=== PATIENT | female | born 1940 | race Caucasian/White ===

== ENCOUNTER 2022-12-08 09:46 | Outpatient (OUT) | payer MEDICARE, SELFPAY ==
--- NOTE | 2022-12-08 10:21 | US_ITS ---
[address] [address] Patient Name: ELGIN NORWOOD MRN: [id number] date: 1940 Sex: F Assigned Patient Location: US Current Patient Location: US Accession/Order Number: [id number] Exam Date: 12/08/2022 10:22 Report Date: 12/09/2022 06:56 At the request of: BEL OJEDA Procedure: US thyroid EXAMINATION: US thyroid HISTORY: Multinodular goiter E04.2 COMPARISON: No relevant comparison available. FINDINGS: RIGHT LOBE: Prior thyroidectomy. Stable 4 x 4 x 3 mm hyperechoic nodule within fossa. Lobe size: LEFT LOBE: Heterogeneous echotexture with slight increase in size of a 16 x 11 x 9 mm TR 4 nodule within mid body. Stable 3 x 2 x 2 mm TR 4 nodule within superior pole and stable 8 x 6 x 6 mm TR 3 nodule within inferior pole. Lobe size: 3.6 x 1.2 x 1.5 cm ISTHMUS: Heterogeneous echotexture with minimal thickening. Thickness: 4 mm IMPRESSION: 1. Right thyroidectomy and stable 4 mm nonspecific hyperechoic nodule or residual tissue within fossa. 2. Slight interval increase in size of a 16 mm TR 4 nodule within left lobe. Consider tissue sampling. Alternatively follow-up imaging in one year should be performed TR4 (moderately suspicious): If > 1.0 cm Follow-up ultrasound in 1, 2, 3, and 5 years. If > 1.5 cm fine needle aspiration (FNA). Electronically authenticated by: AMAYA GRAMAJO Date: 12/09/2022 06:56
== END 2022-12-08 09:47 ==
LOC: US 09:50
PROVIDERS: PCP Internal Medicine; Visit Provider Otolaryngology
DX: E04.2 Nontoxic multinodular goiter (principal)
CPT/HCPCS: 76536

== ENCOUNTER 2023-06-01 09:41 | Outpatient (OUT) | payer MEDICARE, SELFPAY ==
--- NOTE | 2023-06-01 09:51 | US_ITS ---
[address] [address] Patient Name: ELGIN NORWOOD MRN: [id number] date: 1940 Sex: F Assigned Patient Location: US Current Patient Location: US Accession/Order Number: [id number] Exam Date: 06/01/2023 09:55 Report Date: 06/01/2023 10:38 At the request of: BEL OJEDA Procedure: US thyroid EXAMINATION: US thyroid HISTORY: Multinodular Goiter E04.2 COMPARISON: 12/08/2022 on 05/29/2022 TECHNIQUE: Sonographic images of the thyroid gland were obtained. FINDINGS: The right thyroid lobe is surgically absent. Again demonstrated is a small area of hyperechogenicity in the right thyroid fossa measuring 4.7 x 3.3 x 2.2 mm, stable. The thyroid isthmus measures 3.5 mm, heterogeneous. No focal nodule. The left thyroid lobe measures 3.3 x 1.2 x 1.7 cm. Heterogeneous echotexture. 3 focal nodules one measuring over 1 cm 1.4 x 1.1 x 0.9 cm. Mixed solid and cystic, hypoechoic, wide, smooth margins, punctate calcifications. TR 4 US/US thyroid IMPRESSION: 1.4 cm left thyroid TR 4 nodule, stable from the prior exam, minimally enlarged from the May 2022 exam TI-RADS: The [employer] TI-RADS committee's white paper recommendations for thyroid lesions classified as TR4 (moderately suspicious) are listed below: > 1.0 cm. Follow-up ultrasound in 1, 2, 3, and 5 years. > 1.5 cm. FNA. J. Am Nikunj Radiol 2017;14:587-595. Electronically authenticated by: CARLOS SOOD Date: 06/01/2023 10:38
== END 2023-06-01 09:42 | disposition home or self-care (01) ==
LOC: US 09:41
PROVIDERS: PCP Internal Medicine; Visit Provider Otolaryngology
DX: E04.2 Nontoxic multinodular goiter (principal)
CPT/HCPCS: 76536

== ENCOUNTER 2023-08-02 11:21 | Observation (INO) | payer MEDICARE, SELFPAY ==
[2023-08-02] VITALS (9 sets, daily range): BP systolic 96–136; BP diastolic 54–75; PULSE 70–98; RESP 12–20; TEMP 36.1–37; O2SAT 95–98; BMI 34.1; BMI 30.4
--- NOTE | 2023-08-02 11:49 | CT_ITS ---
The [address] [address] Patient Name: ELGIN NORWOOD MRN: [id number] date: 1940 Sex: F Assigned Patient Location: ER Current Patient Location: ER Accession/Order Number: [id number] Exam Date: 08/02/2023 12:15 Report Date: 08/02/2023 13:35 At the request of: JORGE JEFFRIES Procedure: CT abdomen pelvis wo con CT ABDOMEN AND PELVIS WITHOUT CONTRAST: 08/02/2023 12:15 PM EST Clinical Data: constipation and urine retension Comparison: 02/29/2020 Unenhanced helically acquired data per protocol. The lack of IV contrast material hampers evaluation of the viscera, for adenopathy, and of the vasculature. The lack of oral contrast medium to some extent hampers evaluation of the bowel. All CT scans at this facility use dose modulation, iterative reconstruction, and/or weight based dosing when appropriate to reduce radiation dose to as low as reasonably achievable. FINDINGS: LOWER THORAX: There is atelectasis or scarring bilaterally. Mild amount of pericardial fluid anteriorly is again demonstrated. LIVER: No acute findings. SPLEEN: No acute findings. GB/BILIARY: Again, layering sludge or calculi. Gallbladder is not thickened. Biliary tree is not dilated. PANCREAS: No acute findings. ADRENALS: No acute findings. KIDNEYS/URETERS: Again, tiny right renal calculus. No hydronephrosis or hydroureter. VESSELS: No AAA. Again, significant amount of calcific plaque distal aorta extending into the common iliacs. Stent in the distal left common iliac is again present. ABDOMINAL NODES: No obvious adenopathy. PELVIC NODES: No obvious adenopathy. BLADDER: Contains a catheter. Small amount of fluid and air in the bladder. REPRODUCTIVE: Uterus is absent. Neither ovary is clearly discerned as a distinct structure. PERITONEUM: No free air. No free fluid. EXTRAPERITONEUM: Nonspecific modest stranding posterior to the supralevator rectum was not evident on the prior exam. The posterior margins of the supralevator rectum are not thickened. BOWEL: Nonspecific bowel gas pattern. No obvious obstruction. Fair amount of stool in in the supralevator rectum. Moderate amount of air and stool throughout much of the transverse colon. Small bowel is not distended. It does contain several air-fluid levels. Previous gastric surgery again demonstrated. The stomach contains a modest amount of air and fluid. Potential concentric thickening of the infra levator rectum.. Alternatively this is under distention . BODY WALL: Mesh work anteriorly in the midline and to the right of midline. The intra-abdominal wall is thin and lax. No ruiz hernia is apparent. BONES: No acute findings. OTHER: No acute findings. CT/CT abdomen pelvis wo con IMPRESSION: 1. Nonspecific bowel gas pattern without obvious obstruction. Serial imaging if indicated. 2. Potential circumferential thickening of the infra levator rectum. 3. There is modest nonspecific stranding posterior to the supralevator rectum. Supralevator rectum is not thickened. It does contain a moderate amount stool.. 4. Again, cholelithiasis or dense sludge in the gallbladder. No evidence of cholecystitis at CT. Electronically authenticated by: KENNETH HEBERT Date: 08/02/2023 13:35
--- NOTE | 2023-08-02 11:50 | ED.ABDPAIN1 ---
HPI - Abdominal Pain General Chief Complaint: Abdominal Pain Stated Complaint: CONSTIPATION Time Seen by Provider: 08/02/23 11:35 Source: patient and family Mode of arrival: Wheelchair Limitations: no limitations History of Present Illness HPI narrative: The patient is a poor historian and she is coming from home brought to us by her son who lives with her. The main complaint that she came with was the fact that she has not been able to urinate for the last few hours in addition to not having bowel movement for a while. The patient did not specify how long she has been constipated she was denying any nausea or vomiting or any abdominal pain. Her last meal was this morning with no difficulty swallowing and no nausea or vomiting. The patient upon presentation had distended bladder and she had a Menjivar catheter placed after 600 cc of urine detected on the scan No fever or chills the patient have a history of COPD and she mentioned that she have her baseline cough with noted to breathing and no sputum production. Related Data Home Medications Medication Instructions Recorded Confirmed alprazolam 0.25 mg tablet 0.25 mg PO .2 times per day PRN 08/02/23 08/02/23 anxiety aspirin 81 mg chewable tablet 81 mg PO DAILY 08/02/23 08/02/23 (Dalton Chewable Low Dose Aspirin) atorvastatin 40 mg tablet 40 mg PO DAILY 08/02/23 08/02/23 brexpiprazole 2 mg tablet (Rexulti) 2 mg PO DAILY 08/02/23 08/02/23 bupropion HCl (smoking deter) 150 150 mg PO .Q12hr 08/02/23 08/02/23 mg tablet,12 hr sustained-release(smoking deterrent) carvedilol 12.5 mg tablet 12.5 mg PO Q12H 08/02/23 08/02/23 duloxetine 60 mg capsule,delayed 60 mg PO DAILY 08/02/23 08/02/23 release furosemide 40 mg tablet 40 mg PO DAILY 08/02/23 08/02/23 gabapentin 100 mg capsule 200 mg PO Q12H 08/02/23 08/02/23 lisinopril 5 mg tablet 5 mg PO .Q24HR 08/02/23 08/02/23 loratadine 10 mg tablet 10 mg PO Q24H 08/02/23 08/02/23 Allergies Allergy/AdvReac Type Severity Reaction Status Date / Time No Known Drug Allergies Allergy Verified 08/02/23 11:28 Review of Systems ROS Status of ROS 10 or more systems reviewed and unremarkable except as noted in history and below PFSH [facility] Social History Smoking status: Former smoker Exam Narrative Exam Narrative: Nurses notes and vital signs reviewed and patient is not hypoxic. General: Well-appearing and in no apparent distress. Skin: Warm, dry, no pallor noted. No rash. Head: Normocephalic, atraumatic. Neck: Supple, non-tender. Eye: Pupils are equal, round and EOMI. No scleral icterus. Ears, Nose, Mouth, and Throat: TM are clear, no nasal mucosal hypertrophy. Oral mucosa is moist, no posterior oropharynx erythema, uvula is mid-line Cardiovascular: Regular Rate and Rhythm without murmur, gallop or rub. Respiratory: No accessory muscle use or respiratory distress. Lungs there is distant breathing sounds and the normal airway in the upper lung diehl Chest Wall: no tenderness Back: No midline thoracic or lumbar vertebral tenderness. No CVA tenderness Musculoskeletal: Chronic edema noted in both legs no redness no hotness no signs of infection or wounds. The patient have a bruise in the right aspect as well as the distal aspect of her thigh GI: Abdomen is soft, non-distended. Normal bowel sounds. No masses appreciated. No tenderness to palpation. No rebound, guarding, or rigidity noted. Neurological: A&O x4. No cranial nerve dysfunction observed. The patient have bilateral leg weakness It also noted that the patient rectal examination shows no fecal impaction Constitutional Vital Signs, click to edit/add: Last Vital Signs Temp 97.0 F L 08/02/23 11:29 Pulse 77 08/02/23 14:03 Resp 16 08/02/23 14:03 BP 117/64 08/02/23 14:03 Pulse Ox 97 08/02/23 14:03 O2 Del Method Room Air 08/02/23 12:29 Course Vital Signs Vital signs: Vital Signs Temperature 97.0 F L 08/02/23 11:29 Pulse Rate 98 H 08/02/23 11:29 Respiratory Rate 18 08/02/23 11:29 Blood Pressure 120/69 08/02/23 11:29 Pulse Oximetry 98 08/02/23 11:29 Oxygen Delivery Method Room Air 08/02/23 11:29 Temperature 97.0 F L 08/02/23 11:29 Pulse Rate 77 08/02/23 14:03 Respiratory Rate 16 08/02/23 14:03 Blood Pressure 117/64 08/02/23 14:03 Pulse Oximetry 97 08/02/23 14:03 Oxygen Delivery Method Room Air 08/02/23 12:29 MDM - Abdominal Pain MDM Narrative Medical decision making narrative: Upon arrival the patient had a Menjivar catheter placed because that she had 600+ of cc of urine in her bladder and the catheter ended up with 900 cc of urine The CBC and chemistry showed no acute significant pathology and the patient urinalysis shows no UTI CAT scan of the abdomen showed that the patient have constipation It was noted that the patient is very frail and have muscular deconditioning she need more than 1 person help to get to the bathroom as well as she needed that to get out of the car. According to the son she used to have home health care and that was very helpful right now she does not. She did had a fall not long time ago when she had a bruise to her right side but it was noted on examination that she have bruising to both sides which could be a sign of multiple falls or maybe 1 fall. Right now the patient does have constipation in addition to urinary retention but with the fact that she have muscular deconditioning and there is no safe discharge for this patient as she is not having enough home health care the patient will be admitted for further evaluation for home physical therapy and rehab Patient case discussed with and he agreed with above-mentioned plan Lab Data Labs: Lab Results 08/02/23 08/02/23 Range/Units 11:44 12:05 WBC 10.0 (4.0-11.0) 10^3/uL RBC 3.81 L (4.20-5.40) 10^6/uL Hgb 11.3 L (12.0-16.0) g/dL Hct 36.9 (36.0-48.0) % MCV 96.9 (81.0-99.0) fL MCH 29.7 (26.7-34.0) pg MCHC 30.6 (29.9-35.2) g/dL RDW 13.9 (11.0-15.0) % Plt Count 139 L (150-450) 10^3/uL MPV 10.6 (9.5-13.5) fL Neut % (Auto) 77.6 H (43.0-75.0) % Lymph % (Auto) 15.1 L (20.5-60.0) % [place] % (Auto) 4.8 (1.7-12.0) % Eos % (Auto) 1.6 (0.9-7.0) % Baso % (Auto) 0.6 (0.2-2.0) % Neut # (Auto) 7.7 H (1.4-6.5) 10^3/uL Lymph # (Auto) 1.5 (1.2-3.8) 10^3/uL [place] # (Auto) 0.5 (0.3-0.8) 10^3/uL Eos # (Auto) 0.2 (0.0-0.7) 10^3/uL Baso # (Auto) 0.1 (0.0-0.1) 10^3/uL Abs Immat Gran (auto) 0.03 (0.00-0.03) 10^3/uL Imm/Tot Granulo (auto) 0.3 (0.0-0.5) % Sodium 141 (136-145) mmol/L Potassium 4.1 (3.5-5.1) mmol/L Chloride 105 (98-107) mmol/L Carbon Dioxide 28.7 (21.0-32.0) mmol/L Anion Gap 11.4 BUN 12.0 (7.0-18.0) mg/dL Creatinine 1.08 H (0.55-1.02) mg/dL Est GFR ( Amer) 59 L (>=60) Est GFR (Non-Af Amer) 49 L (>=60) BUN/Creatinine Ratio 11.1 Glucose 110 H (74-106) mg/dL Calcium 8.9 (8.5-10.1) mg/dL Total Bilirubin 0.5 (0.2-1.0) mg/dL AST 15 (15-37) U/L ALT 14 (14-59) U/L Alkaline Phosphatase 92 (46-116) U/L Total Protein 6.4 (6.4-8.2) g/dL Albumin 2.9 L (3.4-5.0) g/dL Globulin 3.5 g/dL Albumin/Globulin Ratio 0.8 Urine Color Lt. yellow (YELLOW) Urine Clarity Clear (CLEAR) Urine pH 5.5 (5.0-9.0) Ur Specific [place] 1.010 (1.005-1.025) Urine Protein Negative (NEG/TRACE) mg/dL Urine Glucose (UA) Negative (NEGATIVE) mg/dL Urine Ketones Negative (NEGATIVE) mg/dL Urine Occult Blood Negative (NEGATIVE) Urine Nitrite Negative (NEGATIVE) Urine Bilirubin Negative (NEGATIVE) Urine Urobilinogen 0.2 (0.2-1.0) EU/dL Ur Leukocyte Esterase Negative (NEGATIVE) Discharge Plan Discharge Chief Complaint: Abdominal Pain Clinical Impression: Muscular deconditioning, Insufficient home care support, Acute retention of urine Constipation Qualifiers: Constipation type: unspecified constipation type Qualified Code(s): K59.00 - Constipation, unspecified Patient Disposition: Admitted as Observation Time of Disposition Decision: 14:14 Condition: Good
--- OUTSIDE RECORDS SUMMARY | 2023-08-02 11:54 | XMS_ITS | CCD ---
Author Name Unknown Address [id number] [place] [address] Organization [facility] Care Team Providers Care Swage Toolsetter Name Role Phone Unavailable Unavailable Libra, Dr. Durbin Attending Unavaila tere Landers II, Ysosi Meyer [facility] Care Unavail able Libra, Dr. Durbin Referring Unavaila tere Smyth, Dr. Durbin Attending Unavaila tere Landers II, Yossi Meyer Primary Care Unavail able CARMEN ., TANYA Attending Unavailable CARMEN ., TANYA Admitting Unavailable GRECHNY ., PHILIP HERNANDEZ Consulting Unavailabl e JORDAN, DR TERRAZAS Primary Care Unavailable AHOTKAELA Consulting Unavailable JUAN M ., STELLA Consulting Unavailable SISTER, SYLVESTER Consulting Unavailable CARMEN ., TANYA Consulting Unavailable PAVEL SANCHEZ Consulting Unavailable ALLISON MCCALL Consulting Unavailable JORDAN, DR TERRAZAS Consulting Unavailable JORDAN, DR TERRAZAS Primary Care Unavailable JORDAN, DR TERRAZAS Attending Unavailable JORDAN, DR TERRAZAS Admitting Unavailable AVILA, DR AMAYA [place] Consulting Unavailable JORDAN, DR TERRAZAS Consulting Unavailable JORDAN, DR TERRAZAS Primary Care Unavailable JORDAN, DR TERRAZAS Attending Unavailable JORDAN, DR TERRAZAS Admitting Unavailable BARRIE, DR CARLOS Mcghee Consulting Unavailable TIMMIS, ARACELI Consulting Unavailable JORDAN, DR TERRAZAS Primary Care Unavailable TIMMISARACELI Attending Unavailable TIMMIS, ARACELI Admitting Unavailable ZIEBER, DR AMAYA [place] Consulting Unavailable TIMMIS, ARACELI Consulting Unavailable JORDAN, DR TERRAZAS Primary Care Unavailable TIMMIS, ARACELI Attending Unavailable TIMMIS, ARACELI Admitting Unavailable BARRIE, DR CARLOS Mcghee Consulting Unavailable KARYN WASHINGTON Consulting Unavailable JORDAN, DR TERRAZAS Primary Care Unavailable HEMYING, DR JOSE EDUARDO Bryant Attending Unavailable HEMMER, DR JOSE EDUARDO Bryant Admitting Unavailable DR JOSE EDUARDO MASON Consulting Unavailable LAYNE TERRAZAS Consulting Unavailable LAYNE TERRAZAS Attending Unavailable LAYNE TERRAZAS Admitting Unavailable DR YOSSI LANDERS Primary Care Unavailable DUANE BILLINGSLEY Consulting Unavailable AMAYA FRENCH Consulting Unavailable VIKY WILLIAMSON Consulting Unavailable REED LYNNE Consulting Unavailable ARACELI OJEDA Attending Unavailable YOSSI LANDERS Attending Unavailable Yossi Landers MD Primary Care Provider Yossi Landers MD Unavailable Allergies Allergy Classification Reported Allergen(s) Allergy Type Date of Onset Reaction(s) Facility (6 sources) Naproxen; 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: [Aleve TABS] Drug Allergy 12-13-2020 Hives [facility] [employer] DO Work Phone: (5 sources) rofecoxib; 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: [Vioxx] Drug Allergy Anaphylaxis [place] [id number] DO Work Phone: (1 source) Benztropine Drug Allergy 06-14-2021 [facility] (1 source) Naproxen Drug Allergy 03-25-2013 [facility] (1 source) Naproxen Drug Allergy 06-14-2021 [facility] (1 source) rofecoxib Drug Allergy 03-25-2013 [facility] (1 source) Benztropine Drug Allergy 11-30-2019 Other [facility] (1 source) Benztropine Drug Allergy 11-30-2019 [facility] Work Phone: Medications Current Medications Medication Drug Class(es) Dates Sig (Normalized) Sig (Original) acetaminophen 325 mg / HYDROcodone bitartrate 7.5 mg oral tablet (6 sources) Opioid Agonist Start: 07-01-2023 take 1 tablet by mouth every six hours for pain HYDROcodone-acetami nophen ([place]) 7.5-325 MG tablet Indications: Degenerative lumbar spinal stenosis Take 1 tablet by mouth every 6 (six) hours if needed for severe pain 120 tablet 0 07/01/2023 Active Start: 10-14-2021 take 1 tablet by sky three times daily as needed for pain HYDROcodone-Acetaminophen 7.5-325 MG Ora l Tablet TAKE 1 TABLET 3 TIMES DAILY NEEDED FOR PAIN. Quantity: 0 Refills: 0 Ordered: 14-Oct-2021 DO Start : 14-Oct-2021 Active [id number] 200 actuat albuterol 0.09 mg/actuat metered dose inhaler (2 sources) beta2-Adrenergic Agonist albuter ol (2.5 MG/3ML) 0.083% nebulizer solution Take 2.5 mg by nebulization every 8 (eight) hours if needed. 0 Active take 2 puff(s) by in halation every four hours albuterol HFA (ProAir HFA) 90 mcg/act inhaler Inhale 2 puffs every 4 (four) hours if needed. 0 Active ALPRAZolam 0.25 mg oral tablet (6 sources) Benzodiazepine Start: 07-01-2023 take 1 tablet by mouth twice daily as needed for anxiety ALPRAZolam (Xanax) 0.25 MG tablet Indications: Depression with anxiety Take 1 tablet (0.25 mg) by mouth 2 (two) times a day as needed for anxiety 60 tablet 3 07/01/2023 Active Start: 10-07-2021 take 1 tablet by ksy th twice daily as needed for anxiety ALPRAZolam 0.25 MG Oral Tablet TAKE 1 TABLET BY MOUTH TWICE DAILY NEEDED FOR ANXIETY Quantity: 60 Refills: 0 Ordered: 11-Oct-2021 DO Start : 07-Oct-2021 Active aspirin 81 mg delayed release oral tablet (6 sources) Platelet Aggregation Inhibitor, Nonsteroidal Anti-inflammatory Drug take 1 tablet by mouth once daily aspirin 81 MG EC tablet Take 81 mg by mouth 1 (one) time each day at the same time. 0 Active atorvastatin 40 mg oral tablet (6 sources) HMG-CoA Reductase Inhibitor Start: 023 End: 024 take 1 tablet by mouth in the morning atorvastatin (Lipitor) 40 MG tablet Indications: Mixed hyperlipidemia (CMS/HCC) Take 1 tablet (40 mg) by mouth in the morning. 90 tablet 3 11/24/2022 11/24/2023 Active Start: 08-21-2021 take 1 tablet by sky th once daily Atorvastatin Calcium 40 MG Oral Tablet TAKE 1 TABLET BY MOUTH EVERY DAY Quantity: 90 Refills: 3 Ordered: 15-Oct-2021 Xochitl Smyth MD Start : 21-Aug-2021 Active Blood Glucose Monitoring Suppl (ONE TOUCH ULTRA 2) w/Device kit (1 source) Start: 11-05-2022 Blood Glucose Monitoring Suppl (ONE TOUCH ULTRA 2) w/Device kit Inject under the skin 1 (one) time each day. 0 11/05/2022 Active brexpiprazole 2 mg oral tablet (6 sources) Atypical Antipsychotic Start: 11-24-2022 End: 11-24-2023 take 1 tablet by mouth in the morning Brexpiprazole (Rexulti) 2 MG tablet Indications: Depression with anxiety Take 2 mg by mouth in the morning. 90 tablet 3 11/24/2022 11/24/2023 Active Start: 08-17-2021 take 1 tablet by sky th once daily Rexulti 2 MG Oral Tablet TAKE 1 TABLET BY MOUTH EVERY DAY FOR 90 DAYS Quantity: 90 Refills: 0 Ordered: 19-Aug-2021 DO Start : 17-Aug-2021 Active smoking cessation 12 hr buPROPion hydrochloride 150 mg extended release oral tablet (6 sources) Aminoketone Start: 11-24-2022 End: 11-24-2023 take 1 tablet by mouth every twelve hours in the morning buPROPion (Zyban) 150 MG 12 hr tablet Indications: Depression with anxiety Take 1 tablet (150 mg) by mouth in the morning and 1 tablet (150 mg) before bedtime. 180 tablet 3 11/24/2022 11/24/2023 Active Start: 05-01-2021 take 1 tablet by sky th twice daily buPROPion HCl ER (Smoking Det) 150 MG Oral Tablet Extended Release 12 Hour TAKE 1 TABLET BY MOUTH TWICE A DAY Quantity: 180 Refills: 0 Ordered: 01-Aug-2021 DO Start : 01-May-2021 Active carvedilol 12.5 mg oral tablet (6 sources) alpha-Adrenergic Mayco, beta-Adrenergic Mayco Start: 01-08-2023 take 1 tablet by mouth twice daily at mealtime carvedilol (Coreg) 12.5 MG tablet Indications: 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) TAKE 1 TABLET BY MOUTH TWICE A DAY WITH FOOD 180 tablet 3 01/08/2023 Active Start: 01-14-2021 take 1 tablet by sky th twice daily at mealtime Carvedilol 12.5 MG Oral Tablet take 1 tablet by mouth twice a day with food Quantity: 180 Refills: 3 Ordered: 15-Oct-2021 Xochitl Smyth MD Start : 14-Jan-2021 Active DULoxetine 60 mg delayed release oral capsule (6 sources) Serotonin and Norepinephrine Reuptake Inhibitor Start: 11-24-2022 End: 11-24-2023 take 1 capsule by mouth in the morning DULoxetine (Cymbalta) [address] capsule Indications: Depression with anxiety Take 1 capsule (60 mg) by mouth in the morning. 90 capsule 3 11/24/2022 11/24/2023 Active Start: 07-30-2021 take 1 capsule by [facility] once daily DULoxetine HCl - 60 MG Oral Capsule Delayed Release Particles TAKE 1 CAPSULE BY MOUTH EVERY DAY Quantity: 90 Refills: 0 Ordered: 30-Jul-2021 DO Start : 30-Jul-2021 Active eye vitamin supplement (Ocuvite Eye Health Formula) capsule (1 source) take 1 capsule by mouth in the morning eye vitamin supplement (Ocuvite Eye Health Formula) capsule Take 1 capsule by mouth in the morning. 0 Active fluticasone propionate 0.05 mg/actuat metered dose nasal spray (1 source) Corticosteroid Start: 3 End: 4 take 1 spray(s) nasal route in the morning fluticasone (Flonase Allergy Relief) 50 MCG/ACT nasal spray Indications: Chronic allergic rhinitis Administer 1 spray into each nostril in the morning. 16 g 11 11/24/2022 11/24/2023 Active gabapentin 100 mg oral capsule (6 sources) Anti-epileptic Agent Start: 4 End: 5 take 2 capsules by mouth in the morning gabapentin (Neurontin) 100 MG capsule Indications: Type 2 diabetes mellitus with diabetic neuropathy, without long-term current use of insulin (CMS/HCC) Take 2 capsules (200 mg) by mouth in the morning and 2 capsules (200 mg) before bedtime. 360 capsule 3 07/24/2023 07/23/2024 Active Start: 10-18-2020 take 2 capsules by out twice daily Gabapentin 100 MG Oral Capsule TAKE 2 CAPSULES TWICE A DAY Quantity: 360 Refills: 0 Ordered: 24-Richi-2022 DO Start : 18-Oct-2020 Active ipratropium bromide 0.042 mg/actuat metered dose nasal spray (1 source) Anticholinergic take 2 spray(s) nasal route in the morning, then take 2 spray(s) nasal route in the evening, then take 2 spray(s) nasal route at bedtime ipratropium (Atrovent) 0.06 % nasal spray Administer 2 sprays into each nostril in the morning and 2 sprays in the evening and 2 sprays before bedtime. 0 Active levothyroxine sodium 0.1 mg oral tablet (6 sources) l-Thyroxine Start: End: take 1 tablet by mouth before mealtime levothyroxine (Synthroid, Levoxyl) 100 MCG tablet Indications: Acquired hypothyroidism (CMS/HCC) Take 1 tablet (100 mcg) by mouth in the morning. Take before meals. 90 tablet 3 11/24/2022 11/24/2023 Active Start: 08-12-2021 take 1 tablet by sky th once daily Levothyroxine Sodium 100 MCG Oral Tablet TAKE 1 TABLET BY MOUTH EVERY DAY Quantity: 90 Refills: 0 Ordered: 12-Aug-2021 DO Start : 12-Aug-2021 Active lisinopril 5 mg oral tablet (7 sources) Angiotensin Converting Enzyme Inhibitor Start: 07-27-2023 take 1 tablet by mouth in the morning lisinopril 5 MG tablet Indications: Essential hypertension (CMS/HCC) Take 1 tablet (5 mg) by mouth in the morning. 100 tablet 3 07/27/2023 Active Start: 11-24-2022 End: 07-27-2023 take 1 tablet by mouth in the morning lisinopril 5 MG tablet Indications: Essential hypertension (CMS/HCC) Take 1 tablet (5 mg) by mouth in the morning. 90 tablet 3 11/24/2022 07/27/2023 Discontinued Start: 05-12-2021 take 1 tablet by sky th once daily Lisinopril 5 MG Oral Tablet TAKE 1 TABLET BY MOUTH EVERY DAY Quantity: 90 Refills: 3 Ordered: 15-Oct-2021 Xochitl Smyth MD Start : 12-May-2021 Active loratadine 10 mg oral tablet (6 sources) Start: 04-09-2023 take 1 tablet by mouth once daily loratadine (Claritin) 10 MG tablet Indications: Allergic rhinitis, unspecified TAKE 1 TABLET BY MOUTH EVERY DAY 90 tablet 3 04/09/2023 Active Start: 04-15-2021 take 1 tablet by sky th once daily Loratadine 10 MG Oral Tablet TAKE 1 TABLET BY MOUTH EVERY DAY Quantity: 90 Refills: 0 Ordered: 11-Oct-2021 DO Start : 15-Apr-2021 Active loratadine (Claritin) 5 mg split tablet (1 source) Start: 07-05-2022 take 2 tablets by mouth in the morning loratadine (Claritin) 5 mg split tablet Take 10 mg by mouth in the morning. 0 07/05/2022 Active meclizine hydrochloride 12.5 mg oral tablet (1 source) Antiemetic Start: 09-10-2017 take 1 tablet by mouth three times daily as needed for dizziness meclizine (Antivert) 12.5 MG tablet Take 12.5 mg by mouth 3 (three) times a day as needed for dizziness. 0 09/10/2017 Active Multiple Vitamins-Minerals (OCUVITE ADULT 50+ PO) (1 source) Multiple Vitamins-Minerals (OCUVITE ADULT 50+ PO) Take by mouth 1 (one) time each day. 0 Active nitroglycerin 0.4 mg sublingual tablet (1 source) Nitrate Vasodilator nitroglycerin (Nitrostat) 0.[address] 0.4 mg under the tongue every 5 (five) minutes if needed. 0 Active nystatin 100 unt/mg topical ointment (1 source) Polyene Antifungal nystatin (Mycostatin) ointment every 12 (twelve) hours. 0 Active omeprazole 40 mg delayed release oral capsule (1 source) Proton Pump Inhibitor Start: 12-10-2022 omeprazole (PriLOSEC) [address] capsule Indications: Gastroesophageal reflux disease without esophagitis TAKE 1 CAPSULE BY MOUTH EVERY DAY 30 MINUTES BEFORE MORNING MEAL FOR 30 DAYS 90 capsule 3 12/10/2022 Active polyethylene glycol 3350 11213 mg powder for oral solution (1 source) Osmotic Laxative Start: 11-24-2022 End: 11-24-2023 polyethylene glycol, PEG, 3350 (MiraLax) 17 GM/SCOOP powder Indications: Chronic constipation Take 17 g by mouth in the morning. 1530 g 3 11/24/2022 11/24/2023 Active microencapsulated potassium chloride 20 meq extended release oral tablet (6 sources) Start: 11-24-2022 End: 11-24-2023 take 1 tablet by mouth in the morning, then take 1 tablet by mouth in the evening, then take 1 tablet by mouth at bedtime potassium chloride CR (KLOR-CON) 20 MEQ ER tablet Indications: 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) Take 1 tablet (20 mEq) by mouth in the morning and 1 tablet (20 mEq) in the evening and 1 tablet (20 mEq) before bedtime. 270 tablet 3 11/24/2022 11/24/2023 Active Start: 09-13-2021 take 1 tablet by sky th once daily Klor-Con M20 20 MEQ Oral Tablet Extended Release TAKE 1 TABLET DAILY. Quantity: 0 Refills: 0 Ordered: 13-Sep-2021 DO Start : 13-Sep-2021 Active Start: 09-13-2021 take 1 tablet by sky th once daily Klor-Con M20 20 MEQ Oral Tablet Extended Release TAKE 1 TABLET DAILY. Quantity: 0 Refills: 0 Ordered: 13-Sep-2021 DO Start : 13-Sep-2021 Active Completed/Discontinued Medications Medication Drug Class(es) Dates Sig (Normalized) Sig (Original) ascorbic acid 113 mg / beta carotene 7160 mg / cuprous oxide 0.4 mg / dl-alpha tocopheryl acetate 100 unt / zinc oxide 17.4 mg oral tablet (5 sources) Vitamin C Ocuvite PreserVision TABS TAKE 1 TABLET DAILY. Quantity: 0 Refills: 0 Ordered: 15-Oct-2021 DO Active Black Cohosh Extract (5 sources) Black Cohosh CAP S TAKE DIRECTED. Quantity: 0 Refills: 0 Ordered: 15-Oct-2021 DO Active 60 actuat fluticasone propionate 0.25 mg/actuat / salmeterol 0.05 mg/actuat dry powder inhaler (6 sources) Corticosteroid, beta2-Adrenergic Agonist Start: 10-18-2020 take 1 puff(s) by mouth twice daily Advair Diskus 250-50 MCG/ACT Inhalation Aerosol Powder Breath Activated TAKE 1 PUFF BY MOUTH TWICE A DAY Quantity: 180 Refills: 0 Ordered: 29-Jul-2021 DO Start : 18-Oct-2020 Active take 1 puff(s) by in halation in the morning fluticasone-salmeterol (Advair Diskus) 2 50-50 MCG/DOSE diskus inhaler Inhale 1 puff in the morning and 1 puff before bedtime. 0 Active furosemide 40 mg oral tablet (6 sources) Loop Diuretic Start: 03-04-2021 take 1 tablet by mouth once daily Furosemide 40 MG Oral Tablet TAKE 1 TABLET BY MOUTH EVERY DAY Quantity: 90 Refills: 0 Ordered: 13-Aug-2021 DO Start : 04-Mar-2021 Active linaclotide 0.29 mg oral capsule (4 sources) Guanylate Cyclase-C Agonist Start: 01-02-2022 take 1 capsule by mouth once daily Linzess 290 MCG Oral Capsule TAKE 1 CAPSULE BY MOUTH EVERY DAY FOR 90 DAYS Quantity: 90 Refills: 0 Ordered: 02-Jan-2022 DO Start : 02-Jan-2022 Active Problems Active Problems Problem Classification Problem Date Documented Date Episodic/Chronic Allergic reactions (1 source) Allergy status to other drugs, medicaments and biological substances status; 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: [ALLERGY STATUS OTH RX MED AND BIO SUBST] Onset: 10-23-2022 Episodic Anxiety disorders (2 sources) Anxiety disorder, unspecified; 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: [Mixed anxiety and depressive disorder] Onset: 10-23-2022 11-04-2022 Chronic Chronic kidney disease (1 source) Chronic kidney disease, unspecified; 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: [CHRONIC KIDNEY DISEASE UNSPECIFIED] Onset: 08-25-2022 Chronic Chronic obstructive pulmonary disease and bronchiectasis (8 sources) Chronic obstructive lung disease; 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: [Chronic airway obstruction, not elsewhere classified] Onset: 07-16-2016 Resolved: 12-14-2022 11-04-2022 Chronic Complications of surgical procedures or medical care (1 source) Postprocedural hypothyroidism; 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: [POSTPROCEDURAL HYPOTHYROIDISM] Onset: 08-25-2022 Chronic Congestive heart failure; nonhypertensive (4 sources) Heart failure, unspecified; 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: [Chronic combined systolic and diastolic heart failure] Onset: 04-30-2015 Resolved: 12-14-2022 11-04-2022 Chronic Coronary atherosclerosis and other heart disease (8 sources) Disorder of coronary artery; 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: [Coronary atherosclerosis of unspecified type of vessel, yurok or graft] Onset: 04-14-2022 11-04-2022 Chronic Diabetes mellitus with complications (5 sources) Type 2 diabetes mellitus with diabetic chronic kidney disease; 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: [Type 2 diabetes mellitus with diabetic peripheral angiopathy without gangrene] Onset: 02-23-2019 11-04-2022 Chronic Diabetes mellitus without complication (5 sources) Diabetes mellitus; 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: [Diabetes mellitus without mention of complication, type II or unspecified type, not stated as uncontrolled] Chronic Disorders of lipid metabolism (7 sources) Hyperlipidemia; 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: [Other and unspecified hyperlipidemia] Onset: 10-23-2022 11-04-2022 Chronic E Codes: Fall (2 sources) Unspecified fall, initial encounter; 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: [Fall on same level from slipping, tripping and stumbling with subsequent striking against unspecified object, initial encounter] Onset: 08-25-2022 Episodic Esophageal disorders (6 sources) Gastro-esophageal reflux disease without esophagitis; 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: [Gastroesophageal reflux disease] Onset: 12-05-2021 Chronic Essential hypertension (7 sources) Hypertensive disorder; 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: [Unspecified essential hypertension] Onset: 11-04-2022 07-27-2023 Chronic Hypertension with complications and secondary hypertension (3 sources) 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 4 chronic kidney disease, or unspecified chronic kidney disease; 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: [Hypertensive chronic kidney disease with stage 1 through stage 4 chronic kidney disease, or unspecified chronic kidney disease] Onset: 08-25-2022 11-04-2022 Chronic Menopausal disorders (1 source) Hormone replacement therapy; 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: [HORMONE REPLACEMENT THERAPY] Onset: 10-23-2022 Episodic Mood disorders (1 source) Recurrent major depressive episodes, moderate ; 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: [Major depressive disorder, recurrent, moderate] Onset: 11-04-2022 11-04-2022 Chronic Mood disorders (1 source) Mood disorders; 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: [DEPRESSION UNSPECIFIED] Onset: 10-23-2022 Occlusion or stenosis of precerebral arteries (7 sources) Bilateral stenosis of carotid arteries; 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: [Occlusion and stenosis of carotid artery without mention of cerebral infarction] Onset: 04-14-2022 11-04-2022 Chronic Open wounds of head; neck; and trunk (5 sources) Laceration without foreign body of other part of head, initial encounter; 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: [LAC W/O FB OTH PART HEAD INIT ENC] Onset: 08-24-2022 Episodic Osteoarthritis (4 sources) Unspecified osteoarthritis, unspecified site; 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: [Osteoarthritis of multiple joints ] Onset: 08-25-2022 11-04-2022 Chronic Other aftercare (1 source) 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; 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: [GARDENING INSTRUCTOR CURRENT USE OF ASPIRIN] Onset: 10-23-2022 Episodic Other aftercare (1 source) Other long lines operator (current) drug therapy; 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: [OTH JAIL CURRENT DRUG THERAPY] Onset: 10-23-2022 Episodic Other aftercare (1 source) 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) use of inhaled steroids; 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: [JAIL USE OF INHALED STEROIDS] Onset: 10-23-2022 Episodic Other and ill-defined heart disease (1 source) Left ventricular hypertrophy; 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: [Cardiomegaly] Onset: 11-04-2022 11-04-2022 Chronic Other and ill-defined heart disease (1 source) Cardiomegaly; 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: [Cardiomegaly] Onset: 04-30-2015 12-14-2022 Chronic Other circulatory disease (1 source) Peripheral vascular angioplasty status with implants and grafts; 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: [PERIPH VASC ANGPLSTY STAT IMPL AND GFT] Onset: 10-23-2022 Chronic Other circulatory disease (4 sources) Other specified symptoms and signs involving the circulatory and respiratory systems; 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: [OTH SPEC SX SIGNS INVLV CIRC RS] Onset: 10-15-2022 Episodic Other circulatory disease (1 source) Hypotension, unspecified; 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: [HYPOTENSION UNSPECIFIED] Onset: 10-23-2022 Episodic Other diseases of bladder and urethra (1 source) Overactive bladder; 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: [Overactive bladder] Onset: 11-04-2022 11-04-2022 Chronic Other diseases of veins and lymphatics (1 source) Lymphedema, not elsewhere classified; 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: [LYMPHEDEMA NOT ELSEWHERE CLASSIFIED] Onset: 10-23-2022 Chronic Other hereditary and degenerative nervous system conditions (1 source) Impaired cognition; 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: [Mild cognitive impairment, so stated] Onset: 11-04-2022 11-04-2022 Chronic Other lower respiratory disease (5 sources) Dyspnea; 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: [Other respiratory abnormalities] Episodic Other lower respiratory disease (1 source) Personal history of pneumonia (recurrent); 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: [PERSONAL HX OF PNEUMONIA RECURRENT] Onset: 10-23-2022 Episodic Other nervous system disorders (1 source) Encephalopathy, unspecified; 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: [ENCEPHALOPATHY UNSPECIFIED] Onset: 10-23-2022 Chronic Other nervous system disorders (1 source) Neuropathy; 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: [Polyneuropathy, unspecified] Onset: 11-04-2022 11-04-2022 Chronic Other nutritional; endocrine; and metabolic disorders (5 sources) Severe obesity; 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: [Morbid obesity] Chronic Other nutritional; endocrine; and metabolic disorders (1 source) Body mass index 30+ - obesity; 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: [Obesity, unspecified] Onset: 11-04-2022 11-04-2022 Chronic Other upper respiratory disease (1 source) Allergic rhinitis; 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: [Allergic rhinitis, unspecified] Onset: 11-04-2022 11-04-2022 Chronic Gogo-; endo-; and myocarditis; cardiomyopathy (except that caused by tuberculosis or sexually transmitted disease) (7 sources) Cardiomyopathy; 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: [Other primary cardiomyopathies] Onset: 11-11-2021 11-04-2022 Chronic Peripheral and visceral atherosclerosis (2 sources) Peripheral vascular disease, unspecified; 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: [Peripheral vascular disease] Onset: 08-25-2022 11-04-2022 Chronic Pneumonia (except that caused by tuberculosis or sexually transmitted disease) (1 source) Pneumonia, unspecified organism; 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: [PNEUMONIA UNSPECIFIED ORGANISM] Onset: 10-23-2022 Episodic Residual codes; unclassified (2 sources) Swelling - edema - symptom; 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: [Edema] Episodic Residual codes; unclassified (3 sources) Edema; 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: [Edema] Episodic Residual codes; unclassified (1 source) Acquired absence of both cervix and uterus; 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: [ACQUIRED ABSENCE BOTH CERVIX AND UTERUS] Onset: 10-23-2022 Episodic Residual codes; unclassified (1 source) Other specified postprocedural states; 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: [OTH SPECIFIED POSTPROCEDURAL STATES] Onset: 10-23-2022 Episodic Residual codes; unclassified (1 source) Family history of diabetes mellitus; 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: [FAMILY HISTORY OF DIABETES MELLITUS] Onset: 10-23-2022 Episodic Residual codes; unclassified (1 source) Family history of ischemic heart disease and other diseases of the circulatory system; 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: [FAM HX ISCHEMIC HRT DZ OTH DZ CIRC] Onset: 10-23-2022 Episodic Residual codes; unclassified (1 source) Family history of malignant neoplasm of ovary; 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: [FAM HX MALIGNANT NEOPLASM OVARY] Onset: 10-23-2022 Episodic Retinal detachments; defects; vascular occlusion; and retinopathy (1 source) Exudative age-related macular degeneration; 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: [Exudative age-related macular degeneration, unspecified eye, stage unspecified] Onset: 11-04-2022 11-04-2022 Chronic Thyroid disorders (12 sources) Hypothyroidism, unspecified; 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: [Nontoxic multinodular goiter] Onset: 01-07-2022 Chronic Unclassified (1 source) CHRN KIDNEY DISEASE STG 3 UNSP; 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: [CHRN KIDNEY DISEASE STG 3 UNSP] Onset: 10-23-2022 Unclassified (1 source) CONTACT W/AND (SUSP) EXPOS COVID-19; 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: [CONTACT W/AND (SUSP) EXPOS COVID-19] Onset: 10-23-2022 Past or Other Problems Problem Classification Problem Date Documented Da te Episodic/Chronic Other connective tissue disease (1 source) Extrapyramidal sign; 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: [Other symptoms and signs involving the nervous system] Onset: 11-04-2022 11-04-2022 Episodic Other gastrointestinal disorders (1 source) Chronic constipation; 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: [Other constipation] Onset: 11-04-2022 11-04-2022 Episodic Other lower respiratory disease (1 source) Dyspnea, unspecified; 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: [Dyspnea, unspecified] Onset: 11-11-2021 Episodic Other nervous system disorders (1 source) Ataxic gait; 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] Onset: 11-04-2022 11-04-2022 Episodic Other nervous system disorders (1 source) Ataxia; 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: [Ataxia, unspecified] Onset: 10-23-2017 12-14-2022 Episodic Other nutritional; endocrine; and metabolic disorders (1 source) Morbid obesity; 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: [Morbid (severe) obesity due to excess calories] Onset: 07-04-2019 Resolved: 12-14-2022 12-14-2022 Chronic Other skin disorders (4 sources) Localized swelling, mass and lump, neck; 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: [LOCALIZED SWELLING MASS AND LUMP NECK] Onset: 12-30-2021 Episodic Screening and history of mental health and substance abuse codes (7 sources) Ex-smoker; 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: [Personal history of tobacco use] Onset: 08-15-2017 Resolved: 12-14-2022 12-14-2022 Episodic Comment on above: quit 1996, 2ppd; Spondylosis; intervertebral disc disorders; other back problems (1 source) Degenerative lumbar spinal stenosis; 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: [Spinal stenosis, lumbar region without neurogenic claudication] Onset: 11-04-2022 11-04-2022 Episodic Results Test Name Value Interpretation Reference Range Facility CORTISOL FREE, SERUMon 10-24 Cortisol, Free Dialysis, LCMS 0.462 ug/dL Normal [facility] Comment on above: Result Comment: Thes e tests were developed and their performance characteristics determined by [employer]. They have not been cleared or approved by the Food and Drug Administration. Reference Range: 8 AM 0.10 - 1.20 4 PM 0.042 - 0.872 Performed By: #### E RUR #### [facility] [address] [place] [address] Dr. Soila Pastor CBC AUTO DIFFon 10-16-2022 BASO # 0.0 103/ul Normal 0.0-0.1 [facility] Comment on above: Performed By: #### C BC #### [facility] [address] [place] [address] Dr. Soila Pastor Basophils/100 WBC (Bld) 0.4 % Normal 0.2-2.0 [facility] Comment on above: Performed By: #### C BC #### [facility] [address] [place] [address] Dr. Soila Pastor EO # 0.1 103/ul Normal 0.0-0.7 [facility] Comment on above: Performed By: #### C BC #### [facility] [address] [place] [address] Dr. Soila Pastor Eosinophils/100 WBC (Bld) 1.0 % Normal 0.9-7.0 [facility] Comment on above: Performed By: #### C BC #### [facility] [address] [place] [address] Dr. Soila Pastor Erythrocyte distribution width (RBC) [Ratio] 13.4 % Normal 11.0-15.0 [facility] Comment on above: Performed By: #### C BC #### [facility] [address] [place] [address] Dr. Soila Pastor Hematocrit (Bld) [Volume fraction] 34.7 % Critically low 36.0-48.0 [facility] Comment on above: Performed By: #### C BC #### [facility] [address] [place] [address] Dr. Soila Pastor Hemoglobin (Bld) [Mass/Vol] 10.8 g/dL Critically low 12.0-16.0 [facility] Comment on above: Performed By: #### C BC #### [facility] [address] [place] [address] Dr. Soila Pastor IG # 0.03 10e3/ul Normal 0.00-0.03 [facility] Comment on above: Performed By: #### C BC #### [facility] [address] [place] [address] Dr. Soila Pastor IG % 0.4 % Normal 0.0-0.5 [facility] Comment on above: Performed By: #### C BC #### [facility] [address] [place] [address] Dr. Soila Pastor LYMPH # 1.7 103/ul Normal 1.2-3.8 [facility] Comment on above: Performed By: #### C BC #### [facility] [address] [place] [address] Dr. Soila Pastor Lymphocytes/100 WBC (Bld) 22.1 % Normal 20.5-60.0 [facility] Comment on above: Performed By: #### C BC #### [facility] [address] [place] [address] Dr. Soila Pastor MANUAL DIFF REQ NO Normal [facility] Comment on above: Performed By: #### C BC #### [facility] [address] [place] [address] Dr. Soila Pastor MCH (RBC) [Entitic mass] 30.0 pg Normal 26.7-34.0 [facility] Comment on above: Performed By: #### C BC #### [facility] [address] [address] [address] Soila Pastor MCHC (RBC) [Mass/Vol] 31.1 g/dL Normal 29.9-35.2 [facility] Comment on above: Performed By: #### C BC #### [facility] [address] [address] [address] Soila Pastor MCV (RBC) [Entitic vol] 96.4 fL Normal 81.0-99.0 [facility] Comment on above: Performed By: #### C BC #### [facility] [address] [address] [address] Soila Pastor MONO # 0.5 103/ul Normal 0.3-0.8 [facility] Comment on above: Performed By: #### C BC #### [facility] [address] [address] [address] Soila Pastor Monocytes/100 WBC (Bld) 6.9 % Normal 1.7-12.0 [facility] Comment on above: Performed By: #### C BC #### [facility] [address] [address] [address] Soila Pastor NEUT # 5.4 103/ul Normal 1.4-6.5 [facility] Comment on above: Performed By: #### C BC #### [facility] [address] [address] [address] Soila Pastor Neutrophils/100 WBC (Bld) 69.2 % Normal 43.0-75.0 [facility] Comment on above: Performed By: #### C BC #### [facility] [address] [address] [address] Soila Pastor Platelet mean volume (Bld) [Entitic vol] 11.8 fL Normal 9.5-13.5 [facility] Comment on above: Performed By: #### C BC #### [facility] [address] [address] [address] Soila Pastor PLT 128 103/ul Critically low 150-450 [facility] Comment on above: Performed By: #### C BC #### [facility] [address] [address] [address] Soila Pastor RBC 3.60 106/ul Critically low 4.20-5.40 [facility] Comment on above: Performed By: #### C BC #### [facility] [address] [address] [address] Soila Pastor WBC 7.9 103/ul Normal 4.0-11.0 [facility] Comment on above: Performed By: #### C BC #### [facility] [address] [address] [address] oSila Pastor PROF 14(COMP METB)on 023 Albumin [Mass/Vol] 2.4 g/dL Critically low 3.4-5.0 [facility] Comment on above: Performed By: #### C MP #### [facility] [address] [place] [address] Dr. Soila Pastor Albumin/Globulin [Mass ratio] 0.7 {ratio} Normal [facility] Comment on above: Performed By: #### C MP #### [facility] [address] [place] [address] Dr. Soila Pastor ALP [Catalytic activity/Vol] 66 U/L Normal 46-116 [facility] Comment on above: Performed By: #### C MP #### [facility] [address] [place] [address] Dr. Soila Pastor ALT [Catalytic activity/Vol] 15 U/L Normal 14-59 [facility] Comment on above: Performed By: #### C MP #### [facility] [address] [place] [address] Dr. Soila Pastor Anion gap [Moles/Vol] 12.1 mmol/L Normal [facility] Comment on above: Performed By: #### C MP #### [facility] [address] [place] [address] Dr. Soila Pastor AST [Catalytic activity/Vol] 18 U/L Normal 15-37 [facility] Comment on above: Performed By: #### C MP #### [facility] [address] [address] [address] Soila Pastor Bilirubin [Mass/Vol] 0.3 mg/dL Normal 0.2-1.0 [facility] Comment on above: Performed By: #### C MP #### [facility] [address] [address] [address] Soila Pastor Calcium [Mass/Vol] 8.6 mg/dL Normal 8.5-10.1 [facility] Comment on above: Performed By: #### C MP #### [facility] [address] [address] [address] Soila Pastor Chloride [Moles/Vol] 110 mmol/L Critically high 98-107 [facility] Comment on above: Performed By: #### C MP #### [facility] [address] [place] [address] Dr. Soila Pastor CO2 [Moles/Vol] 26.2 mmol/L Normal 21.0-32.0 [facility] Comment on above: Performed By: #### C MP #### [facility] [address] [address] [address] Soila Pastor Creatinine [Mass/Vol] 0.74 mg/dL Normal 0.55-1.02 [facility] Comment on above: Performed By: #### C MP #### [facility] [address] [place] [address] Dr. Soila Pastor EGFR-AF KUWAITI >60 Normal >=60 [facility] Comment on above: Performed By: #### C MP #### [facility] [address] [place] [address] Dr. Soila Pastor EGFR-NON AF [place]I >60 Normal >=60 [facility] Comment on above: Performed By: #### C MP #### [facility] [address] [address] [address] Soila Pastor Globulin (S) [Mass/Vol] 3.6 g/dL Normal [facility] Comment on above: Performed By: #### C MP #### [facility] [address] [address] [address] Soila Pastor Glucose [Mass/Vol] 119 mg/dL Critically high 74-106 T [facility] Comment on above: Performed By: #### C MP #### [facility] [address] [address] [address] Soila Pastor Potassium [Moles/Vol] 3.3 mmol/L Critically low 3.5-5.1 [facility] Comment on above: Performed By: #### C MP #### [facility] [address] [address] [address] Soila Pastor Protein [Mass/Vol] 6.0 g/dL Critically low 6.4-8.2 [facility] Comment on above: Performed By: #### C MP #### [facility] [address] [place] [address] Dr. Soila Pastor Sodium [Moles/Vol] 145 mmol/L Normal 136-145 [facility] Comment on above: Performed By: #### C MP #### [facility] [address] [address] [address] Soila Pastor Urea nitrogen [Mass/Vol] 11.0 mg/dL Normal 7.0-18.0 [facility] Comment on above: Performed By: #### C MP #### [facility] [address] [place] [address] Dr. Soila Pastor Urea nitrogen/Creatinine [Mass ratio] 14.9 mg/mg Normal [facility] Comment on above: Performed By: #### C MP #### [facility] [address] [address] [address] Soila Pastor CARDIAC KARYN 3-6on 3 CK [Catalytic activity/Vol] 251 U/L Critically high 26-192 [facility] Comment on above: Performed By: #### E RUR #### [facility] [address] [place] [address] Dr. Soila Pastor CK.MB [Mass/Vol] 4.50 ng/mL Critically high <=3.60 [facility] Comment on above: Performed By: #### E RUR #### [facility] [address] [place] [address] Dr. Soila Pastor HSTROP 6.9 pg/mL Normal 4.0-51.3 [facility] Comment on above: Result Comment: CUT- OFF POINTS HAVE BEEN ESTABLISHED BASED ON THE FOURTH UNIVERSAL DEFINITIONS OF MYOCARDIAL INFARCTION. THE UPPER REFERENCE LIMIT (URL) OF TROPONIN, DEFINED THE 99TH PERCENTILE OF cTnI DISTRIBUTION IN A REFERENCE POPULATION, HAS BEEN CONFIRMED THE DECISION THRESHOLD FOR RI DIAGNOSIS. Performed By: #### E RUR #### [facility] [address] [place] [address] Dr. Soila Pastor CK [Catalytic activity/Vol] 143 U/L Normal 26-192 [facility] Comment on above: Performed By: #### E RUR #### [facility] [address] [place] [address] Dr. Soila Pastor CK.MB [Mass/Vol] 4.50 ng/mL Critically high <=3.60 [facility] Comment on above: Performed By: #### E RUR #### [facility] [address] [place] [address] Dr. Soila Pastor HSTROP 8.9 pg/mL Normal 4.0-51.3 [facility] Comment on above: Result Comment: CUT- OFF POINTS HAVE BEEN ESTABLISHED BASED ON THE FOURTH UNIVERSAL DEFINITIONS OF MYOCARDIAL INFARCTION. THE UPPER REFERENCE LIMIT (URL) OF TROPONIN, DEFINED THE 99TH PERCENTILE OF cTnI DISTRIBUTION IN A REFERENCE POPULATION, HAS BEEN CONFIRMED THE DECISION THRESHOLD FOR RI DIAGNOSIS. Performed By: #### E RUR #### [facility] [address] [place] [address] Dr. Soila Pastor CBC AUTO DIFFon 10-15-2022 BASO # 0.0 103/ul Normal 0.0-0.1 [facility] Comment on above: Performed By: #### C BC #### [facility] [address] [place] [address] Dr. Soila Pastor Basophils/100 WBC (Bld) 0.2 % Normal 0.2-2.0 [facility] Comment on above: Performed By: #### C BC #### [facility] [address] [place] [address] Dr. Soila Pastor EO # 0.0 103/ul Normal 0.0-0.7 [facility] Comment on above: Performed By: #### C BC #### [facility] [address] [place] [address] Dr. Soila Pastor Eosinophils/100 WBC (Bld) 0.4 % Critically low 0.9-7.0 [facility] Comment on above: Performed By: #### C BC #### [facility] [address] [place] [address] Dr. Soila Pastor Erythrocyte distribution width (RBC) [Ratio] 13.7 % Normal 11.0-15.0 [facility] Comment on above: Performed By: #### C BC #### [facility] [address] [place] [address] Dr. Soila Pastor Hematocrit (Bld) [Volume fraction] 34.4 % Critically low 36.0-48.0 [facility] Comment on above: Performed By: #### C BC #### [facility] [address] [place] [address] Dr. Soila Pastor Hemoglobin (Bld) [Mass/Vol] 10.7 g/dL Critically low 12.0-16.0 [facility] Comment on above: Performed By: #### C BC #### [facility] [address] [place] [address] Dr. Soila Pastor IG # 0.21 10e3/ul Critically high 0.00-0.03 [facility] Comment on above: Performed By: #### C BC #### [facility] [address] [place] [address] Dr. Soila Pastor IG % 2.1 % Critically high 0.0-0.5 [facility] Comment on above: Performed By: #### C BC #### [facility] [address] [place] [address] Dr. Soila Pastor LYMPH # 0.9 103/ul Critically low 1.2-3.8 [facility] Comment on above: Performed By: #### C BC #### [facility] [address] [place] [address] Dr. Soila Pastor Lymphocytes/100 WBC (Bld) 8.9 % Critically low 20.5-60.0 [facility] Comment on above: Performed By: #### C BC #### [facility] [address] [place] [address] Dr. Soila Pastor MANUAL DIFF REQ NO Normal [facility] Comment on above: Performed By: #### C BC #### [facility] [address] [place] [address] Dr. Soila Pastor MCH (RBC) [Entitic mass] 30.7 pg Normal 26.7-34.0 [facility] Comment on above: Performed By: #### C BC #### [facility] [address] [place] [address] Dr. Soial Pastor MCHC (RBC) [Mass/Vol] 31.1 g/dL Normal 29.9-35.2 [facility] Comment on above: Performed By: #### C BC #### [facility] [address] [place] [address] Dr. Soila Pastor MCV (RBC) [Entitic vol] 98.9 fL Normal 81.0-99.0 [facility] Comment on above: Performed By: #### C BC #### [facility] [address] [place] [address] Dr. Soila Pastor MONO # 0.4 103/ul Normal 0.3-0.8 [facility] Comment on above: Performed By: #### C BC #### [facility] [address] [place] [address] Dr. Soila Pastor Monocytes/100 WBC (Bld) 4.3 % Normal 1.7-12.0 [facility] Comment on above: Performed By: #### C BC #### [facility] [address] [place] [address] Dr. Soila Pastor NEUT # 8.4 103/ul Critically high 1.4-6.5 [facility] Comment on above: Performed By: #### C BC #### [facility] [address] [place] [address] Dr. Soila Pastor Neutrophils/100 WBC (Bld) 84.1 % Critically high 43.0-75.0 [facility] Comment on above: Performed By: #### C BC #### [facility] [address] [place] [address] Dr. Soila Pastor Platelet mean volume (Bld) [Entitic vol] 12.2 fL Normal 9.5-13.5 [facility] Comment on above: Performed By: #### C BC #### [facility] [address] [place] [address] Dr. Soila Pastor PLT 160 103/ul Normal 150-450 [facility] Comment on above: Performed By: #### C BC #### [facility] [address] [place] [address] Dr. Soila Pastor RBC 3.48 106/ul Critically low 4.20-5.40 [facility] Comment on above: Performed By: #### C BC #### [facility] [address] [place] [address] Dr. Soila Pastor WBC 9.9 103/ul Normal 4.0-11.0 [facility] Comment on above: Performed By: #### C BC #### [facility] [address] [place] [address] Dr. Soila Pastor CULTURE URINEon 10-15-2022 CULTURE URINE Culture Observations : NO GROWTH. Normal [facility] Comment on above: Performed By: #### P OCGLUC #### [facility] [address] [place] [address] Dr. Soila Pastor MAGNESIUMon 10-15-2022 Magnesium [Mass/Vol] 1.8 mg/dL Normal 1.8-2.4 [facility] Comment on above: Performed By: #### T 4, MG #### [facility] [address] [place] [address] Dr. Soila Pastor POINT OF CARE GLUCOSEon 09-21 Glucose [Mass/Vol] 123 mg/dL Critically high 74-106 [facility] Comment on above: Performed By: #### P OCGLUC #### [facility] [address] [place] [address] Dr. Soila Pastor Glucose [Mass/Vol] 128 mg/dL Critically high 74-106 [facility] Comment on above: Performed By: #### E RUR #### [facility] [address] [place] [address] Dr. Soila Pastor Glucose [Mass/Vol] 111 mg/dL Critically high 74-106 [facility] Comment on above: Performed By: #### P OCGLUC #### [facility] [address] [place] [address] Dr. Soila Pastor PROF 14(COMP METB)on 023 Albumin [Mass/Vol] 2.3 g/dL Critically low 3.4-5.0 [facility] Comment on above: Performed By: #### C MP #### [facility] [address] [place] [address] Dr. Soila Pastor Albumin/Globulin [Mass ratio] 0.7 {ratio} Normal [facility] Comment on above: Performed By: #### C MP #### [facility] [address] [place] [address] Dr. Soila Pastor ALP [Catalytic activity/Vol] 70 U/L Normal 46-116 [facility] Comment on above: Performed By: #### C MP #### [facility] [address] [place] [address] Dr. Soila Pastor ALT [Catalytic activity/Vol] 11 U/L Critically low 14-59 [facility] Comment on above: Performed By: #### C MP #### [facility] [address] [place] [address] Dr. Soila Pastor Anion gap [Moles/Vol] 11.2 mmol/L Normal [facility] Comment on above: Performed By: #### C MP #### [facility] [address] [place] [address] Dr. Soila Pastor AST [Catalytic activity/Vol] 32 U/L Normal 15-37 [facility] Comment on above: Performed By: #### C MP #### [facility] [address] [place] [address] Dr. Soila Pastor Bilirubin [Mass/Vol] 0.5 mg/dL Normal 0.2-1.0 [facility] Comment on above: Performed By: #### C MP #### [facility] [address] [place] [address] Dr. Soila Pastor Calcium [Mass/Vol] 7.8 mg/dL Critically low 8.5-10.1 [facility] Comment on above: Performed By: #### C MP #### [facility] [address] [place] [address] Dr. Soila Pastor Chloride [Moles/Vol] 104 mmol/L Normal 98-107 [facility] Comment on above: Performed By: #### C MP #### [facility] [address] [place] [address] Dr. Soila Pastor CO2 [Moles/Vol] 26.4 mmol/L Normal 21.0-32.0 [facility] Comment on above: Performed By: #### C MP #### [facility] [address] [place] [address] Dr. Soila Pastor Creatinine [Mass/Vol] 1.05 mg/dL Critically high 0.55-1.02 [facility] Comment on above: Performed By: #### C MP #### [facility] [address] [place] [address] Dr. Soila Pastor EGFR-AF KUWAITI >60 Normal >=60 [facility] Comment on above: Performed By: #### C MP #### [facility] [address] [place] [address] Dr. Soila Pastor EGFR-NON AF KU[place]I 50 mL/min/1.73m2 Critically low >=60 [facility] Comment on above: Performed By: #### C MP #### [facility] [address] [place] [address] Dr. Soila Pastor Globulin (S) [Mass/Vol] 3.5 g/dL Normal [facility] Comment on above: Performed By: #### C MP #### [facility] [address] [place] [address] Dr. Soila Pastor Glucose [Mass/Vol] 153 mg/dL Critically high 74-106 T [facility] Comment on above: Performed By: #### C MP #### [facility] [address] [address] [address] Soila Pastor Potassium [Moles/Vol] 4.6 mmol/L Normal 3.5-5.1 [facility] Comment on above: Performed By: #### C MP #### [facility] [address] [address] [address] Soila Pastor Protein [Mass/Vol] 5.8 g/dL Critically low 6.4-8.2 [facility] Comment on above: Performed By: #### C MP #### [facility] [address] [address] [address] Soila Pastor Sodium [Moles/Vol] 137 mmol/L Normal 136-145 [facility] Comment on above: Performed By: #### C MP #### [facility] [address] [address] [address] Soila Pastor Urea nitrogen [Mass/Vol] 19.0 mg/dL Critically high 7.0-18.0 [facility] Comment on above: Performed By: #### C MP #### [facility] [address] [address] [address] Soila Pastor Urea nitrogen/Creatinine [Mass ratio] 18.1 mg/mg Normal [facility] Comment on above: Performed By: #### C MP #### [facility] [address] [address] [address] Soila Pastor T4on 10-15-2022 T4 [Mass/Vol] 7.30 ug/dL Normal 4.80-13.90 [facility] Comment on above: Performed By: #### T 4, MG #### [facility] [address] [address] [address] Soila Pastor ACETONE SERUMon 10-14-2022 ACETONE Negative Normal NEGATIVE [facility] Comment on above: Performed By: #### E RUR #### [facility] [address] [address] [address] Soila Pastor AMMONIAon 10-14-2022 Ammonia (P) [Moles/Vol] 24 umol/L Normal 11-32 [facility] Comment on above: Performed By: #### E RUR #### [facility] [address] [place] [address] Dr. Soila Pastor BLOOD GASES BTYon 10-14-2022 02 MODE ROOM AIR [place] [facility] Comment on above: Performed By: #### E RUR #### [facility] [address] [place] [address] Dr. Soila Pastor ALLENS TEST Positive [facility] Comment on above: Performed By: #### E RUR #### [facility] [address] [place] [address] Dr. Soila Pastor Base excess Calc (Bld) [Moles/Vol] 1.0 mmol/L Normal -2.0-2.0 [facility] Comment on above: Performed By: #### E RUR #### [facility] [address] [place] [address] Dr. Soila Pastor BIPAP PRESSURE [facility] Comment on above: Performed By: #### E RUR #### [facility] [address] [place] [address] Dr. Soila Pastor CPAP [facility] Comment on above: Performed By: #### E RUR #### [facility] [address] [place] [address] Dr. Soila Pastor FIO2 [facility] Comment on above: Performed By: #### E RUR #### [facility] [address] [place] [address] Dr. Soila Pastor HCO3 (Bld) [Moles/Vol] 26.0 mmol/L Normal 22.0-26.0 [facility] Comment on above: Performed By: #### E RUR #### [facility] [address] [place] [address] Dr. Soila Pastor LPM [facility] Comment on above: Performed By: #### E RUR #### [facility] [address] [place] [address] Dr. Soila Pastor MINUTE VOLUME Normal [facility] Comment on above: Performed By: #### E RUR #### [facility] [address] [address] [address] Soila Pastor Oxygen (Bld) [Partial pressure] 92.6 mm[Hg] Normal 80.0-100.0 [facility] Comment on above: Performed By: #### E RUR #### [facility] [address] [place] [address] Dr. Soila Pastor Oxygen saturation in Blood 97.0 % Normal 95.0-100.0 [facility] Comment on above: Performed By: #### E RUR #### [facility] [address] [place] [address] Dr. Soila Pastor PCO2 43.2 mmHg Normal 35.0-45.0 [facility] Comment on above: Performed By: #### E RUR #### [facility] [address] [place] [address] Dr. Soila Pastor PEEP [facility] Comment on above: Performed By: #### E RUR #### [facility] [address] [place] [address] Dr. Soila Pastor pH (Bld) 7.389 [pH] Normal 7.350-7.450 [facility] Comment on above: Performed By: #### E RUR #### [facility] [address] [place] [address] Dr. Soila Pastor PIP [facility] Comment on above: Performed By: #### E RUR #### [facility] [address] [place] [address] Dr. Soila Pastor PS [facility] Comment on above: Performed By: #### E RUR #### [facility] [address] [place] [address] Dr. Soila Pastor PUNCTURE SITE LR [facility] Comment on above: Performed By: #### E RUR #### [facility] [address] [place] [address] Dr. Soila Pastor RATE [facility] Comment on above: Performed By: #### E RUR #### [facility] [address] [place] [address] Dr. Soila Pastor VENT MODE Normal [facility] Comment on above: Performed By: #### E RUR #### [facility] [address] [place] [address] Dr. Soila Pastor [place] Normal [facility] Comment on above: Performed By: #### E RUR #### [facility] [address] [place] [address] Dr. Soila Pastor BNPon 10-14-2022 Natriuretic peptide B (Bld) [Mass/Vol] 432.0 pg/mL Normal <=1,800.0 [facility] Comment on above: Performed By: #### P OCGLUC #### [facility] [address] [place] [address] Dr. Soila Pastor CBC AUTO DIFFon 10-14-2022 BASO # 0.1 103/ul Normal 0.0-0.1 [facility] Comment on above: Performed By: #### P OCGLUC #### [facility] [address] [place] [address] Dr. Soila Pastor Basophils/100 WBC (Bld) 0.3 % Normal 0.2-2.0 [facility] Comment on above: Performed By: #### P OCGLUC #### [facility] [address] [place] [address] Dr. Soila Pastor EO # 0.3 103/ul Normal 0.0-0.7 [facility] Comment on above: Performed By: #### P OCGLUC #### [facility] [address] [place] [address] Dr. Soila Pastor Eosinophils/100 WBC (Bld) 1.7 % Normal 0.9-7.0 [facility] Comment on above: Performed By: #### P OCGLUC #### [facility] [address] [place] [address] Dr. Soila Pastor Erythrocyte distribution width (RBC) [Ratio] 13.5 % Normal 11.0-15.0 [facility] Comment on above: Performed By: #### P OCGLUC #### [facility] [address] [address] [address] Soila Pastor Hematocrit (Bld) [Volume fraction] 38.5 % Normal 36.0-48.0 [facility] Comment on above: Performed By: #### P OCGLUC #### [facility] [address] [place] [address] Dr. Soila Pastor Hemoglobin (Bld) [Mass/Vol] 12.2 g/dL Normal 12.0-16.0 [facility] Comment on above: Performed By: #### P OCGLUC #### [facility] [address] [address] [address] Soila Pastor IG # 0.06 10e3/ul Critically high 0.00-0.03 [facility] Comment on above: Performed By: #### P OCGLUC #### [facility] [address] [place] [address] Dr. Soila Pastor IG % 0.4 % Normal 0.0-0.5 [facility] Comment on above: Performed By: #### P OCGLUC #### [facility] [address] [place] [address] Dr. Soila Pastor LYMPH # 2.5 103/ul Normal 1.2-3.8 [facility] Comment on above: Performed By: #### P OCGLUC #### [facility] [address] [place] [address] Dr. Soila Pastor Lymphocytes/100 WBC (Bld) 17.2 % Critically low 20.5-60.0 [facility] Comment on above: Performed By: #### P OCGLUC #### [facility] [address] [place] [address] Dr. Soila Pastor MANUAL DIFF REQ NO Normal [facility] Comment on above: Performed By: #### P OCGLUC #### [facility] [address] [place] [address] Dr. Soila Pastor MCH (RBC) [Entitic mass] 30.0 pg Normal 26.7-34.0 [facility] Comment on above: Performed By: #### P OCGLUC #### [facility] [address] [place] [address] Dr. Soila Pastor MCHC (RBC) [Mass/Vol] 31.7 g/dL Normal 29.9-35.2 [facility] Comment on above: Performed By: #### P OCGLUC #### [facility] [address] [address] [address] Soila Pastor MCV (RBC) [Entitic vol] 94.8 fL Normal 81.0-99.0 [facility] Comment on above: Performed By: #### P OCGLUC #### [facility] [address] [address] [address] Soila Pastor MONO # 1.5 103/ul Critically high 0.3-0.8 [facility] Comment on above: Performed By: #### P OCGLUC #### [facility] [address] [address] [address] Soila Pastor Monocytes/100 WBC (Bld) 9.9 % Normal 1.7-12.0 [facility] Comment on above: Performed By: #### P OCGLUC #### [facility] [address] [address] [address] Soila Pastor NEUT # 10.3 103/ul Critically high 1.4-6.5 [facility] Comment on above: Performed By: #### P OCGLUC #### [facility] [address] [place] [address] Dr. Soila Pastor Neutrophils/100 WBC (Bld) 70.5 % Normal 43.0-75.0 [facility] Comment on above: Performed By: #### P OCGLUC #### [facility] [address] [address] [address] Soila Pastor Platelet mean volume (Bld) [Entitic vol] 11.3 fL Normal 9.5-13.5 [facility] Comment on above: Performed By: #### P OCGLUC #### [facility] [address] [address] [address] Soila Pastor PLT 151 103/ul Normal 150-450 [facility] Comment on above: Performed By: #### P OCGLUC #### [facility] [address] [address] [address] Soila Pastor RBC 4.06 106/ul Critically low 4.20-5.40 [facility] Comment on above: Performed By: #### P OCGLUC #### [facility] [address] [address] [address] Soila Pastor WBC 14.7 103/ul Critically high 4.0-11.0 [facility] Comment on above: Performed By: #### P OCGLUC #### [facility] [address] HEAD WO CONon 10-14-2022 CT HEAD WO CON EXAMINATION: CT HEAD WO CON HISTORY: DISORIENTATION, UNSPECIFIED - TECHNIQUE: CT head without contrast. All CT scans at this facility use dose modulation, iterative reconstruction, and/or weight based dosing when appropriate to reduce radiation dose to as low as reasonably achievable. COMPARISON: CT brain 08/24/2022 RESULT: Post-operative change: None. Acute change: No evidence of an acute intracranial process. Hemorrhage: No evidence of acute intracranial hemorrhage. Mass Lesion / Mass Effect: No evidence of an intracranial mass or extraaxial fluid collection. No significant mass effect. Chronic change: Patchy foci of low attenuation coefficient are present within the supratentorial white matter which is a nonspecific finding but likely represents moderate microvascular ischemia. Atherosclerotic calcification of the carotid siphons and vertebrobasilar arteries. Parenchyma: Moderate generalized volume loss. Ventricles: Ventricular enlargement concordant with the degree of parenchymal volume loss. Other: The calvarium, skull base, imaged paranasal sinuses, mastoids, and extracranial soft tissues are unremarkable. Bilateral lens replacements. IMPRESSION: No acute intracranial abnormality; no acute infarct, intracranial hemorrhage or extra-axial collection. Chronic microvascular ischemia and involutional changes. Electronically authenticated by: PAVEL SANCHEZ Date: 2022-10-14 20:13 Normal [facility] CULTURE BLOODon 10-14-2022 Microscopic examination of blood, culture Culture Observations: NO GROWTH AT 5 DAYS. Normal [facility] Comment on above: Performed By: #### P OCGLUC #### [facility] [address] [address] [address] Soila Pastor Microscopic examination of blood, culture Culture Observations: NO GROWTH AT 5 DAYS. Normal [facility] Comment on above: Performed By: #### P OCGLUC #### [facility] [address] [place] [address] Dr. Soila Pastor Covid-19 PCR ([facility])on 09-21 SARS-CoV-2 (COVID-19) RNA JERALD+probe Ql (Unsp spec) Not detected Normal NOT DETECTED [facility] Comment on above: Result Comment: When diagnostic testing is negative, the possibility of a false negative should be considered in the context of a patient's recent exposures and the presence of clinical signs and symptoms consistent with SARS-CoV-2. This test is not yet approved or cleared by the [place] FDA. When there are no FDA-approved or cleared tests available, and other criteria are met, FDA can make tests available under an emergency access mechanism called an Emergency Use Authorization (EUA). The EUA for this test is supported by the [employer] of Health and Human Service's declaration that circumstances exist to justify the emergency use of in vitro diagnostics for the detection and/or diagnosis of the virus that causes COVID-19. This EUA will remain in effect for the duration of the COVID-19 declaration justifying emergency of IVDs, unless it is terminated or revoked by the FDA (after which the test may no longer be used). Performed By: #### C VDTBH #### [facility] [address] [place] [address] Dr. Soila Pastor ER URINE PROFILEon 3 Bilirubin Ql (U) Negative Normal NEGATIVE [facility] Comment on above: Performed By: #### E RUR #### [facility] [address] [place] [address] Dr. Soila Pastor Clarity (U) CLEAR Normal CLEAR [facility] Comment on above: Performed By: #### E RUR #### [facility] [address] [place] [address] Dr. Soila Pastor Color (U) YELLOW Normal YELLOW [facility] Comment on above: Performed By: #### E RUR #### [facility] [address] [place] [address] Dr. Soila Pastor ERUAHD A micrscopic examination will be performed if indicated. Normal [facility] Comment on above: Performed By: #### E RUR #### [facility] [address] [place] [address] Dr. Soila Pastor Glucose Ql (U) Negative Normal NEGATIVE [facility] Comment on above: Performed By: #### E RUR #### [facility] [address] [place] [address] Dr. Soila Pastor Hemoglobin Ql (U) Negative Normal NEGATIVE [facility] Comment on above: Performed By: #### E RUR #### [facility] [address] [place] [address] Dr. Soila Pastor Ketones Ql (U) TRACE Abnormal NEGATIVE [facility] Comment on above: Performed By: #### E RUR #### [facility] [address] [place] [address] Dr. Soila Pastor LEUKOCYTES Negative Normal NEGATIVE [facility] Comment on above: Performed By: #### E RUR #### [facility] [address] [place] [address] Dr. Soila Pastor Nitrite Ql (U) Negative Normal NEGATIVE [facility] Comment on above: Performed By: #### E RUR #### [facility] [address] [place] [address] Dr. Soila Pastor pH (U) 5.0 [pH] Normal 5-9 [facility] Comment on above: Performed By: #### E RUR #### [facility] [address] [place] [address] Dr. Soila Pastor SPEC GRAVITY 1.020 Normal 1.005-<=1.025 [facility] Comment on above: Performed By: #### E RUR #### [facility] [address] [place] [address] Dr. Soila Pastor UA PROTEIN Negative Normal NEGATIVE/ TRACE [facility] Comment on above: Performed By: #### E RUR #### [facility] [address] [place] [address] Dr. Soila Pastor UR MICRO IND NOT INDICATED Normal [facility] Comment on above: Performed By: #### E RUR #### [facility] [address] [place] [address] Dr. Soila Pastor Urobilinogen Qn (U) 1.0 {Betsy'U}/dL Normal 0.2 - 1. 0 [facility] Comment on above: Performed By: #### E RUR #### [facility] [address] [place] [address] Dr. Soila Pastor LACTATE/LACTIC ACIDon 2022 Lactate [Moles/Vol] 1.4 mmol/L Normal 0.4-2.0 [facility] Comment on above: Performed By: #### E RUR #### [facility] [address] [place] [address] Dr. Soila Pastor PH VENOUS BLOODon 10-14-2022 PCO2 VENOUS 47.6 mmHg Normal 40.0-52.0 [facility] Comment on above: Performed By: #### E RUR #### [facility] [address] [place] [address] Dr. Soila Pastor pH VENOUS 7.401 Normal 7.330-7.430 [facility] Comment on above: Performed By: #### E RUR #### [facility] [address] [place] [address] Dr. Soila Pastor PROF 14(COMP METB)on 023 Albumin [Mass/Vol] 3.2 g/dL Critically low 3.4-5.0 [facility] Comment on above: Performed By: #### P OCGLUC #### [facility] [address] [place] [address] Dr. Soila Pastor Albumin/Globulin [Mass ratio] 0.8 {ratio} Normal [facility] Comment on above: Performed By: #### P OCGLUC #### [facility] [address] [place] [address] Dr. Soila Pastor ALP [Catalytic activity/Vol] 85 U/L Normal 46-116 [facility] Comment on above: Performed By: #### P OCGLUC #### [facility] [address] [place] [address] Dr. Soila Pastor ALT [Catalytic activity/Vol] 13 U/L Critically low 14-59 [facility] Comment on above: Performed By: #### P OCGLUC #### [facility] [address] [address] [address] Soila Pastor Anion gap [Moles/Vol] 9.5 mmol/L Normal [facility] Comment on above: Performed By: #### P OCGLUC #### [facility] [address] [address] [address] Soila Pastor AST [Catalytic activity/Vol] 12 U/L Critically low 15-37 [facility] Comment on above: Performed By: #### P OCGLUC #### [facility] [address] [address] [address] Soila Pastor Bilirubin [Mass/Vol] 0.5 mg/dL Normal 0.2-1.0 [facility] Comment on above: Performed By: #### P OCGLUC #### [facility] [address] [address] [address] Soila Pastor Calcium [Mass/Vol] 9.0 mg/dL Normal 8.5-10.1 [facility] Comment on above: Performed By: #### P OCGLUC #### [facility] [address] [place] [address] Dr. Soila Pastor Chloride [Moles/Vol] 99 mmol/L Normal 98-107 [facility] Comment on above: Performed By: #### P OCGLUC #### [facility] [address] [address] [address] Soila Pastor CO2 [Moles/Vol] 32.0 mmol/L Normal 21.0-32.0 [facility] Comment on above: Performed By: #### P OCGLUC #### [facility] [address] [address] [address] Soila Pastor Creatinine [Mass/Vol] 1.55 mg/dL Critically high 0.55-1.02 [facility] Comment on above: Performed By: #### P OCGLUC #### [facility] [address] [address] [address] Soila Pastor EGFR-AF KU[place]I 39 mL/min/1.73m2 Critically low >=60 [facility] Comment on above: Performed By: #### P OCGLUC #### [facility] [address] [address] [address] Soila Pastor EGFR-NON AF [place] 32 mL/min/1.73m2 Critically low >=60 [facility] Comment on above: Performed By: #### P OCGLUC #### [facility] [address] [address] [address] Soila Pastor Globulin (S) [Mass/Vol] 3.8 g/dL Normal [facility] Comment on above: Performed By: #### P OCGLUC #### [facility] [address] [address] [address] Soila Pastor Glucose [Mass/Vol] 125 mg/dL Critically high 74-106 T [facility] Comment on above: Performed By: #### P OCGLUC #### [facility] [address] [address] [address] Soila Pastor Potassium [Moles/Vol] 3.5 mmol/L Normal 3.5-5.1 [facility] Comment on above: Performed By: #### P OCGLUC #### [facility] [address] [address] [address] Soila Pastor Protein [Mass/Vol] 7.0 g/dL Normal 6.4-8.2 [facility] Comment on above: Performed By: #### P OCGLUC #### [facility] [address] [address] [address] Soila Pastor Sodium [Moles/Vol] 137 mmol/L Normal 136-145 [facility] Comment on above: Performed By: #### P OCGLUC #### [facility] [address] [address] [address] Soila Pastor Urea nitrogen [Mass/Vol] 21.0 mg/dL Critically high 7.0-18.0 [facility] Comment on above: Performed By: #### P OCGLUC #### [facility] [address] [address] [address] Soila Pastor Urea nitrogen/Creatinine [Mass ratio] 13.5 mg/mg Normal [facility] Comment on above: Performed By: #### P OCGLUC #### [facility] [address] [place] [address] Dr. Soila Pastor PROTIMEon 10-14-2022 INR Coag (PPP) [Relative time] 1.01 {INR} Normal [facility] Comment on above: Performed By: #### C VDTBH #### [facility] [address] [place] [address] Dr. Soila Pastor INR GUIDELINES SEE BELOW Normal [facility] Comment on above: Result Comment: [place] RED INR: 2.0 - 3.0 CONDITIONS NOT LISTED BELOW 2.5 - 3.5 FOR PROSTHETIC HEART VALVE REPLACEMENT 2.5 - 3.5 RECURRENT THROMBOSIS Performed By: #### C VDTBH #### [facility] [address] [place] [address] Dr. Soila Pastor PT Coag (PPP) [Time] 10.7 s Normal 9.0-11.6 [facility] Comment on above: Performed By: #### C VDTBH #### [facility] [address] [place] [address] Dr. Soila Pastor PTTon 10-14-2022 aPTT Coag (Bld) [Time] 31.5 s Normal 22.3-36.2 [facility] Comment on above: Performed By: #### E RUR #### [facility] [address] [place] [address] Dr. Soila Pastor TROPONIN, HIGH SENSITIVITYon 10-14-2022 HSTROP 8.8 pg/mL Normal 4.0-51.3 [facility] Comment on above: Result Comment: CUT- OFF POINTS HAVE BEEN ESTABLISHED BASED ON THE FOURTH UNIVERSAL DEFINITIONS OF MYOCARDIAL INFARCTION. THE UPPER REFERENCE LIMIT (URL) OF TROPONIN, DEFINED THE 99TH PERCENTILE OF cTnI DISTRIBUTION IN A REFERENCE POPULATION, HAS BEEN CONFIRMED THE DECISION THRESHOLD FOR RI DIAGNOSIS. Performed By: #### P OCGLUC #### [facility] [address] [place] [address] Dr. Soila Pastor TSHon 10-14-2022 TSH 1.240 uIU/mL Normal 0.358-3.740 [facility] Comment on above: Performed By: #### P OCGLUC #### [facility] [address] [address] [address] Soila Pastor XR ANKLE LT MIN 3 Von 2022 XR ANKLE LT MIN 3 V EXAM: XR ANKLE LT RI N 3 V HISTORY: Unspecified fall COMPARISON: None. TECHNIQUE: 3 view study FINDINGS: Overall bony architecture is normal. Ankle mortise relationships are intact. A plantar calcaneal enthesophyte is noted. Soft tissue swelling about the ankle is noted. IMPRESSION: No acute bone or joint abnormality at the ankle. Electronically authenticated by: Selin MCCALL Date: 2022-10-14 20:16 Normal [facility] XR CHEST 1 Von 10-14-2022 XR CHEST 1 V EXAMINATION: XR CHES T 1 V, , 10/14/2022 6:28 PM EDT INDICATION: SHORTNESS OF BREATH HISTORY: Ordering Provider Reason for Exam: Technologist Note: Additional: COMPARISON: None. TECHNIQUE: Chest x-ray: One view. FINDINGS: Mild increased markings are seen in the left lung base, which represent atelectasis versus less likely small infiltrate. Mild right lung base atelectasis is also seen. No significant pleural effusion or obvious pneumothorax is seen. Heart is normal in size. Bony thorax is unremarkable. IMPRESSION: Mild increased markings are seen in the left lung base, which represent atelectasis versus less likely small infiltrate. Mild right lung base atelectasis is also seen. Electronically authenticated by: KAELA HOOKER Date: 2022-10-14 20:15 Normal [facility] XR CHEST 2 Von 10-14-2022 XR CHEST 2 V EXAM: XR CHEST 2 V HISTORY: Cardiovascular symptoms COMPARISON: None. TECHNIQUE: PA and lateral views of the chest. FINDINGS: The cardiomediastinal silhouette is normal. No focal consolidation is identified. There is no pneumothorax. No pleural effusion is noted. The osseous structures are intact. IMPRESSION: No acute cardiopulmonary process. Suggestion of COPD. Electronically authenticated by: KARYN WASHINGTON Date: 2022-10-14 11:33 Normal [facility] CT CSPINE WO CONon CT CSPINE WO CON EXAMINATION: CT CSPINE WO CON HISTORY: The patient is an 82-year-old female. Unspecified fall COMPARISON: None. TECHNIQUE: CT Cervical spine without IV contrast. Coronal and sagittal reformations were performed. Dose reduction techniques were achieved by using automated exposure control and/or adjustment of mA and/or kV according to patient size and/or use of iterative reconstruction technique. FINDINGS: The axial images demonstrate no fractures or cortical discontinuities throughout the cervical spine. The coronal and sagittal reformatted images demonstrate no fractures or loss of vertebral body height throughout the cervical spine. The temporomandibular joints are maintained. There is moderate to severe disc space narrowing throughout the cervical spine. There is also degenerative facet disease throughout the cervical spine, and there is solid bony fusion across the left C4-C5 facet. There is slight reversal the normal cervical lordosis centered at C4. There is slight anterolisthesis of C3 on C4 and of C4 on C5. The soft tissue images demonstrate no evidence of sizable disc herniations or central canal stenosis throughout the cervical spine. IMPRESSION: 1. No fractures or loss of vertebral body height throughout the cervical spine. 2. Degenerative disc disease throughout the cervical spine. Electronically authenticated by: REED LYNNE Date: 2022-08-24 18:47 Normal [facility] CT HEAD WO CONon 08-24-2022 CT HEAD WO CON EXAMINATION: CT HEAD WO CON, 08/24/2022 5:27 PM EST HISTORY: Unspecified fall COMPARISON: CT head 02/20/2020. TECHNIQUE: CT scan of the head was performed without IV contrast. CT dose reduction technique was used, including Automated Exposure Control. FINDINGS: BRAIN PARENCHYMA/CSF SPACES: Moderately enlarged ventricles and sulci consistent with atrophy. There is no hemorrhage, mass effect or midline shift. Severe atherosclerotic carotid artery calcification. Mild low-attenuation in the white matter consistent with chronic microvascular ischemia. There is a probable tiny chronic lacunar infarct in the right caudate nucleus which is stable. PARANASAL SINUSES: Clear. SKULL BASE AND CALVARIUM: Normal. EXTRACRANIAL SOFT TISSUES: Mild right frontal scalp laceration with associated subcutaneous air. IMPRESSION: 1. No acute intracranial abnormality. 2. 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 3. Right frontal scalp laceration. Electronically authenticated by: AMAYA FRENCH Date: 2022-08-24 18:57 Normal [facility] XR KNEE RT 4V or >on 023 XR KNEE RT 4V or > EXAM: XR KNEE RT 4V or > REASON FOR EXAM: Female, 82 years, Unspecified fall. TECHNIQUE: 4 views of the knee are performed. COMPARISON: None. FINDINGS: Normal visualized distal femur. Normal visualized proximal tibia and fibula. Normal proximal tibiofibular articulation. There is no demonstrated fracture. Bones are demineralized. There are moderate degenerative changes of the lateral femorotibial compartment. There is severe joint space narrowing of the medial femorotibial compartment. There is moderate joint space narrowing at the patellofemoral joint. There is a small suprapatellar effusion. There is soft tissue swelling along the anterior lateral aspect of the knee. IMPRESSION: Degenerative changes. No acute fracture is seen. Small suprapatellar effusion. Electronically authenticated by: VIKY WILLIAMSON Date: 2022-08-24 18:59 Normal [facility] US THYROIDon 05-29-2022 US THYROID EXAMINATION: US THYROID HISTORY: Non-toxic multinodular goiter COMPARISON: 01/07/2022 TECHNIQUE: Sonographic images of the thyroid gland were obtained. FINDINGS: The right lobe is surgically absent. 5 mm area of soft tissue echogenicity likely postsurgical changes The thyroid isthmus measures 3.8 mm, heterogeneous. The left thyroid lobe measures 4.0 x 1.3 x 1.4 cm. Heterogeneous echotexture. 2 focal nodules over 5 mm Nodule 1:1.1 x 1.1 x 0.8 cm. Mixed solid and cystic, hypoechoic, wide, ill-defined margins, peripheral calcifications. TR 4 Nodule 2:0.8 x 0.7 x 0.6 cm. Solid, hyperechoic, wide, smooth margins, no calcifications. TR 3 IMPRESSION: 2 focal left thyroid nodules, grossly stable TI-RADS: The [employer] TI-RADS committee's white paper recommendations for thyroid lesions classified as TR4 (moderately suspicious) are listed below: > 1.0 cm. Follow-up ultrasound in 1, 2, 3, and 5 years. > 1.5 cm. FNA. J. Am Nikunj Radiol 2017;14:587-595. Electronically authenticated by: CARLOS SOOD Date: 2022-05-29 11:51 Normal [facility] VASC LAB Carotid Artery Dupl ex Ultrasounon 04-14-2022 [facility] [place] [facility] Carotid Artery Duplex Ultrasoun [address], [address], [place] [address] Vascular Lab Report Carotid Artery Duplex Ultrasound Patient Name: ELGIN GARZA Reading Physician: [id number] Martha Navas MD, [facility] Study Date: 04/14/2022 Referring XOCHITL SMYTH Physician: MRN/PID: [id number] PCP: Yossi Landers Accession/Order#: [id number] CC Report to: Date of : 1940 Technologist: Eleanor Marcus RDCS, T Gender: F Technologist 2: Admission Status: Outpatient Location Performed: [facility] Diagnosis/ICD: 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 Indication: CAD, Cardiomyopathy, Dyspnea, Obesity, COPD, Diabetes, HTN, Hyperlipidemia, Former Smoker Procedure/CPT: 69795 Cerebrovascular Carotid Duplex scan complete-[id number] CONCLUSIONS: Right Carotid: Findings are consistent with 50 to 69% stenosis of the right proximal ICA. Laminar flow seen by color Doppler. There are elevated velocities in the right ECA that are suggestive of disease. No evidence of hemodynamically significant stenosis of the right common carotid artery. The right vertebral artery is patent with antegrade flow. No significant changes since 2018. Left Carotid: Findings are consistent with 50 to 69% stenosis of the left proximal ICA. Laminar flow seen by color Doppler. There are elevated velocities in the left ECA that are suggestive of disease. No evidence of hemodynamically significant stenosis of the left common carotid artery. The left vertebral artery is patent with antegrade flow. No significant changes since 2018. Imaging AND Doppler Findings: Right Plaque Morph: The proximal right internal carotid artery demonstrates irregular and heterogenous plaque. The distal right common carotid artery demonstrates heterogenous and irregular plaque. Right Left PSV EDV PSV EDV 80 cm/s 10 cm/s CCA P 94 cm/s 11 cm/s 76 cm/s 13 cm/s CCA M 120 cm/s 18 cm/s 81 cm/s 11 cm/s CCA D 77 cm/s 16 cm/s 118 cm/s 19 cm/s ICA P 143 cm/s 30 cm/s 169 cm/s 39 cm/s ICA M 144 cm/s 26 cm/s 145 cm/s 33 cm/s ICA D 140 cm/s 24 cm/s 127 cm/s ECA 127 cm/s 90 cm/s Vertebral 86 cm/s Right Left ICA/CCA Ratio 1.5 1.9 [id number] Martha Navas MD, FACC Final Normal [facility] VASC LAB Carotid Artery Dupl ex Ultrasoundon 04-14-[address] [facility] [employer] [address] [place] Work Phone: Height or Weight NOT Doneon 02-26-2022 Fall risk assessment a) No falls within the last year [facility] [employer] [address] [place] Work Phone: Tobacco use status [facility] b) No -[facility] [employer] [address] DO Work Phone: Office Visit (Cardiology)on 02-26-2022 Follow-up visit Diagnoses/Problems Assessed Coronary artery disease without angina pectoris (414.00) (I25.10) Bilateral carotid artery stenosis (433.10,433.30) (I65.23) Cardiomyopathy (425.4) (I42.9) Hypertension (401.9) (I10) Hyperlipidemia (272.4) (E78.5) Diabetes mellitus (250.00) (E11.9) Former smoker (V15.82) (Z87.891) quit 1995, 2ppd Dyspnea (786.09) (R06.00) Class 2 severe obesity with serious comorbidity and body mass index (BMI) of 35.0 to 35.9 in adult (278.01,V85.35) (E66.01,Z68.35) Orders Bilateral carotid artery stenosis, Coronary artery disease without angina pectoris VASC LAB Carotid Artery Duplex Ultrasound; Status:Hold For - Scheduling,Retrospect julian Authorization; Requested for:26Feb2022; Laterality : Bilateral SocHx: Former smoker Tobacco Use Screening; Status:Complete; Done: 26Feb2022 Patient Instructions Please bring all medicines, vitamins, and herbal supplements with you when you come to the office. Prescriptions will not be filled unless you are compliant with your follow up appointments or have a follow up appointment scheduled as per instruction of your physician. Refills should be requested at the time of your visit. Carotid Duplex. Retrieve lab from pcp Follow up in 6-7 months Chief Complaint ELGIN NORWOOD is being seen for a 4 month follow-up of. History of Present Illness Patient is here for follow-up continue management for history of nonischemic cardiomyopathy improved medical therapy, carotid disease, shortness of breath, hypertension and obesity. Since last time I saw her however she admits to limited exercise tolerance due to her obesity and COPD. She denies any complaint of chest pain, palpitation, lightheadedness, dizziness or syncope. Her recent echocardiogram showed normal LV systolic function. Remote heart cath showed moderate one-vessel disease affecting the proximal circumflex. No chest pain was reported ASSESSMENT: 1. History of nonischemic cardiomyopathy and heart failure remotely improved. Continues to complain of mild shortness of breath this appears to be due to COPD. Her recent echo showed normal LV systolic function 2. History of bilateral carotid disease underwent carotid angiogram did not require intervention 3. Mild shortness of breath due to obesity and deconditioning. 4. Previous report of edema has resolved. 5. Hypertension, controlled. 6. Obesity 1 7. Hyperlipidemia, on treatment. 8. Patient reports possible cardiopulmonary resuscitation while in the hospital for pneumonia last year the record which was scratchy but no clear mention of cardiopulmonary resuscitation was noted 9. COPD RECOMMENDATION: 1. The patient was advised to remain on current therapy. 2. The patient counseled regarding losing weight, exercise, and riskfactor adjustment. 3. I reviewed her recent echocardiogram and hospital record 4. I encouraged her to lose weight and exercise 5. We will see her back in 9 months and follow-up in 6. We will repeat her carotid Doppler 1 1 Amended By: Xochitl Smyth; Feb 26 2022 4:00 PM ESTSurgical History Problems History of Back surgery History of Colonoscopy History of Hernia repair History of Hysterectomy History of Throat surgery Current Meds Medication NameInstruction Advair Diskus 250-50 MCG/ACT Inhalation Aerosol Powder Breath ActivatedTAKE 1 PUFF BY MOUTH TWICE A DAY ALPRAZolam 0.25 MG Oral TabletTAKE 1 TABLET BY MOUTH TWICE DAILY NEEDED FOR ANXIETY Aspirin EC 81 MG Oral Tablet Delayed ReleaseTAKE 1 TABLET DAILY DIRECTED. Atorvastatin Calcium 40 MG Oral TabletTAKE 1 TABLET BY MOUTH EVERY DAY Black Cohosh CAPSTAKE DIRECTED. buPROPion HCl ER (Smoking Det) 150 MG Oral Tablet Extended Release 12 HourTAKE 1 TABLET BY MOUTH TWICE A DAY Carvedilol 12.5 MG Oral Tablettake 1 tablet by mouth twice a day with food DULoxetine HCl - 60 MG Oral Capsule Delayed Release ParticlesTAKE 1 CAPSULE BY MOUTH EVERY DAY Furosemide 40 MG Oral TabletTAKE 1 TABLET BY MOUTH EVERY DAY Gabapentin 100 MG Oral CapsuleTAKE 2 CAPSULES TWICE A DAY HYDROcodone-Acetamino phen 7.5-325 MG Oral TabletTAKE 1 TABLET 3 TIMES DAILY NEEDED FOR PAIN. Klor-Con M20 20 MEQ Oral Tablet Extended ReleaseTAKE 1 TABLET DAILY. Levothyroxine Sodium 100 MCG Oral TabletTAKE 1 TABLET BY MOUTH EVERY DAY Linzess 290 MCG Oral CapsuleTAKE 1 CAPSULE BY MOUTH EVERY DAY FOR 90 DAYS Lisinopril 5 MG Oral TabletTAKE 1 TABLET BY MOUTH EVERY DAY Loratadine 10 MG Oral TabletTAKE 1 TABLET BY MOUTH EVERY DAY Ocuvite PreserVision TABSTAKE 1 TABLET DAILY. Rexulti 2 MG Oral TabletTAKE 1 TABLET BY MOUTH EVERY DAY FOR 90 DAYS Patient did not bring medication list or bottles. Updated verbally with patient Allergies Medication Aleve TABS Allergy; Hives;; Updated By: Jane Solano; 10/15/2021 12:53:11 PM Vioxx Allergy; Anaphylaxis;; Updated By: Jane Solano; 10/15/2021 12:53:11 PM Social History Problems Caffeine use (V49.89) (Z78.9) 4-5 servings (more content not included)... Normal [employer] US THYROIDon 01-08-2022 US THYROID EXAMINATION: US THYROID HISTORY: Non-toxic uninodular goiter COMPARISON: Ultrasound thyroid biopsy 07/08/2021, ultrasound thyroid 05/13/2021 FINDINGS: RIGHT LOBE: Prior right lobectomy. Stable 5 x 4 x 3 mm hyperechoic area/nodule within right lobe fossa; nonspecific. Lobe size: Not applicable LEFT LOBE: 18 x 14 x 13 mm TR 3 nodule within mid body. Incidental 3 mm calcification within superior pole. 7 x 6 x 5 mm TR 4 nodule versus artifact within posterior superior pole. Nonspecific isoechoic 6 x 6 x 4 mm soft tissue structure anterior and slightly superior to the left lobe; nonspecific. Lobe size: 3.4 x 1.2 x 1.7 cm ISTHMUS: Normal size and echotexture. Thickness: 4 mm IMPRESSION: 1. Prior right lobectomy with stable 5 mm nodule versus residual tissue. 2. Grossly stable findings within left lobe except for possible new 7 mm TR 4 nodule versus artifact. Today's examination is slightly limited. Follow-up imaging in one year is recommended. TR 4: The [employer] TI-RADS committee's white paper recommendations for thyroid lesions classified as TR4 (moderately suspicious) are listed below: > 1.0 cm. Follow-up ultrasound in 1, 2, 3, and 5 years. > 1.5 cm. FNA. J. Am Nikunj Radiol 2017;14:587-595. Electronically authenticated by: AMAYA GRAMAJO Date: 2022-01-08 08:44 Normal [facility] CREATININEon 12-30-2021 Creatinine [Mass/Vol] 1.03 mg/dL Critically high 0.55-1.02 [facility] Comment on above: Performed By: #### P OCGLUC #### [facility] [address] [place] [address] [address] Soila Pastor EGFR-AF KUWAITI >60 Normal >=60 [facility] Comment on above: Performed By: #### P OCGLUC #### [facility] [address] [place] [address] [address] Soila Pastor EGFR-NON AF KUWAITI 52 mL/min/1.73m2 Critically low >=60 [facility] Comment on above: Performed By: #### P OCGLUC #### [facility] [address] [place] [address] NECK ST W CONon [address] W CON EXAMINATION: CT NECK ST W CON HISTORY: Mass of neck COMPARISON: 12/05/2021 TECHNIQUE: Axial, Coronal, and Sagittal CT images created with IV contrast. Dose reduction techniques were achieved by using automated exposure control and/or adjustment of mA and/or kV according to patient size and/or use of iterative reconstruction technique. FINDINGS: NASOPHARYNX: No asymmetry of the fossae of Rosenmuller and torus tubarius. ORAL CAVITY: No visible mass. OROPHARYNX: No asymmetry of the facial and lingual tonsils. HYPOPHARYNX: No mass or other visible lesion. LARYNX: No mass or asymmetry of the vocal cords. SINUSES: No significant fluid or mucosal thickening. NECK GLANDS: Symmetric prominent and submandibular glands. Asymmetry of the thyroid gland with enlarged heterogeneous left lobe and absent right lobe LYMPH NODES: No pathological-appearin g or enlarged lymph nodes. VASCULATURE: Moderate atherosclerosis of the visualized aorta. Moderate atherosclerosis) cephalic artery, right subclavian artery, right carotid bulb, left carotid bulb BONES: No significant osseous lesions. OTHER: Mild centrilobular emphysema. Prominent left jugular vein extending along the posterior trachea/prevertebral space IMPRESSION: Abnormality on barium swallow likely represents a prominent posterior location of the left jugular vein Electronically authenticated by: CARLOS SOOD Date: 2021-12-30 21:32 Normal [facility] XR MODIFIED BARIUM SWALLOWon 12-05-2021 XR MODIFIED BARIUM SWALLOW EXAMINATION: XR MODIFIED BARIUM SWALLOW HISTORY: Gastroesophageal reflux disease without esophagitis COMPARISON: No relevant comparison available. TECHNIQUE: A swallowing evaluation was performed with fluoroscopy in the usual manner. Standard level fluoroscopic mode of operation utilized. 2.8 minutes; 7 images. FINDINGS: ORAL PHASE: Slightly delayed movements with chewing and movement to pharynx. PHARYNGEAL PHASE: Normal swallowing. ASPIRATION: None. STRUCTURE: Mass effect anterior to the lower cervical spine deviating the proximal esophagus anteriorly approximately 2.5 cm. OTHER: Decreased esophageal peristalsis allowing swallowed contents to accumulate within the esophagus. IMPRESSION: 1. No aspiration. 2. Mass effect anterior to the lower cervical spine of uncertain etiology displacing the proximal esophagus anteriorly. Consider CT imaging of the neck soft tissues with IV contrast for further evaluation. 3. Markedly decreased esophageal peristalsis with tertiary waves resulting in delayed emptying and inability of contents within esophagus. This may contribute to reflux and patient's coughing. Please see speech pathologist's report for further discussion and recommendations. Electronically authenticated by: AMAYA GRAMAJO Date: 2021-12-05 17:48 Normal [facility] Echocardiogramon 11-11-[address], [address], [place] [address] TRANSTHORACIC ECHOCARDIOGRAM REPORT Patient Name: ELGIN GARZA Odalis Physician: [id number] Xochitl NORWOOD MD Study Date: 11/11/2021 Referring Physician: [id number] XOCHITL SMYTH MRN/PID: [id number] PCP: Yossi Landers Accession/Order#: [id number] Department Location: [facility] Sean Date of : 1940 Fellow: Gender: F Nurse: Admit Date: Manager Support: Eleanor Marcus RDCS, RVT Height: 162.56 cm CC Report to: Weight: 94.80 kg Study Type: Echocardiogram BSA: 1.99 m2 Blood Pressure: 124 /62 mmHg Diagnosis/ICD: I42.9-Cardiomyopathy, unspecified; R06.00-Dyspnea, unspecified Indication: CAD, HTN, Hyperlipidemia, Former Smoker, Bilateral Carotid Stenosis, Obesity Procedure/CPT: Echo Complete w Full Doppler-[id number] Study Detail: The following Echo studies were performed: 2D, M-Mode, Doppler and color flow. PHYSICIAN INTERPRETATION: Left Ventricle: The left ventricular systolic function is normal, with an estimated ejection fraction of 60%. The left ventricular cavity size is normal. Spectral Doppler shows an impaired relaxation pattern of left ventricular diastolic filling. Left Atrium: The left atrium is normal in size. Right Ventricle: The right ventricle is normal in size. There is normal right ventricular global systolic function. Right Atrium: The right atrium is normal in size. Aortic Valve: The aortic valve appears structurally normal. There is no evidence of aortic valve regurgitation. The peak instantaneous gradient of the aortic valve is 8.5 mmHg. The mean gradient of the aortic valve is 5.0 mmHg. Mitral Valve: The mitral valve is normal in structure. There is no evidence of mitral valve regurgitation. Tricuspid Valve: The tricuspid valve is structurally normal. No evidence of tricuspid regurgitation. Pulmonic Valve: The pulmonic valve is structurally normal. There is no indication of pulmonic valve regurgitation. Pericardium: There is no pericardial effusion noted. Aorta: The aortic root is normal. CONCLUSIONS: 1. The left ventricular systolic function is normal with a 60% estimated ejection fraction. 2. Spectral Doppler shows an impaired relaxation pattern of left ventricular diastolic filling. 3. No change when compared to prior study. QUANTITATIVE DATA SUMMARY: 2D MEASUREMENTS: Normal Ranges: Ao Root d: 2.90 cm (2.0-3.7cm) LAs: 3.30 cm (2.7-4.0cm) RVIDd: 3.20 cm (0.9-3.6cm) IVSd: 0.90 cm (0.6-1.1cm) LVPWd: 1.00 cm (0.6-1.1cm) LVIDd: 3.80 cm (3.9-5.9cm) LVIDs: 3.10 cm LV Mass Index: 54.7 g/m2 LV % FS 18.4 % LV SYSTOLIC FUNCTION BY 2D PLANIMETRY (MOD): Normal Ranges: EF-A4C View: 49.0 % (>55%) LV DIASTOLIC FUNCTION: Normal Ranges: MV Peak E: 0.78 m/s (0.7-1.2 m/s) MV Peak A: 1.00 m/s (0.42-0.7 m/s) E/A Ratio: 0.78 (1.0-2.2) MV lateral e' 0.08 m/s MV medial e' 0.07 m/s E/e' Ratio: 9.30 (<8.0) MITRAL VALVE: Normal Ranges: MV Vmax: 1.23 m/s (<1.3m/s) MV peak P.1 mmHg (<5mmHg) MV mean P.0 mmHg (<48mmHg) AORTIC VALVE: Normal Ranges: AoV Vmax: 1.46 m/s (<1.7m/s) AoV Peak P.5 mmHg (<20mmHg) AoV Mean P.0 mmHg (1.7-11.5mmHg) LVOT Max Piotr: 0.72 m/s (<1.1m/s) AoV VTI: 36.20 cm (18-25cm) LVOT VTI: 18.40 cm LVOT Diameter: 2.30 cm (1.8-2.4cm) AoV Area, VTI: 2.11 cm2 (2.5-5.5cm2) AoV Area,Vmax: 2.05 cm2 (2.5-4.5cm2) AoV Dimensionless Index: 0.51 PULMONIC VALVE: Normal Ranges: PV Max Piotr: 0.9 m/s (0.6-0.9m/s) PV Max P.3 mmHg [id number] Xochitl Smyth MD Electronically signed on 11/13/2021 at 4:32:53 PM Final Normal [facility] Office Visit (Cardiology)on 10-15-2021 Follow-up visit Diagnoses/Problems Assessed Coronary artery disease without angina pectoris (414.00) (I25.10) Bilateral carotid artery stenosis (433.10,433.30) (I65.23) Cardiomyopathy (425.4) (I42.9) Hyperlipidemia (272.4) (E78.5) Hypertension (401.9) (I10) Class 2 severe obesity with serious comorbidity and body mass index (BMI) of 35.0 to 35.9 in adult (278.01,V85.35) (E66.01,Z68.35) Diabetes mellitus (250.00) (E11.9) Former smoker (V15.82) (Z87.891) quit 1995, 2ppd Dyspnea (786.09) (R06.00) Orders Bilateral carotid artery stenosis, Coronary artery disease without angina pectoris, Hyperlipidemia Renew: Atorvastatin Calcium 40 MG Oral Tablet; TAKE 1 TABLET BY MOUTH EVERY DAY Cardiomyopathy, Coronary artery disease without angina pectoris Renew: Lisinopril 5 MG Oral Tablet; TAKE 1 TABLET BY MOUTH EVERY DAY Cardiomyopathy, Coronary artery disease without angina pectoris, Hypertension Changed: From Carvedilol 12.5 MG Oral Tablet TAKE 1 TABLET BY MOUTH TWICE A DAY WITH FOOD To Carvedilol 12.5 MG Oral Tablet take 1 tablet by mouth twice a day with food Cardiomyopathy, Dyspnea Echocardiogram; Status:Hold For - Scheduling,Retrospect julian Authorization; Requested for:15Oct2021; Class 2 severe obesity with serious comorbidity and body mass index (BMI) of 35.0 to 35.9 in adult Healthy Weight Tips; Status:Complete - Retrospective Authorization; Done: 15Oct2021 Coronary artery disease without angina pectoris Renew: Aspirin EC 81 MG Oral Tablet Delayed Release; TAKE 1 TABLET DAILY DIRECTED Continue with our present treatment plan.; Status:Complete - Retrospective Authorization; Done: 15Oct2021 SocHx: Former smoker Tobacco Use Screening; Status:Complete; Done: 15Oct2021 Patient Instructions By signing my name below, Alla Irvin Lpn,Scribe, attest that this documentation has been prepared under the direction and in the presence of Dr. Xochitl Smyth MD. All medical record entries made by the Scribe were at my direction and personally dictated by me. I have reviewed the chart and agree that the record accurately reflects my personal performance of the history, physical exam, discussion and plan. Please bring all medicines, vitamins, and herbal supplements with you when you come to the office. Prescriptions will not be filled unless you are compliant with your follow up appointments or have a follow up appointment scheduled as per instruction of your physician. Refills should be requested at the time of your visit. Follow up in 4-5 months Retrieve records from [facility] Chief Complaint overdue. ELGIN NORWOOD is being seen for an annual follow-up of. History of Present Illness Patient is here for follow-up continue management for history of nonischemic cardiomyopathy mild coronary artery disease. I have not seen her in almost 3 years. She was asked by her family physician to see me. She reports limited exercise tolerance and mild shortness of breath. She denies chest pain, lightheadedness, dizziness or syncope. She describes a vague episode last year with while in the hospital with pneumonia that she will had to be revived detail is lacking. She does not recall if any cardiac work-up was done. ASSESSMENT: 1. History of nonischemic cardiomyopathy and heart failure remotely improved. Continues to complain of mild shortness of breath 2. History of bilateral carotid disease underwent carotid angiogram did not require intervention 3. Mild shortness of breath due to obesity and deconditioning. 4. Previous report of edema has resolved. 5. Hypertension, controlled. 6. Obesity with about 10 pound weight loss. 7. Hyperlipidemia, on treatment. An 8. Patient reports possible cardiopulmonary resuscitation while in the hospital for pneumonia last year detail is lacking RECOMMENDATION: 1. The patient was advised to remain on current therapy. 2. The patient counseled regarding losing weight, exercise, and riskfactor adjustment. 3. 1 try to retrieve the result of her hospital record 4. we will repeat her echocardiogram and see her back in 3 to 4 months Surgical History Problems History of Back surgery History of Colonoscopy History of Hernia repair History of Hysterectomy History of Throat surgery Current Meds Medication NameInstruction Advair Diskus 250-50 MCG/ACT Inhalation Aerosol Powder Breath ActivatedTAKE 1 PUFF BY MOUTH TWICE A DAY ALPRAZolam 0.25 MG Oral TabletTAKE 1 TABLET BY MOUTH TWICE DAILY NEEDED FOR ANXIETY Aspirin EC 81 MG Oral Tablet Delayed ReleaseTAKE 1 TABLET DAILY DIRECTED. Atorvastatin Calcium 40 MG Oral TabletTAKE 1 TABLET BY MOUTH EVERY DAY Black Cohosh CAPSTAKE DIRECTED. buPROPion HCl ER (Smoking Det) 150 MG Oral Tablet Extended Release 12 HourTAKE 1 TABLET BY MOUTH TWICE A DAY Carvedilol 12.5 MG Oral TabletTAKE 1 TABLET BY MOUTH TWICE A DAY WITH FOOD DULoxetine HCl - 60 MG Oral Capsule Delayed Release ParticlesTAKE 1 CAPSULE BY MOUTH EVERY DAY (more content not included)... Normal [employer] Tobacco Screening.on 022 Adult depression screening assessment No [facility] 250 DO Work Phone: Fall risk assessment a) No falls within the last year [facility] 250 DO Work Phone: Tobacco use status [facility] b) No [facility] 250 DO Work Phone: US thyroidon 02-15-2019 [facility] Main [employer] [address] [place] [address] Ultrasound Report Signed Patient: Elgin Norwood MR#: [id number] : 1940 Acct:[id number] Age/Sex: 78 / F ADM Date: 02/15/19 Loc: Room: Type: [facility] Attending Dr: Araceli Ojeda Jr, MD Ordering Provider: Araceli Ojeda Jr, MD Date of Service: 02/15/19 US/US thyroid: LEFT THYROID NODULE Copies to: Araceli Ojeda Jr, MD Thyroid ultrasound 02/15/2019. CLINICAL DATA: Follow-up left thyroid lobe nodule. History of right thyroid lobectomy. FINDINGS: Sonographic evaluation of the thyroid was performed. The right lobe of the thyroid is surgically absent. No residual thyroid tissue is noted on the right. There are two small hyperechoic structures measuring 5 x 4 x 4 mm and 6 x 3 x 5 mm in the thyroidectomy bed. These findings have not significant changed when compared with a prior study performed 05/12/2018. The left lobe of the thyroid measures 3.5 x 1.3 x 1.1 cm in longitudinal, AP, and transverse dimensions. The left thyroid lobe demonstrates generalized heterogeneous echogenicity. There are multiple nodules measuring less than 1 cm in the left lobe of the thyroid. The thyroid isthmus measures 0.8 cm in thickness. There is a 2.0 x 0.9 x 1.7 cm nodule demonstrating heterogeneous echogenicity arising from the isthmus on the left. This finding appears to have slightly increased in size since a prior study performed 08/31/2018. US/US thyroid IMPRESSION: 1. Status post right thyroid lobectomy. 2. Two small hyperechoic structures in the thyroidectomy bed, not significantly changed. 3. Heterogeneous left thyroid lobe demonstrating multiple subcentimeter nodules. 4. Dominant nodule demonstrating heterogeneous echogenicity arising from the thyroid isthmus on the left, slightly increased in size. Impression dictated by: Nabeel Gupta Jr., M.D.02/15/2019 4:06 PM Dictation Location: [place] [address] Tech: Lyudmila Mendez Transcribed By: SHANTELLE 02/15/19 1606 Dictated By: Nabeel Gupta Jr, MD 02/15/19 1554 Signed By: 02/15/19 1606 [facility] US thyroidon 08-31-2018 thyroid [place] [address] Ultrasound Report Signed Patient: Elgin Norwood MR#: [id number] : 1940 Acct:[id number] Age/Sex: 78 / F ADM Date: 08/31/18 Loc: Room: Type: [facility] Attending Dr: Araceli Ojeda Jr, MD Ordering Provider: Araceli Ojeda Jr, MD Date of Service: 08/31/18 US/US thyroid: E04.1 Copies to: Araceli Ojeda Jr, MD US thyroid 08/31/2018 10:53 AM SIGNS AND SYMPTOMS: Follow-up left thyroid nodule, history of right thyroidectomy COMPARISON: 05/12/2018 FINDINGS: There is evidence of prior right-sided thyroidectomy. No residual thyroid tissue is noted in the thyroid bed. There is a similar echogenic focus measuring 0.7 x 0.6 x 0.3 cm. The left thyroid lobe measures 3.3 x 1.1 x 1.6 cm in dimension. The isthmus measures 0.4 cm in dimension. At the junction of the isthmus and left thyroid lobe there is a 1.7 x 1.1 x 1.6 cm heterogeneous cystic and solid complex nodule with features similar to that seen on the prior study. This has relatively well-defined borders, and lacks calcification, has ill-defined borders, and has hypoechoic components. This is unchanged in size. Multiple smaller anechoic cystic structures are noted. No cervical lymphadenopathy is noted. US/US thyroid IMPRESSION: TIRADS: 3 (mildly suspicious) Unchanged dominant nodule in the left thyroid lobe. This has features mildly suspicious for malignancy. Further evaluation at years 2, 3, and 5 are recommended according to the [employer] thyroid imaging and reporting data system. Impression dictated by: Karyn Nogueira M.D.08/31/2018 1:49 PM Dictation Location: [place] [address] Tech: Leigh Syed Transcribed By: SHANTELLE 08/31/18 1349 Dictated By: Karyn Nogueira II, MD 08/31/18 1342 Signed By: 08/31/18 1349 [facility] Vital Signs Date Time Vital Sign Value Performing Clinician Facility 02-26-2022 15:04-0400 Body height 162.56 cm Xochitl Smyth MD Work Phone: [facility] [employer] 250 DO Work Phone: 02-26-2022 15:04-0400 Body mass index (BMI) [Ratio] Medical Reason Not Done Xochitl Smyth MD Work Phone: [facility] [employer] 250 DO Work Phone: 02-26-2022 15:04-0400 Diastolic blood pressure 64 mm[Hg] Xochitl Smyth MD Work Phone: [facility] [employer] 250 DO Work Phone: 02-26-2022 15:04-0400 Heart rate 72 /min Xochitl Smyth MD Work Phone: [facility] 250 DO Work Phone: 02-26-2022 15:04-0400 Systolic blood pressure 120 mm[Hg] Xochitl Smyth MD Work Phone: [facility] 250 DO Work Phone: 10-15-2021 12:59-0400 Body height 162.56 cm Xochitl Smyth MD Work Phone: [facility] 250 DO Work Phone: 10-15-2021 12:59-0400 Body mass index (BMI) [Ratio] 35.87 kg/m2 Xochitl Smyth MD Work Phone: [facility] 250 DO Work Phone: 10-15-2021 12:59-0400 Body surface area Derived from formula 1.99 m2 Xochitl Smyth MD Work Phone: [facility] 250 DO Work Phone: 10-15-2021 12:59-0400 Body weight 94.8 kg Xochitl Smyth MD Work Phone: [facility] 250 DO Work Phone: 10-15-2021 12:59-0400 Diastolic blood pressure 68 mm[Hg] Xochitl Smyth MD Work Phone: [facility] 250 DO Work Phone: 10-15-2021 12:59-0400 Heart rate 66 /min Xochitl Smyth MD Work Phone: [facility] 250 DO Work Phone: 10-15-2021 12:59-0400 Systolic blood pressure 124 mm[Hg] Xochitl Smyth MD Work Phone: [facility] 250 DO Work Phone: Encounters Encounter Date Encounter Type Care Provider Facility Start: 07-27-2023 Refill Yossi Landers MD Work Phone: [facility] Comment on above: Essential hypertensi on ([facility]) Start: 07-20-2023 End: 07-20-2023 ambulatory ARACELI H SANJEEVROLAND Not Available Start: 05-11-2023 End: 05-11-2023 ambulatory YOSSI LANDERS Not Available Start: 10-15-2022 End: 10-16-2022 Evaluation and management of inpatient TANYA CARMEN . Facility:H1 Start: 10-14-2022 End: 10-15-2022 ambulatory KARYN WASHINGTON Facility:H1 Start: 08-24-2022 End: 08-24-2022 ambulatory LAYNE TERRAZAS Facility:H1 Start: 05-29-2022 End: 05-30-2022 ambulatory ARACEILDIPAK OJEDA Facility:[facility]1 Start: 04-14-2022 Patient encounter procedure [id number] SEAN HHVI ULTRASOUND 01 Work Phone: [facility] [place] Work Phone: Start: 04-14-[address] Xochitl Smyth Facility:[id number] Start: 02-26-2022 Office outpatient vi sit 25 minutes Xochitl Smyth MD Work Phone: [facility] 250 DO Work Phone: Start: 01-07-2022 End: 01-08-2022 ambulatory ARACELI JOYCESupriya Facility:H1 Start: 12-30-2021 End: 12-31-[address] YOSSI LANDERS Facility:H1 Start: 12-05-2021 End: 12-06-[address] YOSSI LANDERS Facility:H1 Start: 11-11-[address] Xochitl Smyth Facility:[id number] Start: 10-15-2021 Office outpatient vi sit 25 minutes Xochitl Smyth MD Work Phone: [facility] 250 DO Work Phone: Procedures Date Procedure Procedure Detail Performing Clinician Colonoscopy Xochitl banerjee MD Work Phone: Hernia repair Xochitl patel MD Work Phone: Hysterectomy Xochitl banerjee MD Work Phone: Procedure on back Xochitl rodriguez MD Work Phone: Surgical procedure Xochitl amador MD Work Phone: Plan of Treatment Date Care Activity Detail Author Start: 02-10-2024 Medicare Annual Wellness (AWV) Medicare Annual Wellness (AWV) [facility] Start: 08-10-2023 End: 08-10-2023 Patient encounter procedure 08/10/2023 9:15 AM EST Office Visit [facility] [address] [facility] [address] [place] [id number] Yossi Landers MD [address] [facility] [address] [place] [address] [facility] Start: 05-12-2023 Hemoglobin A1c measurement Diabetes: Hemoglobin A1C [facility] Start: 02-20-2023 Influenza vaccination Influenza Vaccine (#1) [facility] Start: 08-12-2022 FUV, Provider: Xochitl Smyth, Status: Pen, Time: 2:20 PM FUV, Provider: Xochitl Smyth, Status: Pen, Time: 2:20 PM [facility] 250 DO Work Phone: Start: 04-14-2022 CAROTID, Provider: SEAN STALLWORTHI ULTRASOUND ,[id number], Status: Pen, Time: 10:45 AM CAROTID, Provider: SEAN STALLWORTHI ULTRASOUND ,[id number], Status: Pen, Time: 10:[address] [facility] DO Work Phone: Start: 02-26-2022 FUV, Provider: Xochitl Smyth, Status: Pen, Time: 2:40 PM FUV, Provider: Xochitl Smyth, Status: Pen, Time: 2:40 PM [place] [address] DO Work Phone: Start: 11-11-2021 ECHO, Provider: SEAN ARTIS ULTRASOUND ,[id number], Status: Pen, Time: 10:45 AM ECHO, Provider: SEAN ARTIS ULTRASOUND ,[id number], Status: Pen, Time: 10:45 AM [place] [address] DO Work Phone: Start: 07-30-2020 Glaucoma screening Diabetes: Retinopathy Screening [facility] Start: 06-17-2018 Pneumococcal Vaccine: 65+ Years (2 - PPSV23 or PCV20) Pneumococcal Vaccine: 65+ Years (2 - PPSV23 or PCV20) [facility] Immunizations Immunization Date Immunization Notes Care Provider Sarah cruz 09-16-2020 Pfizer-BioNTech COVID-19 Vacc 30 MCG/0.3ML Intramuscular Suspension Xochitl Smyth MD Work Phone: [place] [address] DO Work Phone: 08-25-2020 Pfizer-BioNTech COVID-19 Vacc 30 MCG/0.3ML Intramuscular Suspension Xochitl Smyth MD Work Phone: [place] [address] DO Work Phone: 05-07-2018 pneumococcal conjuga te vaccine, 13 valent Xochitl Smyth MD Work Phone: [place] [address] DO Work Phone: 04-22-2018 pneumococcal conjuga te vaccine, 13 valent Xochitl Smyth MD Work Phone: [facility] 11-28-2015 zoster vaccine, live Xochitl Smyth MD Work Phone: [facility] 01-10-2015 zoster vaccine, live Xochitl Smyth MD Work Phone: [facility] Healthcare Payers Date Payer Category Payer Medicare [id number] 2022 Medicare [employer] MEDICARE ADVANTAGE HU[employer] MEDICARE [id number] 2022-Present [address] [address] [place] [address] [id number] 1959 Medicaid [id number] 1957 Medicare [id number] 1940 Unknown [id number] 1940 Unknown [id number] 1940 Unknown [id number] 1940 Unknown [id number] 1942 Unknown [id number] 1942 Unknown [id number] [id number] 1942 Unknown [id number] [id number] 1942 Unknown [id number] [id number] 1942 Unknown [id number] [id number] 1942 Unknown [id number] 1940 Unknown [id number] Unknown Social History Date Type Detail Facility Start: 11-12-2022 End: 02-09-2023 No alcohol use No alcohol use [facility] Comment on above: 4-5 servings daily; quit 1995, 2ppd; Start: 11-20-2022 Tobacco smoking stat us [facility] Ex-smoker [facility] Work Phone: End: 10-27-2012 History of tobacco use Current smoker [facility] End: 10-27-2012 History of tobacco use Cigarette Smoker [facility] Start: 11-20-2022 Tobacco use and exposure Smoke less tobacco non-user [facility] Start: 07-20-2023 Alcohol intake Ex-drinker (finding) [facility] Start: 11-12-2022 End: 02-09-2023 Humiliation, Afraid, Rape, and Kick questionnaire [HARK] [facility] Within the last year , have you been afraid of your partner or ex-partner? No [facility] Are you now , , , , never or living with a partner? [facility] How hard is it for y ou to pay for the very basics like food, housing, medical care, and heating Not very hard [facility] Do you feel stress - tense, restless, nervous, or anxious, or unable to sleep at night because your mind is troubled all the time - these days [OSQ] Not at all [facility] (I/We) worried wheth er (my/our) food would run out before (I/we) got money to buy more. Never true [facility] In the past 12 month s, has lack of transportation kept you from medical appointments or from getting medications? No [facility] Start: 06-07-2023 Alcohol Comment caffeine intak e: 2-3 cups per day of coffee [facility] Start: 1940 Sex Assigned At Not on file [facility] Medical Equipment Procedure Code Equipment Code Equipment Origin al Text Equipment Identifier Dates 1 each by Other route 1 (one) time each day at the same time. [id number] USE 1 LANCET TO TEST BLOOD SUGAR ONCE DAILY [id number] Start: 11-05-2022 Telephone encounter Note 07-27-2023 Telephone Encounter - PHILIP Magallanes - 07/27/2023 8:00 AM EST Note Date & Type Note Facility 07-27-2023 Telephone encount er Note sent [facility] Note 07-27-2023 Telephone Encounter - PHILIP Magallanes - 07/27/2023 8:00 AM EST Note Date & Type Note Facility 07-27-2023 Miscellaneous Notes Formattin g of this note might be different from the original. sent documented in this encounter [facility] History of Present illness Narrative 11-02-2020 Note Date & Type Note Facility 11-02-2020 History of Present illness Narrative Patient is here for follow-up continue management for history of nonischemic cardiomyopathy mild coronary artery disease. I have not seen her in almost 3 years. She was asked by her family physician to see me. She reports limited exercise tolerance and mild shortness of breath. She denies chest pain, lightheadedness, dizziness or syncope. She describes a vague episode last year with while in the hospital with pneumonia that she will had to be revived detail is lacking. She does not recall if any cardiac work-up was done.ASSESSMENT:1. History of nonischemic cardiomyopathy and heart failure remotely improved. Continues to complain of mild shortness of breath2. History of bilateral carotid disease underwent carotid angiogram did not require intervention3. Mild shortness of breath due to obesity and deconditioning.4. Previous report of edema has resolved.5. Hypertension, controlled.6. Obesity with about 10 pound weight loss.7. Hyperlipidemia, on treatment. An8. Patient reports possible cardiopulmonary resuscitation while in the hospital for pneumonia last year detail is lackingRECOMMENDATION:1. The patient was advised to remain on current therapy.2. The patient counseled regarding losing weight, exercise, and riskfactor adjustment.3. 1 try to retrieve the result of her hospital record4. we will repeat her echocardiogram and see her back in 3 to 4 months [facility] Work Phone: History of Present illness Narrative 10-15-2020 Note Date & Type Note Facility 10-15-2020 History of Present illness Narrative Patient is here for follow-up continue management for history of nonischemic cardiomyopathy mild coronary artery disease. I have not seen her in almost 3 years. She was asked by her family physician to see me. She reports limited exercise tolerance and mild shortness of breath. She denies chest pain, lightheadedness, dizziness or syncope. She describes a vague episode last year with while in the hospital with pneumonia that she will had to be revived detail is lacking. She does not recall if any cardiac work-up was done.ASSESSMENT:1. History of nonischemic cardiomyopathy and heart failure remotely improved. Continues to complain of mild shortness of breath2. History of bilateral carotid disease underwent carotid angiogram did not require intervention3. Mild shortness of breath due to obesity and deconditioning.4. Previous report of edema has resolved.5. Hypertension, controlled.6. Obesity with about 10 pound weight loss.7. Hyperlipidemia, on treatment. An8. Patient reports possible cardiopulmonary resuscitation while in the hospital for pneumonia last year detail is lackingRECOMMENDATION:1. The patient was advised to remain on current therapy.2. The patient counseled regarding losing weight, exercise, and riskfactor adjustment.3. 1 try to retrieve the result of her hospital record4. we will repeat her echocardiogram and see her back in 3 to 4 months [facility] [employer] DO Work Phone: Evaluation note Note Date & Type Note Facility Evaluation note Diagnosis Essential hypertension (CMS/[facility]) Unspecified essential hypertension documented in this encounter [facility] History of Present illness Narrative Note Date & Type Note Facility History of Present illness Narrative Patient is here for follow-up continue management for history of nonischemic cardiomyopathy improved medical therapy, carotid disease, shortness of breath, hypertension and obesity. Since last time I saw her however she admits to limited exercise tolerance due to her obesity and COPD. She denies any complaint of chest pain, palpitation, lightheadedness, dizziness or syncope. Her recent echocardiogram showed normal LV systolic function. Remote heart cath showed moderate one-vessel disease affecting the proximal circumflex. No chest pain was reportedASSESSMENT:1. History of nonischemic cardiomyopathy and heart failure remotely improved. Continues to complain of mild shortness of breath this appears to be due to COPD. Her recent echo showed normal LV systolic function2. History of bilateral carotid disease underwent carotid angiogram did not require intervention3. Mild shortness of breath due to obesity and deconditioning.4. Previous report of edema has resolved.5. Hypertension, controlled.6. Obesity7. Hyperlipidemia, on treatment.8. Patient reports possible cardiopulmonary resuscitation while in the hospital for pneumonia last year the record which was scratchy but no clear mention of cardiopulmonary resuscitation was noted9. COPDRECOMMENDATION:1. The patient was advised to remain on current therapy.2. The patient counseled regarding losing weight, exercise, and riskfactor adjustment.3. I reviewed her recent echocardiogram and hospital record4. I encouraged her to lose weight and exercise5. We will see her back in 9 months and follow-up in6. We will repeat her carotid Doppler -[facility] Work Phone: History of Present illness Narrative Note Date & Type Note Facility History of Present illness Narrative Patient is here for follow-up continue management for history of nonischemic cardiomyopathy improved medical therapy, carotid disease, shortness of breath, hypertension and obesity. Since last time I saw her however she admits to limited exercise tolerance due to her obesity and COPD. She denies any complaint of chest pain, palpitation, lightheadedness, dizziness or syncope. Her recent echocardiogram showed normal LV systolic function. Remote heart cath showed moderate one-vessel disease affecting the proximal circumflex. No chest pain was reportedASSESSMENT:1. History of nonischemic cardiomyopathy and heart failure remotely improved. Continues to complain of mild shortness of breath this appears to be due to COPD. Her recent echo showed normal LV systolic function2. History of bilateral carotid disease underwent carotid angiogram did not require intervention3. Mild shortness of breath due to obesity and deconditioning.4. Previous report of edema has resolved.5. Hypertension, controlled.6. Obesity7. Hyperlipidemia, on treatment.8. Patient reports possible cardiopulmonary resuscitation while in the hospital for pneumonia last year the record which was scratchy but no clear mention of cardiopulmonary resuscitation was noted9. COPDRECOMMENDATION:1. The patient was advised to remain on current therapy.2. The patient counseled regarding losing weight, exercise, and riskfactor adjustment.3. I reviewed her recent echocardiogram and hospital record4. I encouraged her to lose weight and exercise5. We will see her back in 9 months and follow-up in6. We will repeat her carotid Doppler [facility] Work Phone: Summary Purpose Family History Unknown Family Member Name Dates Details Family history of acute myoc ardial infarction: Brother(V17.3, Z82.49) Status:Active Family history of congestive heart failure: Mother(V17.49, Z82.49) Status:Active Family history of diabetes m ellitus: Sister(V18.0, Z83.3) Status:Active Family history of malignant neoplasm: Father(V16.9, Z80.9) Status:Active Unknown Family Member Name Dates Details Family history of diabetes m ellitus: Sister(V18.0, Z83.3) Status:Active Family history of malignant neoplasm: Father(V16.9, Z80.9) Status:Active Family history of congestive heart failure: Mother(V17.49, Z82.49) Status:Active Family history of acute myoc ardial infarction: Brother(V17.3, Z82.49) Status:Active Unknown Family Member Name Dates Details Family history of diabetes m ellitus: Sister(V18.0, Z83.3) Status:Active Family history of malignant neoplasm: Father(V16.9, Z80.9) Status:Active Family history of congestive heart failure: Mother(V17.49, Z82.49) Status:Active Family history of acute myoc ardial infarction: Brother(V17.3, Z82.49) Status:Active Unknown Family Member Name Dates Details Family history of acute myoc ardial infarction: Brother(V17.3, Z82.49) Status:Active Family history of congestive heart failure: Mother(V17.49, Z82.49) Status:Active Family history of diabetes m ellitus: Sister(V18.0, Z83.3) Status:Active Family history of malignant neoplasm: Father(V16.9, Z80.9) Status:Active Unknown Family Member Name Dates Details Family history of acute myoc ardial infarction: Brother(V17.3, Z82.49) Status:Active Family history of congestive heart failure: Mother(V17.49, Z82.49) Status:Active Family history of diabetes m ellitus: Sister(V18.0, Z83.3) Status:Active Family history of malignant neoplasm: Father(V16.9, Z80.9) Status:Active Advance Directives No Advanced Directives Records FoundNo Advanced Directives Records FoundNo Advanced Directives Records FoundNo Advanced Directives Records FoundNo Advanced Directives Records Found Chief Complaint * overdue. * ELGIN NORWOOD is being seen for an annual follow-up of. * overdue. * ELGIN NORWOOD is being seen for an annual follow-up of. ELGIN NORWOOD is being seen for a 4 month follow-up of.ELGIN NORWOOD is being seen for a 4 month follow-up of. Additional Source Comments INFORMATION SOURCE (unrecogn ized section and content) DATE CREATED AUTHOR 02/16/2019 [facility] DATE CREATED AUTHOR AUTHOR'S ORGANIZ ATION 02/27/2022 [employer] DATE CREATED AUTHOR AUTHOR'S ORGANIZ ATION 04/15/2022 [facility] DATE CREATED AUTHOR AUTHOR'S ORGANIZ ATION 10/25/2022 [facility] DATE CREATED AUTHOR AUTHOR'S ORGANIZ ATION 07/20/2023 [facility] EPIC Reason for Visit (unrecogniz ed section and content) Reason Comments Med Refill Care Teams (unrecognized sec tion and content) [employer] Relationship Specialty Start Date End Date Yossi Landers MD [address] [facility] [address] [place] [address] PCP - General Internal Medicine 11/03/22 Yossi Landers MD [address] [place] [address] PCP - [employer] 11/20/22 FOR RECORDS PERTAINING TO PATIENTS WHO ARE OR HAVE BEEN ENROLLED IN A CHEMICAL DEPENDENCY/SUBSTANCEABUSE PROGRAM, SOME INFORMATION MAY BE OMITTED. This clinical summary was aggregated from multiple sources. Caution should be exercised in using it in the provision of clinical care. This summary normalizes information from multiple sources, and as a consequence, information in this document may materially change the coding, format and clinical context of patient data. In addition, data may be omitted in some cases. CLINICAL DECISIONS SHOULD BE BASED ON THE PRIMARY CLINICAL RECORDS. [facility]. provides no warranty or guarantee of the accuracy or completeness of information in this document.
[2023-08-02 12:15] LABS: Basophils Absolute Auto 0.1 10^3/uL (0.0-0.1); Basophils Percent Auto 0.6 % (0.2-2.0); Eosinophils Absolute Auto 0.2 10^3/uL (0.0-0.7); Eosinophils Percent Auto 1.6 % (0.9-7.0); Hematocrit 36.9 % (36.0-48.0); Hemoglobin 11.3 g/dL (12.0-16.0); Immature Granulocytes Abs Auto 0.03 10^3/uL (0.00-0.03); Immature Granulocytes Pct Auto 0.3 % (0.0-0.5); Lymphocytes Absolute Auto 1.5 10^3/uL (1.2-3.8); Lymphocytes Percent Auto 15.1 % (20.5-60.0); Mean Corpuscular HGB Conc 30.6 g/dL (29.9-35.2); Mean Corpuscular Hemoglobin 29.7 pg (26.7-34.0); Mean Corpuscular Volume 96.9 fL (81.0-99.0); Mean Platelet Volume 10.6 fL (9.5-13.5); Monocytes Absolute Auto 0.5 10^3/uL (0.3-0.8); Monocytes Percent Auto 4.8 % (1.7-12.0); Neutrophils Absolute Auto 7.7 10^3/uL (1.4-6.5); Neutrophils Percent Auto 77.6 % (43.0-75.0); Platelet Count 139 10^3/uL (150-450); Red Blood Count 3.81 10^6/uL (4.20-5.40); Red Cell Distribution Width 13.9 % (11.0-15.0)
[2023-08-02 12:15] LABS: Bilirubin Urine NEGATIVE (NEGATIVE); Blood Urine NEGATIVE (NEGATIVE); Clarity Urine CLEAR (CLEAR); Color Urine LT. YELLOW (YELLOW); Glucose Urine UA NEGATIVE (NEGATIVE); Ketones Urine NEGATIVE (NEGATIVE); Leukocyte Esterase Urine NEGATIVE (NEGATIVE); Nitrite Urine NEGATIVE (NEGATIVE); Protein Urine NEGATIVE (NEG/TRACE); Urobilinogen Urine 0.2 EU/dL (0.2-1.0); pH Urine 5.5 (5.0-9.0)
[2023-08-02 12:16] LABS: Urine Microscopic Indicated NO
[2023-08-02 12:29] LABS: Alanine Aminotransferase 14 U/L (14-59); Albumin Globulin Ratio 0.8; Albumin Level 2.9 g/dL (3.4-5.0); Alkaline Phosphatase 92 U/L (46-116); Anion Gap 11.4; Aspartate Amino Transferase 15 U/L (15-37); BUN Creatinine Ratio 11.1; Bilirubin Total 0.5 mg/dL (0.2-1.0); Calcium 8.9 mg/dL (8.5-10.1); Carbon Dioxide 28.7 mmol/L (21.0-32.0); Chloride 105 mmol/L (98-107); Estimated GFR (African America 59 (>=60); Estimated GFR (Non-African Ame 49 (>=60); Globulin 3.5 g/dL; Glucose 110 mg/dL (74-106); Potassium 4.1 mmol/L (3.5-5.1); Sodium 141 mmol/L (136-145); Total Protein 6.4 g/dL (6.4-8.2)
--- OUTSIDE RECORDS SUMMARY | 2023-08-02 14:48 | XMS_ITS | CCD ---
Author Name Unknown Address [address] [place] [address] Organization [facility] Care Team Providers Care Senior Solutions Engineer Name Role Phone Unavailable Unavailable Libra, Dr. Durbin Attending Unavaila tere Landers II, Yossi Meyer [facility] Care Unavail able Libra, Dr. Durbin Referring [...] JORDAN, DR TERRAZAS Attending Unavailable JORDAN, DR TERRZAAS Admitting Unavailable BARRIE, DR CARLOS Mcghee Consulting [...] Primary Care Provider Yossi Landers MD Unavailable [phone] Allergies Allergy Classification Reported Allergen(s) Allergy Type Date of Onset Reaction(s) Facility (6 sources) Naproxen; 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: [Aleve TABS] Drug Allergy 12-13-2020 Hives [facility] [employer] DO Work Phone: (5 sources) rofecoxib; 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: [Vioxx] Drug Allergy Anaphylaxis [place] [address] DO Work Phone: (1 source) Benztropine Drug Allergy 06-14-2021 [facility] (1 source) Naproxen Drug Allergy 03-25-2013 [facility] (1 source) Naproxen Drug Allergy 06-14-2021 [facility] (1 source) rofecoxib Drug Allergy 03-25-2013 [facility] (1 source) Benztropine Drug Allergy 11-30-2019 Other [facility] (1 source) Benztropine Drug Allergy 11-30-2019 [facility] Work Phone: Medications Current Medications Medication Drug Class(es) Dates Sig (Normalized) Sig (Original) acetaminophen 325 mg / HYDROcodone bitartrate 7.5 mg oral tablet (6 sources) Opioid Agonist Start: 07-01-2023 take 1 tablet by mouth every six hours for pain HYDROcodone-acetami nophen (Pony) 7.5-325 MG tablet Indications: Degenerative lumbar spinal [...] Ordered: 14-Oct-2021 DO Start : 14-Oct-2021 Active [id number] 200 actuat albuterol 0.09 mg/actuat metered dose [...] Active Start: 10-07-2021 take 1 tablet by [facility] twice daily as needed for anxiety [...] Active Start: 07-30-2021 take 1 capsule by [facility] once daily DULoxetine HCl - 60 MG [...] capsule 3 12/10/2022 Active polyethylene glycol 3350 89529 mg powder for oral solution (1 source) [...] [Coronary atherosclerosis of unspecified type of vessel, red lake or graft] Onset: 04-14-2022 11-04-2022 Chronic Diabetes [...] 08-25-2022 11-04-2022 Chronic Other aftercare (1 source) 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; 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: [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 They have not been cleared or approved by the Food and Drug Administration. Reference Range: 8 AM 0.10 - 1.20 4 PM 0.042 - 0.872 Performed By: #### E RUR #### [facility] [address] [place] [address] Dr. Soila Pastor CBC AUTO DIFFon 10-16-2022 BASO # 0.0 103/ul Normal 0.0-0.1 [facility] Comment on above: Performed By: #### C BC #### [facility] [address] [place] [address] Dr. Soila Pastor Basophils/100 WBC (Bld) 0.4 % Normal 0.2-2.0 [facility] Comment on above: Performed By: #### C BC #### [facility] [address] [place] [address] Dr. Soila Pastor EO # 0.1 103/ul Normal 0.0-0.7 [facility] Comment on above: Performed By: #### C BC #### [facility] [address] [place] [address] Dr. Soila Pastor Eosinophils/100 WBC (Bld) 1.0 % Normal 0.9-7.0 [facility] Comment on above: Performed By: #### C BC #### [facility] [address] [place] [address] Dr. Soila Pastor Erythrocyte distribution width (RBC) [Ratio] 13.4 % Normal 11.0-15.0 [facility] Comment on above: Performed By: #### C BC #### [facility] [address] [place] [address] Dr. Soila Pastor Hematocrit (Bld) [Volume fraction] 34.7 % Critically low 36.0-48.0 [facility] Comment on above: Performed By: #### C BC #### [facility] [address] [place] [address] Dr. Soila Pastor Hemoglobin (Bld) [Mass/Vol] 10.8 g/dL Critically low 12.0-16.0 [facility] Comment on above: Performed By: #### C BC #### [facility] [address] [place] [address] Dr. Soila Pastor IG # 0.03 10e3/ul Normal 0.00-0.03 [facility] Comment on above: Performed By: #### C BC #### [facility] [address] [place] [address] Dr. Soila Pastor IG % 0.4 % Normal 0.0-0.5 [facility] Comment on above: Performed By: #### C BC #### [facility] [address] [place] [address] Dr. Soila Pastor LYMPH # 1.7 103/ul Normal 1.2-3.8 [facility] Comment on above: Performed By: #### C BC #### [facility] [address] [place] [address] Dr. Soila Pastor Lymphocytes/100 WBC (Bld) 22.1 % Normal 20.5-60.0 [facility] Comment on above: Performed By: #### C BC #### [facility] [address] [place] [address] Dr. Soila Pastor MANUAL DIFF REQ NO Normal [facility] Comment on above: Performed By: #### C BC #### [facility] [address] [place] [address] Dr. Soila Pastor MCH (RBC) [Entitic mass] 30.0 pg Normal 26.7-34.0 [facility] Comment on above: Performed By: #### C BC #### [facility] [address] [address] [address] Soila Pastor MCHC (RBC) [Mass/Vol] 31.1 g/dL Normal 29.9-35.2 [facility] Comment on above: Performed By: #### C BC #### [facility] [address] [address] [address] Soila Pastor MCV (RBC) [Entitic vol] 96.4 fL Normal 81.0-99.0 [facility] Comment on above: Performed By: #### C BC #### [facility] [address] [address] [address] Soila Pastor MONO # 0.5 103/ul Normal 0.3-0.8 [facility] Comment on above: Performed By: #### C BC #### [facility] [address] [address] [address] Soila Pastor Monocytes/100 WBC (Bld) 6.9 % Normal 1.7-12.0 [facility] Comment on above: Performed By: #### C BC #### [facility] [address] [address] [address] Soila Pastor NEUT # 5.4 103/ul Normal 1.4-6.5 [facility] Comment on above: Performed By: #### C BC #### [facility] [address] [address] [address] Soila Pastor Neutrophils/100 WBC (Bld) 69.2 % Normal 43.0-75.0 [facility] Comment on above: Performed By: #### C BC #### [facility] [address] [address] [address] Soila Pastor Platelet mean volume (Bld) [Entitic vol] 11.8 fL Normal 9.5-13.5 [facility] Comment on above: Performed By: #### C BC #### [facility] [address] [address] [address] Soila Pastor PLT 128 103/ul Critically low 150-450 [facility] Comment on above: Performed By: #### C BC #### [facility] [address] [address] [address] Soila Pastor RBC 3.60 106/ul Critically low 4.20-5.40 [facility] Comment on above: Performed By: #### C BC #### [facility] [address] [address] [address] Soila Pastor WBC 7.9 103/ul Normal 4.0-11.0 [facility] Comment on above: Performed By: #### C BC #### [facility] [address] [address] [address] Soila Pastor PROF 14(COMP METB)on 023 Albumin [Mass/Vol] 2.4 g/dL Critically low 3.4-5.0 [facility] Comment on above: Performed By: #### C MP #### [facility] [address] [place] [address] Dr. Soila Pastor Albumin/Globulin [Mass ratio] 0.7 {ratio} Normal [facility] Comment on above: Performed By: #### C MP #### [facility] [address] [place] [address] Dr. Soila Pastor ALP [Catalytic activity/Vol] 66 U/L Normal 46-116 [facility] Comment on above: Performed By: #### C MP #### [facility] [address] [place] [address] Dr. Soila Pastor ALT [Catalytic activity/Vol] 15 U/L Normal 14-59 [facility] Comment on above: Performed By: #### C MP #### [facility] [address] [place] [address] Dr. Soila Pastor Anion gap [Moles/Vol] 12.1 mmol/L Normal [facility] Comment on above: Performed By: #### C MP #### [facility] [address] [place] [address] Dr. Soila Pastor AST [Catalytic activity/Vol] 18 U/L Normal 15-37 [facility] Comment on above: Performed By: #### C MP #### [facility] [address] [address] [address] Soila Pastor Bilirubin [Mass/Vol] 0.3 mg/dL Normal 0.2-1.0 [facility] Comment on above: Performed By: #### C MP #### [facility] [address] [address] [address] Soila Pastor Calcium [Mass/Vol] 8.6 mg/dL Normal 8.5-10.[address] [facility] Comment on above: Performed By: #### C MP #### [facility] [address] [address] [address] Soila Pastor Chloride [Moles/Vol] 110 mmol/L Critically high 98-107 [facility] Comment on above: Performed By: #### C MP #### [facility] [address] [place] [address] Dr. Soila Pastor CO2 [Moles/Vol] 26.2 mmol/L Normal 21.0-32.0 [facility] Comment on above: Performed By: #### C MP #### [facility] [address] [address] [address] Soila Pastor Creatinine [Mass/Vol] 0.74 mg/dL Normal 0.55-1.02 [facility] Comment on above: Performed By: #### C MP #### [facility] [address] [place] [address] Dr. Soila Pastor EGFR-AF MACANESE >60 Normal >=60 [facility] Comment on above: Performed By: #### C MP #### [facility] [address] [place] [address] Dr. Soila Pastor EGFR-NON AF MACANESE >60 Normal >=60 [facility] Comment on above: Performed By: #### C MP #### [facility] [address] [address] [address] Soila Pastor Globulin (S) [Mass/Vol] 3.6 g/dL Normal [facility] Comment on above: Performed By: #### C MP #### [facility] [address] [address] [address] Soila Pastor Glucose [Mass/Vol] 119 mg/dL Critically high 74-106 [facility] Comment on above: Performed By: #### C MP #### [facility] [address] [address] [address] Soila Pastor Potassium [Moles/Vol] 3.3 mmol/L Critically low 3.5-5.1 [facility] Comment on above: Performed By: #### C MP #### [facility] [address] [address] [address] Soila Pastor Protein [Mass/Vol] 6.0 g/dL Critically low 6.4-8.2 [facility] Comment on above: Performed By: #### C MP #### [facility] [address] [place] [address] Dr. Soila Pastor Sodium [Moles/Vol] 145 mmol/L Normal 136-[address] [facility] Comment on above: Performed By: #### C MP #### [facility] [address] [address] [address] Soila Pastor Urea nitrogen [Mass/Vol] 11.0 mg/dL Normal 7.0-18.0 [facility] Comment on above: Performed By: #### C MP #### [facility] [address] [place] [address] Dr. Soila Pastor Urea nitrogen/Creatinine [Mass ratio] 14.9 mg/mg Normal [facility] Comment on above: Performed By: #### C MP #### [facility] [address] [address] [address] Soila Pastor CARDIAC KARYN 3-6on 3 CK [Catalytic activity/Vol] 251 U/L Critically high 26-192 [facility] Comment on above: Performed By: #### E RUR #### [facility] [address] [place] [address] Dr. Soila Pastor CK.MB [Mass/Vol] 4.50 ng/mL Critically high <=3.60 [facility] Comment on above: Performed By: #### E RUR #### [facility] [address] [place] [address] Dr. Soila Pastor HSTROP 6.9 pg/mL Normal 4.0-51.3 [facility] Comment on above: Result Comment: CUT- OFF POINTS HAVE BEEN ESTABLISHED BASED ON THE FOURTH UNIVERSAL DEFINITIONS OF MYOCARDIAL INFARCTION. THE UPPER REFERENCE LIMIT (URL) OF TROPONIN, DEFINED THE 99TH PERCENTILE OF cTnI DISTRIBUTION IN A REFERENCE POPULATION, HAS BEEN CONFIRMED THE DECISION THRESHOLD FOR FL DIAGNOSIS. Performed By: #### E RUR #### [facility] [address] [place] [address] Dr. Soila Pastor CK [Catalytic activity/Vol] 143 U/L Normal 26-192 [facility] Comment on above: Performed By: #### E RUR #### [facility] [address] [place] [address] Dr. Soila Pastor CK.MB [Mass/Vol] 4.50 ng/mL Critically high <=3.60 [facility] Comment on above: Performed By: #### E RUR #### [facility] [address] [place] [address] Dr. Soila Pastor HSTROP 8.9 pg/mL Normal 4.0-51.3 [facility] Comment on above: Result Comment: CUT- OFF POINTS HAVE BEEN ESTABLISHED BASED ON THE FOURTH UNIVERSAL DEFINITIONS OF MYOCARDIAL INFARCTION. THE UPPER REFERENCE LIMIT (URL) OF TROPONIN, DEFINED THE 99TH PERCENTILE OF cTnI DISTRIBUTION IN A REFERENCE POPULATION, HAS BEEN CONFIRMED THE DECISION THRESHOLD FOR FL DIAGNOSIS. Performed By: #### E RUR #### [facility] [address] [place] [address] Dr. Soila Pastor CBC AUTO DIFFon 10-15-2022 BASO # 0.0 103/ul Normal 0.0-0.1 [facility] Comment on above: Performed By: #### C BC #### [facility] [address] [place] [address] Dr. Soila Pastor Basophils/100 WBC (Bld) 0.2 % Normal 0.2-2.0 [facility] Comment on above: Performed By: #### C BC #### [facility] [address] [place] [address] Dr. Soila Pastor EO # 0.0 103/ul Normal 0.0-0.7 [facility] Comment on above: Performed By: #### C BC #### [facility] [address] [place] [address] Dr. Soila Pastor Eosinophils/100 WBC (Bld) 0.4 % Critically low 0.9-7.0 [facility] Comment on above: Performed By: #### C BC #### [facility] [address] [place] [address] Dr. Soila Pastor Erythrocyte distribution width (RBC) [Ratio] 13.7 % Normal 11.0-15.0 [facility] Comment on above: Performed By: #### C BC #### [facility] [address] [place] [address] Dr. Soila Pastor Hematocrit (Bld) [Volume fraction] 34.4 % Critically low 36.0-48.0 [facility] Comment on above: Performed By: #### C BC #### [facility] [address] [place] [address] Dr. Soila Pastor Hemoglobin (Bld) [Mass/Vol] 10.7 g/dL Critically low 12.0-16.0 [facility] Comment on above: Performed By: #### C BC #### [facility] [address] [place] [address] Dr. Soila Pastor IG # 0.21 10e3/ul Critically high 0.00-0.03 [facility] Comment on above: Performed By: #### C BC #### [facility] [address] [place] [address] Dr. Soila Pasotr IG % 2.1 % Critically high 0.0-0.5 [facility] Comment on above: Performed By: #### C BC #### [facility] [address] [place] [address] Dr. Soila Pastor LYMPH # 0.9 103/ul Critically low 1.2-3.8 [facility] Comment on above: Performed By: #### C BC #### [facility] [address] [place] [address] Dr. Soila Pastor Lymphocytes/100 WBC (Bld) 8.9 % Critically low 20.5-60.0 [facility] Comment on above: Performed By: #### C BC #### [facility] [address] [place] [address] Dr. Soila Pastor MANUAL DIFF REQ NO Normal [facility] Comment on above: Performed By: #### C BC #### [facility] [address] [place] [address] Dr. Soila Pastor MCH (RBC) [Entitic mass] 30.7 pg Normal 26.7-34.0 [facility] Comment on above: Performed By: #### C BC #### [facility] [address] [place] [address] Dr. Soila Pastor MCHC (RBC) [Mass/Vol] 31.1 g/dL Normal 29.9-35.2 [facility] Comment on above: Performed By: #### C BC #### [facility] [address] [place] [address] Dr. Soila Pastor MCV (RBC) [Entitic vol] 98.9 fL Normal 81.0-99.0 [facility] Comment on above: Performed By: #### C BC #### [facility] [address] [place] [address] Dr. Soila Pastor MONO # 0.4 103/ul Normal 0.3-0.8 [facility] Comment on above: Performed By: #### C BC #### [facility] [address] [place] [address] Dr. Soila Pastor Monocytes/100 WBC (Bld) 4.3 % Normal 1.7-12.0 [facility] Comment on above: Performed By: #### C BC #### [facility] [address] [place] [address] Dr. Soila Pastor NEUT # 8.4 103/ul Critically high 1.4-6.5 [facility] Comment on above: Performed By: #### C BC #### [facility] [address] [place] [address] Dr. Soila Pastor Neutrophils/100 WBC (Bld) 84.1 % Critically high 43.0-75.0 [facility] Comment on above: Performed By: #### C BC #### [facility] [address] [place] [address] Dr. Soila Pastor Platelet mean volume (Bld) [Entitic vol] 12.2 fL Normal 9.5-13.5 [facility] Comment on above: Performed By: #### C BC #### [facility] [address] [place] [address] Dr. Soila Pastor PLT 160 103/ul Normal 150-450 [facility] Comment on above: Performed By: #### C BC #### [facility] [address] [place] [address] Dr. Soila Pastor RBC 3.48 106/ul Critically low 4.20-5.40 [facility] Comment on above: Performed By: #### C BC #### [facility] [address] [place] [address] Dr. Soila Pastor WBC 9.9 103/ul Normal 4.0-11.0 [facility] Comment on above: Performed By: #### C BC #### [facility] [address] [place] [address] Dr. Soila Pastor CULTURE URINEon 10-15-2022 CULTURE URINE Culture Observations : NO GROWTH. Normal [facility] Comment on above: Performed By: #### P OCGLUC #### [facility] [address] [place] [address] Dr. Soila Pastor MAGNESIUMon 10-15-2022 Magnesium [Mass/Vol] 1.8 mg/dL Normal 1.8-2.4 [facility] Comment on above: Performed By: #### T 4, MG #### [facility] [address] [place] [address] Dr. Soila Pastor POINT OF CARE GLUCOSEon 09-21 Glucose [Mass/Vol] 123 mg/dL Critically high 74-106 [facility] Comment on above: Performed By: #### P OCGLUC #### [facility] [address] [place] [address] Dr. Soila Pastor Glucose [Mass/Vol] 128 mg/dL Critically high 74-106 [facility] Comment on above: Performed By: #### E RUR #### [facility] [address] [place] [address] Dr. Soila Pastor Glucose [Mass/Vol] 111 mg/dL Critically high 74-106 [facility] Comment on above: Performed By: #### P OCGLUC #### [facility] [address] [place] [address] Dr. Soila Pastor PROF 14(COMP METB)on 023 Albumin [Mass/Vol] 2.3 g/dL Critically low 3.4-5.0 [facility] Comment on above: Performed By: #### C MP #### [facility] [address] [place] [address] Dr. Soila Pastor Albumin/Globulin [Mass ratio] 0.7 {ratio} Normal [facility] Comment on above: Performed By: #### C MP #### [facility] [address] [place] [address] Dr. Soila Pastor ALP [Catalytic activity/Vol] 70 U/L Normal 46-116 [facility] Comment on above: Performed By: #### C MP #### [facility] [address] [place] [address] Dr. Soila Patsor ALT [Catalytic activity/Vol] 11 U/L Critically low 14-59 [facility] Comment on above: Performed By: #### C MP #### [facility] [address] [place] [address] Dr. Soila Pastor Anion gap [Moles/Vol] 11.2 mmol/L Normal Th [facility] Comment on above: Performed By: #### C MP #### [facility] [address] [place] [address] Dr. Soila Pastor AST [Catalytic activity/Vol] 32 U/L Normal 15-37 [facility] Comment on above: Performed By: #### C MP #### [facility] [address] [place] [address] Dr. Soila Pastor Bilirubin [Mass/Vol] 0.5 mg/dL Normal 0.2-1.0 [facility] Comment on above: Performed By: #### C MP #### [facility] [address] [place] [address] Dr. Soila Pastor Calcium [Mass/Vol] 7.8 mg/dL Critically low 8.5-10.1 [facility] Comment on above: Performed By: #### C MP #### [facility] [address] [place] [address] Dr. Soila Pastor Chloride [Moles/Vol] 104 mmol/L Normal 98-107 [facility] Comment on above: Performed By: #### C MP #### [facility] [address] [place] [address] Dr. Soila Pastor CO2 [Moles/Vol] 26.4 mmol/L Normal 21.0-32.0 [facility] Comment on above: Performed By: #### C MP #### [facility] [address] [place] [address] Dr. Soila Pastor Creatinine [Mass/Vol] 1.05 mg/dL Critically high 0.55-1.02 [facility] Comment on above: Performed By: #### C MP #### [facility] [address] [place] [address] Dr. Soila Pastor EGFR-AF MACANESE >60 Normal >=60 [facility] Comment on above: Performed By: #### C MP #### [facility] [address] [place] [address] Dr. Soila Pastor EGFR-NON AF MACANESE 50 mL/min/1.73m2 Critically low >=60 [facility] Comment on above: Performed By: #### C MP #### [facility] [address] [place] [address] Dr. Soila Pastor Globulin (S) [Mass/Vol] 3.5 g/dL Normal [facility] Comment on above: Performed By: #### C MP #### [facility] [address] [place] [address] Dr. Soila Pastor Glucose [Mass/Vol] 153 mg/dL Critically high 74-106 T [facility] Comment on above: Performed By: #### C MP #### [facility] [address] [address] [address] Soila Pastor Potassium [Moles/Vol] 4.6 mmol/L Normal 3.5-5.1 [facility] Comment on above: Performed By: #### C MP #### [facility] [address] [address] [address] Soila Pastor Protein [Mass/Vol] 5.8 g/dL Critically low 6.4-8.2 Th [facility] Comment on above: Performed By: #### C MP #### [facility] [address] [address] [address] Soila Pastor Sodium [Moles/Vol] 137 mmol/L Normal 136-[address] [facility] Comment on above: Performed By: #### C MP #### [facility] [address] [address] [address] Soila Pastor Urea nitrogen [Mass/Vol] 19.0 mg/dL Critically high 7.0-18.0 [facility] Comment on above: Performed By: #### C MP #### [facility] [address] [address] [address] Soila Pastor Urea nitrogen/Creatinine [Mass ratio] 18.1 mg/mg Normal [facility] Comment on above: Performed By: #### C MP #### [facility] [address] [address] [address] Soila Pastor T4on 10-15-2022 T4 [Mass/Vol] 7.30 ug/dL Normal 4.80-13.90 [facility] Comment on above: Performed By: #### T 4, MG #### [facility] [address] [address] [address] Soila Pastor ACETONE SERUMon 10-14-2022 ACETONE Negative Normal NEGATIVE [facility] Comment on above: Performed By: #### E RUR #### [facility] [address] [address] [address] Soila Pastor AMMONIAon 10-14-2022 Ammonia (P) [Moles/Vol] 24 umol/L Normal 11-32 [facility] Comment on above: Performed By: #### E RUR #### [facility] [address] [place] [address] Dr. Soila Pastor BLOOD GASES BTYon 10-14-2022 02 MODE ROOM AIR [facility] Comment on above: Performed By: #### E RUR #### [facility] Laboratory [address] [place] [address] Dr. Soila Pastor ALLENS TEST Positive [facility] Comment on above: Performed By: #### E RUR #### [facility] [address] [place] [address] Dr. Soila Pastor Base excess Calc (Bld) [Moles/Vol] 1.0 mmol/L Normal -2.0-2.0 [facility] Comment on above: Performed By: #### E RUR #### [facility] [address] [place] [address] Dr. Soila Pastor BIPAP PRESSURE [facility] Comment on above: Performed By: #### E RUR #### [facility] [address] [place] [address] Dr. Soila Pastor CPAP [facility] Comment on above: Performed By: #### E RUR #### [facility] [address] [place] [address] Dr. Soila Pastor FIO2 [facility] Comment on above: Performed By: #### E RUR #### [facility] [address] [place] [address] Dr. Soila Pastor HCO3 (Bld) [Moles/Vol] 26.0 mmol/L Normal 22.0-26.0 [facility] Comment on above: Performed By: #### E RUR #### [facility] [address] [place] [address] Dr. Soila Pastor LPM [facility] Comment on above: Performed By: #### E RUR #### [facility] [address] [place] [address] Dr. Soila Pastor MINUTE VOLUME Normal [facility] Comment on above: Performed By: #### E RUR #### [facility] [address] [address] [address] Soila Pastor Oxygen (Bld) [Partial pressure] 92.6 mm[Hg] Normal 80.0-100.0 [facility] Comment on above: Performed By: #### E RUR #### [facility] [address] [place] [address] Dr. Soila Pastor Oxygen saturation in Blood 97.0 % Normal 95.0-100.0 [facility] Comment on above: Performed By: #### E RUR #### [facility] [address] [place] [address] Dr. Soila Pastor PCO2 43.2 mmHg Normal 35.0-45.0 [facility] Comment on above: Performed By: #### E RUR #### [facility] [address] [place] [address] Dr. Soila Pastor PEEP [facility] Comment on above: Performed By: #### E RUR #### [facility] [address] [place] [address] Dr. Soila Pastor pH (Bld) 7.389 [pH] Normal 7.350-7.450 [facility] Comment on above: Performed By: #### E RUR #### [facility] [address] [place] [address] Dr. Soila Pastor PIP [facility] Comment on above: Performed By: #### E RUR #### [facility] [address] [place] [address] Dr. Soila Pastor PS [facility] Comment on above: Performed By: #### E RUR #### [facility] [address] [place] [address] Dr. Soila Pastor PUNCTURE SITE LR [facility] Comment on above: Performed By: #### E RUR #### [facility] [address] [place] [address] Dr. Soila Pastor RATE [facility] Comment on above: Performed By: #### E RUR #### [facility] [address] [place] [address] Dr. Soila Pastor VENT MODE Normal [facility] Comment on above: Performed By: #### E RUR #### [facility] [address] [place] [address] Dr. Soila Pastor [place] Normal [facility] Comment on above: Performed By: #### E RUR #### [facility] [address] [place] [address] Dr. Soila Pastor BNPon 10-14-2022 Natriuretic peptide B (Bld) [Mass/Vol] 432.0 pg/mL Normal <=1,800.0 [facility] Comment on above: Performed By: #### P OCGLUC #### [facility] [address] [place] [address] Dr. Soila Pastor CBC AUTO DIFFon 10-14-2022 BASO # 0.1 103/ul Normal 0.0-0.1 [facility] Comment on above: Performed By: #### P OCGLUC #### [facility] [address] [place] [address] Dr. Soila Pastor Basophils/100 WBC (Bld) 0.3 % Normal 0.2-2.0 [facility] Comment on above: Performed By: #### P OCGLUC #### [facility] [address] [place] [address] Dr. Soila Pastor EO # 0.3 103/ul Normal 0.0-0.7 [facility] Comment on above: Performed By: #### P OCGLUC #### [facility] [address] [place] [address] Dr. Soila Pastor Eosinophils/100 WBC (Bld) 1.7 % Normal 0.9-7.0 [facility] Comment on above: Performed By: #### P OCGLUC #### [facility] [address] [place] [address] Dr. Soila Pastor Erythrocyte distribution width (RBC) [Ratio] 13.5 % Normal 11.0-15.0 [facility] Comment on above: Performed By: #### P OCGLUC #### [facility] [address] [address] [address] Soila Pastor Hematocrit (Bld) [Volume fraction] 38.5 % Normal 36.0-48.0 [facility] Comment on above: Performed By: #### P OCGLUC #### [facility] [address] [place] [address] Dr. Soila Pastor Hemoglobin (Bld) [Mass/Vol] 12.2 g/dL Normal 12.0-16.0 [facility] Comment on above: Performed By: #### P OCGLUC #### [facility] [address] [address] [address] Soila Pastor IG # 0.06 10e3/ul Critically high 0.00-0.03 [facility] Comment on above: Performed By: #### P OCGLUC #### [facility] [address] [place] [address] Dr. Soila Pastor IG % 0.4 % Normal 0.0-0.5 [facility] Comment on above: Performed By: #### P OCGLUC #### [facility] [address] [place] [address] Dr. Soila Pastor LYMPH # 2.5 103/ul Normal 1.2-3.8 [facility] Comment on above: Performed By: #### P OCGLUC #### [facility] [address] [place] [address] Dr. Soila Pastor Lymphocytes/100 WBC (Bld) 17.2 % Critically low 20.5-60.0 [facility] Comment on above: Performed By: #### P OCGLUC #### [facility] [address] [place] [address] Dr. Soila Pastor MANUAL DIFF REQ NO Normal [facility] Comment on above: Performed By: #### P OCGLUC #### [facility] [address] [place] [address] Dr. Soila Pastor MCH (RBC) [Entitic mass] 30.0 pg Normal 26.7-34.0 [facility] Comment on above: Performed By: #### P OCGLUC #### [facility] [address] [place] [address] Dr. Soila Pastor MCHC (RBC) [Mass/Vol] 31.7 g/dL Normal 29.9-35.2 [facility] Comment on above: Performed By: #### P OCGLUC #### [facility] [address] [address] [address] Soila Pastor MCV (RBC) [Entitic vol] 94.8 fL Normal 81.0-99.0 [facility] Comment on above: Performed By: #### P OCGLUC #### [facility] [address] [address] [address] Soila Pastor MONO # 1.5 103/ul Critically high 0.3-0.8 [facility] Comment on above: Performed By: #### P OCGLUC #### [facility] [address] [address] [address] Soila Pastor Monocytes/100 WBC (Bld) 9.9 % Normal 1.7-12.0 [facility] Comment on above: Performed By: #### P OCGLUC #### [facility] [address] [address] [address] Soila Pastor NEUT # 10.3 103/ul Critically high 1.4-6.5 [facility] Comment on above: Performed By: #### P OCGLUC #### [facility] [address] [place] [address] Dr. Soila Pastor Neutrophils/100 WBC (Bld) 70.5 % Normal 43.0-75.0 [facility] Comment on above: Performed By: #### P OCGLUC #### [facility] [address] [address] [address] Soila Pastor Platelet mean volume (Bld) [Entitic vol] 11.3 fL Normal 9.5-13.5 [facility] Comment on above: Performed By: #### P OCGLUC #### [facility] [address] [address] [address] Soila Pastor PLT 151 103/ul Normal 150-450 [facility] Comment on above: Performed By: #### P OCGLUC #### [facility] [address] [address] [address] Soila Pastor RBC 4.06 106/ul Critically low 4.20-5.40 [facility] Comment on above: Performed By: #### P OCGLUC #### [facility] [address] [address] [address] Soila Pastor WBC 14.7 103/ul Critically high 4.0-11.0 [facility] Comment on above: Performed By: #### P OCGLUC #### [facility] [address] HEAD WO CONon [...] PAVEL SANCHEZ Date: 2022-10-14 20:13 Normal [facility] CULTURE BLOODon 10-14-2022 Microscopic examination of blood, culture Culture Observations: NO GROWTH AT 5 DAYS. Normal [facility] Comment on above: Performed By: #### P OCGLUC #### [facility] [address] [address] [address] Soila Pastor Microscopic examination of blood, culture Culture Observations: NO GROWTH AT 5 DAYS. Normal [facility] Comment on above: Performed By: #### P OCGLUC #### [facility] [address] [place] [address] Dr. Soila Pastor Covid-19 PCR ([facility])on 09-21 SARS-CoV-2 (COVID-19) RNA JERALD+probe Ql (Unsp spec) Not detected Normal NOT DETECTED [facility] Comment on above: Result Comment: When diagnostic [...] for this test is supported by the [employer] of Health and Human Service's declaration that [...] used). Performed By: #### C VDTBH #### [facility] [address] [place] [address] Dr. Soila Pastor ER URINE PROFILEon 3 Bilirubin Ql (U) Negative Normal NEGATIVE [facility] Comment on above: Performed By: #### E RUR #### [facility] [address] [place] [address] Dr. Soila Pastor Clarity (U) CLEAR Normal CLEAR [facility] Comment on above: Performed By: #### E RUR #### [facility] [address] [place] [address] Dr. Soila Pastor Color (U) YELLOW Normal YELLOW [facility] Comment on above: Performed By: #### E RUR #### [facility] [address] [place] [address] Dr. Soila Pastor ERUAHD A micrscopic examination will be performed if indicated. Normal [facility] Comment on above: Performed By: #### E RUR #### [facility] [address] [place] [address] Dr. Soila Pastor Glucose Ql (U) Negative Normal NEGATIVE [facility] Comment on above: Performed By: #### E RUR #### [facility] [address] [place] [address] Dr. Soila Pastor Hemoglobin Ql (U) Negative Normal NEGATIVE [facility] Comment on above: Performed By: #### E RUR #### [facility] [address] [place] [address] Dr. Soila Pastor Ketones Ql (U) TRACE Abnormal NEGATIVE [facility] Comment on above: Performed By: #### E RUR #### [facility] [address] [place] [address] Dr. Soila Pastor LEUKOCYTES Negative Normal NEGATIVE [facility] Comment on above: Performed By: #### E RUR #### [facility] [address] [place] [address] Dr. Soila Pastor Nitrite Ql (U) Negative Normal NEGATIVE [facility] Comment on above: Performed By: #### E RUR #### [facility] [address] [place] [address] Dr. Soila Pastor pH (U) 5.0 [pH] Normal 5-9 [facility] Comment on above: Performed By: #### E RUR #### [facility] [address] [place] [address] Dr. Soila Pastor SPEC GRAVITY 1.020 Normal 1.005-<=1.025 [facility] Comment on above: Performed By: #### E RUR #### [facility] [address] [place] [address] Dr. Soila Pastor UA PROTEIN Negative Normal NEGATIVE/ TRACE [facility] Comment on above: Performed By: #### E RUR #### [facility] [address] [place] [address] Dr. Soila Pastor UR MICRO IND NOT INDICATED Normal [facility] Comment on above: Performed By: #### E RUR #### [facility] [address] [place] [address] Dr. Soila Pastor Urobilinogen Qn (U) 1.0 {Betsy'U}/dL Normal 0.2 - 1. 0 [facility] Comment on above: Performed By: #### E RUR #### [facility] [address] [place] [address] Dr. Soila Pastor LACTATE/LACTIC ACIDon 2022 Lactate [Moles/Vol] 1.4 mmol/L Normal 0.4-2.0 [facility] Comment on above: Performed By: #### E RUR #### [facility] [address] [place] [address] Dr. Soila Pastor PH VENOUS BLOODon 10-14-2022 PCO2 VENOUS 47.6 mmHg Normal 40.0-52.0 [facility] Comment on above: Performed By: #### E RUR #### [facility] [address] [place] [address] Dr. Soila Pastor pH VENOUS 7.401 Normal 7.330-7.430 [facility] Comment on above: Performed By: #### E RUR #### [facility] [address] [place] [address] Dr. Soila Pastor PROF 14(COMP METB)on 023 Albumin [Mass/Vol] 3.2 g/dL Critically low 3.4-5.0 [facility] Comment on above: Performed By: #### P OCGLUC #### [facility] [address] [place] [address] Dr. Soila Pastor Albumin/Globulin [Mass ratio] 0.8 {ratio} Normal [facility] Comment on above: Performed By: #### P OCGLUC #### [facility] [address] [place] [address] Dr. Soila Pastor ALP [Catalytic activity/Vol] 85 U/L Normal 46-116 [facility] Comment on above: Performed By: #### P OCGLUC #### [facility] [address] [place] [address] Dr. Soila Pastor ALT [Catalytic activity/Vol] 13 U/L Critically low 14-59 [facility] Comment on above: Performed By: #### P OCGLUC #### [facility] [address] [address] [address] Soila Pastor Anion gap [Moles/Vol] 9.5 mmol/L Normal [facility] Comment on above: Performed By: #### P OCGLUC #### [facility] [address] [address] [address] Soila Pastor AST [Catalytic activity/Vol] 12 U/L Critically low 15-37 [facility] Comment on above: Performed By: #### P OCGLUC #### [facility] [address] [address] [address] Soila Pastor Bilirubin [Mass/Vol] 0.5 mg/dL Normal 0.2-1.0 [facility] Comment on above: Performed By: #### P OCGLUC #### [facility] [address] [address] [address] Soila Pastor Calcium [Mass/Vol] 9.0 mg/dL Normal 8.5-10.[address] [facility] Comment on above: Performed By: #### P OCGLUC #### [facility] [address] [place] [address] Dr. Soila Pastor Chloride [Moles/Vol] 99 mmol/L Normal 98-107 [facility] Comment on above: Performed By: #### P OCGLUC #### [facility] [address] [address] [address] Soila Pastor CO2 [Moles/Vol] 32.0 mmol/L Normal 21.0-32.0 [facility] Comment on above: Performed By: #### P OCGLUC #### [facility] [address] [address] [address] Soila Pastor Creatinine [Mass/Vol] 1.55 mg/dL Critically high 0.55-1.02 [facility] Comment on above: Performed By: #### P OCGLUC #### [facility] [address] [address] [address] Soila Pastor EGFR-AF MACANESE 39 mL/min/1.73m2 Critically low >=60 [facility] Comment on above: Performed By: #### P OCGLUC #### [facility] [address] [address] [address] Soila Pastor EGFR-NON AF MACANESE 32 mL/min/1.73m2 Critically low >=60 [facility] Comment on above: Performed By: #### P OCGLUC #### [facility] [address] [address] [address] Soila Pastor Globulin (S) [Mass/Vol] 3.8 g/dL Normal [facility] Comment on above: Performed By: #### P OCGLUC #### [facility] [address] [address] [address] Soila Pastor Glucose [Mass/Vol] 125 mg/dL Critically high 74-106 [facility] Comment on above: Performed By: #### P OCGLUC #### [facility] [address] [address] [address] Soila Pastor Potassium [Moles/Vol] 3.5 mmol/L Normal 3.5-5.1 [facility] Comment on above: Performed By: #### P OCGLUC #### [facility] [address] [address] [address] Soila Pastor Protein [Mass/Vol] 7.0 g/dL Normal 6.4-8.2 [facility] Comment on above: Performed By: #### P OCGLUC #### [facility] [address] [address] [address] Soila Pastor Sodium [Moles/Vol] 137 mmol/L Normal 136-[address] [facility] Comment on above: Performed By: #### P OCGLUC #### [facility] [address] [address] [address] Soila Pastor Urea nitrogen [Mass/Vol] 21.0 mg/dL Critically high 7.0-18.0 [facility] Comment on above: Performed By: #### P OCGLUC #### [facility] [address] [address] [address] Soila Pastor Urea nitrogen/Creatinine [Mass ratio] 13.5 mg/mg Normal [facility] Comment on above: Performed By: #### P OCGLUC #### [facility] [address] [place] [address] Dr. Soila Pastor PROTIMEon 10-14-2022 INR Coag (PPP) [Relative time] 1.01 {INR} Normal [facility] Comment on above: Performed By: #### C VDTBH #### [facility] [address] [place] [address] Dr. Soila Pastor INR GUIDELINES SEE BELOW Normal [facility] Comment on above: Result Comment: K[place] RED INR: 2.0 - 3.0 CONDITIONS NOT LISTED BELOW 2.5 - 3.5 FOR PROSTHETIC HEART VALVE REPLACEMENT 2.5 - 3.5 RECURRENT THROMBOSIS Performed By: #### C VDTBH #### [facility] [address] [place] [address] Dr. Soila Pastor PT Coag (PPP) [Time] 10.7 s Normal 9.0-11.6 [facility] Comment on above: Performed By: #### C VDTBH #### [facility] [address] [place] [address] Dr. Soila Pastor PTTon 10-14-2022 aPTT Coag (Bld) [Time] 31.5 s Normal 22.3-36.2 [facility] Comment on above: Performed By: #### E RUR #### [facility] [address] [place] [address] Dr. Soila Pastor TROPONIN, HIGH SENSITIVITYon 10-14-2022 HSTROP 8.8 pg/mL Normal 4.0-51.3 [facility] Comment on above: Result Comment: CUT- OFF POINTS HAVE BEEN ESTABLISHED BASED ON THE FOURTH UNIVERSAL DEFINITIONS OF MYOCARDIAL INFARCTION. THE UPPER REFERENCE LIMIT (URL) OF TROPONIN, DEFINED THE 99TH PERCENTILE OF cTnI DISTRIBUTION IN A REFERENCE POPULATION, HAS BEEN CONFIRMED THE DECISION THRESHOLD FOR FL DIAGNOSIS. Performed By: #### P OCGLUC #### [facility] [address] [place] [address] Dr. Soila Pastor TSHon 10-14-2022 TSH 1.240 uIU/mL Normal 0.358-3.740 [facility] Comment on above: Performed By: #### P OCGLUC #### [facility] [address] [address] [address] Soila Pastor XR ANKLE LT MIN 3 Von 2022 XR ANKLE LT MIN 3 V EXAM: XR ANKLE LT FL N 3 V HISTORY: Unspecified fall COMPARISON: None. TECHNIQUE: 3 view study FINDINGS: Overall bony architecture is normal. Ankle mortise relationships are intact. A plantar calcaneal enthesophyte is noted. Soft tissue swelling about the ankle is noted. IMPRESSION: No acute bone or joint abnormality at the ankle. Electronically authenticated by: Selin MCCALL Date: 2022-10-14 20:16 Normal [facility] XR CHEST 1 Von 10-14-2022 XR CHEST [...] KAELA HOOKER Date: 2022-10-14 20:15 Normal [facility] XR CHEST 2 Von 10-14-2022 XR CHEST [...] by: KARYN WASHINGTON Date: 2022-10-14 11:33 Normal [facility] CT CSPINE WO CONon CT CSPINE WO [...] REED LYNNE Date: 2022-08-24 18:47 [address] [facility] [address] HEAD WO CONon 08-24-2022 CT HEAD [...] AMAYA FRENCH Date: 2022-08-24 18:57 Normal [facility] XR KNEE RT 4V or >on 023 [...] VIKY WILLIAMSON Date: 2022-08-24 18:59 Normal [facility] US THYROIDon 05-29-2022 US THYROID EXAMINATION: US [...] left thyroid nodules, grossly stable TI-RADS: The [employer] TI-RADS committee's white paper recommendations for thyroid lesions classified as TR4 (moderately suspicious) are listed below: > 1.0 cm. Follow-up ultrasound in 1, 2, 3, and 5 years. > 1.5 cm. FNA. J. Am Nikunj Radiol 2017;14:587-595. Electronically authenticated by: CARLOS SOOD Date: 2022-05-29 11:51 Normal [facility] VASC LAB Carotid Artery Dupl ex Ultrasounon 04-14-2022 [facility] Carotid Artery Duplex Ultrasoun [address], [address], [place] [address] Vascular Lab Report Carotid Artery Duplex Ultrasound Patient Name: ELGIN GARZA Reading Physician: [id number] Martha Navas MD, [facility] Study Date: 04/14/2022 Referring XOCHITL SMYTH Physician: MRN/PID: [id number] PCP: Yossi Landers Accession/Order#: [id number] CC Report to: Date of : 1940 Technologist: Eleanor Marcus RDCS, T Gender: F Technologist 2: Admission Status: Outpatient Location Performed: [facility] Diagnosis/ICD: 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ASC LAB Carotid Artery Dupl ex Ultrasoundon 04-14-2022 US.doppler Carotid arteries [facility] [employer] [address] [place] Work Phone: Height or Weight NOT Doneon 02-26-2022 Fall risk assessment a) No falls within the last year [facility] [employer] [address] [place] Work Phone: Tobacco use status [facility]PH[facility] b) No -[facility] [employer] [address] [place] Work Phone: Office Visit (Cardiology)on [...] 4-5 servings (more content not included)... Normal [facility] US THYROIDon 01-08-2022 US THYROID EXAMINATION: US [...] one year is recommended. TR 4: The [employer] TI-RADS committee's white paper recommendations for thyroid lesions classified as TR4 (moderately suspicious) are listed below: > 1.0 cm. Follow-up ultrasound in 1, 2, 3, and 5 years. > 1.5 cm. FNA. J. Am Nikunj Radiol 2017;14:587-595. Electronically authenticated by: AMAYA GRAMAJO Date: 2022-01-08 08:44 Normal [facility] CREATININEon 12-30-2021 Creatinine [Mass/Vol] 1.03 mg/dL Critically high 0.55-1.02 [facility] Comment on above: Performed By: #### P OCGLUC #### [facility] [address] [address] [address] Soila Pastor EGFR-AF MACANESE >60 Normal >=60 [facility] Comment on above: Performed By: #### P OCGLUC #### [facility] [address] [address] [address] Soila Pastor EGFR-NON AF MACANESE 52 mL/min/1.73m2 Critically low >=60 [facility] Comment on above: Performed By: #### P OCGLUC #### [facility] [address] [address] NECK ST W [...] by: CARLOS SOOD Date: 2021-12-30 21:32 Normal [facility] XR MODIFIED BARIUM SWALLOWon 12-05-2021 XR MODIFIED [...] by: AMAYA GRAMAJO Date: 2021-12-05 17:48 Normal [facility] Echocardiogramon 11-11-[address], [address], [place] [address] TRANSTHORACIC ECHOCARDIOGRAM REPORT Patient Name: ELGIN GARZA Odalis Physician: [id number] Xochitl NORWOOD MD Study Date: 11/11/2021 Referring Physician: [id number] XOCHITL SMYTH MRN/PID: [id number] PCP: Yossi Landers Accession/Order#: [id number] Department Location: [facility] Date of : 1940 Fellow: Gender: F 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 Office Visit (Cardiology)on 10-15-2021 Follow-up visit Diagnoses/Problems [...] up in 4-5 months Retrieve records from [facility] Chief Complaint overdue. ELGIN NORWOOD is being [...] EVERY DAY (more content not included)... Normal [facility] Tobacco Screening.on 022 Adult depression screening assessment No [facility] [address] [place] Work Phone: Fall risk assessment a) No falls within the last year [facility] [facility] [address] [place] Work Phone: Tobacco use status [facility] b) No [facility] [employer] 250 DO Work Phone: US thyroidon 02-15-[address] [facility] Main [place] [address] [place] [address] Ultrasound Report Signed Patient: Elgin Norwood MR#: [id number] : 1940 Acct:[id number] Age/Sex: 78 / F ADM Date: 02/15/19 Loc: Room: Type: [facility] Attending Dr: Araceli Ojeda Jr, MD Ordering [...] Gupta Jr., M.D.02/15/2019 4:06 PM Dictation Location: [place] [address] Tech: Lyudmila Mendez Transcribed By: SHANTELLE 02/15/19 1606 Dictated By: Nabeel Gupta Jr, MD 02/15/19 1554 Signed By: 02/15/19 1606 [facility] US thyroidon 08-31-2018 thyroid [facility] [place] [address] Ultrasound Report Signed Patient: Elgin Norwood MR#: [id number] : 1940 Acct:[id number] Age/Sex: 78 / F ADM Date: 08/31/18 Loc: Room: Type: [facility] Attending Dr: Araceli Ojeda Jr, MD Ordering [...] and 5 are recommended according to the [employer] thyroid imaging and reporting data system. Impression dictated by: Karyn Nogueira M.D.08/31/2018 1:49 PM Dictation Location: [place] [address] Tech: Leigh Syed Transcribed By: SHANTELLE 08/31/18 1349 Dictated By: Karyn Nogueira II, MD 08/31/18 1342 Signed By: 08/31/18 1349 [facility] Vital Signs Date Time Vital Sign Value Performing Clinician Facility 02-26-2022 15:04-0400 Body height 162.56 cm Xochitl Smyth MD Work Phone: [facility] [employer] 250 DO Work Phone: 02-26-2022 15:04-0400 Body mass index (BMI) [Ratio] Medical Reason Not Done Xochitl Smyth MD Work Phone: [facility] [employer] 250 DO Work Phone: 02-26-2022 15:04-0400 Diastolic blood pressure 64 mm[Hg] Xochitl Smyth MD Work Phone: [facility] [employer] 250 DO Work Phone: 02-26-2022 15:04-0400 Heart rate 72 /min Xochitl Smyth MD Work Phone: [facility] 250 DO Work Phone: 02-26-2022 15:04-0400 Systolic blood pressure 120 mm[Hg] Xochitl Smyth MD Work Phone: [facility] 250 DO Work Phone: 10-15-2021 12:59-0400 Body height 162.56 cm Xochitl Smyth MD Work Phone: [facility] 250 DO Work Phone: 10-15-2021 12:59-0400 Body mass index (BMI) [Ratio] 35.87 kg/m2 Xochitl Smyth MD Work Phone: [facility] 250 DO Work Phone: 10-15-2021 12:59-0400 Body surface area Derived from formula 1.99 m2 Xochitl Smyth MD Work Phone: [facility] 250 DO Work Phone: 10-15-2021 12:59-0400 Body weight 94.8 kg Xochitl Smyth MD Work Phone: [facility] 250 DO Work Phone: 10-15-2021 12:59-0400 Diastolic blood pressure 68 mm[Hg] Xochitl Smyth MD Work Phone: [facility] 250 DO Work Phone: 10-15-2021 12:59-0400 Heart rate 66 /min Xochitl Smyth MD Work Phone: [facility] 250 DO Work Phone: 10-15-2021 12:59-0400 Systolic blood pressure 124 mm[Hg] Xochitl Smyth MD Work Phone: [facility] 250 DO Work Phone: Encounters Encounter Date Encounter Type Care Provider Facility Start: 07-27-2023 Refill Yossi Landers MD Work Phone: [facility] Comment on above: Essential hypertensi on ([facility]) Start: 07-20-2023 End: 07-20-2023 ambulatory ARACELI H SANJEEVROLAND Not Available Start: 05-11-2023 End: 05-11-2023 ambulatory YOSSI LANDERS Not Available Start: 10-15-2022 End: 10-16-2022 Evaluation and management of inpatient TANYA CARMEN . Facility:H1 Start: 10-14-2022 End: 10-15-2022 ambulatory KARYN WASHINGTON Facility:H1 Start: 08-24-2022 End: 08-24-2022 ambulatory LAYNE TERRAZAS Facility:H1 Start: 05-29-2022 End: 05-30-2022 ambulatory ARACELIDIPAK OJEDA Facility:[facility]1 Start: 04-14-2022 Patient encounter procedure [id number] SE[facility] ULTRASOUND 01 Work Phone: [facility] Work Phone: Start: 04-14-[address] Xochitl Smyth Facility:[id number] Start: 02-26-2022 Office outpatient vi sit 25 minutes Xochitl Smyth MD Work Phone: [facility] 250 DO Work Phone: Start: 01-07-2022 End: 01-08-2022 ambulatory ARACELI JOYCESupriya Facility:H1 Start: 12-30-2021 End: 12-31-[address] YOSSI LANDERS Facility:H1 Start: 12-05-2021 End: 12-06-[address] YOSSI LANDERS Facility:H1 Start: 11-11-[address] Xochitl Smyth Facility:[id number] Start: 10-15-2021 Office outpatient vi sit 25 minutes Xochitl Smyth MD Work Phone: [facility] 250 DO Work Phone: Procedures Date Procedure [...] Visit [facility] [address] [facility] [address] [place] [id number] Yossi Landers MD [address] [facility] [address] [place] [address] [facility] Start: 05-12-2023 Hemoglobin A1c measurement Diabetes: Hemoglobin A1C [facility] Start: 02-20-2023 Influenza vaccination Influenza Vaccine (#1) [facility] Start: 08-12-2022 FUV, Provider: Xochitl Smyth, Status: Pen, Time: 2:20 PM FUV, Provider: Xochitl Smyth, Status: Pen, Time: 2:20 PM [facility] 250 DO Work Phone: Start: 04-14-2022 CAROTID, Provider: SEAN STALLWORTHI ULTRASOUND ,[id number], Status: Pen, Time: 10:45 AM CAROTID, Provider: SEAN STALLWORTHI ULTRASOUND ,[id number], Status: Pen, Time: 10:45 AM [facility] 250 DO Work Phone: Start: 02-26-2022 FUV, Provider: Xochitl Smyth, Status: Pen, Time: 2:40 PM FUV, Provider: Xochitl Smyth, Status: Pen, Time: 2:40 PM [place] [address] DO Work Phone: Start: 11-11-2021 ECHO, Provider: SEAN ARTIS ULTRASOUND ,[id number], Status: Pen, Time: 10:45 AM ECHO, Provider: SEAN [facility] ULTRASOUND ,[id number], Status: Pen, Time: 10:45 AM [place] [address] DO Work Phone: Start: 07-30-2020 Glaucoma screening [...] Intramuscular Suspension Xochitl Smyth MD Work Phone: [place] [address] DO Work Phone: 08-25-2020 Pfizer-BioNTech COVID-19 Vacc 30 MCG/0.3ML Intramuscular Suspension Xochitl Smyth MD Work Phone: [place] [address] DO Work Phone: 05-07-2018 pneumococcal conjuga te vaccine, 13 valent Xochitl Smyth MD Work Phone: [place] [address] DO Work Phone: 04-22-2018 pneumococcal conjuga te vaccine, 13 valent Xochitl Smyth MD Work Phone: [facility] 11-28-2015 zoster vaccine, live Xochitl Smyth MD Work Phone: [facility] 01-10-2015 zoster vaccine, live Xochitl Smyth MD Work Phone: [facility] Healthcare Payers Date Payer Category Payer Medicare [id number] 2022 Medicare [employer] MEDICARE ADVANTAGE [employer] MEDICARE [id number] 2022-Present [address] [address] [place] [address] [id number] 1959 Medicaid [id number] 1959 Medicare [id number] 1940 Unknown [id number] 1942 Unknown [id number] 1942 Unknown [id number] 1942 Unknown [id number] 1942 Unknown [id number] [id number] 1942 Unknown [id number] [id number] 1942 Unknown [id number] [id number] 1942 Unknown [id number] [id number] 1942 Unknown [id number] [id number] 1942 Unknown [id number] 1940 Unknown [id number] Unknown Social History Date Type Detail Facility Start: 11-12-2022 End: 02-09-2023 No alcohol use No alcohol use [facility] Comment on above: 4-5 servings daily; quit 1995, 2ppd; Start: 11-20-2022 Tobacco smoking stat us [facility] Ex-smoker [facility] Work Phone: [...] e: 2-3 cups per day of coffee [facility] Start: 1940 Sex Assigned At Not on file [facility] Medical Equipment Procedure Code Equipment Code Equipment Origin al Text Equipment Identifier Dates 1 each by Other route 1 (one) time each day at the same time. [id number] USE 1 LANCET TO TEST BLOOD SUGAR ONCE DAILY [id number] Start: 11-05-2022 Telephone encounter Note 07-27-2023 Telephone Encounter - PHILIP Magallanes - 07/27/2023 8:00 AM EST Note Date & Type Note Facility 07-27-2023 Telephone encount er Note sent [facility] Healthcare Note 07-27-2023 Telephone Encounter - PHILIP [...] her back in 3 to 4 months [facility] Work Phone: History of Present illness Narrative [...] her back in 3 to 4 months [facility] [employer] DO Work Phone: Evaluation note Note Date & Type Note Facility Evaluation note Diagnosis Essential hypertension ([facility]) Unspecified essential hypertension documented in this encounter [...] in6. We will repeat her carotid Doppler -[facility] Work Phone: History of Present illness [...] in6. We will repeat her carotid Doppler [facility] Work Phone: Summary Purpose Family History Unknown [...] section and content) DATE CREATED AUTHOR 02/16/2019 [facility] DATE CREATED AUTHOR AUTHOR'S ORGANIZ ATION 02/27/2022 [employer] DATE CREATED AUTHOR AUTHOR'S ORGANIZ ATION 04/15/2022 [facility] DATE CREATED AUTHOR AUTHOR'S ORGANIZ ATION 10/25/2022 [facility] DATE CREATED AUTHOR AUTHOR'S ORGANIZ ATION 07/20/2023 [facility] EPIC Reason for Visit (unrecogniz ed section and content) Reason Comments Med Refill Care Teams (unrecognized sec tion and content) Senior Solutions Engineer Relationship Specialty Start Date End Date Yossi Landers MD [address] [facility] [address] [place] [address] PCP - General Internal Medicine 11/03/22 Yossi Landers MD [address] [facility] [address] [place] [address] PCP - [employer] 11/20/22 FOR RECORDS PERTAINING [...] BE BASED ON THE PRIMARY CLINICAL RECORDS. [facility]. provides no warranty or guarantee of the accuracy or completeness of information in this document.
[2023-08-02] MEDS: LACTATED RINGER'S SOLUTION 1,000 ML 100 ML IV (15:11)
[2023-08-02] MEDS: ENOXAPARIN SODIUM 30 MG/0.3 ML SYRINGE SUBQ (17:09)
[2023-08-02] MEDS: DOCUSATE SODIUM 100 MG CAPSULE PO (21:43)
[2023-08-02] MEDS: CARVEDILOL 12.5 MG TABLET PO (21:43)
[2023-08-02] MEDS: GABAPENTIN 100 MG CAPSULE 200 MG PO (21:44)
[2023-08-02] MEDS: ATORVASTATIN CALCIUM 40 MG TABLET PO (21:44)
[2023-08-02] MEDS: ALPRAZOLAM 0.25 MG TABLET PO (22:52)
[2023-08-03] MEDS: LACTATED RINGER'S SOLUTION 1,000 ML 100 ML IV (00:56)
[2023-08-03] MEDS: OXYCODONE HCL 5 MG TABLET PO (04:23)
[2023-08-03 04:29] LABS: Basophils Percent Auto 0.6 % (0.2-2.0); Eosinophils Absolute Auto 0.1 10^3/uL (0.0-0.7); Eosinophils Percent Auto 1.6 % (0.9-7.0); Hemoglobin 10.5 g/dL (12.0-16.0); Immature Granulocytes Abs Auto 0.02 10^3/uL (0.00-0.03); Immature Granulocytes Pct Auto 0.3 % (0.0-0.5); Lymphocytes Absolute Auto 1.9 10^3/uL (1.2-3.8); Mean Corpuscular HGB Conc 30.9 g/dL (29.9-35.2); Mean Corpuscular Hemoglobin 29.7 pg (26.7-34.0); Mean Platelet Volume 10.9 fL (9.5-13.5); Monocytes Absolute Auto 0.5 10^3/uL (0.3-0.8); Monocytes Percent Auto 7.5 % (1.7-12.0); Neutrophils Absolute Auto 4.2 10^3/uL (1.4-6.5); Platelet Count 128 10^3/uL (150-450); Red Blood Count 3.54 10^6/uL (4.20-5.40); White Blood Count 6.8 10^3/uL (4.0-11.0)
[2023-08-03 04:50] LABS: Alanine Aminotransferase 9 U/L (14-59); Albumin Globulin Ratio 0.8; Albumin Level 2.6 g/dL (3.4-5.0); Alkaline Phosphatase 78 U/L (46-116); Anion Gap 11.5; Aspartate Amino Transferase 15 U/L (15-37); BUN Creatinine Ratio 12.5; Bilirubin Total 0.5 mg/dL (0.2-1.0); Calcium 8.9 mg/dL (8.5-10.1); Carbon Dioxide 28.5 mmol/L (21.0-32.0); Chloride 106 mmol/L (98-107); Estimated GFR (African America >60 (>=60); Estimated GFR (Non-African Ame >60 (>=60); Globulin 3.2 g/dL; Glucose 103 mg/dL (74-106); Sodium 142 mmol/L (136-145); Total Protein 5.8 g/dL (6.4-8.2)
[2023-08-03 04:58] VITALS: O2SAT 93
[2023-08-03 07:49] VITALS: PULSE 72
[2023-08-03 07:51] VITALS: O2SAT 97
[2023-08-03 07:53] VITALS: BP 129/65; PULSE 72; RESP 16; TEMP 36.7; O2SAT 97
[2023-08-03] MEDS: CETIRIZINE HCL 10 MG TABLET PO (08:06)
[2023-08-03] MEDS: GABAPENTIN 100 MG CAPSULE 200 MG PO (08:06)
[2023-08-03] MEDS: ASPIRIN 81 MG TAB.CHEW PO (08:06)
[2023-08-03] MEDS: POLYETHYLENE GLYCOL 3350 17 GM POWDER PACKET PO (08:06)
[2023-08-03] MEDS: CARVEDILOL 12.5 MG TABLET PO (08:06)
[2023-08-03] MEDS: LISINOPRIL 5 MG TABLET PO (08:06)
[2023-08-03] MEDS: DULOXETINE HCL 60 MG CAPSULE.DR PO (08:06)
[2023-08-03] MEDS: DOCUSATE SODIUM 100 MG CAPSULE PO (08:07)
--- NOTE | 2023-08-03 08:18 | CM.NOTE ---
Medicare Outpatient Observation Notice discussed with pt, pt verbalizes understanding and signs paper. Original given to pt and copy placed in pt's chart.
--- NOTE | 2023-08-03 10:35 | CM.NOTE ---
Rounds made with Dr. Urias, possible discharge to home today. PT and OT will evaluate pt.
[2023-08-03] MEDS: BUPROPION HCL 150 MG SR TABLET 12H PO (11:36)
--- NOTE | 2023-08-03 11:37 | P.HP_ITS ---
H&P: HPI History of Present Illness Chief complaint: CONSTIPATION/MUSCULAR DECONDITIONING Narrative: HPI and Hospital Course: 83 y o female who lives with her son, uses walker to ambulate for brought into ED yesterday for inability to pass stool or urine. She was noted to have urinary retention and had urinary catheter placed with about 600 cc of urine that came out after placing urinary catheter. Patient's work otherwise was unremarkable with no sig abnormality noted on CBC, CMP, UA. Patient was found to be very weak and required help getting up and could barely stand on her feet and was admitted for observation, PT/OT eval. She had a large bowel movement overnight and later today, her catheter was removed and she was able to urinate w/o difficulty. Patient had PT/OT eval and did well with walker. Stable for discharge, with home health. She will benefit from outpatient colonoscopy. Patient was also noted to have masked facies and resting tremor with no prior/formal diagnosis of parkinson. Discussed with son and patient to consider a neurology evaluation for possible undiagnosed parkinson Review of Systems ROS Status of ROS 10 or more systems reviewed and unremark able except as noted in history and below [facility] Medical History (Updated 08/03/23 @ 11:46 by Shaikh Adonay MD) Hypothyroidism ?E03.9 - Hypothyroidism, unspecified (ICD-10) HLD (hyperlipidemia) ?E78.5 - Hyperlipidemia, unspecified (ICD-10) HTN (hypertension) ?I10 - Essential (primary) hypertension (ICD-10) CHF (congestive heart failure) ?I50.9 - Heart failure, unspecified (ICD-10) COPD (chronic obstructive pulmonary disease) ?J44.9 - Chronic obstructive pulmonary disease, unspecified (ICD-10) Surgical History (Updated 08/02/23 @ 15:00 by Fatou Moralez) H/O hysterectomy for benign disease ?Z90.710 - Acquired absence of both cervix and uterus (ICD-10) Previous back surgery ?Z98.890 - Other specified postprocedural states (ICD-10) H/O hernia repair ?Z98.890 - Other specified postprocedural states (ICD-10) ?Z87.19 - Personal history of other diseases of the digestive system (ICD-10) Social History (Updated 08/03/23 @ 11:44 by Shaikh Adonay MD) Within the past year, how often did you have a drink containing alcohol: never Score interpretation: A score less than 3 is consistent with normal alcohol consumption. 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 Known occupational exposures/hazards: No Highest level of school completed/degree received: 7th grade Meds Home Medications and Allergies Home Medications Medication Instructions Recorded Confirmed Type alprazolam 0.25 mg tablet 0.25 mg PO BID PRN anxiety 08/02/23 08/03/23 History aspirin 81 mg chewable tablet 81 mg PO DAILY 08/02/23 08/02/23 History ([place] Chewable Low Dose Aspirin) atorvastatin 40 mg tablet 40 mg PO DAILY 08/02/23 08/02/23 History brexpiprazole 2 mg tablet (Rexulti) 2 mg PO DAILY 08/02/23 08/02/23 History bupropion HCl (smoking deter) 150 150 mg PO BID 08/02/23 08/03/23 History mg tablet,12 hr sustained-release(smoking deterrent) carvedilol 12.5 mg tablet 12.5 mg PO Q12H 08/02/23 08/02/23 History duloxetine 60 mg capsule,delayed 60 mg PO DAILY 08/02/23 08/02/23 History release furosemide 40 mg tablet 40 mg PO DAILY 08/02/23 08/02/23 History gabapentin 100 mg capsule 200 mg PO Q12H 08/02/23 08/02/23 History lisinopril 5 mg tablet 5 mg PO DAILY 08/02/23 08/03/23 History loratadine 10 mg tablet 10 mg PO Q24H 08/02/23 08/02/23 History docusate sodium 100 mg capsule 100 mg PO BID #60 caps 08/03/23 Rx (Colace) fluticasone 250 mcg-salmeterol 50 1 inh inhalation Q12H PRN 08/03/23 08/03/23 History mcg/dose blistr powdr for shortness of breath or wheezing inhalation hydrocodone 7.5 mg-acetaminophen 1 tab PO Q6H PRN severe pain 08/03/23 08/03/23 History 325 mg tablet (scale score 7-10) levothyroxine 100 mcg tablet 100 mcg PO .ACB 08/03/23 08/03/23 History omeprazole 40 mg capsule,delayed 40 mg PO .ACB 08/03/23 08/03/23 History release Allergies Allergy/AdvReac Type Severity Reaction Status Date / Time No Known Drug Allergies Allergy Verified 08/02/23 11:28 Exam Constitutional Vital Signs, click to edit/add: Last Vital Signs Temp 98.0 F 08/03/23 07:53 Pulse 72 08/03/23 07:53 Resp 16 08/03/23 07:53 BP 129/65 08/03/23 07:53 Pulse Ox 97 08/03/23 07:53 O2 Del Method Room Air 08/03/23 07:53 Documenting provider has reviewed patient's vital signs: yes Common normals: no apparent distress and oriented x3 General appearance: cooperative Nutritional appearance: obese HENMT Common normals: normocephalic and head/scalp atraumatic Head and scalp: normocephalic and atraumatic Eye Common normals: conjunctivae normal and no scleral icterus Conjunctiva: conjunctiva(e) normal Respiratory Common normals: normal respiratory effort and clear to auscultation bilaterally Effort & inspection: able to speak in complete sentences Auscultation: clear to auscultation bilaterally Cardio Common normals: regular rate, S1 normal heart sound and S2 normal heart sound Rate: regular rate Heart sounds: S1 normal and S2 normal GI Common normals: Normal to inspection, nondistended, normoactive bowel sounds present, soft to palpation, non-tender and no hepatosplenomegaly Palpation: soft and no hepatosplenomegaly Extremity Common normals: normal to inspection and full ROM General: other findings (non pitting LE edema) Neuro Common normals: oriented x3, moves all extremities and no focal motor deficits Psych Common normals: mental status grossly normal, denies hallucinations, denies homicidal ideation and denies suicidal ideation Results Labs Labs: Short CBC 08/02/23 08/03/23 Range/Units 12:05 04:07 WBC 10.0 6.8 (4.0-11.0) 10^3/uL Hgb 11.3 L 10.5 L (12.0-16.0) g/dL Hct 36.9 34.0 L (36.0-48.0) % Plt Count 139 L 128 L (150-450) 10^3/uL BMP 08/02/23 08/03/23 12:05 04:07 Sodium 141 142 Potassium 4.1 4.0 Chloride 105 106 Carbon Dioxide 28.7 28.5 BUN 12.0 11.0 Creatinine 1.08 H 0.88 Glucose 110 H 103 Calcium 8.9 8.9 Liver Function 08/02/23 08/03/23 Range/Units 12:05 04:07 Total Bilirubin 0.5 0.5 (0.2-1.0) mg/dL AST 15 15 (15-37) U/L ALT 14 9 L (14-59) U/L Alkaline Phosphatase 92 78 (46-116) U/L Albumin 2.9 L 2.6 L (3.4-5.0) g/dL Urine 08/02/23 Range/Units 11:44 Urine Color Lt. yellow (YELLOW) Urine Clarity Clear (CLEAR) Urine pH 5.5 (5.0-9.0) Ur Specific [place] 1.010 (1.005-1.025) Urine Protein Negative (NEG/TRACE) mg/dL Urine Glucose (UA) Negative (NEGATIVE) mg/dL Assessment and Plan Assessment and Plan (1) Constipation: Assessment and Plan: Resolved, large bowel movement overnight. Recommend outpatient colonoscopy. Increase fibre, fluid intake. Added daily colace. Can adjust regimen as outpatient/defer to PCP Qualifiers: Constipation type: unspecified constipation type Qualified Code(s): K59.00 - Constipation, unspecified (2) Acute retention of urine: Assessment and Plan: Likely due to constipation. Resolved. If recurrent, will recommend urology mirza. (3) Generalized weakness: Assessment and Plan: due to dehydration. Improved. PT/OT eval. Back to baseline. (4) CHF (congestive heart failure): Assessment and Plan: Resume home medications Qualifiers: Heart failure chronicity: chronic Heart failure type: diastolic Qualified Code(s): I50.32 - Chronic diastolic (congestive) heart failure (5) COPD (chronic obstructive pulmonary disease): Assessment and Plan: Stable, no active bronchospasm. Cw home meds. Qualifiers: COPD type: unspecified COPD Qualified Code(s): J44.9 - Chronic obstructive pulmonary disease, unspecified (6) HTN (hypertension): Assessment and Plan: C/w home meds. stable. Qualifiers: Hypertension type: primary hypertension Qualified Code(s): I10 - Essential (primary) hypertension (7) HLD (hyperlipidemia): Assessment and Plan: C/w statin Qualifiers: Hyperlipidemia type: unspecified Qualified Code(s): E78.5 - Hyperlipidemia, unspecified (8) Hypothyroidism: Assessment and Plan: C/w levothyroxine Qualifiers: Hypothyroidism type: unspecified Qualified Code(s): E03.9 - Hypothyroidism, unspecified Urinary Catheter Management Urinary Catheter Management Urethral: Cath placed during this visit: no
--- NOTE | 2023-08-03 11:55 | SWNOTE1 ---
DEVEN met with pt and son in room. Pt's son lives at home with her. Son is getting/building ramp for home. Pt has a lift chair, wheelchair, and commode at home. Pt has had HH in past, unsure of which home health company. It is recommended she has home health at discharge. Pt and son agreeable. They do not have preference on company, SW offered list from medicare.gov, but they do not have preference. DEVEN let pt and son know it may depend on her insurance as she has medicare adv plan. DEVEN to call various HH companies. [facility]EN called [facility] and they take it but will need to review. DEVEN sent face sheet, ER note, and PT/OT notes to [facility].
--- NOTE | 2023-08-03 12:13 | CM.NOTE ---
[facility] called and are unable to accept pt for HH services.
--- NOTE | 2023-08-03 12:17 | SWNOTE1 ---
[facility] is not able to accept. DEVEN called [facility] and they take insurance. DEVEN sent face sheet, ER note, and therapy notes to [facility].
--- NOTE | 2023-08-03 13:34 | SWNOTE1 ---
SW called [facility] and they are able to accept. SW let pt know.
--- NOTE | 2023-08-03 13:42 | SWNOTE1 ---
SW [facility] nursing [facility]
== END 2023-08-03 14:08 | disposition home health service (06) ==
LOC: ER 14:14 → ICU 14:45
PROVIDERS: Admitting Provider Internal Medicine; Emergency Provider Emergency Medicine; PCP Internal Medicine; Visit Provider Internal Medicine
DX: K59.00 Constipation, unspecified (principal); R33.9 Retention of urine, unspecified; R53.1 Weakness; E86.0 Dehydration; I11.0 Hypertensive heart disease with heart failure; I50.32 Chronic diastolic (congestive) heart failure; J44.9 Chronic obstructive pulmonary disease, unspecified; E78.5 Hyperlipidemia, unspecified; E03.9 Hypothyroidism, unspecified; E66.9 Obesity, unspecified; Z68.30 Body mass index [BMI] 30.0-30.9, adult; Z79.890 Hormone replacement therapy; Z79.899 Other long term (current) drug therapy; Z90.710 Acquired absence of both cervix and uterus; Z98.890 Other specified postprocedural states; Z79.82 Long term (current) use of aspirin
CPT/HCPCS: 36415; 51798; 74176; 80053; 81003; 85025; 94761; 96372; 97161; 97165; 99285; G0378; J1650

== ENCOUNTER 2023-10-29 12:00 | Emergency (ER) | payer MEDICARE, SELFPAY ==
[2023-10-29 12:05] VITALS: BP 120/63; PULSE 74; TEMP 37; O2SAT 97; BMI 32.0
--- NOTE | 2023-10-29 12:11 | XR_ITS ---
[address] [address] Patient Name: ELGIN NORWOOD MRN: [id number] date: 1940 Sex: F Assigned Patient Location: ER Current Patient Location: ED.MAIN Accession/Order Number: [id number] Exam Date: 10/29/2023 12:28 Report Date: 10/29/2023 13:25 At the request of: LAYNE TERRAZAS Procedure: XR abdomen 1V EXAM: XR abdomen 1V HISTORY: Possible constipation COMPARISON: None. FINDINGS/IMPRESSION: 1. Average stool burden of the colon. There is gas visualized within the colonic loops. 2. Mild degeneration of the bilateral hip joints. 3. Phleboliths of the pelvis. 4. No acute osseous abnormality. 5. Moderate degeneration of the lower lumbar spine. 6. No evidence for pneumoperitoneum. No portal venous gas. No evidence for pneumatosis. Electronically authenticated by: BRYAN ELLIS Date: 10/29/2023 13:25
--- NOTE | 2023-10-29 12:17 | ED_ITS ---
HPI HPI - General Adult General Stated complaint: CONSTIPATION Time Seen by Provider: 10/29/23 12:03 Source: patient Mode of arrival: ambulance Limitations: no limitations History of Present Illness HPI narrative: 83-year-old female presents for constipation. She has not had a good bowel movement for 3 days. She has been taking a stool softener and apparently took MiraLAX as well. She reportedly had a small formed bowel movement today. No fever or vomiting and she is not complaining of abdominal pain to me. Related Data Home Medications ?Medication ?Instructions ?Recorded ?Confirmed alprazolam 0.25 mg tablet 0.25 mg PO BID PRN anxiety 08/02/23 08/03/23 aspirin 81 mg chewable tablet 81 mg PO DAILY 08/02/23 08/02/23 (Dalton Chewable Low Dose Aspirin) atorvastatin 40 mg tablet 40 mg PO DAILY 08/02/23 08/02/23 brexpiprazole 2 mg tablet (Rexulti) 2 mg PO DAILY 08/02/23 08/02/23 bupropion HCl (smoking deter) 150 150 mg PO BID 08/02/23 08/03/23 mg tablet,12 hr sustained-release(smoking deterrent) carvedilol 12.5 mg tablet 12.5 mg PO Q12H 08/02/23 08/02/23 duloxetine 60 mg capsule,delayed 60 mg PO DAILY 08/02/23 08/02/23 release furosemide 40 mg tablet 40 mg PO DAILY 08/02/23 08/02/23 gabapentin 100 mg capsule 200 mg PO Q12H 08/02/23 08/02/23 lisinopril 5 mg tablet 5 mg PO DAILY 08/02/23 08/03/23 loratadine 10 mg tablet 10 mg PO Q24H 08/02/23 08/02/23 fluticasone 250 mcg-salmeterol 50 1 inh inhalation Q12H PRN 08/03/23 08/03/23 mcg/dose blistr powdr for shortness of breath or wheezing inhalation hydrocodone 7.5 mg-acetaminophen 1 tab PO Q6H PRN severe pain 08/03/23 08/03/23 325 mg tablet (scale score 7-10) levothyroxine 100 mcg tablet 100 mcg PO .ACB 08/03/23 08/03/23 omeprazole 40 mg capsule,delayed 40 mg PO .ACB 08/03/23 08/03/23 release Previous Rx's ?Medication ?Instructions ?Recorded docusate sodium 100 mg capsule 100 mg PO BID #60 caps 08/03/23 (Colace) Allergies Allergy/AdvReac Type Severity Reaction Status Date / Time naproxen [From Aleve] Allergy Intermediate Verified 10/29/23 12:05 Opioid HPI Opioid Management Most Recent Opioid Data: Last Pain Scale 0 08/03/23 11:20 Last Pain Intensity 0 08/03/23 11:20 Review of Systems ROS Narrative A ten point review of systems is negative except as noted above. [facility] Medical History (Updated 10/29/23 @ 13:33 by Tommie Block MD) Hypothyroidism ?E03.9 - Hypothyroidism, unspecified (ICD-10) HLD (hyperlipidemia) ?E78.5 - Hyperlipidemia, unspecified (ICD-10) HTN (hypertension) ?I10 - Essential (primary) hypertension (ICD-10) Insufficient home care support ?Z74.2 - Need for assistance at home and no other household member able to render care (ICD-10) Muscular deconditioning ?R29.898 - Other symptoms and signs involving the musculoskeletal system (ICD-10) CHF (congestive heart failure) ?I50.9 - Heart failure, unspecified (ICD-10) COPD (chronic obstructive pulmonary disease) ?J44.9 - Chronic obstructive pulmonary disease, unspecified (ICD-10) Surgical History (Updated 08/02/23 @ 15:00 by Fatou Moralez) H/O hysterectomy for benign disease ?Z90.710 - Acquired absence of both cervix and uterus (ICD-10) Previous back surgery ?Z98.890 - Other specified postprocedural states (ICD-10) H/O hernia repair ?Z98.890 - Other specified postprocedural states (ICD-10) ?Z87.19 - Personal history of other diseases of the digestive system (ICD-10) Social History (Updated 08/03/23 @ 11:44 by Shaikh Adonay MD) Within the past year, how often did you have a drink containing alcohol: never Score interpretation: A score less than 3 is consistent with normal alcohol consumption. 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 General: The patient appears well and in no apparent distress. Patient is resting comfortably on cart. Skin: Warm, dry, no pallor noted. There is no rash noted. Head: Normocephalic, atraumatic Eye: Normal conjunctiva, no drainage Ears, Nose, Mouth, and Throat: oral mucosa is moist. Nares patent. Cardiovascular: Regular Rate and Rhythm Respiratory: Patient is in no distress, no accessory muscle use, lungs are clear to auscultation, no wheezing, rales or rhonchi Back: non-tender GI: Soft, nontender, nondistended, no mass Musculoskeletal: The patient has no evidence of calf tenderness, no pitting edema, symmetrical pulses noted bilaterally Neurological: A&O, normal speech Psychiatric: Cooperative Constitutional Vital Signs, click to edit/add: Last Vital Signs Temp 98.6 F 10/29/23 12:05 Pulse 74 10/29/23 12:05 Resp 15 10/29/23 12:05 BP 120/63 10/29/23 12:05 Pulse Ox 97 10/29/23 12:05 O2 Del Method Room Air 10/29/23 12:05 Course Vital Signs Vital signs: Vital Signs Temperature 98.6 F 10/29/23 12:05 Pulse Rate 74 10/29/23 12:05 Respiratory Rate 15 10/29/23 12:05 Blood Pressure 120/63 10/29/23 12:05 Pulse Oximetry 97 10/29/23 12:05 Oxygen Delivery Method Room Air 10/29/23 12:05 Temperature 98.6 F 10/29/23 12:05 Pulse Rate 74 10/29/23 12:05 Respiratory Rate 15 10/29/23 12:05 Blood Pressure 120/63 10/29/23 12:05 Pulse Oximetry 97 10/29/23 12:05 Oxygen Delivery Method Room Air 10/29/23 12:05 Medical Decision Making [facility] Narrative Medical decision making narrative: X-ray shows average stool burden. She was reassured and discharged home. Treatment diagnosis and follow-up were discussed with the patient Differential Diagnosis Differential Diagnosis: Constipation Discharge Plan Discharge Stand Alone Forms: Portal Instructions Clinical Impression: No problem, feared complaint unfounded Patient Disposition: Home, Self-Care Time of Disposition Decision: 13:32 Condition: Good Mode of Transportation: Private Vehicle Prescriptions / Home Meds: No Action alprazolam 0.25 mg tablet 0.25 mg PO BID PRN (Reason: anxiety) duloxetine 60 mg capsule,delayed release(DR/EC) 60 mg PO DAILY loratadine 10 mg tablet 10 mg PO Q24H lisinopril 5 mg tablet 5 mg PO DAILY aspirin [Dalton Chewable Aspirin] 81 mg tablet,chewable 81 mg PO DAILY Rexulti 2 mg tablet 2 mg PO DAILY Rx Instructions: administer on days 5 through 7 for starting therapy carvedilol 12.5 mg tablet 12.5 mg PO Q12H bupropion HCl (smoking deter) 150 mg tablet extended release 12 hr 150 mg PO BID gabapentin 100 mg capsule 200 mg PO Q12H atorvastatin 40 mg tablet 40 mg PO DAILY furosemide 40 mg tablet 40 mg PO DAILY fluticasone propion-salmeterol 250-50 mcg/dose blister with device 1 inh INHALATION Q12H PRN (Reason: shortness of breath or wheezing) hydrocodone-acetaminophen 7.5-325 mg tablet 1 tab PO Q6H PRN (Reason: severe pain (scale score 7-10)) levothyroxine 100 mcg tablet 100 mcg PO .ACB omeprazole 40 mg capsule,delayed release(DR/EC) 40 mg PO .ACB docusate sodium [Colace] 100 mg capsule 100 mg PO BID Qty: 60 0RF Print Language: Armenian Instructions: Constipation (ED) Referrals: MK ORTEGA [Primary Care Provider] - 1 week
[2023-10-29 13:45] VITALS: BP 144/74; PULSE 74; O2SAT 99
== END 2023-10-29 13:46 | disposition home or self-care (01) ==
PROVIDERS: Emergency Provider Emergency Medicine; PCP Internal Medicine
DX: Z71.1 Person with feared health complaint in whom no diagnosis is made (principal); Z79.899 Other long term (current) drug therapy; E03.9 Hypothyroidism, unspecified; E78.5 Hyperlipidemia, unspecified; I11.0 Hypertensive heart disease with heart failure; I50.9 Heart failure, unspecified; J44.9 Chronic obstructive pulmonary disease, unspecified; Z79.82 Long term (current) use of aspirin; Z79.890 Hormone replacement therapy
CPT/HCPCS: 74018; 99283

== ENCOUNTER 2023-11-19 13:11 | Outpatient (OUT) | payer MEDICARE, SELFPAY ==
--- NOTE | 2023-11-19 13:35 | XR_ITS ---
The [address] [address] Patient Name: ELGIN NORWOOD MRN: [id number] date: 1940 Sex: F Assigned Patient Location: [facility] Current Patient Location: Accession/Order Number: [id number] Exam Date: 11/19/2023 13:28 Report Date: 11/20/2023 06:43 At the request of: MK ORTEGA Procedure: XR ribs LT min 3V w CXR1V EXAMINATION: XR ribs LT min 3V w CXR1V HISTORY: Rib Pain Left Side R07.8 ; left lateral rib pain; no known injury COMPARISON: No relevant comparison available. FINDINGS: LUNGS: No significant pulmonary parenchymal abnormalities. PLEURA: No pneumothorax, effusion, or pleural thickening. MEDIASTINUM: No visible mass or adenopathy. CARDIAC: No cardiomegaly or cardiac silhouette abnormality. RIBS: Normal. No significant arthropathy or acute abnormality. OTHER: Negative. XR/XR ribs LT min 3V w CXR1V IMPRESSION: 1. No suspicious cardiopulmonary process. 2. No appreciable rib abnormality. Electronically authenticated by: AMAYA GRAMAJO Date: 11/20/2023 06:43
== END 2023-11-19 13:12 | disposition home or self-care (01) ==
LOC: RAD 13:12
PROVIDERS: PCP Internal Medicine; Visit Provider Internal Medicine
DX: R07.81 Pleurodynia (principal)
CPT/HCPCS: 71101

== ENCOUNTER 2023-11-27 10:23 | Emergency (ER) | payer MEDICARE, SELFPAY ==
[2023-11-27 10:27] VITALS: BP 110/65; PULSE 77; TEMP 36.4; O2SAT 98
[2023-11-27] MEDS: 0.9 % SODIUM CHLORIDE 1,000 ML 999 ML IV (10:51)
--- OUTSIDE RECORDS SUMMARY | 2023-11-27 10:54 | XMS_ITS | CCD ---
Author Organization [facility] Care Team Providers Care Senior Network Security Engineer Name Role Phone Unavailable Unavailable Libra, Dr. Durbin Attending Unavaila tere Landers II, Yossi Meyer Primary Care Unavail able Libra, Dr. Durbin Referring Unavaila tere Smyth, Dr. Durbin Attending Unavaila tere Landers II, Yossi Meyer Primary Care Unavail able CARMEN ., TANYA Attending Unavailable CARMEN ., TANYA Admitting Unavailable GRECHNY ., PHILIP HERNANDEZ Consulting Unavailabl e JORDAN, DR TERRAZAS Primary Care Unavailable AHDOOTGRZEGORZEH Consulting Unavailable JUAN M ., STELLA Consulting Unavailable SISTER, SYLVESTER Consulting Unavailable CARMEN ., TANYA Consulting Unavailable PAVEL SANCHEZ Consulting Unavailable ALLISON MCCALL Consulting Unavailable JORDAN, DR TERRAZAS Consulting Unavailable JORDAN, DR TERRAZAS Primary Care Unavailable JORDAN, DR TERRAZAS Attending Unavailable JORDAN, DR TERRAZAS Admitting Unavailable ZIMARY, DR AMAYA [place] Consulting Unavailable JORDAN, DR TERRAZAS Consulting Unavailable JORDAN, DR TERRAZAS Primary Care Unavailable JORDAN, DR TERRAZAS Attending Unavailable JORDAN, DR TERRAZAS Admitting Unavailable BARRIE, DR CARLOS cMghee Consulting Unavailable SANJEEVMIS, ARACELI Consulting Unavailable JORDAN, DR TERRAZAS Primary Care Unavailable TIMMISMARIELYARACELI Attending Unavailable TIMMIS, ARACELI Admitting Unavailable ZIEBER, DR AMAYA Cleveland Consulting Unavailable TIMMIS, ARACELI Consulting Unavailable JORDAN, DR TERRAZAS Primary Care Unavailable TIMMIS, ARACELI Attending Unavailable TIMMIS, ARACELI Admitting Unavailable BARRIE, DR CARLOS Mcghee Consulting Unavailable KARYN WASHINGTON Consulting Unavailable JORDAN, DR TERRAZAS Primary Care Unavailable HEMMER, DR JOSE EDUARDO Bryant Attending Unavailable HEMMER, DR JOSE EDUARDO Bryant Admitting Unavailable HEMMER, DR JOSE EDUARDO Bryant Consulting Unavailable KATKO, LAYNE D Consulting Unavailable LAYNE TERRAZAS Attending Unavailable LAYNE TERRAZAS Admitting Unavailable DR YOSSI LANDERS Primary Care Unavailable DUANE BILLINGSLEY Consulting Unavailable AMAYA FRENCH Consulting Unavailable VIKY WILLIAMSON Consulting Unavailable REED LYNNE Consulting Unavailable Yossi Landers MD Primary Care Provider Yossi Landers MD Unavailable [phone] ARACELI OJEDA Attending Unavailable YOSSI LANDERS Attending Unavailable YOSSI LANDERS Attending Unavailable YOSSI LANDERS Attending Unavailable ARACELI OJEDA Attending Unavailable YOSSI LANDERS Attending Unavailable JOSE EDUARDO MASON Attending Unavailable Allergies Allergy Classification Reported Allergen(s) Allergy Type Date of Onset Reaction(s) Facility (7 sources) Naproxen; 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: [Aleve TABS] Drug Allergy 12-13-2020 Hives [facility] [employer] DO Work Phone: (5 sources) rofecoxib; 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: [Vioxx] Drug Allergy Anaphylaxis [place] [id number] DO Work Phone: (1 source) Benztropine Drug Allergy 06-14-2021 [facility] (1 source) Naproxen Drug Allergy 03-25-2013 [facility] (1 source) Naproxen Drug Allergy 06-14-2021 [facility] (1 source) rofecoxib Drug Allergy 03-25-2013 [facility] (2 sources) Benztropine Drug Allergy 11-30-2019 Other [facility] (2 sources) Benztropine Drug Allergy 11-30-2019 [facility] Work Phone: Medications Current Medications Medication Drug Class(es) Dates Sig (Normalized) Sig (Original) acetaminophen 325 mg / HYDROcodone bitartrate 7.5 mg oral tablet (8 sources) Opioid Agonist Start: 07-01-2023 End: 08-03-2023 take 1 tablet by mouth every six hours for pain HYDROcodone-acetami nophen ([place]imes) 7.5-325 MG tablet Indications: Degenerative lumbar spinal stenosis Take 1 tablet by mouth every 6 (six) hours if needed for severe pain 120 tablet 0 08/03/2023 Active Start: 10-14-2021 take 1 tablet by sky th three times daily as needed for pain HYDROcodone-Acetaminophen 7.5-325 MG Ora l Tablet TAKE 1 TABLET 3 TIMES DAILY NEEDED FOR PAIN. Quantity: 0 Refills: 0 Ordered: 14-Oct-2021 DO Start : 14-Oct-2021 Active [id number] 200 actuat albuterol 0.09 mg/actuat metered dose inhaler (4 sources) beta2-Adrenergic Agonist albuter ol (2.5 MG/3ML) 0.083% nebulizer solution Take 2.5 mg by nebulization every 8 (eight) hours if needed. 0 Active take 2 puff(s) by in halation every four hours albuterol HFA (ProAir HFA) 90 mcg/act inhaler Inhale 2 puffs every 4 (four) hours if needed. 0 Active ALPRAZolam 0.25 mg oral tablet (8 sources) Benzodiazepine Start: 07-01-2023 End: 08-03-2023 take 1 tablet by mouth twice daily as needed for anxiety ALPRAZolam (Xanax) 0.25 MG tablet Indications: Depression with anxiety Take 1 tablet (0.25 mg) by mouth 2 (two) times a day as needed for anxiety 60 tablet 3 08/03/2023 Active Start: 10-07-2021 take 1 tablet by sky th twice daily as needed for anxiety ALPRAZolam 0.25 MG Oral Tablet TAKE 1 TABLET BY MOUTH TWICE DAILY NEEDED FOR ANXIETY Quantity: 60 Refills: 0 Ordered: 11-Oct-2021 DO Start : 07-Oct-2021 Active aspirin 81 mg delayed release oral tablet (7 sources) Platelet Aggregation Inhibitor, Nonsteroidal Anti-inflammatory Drug take 1 tablet by mouth once daily aspirin 81 MG EC tablet Take 81 mg by mouth 1 (one) time each day at the same time. 0 Active atorvastatin 40 mg oral tablet (7 sources) HMG-CoA Reductase Inhibitor Start: 023 End: [...] Suppl (ONE TOUCH ULTRA 2) w/Device kit (2 sources) Start: 11-05-2022 Blood Glucose Monitoring Suppl (ONE TOUCH ULTRA 2) w/Device kit Inject under the skin 1 (one) time each day. 0 11/05/2022 Active brexpiprazole 2 mg oral tablet (7 sources) Atypical Antipsychotic Start: 11-24-2022 End: 11-24-2023 [...] hydrochloride 150 mg extended release oral tablet (7 sources) Aminoketone Start: 11-24-2022 End: 11-24-2023 take [...] 01-May-2021 Active carvedilol 12.5 mg oral tablet (7 sources) alpha-Adrenergic Mayco, beta-Adrenergic Mayco Start: 01-08-2023 take 1 tablet by mouth twice daily at mealtime carvedilol (Coreg) 12.5 MG tablet Indications: 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) TAKE 1 TABLET BY MOUTH TWICE A DAY WITH FOOD 180 tablet 3 01/08/2023 Active Start: 01-14-2021 take 1 tablet by sky twice daily at mealtime Carvedilol 12.5 MG Oral Tablet take 1 tablet by mouth twice a day with food Quantity: 180 Refills: 3 Ordered: 15-Oct-2021 Xochitl Smyth MD Start : 14-Jan-2021 Active DULoxetine 60 mg delayed release oral capsule (7 sources) Serotonin and Norepinephrine Reuptake Inhibitor Start: 11-24-2022 End: 11-24-2023 take 1 capsule by mouth in the morning DULoxetine (Cymbalta) [address] capsule Indications: Depression with anxiety Take 1 capsule (60 mg) by mouth in the morning. 90 capsule 3 11/24/2022 11/24/2023 Active Start: 07-30-2021 take 1 capsule by mo [facility] once daily DULoxetine HCl - 60 MG Oral Capsule Delayed Release Particles TAKE 1 CAPSULE BY MOUTH EVERY DAY Quantity: 90 Refills: 0 Ordered: 30-Jul-2021 DO Start : 30-Jul-2021 Active eye vitamin supplement (Ocuvite Eye Health Formula) capsule (2 sources) take 1 capsule by mouth in the morning eye vitamin supplement (Ocuvite Eye Health Formula) capsule Take 1 capsule by mouth in the morning. 0 Active fluticasone propionate 0.05 mg/actuat metered dose nasal spray (2 sources) Corticosteroid Start: 3 End: 4 take 1 spray(s) nasal route in the morning fluticasone (Flonase Allergy Relief) 50 MCG/ACT nasal spray Indications: Chronic allergic rhinitis Administer 1 spray into each nostril in the morning. 16 g 11 11/24/2022 11/24/2023 Active gabapentin 100 mg oral capsule (7 sources) Anti-epileptic Agent Start: 4 End: 5 take 2 capsules by mouth in the morning gabapentin (Neurontin) 100 MG capsule Indications: Type 2 diabetes mellitus with diabetic neuropathy, without long-term current use of insulin ([facility]) Take 2 capsules (200 mg) by mouth in the morning and 2 capsules (200 mg) before bedtime. 360 capsule 3 07/24/2023 07/23/2024 Active Start: 10-18-2020 take 2 capsules by m outh twice daily Gabapentin 100 MG Oral Capsule TAKE 2 CAPSULES TWICE A DAY Quantity: 360 Refills: 0 Ordered: 15-Jul-2021 DO Start : 18-Oct-2020 Active ipratropium bromide 0.042 mg/actuat metered dose nasal spray (2 sources) Anticholinergic take 2 spray(s) nasal route in the morning, then take 2 spray(s) nasal route in the evening, then take 2 spray(s) nasal route at bedtime ipratropium (Atrovent) 0.06 % nasal spray Administer 2 sprays into each nostril in the morning and 2 sprays in the evening and 2 sprays before bedtime. 0 Active levothyroxine sodium 0.1 mg oral tablet (7 sources) l-Thyroxine Start: 3 End: 4 take 1 tablet by mouth before mealtime [...] 12-Aug-2021 Active lisinopril 5 mg oral tablet (8 sources) Angiotensin Converting Enzyme Inhibitor Start: 07-27-2023 [...] DAY Quantity: 90 Refills: 3 Ordered: 15-Oct-2021 Libra VALDEZ, Mourhaf Start : 12-May-2021 Active loratadine 10 mg oral tablet (7 sources) Start: 04-09-2023 take 1 tablet by [...] Active loratadine (Claritin) 5 mg split tablet (2 sources) Start: 07-05-2022 take 2 tablets by mouth in the morning loratadine (Claritin) 5 mg split tablet Take 10 mg by mouth in the morning. 0 07/05/2022 Active meclizine hydrochloride 12.5 mg oral tablet (2 sources) Antiemetic Start: 09-10-2017 take 1 tablet by mouth three times daily as needed for dizziness meclizine (Antivert) 12.5 MG tablet Take 12.5 mg by mouth 3 (three) times a day as needed for dizziness. 0 09/10/2017 Active Multiple Vitamins-Minerals (OCUVITE ADULT 50+ PO) (2 sources) Multiple Vitamins-Minerals (OCUVITE ADULT 50+ PO) Take by mouth 1 (one) time each day. 0 Active nitroglycerin 0.4 mg sublingual tablet (2 sources) Nitrate Vasodilator nitroglycerin (Nitrostat) 0.[address] 0.4 mg under the tongue every 5 (five) minutes if needed. 0 Active nystatin 100 unt/mg topical ointment (2 sources) Polyene Antifungal nystatin (Mycostatin) ointment every 12 (twelve) hours. 0 Active omeprazole 40 mg delayed release oral capsule (2 sources) Proton Pump Inhibitor Start: 12-10-2022 omeprazole (PriLOSEC) [address] capsule Indications: Gastroesophageal reflux disease without esophagitis TAKE 1 CAPSULE BY MOUTH EVERY DAY 30 MINUTES BEFORE MORNING MEAL FOR 30 DAYS 90 capsule 3 12/10/2022 Active polyethylene glycol 3350 86001 mg powder for oral solution (2 sources) Osmotic Laxative Start: 11-24-2022 End: 11-24-2023 polyethylene glycol, PEG, 3350 (MiraLax) 17 GM/SCOOP powder Indications: Chronic constipation Take 17 g by mouth in the morning. 1530 g 3 11/24/2022 11/24/2023 Active microencapsulated potassium chloride 20 meq extended release oral tablet (7 sources) Start: 11-24-2022 End: 11-24-2023 take 1 [...] / salmeterol 0.05 mg/actuat dry powder inhaler (7 sources) Corticosteroid, beta2-Adrenergic Agonist Start: 10-18-2020 take [...] 0 Active furosemide 40 mg oral tablet (7 sources) Loop Diuretic Start: 03-04-2021 take 1 tablet by mouth once daily Furosemide 40 MG Oral Tablet TAKE 1 TABLET BY MOUTH EVERY DAY Quantity: 90 Refills: 0 Ordered: 13-Aug-2021 DO Start : 04-Mar-2021 Active linaclotide 0.29 mg oral capsule (5 sources) Guanylate Cyclase-C Agonist Start: 01-02-2022 take [...] BIO SUBST] Onset: 10-23-2022 Episodic Anxiety disorders (4 sources) Anxiety disorder, unspecified; 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: [Mixed anxiety and depressive disorder] Onset: 10-23-2022 11-04-2022 Chronic Chronic kidney disease (1 source) Chronic kidney disease, unspecified; 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: [CHRONIC KIDNEY DISEASE UNSPECIFIED] Onset: 08-25-2022 Chronic Chronic obstructive pulmonary disease and bronchiectasis (11 sources) Chronic obstructive lung disease; 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: [Chronic airway obstruction, not elsewhere classified] Onset: 07-16-2016 Resolved: 12-14-2022 11-04-2022 Chronic Complications of surgical procedures or medical care (1 source) Postprocedural hypothyroidism; 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: [POSTPROCEDURAL HYPOTHYROIDISM] Onset: 08-25-2022 Chronic Congestive heart failure; nonhypertensive (7 sources) Heart failure, unspecified; 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: [Chronic combined systolic and diastolic heart failure] Onset: 04-30-2015 Resolved: 12-14-2022 11-04-2022 Chronic Coronary atherosclerosis and other heart disease (9 sources) Disorder of coronary artery; 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: [Coronary atherosclerosis of unspecified type of vessel, [place] or graft] Onset: 04-14-2022 11-04-2022 Chronic Diabetes mellitus with complications (8 sources) Type 2 diabetes mellitus with diabetic chronic kidney disease; 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: [Type 2 diabetes mellitus with diabetic peripheral angiopathy without gangrene] Onset: 02-23-2019 11-04-2022 Chronic Diabetes mellitus without complication (5 sources) Diabetes mellitus; 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: [Diabetes mellitus without mention of complication, type II or unspecified type, not stated as uncontrolled] Chronic Disorders of lipid metabolism (8 sources) Hyperlipidemia; 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: [Other and unspecified hyperlipidemia] Onset: 10-23-2022 11-04-2022 Chronic E Codes: Fall (2 sources) Unspecified fall, initial encounter; 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: [Fall on same level from slipping, tripping and stumbling with subsequent striking against unspecified object, initial encounter] Onset: 08-25-2022 Episodic Esophageal disorders (7 sources) Gastro-esophageal reflux disease without esophagitis; 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: [Gastroesophageal reflux disease] Onset: 12-05-2021 Chronic Essential hypertension (8 sources) Hypertensive disorder; 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: [Unspecified essential hypertension] Onset: 11-04-2022 07-27-2023 Chronic Hypertension with complications and secondary hypertension (4 sources) 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 4 chronic kidney disease, or unspecified chronic kidney disease; 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: [Hypertensive chronic kidney disease with stage 1 through stage 4 chronic kidney disease, or unspecified chronic kidney disease] Onset: 08-25-2022 11-04-2022 Chronic Menopausal disorders (1 source) Hormone replacement therapy; 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: [HORMONE REPLACEMENT THERAPY] Onset: 10-23-2022 Episodic Mood disorders (2 sources) Recurrent major depressive episodes, moderate ; 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: [Major depressive disorder, recurrent, moderate] Onset: 11-04-2022 11-04-2022 Chronic Mood disorders (1 source) Mood disorders; 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: [DEPRESSION UNSPECIFIED] Onset: 10-23-2022 Occlusion or stenosis of precerebral arteries (8 sources) Bilateral stenosis of carotid arteries; 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: [Occlusion and stenosis of carotid artery without mention of cerebral infarction] Onset: 04-14-2022 11-04-2022 Chronic Open wounds of head; neck; and trunk (5 sources) Laceration without foreign body of other part of head, initial encounter; 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: [LAC W/O FB OTH PART HEAD INIT ENC] Onset: 08-24-2022 Episodic Osteoarthritis (7 sources) Unspecified osteoarthritis, unspecified site; 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: [Osteoarthritis of multiple joints ] Onset: 08-25-2022 11-04-2022 Chronic Other aftercare (1 source) ocean transportation intermediary (current) use of aspirin; 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: [CHECKING CLERK CURRENT USE OF ASPIRIN] Onset: 10-23-2022 Episodic Other aftercare (1 source) Other superintendent marine oil terminal (current) drug therapy; 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: [OTH INTERMEDIATE CURRENT DRUG THERAPY] Onset: 10-23-2022 Episodic Other aftercare (1 source) [employer] (current) use of inhaled steroids; 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: [CHECKING CLERK USE OF INHALED STEROIDS] Onset: 10-23-2022 Episodic Other and ill-defined heart disease (2 sources) Left ventricular hypertrophy; 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: [Cardiomegaly] Onset: 11-04-2022 11-04-2022 Chronic Other and ill-defined heart disease (2 sources) Cardiomegaly; 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: [Cardiomegaly] Onset: 04-30-2015 12-14-2022 Chronic [...] Episodic Other diseases of bladder and urethra (2 sources) Overactive bladder; 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: [Overactive bladder] Onset: 11-04-2022 11-04-2022 Chronic Other diseases of veins and lymphatics (1 source) Lymphedema, not elsewhere classified; 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: [LYMPHEDEMA NOT ELSEWHERE CLASSIFIED] Onset: 10-23-2022 Chronic Other hereditary and degenerative nervous system conditions (2 sources) Impaired cognition; 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: [Mild cognitive impairment, so stated] Onset: 11-04-2022 11-04-2022 Chronic Other lower respiratory disease (5 sources) Dyspnea; 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: [Other respiratory abnormalities] Episodic Other lower respiratory disease (1 source) Personal history of pneumonia (recurrent); 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: [PERSONAL HX OF PNEUMONIA RECURRENT] Onset: 10-23-2022 Episodic Other nervous system disorders (1 source) Encephalopathy, unspecified; 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: [ENCEPHALOPATHY UNSPECIFIED] Onset: 10-23-2022 Chronic Other nervous system disorders (2 sources) Neuropathy; 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: [Polyneuropathy, unspecified] Onset: 11-04-2022 11-04-2022 Chronic Other nutritional; endocrine; and metabolic disorders (5 sources) Severe obesity; 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: [Morbid obesity] Chronic Other nutritional; endocrine; and metabolic disorders (2 sources) Body mass index 30+ - obesity; 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: [Obesity, unspecified] Onset: 11-04-2022 11-04-2022 Chronic Other upper respiratory disease (2 sources) Allergic rhinitis; 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: [Allergic rhinitis, unspecified] Onset: 11-04-2022 11-04-2022 Chronic Gogo-; endo-; and myocarditis; cardiomyopathy (except that caused by tuberculosis or sexually transmitted disease) (8 sources) Cardiomyopathy; 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: [Other primary cardiomyopathies] Onset: 11-11-2021 11-04-2022 Chronic Peripheral and visceral atherosclerosis (3 sources) Peripheral vascular disease, unspecified; 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: [Peripheral [...] Retinal detachments; defects; vascular occlusion; and retinopathy (2 sources) Exudative age-related macular degeneration; 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: [Exudative age-related macular degeneration, unspecified eye, stage unspecified] Onset: 11-04-2022 11-04-2022 Chronic Spondylosis; intervertebral disc disorders; other back problems (3 sources) Degenerative lumbar spinal stenosis; 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: [Spinal stenosis, lumbar region without neurogenic claudication] Onset: 11-04-2022 11-04-2022 Episodic Thyroid disorders (15 sources) Hypothyroidism, unspecified; 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: [Nontoxic multinodular goiter] Onset: 01-07-2022 Chronic Unclassified (1 source) CHRN KIDNEY DISEASE STG 3 UNSP; 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: [CHRN KIDNEY DISEASE STG 3 UNSP] Onset: 10-23-2022 Unclassified (1 source) CONTACT W/AND (SUSP) EXPOS COVID-19; 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: [CONTACT W/AND (SUSP) EXPOS COVID-19] Onset: 10-23-2022 Past or Other Problems Problem Classification Problem Date Documented Da te Episodic/Chronic Other connective tissue disease (2 sources) Extrapyramidal sign; 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: [Other symptoms and signs involving the nervous system] Onset: 11-04-2022 11-04-2022 Episodic Other gastrointestinal disorders (2 sources) Chronic constipation; 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: [Other constipation] Onset: 11-04-2022 11-04-2022 Episodic Other lower respiratory disease (1 source) Dyspnea, unspecified; 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: [Dyspnea, unspecified] Onset: 11-11-2021 Episodic Other nervous system disorders (2 sources) Ataxic gait; 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] Onset: 11-04-2022 11-04-2022 Episodic Other nervous system disorders (2 sources) Ataxia; 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: [Ataxia, unspecified] Onset: 10-23-2017 12-14-2022 Episodic Other nutritional; endocrine; and metabolic disorders (2 sources) Morbid obesity; 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: [Morbid (severe) obesity due to excess calories] Onset: 07-04-2019 Resolved: 12-14-2022 12-14-2022 Chronic Other skin disorders (4 sources) Localized swelling, mass and lump, neck; 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: [LOCALIZED SWELLING MASS AND LUMP NECK] Onset: 12-30-2021 Episodic Screening and history of mental health and substance abuse codes (8 sources) Ex-smoker; 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: [Personal history of tobacco use] Onset: 08-15-2017 Resolved: 12-14-2022 12-14-2022 Episodic Comment on above: quit 1996, 2ppd; Results Test Name Value Interpretation Reference Range Facility CORTISOL FREE, SERUMon 10-24 Cortisol, Free Dialysis, LCMS 0.462 ug/dL Normal [facility] Comment on above: Result Comment: Thes e tests were developed and their performance characteristics determined by [employer]. They have not been cleared or approved by the Food and Drug Administration. Reference Range: 8 AM 0.10 - 1.20 4 PM 0.042 - 0.872 Performed By: #### E RUR #### [facility] [address] [place] [address] Dr. Soila Pastor CBC AUTO DIFFon 10-16-2022 BASO # 0.0 103/ul Normal 0.0-0.1 [facility] Comment on above: Performed By: #### C BC #### [facility] [address] [place] [address] Dr. Soila Pastor Basophils/100 WBC (Bld) 0.4 % Normal 0.2-2.0 [facility] Comment on above: Performed By: #### C BC #### [facility] [address] [place] [address] Dr. Soila Pastor EO # 0.1 103/ul Normal 0.0-0.7 [facility] Comment on above: Performed By: #### C BC #### [facility] [address] [place] [address] Dr. Soila Pastor Eosinophils/100 WBC (Bld) 1.0 % Normal 0.9-7.0 [facility] Comment on above: Performed By: #### C BC #### [facility] [address] [place] [address] Dr. Soila Pastor Erythrocyte distribution width (RBC) [Ratio] 13.4 % Normal 11.0-15.0 [facility] Comment on above: Performed By: #### C BC #### [facility] [address] [place] [address] Dr. Soila Pastor Hematocrit (Bld) [Volume fraction] 34.7 % Critically low 36.0-48.0 [facility] Comment on above: Performed By: #### C BC #### [facility] [address] [place] [address] Dr. Soila Pastor Hemoglobin (Bld) [Mass/Vol] 10.8 g/dL Critically low 12.0-16.0 [facility] Comment on above: Performed By: #### C BC #### [facility] [address] [place] [address] Dr. Soila Pastor IG # 0.03 10e3/ul Normal 0.00-0.03 [facility] Comment on above: Performed By: #### C BC #### [facility] [address] [place] [address] Dr. Soila Pastor IG % 0.4 % Normal 0.0-0.5 [facility] Comment on above: Performed By: #### C BC #### [facility] [address] [place] [address] Dr. Soila Pastor LYMPH # 1.7 103/ul Normal 1.2-3.8 [facility] Comment on above: Performed By: #### C BC #### [facility] [address] [place] [address] Dr. Soila Pastor Lymphocytes/100 WBC (Bld) 22.1 % Normal 20.5-60.0 [facility] Comment on above: Performed By: #### C BC #### [facility] [address] [place] [address] Dr. Soila Pastor MANUAL DIFF REQ NO Normal [facility] Comment on above: Performed By: #### C BC #### [facility] [address] [place] [address] Dr. Soila Pastor MCH (RBC) [Entitic mass] 30.0 pg Normal 26.7-34.0 [facility] Comment on above: Performed By: #### C BC #### [facility] [address] [place] [address] Dr. Soila Pastor MCHC (RBC) [Mass/Vol] 31.1 g/dL Normal 29.9-35.2 [facility] Comment on above: Performed By: #### C BC #### [facility] [address] [place] [address] Dr. Soila Pastor MCV (RBC) [Entitic vol] 96.4 fL Normal 81.0-99.0 [facility] Comment on above: Performed By: #### C BC #### [facility] [address] [place] [address] Dr. Soila Pastor MONO # 0.5 103/ul Normal 0.3-0.8 [facility] Comment on above: Performed By: #### C BC #### [facility] [address] [place] [address] Dr. Soila Pastor Monocytes/100 WBC (Bld) 6.9 % Normal 1.7-12.0 [facility] Comment on above: Performed By: #### C BC #### [facility] [address] [place] [address] Dr. Soila Pastor NEUT # 5.4 103/ul Normal 1.4-6.5 [facility] Comment on above: Performed By: #### C BC #### [facility] [address] [place] [address] Dr. Soila Pastor Neutrophils/100 WBC (Bld) 69.2 % Normal 43.0-75.0 [facility] Comment on above: Performed By: #### C BC #### [facility] [address] [place] [address] Dr. Soila Pastor Platelet mean volume (Bld) [Entitic vol] 11.8 fL Normal 9.5-13.5 [facility] Comment on above: Performed By: #### C BC #### [facility] [address] [address] [address] Soila Pastor PLT 128 103/ul Critically low 150-450 [facility] Comment on above: Performed By: #### C BC #### [facility] [address] [address] [address] Soila Pastor RBC 3.60 106/ul Critically low 4.20-5.40 [facility] Comment on above: Performed By: #### C BC #### [facility] [address] [place] [address] Dr. Soila Pastor WBC 7.9 103/ul Normal 4.0-11.0 [facility] Comment on above: Performed By: #### C BC #### [facility] [address] [place] [address] Dr. Soila Pastor PROF 14(COMP METB)on 023 Albumin [Mass/Vol] 2.4 g/dL Critically low 3.4-5.0 [facility] Comment on above: Performed By: #### C MP #### [facility] [address] [place] [address] Dr. Soila Pastor Albumin/Globulin [Mass ratio] 0.7 {ratio} Normal [facility] Comment on above: Performed By: #### C MP #### [facility] [address] [place] [address] Dr. Soila Pastor ALP [Catalytic activity/Vol] 66 U/L Normal 46-116 [facility] Comment on above: Performed By: #### C MP #### [facility] [address] [place] [address] Dr. Soila Pastor ALT [Catalytic activity/Vol] 15 U/L Normal 14-59 [facility] Comment on above: Performed By: #### C MP #### [facility] [address] [place] [address] Dr. Soila Pastor Anion gap [Moles/Vol] 12.1 mmol/L Normal [facility] Comment on above: Performed By: #### C MP #### [facility] [address] [place] [address] Dr. Soila Pastor AST [Catalytic activity/Vol] 18 U/L Normal 15-37 [facility] Comment on above: Performed By: #### C MP #### [facility] [address] [address] [address] Soila Pastor Bilirubin [Mass/Vol] 0.3 mg/dL Normal 0.2-1.0 [facility] Comment on above: Performed By: #### C MP #### [facility] [address] [address] [address] Soila Pastor Calcium [Mass/Vol] 8.6 mg/dL Normal 8.5-10.1 [facility] Comment on above: Performed By: #### C MP #### [facility] [address] [address] [address] Soila Pastor Chloride [Moles/Vol] 110 mmol/L Critically high 98-107 [facility] Comment on above: Performed By: #### C MP #### [facility] [address] [address] [address] Soila Pastor CO2 [Moles/Vol] 26.2 mmol/L Normal 21.0-32.0 [facility] Comment on above: Performed By: #### C MP #### [facility] [address] [address] [address] Soila Pastor Creatinine [Mass/Vol] 0.74 mg/dL Normal 0.55-1.02 [facility] Comment on above: Performed By: #### C MP #### [facility] [address] [address] [address] Soila Pastor EGFR-AF COLOMBIAN >60 Normal >=60 [facility] Comment on above: Performed By: #### C MP #### [facility] [address] [address] [address] Soila Pastor EGFR-NON AF COLOMBIAN >60 Normal >=60 [facility] Comment on above: Performed By: #### C MP #### [facility] [address] [address] [address] Soila Pastor Globulin (S) [Mass/Vol] 3.6 g/dL Normal [facility] Comment on above: Performed By: #### C MP #### [facility] [address] [address] [address] Soila Pastor Glucose [Mass/Vol] 119 mg/dL Critically high 74-106 T [facility] Comment on above: Performed By: #### C MP #### [facility] [address] [address] [address] Soila Pastor Potassium [Moles/Vol] 3.3 mmol/L Critically low 3.5-5.1 [facility] Comment on above: Performed By: #### C MP #### [facility] [address] [address] [address] Soila Pastor Protein [Mass/Vol] 6.0 g/dL Critically low 6.4-8.2 [facility] Comment on above: Performed By: #### C MP #### [facility] [address] [address] [address] Soila Pastor Sodium [Moles/Vol] 145 mmol/L Normal 136-145 [facility] Comment on above: Performed By: #### C MP #### [facility] [address] [address] [address] Soila Pastor Urea nitrogen [Mass/Vol] 11.0 mg/dL Normal 7.0-18.0 [facility] Comment on above: Performed By: #### C MP #### [facility] [address] [address] [address] Soila Pastor Urea nitrogen/Creatinine [Mass ratio] 14.9 mg/mg Normal [facility] Comment on above: Performed By: #### C MP #### [facility] [address] [address] [address] Soila Pastor CARDIAC KARYN 3-6on 3 CK [Catalytic activity/Vol] 251 U/L Critically high -192 [facility] Comment on above: Performed By: #### E RUR #### [facility] [address] [address] [address] Soila Pastor CK.MB [Mass/Vol] 4.50 ng/mL Critically high <=3.60 [facility] Comment on above: Performed By: #### E RUR #### [facility] [address] [place] [address] Dr. Soila Pastor HSTROP 6.9 pg/mL Normal 4.0-51.3 [facility] Comment on above: Result Comment: CUT- OFF POINTS HAVE BEEN ESTABLISHED BASED ON THE FOURTH UNIVERSAL DEFINITIONS OF MYOCARDIAL INFARCTION. THE UPPER REFERENCE LIMIT (URL) OF TROPONIN, DEFINED THE 99TH PERCENTILE OF cTnI DISTRIBUTION IN A REFERENCE POPULATION, HAS BEEN CONFIRMED THE DECISION THRESHOLD FOR ME DIAGNOSIS. Performed By: #### E RUR #### [facility] [address] [place] [address] Dr. Soila Pastor CK [Catalytic activity/Vol] 143 U/L Normal 26-192 [facility] Comment on above: Performed By: #### E RUR #### [facility] [address] [place] [address] Dr. Soila Pastor CK.MB [Mass/Vol] 4.50 ng/mL Critically high <=3.60 [facility] Comment on above: Performed By: #### E RUR #### [facility] [address] [place] [address] Dr. Soila Pastor HSTROP 8.9 pg/mL Normal 4.0-51.3 [facility] Comment on above: Result Comment: CUT- OFF POINTS HAVE BEEN ESTABLISHED BASED ON THE FOURTH UNIVERSAL DEFINITIONS OF MYOCARDIAL INFARCTION. THE UPPER REFERENCE LIMIT (URL) OF TROPONIN, DEFINED THE 99TH PERCENTILE OF cTnI DISTRIBUTION IN A REFERENCE POPULATION, HAS BEEN CONFIRMED THE DECISION THRESHOLD FOR ME DIAGNOSIS. Performed By: #### E RUR #### [facility] [address] [place] [address] Dr. Soila Pastor CBC AUTO DIFFon 10-15-2022 BASO # 0.0 103/ul Normal 0.0-0.1 [facility] Comment on above: Performed By: #### C BC #### [facility] [address] [place] [address] Dr. Soila Pastor Basophils/100 WBC (Bld) 0.2 % Normal 0.2-2.0 [facility] Comment on above: Performed By: #### C BC #### [facility] [address] [address] [address] Soila Pastor EO # 0.0 103/ul Normal 0.0-0.7 [facility] Comment on above: Performed By: #### C BC #### [facility] [address] [place] [address] Dr. Soila Pastor Eosinophils/100 WBC (Bld) 0.4 % Critically low 0.9-7.0 [facility] Comment on above: Performed By: #### C BC #### [facility] [address] [place] [address] Dr. Soila Pastor Erythrocyte distribution width (RBC) [Ratio] 13.7 % Normal 11.0-15.0 [facility] Comment on above: Performed By: #### C BC #### [facility] [address] [place] [address] Dr. Soila Pastor Hematocrit (Bld) [Volume fraction] 34.4 % Critically low 36.0-48.0 [facility] Comment on above: Performed By: #### C BC #### [facility] [address] [place] [address] Dr. Soila Pastor Hemoglobin (Bld) [Mass/Vol] 10.7 g/dL Critically low 12.0-16.0 [facility] Comment on above: Performed By: #### C BC #### [facility] [address] [place] [address] Dr. Soila Pastor IG # 0.21 10e3/ul Critically high 0.00-0.03 [facility] Comment on above: Performed By: #### C BC #### [facility] [address] [place] [address] Dr. Soila Pastor IG % 2.1 % Critically high 0.0-0.5 [facility] Comment on above: Performed By: #### C BC #### [facility] [address] [place] [address] Dr. Soila Pastor LYMPH # 0.9 103/ul Critically low 1.2-3.8 [facility] Comment on above: Performed By: #### C BC #### [facility] [address] [place] [address] Dr. Soila Pastor Lymphocytes/100 WBC (Bld) 8.9 % Critically low 20.5-60.0 [facility] Comment on above: Performed By: #### C BC #### [facility] [address] [place] [address] Dr. Soila Pastor MANUAL DIFF REQ NO Normal [facility] Comment on above: Performed By: #### C BC #### [facility] [address] [place] [address] Dr. Soila Pastor MCH (RBC) [Entitic mass] 30.7 pg Normal 26.7-34.0 [facility] Comment on above: Performed By: #### C BC #### [facility] [address] [place] [address] Dr. Soila Pastor MCHC (RBC) [Mass/Vol] 31.1 g/dL Normal 29.9-35.2 [facility] Comment on above: Performed By: #### C BC #### [facility] [address] [place] [address] Dr. Soila Pastor MCV (RBC) [Entitic vol] 98.9 fL Normal 81.0-99.0 [facility] Comment on above: Performed By: #### C BC #### [facility] [address] [place] [address] Dr. Soila Pastor MONO # 0.4 103/ul Normal 0.3-0.8 [facility] Comment on above: Performed By: #### C BC #### [facility] [address] [place] [address] Dr. Soila Pastor Monocytes/100 WBC (Bld) 4.3 % Normal 1.7-12.0 [facility] Comment on above: Performed By: #### C BC #### [facility] [address] [place] [address] Dr. Soila Pastor NEUT # 8.4 103/ul Critically high 1.4-6.5 [facility] Comment on above: Performed By: #### C BC #### [facility] [address] [address] [address] Soila Pastor Neutrophils/100 WBC (Bld) 84.1 % Critically high 43.0-75.0 [facility] Comment on above: Performed By: #### C BC #### [facility] [address] [address] [address] Soila Pastor Platelet mean volume (Bld) [Entitic vol] 12.2 fL Normal 9.5-13.5 [facility] Comment on above: Performed By: #### C BC #### [facility] [address] [address] [address] Soila Pastor PLT 160 103/ul Normal 150-450 [facility] Comment on above: Performed By: #### C BC #### [facility] [address] [place] [address] Dr. Soila Pastor RBC 3.48 106/ul Critically low 4.20-5.40 [facility] Comment on above: Performed By: #### C BC #### [facility] [address] [place] [address] Dr. Soila Pastor WBC 9.9 103/ul Normal 4.0-11.0 [facility] Comment on above: Performed By: #### C BC #### [facility] [address] [place] [address] Dr. Soila Pastor CULTURE URINEon 10-15-2022 CULTURE URINE Culture Observations : NO GROWTH. Normal [facility] Comment on above: Performed By: #### P OCGLUC #### [facility] [address] [place] [address] Dr. Soila Pastor MAGNESIUMon 10-15-2022 Magnesium [Mass/Vol] 1.8 mg/dL Normal 1.8-2.4 [facility] Comment on above: Performed By: #### T 4, MG #### [facility] [address] [place] [address] Dr. Soila Pastor POINT OF CARE GLUCOSEon 09-21 Glucose [Mass/Vol] 123 mg/dL Critically high 74-106 [facility] Comment on above: Performed By: #### P OCGLUC #### [facility] [address] [address] [address] Soila Pastor Glucose [Mass/Vol] 128 mg/dL Critically high -106 [facility] Comment on above: Performed By: #### E RUR #### [facility] [address] [address] [address] Soila Pastor Glucose [Mass/Vol] 111 mg/dL Critically high -106 [facility] Comment on above: Performed By: #### P OCGLUC #### [facility] [address] [address] [address] Soila Pastor PROF 14(COMP METB)on 023 Albumin [Mass/Vol] 2.3 g/dL Critically low 3.4-5.0 [facility] Comment on above: Performed By: #### C MP #### [facility] [address] [place] [address] Dr. Soila Pastor Albumin/Globulin [Mass ratio] 0.7 {ratio} Normal [facility] Comment on above: Performed By: #### C MP #### [facility] [address] [place] [address] Dr. Soila Pastor ALP [Catalytic activity/Vol] 70 U/L Normal 46-116 [facility] Comment on above: Performed By: #### C MP #### [facility] [address] [address] [address] Soila Pastor ALT [Catalytic activity/Vol] 11 U/L Critically low 14-59 [facility] Comment on above: Performed By: #### C MP #### [facility] [address] [address] [address] Soila Pastor Anion gap [Moles/Vol] 11.2 mmol/L Normal [facility] Comment on above: Performed By: #### C MP #### [facility] [address] [place] [address] Dr. Soila Pastor AST [Catalytic activity/Vol] 32 U/L Normal 15-37 [facility] Comment on above: Performed By: #### C MP #### [facility] [address] [address] [address] Soila Pastor Bilirubin [Mass/Vol] 0.5 mg/dL Normal 0.2-1.0 [facility] Comment on above: Performed By: #### C MP #### [facility] [address] [address] [address] Soila Pastor Calcium [Mass/Vol] 7.8 mg/dL Critically low 8.5-10.1 [facility] Comment on above: Performed By: #### C MP #### [facility] [address] [address] [address] Soila Pastor Chloride [Moles/Vol] 104 mmol/L Normal 98-107 [facility] Comment on above: Performed By: #### C MP #### [facility] [address] [address] [address] Soila Pastor CO2 [Moles/Vol] 26.4 mmol/L Normal 21.0-32.0 [facility] Comment on above: Performed By: #### C MP #### [facility] [address] [address] [address] Soila Pastor Creatinine [Mass/Vol] 1.05 mg/dL Critically high 0.55-1.02 [facility] Comment on above: Performed By: #### C MP #### [facility] [address] [address] [address] Soila Pastor EGFR-AF COLOMBIAN >60 Normal >=60 [facility] Comment on above: Performed By: #### C MP #### [facility] [address] [address] [address] Soila Pastor EGFR-NON AF COLOMBIAN 50 mL/min/1.73m2 Critically low >=60 [facility] Comment on above: Performed By: #### C MP #### [facility] [address] [address] [address] Soila Pastor Globulin (S) [Mass/Vol] 3.5 g/dL Normal [facility] Comment on above: Performed By: #### C MP #### [facility] [address] [address] [address] Soila Pastor Glucose [Mass/Vol] 153 mg/dL Critically high 74-106 [facility] Comment on above: Performed By: #### C MP #### [facility] [address] [address] [address] Soila Pastor Potassium [Moles/Vol] 4.6 mmol/L Normal 3.5-5.1 [facility] Comment on above: Performed By: #### C MP #### [facility] [address] [address] [address] Soila Pastor Protein [Mass/Vol] 5.8 g/dL Critically low 6.4-8.2 [facility] Comment on above: Performed By: #### C MP #### [facility] [address] [address] [address] Soila Pastor Sodium [Moles/Vol] 137 mmol/L Normal 136-145 [facility] Comment on above: Performed By: #### C MP #### [facility] [address] [address] [address] Soila Pastor Urea nitrogen [Mass/Vol] 19.0 mg/dL Critically high 7.0-18.0 [facility] Comment on above: Performed By: #### C MP #### [facility] [address] [address] [address] Soila Pastor Urea nitrogen/Creatinine [Mass ratio] 18.1 mg/mg Normal [facility] Comment on above: Performed By: #### C MP #### [facility] [address] [address] [address] Soila Pastor T4on 10-15-2022 T4 [Mass/Vol] 7.30 ug/dL Normal 4.80-13.90 [facility] Comment on above: Performed By: #### T 4, MG #### [facility] [address] [place] [address] Dr. Soila Pastor ACETONE SERUMon 10-14-2022 ACETONE Negative Normal NEGATIVE [facility] Comment on above: Performed By: #### E RUR #### [facility] [address] [place] [address] Dr. Soila Pastor AMMONIAon 10-14-2022 Ammonia (P) [Moles/Vol] 24 umol/L Normal 11-32 [facility] Comment on above: Performed By: #### E RUR #### [facility] [address] [place] [address] Dr. Soila Pastor BLOOD GASES BTYon 10-14-2022 02 MODE ROOM AIR Normal [facility] Comment on above: Performed By: #### E RUR #### [facility] [address] [place] [address] Dr. Soila Pastor ALLENS TEST Positive [facility] Comment on above: Performed By: #### E RUR #### [facility] [address] [place] [address] Dr. Soila Pastor Base excess Calc (Bld) [Moles/Vol] 1.0 mmol/L Normal -2.0-2.0 [facility] Comment on above: Performed By: #### E RUR #### [facility] [address] [place] [address] Dr. Soila Pastor BIPAP PRESSURE [facility] Comment on above: Performed By: #### E RUR #### [facility] [address] [place] [address] Dr. Soila Pastor CPAP [facility] Comment on above: Performed By: #### E RUR #### [facility] [address] [place] [address] Dr. Soila Pastor FIO2 [facility] Comment on above: Performed By: #### E RUR #### [facility] [address] [place] [address] Dr. Soila Pastor HCO3 (Bld) [Moles/Vol] 26.0 mmol/L Normal 22.0-26.0 [facility] Comment on above: Performed By: #### E RUR #### [facility] [address] [place] [address] Dr. Soila aPstor LPM [facility] Comment on above: Performed By: #### E RUR #### [facility] [address] [place] [address] Dr. Soila Pastor MINUTE VOLUME [facility] Comment on above: Performed By: #### E RUR #### [facility] [address] [place] [address] Dr. Soila Pastor Oxygen (Bld) [Partial pressure] 92.6 mm[Hg] Normal 80.0-100.0 [facility] Comment on above: Performed By: #### E RUR #### [facility] [address] [place] [address] Dr. Soila Pastor Oxygen saturation in Blood 97.0 % Normal 95.0-100.0 [facility] Comment on above: Performed By: #### E RUR #### [facility] [address] [place] [address] Dr. Soila Pastor PCO2 43.2 mmHg Normal 35.0-45.0 [facility] Comment on above: Performed By: #### E RUR #### [facility] [address] [place] [address] Dr. Soila Pastor PEEP [facility] Comment on above: Performed By: #### E RUR #### [facility] [address] [place] [address] Dr. Soila Pastor pH (Bld) 7.389 [pH] Normal 7.350-7.450 [facility] Comment on above: Performed By: #### E RUR #### [facility] [address] [place] [address] Dr. Soila Pastor PIP [facility] Comment on above: Performed By: #### E RUR #### [facility] [address] [place] [address] Dr. Soila Pastor PS [facility] Comment on above: Performed By: #### E RUR #### [facility] [address] [place] [address] Dr. Soila Pastor PUNCTURE SITE LR [facility] Comment on above: Performed By: #### E RUR #### [facility] [address] [place] [address] Dr. Soila Pastor [facility] Comment on above: Performed By: #### E RUR #### [facility] [address] [place] [address] Dr. Soila Pastor [facility] Comment on above: Performed By: #### E RUR #### [facility] [address] [place] [address] Dr. Soila Pastor [facility] Comment on above: Performed By: #### E RUR #### [facility] [address] [place] [address] Dr. Soila Pastor BNPon 10-14-2022 Natriuretic peptide B (Bld) [Mass/Vol] 432.0 pg/mL Normal <=1,800.0 [facility] Comment on above: Performed By: #### P OCGLUC #### [facility] [address] [place] [address] Dr. Soila Pastor CBC AUTO DIFFon 10-14-2022 BASO # 0.1 103/ul Normal 0.0-0.1 [facility] Comment on above: Performed By: #### P OCGLUC #### [facility] [address] [place] [address] Dr. Soila Pastor Basophils/100 WBC (Bld) 0.3 % Normal 0.2-2.0 [facility] Comment on above: Performed By: #### P OCGLUC #### [facility] [address] [place] [address] Dr. Soila Pastor EO # 0.3 103/ul Normal 0.0-0.7 [facility] Comment on above: Performed By: #### P OCGLUC #### [facility] [address] [place] [address] Dr. Soila Pastor Eosinophils/100 WBC (Bld) 1.7 % Normal 0.9-7.0 [facility] Comment on above: Performed By: #### P OCGLUC #### [facility] [address] [place] [address] Dr. Soila Pastor Erythrocyte distribution width (RBC) [Ratio] 13.5 % Normal 11.0-15.0 [facility] Comment on above: Performed By: #### P OCGLUC #### [facility] [address] [place] [address] Dr. Soila Pastor Hematocrit (Bld) [Volume fraction] 38.5 % Normal 36.0-48.0 [facility] Comment on above: Performed By: #### P OCGLUC #### [facility] [address] [place] [address] Dr. Soila Pastor Hemoglobin (Bld) [Mass/Vol] 12.2 g/dL Normal 12.0-16.0 [facility] Comment on above: Performed By: #### P OCGLUC #### [facility] [address] [place] [address] Dr. Soila Pastor IG # 0.06 10e3/ul Critically high 0.00-0.03 [facility] Comment on above: Performed By: #### P OCGLUC #### [facility] [address] [place] [address] Dr. Soila Pastor IG % 0.4 % Normal 0.0-0.5 [facility] Comment on above: Performed By: #### P OCGLUC #### [facility] [address] [place] [address] Dr. Soila Pastor LYMPH # 2.5 103/ul Normal 1.2-3.8 [facility] Comment on above: Performed By: #### P OCGLUC #### [facility] [address] [place] [address] Dr. Soila Pastor Lymphocytes/100 WBC (Bld) 17.2 % Critically low 20.5-60.0 [facility] Comment on above: Performed By: #### P OCGLUC #### [facility] [address] [place] [address] Dr. Soila Pastor MANUAL DIFF REQ NO Normal [facility] Comment on above: Performed By: #### P OCGLUC #### [facility] [address] [place] [address] Dr. Soila Pastor MCH (RBC) [Entitic mass] 30.0 pg Normal 26.7-34.0 [facility] Comment on above: Performed By: #### P OCGLUC #### [facility] [address] [place] [address] Dr. Soila Pastor MCHC (RBC) [Mass/Vol] 31.7 g/dL Normal 29.9-35.2 [facility] Comment on above: Performed By: #### P OCGLUC #### [facility] [address] [place] [address] Dr. Soila Pastor MCV (RBC) [Entitic vol] 94.8 fL Normal 81.0-99.0 [facility] Comment on above: Performed By: #### P OCGLUC #### [facility] [address] [place] [address] Dr. Soila Pastor MONO # 1.5 103/ul Critically high 0.3-0.8 [facility] Comment on above: Performed By: #### P OCGLUC #### [facility] [address] [place] [address] Dr. Soila Pastor Monocytes/100 WBC (Bld) 9.9 % Normal 1.7-12.0 [facility] Comment on above: Performed By: #### P OCGLUC #### [facility] [address] [place] [address] Dr. Soila Pastor NEUT # 10.3 103/ul Critically high 1.4-6.5 [facility] Comment on above: Performed By: #### P OCGLUC #### [facility] [address] [place] [address] Dr. Soila Pastor Neutrophils/100 WBC (Bld) 70.5 % Normal 43.0-75.0 [facility] Comment on above: Performed By: #### P OCGLUC #### [facility] [address] [place] [address] Dr. Soila Pastor Platelet mean volume (Bld) [Entitic vol] 11.3 fL Normal 9.5-13.5 [facility] Comment on above: Performed By: #### P OCGLUC #### [facility] [address] [place] [address] Dr. Soila Pastor PLT 151 103/ul Normal 150-450 [facility] Comment on above: Performed By: #### P OCGLUC #### [facility] [address] [address] [address] Soila Pastor RBC 4.06 106/ul Critically low 4.20-5.40 [facility] Comment on above: Performed By: #### P OCGLUC #### [facility] [address] [address] [address] Soila Pastor WBC 14.7 103/ul Critically high 4.0-11.0 [facility] Comment on above: Performed By: #### P OCGLUC #### [facility] [address] HEAD WO CONon [...] PAVEL SANCHEZ Date: 2022-10-14 20:13 Normal [facility] CULTURE BLOODon 10-14-2022 Microscopic examination of blood, culture Culture Observations: NO GROWTH AT 5 DAYS. Normal [facility] Comment on above: Performed By: #### P OCGLUC #### [facility] [address] [place] [address] Dr. Soila Pastor Microscopic examination of blood, culture Culture Observations: NO GROWTH AT 5 DAYS. Normal [facility] Comment on above: Performed By: #### P OCGLUC #### [facility] [address] [place] [address] Dr. Soila Pastor Covid-19 PCR (CVDTBH)on 09-21 SARS-CoV-2 (COVID-19) RNA JERALD+probe Ql (Unsp spec) Not detected Normal NOT DETECTED [facility] Comment on above: Result Comment: When [...] for this test is supported by the [place] of Health and Human Service's declaration that [...] used). Performed By: #### C VDTBH #### [facility] [address] [place] [address] Dr. Soila Pastor ER URINE PROFILEon 3 Bilirubin Ql (U) Negative Normal NEGATIVE [facility] Comment on above: Performed By: #### E RUR #### [facility] [address] [place] [address] Dr. Soila Pastor Clarity (U) CLEAR Normal CLEAR [facility] Comment on above: Performed By: #### E RUR #### [facility] [address] [place] [address] Dr. Soila Pastor Color (U) YELLOW Normal YELLOW [facility] Comment on above: Performed By: #### E RUR #### [facility] [address] [place] [address] Dr. Soila KIM A micrscopic examination will be performed if indicated. Normal [facility] Comment on above: Performed By: #### E RUR #### [facility] [address] [place] [address] Dr. Soila Pastor Glucose Ql (U) Negative Normal NEGATIVE [facility] Comment on above: Performed By: #### E RUR #### [facility] [address] [place] [address] Dr. Soila Pastor Hemoglobin Ql (U) Negative Normal NEGATIVE [facility] Comment on above: Performed By: #### E RUR #### [facility] [address] [place] [address] Dr. Soila Pastor Ketones Ql (U) TRACE Abnormal NEGATIVE [facility] Comment on above: Performed By: #### E RUR #### [facility] [address] [place] [address] Dr. Soila Pastor LEUKOCYTES Negative Normal NEGATIVE [facility] Comment on above: Performed By: #### E RUR #### [facility] [address] [place] [address] Dr. Soila Pastor Nitrite Ql (U) Negative Normal NEGATIVE [facility] Comment on above: Performed By: #### E RUR #### [facility] [address] [place] [address] Dr. Soila Pastor pH (U) 5.0 [pH] Normal 5-9 [facility] Comment on above: Performed By: #### E RUR #### [facility] [address] [place] [address] Dr. Soila Pastor SPEC GRAVITY 1.020 Normal 1.005-<=1.025 [facility] Comment on above: Performed By: #### E RUR #### [facility] [address] [place] [address] Dr. Soila Pastor UA PROTEIN Negative Normal NEGATIVE/ TRACE [facility] Comment on above: Performed By: #### E RUR #### [facility] [address] [place] [address] Dr. Soila Pastor UR MICRO IND NOT INDICATED Normal [facility] Comment on above: Performed By: #### E RUR #### [facility] [address] [place] [address] Dr. Soila Pastor Urobilinogen Qn (U) 1.0 {Betsy'U}/dL Normal 0.2 - 1. 0 [facility] Comment on above: Performed By: #### E RUR #### [facility] [address] [place] [address] Dr. Soila Pastor LACTATE/LACTIC ACIDon 2022 Lactate [Moles/Vol] 1.4 mmol/L Normal 0.4-2.0 [facility] Comment on above: Performed By: #### E RUR #### [facility] [address] [place] [address] Dr. Soila Pastor PH VENOUS BLOODon 10-14-2022 PCO2 VENOUS 47.6 mmHg Normal 40.0-52.0 [facility] Comment on above: Performed By: #### E RUR #### [facility] [address] [place] [address] Dr. Soila Pastor pH VENOUS 7.401 Normal 7.330-7.430 [facility] Comment on above: Performed By: #### E RUR #### [facility] [address] [place] [address] Dr. Soila Pastor PROF 14(COMP METB)on 023 Albumin [Mass/Vol] 3.2 g/dL Critically low 3.4-5.0 [facility] Comment on above: Performed By: #### P OCGLUC #### [facility] [address] [place] [address] Dr. Soila Pastor Albumin/Globulin [Mass ratio] 0.8 {ratio} Normal [facility] Comment on above: Performed By: #### P OCGLUC #### [facility] [address] [place] [address] Dr. Soila Pastor ALP [Catalytic activity/Vol] 85 U/L Normal 46-116 [facility] Comment on above: Performed By: #### P OCGLUC #### [facility] [address] [address] [address] Soila Pastor ALT [Catalytic activity/Vol] 13 U/L Critically low 14-59 [facility] Comment on above: Performed By: #### P OCGLUC #### [facility] [address] [address] [address] Soila Pastor Anion gap [Moles/Vol] 9.5 mmol/L Normal [facility] Comment on above: Performed By: #### P OCGLUC #### [facility] [address] [address] [address] Soila Pastor AST [Catalytic activity/Vol] 12 U/L Critically low 15-37 [facility] Comment on above: Performed By: #### P OCGLUC #### [facility] [address] [address] [address] Soila Pastor Bilirubin [Mass/Vol] 0.5 mg/dL Normal 0.2-1.0 [facility] Comment on above: Performed By: #### P OCGLUC #### [facility] [address] [address] [address] Soila Pastor Calcium [Mass/Vol] 9.0 mg/dL Normal 8.5-10.1 [facility] Comment on above: Performed By: #### P OCGLUC #### [facility] [address] [address] [address] Soila Pastor Chloride [Moles/Vol] 99 mmol/L Normal 98-107 [facility] Comment on above: Performed By: #### P OCGLUC #### [facility] [address] [address] [address] Soila Pastor CO2 [Moles/Vol] 32.0 mmol/L Normal 21.0-32.0 [facility] Comment on above: Performed By: #### P OCGLUC #### [facility] [address] [address] [address] Soila Pastor Creatinine [Mass/Vol] 1.55 mg/dL Critically high 0.55-1.02 [facility] Comment on above: Performed By: #### P OCGLUC #### [facility] [address] [address] [address] Soila Pastor EGFR-AF COLOMBIAN 39 mL/min/1.73m2 Critically low >=60 [facility] Comment on above: Performed By: #### P OCGLUC #### [facility] [address] [address] [address] Soila Pastor EGFR-NON AF COLOMBIAN 32 mL/min/1.73m2 Critically low >=60 [facility] Comment on above: Performed By: #### P OCGLUC #### [facility] [address] [address] [address] Soila Pastor Globulin (S) [Mass/Vol] 3.8 g/dL Normal [facility] Comment on above: Performed By: #### P OCGLUC #### [facility] [address] [address] [address] Soila Pastor Glucose [Mass/Vol] 125 mg/dL Critically high 74-106 [facility] Comment on above: Performed By: #### P OCGLUC #### [facility] [address] [address] [address] Soila Pastor Potassium [Moles/Vol] 3.5 mmol/L Normal 3.5-5.1 [facility] Comment on above: Performed By: #### P OCGLUC #### [facility] [address] [address] [address] Soila Pastor Protein [Mass/Vol] 7.0 g/dL Normal 6.4-8.2 [facility] Comment on above: Performed By: #### P OCGLUC #### [facility] [address] [address] [address] Soila Pastor Sodium [Moles/Vol] 137 mmol/L Normal 136-145 [facility] Comment on above: Performed By: #### P OCGLUC #### [facility] [address] [address] [address] Soila Pastor Urea nitrogen [Mass/Vol] 21.0 mg/dL Critically high 7.0-18.0 [facility] Comment on above: Performed By: #### P OCGLUC #### [facility] [address] [place] [address] Dr. Soila Pastor Urea nitrogen/Creatinine [Mass ratio] 13.5 mg/mg Normal [facility] Comment on above: Performed By: #### P OCGLUC #### [facility] [address] [place] [address] Dr. Soila Pastor PROTIMEon 10-14-2022 INR Coag (PPP) [Relative time] 1.01 {INR} Normal [facility] Comment on above: Performed By: #### C VDTBH #### [facility] [address] [place] [address] Dr. Soila Pastor INR GUIDELINES SEE BELOW Normal [facility] Comment on above: Result Comment: [place] RED INR: 2.0 - 3.0 CONDITIONS NOT LISTED BELOW 2.5 - 3.5 FOR PROSTHETIC HEART VALVE REPLACEMENT 2.5 - 3.5 RECURRENT THROMBOSIS Performed By: #### C VDTBH #### [facility] [address] [place] [address] Dr. Soila Pastor PT Coag (PPP) [Time] 10.7 s Normal 9.0-11.6 [facility] Comment on above: Performed By: #### C VDTBH #### [facility] [address] [place] [address] Dr. Soila Pastor PTTon 10-14-2022 aPTT Coag (Bld) [Time] 31.5 s Normal 22.3-36.2 [facility] Comment on above: Performed By: #### E RUR #### [facility] [address] [place] [address] Dr. Soila Pastor TROPONIN, HIGH SENSITIVITYon 10-14-2022 HSTROP 8.8 pg/mL Normal 4.0-51.3 [facility] Comment on above: Result Comment: CUT- OFF POINTS HAVE BEEN ESTABLISHED BASED ON THE FOURTH UNIVERSAL DEFINITIONS OF MYOCARDIAL INFARCTION. THE UPPER REFERENCE LIMIT (URL) OF TROPONIN, DEFINED THE 99TH PERCENTILE OF cTnI DISTRIBUTION IN A REFERENCE POPULATION, HAS BEEN CONFIRMED THE DECISION THRESHOLD FOR ME DIAGNOSIS. Performed By: #### P OCGLUC #### [facility] [address] [place], [place] [address] Dr. Soila Pastor TSHon 10-14-2022 TSH 1.240 uIU/mL Normal 0.358-3.740 [facility] Comment on above: Performed By: #### P OCGLUC #### [facility] [address] [place], [place] [address] Dr. Soila Pastor XR ANKLE LT MIN 3 Von 2022 XR ANKLE LT MIN 3 V EXAM: XR ANKLE LT ME N 3 V HISTORY: Unspecified fall COMPARISON: None. TECHNIQUE: 3 view study FINDINGS: Overall bony architecture is normal. Ankle mortise relationships are intact. A plantar calcaneal enthesophyte is noted. Soft tissue swelling about the ankle is noted. IMPRESSION: No acute bone or joint abnormality at the ankle. Electronically authenticated by: Selin MCCALL Date: 2022-10-14 20:16 Normal [facility] XR CHEST 1 Von 10-14-2022 XR [...] KAELA HOOKER Date: 2022-10-14 20:15 Normal [facility] XR CHEST 2 Von 10-14-2022 XR [...] Suggestion of COPD. Electronically authenticated by: KARYN Lombardi: 2022-10-14 11:33 Normal [facility] CT CSPINE WO CONon CT CSPINE WO [...] REED LYNNE Date: 2022-08-24 18:47 Normal [facility] CT HEAD WO CONon 08-24-2022 CT [...] by: AMAYA FRENCH Date: 2022-08-24 18:57 Normal [facility] XR KNEE RT 4V or >on 023 [...] VIKY WILLIAMSON Date: 2022-08-24 18:59 Normal [facility] US THYROIDon 05-29-2022 US THYROID EXAMINATION: [...] left thyroid nodules, grossly stable TI-RADS: The [employer] TI-RADS committee's white paper recommendations for thyroid lesions classified as TR4 (moderately suspicious) are listed below: > 1.0 cm. Follow-up ultrasound in 1, 2, 3, and 5 years. > 1.5 cm. FNA. J. Am Nikunj Radiol 2017;14:587-595. Electronically authenticated by: CARLOS SOOD Date: 2022-05-29 11:51 Normal [facility] Carotid Artery Dupl ex Ultrasounon 04-14-2022 [facility] Carotid Artery Duplex Ultrasoun [address], [address], [place] [address] Vascular Lab Report Carotid Artery Duplex Ultrasound Patient Name: ELGIN GARZA Reading Physician: [id number] Martha Navas MD, [facility] Study Date: 04/14/2022 Referring XOCHITL SMYTH Physician: MRN/PID: [id number] PCP: Yossi Landers Accession/Order#: [id number] CC Report to: Date of : 1940 Technologist: Eleanor Marcus RDCS, T Gender: F Technologist 2: Admission Status: Outpatient Location Performed: [facility] Diagnosis/ICD: 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 Indication: CAD, Cardiomyopathy, Dyspnea, Obesity, COPD, Diabetes, HTN, Hyperlipidemia, Former Smoker Procedure/CPT: 10758 Cerebrovascular Carotid Duplex scan complete-56492 CONCLUSIONS: Right Carotid: Findings are consistent with [...] cm/s Right Left ICA/CCA Ratio 1.5 1.9 15180 Martha Navas MD, FACC Final Normal [facility] LAB Carotid Artery Dupl ex Ultrasoundon 04-14-2022 US.doppler Carotid arteries [facility] [address] [place] Work Phone: Height or Weight NOT Doneon 02-26-2022 Fall risk assessment a) No falls within the last year [facility] [employer] [address] [place] Work Phone: Tobacco use status CPHS b) No [facility] [place] Work Phone: Office Visit (Cardiology)on [...] Status:Hold For - Scheduling,Retrospect julian Authorization; Requested for:[id number]; Laterality : Bilateral SocHx: Former smoker Tobacco Use Screening; Status:Complete; Done: [id number] Patient Instructions Please bring all medicines, vitamins, [...] 4-5 servings (more content not included)... Normal [facility] US THYROIDon 01-08-2022 US THYROID EXAMINATION: US [...] one year is recommended. TR 4: The [employer] TI-RADS committee's white paper recommendations for thyroid lesions classified as TR4 (moderately suspicious) are listed below: > 1.0 cm. Follow-up ultrasound in 1, 2, 3, and 5 years. > 1.5 cm. FNA. J. Am Nikunj Radiol 2017;14:587-595. Electronically authenticated by: AMAYA GRAMAJO Date: 2022-01-08 08:44 Normal [facility] CREATININEon 12-30-2021 Creatinine [Mass/Vol] 1.03 mg/dL Critically high 0.55-1.02 [facility] Comment on above: Performed By: #### P OCGLUC #### [facility] [address] [address] [address] Soila Pastor EGFR-AF COLOMBIAN >60 Normal >=60 [facility] Comment on above: Performed By: #### P OCGLUC #### [facility] [address] [address] [address] Soila Pastor EGFR-NON AF COLOMBIAN 52 mL/min/1.73m2 Critically low >=60 [facility] Comment on above: Performed By: #### P OCGLUC #### [facility] [address] NECK ST W [...] by: CARLOS SOOD Date: 2021-12-30 21:32 Normal [facility] XR MODIFIED BARIUM SWALLOWon 12-05-2021 XR [...] by: AMAYA GRAMAJO Date: 2021-12-05 17:48 Normal [facility] Echocardiogramon 11-11-[address] [address] TRANSTHORACIC ECHOCARDIOGRAM REPORT Patient Name: ELGIN GARZA Reading Physician: [id number] Xochitl NORWOOD MD Study Date: 11/11/2021 Referring Physician: Blanca SMYTH MRN/PID: [id number] PCP: Yossi Landers Accession/Order#: [id number] Department Location: [facility] Date of : 1940 Fellow: Gender: F Nurse: Admit Date: Oil Exploration Engineer: Eleanor Marcus RDCS, RVT Height: 162.56 cm CC Report to: Weight: 94.80 kg Study Type: Echocardiogram BSA: 1.99 m2 Blood Pressure: 124 /62 mmHg Diagnosis/ICD: I42.9-Cardiomyopathy, unspecified; R06.00-Dyspnea, unspecified Indication: CAD, HTN, Hyperlipidemia, Former Smoker, Bilateral Carotid Stenosis, Obesity Procedure/CPT: Echo Complete w Full Doppler-74493 Study Detail: The following Echo studies were [...] 0.9 m/s (0.6-0.9m/s) PV Max P.3 mmHg 43802 Xochitl Smyth MD Electronically signed on 11/13/2021 at 4:32:53 PM Final Normal [facility] Office Visit (Cardiology)on 10-15-2021 Follow-up visit Diagnoses/Problems [...] Patient Instructions By signing my name below, IAlla Mary Beth Glass,Miko, attest that this documentation has been prepared [...] up in 4-5 months Retrieve records from [facility] Chief Complaint overdue. ELGIN NORWOOD is [...] EVERY DAY (more content not included)... Normal [facility] Tobacco Screening.on 022 Adult depression screening assessment No [facility] [address] [place] Work Phone: Fall risk assessment a) No falls within the last year [facility] [employer] [address] [place] Work Phone: Tobacco use status CPHS b) No [facility] [address] DO Work Phone: US thyroidon 02-15-2019 thyroid [facility] Main [place] [address] [place] [address] Ultrasound Report Signed Patient: Elgin Norwood MR#: [id number] : 1940 Acct:[id number] Age/Sex: 78 / F ADM Date: 02/15/19 Loc: Room: Type: [facility] Attending Dr: Araceli Ojeda Jr, MD [...] Gupta Jr., M.D.02/15/2019 4:06 PM Dictation Location: [id number] Tech: Lyudmila Vanessa Transcribed By: SHANTELLE 02/15/19 1606 Dictated By: Nabeel Gupta Jr, MD 02/15/19 1554 Signed By: 02/15/19 1606 [facility] thyroidon 08-31-2018 thyroid [facility] [place] [address] Ultrasound Report Signed Patient: Elgin Norwood MR#: [id number] : 1940 Acct:[id number] Age/Sex: 78 / F ADM Date: 08/31/18 Loc: Room: Type: [facility] Attending Dr: Araceli Ojeda Jr, MD [...] and 5 are recommended according to the [employer] College of radiology thyroid imaging and reporting data system. Impression dictated by: Karyn Nogueira M.D.08/31/2018 1:49 PM Dictation Location: [facility] Tech: Leigh Syed Transcribed By: SHANTELLE 08/31/18 1349 Dictated By: Karyn Nogueira II, MD 08/31/18 1342 Signed By: 08/31/18 1349 [facility] Vital Signs Date Time Vital Sign Value Performing Clinician Facility 02-26-2022 15:04-0400 Body height 162.56 cm Xochitl Smyth MD Work Phone: [facility] 250 DO Work Phone: 02-26-2022 15:04-0400 Body mass index (BMI) [Ratio] Medical Reason Not Done Xochitl Smyth MD Work Phone: [facility] 250 DO Work Phone: 02-26-2022 15:04-0400 Diastolic blood pressure 64 mm[Hg] Xochitl Smyth MD Work Phone: [facility] 250 DO Work Phone: 02-26-2022 15:04-0400 Heart rate 72 /min Xochitl Smyth MD Work Phone: [facility] [address] DO Work Phone: 02-26-2022 15:04-0400 Systolic blood pressure 120 mm[Hg] Xochitl Smyth MD Work Phone: [facility] [address] DO Work Phone: 10-15-2021 12:59-0400 Body height 162.56 cm Xochitl Smyth MD Work Phone: [facility] [address] DO Work Phone: 10-15-2021 12:59-0400 Body mass index (BMI) [Ratio] 35.87 kg/m2 Xochitl Smyth MD Work Phone: [facility] [address] DO Work Phone: 10-15-2021 12:59-0400 Body surface area Derived from formula 1.99 m2 Xochitl Smyth MD Work Phone: [facility] [place] [address] DO Work Phone: 10-15-2021 12:59-0400 Body weight 94.8 kg Xochitl Smyth MD Work Phone: [facility] [facility] [address] DO Work Phone: 10-15-2021 12:59-0400 Diastolic blood pressure 68 mm[Hg] Xochitl Smyth MD Work Phone: [facility] [address] DO Work Phone: 10-15-2021 12:59-0400 Heart rate 66 /min Xochitl Smyth MD Work Phone: [facility] [facility] [address] DO Work Phone: 10-15-2021 12:59-0400 Systolic blood pressure 124 mm[Hg] Xochitl Smyth MD Work Phone: [facility] DO Work Phone: Encounters Encounter Date Encounter Type Care Provider Facility Start: 11-23-2023 End: 11-23-2023 ambulatory JOSE EDUARDO MASON Not Available Start: 11-02-2023 End: 11-02-2023 ambulatory YOSSI LANDERS Not Available Start: 10-26-2023 End: 10-26-2023 ambulatory ARACELI PACEMIS Not Available Start: 10-12-2023 End: 10-12-2023 ambulatory YOSSI LANDERS Not Available Start: 08-10-2023 End: 08-10-2023 ambulatory YOSSI LANDERS Not Available Start: 08-03-2023 Refill Lara Thursday L PN Work Phone: [facility] Comment on above: Degenerative lumbar spinal stenosis; Depression with anxiety Start: 07-27-2023 Refill Yossi Landers MD Work Phone: [facility] Comment on above: Essential hypertensi on (CMS/HCC) Start: 07-20-2023 End: 07-20-2023 ambulatory ARACELI Arzola TIMMIS Not Available Start: 05-11-2023 End: 05-11-2023 ambulatory YOSSI Dori JORDAN Not Available Start: 10-15-2022 End: 10-16-2022 Evaluation and management of inpatient TANYA CARMEN . Facility:[facility] Start: 10-14-2022 End: 10-15-2022 ambulatory KARYN WASHINGTON Facility:[facility] Start: 08-24-2022 End: 08-24-2022 ambulatory LAYNE Amadeo ALLISONJEAN Facility:[facility] Start: 05-29-2022 End: 05-30-2022 ambulatory ARACELI JOYCES Facility:[facility] Start: 04-14-2022 Patient encounter procedure [id number] [facility] ULTRASOUND 01 Work Phone: [facility] [address] [place] Work Phone: Start: 04-14-[address] Xochitl Smyth Facility:[id number] Start: 02-26-2022 Office outpatient vi sit 25 minutes Xochitl Smyth MD Work Phone: [facility] 250 DO Work Phone: Start: 01-07-2022 End: 01-08-2022 ambulatory ARACELI OJEDA Facility:[facility] Start: 12-30-2021 End: 12-31-[address] YOSSI LANDERS Facility:[facility] Start: 12-05-2021 End: 12-06-[address] YOSSI LANDERS Facility:[facility] Start: 11-11-[address] Xochitl Smyth Facility:9844 Start: 10-15-2021 Office outpatient vi sit 25 minutes Xochitl Smyth MD Work Phone: [facility] 250 DO Work Phone: Procedures Date Procedure Procedure Detail Performing Clinician Colonoscopy Xochitl banerjee MD Work Phone: Hernia repair Xochitl patel MD Work Phone: Hysterectomy Xochitl banerjee MD Work Phone: Procedure on back Xochitl rodriguez MD Work Phone: Surgical procedure Xochitl amador MD Work Phone: Plan of Treatment Date Care Activity Detail Author Start: 02-10-2024 Medicare Annual Wellness (AWV) Medicare Annual Wellness (AWV) [place] [facility] Start: 08-10-2023 End: 08-10-2023 Patient encounter procedure [facility] Start: 05-12-2023 Hemoglobin A1c measurement Diabetes: Hemoglobin A1C [facility] Start: 02-20-2023 Influenza vaccination Influenza Vaccine (#1) [facility] Start: 08-12-2022 FUV, Provider: Xochitl Smyth, Status: Pen, Time: 2:20 PM FUV, Provider: Xochitl Smyth, Status: Pen, Time: 2:20 PM [facility] 250 DO Work Phone: Start: 04-14-2022 CAROTID, Provider: SEAN STALLWORTHI ULTRASOUND 01,[id number], Status: Pen, Time: 10:45 AM CAROTID, Provider: SEAN STALLWORTHI ULTRASOUND 01,[id number], Status: Pen, Time: 10:45 AM [facility] 250 DO Work Phone: Start: 02-26-2022 FUV, Provider: Xochitl Smyth, Status: Pen, Time: 2:40 PM FUV, Provider: Xochitl Smyth, Status: Pen, Time: 2:40 PM [facility] 250 DO Work Phone: Start: 11-11-2021 ECHO, Provider: SEAN ARTIS ULTRASOUND 01,[id number], Status: Pen, Time: 10:45 AM ECHO, Provider: SEAN ARTIS ULTRASOUND 01,[id number], Status: Pen, Time: 10:45 AM [facility] 250 DO Work Phone: Start: 07-30-2020 Glaucoma screening Diabetes: Retinopathy Screening [facility] Start: 06-17-2018 Pneumococcal Vaccine: 65+ Years (2 - PPSV23 or PCV20) Pneumococcal Vaccine: 65+ Years (2 - PPSV23 or PCV20) [facility] Immunizations Immunization Date Immunization Notes Care Provider Sarah cruz 09-16-2020 Pfizer-BioNTech COVID-19 Vacc 30 MCG/0.3ML Intramuscular Suspension Xochitl Smyth MD Work Phone: [facility] 250 DO Work Phone: 08-25-2020 Pfizer-BioNTech COVID-19 Vacc 30 MCG/0.3ML Intramuscular Suspension Xochitl Smyth MD Work Phone: [place] [address] DO Work Phone: 05-07-2018 pneumococcal conjuga te vaccine, 13 valent Xochitl Smyth MD Work Phone: [place] [address] DO Work Phone: 04-22-2018 pneumococcal conjuga te vaccine, 13 valent Xochitl Smyth MD Work Phone: [facility] 11-28-2015 zoster vaccine, darren Smyth MD Work Phone: [facility] 01-10-2015 zoster vaccinedarren MD Work Phone: [facility] Payers Date Payer Category Payer Medicare [employer] MEDICARE ADVANTAGE [employer] MEDICARE [id number] 2022-Present [address] [address] [place] [address] [id number] 2022 Medicare [id number] 1959 Medicaid [id number] 1959 Medicare [id number] 1940 Unknown [id number] 1942 Unknown [id number] [id number] 1942 Unknown [id number] 2.16.840.1.288316.3.579.2.593 1942 Unknown [id number] 2.16.840.1.057317.3.579.2.593 1942 Unknown [id number] 2.16.840.1.789883.3.579.2.593 1942 Unknown [id number] 2.16.840.1.022072.3.579.2.593 1942 Unknown [id number] 2.16.840.1.945743.3.579.2.593 1942 Unknown [id number] 2.16.840.1.914573.3.579.2.593 1942 Unknown [id number] 2.16.840.1.059161.3.579.2.593 1942 Unknown [id number] 2.16.840.1.242104.3.579.2.1259 1942 Unknown [id number] 2.16.840.1.808878.3.579.2.1259 1942 Unknown [id number] 2.16.840.1.609757.3.579.2.1259 1942 Unknown [id number] 2.16.840.1.094388.3.579.2.1259 1942 Unknown [id number] 2.16.840.1.689462.3.579.2.1259 1942 Unknown [id number] 2.16.840.1.711926.3.579.2.1259 1942 Unknown [id number] 2.16.840.1.036242.3.579.2.1259 Unknown Social History Date Type Detail Facility Start: 11-12-2022 End: 02-09-2023 No alcohol use No alcohol use [facility] Comment on above: 4-5 servings daily; quit 1995, 2ppd; Start: 11-20-2022 Tobacco smoking stat [facility] Ex-smoker [facility] Work Phone: End: 10-27-2012 [...] Not at all [facility] (I/We) worried whe er (my/our) food would run out before (I/we) got money to buy more. Never true [facility] In the past 12 month s, has lack of transportation kept you from medical appointments or from getting medications? No [facility] Start: 06-07-2023 Alcohol Comment caffeine intak e: 2-3 cups per day of coffee [facility] Start: 1940 Sex Assigned At Not on file [facility] Medical Equipment Procedure Code Equipment Code Equipment Origin al Text Equipment Identifier Dates 1 each by Other route 1 (one) time each day at the same time. [id number] USE 1 LANCET TO TEST BLOOD SUGAR ONCE DAILY [id number] Start: 11-05-2022 Telephone encounter Note 07-27-2023 Telephone Encounter - PHILIP Magallanes - 07/27/2023 8:00 AM EST Note Date & Type Note Facility 07-27-2023 Telephone encount er Note sent [facility] Note 07-27-2023 Telephone Encounter - PHILIP Magallanes - 07/27/2023 8:00 AM EST Note Date & Type Note Facility 07-27-2023 Miscellaneous Notes Formattin g of this note might be different from the original. sent documented in this encounter [facility] History of Present illness Narrative 11-02-2020 Note [...] her back in 3 to 4 months [facility] Work Phone: History of Present illness [...] her back in 3 to 4 months [facility] 250 DO Work Phone: Evaluation note Note Date & Type Note Facility Evaluation note Diagnosis Essential hypertension (CMS/HCC) Unspecified essential hypertension documented in this encounter [facility] Evaluation note Note Date & Type Note Facility Evaluation note Diagnosis Degenerative lumbar spinal stenosis Spinal stenosis of lumbar region Depression with anxiety Dysthymic disorder documented in this encounter [facility] History of Present illness Narrative Note Date [...] in6. We will repeat her carotid Doppler [facility] 250 DO Work Phone: History of Present illness Narrative [...] in6. We will repeat her carotid Doppler [facility] Work Phone: Summary Purpose Family History No Family History Records FoundUnknown Family Member Name Dates Details Family history [...] section and content) DATE CREATED AUTHOR 02/16/2019 [facility] DATE CREATED AUTHOR AUTHOR'S ORGANIZ ATION 02/27/2022 [facility] DATE CREATED AUTHOR AUTHOR'S ORGANIZ ATION 04/15/2022 [facility] DATE CREATED AUTHOR AUTHOR'S ORGANIZ ATION 10/25/2022 [facility] DATE CREATED AUTHOR AUTHOR'S ORGANIZ ATION 11/24/2023 [facility] EPIC Reason for Visit (unrecogniz ed section and content) Reason Comments Med Refill Reason Onset Date Comments Med Refill 08/03/2023 Care Teams (unrecognized sec tion and content) Senior Network Security Engineer Relationship Specialty Start Date End Date Yossi Landers MD [address] [facility] [address] [place] [address] PCP - General Internal Medicine 11/03/22 Yossi Landers MD [address] [facility] [address] [place] [address] PCP - Human 11/20/22 Senior Network Security Engineer Relationship Specialty Start Date End Date Yossi Landers MD [address] [facility] [address] [place] [address] PCP - General Internal Medicine 11/03/22 Yossi Landers MD [address] [facility] [address] [place] [address] PCP - [employer] 11/20/22 FOR RECORDS PERTAINING [...] BE BASED ON THE PRIMARY CLINICAL RECORDS. [employer] provides no warranty or guarantee of the accuracy or completeness of information in this document.
[2023-11-27 11:02] LABS: Basophils Percent Auto 0.4 % (0.2-2.0); Eosinophils Absolute Auto 0.2 10^3/uL (0.0-0.7); Eosinophils Percent Auto 1.9 % (0.9-7.0); Hemoglobin 11.9 g/dL (12.0-16.0); Immature Granulocytes Abs Auto 0.02 10^3/uL (0.00-0.03); Immature Granulocytes Pct Auto 0.2 % (0.0-0.5); Lymphocytes Percent Auto 20.9 % (20.5-60.0); Mean Corpuscular HGB Conc 32.2 g/dL (29.9-35.2); Mean Corpuscular Volume 93.2 fL (81.0-99.0); Mean Platelet Volume 11.3 fL (9.5-13.5); Monocytes Absolute Auto 0.7 10^3/uL (0.3-0.8); Monocytes Percent Auto 7.6 % (1.7-12.0); Neutrophils Absolute Auto 6.5 10^3/uL (1.4-6.5); Platelet Count 173 10^3/uL (150-450); Red Blood Count 3.97 10^6/uL (4.20-5.40); Red Cell Distribution Width 14.6 % (11.0-15.0); White Blood Count 9.4 10^3/uL (4.0-11.0)
[2023-11-27 11:08] LABS: Bilirubin Urine NEGATIVE (NEGATIVE); Blood Urine NEGATIVE (NEGATIVE); Clarity Urine CLEAR (CLEAR); Color Urine YELLOW (YELLOW); Glucose Urine UA NEGATIVE (NEGATIVE); Ketones Urine NEGATIVE (NEGATIVE); Leukocyte Esterase Urine NEGATIVE (NEGATIVE); Nitrite Urine NEGATIVE (NEGATIVE); Protein Urine NEGATIVE (NEG/TRACE)
--- NOTE | 2023-11-27 11:09 | CT_ITS ---
[address] [address] Patient Name: ELGIN NORWOOD MRN: [id number] date: 1940 Sex: F Assigned Patient Location: ER Current Patient Location: ER Accession/Order Number: [id number] Exam Date: 11/27/2023 12:30 Report Date: 11/27/2023 14:18 At the request of: STARR MORLEY Procedure: CT abdomen pelvis w con EXAMINATION: CT abdomen pelvis w con HISTORY: Diffuse abdominal pain, hx o benign mass removed, COMPARISON: CT abdomen pelvis 08/02/2023 TECHNIQUE: Axial, Coronal, and Sagittal images were obtained without and/or with IV contrast as indicated by examination type. Dose reduction techniques were achieved by using automated exposure control and/or adjustment of mA and/or kV according to patient size and/or use of iterative reconstruction technique. FINDINGS: LUNG BASES: No visible pulmonary or pleural disease. LIVER: No enlargement, atrophy, suspicious density, or significant focal lesion. BILIARY: Numerous tiny granular size stones within noninflamed gallbladder. PANCREAS: No lesion, fluid collection, or abnormal duct dilatation. SPLEEN: No enlargement or focal lesion. ADRENALS: No mass or enlargement. KIDNEYS: No mass, obstruction, or calcification. BOWEL/MESENTERY: Prior gastric surgery. Nondistended fluid-filled loops of small bowel. Fluid-filled cecum or proximal ascending colon. Normal stool within distal colon. Within mid-distal sigmoid colon is a 3.1 cm long segment of circumferential wall thickening. No abnormal dilation of bowel proximal to this segment. AORTA/VASCULAR: Marked atherosclerotic disease. Patent endovascular stent within left common iliac artery. RETROPERITONEUM: No mass or adenopathy. LYMPH NODES: No adenopathy. URINARY BLADDER: No visible focal wall thickening, lesion, or calculus. PELVIC ORGANS: Hysterectomy. ABDOMINAL WALL: Eventration of anterior abdominal wall at site of prior surgery or prior hernia repair. No hernia sac. BONES: No bony lesion or fracture. L5-S1 marked degenerative disc disease. OTHER: Negative. CT/CT abdomen pelvis w con IMPRESSION: 1. Cholelithiasis. 2. Prior gastric surgery without evidence of bowel obstruction. 3. Fluid-filled loops of small bowel and cecum without abnormal dilation or appreciable inflammatory changes. 4. Circumferential wall thickening of a 3.1; segment of distal sigmoid colon; mass versus peristalsis. Follow-up recommended. Electronically authenticated by: AMAYA GRAMAJO Date: 11/27/2023 14:18
--- NOTE | 2023-11-27 11:09 | XR_ITS ---
The [address] [address] Patient Name: ELGIN NORWOOD MRN: [id number] date: 1940 Sex: F Assigned Patient Location: ER Current Patient Location: ER Accession/Order Number: [id number] Exam Date: 11/27/2023 12:30 Report Date: 11/27/2023 13:11 At the request of: STARR MORLEY Procedure: XR chest 1V EXAMINATION: XR chest 1V HISTORY: Shortness of breath COMPARISON: Left ribs with chest x-ray 11/19/2023, 10/14/2022 FINDINGS: LUNGS: Chronic elevation left hemidiaphragm. Lungs are otherwise well-expanded and clear. VASCULATURE: No increased pulmonary vasculature. PLEURA: No pneumothorax, effusion, or pleural thickening. CARDIAC: No cardiomegaly or cardiac silhouette abnormality. MEDIASTINUM: No visible mass or adenopathy. BONES: No fracture or visible bone lesion. OTHER: Negative. XR/XR chest 1V IMPRESSION: 1. No acute cardiopulmonary process. 2. Stable, chronic mild elevation of the left hemidiaphragm. Electronically authenticated by: AMAYA GRAMAJO Date: 11/27/2023 13:11
--- NOTE | 2023-11-27 11:13 | ED_ITS ---
HPI HPI - General Adult General Chief complaint: Abdominal Pain Stated complaint: UPPER ABDOMINAL PAIN Time Seen by Provider: 11/27/23 10:39 Source: patient Mode of arrival: ambulance Limitations: no limitations History of Present Illness HPI narrative: Patient is a 83-year-old female who is presenting to the ER today with chief complaint shortness of breath and patient has a history of CHF. Patient's anthropology department chair is Dr. Smyth. She has not seen her anthropology department chair in a long time. Patient's PCP is Dr. Pyle. Patient states she is been having some abdominal discomfort for the past few days. Patient states she has not urinated in approximate 24 hours. Patient also has not been drinking enough fluids as well. Patient has no fever or chills. No headache. No neck pain. Patient has no chest pain, tightness or heaviness. Patient lives at home by herself. Patient uses a cane and a walker. 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 Patient does not have any new significant swelling to her lower extremities today compared to normal. No other acute complaints. Patient came in by EMS. Patient does have increased respiratory rate. She is not hypoxic. Not febrile. All systems are negative except as noted/marked. All systems reviewed and otherwise negative. Nurses note and vital signs reviewed and patient is not hypoxic. General: The patient appears minimal distress, increased respiratory rate, patient looks dry and uncomfortable. Patient is resting uncomfortably on cart. Patient is not toxic, lethargic, or listless Skin: Warm, dry, no pallor noted. There is no rash noted. No petechiae, purpura. Head: Normocephalic, atraumatic. Eye: Normal conjunctiva, no drainage, EOMI. PERRL Ears, Nose, Mouth, and Throat: oral mucosa is very dry. Ice chips were given. Nares patent. Mouth without vesicles. Cardiovascular: Regular Rate and Rhythm, no murmur, gallop, rub Respiratory: Patient is in minimal distress with increased respiratory rate, patient does feel short of breath by admission,, no accessory muscle use, lungs are clear to middle and upper lobes ; auscultation, no wheezing, no rhonchi, mild crackles bases. Increased respiratory rate Back: non-tender, no CVA tenderness bilaterally to percussion. No CT LS midline pain GI: Obese, bowel sounds x 4, no flank pain bilateral, mild suprapubic tenderness to palpation; mild diffuse tenderness to palpation, no masses appreciated. No rebound, guarding, or rigidity noted. No distention Musculoskeletal: Patient has full range of motion of all of the extremities, no motor, sensory, or focal neurological deficits Neurological: A&O x4, normal speech Psychiatric: Cooperative Related Data Home Medications ?Medication ?Instructions ?Recorded ?Confirmed alprazolam 0.25 mg tablet 0.25 mg PO BID PRN anxiety 08/02/23 08/03/23 aspirin 81 mg chewable tablet 81 mg PO DAILY 08/02/23 08/02/23 (Dalton Chewable Low Dose Aspirin) atorvastatin 40 mg tablet 40 mg PO DAILY 08/02/23 08/02/23 brexpiprazole 2 mg tablet (Rexulti) 2 mg PO DAILY 08/02/23 08/02/23 bupropion HCl (smoking deter) 150 150 mg PO BID 08/02/23 08/03/23 mg tablet,12 hr sustained-release(smoking deterrent) carvedilol 12.5 mg tablet 12.5 mg PO Q12H 08/02/23 08/02/23 duloxetine 60 mg capsule,delayed 60 mg PO DAILY 08/02/23 08/02/23 release furosemide 40 mg tablet 40 mg PO DAILY 08/02/23 08/02/23 gabapentin 100 mg capsule 200 mg PO Q12H 08/02/23 08/02/23 lisinopril 5 mg tablet 5 mg PO DAILY 08/02/23 08/03/23 loratadine 10 mg tablet 10 mg PO Q24H 08/02/23 08/02/23 fluticasone 250 mcg-salmeterol 50 1 inh inhalation Q12H PRN 08/03/23 08/03/23 mcg/dose blistr powdr for shortness of breath or wheezing inhalation hydrocodone 7.5 mg-acetaminophen 1 tab PO Q6H PRN severe pain 08/03/23 08/03/23 325 mg tablet (scale score 7-10) levothyroxine 100 mcg tablet 100 mcg PO .ACB 08/03/23 08/03/23 omeprazole 40 mg capsule,delayed 40 mg PO .ACB 08/03/23 08/03/23 release Previous Rx's ?Medication ?Instructions ?Recorded docusate sodium 100 mg capsule 100 mg PO BID #60 caps 08/03/23 (Colace) Allergies Allergy/AdvReac Type Severity Reaction Status Date / Time naproxen [From Aleve] Allergy Intermediate Verified 10/29/23 12:05 Opioid HPI Opioid Management Most Recent Opioid Data: Last Pain Scale 0 08/03/23 11:20 Last Pain Intensity 0 08/03/23 11:20 PFSH PFSH Medical History (Updated 11/27/23 @ 14:36 by Josh Payne MD) Hypothyroidism ?E03.9 - Hypothyroidism, unspecified (ICD-10) HLD (hyperlipidemia) ?E78.5 - Hyperlipidemia, unspecified (ICD-10) HTN (hypertension) ?I10 - Essential (primary) hypertension (ICD-10) Insufficient home care support ?Z74.2 - Need for assistance at home and no other household member able to render care (ICD-10) Muscular deconditioning ?R29.898 - Other symptoms and signs involving the musculoskeletal system (ICD-10) CHF (congestive heart failure) ?I50.9 - Heart failure, unspecified (ICD-10) COPD (chronic obstructive pulmonary disease) ?J44.9 - Chronic obstructive pulmonary disease, unspecified (ICD-10) Surgical History (Updated 08/02/23 @ 15:00 by Fatou Moralez) H/O hysterectomy for benign disease ?Z90.710 - Acquired absence of both cervix and uterus (ICD-10) Previous back surgery ?Z98.890 - Other specified postprocedural states (ICD-10) H/O hernia repair ?Z98.890 - Other specified postprocedural states (ICD-10) ?Z87.19 - Personal history of other diseases of the digestive system (ICD-10) Social History (Updated 08/03/23 @ 11:44 by Shaikh Adonay MD) Within the past year, how often did you have a drink containing alcohol: never Score interpretation: A score less than 3 is consistent with normal alcohol consumption. 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 Known occupational exposures/hazards: No Highest level of school completed/degree received: 7th grade Exam Constitutional Vital Signs, click to edit/add: Last Vital Signs Temp 97.5 F L 11/27/23 10:27 Pulse 77 11/27/23 10:27 Resp 24 H 11/27/23 10:27 BP 110/65 11/27/23 10:27 Pulse Ox 98 11/27/23 10:27 O2 Del Method Room Air 11/27/23 10:27 Course Vital Signs Vital signs: Vital Signs Temperature 97.5 F L 11/27/23 10:27 Pulse Rate 77 11/27/23 10:27 Respiratory Rate 24 H 11/27/23 10:27 Blood Pressure 110/65 11/27/23 10:27 Pulse Oximetry 98 11/27/23 10:27 Oxygen Delivery Method Room Air 11/27/23 10:27 Temperature 97.5 F L 11/27/23 10:27 Pulse Rate 77 11/27/23 10:27 Respiratory Rate 24 H 11/27/23 10:27 Blood Pressure 110/65 11/27/23 10:27 Pulse Oximetry 98 11/27/23 10:27 Oxygen Delivery Method Room Air 11/27/23 10:27 Medical Decision Making MDM Narrative Medical decision making narrative: Patient was straight cath by nursing staff, only approximately 5 mL was received. Bladder scan was done, approximately 350 cc, 3 times was done a bladder scan. Patient mucous membranes are dry. Patient does have mild crackles at the bases, patient was placed on 2 L of oxygen for comfort. She is 98% on room air. She did have increased respiratory rate. Patient had chest x-ray, patient did have a benign mass it was found that was removed from her left lower quadrant a long time ago, patient was told that she has scar tissue as well but no bowel obstruction previously. Secondary to this history, CT of the abdomen pelvis will be ordered as well. Patient will initially be given 500 cc of IV fluid. 1. Cholelithiasis. 2. Prior gastric surgery without evidence of bowel obstruction. 3. Fluid-filled loops of small bowel and cecum without abnormal dilation or appreciable inflammatory changes. 4. Circumferential wall thickening of a 3.1; segment of distal sigmoid colon; mass versus peristalsis. Follow-up recommended. There is a lengthy return of patient's CT report, which is read at 1421. Patient was given a copy of her CT report. Patient has no obstruction, no significant findings otherwise. Lab work shows no significant findings. Chest x-ray shows no fluid, effusion, or any signs of CHF. Labs shows no other significant findings. Patient will be sent home with [facility] and [facility] to use as needed. Patient will follow-up with PCP. No questions at discharge. Lab Data Labs: Lab Results 11/27/23 11/27/23 11/27/23 Range/Units 10:36 10:38 12:40 WBC 9.4 (4.0-11.0) 10^3/uL RBC 3.97 L (4.20-5.40) 10^6/uL Hgb 11.9 L (12.0-16.0) g/dL Hct 37.0 (36.0-48.0) % MCV 93.2 (81.0-99.0) fL MCH 30.0 (26.7-34.0) pg MCHC 32.2 (29.9-35.2) g/dL RDW 14.6 (11.0-15.0) % Plt Count 173 (150-450) 10^3/uL MPV 11.3 (9.5-13.5) fL Neut % (Auto) 69.0 (43.0-75.0) % Lymph % (Auto) 20.9 (20.5-60.0) % [place] % (Auto) 7.6 (1.7-12.0) % Eos % (Auto) 1.9 (0.9-7.0) % Baso % (Auto) 0.4 (0.2-2.0) % Neut # (Auto) 6.5 (1.4-6.5) 10^3/uL Lymph # (Auto) 2.0 (1.2-3.8) 10^3/uL [place] # (Auto) 0.7 (0.3-0.8) 10^3/uL Eos # (Auto) 0.2 (0.0-0.7) 10^3/uL Baso # (Auto) 0.0 (0.0-0.1) 10^3/uL Abs Immat Gran (auto) 0.02 (0.00-0.03) 10^3/uL Imm/Tot Granulo (auto) 0.2 (0.0-0.5) % Sodium 140 (136-145) mmol/L Potassium 3.8 (3.5-5.1) mmol/L Chloride 102 (98-107) mmol/L Carbon Dioxide 26.9 (21.0-32.0) mmol/L Anion Gap 14.9 BUN 14.0 (7.0-18.0) mg/dL Creatinine 1.02 (0.55-1.02) mg/dL Est GFR ( Amer) >60 (>=60) Est GFR (Non-Af Amer) 52 L (>=60) BUN/Creatinine Ratio 13.7 Glucose 162 H (74-106) mg/dL Lactate 3.0 H* 1.8 (0.4-2.0) mmol/L Calcium 8.5 (8.5-10.1) mg/dL Total Bilirubin 0.5 (0.2-1.0) mg/dL AST 12 L (15-37) U/L ALT 15 (14-59) U/L Alkaline Phosphatase 104 (46-116) U/L Troponin I High Sens 5.8 (4.0-51.3) pg/mL Total Protein 6.5 (6.4-8.2) g/dL Albumin 2.9 L (3.4-5.0) g/dL Globulin 3.6 g/dL Albumin/Globulin Ratio 0.8 Lipase 20.0 (16.0-77.0) U/L Urine Color Yellow (YELLOW) Urine Clarity Clear (CLEAR) Urine pH 6.0 (5.0-9.0) Ur Specific [place] 1.010 (1.005-1.025) Urine Protein Negative (NEG/TRACE) mg/dL Urine Glucose (UA) Negative (NEGATIVE) mg/dL Urine Ketones Negative (NEGATIVE) mg/dL Urine Occult Blood Negative (NEGATIVE) Urine Nitrite Negative (NEGATIVE) Urine Bilirubin Negative (NEGATIVE) Urine Urobilinogen 1.0 (0.2-1.0) EU/dL Ur Leukocyte Esterase Negative (NEGATIVE) Urine RBC 0-2 (0-2) #/HPF Urine WBC 0-2 A (NONE SEEN) #/HPF Ur Squamous Epith Cells Rare (NONE/RARE) #/LPF Urine Crystals None seen (None Seen) #/HPF Urine Bacteria Trace A (NONE SEEN) #/HPF Urine Casts None seen (NONE SEEN) #/LPF Urine Mucus None seen (NONE SEEN) Ur Culture Indicated? Already ordered Discharge Plan Discharge Stand Alone Forms: Portal Instructions Chief Complaint: Abdominal Pain Clinical Impression: Abdominal pain, Dehydration, Abdominal bloating Patient Disposition: Home, Self-Care Time of Disposition Decision: 14:35 Condition: Fair Prescriptions / Home Meds: No Action alprazolam 0.25 mg tablet 0.25 mg PO BID PRN (Reason: anxiety) duloxetine 60 mg capsule,delayed release(DR/EC) 60 mg PO DAILY loratadine 10 mg tablet 10 mg PO Q24H lisinopril 5 mg tablet 5 mg PO DAILY aspirin [Dalton Chewable Aspirin] 81 mg tablet,chewable 81 mg PO DAILY Rexulti 2 mg tablet 2 mg PO DAILY Rx Instructions: administer on days 5 through 7 for starting therapy carvedilol 12.5 mg tablet 12.5 mg PO Q12H bupropion HCl (smoking deter) 150 mg tablet extended release 12 hr 150 mg PO BID gabapentin 100 mg capsule 200 mg PO Q12H atorvastatin 40 mg tablet 40 mg PO DAILY furosemide 40 mg tablet 40 mg PO DAILY fluticasone propion-salmeterol 250-50 mcg/dose blister with device 1 inh INHALATION Q12H PRN (Reason: shortness of breath or wheezing) hydrocodone-acetaminophen 7.5-325 mg tablet 1 tab PO Q6H PRN (Reason: severe pain (scale score 7-10)) levothyroxine 100 mcg tablet 100 mcg PO .ACB omeprazole 40 mg capsule,delayed release(DR/EC) 40 mg PO .ACB docusate sodium [Colace] 100 mg capsule 100 mg PO BID Qty: 60 0RF Print Language: Armenian Instructions: Dehydration (ED), Acute Nausea and Vomiting (ED), Abdominal Pain (ED) Additional Instructions: Continue increase fluids at home. Use Zofran as as needed for nausea or vomiting. Use Bentyl as needed for abdominal cramping Follow-up with PCP. A copy of your CT report has been given to you. Follow-up with PCP if any other additional tests are indicated, including possible colonoscopy. Referrals: MK ORTEGA [Primary Care Provider] - 1 week
[2023-11-27 11:18] LABS: WBC Urine 0-2 #/HPF (NONE SEEN)
[2023-11-27 11:19] LABS: Bacteria Urine TRACE #/HPF (NONE SEEN); Cast Seen? NONE SEEN #/LPF (NONE SEEN); Crystals Seen? None Seen #/HPF (None Seen); Mucus Urine NONE SEEN (NONE SEEN); RBC Urine 0-2 #/HPF (0-2); Squamous Epithelial Cell Urine RARE #/LPF (NONE/RARE); Urine Culture Indicated ALREADY ORDERED
[2023-11-27 11:38] LABS: Alanine Aminotransferase 15 U/L (14-59); Albumin Globulin Ratio 0.8; Albumin Level 2.9 g/dL (3.4-5.0); Alkaline Phosphatase 104 U/L (46-116); Anion Gap 14.9; Aspartate Amino Transferase 12 U/L (15-37); BUN Creatinine Ratio 13.7; Bilirubin Total 0.5 mg/dL (0.2-1.0); Calcium 8.5 mg/dL (8.5-10.1); Carbon Dioxide 26.9 mmol/L (21.0-32.0); Chloride 102 mmol/L (98-107); Estimated GFR (African America >60 (>=60); Estimated GFR (Non-African Ame 52 (>=60); Globulin 3.6 g/dL; Glucose 162 mg/dL (74-106); Potassium 3.8 mmol/L (3.5-5.1); Sodium 140 mmol/L (136-145); Total Protein 6.5 g/dL (6.4-8.2); Troponin I High Sensitivity 5.8 pg/mL (4.0-51.3)
[2023-11-27] MEDS: ALPRAZOLAM 0.5 MG TABLET 0.25 MG PO (13:44)
[2023-11-27 14:02] LABS: Lactate/Lactic Acid 1.8 mmol/L (0.4-2.0)
[2023-11-27 14:41] VITALS: BP 120/56; PULSE 71; O2SAT 99
--- NOTE | 2023-11-27 15:10 | ECG_ITS ---
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
== END 2023-11-27 15:02 | disposition home or self-care (01) ==
PROVIDERS: Emergency Provider Emergency Medicine; PCP Internal Medicine
DX: R10.9 Unspecified abdominal pain (principal); R14.0 Abdominal distension (gaseous); E86.0 Dehydration; I50.9 Heart failure, unspecified; I89.0 Lymphedema, not elsewhere classified
CPT/HCPCS: 36415; 71045; 74177; 80053; 81001; 83605; 83690; 84484; 85025; 87086; 93005; 96360; 96361; 99285; Q9967

== ENCOUNTER 2023-12-28 15:42 | Emergency (ER) | payer MEDICARE, SELFPAY ==
[2023-12-28] VITALS (16 sets, daily range): BP systolic 110–112; BP diastolic 72–84; PULSE 68–152; TEMP 36.4; O2SAT 96–100
--- NOTE | 2023-12-28 16:00 | ECG_ITS ---
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
--- NOTE | 2023-12-28 16:00 | XR_ITS ---
The [address] [address] Patient Name: ELGIN NORWOOD MRN: [id number] date: 1940 Sex: F Assigned Patient Location: ER Current Patient Location: ER Accession/Order Number: [id number] Exam Date: 12/28/2023 16:20 Report Date: 12/28/2023 16:44 At the request of: JOSELUIS KUMAR Procedure: XR chest 2V EXAM: XR chest 2V HISTORY: shortness of breath COMPARISON: 11/27/2023 TECHNIQUE: Upright PA and lateral chest x-ray FINDINGS: The heart is not enlarged and the vasculature is not distended. No acute infiltrate, effusion or pneumothorax is identified. There is slight elevation of the left hemidiaphragm. Diffuse osteopenia is noted in the osseous structures are grossly intact. XR/XR chest 2V IMPRESSION: No acute infiltrate or evidence of cardiac decompensation. The overall appearance of the chest is essentially unchanged. Electronically authenticated by: MUNIRA KIDD Date: 12/28/2023 16:44
[2023-12-28 17:03] LABS: Basophils Percent Auto 0.3 % (0.2-2.0); Eosinophils Absolute Auto 0.2 10^3/uL (0.0-0.7); Eosinophils Percent Auto 1.7 % (0.9-7.0); Hematocrit 36.4 % (36.0-48.0); Hemoglobin 11.7 g/dL (12.0-16.0); Immature Granulocytes Abs Auto 0.03 10^3/uL (0.00-0.03); Immature Granulocytes Pct Auto 0.3 % (0.0-0.5); Lymphocytes Absolute Auto 2.9 10^3/uL (1.2-3.8); Lymphocytes Percent Auto 27.8 % (20.5-60.0); Mean Corpuscular HGB Conc 32.1 g/dL (29.9-35.2); Mean Corpuscular Hemoglobin 30.1 pg (26.7-34.0); Mean Corpuscular Volume 93.6 fL (81.0-99.0); Mean Platelet Volume 11.6 fL (9.5-13.5); Monocytes Absolute Auto 0.9 10^3/uL (0.3-0.8); Monocytes Percent Auto 8.3 % (1.7-12.0); Neutrophils Absolute Auto 6.4 10^3/uL (1.4-6.5); Neutrophils Percent Auto 61.6 % (43.0-75.0); Platelet Count 148 10^3/uL (150-450); Red Blood Count 3.89 10^6/uL (4.20-5.40); Red Cell Distribution Width 15.2 % (11.0-15.0); White Blood Count 10.3 10^3/uL (4.0-11.0)
[2023-12-28] MEDS: IPRATROPIUM/ALBUTEROL SULFATE 3 ML AMPUL.NEB 6 ML IH (17:11)
[2023-12-28 17:27] LABS: Anion Gap 13.7; BUN Creatinine Ratio 17.9; Chloride 104 mmol/L (98-107); Estimated GFR (African America 54 (>=60); Estimated GFR (Non-African Ame 44 (>=60); Glucose 87 mg/dL (74-106); Potassium 3.7 mmol/L (3.5-5.1); Sodium 140 mmol/L (136-145); Troponin I High Sensitivity 7.3 pg/mL (4.0-51.3)
[2023-12-28 17:29] LABS: INR 1.02; Partial Thromboplastin Time 21.8 sec (22.3-36.2); Prothrombin Time 10.8 sec (9.0-11.6)
--- NOTE | 2023-12-28 17:32 | ED.SOB1 ---
HPI - SOB/Dyspnea General Chief Complaint: Shortness of Breath/Dyspnea Stated Complaint: Physician Referral, Shortness of Breath Time Seen by Provider: 12/28/23 15:53 Source: patient Mode of arrival: Wheelchair History of Present Illness HPI Narrative: 83-year-old female to the emergency department chief complaint shortness of breath. Her on Thursday. Her [id number] reports that she is breathing heavily since then. She does have a history of COPD. She went to see her primary care doctor today referred her to the emergency department for further workup. Patient does have a history of COPD and CHF. Patient reports symptoms began immediately after her on Thursday. She denies any cough, fever, sweats, chills. She denies any increase swelling. Related Data Home Medications ?Medication ?Instructions ?Recorded ?Confirmed alprazolam 0.25 mg tablet 0.25 mg PO BID PRN anxiety 08/02/23 12/28/23 aspirin 81 mg chewable tablet 81 mg PO DAILY 08/02/23 12/28/23 (Dalton Chewable Low Dose Aspirin) atorvastatin 40 mg tablet 40 mg PO DAILY 08/02/23 12/28/23 carvedilol 12.5 mg tablet 12.5 mg PO Q12H 08/02/23 12/28/23 duloxetine 60 mg capsule,delayed 60 mg PO DAILY 08/02/23 12/28/23 release furosemide 40 mg tablet 40 mg PO DAILY 08/02/23 12/28/23 gabapentin 100 mg capsule 200 mg PO Q12H 08/02/23 12/28/23 loratadine 10 mg tablet 10 mg PO Q24H 08/02/23 12/28/23 hydrocodone 7.5 mg-acetaminophen 1 tab PO Q6H PRN severe pain 08/03/23 12/28/23 325 mg tablet (scale score 7-10) levothyroxine 100 mcg tablet 100 mcg PO .ACB 08/03/23 12/28/23 omeprazole 40 mg capsule,delayed 40 mg PO .ACB 08/03/23 12/28/23 release famotidine 20 mg tablet 20 mg PO DAILY 12/28/23 12/28/23 Previous Rx's ?Medication ?Instructions ?Recorded prednisone 20 mg tablet 40 mg (2 x 20 mg) PO DAILY 5 days 12/28/23 #10 tabs Allergies Allergy/AdvReac Type Severity Reaction Status Date / Time rofecoxib [From Vioxx] Allergy Severe Unknown Verified 12/28/23 15:58 naproxen [From Aleve] Allergy Intermediate Unknown Verified 12/28/23 15:58 Review of Systems ROS Status of ROS 10 or more systems reviewed and unremarkable except as noted in history and below [facility] Medical History (Updated 12/28/23 @ 18:02 by Daron Goodman MD) Hypothyroidism ?E03.9 - Hypothyroidism, unspecified (ICD-10) HLD (hyperlipidemia) ?E78.5 - Hyperlipidemia, unspecified (ICD-10) HTN (hypertension) ?I10 - Essential (primary) hypertension (ICD-10) Insufficient home care support ?Z74.2 - Need for assistance at home and no other household member able to render care (ICD-10) Muscular deconditioning ?R29.898 - Other symptoms and signs involving the musculoskeletal system (ICD-10) CHF (congestive heart failure) ?I50.9 - Heart failure, unspecified (ICD-10) COPD (chronic obstructive pulmonary disease) ?J44.9 - Chronic obstructive pulmonary disease, unspecified (ICD-10) Surgical History (Updated 08/02/23 @ 15:00 by Fatou Moralez) H/O hysterectomy for benign disease ?Z90.710 - Acquired absence of both cervix and uterus (ICD-10) Previous back surgery ?Z98.890 - Other specified postprocedural states (ICD-10) H/O hernia repair ?Z98.890 - Other specified postprocedural states (ICD-10) ?Z87.19 - Personal history of other diseases of the digestive system (ICD-10) Social History (Updated 08/03/23 @ 11:44 by Shaikh Adonay MD) Within the past year, how often did you have a drink containing alcohol: never Score interpretation: A score less than 3 is consistent with normal alcohol consumption. 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 GENERAL: Well developed, well appearing adult in no acute distress. NEURO: Alert and oriented. Moves all extremities. Face is symmetric and expressive. EYES: PERRL. No scleral icterus or conjunctival injection. No discharge. HENT: Normocephalic, atraumatic. Hearing is grossly intact. Nares grossly patent and without discharge. Mucous membranes moist. NECK: No JVD. Patient moves neck without restriction. CARDIO: Rhythm regular. Normal rate. No murmur, rub, or gallop. Pulses equal bilaterally in the upper and lower extremity. No lower extremity edema. PULM: Tachypnea. Clear lungs. No conversational dyspnea. No splinting, stridor. GI/: Abdomen is soft and non-tender. Normoactive bowel sounds. EXTREMITIES: Symmetric muscle bulk. No joint swelling. No clubbing, cyanosis, or deformity. SKIN: Warm and dry. Normal turgor. No rash or lesions appreciated. PSYCH: Anxious Constitutional Vital Signs, click to edit/add: Last Vital Signs Temp 97.5 F L 12/28/23 15:51 Pulse 120 H 12/28/23 18:00 Resp 23 H 12/28/23 18:00 BP 110/84 12/28/23 18:16 Pulse Ox 98 12/28/23 18:00 O2 Del Method Room Air 12/28/23 17:14 Course Vital Signs Vital signs: Vital Signs Temperature 97.5 F L 12/28/23 15:51 Pulse Rate 73 12/28/23 15:51 Respiratory Rate 28 H 12/28/23 15:51 Blood Pressure 112/72 12/28/23 15:51 Pulse Oximetry 96 12/28/23 15:51 Oxygen Delivery Method Room Air 12/28/23 15:51 Temperature 97.5 F L 12/28/23 15:51 Pulse Rate 120 H 12/28/23 18:00 Respiratory Rate 23 H 12/28/23 18:00 Blood Pressure 110/84 12/28/23 18:16 Pulse Oximetry 98 12/28/23 18:00 Oxygen Delivery Method Room Air 12/28/23 17:14 MDM - SOB/Dyspnea MDM Narrative Medical decision making narrative: 83-year-old female to the emergency department chief complaint of tachypnea. Vital stable, the patient is afebrile. She is oxygenating well. She appears anxious. Cardiac workup is initiated. Will obtain chest x-ray. Trial of DuoNeb treatment. Patient and her [id number] agree with this plan. Does not appear to be in CHF exacerbation. Will attempt DuoNeb treatment and see how she does. This appears to be more of grief reaction/anxiety. EKG without evidence of ischemia. Chest x-ray is without acute finding. Her troponin and pro-BNP are both within normal limits. DuoNeb treatment was given. DuoNeb treatment had no effect. Patient reports she now feels more anxious. She would like discharge home at this time. She remains tachypneic. I did offer her stay in admission and she declined. She does not want to miss her 's . Will give prednisone, treat as COPD exacerbation at this time. She will use breathing treatments at home. Return precautions were discussed. All questions were answered. The patient was discharged home at her request. Medical Records Attestation: I reviewed the patient's medical records. Lab Data Attestation: I reviewed the patient's lab results. Labs: Lab Results 12/28/23 Range/Units 16:53 WBC 10.3 (4.0-11.0) 10^3/uL RBC 3.89 L (4.20-5.40) 10^6/uL Hgb 11.7 L (12.0-16.0) g/dL Hct 36.4 (36.0-48.0) % MCV 93.6 (81.0-99.0) fL MCH 30.1 (26.7-34.0) pg MCHC 32.1 (29.9-35.2) g/dL RDW 15.2 H (11.0-15.0) % Plt Count 148 L (150-450) 10^3/uL MPV 11.6 (9.5-13.5) fL Neut % (Auto) 61.6 (43.0-75.0) % Lymph % (Auto) 27.8 (20.5-60.0) % [place] % (Auto) 8.3 (1.7-12.0) % Eos % (Auto) 1.7 (0.9-7.0) % Baso % (Auto) 0.3 (0.2-2.0) % Neut # (Auto) 6.4 (1.4-6.5) 10^3/uL Lymph # (Auto) 2.9 (1.2-3.8) 10^3/uL [place] # (Auto) 0.9 H (0.3-0.8) 10^3/uL Eos # (Auto) 0.2 (0.0-0.7) 10^3/uL Baso # (Auto) 0.0 (0.0-0.1) 10^3/uL Abs Immat Gran (auto) 0.03 (0.00-0.03) 10^3/uL Imm/Tot Granulo (auto) 0.3 (0.0-0.5) % PT 10.8 (9.0-11.6) sec INR 1.02 APTT 21.8 L (22.3-36.2) sec Sodium 140 (136-145) mmol/L Potassium 3.7 (3.5-5.1) mmol/L Chloride 104 (98-107) mmol/L Carbon Dioxide 26.0 (21.0-32.0) mmol/L Anion Gap 13.7 BUN 21.0 H (7.0-18.0) mg/dL Creatinine 1.17 H (0.55-1.02) mg/dL Est GFR ( Amer) 54 L (>=60) Est GFR (Non-Af Amer) 44 L (>=60) BUN/Creatinine Ratio 17.9 Glucose 87 (74-106) mg/dL Calcium 9.0 (8.5-10.1) mg/dL Troponin I High Sens 7.3 (4.0-51.3) pg/mL NT-Pro-B Natriuret Pep 699.0 (<=1800.0) pg/mL Imaging Data Chest x-ray: Attestation: I have reviewed the pertinent imaging results. Radiologist's impression: ITS Impressions Chest X-Ray 12/28/23 16:00 IMPRESSION: No acute infiltrate or evidence of cardiac decompensation. The overall appearance of the chest is essentially unchanged. Electronically authenticated by: MUNIRA KIDD Date: 12/28/2023 16:44 ECG Data Attestation: I personally reviewed and interpreted this ECG as follows: (NSR 69. No STEMI. Normal QTC. ) Discharge Plan Discharge Stand Alone Forms: Portal Instructions Chief Complaint: Shortness of Breath/Dyspnea Clinical Impression: Anxiety, Grief reaction, COPD exacerbation Patient Disposition: Home, Self-Care Time of Disposition Decision: 17:59 Condition: Good Mode of Transportation: Private Vehicle Prescriptions / Home Meds: New prednisone 20 mg tablet 40 mg PO DAILY 5 Days Qty: 10 0RF No Action alprazolam 0.25 mg tablet 0.25 mg PO BID PRN (Reason: anxiety) duloxetine 60 mg capsule,delayed release(DR/EC) 60 mg PO DAILY loratadine 10 mg tablet 10 mg PO Q24H aspirin [Dalton Chewable Aspirin] 81 mg tablet,chewable 81 mg PO DAILY carvedilol 12.5 mg tablet 12.5 mg PO Q12H gabapentin 100 mg capsule 200 mg PO Q12H atorvastatin 40 mg tablet 40 mg PO DAILY furosemide 40 mg tablet 40 mg PO DAILY hydrocodone-acetaminophen 7.5-325 mg tablet 1 tab PO Q6H PRN (Reason: severe pain (scale score 7-10)) levothyroxine 100 mcg tablet 100 mcg PO .ACB omeprazole 40 mg capsule,delayed release(DR/EC) 40 mg PO .ACB famotidine 20 mg tablet 20 mg PO DAILY Print Language: Macedonian Instructions: Grief and Loss (ED), COPD (Chronic Obstructive Pulmonary Disease) (ED) Additional Instructions: Call the office of your primary care doctor to arrange for follow-up within the above-stated timeframe. Your ED visit was focused on your acute issue and does not replace primary care. You should review your labs, imaging, and diagnoses from this ED visit with your primary care physician. There may be non-emergent/ incidental findings that need further evaluation. You should review your vital signs including blood pressure with your PCP. If you were prescribed medications you should discuss possible side-effects and drug interactions with your pharmacist. Call 911 or go to the nearest Emergency Department if you develop any new or worsening symptoms. Seek immediate medical attention if you develop: worsening shortness of breath, difficulty breathing, chest pain, nausea, vomiting, weakness, numbness, tingling, excessive sweating, loss of motion in your arms or legs, or any new or worsening symptoms. Breathing treatments every 4 hours. Take steroids as prescribed. Referrals: MK ORTEGA [Primary Care Provider] - 1 week
[2023-12-28] MEDS: PREDNISONE 20 MG TABLET 40 MG PO (18:09)
== END 2023-12-28 18:17 | disposition home or self-care (01) ==
PROVIDERS: Emergency Provider Student in an Organized Health Care Education/Training Program; PCP Internal Medicine
DX: J44.1 Chronic obstructive pulmonary disease with (acute) exacerbation (principal); F43.22 Adjustment disorder with anxiety; R06.02 Shortness of breath; Z63.4 Disappearance and death of family member; I50.9 Heart failure, unspecified
CPT/HCPCS: 36415; 71046; 80048; 83880; 84484; 85025; 85610; 85730; 93005; 94640; 99285; J7512

== ENCOUNTER 2024-01-04 06:08 | Outpatient (OUT) | payer MEDICARE, SELFPAY ==
--- NOTE | 2024-01-04 06:05 | NM_ITS ---
The [address] [address] Patient Name: ELGIN NORWOOD MRN: [id number] date: 1940 Sex: F Assigned Patient Location: [place] Current Patient Location: [place] Accession/Order Number: [id number] Exam Date: 01/04/2024 06:05 Report Date: 01/04/2024 10:48 At the request of: MK ORTEGA Procedure: [place] hepatobiliary w pharm EXAMINATION: [place] hepatobiliary w pharm HISTORY: RIGHT UPPER QUADRANT PAIN, NAUSEA COMPARISON: No relevant comparison available. TECHNIQUE: Radionuclide hepatobiliary imaging was performed after intravenous injection of 4.9 Tc-99m nephrolith in with sequential acquisitions every 1 minute for one hour. Hepatobiliary imaging with gallbladder ejection fraction analysis was then performed with sequential imaging every 1 minute for 60 minutes after the patient drank 8 ounces of ensure plus. FINDINGS: LIVER: Normal, prompt and uniform radiotracer uptake and clearing. BILIARY DUCTS: Normal radioisotopic biliary excretion. GALLBLADDER: Delayed visualization at 45 minutes INTESTINE: Normal with no evidence of common biliary ductal obstruction. EJECTION FRACTION: 0 % within 60 minutes. (Normal EF > 38%). OTHER: Negative. [place] hepatobiliary w pharm IMPRESSION: Delayed visualization of the gallbladder seen at 45 minutes Patent biliary tree Biliary dyskinesia with no emptying at 60 minutes Electronically authenticated by: CARLOS SOOD Date: 01/04/2024 10:48
== END 2024-01-04 06:09 | disposition home or self-care (01) ==
LOC: NM 06:08
PROVIDERS: PCP Internal Medicine; Visit Provider Internal Medicine
DX: R11.0 Nausea (principal); K82.8 Other specified diseases of gallbladder
CPT/HCPCS: 78227; A9537

== ENCOUNTER 2024-01-11 10:13 | Emergency (ER) | payer MEDICARE, SELFPAY ==
[2024-01-11 10:24] VITALS: BP 126/66; PULSE 74; TEMP 36.6; O2SAT 98; BMI 32.0
[2024-01-11 10:31] VITALS: PULSE 77
--- NOTE | 2024-01-11 10:56 | XR_ITS ---
The [address] [address] Patient Name: ELGIN NORWOOD MRN: [id number] date: 1940 Sex: F Assigned Patient Location: ER Current Patient Location: ER Accession/Order Number: [id number] Exam Date: 01/11/2024 11:00 Report Date: 01/11/2024 11:31 At the request of: STARR MORLEY Procedure: XR abdomen min 2V EXAMINATION: XR abdomen min 2V HISTORY: flat erect COMPARISON: No relevant comparison available. FINDINGS: LUNGS: No infiltrate, pneumothorax, or pleural effusion. MEDIASTINUM: No abnormal widening. BOWEL GAS PATTERN: Non-obstructed. Left upper quadrant suture line FREE AIR: None. CALCIFICATIONS: None significant. BONES: Rotatory levocurvature thoracolumbar spine centered at L1. Moderate degenerative changes OTHER: Vascular calcifications XR/XR abdomen min 2V IMPRESSION: Nonobstructive bowel gas pattern Electronically authenticated by: CARLOS SOOD Date: 01/11/2024 11:31
--- NOTE | 2024-01-11 10:56 | XR_ITS ---
The [address] [address] Patient Name: ELGIN NORWOOD MRN: [id number] date: 1940 Sex: F Assigned Patient Location: ER Current Patient Location: ER Accession/Order Number: [id number] Exam Date: 01/11/2024 11:00 Report Date: 01/11/2024 11:37 At the request of: STARR MORLEY Procedure: XR ribs RT min 3V w CXR1V EXAMINATION: XR ribs RT min 3V w CXR1V HISTORY: pain COMPARISON: 12/28/2023 FINDINGS: LUNGS: No significant pulmonary parenchymal abnormalities. PLEURA: No pneumothorax, effusion, or pleural thickening. Stable elevation of the left hemidiaphragm MEDIASTINUM: No visible mass or adenopathy. CARDIAC: No cardiomegaly or cardiac silhouette abnormality. RIBS: No acute rib fracture OTHER: Degenerative spondylosis of the spine XR/XR ribs RT min 3V w CXR1V IMPRESSION: Clear lungs No acute rib fracture Electronically authenticated by: CARLOS SOOD Date: 01/11/2024 11:37
--- NOTE | 2024-01-11 11:10 | ED_ITS ---
HPI HPI - General Adult General Chief complaint: Extremity Injury, Lower Stated complaint: ABDOMINAL PAIN, LOWER LEFT EXTREMITY PAIN, FALL Time Seen by Provider: 01/11/24 10:55 Source: family Mode of arrival: Wheelchair History of Present Illness HPI narrative: Patient is a very pleasant 83-year-old female who is presenting to the ER today with chief complaint of right-sided rib pain. Patient fell on Thursday or Thursday, patient was at home with her son. Son is at bedside as well. Patient has minimal bruising to the right upper frontal aspect of her forehead, also bruising to left knee. Patient is having moderate to severe amount of pain to the right lower anterior and lateral chest wall on the right, no pain to the left. Patient have pain with deep inspiration. Patient also says that she has not had a bowel movement in the last several weeks since her and and protections were 2 to 3 weeks ago. Patient also has not been eating much in last 2 weeks. Patient was due to have scopes done this morning by GI process, but came to the ER instead secondary rib pain. Patient has no urinary symptoms. Patient also has significant amount of bruising to left knee but no pain. Patient has full range of motion of both her knees, hips and lower extremities with no difficulty. Patient is most concerned about her ribs, son also had mentioned that she is not having bowel movements in the past several weeks. All systems are negative except as noted/marked. All systems reviewed and otherwise negative. Nurses note and vital signs reviewed and patient is not hypoxic. Elisa COTA was at bedside during the entire exam and HPI. General: The patient appears well and in no apparent distress. Patient is resting comfortably on cart. Patient is not toxic, lethargic, or listless Skin: Warm, dry, no pallor noted. There is no rash noted. No petechiae, purpura. Head: Normocephalic, atraumatic Eye: Normal conjunctiva, no drainage, EOMI. PERRL Ears, Nose, Mouth, and Throat: oral mucosa is moist. Nares patent. Mouth without vesicles. Cardiovascular: Regular Rate and Rhythm, no murmur, gallop, rub, mild splinting noted. Slight decreased breath sounds bilateral secondary to right lower anterior lateral pain. No bruising to chest wall. Patient has moderate tenderness to palpation to the right lower anterior and lateral chest wall, no crepitus, no signs of flail chest, no bruising, no crepitus. Decreased breath sounds bilateral but equal. Respiratory: Patient is in no distress, no accessory muscle use, lungs are clear to auscultation, no wheezing, rales or rhonchi Back: non-tender, no CVA tenderness bilaterally to percussion. No CT LS midline pain GI: Soft, no peritoneal signs, no flank pain bilateral, no rigidity, no tympany. Otherwise no tenderness to palpation, no masses appreciated. No rebound, guarding, or rigidity noted. No distention Musculoskeletal: Patient has full range of motion of all of the extremities, no motor, sensory, or focal neurological deficits. Significant amount of ecchymosis noted to the anterior aspect of the left knee, however full range of motion of knee with no pain. No pain with varus or valgus stress of left knee. Full range of motion of right knee, and lower extremities no difficulty or pain Neurological: A&O x4, normal speech Psychiatric: Cooperative Related Data Home Medications ?Medication ?Instructions ?Recorded ?Confirmed alprazolam 0.25 mg tablet 0.25 mg PO BID PRN anxiety 08/02/23 12/28/23 aspirin 81 mg chewable tablet 81 mg PO DAILY 08/02/23 12/28/23 (Dalton Chewable Low Dose Aspirin) atorvastatin 40 mg tablet 40 mg PO DAILY 08/02/23 12/28/23 carvedilol 12.5 mg tablet 12.5 mg PO Q12H 08/02/23 12/28/23 duloxetine 60 mg capsule,delayed 60 mg PO DAILY 08/02/23 12/28/23 release furosemide 40 mg tablet 40 mg PO DAILY 08/02/23 12/28/23 gabapentin 100 mg capsule 200 mg PO Q12H 08/02/23 12/28/23 loratadine 10 mg tablet 10 mg PO Q24H 08/02/23 12/28/23 hydrocodone 7.5 mg-acetaminophen 1 tab PO Q6H PRN severe pain 08/03/23 12/28/23 325 mg tablet (scale score 7-10) levothyroxine 100 mcg tablet 100 mcg PO .ACB 08/03/23 12/28/23 omeprazole 40 mg capsule,delayed 40 mg PO .ACB 08/03/23 12/28/23 release famotidine 20 mg tablet 20 mg PO DAILY 12/28/23 12/28/23 Previous Rx's ?Medication ?Instructions ?Recorded prednisone 20 mg tablet 40 mg (2 x 20 mg) PO DAILY 5 days 12/28/23 #10 tabs tramadol 50 mg tablet 50 mg PO Q8H PRN pain #14 tabs 01/11/24 Allergies Allergy/AdvReac Type Severity Reaction Status Date / Time rofecoxib [From Vioxx] Allergy Severe Unknown Verified 01/11/24 10:27 naproxen [From Aleve] Allergy Intermediate Unknown Verified 01/11/24 10:27 Opioid HPI Opioid Management Most Recent Opioid Data: Last Pain Scale 0 08/03/23 11:20 Last Pain Intensity 0 08/03/23 11:20 [facility] History (Updated 01/11/24 @ 13:23 by Josh Payne MD) Hypothyroidism ?E03.9 - Hypothyroidism, unspecified (ICD-10) HLD (hyperlipidemia) ?E78.5 - Hyperlipidemia, unspecified (ICD-10) HTN (hypertension) ?I10 - Essential (primary) hypertension (ICD-10) Insufficient home care support ?Z74.2 - Need for assistance at home and no other household member able to render care (ICD-10) Muscular deconditioning ?R29.898 - Other symptoms and signs involving the musculoskeletal system (ICD-10) CHF (congestive heart failure) ?I50.9 - Heart failure, unspecified (ICD-10) COPD (chronic obstructive pulmonary disease) ?J44.9 - Chronic obstructive pulmonary disease, unspecified (ICD-10) Surgical History (Updated 08/02/23 @ 15:00 by Fatou Moralez) H/O hysterectomy for benign disease ?Z90.710 - Acquired absence of both cervix and uterus (ICD-10) Previous back surgery ?Z98.890 - Other specified postprocedural states (ICD-10) H/O hernia repair ?Z98.890 - Other specified postprocedural states (ICD-10) ?Z87.19 - Personal history of other diseases of the digestive system (ICD-10) Social History (Updated 08/03/23 @ 11:44 by Shaikh Adonay MD) Within the past year, how often did you have a drink containing alcohol: never Score interpretation: A score less than 3 is consistent with normal alcohol consumption. 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 Known occupational exposures/hazards: No Highest level of school completed/degree received: 7th grade Exam Constitutional Vital Signs, click to edit/add: Last Vital Signs Temp 97.9 F 01/11/24 10:24 Pulse 77 01/11/24 10:31 Resp 22 H 01/11/24 10:24 BP 126/66 01/11/24 10:24 Pulse Ox 98 01/11/24 10:24 O2 Del Method Room Air 01/11/24 10:24 Course Vital Signs Vital signs: Vital Signs Temperature 97.9 F 01/11/24 10:24 Pulse Rate 74 01/11/24 10:24 Respiratory Rate 22 H 01/11/24 10:24 Blood Pressure 126/66 01/11/24 10:24 Pulse Oximetry 98 01/11/24 10:24 Oxygen Delivery Method Room Air 01/11/24 10:24 Temperature 97.9 F 01/11/24 10:24 Pulse Rate 77 01/11/24 10:31 Respiratory Rate 22 H 01/11/24 10:24 Blood Pressure 126/66 01/11/24 10:24 Pulse Oximetry 98 01/11/24 10:24 Oxygen Delivery Method Room Air 01/11/24 10:24 Medical Decision Making MDM Narrative Medical decision making narrative: Patient was given a incentive spirometer/ PEP therapy. X-ray of ribs, chest wall and lung showed no acute findings, no rib fracture. Patient's abdominal x-ray shows no significant signs of bowel obstruction, constipation, or other acute abnormality. Continue increase fluids at home, use MiraLAX if needed at home, you do not have a significant amount of stool in her abdomen. Patient was educated on not using heat anymore which she has been doing the last 2 days. Patient will use Tylenol, Motrin and Ultram. Education the patient is somewhat on using ice was discussed as well. Patient will follow-up with PCP, no questions at discharge. Discharge Plan Discharge Stand Alone Forms: Portal Instructions Chief Complaint: Extremity Injury, Lower Clinical Impression: Fall, Contusion of rib on right side, Chest wall pain, Acute costochondritis, Contusion of knee, left, Head injury Patient Disposition: Home, Self-Care Time of Disposition Decision: 13:19 Condition: Fair Prescriptions / Home Meds: New tramadol 50 mg tablet 50 mg PO Q8H PRN (Reason: pain) Qty: 14 0RF No Action alprazolam 0.25 mg tablet 0.25 mg PO BID PRN (Reason: anxiety) duloxetine 60 mg capsule,delayed release(DR/EC) 60 mg PO DAILY loratadine 10 mg tablet 10 mg PO Q24H aspirin [Dalton Chewable Aspirin] 81 mg tablet,chewable 81 mg PO DAILY carvedilol 12.5 mg tablet 12.5 mg PO Q12H gabapentin 100 mg capsule 200 mg PO Q12H atorvastatin 40 mg tablet 40 mg PO DAILY furosemide 40 mg tablet 40 mg PO DAILY hydrocodone-acetaminophen 7.5-325 mg tablet 1 tab PO Q6H PRN (Reason: severe pain (scale score 7-10)) levothyroxine 100 mcg tablet 100 mcg PO .ACB omeprazole 40 mg capsule,delayed release(DR/EC) 40 mg PO .ACB famotidine 20 mg tablet 20 mg PO DAILY prednisone 20 mg tablet 40 mg PO DAILY 5 Days Qty: 10 0RF Print Language: Swedish Instructions: Costochondritis (ED), Head Injury (ED), Contusion in Adults (ED), Fall Prevention (ED), Chest Wall Pain (ED), Rib Contusion (ED) Additional Instructions: Do not use heat any longer, use ice 20 minutes on, 20 minutes off. Use incentive spirometer 7-10 times every hour for the next 2 weeks to help with breathing Increase fluids at home You did not have a significant amount of stool in your abdomen, increase food/protein and/or electrolyte/protein drinks at home. If you are having significant difficulty grieving over your , please follow-up with PCP for therapy, counseling, or any other additional medication as needed. You may use Tylenol, and anti-inflammatories, and the Ultram prescription, and ice all to help with your pain, especially to right-sided rib pain Referrals: MK ORTEGA [Primary Care Provider] - 1 week
[2024-01-11] MEDS: HYDROCODONE/ACET 5-325 MG TABLET 1 TAB PO (11:26)
== END 2024-01-11 13:40 | disposition home or self-care (01) ==
PROVIDERS: Emergency Provider Emergency Medicine; PCP Internal Medicine
DX: S20.211A Contusion of right front wall of thorax, initial encounter (principal); R07.89 Other chest pain; M94.0 Chondrocostal junction syndrome [Tietze]; S80.02XA Contusion of left knee, initial encounter; S09.90XA Unspecified injury of head, initial encounter; L03.032 Cellulitis of left toe; W19.XXXA Unspecified fall, initial encounter
CPT/HCPCS: 71101; 74019; 99284

== ENCOUNTER 2024-05-27 12:32 | Outpatient (OUT) | payer MEDICARE, SELFPAY ==
--- NOTE | 2024-05-27 13:00 | CA_ITS ---
Patient Name: ELGIN NORWOOD MR#: [id number] : 1940 Exam Date: 05/27/2024 Ordering Doctor: DR MK ORTEGA M.D. ECHOCARDIOGRAM REPORT PROCEDURE: CA ECHO DOPPLER COMPLETE INDICATIONS: Chronic combined systolic and diastolic heart failure, hypertension, diabetes COMPARISON: None. DESCRIPTION: COMPLETE ECHOCARDIOGRAM Real-time transthoracic echocardiography with 2D, M-mode, spectral and color flow Doppler performed. QUALITY: Technical quality was good. LEFT VENTRICLE: Normal chamber size. Borderline left ventricular hypertrophy. LV EF: Normal left ventricular ejection fraction, 60%. No regional wall motion abnormalities. DIASTOLIC: Diastolic function is indeterminate ATRIAL SEPTUM: Visually appears intact. LEFT ATRIUM: Mild dilatation. RIGHT ATRIUM: Normal chamber size. RIGHT VENTRICLE: Normal chamber size. Decreased right ventricular systolic function. Could not evaluate Pulmonary atrial pressure due to lack of TR TRICUSPID VALVE: Normal mobility and thickness. No stenosis with no regurgitation. MITRAL VALVE: Normal mobility and thickness. No evidence of mitral valve stenosis. Mild mitral annular calcification. Trivial mitral regurgitation. AORTIC VALVE: Normal trileaflet appearance. Mildly calcified aortic valve. Normal leaflet mobility. No evidence of aortic valve stenosis. No aortic regurgitation. AORTIC ROOT: Normal diameter and appearance. PULMONIC VALVE: Normal thickness and mobility. No stenosis. PERICARDIUM: Small pericardial effusion with fibrinous appearance . No evidence of tamponade. IVC: IVC is dilated (2.6 cm), does not fully collapse, consistent with elevated central venous pressure, RAP 15 mmHg PLEURA: CONCLUSION: Normal left ventricle chamber size. Borderline left ventricular hypertrophy. Normal left ventricular ejection fraction, 60%. No regional wall motion abnormalities. Normal right ventricle chamber size. Decreased right ventricular systolic function Small pericardial effusion with fibrinous appearance . No evidence of tamponade. IVC is dilated (2.6 cm), does not fully collapse, consistent with elevated central venous pressure, RAP 15 mmHg No significant valvular abnormalities Adult Echocardiography Procedure Report Left Ventricle LVEDD (3.7 - 5.6 cm): 4.41 cm LVESD (2.2 - 4.0 cm): 3.15 cm LVIVS thickness (0.6 - 1.2 cm): 0.75 cm LVPW thickness (0.5 - 1.0 cm): 1.01 cm e': 0.06 m/s E - e': 13.60 LVOT Max Gradient: 1.74 mm[Hg] LVOT Area (cm2): 0.66 m/s Peak Velocity (LVOT): 0.66 m/s Mean Velocity (LVOT): 0.44 m/s LVOT Diameter 2.08 cm Left Atrium LA Volume Index (2D A2C): 39.49 ml/m2 Left Atrium Systolic Dimension: 3.41 cm Mitral Valve MV E to A Ratio: 0.87 Mitral Valve A-Wave Peak Velocity: 1.02 m/s Mitral Valve E-Wave Peak Velocity: 0.88 m/s Right Ventricle Aorta AO Root Diam: 3.05 cm Aortic Valve AoV Area (Peak Piotr): 1.35 cm2, 1.35 cm2 AoV Area (VTI): 1.51 cm2, 1.51 cm2 Peak Velocity(Antegrade Flow): 1.65 m/s Peak Gradient(Antegrade Flow): 10.87 mm[Hg] Mean Velocity(Antegrade Flow): 1.14 m/s Mean Gradient(Antegrade Flow): 5.95 mm[Hg] Velocity Time Integral: 42.78 cm Tricuspid Valve Pulmonic Valve Mean Gradient: 2.27 mm[Hg] Mean Velocity: 0.70 m/s Peak Velocity: 1.08 m/s, 1.04 m/s Peak Gradient: 4.33 mm[Hg], 4.69 mm[Hg] Right Atrium Right Atrium Systolic Pressure: 20.97 ml, 20.97 ml Dictated by: Nataliya Olivares MD on 05/27/2024 at 17:40 Approved by: Nataliya Olivares MD on 05/27/2024 at 18:01
== END 2024-05-27 12:33 | disposition home or self-care (01) ==
LOC: CARD 12:33
PROVIDERS: PCP Internal Medicine; Visit Provider Internal Medicine
DX: E04.2 Nontoxic multinodular goiter (principal); I50.42 Chronic combined systolic (congestive) and diastolic (congestive) heart failure
CPT/HCPCS: 76536; 93306

== ENCOUNTER 2024-05-27 13:31 | Outpatient (OUT) | payer MEDICARE, SELFPAY ==
--- NOTE | 2024-05-27 13:35 | US_ITS ---
[address] [address] Patient Name: ELGIN NORWOOD MRN: [id number] date: 1940 Sex: F Assigned Patient Location: US Current Patient Location: Accession/Order Number: [id number] Exam Date: 05/27/2024 13:36 Report Date: 05/28/2024 06:22 At the request of: BEL OJEDA Procedure: US thyroid EXAMINATION: US thyroid HISTORY: Multinodular Goiter COMPARISON: Ultrasound thyroid 06/01/2023 FINDINGS: RIGHT LOBE: Lobectomy. No appreciable residual tissue. LEFT LOBE: Slightly heterogeneous echotexture and contains a left lobe/isthmus stable 14 x 7 x 9 mm TR 4 nodule. Lobe size: 3.2 x 1.2 x 1.1 cm ISTHMUS: Abnormally thickened and slightly heterogeneous. Thickness: 12 mm US/US thyroid IMPRESSION: 1. Right lobectomy. No appreciable residual tissue. 2. Stable 14 mm TR 4 nodule within medial left lobe/left lateral isthmus. Consider follow-up ultrasound evaluation in one year to document stability. TR4 (moderately suspicious): If > 1.0 cm, follow-up ultrasound in 1, 2, 3, and 5 years. If > 1.5 cm, fine needle aspiration (FNA). Electronically authenticated by: AMAYA GRAMAJO Date: 05/28/2024 06:22
== END 2024-05-27 13:32 | disposition home or self-care (01) ==
LOC: US 13:31
PROVIDERS: PCP Internal Medicine; Visit Provider Otolaryngology
DX: E04.2 Nontoxic multinodular goiter (principal); Z98.890 Other specified postprocedural states
CPT/HCPCS: 76536

== ENCOUNTER 2024-08-13 14:15 | Emergency (ER) | payer MEDICARE, SELFPAY ==
[2024-08-13] VITALS (11 sets, daily range): BP systolic 121–155; BP diastolic 50–68; PULSE 63–93; TEMP 37.1; O2SAT 94–100; BMI 27.5
--- OUTSIDE RECORDS SUMMARY | 2024-08-13 14:23 | XMS_ITS | CCD ---
Author Organization [facility]ini[facility] Care Team Providers [employer] Name Role Phone Unavailable Unavailable Libra, Dr. Durbin Attending Unavaila tere Landers II, Yossi Meyer Primary Care Unavail able Libra, Dr. Durbin Referring Unavaila tere Hernandez, Dr. Durbin Attending Unavaila tere Landers II, Yossi Meyer Primary Care Unavail able CARMEN ., TANYA Attending Unavailable CARMEN ., TANYA Admitting Unavailable GRECHNY ., PHILIP HERNANDEZ Consulting Unavailabl e CAILIN, DR TERRAZAS Primary Care Unavailable KAELA HOOKER Consulting Unavailable JUAN M ., STELLA Consulting Unavailable SISTER, SYLVESTER Consulting Unavailable CARMEN ., TANYA Consulting Unavailable LAURA PAVEL Consulting Unavailable ALLISON MCCALL Consulting Unavailable CAILIN, DR TERRAZAS Consulting Unavailable CAILIN, DR TERRAZAS Primary Care Unavailable CAILIN, DR TERRAZAS Attending Unavailable CAILIN, DR TERRAZAS Admitting Unavailable ZIEBER, DR AMAYA Cleveland Consulting Unavailable CAILIN, DR TERRAZAS Consulting Unavailable CAILIN, DR TERRAZAS Primary Care Unavailable CAILIN, DR TERRAZAS Attending Unavailable CAILIN, DR TERRAZAS Admitting Unavailable BARRIE, DR CARLOS Mcghee Consulting Unavailable TIMMIS, BEL Consulting Unavailable CAILIN, DR TERRAZAS Primary Care Unavailable TIMMISMARIELYBEL Attending Unavailable TIMMIS, BEL Admitting Unavailable ZIEBER, DR AMAYA Cleveland Consulting Unavailable TIMMIS, BEL Consulting Unavailable CAILIN, DR TERRAZAS Primary Care Unavailable TIMMIS, BEL Attending Unavailable TIMMIS, BEL Admitting Unavailable WEST, DR CARLOS Mcghee Consulting Unavailable KARYN WASHINGTON Consulting Unavailable CAILIN, DR TERRAZAS Primary Care Unavailable HEMMER, DR SALUD Bryant Attending Unavailable HEMMER, DR SALUD Bryatn Admitting Unavailable HEMMER, DR SALUD Braynt Consulting Unavailable LAYNE TERRAZAS Consulting Unavailable LAYNE TERRAZAS Attending Unavailable LAYNE TERRAZAS Admitting Unavailable DR YOSSI LANDERS Primary Care Unavailable DUANE BILLINGSLEY Consulting Unavailable AMAYA FRENCH Consulting Unavailable VIKY WILLIAMSON Consulting Unavailable REED LYNNE Consulting Unavailable Yossi Landers MD Primary Care Provider Yossi Landers MD Unavailable [phone] YOSSI LANDERS Primary Care Physician MoEllen downingamad A. Attending Unavailable Mouchli Mohamad A. Referring Unavailable Mouchli, Mohamad A. Admitting Unavailable Mouchli, Mohamad A. Attending Unavailable Mouchli Mohamad A. Admitting Unavailable Mouchli, Mohamad A. Attending Unavailable Ellen Glezamad A. Referring Unavailable BEL OJEDA Attending Unavailable ALESSANDRO LEVI Attending Unavailable YOSSI LANDERS Attending Unavailable KRISTEN WILLIAM Attending Unavailable YOSSI LANDERS Referring Unavailable YOSSI LANDERS Attending Unavailable YOSSI LANDERS Attending Unavailable BEL OJEDA Attending Unavailable YOSSI LANDERS Attending Unavailable HEMSALUD HE Attending Unavailable YOSSI LANDERS Attending Unavailable YOSSI LANDERS Attending Unavailable YOSSI LANDERS Attending Unavailable HEMMERSALUD Attending Unavailable ALESSANDRO LEVI Attending Unavailable SALUD MASON Referring Unavailable ALESSANDRO LEVI Attending Unavailable YOSSI LANDERS Attending Unavailable YOSSI LANDERS Referring Unavailable YOSSI LANDERS Attending Unavailable YOSSI LANDERS Attending Unavailable Seble Mejia RN Unavailable Allergies Allergy Classification Reported Allergen(s) Allergy Type Date of Onset Reaction(s) Facility (20 sources) Naproxen; 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: [Aleve TABS] Drug Allergy 1 Edema (finding), Unknown (qualifier value), Swelling [facility] [employer] DO Work Phone: Comment on above: Gogo oral edema (7 sources) rofecoxib; 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: [Vioxx] Drug Allergy Anaphylaxis [facility] Repository (1 source) Benztropine Drug Allergy 1 [facility] Repository (1 source) Naproxen Drug Allergy 3 [facility] Repository (3 sources) Naproxen; 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: [naproxen] Drug Allergy 1 [facility] Rep[facility] (1 source) rofecoxib Drug Allergy 3 [facility] Rep[facility] (20 sources) Benztropine; 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: [benztropine] Drug Allergy 0 Other, Hallucinations (finding), Unknown (qualifier value) [facility] (20 sources) Benztropine; 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: [Benztropine Mesylate] Drug Allergy 0 Hallucinations [facility] Work Phone: (3 sources) rofecoxib; 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: [rofecoxib] Drug Allergy Unknown (qualifier value) [facility] (20 sources) rofecoxib Drug Allergy 4 [facility] Medications Current Medications Medication Drug Class(es) Dates Sig (Normalized) Sig (Original) acetaminophen 325 mg / HYDROcodone bitartrate 7.5 mg oral tablet (20 sources) Opioid Agonist Start: 08-08-2024 End: 09-07-2024 take 1 tablet by mouth every six hours for pain HYDROcodone-acetami nophen ([place]) 7.5-325 MG tablet Indications: Degenerative lumbar spinal stenosis Take 1 tablet by mouth every 6 (six) hours if needed for severe pain 120 tablet 08/08/2024 09/07/2024 Active Start: 06-01-2024 End: 08-06-2024 take 1 tablet by mouth every six hours for pain HYDROcodone-acetaminophen ([place]) 7.5-32 5 MG tablet Indications: Degenerative lumbar spinal stenosis Take 1 tablet by mouth every 6 (six) hours if needed for severe pain 120 tablet 07/04/2024 08/06/2024 Discontinued (Reorder) Start: 03-02-2024 take 1 tablet by sky th every six hours for pain HYDROcodone-acetaminophen ([place]) 7.5-32 5 MG tablet Indications: Degenerative lumbar spinal stenosis Take 1 tablet by mouth every 6 (six) hours if needed for severe pain 120 tablet 03/02/2024 Active Start: 01-28-2024 End: 07-01-2024 take 1 tablet by mouth every six hours for pain HYDROcodone-acetaminophen ([place]) 7.5-32 5 MG tablet Indications: Degenerative lumbar spinal stenosis Take 1 tablet by mouth every 6 (six) hours if needed for severe pain 120 tablet 06/01/2024 07/01/2024 Active Start: 07-01-2023 End: 08-03-2023 take 1 tablet by mouth every six hours for pain HYDROcodone-acetaminophen ([place]) 7.5-32 5 MG tablet Indications: Degenerative lumbar spinal stenosis [...] Ordered: 14-Oct-2021 DO Start : 14-Oct-2021 Active albuterol 0.83 mg/ml inhalation solution (20 sources) beta2-Adrenergic Agonist Start: 12-21-2023 take 2.5 mg by inhalation every six hours as needed albuterol 0.083% Inh Sabrina 3 mL 2.5 mg, 3 mL, Inhalation, q6hr Shortness of breath or wheezing, Refill(s) 12, Q6H and PRN Start Date: 12/21/23 Status: Ordered albuterol (2.5 M G/3ML) 0.083% nebulizer solution Take 2.5 mg by nebulization every 8 (eight) hours if needed. Active take 2 puff(s) by in halation every four hours albuterol HFA (ProAir HFA) 90 mcg/act inhaler Inhale 2 puffs every 4 (four) hours if needed. Active Albuterol (Eqv-ProAir HFA) 90 mcg/inh inhalation aerosol (3 sources) Start: 12-21-2023 take 1 puff(s) by inhalation every six hours Albuterol (Eqv-ProAir HFA) 90 mcg/inh inhalation aerosol puff(s), Inhalation, q6hr, Refill(s) 0, Shortness of breath or wheezing Start Date: 12/21/23 Status: Ordered Start: 12-21-2023 take 1 puff(s) by in halation every six hours Albuterol (Eqv-ProAir HFA) 90 mcg/inh inhalation aerosol puff(s), Inhalation, q6hr, Refill(s) 0 Start Date: 12/21/23 Status: Ordered ALPRAZolam 0.25 mg oral tablet (20 sources) Benzodiazepine Start: 08-08-2024 End: 09-07-2024 take 1 tablet by mouth twice daily as needed for anxiety ALPRAZolam (Xanax) 0.25 MG tablet Indications: Depression with anxiety Take 1 tablet (0.25 mg) by mouth 2 (two) times a day as needed for anxiety 60 tablet 08/08/2024 09/07/2024 Active Start: 06-01-2024 End: 08-06-2024 take 1 tablet by mouth twice daily as needed for anxiety ALPRAZolam (Xanax) 0.25 MG tablet Indications: Depression with anxiety Take 1 tablet (0.25 mg) by mouth 2 (two) times a day as needed for anxiety 60 tablet 07/04/2024 08/06/2024 Discontinued (Reorder) Start: 03-02-2024 take 1 tablet by sky th twice daily as needed for anxiety ALPRAZolam (Xanax) 0.25 MG tablet Indications: Depression with anxiety Take 1 tablet (0.25 mg) by mouth 2 (two) times a day as needed for anxiety 60 tablet 03/02/2024 Active Start: 01-28-2024 End: 07-01-2024 take 1 tablet by mouth twice daily as needed for anxiety ALPRAZolam (Xanax) 0.25 MG tablet Indications: Depression with anxiety Take 1 tablet (0.25 mg) by mouth 2 (two) times a day as needed for anxiety 60 tablet 06/01/2024 07/01/2024 Active Start: 07-01-2023 End: 08-03-2023 take 1 tablet [...] aspirin 81 mg delayed release oral tablet (20 sources) Platelet Aggregation Inhibitor, Nonsteroidal Anti-inflammatory Drug Start: 12-21-2023 take 1 tablet by mouth once daily aspirin 81 mg Oral EC Tab 81 mg = 1 tab(s), Oral, Daily, Refills(s) 0, Blood Thinner Start Date: 12/21/23 Status: Ordered atorvastatin 40 mg oral tablet (20 sources) HMG-CoA Reductase Inhibitor Start: 12-21-2023 atorvastatin (Lipitor) 40 MG tablet Indications: Mixed hyperlipidemia (CMS/HCC) TAKE 1 TABLET EVERY MORNING 90 tablet 3 02/09/2024 Active Start: 11-24-2022 End: 11-24-2023 take 1 tablet [...] 90 Refills: 3 Ordered: 15-Oct-2021 Libra VALDEZ, Xochitl Start : 21-Aug-2021 Active Blood Glucose Monitoring Sup pl (ONE TOUCH ULTRA 2) w/Device kit (20 sources) Start: 11-05-2022 Blood Glucose Monitoring Suppl (ONE TOUCH ULTRA 2) w/Device kit Inject under the skin 1 (one) time each day. 11/05/2022 Active Start: 11-05-2022 Blood Glucose Monitoring Suppl (ONE [...] Ordered: 19-Aug-2021 DO Start : 17-Aug-2021 Active 120 actuat budesonide 0.16 mg/actuat / formoterol fumarate 0.0048 mg/actuat / glycopyrrolate 0.009 mg/actuat metered dose inhaler (20 sources) Corticosteroid, beta2-Adrenergic Agonist Start: 05-02-2024 End: 05-02-2025 take 2 puff(s) by inhalation in the morning Oghhshb-Civpjtrnemb-Pauwiqltdy (Breztri Aerosphere) 160-9-4.8 MCG/ACT aerosol Indications: Panlobular emphysema (CMS/HCC) Inhale 2 puffs in the morning and 2 puffs before bedtime. 10.7 g 11 05/02/2024 05/02/2025 Active smoking cessation 12 hr buPROPion hydrochloride 150 mg extended release oral tablet (20 sources) Aminoketone Start: 01-25-2024 End: 06-10-2024 take 1 tablet by mouth every twelve hours in the morning buPROPion (Zyban) 150 MG 12 hr tablet Indications: Depression with anxiety Take 1 tablet (150 mg) by mouth in the morning and 1 tablet (150 mg) before bedtime. 180 tablet 3 01/25/2024 06/10/2024 Discontinued (Ineffective) Start: 12-21-2023 take 1 mg by mouth twice daily buPROPion 150 mg ER Tab mg tab(s), Oral, BID, Refills(s) 0, Anxiety Start Date: 12/21/23 Status: Ordered Start: 11-24-2022 End: 11-24-2023 take 1 tablet [...] 01-May-2021 Active carvedilol 12.5 mg oral tablet (20 sources) alpha-Adrenergic Ana, beta-Adrenergic Ana Start: 12-16-2023 take 1 tablet by mouth in the morning carvedilol (Coreg) 12.5 MG tablet Indications: 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) TAKE 1 TABLET (12.5 MG) BY MOUTH IN THE MORNING AND 1 TABLET (12.5 MG) BEFORE BEDTIME. 180 tablet 3 12/16/2023 Active Start: 01-08-2023 take 1 tablet by sky th twice daily at mealtime carvedilol (Coreg) 12.5 [...] Quantity: 180 Refills: 3 Ordered: 15-Oct-2021 Xochitl Hernandez MD Start : 14-Jan-2021 Active ciprofloxacin 500 mg oral tablet (2 sources) Quinolone Antimicrobial Start: 06-10-2024 End: 06-17-2024 take 1 tablet by mouth in the morning ciprofloxacin (Cipro) 500 MG tablet Indications: COPD with acute exacerbation (CMS/HCC) , Acute cystitis without hematuria Take 1 tablet (500 mg) by mouth in the morning and 1 tablet (500 mg) before bedtime. Do all this for 7 days. 14 tablet 06/10/2024 06/17/2024 Active docusate sodium 100 mg oral capsule (20 sources) Start: 08-03-2023 take 1 capsule by mouth in the morning [facility] Stool Softener 100 MG capsule Take 100 mg by mouth in the morning and 100 mg before bedtime. 08/03/2023 Active DULoxetine 60 mg delayed release oral capsule (20 sources) Serotonin and Norepinephrine Reuptake Inhibitor Start: 12-16-2023 DULoxetine (Cymbalta) [address] capsule Indications: Depression with anxiety TAKE 1 CAPSULE EVERY MORNING 90 capsule 3 12/16/2023 Active Start: 11-24-2022 End: 11-24-2023 take 1 capsule by mouth in the morning DULoxetine (Cymbalta) [address] capsule Indications: Depression with anxiety Take 1 capsule (60 mg) by mouth in the morning. 90 capsule 3 11/24/2022 11/24/2023 Active Start: 07-30-2021 take 1 capsule by [facility] once daily DULoxetine HCl - 60 MG Oral Capsule Delayed Release Particles TAKE 1 CAPSULE BY MOUTH EVERY DAY Quantity: 90 Refills: 0 Ordered: 30-Jul-2021 DO Start : 30-Jul-2021 Active duloxetine 60 mg Cap-DR (3 sources) Start: 12-21-2023 duloxetine 60 mg Cap-DR Oral, BID, Refills(s) 0, Depression Start Date: 12/21/23 Status: Ordered Start: 12-21-2023 duloxetine 60 mg Cap-DR Oral, Refills(s) 0 Start Date: 12/21/23 Status: Ordered eye vitamin supplement (Ocuvite Eye Health Formula) capsule (2 sources) take 1 capsule by mouth in the morning eye vitamin supplement (Ocuvite Eye Health Formula) capsule Take 1 capsule by mouth in the morning. 0 Active famotidine 20 mg oral tablet (20 sources) Histamine-2 Receptor Antagonist Start: End: take 1 tablet by mouth at bedtime famotidine (Pepcid) 20 MG tablet Indications: Sore throat TAKE 1 TABLET BY MOUTH AT BEDTIME 90 tablet 2024 Active fluticasone propionate 0.05 mg/actuat metered dose nasal spray (2 sources) Corticosteroid Start: End: take 1 spray(s) nasal route in the morning fluticasone (Flonase Allergy Relief) 50 MCG/ACT nasal spray Indications: Chronic allergic rhinitis Administer 1 spray into each nostril in the morning. 16 g 11 11/24/2022 11/24/2023 Active 30 actuat fluticasone furoate 0.1 mg/actuat / umeclidinium 0.0625 mg/actuat / vilanterol 0.025 mg/actuat dry powder inhaler (3 sources) Anticholinergic, Corticosteroid, beta2-Adrenergic Agonist Start: take 1 puff(s) by inhalation once daily Fluticasone-Umeclid in-Vilant (Trelegy Ellipta) 100-62.5-25 MCG/ACT aerosol powder Indications: Panlobular emphysema (CMS/HCC) Inhale 1 puff Daily 1 each 5 07/29/2024 Active furosemide 40 mg oral tablet (20 sources) Loop Diuretic Start: 024 furosemide (Lasix) 40 MG tablet Indications: Essential hypertension (CMS/HCC) TAKE 1 TABLET EVERY MORNING 90 tablet 3 02/09/2024 Active Start: 03-04-2021 take 1 tablet by sky th once daily Furosemide 40 MG Oral Tablet TAKE 1 TABLET BY MOUTH EVERY DAY Quantity: 90 Refills: 0 Ordered: 13-Aug-2021 DO Start : 04-Mar-2021 Active gabapentin 100 mg oral capsule (20 sources) Anti-epileptic Agent Start: 07-24-2023 End: 07-05-2025 take 2 capsules by mouth in the morning gabapentin (Neurontin) 100 MG capsule Indications: Type 2 diabetes mellitus with diabetic neuropathy, without long-term current use of insulin (CMS/HCC) Take 2 capsules (200 mg) by mouth in the morning and 2 capsules (200 mg) before bedtime. 360 capsule 3 07/05/2024 07/05/2025 Active Start: 10-18-2020 take 2 capsules by [...] Active levothyroxine sodium 0.1 mg oral tablet (20 sources) l-Thyroxine Start: take 1 tablet by mouth once daily levothyroxine 100 mcg (0.1 mg) Tab mcg tab(s), Oral, Daily, Refills(s) 0, Thyroid Start Date: 12/21/23 Status: Ordered Start: 12-16-2023 End: 12-15-2024 take 1 tablet by mouth before mealtime levothyroxine (Synthroid, Levoxyl) 100 MCG tablet Indications: Acquired hypothyroidism (CMS/HCC) TAKE 1 TABLET (100 MCG) BY MOUTH IN THE MORNING. TAKE BEFORE MEALS. 90 tablet 3 12/16/2023 12/15/2024 Active Start: 11-24-2022 End: 11-24-2023 take 1 tablet by mouth before mealtime [...] Ordered: 12-Aug-2021 DO Start : 12-Aug-2021 Active linaclotide 0.29 mg oral capsule (20 sources) Guanylate Cyclase-C Agonist Start: 12-21-2023 linaCLOtide (Linzess ) 290 MCG capsule Take by mouth 12/21/2023 Active Start: 12-21-2023 take 1 ug by mouth once daily Linzess 290 mcg oral capsule mcg cap(s), Oral, Daily, Refills(s) 0, Constipation Start Date: 12/21/23 Status: Ordered Start: 01-02-2022 take 1 capsule by mo [facility] once daily Linzess 290 MCG Oral Capsule TAKE 1 CAPSULE BY MOUTH EVERY DAY FOR 90 DAYS Quantity: 90 Refills: 0 Ordered: 02-Jan-2022 DO Start : 02-Jan-2022 Active lisinopril 5 mg oral tablet (20 sources) Angiotensin Converting Enzyme Inhibitor Start: 12-21-2023 lisinopril 5 MG tabl et Indications: Essential hypertension (CMS/HCC) TAKE 1 TABLET EVERY MORNING 90 tablet 3 02/09/2024 Active Start: 11-24-2022 End: 07-27-2023 take 1 tablet by mouth in the morning lisinopril 5 MG tablet Indications: Essential hypertension (CMS/HCC) Take 1 tablet (5 mg) by mouth in the morning. 100 tablet 3 07/27/2023 Active Start: 05-12-2021 take 1 tablet by sky th once daily Lisinopril 5 MG Oral Tablet TAKE 1 TABLET BY MOUTH EVERY DAY Quantity: 90 Refills: 3 Ordered: 15-Oct-2021 Libra VALDEZ, Xochitl Start : 12-May-2021 Active loratadine 10 mg oral tablet (20 sources) Start: 05-02-2024 End: 05-02-2024 take 1 tablet by mouth once daily loratadine (Claritin) 10 MG tablet Indications: Allergic rhinitis, unspecified Take 1 tablet (10 mg) by mouth Daily 100 tablet 3 05/02/2024 Active Start: 04-09-2023 take 1 tablet by sky th once daily loratadine (Claritin) 10 MG tablet [...] Active meclizine hydrochloride 12.5 mg oral tablet (20 sources) Antiemetic Start: 09-10-2017 take 1 tablet by mouth three times daily as needed for dizziness meclizine (Antivert) 12.5 MG tablet Take 12.5 mg by mouth 3 (three) times a day as needed for dizziness. 09/10/2017 Active methylPREDNISolone (2 sources) Corticosteroid Start: 06-10-2024 End: 06-17-2024 methylPREDNISolone (Medrol Dospak) 4 MG tablets Indications: COPD with acute exacerbation (CMS/HCC) Follow schedule on package instructions 21 tablet 06/10/2024 06/17/2024 Active Multiple Vitamins-Minerals (OCUVITE ADULT 50+ PO) (20 sources) Multiple Vitamins-Minerals (OCUVITE ADULT 50+ PO) Take by mouth 1 (one) time each day. Active Multiple Vitamin s-Minerals (OCUVITE ADULT 50+ PO) Take by mouth 1 (one) time each day. 0 Active mupirocin 0.02 mg/mg topical ointment (20 sources) RNA Synthetase Inhibitor Antibacterial Start: 01-11-2024 mupirocin (Bactroban) 2 % ointment 01/11/2024 Active nitroglycerin 0.4 mg sublingual tablet (20 sources) Nitrate Vasodilator Start: 12-21-2023 nitroglycerin 0.4 mg sublingual Tab 0.4 mg = 1 tab(s), SubLingual, q5min, PRN for chest pain, # 100 tab(s), Refills(s) 0 Start Date: 12/21/23 Status: Ordered nystatin 100 unt/mg topical ointment (20 sources) Polyene Antifungal nystatin (Myc ostatin) ointment every 12 (twelve) hours. Active omeprazole 40 mg delayed release oral capsule (20 sources) Proton Pump Inhibitor Start: 12-16-2023 take 1 capsule by mouth before mealtime omeprazole (PriLOSEC) [address] capsule Indications: Gastroesophageal reflux disease without esophagitis TAKE 1 CAPSULE (40 MG) BY MOUTH IN THE MORNING. TAKE BEFORE MEALS. 90 capsule 3 12/16/2023 Active Start: 12-10-2022 omeprazole (Pr iLOSEC) [address] capsule Indications: Gastroesophageal reflux disease without esophagitis TAKE 1 CAPSULE BY MOUTH EVERY DAY 30 MINUTES BEFORE MORNING MEAL FOR 30 DAYS 90 capsule 3 12/10/2022 Active ondansetron 4 mg oral tablet (20 sources) Serotonin-3 Receptor Antagonist Start: 08-08-2024 End: 09-07-2024 take 2 tablets by mouth every eight hours as needed for nausea and vomiting and nausea and nausea ondansetron (Zofran) 4 MG tablet Indications: Nausea Take 2 tablets (8 mg) by mouth every 8 (eight) hours if needed for nausea or vomiting 60 tablet 1 08/08/2024 09/07/2024 Active Start: 07-05-2024 End: 08-06-2024 take 2 tablets by mouth every eight hours as needed for nausea and vomiting and nausea and nausea ondansetron (Zofran) 4 MG tablet Indications: Nausea Take 2 tablets (8 mg) by mouth every 8 (eight) hours if needed for nausea or vomiting 60 tablet 1 07/05/2024 08/06/2024 Discontinued (Reorder) Start: 05-30-2024 End: 06-29-2024 take 2 tablets by mouth every eight hours as needed for nausea and vomiting and nausea and nausea ondansetron (Zofran) 4 MG tablet Indications: Nausea Take 2 tablets (8 mg) by mouth every 8 (eight) hours if needed for nausea or vomiting 60 tablet 1 05/30/2024 06/29/2024 Active Start: 2024 End: 05-27-2024 take 2 tablets by mouth every eight hours as needed for nausea and vomiting and nausea and nausea ondansetron (Zofran) 4 MG tablet Indications: Nausea Take 2 tablets (8 mg) by mouth every 8 (eight) hours if needed for nausea or vomiting 60 tablet 1 2024 05/27/2024 Active Start: 02-23-2024 End: 04-24-2024 take 2 tablets by mouth every eight hours as needed for nausea and vomiting and nausea and nausea ondansetron (Zofran) 4 MG tablet Indications: Nausea Take 2 tablets (8 mg) by mouth every 8 (eight) hours if needed for nausea or vomiting 60 tablet 1 03/25/2024 04/24/2024 Active Start: 01-22-2024 End: 02-21-2024 take 2 tablets by mouth every eight hours as needed for nausea and vomiting and nausea and nausea ondansetron (Zofran) 4 MG tablet Indications: Nausea Take 2 tablets (8 mg) by mouth every 8 (eight) hours if needed for nausea or vomiting 60 tablet 1 01/22/2024 02/21/2024 Active Miralax (3 sources) Osmotic Laxative Start: 12-21-2023 take 1 g by mouth once daily MiraLax gm, Oral, Daily, Refill(s) 0 Start Date: 12/21/23 Status: Ordered Start: 11-24-2022 End: 11-24-2023 polyethylene glycol, PEG, 33 50 (MiraLax) 17 GM/SCOOP powder Indications: Chronic constipation [...] and 1 puff before bedtime. 0 Active Problems Active Problems Problem Classification Problem Date Documented Da te Episodic/Chronic Allergic reactions (1 source) Allergy status to other drugs, medicaments and biological substances status; 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: [ALLERGY STATUS OTH RX MED AND BIO SUBST] Onset: 10-23-2022 Episodic Anxiety disorders (20 sources) Anxiety disorder, unspecified; 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: [Mixed anxiety and depressive disorder] Onset: 10-23-2022 11-04-2022 Chronic Chronic kidney disease (1 source) Chronic kidney disease, unspecified; 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: [CHRONIC KIDNEY DISEASE UNSPECIFIED] Onset: 08-25-2022 Chronic Chronic obstructive pulmonary disease and bronchiectasis (20 sources) Chronic obstructive lung disease; 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: [Chronic airway obstruction, not elsewhere classified] Onset: 07-16-2016 Resolved: 12-14-2022 11-04-2022 Chronic Complications of surgical procedures or medical care (1 source) Postprocedural hypothyroidism; 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: [POSTPROCEDURAL HYPOTHYROIDISM] Onset: 08-25-2022 Chronic Congestive heart failure; nonhypertensive (20 sources) Heart failure, unspecified; 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: [Chronic combined systolic and diastolic heart failure] Onset: 04-30-2015 Resolved: 12-14-2022 11-04-2022 Chronic Coronary atherosclerosis and other heart disease (20 sources) Disorder of coronary artery; 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: [Coronary atherosclerosis of unspecified type of vessel, [place] or graft] Onset: 04-14-2022 11-04-2022 Chronic Diabetes mellitus with complications (20 sources) Type 2 diabetes mellitus with diabetic chronic kidney disease; 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: [Type 2 diabetes mellitus with diabetic peripheral angiopathy without gangrene] Onset: 02-23-2019 11-04-2022 Chronic Diabetes mellitus without complication (5 sources) Diabetes mellitus; 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: [Diabetes mellitus without mention of complication, type II or unspecified type, not stated as uncontrolled] Chronic Disorders of lipid metabolism (20 sources) Hyperlipidemia; 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: [Other and unspecified hyperlipidemia] Onset: 10-23-2022 11-04-2022 Chronic E Codes: Fall (2 sources) Unspecified fall, initial encounter; 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: [Fall on same level from slipping, tripping and stumbling with subsequent striking against unspecified object, initial encounter] Onset: 08-25-2022 Episodic Esophageal disorders (20 sources) Gastro-esophageal reflux disease without esophagitis; 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: [Gastroesophageal reflux disease] Onset: 06-16-2022 Chronic Essential hypertension (20 sources) Hypertensive disorder; 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: [Unspecified essential hypertension] Onset: 11-04-2022 07-27-2023 Chronic Hypertension with complications and secondary hypertension (20 sources) 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 4 chronic kidney disease, or unspecified chronic kidney disease; 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: [Hypertensive chronic kidney disease with stage 1 through stage 4 chronic kidney disease, or unspecified chronic kidney disease] Onset: 08-25-2022 11-04-2022 Chronic Menopausal disorders (1 source) Hormone replacement therapy; 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: [HORMONE REPLACEMENT THERAPY] Onset: 10-23-2022 Episodic Mood disorders (20 sources) Recurrent major depressive episodes, moderate ; 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: [Major depressive disorder, recurrent, moderate] Onset: 11-04-2022 11-04-2022 Chronic Mood disorders (1 source) Mood disorders; 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: [DEPRESSION UNSPECIFIED] Onset: 10-23-2022 Mycoses (6 sources) Pain in toe; 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: [Tinea unguium] 04-22-2024 Episodic Nausea and vomiting (1 source) Nausea; 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: [Nausea] 08-06-2024 Episodic Occlusion or stenosis of precerebral arteries (20 sources) Bilateral stenosis of carotid arteries; 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: [Occlusion and stenosis of carotid artery without mention of cerebral infarction] Onset: 04-14-2022 11-04-2022 Chronic Open wounds of head; neck; and trunk (5 sources) Laceration without foreign body of other part of head, initial encounter; 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: [LAC W/O FB OTH PART HEAD INIT ENC] Onset: 08-24-2022 Episodic Osteoarthritis (20 sources) Unspecified osteoarthritis, unspecified site; 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: [Osteoarthritis of multiple joints ] Onset: 08-25-2022 11-04-2022 Chronic Other aftercare (1 source) [employer]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; 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: [ASSISTED CURRENT USE OF ASPIRIN] Onset: 10-23-2022 Episodic Other aftercare (1 source) Other longterm (current) drug therapy; 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: [OTH ASSISTED CURRENT DRUG THERAPY] Onset: 10-23-2022 Episodic Other aftercare (1 source) [facility] (current) use of inhaled steroids; 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: [ASSISTED USE OF INHALED STEROIDS] Onset: 10-23-2022 Episodic Other and ill-defined heart disease (20 sources) Left ventricular hypertrophy; 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: [Cardiomegaly] Onset: 11-04-2022 11-04-2022 Chronic Other and ill-defined heart disease (20 sources) Cardiomegaly; 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: [Cardiomegaly] Onset: 04-30-2015 12-14-2022 [...] Episodic Other diseases of bladder and urethra (20 sources) Overactive bladder; 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: [Overactive bladder] Onset: 11-04-2022 11-04-2022 Chronic Other diseases of veins and lymphatics (1 source) Lymphedema, not elsewhere classified; 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: [LYMPHEDEMA NOT ELSEWHERE CLASSIFIED] Onset: 10-23-2022 Chronic Other diseases of veins and lymphatics (6 sources) Vascular insufficiency; 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: [Venous insufficiency (chronic) (peripheral)] 04-22-2024 Episodic Other gastrointestinal disorders (1 source) Dysphagia; 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: [Other dysphagia] Onset: 12-21-2023 Episodic Other gastrointestinal disorders (3 sources) Esophageal dysphagia 12-21-2023 Episodic Other hereditary and degenerative nervous system conditions (20 sources) Impaired cognition; 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: [Mild cognitive impairment, so stated] Onset: 11-04-2022 11-04-2022 Chronic Other lower respiratory disease (5 sources) Dyspnea; 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: [Other respiratory abnormalities] Episodic Other lower respiratory disease (1 source) Personal history of pneumonia (recurrent); 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: [PERSONAL HX OF PNEUMONIA RECURRENT] Onset: 10-23-2022 Episodic Other nervous system disorders (1 source) Encephalopathy, unspecified; 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: [ENCEPHALOPATHY UNSPECIFIED] Onset: 10-23-2022 Chronic Other nervous system disorders (20 sources) Neuropathy; 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: [Polyneuropathy, unspecified] Onset: 11-04-2022 11-04-2022 Chronic Other nutritional; endocrine; and metabolic disorders (5 sources) Severe obesity; 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: [Morbid obesity] Chronic Other nutritional; endocrine; and metabolic disorders (20 sources) Body mass index 30+ - obesity; 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: [Obesity, unspecified] Onset: 11-04-2022 11-04-2022 Chronic Other screening for suspected conditions (not mental disorders or infectious disease) (4 sources) Imaging of abdomen abnormal; 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: [Abnormal findings on diagnostic imaging of other abdominal regions, including retroperitoneum] Onset: 12-21-2023 Episodic Other upper respiratory disease (20 sources) Allergic rhinitis; 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: [Allergic rhinitis, unspecified] Onset: 11-04-2022 11-04-2022 Chronic Gogo-; endo-; and myocarditis; cardiomyopathy (except that caused by tuberculosis or sexually transmitted disease) (20 sources) Cardiomyopathy; 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: [Other primary cardiomyopathies] Onset: 11-11-2021 11-04-2022 Chronic Peripheral and visceral atherosclerosis (20 sources) Peripheral vascular disease, unspecified; 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: [Peripheral vascular disease] Onset: 08-25-2022 11-04-2022 Chronic Pneumonia (except that caused by tuberculosis or sexually transmitted disease) (1 source) Pneumonia, unspecified organism; 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: [PNEUMONIA UNSPECIFIED ORGANISM] Onset: 10-23-2022 Episodic Residual codes; unclassified (1 source) Hypersomnia; 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: [Hypersomnia, unspecified] 07-29-2024 Chronic Residual codes; unclassified (2 sources) Swelling - [...] HX MALIGNANT NEOPLASM OVARY] Onset: 10-23-2022 Episodic Residual codes; unclassified (1 source) Past history of procedure; 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: [Other specified postprocedural states] Onset: 12-21-2023 Episodic Retinal detachments; defects; vascular occlusion; and retinopathy (20 sources) Exudative age-related macular degeneration; 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: [Exudative age-related macular degeneration, unspecified eye, stage unspecified] Onset: 11-04-2022 11-04-2022 Chronic Spondylosis; intervertebral disc disorders; other back problems (20 sources) Degenerative lumbar spinal stenosis; 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: [Spinal stenosis, lumbar region without neurogenic claudication] Onset: 11-04-2022 11-04-2022 Episodic Thyroid disorders (20 sources) Hypothyroidism, unspecified; 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: [Nontoxic multinodular goiter] Onset: 01-07-2022 Chronic Unclassified (1 source) CHRN KIDNEY DISEASE STG 3 UNSP; 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: [CHRN KIDNEY DISEASE STG 3 UNSP] Onset: 10-23-2022 Unclassified (1 source) CONTACT W/AND (SUSP) EXPOS COVID-19; 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: [CONTACT W/AND (SUSP) EXPOS COVID-19] Onset: 10-23-2022 Urinary tract infections (2 sources) Acute cystitis; 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: [Acute cystitis without hematuria] 06-10-2024 Episodic Past or Other Problems Problem Classification Problem Date Documented Da te Episodic/Chronic Anal and rectal conditions (20 sources) Disorder of rectum; 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: [Disease of anus and rectum, unspecified] Onset: 08-10-2023 08-10-2023 Episodic Biliary tract disease (20 sources) Cholelithiasis without obstruction; 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: [Calculus of gallbladder without cholecystitis without obstruction] Onset: 12-21-2023 Episodic Other connective tissue disease (20 sources) Extrapyramidal sign; 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: [Other symptoms and signs involving the nervous system] Onset: 11-04-2022 11-04-2022 Episodic Other connective tissue disease (2 sources) Pain of toes of bilateral feet; 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: [Pain in right toe(s)] 02-18-2024 Episodic Other gastrointestinal disorders (20 sources) Chronic constipation; 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: [Other constipation] Onset: 11-04-2022 11-04-2022 Episodic Other lower respiratory disease (1 source) Dyspnea, unspecified; 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: [Dyspnea, unspecified] Onset: 11-11-2021 Episodic Other nervous system disorders (20 sources) Ataxic gait; 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] Onset: 11-04-2022 11-04-2022 Episodic Other nervous system disorders (20 sources) Ataxia; 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: [Ataxia, unspecified] Onset: 10-23-2017 12-14-2022 Episodic Other nutritional; endocrine; and metabolic disorders (20 sources) Morbid obesity; 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: [Morbid (severe) obesity due to excess calories] Onset: 07-04-2019 Resolved: 12-14-2022 12-14-2022 Chronic Other skin disorders (4 sources) Localized swelling, mass and lump, neck; 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: [LOCALIZED SWELLING MASS AND LUMP NECK] Onset: 12-30-2021 Episodic Other skin disorders (2 sources) Thickened nails; 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: [Onychogryphosis] 02-18-2024 Episodic Other upper respiratory infections (20 sources) Sore throat symptom; 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: [Acute pharyngitis, unspecified] Onset: 10-26-2023 10-26-2023 Episodic Screening and history of mental health and substance abuse codes (20 sources) Ex-smoker; 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: [Personal history of tobacco use] Onset: 08-15-2017 Resolved: 12-14-2022 12-14-2022 Episodic Comment on above: quit 1996, 2ppd; Results Test Name Value Interpretation Reference Range Facility Pulmonary function reporton 05-04-2024 PFT Interpretation 84-year-old female referred by Dr. Landers for pulmonary function test with a diagnosis of emphysema. She is a former smoker. Review of her spirometry does demonstrate evidence of obstructive changes. There is no significant response to bronchodilator therapy. There is no evidence of hyperinflation. There is evidence of air trapping with an elevated RV/TLC ratio. Her diffusion capacity is within normal range. Overall this set of pulmonary function test does demonstrate evidence of severe obstructive ventilatory defect without significant bronchodilator response. There is no evidence of coexisting restrictive ventilatory defect. Clinical correlation is recommended. [facility] Pulmonary function reportOrd ered By: Kristen William on 05-04-2024 [facility] Work Phone: Pulmonary function reporton 05-03-2024 Radiology Study observation (narrative) [facility] Laboratory - Hematology and Cell countson 05-02-2024 HbA1c (Bld) [Mass fraction] 5.5 % [facility] No Panel Informationon 05-02 [facility] Surgical Pathology Reporton 03-10-2024 Surgical Pathology Report [facility] [address] [place] [address]- Surgical Pathology Report Collected Date/Time: 03/08/2024 10:15 EDT Pathologist: Meng Vyas MD Received Date/Time: 03/08/2024 11:54 EDT Amaris VALDEZ, Mandi Glez MD, Mandi Cohen Surgical Pathology Report - 03/10/2024 13:59 EDT - Auth (Verified) Final Diagnosis A: RECTUM, POLYPECTOMY: - Benign colonic mucosa with lymphoid aggregates. - No evidence of hyperplastic or adenomatous polyp identified. B: COLON, SIGMOID, POLYPECTOMY: - Tubular adenoma. (Electronic Signature) Yan. Lilliam MD 03/10/2024 13:59 Clinical Information Pre-Op Diagnosis: Abnormal CT scan Procedure: Colonoscopy Post-Op Diagnosis: 1. Six colon polyps - removed 2. Redundant colon with excessive mucus 3. Diverticulosis 4. Internal hemorrhoids Specimen(s) Received A.Rectal polyp B.Sigmoid colon polyps Gross Description A: Received in formalin labeled with patient name, number, and rectal polyp are two fragments of combs tissue measuring 0.1 to 0.6 cm. Specimen is entirely submitted in one cassette. B: Received in formalin labeled with patient name, number, and sigmoid colon polyps are multiple fragments of combs/pink tissue ranging from 0.1 to 0.8 cm in greatest dimension and measuring in aggregate 1.5 x 1 x 0.1 cm. Specimen is entirely submitted in one cassette. (DC) DC:[facility] Microscopic Description A&B: Microscopic examination performed unless gross only specified. Normal [facility] Comment on above: Performed By: #### [id number] #### [facility] [address] [place] [address] Main OR Intraoperative Recor don 03-09-2024 Main OR Intraoperative Record Main OR Intraoperative Record IntraOp Document Type FT Summary Primary Physician: Mandi Glez MD Finalized Date/Time: 03/09/24 10:12:42 Pt. Name: JAQUELIN NORWOOD Jailyn/Sex: 1940 Female Med Rec #: [id number] Physician: Mandi Glez MD Financial #: [id number] Pt. Type: O Room/Bed: / Admit/Disch: 03/08/24 08:18:50 - 03/08/24 23:59:59 Institution: Case Times FT Entry 1 Patient Times In Room 03/08/24 09:48:00 Out Room 03/08/24 10:16:00 Procedure Times Start 03/08/24 09:54:00 Stop 03/08/24 10:13:00 Anesthesia Times Start 03/08/24 09:48:00 Stop 03/08/24 10:16:00 Time at [place] 03/08/24 10:03:00 Last Modified By: Tammy Santos RN 03/08/24 10:16:03 General Comments: 03/09/24 Chart opened to review and send charges [facility] CSFA Case Attendance FT Entry 1 Entry 2 Entry 3 Case Attendee Sanjay VALDEZ, Luciano Glez MD, Tammy New RN Role Performed Anesthesiologist of Surgeon - Primary Market Development Executive - Primary Record Time In 03/08/24 09:48:00 03/08/24 09:48:00 03/08/24 09:48:00 Time Out 03/08/24 10:16:00 03/08/24 10:16:00 03/08/24 10:16:00 Procedure COLONOSCOPY(.) COLONOSCOPY(.) COLONOSCOPY(.) Comments Last Modified By: Tom COTA, Tammy Santos RN, Tammy Fenton RN 03/08/24 10:16:04 03/08/24 10:16:04 03/08/24 10:16:04 Entry 4 Case Attendee Talia Fry CST Role Performed Scrub - Primary Time In 03/08/24 09:48:00 Time Out 03/08/24 10:16:00 Procedure COLONOSCOPY(.) Comments Last Modified By: Tammy Santos RN 03/08/24 10:16:04 Perioperative Protocols FT Pre-Care Text: Implements protective measures prior to operative or invasive procedure, confirms identity before the operative or invasive procedure, verifies operative procedure, surgical site, and laterality Entry 1 Procedure(s) COLONOSCOPY(.) Patient Identity Birthday, ID Band Verified (select at Check, Patient least 2): Participation Consents / H and P Anesthesia Consent, Operative Site N/A Verified H&P, Surgery/Procedure Marking Verified Consent Surgical Site No Laterality Verified n/a Verified Procedure Verified Yes Correct Patient Yes Position Verified Availability Equipment, Medication Prep Dry n/a Verified (If Applicable) PreOp Antibiotic No Time Out Sanjay VALDEZ, Luciano Leonard, Given Participants Amaris VALDEZ, Mandi Red, Tammy Santos RN, Schafer CST, Talia Bryant Time Out Complete 03/08/24 09:49:00 Outcomes Met? Yes Last Modified By: Tammy Santos RN 03/08/24 10:10:28 Post-Care Text: The patient is free from signs and symptoms of injury caused by extraneous objects Allergy Information FT Pre-Care Text: Verifies allergies Entry 1 Allergies Reviewed? Yes Allergies Reviewed Self/Patient With Outcomes Met? Yes Last Modified By: Tammy Santos RN 03/08/24 09:55:05 Post-Care Text: The patient received appropriate medication(s) safely administered during the perioperative period Surgical Procedures FT Entry 1 Procedure Description Procedure COLONOSCOPY Modifiers . Surgeon Description Colonoscopy with sigmoid colon polypectomy x4, rectal polypectomy Primary Procedure Yes Primary Surgeon Mandi Glez MD Start 03/08/24 09:54:00 Stop 03/08/24 10:13:00 Anesthesia Type None Surgical Service Gastroenterology Wound Class 2 - Clean-Contaminated Last Modified By: Tammy Santos RN 03/08/24 10:14:21 General Case Data FT Pre-Care Text: Classifies surgical wound, implements aseptic technique, initiates traffic control Entry 1 Case Information OR ENDO 1 FT Case Level Level 2 Wound Class 2 - Clean-Contaminated Specialty Gastroenterology ASA Class [address] SCAN Postop Same As Preop No Postop Diagnosis Sigmoid colon polyps Outcomes Met? Yes x4, rectal polyp, diverticulosis and internal hemorrhoids Last Modified By: Tammy Santos RN 03/08/24 10:16:11 Post-Care Text: The patient is free from signs and symptoms of infection Skin Assessment (Pre Procedure) FT Pre-Care Text: Implements protective measures to prevent skin/ tissue injury due to thermal or mechanical sources Evaluates for signs and symptoms of physical injury to skin and tissue Entry 1 Skin Integrity Intact, [place], Warm, & Skin Abnormality No Dry Outcomes Met? Yes Last Modified By: Tammy Santos RN 03/08/24 09:56:29 Post-Care Text: The patient is free from signs and symptoms of injury caused by extraneous objects Patient Positioning FT Pre-Care Text: Identifies physical alterations that require additional precautions for procedure-specific positioning, verifies presence of prosthetics or corrective devices, positions the patient, evaluates the patient for signs and symptoms of injury as a result of positioning Entry 1 Procedure COLONOSCOPY(.) Body Position Lateral, right side up Feet Uncrossed? Yes Left Arm Position Resting at Side Right Arm Position Resting (more content not included)... Normal [facility] Discharge Instructionson Discharge Instructions Discharge Instructions MARTINELIER YEHDORON Tim :1940 Visit Date:03/08/2024 Inpatient Discharge Instructions Your Care Team Admitting Physician - Mandi Glez MD Referring Physician - Mandi Glez MD. Reason for Your Visit ABNORMAL CT SCAN Your Diagnosis Diverticulosis Hemorrhoids, internal Polyp, sigmoid colon Rectal polyp Tests Performed Pathology Tissue Exam -- Results Pending -- Please visit your patient portal for your results or contact your primary care physician. This Is Your Medications List albuterol (Albuterol (Eqv-ProAir HFA) 90 mcg/inh inhalation aerosol) albuterol (albuterol 0.083% Inh Sabrina 3 mL) aspirin (aspirin 81 mg Oral EC Tab) atorvastatin (atorvastatin 40 mg Tab) buPROPion (buPROPion 150 mg ER Tab) carvedilol (carvedilol 12.5 mg Tab) duloxetine (duloxetine 60 mg Cap-DR) famotidine (famotidine 20 mg Tab) furosemide (furosemide 40 mg Tab) levothyroxine (levothyroxine 100 mcg (0.1 mg) Tab) linaclotide (Linzess 290 mcg oral capsule) lisinopril (lisinopril 5 mg Tab) nitroglycerin (nitroglycerin 0.4 mg sublingual Tab) omeprazole (omeprazole 40 mg Cap-DR) Procedure History Sigmoidoscopy (03/08/2024), Colonoscopy (02/03/2024), EGD - esophagogastroduodenoscopy (02/03/2024). Discharge Vitals Temperature (Temporal Artery) 36.3 ?C Heart Rate (Monitored) 82 Respiratory Rate 17 Blood Pressure 120/57 Height 165 cm Weight 87.3 kg What to do next New Follow Up Appointments after Discharge Follow Up with Amaris VALDEZ, WILBERTO Jean-Baptiste, MED When: Comments: Office will call to schedule follow up appointment and/or review any pending biopsy results Call for any problems. Where: [address] [place], [place] [address], [address] [place] [address]- [phone] Medications What How Much When Instructions Next Dose Unchanged albuterol (Albuterol (Eqv-ProAir HFA) 90 mcg/ inh inhalation aerosol) Inhalation Every 6 hours Unchanged albuterol (albuterol 0.083% Inh Sabrina 3 mL) 3 Milliliter Inhalation Every 6 hours as needed for Shortness of breath or wheezing Q6H and PRN Unchanged aspirin (aspirin 81 mg Oral EC Tab) 1 Tablets By Mouth Every day Unchanged atorvastatin (atorvastatin 40 mg Tab) By Mouth Every day Unchanged buPROPion (buPROPion 150 mg ER Tab) By Mouth 2 times a day Unchanged carvedilol (carvedilol 12.5 mg Tab) By Mouth 2 times a day Unchanged duloxetine (duloxetine 60 mg Cap-DR) By Mouth 2 times a day Unchanged famotidine (famotidine 20 mg Tab) By Mouth 2 times a day Unchanged furosemide (furosemide 40 mg Tab) 1 Tablets By Mouth Every day Unchanged levothyroxine (levothyroxine 100 mcg (0.1 mg) Tab) By Mouth Every day Unchanged linaclotide (Linzess 290 mcg oral capsule) By Mouth Every day Unchanged lisinopril (lisinopril 5 mg Tab) By Mouth Every day Unchanged nitroglycerin (nitroglycerin 0.4 mg sublingual Tab) 1 Tablets Sublingual Every 5 minutes as needed for for chest pain Unchanged omeprazole (omeprazole 40 mg Cap-DR) By Mouth Every day Allergies Benztropine Mesylate (Hallucinations, Unknown) Vioxx (Unknown) naproxen (Edema, Unknown) Problems Ongoing - Any problem that you are currently receiving treatment for. Abnormal CT of the abdomen Cholelithiasis Esophageal dysmotility Esophageal dysphagia History of gastric surgery Education Materials Colonoscopy Care After Surgery Please read the instructions outlined below and refer to this sheet in the next few weeks. These discharge instructions provide you with general information on caring for yourself after you leave the hospital. Your doctor may also give you specific instructions. While your treatment has been planned according to the most current medical practices available, unavoidable complications occasionally occur. If you have any problems or questions after discharge, please call your doctor. ACTIVITY You may resume your regular activity, but move at a slower pace for the next 24 hours. Take frequent rest periods for the next 24 hours. Walking will help get rid of the air and reduce the bloated feeling in your abdomen (belly). No driving for 24 hours (because of the anesthesia (medicine) used during the test). You may shower. Do not sign any important legal documents or operate any machinery for 24 hours (because of the anesthesia used during the test). NUTRITION Drink plenty of fluids. You may resume your normal diet as instructed by your doctor. Begin with a light meal and progress to your normal diet. Heavy or fried foods are harder to digest and may make you feel nauseated (sick to your stomach). Avoid alcoholic beverages for 24 hours or as instructed. MEDICATIONS You may resume your normal medications unless your doctor tells you otherwise. WHAT YOU CAN EXPECT TODAY Some feelings of bloating in the abdomen. Passage of more gas than usual. Spotting of blood in your stool or on the toilet paper. FOL (more content not included)... Normal [facility] Comment on above: Result Comment: Elec tronically Signed By: Shakila COTA, Yoanna\.br\Date and Time Signed: 03/08/24 10:37 EDT Main OR PACU I Recordon 02-20 Main OR PACU I Record Main OR PACU I Record PACU Phase I Document Type FT Summary Primary Physician: Mandi Glez MD Finalized Date/Time: 03/08/24 11:14:03 Pt. Name: JAQUELIN NORWOOD D.O.B./Sex: 1940 Female Med Rec #: [id number] Physician: Mandi Glez MD Financial #: [id number] Pt. Type: O Room/Bed: / Admit/Disch: 03/08/24 08:18:50 - Institution: Case Times PACU I FT Pre-Care Text: Identifies barriers to communication and implements measures to provide psychological support Develops individualized plan of care, and ensures continuity of care Maintains patient's dignity and privacy, and maintains patient confidentiality Identifies and reports philosophical, cultural, and spiritual beliefs and values Identifies individual values and wishes concerning care Implements aseptic technique, and administers prescribed antibiotic therapy and immunizing agents as ordered Evaluates postoperative tissue perfusion Implements thermoregulation measures, and monitors body temperature Evaluates postoperative respiratory status Evaluates postoperative cardiac status Evaluates postoperative neurological status Assesses pain control, collaborated in initiating patient-controlled analgesia and implements alternative methods of pain control Verifies allergies, administers prescribed medications and solutions, evaluates response to medications Entry 1 In PACU I 03/08/24 10:17:00 Discharge from PACU 03/08/24 10:47:00 I Outcomes Met? Yes Last Modified By: Yoanna Jhaveri RN 03/08/24 11:13:43 Post-Care Text: The patient demonstrates knowledge of the expected response to the operative or invasive procedure The patient's care is consistent with the individualized perioperative plan of care The patient's right to privacy is maintained The patient's value system, lifestyle, ethnicity, and culture are considered, respected, and incorporated into the perioperative plan of care The patient participates in decisions affecting his or her perioperative plan of care The patient is free from signs and symptoms of infection The patient has wound/tissue perfusion consistent with or improved from baseline levels established preoperatively The patient is at or returning to normothermia at the conclusion of the immediate postoperative period The patient's respiratory function is consistent with or improved from baseline levels established preoperatively The patient's cardiovascular status is consistent with or improved from baseline levels established preoperatively The patient's cardiovascular status is consistent with or improved from baseline levels established preoperatively The patient demonstrates and/or reports adequate pain control throughout the perioperative period The patient received appropriate medication(s), safely administered during the perioperative period Acuity Level PACU I FT Entry 1 Start Time 03/08/24 10:17:00 Stop Time 03/08/24 10:47:00 Acuity Level Acuity Level I Last Modified By: Yoanna Jhaveri RN 03/08/24 11:13:58 Finalized By: Yoanna Jhaveri RN Document Signatures Signed By: Yoanna Jhaveri RN 03/08/24 11:14 Normal [facility] Main OR Preoperative Recordo n 03-08-2024 Main OR Preoperative Record Main OR Preoperative Record Holding Area Document Type FT Summary Primary Physician: Mandi Glez MD Finalized Date/Time: 03/08/24 08:51:04 Pt. Name: JAQUELIN NORWOOD Glenroy Glaser/Sex: 1940 Female Med Rec #: [id number] Physician: Mandi Glez MD Financial #: [id number] Pt. Type: O Room/Bed: / Admit/Disch: 03/08/24 08:18:50 - Institution: Case Times Holding FT Pre-Care Text: Verifies consent for planned procedure, identifies individual values and wishes concerning care, includes family members in perioperative teaching Secures patient's records' belongings, and valuables, maintains patient's dignity and privacy, and maintains patient confidentiality Entry 1 In Holding 03/08/24 08:25:00 Outcomes Met? Yes Last Modified By: Ysabel Kelly RN 03/08/24 08:49:33 Post-Care Text: The patient participates in decisions affecting his or her perioperative plan of care The patient's right to privacy is maintained Surgery Checklist FT Entry 1 Patient Birthday, ID Band Procedure History and Physical, Identification: Check, Patient Verification: Surgical Consent, With Participation Patient NPO after Midnight: Yes Results Reviewed Clear/yellow Comments: Personal Items: Dentures, Glasses Personal Items Glassess, dentures Comment: Limitations: Vision, hard hearing, Complaints of Pain: No assistance with ambulation Pain Comment: Denies Operative Site n/a Marking: Availability Equipment Verified: Does Patient Smoke No Patient states Yes Comment - Adult Daughter postop adult Supervision supervision available Case Cancelled in No Holding Area see comments below for reason Last Modified By: Ysabel Kelly RN 03/08/24 08:50:50 General Comments: Pt completed prep at 0530 and remained NPO since/ELENARN Finalized By: Ysabel Kelly RN Document Signatures Signed By: Ysabel Kelly RN 03/08/24 08:51 Normal [facility] Operative Reporton Operative Report Operative Report Patient: JAQUELIN NORWOOD Age: 83 years Sex: Female : 1940 Associated Diagnoses: None Author: Mandi Glez MD Pre-Procedure Procedure Date 03/08/2024 10:15:00 . Procedure Type: Colonoscopy with removal of tumor(s), polyp(s), or other lesion(s) by cold snare technique. Procedure provider Performed by Mandi Glez MD. Current history and physical Documented on chart. EGD - esophagogastroduodenoscopy ([id number]) on 02/03/2024 at 83 Years. Colonoscopy ([id number]) on 02/03/2024 at 83 Years.. Past Medical History No active or resolved past medical history items have been selected or recorded.. Family History Heart disease Mother Diabetes mellitus type 2 Mother Cancer Father Mother . Procedure History EGD - esophagogastroduodenoscopy ([id number]) on 02/03/2024 at 83 Years. Colonoscopy ([id number]) on 02/03/2024 at 83 Years.. Colorectal neoplasm risk assessment High risk Abnormal CT scan. . Informed Consent After discussing the rationale, risks and benefits, and alternatives to this procedure, the patient provided signed consent for the procedure. Pre-procedure diagnosis: Diagnostic: Abnormal CT scan. Medications (Selected) Inpatient Medications Ordered Lactated Ringers IV Sabrina 1000 mL 1,000 mL: 1,000 mL, IV, 100 mL/hr, Routine, Start date 03/08/24 10:05:00 EDT, 10 hour(s), Total volume (mL): 1,000, 87.3 kg, 2, m2 Sodium Chloride 0.9% IV Sabrina 1000 mL 1,000 mL: 1,000 mL, IV, 20 mL/hr, Routine, Start date 03/08/24 6:40:00 EDT, 50 hour(s), Total volume (mL): 1,000 Documented Medications Documented Albuterol (Eqv-ProAir HFA) 90 mcg/inh inhalation aerosol: puff(s), Inhalation, q6hr, Refill(s) 0, Shortness of breath or wheezing Linzess 290 mcg oral capsule: mcg cap(s), Oral, Daily, Refills(s) 0, Constipation albuterol 0.083% Inh Sabrina 3 mL: 2.5 mg, 3 mL, Inhalation, q6hr Shortness of breath or wheezing, Refill(s) 12, Q6H and PRN aspirin 81 mg Oral EC Tab: 81 mg = 1 tab(s), Oral, Daily, Refills(s) 0, Blood Thinner atorvastatin 40 mg Tab: mg tab(s), Oral, Daily, Refills(s) 0, High cholesterol buPROPion 150 mg ER Tab: mg tab(s), Oral, BID, Refills(s) 0, Anxiety carvedilol 12.5 mg Tab: mg tab(s), Oral, BID, Refills(s) 0, High blood pressure duloxetine 60 mg Cap-DR: Oral, BID, Refills(s) 0, Depression famotidine 20 mg Tab: mg tab(s), Oral, BID, Refills(s) 0, Control of stomach acid furosemide 40 mg Tab: 40 mg = 1 tab(s), Oral, Daily, Refills(s) 0, diuretic/water pill levothyroxine 100 mcg (0.1 mg) Tab: mcg tab(s), Oral, Daily, Refills(s) 0, Thyroid lisinopril 5 mg Tab: mg tab(s), Oral, Daily, Refills(s) 0, High blood pressure nitroglycerin 0.4 mg sublingual Tab: 0.4 mg = 1 tab(s), SubLingual, q5min, PRN for chest pain, # 100 tab(s), Refills(s) 0 omeprazole 40 mg Cap-DR: mg cap(s), Oral, Daily, Refills(s) 0, Control of stomach acid Anticoagulant/antiplatelet None. ASA Classification: Class III. . Monitoring: See anesthesia record. . Procedure The procedure was performed in the hospital. See anesthesia record for sedation given during procedure. The patient was positioned starting in the left lateral decubitus position. Endoscope type used was an adult-size. The endoscope was lubricated then introduced through the anus. The scope was advanced to the cecum. No difficulties encountered during the procedure. The bowel preparation quality was good and was adequate (see polyps greater than or equal to 6 millimeters). The patient tolerated the procedure well. Time to Cecum: 9 min Withdrawal time 10 min Last colonoscopy: Unknown Findings 1. Normal rectal exam 2. 4 x 3-5 mm sessile polyps seen in the sigmoid colon resected with cold snare completely 3. 2 x three 3 to 12 mm sessile polyps in the rectum status post resection using cold snare 4. Excessive loop formation with redundant colon 5. Mild diverticulosis of the left colon 6. Internal hemorrhoids Images Procedure images: [id number].jpg [id number].jpg [id number]_hd_video_[id number].jpg [id number]_hd_video_[id number]__[id number].jpg [id number]_[id number].jpg [id number].jpg [id number].jpg . Post-Procedure Complications: none. Estimated blood loss: Minimal. Specimens: sent to pathology. Devices/ implants: none left in place. Impression and Plan 6 colon polyps?removed as above Redundant colon with excessive mucus Diverticulosis Internal hemorrhoids Recommendations: Repeat colonoscopy:: None given age and comorbiditties . Follow-up:: in clinic for 1-2 weeks when p (more content not included)... Normal [facility] Comment on above: Result Comment: Elec tronically Signed By: Amaris VALDEZ, Mandi Red\.br\Date and Time Signed: 03/08/24 10:18 EDT Other Comment: Ayana perry Attachment - attachment storage system not supported [id number] Can be viewed in source systemMissing Attachment - attachment storage system not supported [id number] Can be viewed in source systemMissing Attachment - attachment storage system not supported [id number] Can be viewed in source systemMissing Attachment - attachment storage system not supported [id number] Can be viewed in source systemMissing Attachment - attachment storage system not supported [id number] Can be viewed in source systemMissing Attachment - attachment storage system not supported [id number] Can be viewed in source systemMissing Attachment - attachment storage system not supported [id number] Can be viewed in source system H&P Update H&P Update Patient: JAQUELIN NORWOOD Age: 83 years Sex: Female : 1940 Associated Diagnoses: None Author: Mandi Glez MD Preoperative Information Chief compliant/Indication for procedure: abnl CT Chief Complaint as above Review of Systems All systems reviewed, negative except as mentioned above Physical Examination Vital Signs (last 24 hrs) Last Charted Temp Temporal 36.7 DegC (FEB 17 08:46) Heart Rate Monitored 88 bpm (FEB 17 08:46) SBP 134 mmHg (FEB 17 08:46) DBP 70 mmHg (MAR 08 08:46) Weight 87.3 kg (MAR 08 08:46) General: in Nad Abdomen: Soft, NTND Impression and Plan Diagnosis: abnl CT - colonoscopy H&P Normal [facility] Operative Report Operative Report Patient: JAQUELIN NORWOOD Age: 83 years Sex: Female : 1940 Associated Diagnoses: None Author: Mandi Glez MD Preoperative Information Chief compliant/Indication for procedure: abnl CT Chief Complaint as above Review of Systems All systems reviewed, negative except as mentioned above Physical Examination Vital Signs (last 24 hrs) Last Charted Temp Temporal 36.7 DegC (FEB 17 08:46) Heart Rate Monitored 88 bpm (FEB 17 08:46) SBP 134 mmHg (FEB 17 08:46) DBP 70 mmHg (FEB 17 08:46) Weight 87.3 kg (MAR 08 08:46) General: in Nad Abdomen: Soft, NTND Impression and Plan Diagnosis: abnl CT - colonoscopy Normal [facility] Comment on above: Result Comment: Elec tronically Signed By: Mandi Glez MD\.br\Date and Time Signed: 03/08/24 10:14 EDT H&P Update H&P Update Patient: JAQUELIN NORWOOD Age: 83 years Sex: Female : 1940 Associated Diagnoses: None Author: Mandi Glez MD Preoperative Information Chief compliant/Indication for procedure: Abnormal CT scan Chief Complaint as above Review of Systems All systems reviewed, negative except as mentioned above Physical Examination Vital Signs (last 24 hrs) Last Charted Temp Temporal 36.7 DegC (FEB 17 08:46) Heart Rate Monitored 88 bpm (FEB 17 08:46) SBP 134 mmHg (FEB 17 08:46) DBP 70 mmHg (FEB 17 08:46) Weight 87.3 kg (MAR 08 08:46) General: in Nad Abdomen: Soft, NTND Impression and Plan Diagnosis: Abnormal CT scan Sigmoidoscopy H&P Normal [facility] Operative Report Operative Report Patient: JAQUELIN NORWOOD Age: 83 years Sex: Female : 1940 Associated Diagnoses: None Author: Mandi Glez MD Preoperative Information Chief compliant/Indication for procedure: Abnormal CT scan Chief Complaint as above Review of Systems All systems reviewed, negative except as mentioned above Physical Examination Vital Signs (last 24 hrs) Last Charted Temp Temporal 36.7 DegC (FEB 17 08:46) Heart Rate Monitored 88 bpm (FEB 17 08:46) SBP 134 mmHg (FEB 17 08:46) DBP 70 mmHg (FEB 17 08:46) Weight 87.3 kg (FEB 17 08:46) General: in Nad Abdomen: Soft, NTND Impression and Plan Diagnosis: Abnormal CT scan Sigmoidoscopy Normal [facility] Comment on above: Result Comment: Elec tronically Signed By: Mandi Glez MD\.br\Date and Time Signed: 03/08/24 09:49 EDT Gastroenterology Office/Clin ic Noteon 03-02-2024 Gastroenterology Office/Clinic Note Gastroenterology Office/Clinic Note Chief Complaint ref by cailin- nausea HPI Staff Patient is a 83 year old female who was referred by Dr Landers for nausea. -Started a month ago, taking Zofran, tried promethazine -Dysphagia with certain foods, no previous EGD Per referral patients last colonoscopy was [address] CT 11/27/23 IMPRESSION: 1. Cholelithiasis. 2. Prior gastric surgery without evidence of bowel obstruction. 3. Fluid-filled loops of small bowel and cecum without abnormal dilation or appreciable inflammatory changes. 4. Circumferential wall thickening of a 3.1; segment of distal sigmoid colon; mass versus peristalsis. Follow-up recommended. XR Abd 10/29/23 FINDINGS/IMPRESSION: 1. Average stool burden of the colon. There is gas visualized within the colonic loops. 2. Mild degeneration of the bilateral hip joints. 3. Phleboliths of the pelvis. 4. No acute osseous abnormality. 5. Moderate degeneration of the lower lumbar spine. 6. No evidence for pneumoperitoneum. No portal venous gas. No evidence for pneumatosis. MBS 12/05/21 IMPRESSION: 1. No aspiration. 2. Mass effect anterior to the lower cervical spine of uncertain etiology displacing the proximal esophagus anteriorly. Consider CT imaging of the neck soft tissues with IV contrast for further evaluation. 3. Markedly decreased esophageal peristalsis with tertiary waves resulting in delayed emptying and inability of contents within esophagus. This may contribute to reflux and patient's coughing. History of Present Illness I have reviewed HPI staff note, most recent labs and imaging, more than 30 minutes spent reviewing the chart, during encounter, placing orders and counseling the patient. 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 inflammation in the distal colon Review of Systems PHQ Score Initial Depression Screen Score: 0 SCORE All systems reviewed, negative except as mentioned above Physical Exam Vitals & Measurements HR: 76(Peripheral) RR: 16 BP: 118/78 HT: 65 in HT: 165 cm WT: 87.3 kg WT: 192.06 lb BMI: 32.07 General: alert, no acute distress HEENT: atraumatic normocephalic Cardiovascular: regular rate and rhythm, normal peripheral perfusion Respiratory: Lungs CTA, respirations non labored Extremities: no deformity, no trauma Abdomen: Benign, soft, nontender nondistended Assessment/Plan 1. Esophageal dysmotility (K22.4: Dyskinesia of esophagus) Ordered: Colonoscopy (Hospital Procedure) EGD Endoscopy (Hospital Procedure) Sigmoidoscopy (Hospital Procedure) 2. Esophageal dysphagia (R13.19: Other dysphagia) Ordered: Colonoscopy (Hospital Procedure) EGD Endoscopy (Hospital Procedure) Sigmoidoscopy (Hospital Procedure) 3. Cholelithiasis (K80.20: Calculus of gallbladder without cholecystitis without obstruction) Ordered: Colonoscopy (Hospital Procedure) EGD Endoscopy (Hospital Procedure) Sigmoidoscopy (Hospital Procedure) 4. History of gastric surgery (Z98.890: Other specified postprocedural states) Ordered: Colonoscopy (Hospital Procedure) EGD Endoscopy (Hospital Procedure) Sigmoidoscopy (Hospital Procedure) 5. Abnormal CT of the abdomen (R93.5: Abnormal findings on diagnostic imaging of other abdominal regions, including retroperitoneum) Ordered: Colonoscopy (Hospital Procedure) EGD Endoscopy (Hospital Procedure) Sigmoidoscopy (Hospital Procedure) Schedule EGD with possible dilation and esophageal biopsies to evaluate dysphagia and nausea. Might benefit from gastric emptying test in the future. Continue H2 ana and PPI for now Continue Linzess Obtain flex sig to evaluate abnormal CT scan findings in the sigmoid colon Follow-up No qualifying data available Problem List/Past Medical History Ongoing Abnormal CT of the abdomen Cholelithiasis Esophageal dysmotility Esophageal dysphagia History of gastric surgery Historical No qualifying data Medications Albuterol (Eqv-ProAir HFA) 90 mcg/inh inhalation aerosol, Inhalation, q6hr albuterol 0.083% Inh Sabrina 3 mL, 2.5 mg= 3 mL, Inhalation, q6hr aspirin 81 mg Oral EC Tab, Oral, Daily atorvastatin 40 mg Tab, Oral, Daily buPROPion 150 mg ER Tab, Oral, BID carvedilol 12.5 mg Tab, Oral, BID duloxetine 60 mg Cap-DR, Oral famotidine 20 mg Tab, Oral, BID furosemide 40 mg Tab, Oral, Daily levothyroxine 100 mcg (0.1 mg) Tab, Oral, Daily Linzess 290 mcg oral capsule, Oral, Daily lisinopril 5 mg Tab, Oral, Daily MiraLax, Oral, Daily nitroglycerin 0.4 mg sublingual Tab, 0.4 mg= 1 tab(s), SubLingual, q5min, PRN omeprazole 40 mg Cap-DR, Oral, Daily Allergies Benztropine Mesylate (Hallucinations, Unknown) Vioxx (Unknown) naproxen (Edema, Unknown) Social History Tobacco Former smoker, quit more than 30 days ago Tobacco Use:., 12/21/2023 Family History Cancer: Mo (more content not included)... Normal [facility] Comment on above: Result Comment: Elec tronically Signed By: Dania Antonio I\.br\Date and Time Signed: 03/02/24 09:23 EDT 07 Addendum Reporton 024 Addendum Report [facility] [address] [place] [address]- Surgical Pathology Report Collected Date/Time: 02/03/2024 10:21 EDT Pathologist: Meng Vyas MD Received Date/Time: 02/03/2024 11:48 EDT Amaris VALDEZ, Mandi Glez MD, Mandi Red 07 Addendum Report - 02/05/2024 16:13 EDT - Auth (Verified) Addendum H. Pylori immunostain is negative for H. Pylori. (Electronic Signature) Traci Mcdonnell MD 02/05/2024 16:13 Addendum Reason H. Pylori immunostain. 07 Surgical Pathology Report - 02/04/2024 14:16 EDT - Auth (Verified) Final Diagnosis A: STOMACH, BIOPSY: - Antral and oxyntic-type gastric mucosa with reactive gastropathy and mild chronic inactive gastritis. - See comment. B: ESOPHAGUS, BIOPSY: - Gastroesophageal junctional mucosa with reactive epithelial changes. - No evidence of intestinal metaplasia/Cruz's type mucosa identified. (Electronic Signature) Yan. Lilliam MD 02/04/2024 14:16 Diagnosis Comment Helicobacter pylori immunohistochemical stain performed on the tissue block A is pending and will follow as an addendum report. Clinical Information Pre-Op Diagnosis: Dysphagia, history of gastric surgery, abnormal CT of the abdomen Procedure: EGD Post-Op Diagnosis: 1.Schatzki's ring and esophageal stricture status post dilation 2.Gastropathy 3.Duodenitis Specimen(s) Received A: Gastric biopsy B: Esophagus biopsy Gross Description A: Received in formalin labeled with patient name, number, and gastric biopsy are seven fragments of zimmerman combs tissue ranging from 0.1 cm up to 0.4 cm in greatest dimension. Specimen is entirely submitted in one cassette. B: Received in formalin labeled with patient name, number, and esophagus biopsy are multiple fragments of zimmerman combs tissue ranging from less than 0.1 cm up to 0.1 cm in greatest dimension. The specimen is entirely submitted in one cassette. (DC) DC:[facility] Surgical Pathology Report Collected Date/Time: 02/03/2024 10:21 EDT Pathologist: Meng Vyas MD Received Date/Time: 02/03/2024 11:48 EDT Mandi Glez MD, MD, Mohamad A. Microscopic Description A&B: Microscopic examination performed unless gross only specified. The use of one or more reagents in the above tests is regulated as an analyte specific reagent (ASR). The test or tests are ordered following initial H&E microscopic examination. The performance characteristics were determined by the [facility] of [facility]. They have not been cleared or approved by the US Food and Drug Administration. The FDA has determined that such clearance or approval is not necessary. These tests are used for clinical purposes. They should not be regarded as investigational or for research. Appropriate positive and negative controls are performed and are acceptable. Normal [facility] Comment on above: Performed By: #### C D:[id number] #### [facility] [address] [place] [address] Main OR Intraoperative Recor don 02-04-2024 Main OR Intraoperative Record Main OR Intraoperative Record IntraOp Document Type FT Summary Primary Physician: Mandi Glez MD Finalized Date/Time: 02/04/24 08:30:09 Pt. Name: JAQUELIN NORWOOD/Sex: 1940 Female Med Rec #: [id number] Physician: Mandi Glez MD Financial #: [id number] Pt. Type: O Room/Bed: / Admit/Disch: 02/03/24 08:34:18 - 02/03/24 23:59:59 Institution: Case Times FT Entry 1 Patient Times In Room 02/03/24 10:10:00 Out Room 02/03/24 10:29:00 Procedure Times Start 02/03/24 10:16:00 Stop 02/03/24 10:26:00 Anesthesia Times Start 02/03/24 10:10:00 Stop 02/03/24 10:29:00 Last Modified By: Robbie Rothman RN 02/03/24 10:29:17 General Comments: 1023 EGD completed MSRN 1025 Sigmoidoscopy started MSRN 02/04/24 Chart opened to review and send charges [facility]oth CSFA Case Attendance FT Entry 1 Entry 2 Entry 3 Case Attendee Nicholas ELIAS, Tiago Rothman RN, Karla Vu Role Performed Anesthesiologist of [employer] Executive - Primary Staff - Other Record Time In 02/03/24 10:10:00 02/03/24 10:10:00 02/03/24 10:15:00 Time Out 02/03/24 10:29:00 02/03/24 10:29:00 02/03/24 10:29:00 Procedure SIGMOIDOSCOPY(.), EGD(.) SIGMOIDOSCOPY(.), EGD(.) SIGMOIDOSCOPY(.), EGD(.) Comments help in room Last Modified By: Robbie Rothman RN, RN, Robbie Coker RN 02/03/24 10:29:17 02/03/24 10:29:17 02/03/24 10:29:17 Entry 4 Entry 5 Case Attendee Ang DURAN, Talia Glez MD, Mandi Bryant Role Performed Scrub - Primary Surgeon - Primary Time In 02/03/24 10:10:00 02/03/24 10:10:00 Time Out 02/03/24 10:29:00 02/03/24 10:29:00 Procedure SIGMOIDOSCOPY(.), EGD(.) SIGMOIDOSCOPY(.), EGD(.) Comments Last Modified By: Robbie Rothman RN, RN, Morgan E 02/03/24 10:29:17 02/03/24 10:29:17 Perioperative Protocols FT Pre-Care Text: Implements protective measures prior to operative or invasive procedure, confirms identity before the operative or invasive procedure, verifies operative procedure, surgical site, and laterality Entry 1 Procedure(s) SIGMOIDOSCOPY(.), EGD(.) Patient Identity Birthday, ID Band Verified (select at Check, Patient least 2): Participation Consents / H and P Anesthesia Consent, Operative Site N/A Verified H&P, Surgery/Procedure Marking Verified Consent Surgical Site No Laterality Verified n/a Verified Procedure Verified Yes Correct Patient Yes Position Verified Availability Equipment, Medication Prep Dry n/a Verified (If Applicable) PreOp Antibiotic No Time Out Tiago Peterson DO, Robbie Rothman RN, Schafer CST, Amaris Balbuena MD, Mandi Red Time Out Complete 02/03/24 10:12:00 Outcomes Met? Yes Last Modified By: Robbie Rothman RN 02/03/24 10:13:47 Post-Care Text: The patient is free from signs and symptoms of injury caused by extraneous objects Allergy Information FT Pre-Care Text: Verifies allergies Entry 1 Allergies Reviewed? Yes Allergies Reviewed Self/Patient With Outcomes Met? Yes Last Modified By: Robbie Rothman RN 02/03/24 10:13:53 Post-Care Text: The patient received appropriate medication(s) safely administered during the perioperative period Surgical Procedures FT Entry 1 Entry 2 Procedure Description Procedure SIGMOIDOSCOPY EGD Modifiers . . Surgeon Description Sigmoidoscopy EGD with gastric biopsy, esophagus biopsy, and dilation of esophagus using 12-13.5-15mm dilation balloon Primary Procedure Yes No Primary Surgeon Amaris VALDEZ, Mandi Glez MD, Mandi Red Start 02/03/24 10:16:00 02/03/24 10:16:00 Stop 02/03/24 10:26:00 02/03/24 10:26:00 Anesthesia Type None General Surgical Service Gastroenterology Gastroenterology Wound Class 2 - Clean-Contaminated 2 - Clean-Contaminated Last Modified By: Robbie Rothman RN, RN, Morgan E 02/03/24 10:28:48 02/03/24 10:28:48 General Comments: Sigmoidoscopy incomplete due to poor bowel prep General Case Data FT Pre-Care Text: Classifies surgical wound, implements aseptic technique, initiates traffic control Entry 1 Case Information OR ENDO 1 FT Case Level Level 2 Wound Class 2 - Clean-Contaminated Specialty Gastroenterology ASA Class 2 Preop Diagnosis Dysphagia, History of Postop Same As Preop No gastric surgery, Abnormal CT of the abdomen Postop Diagnosis EGD- Esophageal Outcomes Met? Yes stricture, Gastropathy, Duodenitis. Sigmoidoscopy incompleted due to poor bowel prep Last Modified By: Robbie Rothman RN 02/03/24 10:36:09 Post-Care Text: The patient is free from signs and symptoms of infection Skin Assessment (Pre Procedure) FT Pre-Care Text: Implements protective measures to prevent skin/ tissue injury due to thermal or mechanical sources Evaluates for signs and symptoms of physical injury to skin and tissue Entry 1 Skin Integrity Dry, Warm Skin Abnormality No Outcomes Met? Yes Last Modified By: Ruthy (more content not included)... Normal [facility] Surgical Pathology Reporton 02-04-2024 Surgical Pathology Report [facility] [address] [place] [address]- Surgical Pathology Report Collected Date/Time: 02/03/2024 10:21 EDT Pathologist: Meng Vyas MD Received Date/Time: 02/03/2024 11:48 EDT Amaris VALDEZ, Mandi Glez MD, Mandi Cohen Surgical Pathology Report - 02/04/2024 14:16 EDT - Auth (Verified) Final Diagnosis A: STOMACH, BIOPSY: - Antral and oxyntic-type gastric mucosa with reactive gastropathy and mild chronic inactive gastritis. - See comment. B: ESOPHAGUS, BIOPSY: - Gastroesophageal junctional mucosa with reactive epithelial changes. - No evidence of intestinal metaplasia/Cruz's type mucosa identified. (Electronic Signature) Yan. Lilliam MD 02/04/2024 14:16 Diagnosis Comment Helicobacter pylori immunohistochemical stain performed on the tissue block A is pending and will follow as an addendum report. Clinical Information Pre-Op Diagnosis: Dysphagia, history of gastric surgery, abnormal CT of the abdomen Procedure: EGD Post-Op Diagnosis: 1.Schatzki's ring and esophageal stricture status post dilation 2.Gastropathy 3.Duodenitis Specimen(s) Received A: Gastric biopsy B: Esophagus biopsy Gross Description A: Received in formalin labeled with patient name, number, and gastric biopsy are seven fragments of zimmerman combs tissue ranging from 0.1 cm up to 0.4 cm in greatest dimension. Specimen is entirely submitted in one cassette. B: Received in formalin labeled with patient name, number, and esophagus biopsy are multiple fragments of zimmerman combs tissue ranging from less than 0.1 cm up to 0.1 cm in greatest dimension. The specimen is entirely submitted in one cassette. (DC) DC:[facility] Microscopic Description A&B: Microscopic examination performed unless gross only specified. The use of one or more reagents in the above tests is regulated as an analyte specific reagent (ASR). The test or tests are ordered following initial H&E microscopic examination. The performance characteristics were determined by the Laboratory of [facility]. They have not been cleared or approved by the US Food and Drug Administration. The FDA has determined that such clearance or approval is not necessary. These tests are used for clinical purposes. They should not be regarded as investigational or for research. Appropriate positive and negative controls are performed and are acceptable. Normal [facility] Comment on above: Performed By: #### [id number] #### [facility] [address] [place] [address] Discharge Instructionson Discharge Instructions Discharge Instructions JAQUELIN NORWOOD :1940 Visit Date:02/03/2024 Inpatient Discharge Instructions Your Care Team Admitting Physician - Mandi Glez MD. Referring Physician - Mandi Glez MD. Reason for Your Visit ESOPHAGEAL DYSMOTILITY, ESOPHAGEAL DYSPHAGIA, CHOLELITHIASIS, HX OF GASTRIC SURGERY, ABNORMAL CT OF ABDOMEN Your Diagnosis Abnormal CT of the abdomen Esophageal stricture Gastropathy Tests Performed Pathology Tissue Exam -- Results Pending -- Please visit your patient portal for your results or contact your primary care physician. This Is Your Medications List albuterol (Albuterol (Eqv-ProAir HFA) 90 mcg/inh inhalation aerosol) albuterol (albuterol 0.083% Inh Sabrina 3 mL) aspirin (aspirin 81 mg Oral EC Tab) atorvastatin (atorvastatin 40 mg Tab) buPROPion (buPROPion 150 mg ER Tab) carvedilol (carvedilol 12.5 mg Tab) duloxetine (duloxetine 60 mg Cap-DR) famotidine (famotidine 20 mg Tab) furosemide (furosemide 40 mg Tab) levothyroxine (levothyroxine 100 mcg (0.1 mg) Tab) linaclotide (Linzess 290 mcg oral capsule) lisinopril (lisinopril 5 mg Tab) nitroglycerin (nitroglycerin 0.4 mg sublingual Tab) omeprazole (omeprazole 40 mg Cap-DR) Discharge Vitals Temperature (Temporal Artery) 36.5 ?C Heart Rate (Monitored) 78 Respiratory Rate 22 Blood Pressure 129/64 What to do next Instructions From Your Doctor No qualifying data available. New Follow Up Appointments after Discharge Follow Up with Amaris VALDEZ, WILBERTO Jean-Baptiste, MED When: Comments: Office will call Date and Time of Follow-up Appt. Where: [address] [place] [address] [address], [address] [place] [address]- [phone] Medications What How Much When Instructions Next Dose Unchanged albuterol (Albuterol (Eqv-ProAir HFA) 90 mcg/ inh inhalation aerosol) Inhalation Every 6 hours Unchanged albuterol (albuterol 0.083% Inh Sabrina 3 mL) 3 Milliliter Inhalation Every 6 hours as needed for Shortness of breath or wheezing Q6H and PRN Unchanged aspirin (aspirin 81 mg Oral EC Tab) 1 Tablets By Mouth Every day Unchanged atorvastatin (atorvastatin 40 mg Tab) By Mouth Every day Unchanged buPROPion (buPROPion 150 mg ER Tab) By Mouth 2 times a day Unchanged carvedilol (carvedilol 12.5 mg Tab) By Mouth 2 times a day Unchanged duloxetine (duloxetine 60 mg Cap-DR) By Mouth 2 times a day Unchanged famotidine (famotidine 20 mg Tab) By Mouth 2 times a day Unchanged furosemide (furosemide 40 mg Tab) 1 Tablets By Mouth Every day Unchanged levothyroxine (levothyroxine 100 mcg (0.1 mg) Tab) By Mouth Every day Unchanged linaclotide (Linzess 290 mcg oral capsule) By Mouth Every day Unchanged lisinopril (lisinopril 5 mg Tab) By Mouth Every day Unchanged nitroglycerin (nitroglycerin 0.4 mg sublingual Tab) 1 Tablets Sublingual Every 5 minutes as needed for for chest pain Unchanged omeprazole (omeprazole 40 mg Cap-DR) By Mouth Every day Test Results No qualifying data available. Allergies Benztropine Mesylate (Hallucinations, Unknown) Vioxx (Unknown) naproxen (Edema, Unknown) Problems Ongoing - Any problem that you are currently receiving treatment for. Abnormal CT of the abdomen Cholelithiasis Esophageal dysmotility Esophageal dysphagia History of gastric surgery Education Materials Esophageal Dilatation Esophageal dilatation, also called esophageal dilation, is a procedure to widen or open a blocked or narrowed part of the esophagus. The esophagus is the part of the body that moves food and liquid from the mouth to the stomach. You may need this procedure if: ? You have a buildup of scar tissue in your esophagus that makes it difficult, painful, or impossible to swallow. This can be caused by gastroesophageal reflux disease (GERD). ? You have cancer of the esophagus. ? There is a problem with how food moves through your esophagus. In some cases, you may need this procedure repeated at a later time to dilate the esophagus gradually. Tell a health care provider about: ? Any allergies you have. ? All medicines you are taking, including vitamins, herbs, eye drops, creams, and aafv-hzd-gixxfpr medicines. ? Any problems you or family members have had with anesthetic medicines. ? Any blood disorders you have. ? Any surgeries you have had. ? Any medical conditions you have. ? Any antibiotic medicines you are required to take before dental procedures. ? Whether you are or may be . What are the risks? Generally, this is a safe procedure. However, problems may occur, including: ? Bleeding due to a tear in the lining of the esophagus. ? A hole, or perforation, in the esophagus. What happens before the procedure? ? Ask your health care provider about: ? Changing or stopping your regular medicines. This is especially important if you are taking diabetes medicines or blood thinners. ? Taking medi (more content not included)... Normal [facility] Comment on above: Result Comment: Elec tronically Signed By: Krissy COTA, Saida\.br\Date and Time Signed: 02/03/24 10:39 EDT Main OR PACU I Recordon 01-20 Main OR PACU I Record Main OR PACU I Record PACU Phase I Document Type FT Summary Primary Physician: Amaris VALDEZ, Mandi Red Finalized Date/Time: 02/03/24 16:03:27 Pt. Name: JAQUELIN NORWOOD Glenroy Glaser/Sex: 1940 Female Med Rec #: [id number] Physician: Mandi Glez MD Financial #: [id number] Pt. Type: O Room/Bed: / Admit/Disch: 02/03/24 08:34:18 - Institution: Case Times PACU I FT Pre-Care Text: Identifies barriers to communication and implements measures to provide psychological support Develops individualized plan of care, and ensures continuity of care Maintains patient's dignity and privacy, and maintains patient confidentiality Identifies and reports philosophical, cultural, and spiritual beliefs and values Identifies individual values and wishes concerning care Implements aseptic technique, and administers prescribed antibiotic therapy and immunizing agents as ordered Evaluates postoperative tissue perfusion Implements thermoregulation measures, and monitors body temperature Evaluates postoperative respiratory status Evaluates postoperative cardiac status Evaluates postoperative neurological status Assesses pain control, collaborated in initiating patient-controlled analgesia and implements alternative methods of pain control Verifies allergies, administers prescribed medications and solutions, evaluates response to medications Entry 1 In PACU I 02/03/24 10:30:00 Discharge from PACU 02/03/24 11:00:00 I Outcomes Met? Yes Last Modified By: Saida Rey RN 02/03/24 10:54:43 Post-Care Text: The patient demonstrates knowledge of the expected response to the operative or invasive procedure The patient's care is consistent with the individualized perioperative plan of care The patient's right to privacy is maintained The patient's value system, lifestyle, ethnicity, and culture are considered, respected, and incorporated into the perioperative plan of care The patient participates in decisions affecting his or her perioperative plan of care The patient is free from signs and symptoms of infection The patient has wound/tissue perfusion consistent with or improved from baseline levels established preoperatively The patient is at or returning to normothermia at the conclusion of the immediate postoperative period The patient's respiratory function is consistent with or improved from baseline levels established preoperatively The patient's cardiovascular status is consistent with or improved from baseline levels established preoperatively The patient's cardiovascular status is consistent with or improved from baseline levels established preoperatively The patient demonstrates and/or reports adequate pain control throughout the perioperative period The patient received appropriate medication(s), safely administered during the perioperative period Acuity Level PACU I FT Entry 1 Start Time 02/03/24 10:30:00 Stop Time 02/03/24 11:00:00 Acuity Level Acuity Level I Last Modified By: Saida Rey RN 02/03/24 10:55:05 Finalized By: Saida Rey RN Document Signatures Signed By: Saida Rey RN 02/03/24 10:55 Saida Rey RN 02/03/24 16:03 Normal [facility] Main OR Preoperative Recordo n 02-03-2024 Main OR Preoperative Record Main OR Preoperative Record Holding Area Document Type FT Summary Primary Physician: Mandi Glez MD Finalized Date/Time: 02/03/24 09:17:23 Pt. Name: JAQUELIN NORWOOD Glenroy Xavier./Sex: 1940 Female Med Rec #: [id number] Physician: Mandi Glez MD Financial #: [id number] Pt. Type: O Room/Bed: / Admit/Disch: 02/03/24 08:34:18 - Institution: Case Times Holding FT Pre-Care Text: Verifies consent for planned procedure, identifies individual values and wishes concerning care, includes family members in perioperative teaching Secures patient's records' belongings, and valuables, maintains patient's dignity and privacy, and maintains patient confidentiality Entry 1 In Holding 02/03/24 08:45:00 Outcomes Met? Yes Last Modified By: Saida Rey RN 02/03/24 09:00:14 Post-Care Text: The patient participates in decisions affecting his or her perioperative plan of care The patient's right to privacy is maintained Surgery Checklist FT Entry 1 Patient Birthday, ID Band Procedure History and Physical, Identification: Check, Patient Verification: Surgical Consent, With Participation, Family, With Patient Other/See Comments NPO after Midnight: No Date/Time: 02/03/24 08:30:00 Results Reviewed Daughter in law state Personal Items: Cataract Lens Implant, Comments: she had blood in it Glasses Unable to say what color or if there was formed stool. Stated that an other daughter in law helped patient. Personal Items none Limitations: ambulates with assist Comment: Complaints of Pain: No Pain Comment: N/A Availability Equipment Verified: Does Patient Smoke No If Yes to Smoking. quit in 1996 Cigars or Cigarettes. How much per day? Patient states Yes Comment - Adult daughter in law Moni postop adult Supervision supervision available Case Cancelled in No Holding Area see comments below for reason Last Modified By: Saida Rey RN 02/03/24 09:03:49 Finalized By: Saida Rey RN Document Signatures Signed By: Saida Rey RN 02/03/24 09:03 Saida Rey RN 02/03/24 09:17 Normal [facility] Operative Reporton Operative Report Operative Report Patient: JAQUELIN NORWOOD Age: 83 years Sex: Female : 1940 Associated Diagnoses: None Author: Mandi Gelz MD Pre-Procedure Procedure Date 02/03/2024 10:30:00 . Procedure Type: Flexible sigmoidoscopy. Procedure provider Performed by Mandi Glez MD. Current history and physical Documented on chart. No active procedure history items have been selected or recorded.. Past Medical History No active or resolved past medical history items have been selected or recorded.. Family History Heart disease Mother Diabetes mellitus type 2 Mother Cancer Father Mother . Procedure History No active procedure history items have been selected or recorded.. Colorectal neoplasm risk assessment Average risk. Informed Consent After discussing the rationale, risks and benefits, and alternatives to this procedure, the patient provided signed consent for the procedure. Pre-procedure diagnosis: Diagnostic: Abnormal CT scan. Medications (Selected) Inpatient Medications Ordered Lactated Ringers IV Sabrina 1000 mL 1,000 mL: 1,000 mL, IV, 100 mL/hr, Routine, Start date 01/11/24 8:41:00 EDT, 10 hour(s), Total volume (mL): 1,000, 87.3 kg, 2, m2 Lactated Ringers IV Sabrina 1000 mL 1,000 mL: 1,000 mL, IV, 100 mL/hr, Routine, Start date 02/03/24 9:21:00 EDT, 10 hour(s), Total volume (mL): 1,000 Sodium Chloride 0.9% IV Sabrina 1000 mL 1,000 mL: 1,000 mL, IV, 20 mL/hr, Routine, Start date 01/11/24 8:50:00 EDT, 50 hour(s), Total volume (mL): 1,000, 87.3 kg, 2, m2 Sodium Chloride 0.9% IV Sabrina 1000 mL 1,000 mL: 1,000 mL, IV, 20 mL/hr, Routine, Start date 02/03/24 6:59:00 EDT, 50 hour(s), Total volume (mL): 1,000 Documented Medications Documented Albuterol (Eqv-ProAir HFA) 90 mcg/inh inhalation aerosol: puff(s), Inhalation, q6hr, Refill(s) 0, Shortness of breath or wheezing Linzess 290 mcg oral capsule: mcg cap(s), Oral, Daily, Refills(s) 0, Constipation albuterol 0.083% Inh Sabrina 3 mL: 2.5 mg, 3 mL, Inhalation, q6hr Shortness of breath or wheezing, Refill(s) 12, Q6H and PRN aspirin 81 mg Oral EC Tab: 81 mg = 1 tab(s), Oral, Daily, Refills(s) 0, Blood Thinner atorvastatin 40 mg Tab: mg tab(s), Oral, Daily, Refills(s) 0, High cholesterol buPROPion 150 mg ER Tab: mg tab(s), Oral, BID, Refills(s) 0, Anxiety carvedilol 12.5 mg Tab: mg tab(s), Oral, BID, Refills(s) 0, High blood pressure duloxetine 60 mg Cap-DR: Oral, BID, Refills(s) 0, Depression famotidine 20 mg Tab: mg tab(s), Oral, BID, Refills(s) 0, Control of stomach acid furosemide 40 mg Tab: 40 mg = 1 tab(s), Oral, Daily, Refills(s) 0, diuretic/water pill levothyroxine 100 mcg (0.1 mg) Tab: mcg tab(s), Oral, Daily, Refills(s) 0, Thyroid lisinopril 5 mg Tab: mg tab(s), Oral, Daily, Refills(s) 0, High blood pressure nitroglycerin 0.4 mg sublingual Tab: 0.4 mg = 1 tab(s), SubLingual, q5min, PRN for chest pain, # 100 tab(s), Refills(s) 0 omeprazole 40 mg Cap-DR: mg cap(s), Oral, Daily, Refills(s) 0, Control of stomach acid ASA Classification: Class II. . Monitoring: See anesthesia record. . Procedure The procedure was performed in the hospital. See anesthesia record for sedation given during procedure. The patient was positioned starting in the left lateral decubitus position. Endoscope type used was a pediatric-size. The endoscope was lubricated then introduced through the anus. The scope was advanced to the sigmoid colon. No difficulties encountered during the procedure. The bowel preparation quality was poor and was inadequate. The patient tolerated the procedure well. Findings 1. Significant amount of stool prevented endoscopic exam. The procedure was aborted Images Procedure images: [id number].jpg . Post-Procedure Complications: none. Estimated blood loss: none. Specimens: none. Devices/ implants: none left in place. Impression and Plan poor bowel prep Recommendations: Repeat colonoscopy:: Next available with 2-day prep . Follow-up:: in clinic as scheduled. Diet:: Previous. Medication resumption:: Continue current medications, Avoid NSAIDs. Return to activities:: After 24 hours. Education and Follow-up: Counseled: Patient, Family. [facility] Comment on above: Result Comment: Elec tronically Signed By: Mandi Glez MD\.br\Date and Time Signed: 02/03/24 10:31 EDT Other Comment: Ayana perry Attachment - attachment storage system not supported [id number] Can be viewed in source system Operative Report Operative Report Patient: JAQUELIN NORWOOD Age: 83 years Sex: Female : 1940 Associated Diagnoses: None Author: Mandi Glez MD Pre-Procedure Procedure Date 02/03/2024 10:28:00 . Procedure Type: Esophagogastroduodenoscopy with dilation of esophagus with balloon less than 30 mm. Procedure provider Performed by Mandi Glez MD. Current history and physical Documented on chart. Informed Consent After discussing the rationale, risks and benefits, and alternatives to this procedure, the patient provided signed consent for the procedure. Pre-procedure diagnosis: Dysphagia . Medications (Selected) Inpatient Medications Ordered Lactated Ringers IV Sabrina 1000 mL 1,000 mL: 1,000 mL, IV, 100 mL/hr, Routine, Start date 01/11/24 8:41:00 EDT, 10 hour(s), Total volume (mL): 1,000, 87.3 kg, 2, m2 Lactated Ringers IV Sabrina 1000 mL 1,000 mL: 1,000 mL, IV, 100 mL/hr, Routine, Start date 02/03/24 9:21:00 EDT, 10 hour(s), Total volume (mL): 1,000 Sodium Chloride 0.9% IV Sabrina 1000 mL 1,000 mL: 1,000 mL, IV, 20 mL/hr, Routine, Start date 01/11/24 8:50:00 EDT, 50 hour(s), Total volume (mL): 1,000, 87.3 kg, 2, m2 Sodium Chloride 0.9% IV Sabrina 1000 mL 1,000 mL: 1,000 mL, IV, 20 mL/hr, Routine, Start date 02/03/24 6:59:00 EDT, 50 hour(s), Total volume (mL): 1,000 Documented Medications Documented Albuterol (Eqv-ProAir HFA) 90 mcg/inh inhalation aerosol: puff(s), Inhalation, q6hr, Refill(s) 0, Shortness of breath or wheezing Linzess 290 mcg oral capsule: mcg cap(s), Oral, Daily, Refills(s) 0, Constipation albuterol 0.083% Inh Sabrina 3 mL: 2.5 mg, 3 mL, Inhalation, q6hr Shortness of breath or wheezing, Refill(s) 12, Q6H and PRN aspirin 81 mg Oral EC Tab: 81 mg = 1 tab(s), Oral, Daily, Refills(s) 0, Blood Thinner atorvastatin 40 mg Tab: mg tab(s), Oral, Daily, Refills(s) 0, High cholesterol buPROPion 150 mg ER Tab: mg tab(s), Oral, BID, Refills(s) 0, Anxiety carvedilol 12.5 mg Tab: mg tab(s), Oral, BID, Refills(s) 0, High blood pressure duloxetine 60 mg Cap-DR: Oral, BID, Refills(s) 0, Depression famotidine 20 mg Tab: mg tab(s), Oral, BID, Refills(s) 0, Control of stomach acid furosemide 40 mg Tab: 40 mg = 1 tab(s), Oral, Daily, Refills(s) 0, diuretic/water pill levothyroxine 100 mcg (0.1 mg) Tab: mcg tab(s), Oral, Daily, Refills(s) 0, Thyroid lisinopril 5 mg Tab: mg tab(s), Oral, Daily, Refills(s) 0, High blood pressure nitroglycerin 0.4 mg sublingual Tab: 0.4 mg = 1 tab(s), SubLingual, q5min, PRN for chest pain, # 100 tab(s), Refills(s) 0 omeprazole 40 mg Cap-DR: mg cap(s), Oral, Daily, Refills(s) 0, Control of stomach acid Anticoagulant/antiplatelet None. ASA Classification: Class II. . Monitoring: See anesthesia record. . Anticoagulation use: Procedure The procedure was performed in the hospital. See anesthesia record for sedation given during procedure. The patient was positioned starting in the left lateral decubitus position and with safety measures. Endoscope type used was an adult-size, introduced orally, advanced to the 2nd portion of the duodenum. No difficulty was encountered during the procedure. Views were excellent. The patient tolerated the procedure well. Findings 1. Mild Schatzki ring and esophageal narrowing was noted at the GE junction. Dilation was performed using TTS balloon 12-15 mm, dilation was perfumed to 15 mm with moderate resistance. Minimal mucosal disruption was noted post dilation. No wall defect was seen afterwards. Biopsies obtained 2. Mild and patchy erythema throughout the stomach status post biopsies. 3. Patchy erythema in the duodenal bulb. otherwise, normal duodenum. Images Procedure images: [id number]_[id number]_ [id number] Rec_hd_video___ [id number].jpg Rec_hd_video___ [id number].jpg Rec_hd_video__[id number]_ [id number].jpg [id number]_[id number]__[id number].jpg [id number]_hd_video_2023__T09_ [id number].jpg [id number]_video_2023__[id number]_ [id number].jpg [id number]_hd_video_2023__T09_ [id number].jpg [id number]_hd_video_2023__T09_ [id number].jpg [id number]_hd_video_2023__[id number]_ [id number].jpg [id number]_[id number]__[id number].jpg [id number]__[id number].jpg . Post-Procedure Complications: none. Estimated blood loss: none. Specimens: None. Devices/ implants: none left in place. Impression and Plan Schatzki's ring and esophageal stricture status post dilation Gastropathy Duodenitis Recommendations: -Liquid then soft diet today, advance as tolerated (more content not included)... Normal [facility] Comment on above: Result Comment: Elec tronically Signed By: Amaris VALDEZ, Mandi Red\.br\Date and Time Signed: 02/03/24 10:30 EDT Other Comment: Ayana perry Attachment - attachment storage system not supported [id number] Can be viewed in source system Missing Attachment - attachment storage system not supported [id number] Can be viewed in source system Missing Attachment - attachment storage system not supported [id number] Can be viewed in source system Missing Attachment - attachment storage system not supported [id number] Can be viewed in source system Missing Attachment - attachment storage system not supported [id number] Can be viewed in source system Missing Attachment - attachment storage system not supported [id number] Can be viewed in source system Missing Attachment - attachment storage system not supported [id number] Can be viewed in source system Missing Attachment - attachment storage system not supported [id number] Can be viewed in source system Missing Attachment - attachment storage system not supported [id number] Can be viewed in source system Missing Attachment - attachment storage system not supported [id number] Can be viewed in source system Missing Attachment - attachment storage system not supported [id number] Can be viewed in source system Missing Attachment - attachment storage system not supported [id number] Can be viewed in source system Ambulatory Visit Summaryon 0 12-21-2023 Ambulatory Visit Summary Ambulatory Visit Summary JAQUELIN NORWOOD :1940 Visit Date:12/21/2023 Ambulatory Visit Instructions Your Diagnosis Esophageal dysmotility Esophageal dysphagia Cholelithiasis History of gastric surgery Abnormal CT of the abdomen Your Care Team Attending Physician - Amaris VALDEZ, Mandi Red Primary Care Physician - YOSSI LANDERS MD This Is Your Medications List Contact prescribing physician if questions or concerns albuterol (Albuterol (Eqv-ProAir HFA) 90 mcg/inh inhalation aerosol) albuterol (albuterol 0.083% Inh Sabrina 3 mL) aspirin (aspirin 81 mg Oral EC Tab) atorvastatin (atorvastatin 40 mg Tab) buPROPion (buPROPion 150 mg ER Tab) carvedilol (carvedilol 12.5 mg Tab) duloxetine (duloxetine 60 mg Cap-DR) famotidine (famotidine 20 mg Tab) furosemide (furosemide 40 mg Tab) levothyroxine (levothyroxine 100 mcg (0.1 mg) Tab) linaclotide (Linzess 290 mcg oral capsule) lisinopril (lisinopril 5 mg Tab) nitroglycerin (nitroglycerin 0.4 mg sublingual Tab) omeprazole (omeprazole 40 mg Cap-DR) polyethylene glycol 3350 (MiraLax) Discharge Vitals Heart Rate (Peripheral) 76 Respiratory Rate 16 Blood Pressure 118/78 Height 165 cm Height 65 in Weight 87.3 kg Weight 192.06 lb BMI 32.07 Medications What How Much When Instructions Unchanged albuterol (Albuterol (Eqv-ProAir HFA) 90 mcg/ inh inhalation aerosol) Inhalation Every 6 hours Contact prescribing physician if questions or concerns Unchanged albuterol (albuterol 0.083% Inh Sabrina 3 mL) 3 Milliliter Inhalation Every 6 hours Q6H and PRN Contact prescribing physician if questions or concerns Unchanged aspirin (aspirin 81 mg Oral EC Tab) By Mouth Every day Contact prescribing physician if questions or concerns Unchanged atorvastatin (atorvastatin 40 mg Tab) By Mouth Every day Contact prescribing physician if questions or concerns Unchanged buPROPion (buPROPion 150 mg ER Tab) By Mouth 2 times a day Contact prescribing physician if questions or concerns Unchanged carvedilol (carvedilol 12.5 mg Tab) By Mouth 2 times a day Contact prescribing physician if questions or concerns Unchanged duloxetine (duloxetine 60 mg Cap-DR) By Mouth Contact prescribing physician if questions or concerns Unchanged famotidine (famotidine 20 mg Tab) By Mouth 2 times a day Contact prescribing physician if questions or concerns Unchanged furosemide (furosemide 40 mg Tab) By Mouth Every day Contact prescribing physician if questions or concerns Unchanged levothyroxine (levothyroxine 100 mcg (0.1 mg) Tab) By Mouth Every day Contact prescribing physician if questions or concerns Unchanged linaclotide (Linzess 290 mcg oral capsule) By Mouth Every day Contact prescribing physician if questions or concerns Unchanged lisinopril (lisinopril 5 mg Tab) By Mouth Every day Contact prescribing physician if questions or concerns Unchanged nitroglycerin (nitroglycerin 0.4 mg sublingual Tab) 1 Tablets Sublingual Every 5 minutes as needed for for chest pain Contact prescribing physician if questions or concerns Unchanged omeprazole (omeprazole 40 mg Cap-DR) By Mouth Every day Contact prescribing physician if questions or concerns Unchanged polyethylene glycol 3350 (MiraLax) By Mouth Every day Contact prescribing physician if questions or concerns Allergies Benztropine Mesylate (Hallucinations, Unknown) Vioxx (Unknown) naproxen (Edema, Unknown) Problems Ongoing - Any problem that you are currently receiving treatment for. Abnormal CT of the abdomen Cholelithiasis Esophageal dysmotility Esophageal dysphagia History of gastric surgery Patient Survey You may receive a survey via text or e-mail asking about your office visit. Please share your experience with us by completing your survey. We appreciate your feedback and thank you for choosing us for your care. Normal [facility] Physician Referralon 024 Physician Referral [phone] [id number] Normal [facility] CORTISOL FREE, SERUMon 05-05 -2023 Cortisol, Free Dialysis, LCMS 0.462 ug/dL Normal [facility] Comment on above: Result Comment: Thes e tests were developed and their performance characteristics determined by [facility]. They have not been cleared or approved by the Food and Drug Administration. Reference Range: 8 AM 0.10 - 1.20 4 PM 0.042 - 0.872 Performed By: #### E RUR #### [facility] [address] [place] [address] Dr. Soila Pastor CBC AUTO DIFFon 10-16-2022 BASO # 0.0 103/ul Normal 0.0-0.1 [facility] Comment on above: Performed By: #### C BC #### [facility] [address] [place] [address] Dr. Soila Pastor Basophils/100 WBC (Bld) 0.4 % Normal 0.2-2.0 [facility] Comment on above: Performed By: #### C BC #### [facility] [address] [place] [address] Dr. Soila Pastor EO # 0.1 103/ul Normal 0.0-0.7 [facility] Comment on above: Performed By: #### C BC #### [facility] [address] [place] [address] Dr. Soila Pastor Eosinophils/100 WBC (Bld) 1.0 % Normal 0.9-7.0 [facility] Comment on above: Performed By: #### C BC #### [facility] [address] [place] [address] Dr. Soila Pastor Erythrocyte distribution width (RBC) [Ratio] 13.4 % Normal 11.0-15.0 [facility] Comment on above: Performed By: #### C BC #### [facility] [address] [place] [address] Dr. Soila Pastor Hematocrit (Bld) [Volume fraction] 34.7 % Critically low 36.0-48.0 [facility] Comment on above: Performed By: #### C BC #### [facility] [address] [place] [address] Dr. Soila Pastor Hemoglobin (Bld) [Mass/Vol] 10.8 g/dL Critically low 12.0-16.0 [facility] Comment on above: Performed By: #### C BC #### [facility] [address] [place] [address] Dr. Soila Pastor IG # 0.03 10e3/ul Normal 0.00-0.03 [facility] Comment on above: Performed By: #### C BC #### [facility] [address] [place] [address] Dr. Soila Pastor IG % 0.4 % Normal 0.0-0.5 [facility] Comment on above: Performed By: #### C BC #### [facility] [address] [place] [address] Dr. Soila Pastor LYMPH # 1.7 103/ul Normal 1.2-3.8 [facility] Comment on above: Performed By: #### C BC #### [facility] [address] [place] [address] Dr. Soila Pastor Lymphocytes/100 WBC (Bld) 22.1 % Normal 20.5-60.0 [facility] Comment on above: Performed By: #### C BC #### [facility] [address] [place] [address] Dr. Soila Pastor MANUAL DIFF REQ NO Normal [facility] Comment on above: Performed By: #### C BC #### [facility] [address] [place] [address] Dr. Soila Pastor MCH (RBC) [Entitic mass] 30.0 pg Normal 26.7-34.0 [facility] Comment on above: Performed By: #### C BC #### [facility] [address] [place] [address] Dr. Soila Pastor MCHC (RBC) [Mass/Vol] 31.1 g/dL Normal 29.9-35.2 [facility] Comment on above: Performed By: #### C BC #### [facility] [address] [place] [address] Dr. Soila Pastor MCV (RBC) [Entitic vol] 96.4 fL Normal 81.0-99.0 [facility] Comment on above: Performed By: #### C BC #### [facility] [address] [place] [address] Dr. Soila Pastor MONO # 0.5 103/ul Normal 0.3-0.8 [facility] Comment on above: Performed By: #### C BC #### [facility] [address] [place] [address] Dr. Soila Pastor Monocytes/100 WBC (Bld) 6.9 % Normal 1.7-12.0 [facility] Comment on above: Performed By: #### C BC #### [facility] [address] [place] [address] Dr. Soila Pastor NEUT # 5.4 103/ul Normal 1.4-6.5 [facility] Comment on above: Performed By: #### C BC #### [facility] [address] [place] [address] Dr. Soila Pastor Neutrophils/100 WBC (Bld) 69.2 % Normal 43.0-75.0 [facility] Comment on above: Performed By: #### C BC #### [facility] [address] [place] [address] Dr. Soila Pastor Platelet mean volume (Bld) [Entitic vol] 11.8 fL Normal 9.5-13.5 [facility] Comment on above: Performed By: #### C BC #### [facility] [address] [place] [address] Dr. Soila Pastor PLT 128 103/ul Critically low 150-450 [facility] Comment on above: Performed By: #### C BC #### [facility] [address] [place], [place] [id number] Dr. Soila Pastor RBC 3.60 106/ul Critically low 4.20-5.40 [facility] Comment on above: Performed By: #### C BC #### [facility] [address] [place] [address] Dr. Soila Pastor WBC 7.9 103/ul Normal 4.0-11.0 [facility] Comment on above: Performed By: #### C BC #### [facility] [address] [address] [address] Soila Pastor PROF 14(COMP METB)on 023 Albumin [Mass/Vol] 2.4 g/dL Critically low 3.4-5.0 [facility] Comment on above: Performed By: #### C MP #### [facility] [address] [place] [address] Dr. Soila Pastor Albumin/Globulin [Mass ratio] 0.7 {ratio} Normal [facility] Comment on above: Performed By: #### C MP #### [facility] [address] [place] [address] Dr. Soila Pastor ALP [Catalytic activity/Vol] 66 U/L Normal 46-116 [facility] Comment on above: Performed By: #### C MP #### [facility] [address] [place] [address] Dr. Soila Pastor ALT [Catalytic activity/Vol] 15 U/L Normal 14-59 [facility] Comment on above: Performed By: #### C MP #### [facility] [address] [place] [address] Dr. Soila Pastor Anion gap [Moles/Vol] 12.1 mmol/L Normal [facility] Comment on above: Performed By: #### C MP #### [facility] [address] [place] [address] Dr. Soila Pastor AST [Catalytic activity/Vol] 18 U/L Normal 15-37 [facility] Comment on above: Performed By: #### C MP #### [facility] [address] [place] [address] Dr. Soila Pastor Bilirubin [Mass/Vol] 0.3 mg/dL Normal 0.2-1.0 [facility] Comment on above: Performed By: #### C MP #### [facility] [address] [place] [address] Dr. Soila Pastor Calcium [Mass/Vol] 8.6 mg/dL Normal 8.5-10.1 [facility] Comment on above: Performed By: #### C MP #### [facility] [address] [address] [address] Soila Pastor Chloride [Moles/Vol] 110 mmol/L Critically high 98-107 [facility] Comment on above: Performed By: #### C MP #### [facility] [address] [address] [address] Soila Pastor CO2 [Moles/Vol] 26.2 mmol/L Normal 21.0-32.0 [facility] Comment on above: Performed By: #### C MP #### [facility] [address] [address] [address] Soila Pastor Creatinine [Mass/Vol] 0.74 mg/dL Normal 0.55-1.02 [facility] Comment on above: Performed By: #### C MP #### [facility] [address] [address] [address] Soila Pastor EGFR-AF KU[place]I >60 Normal >=60 [facility] Comment on above: Performed By: #### C MP #### [facility] [address] [address] [address] Soila Pastor EGFR-NON AF [place] >60 Normal >=60 [facility] Comment on above: Performed By: #### C MP #### [facility] [address] [address] [address] Soila Pastor Globulin (S) [Mass/Vol] 3.6 g/dL Normal [facility] Comment on above: Performed By: #### C MP #### [facility] [address] [address] [address] Soila Pastor Glucose [Mass/Vol] 119 mg/dL Critically high 74-106 [facility] Comment on above: Performed By: #### C MP #### [facility] [address] [address] [address] Soila Pastor Potassium [Moles/Vol] 3.3 mmol/L Critically low 3.5-5.1 [facility] Comment on above: Performed By: #### C MP #### [facility] [address] [address] [address] Soila Pastor Protein [Mass/Vol] 6.0 g/dL Critically low 6.4-8.2 [facility] Comment on above: Performed By: #### C MP #### [facility] [address] [place] [address] Dr. Soila Pastor Sodium [Moles/Vol] 145 mmol/L Normal 136-145 [facility] Comment on above: Performed By: #### C MP #### [facility] [address] [place] [address] Dr. Soila Pastor Urea nitrogen [Mass/Vol] 11.0 mg/dL Normal 7.0-18.0 [facility] Comment on above: Performed By: #### C MP #### [facility] [address] [place] [address] Dr. Soila Pastor Urea nitrogen/Creatinin e [Mass ratio] 14.9 mg/mg Normal [facility] Comment on above: Performed By: #### C MP #### [facility] [address] [place] [address] Dr. Soila Pastor CARDIAC KARYN 3-6on 3 CK [Catalytic activity/Vol] 251 U/L Critically high 26-192 [facility] Comment on above: Performed By: #### E RUR #### [facility] [address] [place] [address] Dr. Soila Pastor CK.MB [Mass/Vol] 4.50 ng/mL Critically high <=3.60 [facility] Comment on above: Performed By: #### E RUR #### [facility] [address] [place] [address] Dr. Soila Pastor HSTROP 6.9 pg/mL Normal 4.0-51.3 [facility] Comment on above: Result Comment: CUT- OFF POINTS HAVE BEEN ESTABLISHED BASED ON THE FOURTH UNIVERSAL DEFINITIONS OF MYOCARDIAL INFARCTION. THE UPPER REFERENCE LIMIT (URL) OF TROPONIN, DEFINED THE 99TH PERCENTILE OF cTnI DISTRIBUTION IN A REFERENCE POPULATION, HAS BEEN CONFIRMED THE DECISION THRESHOLD FOR HI DIAGNOSIS. Performed By: #### E RUR #### [facility] [address] [place] [address] Dr. Soila Pastor CK [Catalytic activity/Vol] 143 U/L Normal 26-192 [facility] Comment on above: Performed By: #### E RUR #### [facility] [address] [place] [address] Dr. Soila Pastor CK.MB [Mass/Vol] 4.50 ng/mL Critically high <=3.60 [facility] Comment on above: Performed By: #### E RUR #### [facility] [address] [place] [address] Dr. Soila Pastor HSTROP 8.9 pg/mL Normal 4.0-51.3 [facility] Comment on above: Result Comment: CUT- OFF POINTS HAVE BEEN ESTABLISHED BASED ON THE FOURTH UNIVERSAL DEFINITIONS OF MYOCARDIAL INFARCTION. THE UPPER REFERENCE LIMIT (URL) OF TROPONIN, DEFINED THE 99TH PERCENTILE OF cTnI DISTRIBUTION IN A REFERENCE POPULATION, HAS BEEN CONFIRMED THE DECISION THRESHOLD FOR HI DIAGNOSIS. Performed By: #### E RUR #### [facility] [address] [place] [address] Dr. Soila Pastor CBC AUTO DIFFon 10-15-2022 BASO # 0.0 103/ul Normal 0.0-0.1 [facility] Comment on above: Performed By: #### C BC #### [facility] [address] [place] [address] Dr. Soila Pastor Basophils/100 WBC (Bld) 0.2 % Normal 0.2-2.0 [facility] Comment on above: Performed By: #### C BC #### [facility] [address] [place] [address] Dr. Soila Pastor EO # 0.0 103/ul Normal 0.0-0.7 [facility] Comment on above: Performed By: #### C BC #### [facility] [address] [place] [address] Dr. Soila Pastor Eosinophils/100 WBC (Bld) 0.4 % Critically low 0.9-7.0 [facility] Comment on above: Performed By: #### C BC #### [facility] [address] [place] [address] Dr. Soila Pastor Erythrocyte distribution width (RBC) [Ratio] 13.7 % Normal 11.0-15.0 [facility] Comment on above: Performed By: #### C BC #### [facility] [address] [place] [address] Dr. Soila Pastor Hematocrit (Bld) [Volume fraction] 34.4 % Critically low 36.0-48.0 [facility] Comment on above: Performed By: #### C BC #### [facility] [address] [place] [address] Dr. Soila Pastor Hemoglobin (Bld) [Mass/Vol] 10.7 g/dL Critically low 12.0-16.0 [facility] Comment on above: Performed By: #### C BC #### [facility] [address] [place] [address] Dr. Soila Pastor IG # 0.21 10e3/ul Critically high 0.00-0.03 [facility] Comment on above: Performed By: #### C BC #### [facility] [address] [place] [address] Dr. Soila Pastor IG % 2.1 % Critically high 0.0-0.5 [facility] Comment on above: Performed By: #### C BC #### [facility] [address] [place] [address] Dr. Soila Pastor LYMPH # 0.9 103/ul Critically low 1.2-3.8 [facility] Comment on above: Performed By: #### C BC #### [facility] [address] [place] [address] Dr. Soila Pastor Lymphocytes/100 WBC (Bld) 8.9 % Critically low 20.5-60.0 [facility] Comment on above: Performed By: #### C BC #### [facility] [address] [place] [address] Dr. Soila Pastor MANUAL DIFF REQ NO Normal [facility] Comment on above: Performed By: #### C BC #### [facility] [address] [place] [address] Dr. Soila Pastor MCH (RBC) [Entitic mass] 30.7 pg Normal 26.7-34.0 [facility] Comment on above: Performed By: #### C BC #### [facility] [address] [address] [address] Soila Pastor MCHC (RBC) [Mass/Vol] 31.1 g/dL Normal 29.9-35.2 [facility] Comment on above: Performed By: #### C BC #### [facility] [address] [place] [address] Dr. Soila Pastor MCV (RBC) [Entitic vol] 98.9 fL Normal 81.0-99.0 [facility] Comment on above: Performed By: #### C BC #### [facility] [address] [place] [address] Dr. Soila Pastor MONO # 0.4 103/ul Normal 0.3-0.8 [facility] Comment on above: Performed By: #### C BC #### [facility] [address] [place] [address] Dr. Soila Pastor Monocytes/100 WBC (Bld) 4.3 % Normal 1.7-12.0 [facility] Comment on above: Performed By: #### C BC #### [facility] [address] [place] [address] Dr. Soila Pastor NEUT # 8.4 103/ul Critically high 1.4-6.5 [facility] Comment on above: Performed By: #### C BC #### [facility] [address] [place] [address] Dr. Soila Pastor Neutrophils/100 WBC (Bld) 84.1 % Critically high 43.0-75.0 [facility] Comment on above: Performed By: #### C BC #### [facility] [address] [place] [address] Dr. Soila Pastor Platelet mean volume (Bld) [Entitic vol] 12.2 fL Normal 9.5-13.5 [facility] Comment on above: Performed By: #### C BC #### [facility] [address] [address] [address] Soila Pastor PLT 160 103/ul Normal 150-450 [facility] Comment on above: Performed By: #### C BC #### [facility] [address] [address] [address] Soila Pastor RBC 3.48 106/ul Critically low 4.20-5.40 [facility] Comment on above: Performed By: #### C BC #### [facility] [address] [place] [address] Dr. Soila Pastor WBC 9.9 103/ul Normal 4.0-11.0 [facility] Comment on above: Performed By: #### C BC #### [facility] [address] [place] [address] Dr. Soila Pastor CULTURE URINEon 10-15-2022 CULTURE URINE Culture Observations : NO GROWTH. Normal [facility] Comment on above: Performed By: #### P OCGLUC #### [facility] [address] [place] [address] Dr. Soila Pastor MAGNESIUMon 10-15-2022 Magnesium [Mass/Vol] 1.8 mg/dL Normal 1.8-2.4 [facility] Comment on above: Performed By: #### T 4, MG #### [facility] [address] [place] [address] Dr. Soila Pastor POINT OF CARE GLUCOSEon 09-21 Glucose [Mass/Vol] 123 mg/dL Critically high 74-106 [facility] Comment on above: Performed By: #### P OCGLUC #### [facility] [address] [place] [address] Dr. Soila Pastor Glucose [Mass/Vol] 128 mg/dL Critically high 74-106 [facility] Comment on above: Performed By: #### E RUR #### [facility] [address] [place] [address] Dr. Soila Pastor Glucose [Mass/Vol] 111 mg/dL Critically high 74-106 [facility] Comment on above: Performed By: #### P OCGLUC #### [facility] [address] [place], [place] [id number] Dr. Soila Pastor PROF 14(COMP METB)on 023 Albumin [Mass/Vol] 2.3 g/dL Critically low 3.4-5.0 [facility] Comment on above: Performed By: #### C MP #### [facility] [address] [place] [address] Dr. Soila Pastor Albumin/Globulin [Mass ratio] 0.7 {ratio} Normal [facility] Comment on above: Performed By: #### C MP #### [facility] [address] [place] [address] Dr. Soila Pastor ALP [Catalytic activity/Vol] 70 U/L Normal 46-116 [facility] Comment on above: Performed By: #### C MP #### [facility] [address] [place] [address] Dr. Soila Pastor ALT [Catalytic activity/Vol] 11 U/L Critically low 14-59 [facility] Comment on above: Performed By: #### C MP #### [facility] [address] [place] [address] Dr. Soila Pastor Anion gap [Moles/Vol] 11.2 mmol/L Normal [facility] Comment on above: Performed By: #### C MP #### [facility] [address] [place] [address] Dr. Soila Pastor AST [Catalytic activity/Vol] 32 U/L Normal 15-37 [facility] Comment on above: Performed By: #### C MP #### [facility] [address] [place] [address] Dr. Soila Pastor Bilirubin [Mass/Vol] 0.5 mg/dL Normal 0.2-1.0 [facility] Comment on above: Performed By: #### C MP #### [facility] [address] [place] [address] Dr. Soila Pastor Calcium [Mass/Vol] 7.8 mg/dL Critically low 8.5-10.1 [facility] Comment on above: Performed By: #### C MP #### [facility] [address] [place] [address] Dr. Soila Pastor Chloride [Moles/Vol] 104 mmol/L Normal 98-107 [facility] Comment on above: Performed By: #### C MP #### [facility] [address] [address] [address] Soila Pastor CO2 [Moles/Vol] 26.4 mmol/L Normal 21.0-32.0 [facility] Comment on above: Performed By: #### C MP #### [facility] [address] [address] [address] Soila Pastor Creatinine [Mass/Vol] 1.05 mg/dL Critically high 0.55-1.02 [facility] Comment on above: Performed By: #### C MP #### [facility] [address] [place] [address] Dr. Soila Pastor EGFR-AF [place]I >60 Normal >=60 [facility] Comment on above: Performed By: #### C MP #### [facility] [address] [address] [address] Soila Pastor EGFR-NON AF [place]I 50 mL/min/1.73m2 Critically low >=60 [facility] Comment on above: Performed By: #### C MP #### [facility] [address] [address] [address] Soila Pastor Globulin (S) [Mass/Vol] 3.5 g/dL Normal [facility] Comment on above: Performed By: #### C MP #### [facility] [address] [address] [address] Soila Pastor Glucose [Mass/Vol] 153 mg/dL Critically high 74-106 [facility] Comment on above: Performed By: #### C MP #### [facility] [address] [address] [address] Soila Pastor Potassium [Moles/Vol] 4.6 mmol/L Normal 3.5-5.1 [facility] Comment on above: Performed By: #### C MP #### [facility] [address] [address] [address] Soila Pastor Protein [Mass/Vol] 5.8 g/dL Critically low 6.4-8.2 [facility] Comment on above: Performed By: #### C MP #### [facility] [address] [place] [address] Dr. Soila Pastor Sodium [Moles/Vol] 137 mmol/L Normal 136-145 [facility] Comment on above: Performed By: #### C MP #### [facility] [address] [place] [address] Dr. Soila Pastor Urea nitrogen [Mass/Vol] 19.0 mg/dL Critically high 7.0-18.0 [facility] Comment on above: Performed By: #### C MP #### [facility] [address] [place] [address] Dr. Soila Pastor Urea nitrogen/Creatinin e [Mass ratio] 18.1 mg/mg Normal [facility] Comment on above: Performed By: #### C MP #### [facility] [address] [place] [address] Dr. Soila Pastor T4on 10-15-2022 T4 [Mass/Vol] 7.30 ug/dL Normal 4.80-13.90 [facility] Comment on above: Performed By: #### T 4, MG #### [facility] [address] [place] [address] Dr. Soila Pastor ACETONE SERUMon 10-14-2022 ACETONE Negative Normal NEGATIVE [facility] Comment on above: Performed By: #### E RUR #### [facility] [address] [place] [address] Dr. Soila Pastor AMMONIAon 10-14-2022 Ammonia (P) [Moles/Vol] 24 umol/L Normal 11-32 [facility] Comment on above: Performed By: #### E RUR #### [facility] [address] [place] [address] Dr. Soila Pastor BLOOD GASES BTYon 10-14-2022 02 MODE ROOM AIR Normal [facility] Comment on above: Performed By: #### E RUR #### [facility] [address] [place] [address] Dr. Soila Pastor ALLENS TEST Positive [facility] Comment on above: Performed By: #### E RUR #### [facility] [address] [place] [address] Dr. Soila Pastor Base excess Calc (Bld) [Moles/Vol] 1.0 mmol/L Normal -2.0-2.0 [facility] Comment on above: Performed By: #### E RUR #### [facility] [address] [place] [address] Dr. Soila Pastor BIPAP PRESSURE [facility] Comment on above: Performed By: #### E RUR #### [facility] [address] [place] [address] Dr. Soila Pastor CPAP [facility] Comment on above: Performed By: #### E RUR #### [facility] [address] [place] [address] Dr. Soila Pastor FIO2 [facility] Comment on above: Performed By: #### E RUR #### [facility] [address] [place] [address] Dr. Soila Pastor HCO3 (Bld) [Moles/Vol] 26.0 mmol/L Normal 22.0-26.0 [facility] Comment on above: Performed By: #### E RUR #### [facility] [address] [place] [address] Dr. Soila Pastor LPM [facility] Comment on above: Performed By: #### E RUR #### [facility] [address] [place] [address] Dr. Soila Pastor MINUTE VOLUME Normal [facility] Comment on above: Performed By: #### E RUR #### [facility] [address] [place] [address] Dr. Soila Pastor Oxygen (Bld) [Partial pressure] 92.6 mm[Hg] Normal 80.0-100.0 [facility] Comment on above: Performed By: #### E RUR #### [facility] [address] [place] [address] Dr. Soila Pastor Oxygen saturation in Blood 97.0 % Normal 95.0-100.0 [facility] Comment on above: Performed By: #### E RUR #### [facility] [address] [place] [address] Dr. Soila Pastor PCO2 43.2 mmHg Normal 35.0-45.0 [facility] Comment on above: Performed By: #### E RUR #### [facility] [address] [place] [address] Dr. Soila Pastor [facility] Comment on above: Performed By: #### E RUR #### [facility] [address] [place] [address] Dr. Soila Pastor pH (Bld) 7.389 [pH] Normal 7.350-7.450 [facility] Comment on above: Performed By: #### E RUR #### [facility] [address] [place] [address] Dr. Soila Pastor [facility] Comment on above: Performed By: #### E RUR #### [facility] [address] [place] [address] Dr. Soila Pastor [facility] Comment on above: Performed By: #### E RUR #### [facility] [address] [place] [address] Dr. Soila Pastor PUNCTURE SITE LR [facility] Comment on above: Performed By: #### E RUR #### [facility] [address] [place] [address] Dr. Soila Pastor RATE [facility] Comment on above: Performed By: #### E RUR #### [facility] [address] [place] [address] Dr. Soila Pastor VENT MODE [facility] Comment on above: Performed By: #### E RUR #### [facility] [address] [place] [address] Dr. Soila Pastor [facility] Comment on above: Performed By: #### E RUR #### [facility] [address] [place] [address] Dr. Soila Pastor BNPon 10-14-2022 Natriuretic peptide B (Bld) [Mass/Vol] 432.0 pg/mL Normal <=1,800.0 [facility] Comment on above: Performed By: #### P OCGLUC #### [facility] [address] [place] [address] Dr. Soila Pastor CBC AUTO DIFFon 10-14-2022 BASO # 0.1 103/ul Normal 0.0-0.1 [facility] Comment on above: Performed By: #### P OCGLUC #### [facility] [address] [place] [address] Dr. Soila Pastor Basophils/100 WBC (Bld) 0.3 % Normal 0.2-2.0 [facility] Comment on above: Performed By: #### P OCGLUC #### [facility] [address] [place] [address] Dr. Soila Pastor EO # 0.3 103/ul Normal 0.0-0.7 [facility] Comment on above: Performed By: #### P OCGLUC #### [facility] [address] [place] [address] Dr. Soila Pastor Eosinophils/100 WBC (Bld) 1.7 % Normal 0.9-7.0 [facility] Comment on above: Performed By: #### P OCGLUC #### [facility] [address] [place] [address] Dr. Soila Pastor Erythrocyte distribution width (RBC) [Ratio] 13.5 % Normal 11.0-15.0 [facility] Comment on above: Performed By: #### P OCGLUC #### [facility] [address] [place] [address] Dr. Soila Pastor Hematocrit (Bld) [Volume fraction] 38.5 % Normal 36.0-48.0 [facility] Comment on above: Performed By: #### P OCGLUC #### [facility] [address] [place] [address] Dr. Soila Pastor Hemoglobin (Bld) [Mass/Vol] 12.2 g/dL Normal 12.0-16.0 [facility] Comment on above: Performed By: #### P OCGLUC #### [facility] [address] [address] [address] Soila Pastor IG # 0.06 10e3/ul Critically high 0.00-0.03 [facility] Comment on above: Performed By: #### P OCGLUC #### [facility] [address] [address] [address] Soila Pastor IG % 0.4 % Normal 0.0-0.5 [facility] Comment on above: Performed By: #### P OCGLUC #### [facility] [address] [address] [address] Soila Pastor LYMPH # 2.5 103/ul Normal 1.2-3.8 [facility] Comment on above: Performed By: #### P OCGLUC #### [facility] [address] [place] [address] Dr. Soila Pastor Lymphocytes/100 WBC (Bld) 17.2 % Critically low 20.5-60.0 [facility] Comment on above: Performed By: #### P OCGLUC #### [facility] [address] [place] [address] Dr. Soila Pastor MANUAL DIFF REQ NO Normal [facility] Comment on above: Performed By: #### P OCGLUC #### [facility] [address] [place] [address] Dr. Soila Pastor MCH (RBC) [Entitic mass] 30.0 pg Normal 26.7-34.0 [facility] Comment on above: Performed By: #### P OCGLUC #### [facility] [address] [place] [address] Dr. Soila Pastor MCHC (RBC) [Mass/Vol] 31.7 g/dL Normal 29.9-35.2 [facility] Comment on above: Performed By: #### P OCGLUC #### [facility] [address] [place] [address] Dr. Soila Pastor MCV (RBC) [Entitic vol] 94.8 fL Normal 81.0-99.0 [facility] Comment on above: Performed By: #### P OCGLUC #### [facility] [address] [address] [address] Soila Pastor MONO # 1.5 103/ul Critically high 0.3-0.8 [facility] Comment on above: Performed By: #### P OCGLUC #### [facility] [address] [address] [address] Soila Pastor Monocytes/100 WBC (Bld) 9.9 % Normal 1.7-12.0 [facility] Comment on above: Performed By: #### P OCGLUC #### [facility] [address] [address] [address] Soila Pastor NEUT # 10.3 103/ul Critically high 1.4-6.5 [facility] Comment on above: Performed By: #### P OCGLUC #### [facility] [address] [place] [address] Dr. Soila Pastor Neutrophils/100 WBC (Bld) 70.5 % Normal 43.0-75.0 [facility] Comment on above: Performed By: #### P OCGLUC #### [facility] [address] [address] [address] Soila Pastor Platelet mean volume (Bld) [Entitic vol] 11.3 fL Normal 9.5-13.5 [facility] Comment on above: Performed By: #### P OCGLUC #### [facility] [address] [address] [address] Soila Pastor PLT 151 103/ul Normal 150-450 [facility] Comment on above: Performed By: #### P OCGLUC #### [facility] [address] [address] [address] Soila Pastor RBC 4.06 106/ul Critically low 4.20-5.40 [facility] Comment on above: Performed By: #### P OCGLUC #### [facility] [address] [address] [address] Soila Pastor WBC 14.7 103/ul Critically high 4.0-11.0 [facility] Comment on above: Performed By: #### P OCGLUC #### [facility] [address] HEAD WO CONon [...] PAVEL SANCHEZ Date: 2022-10-14 20:13 Normal [facility] CULTURE BLOODon 10-14-2022 Microscopic examination of blood, culture Culture Observations: NO GROWTH AT 5 DAYS. Normal [facility] Comment on above: Performed By: #### P OCGLUC #### [facility] [address] [address] [address] Soila Pastor Microscopic examination of blood, culture Culture Observations: NO GROWTH AT 5 DAYS. Normal [facility] Comment on above: Performed By: #### P OCGLUC #### [facility] [address] [place] [address] Dr. Soila Pastor [facility] SARS-CoV-2 (COVID-19) RNA JERALD+probe Ql (Unsp spec) Not detected Normal NOT DETECTED [facility] Comment on above: Result Comment: When diagnostic [...] for this test is supported by the [place] of Health and Human Service's declaration that [...] longer be used). Performed By: #### [facility] #### [facility] [address] [place] [address] Dr. Soila Pastor ER URINE PROFILEon 3 Bilirubin Ql (U) Negative Normal NEGATIVE [facility] Comment on above: Performed By: #### E RUR #### [facility] [address] [place] [address] Dr. Soila Pastor Clarity (U) CLEAR Normal CLEAR [facility] Comment on above: Performed By: #### E RUR #### [facility] [address] [place] [address] Dr. Soila Pastor Color (U) YELLOW Normal YELLOW [facility] Comment on above: Performed By: #### E RUR #### [facility] [address] [place] [address] Dr. Soila Pastor ERUAHD A micrscopic examina tion will be performed if indicated. Normal [facility] Comment on above: Performed By: #### E RUR #### [facility] [address] [place] [address] Dr. Soila Pastor Glucose Ql (U) Negative Normal NEGATIVE [facility] Comment on above: Performed By: #### E RUR #### [facility] [address] [place] [address] Dr. Soila Pastor Hemoglobin Ql (U) Negative Normal NEGATIVE [facility] Comment on above: Performed By: #### E RUR #### [facility] [address] [place] [address] Dr. Soila Pastor Ketones Ql (U) TRACE Abnormal NEGATIVE [facility] Comment on above: Performed By: #### E RUR #### [facility] [address] [place] [address] Dr. Soila Pastor LEUKOCYTES Negative Normal NEGATIVE [facility] Comment on above: Performed By: #### E RUR #### [facility] [address] [place] [address] Dr. Soila Pastor Nitrite Ql (U) Negative Normal NEGATIVE [facility] Comment on above: Performed By: #### E RUR #### [facility] [address] [place] [address] Dr. Soila Pastor pH (U) 5.0 [pH] Normal 5-9 [facility] Comment on above: Performed By: #### E RUR #### [facility] [address] [place] [address] Dr. Soila Pastor SPEC GRAVITY 1.020 Normal 1.005-<=1.[address] [place] [address] Comment on above: Performed By: #### E RUR #### [facility] [address] [place] [address] Dr. Soila Pastor UA PROTEIN Negative Normal NEGATIVE/ TRACE [facility] Comment on above: Performed By: #### E RUR #### [facility] [address] [place] [address] Dr. Soila Pastor UR MICRO IND NOT INDICATED Normal [facility] Comment on above: Performed By: #### E RUR #### [facility] [address] [place] [address] Dr. Soila Pastor Urobilinogen Qn (U) 1.0 {Betsy'U}/dL Normal 0.2 - 1.0 [facility] Comment on above: Performed By: #### E RUR #### [facility] [address] [place] [address] Dr. Soila Pastor LACTATE/LACTIC ACIDon 2022 Lactate [Moles/Vol] 1.4 mmol/L Normal 0.4-2.0 [facility] Comment on above: Performed By: #### E RUR #### [facility] [address] [place] [address] Dr. Soila Pastor PH VENOUS BLOODon 10-14-2022 PCO2 VENOUS 47.6 mmHg Normal 40.0-52.0 [facility] Comment on above: Performed By: #### E RUR #### [facility] [address] [place] [address] Dr. Soila Pastor pH VENOUS 7.401 Normal 7.330-7.430 [facility] Comment on above: Performed By: #### E RUR #### [facility] [address] [place] [address] Dr. Soila Pastor PROF 14(COMP METB)on 023 Albumin [Mass/Vol] 3.2 g/dL Critically low 3.4-5.0 [facility] Comment on above: Performed By: #### P OCGLUC #### [facility] [address] [place] [address] Dr. Soila Pastor Albumin/Globulin [Mass ratio] 0.8 {ratio} Normal [facility] Comment on above: Performed By: #### P OCGLUC #### [facility] [address] [place] [address] Dr. Soila Pastor ALP [Catalytic activity/Vol] 85 U/L Normal 46-116 [facility] Comment on above: Performed By: #### P OCGLUC #### [facility] [address] [place] [address] Dr. Soila Pastor ALT [Catalytic activity/Vol] 13 U/L Critically low 14-59 [facility] Comment on above: Performed By: #### P OCGLUC #### [facility] [address] [place] [address] Dr. Soila Pastor Anion gap [Moles/Vol] 9.5 mmol/L Normal [facility] Comment on above: Performed By: #### P OCGLUC #### [facility] [address] [place], [place] [id number] Dr. Soila Pastor AST [Catalytic activity/Vol] 12 U/L Critically low 15-37 [facility] Comment on above: Performed By: #### P OCGLUC #### [facility] [address] [address] [address] Soila Pastor Bilirubin [Mass/Vol] 0.5 mg/dL Normal 0.2-1.0 [facility] Comment on above: Performed By: #### P OCGLUC #### [facility] [address] [address] [address] Soila Pastor Calcium [Mass/Vol] 9.0 mg/dL Normal 8.5-10.1 [facility] Comment on above: Performed By: #### P OCGLUC #### [facility] [address] [address] [address] Soila Pastor Chloride [Moles/Vol] 99 mmol/L Normal 98-107 [facility] Comment on above: Performed By: #### P OCGLUC #### [facility] [address] [address] [address] Soila Pastor CO2 [Moles/Vol] 32.0 mmol/L Normal 21.0-32.0 [facility] Comment on above: Performed By: #### P OCGLUC #### [facility] [address] [address] [address] Soila Pastor Creatinine [Mass/Vol] 1.55 mg/dL Critically high 0.55-1.02 [facility] Comment on above: Performed By: #### P OCGLUC #### [facility] [address] [address] [address] Soila Pastor EGFR-AF [place] 39 mL/min/1.73m2 Critically low >=60 [facility] Comment on above: Performed By: #### P OCGLUC #### [facility] [address] [address] [address] Soila Pastor EGFR-NON AF [place] 32 mL/min/1.73m2 Critically low >=60 [facility] Comment on above: Performed By: #### P OCGLUC #### [facility] [address] [address] [address] Soila Pastor Globulin (S) [Mass/Vol] 3.8 g/dL Normal [facility] Comment on above: Performed By: #### P OCGLUC #### [facility] [address] [address] [address] Soila Pastor Glucose [Mass/Vol] 125 mg/dL Critically high 74-106 [facility] Comment on above: Performed By: #### P OCGLUC #### [facility] [address] [address] [address] Soila Pastor Potassium [Moles/Vol] 3.5 mmol/L Normal 3.5-5.1 [facility] Comment on above: Performed By: #### P OCGLUC #### [facility] [address] [address] [address] Soila Pastor Protein [Mass/Vol] 7.0 g/dL Normal 6.4-8.2 [facility] Comment on above: Performed By: #### P OCGLUC #### [facility] [address] [address] [address] Soila Pastor Sodium [Moles/Vol] 137 mmol/L Normal 136-145 [facility] Comment on above: Performed By: #### P OCGLUC #### [facility] [address] [address] [address] Soila Pastor Urea nitrogen [Mass/Vol] 21.0 mg/dL Critically high 7.0-18.0 [facility] Comment on above: Performed By: #### P OCGLUC #### [facility] [address] [address] [address] Soila Pastor Urea nitrogen/Creatinin e [Mass ratio] 13.5 mg/mg Normal [facility] Comment on above: Performed By: #### P OCGLUC #### [facility] [address] [address] [address] Soila Pastor PROTIMEon 10-14-2022 INR Coag (PPP) [Relative time] 1.01 {INR} Normal [facility] Comment on above: Performed By: #### C VDTBH #### [facility] [address] [place] [address] Dr. Soila Pastor INR GUIDELINES SEE BELOW Normal [facility] Comment on above: Result Comment: [place] RED INR: 2.0 - 3.0 CONDITIONS NOT LISTED BELOW 2.5 - 3.5 FOR PROSTHETIC HEART VALVE REPLACEMENT 2.5 - 3.5 RECURRENT THROMBOSIS Performed By: #### C VDTBH #### [facility] [address] [place] [address] Dr. Soila Pastor PT Coag (PPP) [Time] 10.7 s Normal 9.0-11.6 [facility] Comment on above: Performed By: #### C VDTBH #### [facility] [address] [place] [address] Dr. Soila Pastor PTTon 10-14-2022 aPTT Coag (Bld) [Time] 31.5 s Normal 22.3-36.2 [facility] Comment on above: Performed By: #### E RUR #### [facility] [address] [place] [address] Dr. Soila Pastor TROPONIN, HIGH SENSITIVITYon 10-14-2022 HSTROP 8.8 pg/mL Normal 4.0-51.3 [facility] Comment on above: Result Comment: CUT- OFF POINTS HAVE BEEN ESTABLISHED BASED ON THE FOURTH UNIVERSAL DEFINITIONS OF MYOCARDIAL INFARCTION. THE UPPER REFERENCE LIMIT (URL) OF TROPONIN, DEFINED THE 99TH PERCENTILE OF cTnI DISTRIBUTION IN A REFERENCE POPULATION, HAS BEEN CONFIRMED THE DECISION THRESHOLD FOR HI DIAGNOSIS. Performed By: #### P OCGLUC #### [facility] [address] [place] [address] Dr. Soila Pastor TSHon 10-14-2022 TSH 1.240 uIU/mL Normal 0.358-3.740 [facility] Comment on above: Performed By: #### P OCGLUC #### [facility] [address] [place] [address] Dr. Soila Pastor XR ANKLE LT MIN 3 Von 2022 XR ANKLE LT MIN 3 V EXAM: XR ANKLE LT MIN 3 V HISTORY: Unspecified fall COMPARISON: None. TECHNIQUE: 3 view study FINDINGS: Overall bony architecture is normal. Ankle mortise relationships are intact. A plantar calcaneal enthesophyte is noted. Soft tissue swelling about the ankle is noted. IMPRESSION: No acute bone or joint abnormality at the ankle. Electronically authenticated by: Selin MCCALL Date: 2022-10-14 20:16 Normal [facility] XR CHEST 1 Von 10-14-2022 XR CHEST [...] KAELA HOOKER Date: 2022-10-14 20:15 Normal [facility] XR CHEST 2 Von 10-14-2022 XR CHEST [...] by: KARYN WASHINGTON Date: 2022-10-14 11:33 Normal [facility] CT CSPINE WO CONon 3 CT CSPINE WO CON EXAMINATION: CT CSPI NE WO CON HISTORY: The patient is an [...] REED LYNNE Date: 2022-08-24 18:47 Normal [facility] CT HEAD WO CONon 08-24-2022 CT HEAD [...] AMAYA FRENCH Date: 2022-08-24 18:57 Normal [facility] XR KNEE RT 4V or >on 023 [...] VIKY WILLIAMSON Date: 2022-08-24 18:59 Normal [facility] US THYROIDon 05-29-2022 US THYROID EXAMINATION: US THYR OID HISTORY: Non-toxic multinodular goiter COMPARISON: 01/07/2022 TECHNIQUE: [...] left thyroid nodules, grossly stable TI-RADS: The [employer] TI-RADS committee's white paper recommendations for thyroid lesions classified as TR4 (moderately suspicious) are listed below: > 1.0 cm. Follow-up ultrasound in 1, 2, 3, and 5 years. > 1.5 cm. FNA. J. Am Nikunj Radiol 2017;14:587-595. Electronically authenticated by: CARLOS SOOD Date: 2022-05-29 11:51 Normal [facility] VAS LAB Carotid Artery Dupl ex Ultrasounon 04-14-2022 VAS LAB Carotid Artery Duplex Ultrasoun [address], Suite [facility], [place] [address] Vascular Lab Report Carotid Artery Duplex Ultrasound Patient Name: JAQUELIN MTZE Reading Physician: [id number] Martha Navas MD, [facility] Study Date: 04/14/2022 Referring XOCHITL HERNANDEZ Physician: MRN/PID: [id number] PCP: Yossi Landers Accession/Order#: [id number] CC Report to: Date of : 1940 Technologist: Eleanor Marcus RDCS, [place] Gender: F Technologist 2: Admission Status: Outpatient Location Performed: 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 Indication: CAD, Cardiomyopathy, Dyspnea, Obesity, COPD, Diabetes, HTN, Hyperlipidemia, Former Smoker Procedure/CPT: 33956 Cerebrovascular Carotid Duplex scan complete-[id number] CONCLUSIONS: Right Carotid: Findings are consistent with [...] cm/s Right Left ICA/CCA Ratio 1.5 1.9 [id number] Martha Navas MD, FACC Final Normal [facility] VASC LAB Carotid Artery Dupl ex Ultrasoundon 04-14-2022 US.doppler Carotid arteries [facility] [place] [address] [place] Work Phone: Height or Weight NOT Doneon 02-26-2022 Fall risk assessment a) No falls within the last year [facility] [place] [address] [place] Work Phone: Tobacco use status CPHS b) No [facility] [place] [address] [place] Work Phone: Office Visit (Cardiology)on [...] Carotid Artery Duplex Ultrasound; Status:Hold For - Scheduling,Retrospective Authorization; Requested for:[id number]; Laterality : Bilateral SocHx: Former smoker Tobacco Use Screening; Status:Complete; Done: [id number] Patient Instructions Please bring all medicines, vitamins, [...] Follow up in 6-7 months Chief Complaint JAQUELIN NORWOOD is being seen for a 4 [...] carotid Doppler 1 1 Amended By: Xochitl Hernandez; Feb 26 2022 4:00 PM ESTSurgical History [...] Oral CapsuleTAKE 2 CAPSULES TWICE A DAY HYDROcodone-Acetaminophen 7.5-325 MG Oral TabletTAKE 1 TABLET 3 [...] 4-5 servings (more content not included)... Normal [facility] US THYROIDon 01-08-2022 US THYROID EXAMINATION: US THYR OID HISTORY: Non-toxic uninodular goiter COMPARISON: Ultrasound thyroid [...] one year is recommended. TR 4: The [employer] TI-RADS committee's white paper recommendations for thyroid lesions classified as TR4 (moderately suspicious) are listed below: > 1.0 cm. Follow-up ultrasound in 1, 2, 3, and 5 years. > 1.5 cm. FNA. J. Am Nikunj Radiol 2017;14:587-595. Electronically authenticated by: AMAYA DEACONMARY Date: 2022-01-08 08:44 Normal [facility] CREATININEon 12-30-2021 Creatinine [Mass/Vol] 1.03 mg/dL Critically high 0.55-1.02 [facility] Comment on above: Performed By: #### P OCGLUC #### [facility] [address] [address] [address] Soila Pastor EGFR-AF KUWAITI >60 Normal >=60 [facility] Comment on above: Performed By: #### P OCGLUC #### [facility] [address] [address] [address] Soila Pastor EGFR-NON AF KUWAITI 52 mL/min/1.73m2 Critically low >=60 [facility] Comment on above: Performed By: #### P OCGLUC #### [facility] [address] W [...] and absent right lobe LYMPH NODES: No pathological-appearing or enlarged lymph nodes. VASCULATURE: Moderate atherosclerosis [...] by: CARLOS SOOD Date: 2021-12-30 21:32 Normal [facility] XR MODIFIED BARIUM SWALLOWon 12-05-2021 [...] by: AMAYA GRAMAJO Date: 2021-12-05 17:48 Normal [facility] Echocardiogramon 11-11-[address], [address] [place] [address] TRANSTHORACIC ECHOCARDIOGRAM REPORT Patient Name: JAQUELIN GARZA Odalis Physician: [id number] Xochitl NORWOOD MD Study Date: 11/11/2021 Referring Physician: Blanca HERNANDEZ MRN/PID: [id number] PCP: Yossi Landers Accession/Order#: [id number] Department Location: [facility] Date of : 1940 Fellow: Gender: F Nurse: Admit Date: Computer Science Instructor: Eleanor Marcus RD, T Height: 162.56 cm CC Report to: Weight: 94.80 kg Study Type: Echocardiogram BSA: 1.99 m2 Blood Pressure: 124 /62 mmHg Diagnosis/ICD: I42.9-Cardiomyopathy, unspecified; R06.00-Dyspnea, unspecified Indication: CAD, HTN, Hyperlipidemia, Former Smoker, Bilateral Carotid Stenosis, Obesity Procedure/CPT: Echo Complete w Full Doppler-[id number] Study Detail: The following Echo studies were [...] 0.9 m/s (0.6-0.9m/s) PV Max P.3 mmHg [id number] Xochitl Hernandez MD Electronically signed on 11/13/2021 at 4:32:53 PM Final Normal [facility] Office Visit (Cardiology)on 10-15-2021 Follow-up visit Diagnoses/Problems [...] food Cardiomyopathy, Dyspnea Echocardiogram; Status:Hold For - Scheduling,Retrospective Authorization; Requested for:15Oct2021; Class 2 severe obesity with serious comorbidity and body mass index (BMI) of 35.0 to 35.9 in adult Healthy Weight Tips; Status:Complete - Retrospective Authorization; Done: [id number] Coronary artery disease without angina pectoris Renew: Aspirin EC 81 MG Oral Tablet Delayed Release; TAKE 1 TABLET DAILY DIRECTED Continue with our present treatment plan.; Status:Complete - Retrospective Authorization; Done: [id number] SocHx: Former smoker Tobacco Use Screening; Status:Complete; Done: [id number] Patient Instructions By signing my name below, Alla Irvin Lpn, Scribe, attest that this documentation has been prepared under the direction and in the presence of Dr. Xochitl Hernandez MD. All medical record entries made by [...] up in 4-5 months Retrieve records from [facility] Chief Complaint overdue. JAQUELIN NORWOOD is being seen for an annual [...] EVERY DAY (more content not included)... Normal [facility] Tobacco Screening.on 022 Adult depression screening assessment No [facility] [place] [address] [place] Work Phone: Fall risk assessment a) No falls within the last year [facility] [place] [address] [place] Work Phone: Tobacco use status CPHS b) No [facility] [place] [address] [place] Work Phone: US thyroidon 02-15-2019 thyroid [facility] [address] [place] [id number] Ultrasound Report Signed Patient: Jaquelin Norwood MR#: [id number] : 1940 Acct:[id number] Age/Sex: 78 / F ADM Date: 02/15/19 Loc: Room: Type: [facility] Attending Dr: Bel Ojeda Jr, MD Ordering Provider: Bel Ojeda Jr, MD Date of Service: 02/15/19 US/US thyroid: LEFT THYROID NODULE Copies to: Bel Ojeda Jr, MD Thyroid ultrasound 02/15/2019. CLINICAL [...] Gupta Jr., M.D.02/15/2019 4:06 PM Dictation Location: [place] [address] Tech: Lyudmila Mendez Transcribed By: SHANTELLE 02/15/19 1606 Dictated By: Nabeel Gupta Jr, MD 02/15/19 1554 Signed By: 02/15/19 1606 [facility] US thyroidon 08-31-2018 US thyroid [facility] [place] [address] Ultrasound Report Signed Patient: Jaquelin Norwood MR#: [id number] : 1940 Acct:[id number] Age/Sex: 78 / F ADM Date: 08/31/18 Loc: Room: Type: [facility] Attending Dr: Bel Ojeda Jr, MD Ordering Provider: Bel Ojeda Jr, MD Date of Service: 08/31/18 US/US thyroid: E04.1 Copies to: Bel Ojeda Jr, MD US thyroid 08/31/2018 10:53 [...] and 5 are recommended according to the [employer] thyroid imaging and reporting data system. Impression dictated by: Karyn Nogueira M.D.08/31/2018 1:49 PM Dictation Location: [place] [address] Tech: Leigh Syed Transcribed By: SHANTELLE 08/31/18 1349 Dictated By: Karyn Nogueira II, MD 08/31/18 1342 Signed By: 08/31/18 1349 [facility] Vital Signs Date Time Vital Sign Value Performing Clinician Facility 07-29-2024 09:00-0500 Body height 165.1 cm Kristen Nataliia DO Work Phone: [facility] 07-29-2024 09:00-0500 Body mass index (BMI) [Ratio] 31.12 kg/m2 Kristen Nataliia DO Work Phone: [facility] 07-29-2024 09:00-0500 Body weight 84.82 kg Kristen Nataliia DO Work Phone: [facility] 07-29-2024 09:00-0500 Diastolic blood pressure 71 mm[Hg] Kristen Nataliia DO Work Phone: [facility] 07-29-2024 09:00-0500 Heart rate 63 /min Kristen Nataliia DO Work Phone: [facility] 07-29-2024 09:00-0500 SaO2% (BldA) [Mass fraction] 88 % Kristen Nataliia DO Work Phone: [facility] 07-29-2024 09:00-0500 Systolic blood pressure 123 mm[Hg] Kristen Nataliia DO Work Phone: [facility] 07-25-2024 10:50-0500 Body height 165.1 cm Yossi Landers MD Work Phone: [facility] 07-25-2024 10:50-0500 Body mass index (BMI) [Ratio] 31.12 kg/m2 Yossi Landers MD Work Phone: [facility] 07-25-2024 10:50-0500 Body weight 84.82 kg Yossi Landers MD Work Phone: [facility] 07-25-2024 10:50-0500 Diastolic blood pressure 70 mm[Hg] Yossi Landers MD Work Phone: [facility] 07-25-2024 10:50-0500 Heart rate 86 /min Yossi Landers MD Work Phone: [facility] 07-25-2024 10:50-0500 SaO2% (BldA) [Mass fraction] 97 % Yossi Landers MD Work Phone: [facility] 07-25-2024 10:50-0500 Systolic blood pressure 122 mm[Hg] Yossi Landers MD Work Phone: [facility] 07-21-2024 16:16-0500 Body height 165.1 cm Alessandro Levi DPM Work Phone: [facility] 07-21-2024 16:16-0500 Body mass index (BMI) [Ratio] 29.62 kg/m2 Alessandro Levi DPM Work Phone: [facility] 07-21-2024 16:16-0500 Body weight 80.74 kg Alessandro Levi DPM Work Phone: [facility] 07-21-2024 16:16-0500 Respiratory rate 18 /min Alessandro Levi DPM Work Phone: [facility] 07-12-2024 14:17-0500 Body height 165.1 cm Bel Ojeda MD Work Phone: [facility] 07-12-2024 14:17-0500 Body mass index (BMI) [Ratio] 29.62 kg/m2 Bel Ojeda MD Work Phone: [facility] 07-12-2024 14:17-0500 Body weight 80.74 kg Bel Ojeda MD Work Phone: [facility] 07-12-2024 14:17-0500 Diastolic blood pressure 60 mm[Hg] Bel Ojeda MD Work Phone: [facility] 07-12-2024 14:17-0500 Heart rate 69 /min Bel Ojeda MD Work Phone: [facility] 07-12-2024 14:17-0500 Systolic blood pressure 117 mm[Hg] Bel Ojeda MD Work Phone: [facility] 06-10-2024 10:50-0500 Body height 165.1 cm Yossi Landers MD Work Phone: [facility] 06-10-2024 10:50-0500 Body mass index (BMI) [Ratio] 29.62 kg/m2 Yossi Landers MD Work Phone: [facility] 06-10-2024 10:50-0500 Body weight 80.74 kg Yossi Landers MD Work Phone: [facility] 06-10-2024 10:50-0500 Diastolic blood pressure 68 mm[Hg] Yossi Landers MD Work Phone: [facility] 06-10-2024 10:50-0500 Heart rate 77 /min Yossi Landers MD Work Phone: [facility] 06-10-2024 10:50-0500 SaO2% (BldA) [Mass fraction] 98 % Yossi Landers MD Work Phone: [facility] 06-10-2024 10:50-0500 Systolic blood pressure 126 mm[Hg] Yossi Landers MD Work Phone: [facility] 05-16-2024 13:06-0500 Body height 165.1 cm Yossi Landers MD Work Phone: [facility] 05-16-2024 13:06-0500 Diastolic blood pressure 70 mm[Hg] Yossi Landers MD Work Phone: [facility] 05-16-2024 13:06-0500 Heart rate 65 /min Yossi Landers MD Work Phone: [facility] 05-16-2024 13:06-0500 SaO2% (BldA) [Mass fraction] 99 % Yossi Landers MD Work Phone: [facility] 05-16-2024 13:06-0500 Systolic blood pressure 124 mm[Hg] Yossi Landers MD Work Phone: [facility] 05-02-2024 11:10-0500 Body height 165.1 cm Yossi Landers MD Work Phone: [facility] 05-02-2024 11:10-0500 Body mass index (BMI) [Ratio] 29.79 kg/m2 Yossi Landers MD Work Phone: [facility] 05-02-2024 11:10-0500 Body weight 81.19 kg Yossi Landers MD Work Phone: [facility] 05-02-2024 11:10-0500 Diastolic blood pressure 66 mm[Hg] Yossi Landers MD Work Phone: [facility] 05-02-2024 11:10-0500 Heart rate 73 /min Yossi Landers MD Work Phone: [facility] 05-02-2024 11:10-0500 SaO2% (BldA) [Mass fraction] 97 % Yossi Landers MD Work Phone: [facility] 05-02-2024 11:10-0500 Systolic blood pressure 118 mm[Hg] Yossi Landers MD Work Phone: [facility] 04-28-2024 13:43-0500 Body height 165.1 cm Alessandro Levi DPM Work Phone: [facility] 04-28-2024 13:43-0500 Body mass index (BMI) [Ratio] 31.95 kg/m2 Alessandro Levi DPM Work Phone: [facility] 04-28-2024 13:43-0500 Body weight 87.09 kg Alessandro Levi DPM Work Phone: [facility] 04-28-2024 13:43-0500 Diastolic blood pressure 80 mm[Hg] Alessandrogabriela Levi DPM Work Phone: [facility] 04-28-2024 13:43-0500 Heart rate 82 /min Alessandro Levi DPM Work Phone: [facility] 04-28-2024 13:43-0500 Systolic blood pressure 126 mm[Hg] Alessandro Levi DPM Work Phone: [facility] 03-08-2024 10:42-0400 Blood Pressure Location Mohamad Mouchli [facility] 03-08-2024 10:42-0400 Diastolic blood pressure 85 mm[Hg] Mohamad Mouchli [facility] 03-08-2024 10:42-0400 Heart rate 80 /min Mohamad Mouchli [facility] 03-08-2024 10:42-0400 Mean blood pressure 102 mm[Hg] Mohamad Mouchli [facility] 03-08-2024 10:42-0400 Respiratory rate 15 /min Mohamad Mouchli [facility] 03-08-2024 10:42-0400 SaO2% (BldA) [Mass fraction] 97 % Mohamad Mouchli [facility] 03-08-2024 10:42-0400 Systolic blood pressure 137 mm[Hg] Mohamad Mouchli [facility] 03-08-2024 10:30-0400 Blood Pressure Location Mohamad Mouchli [facility] 03-08-2024 10:30-0400 Diastolic blood pressure 94 mm[Hg] Mohamad Mouchli [facility] 03-08-2024 10:30-0400 Heart rate 82 /min Mohamad Mouchli [facility] 03-08-2024 10:30-0400 Mean blood pressure 106 mm[Hg] Mohamad Mouchli [facility] 03-08-2024 10:30-0400 Respiratory rate 27 /min Mohamad Mouchli [facility] 03-08-2024 10:30-0400 SaO2% (BldA) [Mass fraction] 99 % Mohamad Mouchli [facility] 03-08-2024 10:30-0400 Systolic blood pressure 129 mm[Hg] Mohamad Mouchli [facility] 03-08-2024 10:25-0400 Blood Pressure Location Mohamad Mouchli [facility] 03-08-2024 10:25-0400 Diastolic blood pressure 57 mm[Hg] Mohamad Mouchli [facility] 03-08-2024 10:25-0400 Heart rate 82 /min Mohamad Mouchli [facility] 03-08-2024 10:25-0400 Mean blood pressure 78 mm[Hg] Mohamad Mouchli [facility] 03-08-2024 10:25-0400 Respiratory rate 17 /min Mohamad Mouchli [facility] 03-08-2024 10:25-0400 SaO2% (BldA) [Mass fraction] 98 % Mohamad Mouchli [facility] 03-08-2024 10:25-0400 Systolic blood pressure 120 mm[Hg] Mohamad Mouchli [facility] 03-08-2024 10:17-0400 Body temperature 97.34 [degF] Mohamad Mouchli [facility] 03-08-2024 08:46-0400 Body temperature 98.06 [degF] Mohamad Mouchli [facility] 03-08-2024 08:46-0400 Respiratory rate 20 /min Mohamad Mouchli [facility] 02-18-2024 13:23-0400 Body height 165.1 cm Alessandro Brown DPM Work Phone: [facility] 02-18-2024 13:23-0400 Body mass index (BMI) [Ratio] 31.95 kg/m2 Alessandro Levi DPM Work Phone: [facility] 02-18-2024 13:23-0400 Body weight 87.09 kg Alessandro Levi DPM Work Phone: [facility] 02-18-2024 13:23-0400 Diastolic blood pressure 80 mm[Hg] Alessandro Levi DPM Work Phone: [facility] 02-18-2024 13:23-0400 Heart rate 88 /min Alessandro Levi DPM Work Phone: [facility] 02-18-2024 13:23-0400 Systolic blood pressure 125 mm[Hg] Alessandro Levi DPM Work Phone: [facility] 02-03-2024 10:52-0400 Diastolic blood pressure 67 mm[Hg] Mohamad Mouchli [facility] 02-03-2024 10:52-0400 Heart rate 80 /min Mohamad Mouchli [facility] 02-03-2024 10:52-0400 Mean blood pressure 87 mm[Hg] Mohamad Mouchli [facility] 08-14-2024 10:52-0400 Respiratory rate 29 /min Mohamad Mouchli [facility] 02-03-2024 10:52-0400 SaO2% (BldA) [Mass fraction] 100 % Mohamad Mouchli [facility] 02-03-2024 10:52-0400 Systolic blood pressure 127 mm[Hg] Mohamad Mouchli [facility] 02-03-2024 10:45-0400 Diastolic blood pressure 67 mm[Hg] Mohamad Mouchli [facility] 02-03-2024 10:45-0400 Heart rate 76 /min Mohamad Mouchli [facility] 02-03-2024 10:45-0400 Mean blood pressure 87 mm[Hg] Mohamad Mouchli [facility] 02-03-2024 10:45-0400 Respiratory rate 22 /min Mohamad Mouchli [facility] 02-03-2024 10:45-0400 SaO2% (BldA) [Mass fraction] 99 % Mohamad Mouchli [facility] 02-03-2024 10:45-0400 Systolic blood pressure 127 mm[Hg] Mohamad Mouchli [facility] 02-03-2024 10:40-0400 Diastolic blood pressure 67 mm[Hg] Mohamad Mouchli [facility] 02-03-2024 10:40-0400 Heart rate 76 /min Mohamad Mouchli [facility] 02-03-2024 10:40-0400 Mean blood pressure 87 mm[Hg] Mohamad Mouchli [facility] 02-03-2024 10:40-0400 Respiratory rate 28 /min Mohamad Mouchli [facility] 02-03-2024 10:40-0400 SaO2% (BldA) [Mass fraction] 100 % Mohamad Mouchli [facility] 02-03-2024 10:40-0400 Systolic blood pressure 127 mm[Hg] Mohamad Mouchli [facility] 02-03-2024 10:30-0400 Blood Pressure Location Mohamad Mouchli [facility] 02-03-2024 10:30-0400 Body temperature 97.7 [degF] Mohamad Mouchli [facility] 02-03-2024 10:25-0400 Respiratory rate 10 /min Mohamad Mouchli [facility] 02-03-2024 10:20-0400 Respiratory rate 10 /min Mohamad Mouchli [facility] 02-03-2024 10:15-0400 Respiratory rate 10 /min Mohamad Mouchli [facility] 02-03-2024 08:55-0400 Blood Pressure Location Mohamad Mouchli [facility] 02-03-2024 08:55-0400 Body temperature 97.7 [degF] Mohamad Mouchli [facility] 12-21-2023 13:43-0400 Blood Pressure Location Mohamad Mouchli [facility] 12-21-2023 13:43-0400 Diastolic blood pressure 78 mm[Hg] Mohamad Mouchli [facility] 12-21-2023 13:43-0400 Heart rate 76 /min Aldodianne Frankojalen [facility] 12-21-2023 13:43-0400 Respiratory rate 16 /min Aldodianne Silveriosalina [facility] 12-21-2023 13:43-0400 Systolic blood pressure 118 mm[Hg] Aldodianne Frankojalen [facility] 02-26-2022 15:04-0400 Body height 162.56 cm Xochitl Hernandez MD Work Phone: [facility] [address] DO Work Phone: 02-26-2022 15:04-0400 Body mass index (BMI) [Ratio] Medical Reason Not Done Xochitl Hernandez MD Work Phone: [facility] [address] DO Work Phone: 02-26-2022 15:04-0400 Diastolic blood pressure 64 mm[Hg] Xochitl Hernandez MD Work Phone: [facility] [address] DO Work Phone: 02-26-2022 15:04-0400 Heart rate 72 /min Xochitl Hernandez MD Work Phone: [facility] 250 DO Work Phone: 02-26-2022 15:04-0400 Systolic blood pressure 120 mm[Hg] Xochitl Hernandez MD Work Phone: [facility] 250 DO Work Phone: 10-15-2021 12:59-0400 Body height 162.56 cm Xochitl Hernandez MD Work Phone: [facility] 250 DO Work Phone: 10-15-2021 12:59-0400 Body mass index (BMI) [Ratio] 35.87 kg/m2 Xochitl Hernandez MD Work Phone: [facility] 250 DO Work Phone: 10-15-2021 12:59-0400 Body surface area Derived from formula 1.99 m2 Xochitl Hernandez MD Work Phone: [facility] 250 DO Work Phone: 10-15-2021 12:59-0400 Body weight 94.8 kg Xochitl Hernandez MD Work Phone: [facility] 250 DO Work Phone: 10-15-2021 12:59-0400 Diastolic blood pressure 68 mm[Hg] Xochitl Hernandez MD Work Phone: [facility] 250 DO Work Phone: 10-15-2021 12:59-0400 Heart rate 66 /min Xochitl Hernandez MD Work Phone: [facility] 250 DO Work Phone: 10-15-2021 12:59-0400 Systolic blood pressure 124 mm[Hg] [facility]l [facility] MD [facility] Work Phone: Encounters Encounter Date Encounter Type Care Provider Facility Start: 08-06-2024 End: 08-08-2024 Refbritton Landers MD Work Phone: [facility] Comment on above: Nausea Degenerative lumbar spinal stenosis; Depression with anxiety Start: 07-29-2024 End: 07-29-2024 Bamboo flowsheet Kristen William DO Work Phone: [facility] Start: 07-29-2024 End: 07-29-2024 Bamboo flowsheet Kristen K Nataliia DO Work Phone: [facility] Start: 07-29-2024 End: 07-29-2024 Office outpatient new 45 minutes Kristen William DO Work Phone: [facility] Comment on above: Hypersomnolence (Melvi radames Dx); Panlobular emphysema (CMS/HCC) Start: 07-29-2024 End: 07-29-2024 ambulatory KRISTEN Fatoumata WILLIAM Not Available Start: 07-25-2024 End: 07-25-2024 Bamboo flowsheet Yossi Landers MD Work Phone: [facility] Start: 07-25-2024 End: 07-25-2024 Bamboo flowsheet Yossi Landers MD Work Phone: [facility] Start: 07-25-2024 End: 07-25-2024 Office outpatient visit 25 minutes Yossi Landers MD Work Phone: [facility] Comment on above: Panlobular emphysema (CMS/HCC) (Primary Dx); Moderate recurrent major depression (CMS/HCC); Depression with anxiety; Exudative age-related macular degeneration, unspecified eye, stage unspecified (CMS/HCC); 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) Start: 07-25-2024 End: 07-25-2024 ambulatory YOSSI LANDERS Not Available Start: 07-21-2024 End: 07-21-2024 Patient encounter procedure Alessandro Levi DPM Work Phone: [facility] Comment on above: Type 2 diabetes gail itus with diabetic neuropathy, without long-term current use of insulin (CMS/HCC) (Primary Dx); Pain due to onychomycosis of toenails of both feet; Venous insufficiency Start: 07-21-2024 End: 07-21-2024 ambulatory ALESSANDRO LEVI Not Available Start: 07-21-2024 End: 07-21-2024 Bamboo flowsheet Alessandro Levi DPM Work Phone: [facility] Start: 07-21-2024 End: 07-21-2024 Bamboo flowsheet Alessandro Levi DPM Work Phone: [facility] Start: 07-12-2024 End: 07-12-2024 Office outpatient visit 15 minutes Bel Ojeda MD Work Phone: [facility] Comment on above: Nontoxic single thyr oid nodule (CMS/HCC) (Primary Dx) Start: 07-12-2024 End: 07-12-2024 ambulatory BEL OJEDA Not Available Start: 07-03-2024 End: 07-04-2024 Refill Salud Mason PA Work Phone: [facility] Comment on above: Degenerative lumbar spinal stenosis; Depression with anxiety Start: 06-10-2024 End: 06-10-2024 Bamboo flowsheet Yossi Landers MD Work Phone: [facility] Start: 06-10-2024 End: 06-10-2024 Bamboo flowsheet Yossi Landers MD Work Phone: [facility] Start: 06-10-2024 End: 06-10-2024 Office outpatient visit 25 minutes Yossi Landers MD Work Phone: [facility] Comment on above: Panlobular emphysema (CMS/HCC) (Primary Dx); COPD with acute exacerbation (CMS/HCC); Acute cystitis without hematuria; Symptomatic cholelithiasis; 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); Depression with anxiety Start: 06-10-2024 End: 06-10-2024 ambulatory YOSSI LANDERS Not Available Start: 05-31-2024 End: 06-01-2024 Refill Yossi Landers MD Work Phone: [facility] Comment on above: Degenerative lumbar spinal stenosis; Depression with anxiety Start: 05-16-2024 End: 05-16-2024 Bamboo flowsheet Yossi Landers MD Work Phone: [facility] Start: 05-16-2024 End: 05-16-2024 Bamboo flowsheet Yossi Landers MD Work Phone: [facility] Start: 05-16-2024 End: 05-16-2024 Office outpatient visit 25 minutes Yossi Landers MD Work Phone: [facility] Comment on above: Panlobular emphysema (CMS/HCC) (Primary Dx); 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); Symptomatic cholelithiasis Start: 05-16-2024 End: 05-16-2024 ambulatory YOSSI LANDERS Not Available Start: 05-03-2024 End: 05-03-2024 ambulatory YOSSI LANDERS Not Available Start: 05-02-2024 End: 05-02-2024 Bamboo flowsmellisa Landers MD Work Phone: [facility] Start: 05-02-2024 End: 05-02-2024 Bamboo flowsmellisa Landers MD Work Phone: [facility] Start: 05-02-2024 End: 05-02-2024 Office outpatient visit 25 minutes Yossi Landers MD Work Phone: [facility] Comment on above: Type 2 diabetes gail itus with diabetic neuropathy, without long-term current use of insulin (CMS/HCC) (Primary Dx); Degenerative lumbar spinal stenosis; Allergic rhinitis, unspecified; Depression with anxiety; 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); Panlobular emphysema (CMS/HCC); Symptomatic cholelithiasis Start: 05-02-2024 End: 05-02-2024 ambulatory YOSSI LANDERS Not Available Start: 04-28-2024 End: 04-28-2024 Bamboo flowsheet Alessandro Levi DPM Work Phone: [facility] Start: 04-28-2024 End: 04-28-2024 Bamboo flowsheet Alessandro Levi DPM Work Phone: [facility] Start: 04-28-2024 End: 04-28-2024 Patient encounter procedure Alessandro Levi DPM Work Phone: [facility] Comment on above: Type 2 diabetes gail itus with diabetic neuropathy, without long-term current use of insulin ([facility]) (Primary Dx); Pain due to onychomycosis of toenails of both feet; Venous insufficiency Start: 04-28-2024 End: 04-28-2024 ambulatory ALESSANDRO LEVI Not Available Start: 2024 End: 2024 Refill Bel Ojeda MD Work Phone: [facility] Comment on above: Sore throat Start: 03-30-2024 End: 03-30-2024 Refill Yossi Landers MD Work Phone: [facility] Comment on above: Depression with anxi ety; Degenerative lumbar spinal stenosis Start: 03-08-2024 End: 03-08-2024 ambulatory Mandi Glez [place] [place]: 03-08-2024 End: 03-08-2024 Patient encounter procedure Mandi Glez [facility] Start: 03-02-2024 End: 03-02-2024 Refill Salud PALACIOS Work Phone: [facility] Comment on above: Depression with anxi ety; Degenerative lumbar spinal stenosis Start: 02-18-2024 End: 02-18-2024 Bamboo flowsheet Alessandro Levi DPM Work Phone: [facility] Start: 02-18-2024 End: 02-18-2024 Bamboo flowsheet Alessandro Levi DPM Work Phone: [facility] Start: 02-18-2024 End: 02-18-2024 Office outpatient new 30 minutes Alessandro Levi DPM Work Phone: [facility] Comment on above: Venous insufficiency (Primary Dx); Thickened nail; Type 2 diabetes mellitus with diabetic neuropathy, without long-term current use of insulin (CMS/HCC); Onychomycosis; Toe pain, bilateral Start: 02-18-2024 End: 02-18-2024 ambulatory ALESSANDRO ELVI Not Available Start: 02-03-2024 End: 02-03-2024 ambulatory Mandi Glez [place] Start: 02-03-2024 End: 02-03-2024 Patient encounter procedure Mandi Glez [facility] Start: 01-28-2024 End: 01-28-2024 ambulatory SALUD FLOODMER Not Available Start: 01-20-2024 End: 01-20-2024 ambulatory YOSSI LANDERS Not Available Start: 12-28-2023 End: 12-28-2023 ambulatory YOSSI LANDERS Not Available Start: 12-21-2023 End: 12-21-2023 ambulatory Mandi Glez [facility] Start: 12-21-2023 End: 12-21-2023 Patient encounter procedure Mandi Glez [facility] Start: 12-14-2023 End: 12-14-2023 ambulatory YOSSI LANDERS Not Available Start: 12-07-2023 ambulatory Mandi Glez Facilit y:Young arellano Start: 11-23-2023 End: 11-23-2023 ambulatory SALUD MASON Not Available Start: 11-02-2023 End: 11-02-2023 ambulatory YOSSI LANDERS Not Available Start: 10-26-2023 End: 10-26-2023 ambulatory BEL PACEMIS Not Available Start: 10-12-2023 End: 10-12-2023 ambulatory YOSSI LANDERS Not Available Start: 08-10-2023 End: 08-10-2023 ambulatory YOSSI LANDERS Not Available Start: 08-03-2023 Refill Lara Thursday Rubens MURDOCK Work Phone: [facility] Comment on above: Degenerative lumbar spinal stenosis; Depression with anxiety Start: 07-27-2023 Refill Yossi Landers MD Work Phone: [facility] Comment on above: Essential hypertensi on (CMS/HCC) Start: 10-15-2022 End: 10-16-2022 Evaluation and management of inpatient TANYA BUCHANANP . Facility:[facility] Start: 10-14-2022 End: 10-15-2022 ambulatory KARYN WASHINGTON Facility:[facility] Start: 08-24-2022 End: 08-24-2022 ambulatory LAYNE TERRAZAS Facility:[facility] Start: 05-29-2022 End: 05-30-2022 ambulatory BEL OJEDA Facility:[facility] Start: 04-14-2022 Patient encounter procedure [id number] RU[facility] ULTRASOUND 01 [facility] [place] Work Phone: Start: 04-14-[address] Xochitl Hernandez Facility:[id number] Start: 02-26-2022 Office outpatient vi sit 25 minutes Xochitl Hernandez MD Work Phone: [facility] Work Phone: Start: 01-07-2022 End: 01-08-2022 ambulatory BEL OJEDA Facility:[facility] Start: 12-30-2021 End: 12-31-[address] YOSSI LANDERS Facility:[facility] Start: 12-05-2021 End: 12-06-[address] YOSSI LANDERS Facility:[facility] Start: 11-11-[address] Xochitl Hernandez Facility:[id number] Start: 10-15-2021 Office outpatient vi sit 25 minutes Xochitl Hernandez MD Work Phone: [facility] Work Phone: Procedures Date Procedure Procedure Detail Performing Clinician Start: 05-03-2024 Brncdilat rspse spmtry pre&post-brncdilat admn Yossi Landers MD Work Phone: Start: 05-02-2024 Hemoglobin glycosylated a1c Yossi faustin MD Work Phone: Start: 03-08-2024 Sigmoidoscopy Mandi Glez Start: 02-03-2024 Colonoscopy Mandi Glez Start: 02-03-2024 Esophagogastroduodenoscopy Mandi rao Colonoscopy Xochitl banerjee MD Work Phone: H/O: surgery History of gastr ic surgery Mandi Sawyersalina Hernia repair Xochitl patel MD Work Phone: Hysterectomy Xochitl banerjee MD Work Phone: Procedure on back Xochitl rodriguez MD Work Phone: Surgical procedure Xochitl amador MD Work Phone: Plan of Treatment Date Care Activity Detail Author Start: 01-27-2025 Urine screening for protein Diabetes: Urine Protein Screening [facility] Start: 10-06-2024 End: 10-06-2024 Patient encounter procedure [facility] Start: 09-23-2024 End: 09-23-2024 Patient encounter procedure 09/23/2024 11:00 AM EDT Office Visit [facility] [address] [place] [phone] Kristen William, DO [address] [place] [address] [facility] Start: 09-22-2024 End: 09-22-2024 Patient encounter procedure 09/22/2024 11:30 AM EDT Office Visit [facility] [address] [facility] [address] [place] [phone] Yossi Landers MD [address] [facility] [address] [place], [place] [id number] [facility] Start: 08-02-2024 Hemoglobin A1c measurement Diabetes: Hemoglobin A1C [facility] Start: 07-29-2024 End: 07-29-2024 Patient encounter procedure [facility] Comment on above: Panlobular emphysema ([facility]) Start: 07-25-2024 End: 07-25-2024 Patient encounter procedure [facility] Comment on above: Arrived Start: 07-21-2024 End: 07-21-2024 Patient encounter procedure [facility] Comment on above: Type 2 diabetes gail itus with diabetic neuropathy, without long-term current use of insulin ([facility]) (Primary Dx); Pain due to onychomycosis of toenails of both feet; Venous insufficiency Start: 07-12-2024 End: 07-12-2024 Patient encounter procedure 07/12/2024 2:20 PM EST Office Visit [facility] [address] [place] [address] Bel Ojeda MD [address] [place] [address] [facility] Start: 07-07-2024 End: 07-07-2024 Patient encounter procedure 07/07/2024 1:40 PM EST Office Visit [facility] [address] [place] [address] Alessandro Levi, DPM [address] [facility] [address] [place] [address] [facility] Start: 06-30-2024 End: 06-30-2024 Patient encounter procedure 06/30/2024 11:45 AM EST Office Visit [facility] [address] [place] [address] Yossi Landers MD [address] [place] [address] [facility] Start: 06-10-2024 End: 06-10-2024 Patient encounter procedure [facility] Comment on above: Arrived Start: 05-16-2024 End: 05-16-2024 Patient encounter procedure [facility] Comment on above: Arrived Start: 05-02-2024 End: 05-02-2024 Patient encounter procedure 05/02/2024 11:30 AM EST Office Visit [facility] [address] [facility] [address] [place] [address] Yossi Landers MD 112 [facility] [address] [place] [address] [facility] Start: 04-28-2024 End: 04-28-2024 Patient encounter procedure [facility] Comment on above: Type 2 diabetes gail itus with diabetic neuropathy, without long-term current use of insulin ([facility]) (Primary Dx); Pain due to onychomycosis of toenails of both feet; Venous insufficiency Start: 03-15-2024 Hemoglobin A1c measurement Diabetes: Hemoglobin A1C [facility] Start: 02-21-2024 Influenza vaccination Influenza Vacc ine (#1) [facility] Start: 02-18-2024 End: 02-18-2024 Patient encounter procedure 02/18/2024 1:20 PM EDT Office Visit [facility] [address] [facility] [address] [place] [phone] Alessandro Levi DPM [address] [facility] 5 [place] [address] Thickened nail; Type 2 diabetes mellitus with diabetic neuropathy, without long-term current use of insulin (CMS/HCC) [facility] Comment on above: Thickened nail; Type 2 diabetes mellitus with diabetic neuropathy, without long-term current use of insulin (CMS/HCC) Start: 02-10-2024 Medicare Annual Well ness (AWV) Medicare Annual Wellness (AWV) [facility] Start: 08-10-2023 End: 08-10-2023 Patient encounter procedure [facility] Start: 05-12-2023 Hemoglobin A1c measurement Diabetes: Hemoglobin A1C [facility] Start: 02-20-2023 Influenza vaccination Influenza Vacc ine (#1) [facility] Start: 08-12-2022 FUV, Provider: Xochitl Hernandez, Status: Pen, Time: 2:20 PM FUV, Provider: Xochitl Hernandez, Status: Pen, Time: 2:20 PM [facility] Work Phone: Start: 04-14-2022 CAROTID, Provider: ERICA STALLWORTHI ULTRASOUND 01,[id number], Status: Pen, Time: 10:45 AM CAROTID, Provider: ERICA HHVI ULTRASOUND 01,[id number], Status: Pen, Time: 10:45 AM [facility] Work Phone: Start: 02-26-2022 FUV, Provider: Xochitl Hernandez, Status: Pen, Time: 2:40 PM FUV, Provider: Xochitl Hernandez, Status: Pen, Time: 2:40 PM [facility] Work Phone: Start: 11-11-2021 ECHO, Provider: MEERA KHAN [facility] ULTRASOUND 01,[id number], Status: Pen, Time: 10:45 AM ECHO, Provider: ERICA [facility] ULTRASOUND 01,[id number], Status: Pen, Time: 10:45 AM [facility] 250 DO Work Phone: Start: 07-30-2020 Glaucoma screening Diabetes: R etinopathy Screening [facility] Start: 06-17-2018 Pneumococcal Vaccine : 65+ Years (2 - PPSV23 or PCV20) Pneumococcal Vaccine: 65+ Years (2 - PPSV23 or PCV20) [facility] Start: 06-17-2018 Pneumococcal Vaccine : 65+ Years (2 of 2 - PPSV23 or PCV20) Pneumococcal Vaccine: 65+ Years (2 of 2 - PPSV23 or PCV20) [facility] Echocardiogram 2D complete Echocardiogram 2D complete Echocardiography Routine 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) Ordered: 05/02/2024 [facility] Work Phone: Comment on above: Ordered: 05/02/2024 Immunizations Immunization Date Immunization Notes Care Provider Fa cili 09-16-2020 Pf[employer] COVID-19 Vacc 30 MCG/0.3ML Intramuscular Suspension Xochitl Hernandez MD Work Phone: [facility] 250 DO Work Phone: 08-25-2020 Pf[employer] COVID-19 Vacc 30 MCG/0.3ML Intramuscular Suspension Xochitl Hernandez MD Work Phone: [facility] 250 DO Work Phone: 05-07-2018 pneumococcal conjuga te vaccine, 13 valent Xochitl Hernandez MD Work Phone: [facility] 250 DO Work Phone: 04-22-2018 pneumococcal conjuga te vaccine, 13 valent Xochitl Hernandez MD Work Phone: [facility] 11-28-2015 zoster vaccine, live Xochitl Hernandez MD Work Phone: [facility] 01-10-2015 zoster vaccine, live Xochitl Hernandez MD Work Phone: [facility] Payers Date Payer Category Payer Medicare HU[employer]NA MEDICARE ADVANTAGE HU[employer]NA MEDICARE [id number] 2022-Present [address] [place] [id number] 2022 Medicare (Managed Care) HUMANA EDICARE ADVANTAGE [id number] 2022 Private Health Insurance [id number] 1959 Medicaid [id number] 1959 Medicare [id number] 1942 Unknown [id number] 2.16.840.1.041732.3.579.2. 1068 1942 Unknown [id number] 2.16.840.1.478691.3.579.2. 1068 1942 Unknown [id number] 2.16.840.1.201367.3.579.2. 593 1942 Unknown [id number] 2.16.840.1.217780.3.579.2. 593 1942 Unknown [id number] 2.16.840.1.639942.3.579.2. 593 1942 Unknown [id number] 2.16.840.1.445535.3.579.2. 593 1942 Unknown [id number] 2.16.840.1.825342.3.579.2. 593 1942 Unknown [id number] 2.16.840.1.772071.3.579.2. 593 1942 Unknown [id number] 2.16.840.1.974623.3.579.2. 593 1942 Unknown [id number] 2.16.840.1.606275.3.579.2. 727 1942 Unknown [id number] 2.16.840.1.948448.3.579.2. 727 1942 Unknown [id number] 2.16.840.1.341312.3.579.2. 727 1942 Unknown [id number] 2.16.840.1.600204.3.579.2. 1259 1942 Unknown [id number] 2.16.840.1.901614.3.579.2. 1259 1942 Unknown [id number] 2.16.840.1.650696.3.579.2. 1258 1942 Unknown [id number] 2.16.840.1.616058.3.579.2. 1258 1942 Unknown [id number] 2.16.840.1.672363.3.579.2. 1258 1942 Unknown [id number] 2.16.840.1.119401.3.579.2. 1258 1942 Unknown [id number] 2.16.840.1.608211.3.579.2. 1258 1942 Unknown [id number] 2.16.840.1.198152.3.579.2. 1258 1942 Unknown [id number] 2.16.840.1.010217.3.579.2. 1258 1942 Unknown [id number] 2.16.840.1.676007.3.579.2. 1258 1942 Unknown [id number] 2.16.840.1.421492.3.579.2. 1258 1942 Unknown [id number] 2.16.840.1.334763.3.579.2. 1258 1942 Unknown [id number] 2.16.840.1.546992.3.579.2. 1258 1942 Unknown [id number] 2.16.840.1.047094.3.579.2. 1258 1942 Unknown [id number] 2.16.840.1.956528.3.579.2. 1258 1942 Unknown [id number] 2.16.840.1.154210.3.579.2. 1258 1942 Unknown [id number] 2.16.840.1.956937.3.579.2. 1258 1942 Unknown [id number] 2.16.840.1.915143.3.579.2. 1258 1942 Unknown [id number] 2.16.840.1.664323.3.579.2. 1259 Unknown Social History Date Type Detail Facility Start: 11-12-2022 End: 07-25-2024 No alcohol use No alcohol use [facility] Comment on above: 4-5 servings daily; quit 1995, 2ppd; Start: 11-20-2022 End: 02-18-2024 Tobacco smoking status [facility] Ex-smoker [facility] Work Phone: End: 10-27-2012 History of tobacco use Current smoker [facility] End: 10-27-2012 History of tobacco use Cigarette Smoker [facility] Start: 11-20-2022 End: 02-18-2024 Tobacco use and exposure Smokeless tobacco non-user [facility] Start: 07-20-2023 End: 07-29-2024 Alcohol intake Ex-drinker (finding) [facility] Start: 11-12-2022 End: 07-25-2024 Humiliation, Afraid, Rape, and Kick questionnaire [HARK] [...] Not at all [facility] (I/We) worried whewarren er (my/our) food would run out before [...] At Not on file [facility] How often to you hav e a drink containing alcohol? Never [facility] Medical Equipment Procedure Code Equipment Code Equipment Origin al Text Equipment Identifier Dates [id number] Start: 11-05-2022 USE 1 LANCET TO TEST BLOOD SUGAR ONCE DAILY [id number] Start: 11-05-2022 Functional Status Date Assessment Result Facility 03-08-2024 Functional Status N/A Jonh Perez [facility] 12-21-2023 Functional Status N/A [facility] Clinical Notes 10-15-2020 to 08-08-2024 Telephone Encounter - PHILIP Magallanes - 08/08/2024 7:50 AM ESTTelephone Encounter - PHILIP Magallanes - 08/08/2024 7:50 AM ESTTelephone Encounter - PHILIP Magallanes - 08/08/2024 7:49 AM EST Note Date & Type Note Facility 08-08-2024 Telephone encount er Note OARRS reviewed, Rx sent into patient's pharmacy. [facility] 08-08-2024 Miscellaneous Notes Formattin g of this note might be different from the original. OARRS reviewed, Rx sent into patient's pharmacy. documented in this encounter [facility] 08-08-2024 Telephone encount er Note Soraidafrdayne Sent [facility] 08-08-2024 Miscellaneous Notes Formattin g of this note might be different from the original. Zofran Sent documented in this encounter [facility] 07-29-2024 History of Presen t illness Narrative Images from the original note were not included. Jaquelin Norwood presents today for COPD. She was referred by primary care provider. She is accompanied by her ixighkii-dw-epv at today's office visit. She does give a history of COPD for many years. She was recently placed on Breztri. She is unsure how long she has been on this medication. She states she has been obtaining this through her primary care provider via samples. She does have albuterol that she also uses twice daily. She is unsure whether the Breztri was helping her breathing at all or not. She states she has been off for last 2 days. Her bmbiuroo-sv-gjp her states that she believes they were sent here because the patient ultimately will need a cholecystectomy. It does appear she had a HIDA scan several months ago. Upon review her primary care physician's note she does have symptomatic cholelithiasis. She has yet to be referred to general surgery for further evaluation. The patient denies any complaints of chest pain or palpitations. She denies any fevers, chills, or sweats. She does note shortness breath with exertion. The patient states that she does get short of breath when she is up going as short distances to the bathroom. Her daughter states she does use a walker while at home. She does also complain of some occasional excessive daytime sleepiness. She does go to bed around 5:00 p.m. but does not go to sleep at that time. She does generally wake up around 5:00 a.m.. She does wake up on occasion sweating in the middle of the night. She does also get up in the middle night to go to the bathroom quite frequently. She is a former smoker. She did have a chest x-ray PFTs performed prior to today's office visit. Allergies Allergen Reactions Benztropine Mesylate Hallucinations Naproxen Swelling gogo oral edema Benztropine Other Vioxx [Rofecoxib] Current Outpatient Medications Medication Sig Dispense Refill albuterol (2.5 MG/3ML) 0.083% nebulizer solution Take 2.5 mg by nebulization every 8 (eight) hours if needed. albuterol HFA (ProAir HFA) 90 mcg/act inhaler Inhale 2 puffs every 4 (four) hours if needed. ALPRAZolam (Xanax) 0.25 MG tablet Take 1 tablet (0.25 mg) by mouth 2 (two) times a day as needed for anxiety 60 tablet 0 aspirin 81 MG EC tablet Take 81 mg by mouth 1 (one) time each day at the same time. atorvastatin (Lipitor) 40 MG tablet TAKE 1 TABLET EVERY MORNING 90 tablet 3 Blood Glucose Monitoring Suppl ([employer] TOUCH Galaxy Digital 2) w/Device kit Inject under the skin 1 (one) time each day. Szzgzie-Irrwreoqdkd-Nbkkntwiil (Breztri Aerosphere) 160-9-4.8 MCG/ACT aerosol Inhale 2 puffs in the morning and 2 puffs before bedtime. 10.7 g 11 carvedilol (Coreg) 12.5 MG tablet TAKE 1 TABLET (12.5 MG) BY MOUTH IN THE MORNING AND 1 TABLET (12.5 MG) BEFORE BEDTIME. 180 tablet 3 [employer] Stool Softener 100 MG capsule Take 100 mg by mouth in the morning and 100 mg before bedtime. DULoxetine (Cymbalta) [address] capsule TAKE 1 CAPSULE EVERY MORNING 90 capsule 3 famotidine (Pepcid) 20 MG tablet TAKE 1 TABLET BY MOUTH AT BEDTIME 90 tablet 0 furosemide (Lasix) 40 MG tablet TAKE 1 TABLET EVERY MORNING 90 tablet 3 gabapentin (Neurontin) 100 MG capsule Take 2 capsules (200 mg) by mouth in the morning and 2 capsules (200 mg) before bedtime. 360 capsule 3 glucose blood (True Metrix Blood Glucose Test) test strip 1 each by Other route 1 (one) time each day at the same time. HYDROcodone-acetaminophen ([place]) 7.5-325 MG tablet Take 1 tablet by mouth every 6 (six) hours if needed for severe pain 120 tablet 0 Lancets (SkillWizTouch Delica Plus [id number]) [facility] [place] 1 LANCET TO TEST BLOOD SUGAR ONCE DAILY levothyroxine (Synthroid, Levoxyl) 100 MCG tablet TAKE 1 TABLET (100 MCG) BY MOUTH IN THE MORNING. TAKE BEFORE MEALS. 90 tablet 3 linaCLOtide (Linzess) 290 MCG capsule Take by mouth lisinopril 5 MG tablet TAKE 1 TABLET EVERY MORNING 90 tablet 3 loratadine (Claritin) 10 MG tablet Take 1 tablet (10 mg) by mouth Daily 100 tablet 3 meclizine (Antivert) 12.5 MG tablet Take 12.5 mg by mouth 3 (three) times a day as needed for dizziness. Multiple Vitamins-Minerals (OCUVITE ADULT 50+ PO) Take by mouth 1 (one) time each day. mupirocin (Bactroban) 2 % ointment nitroglycerin (Nitrostat) 0.[address] 0.4 mg under the tongue every 5 (five) minutes if needed. nystatin (Mycostatin) ointment every 12 (twelve) hours. omeprazole (PriLOSEC) [address] capsule TAKE 1 CAPSULE (40 MG) BY MOUTH IN THE MORNING. TAKE BEFORE MEALS. 90 capsule 3 ondansetron (Zofran) 4 MG tablet Take 2 tablets (8 mg) by mouth every 8 (eight) hours if needed for nausea or vomiting 60 tablet 1 Xtqewnrvuhe-Dzehemlow-Emtllh (Trelegy Ellipta) 100-62.5-25 MCG/ACT aerosol powder Inhale 1 puff Daily 1 each 5 No current facility-administered medications for this visit. Past Medical History: Diagnosis Date Acquired hypothyroidism ([facility]) Acute exacerbation of chronic obstructive pulmonary disease ([facility]) 07/16/2016 Anxiety state ([facility]) Cardiomegaly Chronic airway obstruction ([facility]) Chronic back pain spinal stenosis Depressive disorder ([facility]) Diabetes mellitus without complication ([facility]) Diabetes mellitus without mention of complication, type II or unspecified type, not stated as uncontrolled Encephalopathy 10/14/2022 Essential hypertension, benign ([facility]) Former smoker 08/15/2017 H/O being hospitalized 02/20/2020 Resp. Distress, Hypoxia, JONE, LLL Pneumonia, Sepsis History of echocardiogram 02/21/2020 ECHO EF 65-70% Lt [facility] Severely Dilated (02/21/2020) Hyperlipidemia, unspecified ([facility]) Hypertonicity of bladder Left thyroid nodule ([facility]) Morbid obesity ([facility]) 07/04/2019 Osteoarthrosis Peripheral vascular disease, unspecified ([facility]) Unspecified combined systolic (congestive) and diastolic (congestive) heart failure ([facility]) Past Surgical History: Procedure Laterality Date BACK SURGERY repair herniated disc COLONOSCOPY 2010 COLONOSCOPY W/ POLYPECTOMY 03/08/2024 EGD 02/03/2024 W/ Esophageal Dilation FLEXIBLE SIGMOIDOSCOPY 02/03/2024 FNA W IMAGING GUIDANCE thyroid 03/22/19, 07/08/21 HYSTERECTOMY OTHER SURGICAL HISTORY 01/15/2001 LT common iliac artery stent, Dr. Cortes OTHER SURGICAL HISTORY 09/22/2003 LT SFA stent, Dr. Cortes THYROID SURGERY partial thyroidectomy Family History Problem Relation Name Age of Onset Heart failure Mother Diabetes Mother Cancer Mother Heart disease Mother Cancer Father Diabetes Sister Heart disease Brother Social History Tobacco Use Smoking status: Former Current packs/day: 0.00 Types: Cigarettes Quit date: 10/27/2012 Years since quittin.7 Smokeless tobacco: Never Substance Use Topics Alcohol use: Not Currently Comment: caffeine intake: 2-3 cups per day of coffee BP 123/71 (BP Location: Left arm, Patient Position: Sitting) Pulse 63 Ht 5' 5 Wt 187 lb SpO2 (!) 88% BMI 31.12 kg/m Exam: Heart: regular rate Lungs: clear to auscultation bilaterally, no wheezes/rales/rhonchi, no resp distress Extremities: no edema noted, no visible rashes Neuro: alert, oriented x3 Imaging Reviewed: Images and report of chest x-ray from December 2023 reviewed-- no acute infiltrate or evidence of cardiac decompensation, the overall appearance of the chest is essentially unchanged PFT's from April 2024 reviewed--FVC 2 point 1 1 L ( 82 %), FEV1 0.91 L (47 %), ratio 43 %, no significant bronchodilator response, no hyperinflation present, air trapping present, normal DLCO Echocardiogram report from May 2024 reviewed -- normal LV chamber size, borderline LV hypertrophy, ejection fraction 60 %, no regional wall abnormalities, normal right ventricular chamber size, decreased RV systolic function, small pericardial effusion with fibrinous appearance, no evidence of tamponade, IVC is dilated and does not fully collapse consistent with elevated central venous pressure, atrial pressure 15 mm Hg, no significant valvular abnormalities, no comment on RVSP Assessment/Plan: COPD -- her PFTs do demonstrate evidence of severe obstruction consistent with COPD. She is currently using Breztri twice daily and albuterol twice daily as well. She is unsure whether the Breztri has been helpful or not. She states she has been obtaining this through her primary care provider. At this time we did have a discussion in regards to her current medication regimen. We discussed the possibility of changing her inhalers are round and using Trelegy as opposed to Breztri. She is willing to give this a try to see if this will help her breathing. She was given samples and a prescription at today's office visit. She will continue to use albuterol on an as needed basis. There is also comment in her primary care provider's note in regards to pulmonary hypertension. However I did review her echocardiogram from May and this did not comment on any elevated right-sided pressures. Her RVSP was not measured on this echocardiogram. She did have elevated right atrial pressures consistent with volume overload. Her [id number]-[id number] states there were no adjustments made to her medications at that time. The patient would benefit from an increase in her diuresis if able to tolerate from hemodynamic and renal function standpoint. We did also have a discussion regarding possibility of a sleep study. However the patient is not interested in proceeding at this time. Hypersomnolence -- clinically she does have some signs and symptoms consistent with sleep apnea. She does complain of excessive daytime sleepiness. She does get up in the middle of night to urinate quite a bit. She does also have some sweating when she wakes up in the morning. I do feel that she may have a component of sleep apnea. We discussed testing and treatment. At this time she is not interested in proceeding with any testing and/or treatment. She would like to try adjustments of her inhaled medications. We will discuss this again at her next office visit. Follow up in about 2 months (around 09/26/2024) for COPD. Kristen William DO documented in this encounter [facility] 07-25-2024 History of Presen t illness Narrative Subjective Patient ID: Jaquelin Norwood is a 84 y.o. female who presents for AD (Adjustment Disorder). Pt made medication changes stopped wellbutrin and started samples of rexulti -she has 1 week of samples left Pt reports she feels her anxiety and depression are better on current medication Tolerating medication well Current Outpatient Medications on File Prior to Visit Medication Sig Dispense Refill albuterol (2.5 MG/3ML) 0.083% nebulizer solution Take 2.5 mg by nebulization every 8 (eight) hours if needed. albuterol HFA (ProAir HFA) 90 mcg/act inhaler Inhale 2 puffs every 4 (four) hours if needed. ALPRAZolam (Xanax) 0.25 MG tablet Take 1 tablet (0.25 mg) by mouth 2 (two) times a day as needed for anxiety 60 tablet 0 aspirin 81 MG EC tablet Take 81 mg by mouth 1 (one) time each day at the same time. atorvastatin (Lipitor) 40 MG tablet TAKE 1 TABLET EVERY MORNING 90 tablet 3 Blood Glucose Monitoring Suppl (ONE TOUCH ULTRA 2) w/Device kit Inject under the skin 1 (one) time each day. Ktqpgwj-Voloraavjju-Bkrfpjkkyo (Breztri Aerosphere) 160-9-4.8 MCG/ACT aerosol Inhale 2 puffs in the morning and 2 puffs before bedtime. 10.7 g 11 carvedilol (Coreg) 12.5 MG tablet TAKE 1 TABLET (12.5 MG) BY MOUTH IN THE MORNING AND 1 TABLET (12.5 MG) BEFORE BEDTIME. 180 tablet 3 [facility] Stool Softener 100 MG capsule Take 100 mg by mouth in the morning and 100 mg before bedtime. DULoxetine (Cymbalta) [address] capsule TAKE 1 CAPSULE EVERY MORNING 90 capsule 3 famotidine (Pepcid) 20 MG tablet TAKE 1 TABLET BY MOUTH AT BEDTIME 90 tablet 0 furosemide (Lasix) 40 MG tablet TAKE 1 TABLET EVERY MORNING 90 tablet 3 gabapentin (Neurontin) 100 MG capsule Take 2 capsules (200 mg) by mouth in the morning and 2 capsules (200 mg) before bedtime. 360 capsule 3 glucose blood (True Metrix Blood Glucose Test) test strip 1 each by Other route 1 (one) time each day at the same time. HYDROcodone-acetaminophen ([place]) 7.5-325 MG tablet Take 1 tablet by mouth every 6 (six) hours if needed for severe pain 120 tablet 0 Lancets (OneTouch Delica Plus [id number][place] [facility] LANCET TO TEST BLOOD SUGAR ONCE DAILY levothyroxine (Synthroid, Levoxyl) 100 MCG tablet TAKE 1 TABLET (100 MCG) BY MOUTH IN THE MORNING. TAKE BEFORE MEALS. 90 tablet 3 linaCLOtide (Linzess) 290 MCG capsule Take by mouth lisinopril 5 MG tablet TAKE 1 TABLET EVERY MORNING 90 tablet 3 loratadine (Claritin) 10 MG tablet Take 1 tablet (10 mg) by mouth Daily 100 tablet 3 meclizine (Antivert) 12.5 MG tablet Take 12.5 mg by mouth 3 (three) times a day as needed for dizziness. Multiple Vitamins-Minerals (OCUVITE ADULT 50+ PO) Take by mouth 1 (one) time each day. mupirocin (Bactroban) 2 % ointment nitroglycerin (Nitrostat) 0.[address] 0.4 mg under the tongue every 5 (five) minutes if needed. nystatin (Mycostatin) ointment every 12 (twelve) hours. omeprazole (PriLOSEC) [address] capsule TAKE 1 CAPSULE (40 MG) BY MOUTH IN THE MORNING. TAKE BEFORE MEALS. 90 capsule 3 ondansetron (Zofran) 4 MG tablet Take 2 tablets (8 mg) by mouth every 8 (eight) hours if needed for nausea or vomiting 60 tablet 1 No current facility-administered medications on file prior to visit. I have reviewed and reconciled the history and medication list with the patient today. Allergies Allergen Reactions Benztropine Other Benztropine Mesylate Other Reaction(s): hallucinations Naproxen Other Reaction(s): gogo oral edema Vioxx [Rofecoxib] Social History Tobacco Use Smoking status: Former Current packs/day: 0.00 Types: Cigarettes Quit date: 10/27/2012 Years since quittin.7 Smokeless tobacco: Never Vaping Use Vaping status: Never Used Substance Use Topics Alcohol use: Not Currently Comment: caffeine intake: 2-3 cups per day of coffee Drug use: Not Currently Family History Problem Relation Name Age of Onset Heart failure Mother Diabetes Mother Cancer Mother Cancer Father Past Medical History: Diagnosis Date Acquired hypothyroidism ([facility]) Acute exacerbation of chronic obstructive pulmonary disease ([facility]) 07/16/2016 Anxiety state ([facility]) Cardiomegaly Chronic airway obstruction ([facility]) Chronic back pain spinal stenosis Depressive disorder ([facility]) Diabetes mellitus without complication ([facility]) Diabetes mellitus without mention of complication, type II or unspecified type, not stated as uncontrolled Encephalopathy 10/14/2022 Essential hypertension, benign ([facility]) Former smoker 08/15/2017 H/O being hospitalized 02/20/2020 Resp. Distress, Hypoxia, JONE, LLL Pneumonia, Sepsis History of echocardiogram 02/21/2020 ECHO EF 65-70% [facility] Severely Dilated (02/21/2020) Hyperlipidemia, unspecified ([facility]) Hypertonicity of bladder Left thyroid nodule ([facility]) Morbid obesity ([facility]) 07/04/2019 Osteoarthrosis Peripheral vascular disease, unspecified ([facility]) Unspecified combined systolic (congestive) and diastolic (congestive) heart failure (CMS/HCC) Past Surgical History: Procedure Laterality Date BACK SURGERY repair herniated disc COLONOSCOPY 2010 COLONOSCOPY W/ POLYPECTOMY 03/08/2024 EGD 02/03/2024 W/ Esophageal Dilation FLEXIBLE SIGMOIDOSCOPY 02/03/2024 FNA W IMAGING GUIDANCE thyroid 03/22/19, 07/08/21 HYSTERECTOMY OTHER SURGICAL HISTORY 01/15/2001 LT common iliac artery stent, Dr. Cortes OTHER SURGICAL HISTORY 09/22/2003 LT SFA stent, Dr. Cortes THYROID SURGERY partial thyroidectomy Visit Vitals BP 122/70 Pulse 86 Ht 5' 5 Wt 187 lb SpO2 97% BMI 31.12 kg/m Smoking Status Former BSA 1.97 m Review of Systems Objective Physical Exam Constitutional: General: She is not in acute distress. Appearance: She is ill-appearing. Cardiovascular: Rate and Rhythm: Normal rate and regular rhythm. Heart sounds: No murmur heard. Pulmonary: Effort: Accessory muscle usage and prolonged expiration present. Breath sounds: Decreased air movement present. Neurological: Mental Status: She is alert. Psychiatric: Mood and Affect: Mood normal. Thought Content: Thought content normal. Judgment: Judgment normal. Assessment/Plan Diagnoses and all orders for this visit: Panlobular emphysema (CMS/HCC) - At baseline. Appt with Pulmonolgy this month. Moderate recurrent major depression (CMS/HCC) - Improved on Rexulti, see last OV note. Depression with anxiety Exudative age-related macular degeneration, unspecified eye, stage unspecified (CMS/HCC) 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) - No current active congestive heart failure. Dyspnea at exertion, but not at rest. No evidence of pulmonary edema. Medications unchanged. Follow up in about 2 months (around 09/22/2024) for Routine F/U. documented in this encounter [facility] 07-21-2024 History of Presen t illness Narrative Patient: Jaquelin Norwood : 1940 PCP: Yossi Landers MD SUBJECTIVE This is a 84 y.o. female that presents today with a CC of elongated, thick nails. Pt states nails have been elongated and thick for many years and cause pain with ambulation in shoegear. Pt has tried previous treatment with minimal relief. Pt presents today for nail care and treatment. Patient is DM2 Pt also has history of venous stasis to b/l lower extremities. Allergies: Allergies Allergen Reactions Benztropine Other Benztropine Mesylate Other Reaction(s): hallucinations Naproxen Other Reaction(s): gogo oral edema Vioxx [Rofecoxib] Past Medical History: Past Medical History: Diagnosis Date Acquired hypothyroidism ([facility]) Acute exacerbation of chronic obstructive pulmonary disease ([facility]) 07/16/2016 Anxiety state ([facility]) Cardiomegaly Chronic airway obstruction ([facility]) Chronic back pain spinal stenosis Depressive disorder ([facility]) Diabetes mellitus without complication ([facility]) Diabetes mellitus without mention of complication, type II or unspecified type, not stated as uncontrolled Encephalopathy 10/14/2022 Essential hypertension, benign ([facility]) Former smoker 08/15/2017 H/O being hospitalized 02/20/2020 Resp. Distress, Hypoxia, JONE, LLL Pneumonia, Sepsis History of echocardiogram 02/21/2020 ECHO EF 65-70% [facility] Severely Dilated (02/21/2020) Hyperlipidemia, unspecified ([facility]) Hypertonicity of bladder Left thyroid nodule ([facility]) Morbid obesity ([facility]) 07/04/2019 Osteoarthrosis Peripheral vascular disease, unspecified ([facility]) Unspecified combined systolic (congestive) and diastolic (congestive) heart failure ([facility]) Medications: Current Outpatient Medications: albuterol (2.5 MG/3ML) 0.083% nebulizer solution, Take 2.5 mg by nebulization every 8 (eight) hours if needed., Disp: , Rfl: albuterol HFA (ProAir HFA) 90 mcg/act inhaler, Inhale 2 puffs every 4 (four) hours if needed., Disp: , Rfl: ALPRAZolam (Xanax) 0.25 MG tablet, Take 1 tablet (0.25 mg) by mouth 2 (two) times a day as needed for anxiety, Disp: 60 tablet, Rfl: 0 aspirin 81 MG EC tablet, Take 81 mg by mouth 1 (one) time each day at the same time., Disp: , Rfl: atorvastatin (Lipitor) 40 MG tablet, TAKE 1 TABLET EVERY MORNING, Disp: 90 tablet, Rfl: 3 Blood Glucose Monitoring Suppl (ONE TOUCH ULTRA 2) w/Device kit, Inject under the skin 1 (one) time each day., Disp: , Rfl: Fruuocy-Tfawkygoeim-Bvbtvjwgtn (Breztri Aerosphere) 160-9-4.8 MCG/ACT aerosol, Inhale 2 puffs in the morning and 2 puffs before bedtime., Disp: 10.7 g, Rfl: 11 carvedilol (Coreg) 12.5 MG tablet, TAKE 1 TABLET (12.5 MG) BY MOUTH IN THE MORNING AND 1 TABLET (12.5 MG) BEFORE BEDTIME., Disp: 180 tablet, Rfl: 3 [facility]S Stool Softener 100 MG capsule, Take 100 mg by mouth in the morning and 100 mg before bedtime., Disp: , Rfl: DULoxetine (Cymbalta) [address] capsule, TAKE 1 CAPSULE EVERY MORNING, Disp: 90 capsule, Rfl: 3 famotidine (Pepcid) 20 MG tablet, TAKE 1 TABLET BY MOUTH AT BEDTIME, Disp: 90 tablet, Rfl: 0 furosemide (Lasix) 40 MG tablet, TAKE 1 TABLET EVERY MORNING, Disp: 90 tablet, Rfl: 3 gabapentin (Neurontin) 100 MG capsule, Take 2 capsules (200 mg) by mouth in the morning and 2 capsules (200 mg) before bedtime., Disp: 360 capsule, Rfl: 3 glucose blood (True Metrix Blood Glucose Test) test strip, 1 each by Other route 1 (one) time each day at the same time., Disp: , Rfl: HYDROcodone-acetaminophen ([place]) 7.5-325 MG tablet, Take 1 tablet by mouth every 6 (six) hours if needed for severe pain, Disp: 120 tablet, Rfl: 0 Lancets (SkillWizTouch Delica Plus [id number][place] [facility] 1 LANCET TO TEST BLOOD SUGAR ONCE DAILY, Disp: , Rfl: levothyroxine (Synthroid, Levoxyl) 100 MCG tablet, TAKE 1 TABLET (100 MCG) BY MOUTH IN THE MORNING. TAKE BEFORE MEALS., Disp: 90 tablet, Rfl: 3 linaCLOtide (Linzess) 290 MCG capsule, Take by mouth, Disp: , Rfl: lisinopril 5 MG tablet, TAKE 1 TABLET EVERY MORNING, Disp: 90 tablet, Rfl: 3 loratadine (Claritin) 10 MG tablet, Take 1 tablet (10 mg) by mouth Daily, Disp: 100 tablet, Rfl: 3 meclizine (Antivert) 12.5 MG tablet, Take 12.5 mg by mouth 3 (three) times a day as needed for dizziness., Disp: , Rfl: Multiple Vitamins-Minerals (OCUVITE ADULT 50+ PO), Take by mouth 1 (one) time each day., Disp: , Rfl: mupirocin (Bactroban) 2 % ointment, , Disp: , Rfl: nitroglycerin (Nitrostat) 0.4 MG SL tablet, Place 0.4 mg under the tongue every 5 (five) minutes if needed., Disp: , Rfl: nystatin (Mycostatin) ointment, every 12 (twelve) hours., Disp: , Rfl: omeprazole (PriLOSEC) [address] capsule, TAKE 1 CAPSULE (40 MG) BY MOUTH IN THE MORNING. TAKE BEFORE MEALS., Disp: 90 capsule, Rfl: 3 ondansetron (Zofran) 4 MG tablet, Take 2 tablets (8 mg) by mouth every 8 (eight) hours if needed for nausea or vomiting, Disp: 60 tablet, Rfl: 1 Social History: Social History Socioeconomic History Marital status: Spouse name: Not on file Number of children: Not on file Years of education: Not on file Highest education level: Not on file Occupational History Not on file Tobacco Use Smoking status: Former Current packs/day: 0.00 Types: Cigarettes Quit date: 10/27/2012 Years since quittin.7 Smokeless tobacco: Never Vaping Use Vaping status: Never Used Substance and Sexual Activity Alcohol use: Not Currently Comment: caffeine intake: 2-3 cups per day of coffee Drug use: Not Currently Sexual activity: Defer Other Topics Concern Not on file Social History Narrative Not on file Social Drivers of Health Financial Resource Strain: Low Risk (11/12/2022) Overall Financial Resource Strain (CARDIA) Difficulty of Paying Living Expenses: Not very hard Food Insecurity: No Food Insecurity (11/12/2022) Hunger Vital Sign Worried About Running Out of Food in the Last Year: Never true Ran Out of Food in the Last Year: Never true Transportation Needs: No Transportation Needs (11/12/2022) PRAPARE - Transportation Lack of Transportation (Medical): No Lack of Transportation (Non-Medical): No Physical Activity: Inactive (11/12/2022) Exercise Vital Sign Days of Exercise per Week: 0 days Minutes of Exercise per Session: 0 min Stress: No Stress Concern Present (11/12/2022) [employer] [place] [employer] - Occupational Stress Questionnaire Feeling of Stress : Not at all Social Connections: Moderately Isolated (11/12/2022) Social Connection and Isolation Panel [NHANES] Frequency of Communication with Friends and Family: More than three times a week Frequency of Social Gatherings with Friends and Family: Once a week Attends Scientologist Services: Never Active Member of Clubs or Organizations: No Attends Club or Organization Meetings: Never Marital Status: Intimate Partner Violence: Not At Risk (11/12/2022) Humiliation, Afraid, Rape, and Kick questionnaire Fear of Current or Ex-Partner: No Emotionally Abused: No Physically Abused: No Sexually Abused: No Housing Stability: Low Risk (11/12/2022) Housing Stability Vital Sign Unable to Pay for Housing in the Last Year: No Number of Places Lived in the Last Year: 1 Unstable Housing in the Last Year: No ROS: General: denies fever, chills, fatigue, malaise Gastrointestinal: denies abdominal pain, ulcers, or changes in appetite or bowel habits Musculoskeletal: Positive history of arthritis and back surgery in the past Cardiovascular: denies CP, palpitations, irregular rhythms. Positive history of CHF OBJECTIVE LE EXAM: DERM: Elongated thick yellow crumbly nails digits 1 through 10. Negative hair growth with thin shiny atrophic skin bilaterally. Plus two pitting edema to bilateral ankles and legs VASC: Negative DP and negative PT pedal pulses NEURO: 5.07 [place] Arturo monofilament test intact to digits and forefoot bilaterally 125Hz tuning fork diminished to 1st MPJ bilaterally ORTHO: Positive pain on palpation to toenails of the left 1,2,3,4,5 toes and right 1,2,3,4,5 toes ASSESSMENT 1. Type 2 diabetes mellitus with diabetic neuropathy, without long-term current use of insulin ([facility]) 2. Pain due to onychomycosis of toenails of both feet 3. Venous insufficiency PLAN Discussed proper foot care with patient today. Debride nails in length and thickness digits 1 through 10 Patient educated today on proper diabetic foot care including monitoring feet daily for any signs of infection openings in the skin or irregularities to both feet. Patient had a diabetic neurological exam today to both their feet and discussed proper shoe gear. Continue with elevation of feet when nonweightbearing Alessandro Levi DPM documented in this encounter [facility] 07-12-2024 History of Presen t illness Narrative Subjective Patient ID: Jaquelin Norwood is a 84 y.o. female who presents for Thyroid Nodule (1 year follow up ultrasound [facility]) Thyroid US shows a 14mm LT nodule. Stable to smaller compared to 6 years ago Family History Problem Relation Name Age of Onset Heart failure Mother Diabetes Mother Cancer Mother Cancer Father Active Ambulatory Problems Diagnosis Date Noted Acquired hypothyroidism (CMS/HCC) 11/04/2022 Ataxic gait 11/04/2022 Bilateral carotid artery stenosis 11/04/2022 Cardiomyopathy (CMS/HCC) 11/04/2022 Chronic allergic rhinitis 11/04/2022 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) 11/04/2022 Chronic constipation 11/04/2022 Coronary artery disease (CMS/HCC) 11/04/2022 Degenerative lumbar spinal stenosis 11/04/2022 Depression with anxiety 11/04/2022 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CMS/HCC) 11/04/2022 Essential hypertension (CMS/HCC) 11/04/2022 Extrapyramidal symptom 11/04/2022 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) 11/04/2022 Gastroesophageal reflux disease 11/04/2022 Hypertensive heart disease with congestive heart failure and chronic kidney disease (CMS/HCC) 11/04/2022 LVH (left ventricular hypertrophy) 11/04/2022 Mild cognitive impairment 11/04/2022 Mixed hyperlipidemia (CMS/HCC) 11/04/2022 Moderate recurrent major depression (CMS/HCC) 11/04/2022 Multinodular goiter (CMS/HCC) 11/04/2022 Neuropathy 11/04/2022 Nontoxic single thyroid nodule (CMS/HCC) 11/04/2022 OAB (overactive bladder) 11/04/2022 Obesity (BMI 30-39.9) 11/04/2022 Peripheral vascular disease (CMS/HCC) 11/04/2022 Polyosteoarthritis 11/04/2022 Primary osteoarthritis of left knee 11/04/2022 Primary osteoarthritis of right knee 11/04/2022 Chronic obstructive pulmonary disease ([facility]) 11/04/2022 Pulmonary emphysema ([facility]) 11/04/2022 Type 2 diabetes mellitus with diabetic neuropathy, without long-term current use of insulin ([facility]) 11/04/2022 Ataxia 10/23/2017 Diabetic peripheral neuropathy associated with type 2 diabetes mellitus ([facility]) 02/23/2019 Acute on chronic diastolic heart failure ([facility]) 03/14/2020 Cardiomegaly 04/30/2015 Abnormality of rectum 08/10/2023 Sore throat 10/26/2023 Symptomatic cholelithiasis 01/20/2024 Resolved Ambulatory Problems Diagnosis Date Noted Former smoker 08/15/2017 Morbid obesity ([facility]) 07/04/2019 Chronic combined systolic and diastolic heart failure ([facility]) 04/30/2015 Acute exacerbation of chronic obstructive pulmonary disease ([facility]) 07/16/2016 Past Medical History: Diagnosis Date Anxiety state ([facility]) Chronic airway obstruction ([facility]) Chronic back pain Depressive disorder ([facility]) Diabetes mellitus without complication ([facility]) Encephalopathy 10/14/2022 Essential hypertension, benign ([facility]) H/O being hospitalized 02/20/2020 History of echocardiogram 02/21/2020 Hyperlipidemia, unspecified ([facility]) Hypertonicity of bladder Left thyroid nodule ([facility]) Osteoarthrosis Peripheral vascular disease, unspecified ([facility]) Unspecified combined systolic (congestive) and diastolic (congestive) heart failure ([facility]) Past Surgical History: Procedure Laterality Date BACK SURGERY repair herniated disc COLONOSCOPY 2010 COLONOSCOPY W/ POLYPECTOMY 03/08/2024 EGD 02/03/2024 W/ Esophageal Dilation FLEXIBLE SIGMOIDOSCOPY 02/03/2024 FNA W IMAGING GUIDANCE thyroid 03/22/19, 07/08/21 HYSTERECTOMY OTHER SURGICAL HISTORY 01/15/2001 LT common iliac artery stent, Dr. Cortes OTHER SURGICAL HISTORY 09/22/2003 LT SFA stent, Dr. Cortes THYROID SURGERY partial thyroidectomy Allergies Allergen Reactions Benztropine Other Benztropine Mesylate Other Reaction(s): hallucinations Naproxen Other Reaction(s): gogo oral edema Vioxx [Rofecoxib] Current Outpatient Medications on File Prior to Visit Medication Sig Dispense Refill albuterol (2.5 MG/3ML) 0.083% nebulizer solution Take 2.5 mg by nebulization every 8 (eight) hours if needed. albuterol HFA (ProAir HFA) 90 mcg/act inhaler Inhale 2 puffs every 4 (four) hours if needed. ALPRAZolam (Xanax) 0.25 MG tablet Take 1 tablet (0.25 mg) by mouth 2 (two) times a day as needed for anxiety 60 tablet 0 aspirin 81 MG EC tablet Take 81 mg by mouth 1 (one) time each day at the same time. atorvastatin (Lipitor) 40 MG tablet TAKE 1 TABLET EVERY MORNING 90 tablet 3 Blood Glucose Monitoring Suppl (Riffyn 2) w/Device kit Inject under the skin 1 (one) time each day. Tsbifwv-Ilmntpayzue-Pfxsvwjouk (Breztri Aerosphere) 160-9-4.8 MCG/ACT aerosol Inhale 2 puffs in the morning and 2 puffs before bedtime. 10.7 g 11 carvedilol (Coreg) 12.5 MG tablet TAKE 1 TABLET (12.5 MG) BY MOUTH IN THE MORNING AND 1 TABLET (12.5 MG) BEFORE BEDTIME. 180 tablet 3 [facility] Stool Softener 100 MG capsule Take 100 mg by mouth in the morning and 100 mg before bedtime. DULoxetine (Cymbalta) [address] capsule TAKE 1 CAPSULE EVERY MORNING 90 capsule 3 famotidine (Pepcid) 20 MG tablet TAKE 1 TABLET BY MOUTH AT BEDTIME 90 tablet 0 furosemide (Lasix) 40 MG tablet TAKE 1 TABLET EVERY MORNING 90 tablet 3 gabapentin (Neurontin) 100 MG capsule Take 2 capsules (200 mg) by mouth in the morning and 2 capsules (200 mg) before bedtime. 360 capsule 3 glucose blood (True Metrix Blood Glucose Test) test strip 1 each by Other route 1 (one) time each day at the same time. HYDROcodone-acetaminophen ([place]) 7.5-325 MG tablet Take 1 tablet by mouth every 6 (six) hours if needed for severe pain 120 tablet 0 Lancets (OneTouch Delica Plus [id number]) [facility]ANCET TO TEST BLOOD SUGAR ONCE DAILY levothyroxine (Synthroid, Levoxyl) 100 MCG tablet TAKE 1 TABLET (100 MCG) BY MOUTH IN THE MORNING. TAKE BEFORE MEALS. 90 tablet 3 linaCLOtide (Linzess) 290 MCG capsule Take by mouth lisinopril 5 MG tablet TAKE 1 TABLET EVERY MORNING 90 tablet 3 loratadine (Claritin) 10 MG tablet Take 1 tablet (10 mg) by mouth Daily 100 tablet 3 meclizine (Antivert) 12.5 MG tablet Take 12.5 mg by mouth 3 (three) times a day as needed for dizziness. Multiple Vitamins-Minerals (OCUVITE ADULT 50+ PO) Take by mouth 1 (one) time each day. mupirocin (Bactroban) 2 % ointment nitroglycerin (Nitrostat) 0.[address] 0.4 mg under the tongue every 5 (five) minutes if needed. nystatin (Mycostatin) ointment every 12 (twelve) hours. omeprazole (PriLOSEC) [address] capsule TAKE 1 CAPSULE (40 MG) BY MOUTH IN THE MORNING. TAKE BEFORE MEALS. 90 capsule 3 ondansetron (Zofran) 4 MG tablet Take 2 tablets (8 mg) by mouth every 8 (eight) hours if needed for nausea or vomiting 60 tablet 1 No current facility-administered medications on file prior to visit. Objective Last Recorded Vitals Vitals: 07/12/24 1417 BP: 117/60 Pulse: 69 ENT Physical Exam Constitutional Appearance: patient appears well-developed, well-nourished and well-groomed, Communication/Voice: communication appropriate for developmental age; vocal quality normal; Assessment/Plan Diagnoses and all orders for this visit: Nontoxic single thyroid nodule (CMS/HCC) Stable thyroid nodule several years. Recheck prn documented in this encounter [facility] 07-04-2024 Telephone encount er Note ,OARRS reviewed, Rx sent into patient's pharmacy. [facility] 07-04-2024 Miscellaneous Notes Formattin g of this note might be different from the original. ,OARRS reviewed, Rx sent into patient's pharmacy. Last OV 05-31-24 Last RF 06-01-24 documented in this encounter [facility] 07-04-2024 Telephone encount er Note Last OV 05-31-24 Last RF 06-01-24 [facility] 06-10-2024 History of Presen t illness Narrative Images from the original note were not included. HPI Results Additional comments: Echo results Last edited by Kimberly Sanchez LPN on 06/10/2024 10:56 AM. Subjective Patient ID: Jaquelin Norwood is a 84 y.o. female who presents for Congestive Heart Failure, Results (Echo results), and Depression. Pelvic pressure when standing Congestive Heart Failure Patient presents for re-evaluation of congestive heart failure. Patient's current complaints are [place]ENS[place]. She denies chest pressure/discomfort, irregular heart beat, near-syncope, palpitations, and syncope. She states she is compliant all of the time with her medications. Pt taking cymbalta and wellbutrin feels it is not controlling her depression she was on rexulti in past worked well but her ins co would not cover it Pt states she feels like she has pelvic pressure when she changes from sitting to standing x 2-3 weeks Congestive Heart Failure Depression Patient has a history of: CHF Current Outpatient Medications on File Prior to Visit Medication Sig Dispense Refill albuterol (2.5 MG/3ML) 0.083% nebulizer solution Take 2.5 mg by nebulization every 8 (eight) hours if needed. albuterol HFA (ProAir HFA) 90 mcg/act inhaler Inhale 2 puffs every 4 (four) hours if needed. ALPRAZolam (Xanax) 0.25 MG tablet Take 1 tablet (0.25 mg) by mouth 2 (two) times a day as needed for anxiety 60 tablet 0 aspirin 81 MG EC tablet Take 81 mg by mouth 1 (one) time each day at the same time. atorvastatin (Lipitor) 40 MG tablet TAKE 1 TABLET EVERY MORNING 90 tablet 3 Blood Glucose Monitoring Suppl (ONE TOUCH ULTRA 2) w/Device kit Inject under the skin 1 (one) time each day. Axzflzj-Mmdfmidrtpf-Rbfcrxjbao (Breztri Aerosphere) 160-9-4.8 MCG/ACT aerosol Inhale 2 puffs in the morning and 2 puffs before bedtime. 10.7 g 11 carvedilol (Coreg) 12.5 MG tablet TAKE 1 TABLET (12.5 MG) BY MOUTH IN THE MORNING AND 1 TABLET (12.5 MG) BEFORE BEDTIME. 180 tablet 3 [facility] Stool Softener 100 MG capsule Take 100 mg by mouth in the morning and 100 mg before bedtime. DULoxetine (Cymbalta) [address] capsule TAKE 1 CAPSULE EVERY MORNING 90 capsule 3 famotidine (Pepcid) 20 MG tablet TAKE 1 TABLET BY MOUTH AT BEDTIME 90 tablet 0 furosemide (Lasix) 40 MG tablet TAKE 1 TABLET EVERY MORNING 90 tablet 3 gabapentin (Neurontin) 100 MG capsule Take 2 capsules (200 mg) by mouth in the morning and 2 capsules (200 mg) before bedtime. 360 capsule 3 glucose blood (True Metrix Blood Glucose Test) test strip 1 each by Other route 1 (one) time each day at the same time. HYDROcodone-acetaminophen ([place]) 7.5-325 MG tablet Take 1 tablet by mouth every 6 (six) hours if needed for severe pain 120 tablet 0 Lancets (SkillWizTouch Delica Plus [id number]) [facility] LANCET TO TEST BLOOD SUGAR ONCE DAILY levothyroxine (Synthroid, Levoxyl) 100 MCG tablet TAKE 1 TABLET (100 MCG) BY MOUTH IN THE MORNING. TAKE BEFORE MEALS. 90 tablet 3 linaCLOtide (Linzess) 290 MCG capsule Take by mouth lisinopril 5 MG tablet TAKE 1 TABLET EVERY MORNING 90 tablet 3 loratadine (Claritin) 10 MG tablet Take 1 tablet (10 mg) by mouth Daily 100 tablet 3 meclizine (Antivert) 12.5 MG tablet Take 12.5 mg by mouth 3 (three) times a day as needed for dizziness. Multiple Vitamins-Minerals (OCUVITE ADULT 50+ PO) Take by mouth 1 (one) time each day. mupirocin (Bactroban) 2 % ointment nitroglycerin (Nitrostat) 0.[address] 0.4 mg under the tongue every 5 (five) minutes if needed. nystatin (Mycostatin) ointment every 12 (twelve) hours. omeprazole (PriLOSEC) [address] capsule TAKE 1 CAPSULE (40 MG) BY MOUTH IN THE MORNING. TAKE BEFORE MEALS. 90 capsule 3 ondansetron (Zofran) 4 MG tablet Take 2 tablets (8 mg) by mouth every 8 (eight) hours if needed for nausea or vomiting 60 tablet 1 [DISCONTINUED] buPROPion (Zyban) 150 MG 12 hr tablet Take 1 tablet (150 mg) by mouth in the morning and 1 tablet (150 mg) before bedtime. 180 tablet 3 No current facility-administered medications on file prior to visit. I have reviewed and reconciled the history and medication list with the patient today. Allergies Allergen Reactions Benztropine Other Benztropine Mesylate Other Reaction(s): hallucinations Naproxen Other Reaction(s): gogo oral edema Vioxx [Rofecoxib] Social History Tobacco Use Smoking status: Former Current packs/day: 0.00 Types: Cigarettes Quit date: 10/27/2012 Years since quittin.6 Smokeless tobacco: Never Vaping Use Vaping status: Never Used Substance Use Topics Alcohol use: Not Currently Comment: caffeine intake: 2-3 cups per day of coffee Drug use: Not Currently Family History Problem Relation Name Age of Onset Heart failure Mother Diabetes Mother Cancer Mother Cancer Father Past Medical History: Diagnosis Date Acquired hypothyroidism ([facility]) Acute exacerbation of chronic obstructive pulmonary disease ([facility]) 07/16/2016 Anxiety state ([facility]) Cardiomegaly Chronic airway obstruction ([facility]) Chronic back pain spinal stenosis Depressive disorder ([facility]) Diabetes mellitus without complication ([facility]) Diabetes mellitus without mention of complication, type II or unspecified type, not stated as uncontrolled Encephalopathy 10/14/2022 Essential hypertension, benign ([facility]) Former smoker 08/15/2017 H/O being hospitalized 02/20/2020 Resp. Distress, Hypoxia, JONE, LLL Pneumonia, Sepsis History of echocardiogram 02/21/2020 ECHO EF 65-70% [facility] Severely Dilated (02/21/2020) Hyperlipidemia, unspecified ([facility]) Hypertonicity of bladder Left thyroid nodule ([facility]) Morbid obesity (CMS/HCC) 07/04/2019 Osteoarthrosis Peripheral vascular disease, unspecified (CMS/HCC) Unspecified combined systolic (congestive) and diastolic (congestive) heart failure (CMS/HCC) Past Surgical History: Procedure Laterality Date BACK SURGERY repair herniated disc COLONOSCOPY 2010 COLONOSCOPY W/ POLYPECTOMY 03/08/2024 EGD 02/03/2024 W/ Esophageal Dilation FLEXIBLE SIGMOIDOSCOPY 02/03/2024 FNA W IMAGING GUIDANCE thyroid 03/22/19, 07/08/21 HYSTERECTOMY OTHER SURGICAL HISTORY 01/15/2001 LT common iliac artery stent, Dr. Cortes OTHER SURGICAL HISTORY 09/22/2003 LT SFA stent, Dr. Cortes THYROID SURGERY partial thyroidectomy Visit Vitals BP 126/68 Pulse 77 Ht 5' 5 Wt 178 lb SpO2 98% BMI 29.62 kg/m Smoking Status Former BSA 1.92 m Review of Systems Psychiatric/Behavioral: Positive for depression. Objective Physical Exam Constitutional: General: She is not in acute distress. Appearance: She is ill-appearing. Cardiovascular: Rate and Rhythm: Normal rate and regular rhythm. Heart sounds: No murmur heard. Pulmonary: Effort: Accessory muscle usage and prolonged expiration present. Breath sounds: Decreased air movement present. Neurological: Mental Status: She is alert. Psychiatric: Mood and Affect: Mood normal. Thought Content: Thought content normal. Judgment: Judgment normal. Assessment/Plan Diagnoses and all orders for this visit: Panlobular emphysema (CMS/HCC) COPD with acute exacerbation (CMS/HCC) - ciprofloxacin (Cipro) 500 MG tablet; Take 1 tablet (500 mg) by mouth in the morning and 1 tablet (500 mg) before bedtime. Do all this for 7 days. - methylPREDNISolone (Medrol Dospak) 4 MG tablets; Follow schedule on package instructions Acute cystitis without hematuria - ciprofloxacin (Cipro) 500 MG tablet; Take 1 tablet (500 mg) by mouth in the morning and 1 tablet (500 mg) before bedtime. Do all this for 7 days. Symptomatic cholelithiasis - Will need removal when Pulmonary condition is maximized. 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) - Echo discussed, her heart is actually doing finr. She has Pulmonary HTN from COPD. Depression with anxiety - Stop Welbutrin. Restart Rexulti. Starter pack given. ).5mg x 7 d, then 1mg daily Follow up in about 2 weeks (around 06/24/2024) for F/U med changes. documented in this encounter [facility] 06-01-2024 Telephone encount er Note Meds sent. [facility] 06-01-2024 Miscellaneous Notes Formattin g of this note might be different from the original. Meds sent. OARRS reviewed, Unable to send meds, will try again later. documented in this encounter [facility] 06-01-2024 Telephone encount er Note OARRS reviewed, Unable to send meds, will try again later. [facility] 05-16-2024 History of Presen t illness Narrative Images from the original note were not included. HPI Results Additional comments: PFT Echo has not been done yet--pending ins approval Med Refill Additional comments: [facility] Last edited by Kimberly Sanchez LPN on 05/16/2024 1:19 PM. Subjective Patient ID: Jaquelin Norwood is a 84 y.o. female who presents for Results (PFT/Echo has not been done yet--pending ins approval), Emphysema, and Med Refill (aRdha --ninoska thomas). Diabetes Mellitus Patient presents for follow up of diabetes. Current symptoms include: none. Patient denies foot ulcerations, hypoglycemia , nausea, paresthesia of the feet, polydipsia, polyuria, visual disturbances, and vomiting. Evaluation to date has included: fasting blood sugar, fasting lipid panel, and hemoglobin A1C. Home sugars: patient does not check sugars. Pt has been using breztri samples daily as directed she states she feels it has helped with her breathing, has not been as short of breath per pt Med Refill Associated symptoms include fatigue and weakness. Diabetes Associated symptoms include fatigue and weakness. Hypertension Associated symptoms include shortness of breath. Current Outpatient Medications on File Prior to Visit Medication Sig Dispense Refill albuterol (2.5 MG/3ML) 0.083% nebulizer solution Take 2.5 mg by nebulization every 8 (eight) hours if needed. albuterol HFA (ProAir HFA) 90 mcg/act inhaler Inhale 2 puffs every 4 (four) hours if needed. ALPRAZolam (Xanax) 0.25 MG tablet Take 1 tablet (0.25 mg) by mouth 2 (two) times a day as needed for anxiety 60 tablet 0 aspirin 81 MG EC tablet Take 81 mg by mouth 1 (one) time each day at the same time. atorvastatin (Lipitor) 40 MG tablet TAKE 1 TABLET EVERY MORNING 90 tablet 3 Blood Glucose Monitoring Suppl (ONE [employer]i [employer] ULTRA 2) w/Device kit Inject under the skin 1 (one) time each day. Mptfxql-Bvpbcncxvxr-Vsfvfelbsp (Breztri Aerosphere) 160-9-4.8 MCG/ACT aerosol Inhale 2 puffs in the morning and 2 puffs before bedtime. 10.7 g 11 buPROPion (Zyban) 150 MG 12 hr tablet Take 1 tablet (150 mg) by mouth in the morning and 1 tablet (150 mg) before bedtime. 180 tablet 3 carvedilol (Coreg) 12.5 MG tablet TAKE 1 TABLET (12.5 MG) BY MOUTH IN THE MORNING AND 1 TABLET (12.5 MG) BEFORE BEDTIME. 180 tablet 3 [facility] Stool Softener 100 MG capsule Take 100 mg by mouth in the morning and 100 mg before bedtime. DULoxetine (Cymbalta) [address] capsule TAKE 1 CAPSULE EVERY MORNING 90 capsule 3 famotidine (Pepcid) 20 MG tablet TAKE 1 TABLET BY MOUTH AT BEDTIME 90 tablet 0 furosemide (Lasix) 40 MG tablet TAKE 1 TABLET EVERY MORNING 90 tablet 3 gabapentin (Neurontin) 100 MG capsule Take 2 capsules (200 mg) by mouth in the morning and 2 capsules (200 mg) before bedtime. 360 capsule 3 glucose blood (True Metrix Blood Glucose Test) test strip 1 each by Other route 1 (one) time each day at the same time. HYDROcodone-acetaminophen ([place]) 7.5-325 MG tablet Take 1 tablet by mouth every 6 (six) hours if needed for severe pain 120 tablet 0 Lancets (OneTouch Delica Plus [id number]) [facility] LANCET TO TEST BLOOD SUGAR ONCE DAILY levothyroxine (Synthroid, Levoxyl) 100 MCG tablet TAKE 1 TABLET (100 MCG) BY MOUTH IN THE MORNING. TAKE BEFORE MEALS. 90 tablet 3 linaCLOtide (Linzess) 290 MCG capsule Take by mouth lisinopril 5 MG tablet TAKE 1 TABLET EVERY MORNING 90 tablet 3 loratadine (Claritin) 10 MG tablet Take 1 tablet (10 mg) by mouth Daily 100 tablet 3 meclizine (Antivert) 12.5 MG tablet Take 12.5 mg by mouth 3 (three) times a day as needed for dizziness. Multiple Vitamins-Minerals (OCUVITE ADULT 50+ PO) Take by mouth 1 (one) time each day. mupirocin (Bactroban) 2 % ointment nitroglycerin (Nitrostat) 0.[address] 0.4 mg under the tongue every 5 (five) minutes if needed. nystatin (Mycostatin) ointment every 12 (twelve) hours. omeprazole (PriLOSEC) [address] capsule TAKE 1 CAPSULE (40 MG) BY MOUTH IN THE MORNING. TAKE BEFORE MEALS. 90 capsule 3 ondansetron (Zofran) 4 MG tablet Take 2 tablets (8 mg) by mouth every 8 (eight) hours if needed for nausea or vomiting 60 tablet 1 No current facility-administered medications on file prior to visit. I have reviewed and reconciled the history and medication list with the patient today. Allergies Allergen Reactions Benztropine Other Benztropine Mesylate Other Reaction(s): hallucinations Naproxen Other Reaction(s): gogo oral edema Vioxx [Rofecoxib] Social History Tobacco Use Smoking status: Former Current packs/day: 0.00 Types: Cigarettes Quit date: 10/27/2012 Years since quittin.5 Smokeless tobacco: Never Vaping Use Vaping status: Never Used Substance Use Topics Alcohol use: Not Currently Comment: caffeine intake: 2-3 cups per day of coffee Drug use: Not Currently Family History Problem Relation Name Age of Onset Heart failure Mother Diabetes Mother Cancer Mother Cancer Father Past Medical History: Diagnosis Date Acquired hypothyroidism ([facility]) Acute exacerbation of chronic obstructive pulmonary disease ([facility]/HCC) 07/16/2016 Anxiety state ([facility]/HCC) Cardiomegaly Chronic airway obstruction ([facility]/HCC) Chronic back pain spinal stenosis Depressive disorder ([facility]/HCC) Diabetes mellitus without complication ([facility]/HCC) Diabetes mellitus without mention of complication, type II or unspecified type, not stated as uncontrolled Encephalopathy 10/14/2022 Essential hypertension, benign ([facility]) Former smoker 08/15/2017 H/O being hospitalized 02/20/2020 Resp. Distress, Hypoxia, JONE, LLL Pneumonia, Sepsis History of echocardiogram 02/21/2020 ECHO EF 65-70% [facility] Severely Dilated (02/21/2020) Hyperlipidemia, unspecified ([facility]) Hypertonicity of bladder Left thyroid nodule ([facility]/HCC) Morbid obesity ([facility]) 07/04/2019 Osteoarthrosis Peripheral vascular disease, unspecified ([facility]) Unspecified combined systolic (congestive) and diastolic (congestive) heart failure ([facility]) Past Surgical History: Procedure Laterality Date BACK SURGERY repair herniated disc COLONOSCOPY 2010 COLONOSCOPY W/ POLYPECTOMY 03/08/2024 EGD 02/03/2024 W/ Esophageal Dilation FLEXIBLE SIGMOIDOSCOPY 02/03/2024 FNA W IMAGING GUIDANCE thyroid 03/22/19, 07/08/21 HYSTERECTOMY OTHER SURGICAL HISTORY 01/15/2001 LT common iliac artery stent, Dr. Cortes OTHER SURGICAL HISTORY 09/22/2003 LT SFA stent, Dr. Cortes THYROID SURGERY partial thyroidectomy Visit Vitals BP 124/70 Pulse 65 Ht 5' 5 SpO2 99% BMI 29.79 kg/m Smoking Status Former BSA 1.93 m Review of Systems Constitutional: Positive for fatigue. Respiratory: Positive for shortness of breath. Cardiovascular: Positive for leg swelling. Neurological: Positive for weakness. Objective Physical Exam Constitutional: General: She is not in acute distress. Appearance: She is ill-appearing. Cardiovascular: Rate and Rhythm: Normal rate and regular rhythm. Heart sounds: No murmur heard. Pulmonary: Effort: Accessory muscle usage and prolonged expiration present. Breath sounds: Decreased air movement present. Neurological: Mental Status: She is alert. Psychiatric: Mood and Affect: Mood normal. Thought Content: Thought content normal. Judgment: Judgment normal. Assessment/Plan Diagnoses and all orders for this visit: Panlobular emphysema (CMS/HCC) - Ambulatory referral to Pulmonology; - PFTs were discussed, She has SEVERE COPD, FEV1 0.9L 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) - Awaiting Echo, see last OV. Symptomatic cholelithiasis - May need Cholecystectomy, but would be a poor surgical candidate. Follow up in about 3 weeks (around 06/06/2024) for Test/Lab Review. documented in this encounter [facility] 05-02-2024 History of Presen t illness Narrative Images from the original note were not included. HPI Follow-up Additional comments: Controlled/pain med Med Refill Additional comments: Laratidine,xanax,hydrocodone--[facility] Last edited by Kimberly Sanchez LPN on 05/02/2024 11:14 AM. Subjective Patient ID: Jaquelin Norwood is a 84 y.o. female who presents for Follow-up (Controlled/pain med), Diabetes, Hypertension, and Med Refill (Laratidine,xanax,hydrocodone--[facility]). Diabetes Mellitus Patient presents for follow up of diabetes. Current symptoms include: none. Patient denies foot ulcerations, hypoglycemia , nausea, paresthesia of the feet, polydipsia, polyuria, visual disturbances, and vomiting. Evaluation to date has included: fasting blood sugar, fasting lipid panel, and hemoglobin A1C. Home sugars: patient does not check sugars. Diabetes Hypertension Med Refill Current Outpatient Medications on File Prior to Visit Medication Sig Dispense Refill albuterol (2.5 MG/3ML) 0.083% nebulizer solution Take 2.5 mg by nebulization every 8 (eight) hours if needed. albuterol HFA (ProAir HFA) 90 mcg/act inhaler Inhale 2 puffs every 4 (four) hours if needed. aspirin 81 MG EC tablet Take 81 mg by mouth 1 (one) time each day at the same time. atorvastatin (Lipitor) 40 MG tablet TAKE 1 TABLET EVERY MORNING 90 tablet 3 Blood Glucose Monitoring Suppl (ONE TOUCH ULTRA 2) w/Device kit Inject under the skin 1 (one) time each day. buPROPion (Zyban) 150 MG 12 hr tablet Take 1 tablet (150 mg) by mouth in the morning and 1 tablet (150 mg) before bedtime. 180 tablet 3 carvedilol (Coreg) 12.5 MG tablet TAKE 1 TABLET (12.5 MG) BY MOUTH IN THE MORNING AND 1 TABLET (12.5 MG) BEFORE BEDTIME. 180 tablet 3 [facility] Stool Softener 100 MG capsule Take 100 mg by mouth in the morning and 100 mg before bedtime. DULoxetine (Cymbalta) [address] capsule TAKE 1 CAPSULE EVERY MORNING 90 capsule 3 famotidine (Pepcid) 20 MG tablet TAKE 1 TABLET BY MOUTH AT BEDTIME 90 tablet 0 furosemide (Lasix) 40 MG tablet TAKE 1 TABLET EVERY MORNING 90 tablet 3 gabapentin (Neurontin) 100 MG capsule Take 2 capsules (200 mg) by mouth in the morning and 2 capsules (200 mg) before bedtime. 360 capsule 3 glucose blood (True Metrix Blood Glucose Test) test strip 1 each by Other route 1 (one) time each day at the same time. Lancets (eBureau Delica Plus [id number]) [facility] LANCET TO TEST BLOOD SUGAR ONCE DAILY levothyroxine (Synthroid, Levoxyl) 100 MCG tablet TAKE 1 TABLET (100 MCG) BY MOUTH IN THE MORNING. TAKE BEFORE MEALS. 90 tablet 3 linaCLOtide (Linzess) 290 MCG capsule Take by mouth lisinopril 5 MG tablet TAKE 1 TABLET EVERY MORNING 90 tablet 3 meclizine (Antivert) 12.5 MG tablet Take 12.5 mg by mouth 3 (three) times a day as needed for dizziness. Multiple Vitamins-Minerals (OCUVITE ADULT 50+ PO) Take by mouth 1 (one) time each day. mupirocin (Bactroban) 2 % ointment nitroglycerin (Nitrostat) 0.[address] 0.4 mg under the tongue every 5 (five) minutes if needed. nystatin (Mycostatin) ointment every 12 (twelve) hours. omeprazole (PriLOSEC) [address] capsule TAKE 1 CAPSULE (40 MG) BY MOUTH IN THE MORNING. TAKE BEFORE MEALS. 90 capsule 3 ondansetron (Zofran) 4 MG tablet Take 2 tablets (8 mg) by mouth every 8 (eight) hours if needed for nausea or vomiting 60 tablet 1 [DISCONTINUED] ALPRAZolam (Xanax) 0.25 MG tablet Take 1 tablet (0.25 mg) by mouth 2 (two) times a day as needed for anxiety 60 tablet 0 [DISCONTINUED] HYDROcodone-acetaminophen ([place]) 7.5-325 MG tablet Take 1 tablet by mouth every 6 (six) hours if needed for severe pain 120 tablet 0 [DISCONTINUED] loratadine (Claritin) 10 MG tablet TAKE 1 TABLET BY MOUTH EVERY DAY 100 tablet 3 [DISCONTINUED] famotidine (Pepcid) 20 MG tablet Take 1 tablet (20 mg) by mouth at bedtime 90 tablet 0 [DISCONTINUED] loratadine (Claritin) 10 MG tablet TAKE 1 TABLET BY MOUTH EVERY DAY 90 tablet 3 [DISCONTINUED] ondansetron (Zofran) 4 MG tablet Take 2 tablets (8 mg) by mouth every 8 (eight) hours if needed for nausea or vomiting 60 tablet 1 No current facility-administered medications on file prior to visit. I have reviewed and reconciled the history and medication list with the patient today. Allergies Allergen Reactions Benztropine Other Benztropine Mesylate Other Reaction(s): hallucinations Naproxen Other Reaction(s): gogo oral edema Vioxx [Rofecoxib] Social History Tobacco Use Smoking status: Former Current packs/day: 0.00 Types: Cigarettes Quit date: 10/27/2012 Years since quittin.5 Smokeless tobacco: Never Vaping Use Vaping status: Never Used Substance Use Topics Alcohol use: Not Currently Comment: caffeine intake: 2-3 cups per day of coffee Drug use: Not Currently Family History Problem Relation Name Age of Onset Heart failure Mother Diabetes Mother Cancer Mother Cancer Father Past Medical History: Diagnosis Date Acquired hypothyroidism ([facility]) Acute exacerbation of chronic obstructive pulmonary disease ([facility]/HCC) 07/16/2016 Anxiety state ([facility]) Cardiomegaly Chronic airway obstruction ([facility]) Chronic back pain spinal stenosis Depressive disorder ([facility]) Diabetes mellitus without complication ([facility]) Diabetes mellitus without mention of complication, type II or unspecified type, not stated as uncontrolled Encephalopathy 10/14/2022 Essential hypertension, benign ([facility]) Former smoker 08/15/2017 H/O being hospitalized 02/20/2020 Resp. 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) Past Surgical History: Procedure Laterality Date BACK SURGERY repair herniated disc COLONOSCOPY 2010 COLONOSCOPY W/ POLYPECTOMY 03/08/2024 EGD 02/03/2024 W/ Esophageal Dilation FLEXIBLE SIGMOIDOSCOPY 02/03/2024 FNA W IMAGING GUIDANCE thyroid 03/22/19, 07/08/21 HYSTERECTOMY OTHER SURGICAL HISTORY 01/15/2001 LT common iliac artery stent, Dr. Cortes OTHER SURGICAL HISTORY 09/22/2003 LT SFA stent, Dr. Cortes THYROID SURGERY partial thyroidectomy Visit Vitals BP 118/66 Pulse 73 Ht 5' 5 Wt 179 lb SpO2 97% BMI 29.79 kg/m Smoking Status Former BSA 1.93 m Review of Systems Objective Physical Exam Constitutional: General: She is not in acute distress. Appearance: She is ill-appearing. Cardiovascular: Rate and Rhythm: Normal rate and regular rhythm. Heart sounds: No murmur heard. Pulmonary: Effort: Accessory muscle usage and prolonged expiration present. Breath sounds: Decreased air movement present. Neurological: Mental Status: She is alert. Psychiatric: Mood and Affect: Mood normal. Thought Content: Thought content normal. Judgment: Judgment normal. Office Visit on 05/02/2024 Component Date Value Ref Range Status Hemoglobin A1C 05/02/2024 5.5 Final Assessment/Plan Diagnoses and all orders for this visit: Type 2 diabetes mellitus with diabetic neuropathy, without long-term current use of insulin ([facility]) - POCT Glycated hemoglobin, total Degenerative lumbar spinal stenosis - HYDROcodone-acetaminophen ([place]) 7.5-325 MG tablet; Take 1 tablet by mouth every 6 (six) hours if needed for severe pain Allergic rhinitis, unspecified - loratadine (Claritin) 10 MG tablet; Take 1 tablet (10 mg) by mouth Daily Depression with anxiety - ALPRAZolam (Xanax) 0.25 MG tablet; Take 1 tablet (0.25 mg) by mouth 2 (two) times a day as needed for anxiety Chronic combined systolic and diastolic congestive heart failure ([facility]/HCC) - Echocardiogram 2D complete Panlobular emphysema (CMS/HCC) - Pulmonary Function Test - Ifimemy-Iyqfebodxhd-Xnhfpxdepg (Breztri Aerosphere) 160-9-4.8 MCG/ACT aerosol; Inhale 2 puffs in the morning and 2 puffs before bedtime. Symptomatic cholelithiasis - May need removal, but not medically stable for surgery at present Follow up in about 2 weeks (around 05/16/2024) for Test/Lab Review, F/U med changes. documented in this encounter [facility] 04-28-2024 History of Presen t illness Narrative Patient: Jaquelin Norwood : 1940 PCP: Yossi Landers MD SUBJECTIVE This is a 83 y.o. female that presents today with a CC of elongated, thick nails. Pt states nails have been elongated and thick for many years and cause pain with ambulation in shoegear. Pt has tried previous treatment with minimal relief. Pt presents today for nail care and treatment. Patient is DM2 Pt also has history of venous stasis to b/l lower extremities. Allergies: Allergies Allergen Reactions Benztropine Other Benztropine Mesylate Other Reaction(s): hallucinations Naproxen Other Reaction(s): gogo oral edema Vioxx [Rofecoxib] Past Medical History: Past Medical History: Diagnosis Date Acquired hypothyroidism (CMS/HCC) Acute exacerbation of chronic obstructive pulmonary disease (CMS/HCC) 07/16/2016 Anxiety state (CMS/HCC) Cardiomegaly Chronic airway obstruction (CMS/HCC) Chronic back pain spinal stenosis Depressive disorder (CMS/HCC) Diabetes mellitus without complication (CMS/HCC) Diabetes mellitus without mention of complication, type II or unspecified type, not stated as uncontrolled Encephalopathy 10/14/2022 Essential hypertension, benign (CMS/HCC) Former smoker 08/15/2017 H/O being hospitalized 02/20/2020 Resp. Distress, Hypoxia, JONE, LLL Pneumonia, Sepsis History of echocardiogram 02/21/2020 ECHO EF 65-70% [facility] Severely Dilated (02/21/2020) Hyperlipidemia, unspecified (CMS/HCC) Hypertonicity of bladder Left thyroid nodule (CMS/HCC) Morbid obesity (CMS/HCC) 07/04/2019 Osteoarthrosis Peripheral vascular disease, unspecified ([facility]) Unspecified combined systolic (congestive) and diastolic (congestive) heart failure ([facility]) Medications: Current Outpatient Medications: albuterol (2.5 MG/3ML) 0.083% nebulizer solution, Take 2.5 mg by nebulization every 8 (eight) hours if needed., Disp: , Rfl: albuterol HFA (ProAir HFA) 90 mcg/act inhaler, Inhale 2 puffs every 4 (four) hours if needed., Disp: , Rfl: ALPRAZolam (Xanax) 0.25 MG tablet, Take 1 tablet (0.25 mg) by mouth 2 (two) times a day as needed for anxiety, Disp: 60 tablet, Rfl: 0 aspirin 81 MG EC tablet, Take 81 mg by mouth 1 (one) time each day at the same time., Disp: , Rfl: atorvastatin (Lipitor) 40 MG tablet, TAKE 1 TABLET EVERY MORNING, Disp: 90 tablet, Rfl: 3 Blood Glucose Monitoring Suppl (ONE TOUCH ULTRA 2) w/Device kit, Inject under the skin 1 (one) time each day., Disp: , Rfl: buPROPion (Zyban) 150 MG 12 hr tablet, Take 1 tablet (150 mg) by mouth in the morning and 1 tablet (150 mg) before bedtime., Disp: 180 tablet, Rfl: 3 carvedilol (Coreg) 12.5 MG tablet, TAKE 1 TABLET (12.5 MG) BY MOUTH IN THE MORNING AND 1 TABLET (12.5 MG) BEFORE BEDTIME., Disp: 180 tablet, Rfl: 3 [employer] Stool Softener 100 MG capsule, Take 100 mg by mouth in the morning and 100 mg before bedtime., Disp: , Rfl: DULoxetine (Cymbalta) [address] capsule, TAKE 1 CAPSULE EVERY MORNING, Disp: 90 capsule, Rfl: 3 famotidine (Pepcid) 20 MG tablet, Take 1 tablet (20 mg) by mouth at bedtime, Disp: 90 tablet, Rfl: 0 furosemide (Lasix) 40 MG tablet, TAKE 1 TABLET EVERY MORNING, Disp: 90 tablet, Rfl: 3 gabapentin (Neurontin) 100 MG capsule, Take 2 capsules (200 mg) by mouth in the morning and 2 capsules (200 mg) before bedtime., Disp: 360 capsule, Rfl: 3 glucose blood (True Metrix Blood Glucose Test) test strip, 1 each by Other route 1 (one) time each day at the same time., Disp: , Rfl: HYDROcodone-acetaminophen ([place]) 7.5-325 MG tablet, Take 1 tablet by mouth every 6 (six) hours if needed for severe pain, Disp: 120 tablet, Rfl: 0 Lancets (OneTouch Delica Plus Ddoocl80O[place] [facility] 1 LANCET TO TEST BLOOD SUGAR ONCE DAILY, Disp: , Rfl: levothyroxine (Synthroid, Levoxyl) 100 MCG tablet, TAKE 1 TABLET (100 MCG) BY MOUTH IN THE MORNING. TAKE BEFORE MEALS., Disp: 90 tablet, Rfl: 3 linaCLOtide (Linzess) 290 MCG capsule, Take by mouth, Disp: , Rfl: lisinopril 5 MG tablet, TAKE 1 TABLET EVERY MORNING, Disp: 90 tablet, Rfl: 3 loratadine (Claritin) 10 MG tablet, TAKE 1 TABLET BY MOUTH EVERY DAY, Disp: 90 tablet, Rfl: 3 meclizine (Antivert) 12.5 MG tablet, Take 12.5 mg by mouth 3 (three) times a day as needed for dizziness., Disp: , Rfl: Multiple Vitamins-Minerals (OCUVITE ADULT 50+ PO), Take by mouth 1 (one) time each day., Disp: , Rfl: mupirocin (Bactroban) 2 % ointment, , Disp: , Rfl: nitroglycerin (Nitrostat) 0.4 MG SL tablet, Place 0.4 mg under the tongue every 5 (five) minutes if needed., Disp: , Rfl: nystatin (Mycostatin) ointment, every 12 (twelve) hours., Disp: , Rfl: omeprazole (PriLOSEC) [address] capsule, TAKE 1 CAPSULE (40 MG) BY MOUTH IN THE MORNING. TAKE BEFORE MEALS., Disp: 90 capsule, Rfl: 3 ondansetron (Zofran) 4 MG tablet, Take 2 tablets (8 mg) by mouth every 8 (eight) hours if needed for nausea or vomiting, Disp: 60 tablet, Rfl: 1 Social History: Social History Socioeconomic History Marital status: Spouse name: Not on file Number of children: Not on file Years of education: Not on file Highest education level: Not on file Occupational History Not on file Tobacco Use Smoking status: Former Current packs/day: 0.00 Types: Cigarettes Quit date: 10/27/2012 Years since quittin.4 Smokeless tobacco: Never Vaping Use Vaping status: Never Used Substance and Sexual Activity Alcohol use: Not Currently Comment: caffeine intake: 2-3 cups per day of coffee Drug use: Not Currently Sexual activity: Defer Other Topics Concern Not on file Social History Narrative Not on file Social Drivers of Health Financial Resource Strain: Low Risk (11/12/2022) Overall Financial Resource Strain (CARDIA) Difficulty of Paying Living Expenses: Not very hard Food Insecurity: No Food Insecurity (11/12/2022) Hunger Vital Sign Worried About Running Out of Food in the Last Year: Never true Ran Out of Food in the Last Year: Never true Transportation Needs: No Transportation Needs (11/12/2022) PRAPARE - Transportation Lack of Transportation (Medical): No Lack of Transportation (Non-Medical): No Physical Activity: Inactive (11/12/2022) Exercise Vital Sign Days of Exercise per Week: 0 days Minutes of Exercise per Session: 0 min Stress: No Stress Concern Present (11/12/2022) [employer] [place] [employer] - Occupational Stress Questionnaire Feeling of Stress : Not at all Social Connections: Moderately Isolated (11/12/2022) Social Connection and Isolation Panel [NHANES] Frequency of Communication with Friends and Family: More than three times a week Frequency of Social Gatherings with Friends and Family: Once a week Attends Scientologist Services: Never Active Member of Clubs or Organizations: No Attends Club or Organization Meetings: Never Marital Status: Intimate Partner Violence: Not At Risk (11/12/2022) Humiliation, Afraid, Rape, and Kick questionnaire Fear of Current or Ex-Partner: No Emotionally Abused: No Physically Abused: No Sexually Abused: No Housing Stability: Low Risk (11/12/2022) Housing Stability Vital Sign Unable to Pay for Housing in the Last Year: No Number of Places Lived in the Last Year: 1 Unstable Housing in the Last Year: No ROS: General: denies fever, chills, fatigue, malaise Gastrointestinal: denies abdominal pain, ulcers, or changes in appetite or bowel habits Musculoskeletal: Positive history of arthritis and back surgery in the past Cardiovascular: denies CP, palpitations, irregular rhythms. Positive history of CHF OBJECTIVE LE EXAM: DERM: Elongated thick yellow crumbly nails digits 1 through 10. Negative hair growth with thin shiny atrophic skin bilaterally. Plus two pitting edema to bilateral ankles and legs VASC: Negative DP and negative PT pedal pulses NEURO: 5.07 [place] Arturo monofilament test intact to digits and forefoot bilaterally 125Hz tuning fork diminished to 1st MPJ bilaterally ORTHO: Positive pain on palpation to nails 1 through 10 ASSESSMENT 1. Type 2 diabetes mellitus with diabetic neuropathy, without long-term current use of insulin ([facility]) 2. Pain due to onychomycosis of toenails of both feet 3. Venous insufficiency PLAN Discussed proper foot care with patient today. Debride nails in length and thickness digits 1 through 10 Patient educated today on proper diabetic foot care including monitoring feet daily for any signs of infection openings in the skin or irregularities to both feet. Patient had a diabetic neurological exam today to both their feet and discussed proper shoe gear. Continue with elevation of feet when nonweightbearing Alessandro Levi DPM documented in this encounter [facility] 03-30-2024 Telephone encount er Note OARRS reviewed, Rx sent into patient's pharmacy. [facility] 03-30-2024 Miscellaneous Notes Formattin g of this note might be different from the original. OARRS reviewed, Rx sent into patient's pharmacy. documented in this encounter [facility] 03-08-2024 Evaluation + Plan note Extrac marisel from: Title:ANES Post-operative Note---General Author: Luciano Grace MD Date:03/08/24 Plan Transfer/Discharge: Transfer/Discharge Discharge when meets criteria ( To home ). Extracted from: Title:ANES Pre-operative Note 2022 Author:Luciano López Date:03/08/24 Plan [place] [employer] Anesthesiologists (ASA) physical status classification: Class IV. Anesthetic Preoperative Plan: Anesthesia Monitored anethesia care. [facility] 09-17-2024 NoteProgress Note-Physician Patient: JAQUELIN NORWOOD Age: 83 years Sex: Female : 1940 Associated Diagnoses: None Author: Luciano Grace MD Postoperative Information Postoperative disposition: Postoperative disposition: To PACU. Optimetrix number: Optimetrix number [id number]. Anesthetic utilized: General. Health Status Allergies: Allergic Reactions (Selected) Severity Not Documented Benztropine Mesylate- Unknown and hallucinations. Naproxen- Edema and unknown. Vioxx- Unknown. Physical Examination Vital Signs 03/08/2024 10:42 EDT Heart Rate Monitored 80 bpm Respiratory Rate Monitored 15 br/min Systolic Blood Pressure 137 mmHg Diastolic Blood Pressure 85 mmHg Blood Pressure Location Left arm Mean Arterial Pressure, Cuff 102 mmHg SpO2 97 % 03/08/2024 10:30 EDT Heart Rate Monitored 82 bpm Respiratory Rate Monitored 27 br/min Systolic Blood Pressure 129 mmHg Diastolic Blood Pressure 94 mmHg HI Blood Pressure Location Left arm Mean Arterial Pressure, Cuff 106 mmHg SpO2 99 % 03/08/2024 10:25 EDT Heart Rate Monitored 82 bpm Respiratory Rate Monitored 17 br/min Systolic Blood Pressure 120 mmHg Diastolic Blood Pressure 57 mmHg LOW Blood Pressure Location Left arm Mean Arterial Pressure, Cuff 78 mmHg SpO2 98 % 03/08/2024 10:20 EDT Heart Rate Monitored 77 bpm Respiratory Rate Monitored 21 br/min Systolic Blood Pressure 130 mmHg Diastolic Blood Pressure 37 mmHg LOW Blood Pressure Location Left arm Mean Arterial Pressure, Cuff 68 mmHg SpO2 99 % 03/08/2024 10:17 EDT Temperature Temporal Artery 36.3 DegC Heart Rate Monitored 76 bpm Respiratory Rate Monitored 23 br/min Systolic Blood Pressure 140 mmHg HI Diastolic Blood Pressure 70 mmHg Blood Pressure Location Left arm Mean Arterial Pressure, Cuff 93 mmHg SpO2 97 % Pain Assessment: Controlled. General: Awake, Appropriate. Respiratory: Adequate air exchange. Cardiovascular: Stable. Neurological Assessment Anesthetic outcome No anesthetic complications noted. Adequate pain relief. Review / Management Condition: Stable. Plan Transfer/Discharge: Transfer/Discharge Discharge when meets criteria ( To home ).[facility] Comment: Electronically Signed By: Fish MD, Luciano D.\.br\Date and Time Signed: 03/08/24 13:29 EDT 03-08-2024 Hospital Discharge instructions Patient Education 03/08/2024 10:37:00 Colonoscopy, Care After Surgery Ben (CUSTOM) Colonoscopy Care After Surgery Please read the instructions outlined below and refer to this sheet in the next few weeks. These discharge instructions provide you with general information on caring for yourself after you leave thespital. Your doctor may also give you specific instructions. While your treatment has been planned according to the most current medical practices available, unavoidable complications occasionally occur. If you have any problems or questions after discharge, please call your doctor. ACTIVITY You may resume your regular activity, but move at a slower pace for the next 24 hours. Take frequent rest periods for the next 24 hours. Walking will help get rid of the air and reduce the bloated feeling in your abdomen (belly). No driving for 24 hours (because of the anesthesia (medicine) used during the test). You may shower. Do not sign any important legal documents or operate any machinery for 24 hours (because of the anesthesia used during the test). NUTRITION Drink plenty of fluids. You may resume your normal diet as instructed by your doctor. Begin with a light meal and progress to your normal diet. Heavy or fried foods are harder to digestand may make you feel nauseated (sick to your stomach). Avoid alcoholic beverages for 24 hours or as instructed. MEDICATIONS You may resume your normal medications unless your doctor tells you otherwise. WHAT YOU CAN EXPECT TODAY Some feelings of bloating in the abdomen. Passage of more gas than usual. Spotting of blood in your stool or on the toilet paper. FOLLOW-UP Your doctor will discuss the results of your test with you. SEEK IMMEDIATE MEDICAL ATTENTION IF: There is more than a spotting of blood in your stool. There is abdominal distention (your abdomen is swollen). There is vomiting. You have a temperature over 101.5 F. There is abdominal pain or discomfort that is severe or gets worse throughout the day. 03/08/2024 10:36:54 Colon Polyps Colon Polyps Colon polyps are tissue growths inside the colon, which is part of the large intestine. They are one of the types of polyps that can grow in the body. A polyp may be a round bump or a mushroom-shapedgrowth. You could have one polyp or more than one. Most colon polyps are noncancerous (benign). However, some colon polyps can become cancerous over time. Finding and removing the polyps early can help prevent this. What are the causes? The exact cause of colon polyps is not known. What increases the risk? The following factors may make you more likely to develop this condition: Having a family history of colorectal cancer or colon polyps. Being older than 45 years of age. Being younger than 45 years of age and having a significant family history of colorectal cancer or colon polyps or a genetic condition that puts you at higher risk of getting colon polyps. Having inflammatory bowel disease, such as ulcerative colitis or Crohn's disease. Having certain conditions passed from parent to child (hereditary conditions), such as: ?Familial adenomatous polyposis (FAP). ?Johansen syndrome. ?Turcot syndrome. ?Peutz Jeghers syndrome. ?MUTYH-associated polyposis (MAP). Being overweight. Certain lifestyle factors. These include smoking cigarettes, drinking too much alcohol, not gettingenough exercise, and eating a diet that is high in fat and red meat and low in fiber. Having had childhood cancer that was treated with radiation of the abdomen. What are the signs or symptoms? Many times, there are no symptoms. If you have symptoms, they may include: Blood coming from the rectum during a bowel movement. Blood in the stool (feces). The blood may be bright red or very dark in color. Pain in the abdomen. A change in bowel habits, such as constipation or diarrhea. How is this diagnosed? This condition is diagnosed with a colonoscopy. This is a procedure in which a lighted, flexible scope is inserted into the opening between the buttocks (anus) and then passed into the colon to examine the area. Polyps are sometimes found when a colonoscopy is done as part of routine cancer screening tests. How is this treated? This condition is treated by removing any polyps that are found. Most polyps can be removed during a colonoscopy. Those polyps will then be tested for cancer. Additional treatment may be needed depending on the results of testing. Follow these instructions at home: Eating and drinking Eat foods that are high in fiber, such as fruits, vegetables, and whole grains. Eat foods that are high in calcium and vitamin D, such as milk, cheese, yogurt, eggs, liver, fish, and broccoli. Limit foods that are high in fat, such as fried foods and desserts. Limit the amount of red meat, precooked or cured meat, or other processed meat that you eat, such as hot dogs, sausages, joshi, or meat loaves. Limit sugary drinks. Lifestyle Maintain a healthy weight, or lose weight if recommended by your health care provider. Exercise every day or as told by your health care provider. Do not use any products that contain nicotine or tobacco, such as cigarettes, e- cigarettes, and chewing tobacco. If you need help quitting, ask your health care provider. Do not drink alcohol if: ?Your health care provider tells you not to drink. ?You are , may be , or are planning to become . If you drink alcohol: ?Limit how much you use to: ?0 1 drink a day for women. ?0 2 drinks a day for men. ?Know how much alcohol is in your drink. In the [place] one drink equals one 12 oz bottle of beer (355 mL), one 5 oz glass of wine (148 mL), or one 1 oz glass of hard liquor (44 mL). General instructions Take nxul-mbd-gljxdsa and prescription medicines only as told by your health care provider. Keep all follow-up visits. This is important. This includes having regularly scheduled colonoscopies. Talk to your health care provider about when you need a colonoscopy. Contact a health care provider if: You have new or worsening bleeding during a bowel movement. You have new or increased blood in your stool. You have a change in bowel habits. You lose weight for no known reason. Summary Colon polyps are tissue growths inside the colon, which is part of the large intestine. They are one type of polyp that can grow in the body. Most colon polyps are noncancerous (benign), but some can become cancerous over time. This condition is diagnosed with a colonoscopy. This condition is treated by removing any polyps that are found. Most polyps can be removed during a colonoscopy. This information is not intended to replace advice given to you by your health care provider. Make sure you discuss any questions you have with your health care provider. Document Revised: 09/26/2020 Document Reviewed: 09/26/2020 [employer] Patient Education [address] 03/08/2024 10:36:48 Diverticulosis Diverticulosis Diverticulosis is when small pouches called diverticula form in the wall of the colon. The colon iswhere water is absorbed. It is also where poop (stool) is formed. The pouches form when the inside layer of the colon pushes through weak spots in the outer layers of the colon. You may have a few pouches or many of them. In most cases, the pouches do not cause problems. If they become inflamed or infected, you may havea condition called diverticulitis. What are the causes? The cause of this condition is not known. What increases the risk? You are more likely to get this condition if: You are older than 60 years of age. You do not eat enough fiber or you get constipated a lot. You are overweight. You do not get enough exercise. You smoke. You take dbgf-jmt-yjrbadk pain medicines. You have a family history of the condition. What are the signs or symptoms? In most people, there are no symptoms. If you do have symptoms, they may include: Bloating. Stomach cramps. Constipation or diarrhea. Pain in the lower left side of your abdomen. How is this diagnosed? This condition is often diagnosed during an exam for other colon problems. It may be diagnosed whenyou have: A colonoscopy. This is when a tube with a camera on the end is used to look at your colon. A barium enema. This is an X-ray exam that uses dye to look at your colon. A CT scan. How is this treated? You may not need treatment. Your health care provider will tell you what you can do at home to helpprevent problems. You may need treatment if you have symptoms or if you have had diverticulitis before. You may be told to: Eat a high-fiber diet. Take medicine to relax your colon. Lose weight. Follow these instructions at home: Medicines Take dvll-dtf-ubjoxms and prescription medicines only as told by your provider. If told, take a fiber supplement or probiotic. Managing constipation Your condition may cause constipation. To prevent or treat constipation, you may need to: Drink enough fluid to keep your pee (urine) pale yellow. Take fpcg-sdk-yafralx or prescription medicines. Eat foods that are high in fiber, such as beans, whole grains, and fresh fruits and vegetables. Limit foods that are high in fat and processed sugars, such as fried or sweet foods. Try not to strain when you poop. Contact a health care provider if: Your symptoms get worse all of a sudden. You have pain in your abdomen that gets worse. You have bloating or stomach cramps. You continue to have frequent constipation. You have a fever or chills. You vomit. Your poop is bloody, black, or tarry. This information is not intended to replace advice given to you by your health care provider. Make sure you discuss any questions you have with your health care provider. Document Revised: 03/05/2023 Document Reviewed: 03/05/2023 [employer] Patient Education [address] 03/08/2024 10:36:44 Hemorrhoids, Jlkb-jg-Njow Hemorrhoids Hemorrhoids are swollen veins that may form: In the butt (rectum). These are called internal hemorrhoids. Around the opening of the butt (anus). These are called external hemorrhoids. Most hemorrhoids do not cause very bad problems. They often get better with changes to your lifestyle and what you eat. What are the causes? Having trouble pooping (constipation) or watery poop (diarrhea). Pushing too hard when you poop. . Being very overweight (obese). Sitting for too long. Riding a bike for a long time. Heavy lifting or other things that take a lot of effort. Anal sex. What are the signs or symptoms? Pain. Itching or soreness in the butt. Bleeding from the butt. Leaking poop. Swelling. One or more lumps around the opening of your butt. How is this treated? In most cases, hemorrhoids can be treated at home. You may be told to: Change what you eat. Make changes to your lifestyle. If these treatments do not help, you may need to have a procedure done. Your doctor may need to: Place rubber bands at the bottom of the hemorrhoids to make them fall off. Put medicine into the hemorrhoids to shrink them. Shine a type of light on the hemorrhoids to cause them to fall off. Do surgery to get rid of the hemorrhoids. Follow these instructions at home: Medicines Take zxgg-btv-jolftax and prescription medicines only as told by your doctor. Use creams with medicine in them or medicines that you put in your butt as told by your doctor. Eating and drinking Eat foods that have a lot of fiber in them. These include whole grains, beans, nuts, fruits, and vegetables. Ask your doctor about taking products that have fiber added to them (fibersupplements). Take in less fat. You can do this by: ?Eating low-fat dairy products. ?Eating less red meat. ?Staying away from processed foods. Drink enough fluid to keep your pee (urine) pale yellow. Managing pain and swelling Take a warm-water bath (sitz bath) for 20 minutes to ease pain. Do this 3 4 times a day. You may dothis in a bathtub. You may also use a portable sitz bath that fits over the toilet. If told, put ice on the painful area. It may help to use ice between your warm baths. ?Put ice in a plastic bag. ?Place a towel between your skin and the bag. ?Leave the ice on for 20 minutes, 2 3 times a day. If your skin turns bright red, take off the ice right away to prevent skin damage. The risk of damage is higher if you cannot feel pain, heat, or cold. General instructions Exercise. Ask your doctor how much and what kind of exercise is best for you. Go to the bathroom when you need to poop. Do not wait. Try not to push too hard when you poop. Keep your butt dry and clean. Use wet toilet paper or moist towelettes after you poop. Do not sit on the toilet for a long time. Contact a doctor if: You have pain and swelling that do not get better with treatment. You have trouble pooping. You cannot poop. You have pain or swelling outside the area of the hemorrhoids. Get help right away if: You have bleeding from the butt that will not stop. This information is not intended to replace advice given to you by your health care provider. Make sure you discuss any questions you have with your health care provider. Document Revised: 02/18/2023 Document Reviewed: 02/18/2023 [employer] Patient Education [address] Follow Up Care 02/16/2024 14:51:06 With:Amaris VALDEZ, WILBERTO Jean-Baptiste, [facility] Address: [facility] [address] [place] [address] [phone] When: Unknown Comments:Office will call to schedule follow up appointment and/or review any pending biopsy resultsCall forany problems. [facility] 09-17-2024 NotePatient Education - Text Colonoscopy Care After Surgery Please read the instructions outlined below and refer to this sheet in the next few weeks. These discharge instructions provide you with general information on caring for yourself after you leave thespital. Your doctor may also give you specific instructions. While your treatment has been planned according to the most current medical practices available, unavoidable complications occasionally occur. If you have any problems or questions after discharge, please call your doctor. ACTIVITY You may resume your regular activity, but move at a slower pace for the next 24 hours. Take frequent rest periods for the next 24 hours. Walking will help get rid of the air and reduce the bloated feeling in your abdomen (belly). No driving for 24 hours (because of the anesthesia (medicine) used during the test). You may shower. Do not sign any important legal documents or operate any machinery for 24 hours (because of the anesthesia used during the test). NUTRITION Drink plenty of fluids. You may resume your normal diet as instructed by your doctor. Begin with a light meal and progress to your normal diet. Heavy or fried foods are harder to digestand may make you feel nauseated (sick to your stomach). Avoid alcoholic beverages for 24 hours or as instructed. MEDICATIONS You may resume your normal medications unless your doctor tells you otherwise. WHAT YOU CAN EXPECT TODAY Some feelings of bloating in the abdomen. Passage of more gas than usual. Spotting of blood in your stool or on the toilet paper. FOLLOW-UP Your doctor will discuss the results of your test with you. SEEK IMMEDIATE MEDICAL ATTENTION IF: There is more than a spotting of blood in your stool. There is abdominal distention (your abdomen is swollen). There is vomiting. You have a temperature over 101.5 F. There is abdominal pain or discomfort that is severe or gets worse throughout the day. Gastroenterology Diverticulosis Diverticulosis is when small pouches called diverticula form in the wall of the colon. The colon iswhere water is absorbed. It is also where poop (stool) is formed. The pouches form when the inside layer of the colon pushes through weak spots in the outer layers of the colon. You may have a few pouches or many of them. In most cases, the pouches do not cause problems. If they become inflamed or infected, you may havea condition called diverticulitis. What are the causes? The cause of this condition is not known. What increases the risk? You are more likely to get this condition if: ? You are older than 60 years of age. ? You do not eat enough fiber or you get constipated a lot. ? You are overweight. ? You do not get enough exercise. ? You smoke. ? You take olmq-vjn-ragtijl pain medicines. ? You have a family history of the condition. What are the signs or symptoms? In most people, there are no symptoms. If you do have symptoms, they may include: ? Bloating. ? Stomach cramps. ? Constipation or diarrhea. ? Pain in the lower left side of your abdomen. How is this diagnosed? This condition is often diagnosed during an exam for other colon problems. It may be diagnosed whenyou have: ? A colonoscopy. This is when a tube with a camera on the end is used to look at your colon. ? A barium enema. This is an X-ray exam that uses dye to look at your colon. ? A CT scan. How is this treated? You may not need treatment. Your health care provider will tell you what you can do at home to helpprevent problems. You may need treatment if you have symptoms or if you have had diverticulitis before. You may be told to: ? Eat a high-fiber diet. ? Take medicine to relax your colon. ? Lose weight. Follow these instructions at home: Medicines ? Take ksuy-itn-hyzcpxh and prescription medicines only as told by your provider. ? If told, take a fiber supplement or probiotic. Managing constipation Your condition may cause constipation. To prevent or treat constipation, you may need to: ? Drink enough fluid to keep your pee (urine) pale yellow. ? Take wiil-dbk-fnhxcgj or prescription medicines. ? Eat foods that are high in fiber, such as beans, whole grains, and fresh fruits and vegetables. ? Limit foods that are high in fat and processed sugars, such as fried or sweet foods. Try not to strain when you poop. Contact a health care provider if: ? Your symptoms get worse all of a sudden. ? You have pain in your abdomen that gets worse. ? You have bloating or stomach cramps. ? You continue to have frequent constipation. ? You have a fever or chills. ? You vomit. ? Your poop is bloody, black, or tarry. This information is not intended to replace advice given to you by your health care provider. Make sure you discuss any questions you have with your health care provider. Document Lise (more content not included)...[facility] 03-08-2024 NoteProgress Note-Physician Patient: JAQUELIN NORWOOD Age: 83 years Sex: Female : 1940 Associated Diagnoses: None Author: Sanjay VALDEZ, Luciano Leonard Preoperative Information Anesthesia Preop Info: Time patient last ate or drank 03/08/2024 00:00:00. Anesthesia history: Patient history: None. Family history+: None. Informed consent: Signed by patient. Re-evaluation prior to induction: Initial evaluation reviewed: No significant change. Review of Systems Eye Ear/Nose/Mouth/Throat Respiratory: Shortness of breath, mild increased SOB over baseline x 2-3 weeks; no increased cough or cold symptoms; compliant with meds including daily maintenance inhaler and HHnl. patient poor historian; family states no change in breathing, No cough, No wheezing. Cardiovascular: No chest pain. Musculoskeletal Neurologic Health Status Allergies: Allergic Reactions (Selected) Severity Not Documented Benztropine Mesylate- Unknown and hallucinations. Naproxen- Edema and unknown. Vioxx- Unknown., Allergies (5) Active Severity Reaction Benztropine Mesylate Unknown naproxen Unknown Vioxx Unknown Benztropine Mesylate Hallucinations naproxen Edema Current medications: (Selected) Inpatient Medications Ordered Lactated Ringers IV Sabrina 1000 mL 1,000 mL: 1,000 mL, IV, 100 mL/hr, Routine, Start date 03/08/24 10:05:00 EDT, 10 hour(s), Total volume (mL): 1,000, 87.3 kg, 2, m2 Sodium Chloride 0.9% IV Sabrina 1000 mL 1,000 mL: 1,000 mL, IV, 20 mL/hr, Routine, Start date 03/08/24 6:40:00 EDT, 50 hour(s), Total volume (mL): 1,000 Documented Medications Documented Albuterol (Eqv-ProAir HFA) 90 mcg/inh inhalation aerosol: puff(s), Inhalation, q6hr, Refill(s) 0, Shortness of breath or wheezing Linzess 290 mcg oral capsule: mcg cap(s), Oral, Daily, Refills(s) 0, Constipation albuterol 0.083% Inh Sabrina 3 mL: 2.5 mg, 3 mL, Inhalation, q6hr Shortness of breath or wheezing, Refill(s) 12, Q6H and PRN aspirin 81 mg Oral EC Tab: 81 mg = 1 tab(s), Oral, Daily, Refills(s) 0, Blood Thinner atorvastatin 40 mg Tab: mg tab(s), Oral, Daily, Refills(s) 0, High cholesterol buPROPion 150 mg ER Tab: mg tab(s), Oral, BID, Refills(s) 0, Anxiety carvedilol 12.5 mg Tab: mg tab(s), Oral, BID, Refills(s) 0, High blood pressure duloxetine 60 mg Cap-DR: Oral, BID, Refills(s) 0, Depression famotidine 20 mg Tab: mg tab(s), Oral, BID, Refills(s) 0, Control of stomach acid furosemide 40 mg Tab: 40 mg = 1 tab(s), Oral, Daily, Refills(s) 0, diuretic/water pill levothyroxine 100 mcg (0.1 mg) Tab: mcg tab(s), Oral, Daily, Refills(s) 0, Thyroid lisinopril 5 mg Tab: mg tab(s), Oral, Daily, Refills(s) 0, High blood pressure nitroglycerin 0.4 mg sublingual Tab: 0.4 mg = 1 tab(s), SubLingual, q5min, PRN for chest pain, # 100 tab(s), Refills(s) 0 omeprazole 40 mg Cap-DR: mg cap(s), Oral, Daily, Refills(s) 0, Control of stomach acid, Home Medications (14) Active Albuterol (Eqv-ProAir HFA) 90 mcg/inh inhalation aerosol , Inhalation, q6hr albuterol 0.083% Inh Sabrina 3 mL 2.5 mg = 3 mL, PRN, Inhalation, q6hr aspirin 81 mg Oral EC Tab 81 mg = 1 tab(s), Oral, Daily atorvastatin 40 mg Tab , Oral, Daily buPROPion 150 mg ER Tab , Oral, BID carvedilol 12.5 mg Tab , Oral, BID duloxetine 60 mg Cap-DR , Oral, BID famotidine 20 mg Tab , Oral, BID furosemide 40 mg Tab 40 mg = 1 tab(s), Oral, Daily levothyroxine 100 mcg (0.1 mg) Tab , Oral, Daily Linzess 290 mcg oral capsule , Oral, Daily lisinopril 5 mg Tab , Oral, Daily nitroglycerin 0.4 mg sublingual Tab 0.4 mg = 1 tab(s), PRN, SubLingual, q5min omeprazole 40 mg Cap-DR , Oral, Daily , Medications (2) Active Scheduled: (0) Continuous: (2) Lactated Ringers 1,000 mL 1,000 mL, IV, 100 mL/hr Sodium Chloride 0.9% 1,000 mL 1,000 mL, IV, 20 mL/hr PRN: (0) Problem list: All Problems Abnormal CT of the abdomen / SNOMED CT 8582554675 / Confirmed Cholelithiasis / SNOMED CT 318925525 / Confirmed Esophageal dysmotility / SNOMED CT 515151984 / Confirmed Esophageal dysphagia / SNOMED CT 33986667 / Confirmed History of gastric surgery / SNOMED CT 6406779833 / Confirmed, Active Problems (5) Abnormal CT of the abdomen Cholelithiasis Esophageal dysmotility Esophageal dysphagia History of gastric surgery Histories Past Medical History: No active or resolved past medical history items have been selected or recorded. Family History: Heart disease Mother Diabetes mellitus type 2 Mother Cancer Father Mother Procedure history: Sigmoidoscopy ([id number]) on 03/08/2024 at 83 Years. EGD - esophagogastroduodenoscopy ([id number]) on 02/03/2024 at 83 Years. Colonoscopy ([id number]) on 02/03/2024 at 83 Years. Social History Social & Psychosocial Habits Tobacco 12/21/2023 Tobacco Use: Former smoker, quit more . Physical Examination Vital Signs 03/08/2024 8:46 EDT Temperature Temporal Artery 36.7 DegC Heart Rate Monitored 88 bpm Respiratory Rate 2 (more content not included)...[facility] Comment on above:Result Comment: Electronically Signed By: Sanjay VALDEZ, Luciano Nova.zari\Date and Time Signed: 03/08/24 10:10 [id number] History of Present illness Narrative* Alessandro Waggoner Austen, DPM - 02/18/2024 1:20 PM EDT Patient: Jaquelin Norwood : 1940 PCP: Yossi Landers MD SUBJECTIVE This is a 83 y.o. female that presents today with a CC of elongated, thick nails. Pt states nails have been elongated and thick for many years and cause pain with ambulation in shoegear. Pt has tried previous treatment with minimal relief. Pt presents today for nail care and treatment. Patient is DM2 Pt also presents today for secondary complaint of swelling to b/l ankle regions and feet. They state that condition is starting to worsten have tried no treatments for the condition. Statesswelling worstens with prolonged standing activities. Allergies: Allergies Allergen Reactions Benztropine Other Benztropine Mesylate Other Reaction(s): hallucinations Naproxen Other Reaction(s): ggoo oral edema Vioxx [Rofecoxib] Past Medical History: Past Medical History: Diagnosis Date Acquired hypothyroidism (CMS/HCC) Acute exacerbation of chronic obstructive pulmonary disease ([facility]) 07/16/2016 Anxiety state (CMS/HCC) Cardiomegaly Chronic airway obstruction (CMS/HCC) Chronic back pain spinal stenosis Depressive disorder (CMS/HCC) Diabetes mellitus without complication (CMS/HCC) Diabetes mellitus without mention of complication, type II or unspecified type, not stated as uncontrolled Encephalopathy 10/14/2022 Essential hypertension, benign (CMS/HCC) Former smoker 08/15/2017 H/O being hospitalized 02/20/2020 Resp. 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) Medications: Current Outpatient Medications: albuterol (2.5 MG/3ML) 0.083% nebulizer solution, Take 2.5 mg by nebulization every 8 (eight) hoursif needed., Disp: , Rfl: albuterol HFA (ProAir HFA) 90 mcg/act inhaler, Inhale 2 puffs every 4 (four) hours if needed., Disp: , Rfl: ALPRAZolam (Xanax) 0.25 MG tablet, Take 1 tablet (0.25 mg) by mouth 2 (two) times a day as needed for anxiety, Disp: 60 tablet, Rfl: 0 aspirin 81 MG EC tablet, Take 81 mg by mouth 1 (one) time each day at the same time., Disp: , Rfl: atorvastatin (Lipitor) 40 MG tablet, TAKE 1 TABLET EVERY MORNING, Disp: 90 tablet, Rfl: 3 Blood Glucose Monitoring Suppl (Riffyn 2) w/Device kit, Inject under the skin 1 (one) timeeach day., Disp: , Rfl: buPROPion (Zyban) 150 MG 12 hr tablet, Take 1 tablet (150 mg) by mouth in the morning and 1 tablet (150 mg) before bedtime., Disp: 180 tablet, Rfl: 3 carvedilol (Coreg) 12.5 MG tablet, TAKE 1 TABLET (12.5 MG) BY MOUTH IN THE MORNING AND 1 TABLET (12.5 MG) BEFORE BEDTIME., Disp: 180 tablet, Rfl: 3 [employer] Stool Softener 100 MG capsule, Take 100 mg by mouth in the morning and 100 mg before bedtime., Disp: , Rfl: DULoxetine (Cymbalta) [address] capsule, TAKE 1 CAPSULE EVERY MORNING, Disp: 90 capsule, Rfl: 3 famotidine (Pepcid) 20 MG tablet, Take 1 tablet (20 mg) by mouth at bedtime, Disp: 90 tablet, Rfl: 0 furosemide (Lasix) 40 MG tablet, TAKE 1 TABLET EVERY MORNING, Disp: 90 tablet, Rfl: 3 gabapentin (Neurontin) 100 MG capsule, Take 2 capsules (200 mg) by mouth in the morning and 2 capsules (200 mg) before bedtime., Disp: 360 capsule, Rfl: 3 glucose blood (True Metrix Blood Glucose Test) test strip, 1 each by Other route 1 (one) time each day at the same time., Disp: , Rfl: HYDROcodone-acetaminophen ([place]) 7.5-325 MG tablet, Take 1 tablet by mouth every 6 (six) hours if needed for severe pain, Disp: 120 tablet, Rfl: 0 Lancets (OneTouch Delica Plus [id number]) [facility] [place] 1 LANCET TO TEST BLOOD SUGAR ONCE DAILY, Disp: ,Rfl: levothyroxine (Synthroid, Levoxyl) 100 MCG tablet, TAKE 1 TABLET (100 MCG) BY MOUTH IN THE MORNING.TAKE BEFORE MEALS., Disp: 90 tablet, Rfl: 3 linaCLOtide (Linzess) 290 MCG capsule, Take by mouth, Disp: , Rfl: lisinopril 5 MG tablet, TAKE 1 TABLET EVERY MORNING, Disp: 90 tablet, Rfl: 3 loratadine (Claritin) 10 MG tablet, TAKE 1 TABLET BY MOUTH EVERY DAY, Disp: 90 tablet, Rfl: 3 meclizine (Antivert) 12.5 MG tablet, Take 12.5 mg by mouth 3 (three) times a day as needed for dizziness., Disp: , Rfl: Multiple Vitamins-Minerals (OCUVITE ADULT 50+ PO), Take by mouth 1 (one) time each day., Disp: , Rfl: mupirocin (Bactroban) 2 % ointment, , Disp: , Rfl: nitroglycerin (Nitrostat) 0.4 MG SL tablet, Place 0.4 mg under the tongue every 5 (five) minutes ifneeded., Disp: , Rfl: nystatin (Mycostatin) ointment, every 12 (twelve) hours., Disp: , Rfl: omeprazole (PriLOSEC) [address] capsule, TAKE 1 CAPSULE (40 MG) BY MOUTH IN THE MORNING. TAKE BEFOREMEALS., Disp: 90 capsule, Rfl: 3 ondansetron (Zofran) 4 MG tablet, Take 2 tablets (8 mg) by mouth every 8 (eight) hours if needed for nausea or vomiting, Disp: 60 tablet, Rfl: 1 Social History: Social History Socioeconomic History Marital status: Spouse name: Not on file Number of children: Not on file Years of education: Not on file Highest education level: Not on file Occupational History Not on file Tobacco Use Smoking status: Former Current packs/day: 0.00 Types: Cigarettes Quit date: 10/27/2012 Years since quittin.3 Smokeless tobacco: Never Vaping Use Vaping status: Never Used Substance and Sexual Activity Alcohol use: Not Currently Comment: caffeine intake: 2-3 cups per day of coffee Drug use: Not Currently Sexual activity: Defer Other Topics Concern Not on file Social History Narrative Not on file Social Determinants of Health Financial Resource Strain: Low Risk (11/12/2022) Overall Financial Resource Strain (CARDIA) Difficulty of Paying Living Expenses: Not very hard Food Insecurity: No Food Insecurity (11/12/2022) Hunger Vital Sign Worried About Running Out of Food in the Last Year: Never true Ran Out of Food in the Last Year: Never true Transportation Needs: No Transportation Needs (11/12/2022) PRAPARE - Transportation Lack of Transportation (Medical): No Lack of Transportation (Non-Medical): No Physical Activity: Inactive (11/12/2022) Exercise Vital Sign Days of Exercise per Week: 0 days Minutes of Exercise per Session: 0 min Stress: No Stress Concern Present (11/12/2022) [place] of Occupational Health - Occupational Stress Questionnaire Feeling of Stress : Not at all Social Connections: Moderately Isolated (11/12/2022) Social Connection and Isolation Panel [NHANES] Frequency of Communication with Friends and Family: More than three times a week Frequency of Social Gatherings with Friends and Family: Once a week Attends Scientologist Services: Never Active Member of Clubs or Organizations: No Attends Club or Organization Meetings: Never Marital Status: Intimate Partner Violence: Not At Risk (11/12/2022) Humiliation, Afraid, Rape, and Kick questionnaire Fear of Current or Ex-Partner: No Emotionally Abused: No Physically Abused: No Sexually Abused: No Housing Stability: Low Risk (11/12/2022) Housing Stability Vital Sign Unable to Pay for Housing in the Last Year: No Number of Places Lived in the Last Year: 1 Unstable Housing in the Last Year: No ROS: General: denies fever, chills, fatigue, malaise Gastrointestinal: denies abdominal pain, ulcers, or changes in appetite or bowel habits Musculoskeletal: Positive history of arthritis and back surgery in the past Cardiovascular: denies CP, palpitations, irregular rhythms. Positive history of CHF OBJECTIVE LE EXAM: DERM: Elongated thick yellow crumbly nails digits 1 through 10. Negative hair growth with thin shiny atrophic skin bilaterally. Plus two pitting edema to bilateral ankles and legs VASC: Negative DP and negative PT pedal pulses NEURO: 5.07 [place] Arturo monofilament test intact to digits and forefoot bilaterally 125Hz tuning fork diminished to 1st MPJ bilaterally ORTHO: Positive pain on palpation to nails 1 through 10 ASSESSMENT 1. Onychomycosis 2. Thickened nail 3. Type 2 diabetes mellitus with diabetic neuropathy, without long-term current use of insulin ([facility]) 4. Toe pain, bilateral 5. Venous insufficiency PLAN Discussed proper foot care with patient today. Debride nails in length and thickness digits 1 through 10 Patient educated today on proper diabetic foot care including monitoring feet daily for any signs of infection openings in the skin or irregularities to both feet. Patient had a diabetic neurologicalexam today to both their feet and discussed proper shoe gear. Pt also presents today for secondary complaint of swelling to b/l ankle regions and feet. They state that condition is starting to worsten have tried no treatments for the condition. Statesswelling worstens with prolonged standing activities. Alessandro Levi DPM documented in this encounterCenterPointe [id number] Evaluation + Plan note Extracted from: Title:ANES Post General Author:Jani Peterson DO Date:02/03/24 Plan Transfer/Discharge: Patient exhibiting no signs of N/V. Hydration status is adequate. Extracted from: Title:EGD Dysphagia balloon Author:Annette Glez MD Date:02/03/24 Patient: JAQUELIN NORWOOD Age: 83 years Sex: Female : 1940 Associated Diagnoses: None Author: Mandi Glez MD Pre-Procedure Procedure Date 02/03/2024 10:28:00 . Procedure Type: Esophagogastroduodenoscopy with dilation of esophagus with balloon less than 30 mm. Procedure provider Performed by Mandi Glez MD. Current history and physical Documented on chart. Informed Consent After discussing the rationale, risks and benefits, and alternatives to this procedure, the patient provided signed consent for the procedure. Pre-procedure diagnosis: Dysphagia . Medications (Selected) Inpatient Medications Ordered Lactated Ringers IV Sabrina 1000 mL 1,000 mL: 1,000 mL, IV, 100 mL/hr, Routine, Start date 01/11/24 8:41:00 EDT, 10 hour(s), Total volume (mL): 1,000, 87.3 kg, 2, m2 Lactated Ringers IV Sabrina 1000 mL 1,000 mL: 1,000 mL, IV, 100 mL/hr, Routine, Start date 02/03/24 9:21:00 EDT, 10 hour(s), Total volume (mL): 1,000 Sodium Chloride 0.9% IV Sabrina 1000 mL 1,000 mL: 1,000 mL, IV, 20 mL/hr, Routine, Start date 01/11/24 8:50:00 EDT, 50 hour(s), Total volume (mL): 1,000, 87.3 kg, 2, m2 Sodium Chloride 0.9% IV Sabrina 1000 mL 1,000 mL: 1,000 mL, IV, 20 mL/hr, Routine, Start date 02/03/24 6:59:00 EDT, 50 hour(s), Total volume (mL): 1,000 Documented Medications Documented Albuterol (Eqv-ProAir HFA) 90 mcg/inh inhalation aerosol: puff(s), Inhalation, q6hr, Refill(s) 0, Shortness of breath or wheezing Linzess 290 mcg oral capsule: mcg cap(s), Oral, Daily, Refills(s) 0, Constipation albuterol 0.083% Inh Sabrina 3 mL: 2.5 mg, 3 mL, Inhalation, q6hr Shortness of breath or wheezing, Refill(s) 12, Q6H and PRN aspirin 81 mg Oral EC Tab: 81 mg = 1 tab(s), Oral, Daily, Refills(s) 0, Blood Thinner atorvastatin 40 mg Tab: mg tab(s), Oral, Daily, Refills(s) 0, High cholesterol buPROPion 150 mg ER Tab: mg tab(s), Oral, BID, Refills(s) 0, Anxiety carvedilol 12.5 mg Tab: mg tab(s), Oral, BID, Refills(s) 0, High blood pressure duloxetine 60 mg Cap-DR: Oral, BID, Refills(s) 0, Depression famotidine 20 mg Tab: mg tab(s), Oral, BID, Refills(s) 0, Control of stomach acid furosemide 40 mg Tab: 40 mg = 1 tab(s), Oral, Daily, Refills(s) 0, diuretic/water pill levothyroxine 100 mcg (0.1 mg) Tab: mcg tab(s), Oral, Daily, Refills(s) 0, Thyroid lisinopril 5 mg Tab: mg tab(s), Oral, Daily, Refills(s) 0, High blood pressure nitroglycerin 0.4 mg sublingual Tab: 0.4 mg = 1 tab(s), SubLingual, q5min, PRN for chest pain, # 100 tab(s), Refills(s) 0 omeprazole 40 mg Cap-DR: mg cap(s), Oral, Daily, Refills(s) 0, Control of stomach acid Anticoagulant/antiplatelet None. ASA Classification: Class II. . Monitoring: See anesthesia record. . Anticoagulation use: Procedure The procedure was performed in the hospital. See anesthesia record for sedation given during procedure. The patient was positioned starting in the left lateral decubitus position and with safety measures. Endoscope type used was an adult-size, introduced orally, advanced to the 2nd portion of the duodenum. No difficulty was encountered during the procedure. Views were excellent. The patient tolerated the procedure well. Findings 1. Mild Schatzki ring and esophageal narrowing was noted at the GE junction. Dilation was performed using TTS balloon 12-15 mm, dilation was perfumed to 15 mm with moderate resistance. Minimal mucosal disruption was noted post dilation. No wall defect was seen afterwards. Biopsies obtained 2. Mild and patchy erythema throughout the stomach status post biopsies. 3. Patchy erythema in the duodenal bulb. otherwise, normal duodenum. Images Procedure images: Rec1_hd_video [id number].jpg Rec1_hd_video____[id number].jpg Rec1_hd_video___[id number].jpg Rec1_hd_video____[id number].jpg Rec1_hd_video____[id number].jpg Rec1_hd_video____[id number].jpg Rec1_hd_video_2023__[id number].jpg Rec1_hd_video___[id number].jpg Rec1_hd_video__[id number]__[id number].jpg Rec1_hd_video__T09__[id number].jpg Rec1_hd_video____[id number].jpg Rec1_hd_video__[id number].jpg . Post-Procedure Complications: none. Estimated blood loss: none. Specimens: None. Devices/ implants: none left in place. Impression and Plan Schatzki's ring and esophageal stricture status post dilation Gastropathy Duodenitis Recommendations: -Liquid then soft diet today, advance as tolerated tomorrow -Resume home medications -Await pathology results, follow in GI clinic in 1-2 after discharge for Addendum by Amaris VALDEZ, Jnoes Red on February 03, 2024 10:30 EDT Increase omeprazole to twice a day Extracted from: Title:N[facility] PRE Author:Bruce Peterson DO Date:02/03/24 Plan [employer] (ASA) physical status classification: Class II. Anesthetic Preoperative Plan: Anesthesia General. [facility] 08-14-2024 Hospital Discharge instructions Patient Education 02/03/2024 10:38:33 Esophageal Dilatation Esophageal Dilatation Esophageal dilatation, also called esophageal dilation, is a procedure to widen or open a blocked or narrowed part of the esophagus. The esophagus is the part of the body that moves food and liquid from the mouth to the stomach. You may need this procedure if: You have a buildup of scar tissue in your esophagus that makes it difficult, painful, or impossibleto swallow. This can be caused by gastroesophageal reflux disease (GERD). You have cancer of the esophagus. There is a problem with how food moves through your esophagus. In some cases, you may need this procedure repeated at a later time to dilate the esophagus gradually. Tell a health care provider about: Any allergies you have. All medicines you are taking, including vitamins, herbs, eye drops, creams, and mpbo-jhn-szhhsbn medicines. Any problems you or family members have had with anesthetic medicines. Any blood disorders you have. Any surgeries you have had. Any medical conditions you have. Any antibiotic medicines you are required to take before dental procedures. Whether you are or may be . What are the risks? Generally, this is a safe procedure. However, problems may occur, including: Bleeding due to a tear in the lining of the esophagus. A hole, or perforation, in the esophagus. What happens before the procedure? Ask your health care provider about: ?Changing or stopping your regular medicines. This is especially important if you are taking diabetes medicines or blood thinners. ?Taking medicines such as aspirin and ibuprofen. These medicines can thin your blood. Do not take these medicines unless your health care provider tells you to take them. ?Taking mcyl-apd-vfcigzf medicines, vitamins, herbs, and supplements. Follow instructions from your health care provider about eating or drinking restrictions. Plan to have a responsible adult take you home from the hospital or clinic. Plan to have a responsible adult care for you for the time you are told after you leave the hospital or clinic. This is important. What happens during the procedure? You may be given a medicine to help you relax (sedative). A numbing medicine may be sprayed into the back of your throat, or you may gargle the medicine. Your health care provider may perform the dilatation using various surgical instruments, such as: ?Simple dilators. This instrument is carefully placed in the esophagus to stretch it. ?Guided wire bougies. This involves using an endoscope to insert a wire into the esophagus. A dilator is passed over this wire to enlarge the esophagus. Then the wire is removed. ?Balloon dilators. An endoscope with a small balloon is inserted into the esophagus. The balloon isinflated to stretch the esophagus and open it up. The procedure may vary among health care providers and hospitals. What can I expect after the procedure? Your blood pressure, heart rate, breathing rate, and blood oxygen level will be monitored until youleave the hospital or clinic. Your throat may feel slightly sore and numb. This will get better over time. You will not be allowed to eat or drink until your throat is no longer numb. When you are able to drink, urinate, and sit on the edge of the bed without nausea or dizziness, you may be able to return home. Follow these instructions at home: Take orsc-jem-gpixbgz and prescription medicines only as told by your health care provider. If you were given a sedative during the procedure, it can affect you for several hours. Do not drive or operate machinery until your health care provider says that it is safe. Plan to have a responsible adult care for you for the time you are told. This is important. Follow instructions from your health care provider about any eating or drinking restrictions. Do not use any products that contain nicotine or tobacco, such as cigarettes, e- cigarettes, and chewing tobacco. If you need help quitting, ask your health care provider. Keep all follow-up visits. This is important. Contact a health care provider if: You have a fever. You have pain that is not relieved by medicine. Get help right away if: You have chest pain. You have trouble breathing. You have trouble swallowing. You vomit blood. You have black, tarry, or bloody stools. These symptoms may represent a serious problem that is an emergency. Do not wait to see if the symptoms will go away. Get medical help right away. Call your local emergency services (911 in the [place] Do not drive yourself to the hospital. Summary Esophageal dilatation, also called esophageal dilation, is a procedure to widen or open a blocked or narrowed part of the esophagus. Plan to have a responsible adult take you home from the hospital or clinic. For this procedure, a numbing medicine may be sprayed into the back of your throat, or you may gargle the medicine. Do not drive or operate machinery until your health care provider says that it is safe. This information is not intended to replace advice given to you by your health care provider. Make sure you discuss any questions you have with your health care provider. Document Revised: 10/24/2020 Document Reviewed: 10/24/2020 [employer] Patient Education [address] Follow Up Care 12/21/2023 14:19:00 With:Amaris VALDEZ, WILBERTO Jean-Baptiste, [facility] Address: [address] [place] [address], [address] [place] [address]- [phone] When: Unknown Comments:Office will call Date and Time of Follow-up Appt. [facility] 08-14-2024 NoteProgress Note-Physician Patient: JAQUELIN NORWOOD Age: 83 years Sex: Female : 1940 Associated Diagnoses: None Author: Tiago Peterson DO Postoperative Information Postoperative disposition: Postoperative disposition: To PACU. Anesthetic utilized: General. Health Status Allergies: Allergic Reactions (Selected) Severity Not Documented Benztropine Mesylate- Unknown and hallucinations. Naproxen- Edema and unknown. Vioxx- Unknown. Current medications: (Selected) Inpatient Medications Ordered Lactated Ringers IV Sabrina 1000 mL 1,000 mL: 1,000 mL, IV, 100 mL/hr, Routine, Start date 01/11/24 8:41:00 EDT, 10 hour(s), Total volume (mL): 1,000, 87.3 kg, 2, m2 Lactated Ringers IV Sabrina 1000 mL 1,000 mL: 1,000 mL, IV, 100 mL/hr, Routine, Start date 02/03/24 9:21:00 EDT, 10 hour(s), Total volume (mL): 1,000 Sodium Chloride 0.9% IV Sabrina 1000 mL 1,000 mL: 1,000 mL, IV, 20 mL/hr, Routine, Start date 01/11/24 8:50:00 EDT, 50 hour(s), Total volume (mL): 1,000, 87.3 kg, 2, m2 Sodium Chloride 0.9% IV Sabrina 1000 mL 1,000 mL: 1,000 mL, IV, 20 mL/hr, Routine, Start date 02/03/24 6:59:00 EDT, 50 hour(s), Total volume (mL): 1,000 Documented Medications Documented Albuterol (Eqv-ProAir HFA) 90 mcg/inh inhalation aerosol: puff(s), Inhalation, q6hr, Refill(s) 0, Shortness of breath or wheezing Linzess 290 mcg oral capsule: mcg cap(s), Oral, Daily, Refills(s) 0, Constipation albuterol 0.083% Inh Sabrina 3 mL: 2.5 mg, 3 mL, Inhalation, q6hr Shortness of breath or wheezing, Refill(s) 12, Q6H and PRN aspirin 81 mg Oral EC Tab: 81 mg = 1 tab(s), Oral, Daily, Refills(s) 0, Blood Thinner atorvastatin 40 mg Tab: mg tab(s), Oral, Daily, Refills(s) 0, High cholesterol buPROPion 150 mg ER Tab: mg tab(s), Oral, BID, Refills(s) 0, Anxiety carvedilol 12.5 mg Tab: mg tab(s), Oral, BID, Refills(s) 0, High blood pressure duloxetine 60 mg Cap-DR: Oral, BID, Refills(s) 0, Depression famotidine 20 mg Tab: mg tab(s), Oral, BID, Refills(s) 0, Control of stomach acid furosemide 40 mg Tab: 40 mg = 1 tab(s), Oral, Daily, Refills(s) 0, diuretic/water pill levothyroxine 100 mcg (0.1 mg) Tab: mcg tab(s), Oral, Daily, Refills(s) 0, Thyroid lisinopril 5 mg Tab: mg tab(s), Oral, Daily, Refills(s) 0, High blood pressure nitroglycerin 0.4 mg sublingual Tab: 0.4 mg = 1 tab(s), SubLingual, q5min, PRN for chest pain, # 100 tab(s), Refills(s) 0 omeprazole 40 mg Cap-DR: mg cap(s), Oral, Daily, Refills(s) 0, Control of stomach acid, Home Medications (14) Active Albuterol (Eqv-ProAir HFA) 90 mcg/inh inhalation aerosol , Inhalation, q6hr albuterol 0.083% Inh Sabrina 3 mL 2.5 mg = 3 mL, PRN, Inhalation, q6hr aspirin 81 mg Oral EC Tab 81 mg = 1 tab(s), Oral, Daily atorvastatin 40 mg Tab , Oral, Daily buPROPion 150 mg ER Tab , Oral, BID carvedilol 12.5 mg Tab , Oral, BID duloxetine 60 mg Cap-DR , Oral, BID famotidine 20 mg Tab , Oral, BID furosemide 40 mg Tab 40 mg = 1 tab(s), Oral, Daily levothyroxine 100 mcg (0.1 mg) Tab , Oral, Daily Linzess 290 mcg oral capsule , Oral, Daily lisinopril 5 mg Tab , Oral, Daily nitroglycerin 0.4 mg sublingual Tab 0.4 mg = 1 tab(s), PRN, SubLingual, q5min omeprazole 40 mg Cap-DR , Oral, Daily Problem list: All Problems Abnormal CT of the abdomen / SNOMED CT 6248259732 / Confirmed Cholelithiasis / SNOMED CT 395004134 / Confirmed Esophageal dysmotility / SNOMED CT 930947637 / Confirmed Esophageal dysphagia / SNOMED CT 99235407 / Confirmed History of gastric surgery / SNOMED CT 8621221323 / Confirmed Physical Examination Vital Signs 02/03/2024 10:35 EDT Heart Rate Monitored 78 bpm Respiratory Rate Monitored 22 br/min Systolic Blood Pressure 129 mmHg Diastolic Blood Pressure 64 mmHg Mean Arterial Pressure, Cuff 86 mmHg SpO2 100 % 02/03/2024 10:30 EDT Temperature Temporal Artery 36.5 DegC Heart Rate Monitored 79 bpm Respiratory Rate Monitored 16 br/min Systolic Blood Pressure 127 mmHg Diastolic Blood Pressure 74 mmHg Blood Pressure Location Left arm Mean Arterial Pressure, Cuff 92 mmHg SpO2 98 % 02/03/2024 10:25 EDT Heart Rate Monitored 84 bpm bpm Respiratory Rate 10 br/min br/min Systolic Blood Pressure 164 mmHg mmHg Diastolic Blood Pressure 71 mmHg mmHg SpO2 98 % % 02/03/2024 10:20 EDT Heart Rate Monitored 83 bpm bpm Respiratory Rate 10 br/min br/min Systolic Blood Pressure 185 mmHg mmHg Diastolic Blood Pressure 87 mmHg mmHg SpO2 100 % % 02/03/2024 10:15 EDT Heart Rate Monitored 69 bpm bpm Respiratory Rate 10 br/min br/min Systolic Blood Pressure 117 mmHg mmHg Diastolic Blood Pressure 74 mmHg mmHg SpO2 100 % % 02/03/2024 10:12 EDT Systolic Blood Pressure 111 mmHg mmHg Diastolic Blood Pressure 73 mmHg mmHg 02/03/2024 10:10 EDT Respiratory Rate 10 br/min br/min 02/03/2024 8:55 EDT Temperature Temporal Artery 36.5 DegC Heart Rate Monitored 74 bpm Respiratory Rate Monitored 13 br/min Systolic Blood Pressure 112 mmHg Diastolic Blood Pres (more content not included)...[facility] Comment on above:Result Comment: Electronically Signed By: Tiago Peterson DO\.br\Date and Time Signed: 02/03/24 10:46 [id number] NotePatient Education - Text Gastroenterology Esophageal Dilatation Esophageal dilatation, also called esophageal dilation, is a procedure to widen or open a blocked or narrowed part of the esophagus. The esophagus is the part of the body that moves food and liquid from the mouth to the stomach. You may need this procedure if: ? You have a buildup of scar tissue in your esophagus that makes it difficult, painful, or impossible to swallow. This can be caused by gastroesophageal reflux disease (GERD). ? You have cancer of the esophagus. ? There is a problem with how food moves through your esophagus. In some cases, you may need this procedure repeated at a later time to dilate the esophagus gradually. Tell a health care provider about: ? Any allergies you have. ? All medicines you are taking, including vitamins, herbs, eye drops, creams, and jinu-wac-fqvnpsc medicines. ? Any problems you or family members have had with anesthetic medicines. ? Any blood disorders you have. ? Any surgeries you have had. ? Any medical conditions you have. ? Any antibiotic medicines you are required to take before dental procedures. ? Whether you are or may be . What are the risks? Generally, this is a safe procedure. However, problems may occur, including: ? Bleeding due to a tear in the lining of the esophagus. ? A hole, or perforation, in the esophagus. What happens before the procedure? ? Ask your health care provider about: ? Changing or stopping your regular medicines. This is especially important if you are taking diabetes medicines or blood thinners. ? Taking medicines such as aspirin and ibuprofen. These medicines can thin your blood. Do not take these medicines unless your health care provider tells you to take them. ? Taking ugpl-ebm-pgtbusr medicines, vitamins, herbs, and supplements. ? Follow instructions from your health care provider about eating or drinking restrictions. ? Plan to have a responsible adult take you home from the hospital or clinic. ? Plan to have a responsible adult care for you for the time you are told after you leave the hospital or clinic. This is important. What happens during the procedure? ? You may be given a medicine to help you relax (sedative). ? A numbing medicine may be sprayed into the back of your throat, or you may gargle the medicine. ? Your health care provider may perform the dilatation using various surgical instruments, such as: ? Simple dilators. This instrument is carefully placed in the esophagus to stretch it. ? Guided wire bougies. This involves using an endoscope to insert a wire into the esophagus. A dilator is passed over this wire to enlarge the esophagus. Then the wire is removed. ? Balloon dilators. An endoscope with a small balloon is inserted into the esophagus. The balloon is inflated to stretch the esophagus and open it up. The procedure may vary among health care providers and hospitals. What can I expect after the procedure? ? Your blood pressure, heart rate, breathing rate, and blood oxygen level will be monitored until you leave the hospital or clinic. ? Your throat may feel slightly sore and numb. This will get better over time. ? You will not be allowed to eat or drink until your throat is no longer numb. ? When you are able to drink, urinate, and sit on the edge of the bed without nausea or dizziness, you may be able to return home. Follow these instructions at home: ? Take hxam-iqs-gdyadou and prescription medicines only as told by your health care provider. ? If you were given a sedative during the procedure, it can affect you for several hours. Do not drive or operate machinery until your health care provider says that it is safe. ? Plan to have a responsible adult care for you for the time you are told. This is important. ? Follow instructions from your health care provider about any eating or drinking restrictions. ? Do not use any products that contain nicotine or tobacco, such as cigarettes, e-cigarettes, and chewing tobacco. If you need help quitting, ask your health care provider. ? Keep all follow-up visits. This is important. Contact a health care provider if: ? You have a fever. ? You have pain that is not relieved by medicine. Get help right away if: ? You have chest pain. ? You have trouble breathing. ? You have trouble swallowing. ? You vomit blood. ? You have black, tarry, or bloody stools. These symptoms may represent a serious problem that is an emergency. Do not wait to see if the symptoms will go away. Get medical help right away. Call your local emergency services (911 in the [place] Do not drive yourself to the hospital. Summary ? Esophageal dilatation, also called esophageal dilation, is a procedure to widen or open a blockedor narrowed part of the esophagus. ? Plan to have a responsible adult take you home from the hospital or clinic. ? For this procedure, a nu (more content not included)...[facility] NoteProgress Note-Physician Patient: JAQUELIN NORWOOD Age: 83 years Sex: Female : 1940 Associated Diagnoses: None Author: Tiago Peterson DO Preoperative Information Anesthesia history: Patient history: None. Family history+: None. Anesthesia results Informed consent: Signed by patient. Including risks, benefits, and alternatives related to the: Anesthetic plan, Postoperative pain management plan. Re-evaluation prior to induction: Tiago Peterson DO. Health Status Allergies: Allergic Reactions (Selected) Severity Not Documented Benztropine Mesylate- Unknown and hallucinations. Naproxen- Edema and unknown. Vioxx- Unknown., Allergies (5) Active Severity Reaction Benztropine Mesylate Unknown naproxen Unknown Vioxx Unknown Benztropine Mesylate Hallucinations naproxen Edema Current medications: (Selected) Inpatient Medications Ordered Lactated Ringers IV Sabrina 1000 mL 1,000 mL: 1,000 mL, IV, 100 mL/hr, Routine, Start date 01/11/24 8:41:00 EDT, 10 hour(s), Total volume (mL): 1,000, 87.3 kg, 2, m2 Lactated Ringers IV Sabrina 1000 mL 1,000 mL: 1,000 mL, IV, 100 mL/hr, Routine, Start date 02/03/24 9:21:00 EDT, 10 hour(s), Total volume (mL): 1,000 Sodium Chloride 0.9% IV Sabrina 1000 mL 1,000 mL: 1,000 mL, IV, 20 mL/hr, Routine, Start date 01/11/24 8:50:00 EDT, 50 hour(s), Total volume (mL): 1,000, 87.3 kg, 2, m2 Sodium Chloride 0.9% IV Sabrina 1000 mL 1,000 mL: 1,000 mL, IV, 20 mL/hr, Routine, Start date 02/03/24 6:59:00 EDT, 50 hour(s), Total volume (mL): 1,000 Documented Medications Documented Albuterol (Eqv-ProAir HFA) 90 mcg/inh inhalation aerosol: puff(s), Inhalation, q6hr, Refill(s) 0, Shortness of breath or wheezing Linzess 290 mcg oral capsule: mcg cap(s), Oral, Daily, Refills(s) 0, Constipation albuterol 0.083% Inh Sabrina 3 mL: 2.5 mg, 3 mL, Inhalation, q6hr Shortness of breath or wheezing, Refill(s) 12, Q6H and PRN aspirin 81 mg Oral EC Tab: 81 mg = 1 tab(s), Oral, Daily, Refills(s) 0, Blood Thinner atorvastatin 40 mg Tab: mg tab(s), Oral, Daily, Refills(s) 0, High cholesterol buPROPion 150 mg ER Tab: mg tab(s), Oral, BID, Refills(s) 0, Anxiety carvedilol 12.5 mg Tab: mg tab(s), Oral, BID, Refills(s) 0, High blood pressure duloxetine 60 mg Cap-DR: Oral, BID, Refills(s) 0, Depression famotidine 20 mg Tab: mg tab(s), Oral, BID, Refills(s) 0, Control of stomach acid furosemide 40 mg Tab: 40 mg = 1 tab(s), Oral, Daily, Refills(s) 0, diuretic/water pill levothyroxine 100 mcg (0.1 mg) Tab: mcg tab(s), Oral, Daily, Refills(s) 0, Thyroid lisinopril 5 mg Tab: mg tab(s), Oral, Daily, Refills(s) 0, High blood pressure nitroglycerin 0.4 mg sublingual Tab: 0.4 mg = 1 tab(s), SubLingual, q5min, PRN for chest pain, # 100 tab(s), Refills(s) 0 omeprazole 40 mg Cap-DR: mg cap(s), Oral, Daily, Refills(s) 0, Control of stomach acid, Home Medications (14) Active Albuterol (Eqv-ProAir HFA) 90 mcg/inh inhalation aerosol , Inhalation, q6hr albuterol 0.083% Inh Sabrina 3 mL 2.5 mg = 3 mL, PRN, Inhalation, q6hr aspirin 81 mg Oral EC Tab 81 mg = 1 tab(s), Oral, Daily atorvastatin 40 mg Tab , Oral, Daily buPROPion 150 mg ER Tab , Oral, BID carvedilol 12.5 mg Tab , Oral, BID duloxetine 60 mg Cap-DR , Oral, BID famotidine 20 mg Tab , Oral, BID furosemide 40 mg Tab 40 mg = 1 tab(s), Oral, Daily levothyroxine 100 mcg (0.1 mg) Tab , Oral, Daily Linzess 290 mcg oral capsule , Oral, Daily lisinopril 5 mg Tab , Oral, Daily nitroglycerin 0.4 mg sublingual Tab 0.4 mg = 1 tab(s), PRN, SubLingual, q5min omeprazole 40 mg Cap-DR , Oral, Daily , Medications (4) Active Scheduled: (0) Continuous: (4) Lactated Ringers 1,000 mL 1,000 mL, IV, 100 mL/hr Lactated Ringers 1,000 mL 1,000 mL, IV, 100 mL/hr Sodium Chloride 0.9% 1,000 mL 1,000 mL, IV, 20 mL/hr Sodium Chloride 0.9% 1,000 mL 1,000 mL, IV, 20 mL/hr PRN: (0) Problem list: All Problems Abnormal CT of the abdomen / SNOMED CT 6481363759 / Confirmed Cholelithiasis / SNOMED CT 616314238 / Confirmed Esophageal dysmotility / SNOMED CT 613147198 / Confirmed Esophageal dysphagia / SNOMED CT 94641946 / Confirmed History of gastric surgery / SNOMED CT 8444109064 / Confirmed, Active Problems (5) Abnormal CT of the abdomen Cholelithiasis Esophageal dysmotility Esophageal dysphagia History of gastric surgery Histories Past Medical History: No active or resolved past medical history items have been selected or recorded. Family History: Heart disease Mother Diabetes mellitus type 2 Mother Cancer Father Mother Procedure history: No active procedure history items have been selected or recorded. Social History Social & Psychosocial Habits Tobacco 12/21/2023 Tobacco Use: Former smoker, quit more . Physical Examination Vital Signs 02/03/2024 8:55 EDT Temperature Temporal Artery 36.5 DegC Heart Rate Monitored 74 bpm Respiratory Rate Monitored 13 br/min Systolic Blood P (more content not included)...[facility] Comment on above:Result Comment: Electronically Signed By: Tiago Peterson DO.br\Date and Time Signed: 02/03/24 09:23 [id number] Telephone encounter Note* Telephone Encounter - PHILIP Magallanes - 07/27/2023 8:00 AM EST [id number] Miscellaneous Notes* Telephone Encounter - PHILIP Magallanes - 07/27/2023 8:00 AM EST sent [id number] History of Present illness Narrative* Patient is here for follow-up continue management [...] recall if any cardiac work-up was done. * ASSESSMENT: * 1. History of nonischemic cardiomyopathy and heart failure remotely improved. Continues to complainof mild shortness of breath * 2. History of bilateral carotid disease underwent carotid angiogram did not require intervention * 3. Mild shortness of breath due to obesity and deconditioning. * 4. Previous report of edema has resolved. * 5. Hypertension, controlled. * 6. Obesity with about 10 pound weight loss. * 7. Hyperlipidemia, on treatment. An * 8. Patient reports possible cardiopulmonary resuscitation while in the hospital for pneumonia last year detail is lacking * RECOMMENDATION: * 1. The patient was advised to remain on current therapy. * 2. The patient counseled regarding losing weight, exercise, and riskfactor adjustment. * 3. 1 try to retrieve the result of her hospital record * 4. we will repeat her echocardiogram and see her back in [address] [facility] Work Phone: [phone] History of Present illness Narrative* Patient is here for follow-up continue management [...] recall if any cardiac work-up was done. * ASSESSMENT: * 1. History of nonischemic cardiomyopathy and heart failure remotely improved. Continues to complainof mild shortness of breath * 2. History of bilateral carotid disease underwent carotid angiogram did not require intervention * 3. Mild shortness of breath due to obesity and deconditioning. * 4. Previous report of edema has resolved. * 5. Hypertension, controlled. * 6. Obesity with about 10 pound weight loss. * 7. Hyperlipidemia, on treatment. An * 8. Patient reports possible cardiopulmonary resuscitation while in the hospital for pneumonia last year detail is lacking * RECOMMENDATION: * 1. The patient was advised to remain on current therapy. * 2. The patient counseled regarding losing weight, exercise, and riskfactor adjustment. * 3. 1 try to retrieve the result of her hospital record * 4. we will repeat her echocardiogram and see her back in 3 to 4 months [facility] [address] DO Work Phone: Evaluation + Plan note Future Appointments Appointment Date:01/11/2024 09:30:00 AM Scheduled Provider: Location:[facility] Appointment Type:Surgery FT [facility] Evaluation note* Diagnosis Essential hypertension (CMS/HCC) Unspecified essential hypertension [facility] Diagnosis Degenerative lumbar spinal stenosis Spinal stenosis of lumbar region Depression with anxiety Dysthymic disorder [facility]* Diagnosis Depression with anxiety Dysthymic disorder Degenerative lumbar spinal stenosis Spinal stenosis of lumbar region [facility]* Diagnosis Sore throat Acute pharyngitis Type 2 diabetes mellitus with diabetic neuropathy, without long-term current use of insulin (CMS/HCC)- Primary Pain due to onychomycosis of toenails of both feet Venous insufficiency Unspecified venous (peripheral) insufficiency [facility]* Diagnosis Type 2 diabetes mellitus with diabetic neuropathy, without long-term current use of insulin ([facility])- Primary Pain due to onychomycosis of toenails of both feet Venous insufficiency Unspecified venous (peripheral) insufficiency [facility]* Diagnosis Type 2 diabetes mellitus with diabetic neuropathy, without long-term current use of insulin ([facility])- Primary Degenerative lumbar spinal stenosis Spinal stenosis of lumbar region Allergic rhinitis, unspecified Depression with anxiety Dysthymic disorder Chronic combined systolic and diastolic congestive heart failure ([facility]) Panlobular emphysema ([facility]) Other emphysema Symptomatic cholelithiasis [facility]* Diagnosis Panlobular emphysema ([facility])- Primary Other emphysema Chronic combined systolic and diastolic congestive heart failure ([facility]) Symptomatic cholelithiasis documented [facility]* Diagnosis Degenerative lumbar spinal stenosis Spinal stenosis of lumbar region Depression with anxiety Dysthymic disorder [facility]* Diagnosis Venous insufficiency- Primary Unspecified venous (peripheral) insufficiency Thickened nail Type 2 diabetes mellitus with diabetic neuropathy, without long-term current use of insulin ([facility]) Onychomycosis Dermatophytosis of nail Toe pain, bilateral [facility]* Diagnosis Depression with anxiety Dysthymic disorder Degenerative lumbar spinal stenosis Spinal stenosis of lumbar region documented [facility]* Diagnosis Panlobular emphysema ([facility]/HCC)- Primary Other emphysema COPD with acute exacerbation ([facility]) Acute cystitis without hematuria Symptomatic cholelithiasis Chronic combined systolic and diastolic congestive heart failure ([facility]) Depression with anxiety Dysthymic disorder [facility]* Diagnosis Degenerative lumbar spinal stenosis Spinal stenosis of lumbar region Depression with anxiety Dysthymic disorder Type 2 diabetes mellitus with diabetic neuropathy, without long-term current use of insulin ([facility])- Primary Pain due to onychomycosis of toenails of both feet Venous insufficiency Unspecified venous (peripheral) insufficiency documented [facility]* Diagnosis Nontoxic single thyroid nodule ([facility])- Primary Nontoxic uninodular goiter documented in this [facility]* Diagnosis Type 2 diabetes mellitus with diabetic neuropathy, without long-term current use of insulin ([facility])- Primary Pain due to onychomycosis of toenails of both feet Venous insufficiency Unspecified venous (peripheral) insufficiency documented [facility]* Diagnosis Panlobular emphysema ([facility]/HCC)- Primary Other emphysema Moderate recurrent major depression ([facility]) Major depressive disorder, recurrent episode, moderate Depression with anxiety Dysthymic disorder Exudative age-related macular degeneration, unspecified eye, stage unspecified ([facility]) Chronic combined systolic (congestive) and diastolic (congestive) heart failure ([facility]) documented [facility]* Diagnosis Hypersomnolence- Primary Hypersomnia, unspecified Panlobular emphysema ([facility]) Other emphysema documented in [facility]* Diagnosis Nausea Nausea alone [facility]* Diagnosis Degenerative lumbar spinal stenosis Spinal stenosis of lumbar region Depression with anxiety Dysthymic disorder [facility] Narrative* Patient is here for follow- up continue management for history of nonischemic cardiomyopathy improved medical therapy, carotid disease, shortness of breath, hypertension and obesity. Since last time Isaw her however she admits to limited exercise tolerance due to her obesity and COPD. She denies any complaint of chest pain, palpitation, lightheadedness, dizziness or syncope. Her recent echocardiogram showed normal LV systolic function. Remote heart cath showed moderate one- vessel disease affecting the proximal circumflex. No chest pain was reported * ASSESSMENT: * 1. History of nonischemic cardiomyopathy and heart failure remotely improved. Continues to complainof mild shortness of breath this appears to be due to COPD. Her recent echo showed normal LV systolic function * 2. History of bilateral carotid disease underwent carotid angiogram did not require intervention * 3. Mild shortness of breath due to obesity and deconditioning. * 4. Previous report of edema has resolved. * 5. Hypertension, controlled. * 6. Obesity * 7. Hyperlipidemia, on treatment. * 8. Patient reports possible cardiopulmonary resuscitation while in the hospital for pneumonia last year the record which was scratchy but no clear mention of cardiopulmonary resuscitation was noted * 9. COPD * RECOMMENDATION: * 1. The patient was advised to remain on current therapy. * 2. The patient counseled regarding losing weight, exercise, and riskfactor adjustment. * 3. I reviewed her recent echocardiogram and hospital record * 4. I encouraged her to lose weight and exercise * 5. We will see her back in 9 months and follow-up in * 6. We will repeat her carotid Doppler -[facility] 250 DO Work Phone: History of Present illness Narrative* Patient is here for follow-up continue management for history of nonischemic cardiomyopathy improved medical therapy, carotid disease, shortness of breath, hypertension and obesity. Since last time Isaw her however she admits to limited exercise tolerance due to her obesity and COPD. She denies any complaint of chest pain, palpitation, lightheadedness, dizziness or syncope. Her recent echocardiogram showed normal LV systolic function. Remote heart cath showed moderate one- vessel disease affecting the proximal circumflex. No chest pain was reported * ASSESSMENT: * 1. History of nonischemic cardiomyopathy and heart failure remotely improved. Continues to complainof mild shortness of breath this appears to be due to COPD. Her recent echo showed normal LV systolic function * 2. History of bilateral carotid disease underwent carotid angiogram did not require intervention * 3. Mild shortness of breath due to obesity and deconditioning. * 4. Previous report of edema has resolved. * 5. Hypertension, controlled. * 6. Obesity * 7. Hyperlipidemia, on treatment. * 8. Patient reports possible cardiopulmonary resuscitation while in the hospital for pneumonia last year the record which was scratchy but no clear mention of cardiopulmonary resuscitation was noted * 9. COPD * RECOMMENDATION: * 1. The patient was advised to remain on current therapy. * 2. The patient counseled regarding losing weight, exercise, and riskfactor adjustment. * 3. I reviewed her recent echocardiogram and hospital record * 4. I encouraged her to lose weight and exercise * 5. We will see her back in 9 months and follow-up in * 6. We will repeat her carotid Doppler [facility] Work Phone: Hospital course Narrative No data available for this section [facility] Hospital Discharge instructions No data available for this section [facility] Progress note No data available for this section [facility] Summary Purpose Family History Unknown Family Member [...] Records Found Chief Complaint * overdue. * JAQUELIN NORWOOD is being seen for an annual follow-up of. * overdue. * JAQUELIN NORWOOD is being seen for an annual follow-up of. JAQUELIN NORWOOD is being seen for a 4 month follow-up of.JAQUELIN NORWOOD is being seen for a 4 month follow-up of. Additional Source Comments INFORMATION SOURCE (unrecogn ized section and content) DATE CREATED AUTHOR 02/16/2019 [facility] DATE CREATED AUTHOR AUTHOR'S ORGANIZ ATION 02/27/2022 [employer] DATE CREATED AUTHOR AUTHOR'S ORGANIZ ATION 04/15/2022 [facility] DATE CREATED AUTHOR AUTHOR'S ORGANIZ ATION 10/25/2022 [facility] DATE CREATED AUTHOR AUTHOR'S ORGANIZ ATION 02/06/2024 [facility] DATE CREATED AUTHOR AUTHOR'S ORGANIZ ATION 02/07/2024 [facility] DATE CREATED AUTHOR AUTHOR'S ORGANIZ ATION 03/04/2024 [facility] DATE CREATED AUTHOR AUTHOR'S ORGANIZ ATION 03/09/2024 [facility] DATE CREATED AUTHOR AUTHOR'S ORGANIZ ATION 03/13/2024 [facility] DATE CREATED AUTHOR AUTHOR'S ORGANIZ ATION 03/14/2024 [facility] DATE CREATED AUTHOR AUTHOR'S ORGANIZ ATION 07/31/2024 [facility] Reason for Visit (unrecogniz ed section and content) Reason Comments Med Refill Reason Onset Date Comments Med Refill 08/03/2023 Reason Onset Date Comments Med Refill 03/30/2024 Reason Comments DM Foot Care Dm Nails Reason Comments Follow-up Controlled/pain med Diabetes Hypertension Med Refill Laratidine,xanax,hyd rocodone--[facility] Reason Comments Results PFTEcho has not been done yet--pending ins approval Emphysema Med Refill Zofran --[facility] Reason Onset Date Comments Med Refill 05/31/2024 Reason Comments DM Foot Care DM Nails Specialty Diagnoses / Procedures Referred By Contac t Referred To Contact Podiatry Diagnoses Thickened nail Type 2 diabetes mellitus with diabetic neuropathy, without long-term current use of insulin ([facility]) Procedures LA OFFICE/OUTPATIENT NEW HIGH MDM 60 MINUTES Salud Mason PA [address] [place] [address] Alessandro Levi DPM [address] [facility] [address] [place] [address] Referral ID Status Reason Start Date Expiration Date V isits Requested Visits Authorized [id number] Closed Specialty Services Required 01/28/2024 07/26/2024 1 1 Reason Onset Date Comments Med Refill 03/02/2024 Reason Comments Congestive Heart Failure Results Echo results Depression Reason Onset Date Comments Med Refill 07/03/2024 Reason Comments Thyroid Nodule 1 year follow up ult rasound [facility] Reason Comments DM Foot Care Dm nail care Reason Comments AD (Adjustment Disorder) Reason Comments Panlobular emphysema Consultation Specialty Diagnoses / Procedures Referred By Contact Referred To Contact Pulmonary Disease / Pulmonology Diagnoses Panlobular emphysema ([facility]) Procedures LA OFFICE/OUTPATIENT [facility] Yossi Landers MD [address] [facility] [address] [place] [address] Phone: tel: fax: Kristen William, DO [address] [place] [address] Phone: tel: fax: Referral ID Status Reason Start Date Expiration Date V isits Requested Visits Authorized [id number] Closed Specialty Services Required 05/16/2024 11/12/2024 1 1 Reason Onset Date Comments Med Refill 08/06/2024 Care Teams (unrecognized sec tion and content) [employer] Relationship Specialty Start Date End Date Yossi Landers MD [address] [place] [address] PCP - General Internal Medicine 11/03/22 Yossi Landers MD [address] [place] [address] PCP - [employer] 11/20/22 [employer] Pe Teacher Relationship Specialty Start Date End Date Yossi Landers MD [address] [place] [address] PCP - General Internal Medicine 11/03/22 Yossi Landers MD [address] [place] [address] PCP - [employer] 11/20/22 [employer] Pe Teacher Relationship Specialty Start Date End Date Yossi Landers MD [address] [place] [address] PCP - General Internal Medicine 11/03/22 Yossi Landers MD [address] [place] [address] PCP - [employer] 11/20/22 [employer] Pe Teacher Relationship Specialty Start Date End Date Yossi Landers MD [address] [place] [address] PCP - General Internal Medicine 11/03/22 Yossi Landers MD [address] [place] [address] PCP - [employer] 11/20/22 [employer] Teacher Relationship Specialty Start Date End Date Yossi Landers MD [address] [place] [address] PCP - General Internal Medicine 11/03/22 Yossi Landers MD [address] [place] [address] PCP - [employer] 11/20/22 [employer] Teacher Relationship Specialty Start Date End Date Yossi Landers MD [address] [place] [address] PCP - General Internal Medicine 11/03/22 Yossi Landers MD [address] [place] [address] PCP - [employer] 11/20/22 [employer] Teacher Relationship Specialty Start Date End Date Yossi Landers MD [address] [place] [address] PCP - General Internal Medicine 11/03/22 Yossi Landers MD [address] [place] [address] PCP - [employer] 11/20/22 [employer] Teacher Relationship Specialty Start Date End Date Yossi Landers MD [address] [place] [address] PCP - General Internal Medicine 11/03/22 Yossi Landers MD [address] [place] [address] PCP - [employer] 11/20/22 [employer] Teacher Relationship Specialty Start Date End Date Yossi Landers MD [address] [place] [address] PCP - General Internal Medicine 11/03/22 Yossi Landers MD [address] [place] [address] PCP - [employer] 11/20/22 [employer] Teacher Relationship Specialty Start Date End Date Yossi Landers MD [address] [place] [address] PCP - General Internal Medicine 11/03/22 Yossi Landers MD [address] [place] [address] PCP - [employer] 11/20/22 [employer] Teacher Relationship Specialty Start Date End Date Yossi Landers MD [address] [place] [address] PCP - General Internal Medicine 11/03/22 Yossi Landers MD [address] [place] [address] PCP - [employer] 11/20/22 [employer] Teacher Relationship Specialty Start Date End Date Yossi Landers MD [address] [place] [address] PCP - General Internal Medicine 11/03/22 Yossi Landers MD [address] [place] [address] PCP - [employer] 11/20/22 [employer] Pe Teacher Relationship Specialty Start Date End Date Yossi Landers MD [address] [place] [address] PCP - General Internal Medicine 11/03/22 Yossi Landers MD [address] [place] [address] PCP - [employer] 11/20/22 [employer] Teacher Relationship Specialty Start Date End Date Yossi Landers MD [address] [place] [address] PCP - General Internal Medicine 11/03/22 Yossi Landers MD [address] [place] [address] PCP - [employer] 11/20/22 [employer] Teacher Relationship Specialty Start Date End Date Yossi Landers MD [address] [place] [address] PCP - General Internal Medicine 11/03/22 Yossi Landers MD [address] [place] [address] PCP - [employer] 11/20/22 [employer] Teacher Relationship Specialty Start Date End Date Yossi Landers MD [address] [place] [address] PCP - General Internal Medicine 11/03/22 Yossi Landers MD [address] [place] [address] PCP - [employer] 11/20/22 Seble Mejia, CIPRIANO Clinical Advocate Family Medicine 07/29/24 [employer] Pe Teacher Relationship Specialty Start Date End Date Yossi Landers MD [address] [place] [address] PCP - General Internal Medicine 11/03/22 Yossi Landers MD [address] [place] [address] PCP - [employer] 11/20/22 Seble Mjeia, RN Clinical Advocate Family [facility] 07/29/24 FOR RECORDS PERTAINING TO PATIENTS WHO ARE [...] BE BASED ON THE PRIMARY CLINICAL RECORDS. [employer] provides no warranty or guarantee of the accuracy or completeness of information in this document.
--- NOTE | 2024-08-13 14:40 | ECG_ITS ---
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
--- NOTE | 2024-08-13 14:40 | CT_ITS ---
The [address] [address] Patient Name: ELGIN NORWOOD MRN: [id number] date: 1940 Sex: F Assigned Patient Location: ED.MAIN Current Patient Location: Accession/Order Number: [id number] Exam Date: 08/13/2024 17:18 Report Date: 08/13/2024 17:23 At the request of: STEFAN RAMOS Procedure: CT abdomen pelvis w con CT abdomen pelvis w con 08/13/2024 4:50 PM SIGNS AND SYMPTOMS: ^LUQ abd pain, black stools \S.br\ \S.br\^Y \S.br\ TECHNIQUE: Multidetector ct axial images of the abdomen and pelvis were obtained with IV contrast. Multiplanar reformats were performed and reviewed to further define anatomy and possible pathology. CT was performed with one or more of the following dose reduction techniques: Automated exposure control, adjustment of the mA and/or kV according to patient size, or use of iterative reconstruction technique. COMPARISON: 11/27/2023 FINDINGS: Lower Chest: There is a moderate right and small left-sided pleural effusion. This is new compared to the prior exam. Atherosclerotic changes are noted in the thoracic aorta and coronary arteries. ABDOMEN: Liver: Within normal limits. Bile Ducts: Normal caliber. Gallbladder: Dependently layering stones and debris are noted in the gallbladder lumen. Pancreas: Within normal limits. Spleen: Within normal limits. Adrenals: Within normal limits. Kidneys: Within normal limits. Pelvis: Reproductive Organs: No pelvic masses. Ureters: Within normal limits. Bladder: Within normal limits. Bowel: There is a large amount stool throughout the colon suggesting constipation. There is no evidence of bowel obstruction. Mesenteric Lymph Nodes: No enlarged mesenteric lymph nodes. Peritoneum: No ascites or free air, no fluid collection. Vessels: Atherosclerotic changes are noted in the abdominal aorta and its branches. A stent is present in the left external iliac artery. Retroperitoneum: Within normal limits. Abdominal Wall: Postoperative changes suggest previous midline laparotomy or hernia repair. Bones: Degenerative changes are noted in the thoracolumbar spine, hips, and sacroiliac joints. There is a levoconvex curvature at the thoracolumbar junction. CT/CT abdomen pelvis w con IMPRESSION: There is a large amount stool throughout the colon suggesting constipation. Dependently layering stones and debris are noted in the gallbladder lumen. There is a moderate right and small left-sided pleural effusion. This is new compared to the prior exam. No bowel obstruction or obstructive uropathy. Impression dictated by: Bret Nogueira M.D.08/13/2024 5:23 PM Dictation Location: [place] [address] Electronically authenticated by: [id number] Y Date: 08/13/2024 17:23
--- NOTE | 2024-08-13 14:43 | XR_ITS ---
The [place] [id number] Patient Name: ELGIN NORWOOD MRN: [id number] date: 1940 Sex: F Assigned Patient Location: ED.MAIN Current Patient Location: ER Accession/Order Number: [id number] Exam Date: 08/13/2024 17:23 Report Date: 08/13/2024 17:24 At the request of: STEFAN RAMOS Procedure: XR chest 1V XR chest 1V 08/13/2024 4:57 PM SIGNS AND SYMPTOMS: ^shortness of breath ^Y PROTOCOL: Frontal radiograph of the chest COMPARISON: 11/27/2023 FINDINGS: The trachea is midline. The heart and mediastinal structures are within normal limits. The lung parenchyma is clear. The bony thorax is intact. XR/XR chest 1V IMPRESSION: No acute cardiopulmonary pathology. Impression dictated by: Bret Nogueira M.D.08/13/2024 5:24 PM Dictation Location: [employer] Electronically authenticated by: [id number] Y Date: 08/13/2024 17:24
[2024-08-13 15:19] LABS: Basophils Percent Auto 0.5 % (0.2-2.0); Eosinophils Absolute Auto 0.2 10^3/uL (0.0-0.7); Eosinophils Percent Auto 2.3 % (0.9-7.0); Hematocrit 34.9 % (36.0-48.0); Immature Granulocytes Abs Auto 0.02 10^3/uL (0.00-0.03); Immature Granulocytes Pct Auto 0.2 % (0.0-0.5); Lymphocytes Absolute Auto 2.1 10^3/uL (1.2-3.8); Lymphocytes Percent Auto 25.2 % (20.5-60.0); Mean Corpuscular HGB Conc 31.5 g/dL (29.9-35.2); Mean Corpuscular Hemoglobin 31.2 pg (26.7-34.0); Mean Corpuscular Volume 98.9 fL (81.0-99.0); Mean Platelet Volume 10.2 fL (9.5-13.5); Monocytes Absolute Auto 0.8 10^3/uL (0.3-0.8); Monocytes Percent Auto 9.7 % (1.7-12.0); Neutrophils Absolute Auto 5.1 10^3/uL (1.4-6.5); Neutrophils Percent Auto 62.1 % (43.0-75.0); Platelet Count 155 10^3/uL (150-450); Red Blood Count 3.53 10^6/uL (4.20-5.40); Red Cell Distribution Width 14.2 % (11.0-15.0); White Blood Count 8.2 10^3/uL (4.0-11.0)
[2024-08-13 15:51] LABS: Lactate/Lactic Acid 0.8 mmol/L (0.4-2.0)
--- NOTE | 2024-08-13 15:51 | ED.GENADUL1 ---
HPI HPI - General Adult General Chief complaint: Shortness of Breath/Dyspnea Stated complaint: L LUNG PAIN, BLACK STOOLS, SHORT OF BREATH Time Seen by Provider: 08/13/24 14:24 Source: family Mode of arrival: Wheelchair Limitations: no limitations History of Present Illness HPI narrative: cc = left sided rib pain, black stools Pt complains of two days of black stool with some left upper abdominal pain/pain under the left lower anterior ribs. She also admits to some difficulty breathing without cough - but she admits that she has COPD. No nausea, vomiting or diarrhea. No fever or chills. She does not take iron supplements or blood thinners. No chest pain. Related Data Home Medications ?Medication ?Instructions ?Recorded ?Confirmed alprazolam 0.25 mg tablet 0.25 mg PO BID PRN anxiety 08/02/23 08/13/24 aspirin 81 mg chewable tablet 81 mg PO DAILY 08/02/23 08/13/24 (Dalton Chewable Low Dose Aspirin) atorvastatin 40 mg tablet 40 mg PO DAILY 08/02/23 08/13/24 carvedilol 12.5 mg tablet 12.5 mg PO Q12H 08/02/23 08/13/24 duloxetine 60 mg capsule,delayed 60 mg PO DAILY 08/02/23 08/13/24 release furosemide 40 mg tablet 40 mg PO DAILY 08/02/23 08/13/24 gabapentin 100 mg capsule 200 mg PO Q12H 08/02/23 08/13/24 loratadine 10 mg tablet 10 mg PO Q24H 08/02/23 08/13/24 hydrocodone 7.5 mg-acetaminophen 1 tab PO Q6H PRN severe pain 08/03/23 08/13/24 325 mg tablet (scale score 7-10) levothyroxine 100 mcg tablet 100 mcg PO .ACB 08/03/23 08/13/24 omeprazole 40 mg capsule,delayed 40 mg PO .ACB 08/03/23 12/28/23 release famotidine 20 mg tablet 20 mg PO DAILY 12/28/23 12/28/23 brexpiprazole 1 mg tablet (Rexulti) 1 mg PO DAILY 08/13/24 08/13/24 fluticasone fur. 100 mcg-umeclid 1 inh inhalation Q24H 02/22/25 02/22/25 62.5 mcg-vilant 25 mcg inhalat.powder (Trelegy Ellipta) lisinopril 5 mg tablet 5 mg PO DAILY 08/13/24 08/13/24 Previous Rx's ?Medication ?Instructions ?Recorded prednisone 20 mg tablet 40 mg (2 x 20 mg) PO DAILY 5 days 12/28/23 #10 tabs mupirocin 2 % topical ointment 1 applic topical TID 14 days #15 01/11/24 grams tramadol 50 mg tablet 50 mg PO Q8H PRN pain #14 tabs 01/11/24 polyethylene glycol 3350 17 17 g PO DAILY 4 days #68 grams 08/13/24 gram/dose oral powder (Miralax) Allergies Allergy/AdvReac Type Severity Reaction Status Date / Time rofecoxib (From Vioxx) Allergy Severe Unknown Verified 08/13/24 14:24 naproxen (From Aleve) Allergy Intermediate Unknown Verified 08/13/24 14:24 Opioid HPI Opioid Management Most Recent Opioid Data: Last Pain Scale 0 08/03/23 11:20 08/03/23 Last Pain Intensity 0 08/03/23 11:20 08/03/23 [facility] Medical History (Updated 08/13/24 @ 17:29 by Elmer Greene) Hypothyroidism ?E03.9 - Hypothyroidism, unspecified (ICD-10) HLD (hyperlipidemia) ?E78.5 - Hyperlipidemia, unspecified (ICD-10) HTN (hypertension) ?I10 - Essential (primary) hypertension (ICD-10) Insufficient home care support ?Z74.2 - Need for assistance at home and no other household member able to render care (ICD-10) Muscular deconditioning ?R29.898 - Other symptoms and signs involving the musculoskeletal system (ICD-10) CHF (congestive heart failure) ?I50.9 - Heart failure, unspecified (ICD-10) COPD (chronic obstructive pulmonary disease) ?J44.9 - Chronic obstructive pulmonary disease, unspecified (ICD-10) Surgical History (Updated 08/02/23 @ 15:00 by Fatou Moralez) H/O hysterectomy for benign disease ?Z90.710 - Acquired absence of both cervix and uterus (ICD-10) Previous back surgery ?Z98.890 - Other specified postprocedural states (ICD-10) H/O hernia repair ?Z98.890 - Other specified postprocedural states (ICD-10) ?Z87.19 - Personal history of other diseases of the digestive system (ICD-10) Social History (Updated 08/03/23 @ 11:44 by Shaikh Adonay MD) Within the past year, how often did you have a drink containing alcohol: never Score interpretation: A score less than 3 is consistent with normal alcohol consumption. 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 afebrile General: Well-appearing and in no apparent distress. Skin: Warm, dry, no pallor noted. No rash to left anterolateral chest or abdomen. Head: Normocephalic, atraumatic. Eye: Pupils are equal, round and EOMI. No scleral icterus. Cardiovascular: Regular Rate and Rhythm without murmur, gallop or rub. Respiratory: No accessory muscle use or respiratory distress. Lungs are clear to auscultation, no wheezing, rales or rhonchi Back: No CVA tenderness Musculoskeletal: normal ROM, no calf or popliteal tenderness, chronic BL lower extremity edema/swelling = unchanged per pt GI: Abdomen is soft, non-distended. Normal bowel sounds. No masses appreciated. LUQ tenderness to palpation. No rebound, guarding, or rigidity noted. Neurological: A&O x4. No cranial nerve dysfunction observed. No truncal ataxia. Moves all extremities. Sensation intact. Psychiatric: Cooperative and interactive. Normal mood and affect. Constitutional Vital Signs, click to edit/add: Last Vital Signs Temp 98.7 F 08/13/24 14:24 Pulse 75 08/13/24 17:30 Resp 21 H 08/13/24 17:30 BP 130/68 08/13/24 16:31 Pulse Ox 96 08/13/24 17:30 O2 Del Method Room Air 08/13/24 14:24 Course Vital Signs Vital signs: Vital Signs Temperature 98.7 F 08/13/24 14:24 Pulse Rate 66 08/13/24 14:24 Respiratory Rate 20 08/13/24 14:24 Blood Pressure 137/56 08/13/24 14:24 Pulse Oximetry 96 08/13/24 14:24 Oxygen Delivery Method Room Air 08/13/24 14:24 Temperature 98.7 F 08/13/24 14:24 Pulse Rate 75 08/13/24 17:30 Respiratory Rate 21 H 08/13/24 17:30 Blood Pressure 130/68 08/13/24 16:31 Pulse Oximetry 96 08/13/24 17:30 Oxygen Delivery Method Room Air 08/13/24 14:24 Medical Decision Making MDM Narrative Medical decision making narrative: Patient was placed on color television console monitor and EKG obtained. Blood drawn and sent for evaluation. Urine was ordered to be obtained and sent for testing but the patient missed the hat. CBC is fairly unremarkable, normal white blood cell count, hemoglobin mildly decreased at 11. Metabolic profile is notable for normal electrolytes, mildly elevated BUN and creatinine are 19 and 1.03. Troponin and BNP were negative. CT abdomen pelvis was obtained with IV contrast after was confirmed the patient's renal function was adequate to undergo CT scanning with contrast. Chest x-ray was also obtained. CXR read as negative by radiologist. CT abd/pelvis, per radiologist, reveals moderate stool retention consistent with constipation. Pt and family informed of results and the patient was discharged home with prescription for MiraLax. Lab Data Lab results reviewed: Yes I reviewed the patient's lab results Labs: Lab Results 08/13/24 08/13/24 Range/Units 15:12 17:00 WBC 8.2 (4.0-11.0) 10^3/uL RBC 3.53 L (4.20-5.40) 10^6/uL Hgb 11.0 L (12.0-16.0) g/dL Hct 34.9 L (36.0-48.0) % MCV 98.9 (81.0-99.0) fL MCH 31.2 (26.7-34.0) pg MCHC 31.5 (29.9-35.2) g/dL RDW 14.2 (11.0-15.0) % Plt Count 155 (150-450) 10^3/uL MPV 10.2 (9.5-13.5) fL Neut % (Auto) 62.1 (43.0-75.0) % Lymph % (Auto) 25.2 (20.5-60.0) % [place] % (Auto) 9.7 (1.7-12.0) % Eos % (Auto) 2.3 (0.9-7.0) % Baso % (Auto) 0.5 (0.2-2.0) % Neut # (Auto) 5.1 (1.4-6.5) 10^3/uL Lymph # (Auto) 2.1 (1.2-3.8) 10^3/uL [place] # (Auto) 0.8 (0.3-0.8) 10^3/uL Eos # (Auto) 0.2 (0.0-0.7) 10^3/uL Baso # (Auto) 0.0 (0.0-0.1) 10^3/uL Abs Immat Gran (auto) 0.02 (0.00-0.03) 10^3/uL Imm/Tot Granulo (auto) 0.2 (0.0-0.5) % Sodium 137 (136-145) mmol/L Potassium 4.2 (3.5-5.1) mmol/L Chloride 102 (98-107) mmol/L Carbon Dioxide 30.0 (21.0-32.0) mmol/L Anion Gap 9.2 BUN 19.0 H (7.0-18.0) mg/dL Creatinine 1.03 H (0.55-1.02) mg/dL Est GFR ( Amer) >60 (>=60 mL/min/1.73m^2) Est GFR (Non-Af Amer) 51 L (>=60 mL/min/1.73m^2) BUN/Creatinine Ratio 18.4 Glucose 91 (74-106) mg/dL Lactate 0.8 (0.4-2.0) mmol/L Calcium 8.7 (8.5-10.1) mg/dL Total Bilirubin 0.3 (0.2-1.0) mg/dL AST 16 (15-37) U/L ALT 16 (14-59) U/L Alkaline Phosphatase 80 (46-116) U/L Troponin I High Sens 8.2 (4.0-51.3) pg/mL NT-Pro-B Natriuret Pep 496.0 (<=1800.0) pg/mL Total Protein 6.0 L (6.4-8.2) g/dL Albumin 3.0 L (3.4-5.0) g/dL Globulin 3.0 g/dL Albumin/Globulin Ratio 1.0 Urine Color Lt. yellow (YELLOW) Urine Clarity Clear (CLEAR) Urine pH 7.0 (5.0-9.0) Ur Specific [place] <=1.005 A (1.005-1.025) Urine Protein Negative (NEG/TRACE) mg/dL Urine Glucose (UA) Negative (NEGATIVE) mg/dL Urine Ketones Negative (NEGATIVE) mg/dL Urine Occult Blood Negative (NEGATIVE) Urine Nitrite Negative (NEGATIVE) Urine Bilirubin Negative (NEGATIVE) Urine Urobilinogen 0.2 (0.2-1.0) EU/dL Ur Leukocyte Esterase Trace A (NEGATIVE) Urine RBC 0-2 (0-2) #/HPF Urine WBC 2-5 A (NONE SEEN) #/HPF Ur Squamous Epith Cells Rare (NONE/RARE) #/LPF Urine Crystals None seen (None Seen) #/HPF Urine Bacteria Trace A (NONE SEEN) #/HPF Urine Casts None seen (NONE SEEN) #/LPF Urine Mucus None seen (NONE SEEN) Ur Culture Indicated? Yes-[facility] [place] Imaging Data CXR, CT abd/pelvis: Radiologist's impression: ITS Impressions Abdomen/Pelvis CT 08/13/24 14:40 IMPRESSION: There is a large amount stool throughout the colon suggesting constipation. Dependently layering stones and debris are noted in the gallbladder lumen. There is a moderate right and small left-sided pleural effusion. This is new compared to the prior exam. No bowel obstruction or obstructive uropathy. Impression dictated by: Bret Nogueira M.D.08/13/2024 5:23 PM Dictation Location: [employer] Electronically authenticated by: [id number] Y Date: 08/13/2024 17:23 Chest X-Ray 08/13/24 14:43 IMPRESSION: No acute cardiopulmonary pathology. Impression dictated by: Bret Nogueira M.D.08/13/2024 5:24 PM Dictation Location: [employer] Electronically authenticated by: [id number] Y Date: 08/13/2024 17:24 ECG Data Attestation: I personally reviewed and interpreted this ECG as follows: Interpretation: EKG interpretation: Emergency Department physician interpretation. Normal sinus rhythm at 61bpm. Normal axis, normal intervals and no ST segment elevation or depression. Discharge Plan Discharge Chief Complaint: Shortness of Breath/Dyspnea Clinical Impression: Constipation, COPD exacerbation Patient Disposition: Home, Self-Care Time of Disposition Decision: 17:28 Prescriptions / Home Meds: New polyethylene glycol 3350 [Miralax] 17 gram/dose powder 17 g PO DAILY 4 Days Qty: 68 0RF No Action alprazolam 0.25 mg tablet 0.25 mg PO BID PRN (Reason: anxiety) duloxetine 60 mg capsule,delayed release(DR/EC) 60 mg PO DAILY loratadine 10 mg tablet 10 mg PO Q24H aspirin [Dalton Chewable Aspirin] 81 mg tablet,chewable 81 mg PO DAILY carvedilol 12.5 mg tablet 12.5 mg PO Q12H gabapentin 100 mg capsule 200 mg PO Q12H atorvastatin 40 mg tablet 40 mg PO DAILY furosemide 40 mg tablet 40 mg PO DAILY hydrocodone-acetaminophen 7.5-325 mg tablet 1 tab PO Q6H PRN (Reason: severe pain (scale score 7-10)) levothyroxine 100 mcg tablet 100 mcg PO .ACB omeprazole 40 mg capsule,delayed release(DR/EC) 40 mg PO .ACB famotidine 20 mg tablet 20 mg PO DAILY prednisone 20 mg tablet 40 mg PO DAILY 5 Days Qty: 10 0RF tramadol 50 mg tablet 50 mg PO Q8H PRN (Reason: pain) Qty: 14 0RF mupirocin 2 % ointment 1 applic topical TID 14 Days Qty: 15 0RF Rexulti 1 mg tablet 1 mg PO DAILY lisinopril 5 mg tablet 5 mg PO DAILY Trelegy Ellipta 100-62.5-25 mcg blister with device 1 inh INHALATION Q24H Print Language: Malagasy Instructions: Constipation (ED), COPD (Chronic Obstructive Pulmonary Disease) (ED) Referrals: MK ORTEGA [Primary Care Provider] - 1 week Discharge Date/Time: 08/13/24 17:45
[2024-08-13 16:05] LABS: Alanine Aminotransferase 16 U/L (14-59); Alkaline Phosphatase 80 U/L (46-116); Anion Gap 9.2; Aspartate Amino Transferase 16 U/L (15-37); BUN Creatinine Ratio 18.4; Bilirubin Total 0.3 mg/dL (0.2-1.0); Calcium 8.7 mg/dL (8.5-10.1); Chloride 102 mmol/L (98-107); Estimated GFR (African America >60 (>=60 mL/min/1.73m^2); Estimated GFR (Non-African Ame 51 (>=60 mL/min/1.73m^2); Glucose 91 mg/dL (74-106); Potassium 4.2 mmol/L (3.5-5.1); Sodium 137 mmol/L (136-145)
[2024-08-13 16:12] LABS: Troponin I High Sensitivity 8.2 pg/mL (4.0-51.3)
[2024-08-13 17:22] LABS: Bilirubin Urine NEGATIVE (NEGATIVE); Blood Urine NEGATIVE (NEGATIVE); Clarity Urine CLEAR (CLEAR); Color Urine LT. YELLOW (YELLOW); Glucose Urine UA NEGATIVE (NEGATIVE); Ketones Urine NEGATIVE (NEGATIVE); Leukocyte Esterase Urine TRACE (NEGATIVE); Nitrite Urine NEGATIVE (NEGATIVE); Protein Urine NEGATIVE (NEG/TRACE); Specific Gravity Urine <=1.005 (1.005-1.025); Urobilinogen Urine 0.2 EU/dL (0.2-1.0)
[2024-08-13 17:29] LABS: Bacteria Urine TRACE #/HPF (NONE SEEN); Cast Seen? NONE SEEN #/LPF (NONE SEEN); Crystals Seen? None Seen #/HPF (None Seen); Mucus Urine NONE SEEN (NONE SEEN); RBC Urine 0-2 #/HPF (0-2); Squamous Epithelial Cell Urine RARE #/LPF (NONE/RARE)
[2024-08-13 17:30] LABS: Urine Culture Indicated YES-FRMC
== END 2024-08-13 17:45 | disposition home or self-care (01) ==
PROVIDERS: Emergency Provider Emergency Medicine; PCP Internal Medicine
DX: K59.00 Constipation, unspecified (principal); J44.1 Chronic obstructive pulmonary disease with (acute) exacerbation; R10.12 Left upper quadrant pain; R10.32 Left lower quadrant pain; R06.00 Dyspnea, unspecified
CPT/HCPCS: 36415; 71045; 74177; 80053; 81001; 83605; 83880; 84484; 85025; 87086; 93005; 99285; Q9967

== ENCOUNTER 2024-09-20 11:36 | Emergency (ER) | payer MEDICARE, SELFPAY ==
[2024-09-20] VITALS (9 sets, daily range): BP systolic 142–156; BP diastolic 73–83; PULSE 66–68; TEMP 36.7; O2SAT 95–97; BMI 33.3
--- NOTE | 2024-09-20 11:57 | ECG_ITS ---
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 Measurements Intervals [place] Rate: 65 P: 70 SD: 192 QRS: 40 QRSD: 100 T: 73 QT: 390 QTc: 402 Interpretive Statements 1100 Sinus rhythm 9110 normal ECG Compared to ECG 08/13/2024 14:52:56 No significant changes Electronically Signed On 09-20-2024 20:16:45 EDT by EMILY CHING M.D.
--- NOTE | 2024-09-20 11:57 | ED_ITS ---
HPI HPI - General Adult General Chief complaint: Nausea/Vomiting/Diarrhea Stated complaint: OTHER Time Seen by Provider: 09/20/24 11:54 Source: patient Mode of arrival: ambulance History of Present Illness HPI narrative: 84-year-old female presents for nausea. It began last night. She has had no vomiting or diarrhea. She complains of no abdominal pain or chest pain. She started some new medication a few days ago, 1 appears to be a diuretic. Related Data Home Medications ?Medication ?Instructions ?Recorded ?Confirmed alprazolam 0.25 mg tablet 0.25 mg PO BID PRN anxiety 08/02/23 08/13/24 aspirin 81 mg chewable tablet 81 mg PO DAILY 08/02/23 09/20/24 (Dalton Chewable Low Dose Aspirin) atorvastatin 40 mg tablet 40 mg PO DAILY 08/02/23 09/20/24 carvedilol 12.5 mg tablet 12.5 mg PO Q12H 08/02/23 09/20/24 duloxetine 60 mg capsule,delayed 60 mg PO DAILY 08/02/23 09/20/24 release gabapentin 100 mg capsule 200 mg PO Q12H 08/02/23 09/20/24 loratadine 10 mg tablet 10 mg PO Q24H 08/02/23 09/20/24 hydrocodone 7.5 mg-acetaminophen 1 tab PO Q6H PRN severe pain 08/03/23 09/20/24 325 mg tablet (scale score 7-10) levothyroxine 100 mcg tablet 100 mcg PO .ACB 08/03/23 09/20/24 lisinopril 5 mg tablet 5 mg PO DAILY 08/13/24 09/20/24 metolazone 2.5 mg tablet 2.5 mg PO QDAY 09/20/24 09/20/24 torsemide 20 mg tablet 20 mg PO QDAY 09/20/24 09/20/24 vit C 250 mg-vit E 90 mg-zinc 40 1 tab PO BID 09/20/24 09/20/24 mg-copper 1 [id number] capsule (PreserVision AREDS-2) Previous Rx's ?Medication ?Instructions ?Recorded ondansetron 4 mg disintegrating 4 mg PO Q6H PRN nausea and 09/20/24 tablet vomiting #15 tabs Allergies Allergy/AdvReac Type Severity Reaction Status Date / Time rofecoxib (From Vioxx) Allergy Severe Unknown Verified 08/13/24 14:24 naproxen (From Aleve) Allergy Intermediate Unknown Verified 08/13/24 14:24 Opioid HPI Opioid Management Most Recent Opioid Data: Last Pain Scale 0 08/03/23 11:20 08/03/23 Last Pain Intensity 0 08/03/23 11:20 08/03/23 Review of Systems ROS Narrative A ten point review of systems is negative except as noted above. [facility] Medical History (Updated 09/20/24 @ 15:11 by Tommie Block MD) Hypothyroidism ?E03.9 - Hypothyroidism, unspecified (ICD-10) HLD (hyperlipidemia) ?E78.5 - Hyperlipidemia, unspecified (ICD-10) HTN (hypertension) ?I10 - Essential (primary) hypertension (ICD-10) Insufficient home care support ?Z74.2 - Need for assistance at home and no other household member able to render care (ICD-10) Muscular deconditioning ?R29.898 - Other symptoms and signs involving the musculoskeletal system (ICD-10) CHF (congestive heart failure) ?I50.9 - Heart failure, unspecified (ICD-10) COPD (chronic obstructive pulmonary disease) ?J44.9 - Chronic obstructive pulmonary disease, unspecified (ICD-10) Surgical History (Updated 08/02/23 @ 15:00 by Fatou Moralez) H/O hysterectomy for benign disease ?Z90.710 - Acquired absence of both cervix and uterus (ICD-10) Previous back surgery ?Z98.890 - Other specified postprocedural states (ICD-10) H/O hernia repair ?Z98.890 - Other specified postprocedural states (ICD-10) ?Z87.19 - Personal history of other diseases of the digestive system (ICD-10) Social History (Updated 08/03/23 @ 11:44 by Shaikh Adonay MD) Within the past year, how often did you have a drink containing alcohol: never Score interpretation: A score less than 3 is consistent with normal alcohol consumption. 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 General: The patient appears in no apparent distress. Patient is resting comfortably on cart. Skin: Warm, dry, no pallor noted. There is no rash noted. Head: Normocephalic, atraumatic Eye: Normal conjunctiva, no drainage Ears, Nose, Mouth, and Throat: oral mucosa is moist. Nares patent. Cardiovascular: Regular Rate and Rhythm Respiratory: Patient is in no distress, no accessory muscle use, lungs are clear to auscultation, no wheezing, rales or rhonchi Back: non-tender GI: Soft and nontender Musculoskeletal: No joint swelling Neurological: Awake and alert Psychiatric: Cooperative Constitutional Vital Signs, click to edit/add: Last Vital Signs Temp 98.1 F 09/20/24 11:39 Pulse 68 09/20/24 12:50 Resp 19 09/20/24 12:50 BP 142/83 H 09/20/24 14:31 Pulse Ox 95 09/20/24 14:31 O2 Del Method Room Air 09/20/24 11:39 Course Vital Signs Vital signs: Vital Signs Temperature 98.1 F 09/20/24 11:39 Pulse Rate 67 09/20/24 11:39 Respiratory Rate 18 09/20/24 11:39 Blood Pressure 144/73 H 09/20/24 11:39 Pulse Oximetry 97 09/20/24 11:39 Oxygen Delivery Method Room Air 09/20/24 11:39 Temperature 98.1 F 09/20/24 11:39 Pulse Rate 68 09/20/24 12:50 Respiratory Rate 19 09/20/24 12:50 Blood Pressure 142/83 H 09/20/24 14:31 Pulse Oximetry 95 09/20/24 14:31 Oxygen Delivery Method Room Air 09/20/24 11:39 Medical Decision Making MDM Narrative Medical decision making narrative: Her laboratory analysis is essentially normal. Her white blood cell count is 9.6 UA is negative and BUN and creatinine are 23 and 1.0. She feels improved after being given some fluids and IV Zofran and she is tolerating p.o. liquids. She is discharged home with a prescription for Zofran. Treatment diagnosis and follow-up were discussed with the patient and her family. Differential Diagnosis Differential Diagnosis: Gastroenteritis, dehydration Lab Data Lab results reviewed: Yes I reviewed the patient's lab results Labs: Lab Results 09/20/24 09/20/24 Range/Units 12:10 12:27 WBC 9.6 (4.0-11.0) 10^3/uL RBC 4.16 L (4.20-5.40) 10^6/uL Hgb 12.9 (12.0-16.0) g/dL Hct 38.2 (36.0-48.0) % MCV 91.8 (81.0-99.0) fL MCH 31.0 (26.7-34.0) pg MCHC 33.8 (29.9-35.2) g/dL RDW 12.8 (11.0-15.0) % Plt Count 157 (150-450) 10^3/uL MPV 10.3 (9.5-13.5) fL Neut % (Auto) 78.8 H (43.0-75.0) % Lymph % (Auto) 10.2 L (20.5-60.0) % [place] % (Auto) 9.8 (1.7-12.0) % Eos % (Auto) 0.5 L (0.9-7.0) % Baso % (Auto) 0.4 (0.2-2.0) % Neut # (Auto) 7.6 H (1.4-6.5) 10^3/uL Lymph # (Auto) 1.0 L (1.2-3.8) 10^3/uL [place] # (Auto) 0.9 H (0.3-0.8) 10^3/uL Eos # (Auto) 0.1 (0.0-0.7) 10^3/uL Baso # (Auto) 0.0 (0.0-0.1) 10^3/uL Abs Immat Gran (auto) 0.03 (0.00-0.03) 10^3/uL Imm/Tot Granulo (auto) 0.3 (0.0-0.5) % Sodium 129 L (136-145) mmol/L Potassium 3.2 L (3.5-5.1) mmol/L Chloride 87 L (98-107) mmol/L Carbon Dioxide 35.0 H (21.0-32.0) mmol/L Anion Gap 10.2 BUN 23.0 H (7.0-18.0) mg/dL Creatinine 1.05 H (0.55-1.02) mg/dL Est GFR ( Amer) >60 (>=60 mL/min/1.73m^2) Est GFR (Non-Af Amer) 50 L (>=60 mL/min/1.73m^2) BUN/Creatinine Ratio 21.9 Glucose 126 H (74-106) mg/dL Calcium 9.7 (8.5-10.1) mg/dL Urine Color Lt. yellow (YELLOW) Urine Clarity Clear (CLEAR) Urine pH 6.0 (5.0-9.0) Ur Specific [place] <=1.005 A (1.005-1.025) Urine Protein Negative (NEG/TRACE) mg/dL Urine Glucose (UA) Negative (NEGATIVE) mg/dL Urine Ketones Negative (NEGATIVE) mg/dL Urine Occult Blood Negative (NEGATIVE) Urine Nitrite Negative (NEGATIVE) Urine Bilirubin Negative (NEGATIVE) Urine Urobilinogen 1.0 (0.2-1.0) EU/dL Ur Leukocyte Esterase Trace A (NEGATIVE) Urine RBC 0-2 (0-2) #/HPF Urine WBC 0-2 A (NONE SEEN) #/HPF Ur Squamous Epith Cells Few A (NONE/RARE) #/LPF Urine Crystals None seen (None Seen) #/HPF Urine Bacteria Trace A (NONE SEEN) #/HPF Urine Casts None seen (NONE SEEN) #/LPF Urine Mucus None seen (NONE SEEN) ECG Data Attestation: I personally reviewed and interpreted this ECG as follows: (EKG on my interpretation shows normal sinus rhythm with a rate of 65 and no acute change) Discharge Plan Discharge Chief Complaint: Nausea/Vomiting/Diarrhea Clinical Impression: Nausea Patient Disposition: Home, Self-Care Time of Disposition Decision: 15:11 Condition: Good Mode of Transportation: Private Vehicle Prescriptions / Home Meds: New ondansetron 4 mg tablet,disintegrating 4 mg PO Q6H PRN (Reason: nausea and vomiting) Qty: 15 0RF No Action alprazolam 0.25 mg tablet 0.25 mg PO BID PRN (Reason: anxiety) duloxetine 60 mg capsule,delayed release(DR/EC) 60 mg PO DAILY loratadine 10 mg tablet 10 mg PO Q24H aspirin [Dalton Chewable Aspirin] 81 mg tablet,chewable 81 mg PO DAILY carvedilol 12.5 mg tablet 12.5 mg PO Q12H gabapentin 100 mg capsule 200 mg PO Q12H atorvastatin 40 mg tablet 40 mg PO DAILY hydrocodone-acetaminophen 7.5-325 mg tablet 1 tab PO Q6H PRN (Reason: severe pain (scale score 7-10)) levothyroxine 100 mcg tablet 100 mcg PO .ACB lisinopril 5 mg tablet 5 mg PO DAILY metolazone 2.5 mg tablet 2.5 mg PO QDAY Rx Instructions: X 7 DAYS. PER NOTES: PATIENT STARTED 3-4 DAYS AGO torsemide 20 mg tablet 20 mg PO QDAY PreserVision AREDS-2 250-90-40-1 mg capsule 1 tab PO BID Print Language: Cambodian Instructions: Acute Nausea and Vomiting (ED) Referrals: MK ORTEGA [Primary Care Provider] - 1 week
[2024-09-20] MEDS: ONDANSETRON PF 4 MG/2 ML VIAL IV (12:31)
[2024-09-20 12:34] LABS: Basophils Percent Auto 0.4 % (0.2-2.0); Eosinophils Absolute Auto 0.1 10^3/uL (0.0-0.7); Eosinophils Percent Auto 0.5 % (0.9-7.0); Hematocrit 38.2 % (36.0-48.0); Hemoglobin 12.9 g/dL (12.0-16.0); Immature Granulocytes Abs Auto 0.03 10^3/uL (0.00-0.03); Immature Granulocytes Pct Auto 0.3 % (0.0-0.5); Lymphocytes Percent Auto 10.2 % (20.5-60.0); Mean Corpuscular HGB Conc 33.8 g/dL (29.9-35.2); Mean Corpuscular Volume 91.8 fL (81.0-99.0); Mean Platelet Volume 10.3 fL (9.5-13.5); Monocytes Absolute Auto 0.9 10^3/uL (0.3-0.8); Monocytes Percent Auto 9.8 % (1.7-12.0); Neutrophils Absolute Auto 7.6 10^3/uL (1.4-6.5); Neutrophils Percent Auto 78.8 % (43.0-75.0); Platelet Count 157 10^3/uL (150-450); Red Blood Count 4.16 10^6/uL (4.20-5.40); Red Cell Distribution Width 12.8 % (11.0-15.0); White Blood Count 9.6 10^3/uL (4.0-11.0)
[2024-09-20 12:38] LABS: Bilirubin Urine NEGATIVE (NEGATIVE); Blood Urine NEGATIVE (NEGATIVE); Clarity Urine CLEAR (CLEAR); Color Urine LT. YELLOW (YELLOW); Glucose Urine UA NEGATIVE (NEGATIVE); Ketones Urine NEGATIVE (NEGATIVE); Leukocyte Esterase Urine TRACE (NEGATIVE); Nitrite Urine NEGATIVE (NEGATIVE); Protein Urine NEGATIVE (NEG/TRACE); Specific Gravity Urine <=1.005 (1.005-1.025)
[2024-09-20 12:50] LABS: Bacteria Urine TRACE #/HPF (NONE SEEN); Cast Seen? NONE SEEN #/LPF (NONE SEEN); Crystals Seen? None Seen #/HPF (None Seen); Mucus Urine NONE SEEN (NONE SEEN); RBC Urine 0-2 #/HPF (0-2); Squamous Epithelial Cell Urine FEW #/LPF (NONE/RARE); WBC Urine 0-2 #/HPF (NONE SEEN)
[2024-09-20 12:57] LABS: Anion Gap 10.2; BUN Creatinine Ratio 21.9; Calcium 9.7 mg/dL (8.5-10.1); Chloride 87 mmol/L (98-107); Estimated GFR (African America >60 (>=60 mL/min/1.73m^2); Estimated GFR (Non-African Ame 50 (>=60 mL/min/1.73m^2); Glucose 126 mg/dL (74-106); Potassium 3.2 mmol/L (3.5-5.1); Sodium 129 mmol/L (136-145)
== END 2024-09-20 15:33 | disposition home or self-care (01) ==
PROVIDERS: Emergency Provider Emergency Medicine; PCP Internal Medicine
DX: R11.0 Nausea (principal); Z79.899 Other long term (current) drug therapy; Z90.710 Acquired absence of both cervix and uterus
CPT/HCPCS: 36415; 80048; 81001; 85025; 93005; 96374; 99285; J2405

== ENCOUNTER 2024-09-22 08:55 | Inpatient (IN) | payer MEDICARE, SELFPAY ==
[2024-09-22] VITALS (21 sets, daily range): BP systolic 110–195; BP diastolic 58–134; PULSE 63–91; TEMP 36.4–36.6; O2SAT 93–99; BMI 26.6; BMI 13.5
--- NOTE | 2024-09-22 09:39 | ECG_ITS ---
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 Measurements Intervals [place] Rate: 63 P: 73 MN: 196 QRS: 43 QRSD: 106 T: 70 QT: 416 QTc: 424 Interpretive Statements 1100 Sinus rhythm 9110 normal ECG Compared to ECG 09/20/2024 12:01:37 No significant changes Electronically Signed On 09-23-2024 15:07:46 EDT by EMILY CHING M.D.
[2024-09-22 09:47] LABS: Basophils Absolute Auto 0.1 10^3/uL (0.0-0.1); Basophils Percent Auto 0.7 % (0.2-2.0); Eosinophils Absolute Auto 0.2 10^3/uL (0.0-0.7); Eosinophils Percent Auto 2.5 % (0.9-7.0); Hematocrit 38.3 % (36.0-48.0); Immature Granulocytes Abs Auto 0.03 10^3/uL (0.00-0.03); Immature Granulocytes Pct Auto 0.4 % (0.0-0.5); Lymphocytes Absolute Auto 1.4 10^3/uL (1.2-3.8); Lymphocytes Percent Auto 18.2 % (20.5-60.0); Mean Corpuscular HGB Conc 33.9 g/dL (29.9-35.2); Mean Corpuscular Hemoglobin 30.4 pg (26.7-34.0); Mean Corpuscular Volume 89.7 fL (81.0-99.0); Mean Platelet Volume 10.6 fL (9.5-13.5); Monocytes Percent Auto 12.7 % (1.7-12.0); Neutrophils Absolute Auto 4.9 10^3/uL (1.4-6.5); Neutrophils Percent Auto 65.5 % (43.0-75.0); Platelet Count 167 10^3/uL (150-450); Red Blood Count 4.27 10^6/uL (4.20-5.40); Red Cell Distribution Width 12.6 % (11.0-15.0); White Blood Count 7.5 10^3/uL (4.0-11.0)
[2024-09-22 10:01] LABS: Alanine Aminotransferase 28 U/L (14-59); Albumin Globulin Ratio 1.1; Albumin Level 3.6 g/dL (3.4-5.0); Alkaline Phosphatase 109 U/L (46-116); Anion Gap 11.8; Aspartate Amino Transferase 42 U/L (15-37); BUN Creatinine Ratio 15.4; Bilirubin Total 0.9 mg/dL (0.2-1.0); Calcium 9.4 mg/dL (8.5-10.1); Carbon Dioxide 31.5 mmol/L (21.0-32.0); Estimated GFR (African America >60 (>=60 mL/min/1.73m^2); Estimated GFR (Non-African Ame 59 (>=60 mL/min/1.73m^2); Globulin 3.3 g/dL; Glucose 122 mg/dL (74-106); Potassium 3.3 mmol/L (3.5-5.1); Total Protein 6.9 g/dL (6.4-8.2); Troponin I High Sensitivity 16.7 pg/mL (4.0-51.3)
[2024-09-22 10:07] LABS: Sodium 123 mmol/L (136-145)
[2024-09-22 10:08] LABS: Chloride 83 mmol/L (98-107)
[2024-09-22 10:39] LABS: Bilirubin Urine NEGATIVE (NEGATIVE); Blood Urine NEGATIVE (NEGATIVE); Clarity Urine CLEAR (CLEAR); Color Urine LT. YELLOW (YELLOW); Glucose Urine UA NEGATIVE (NEGATIVE); Ketones Urine NEGATIVE (NEGATIVE); Leukocyte Esterase Urine TRACE (NEGATIVE); Nitrite Urine NEGATIVE (NEGATIVE); Protein Urine NEGATIVE (NEG/TRACE); Specific Gravity Urine <=1.005 (1.005-1.025)
[2024-09-22 10:41] LABS: Urine Microscopic Indicated YES
[2024-09-22 10:46] LABS: Bacteria Urine TRACE #/HPF (NONE SEEN); Mucus Urine NONE SEEN (NONE SEEN); RBC Urine 0-2 #/HPF (0-2)
[2024-09-22 10:47] LABS: Cast Seen? NONE SEEN #/LPF (NONE SEEN); Crystals Seen? None Seen #/HPF (None Seen); Squamous Epithelial Cell Urine FEW #/LPF (NONE/RARE); Urine Culture Indicated NO
--- NOTE | 2024-09-22 11:14 | ED.GENADUL1 ---
HPI HPI - General Adult General Chief complaint: Weakness Stated complaint: WEAKNESS Time Seen by Provider: 09/22/24 09:35 Mode of arrival: walk-in History of Present Illness HPI narrative: The patient is a 84-year-old female is coming to the ER for the second day within a week for complaint of nausea and decreased level of energy, generalized weakness, there is no specific pain although the patient does have her hip pain which is a chronic problem The patient denies any chest pain no vomiting She had decreased p.o. intake for the last few days as well due to nausea The patient was just evaluated 2 days ago in the ER when she had some hyponatremia that responded to IV fluids Related Data Home Medications ?Medication ?Instructions ?Recorded ?Confirmed alprazolam 0.25 mg tablet 0.25 mg PO BID PRN anxiety 08/02/23 09/22/24 aspirin 81 mg chewable tablet 81 mg PO DAILY 08/02/23 09/22/24 (Dalton Chewable Low Dose Aspirin) atorvastatin 40 mg tablet 40 mg PO DAILY 08/02/23 09/22/24 carvedilol 12.5 mg tablet 12.5 mg PO Q12H 08/02/23 09/22/24 duloxetine 60 mg capsule,delayed 60 mg PO DAILY 08/02/23 09/22/24 release gabapentin 100 mg capsule 200 mg PO Q12H 08/02/23 09/22/24 loratadine 10 mg tablet 10 mg PO Q24H 08/02/23 09/22/24 hydrocodone 7.5 mg-acetaminophen 1 tab PO Q6H PRN severe pain 08/03/23 09/22/24 325 mg tablet (scale score 7-10) levothyroxine 100 mcg tablet 100 mcg PO .ACB 08/03/23 09/22/24 lisinopril 5 mg tablet 5 mg PO DAILY 08/13/24 09/22/24 metolazone 2.5 mg tablet 2.5 mg PO QDAY 09/20/24 09/22/24 torsemide 20 mg tablet 20 mg PO QDAY 09/20/24 09/22/24 vit C 250 mg-vit E 90 mg-zinc 40 1 tab PO BID 09/20/24 09/20/24 mg-copper 1 [id number] capsule (PreserVision AREDS-2) fluticasone fur. 100 mcg-umeclid 1 inh inhalation Q24H 09/22/24 09/22/24 62.5 mcg-vilant 25 mcg inhalat.powder (Trelegy Ellipta) furosemide 40 mg tablet 40 mg PO DAILY 09/22/24 09/22/24 ondansetron HCl 4 mg tablet 4 mg PO Q8H PRN nausea and vomiting 09/22/24 09/22/24 polyethylene glycol 3350 17 17 g PO DAILY 09/22/24 09/22/24 gram/dose oral powder (Purelax) Previous Rx's ?Medication ?Instructions ?Recorded ondansetron 4 mg disintegrating 4 mg PO Q6H PRN nausea and 09/20/24 tablet vomiting #15 tabs Allergies Allergy/AdvReac Type Severity Reaction Status Date / Time rofecoxib (From Vioxx) Allergy Severe Unknown Verified 08/13/24 14:24 naproxen (From Aleve) Allergy Intermediate Unknown Verified 08/13/24 14:24 Opioid HPI Opioid Management Most Recent Opioid Data: Last Pain Scale 0 08/03/23 11:20 08/03/23 Last Pain Intensity 0 08/03/23 11:20 08/03/23 Review of Systems ROS Status of ROS 10 or more systems reviewed and unremarkable except as noted in history and below [facility] Medical History (Updated 09/22/24 @ 11:22 by Shayy Garza MD) Hypothyroidism ?E03.9 - Hypothyroidism, unspecified (ICD-10) HLD (hyperlipidemia) ?E78.5 - Hyperlipidemia, unspecified (ICD-10) HTN (hypertension) ?I10 - Essential (primary) hypertension (ICD-10) Insufficient home care support ?Z74.2 - Need for assistance at home and no other household member able to render care (ICD-10) Muscular deconditioning ?R29.898 - Other symptoms and signs involving the musculoskeletal system (ICD-10) CHF (congestive heart failure) ?I50.9 - Heart failure, unspecified (ICD-10) COPD (chronic obstructive pulmonary disease) ?J44.9 - Chronic obstructive pulmonary disease, unspecified (ICD-10) Surgical History (Updated 08/02/23 @ 15:00 by Fatou Moralez) H/O hysterectomy for benign disease ?Z90.710 - Acquired absence of both cervix and uterus (ICD-10) Previous back surgery ?Z98.890 - Other specified postprocedural states (ICD-10) H/O hernia repair ?Z98.890 - Other specified postprocedural states (ICD-10) ?Z87.19 - Personal history of other diseases of the digestive system (ICD-10) Social History (Updated 08/03/23 @ 11:44 by Shaikh Adonay MD) Within the past year, how often did you have a drink containing alcohol: never Score interpretation: A score less than 3 is consistent with normal alcohol consumption. 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 General: Appears weak and in no apparent distress. Skin: Warm, dry, no pallor noted. No rash. Head: Normocephalic, atraumatic. Neck: Supple, non-tender. Eye: Pupils are equal, round and EOMI. No scleral icterus. Cardiovascular: Regular Rate and Rhythm without murmur, gallop or rub. Respiratory: No accessory muscle use or respiratory distress. Lungs are clear to auscultation, no wheezing, rales or rhonchi Chest Wall: no tenderness Back: No midline thoracic or lumbar vertebral tenderness. No CVA tenderness Musculoskeletal: normal ROM, no calf or popliteal tenderness, no lower extremity edema/swelling GI: Abdomen is soft, non-distended. Normal bowel sounds. No masses appreciated. No tenderness to palpation. No rebound, guarding, or rigidity noted. Constitutional Vital Signs, click to edit/add: Last Vital Signs Temp 97.6 F 09/22/24 09:18 Pulse 72 09/22/24 11:24 Resp 28 H 09/22/24 11:24 BP 188/58 H 09/22/24 11:01 Pulse Ox 97 09/22/24 11:24 Course Vital Signs Vital signs: Vital Signs Blood Pressure 171/79 H 09/22/24 09:00 Pulse Oximetry 96 09/22/24 09:00 Temperature 97.6 F 09/22/24 09:18 Pulse Rate 72 09/22/24 11:24 Respiratory Rate 28 H 09/22/24 11:24 Blood Pressure 188/58 H 09/22/24 11:01 Pulse Oximetry 97 09/22/24 11:24 Medical Decision Making MDM Narrative Medical decision making narrative: The patient EKG in the ER showing sinus rhythm with a heart rate of 63 CT head showed no acute pathology X-ray of the abdomen showed normal gas pattern The patient CBC and chemistry showing acute hyponatremia in addition to a mild acute kidney injury with a hypokalemia as well and the magnesium is pending The patient was started on 500 cc IV fluid as well as Zofran after which she was drinking some water p.o. and tolerating that well Patient provided with Percocet for pain The patient will be admitted for the hydration and monitoring her hyponatremia for improvement Patient case discussed with and he agrees on admitting the pt Lab Data Labs: Lab Results 09/22/24 09/22/24 Range/Units 09:10 10:00 WBC 7.5 (4.0-11.0) 10^3/uL RBC 4.27 (4.20-5.40) 10^6/uL Hgb 13.0 (12.0-16.0) g/dL Hct 38.3 (36.0-48.0) % MCV 89.7 (81.0-99.0) fL MCH 30.4 (26.7-34.0) pg MCHC 33.9 (29.9-35.2) g/dL RDW 12.6 (11.0-15.0) % Plt Count 167 (150-450) 10^3/uL MPV 10.6 (9.5-13.5) fL Neut % (Auto) 65.5 (43.0-75.0) % Lymph % (Auto) 18.2 L (20.5-60.0) % [place] % (Auto) 12.7 H (1.7-12.0) % Eos % (Auto) 2.5 (0.9-7.0) % Baso % (Auto) 0.7 (0.2-2.0) % Neut # (Auto) 4.9 (1.4-6.5) 10^3/uL Lymph # (Auto) 1.4 (1.2-3.8) 10^3/uL [place] # (Auto) 1.0 H (0.3-0.8) 10^3/uL Eos # (Auto) 0.2 (0.0-0.7) 10^3/uL Baso # (Auto) 0.1 (0.0-0.1) 10^3/uL Abs Immat Gran (auto) 0.03 (0.00-0.03) 10^3/uL Imm/Tot Granulo (auto) 0.4 (0.0-0.5) % Sodium 123 L* (136-145) mmol/L Potassium 3.3 L (3.5-5.1) mmol/L Chloride 83 L* (98-107) mmol/L Carbon Dioxide 31.5 (21.0-32.0) mmol/L Anion Gap 11.8 BUN 14.0 (7.0-18.0) mg/dL Creatinine 0.91 (0.55-1.02) mg/dL Est GFR ( Amer) >60 (>=60 mL/min/1.73m^2) Est GFR (Non-Af Amer) 59 L (>=60 mL/min/1.73m^2) BUN/Creatinine Ratio 15.4 Glucose 122 H (74-106) mg/dL Calcium 9.4 (8.5-10.1) mg/dL Magnesium 1.9 (1.8-2.4) mg/dL Total Bilirubin 0.9 (0.2-1.0) mg/dL AST 42 H (15-37) U/L ALT 28 (14-59) U/L Alkaline Phosphatase 109 (46-116) U/L Troponin I High Sens 16.7 (4.0-51.3) pg/mL Total Protein 6.9 (6.4-8.2) g/dL Albumin 3.6 (3.4-5.0) g/dL Globulin 3.3 g/dL Albumin/Globulin Ratio 1.1 Urine Color Lt. yellow (YELLOW) Urine Clarity Clear (CLEAR) Urine pH 7.0 (5.0-9.0) Ur Specific [place] <=1.005 A (1.005-1.025) Urine Protein Negative (NEG/TRACE) mg/dL Urine Glucose (UA) Negative (NEGATIVE) mg/dL Urine Ketones Negative (NEGATIVE) mg/dL Urine Occult Blood Negative (NEGATIVE) Urine Nitrite Negative (NEGATIVE) Urine Bilirubin Negative (NEGATIVE) Urine Urobilinogen 1.0 (0.2-1.0) EU/dL Ur Leukocyte Esterase Trace A (NEGATIVE) Urine RBC 0-2 (0-2) #/HPF Urine WBC 2-5 A (NONE SEEN) #/HPF Ur Squamous Epith Cells Few A (NONE/RARE) #/LPF Urine Crystals None seen (None Seen) #/HPF Urine Bacteria Trace A (NONE SEEN) #/HPF Urine Casts None seen (NONE SEEN) #/LPF Urine Mucus None seen (NONE SEEN) Ur Culture Indicated? No Discharge Plan Discharge Chief Complaint: Weakness Clinical Impression: Acute hypokalemia, Nausea, Acute hyponatremia Patient Disposition: Admitted As Inpatient Time of Disposition Decision: 11:22
[2024-09-22] MEDS: 0.9 % SODIUM CHLORIDE 1,000 ML 500 ML IV (11:19)
[2024-09-22] MEDS: ONDANSETRON PF 4 MG/2 ML VIAL IV (11:20)
[2024-09-22] MEDS: OXYCODONE HCL/ACETAMINOPHEN 5MG/325MG 1 TAB PO (11:25)
[2024-09-22 11:29] LABS: Magnesium 1.9 mg/dL (1.8-2.4)
[2024-09-22] MEDS: ACETAMINOPHEN 500 MG TABLET 1000 MG PO (13:42)
[2024-09-22] MEDS: HYDRALAZINE HCL 20 MG/ML VIAL 10 MG IVP (13:42)
[2024-09-22] MEDS: POTASSIUM CHLORIDE IN 0.9%NACL 1,000 ML 100 ML IV (15:13)
[2024-09-22] MEDS: HYDROCODONE/ACET 5-325 MG TABLET 1 TAB PO ×2 (15:13→23:04)
[2024-09-22] MEDS: ONDANSETRON 4 MG RAPDIS TABLET PO (15:14)
[2024-09-22] MEDS: ALPRAZOLAM 0.25 MG TABLET PO (15:14)
[2024-09-22] MEDS: IPRATROPIUM/ALBUTEROL SULFATE 3 ML AMPUL.NEB IH ×2 (15:47→20:26)
[2024-09-22] MEDS: BUDESONIDE 0.5 MG/2 ML AMPULE NEB IH (20:26)
[2024-09-22] MEDS: GABAPENTIN 100 MG CAPSULE 200 MG PO (21:04)
[2024-09-22] MEDS: METHYLPREDNISOLONE SOD SUCC PF 125 MG/2 ML VIAL 60 MG IVP (21:04)
[2024-09-22] MEDS: CARVEDILOL 12.5 MG TABLET PO (21:04)
[2024-09-23] VITALS (22 sets, daily range): BP systolic 108–144; BP diastolic 67–82; PULSE 64–95; TEMP 36.3–36.8; O2SAT 91–95
[2024-09-23] MEDS: METHYLPREDNISOLONE SOD SUCC PF 125 MG/2 ML VIAL 60 MG IVP ×4 (01:49→21:14)
[2024-09-23] MEDS: POTASSIUM CHLORIDE IN 0.9%NACL 1,000 ML 100 ML IV ×3 (01:56→23:47)
[2024-09-23] MEDS: IPRATROPIUM/ALBUTEROL SULFATE 3 ML AMPUL.NEB IH ×4 (04:03→20:26)
[2024-09-23] MEDS: LEVOTHYROXINE SODIUM 100 MCG TABLET PO (05:45)
[2024-09-23] MEDS: HYDROCODONE/ACET 5-325 MG TABLET 1 TAB PO ×4 (05:55→23:48)
[2024-09-23 06:14] LABS: Hematocrit 37.6 % (36.0-48.0); Hemoglobin 12.9 g/dL (12.0-16.0); Mean Corpuscular HGB Conc 34.3 g/dL (29.9-35.2); Mean Corpuscular Hemoglobin 30.7 pg (26.7-34.0); Mean Corpuscular Volume 89.5 fL (81.0-99.0); Mean Platelet Volume 10.6 fL (9.5-13.5); Platelet Count 154 10^3/uL (150-450); Red Cell Distribution Width 12.3 % (11.0-15.0); White Blood Count 5.2 10^3/uL (4.0-11.0)
--- OUTSIDE RECORDS SUMMARY | 2024-09-23 06:15 | XMS_ITS ---
Author Name Auto Generated Organization [facility] Support Name Relationship Address Phone AJITH NORWOOD Next of Kin Unknown [phone] CUCO, AJITH Next of Kin Unknown [phone] DALES, AJITH Next of Kin Unknown [phone] DALES, AJITH Next of Kin Unknown [phone] DALES, AJITH Next of Kin Unknown [phone] DALES, AJITH Next of Kin Unknown [phone] DALES, AJITH Next of Kin Unknown [phone] DALES, AJITH Next of Kin Unknown [phone] DALES, AJITH Next of Kin Unknown [phone] DALES, AJITH Next of Kin Unknown [phone] DALES, AJITH Next of Kin Unknown [phone] DALES, AJITH Next of Kin Unknown [phone] DALES, AJITH Next of Kin Unknown [phone] DALES, AJITH Next of Kin Unknown [phone] DALES, AJITH Next of Kin Unknown [phone] DALES, AJITH Next of Kin Unknown [phone] DALES, AJITH Next of Kin Unknown [phone] DALES, AJITH Next of Kin Unknown [phone] DALES, AJITH Next of Kin Unknown [phone] DALES, AJITH Next of Kin Unknown [phone] Care Team Providers Care Hotel Reservation Agent Name Role Phone BEL OJEDA Attending Unavailable IVANNA LEVI A Attending Unavailable LANDERS, YOSSI B Attending Unavailable DELMA ARGUELLES Attending Unavailable LANDERS, YOSSI B Referring Unavailable LANDERS, YOSSI B Attending Unavailable LANDERS, YOSSI B Attending Unavailable LANDERS, YOSSI B Attending Unavailable TIMMIBEL Epps H Attending Unavailable LANDERS, YOSSI B Attending Unavailable HEMMERJOSE EDUARDO Attending Unavailable LANDERS, YOSSI B Attending Unavailable LANDERS, YOSSI B Attending Unavailable LANDERS, YOSSI B Attending Unavailable HEMMERJOSE EDUARDO Attending Unavailable BROWN, IVANNA A Attending Unavailable HEMMER, JOSE EDUARDO M Referring Unavailable BROWN, IVANNA A Attending Unavailable LANDERS, YOSSI B Attending Unavailable LANDERS, YOSSI B Referring Unavailable LANDERS, YOSSI B Attending Unavailable LANDERS, YOSSI B Attending Unavailable HayElmer E Attending Unavailable HayElmer E Admitting Unavailable Landers, Yossi Primary Care Unavailable Mouchli, Mohamad A. Admitting Unavailable Mouchli, Mohamad A. Referring Unavailable Mouchli, Mohamad A. Attending Unavailable Mohumzali Mohamad A. Attending Unavailable Mouchli, Mohamad A. Admitting Unavailable Mouchli, Mohamad A. Referring Unavailable Mouchli, Mohamad A. Attending Unavailable PROBLEMS No Problem Records Found PROCEDURES No Procedure Records Found RESULTS URINE CULTURE Observed: 08/13/2024 5:00 PM Status: F Source: [facility] REPOSITORY No Growth 2 Days PERFORMED BY: [place] [address] PATHOLOGIST JOB PRESS OPERATOR TRACI MORROW M.D. Performed By: #### [facility] #### [address] PROGRESS NOTE-PHYSICIAN Observed: 2023 1:29 PM Status: F Source: [facility] REPOSITORY Progress Note-Physician Patient: ELGIN NORWOOD Age: 83 years Sex: Female : 1940 Associated Diagnoses: None Author: Luciano Grace MD Postoperative Information Postoperative disposition: Postoperative disposition: To PACU. Optimetrix number: Optimetrix number [id number]. Anesthetic utilized: General. Health Status Allergies: Allergic [...] when meets criteria ( To home ). Result Comment: Electronical ly Signed By: Sanjay VALDEZ, Luciano Leonard\.br\Date and Time Signed: 03/08/24 13:29 EDT DISCHARGE INSTRUCTIONS Observed: 024 10:37 AM Status: F Source: [facility] REPOSITORY Discharge Instructions ELGIN NORWOOD :1940 Visit Date:03/08/2024 Inpatient Discharge Instructions Your [...] after Discharge Follow Up with Amaris VALDEZ, Mandi Red GAS, [facility] When: Comments: Office will call to schedule follow up appointment and/or review any pending biopsy results Call for any problems. Where: [address] [place] [address], [address] [place] [phone] Medications What How Much When Instructions Next [...] severe or gets worse throughout the day. Colon Polyps Colon polyps are tissue growths inside the colon, which is part of the large intestine. They are one of the types of polyps that can grow in the body. A polyp may be a round bump or a mushroom-shaped growth. You could have one polyp or more than one. Most colon polyps are noncancerous (benign). However, some colon polyps can become cancerous over time. Finding and removing the polyps early can help prevent this. What are the causes? The exact cause of colon polyps is not known. What increases the risk? The following factors may make you more likely to develop this condition: ? Having a family history of colorectal cancer or colon polyps. ? Being older than 45 years of age. ? Being younger than 45 years of age and having a significant family history of colorectal cancer or colon polyps or a genetic condition that puts you at higher risk of getting colon polyps. ? Having inflammatory bowel disease, such as ulcerative colitis or Crohn's disease. ? Having certain conditions passed from parent to child (hereditary conditions), such as: ? Familial adenomatous polyposis (FAP). ? Johansen syndrome. ? Turcot syndrome. ? Peutz?Jeghers syndrome. ? MUTYH-associated polyposis (MAP). ? Being overweight. ? Certain lifestyle factors. These include smoking cigarettes, drinking too much alcohol, not getting enough exercise, and eating a diet that is high in fat and red meat and low in fiber. ? Having had childhood cancer that was treated with radiation of the abdomen. What are the signs or symptoms? Many times, there are no symptoms. If you have symptoms, they may include: ? Blood coming from the rectum during a bowel movement. ? Blood in the stool (feces). The blood may be bright red or very dark in color. ? Pain in the abdomen. ? A change in bowel habits, such as [...] these instructions at home: Eating and drinking ? Eat foods that are high in fiber, such as fruits, vegetables, and whole grains. ? Eat foods that are high in calcium and vitamin D, such as milk, cheese, yogurt, eggs, liver, fish, and broccoli. ? Limit foods that are high in fat, such as fried foods and desserts. ? Limit the amount of red meat, precooked or cured meat, or other processed meat that you eat, such as hot dogs, sausages, joshi, or meat loaves. ? Limit sugary drinks. Lifestyle ? Maintain a healthy weight, or lose weight if recommended by your health care provider. ? Exercise every day or as told by your health care provider. ? Do not use any products that contain nicotine or tobacco, such as cigarettes, e-cigarettes, and chewing tobacco. If you need help quitting, ask your health care provider. ? Do not drink alcohol if: ? Your health care provider tells you not to drink. ? You are , may be , or are planning to become . ? If you drink alcohol: ? Limit how much you use to: ? 0?1 drink a day for women. ? 0?2 drinks a day for men. ? Know how much alcohol is in your drink. In the [place] one drink equals one 12 oz bottle of beer (355 mL), one 5 oz glass of wine (148 mL), or one 1? oz glass of hard liquor (44 mL). General instructions ? Take yoey-gkh-hgvnaqq and prescription medicines only as told by your health care provider. ? Keep all follow-up visits. This is important. This includes having regularly scheduled colonoscopies. Talk to your health care provider about when you need a colonoscopy. Contact a health care provider if: ? You have new or worsening bleeding during a bowel movement. ? You have new or increased blood in your stool. ? You have a change in bowel habits. ? You lose weight for no known reason. Summary ? Colon polyps are tissue growths inside the colon, which is part of the large intestine. They are one type of polyp that can grow in the body. ? Most colon polyps are noncancerous (benign), but some can become cancerous over time. ? This condition is diagnosed with a colonoscopy. ? This condition is treated by removing any polyps that are found. Most polyps can be removed during a colonoscopy. This information is not intended to replace advice given to you by your health care provider. Make sure you discuss any questions you have with your health care provider. Document Revised: 09/26/2020 Document Reviewed: 09/26/2020 [employer] Patient Education ? 2023 [employer]. Diverticulosis Diverticulosis is when small pouches called diverticula form in the wall of the colon. The colon is where water is absorbed. It is also where poop (stool) is formed. The pouches form when the inside layer of the colon pushes through weak spots in the outer layers of the colon. You may have a few pouches or many of them. In most cases, the pouches do not cause problems. If they become inflamed or infected, you may have a condition called diverticulitis. What are the causes? [...] exercise. ? You smoke. ? You take vqcp-rgj-zmbltsl pain medicines. ? You have a family [...] other colon problems. It may be diagnosed when you have: ? A colonoscopy. This is when [...] what you can do at home to help prevent problems. You may need treatment if you have symptoms or if you have had diverticulitis before. You may be told to: ? Eat a high-fiber diet. ? Take medicine to relax your colon. ? Lose weight. Follow these instructions at home: Medicines ? Take zjsu-meh-eosvjdc and prescription medicines only as told by your provider. ? If told, take a fiber supplement or probiotic. Managing constipation Your condition may cause constipation. To prevent or treat constipation, you may need to: ? Drink enough fluid to keep your pee (urine) pale yellow. ? Take mmrt-cbi-eqyxamn or prescription medicines. ? Eat foods that [...] provider. Document Revised: 03/05/2023 Document Reviewed: 03/05/2023 [employer] Patient Education ? 2023 [employer] Hemorrhoids Hemorrhoids are swollen veins that may form: ? In the butt (rectum). These are called internal hemorrhoids. ? Around the opening of the butt (anus). These are called external hemorrhoids. Most hemorrhoids do not cause very bad problems. They often get better with changes to your lifestyle and what you eat. What are the causes? ? Having trouble pooping (constipation) or watery poop (diarrhea). ? Pushing too hard when you poop. ? . ? Being very overweight (obese). ? Sitting for too long. ? Riding a bike for a long time. ? Heavy lifting or other things that take a lot of effort. ? Anal sex. What are the signs or symptoms? ? Pain. ? Itching or soreness in the butt. ? Bleeding from the butt. ? Leaking poop. ? Swelling. ? One or more lumps around the opening of your butt. How is this treated? In most cases, hemorrhoids can be treated at home. You may be told to: ? Change what you eat. ? Make changes to your lifestyle. If these treatments do not help, you may need to have a procedure done. Your doctor may need to: ? Place rubber bands at the bottom of the hemorrhoids to make them fall off. ? Put medicine into the hemorrhoids to shrink them. ? Shine a type of light on the hemorrhoids to cause them to fall off. ? Do surgery to get rid of the hemorrhoids. Follow these instructions at home: Medicines ? Take ejbn-udo-htpyofn and prescription medicines only as told by your doctor. ? Use creams with medicine in them or medicines that you put in your butt as told by your doctor. Eating and drinking ? Eat foods that have a lot of fiber in them. These include whole grains, beans, nuts, fruits, and vegetables. ? Ask your doctor about taking products that have fiber added to them (fibersupplements). ? Take in less fat. You can do this by: ? Eating low-fat dairy products. ? Eating less red meat. ? Staying away from processed foods. ? Drink enough fluid to keep your pee (urine) pale yellow. Managing pain and swelling ? Take a warm-water bath (sitz bath) for 20 minutes to ease pain. Do this 3?4 times a day. You may do this in a bathtub. You may also use a portable sitz bath that fits over the toilet. ? If told, put ice on the painful area. It may help to use ice between your warm baths. ? Put ice in a plastic bag. ? Place a towel between your skin and the bag. ? Leave the ice on for 20 minutes, 2?3 times a day. ? If your skin turns bright red, take off the ice right away to prevent skin damage. The risk of damage is higher if you cannot feel pain, heat, or cold. General instructions ? Exercise. Ask your doctor how much and what kind of exercise is best for you. ? Go to the bathroom when you need to poop. Do not wait. ? Try not to push too hard when you poop. ? Keep your butt dry and clean. Use wet toilet paper or moist towelettes after you poop. ? Do not sit on the toilet for a long time. Contact a doctor if: ? You have pain and swelling that do not get better with treatment. ? You have trouble pooping. ? You cannot poop. ? You have pain or swelling outside the area of the hemorrhoids. Get help right away if: ? You have bleeding from the butt that will not stop. This information is not intended to replace advice given to you by your health care provider. Make sure you discuss any questions you have with your health care provider. Document Revised: 02/18/2023 Document Reviewed: 02/18/2023 [employer] Patient Education ? 2023 [employer] Common Emergency Awareness Tips IS IT A STROKE? Act FAST and Check for these signs: FACE Does the face look uneven? ARM Does one arm drift down? SPEECH Does their speech sound strange? TIME Call at any sign of stroke Heart Attack Signs Chest discomfort: Most heart attacks involve discomfort in the center of the chest and lasts more than a few minutes, or goes away and comes back. It can feel like uncomfortable pressure, squeezing, fullness or pain. Discomfort in upper body: Symptoms can include pain or discomfort in one or both arms, back, neck, jaw or stomach. Shortness of breath: With or without discomfort. Other signs: Breaking out in a cold sweat, nausea, or lightheaded. Remember, MINUTES DO MATTER. If you experience any of these heart attack warning signs, call to get immediate medical attention! Patient Survey You may receive a survey in the mail asking you about your stay with us. We want to hear from you, please share your experience with us by completing your survey. Thank you for choosing [facility]. Kristan Award Nomination The KRISTAN (Diseases Attacking the Immune SYstem) Award is an international recognition program that honors and celebrates the skillful, compassionate care nurses provide every day. Anyone who experiences or observes amazing care being provided by a nurse is encouraged to submit a nomination. To nominate your nurse, use your smart phone to scan the QR code below. Patient Portal You may access all of your results and other medical record information on our secure patient portal. If you are not signed up for this yet, please contact [employer] at [phone] to get signed up today. Patient Name: ELGIN NORWOOD I have received this information and my questions have been answered. Patient/Dredge Master Name: Patient/Dredge Master Signature: Relationship to Patient: Witness Name/Signature: Date: Result Comment: Electronical ly Signed By: Shakila COTA, Gene.zari\Date and Time Signed: 03/08/24 10:37 EDT PATIENT EDUCATION - TEXT Observed: 03/08 10:37 AM Status: C Source: [facility] REPOSITORY Patient Education - Text Colonoscopy Care After Surgery [...] the wall of the colon. The colon is where water is absorbed. It is also where poop (stool) is formed. The pouches form when the inside layer of the colon pushes through weak spots in the outer layers of the colon. You may have a few pouches or many of them. In most cases, the pouches do not cause problems. If they become inflamed or infected, you may have a condition called diverticulitis. What are the causes? [...] exercise. ? You smoke. ? You take pvre-xql-sscisaf pain medicines. ? You have a family [...] other colon problems. It may be diagnosed when you have: ? A colonoscopy. This is when [...] what you can do at home to help prevent problems. You may need treatment if you have symptoms or if you have had diverticulitis before. You may be told to: ? Eat a high-fiber diet. ? Take medicine to relax your colon. ? Lose weight. Follow these instructions at home: Medicines ? Take gvvo-wed-wslzyme and prescription medicines only as told by your provider. ? If told, take a fiber supplement or probiotic. Managing constipation Your condition may cause constipation. To prevent or treat constipation, you may need to: ? Drink enough fluid to keep your pee (urine) pale yellow. ? Take fomf-oyq-fmwhted or prescription medicines. ? Eat foods that [...] provider. Document Revised: 03/05/2023 Document Reviewed: 03/05/2023 [employer] Patient Education ? 2023 [employer]Hemorrhoids Hemorrhoids are swollen veins that may form: ? In the butt (rectum). These are called internal hemorrhoids. ? Around the opening of the butt (anus). These are called external hemorrhoids. Most hemorrhoids do not cause very bad problems. They often get better with changes to your lifestyle and what you eat. What are the causes? ? Having trouble pooping (constipation) or watery poop (diarrhea). ? Pushing too hard when you poop. ? . ? Being very overweight (obese). ? Sitting for too long. ? Riding a bike for a long time. ? Heavy lifting or other things that take a lot of effort. ? Anal sex. What are the signs or symptoms? ? Pain. ? Itching or soreness in the butt. ? Bleeding from the butt. ? Leaking poop. ? Swelling. ? One or more lumps around the opening of your butt. How is this treated? In most cases, hemorrhoids can be treated at home. You may be told to: ? Change what you eat. ? Make changes to your lifestyle. If these treatments do not help, you may need to have a procedure done. Your doctor may need to: ? Place rubber bands at the bottom of the hemorrhoids to make them fall off. ? Put medicine into the hemorrhoids to shrink them. ? Shine a type of light on the hemorrhoids to cause them to fall off. ? Do surgery to get rid of the hemorrhoids. Follow these instructions at home: Medicines ? Take vulq-bnj-chqvvtb and prescription medicines only as told by your doctor. ? Use creams with medicine in them or medicines that you put in your butt as told by your doctor. Eating and drinking ? Eat foods that have a lot of fiber in them. These include whole grains, beans, nuts, fruits, and vegetables. ? Ask your doctor about taking products that have fiber added to them (fibersupplements). ? Take in less fat. You can do this by: ? Eating low-fat dairy products. ? Eating less red meat. ? Staying away from processed foods. ? Drink enough fluid to keep your pee (urine) pale yellow. Managing pain and swelling ? Take a warm-water bath (sitz bath) for 20 minutes to ease pain. Do this 3?4 times a day. You may do this in a bathtub. You may also use a portable sitz bath that fits over the toilet. ? If told, put ice on the painful area. It may help to use ice between your warm baths. ? Put ice in a plastic bag. ? Place a towel between your skin and the bag. ? Leave the ice on for 20 minutes, 2?3 times a day. ? If your skin turns bright red, take off the ice right away to prevent skin damage. The risk of damage is higher if you cannot feel pain, heat, or cold. General instructions ? Exercise. Ask your doctor how much and what kind of exercise is best for you. ? Go to the bathroom when you need to poop. Do not wait. ? Try not to push too hard when you poop. ? Keep your butt dry and clean. Use wet toilet paper or moist towelettes after you poop. ? Do not sit on the toilet for a long time. Contact a doctor if: ? You have pain and swelling that do not get better with treatment. ? You have trouble pooping. ? You cannot poop. ? You have pain or swelling outside the area of the hemorrhoids. Get help right away if: ? You have bleeding from the butt that will not stop. This information is not intended to replace advice given to you by your health care provider. Make sure you discuss any questions you have with your health care provider. Document Revised: 02/18/2023 Document Reviewed: 02/18/2023 [employer] Patient Education ? 2023 [employer].Oncology Colon Polyps Colon polyps are tissue growths inside the colon, which is part of the large intestine. They are one of the types of polyps that can grow in the body. A polyp may be a round bump or a mushroom-shaped growth. You could have one polyp or more than one. Most colon polyps are noncancerous (benign). However, some colon polyps can become cancerous over time. Finding and removing the polyps early can help prevent this. What are the causes? The exact cause of colon polyps is not known. What increases the risk? The following factors may make you more likely to develop this condition: ? Having a family history of colorectal cancer or colon polyps. ? Being older than 45 years of age. ? Being younger than 45 years of age and having a significant family history of colorectal cancer or colon polyps or a genetic condition that puts you at higher risk of getting colon polyps. ? Having inflammatory bowel disease, such as ulcerative colitis or Crohn's disease. ? Having certain conditions passed from parent to child (hereditary conditions), such as: ? Familial adenomatous polyposis (FAP). ? Johansen syndrome. ? Turcot syndrome. ? Peutz?Jeghers syndrome. ? MUTYH-associated polyposis (MAP). ? Being overweight. ? Certain lifestyle factors. These include smoking cigarettes, drinking too much alcohol, not getting enough exercise, and eating a diet that is high in fat and red meat and low in fiber. ? Having had childhood cancer that was treated with radiation of the abdomen. What are the signs or symptoms? Many times, there are no symptoms. If you have symptoms, they may include: ? Blood coming from the rectum during a bowel movement. ? Blood in the stool (feces). The blood may be bright red or very dark in color. ? Pain in the abdomen. ? A change in bowel habits, such as [...] these instructions at home: Eating and drinking ? Eat foods that are high in fiber, such as fruits, vegetables, and whole grains. ? Eat foods that are high in calcium and vitamin D, such as milk, cheese, yogurt, eggs, liver, fish, and broccoli. ? Limit foods that are high in fat, such as fried foods and desserts. ? Limit the amount of red meat, precooked or cured meat, or other processed meat that you eat, such as hot dogs, sausages, joshi, or meat loaves. ? Limit sugary drinks. Lifestyle ? Maintain a healthy weight, or lose weight if recommended by your health care provider. ? Exercise every day or as told by your health care provider. ? Do not use any products that contain nicotine or tobacco, such as cigarettes, e-cigarettes, and chewing tobacco. If you need help quitting, ask your health care provider. ? Do not drink alcohol if: ? Your health care provider tells you not to drink. ? You are , may be , or are planning to become . ? If you drink alcohol: ? Limit how much you use to: ? 0?1 drink a day for women. ? 0?2 drinks a day for men. ? Know how much alcohol is in your drink. In the [place] one drink equals one 12 oz bottle of beer (355 mL), one 5 oz glass of wine (148 mL), or one 1? oz glass of hard liquor (44 mL). General instructions ? Take mksy-gwz-gkmdxki and prescription medicines only as told by your health care provider. ? Keep all follow-up visits. This is important. This includes having regularly scheduled colonoscopies. Talk to your health care provider about when you need a colonoscopy. Contact a health care provider if: ? You have new or worsening bleeding during a bowel movement. ? You have new or increased blood in your stool. ? You have a change in bowel habits. ? You lose weight for no known reason. Summary ? Colon polyps are tissue growths inside the colon, which is part of the large intestine. They are one type of polyp that can grow in the body. ? Most colon polyps are noncancerous (benign), but some can become cancerous over time. ? This condition is diagnosed with a colonoscopy. ? This condition is treated by removing any polyps that are found. Most polyps can be removed during a colonoscopy. This information is not intended to replace advice given to you by your health care provider. Make sure you discuss any questions you have with your health care provider. Document Revised: 09/26/2020 Document Reviewed: 09/26/2020 [employer] Patient Education ? 2023 [employer]. SURGICAL PATHOLOGY REPORT Observed: 02/20 10:15 AM Status: F Source: [facility] REPOSITORY [facility] [place] [address]- Surgical Pathology Report Collected Date/Time: 03/08/2024 10:15 EDT Pathologist: Meng Vyas MD Received Date/Time: 03/08/2024 11:54 JACKELYNT Amaris VALDEZ, Mandi Glez MD, Mandi Cohen [...] is entirely submitted in one cassette. (DC) DC:[facility] Microscopic Description A&B: Microscopic examination performed unless gross only specified. Performed By: #### [id number] # ### [place] [address] SURGICAL PATHOLOGY REPORT Observed: 02/20 10:15 AM Status: F Source: [facility] REPOSITORY [address] [place] [address]- Surgical Pathology Report Collected Date/Time: 03/08/2024 10:15 [...] is entirely submitted in one cassette. (DC) DC:[facility] Microscopic Description A&B: Microscopic examination performed unless gross only specified. Performed By: #### [id number] # ### [facility] [address] [place] [address] OPERATIVE REPORT Observed: 03/08/2024 10:14 AM Status: C Source: [facility] REPOSITORY Operative Report Patient: ELGIN NORWOOD Age: 83 years Sex: Female : 1940 Associated Diagnoses: None Author: Amaris VALDEZ, Mandi Red Preoperative Information Chief compliant/Indication for procedure: abnl CT Chief Complaint as above Review of Systems All systems reviewed, negative except as mentioned above Physical Examination Vital Signs (last 24 hrs) Last Charted Temp Temporal 36.7 DegC (MAR 08 08:46) Heart Rate Monitored 88 bpm (MAR 08 08:46) SBP 134 mmHg (MAR 08 08:46) DBP 70 mmHg (MAR 08 08:46) Weight 87.3 kg (MAR 08 08:46) General: in Nad Abdomen: Soft, NTND Impression and Plan Diagnosis: abnl CT - colonoscopy Result Comment: Electronical ly Signed By: Amaris VALDEZ, Mandi Red\.br\Date and Time Signed: 03/08/24 10:14 EDT OPERATIVE REPORT Observed: 03/08/2024 10:14 AM Status: C Source: [facility] REPOSITORY H&P Update Patient: ELGIN NORWOOD Age: 83 years Sex: Female : 1940 Associated Diagnoses: None Author: Mandi Glez MD Preoperative Information Chief compliant/Indication for procedure: abnl CT Chief Complaint as above Review of Systems All systems reviewed, negative except as mentioned above Physical Examination Vital Signs (last 24 hrs) Last Charted Temp Temporal 36.7 DegC (MAR 08 08:46) Heart Rate Monitored 88 bpm (MAR 08 08:46) SBP 134 mmHg (MAR 08 08:46) DBP 70 mmHg (MAR 08 08:46) Weight 87.3 kg (MAR 08 08:46) General: in Nad Abdomen: Soft, NTND Impression and Plan Diagnosis: abnl CT - colonoscopy H&P OPERATIVE REPORT Observed: 03/08/2024 10:14 AM Status: F Source: [facility] REPOSITORY Operative Report Patient: ELGIN NORWOOD Age: 83 years Sex: Female : 1940 Associated Diagnoses: None Author: Mandi Glez MD Pre-Procedure Procedure Date 03/08/2024 10:15:00 . Procedure Type: Colonoscopy with removal of tumor(s), polyp(s), or other lesion(s) by cold snare technique. Procedure provider Performed by Mandi Glez MD. Current history and physical Documented on chart. EGD - esophagogastroduodenoscopy ([id number]) on 02/03/2024 at 83 Years. Colonoscopy ([id number]) on 02/03/2024 at 83 Years.. Past Medical History No active or resolved past medical history items have been selected or recorded.. Family History Heart disease Mother Diabetes mellitus type 2 Mother Cancer Father Mother . Procedure History EGD - esophagogastroduodenoscopy ([id number]) on 02/03/2024 at 83 Years. Colonoscopy ([id number]) on 02/03/2024 at 83 Years.. Colorectal neoplasm [...] colon 6. Internal hemorrhoids Images Procedure images: Rec_hd_video___[id number].jpg Rec_hd_video___16_[id number]_113.jpg Rec_hd_video__17_31_091.jpg Rec_hd_video__17_[id number].jpg Rec_hd_video__18_[id number].jpg Rec_hd_video__20_08_152.jpg Rec1_hd_video_2023__[id number].jpg . Post-Procedure Complications: none. Estimated blood loss: Minimal. Specimens: sent to pathology. Devices/ implants: none left in place. Impression and Plan 6 colon polyps?removed as above Redundant colon with excessive mucus Diverticulosis Internal hemorrhoids Recommendations: Repeat colonoscopy:: None given age and comorbiditties . Follow-up:: in clinic for 1-2 weeks when pathology is available. Diet:: Previous. Medication resumption:: Continue current medications, Avoid NSAIDs. Return to activities:: After 24 hours. Education and Follow-up: Counseled: Patient, Family. Result Comment: Electronical ly Signed By: Amaris VALDEZ, Mandi Yeager.br\Date and Time Signed: 03/08/24 10:18 EDT Other Comment: Missing Attac hment - attachment storage system not supported [id number] Can be viewed in source system Missing Attachment - attachment storage system not supported [id number] Can be viewed in source systemMissing Attachment - attachment storage system not supported [id number] Can be viewed in source systemMissing Attachment - attachment storage system not supported [id number] Can be viewed in source systemMissing Attachment - attachment storage system not supported [id number] Can be viewed in source systemMissing Attachment - attachment storage system not supported [id number] Can be viewed in source systemMissing Attachment - attachment storage system not supported [id number] Can be viewed in source system PROGRESS NOTE-PHYSICIAN Observed: 2023 10:06 AM Status: F Source: [facility] REPOSITORY Progress Note-Physician Patient: ELGIN NORWOOD Age: 83 years Sex: Female : 1940 Associated Diagnoses: None Author: Sanjay VALDEZ, Luciano Childs. Preoperative Information Anesthesia Preop Info: Time patient [...] CT of the abdomen / SNOMED CT 3334331952 / Confirmed Cholelithiasis / SNOMED CT 827336876 / Confirmed Esophageal dysmotility / SNOMED CT 809558187 / Confirmed Esophageal dysphagia / SNOMED CT 77200219 / Confirmed History of gastric surgery / SNOMED CT 9801211162 / Confirmed, Active Problems (5) Abnormal CT of the abdomen Cholelithiasis Esophageal dysmotility Esophageal dysphagia History of gastric surgery Histories Past Medical History: No active or resolved past medical history items have been selected or recorded. Family History: Heart disease Mother Diabetes mellitus type 2 Mother Cancer Father Mother Procedure history: Sigmoidoscopy ([id number]) on 03/08/2024 at 83 Years. EGD - esophagogastroduodenoscopy ([id number]) on 02/03/2024 at 83 Years. Colonoscopy ([id number]) on 02/03/2024 at 83 Years. Social History Social & Psychosocial Habits Tobacco 12/21/2023 Tobacco Use: Former smoker, quit more . Physical Examination Vital Signs 03/08/2024 8:46 EDT Temperature Temporal Artery 36.7 DegC Heart Rate Monitored 88 bpm Respiratory Rate 20 br/min Systolic Blood Pressure 134 mmHg Diastolic Blood Pressure 70 mmHg Blood Pressure Location Left arm SpO2 96 % Vital Signs (last 24 hrs) Last Charted Temp Temporal 36.7 DegC (MAR 08 08:46) Heart Rate Monitored 88 bpm (MAR 08 08:46) SBP 134 mmHg (MAR 08 08:46) DBP 70 mmHg (MAR 08 08:46) Weight 87.3 kg (MAR 08 08:46) Measurements from flowsheet : Measurements 03/08/2024 8:46 EDT Height/Length Measured 165 cm Height/Length Dosing 165.0 cm Weight Dosing 87.3 kg Weight Measured 87.3 kg Airway: Mallampati classification: II (soft palate, fauces, uvula visible). Respiratory: Lungs are clear to auscultation, moderately labored breathing at rest; decreased air movement. Cardiovascular: Regular rhythm, No murmur, diastant heart sounds. Review / Management Results review: No qualifying data available . Plan [place] [employer]esthesiologists (ASA) physical status classification: Class IV. Anesthetic Preoperative Plan: Anesthesia Monitored anethesia care. Result Comment: Electronical ly Signed By: Sanjay VALDEZ, Luciano Leonard\.br\Date and Time Signed: 03/08/24 10:10 EDT MAIN OR INTRAOPERATIVE RECORD Observed: 03/08/2024 9:54 AM Status: C Source: [facility] REPOSITORY Main OR Intraoperative Recor d IntraOp Document Type FT Summary Primary Physician: Mandi Glez MD Finalized Date/Time: 03/09/24 10:12:42 Pt. Name: ELGIN NORWOOD Glenroy Xavier./Sex: 1940 Female Med Rec #: [id number] Physician: Mandi Glez MD Financial #: [id number] Pt. Type: O Room/Bed: / Admit/Disch: 03/08/24 [...] Role Performed Anesthesiologist of Surgeon - Primary Breaker Mechanic - Primary Record Time In 03/08/24 09:48:00 [...] (If Applicable) PreOp Antibiotic No Time Out Luciano Grace MD, Given Participants Mandi Glez MD, Tammy Santos RN, Schafer CST, Alexandria M Time Out Complete 03/08/24 09:49:00 Outcomes Met? [...] and tissue Entry 1 Skin Integrity Intact, [place], Warm, & Skin Abnormality No Dry Outcomes [...] Resting at Side Right Arm Position Resting at Side Left Leg Position Extended Right Leg Position Extended Positioning Device Pillow Under Head Large Press Points Checked Yes By Tammy Santos RN Outcomes Met? Yes Last Modified By: Tammy Santos RN 03/08/24 10:10:28 Post-Care Text: The patient is free from signs and symptoms of injury related to positioning Patient Care Devices FT Pre-Care Text: Implements protective measures to prevent skin/ tissue injury due to thermal or mechanical sources Entry 1 Entry 2 Equipment Type ENDOSCOPY VIDEO SYSTEM MONITOR CHARGE SURGERY Equipment Number [id number] E1 Equipment Setting Outcomes Met? Yes Yes Last Modified By: Tamym Santos RN, RN, Angela 03/08/24 09:56:53 03/08/24 09:56:53 Post-Care Text: The patient is free from signs and symptoms of injury caused by extraneous objects Transport To OR FT Pre-Care Text: Transports according to individual needs. Evaluates for signs and symptoms of skin and tissue injury as a result of transfer or transport Entry 1 Via Cart By Tammy Santos RN Safety Precautions Side Rails Up Outcomes Met? Yes Last Modified By: Tammy Santos RN 03/08/24 09:56:58 Post-Care Text: The patient is free from signs and symptoms of injury related to transfer/transport Departure From OR FT Pre-Care Text: Transports according to individual needs. Evaluates for signs and symptoms of skin and tissue injury as a result of transfer or transport. Entry 1 Via Cart Safety Precautions Side Rails Up PostOp Destination PACU Transported By Tammy Santos RN Patient Status Stable Skin. Condition Intact, [place], Warm, & Dry Airway Maintenance Oxygen in Use? No Airway Device N/A Outcomes Met? Yes Last Modified By: Tammy Santos RN 03/08/24 09:57:20 Post-Care Text: The patient is free from signs and symptoms of injury related to transfer/transport General Comments: Report given to FACILITIES ENGINEERING MANAGER/AW allied health instructor Administration FT Pre-Care Text: Verifies allergies, administers prescribed medications and solutions, administers prescribed antibiotic therapy and immunizing agents as ordered, evaluates response to medications Administers prescribed medications and solutions Entry 1 Expiration Date Yes Outcomes Met? Yes Verified Last Modified By: Tammy Santos RN 03/08/24 09:57:26 Post-Care Text: The patient received appropriate medication(s) safely administered during the perioperative period For Borja-Kennedy please see scanned medication reconcilliation form for medications used at the field during the procedure. Cultures & Specimens FT Pre-Care Text: Manages specimen handling and disposition Manages culture specimen collection Entry 1 Cultures Ordered n/a Specimens Ordered Yes Specimen Disposition Designated OR Area Frozen Section Times Outcomes Met? Yes Last Modified By: Tammy Santos RN 03/08/24 10:10:49 Post-Care Text: The patient is free from signs and symptoms of injury caused by extraneous objects The patient is free from signs and symptoms of infection Sign Out FT Entry 1 Before Patient Leaves OR Nurse verbally Yes Nurse verbally n/a confirms with the confirms with the team the name of team that the procedure(s) instrument, sponge, recorded and needle counts are correct (or N/A) Nurse verbally Yes Nurse verbally Yes confirms with the confirms with the team how the team whether there specimen is labeled are any equipment (including patient problems to be name), if applicable addressed Sign Out Complete 03/08/24 10:13:00 Last Modified By: Tammy Santos RN 03/08/24 10:14:45 Case Comments <None> Finalized By: Liza Zamora CST Document Signatures Signed By: Tammy Santos RN 03/08/24 10:17 Tammy Santos RN 03/08/24 10:16 Liza Zamora CST 03/09/24 10:12 MAIN OR PACU I RECORD Observed: 03/08/20 9:54 AM Status: F Source: [facility] REPOSITORY Main OR PACU I Record PACU Phase I Document Type FT Summary Primary Physician: Mandi Glez MD Finalized Date/Time: 03/08/24 11:14:03 Pt. Name: ELGIN NORWOOD Glenroy Glaser/Sex: 1940 Female Med Rec #: [id number] Physician: Mandi Glez MD Financial #: [id number] Pt. Type: O Room/Bed: / Admit/Disch: 03/08/24 [...] Jhaveri RN Document Signatures Signed By: Yoanna Jhvaeri RN 03/08/24 11:14 OPERATIVE REPORT Observed: 03/08/2024 9:48 AM Status: C Source: [facility] REPOSITORY Operative Report Patient: ELGIN NORWOOD Age: 83 years Sex: Female : 1940 Associated Diagnoses: None Author: Mandi Glez MD Preoperative Information Chief compliant/Indication for procedure: Abnormal CT scan Chief Complaint as above Review of Systems All systems reviewed, negative except as mentioned above Physical Examination Vital Signs (last 24 hrs) Last Charted Temp Temporal 36.7 DegC (MAR 08 08:46) Heart Rate Monitored 88 bpm (MAR 08 08:46) SBP 134 mmHg (MAR 08 08:46) DBP 70 mmHg (MAR 08 08:46) Weight 87.3 kg (MAR 08 08:46) General: in Nad Abdomen: Soft, NTND Impression and Plan Diagnosis: Abnormal CT scan Sigmoidoscopy Result Comment: Electronical ly Signed By: Mandi Glez MD\.br\Date and Time Signed: 03/08/24 09:49 EDT OPERATIVE REPORT Observed: 03/08/2024 9:48 AM Status: C Source: [facility] REPOSITORY H&P Update Patient: ELGIN NORWOOD Age: 83 years Sex: Female : 1940 Associated Diagnoses: None Author: Mandi Glez MD Preoperative Information Chief compliant/Indication for procedure: Abnormal CT scan Chief Complaint as above Review of Systems All systems reviewed, negative except as mentioned above Physical Examination Vital Signs (last 24 hrs) Last Charted Temp Temporal 36.7 DegC (MAR 08 08:46) Heart Rate Monitored 88 bpm (MAR 08 08:46) SBP 134 mmHg (MAR 08 08:46) DBP 70 mmHg (MAR 08 08:46) Weight 87.3 kg (MAR 08 08:46) General: in Nad Abdomen: Soft, NTND Impression and Plan Diagnosis: Abnormal CT scan Sigmoidoscopy H&P MAIN OR PREOPERATIVE RECORD Observed: 9:30 AM Status: F Source: [facility] REPOSITORY Main OR Preoperative Record Holding Area Document Type FT Summary Primary Physician: Mandi Glez MD Finalized Date/Time: 03/08/24 08:51:04 Pt. Name: CUCOELGIN/Sex: 1940 Female Med Rec #: [id number] Physician: Mandi Glez MD Financial #: [id number] Pt. Type: O Room/Bed: / Admit/Disch: 03/08/24 [...] completed prep at 0530 and remained NPO since/ELENA,RN Finalized By: Ysabel Kelly RN Document Signatures Signed By: Ysabel Kelly RN 03/08/24 08:51 PROGRESS NOTE-PHYSICIAN Observed: 2023 10:46 AM Status: F Source: [facility] REPOSITORY Progress Note-Physician Patient: ELGIN NORWOOD Age: 83 years Sex: Female : [...] CT of the abdomen / SNOMED CT 8117872521 / Confirmed Cholelithiasis / SNOMED CT 308879845 / Confirmed Esophageal dysmotility / SNOMED CT 380394596 / Confirmed Esophageal dysphagia / SNOMED CT 98722552 / Confirmed History of gastric surgery / SNOMED CT 5221727803 / Confirmed Physical Examination Vital Signs 02/03/2024 [...] Systolic Blood Pressure 112 mmHg Diastolic Blood Pressure 73 mmHg Blood Pressure Location Left arm Mean Arterial Pressure, Cuff 86 mmHg SpO2 99 % Pain Assessment Assessment Anesthetic outcome No anesthetic complications noted. Adequate pain relief. Review / Management Condition Plan Transfer/Discharge: Patient exhibiting no signs of N/V. Hydration status is adequate. Result Comment: Electronical ly Signed By: Tiago Peterson DO\.br\Date and Time Signed: 02/03/24 10:46 EDT DISCHARGE INSTRUCTIONS Observed: 024 10:38 AM Status: F Source: [facility] REPOSITORY Discharge Instructions ELGIN NORWOOD :1940 Visit Date:02/03/2024 Inpatient Discharge Instructions Your Care Team Admitting Physician - Mandi Glez MD Referring Physician - Mandi Glez MD Reason for Your Visit ESOPHAGEAL DYSMOTILITY, ESOPHAGEAL [...] Date and Time of Follow-up Appt. Where: [address], [address] [place] [address]- [phone] Medications What How Much When Instructions Next [...] including vitamins, herbs, eye drops, creams, and dfky-eii-fccdlhz medicines. ? Any problems you or family [...] tells you to take them. ? Taking yigi-iok-hmyokgn medicines, vitamins, herbs, and supplements. ? Follow [...] Follow these instructions at home: ? Take viny-dzg-wvubqhn and prescription medicines only as told by [...] blocked or narrowed part of the esophagus. ? Plan to have a responsible adult take you home from the hospital or clinic. ? For this procedure, a numbing medicine may be sprayed into the back of your throat, or you may gargle the medicine. ? Do not drive or operate machinery until your health care provider says that it is safe. This information is not intended to replace advice given to you by your health care provider. Make sure you discuss any questions you have with your health care provider. Document Revised: 10/24/2020 Document Reviewed: 10/24/2020 [employer] Patient Education ? 2022 [employer]. Common Emergency Awareness Tips IS IT A STROKE? Act FAST and Check for these signs: FACE Does the face look uneven? ARM Does one arm drift down? SPEECH Does their speech sound strange? TIME Call at any sign of stroke Heart Attack Signs Chest discomfort: Most heart attacks involve discomfort in the center of the chest and lasts more than a few minutes, or goes away and comes back. It can feel like uncomfortable pressure, squeezing, fullness or pain. Discomfort in upper body: Symptoms can include pain or discomfort in one or both arms, back, neck, jaw or stomach. Shortness of breath: With or without discomfort. Other signs: Breaking out in a cold sweat, nausea, or lightheaded. Remember, MINUTES DO MATTER. If you experience any of these heart attack warning signs, call to get immediate medical attention! Patient Survey You may receive a survey in the mail asking you about your stay with us. We want to hear from you, please share your experience with us by completing your survey. Thank you for choosing [facility]. Kristan Award Nomination The KRISTAN (Diseases Attacking the Immune SYstem) Award is an international recognition program that honors and celebrates the skillful, compassionate care nurses provide every day. Anyone who experiences or observes amazing care being provided by a nurse is encouraged to submit a nomination. To nominate your nurse, use your smart phone to scan the QR code below. Patient Portal You may access all of your results and other medical record information on our secure patient portal. If you are not signed up for this yet, please contact [phone] at [phone] to get signed up today. Patient Name: ELGIN NORWOOD I have received this information and my questions have been answered. Patient/Dredge Master Name: Patient/Dredge Master Signature: Relationship to Patient: Witness Name/Signature: Date: Result Comment: Electronical ly Signed By: Krissy COTA, Saida\.br\Date and Time Signed: 02/03/24 10:39 EDT PATIENT EDUCATION - TEXT Observed: 02/02 10:38 AM Status: F Source: [facility] REPOSITORY Patient Education - Text Gastroenterology Esophageal Dilatation Esophageal [...] including vitamins, herbs, eye drops, creams, and bnve-wnl-ivcdntd medicines. ? Any problems you or family [...] tells you to take them. ? Taking qqzn-pal-ygjtfxj medicines, vitamins, herbs, and supplements. ? Follow [...] Follow these instructions at home: ? Take fzvz-wps-kxjejqo and prescription medicines only as told by [...] blocked or narrowed part of the esophagus. ? Plan to have a responsible adult take you home from the hospital or clinic. ? For this procedure, a numbing medicine may be sprayed into the back of your throat, or you may gargle the medicine. ? Do not drive or operate machinery until your health care provider says that it is safe. This information is not intended to replace advice given to you by your health care provider. Make sure you discuss any questions you have with your health care provider. Document Revised: 10/24/2020 Document Reviewed: 10/24/2020 [email or web address] Patient Education ? 2022 [employer]. OPERATIVE REPORT Observed: 02/03/2024 10:30 AM Status: F Source: [facility] REPOSITORY Operative Report Patient: ELGIN NORWOOD Age: 83 years Sex: Female : 1940 Associated Diagnoses: None Author: Mandi Glez MD Pre-Procedure Procedure Date 02/03/2024 10:30:00 . [...] The procedure was aborted Images Procedure images: Rec1_hd_video_2023__[id number].jpg . Post-Procedure Complications: none. Estimated blood loss: none. Specimens: none. Devices/ implants: none left in place. Impression and Plan poor bowel prep Recommendations: Repeat colonoscopy:: Next available with 2-day prep . Follow-up:: in clinic as scheduled. Diet:: Previous. Medication resumption:: Continue current medications, Avoid NSAIDs. Return to activities:: After 24 hours. Education and Follow-up: Counseled: Patient, Family. Result Comment: Electronical ly Signed By: Mandi Glez MD\.br\Date and Time Signed: 02/03/24 10:31 EDT Other Comment: Missing Attac hment - attachment storage system not supported [id number] Can be viewed in source system OPERATIVE REPORT Observed: 02/03/2024 10:28 AM Status: C Source: [facility] REPOSITORY Operative Report Patient: ELGIN NORWOOD Age: 83 years Sex: Female : [...] bulb. otherwise, normal duodenum. Images Procedure images: Rec_hd_video____26_067.jpg Rec_hd_video____34_629.jpg Rec_hd_video____43_827.jpg Rec1_hd_video____55_948.jpg Rec_hd_video____13_375.jpg Rec_hd_video____35_569.jpg Rec1_hd_video__T__31_722.jpg Rec1_hd_video__T09_28_[id number]_158.jpg Rec1_hd_video__T09_29_[id number]_870.jpg Rec1_hd_video__T09_29_[id number]_284.jpg Rec1_hd_video__T09_31_02_072.jpg Rec1_hd_video__T09_32_03_161.jpg . Post-Procedure Complications: none. Estimated blood loss: none. Specimens: None. Devices/ implants: none left in place. Impression and Plan Schatzki's ring and esophageal stricture status post dilation Gastropathy Duodenitis Recommendations: -Liquid then soft diet today, advance as tolerated tomorrow -Resume home medications -Await pathology results, follow in GI clinic in 1-2 after discharge for Increase omeprazole to twice a day Result Comment: Electronical ly Signed By: Amaris VALDEZ, Mandi Yeager.br\Date and Time Signed: 02/03/24 10:30 EDT Other Comment: Missing Attac hment - attachment storage system not supported [id number] Can be viewed in source system Missing Attachment - attachment storage system not supported [id number] Can be viewed in [facility] Attachment - attachment storage system not supported [id number] Can be viewed in source systemMissing Attachment - attachment storage system not supported [id number] Can be viewed in source systemMissing Attachment - attachment storage system not supported [id number] Can be viewed in [facility] Attachment - attachment storage system not supported [id number] Can be viewed in [facility] Attachment - attachment storage system not supported [id number] Can be viewed in source systemMissing Attachment - attachment storage system not supported [id number] Can be viewed in source systemMissing Attachment - attachment storage system not supported [id number] Can be viewed in source systemMissing Attachment - attachment storage system not supported [id number] Can be viewed in source systemMissing Attachment - attachment storage system not supported [id number] Can be viewed in source systemMissing Attachment - attachment storage system not supported [id number] Can be viewed in source system 07 ADDENDUM REPORT Observed: 02/03/2024 10:21 AM Status: F Source: [facility] REPOSITORY [facility] [place] [address]- Surgical Pathology Report Collected Date/Time: 02/03/2024 10:21 EDT Pathologist: Meng Vyas MD Received Date/Time: 02/03/2024 11:48 EDT Amaris VALDEZ, Mandi Glez MD, Mandi Red 07 Addendum Report - 02/05/2024 16:13 EDT - Auth (Verified) Addendum H. Pylori immunostain is negative for H. Pylori. (Electronic Signature) Traci Morrow MD 02/05/2024 16:13 Addendum Reason H. Pylori [...] is entirely submitted in one cassette. (DC) DC:[facility] Surgical Pathology Report Collected Date/Time: 02/03/2024 10:21 EDT Pathologist: Meng Vyas MD Received Date/Time: 02/03/2024 11:48 EDT Amaris VALDEZ, Mandi Bond MD Microscopic Description A&B: Microscopic examination performed unless gross only specified. The use of one or more reagents in the above tests is regulated as an analyte specific reagent (ASR). The test or tests are ordered following initial H&E microscopic examination. The performance characteristics were determined by the Laboratory [facility]. They have not been cleared or approved by the US Food and Drug Administration. The FDA has determined that such clearance or approval is not necessary. These tests are used for clinical purposes. They should not be regarded as investigational or for research. Appropriate positive and negative controls are performed and are acceptable. Performed By: #### CD:[id number] #### [facility] [address] [place] [address] SURGICAL PATHOLOGY REPORT Observed: 01/20 10:21 AM Status: F Source: [facility] REPOSITORY [facility] r [address] [place] [address]- Surgical Pathology Report Collected Date/Time: 02/03/2024 10:21 [...] is entirely submitted in one cassette. (DC) DC:[facility] Microscopic Description A&B: Microscopic examination performed unless gross only specified. The use of one or more reagents in the above tests is regulated as an analyte specific reagent (ASR). The test or tests are ordered following initial H&E microscopic examination. The performance characteristics were determined by the Laboratory [facility]. They have not been cleared or approved by the US Food and Drug Administration. The FDA has determined that such clearance or approval is not necessary. These tests are used for clinical purposes. They should not be regarded as investigational or for research. Appropriate positive and negative controls are performed and are acceptable. Performed By: #### [id number] # ### [address] [address] SURGICAL PATHOLOGY REPORT Observed: 01/20 10:21 AM Status: F Source: [facility] REPOSITORY [facility] r [address] [place] [address]. [place] [address]- Surgical Pathology Report Collected Date/Time: 02/03/2024 10:21 [...] is entirely submitted in one cassette. (DC) DC:[facility] Microscopic Description A&B: Microscopic examination performed unless gross only specified. The use of one or more reagents in the above tests is regulated as an analyte specific reagent (ASR). The test or tests are ordered following initial H&E microscopic examination. The performance characteristics were determined by the Laboratory [facility]. They have not been cleared or approved by the US Food and Drug Administration. The FDA has determined that such clearance or approval is not necessary. These tests are used for clinical purposes. They should not be regarded as investigational or for research. Appropriate positive and negative controls are performed and are acceptable. Performed By: #### [id number] # ### [facility] [address] [place] [address] 07 ADDENDUM REPORT Observed: 02/03/2024 10:21 AM Status: F Source: [facility] REPOSITORY [facility] [address] [place] [address]- Surgical Pathology Report Collected Date/Time: 02/03/2024 10:21 EDT Pathologist: Meng Vyas MD Received Date/Time: 02/03/2024 11:48 EDMandi Cortes MD, MD, Mohamad A. 07 Addendum Report - 02/05/2024 16:13 EDT - Auth (Verified) Addendum H. Pylori immunostain is negative for H. Pylori. (Electronic Signature) Traci Morrow MD 02/05/2024 16:13 Addendum Reason H. Pylori [...] is entirely submitted in one cassette. (DC) DC:[facility] Surgical Pathology Report Collected Date/Time: 02/03/2024 10:21 EDT Pathologist: Meng Vyas MD Received Date/Time: 02/03/2024 11:48 EDT Amaris VALDEZ, Mandi Bond MD Microscopic Description A&B: Microscopic examination performed unless gross only specified. The use of one or more reagents in the above tests is regulated as an analyte specific reagent (ASR). The test or tests are ordered following initial H&E microscopic examination. The performance characteristics were determined by the [facility] of [facility]. They have not been cleared or approved by the US Food and Drug Administration. The FDA has determined that such clearance or approval is not necessary. These tests are used for clinical purposes. They should not be regarded as investigational or for research. Appropriate positive and negative controls are performed and are acceptable. Performed By: #### CD:[id number] #### [facility] [address] [place] [address] MAIN OR PACU I RECORD Observed: 02/03/20 10:16 AM Status: C Source: [facility] REPOSITORY Main OR PACU I Record PACU Phase I Document Type FT Summary Primary Physician: Mandi Glez MD Finalized Date/Time: 02/03/24 16:03:27 Pt. Name: CUCOELGIN D.O.B./Sex: 1940 Female Med Rec #: [id number] Physician: Mandi Glez MD Financial #: [id number] Pt. Type: O Room/Bed: / Admit/Disch: 02/03/24 [...] 02/03/24 10:55 Saida Rey RN 02/03/24 16:03 MAIN OR INTRAOPERATIVE RECORD Observed: 02/03/2024 10:16 AM Status: C Source: [facility] REPOSITORY Main OR Intraoperative Recor d IntraOp Document Type FT Summary Primary Physician: Mandi Glez MD Finalized Date/Time: 02/04/24 08:30:09 Pt. Name: ELGIN NORWOOD/Sex: 1940 Female Med Rec #: [id number] Physician: Mandi Glez MD Financial #: [id number] Pt. Type: O Room/Bed: / Admit/Disch: 02/03/24 [...] RN, Karla Vu Role Performed Anesthesiologist of Breaker Mechanic - Primary Staff - Other Record Time [...] Out Tiago Peterson DO, Robbie Rothman RN, Ang DURAN, Amaris Balbuena MD, Mandi Red Time Out [...] No Outcomes Met? Yes Last Modified By: Robbie Rothman RN 02/03/24 10:14:26 Post-Care Text: The patient is free from signs and symptoms of injury caused by extraneous objects Patient Positioning FT Pre-Care Text: Identifies physical alterations that require additional precautions for procedure-specific positioning, verifies presence of prosthetics or corrective devices, positions the patient, evaluates the patient for signs and symptoms of injury as a result of positioning Entry 1 Procedure SIGMOIDOSCOPY(.), EGD(.) Body Position Lateral, right side up Feet Uncrossed? Yes Left Arm Position Resting at Side Right Arm Position Resting at Side Left Leg Position Extended Right Leg Position Extended Positioning Device Safety Strap, Pillow Under Head Large Press Points Checked Yes By Robbie Rothman RN Outcomes Met? Yes Last Modified By: oRbbie Rothman RN 02/03/24 10:14:36 Post-Care Text: The patient is free from signs and symptoms of injury related to positioning Patient Care Devices FT Pre-Care Text: Implements protective measures to prevent skin/ tissue injury due to thermal or mechanical sources Entry 1 Entry 2 Equipment Type ENDOSCOPY VIDEO SYSTEM MONITOR CHARGE SURGERY Equipment Number [id number] Equipment Setting Outcomes Met? Yes Yes Last Modified By: Robbie Rothman RN, RN, Morgan E 02/03/24 10:14:48 02/03/24 10:14:48 Post-Care Text: The patient is free from signs and symptoms of injury caused by extraneous objects Transport To OR FT Pre-Care Text: Transports according to individual needs. Evaluates for signs and symptoms of skin and tissue injury as a result of transfer or transport Entry 1 Via Cart By Robbie Rothman RN Safety Precautions Side Rails Up Outcomes Met? Yes Last Modified By: Robbie Rothman RN 02/03/24 10:14:55 Post-Care Text: The patient is free from signs and symptoms of injury related to transfer/transport Departure From OR FT Pre-Care Text: Transports according to individual needs. Evaluates for signs and symptoms of skin and tissue injury as a result of transfer or transport. Entry 1 Via Cart Safety Precautions Side Rails Up PostOp Destination PACU Transported By Robbie Rothman RN Patient Status Stable Report Given Saida Rey RN To/Hand Off Communication Skin. Condition Intact, [place], Warm, & Dry Airway Maintenance Oxygen in Use? No Airway Device N/A Outcomes Met? Yes Last Modified By: Robbie Rothman RN 02/03/24 10:28:55 Post-Care Text: The patient is free from signs and symptoms of injury related to transfer/transport General Comments: Report given to PACU nurse MSRN Medication Administration FT Pre-Care Text: Verifies allergies, administers prescribed medications and solutions, administers prescribed antibiotic therapy and immunizing agents as ordered, evaluates response to medications Administers prescribed medications and solutions Entry 1 Expiration Date Yes Outcomes Met? Yes Verified Last Modified By: Robbie Rothman RN 02/03/24 10:15:19 Post-Care Text: The patient received appropriate medication(s) safely administered during the perioperative period For Borja-Kennedy please see scanned medication reconcilliation form for medications used at the field during the procedure. Cultures & Specimens FT Pre-Care Text: Manages specimen handling and disposition Manages culture specimen collection Entry 1 Cultures Ordered n/a Specimens Ordered Yes Specimen Disposition Designated OR Area Frozen Section Times Outcomes Met? Yes Last Modified By: Robbie Rothman RN 02/03/24 10:22:30 Post-Care Text: The patient is free from signs and symptoms of injury caused by extraneous objects The patient is free from signs and symptoms of infection Sign Out FT Entry 1 Before Patient Leaves OR Nurse verbally Yes Nurse verbally n/a confirms with the confirms with the team the name of team that the procedure(s) instrument, sponge, recorded and needle counts are correct (or N/A) Nurse verbally Yes Nurse verbally Yes confirms with the confirms with the team how the team whether there specimen is labeled are any equipment (including patient problems to be name), if applicable addressed Sign Out Complete 02/03/24 10:27:00 Last Modified By: Robbie Rothman RN 02/03/24 10:28:59 Case Comments <None> Finalized By: Liza Zamora CST Document Signatures Signed By: Robbie Rothman RN 02/03/24 10:36 Liza Zamora CST 02/04/24 08:30 MAIN OR PREOPERATIVE RECORD Observed: 10:00 AM Status: C Source: [facility] REPOSITORY Main OR Preoperative Record Holding Area Document Type FT Summary Primary Physician: Mandi Glez MD Finalized Date/Time: 02/03/24 09:17:23 Pt. Name: ELGIN NORWOOD Glenroy Glaser/Sex: 1940 Female Med Rec #: [id number] Physician: Mandi Glez MD Financial #: [id number] Pt. Type: O Room/Bed: / Admit/Disch: 02/03/24 [...] reason Last Modified By: Saida Rey RN 08/14/24 09:03:49 Finalized By: Saida Rey RN Document Signatures Signed By: Saida Rey RN 02/03/24 09:03 Saida Rey RN 02/03/24 09:17 PROGRESS NOTE-PHYSICIAN Observed: 2023 9:22 AM Status: F Source: [facility] REPOSITORY Progress Note-Physician Patient: ELGIN NORWOOD Age: 83 years Sex: Female : [...] CT of the abdomen / SNOMED CT 1410849385 / Confirmed Cholelithiasis / SNOMED CT 288851909 / Confirmed Esophageal dysmotility / SNOMED CT 374359840 / Confirmed Esophageal dysphagia / SNOMED CT 80407948 / Confirmed History of gastric surgery / SNOMED CT 8066202624 / Confirmed, Active Problems (5) Abnormal CT [...] Systolic Blood Pressure 112 mmHg Diastolic Blood Pressure 73 mmHg Blood Pressure Location Left arm Mean Arterial Pressure, Cuff 86 mmHg SpO2 99 % Vital Signs (last 24 hrs) Last Charted Temp Temporal 36.5 DegC (FEB 02 08:55) Heart Rate Monitored 74 bpm (FEB 02 08:55) Resp Rate 13 br/min (FEB 02 08:55) SBP 112 mmHg (FEB 02 08:55) DBP 73 mmHg (FEB 02 08:55) Airway: Mallampati classification: II (soft palate, fauces, uvula visible). Distance: Mentohyoid, Interincisive, Thyromental, Mentosternal, Adequate. HENT: Normocephalic. Respiratory: Lungs are clear to auscultation. Cardiovascular: Regular rhythm. Gastrointestinal: Soft. Review / Management Results review Plan [place] [employer]esthesi[employer] (ASA) physical status classification: Class II. Anesthetic Preoperative Plan: Anesthesia General. Result Comment: Electronical ly Signed By: Tiago Peterson DO\.br\Date and Time Signed: 02/03/24 09:23 EDT AMBULATORY VISIT SUMMARY Observed: 12/20 2:15 PM Status: F Source: [facility] REPOSITORY Ambulatory Visit Summary ELGIN NORWOOD :1940 Visit Date:12/21/2023 Ambulatory Visit Instructions [...] you for choosing us for your care. GASTROENTEROLOGY OFFICE/CLINIC NOTE Observed: 12/21/2023 1:57 PM Status: C Source: [facility] REPOSITORY Gastroenterology Office/Clin ic Note Chief Complaint ref by cailin- nausea [...] ago Tobacco Use:., 12/21/2023 Family History Cancer: Mother and Father. Diabetes mellitus type 2: Mother. Heart disease: Mother. 6. Abnormal CT scan of the GI tract Code for abnormal CT is R93.3. Result Comment: Electronical ly Signed By: Dania Antonio\Date and Time Signed: 03/02/24 09:23 EDT PHYSICIAN REFERRAL Observed: 12/07/2023 4:19 PM Status: F Source: [facility] REPOSITORY [id number]#1.00TIFF ALLERGIES DATE TYPE / CODE NAME / CODE REACTION SEVERITY SOURCE JONATHON750077829(S NOMED CT) naproxen 391362256~[id number] [facility] JONATHON412128931(S NOMED CT) Benztropine Mesylate 587323656~896452155 [facility] JONATHON596325094(S NOMED CT) Vioxx [id number] [facility] ENCOUNTERS ADMIT/DISCHARGE ACCOUNT NUMBER ADMITTING ENCOUNTER CLASS LOCATION SOURCE 09/14/2024/09/15/19 [id number] Ambulatory Building:[facility] 09/07/2024/09/08/19 [id number] Ambulatory Building:[facility] 08/13/2024/08/13/19 [id number] [facility] 07/29/2024/07/29/19 25 [id number] Ambulatory Building:NOM S FNRPULM [facility] 07/25/2024/07/25/19 25 [id number] Ambulatory Building:CIF AMMED [facility] 07/21/2024/07/21/19 25 [id number] Ambulatory Building:NOM S CI POD [facility] 07/12/2024/07/12/19 25 [id number] Ambulatory Building:CIE NT [facility] 06/10/2024/06/10/20 24 [id number] Ambulatory Building:CIF [facility] 05/16/2024/05/16/20 24 [id number] Ambulatory Building:CIF [facility] 05/03/2024/05/03/20 24 [id number] Ambulatory Building:FNR IMG [facility] 05/02/2024/05/02/20 24 [id number] Ambulatory Building:F [facility] 04/28/2024/04/28/20 24 [id number] Ambulatory Building:NOM S CI POD [facility] 03/08/2024/03/08/20 24 [id number] Mandi Glez Ambulatory FTMCBuilding :[facility] 02/18/2024/02/18/20 24 [id number] Ambulatory Building:NOM S CI POD [facility] 02/03/2024/02/03/20 24 [id number] Mandi Glez Ambulatory FTMCBuilding :[facility] 01/28/2024/01/28/20 24 [id number] Ambulatory Building:[facility] 01/20/2024/01/20/20 24 [id number] Ambulatory Building:[facility] 12/28/2023/12/28/19 24 [id number] Ambulatory Building:F [facility] 12/21/2023/12/21/19 24 [id number] Ambulatory [facility] DHBuilding:Saúl carrenoAurora DHRoom: CD:[id number] [facility] 12/14/2023/12/14/19 24 [id number] [facility] 12/07/2023 [id number] [facility] 11/23/2023/11/23/19 24 [id number] Ambulatory Building:[facility] 11/02/2023/11/02/19 24 [id number] Ambulatory Building:[facility] 10/26/2023/10/26/19 24 [id number] Ambulatory Building:[facility] 10/12/2023/10/12/19 24 [id number] Ambulatory Building:[facility] PAYERS ENCOUNTER GUARANTOR PAYER SUBSCRIBER SOURCE 09/14/2024 ELGIN WOLFB: [address]Tel: () Primary Insurance:[employer] MEDICARE ADVANTAGEPolicy Number: [id number] Date:2022-10-20 ELGIN WOLFB: [id number] [place] [id number] [facility]IC 09/07/2024 ELGIN WOLFB: [place] [id number]: () Primary Insurance:HUMANA MEDICARE ADVANTAGEPolicy Number: [id number] Date:2022-10-20 ELGIN NORWOODDOB: [id number] [place] [id number] [facility] EPIC 07/29/2024 ELGIN WOLFB: [place] [id number]: (HP) Primary Insurance:HUMANA MEDICARE ADVANTAGEPolicy Number: [id number] Date:2022-10-20 ELGIN NORWOODDOB: [id number] [address] [address] [facility] 07/25/2024 ELGIN SALAZARESDOB: [place] [id number]: (HP) Primary Insurance:HUMAN MEDICARE ADVANTAGEPolicy Number: [id number] Date:2022-10-20 ELGIN Tim DALESDOB: [id number] [address] [facility] EP[facility] 07/21/2024 ELGIN SALAZARESDOB: [place] [id number]: (HP) Primary Insurance:HUMANA MEDICARE ADVANTAGEPolicy Number: [id number] Date:2022-10-20 ELGIN SALAZARESDOB: [id number] [place] [id number] [facility] EP[facility] 07/12/2024 ELGIN Tim DALESDOB: [place] [id number]: (HP) Primary Insurance:HUMANA MEDICARE ADVANTAGEPolicy Number: [id number] Date:2022-10-20 ELGIN SALAZARESDOB: [id number] [place] [id number] [facility] EP[facility] 06/10/2024 ELGIN Tim DALESDOB: [place] [id number]: (HP) Primary Insurance:HUMANA MEDICARE ADVANTAGEPolicy Number: [id number] Date:2022-10-20 ELGIN Tim DALESDOB: [id number] [address] [facility] EPIC 05/16/2024 ELGIN NORWOODDOB: [place] [id number]: (HP) Primary Insurance:HUMANA MEDICARE ADVANTAGEPolicy Number: [id number] Date:2022-10-20 ELGIN NORWOODDOB: [id number] [place] [id number] [facility] 05/03/2024 ELGIN NORWOODDOB: [place] [id number]: (HP) Primary Insurance:HUMANA MEDICARE ADVANTAGEPolicy Number: [id number] Date:2022-10-20 ELGIN NORWOODDOB: [id number] [place] [id number] [facility] EPIC 05/02/2024 ELGINDORON NORWOODDOB: [place] [id number]: (HP) Primary Insurance:HUMANA MEDICARE ADVANTAGEPolicy Number: [id number] Date:2022-10-20 ELGIN NORWOODDOB: [id number] [place] [id number] [facility] 04/28/2024 ELGINDORON NORWOODDOB: [place] [id number]: (HP) Primary Insurance:HUMANA MEDICARE ADVANTAGEPolicy Number: [id number] Date:2022-10-20 ELGINDORON NORWOODDOB: [id number] [place] [id number] [facility] 03/08/2024 ELGIN Glenroy NORWOODDOB: [facility] 228Tel: ~([phone] (HP) Primary Insurance:HUMANAPolicy Number: [id number] Date:[id number] [address] [address]RM: ELGIN SCOTT [facility] 02/18/2024 ELGIN SALAZARESDOB: STATE [address] [address]Sls: (HP) Primary Insurance:HUMANA MEDICARE ADVANTAGEPolicy Number: [id number] Date:2022-10-20 ELGIN Tim DALESDOB: [id number] [address] [facility] 02/03/2024 ELGIN Glenroy DALESDOB: [address]Tel: ~([phone] (HP) [facility] Number: [id number] Date:7118-27-24TH [address] [address]YT: ELGIN SCOTT [facility] 01/28/2024 ELGIN iTm DALESDOB: STATE [address] [address]Ckb: (HP) Primary Insurance:HUMANA MEDICARE ADVANTAGEPolicy Number: [id number] Date:2022-10-20 ELGIN J DALESDOB: [id number] [address] [facility] 01/20/2024 ELGIN J DALESDOB: STATE [address] [address]Ipa: (HP) Primary Insurance:HUMANA MEDICARE ADVANTAGEPolicy Number: [id number] Date:2022-10-20 ELGIN Glenroy DALESDOB: [id number] STATE [address] [address] [facility] 12/28/2023 ELGIN SALAZARESDOB: STATE [address] [address]Nsd: (HP) Primary Insurance:HUMANA MEDICARE ADVANTAGEPolicy Number: [id number] Date:2022-10-20 ELGIN NORWOODDOB: [id number] [address] [address] [facility] 12/21/2023 ELGIN SALAZARRUBADOB: STATE [address]Tel: ~([phone] (HP) Primary Insurance:[facility] Centericy Number: [id number] Date:[id number] [address] [place] [address]UO: ELGIN SCOTT [facility] 12/14/2023 ELGIN WOLFB: STATE [address] [address]Rfl: (HP) Primary Insurance:HUMANA MEDICARE ADVANTAGEPolicy Number: [id number] Date:2022-10-20 ELGIN J MARTINRUBADOB: [id number] STATE [address] [address] [facility] 11/23/2023 ELGIN SALAZARRUBADOB: [place] [id number]: (HP) Primary Insurance:HUMANA MEDICARE ADVANTAGEPolicy Number: [id number] Date:2022-10-20 ELGIN SALAZARRUBADOB: [id number] STATE [address] [address] [facility] 11/02/2023 ELGIN SALAZARRUBADOB: [address] [address]Ubf: (HP) Primary Insurance:HUMANA MEDICARE ADVANTAGEPolicy Number: [id number] Date:2022-10-20 ELGIN WOLFB: [id number] [address] [address] [facility] 10/26/2023 ELGIN WOLFB: [id number] [address] [address]Bqc: (HP) Primary Insurance:HUMANA MEDICARE ADVANTAGEPolicy Number: [id number] Date:2022-10-20 ELGIN WOLFB: [id number] [address] [address] [facility] 10/12/2023 ELGIN WOLFB: [id number] [address] [address]Nad: () Primary Insurance:HUMANA MEDICARE ADVANTAGEPolicy Number: [id number] Date:2022-10-20 ELGIN WOLFB: [id number] [address] [address] [facility] EP[facility]
[2024-09-23 06:29] LABS: Lymphocytes Absolute Manual 0.31 10^3/uL (1.20-3.80); Segmented Neut Absolute Manual 4.78 10^3/uL (1.4-6.5)
[2024-09-23 06:38] LABS: Alanine Aminotransferase 27 U/L (14-59); Albumin Globulin Ratio 0.9; Alkaline Phosphatase 100 U/L (46-116); Anion Gap 15.6; Aspartate Amino Transferase 55 U/L (15-37); BUN Creatinine Ratio 21.8; Bilirubin Total 0.7 mg/dL (0.2-1.0); Chloride 95 mmol/L (98-107); Estimated GFR (African America >60 (>=60 mL/min/1.73m^2); Estimated GFR (Non-African Ame >60 (>=60 mL/min/1.73m^2); Globulin 3.4 g/dL; Glucose 158 mg/dL (74-106); Magnesium 2.1 mg/dL (1.8-2.4); Potassium 4.6 mmol/L (3.5-5.1); Sodium 129 mmol/L (136-145); Total Protein 6.4 g/dL (6.4-8.2)
[2024-09-23] MEDS: ONDANSETRON 4 MG RAPDIS TABLET PO (08:28)
[2024-09-23] MEDS: CARVEDILOL 12.5 MG TABLET PO ×2 (08:28→21:14)
[2024-09-23] MEDS: ASPIRIN 81 MG TAB.CHEW PO (08:28)
[2024-09-23] MEDS: GABAPENTIN 100 MG CAPSULE 200 MG PO ×2 (08:28→21:14)
[2024-09-23] MEDS: ATORVASTATIN CALCIUM 40 MG TABLET PO (08:28)
[2024-09-23] MEDS: CETIRIZINE HCL 10 MG TABLET PO (08:28)
[2024-09-23] MEDS: DULOXETINE HCL 60 MG CAPSULE.DR PO (08:28)
[2024-09-23] MEDS: TORSEMIDE 20 MG TABLET PO (08:29)
[2024-09-23] MEDS: ALPRAZOLAM 0.25 MG TABLET PO ×2 (08:29→19:56)
[2024-09-23] MEDS: LISINOPRIL 5 MG TABLET PO (08:29)
--- NOTE | 2024-09-23 10:35 | CM.NOTE ---
Rounds made with Dr. Deutsch. Dr. Deutsch reviews plan of care with Jaquelin. Medications to be adjusted.
--- NOTE | 2024-09-23 11:19 | P.HP_ITS ---
HPI H&P: HPI History of Present Illness Chief complaint: WEAKNESS, HYPONATREMIA, HYPOKALEMIA Narrative: 84 y/o female to ER c/o nausea and pain. Reports overall doesn't feel well. Pain in both hips but left worse than right. Pain with walking and standing. Severe nausea. To ER 09/20 for nausea and labs showed sodium 129. Given IV fluids and discharged. Continued to not feel well and returned to ER. Labs showed sodium 123. CT head negative. Chest x-ray and UA negative. Admitted for hyponatremia. Started IV fluids. Review of home medication shows patient with both lasix and torsemide listed. Lasix stopped. Review of outpatient chart shows patient with history of CHF. Echo 05/2024 showed EF 60%. PCP gave 7 days of zaroxolyn 09/14. C/o severe hip pain after admission and x-ray showed OA left hip. Started solu-medrol. Opioid HPI Opioid Management Most Recent Pain and Opioid Data: Last Pain Scale 7 09/23/24 10:00 09/23/24 Last Pain Intensity 7 09/23/24 07:12 09/23/24 Last Pain Assessment 09/23/24 10:00 Last MAR Pain Assessment 09/23/24 05:55 Last ORT Total Score 0 09/22/24 14:02 09/22/24 Last ORT Risk Category Low Risk 09/22/24 14:02 09/22/24 Review of Systems ROS Constitutional Denies: fever, chills or fatigue Cardiovascular Denies: chest pain, palpitations or edema Respiratory Denies: shortness of breath, cough or wheezing Gastrointestinal Reports: nausea; Denies: abdominal pain, vomiting or diarrhea Genitourinary Denies: painful urination [facility] Medical History (Updated 09/23/24 @ 10:38 by Kenny Deutsch MD) Primary osteoarthritis of right hip ?M16.11 - Unilateral primary osteoarthritis, right hip (ICD-10) Abdominal bloating ?R14.0 - Abdominal distension (gaseous) (ICD-10) Anxiety ?F41.9 - Anxiety disorder, unspecified (ICD-10) COPD exacerbation ?J44.1 - Chronic obstructive pulmonary disease with (acute) exacerbation (ICD-10) Acute costochondritis ?M94.0 - Chondrocostal junction syndrome [Tietze] (ICD-10) Fall ?W19.XXXA - Unspecified fall, initial encounter (ICD-10) Contusion of rib on right side ?S20.211A - Contusion of right front wall of thorax, initial encounter (ICD- 10) Contusion of knee, left ?S80.02XA - Contusion of left knee, initial encounter (ICD-10) Constipation ?K59.00 - Constipation, unspecified (ICD-10) Chest wall pain ?R07.89 - Other chest pain (ICD-10) Abdominal pain ?R10.9 - Unspecified abdominal pain (ICD-10) No problem, feared complaint unfounded ?Z71.1 - Person with feared health complaint in whom no diagnosis is made (ICD-10) Grief reaction ?F43.21 - Adjustment disorder with depressed mood (ICD-10) Dehydration ?E86.0 - Dehydration (ICD-10) Head injury ?S09.90XA - Unspecified injury of head, initial encounter (ICD-10) COPD exacerbation ?J44.1 - Chronic obstructive pulmonary disease with (acute) exacerbation ( ICD-10) Nausea ?R11.0 - Nausea (ICD-10) Hypothyroidism ?E03.9 - Hypothyroidism, unspecified (ICD-10) HLD (hyperlipidemia) ?E78.5 - Hyperlipidemia, unspecified (ICD-10) Insufficient home care support ?Z74.2 - Need for assistance at home and no other household member able to render care (ICD-10) Muscular deconditioning ?R29.898 - Other symptoms and signs involving the musculoskeletal system (IC D-10) CHF (congestive heart failure) ?I50.9 - Heart failure, unspecified (ICD-10) Surgical History H/O hysterectomy for benign disease ?Z90.710 - Acquired absence of both cervix and uterus (ICD-10) Previous back surgery ?Z98.890 - Other specified postprocedural states (ICD-10) H/O hernia repair ?Z98.890 - Other specified postprocedural states (ICD-10) ?Z87.19 - Personal history of other diseases of the digestive system (ICD-10) Family History (Updated 09/22/24 @ 12:48 by Agnieszka Hilliard) Mother Family history of cancer Sister Family history of diabetes mellitus Social History (Updated 09/22/24 @ 12:48 by Agnieszka Hilliard) Within the past year, how often did you have a drink containing alcohol: never Score interpretation: A score less than 3 is consistent with normal alcohol consumption. 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 Known occupational exposures/hazards: No Highest level of school completed/degree received: 7th grade In a typical week, how many times do you talk on the telephone with family, friends, or neighbors: twice per week How often do you get together with friends or relatives: twice per week How often do you attend buddhist or zoroastrian services: never Little interest or pleasure in doing things: not at all Feeling down, depressed, or hopeless: not at all Feel stressed/tense/nervous/anxious/difficulty sleeping: not at all Meds Home Medications and Allergies Home Medications ?Medication ?Instructions ?Recorded ?Confirmed ?Type alprazolam 0.25 mg tablet 0.25 mg PO BID PRN anxiety 08/02/23 09/22/24 History aspirin 81 mg chewable tablet 81 mg PO DAILY 08/02/23 09/22/24 History (Dalton Chewable Low Dose Aspirin) atorvastatin 40 mg tablet 40 mg PO DAILY 08/02/23 09/22/24 History carvedilol 12.5 mg tablet 12.5 mg PO Q12H 08/02/23 09/22/24 History duloxetine 60 mg capsule,delayed 60 mg PO DAILY 08/02/23 09/22/24 History release gabapentin 100 mg capsule 200 mg PO Q12H 08/02/23 09/22/24 History loratadine 10 mg tablet 10 mg PO Q24H 08/02/23 09/22/24 History hydrocodone 7.5 mg-acetaminophen 1 tab PO Q6H PRN severe pain 08/03/23 09/22/24 History 325 mg tablet (scale score 7-10) levothyroxine 100 mcg tablet 100 mcg PO .ACB 08/03/23 09/22/24 History lisinopril 5 mg tablet 5 mg PO DAILY 08/13/24 09/22/24 History torsemide 20 mg tablet 20 mg PO QDAY 09/20/24 09/22/24 History fluticasone fur. 100 mcg-umeclid 1 inh inhalation Q24H 09/22/24 09/22/24 History 62.5 mcg-vilant 25 mcg inhalat.powder (Trelegy Ellipta) furosemide 40 mg tablet 40 mg PO DAILY 09/22/24 09/22/24 History ondansetron HCl 4 mg tablet 4 mg PO Q8H PRN nausea and vomiting 09/22/24 09/22/24 History Allergies Allergy/AdvReac Type Severity Reaction Status Date / Time rofecoxib (From Vioxx) Allergy Severe Unknown Verified 08/13/24 14:24 naproxen (From Aleve) Allergy Intermediate Unknown Verified 08/13/24 14:24 Exam Constitutional Vital Signs, click to edit/add: Last Vital Signs Temp 97.7 F 09/23/24 09:59 Pulse 69 09/23/24 10:03 Resp 18 09/23/24 10:03 BP 144/82 H 09/23/24 09:59 Pulse Ox 95 09/23/24 09:59 O2 Del Method Room Air 09/23/24 09:59 Documenting provider has reviewed patient's vital signs: yes Common normals: no apparent distress, oriented x3 and alert HENMT Common normals: normocephalic Eye Common normals: PERRL and EOMs intact bilaterally Respiratory Common normals: normal respiratory effort and clear to auscultation bilaterally Cardio Common normals: regular rate, regular rhythm, no gallops, no murmurs and no rub GI Common normals: Normal to inspection, nondistended, normoactive bowel sounds present and non-tender Extremity Common normals: no pedal edema Results Labs Labs: Short CBC 09/23/24 Range/Units 05:54 WBC 5.2 (4.0-11.0) 10^3/uL Hgb 12.9 (12.0-16.0) g/dL Hct 37.6 (36.0-48.0) % Plt Count 154 (150-450) 10^3/uL BMP 09/23/24 05:49 Sodium 129 L Potassium 4.6 Chloride 95 L Carbon Dioxide 23.0 BUN 12.0 Creatinine 0.55 Glucose 158 H Calcium 9.0 Liver Function 09/23/24 Range/Units 05:49 Total Bilirubin 0.7 (0.2-1.0) mg/dL AST 55 H (15-37) U/L ALT 27 (14-59) U/L Alkaline Phosphatase 100 (46-116) U/L Albumin 3.0 L (3.4-5.0) g/dL Assessment and Plan Assessment and Plan (1) Acute hyponatremia: (2) Nausea: (3) Acute hypokalemia: (4) Primary osteoarthritis of left hip: (5) Chronic heart failure with preserved ejection fraction (HFpEF): (6) Type 2 diabetes mellitus with hyperglycemia: (7) HTN (hypertension): Qualifiers: Hypertension type: primary hypertension Qualified Code(s): I10 - Essential (primary) hypertension (8) COPD (chronic obstructive pulmonary disease): Qualifiers: COPD type: unspecified COPD Qualified Code(s): J44.9 - Chronic obstructive pulmonary disease, unspecified (9) Degenerative lumbar spinal stenosis: (10) CAD (coronary artery disease): Plan Presented with nonspecific complaints of nausea and not feeling well. Found hyponatremia likely related to recent zaroxolyn use and taking 2 loop diuretics. Started IV fluids and sodium improved. Resumed home medication but stopped lasix. Continues to have left hip pain and working with PT/OT. Continue solu- medrol for pain. Resumed home norco. Increase ambulation. If labs stable and moving well possibly home with home health in next 1-2 days. Urinary Catheter Management Urinary Catheter Management Urethral: Cath placed during this visit: no
[2024-09-23] MEDS: BUDESONIDE 0.5 MG/2 ML AMPULE NEB IH ×2 (11:43→20:26)
--- NOTE | 2024-09-23 13:24 | SWNOTE1 ---
SW met with pt to discuss dc needs. Pt's son was in room as well. Patient uses a walker at home. Pt's son or daughter in law are always with her at home and help care for her. Everything is on one floor. SW did let them know that rehab at SNF is recommended at this time. Pt voiced she does not want to go to nursing facility, and pt's son in agreement and will care for her at home. SW did ask about home health services. They voiced she has had in past. They will use the same on they had in past, or open to any HH company. SW provided list from Medicare.gov and they do not have preference as long as insurance pays. SW to look back at previous stay for HH company.
--- NOTE | 2024-09-23 13:28 | SWNOTE1 ---
Pt used [facility] in past. Referral sent to [facility] . Referral included face sheet, ED note, H&P, provider notes, case management report, and PT/OT notes.
--- NOTE | 2024-09-23 15:21 | SWNOTE1 ---
Important Message from Medicare reviewed and discussed with patient. Pt. verbalized understanding and signed the form. Original given to patient and copy placed in patient?s chart.
--- NOTE | 2024-09-23 15:40 | SWNOTE1 ---
SW called [address] and they received referral and are still reviewing.
--- NOTE | 2024-09-23 16:15 | SWNOTE1 ---
[facility] called [facility] and they are able to accept and will start care on Thursday09/26/24. [facility] left [facility] and information to be faxed at discharged to [facility] at the nurses station.
[2024-09-24] VITALS (12 sets, daily range): BP systolic 135–153; BP diastolic 71–83; PULSE 57–82; TEMP 36.4–36.6; O2SAT 93–96
[2024-09-24] MEDS: TRAZODONE HCL 50 MG TABLET 25 MG PO (01:02)
[2024-09-24] MEDS: METHYLPREDNISOLONE SOD SUCC PF 125 MG/2 ML VIAL 60 MG IVP ×2 (02:49→10:30)
[2024-09-24] MEDS: IPRATROPIUM/ALBUTEROL SULFATE 3 ML AMPUL.NEB IH ×2 (04:49→11:19)
[2024-09-24 06:23] LABS: Basophils Percent Auto 0.1 % (0.2-2.0); Eosinophils Percent Auto 0.1 % (0.9-7.0); Hematocrit 35.6 % (36.0-48.0); Hemoglobin 12.1 g/dL (12.0-16.0); Immature Granulocytes Abs Auto 0.05 10^3/uL (0.00-0.03); Immature Granulocytes Pct Auto 0.5 % (0.0-0.5); Lymphocytes Absolute Auto 0.7 10^3/uL (1.2-3.8); Lymphocytes Percent Auto 6.5 % (20.5-60.0); Mean Corpuscular Hemoglobin 31.3 pg (26.7-34.0); Mean Corpuscular Volume 92.2 fL (81.0-99.0); Mean Platelet Volume 10.7 fL (9.5-13.5); Monocytes Absolute Auto 0.4 10^3/uL (0.3-0.8); Monocytes Percent Auto 3.2 % (1.7-12.0); Neutrophils Absolute Auto 9.8 10^3/uL (1.4-6.5); Neutrophils Percent Auto 89.6 % (43.0-75.0); Platelet Count 156 10^3/uL (150-450); Red Blood Count 3.86 10^6/uL (4.20-5.40); Red Cell Distribution Width 12.9 % (11.0-15.0); White Blood Count 10.9 10^3/uL (4.0-11.0)
[2024-09-24] MEDS: LEVOTHYROXINE SODIUM 100 MCG TABLET PO (06:25)
[2024-09-24 06:46] LABS: Alanine Aminotransferase 29 U/L (14-59); Albumin Globulin Ratio 0.9; Albumin Level 2.9 g/dL (3.4-5.0); Alkaline Phosphatase 81 U/L (46-116); Anion Gap 12.8; Aspartate Amino Transferase 29 U/L (15-37); BUN Creatinine Ratio 23.3; Bilirubin Total 0.5 mg/dL (0.2-1.0); Calcium 8.8 mg/dL (8.5-10.1); Carbon Dioxide 26.4 mmol/L (21.0-32.0); Chloride 100 mmol/L (98-107); Estimated GFR (African America >60 (>=60 mL/min/1.73m^2); Estimated GFR (Non-African Ame >60 (>=60 mL/min/1.73m^2); Globulin 3.1 g/dL; Glucose 162 mg/dL (74-106); Potassium 4.2 mmol/L (3.5-5.1); Sodium 135 mmol/L (136-145)
[2024-09-24 07:42] LABS: Glucometer 156 mg/dL (74-106)
--- NOTE | 2024-09-24 08:59 | PM.DS1 ---
DS: Providers Provider Date of admission: 09/23/24 10:47 Primary care physician: MK LANDERS Attending physician on admission: Kenny Deutsch Consults: 09/22/24 14:11 Occupational Therapy Eval and Treat Routine Reason for consultation: Pain Physical Therapy Eval and Treat Routine Reason for consultation: Pain Discharging clinician: Leanne Morgan DS: Diagnosis Discharge Diagnosis (1) Acute hyponatremia: (2) Nausea: (3) Acute hypokalemia: (4) Primary osteoarthritis of left hip: (5) Chronic heart failure with preserved ejection fraction (HFpEF): (6) Type 2 diabetes mellitus with hyperglycemia: (7) HTN (hypertension): Qualifiers: Hypertension type: primary hypertension Qualified Code(s): I10 - Essential (primary) hypertension (8) COPD (chronic obstructive pulmonary disease): Qualifiers: COPD type: unspecified COPD Qualified Code(s): J44.9 - Chronic obstructive pulmonary disease, unspecified (9) Degenerative lumbar spinal stenosis: (10) CAD (coronary artery disease): DS: Summary Hospital Course Hospital Course: 84 y/o female to ER c/o nausea and pain. Reports overall doesn't feel well. Pain in both hips but left worse than right. Pain with walking and standing. Severe nausea. To ER 09/20 for nausea and labs showed sodium 129. Given IV fluids and discharged. Continued to not feel well and returned to ER. Labs showed sodium 123. CT head negative. Chest x-ray and UA negative. Admitted for hyponatremia. Started IV fluids. Review of home medication shows patient with both lasix and torsemide listed. Lasix stopped. Review of outpatient chart shows patient with history of CHF. Echo 05/2024 showed EF 60%. PCP gave 7 days of zaroxolyn 09/14. C/o severe hip pain after admission and x-ray showed OA left hip. Started solu-medrol IV. At the time of discharge sodium level was 135, Cr 0.73. She has been instructed to hold the torsemide and lasix, and metolazone. She will follow up with PCP and have BMP completed and he can make decision on what and when to restart diuretics. I have placed her on Prednisone 20mg BID x 5 days for her hip pain. I also provided Dr. West's clinic number for possible hip injection in the future. Patient will be discharged home today in stable condition. She may return to the ER with any worsening signs or symptoms. Status at Discharge Functional status at discharge: uses cane/walker Overall status at discharge: patient is progressing back to baseline Time Spent with Patient Time attestation: Total time spent providing and/or coordinating discharge services: Time spent: greater than 30 minutes Exam Narrative Exam Narrative: General: Patient is alert, and oriented to person, place and time with normal affect, proper hygiene Skin: no visible rashes, or ulcers Head: atraumatic, acephalic Heart: Normal rate and rhythm, no murmurs/rubs/gallops Lungs: no audible wheezes, crackles and normal breath sounds all lung diehl Abdomen: Normal audible bowel sounds, no distension, No palpable masses, no organomegaly, no rebound/guarding/ or rigidity Musculoskeletal: mild swelling bilateral lower extremities Neuro: CN II-X grossly intact Constitutional Vital Signs, click to edit/add: Last Vital Signs Temp 97.6 F 09/24/24 07:34 Pulse 65 09/24/24 08:00 Resp 16 09/24/24 07:34 BP 135/71 09/24/24 07:34 Pulse Ox 94 L 09/24/24 07:34 O2 Del Method Room Air 09/24/24 07:34 DS: Data Data Completed and Pending Labs on day of discharge: Labs from last 24 hours 09/24/24 09/24/24 07:36 05:46 WBC 10.9 RBC 3.86 L Hgb 12.1 Hct 35.6 L MCV 92.2 MCH 31.3 MCHC 34.0 RDW 12.9 Plt Count 156 MPV 10.7 Neut % (Auto) 89.6 H Lymph % (Auto) 6.5 L [place] % (Auto) 3.2 Eos % (Auto) 0.1 L Baso % (Auto) 0.1 L Neut # (Auto) 9.8 H Lymph # (Auto) 0.7 L [place] # (Auto) 0.4 Eos # (Auto) 0.0 Baso # (Auto) 0.0 Abs Immat Gran (auto) 0.05 H Imm/Tot Granulo (auto) 0.5 Sodium 135 L Potassium 4.2 Chloride 100 Carbon Dioxide 26.4 Anion Gap 12.8 BUN 17.0 Creatinine 0.73 Est GFR ( Amer) >60 Est GFR (Non-Af Amer) >60 BUN/Creatinine Ratio 23.3 Glucose 162 H Calcium 8.8 Magnesium 2.0 Total Bilirubin 0.5 AST 29 ALT 29 Alkaline Phosphatase 81 Total Protein 6.0 L Albumin 2.9 L Globulin 3.1 Albumin/Globulin Ratio 0.9 POC Glucose 156 H Discharge Plan Discharge Disposition: Home Health Service Discharge Medications: New prednisone 20 mg tablet 20 mg PO BID 5 Days Qty: 10 0RF Continued alprazolam 0.25 mg tablet 0.25 mg PO BID PRN (Reason: anxiety) duloxetine 60 mg capsule,delayed release(DR/EC) 60 mg PO DAILY loratadine 10 mg tablet 10 mg PO Q24H aspirin [Dalton Chewable Aspirin] 81 mg tablet,chewable 81 mg PO DAILY carvedilol 12.5 mg tablet 12.5 mg PO Q12H gabapentin 100 mg capsule 200 mg PO Q12H atorvastatin 40 mg tablet 40 mg PO DAILY hydrocodone-acetaminophen 7.5-325 mg tablet 1 tab PO Q6H PRN (Reason: severe pain (scale score 7-10)) levothyroxine 100 mcg tablet 100 mcg PO .ACB lisinopril 5 mg tablet 5 mg PO DAILY Trelegy Ellipta 100-62.5-25 mcg blister with device 1 inh INHALATION Q24H ondansetron HCl 4 mg tablet 4 mg PO Q8H PRN (Reason: nausea and vomiting) 3 Days Qty: 9 0RF Held torsemide 20 mg tablet 20 mg PO QDAY Hold Instructions: Resume on 09/30/24. furosemide 40 mg tablet 40 mg PO DAILY Hold Instructions: Resume on 09/30/24. 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 They plan on starting care on Thursday09/26/24. Phone number for [facility] is [phone] Forms: Portal Instructions Follow Up Appointments: Please Call Dr. Landers's office Thursday, Will need recheck BMP prior to restarting diuretics Dr. West, Orthopedic office [phone]
[2024-09-24] MEDS: ONDANSETRON PF 4 MG/2 ML VIAL IV (09:40)
--- NOTE | 2024-09-24 09:47 | PC.NURSE ---
Patient's son in room feeding her. patient had medium emesis
--- NOTE | 2024-09-24 10:20 | PT.DAILY ---
Physical Therapy Daily Note PT Daily Note/Assess Start: 09/23/24 07:11 Freq: Status: Active Protocol: Document 09/24/24 10:11 [id number] (Rec: 09/24/24 10:20 [id number]) Physical Therapy Daily Note/Assessment Time In/Time Out Time In 08:30 Time Out 08:48 Pain In Pain Level 0 Pain Out Pain Level 0 Subjective Subjective Patient states she would like to sit in the chair and is agreeable to participate with PT. Son present during treatment. Therapeutic Activity Time Therapeutic Activity 18 Minutes (minutes) Therapeutic Activity 0 Units Therapeutic Activity Treatment Bed Mobility Ability Minimum Assist,1 Person Assist Chair Transfer Minimum Assist,1 Person Assist Ability Therapeutic Activity O2 level 97% prior to functional movement. Patient is Comments MAX A +1 to naye non-slip socks. Bed mobility: supine to R sitting with use of R hand is MIN A +1. Sitting balance fair to good, uses GRAYSON UE for support. Sit to stand transfer to 2WW is MIN A +1, requires assist for safe hand placement on walker. Patient ambulated ~17 ft with CGA +1 with 2WW, MIN A +1 for 2WW management. Patient reports dizziness and patient immediately seated in chair at bedside. Stand to sit transfer is MIN A +1. Patient GRAYSON LE elevated and covered with a blanket. Call htomas within reach and all post treatment care performed. Patients O2 level is 94% after seated in chair. Total Physical Therapy Time Total Therapy 18 Minutes Total Physical 0 Therapy Units Summary Daily Note Summary Patient demonstrates increased ability to perform bed mobility with less assistance. Walking distance limited due to patient reports of dizziness. Patient would benefit from PT upon DC to address functional deficits for return to PLOF.
[2024-09-24] MEDS: ASPIRIN 81 MG TAB.CHEW PO (10:28)
[2024-09-24] MEDS: GABAPENTIN 100 MG CAPSULE 200 MG PO (10:29)
[2024-09-24] MEDS: CARVEDILOL 12.5 MG TABLET PO (10:30)
[2024-09-24] MEDS: LISINOPRIL 5 MG TABLET PO (10:30)
[2024-09-24] MEDS: CETIRIZINE HCL 10 MG TABLET PO (10:30)
[2024-09-24] MEDS: ATORVASTATIN CALCIUM 40 MG TABLET PO (10:30)
[2024-09-24] MEDS: DULOXETINE HCL 60 MG CAPSULE.DR PO (10:30)
[2024-09-24] MEDS: POTASSIUM CHLORIDE IN 0.9%NACL 1,000 ML 100 ML IV (10:33)
[2024-09-24] MEDS: TORSEMIDE 20 MG TABLET PO (10:33)
[2024-09-24] MEDS: BUDESONIDE 0.5 MG/2 ML AMPULE NEB IH (11:19)
--- NOTE | 2024-09-24 11:19 | PC.NURSE ---
Per Dr Selin Morgan ok to remove IV and stop fluids. Patient is going home.
[2024-09-24 11:23] LABS: Glucometer 185 mg/dL (74-106)
--- NOTE | 2024-09-27 14:50 | CM.DCFOLLOWU ---
1st attempt 09/27/24, no answer
== END 2024-09-24 13:31 | disposition home health service (06) | DRG 641 ==
LOC: ER 11:41 → MS 14:03
PROVIDERS: Family Medicine; Admitting Provider Family Medicine; Emergency Provider Emergency Medicine; PCP Internal Medicine; Visit Provider Family Medicine
DX: E87.1 Hypo-osmolality and hyponatremia (principal); I50.32 Chronic diastolic (congestive) heart failure; E87.6 Hypokalemia; R11.0 Nausea; M25.551 Pain in right hip; M25.552 Pain in left hip; Z79.899 Other long term (current) drug therapy; M16.12 Unilateral primary osteoarthritis, left hip; F41.9 Anxiety disorder, unspecified; J44.9 Chronic obstructive pulmonary disease, unspecified; E03.9 Hypothyroidism, unspecified; E78.5 Hyperlipidemia, unspecified; Z90.710 Acquired absence of both cervix and uterus; Z87.891 Personal history of nicotine dependence; Z79.82 Long term (current) use of aspirin; E11.65 Type 2 diabetes mellitus with hyperglycemia; I11.0 Hypertensive heart disease with heart failure; M48.061 Spinal stenosis, lumbar region without neurogenic claudication; I25.10 Atherosclerotic heart disease of native coronary artery without angina pectoris; Z79.890 Hormone replacement therapy
CPT/HCPCS: 36415; 70450; 71045; 72100; 73502; 74018; 80053; 81001; 82948; 83735; 84484; 85007; 85025; 85027; 93005; 94640; 96361; 96365; 96366; 96375; 96376; 97162; 97165; 97530; 99285; G0378; J0360; J2405; J2919; Q0162

== ENCOUNTER 2024-09-27 11:00 | Emergency (ER) | payer MEDICARE, SELFPAY ==
[2024-09-27] VITALS (20 sets, daily range): BP systolic 119–149; BP diastolic 58–72; PULSE 58–76; TEMP 36.7; O2SAT 75–100; BMI 31.9
--- NOTE | 2024-09-27 11:13 | ECG_ITS ---
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 Measurements Intervals Meally Rate: 61 P: 90 MA: 166 QRS: 13 QRSD: 90 T: 60 QT: 358 QTc: 360 Interpretive Statements 1100 Sinus rhythm 8102 Low QRS voltage in chest leads 9120 atypical ECG Compared to ECG 09/22/2024 09:02:28 Low QRS voltage now present Electronically Signed On 09-27-2024 20:00:04 EDT by EMILY CHING M.D.
--- NOTE | 2024-09-27 11:15 | ED.GENADUL1 ---
HPI HPI - General Adult General Chief complaint: Shortness of Breath/Dyspnea Stated complaint: SHORT OF BREATH Time Seen by Provider: 09/27/24 11:09 Source: patient Mode of arrival: ambulance History of Present Illness HPI narrative: 84-year-old female presents to the emergency department for chest pain shortness of breath. She states that started at 8:00 this morning, just over 3 hours ago. She was transported here by paramedics. She states she has had a slight cough recently. She has no history of CAD but states she has CHF. She states it does not hurt at all now except if she takes in a deep breath. Related Data Home Medications ?Medication ?Instructions ?Recorded ?Confirmed alprazolam 0.25 mg tablet 0.25 mg PO BID PRN anxiety 08/02/23 09/27/24 aspirin 81 mg chewable tablet 81 mg PO DAILY 08/02/23 09/27/24 (Dalton Chewable Low Dose Aspirin) atorvastatin 40 mg tablet 40 mg PO DAILY 08/02/23 09/27/24 carvedilol 12.5 mg tablet 12.5 mg PO Q12H 08/02/23 09/27/24 duloxetine 60 mg capsule,delayed 60 mg PO DAILY 08/02/23 09/27/24 release gabapentin 100 mg capsule 200 mg PO Q12H 08/02/23 09/27/24 loratadine 10 mg tablet 10 mg PO Q24H 08/02/23 09/27/24 hydrocodone 7.5 mg-acetaminophen 1 tab PO Q6H PRN severe pain 08/03/23 09/27/24 325 mg tablet (scale score 7-10) levothyroxine 100 mcg tablet 100 mcg PO .ACB 08/03/23 09/27/24 lisinopril 5 mg tablet 5 mg PO DAILY 08/13/24 09/27/24 torsemide 20 mg tablet 20 mg PO QDAY 09/20/24 09/27/24 fluticasone fur. 100 mcg-umeclid 1 inh inhalation Q24H 09/22/24 09/27/24 62.5 mcg-vilant 25 mcg inhalat.powder (Trelegy Ellipta) furosemide 40 mg tablet 40 mg PO DAILY 09/22/24 09/27/24 Previous Rx's ?Medication ?Instructions ?Recorded ondansetron HCl 4 mg tablet 4 mg PO Q8H PRN nausea and 09/24/24 vomiting 3 days #9 tabs prednisone 20 mg tablet 20 mg PO BID 5 days #10 tabs 09/24/24 azithromycin 250 mg tablet See Rx Instructions PO .COMPLEX #6 09/27/24 (Zithromax Z-Dennis) tabs Allergies Allergy/AdvReac Type Severity Reaction Status Date / Time rofecoxib (From Vioxx) Allergy Severe Unknown Verified 08/13/24 14:24 naproxen (From Aleve) Allergy Intermediate Unknown Verified 08/13/24 14:24 Opioid HPI Opioid Management Most Recent Opioid Data: Last Pain Scale 0 09/24/24 12:04 09/24/24 Last Pain Intensity 0 09/24/24 10:11 09/24/24 Last Pain Assessment 09/24/24 12:04 Last ORT Total Score 0 09/22/24 14:02 09/22/24 Last ORT Risk Category Low Risk 09/22/24 14:02 09/22/24 Review of Systems ROS Narrative A ten point review of systems is negative except as noted above. [facility] Medical History (Updated 09/27/24 @ 14:32 by Tommie Block MD) Primary osteoarthritis of right hip ?M16.11 - Unilateral primary osteoarthritis, right hip (ICD-10) Abdominal bloating ?R14.0 - Abdominal distension (gaseous) (ICD-10) Anxiety ?F41.9 - Anxiety disorder, unspecified (ICD-10) COPD exacerbation ?J44.1 - Chronic obstructive pulmonary disease with (acute) exacerbation (ICD-10) Acute costochondritis ?M94.0 - Chondrocostal junction syndrome [Tietze] (ICD-10) Fall ?W19.XXXA - Unspecified fall, initial encounter (ICD-10) Contusion of rib on right side ?S20.211A - Contusion of right front wall of thorax, initial encounter (ICD-10) Contusion of knee, left ?S80.02XA - Contusion of left knee, initial encounter (ICD-10) Constipation ?K59.00 - Constipation, unspecified (ICD-10) Chest wall pain ?R07.89 - Other chest pain (ICD-10) Abdominal pain ?R10.9 - Unspecified abdominal pain (ICD-10) No problem, feared complaint unfounded ?Z71.1 - Person with feared health complaint in whom no diagnosis is made (ICD-10) Grief reaction ?F43.21 - Adjustment disorder with depressed mood (ICD-10) Dehydration ?E86.0 - Dehydration (ICD-10) Head injury ?S09.90XA - Unspecified injury of head, initial encounter (ICD-10) COPD exacerbation ?J44.1 - Chronic obstructive pulmonary disease with (acute) exacerbation (ICD-10) Nausea ?R11.0 - Nausea (ICD-10) Hypothyroidism ?E03.9 - Hypothyroidism, unspecified (ICD-10) HLD (hyperlipidemia) ?E78.5 - Hyperlipidemia, unspecified (ICD-10) Insufficient home care support ?Z74.2 - Need for assistance at home and no other household member able to render care (ICD-10) Muscular deconditioning ?R29.898 - Other symptoms and signs involving the musculoskeletal system (ICD-10) CHF (congestive heart failure) ?I50.9 - Heart failure, unspecified (ICD-10) Surgical History H/O hysterectomy for benign disease ?Z90.710 - Acquired absence of both cervix and uterus (ICD-10) Previous back surgery ?Z98.890 - Other specified postprocedural states (ICD-10) H/O hernia repair ?Z98.890 - Other specified postprocedural states (ICD-10) ?Z87.19 - Personal history of other diseases of the digestive system (ICD-10) Family History (Updated 09/22/24 @ 12:48 by Agnieszka Hilliard) Mother Family history of cancer Sister Family history of diabetes mellitus Social History (Updated 09/22/24 @ 12:48 by Agnieszka Hilliard) Within the past year, how often did you have a drink containing alcohol: never Score interpretation: A score less than 3 is consistent with normal alcohol consumption. 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 Known occupational exposures/hazards: No Highest level of school completed/degree received: 7th grade In a typical week, how many times do you talk on the telephone with family, friends, or neighbors: twice per week How often do you get together with friends or relatives: twice per week How often do you attend gnosticist or mu-ism services: never Little interest or pleasure in doing things: not at all Feeling down, depressed, or hopeless: not at all Feel stressed/tense/nervous/anxious/difficulty sleeping: not at all Exam Narrative Exam Narrative: Nurses note and vital signs reviewed and patient is not hypoxic. General: The patient appears in no apparent distress. Patient is resting comfortably on cart. Skin: Warm, dry, no pallor noted. There is no rash noted. Head: Normocephalic, atraumatic Eye: Normal conjunctiva, no drainage Ears, Nose, Mouth, and Throat: oral mucosa is moist. Nares patent. Cardiovascular: Regular Rate and Rhythm Respiratory: Patient is in no distress, no accessory muscle use, lungs are clear to auscultation, no wheezing, rales or rhonchi Back: non-tender GI: Normal bowel sounds, no tenderness to palpation, no masses appreciated. No rebound, guarding, or rigidity noted. Neurological: A&O, normal speech Psychiatric: Cooperative Constitutional Vital Signs, click to edit/add: Last Vital Signs Temp 98.0 F 09/27/24 11:01 Pulse 72 09/27/24 14:10 Resp 22 H 09/27/24 14:10 BP 141/64 09/27/24 14:01 Pulse Ox 98 09/27/24 14:10 O2 Del Method Room Air 09/27/24 11:01 Course Vital Signs Vital signs: Vital Signs Temperature 98.0 F 09/27/24 11:01 Pulse Rate 70 09/27/24 11:01 Respiratory Rate 20 09/27/24 11:01 Blood Pressure 130/72 09/27/24 11:01 Pulse Oximetry 97 09/27/24 11:01 Oxygen Delivery Method Room Air 09/27/24 11:01 Temperature 98.0 F 09/27/24 11:01 Pulse Rate 72 09/27/24 14:10 Respiratory Rate 22 H 09/27/24 14:10 Blood Pressure 141/64 09/27/24 14:01 Pulse Oximetry 98 09/27/24 14:10 Oxygen Delivery Method Room Air 09/27/24 11:01 Medical Decision Making MDM Narrative Medical decision making narrative: Her workup here is negative except for pneumonia. There is no evidence of myocardial infarction or heart failure. No evidence of pulmonary embolism. She was given IV Rocephin and Zithromax here and discharged home on Zithromax. Her O2 sats are 98 to 100% on room air and her clinical picture does not fit congestive heart failure. I have discussed this matter with the patient and her son. With normal vital signs, including no fever or tachycardia, and her WBC being 11.8 with normal renal function, she does not require admission in hospital at this point. Treatment diagnosis and follow-up were discussed thoroughly. Differential Diagnosis Differential Diagnosis: HI, NSTEMI, CHF, pneumothorax, pulmonary embolus Lab Data Lab results reviewed: Yes I reviewed the patient's lab results Labs: Lab Results 09/27/24 09/27/24 Range/Units 11:19 12:46 WBC 11.8 H (4.0-11.0) 10^3/uL RBC 3.89 L (4.20-5.40) 10^6/uL Hgb 12.2 (12.0-16.0) g/dL Hct 36.6 (36.0-48.0) % MCV 94.1 (81.0-99.0) fL MCH 31.4 (26.7-34.0) pg MCHC 33.3 (29.9-35.2) g/dL RDW 13.0 (11.0-15.0) % Plt Count 184 (150-450) 10^3/uL MPV 10.1 (9.5-13.5) fL Neut % (Auto) 62.0 (43.0-75.0) % Lymph % (Auto) 28.3 (20.5-60.0) % [place] % (Auto) 6.9 (1.7-12.0) % Eos % (Auto) 1.7 (0.9-7.0) % Baso % (Auto) 0.3 (0.2-2.0) % Neut # (Auto) 7.3 H (1.4-6.5) 10^3/uL Lymph # (Auto) 3.3 (1.2-3.8) 10^3/uL [place] # (Auto) 0.8 (0.3-0.8) 10^3/uL Eos # (Auto) 0.2 (0.0-0.7) 10^3/uL Baso # (Auto) 0.0 (0.0-0.1) 10^3/uL Abs Immat Gran (auto) 0.09 H (0.00-0.03) 10^3/uL Imm/Tot Granulo (auto) 0.8 H (0.0-0.5) % D-Dimer 1.77 H* (<=0.59) mg/L FEU Sodium 132 L (136-145) mmol/L Potassium 4.0 (3.5-5.1) mmol/L Chloride 98 (98-107) mmol/L Carbon Dioxide 29.4 (21.0-32.0) mmol/L Anion Gap 8.6 BUN 17.0 (7.0-18.0) mg/dL Creatinine 0.83 (0.55-1.02) mg/dL Est GFR ( Amer) >60 (>=60 mL/min/1.73m^2) Est GFR (Non-Af Amer) >60 (>=60 mL/min/1.73m^2) BUN/Creatinine Ratio 20.5 Glucose 109 H (74-106) mg/dL Calcium 9.2 (8.5-10.1) mg/dL Troponin I High Sens 12.3 10.7 (4.0-51.3) pg/mL ECG Data Attestation: I personally reviewed and interpreted this ECG as follows: (EKG on my interpretation shows sinus rhythm with rate of 61 and some artifact) Discharge Plan Discharge Chief Complaint: Shortness of Breath/Dyspnea Clinical Impression: Pneumonia Patient Disposition: Home, Self-Care Time of Disposition Decision: 14:32 Condition: Good Mode of Transportation: Private Vehicle Prescriptions / Home Meds: New azithromycin [Zithromax Z-Dennis] 250 mg tablet See Rx Instructions .ROUTE .COMPLEX Qty: 6 0RF Rx Instructions: For 250 mg dose pack: take 500 mg today (day 1), then 250 mg for 4 days (days 2-5) No Action alprazolam 0.25 mg tablet 0.25 mg PO BID PRN (Reason: anxiety) duloxetine 60 mg capsule,delayed release(DR/EC) 60 mg PO DAILY loratadine 10 mg tablet 10 mg PO Q24H aspirin [Dalton Chewable Aspirin] 81 mg tablet,chewable 81 mg PO DAILY carvedilol 12.5 mg tablet 12.5 mg PO Q12H gabapentin 100 mg capsule 200 mg PO Q12H atorvastatin 40 mg tablet 40 mg PO DAILY hydrocodone-acetaminophen 7.5-325 mg tablet 1 tab PO Q6H PRN (Reason: severe pain (scale score 7-10)) levothyroxine 100 mcg tablet 100 mcg PO .ACB lisinopril 5 mg tablet 5 mg PO DAILY torsemide 20 mg tablet 20 mg PO QDAY Trelegy Ellipta 100-62.5-25 mcg blister with device 1 inh INHALATION Q24H furosemide 40 mg tablet 40 mg PO DAILY prednisone 20 mg tablet 20 mg PO BID 5 Days Qty: 10 0RF ondansetron HCl 4 mg tablet 4 mg PO Q8H PRN (Reason: nausea and vomiting) 3 Days Qty: 9 0RF Print Language: Belgian Instructions: Community Acquired Pneumonia (ED) Referrals: MK ORTEGA [Primary Care Provider] - 1 week
[2024-09-27 11:37] LABS: Basophils Percent Auto 0.3 % (0.2-2.0); Eosinophils Absolute Auto 0.2 10^3/uL (0.0-0.7); Eosinophils Percent Auto 1.7 % (0.9-7.0); Hematocrit 36.6 % (36.0-48.0); Hemoglobin 12.2 g/dL (12.0-16.0); Immature Granulocytes Abs Auto 0.09 10^3/uL (0.00-0.03); Immature Granulocytes Pct Auto 0.8 % (0.0-0.5); Lymphocytes Absolute Auto 3.3 10^3/uL (1.2-3.8); Lymphocytes Percent Auto 28.3 % (20.5-60.0); Mean Corpuscular HGB Conc 33.3 g/dL (29.9-35.2); Mean Corpuscular Hemoglobin 31.4 pg (26.7-34.0); Mean Corpuscular Volume 94.1 fL (81.0-99.0); Mean Platelet Volume 10.1 fL (9.5-13.5); Monocytes Absolute Auto 0.8 10^3/uL (0.3-0.8); Monocytes Percent Auto 6.9 % (1.7-12.0); Neutrophils Absolute Auto 7.3 10^3/uL (1.4-6.5); Platelet Count 184 10^3/uL (150-450); Red Blood Count 3.89 10^6/uL (4.20-5.40); White Blood Count 11.8 10^3/uL (4.0-11.0)
[2024-09-27 11:51] LABS: D Dimer 1.77 mg/L FEU (<=0.59)
[2024-09-27 11:52] LABS: Anion Gap 8.6; BUN Creatinine Ratio 20.5; Calcium 9.2 mg/dL (8.5-10.1); Carbon Dioxide 29.4 mmol/L (21.0-32.0); Chloride 98 mmol/L (98-107); Estimated GFR (African America >60 (>=60 mL/min/1.73m^2); Estimated GFR (Non-African Ame >60 (>=60 mL/min/1.73m^2); Glucose 109 mg/dL (74-106); Sodium 132 mmol/L (136-145); Troponin I High Sensitivity 12.3 pg/mL (4.0-51.3)
[2024-09-27] MEDS: CEFTRIAXONE 1,000 MG in 0.9 % SODIUM CHLORIDE 50 ML 100 MG IV (13:00)
[2024-09-27] MEDS: AZITHROMYCIN 500 MG in 0.9 % SODIUM CHLORIDE 250 ML 250 MG IV (13:23)
[2024-09-27 14:19] LABS: Troponin I High Sensitivity 10.7 pg/mL (4.0-51.3)
== END 2024-09-27 15:02 | disposition home or self-care (01) ==
PROVIDERS: Emergency Provider Emergency Medicine; PCP Internal Medicine
DX: J18.9 Pneumonia, unspecified organism (principal); R06.02 Shortness of breath; R07.9 Chest pain, unspecified; I50.9 Heart failure, unspecified; Z90.710 Acquired absence of both cervix and uterus; Z87.891 Personal history of nicotine dependence
CPT/HCPCS: 36415; 71045; 71275; 80048; 84484; 85025; 85378; 87040; 93005; 96365; 96366; 96368; 99285; J0456; J0696; Q9967

== ENCOUNTER 2024-09-30 10:26 | Inpatient (IN) | payer MEDICARE, SELFPAY ==
[2024-09-30] VITALS (18 sets, daily range): BP systolic 121–196; BP diastolic 57–88; PULSE 64–92; TEMP 36.4–37; O2SAT 92–100; BMI 30.8; BMI 31.1
--- NOTE | 2024-09-30 10:43 | ECG_ITS ---
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 Measurements Intervals [place] Rate: 66 P: 90 NV: 174 QRS: 35 QRSD: 98 T: 60 QT: 378 QTc: 392 Interpretive Statements 1100 Sinus rhythm 0102 ARTIFACT PRESENT 9110 normal ECG Compared to ECG 09/27/2024 11:21:33 No significant changes Electronically Signed On 10-01-2024 10:32:34 EDT by EMILY CHING M.D.
--- NOTE | 2024-09-30 10:45 | ED_ITS ---
HPI HPI - General Adult General Chief complaint: Abdominal Pain Stated complaint: ABDOMINAL PAIN, BACK PAIN, CHEST PAIN Time Seen by Provider: 09/30/24 10:35 Source: patient Mode of arrival: ambulance Limitations: no limitations History of Present Illness HPI narrative: 84-year-old female presents to the emergency department for chest and abdominal pain. She is a poor historian. She had been seen here 3 days ago for questionable pneumonia and did not require admission to the hospital. She has not had a bowel movement in the past 2 to 3 days. She states that everything hurts. No vomiting or fever. She was offered admission to [facility] after this last hospitalization but refused. Related Data Home Medications ?Medication ?Instructions ?Recorded ?Confirmed alprazolam 0.25 mg tablet 0.25 mg PO BID PRN anxiety 08/02/23 09/30/24 aspirin 81 mg chewable tablet 81 mg PO DAILY 08/02/23 09/30/24 (Dalton Chewable Low Dose Aspirin) carvedilol 12.5 mg tablet 12.5 mg PO Q12H 08/02/23 09/30/24 duloxetine 60 mg capsule,delayed 60 mg PO DAILY 08/02/23 09/30/24 release gabapentin 100 mg capsule 200 mg PO Q12H 08/02/23 09/30/24 loratadine 10 mg tablet 10 mg PO Q24H 08/02/23 09/30/24 hydrocodone 7.5 mg-acetaminophen 1 tab PO Q6H PRN severe pain 08/03/23 09/30/24 325 mg tablet (scale score 7-10) levothyroxine 100 mcg tablet 100 mcg PO .ACB 08/03/23 09/30/24 lisinopril 5 mg tablet 5 mg PO DAILY 08/13/24 09/30/24 torsemide 20 mg tablet 20 mg PO QDAY 09/20/24 09/30/24 fluticasone fur. 100 mcg-umeclid 1 inh inhalation Q24H 09/22/24 09/30/24 62.5 mcg-vilant 25 mcg inhalat.powder (Trelegy Ellipta) furosemide 40 mg tablet 40 mg PO DAILY 09/22/24 09/30/24 famotidine 20 mg tablet 20 mg PO DAILY 09/30/24 09/30/24 omeprazole 40 mg capsule,delayed 40 mg PO DAILY 09/30/24 09/30/24 release Previous Rx's ?Medication ?Instructions ?Recorded ondansetron HCl 4 mg tablet 4 mg PO Q8H PRN nausea and 09/24/24 vomiting 3 days #9 tabs azithromycin 250 mg tablet See Rx Instructions PO .COMPLEX #6 09/27/24 (Zithromax Z-Dennis) tabs Allergies Allergy/AdvReac Type Severity Reaction Status Date / Time rofecoxib (From Vioxx) Allergy Severe Unknown Verified 08/13/24 14:24 naproxen (From Aleve) Allergy Intermediate Unknown Verified 08/13/24 14:24 Opioid HPI Opioid Management Most Recent Opioid Data: Last Pain Scale 7 09/30/24 11:14 09/30/24 Last Pain Intensity 0 09/24/24 10:11 09/24/24 Last Pain Assessment 09/24/24 12:04 Last ORT Total Score 0 09/22/24 14:02 09/22/24 Last ORT Risk Category Low Risk 09/22/24 14:02 09/22/24 Review of Systems ROS Narrative A ten point review of systems is negative except as noted above. [facility] Medical History (Updated 09/30/24 @ 12:27 by Tommie Block MD) CAD (coronary artery disease) ?I25.10 - Atherosclerotic heart disease of [place] coronary artery without angina pectoris (ICD-10) Type 2 diabetes mellitus with hyperglycemia ?E11.65 - Type 2 diabetes mellitus with hyperglycemia (ICD-10) Degenerative lumbar spinal stenosis ?M48.061 - Spinal stenosis, lumbar region without neurogenic claudication (ICD-10) Chronic heart failure with preserved ejection fraction (HFpEF) ?I50.32 - Chronic diastolic (congestive) heart failure (ICD-10) HTN (hypertension) ?I10 - Essential (primary) hypertension (ICD-10) COPD (chronic obstructive pulmonary disease) ?J44.9 - Chronic obstructive pulmonary disease, unspecified (ICD-10) Primary osteoarthritis of right hip ?M16.11 - Unilateral primary osteoarthritis, right hip (ICD-10) Abdominal bloating ?R14.0 - Abdominal distension (gaseous) (ICD-10) Anxiety ?F41.9 - Anxiety disorder, unspecified (ICD-10) COPD exacerbation ?J44.1 - Chronic obstructive pulmonary disease with (acute) exacerbation (ICD-10) Acute costochondritis ?M94.0 - Chondrocostal junction syndrome [Tietze] (ICD-10) Fall ?W19.XXXA - Unspecified fall, initial encounter (ICD-10) Contusion of rib on right side ?S20.211A - Contusion of right front wall of thorax, initial encounter (ICD- 10) Contusion of knee, left ?S80.02XA - Contusion of left knee, initial encounter (ICD-10) Constipation ?K59.00 - Constipation, unspecified (ICD-10) Chest wall pain ?R07.89 - Other chest pain (ICD-10) Abdominal pain ?R10.9 - Unspecified abdominal pain (ICD-10) No problem, feared complaint unfounded ?Z71.1 - Person with feared health complaint in whom no diagnosis is made (ICD-10) Grief reaction ?F43.21 - Adjustment disorder with depressed mood (ICD-10) Dehydration ?E86.0 - Dehydration (ICD-10) Head injury ?S09.90XA - Unspecified injury of head, initial encounter (ICD-10) COPD exacerbation ?J44.1 - Chronic obstructive pulmonary disease with (acute) exacerbation (ICD-10) Nausea ?R11.0 - Nausea (ICD-10) Hypothyroidism ?E03.9 - Hypothyroidism, unspecified (ICD-10) HLD (hyperlipidemia) ?E78.5 - Hyperlipidemia, unspecified (ICD-10) Insufficient home care support ?Z74.2 - Need for assistance at home and no other household member able to render care (ICD-10) Muscular deconditioning ?R29.898 - Other symptoms and signs involving the musculoskeletal system (ICD-10) CHF (congestive heart failure) ?I50.9 - Heart failure, unspecified (ICD-10) Surgical History H/O hysterectomy for benign disease ?Z90.710 - Acquired absence of both cervix and uterus (ICD-10) Previous back surgery ?Z98.890 - Other specified postprocedural states (ICD-10) H/O hernia repair ?Z98.890 - Other specified postprocedural states (ICD-10) ?Z87.19 - Personal history of other diseases of the digestive system (ICD-10) Family History (Updated 09/22/24 @ 12:48 by Agnieszka Hilliard) Mother Family history of cancer Sister Family history of diabetes mellitus Social History (Updated 09/22/24 @ 12:48 by Agnieszka Hilliard) Within the past year, how often did you have a drink containing alcohol: never Score interpretation: A score less than 3 is consistent with normal alcohol consumption. 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 Known occupational exposures/hazards: No Highest level of school completed/degree received: 7th grade In a typical week, how many times do you talk on the telephone with family, friends, or neighbors: twice per week How often do you get together with friends or relatives: twice per week How often do you attend gnosticism or caodaism services: never Little interest or pleasure in doing things: not at all Feeling down, depressed, or hopeless: not at all Feel stressed/tense/nervous/anxious/difficulty sleeping: not at all Exam Narrative Exam Narrative: Nurses note and vital signs reviewed and patient is not hypoxic. General: The patient appears weak but in no acute respiratory distress Skin: Warm, dry, no pallor noted. There is no rash noted. Head: Normocephalic, atraumatic Eye: Normal conjunctiva, no drainage Ears, Nose, Mouth, and Throat: oral mucosa is moist. Nares patent. Cardiovascular: Regular Rate and Rhythm Respiratory: Patient is in no distress, no accessory muscle use, lungs are clear to auscultation, no wheezing, rales or rhonchi GI: Soft and nondistended. No appreciable tenderness is noted with palpation Musculoskeletal: The patient has no evidence of calf tenderness, symmetrical pulses noted bilaterally Neurological: Awake and alert Psychiatric: Cooperative Constitutional Vital Signs, click to edit/add: Last Vital Signs Temp 97.8 F 09/30/24 10:27 Pulse 72 09/30/24 12:20 Resp 26 H 09/30/24 12:20 BP 176/72 H 09/30/24 12:02 Pulse Ox 100 09/30/24 12:20 O2 Del Method Room Air 09/30/24 11:14 Course Vital Signs Vital signs: Vital Signs Temperature 97.8 F 09/30/24 10:27 Pulse Rate 72 09/30/24 10:27 Respiratory Rate 22 H 09/30/24 10:27 Pulse Oximetry 100 09/30/24 10:27 Oxygen Delivery Method Room Air 09/30/24 10:27 Temperature 97.8 F 09/30/24 10:27 Pulse Rate 72 09/30/24 12:20 Respiratory Rate 26 H 09/30/24 12:20 Blood Pressure 176/72 H 09/30/24 12:02 Pulse Oximetry 100 09/30/24 12:20 Oxygen Delivery Method Room Air 09/30/24 11:14 Medical Decision Making MDM Narrative Medical decision making narrative: Her workup is nonspecific. CAT scan of her abdomen suggest constipation. She is requesting admission to an ECF as is the son. copy worker has seen her here as well. She is being admitted. Differential Diagnosis Differential Diagnosis: Generalized weakness, dehydration, pneumonia Lab Data Lab results reviewed: Yes I reviewed the patient's lab results Labs: Lab Results 09/30/24 Range/Units 10:46 WBC 10.5 (4.0-11.0) 10^3/uL RBC 4.16 L (4.20-5.40) 10^6/uL Hgb 12.8 (12.0-16.0) g/dL Hct 39.5 (36.0-48.0) % MCV 95.0 (81.0-99.0) fL MCH 30.8 (26.7-34.0) pg MCHC 32.4 (29.9-35.2) g/dL RDW 13.2 (11.0-15.0) % Plt Count 216 (150-450) 10^3/uL MPV 10.0 (9.5-13.5) fL Neut % (Auto) 72.0 (43.0-75.0) % Lymph % (Auto) 18.9 L (20.5-60.0) % [place] % (Auto) 7.2 (1.7-12.0) % Eos % (Auto) 0.8 L (0.9-7.0) % Baso % (Auto) 0.3 (0.2-2.0) % Neut # (Auto) 7.6 H (1.4-6.5) 10^3/uL Lymph # (Auto) 2.0 (1.2-3.8) 10^3/uL [place] # (Auto) 0.8 (0.3-0.8) 10^3/uL Eos # (Auto) 0.1 (0.0-0.7) 10^3/uL Baso # (Auto) 0.0 (0.0-0.1) 10^3/uL Abs Immat Gran (auto) 0.08 H (0.00-0.03) 10^3/uL Imm/Tot Granulo (auto) 0.8 H (0.0-0.5) % Sodium 138 (136-145) mmol/L Potassium 4.3 (3.5-5.1) mmol/L Chloride 103 (98-107) mmol/L Carbon Dioxide 25.7 (21.0-32.0) mmol/L Anion Gap 13.6 BUN 8.0 (7.0-18.0) mg/dL Creatinine 0.81 (0.55-1.02) mg/dL Est GFR ( Amer) >60 (>=60 mL/min/1.73m^2) Est GFR (Non-Af Amer) >60 (>=60 mL/min/1.73m^2) BUN/Creatinine Ratio 9.9 Glucose 112 H (74-106) mg/dL Calcium 9.5 (8.5-10.1) mg/dL Total Bilirubin 0.8 (0.2-1.0) mg/dL Direct Bilirubin 0.2 (0.0-0.2) mg/dL AST 17 (15-37) U/L ALT 27 (14-59) U/L Alkaline Phosphatase 85 (46-116) U/L Troponin I High Sens 10.4 (4.0-51.3) pg/mL Total Protein 6.4 (6.4-8.2) g/dL Albumin 3.3 L (3.4-5.0) g/dL Globulin 3.1 g/dL Albumin/Globulin Ratio 1.1 Amylase 25 (25-115) U/L Lipase 24.0 (16.0-77.0) U/L Imaging Data Chest x-ray, CT abdomen pelvis: Radiologist's impression: Chest x-ray: Questionable pleural effusions particular on the left, considered departmental [address] abdomen and pelvis: Mild atelectasis and small bilateral pleural effusions ECG Data Attestation: I personally reviewed and interpreted this ECG as follows: (EKG on my interpretation shows normal sinus rhythm with artifact) Discharge Plan Discharge Chief Complaint: Abdominal Pain Clinical Impression: Generalized weakness Patient Disposition: Admitted As Inpatient Time of Disposition Decision: 12:27 Condition: Fair
--- OUTSIDE RECORDS SUMMARY | 2024-09-30 10:47 | XMS_ITS | CCD ---
Author Organization [facility] Care Team Providers Care Message And Delivery Service Pricer Name Role Phone Unavailable Unavailable Libra, Dr. [...] SALUD Bryant Attending Unavailable HEMMER, DR SALUD Bryant Admitting Unavailable HEMMER, DR SALUD Bryant Consulting Unavailable LAYNE TERRAZAS Consulting Unavailable LAYNE TERRAZAS Attending Unavailable LAYNE TERRAZAS Admitting Unavailable DR YOSSI LANDERS Primary Care Unavailable DUANE BILLINGSLEY Consulting Unavailable AMAYA FRENCH Consulting Unavailable VIKY WILLIAMSON Consulting Unavailable REED LYNNE Consulting Unavailable Yossi Landers MD Primary Care Provider Yossi Landers MD Unavailable [phone] YOSSI LANDERS Primary Care Physician Ellen Glezamadianne AAjith Attending Unavailable Mouchli Mohamad AAjith Referring Unavailable Mouchli, Mohamad AAjith Admitting Unavailable Mouchli, Mohamad A. Attending Unavailable Mouchli Mohamad AAjith Admitting Unavailable Mouchli, Mohamad AAjith Attending Unavailable Mandi Glez AAjith Referring Unavailable Seble Mejia RN Unavailable Yossi Landers II Primary Care Provider Elmer Greene DO Attending Provider Elmer Greene Attending Unavailable Elmer Greene Admitting Unavailable Yossi Landers Primary Care Unavailable Alvarado MEDICAL TRANSCRIPTIONIST, Daniela Unavailable Unavailable BEL OJEDA Attending Unavailable ALESSANDRO LEVI Attending Unavailable YOSSI LANDERS Attending Unavailable KRISTEN WILLIAM Attending Unavailable CAILIN YOSSI B Referring Unavailable YOSSI LANDERS B Attending Unavailable YOSSI LANDERS B Attending Unavailable YOSSI LANDERS Attending Unavailable BEL OJEDA Attending Unavailable YOSSI ALNDERS B Attending Unavailable HEMSALUD HE Attending Unavailable CAILIN YOSSI B Attending Unavailable CAILIN YOSSI B Attending Unavailable YOSSI LANDERS Attending Unavailable HEMSALUD HE Attending Unavailable ALESSANDRO LEVI Attending Unavailable HEMSALUD HE Referring Unavailable ALESSANDRO LEVI A Attending Unavailable LANDERS, YOSSI B Attending Unavailable LANDERS, YOSSI B Referring Unavailable LANDERS, YOSSI B Attending Unavailable LANDERS, YOSSI B Attending Unavailable Allergies Allergy Classification Reported Allergen(s) Allergy Type Date of Onset Reaction(s) Facility (20 sources) Naproxen; 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: [Aleve TABS] Drug Allergy 1 Edema (finding), Unknown (qualifier value), Swelling -[facility] 250 DO Work Phone: Comment on above: Gogo oral edema (7 sources) rofecoxib; 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: [Vioxx] Drug Allergy Anaphylaxis [facility] Repository (1 source) Benztropine Drug Allergy 1 [facility] (1 source) Naproxen Drug Allergy 3 [facility] (4 sources) Naproxen; 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: [naproxen] Drug Allergy 9 Swelling of Lip/Tongue/Throat, gogo oral edema [facility] (1 source) rofecoxib Drug Allergy 3 [facility] (20 sources) Benztropine; 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: [benztropine] Drug Allergy 0 Other, Hallucinations (finding), Unknown (qualifier value) [facility] (20 sources) Benztropine; 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: [Benztropine Mesylate] Drug Allergy 0 Hallucinations [facility] Work Phone: Comment on above: Onset Date: 11/30/19 20 (4 sources) rofecoxib; 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: [rofecoxib] Drug Allergy 9 Unknown (qualifier value) [facility] (20 sources) rofecoxib Drug Allergy 4 [facility] Healthcare Medications Current Medications Medication Drug Class(es) Dates Sig (Normalized) Sig (Original) acetaminophen 325 mg / HYDROcodone bitartrate 7.5 mg oral tablet (20 sources) Opioid Agonist Start: 08-08-2024 End: 10-05-2024 take 1 tablet by mouth every six hours for pain HYDROcodone-acetami nophen (Solo) 7.5-325 MG tablet Indications: Degenerative lumbar spinal stenosis Take 1 tablet by mouth every 6 (six) hours if needed for severe pain 120 tablet 09/05/2024 10/05/2024 Active Start: 06-01-2024 End: 08-06-2024 take 1 tablet by mouth every six hours for pain HYDROcodone-acetaminophen (Solo) 7.5-32 5 MG tablet Indications: Degenerative lumbar spinal stenosis Take 1 tablet by mouth every 6 (six) hours if needed for severe pain 120 tablet 07/04/2024 08/06/2024 Discontinued (Reorder) Start: 03-02-2024 take 1 tablet by sky th every six hours for pain HYDROcodone-acetaminophen (Solo) 7.5-32 5 MG tablet Indications: Degenerative lumbar spinal stenosis Take 1 tablet by mouth every 6 (six) hours if needed for severe pain 120 tablet 03/02/2024 Active Start: 01-28-2024 End: 07-01-2024 take 1 tablet by mouth every six hours for pain HYDROcodone-acetaminophen (Solo) 7.5-32 5 MG tablet Indications: Degenerative lumbar spinal stenosis Take 1 tablet by mouth every 6 (six) hours if needed for severe pain 120 tablet 06/01/2024 07/01/2024 Active Start: 07-01-2023 End: 08-03-2023 take 1 tablet by mouth every six hours for pain HYDROcodone-acetaminophen (Solo) 7.5-32 5 MG tablet Indications: Degenerative lumbar [...] Ordered: 14-Oct-2021 DO Start : 14-Oct-2021 Active Start: 06-29-2018 take 1 tablet by sky th every six hours as needed for pain Hydrocodone-Acetaminophen 10-325 mg tabl et Active 1 TAB PO Q6H as needed for Pain June 29, 2018 12:00am albuterol 0.83 mg/ml inhalation solution (20 sources) beta2-Adrenergic Agonist Start: 09-29-2024 albut eric (2.5 MG/3ML) 0.083% nebulizer solution Indications: Panlobular emphysema (CMS/HCC) Take 3 mL (2.5 mg) by nebulization every 8 (eight) hours if needed for wheezing or shortness of breath 150 mL 5 09/29/2024 Active Start: 09-29-2024 albuterol (2.5 MG/3ML) 0.083% nebulizer solution Indications: Panlobular emphysema (CMS/HCC) Take 3 mL (2.5 mg) by nebulization every 8 (eight) hours if needed for wheezing or shortness of breath 150 mL 5 09/29/2024 Active Start: 12-21-2023 take 2.5 mg by inhal ation every six hours as needed albuterol 0.083% Inh Sabrina 3 mL 2.5 mg, 3 mL, Inhalation, q6hr Shortness of breath or wheezing, Refill(s) 12, Q6H and PRN Start Date: 12/21/23 Status: Ordered Start: 06-29-2018 take 2.5 mg by inhal ation three times daily Albuterol Sulfate 2.5 mg /3 mL (0.083 %) Solution For Nebulization Active 2.5 MG INHALATION Three times daily June 29, 2018 12:00am take 2 puff(s) by in halation every four hours albuterol HFA (ProAir HFA) 90 mcg/act inhaler Inhale 2 puffs every 4 (four) hours if needed. Active End: 09-29-2024 albuterol (2.5 MG/3ML) 0.083 % nebulizer solution Take 2.5 mg by nebulization every 8 (eight) hours if needed. 09/29/2024 Discontinued (Reorder) Albuterol (Eqv-ProAir HFA) 90 mcg/inh inhalation aerosol [...] mg oral tablet (20 sources) Benzodiazepine Start: 09-07-2024 End: 11-06-2024 take 1 tablet by mouth three times daily as needed for anxiety ALPRAZolam (Xanax) 0.25 MG tablet Indications: Depression with anxiety Take 1 tablet (0.25 mg) by mouth 3 (three) times a day as needed for anxiety 90 tablet 1 09/07/2024 11/06/2024 Active Start: 08-08-2024 End: 09-07-2024 take 1 tablet [...] Ordered: 11-Oct-2021 DO Start : 07-Oct-2021 Active Start: 06-29-2018 take 1 tablet by sky th once daily as needed for anxiety Alprazolam 0.25 mg tablet Active 1 TAB PO Daily as needed for Anxiety June 29, 2018 12:00am aspirin 81 mg delayed release oral tablet (20 sources) Platelet Aggregation Inhibitor, Nonsteroidal Anti-inflammatory Drug Start: 06-29-2018 take 1 tablet by mouth once daily aspirin 81 mg Oral EC Tab 81 mg = 1 tab(s), Oral, Daily, Refills(s) 0, Blood Thinner Start Date: 12/21/23 Status: Ordered atorvastatin 40 mg oral tablet (20 sources) HMG-CoA Reductase Inhibitor Start: 12-21-2023 atorvastatin (Lipitor) 40 MG tablet Indications: Mixed hyperlipidemia (CMS/HCC) TAKE 1 TABLET EVERY MORNING 90 tablet 3 02/09/2024 Active Start: 06-29-2018 End: 11-24-2023 take 1 tablet by mouth in the morning atorvastatin (Lipitor) 40 MG tablet Indications: Mixed hyperlipidemia (CMS/HCC) Take 1 tablet (40 mg) by mouth in the morning. 90 tablet 3 11/24/2022 11/24/2023 Active azithromycin 250 mg oral tablet (3 sources) Macrolide Antimicrobial Start: 09-27-2024 End: 10-02-2024 azithromycin (Zithromax) 250 MG tablet Take 250 mg by mouth Daily Take 500mg day 1 and then 250mg for 4 days 09/27/2024 10/02/2024 Active Blood Glucose Monitoring Suppl (ONE TOUCH ULTRA 2) w/Device kit (20 sources) Start: 11-05-2022 Blood Glucose Monitoring Suppl (ONE TOUCH ULTRA 2) w/Device kit Inject under the skin 1 (one) time each day. 11/05/2022 Active Start: 11-05-2022 Blood Glucose Monitoring Suppl (ONE TOUCH ULTRA 2) w/Device kit Inject under the skin 1 (one) time each day. 0 11/05/2022 Active brexpiprazole 2 mg oral tablet (8 sources) Atypical Antipsychotic Start: 11-24-2022 End: 11-24-2023 take 1 tablet by mouth in the morning Brexpiprazole (Rexulti) 2 MG tablet Indications: Depression with anxiety Take 2 mg by mouth in the morning. 90 tablet 3 11/24/2022 11/24/2023 Active Start: 08-17-2021 take 1 tablet by sky once daily Rexulti 2 MG Oral Tablet TAKE 1 TABLET BY MOUTH EVERY DAY FOR 90 DAYS Quantity: 90 Refills: 0 Ordered: 19-Aug-2021 DO Start : 17-Aug-2021 Active Start: 06-29-2018 take 1 tablet by sky th once daily Brexpiprazole 1 mg tablet Active 1 TAB PO Daily June 29, 2018 12:00am 120 actuat budesonide 0.16 mg/actuat / formoterol fumarate 0.0048 mg/actuat / glycopyrrolate 0.009 mg/actuat metered dose inhaler (20 sources) Corticosteroid, beta2-Adrenergic Agonist Start: 05-02-2024 End: 05-02-2025 take 2 puff(s) by inhalation in the morning Inensou-Alauwiomohr-Hsrqnxhzip (Breztri Aerosphere) 160-9-4.8 MCG/ACT aerosol Indications: Panlobular emphysema (CMS/HCC) Inhale 2 puffs in the morning and 2 puffs before bedtime. 10.7 g 11 05/02/2024 09/29/2024 Discontinued smoking cessation 12 hr buPROPion hydrochloride 150 [...] tablet 3 01/25/2024 06/10/2024 Discontinued (Ineffective) Start: 11-24-2022 End: 11-24-2023 take 1 tablet by mouth every twelve hours in the morning buPROPion (Zyban) 150 MG 12 hr tablet Indications: Depression with anxiety Take 1 tablet (150 mg) by mouth in the morning and 1 tablet (150 mg) before bedtime. 180 tablet 3 11/24/2022 11/24/2023 Active Start: 05-01-2021 take 1 tablet by sky twice daily buPROPion HCl ER (Smoking Det) 150 MG Oral Tablet Extended Release 12 Hour TAKE 1 TABLET BY MOUTH TWICE A DAY Quantity: 180 Refills: 0 Ordered: 01-Aug-2021 DO Start : 01-May-2021 Active Start: 06-29-2018 take 1 mg by mouth twice daily buPROPion 150 mg ER Tab mg tab(s), Oral, BID, Refills(s) 0, Anxiety Start Date: 12/21/23 Status: Ordered carvedilol 12.5 mg oral tablet (20 sources) alpha-Adrenergic Ana, beta-Adrenergic Ana Start: 06-29-2018 take 1 tablet by mouth in the morning carvedilol (Coreg) 12.5 MG tablet Indications: 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) TAKE 1 TABLET (12.5 MG) BY MOUTH IN THE MORNING AND 1 TABLET (12.5 MG) BEFORE BEDTIME. 180 tablet 3 12/16/2023 Active ciprofloxacin 500 mg oral tablet (2 [...] Active Start: 07-30-2021 take 1 capsule by [facility] once daily DULoxetine HCl - [...] tablet (20 sources) Histamine-2 Receptor Antagonist Start: 10-26-19 End: 04-27-20 take 1 tablet by mouth at bedtime famotidine (Pepcid) 20 MG tablet Indications: Sore throat TAKE 1 TABLET BY MOUTH AT BEDTIME 90 tablet 2024 Active fluticasone propionate 0.05 mg/actuat metered dose nasal spray (2 sources) Corticosteroid Start: 11-25-19 End: 11-24-19 take 1 spray(s) nasal route in the morning fluticasone (Flonase Allergy Relief) 50 MCG/ACT nasal spray Indications: Chronic allergic rhinitis Administer 1 spray into each nostril in the morning. 16 g 11 11/24/2022 11/24/2023 Active 30 actuat fluticasone furoate 0.1 mg/actuat / umeclidinium 0.0625 mg/actuat / vilanterol 0.025 mg/actuat dry powder inhaler (12 sources) Anticholinergic, Corticosteroid, beta2-Adrenergic Agonist Start: 08-25-19 take 1 puff(s) by inhalation once daily Fluticasone-Umecli din-Vilant (Trelegy Ellipta) 100-62.5-25 MCG/ACT aerosol powder Indications: Panlobular emphysema (CMS/HCC) Inhale 1 puff Daily 3 each 3 08/24/2024 Active Start: 07-29-2024 take 1 puff(s) by inhalation once daily Lxgxotemspn-Xzauolfcf-Eihxke (Trelegy Ellipta) 100-62.5-25 MCG/ACT aerosol powder Indications: Panlobular emphysema (CMS/HCC) Inhale 1 puff Daily 1 each 5 07/29/2024 Active furosemide 40 mg oral tablet (20 sources) Loop Diuretic Start: 06-29-2018 furosemide (Lasix) 40 MG tablet Indications: Essential hypertension (CMS/HCC) TAKE 1 TABLET EVERY MORNING 90 tablet 3 02/09/2024 Active gabapentin 100 mg oral capsule (20 sources) Anti-epileptic Agent Start: 06-29-2018 End: 07-05-2025 take 2 capsules by mouth in the morning gabapentin (Neurontin) 100 MG capsule Indications: Type 2 diabetes mellitus with diabetic neuropathy, without long-term current use of insulin (CMS/HCC) Take 2 capsules (200 mg) by mouth in the morning and 2 capsules (200 mg) before bedtime. 360 capsule 3 07/05/2024 07/05/2025 Active glyBURIDE 2.5 mg oral tablet (1 source) Sulfonylurea Start: 06-29-2018 take 1 tablet by mouth once daily Glyburide 2.5 mg tablet Active 1 TAB PO Daily June 29, 2018 12:00am ipratropium bromide 0.042 mg/actuat metered dose nasal [...] mg oral tablet (20 sources) l-Thyroxine Start: 12-21-2023 take 1 tablet by mouth [...] 90 tablet 3 12/16/2023 12/15/2024 Active Start: 06-29-2018 End: 11-24-2023 take 1 tablet by mouth before mealtime levothyroxine (Synthroid, Levoxyl) 100 MCG tablet Indications: Acquired hypothyroidism (CMS/HCC) Take 1 tablet (100 mcg) by mouth in the morning. Take before meals. 90 tablet 3 11/24/2022 11/24/2023 Active linaclotide 0.29 mg oral capsule (20 sources) Guanylate Cyclase-C Agonist Start: 12-21-2023 linaCLOtide (Linzess ) 290 MCG capsule Take by mouth 12/21/2023 Active Start: 12-21-2023 take 1 ug by mouth once daily Linzess 290 mcg oral capsule mcg cap(s), Oral, Daily, Refills(s) 0, Constipation Start Date: 12/21/23 Status: Ordered Start: 01-02-2022 take 1 capsule by mo ut once daily Linzess 290 MCG Oral Capsule TAKE 1 CAPSULE BY MOUTH EVERY DAY FOR 90 DAYS Quantity: 90 Refills: 0 Ordered: 02-Jan-2022 DO Start : 02-Jan-2022 Active lisinopril 5 mg oral tablet (20 sources) Angiotensin Converting Enzyme Inhibitor Start: 12-21-2023 lisinopril 5 MG tabl et Indications: Essential hypertension (CMS/HCC) TAKE 1 TABLET EVERY MORNING 90 tablet 3 02/09/2024 Active Start: 06-29-2018 End: 07-27-2023 take 1 tablet by mouth in the morning lisinopril 5 MG tablet Indications: Essential hypertension (CMS/HCC) Take 1 tablet (5 mg) by mouth in the morning. 100 tablet 3 07/27/2023 Active loratadine 10 mg oral tablet (20 sources) Start: 06-29-2018 End: 05-02-2024 take 1 tablet by mouth once daily loratadine (Claritin) 10 MG tablet Indications: Allergic rhinitis, unspecified Take 1 tablet (10 mg) by mouth Daily 100 tablet 3 05/02/2024 Active loratadine (Claritin) 5 mg split tablet [...] package instructions 21 tablet 06/10/2024 06/17/2024 Active metOLazone 2.5 mg oral tablet (5 sources) Thiazide-like Diuretic Start: 09-14-2024 End: 09-29-2024 take 1 tablet by mouth once daily metOLazone (Zaroxolyn) 2.5 MG tablet Indications: 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) Take 1 tablet (2.5 mg) by mouth Daily for 7 days 7 tablet 09/14/2024 09/29/2024 Discontinued (Side effects) Multiple Vitamins-Minerals (OCUVITE ADULT 50+ PO) (20 [...] sublingual tablet (20 sources) Nitrate Vasodilator Start: 06-29-2018 nitroglycerin 0.4 mg sublingual Tab 0.4 mg = 1 tab(s), SubLingual, q5min, PRN for chest pain, # 100 tab(s), Refills(s) 0 Start Date: 12/21/23 Status: Ordered nystatin 100 unt/mg topical ointment (20 sources) Polyene Antifungal nystatin (Myc ostatin) ointment every 12 (twelve) hours. Active omeprazole 40 mg delayed release oral capsule (20 sources) Proton Pump Inhibitor Start: 09-29-2024 take 1 capsule by mouth in the morning omeprazole (PriLOSEC) [address] capsule Indications: Gastroesophageal reflux disease without esophagitis Take 1 capsule (40 mg) by mouth in the morning. Do not crush or chew.. 09/29/2024 Active Start: 09-29-2024 take 1 capsule by mo uth in the morning omeprazole (PriLOSEC) [address] capsule Indications: Gastroesophageal reflux disease without esophagitis Take 1 capsule (40 mg) by mouth in the morning. Do not crush or chew.. 09/29/2024 Active Start: 12-16-2023 End: 09-29-2024 take 1 capsule by mouth before mealtime omeprazole (PriLOSEC) [address] capsule Indications: Gastroesophageal reflux disease without esophagitis TAKE 1 CAPSULE (40 MG) BY MOUTH IN THE MORNING. TAKE BEFORE MEALS. 90 capsule 3 12/16/2023 09/29/2024 Discontinued (Reorder) Start: 12-10-2022 omeprazole (Pr iLOSEC) [address] capsule Indications: Gastroesophageal reflux disease without esophagitis TAKE 1 CAPSULE BY MOUTH EVERY DAY 30 MINUTES BEFORE MORNING MEAL FOR 30 DAYS 90 capsule 3 12/10/2022 Active ondansetron 4 mg disintegrating oral tablet (20 sources) Serotonin-3 Receptor Antagonist Start: 09-20-2024 End: 09-29-2024 take 1 tablet by mouth every six hours as needed for nausea and vomiting ondansetron ODT (Zofran-ODT) 4 MG disintegrating tablet Take 4 mg by mouth every 6 (six) hours if needed for nausea or vomiting 09/20/2024 09/29/2024 Discontinued (Duplicate order) Start: 08-08-2024 End: 10-08-2024 take 2 tablets by mouth every eight hours as needed for nausea and vomiting and nausea and nausea ondansetron (Zofran) 4 MG tablet Indications: Nausea Take 2 tablets (8 mg) by mouth every 8 (eight) hours if needed for nausea or vomiting 60 tablet 1 09/08/2024 10/08/2024 Active Start: 07-05-2024 End: 08-06-2024 take 2 [...] 60 tablet 1 01/22/2024 02/21/2024 Active Miralax (4 sources) Osmotic Laxative Start: 12-21-2023 take 1 g by mouth once daily MiraLax gm, Oral, Daily, Refill(s) 0 Start Date: 12/21/23 Status: Ordered Start: 06-29-2018 End: 11-24-2023 polyethylene glycol, PEG, 33 50 (MiraLax) 17 GM/SCOOP powder Indications: Chronic constipation Take 17 g by mouth in the morning. 1530 g 3 11/24/2022 11/24/2023 Active Polyethylene Glycols (8 sources) Start: 08-13-2024 take 17 g by mouth once daily as needed for constipation polyethylene glycol, PEG, 3350 (Glycolax, Miralax) powder Indications: Constipation Take 17 g by mouth Daily as needed (constipation) 08/13/2024 Active microencapsulated potassium chloride 20 meq extended [...] Ordered: 13-Sep-2021 DO Start : 13-Sep-2021 Active predniSONE 20 mg oral tablet (3 sources) Start: 09-24-2024 End: 09-29-2024 take 1 tablet by mouth in the morning, then take 1 tablet by mouth at bedtime predniSONE (Deltasone) 20 MG tablet Take 20 mg by mouth in the morning and 20 mg before bedtime. 5 days. 09/24/2024 09/29/2024 Discontinued (Side effects) raNITIdine 150 mg oral tablet (1 source) Histamine-2 Receptor Antagonist Start: 06-29-2018 take 1 tablet by mouth once daily Ranitidine Hcl 150 mg tablet Active 1 TAB PO Daily June 29, 2018 12:00am torsemide 20 mg oral tablet (7 sources) Loop Diuretic Start: 09-07-2024 End: 09-07-2025 take 1 tablet by mouth once daily torsemide (Demadex) 20 MG tablet Indications: 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) Take 1 tablet (20 mg) by mouth Daily 30 tablet 11 09/07/2024 09/07/2025 Active vilazodone hydrochloride 40 mg oral tablet (1 source) Start: 06-29-2018 take 1 tablet by mouth once daily Vilazodone 40 mg tablet Active 1 TAB PO Daily June 29, 2018 12:00am Completed/Discontinued Medications Medication Drug Class(es) Dates Sig [...] / salmeterol 0.05 mg/actuat dry powder inhaler (8 sources) Corticosteroid, beta2-Adrenergic Agonist Start: 10-18-2020 take 1 puff(s) by mouth twice daily Advair Diskus 250-50 MCG/ACT Inhalation Aerosol Powder Breath Activated TAKE 1 PUFF BY MOUTH TWICE A DAY Quantity: 180 Refills: 0 Ordered: 29-Jul-2021 DO Start : 18-Oct-2020 Active Start: 06-29-2018 take 1 puff(s) by in halation twice daily Fluticasone Propion-Salmeterol 250-50 mcg/dose blister with device Active 1 PUFF INHALATION Twice daily June 29, 2018 12:00am take 1 puff(s) by in halation in the morning fluticasone-salmeterol (Advair Diskus) 250-50 MCG/DOSE diskus inhaler Inhale 1 puff in the morning and 1 puff before bedtime. 0 Active 1 ml triamcinolone acetonide 40 mg/ml prefilled syringe (4 sources) Corticosteroid Start: 09-29-2024 End: 09-29-2024 triamcinolone acetonide (Kenalog-40) injection 40 mg Start: 09-29-2024 End: 09-29-2024 inject 40 mg by intramuscular injection once 40 mg, Intramuscular, Once, On Leonor 09/29/24 at 1130, For 1 dose Problems Active Problems Problem Classification Problem Date [...] [Coronary atherosclerosis of unspecified type of vessel, [place] or graft] Onset: 04-14-2022 11-04-2022 Chronic Diabetes [...] reflux disease] Onset: 12-05-2021 Chronic Essential hypertension (20 sources) Hypertensive disorder; 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: [Unspecified essential hypertension] Onset: 11-04-2022 07-27-2023 Chronic Fluid and electrolyte disorders (2 sources) Hyponatremia; 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: [Hypo-osmolality and hyponatremia] 09-29-2024 Episodic Hypertension with complications and secondary hypertension (20 [...] [Tinea unguium] 04-22-2024 Episodic Nausea and vomiting (6 sources) Nausea; 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: [Nausea] Onset: 09-29-2024 08-06-2024 Episodic Occlusion or stenosis of precerebral [...] 08-25-2022 11-04-2022 Chronic Other aftercare (1 source) skilled nursing (current) use of aspirin; 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: [ENDS DOWN CHECKER CURRENT USE OF ASPIRIN] Onset: 10-23-2022 Episodic Other aftercare (1 source) Other [facility] (current) drug therapy; 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: [OTH INTERMEDIATE CURRENT DRUG THERAPY] Onset: 10-23-2022 Episodic Other aftercare (1 source) skilled nursing (current) use of inhaled steroids; Translations: [INTERMEDIATE USE OF INHALED STEROIDS] Onset: 10-23-2022 Episodic [...] caused by tuberculosis or sexually transmitted disease) (3 sources) Pneumonia, unspecified organism; Translations: [Community acquired pneumonia] Onset: 10-23-2022 09-29-2024 Episodic Residual codes; unclassified (1 source) Hypersomnia; [...] unspecified] Onset: 11-04-2022 11-04-2022 Chronic Thyroid disorders (20 sources) Hypothyroidism, unspecified; Translations: [...] Test Name Value Interpretation Reference Range Facility Urine Cultureon 08-13-2024 Bacteria identified Cx Nom (U) No Growth 2 Days PERFORMED BY: [facility] [address] [place] [address] PATHOLOGIST DYER ASSISTANT TRACI MCDONNELL M.D. Normal [facility] Comment on above: Performed By: #### C UU #### [facility] [address] [place] [address] [facility] Pulmonary function reporton 05-04-2024 PFT Interpretation 84-year-old [...] defect. Clinical correlation is recommended. [facility] Pulmonary function reportOrd ered By: Kristen William on 05-04-2024 [facility] Work Phone: Pulmonary function reporton 05-03-2024 Radiology Study observation (narrative) [facility] Laboratory - Hematology and Cell countson 05-02-2024 HbA1c (Bld) [Mass fraction] 5.5 % [facility] No Panel Informationon 05-02 [facility] Surgical Pathology Reporton 03-10-2024 Surgical Pathology Report [address] [place] [address]- Surgical Pathology Report Collected Date/Time: 03/08/2024 10:15 [...] is entirely submitted in one cassette. (DC) DC:[facility] Microscopic Description A&B: Microscopic examination performed unless gross only specified. Normal [facility] Comment on above: Performed By: #### [id number] #### [facility] [address] [place] [address] Main OR Intraoperative Recor don 03-09-2024 Main OR Intraoperative Record Main OR Intraoperative Record IntraOp Document Type FT Summary Primary Physician: Mandi Glez MD Finalized Date/Time: 03/09/24 10:12:42 Pt. Name: ELIER NORWOODDORON Tim D.O.B./Sex: 1940 Female Med Rec #: [id number] Physician: Mandi Glez MD Financial #: [id number] Pt. Type: O Room/Bed: / Admit/Disch: 03/08/24 [...] Role Performed Anesthesiologist of Surgeon - Primary Brewery Technician - Primary Record Time In 03/08/24 09:48:00 03/08/24 09:48:00 03/08/24 09:48:00 Time Out 03/08/24 10:16:00 03/08/24 10:16:00 03/08/24 10:16:00 Procedure COLONOSCOPY(.) COLONOSCOPY(.) COLONOSCOPY(.) Comments Last Modified By: Tammy Santos RN, RN, Tammy Fenton RN 03/08/24 10:16:04 03/08/24 [...] Grace MD, Given Participants Mandi Glez MD, Workman RN, Angela, Schafer CST, Alexandria M Time Out Complete [...] and tissue Entry 1 Skin Integrity Intact, [place], Warm, & Skin Abnormality No Dry Outcomes [...] Position Resting (more content not included)... Normal [facility] Discharge Instructionson Discharge Instructions Discharge Instructions ELIER NORWOODDORON Tmi :1940 Visit Date:03/08/2024 Inpatient Discharge Instructions Your Care Team Admitting Physician - Mandi Glez MD Referring Physician - Mandi Glez MD Reason for Your Visit ABNORMAL CT SCAN [...] Up with Amaris VALDEZ, Mandi Red GAS, MED When: Comments: Office will call to schedule follow up appointment and/or review any pending biopsy results Call for any problems. Where: [address] [place] [address], [address] [place] [address]- [phone] Medications What How Much When Instructions Next [...] paper. FOL (more content not included)... Normal [facility] Comment on above: Result Comment: Elec tronically Signed By: Yoanna Jhaveri RN\.br\Date and Time Signed: 03/08/24 10:37 EDT Main OR PACU I Recordon 02-20 Main OR PACU I Record Main OR PACU I Record PACU Phase I Document Type FT Summary Primary Physician: Mandi Glez MD Finalized Date/Time: 03/08/24 11:14:03 Pt. Name: JAQUELIN NORWOOD Glenroy Bradley/Sex: 1940 Female Med Rec #: [id number] Physician: Mandi Glez MD Financial #: [id number] Pt. Type: O Room/Bed: / Admit/Disch: 03/08/24 [...] By: Yoanna Jhaveri RN 03/08/24 11:14 Normal [facility] Main OR Preoperative Recordo n 03-08-2024 Main OR Preoperative Record Main OR Preoperative Record Holding Area Document Type FT Summary Primary Physician: Mandi Glez MD Finalized Date/Time: 03/08/24 08:51:04 Pt. Name: CUCOJAQUELIN/Sex: 1940 Female Med Rec #: [id number] Physician: Mandi Glez MD Financial #: [id number] Pt. Type: O Room/Bed: / Admit/Disch: 03/08/24 [...] By: Ysabel Kelly RN 03/08/24 08:51 Normal [facility] Operative Reporton Operative Report Operative Report Patient: JAQUELIN NORWOOD Age: 83 years Sex: Female : 1940 Associated Diagnoses: None Author: Mandi Glez MD Pre-Procedure Procedure Date 03/08/2024 10:15:00 . Procedure Type: Colonoscopy with removal of tumor(s), polyp(s), or other lesion(s) by cold snare technique. Procedure provider Performed by Mandi Glez MD. Current history and physical Documented on chart. EGD - esophagogastroduodenoscopy ([id number]) on 02/03/2024 at 83 Years. Colonoscopy ([id number]) on 02/03/2024 at 83 Years.. Past Medical History No active or resolved past medical history items have been selected or recorded.. Family History Heart disease Mother Diabetes mellitus type 2 Mother Cancer Father Mother . Procedure History EGD - esophagogastroduodenoscopy ([id number]) on 02/03/2024 at 83 Years. Colonoscopy ([id number]) on 02/03/2024 at 83 Years.. Colorectal neoplasm [...] colon 6. Internal hemorrhoids Images Procedure images: Rec_hd_video___ 12_54_071.jpg Rec1_hd_video___ 16_33_113.jpg Rec1_hd_video__09_ 17_31_091.jpg Rec1_hd_video___ 17_42_307.jpg Rec1_hd_video___ 18_59_330.jpg Rec1_hd_video___ 20_08_152.jpg Rec1_hd_video___ 22_43_176.jpg . Post-Procedure Complications: none. Estimated blood loss: Minimal. Specimens: sent to pathology. Devices/ implants: none left in place. Impression and Plan 6 colon polyps?removed as above Redundant colon with excessive mucus Diverticulosis Internal hemorrhoids Recommendations: Repeat colonoscopy:: None given age and comorbiditties . Follow-up:: in clinic for 1-2 weeks when p (more content not included)... Normal [facility] Comment on above: Result Comment: Elec tronically Signed By: Amaris VALDEZ, Mandi Red\.br\Date and Time Signed: 03/08/24 10:18 EDT Other Comment: Ayana perry Attachment - attachment storage system not supported [id number] Can be viewed in source systemMissing Attachment - attachment storage system not supported [id number] Can be viewed in source systemMissing Attachment - attachment storage system not supported [id number] Can be viewed in source systemMissing Attachment - attachment storage system not supported [id number] Can be viewed in source systemMissing Attachment - attachment storage system not supported [id number] Can be viewed in source systemMissing Attachment - attachment storage system not supported [id number] Can be viewed in source systemMissing Attachment - attachment storage system not supported [id number] Can be viewed in source system H&P [...] Diagnosis: abnl CT - colonoscopy H&P Normal [facility] Operative Report Operative Report Patient: JAQUELIN NORWOOD [...] Plan Diagnosis: abnl CT - colonoscopy Normal [facility] Comment on above: Result Comment: Elec tronically [...] Diagnosis: Abnormal CT scan Sigmoidoscopy H&P Normal [facility] Operative Report Operative Report Patient: JAQUELIN NORWOOD [...] Plan Diagnosis: Abnormal CT scan Sigmoidoscopy Normal [facility] Comment on above: Result Comment: Elec tronically Signed By: Amaris VALDEZ, Mandi Yeager.br\Date and Time Signed: 03/08/24 09:49 EDT Gastroenterology [...] Cancer: Mo (more content not included)... Normal [facility] Comment on above: Result Comment: Elec tronically Signed By: Dania Antonio I\.br\Date and Time Signed: 03/02/24 09:23 EDT 07 Addendum Reporton 024 07 Addendum Report [facility] [address] [place] [address]- Surgical Pathology Report Collected Date/Time: 02/03/2024 10:21 EDT Pathologist: Meng Vyas MD Received Date/Time: 02/03/2024 11:48 EDT Amaris VALDEZ, Mandi Glez MD, Mandi Cohen Addendum Report - 02/05/2024 16:13 EDT - [...] is entirely submitted in one cassette. (DC) DC:[facility] Surgical Pathology Report Collected Date/Time: 02/03/2024 10:21 EDT Pathologist: Meng Vyas MD Received Date/Time: 02/03/2024 11:48 EDT Amaris VALDEZ, Mandi Glez MD, Mandi Red Microscopic Description A&B: Microscopic examination performed unless gross only specified. The use of one or more reagents in the above tests is regulated as an analyte specific reagent (ASR). The test or tests are ordered following initial H&E microscopic examination. The performance characteristics were determined by the Laboratory [facility]. They have not been cleared or approved by the US Food and Drug Administration. The FDA has determined that such clearance or approval is not necessary. These tests are used for clinical purposes. They should not be regarded as investigational or for research. Appropriate positive and negative controls are performed and are acceptable. Normal [facility] Comment on above: Performed By: #### C [id number] #### [facility] [address] [place] [address] Main OR Intraoperative Recor don 02-04-2024 Main OR Intraoperative Record Main OR Intraoperative Record IntraOp Document Type FT Summary Primary Physician: Mandi Glez MD Finalized Date/Time: 02/04/24 08:30:09 Pt. Name: JAQUELIN NORWOOD /Sex: 1940 Female Med Rec #: [id number] Physician: Mandi Glez MD Financial #: [id number] Pt. Type: O Room/Bed: / Admit/Disch: 02/03/24 [...] 1 Entry 2 Entry 3 Case Attendee Tiago Peterson DO, RN, Karla Vu Role Performed Anesthesiologist of Brewery Technician - Primary Staff - Other Record Time [...] By: Ruthy (more content not included)... Normal [facility] Surgical Pathology Reporton 02-04-2024 Surgical Pathology Report [address] [address]- Surgical Pathology Report Collected Date/Time: 02/03/2024 10:21 [...] is entirely submitted in one cassette. (DC) DC:[facility] Microscopic Description A&B: Microscopic examination performed unless gross only specified. The use of one or more reagents in the above tests is regulated as an analyte specific reagent (ASR). The test or tests are ordered following initial H&E microscopic examination. The performance characteristics were determined by the Laboratory [facility]. They have not been cleared or approved by the US Food and Drug Administration. The FDA has determined that such clearance or approval is not necessary. These tests are used for clinical purposes. They should not be regarded as investigational or for research. Appropriate positive and negative controls are performed and are acceptable. Normal [facility] Comment on above: Performed By: #### [id number] #### [facility] [address] [place] [address] Discharge Instructionson Discharge Instructions Discharge Instructions ELIER NORWOODDORON Tim :1940 Visit Date:02/03/2024 Inpatient Discharge Instructions Your Care Team Admitting Physician - Mandi Glez MD. Referring Physician - Mandi Glez MD Reason [...] Up with Amaris VALDEZ, Mandi Red GAS, MED When: Comments: Office will call Date and Time of Follow-up Appt. Where: [address] [place] [address], [address] [place] [phone] Medications What How Much When Instructions Next [...] including vitamins, herbs, eye drops, creams, and wffl-czh-jlnenqd medicines. ? Any problems you or family [...] Taking medi (more content not included)... Normal [facility] Comment on above: Result Comment: Elec tronically Signed By: Saida Rey RN\.br\Date and Time Signed: 02/03/24 10:39 EDT Main OR PACU I Recordon 01-20 Main OR PACU I Record Main OR PACU I Record PACU Phase I Document Type FT Summary Primary Physician: Mandi Glez MD Finalized Date/Time: 02/03/24 16:03:27 Pt. Name: JAQUELIN NORWOOD Glenroy Xavier./Sex: 1940 Female Med Rec #: [id number] Physician: Mandi Glez MD Financial #: [id number] Pt. Type: O Room/Bed: / Admit/Disch: 02/03/24 [...] 10:55 Saida Rey RN 02/03/24 16:03 Normal [facility] Main OR Preoperative Recordo n 02-03-2024 Main OR Preoperative Record Main OR Preoperative Record Holding Area Document Type FT Summary Primary Physician: Mandi Glez MD Finalized Date/Time: 02/03/24 09:17:23 Pt. Name: ELIER NORWOODDORON Glaser/Sex: 1940 Female Med Rec #: [id number] Physician: Mandi Glez MD Financial #: [id number] Pt. Type: O Room/Bed: / Admit/Disch: 02/03/24 [...] 09:03 Saida Rey RN 02/03/24 09:17 Normal [facility] Operative Reporton Operative Report Operative Report Patient: [...] The procedure was aborted Images Procedure images: Rec1_hd_video_2024_08_14T09_ 35_37_819.jpg . Post-Procedure Complications: none. Estimated blood loss: none. Specimens: none. Devices/ implants: none left in place. Impression and Plan poor bowel prep Recommendations: Repeat colonoscopy:: Next available with 2-day prep . Follow-up:: in clinic as scheduled. Diet:: Previous. Medication resumption:: Continue current medications, Avoid NSAIDs. Return to activities:: After 24 hours. Education and Follow-up: Counseled: Patient, Family. [facility] Comment on above: Result Comment: Elec tronically Signed By: Amaris VALDEZ, Mandi Red\.br\Date and Time Signed: 02/03/24 10:31 EDT Other Comment: Ayana perry Attachment - attachment storage system not supported [id number] Can be viewed in source system Operative [...] bulb. otherwise, normal duodenum. Images Procedure images: Rec1_hd_video_2023__14T09_ _26_067.jpg Rec1_hd_video_2023__14T09_ 26_34_629.jpg Rec1_hd_video_2023__14T09_ 26_43_827.jpg Rec1_hd_video_2023__14T09_ 26_55_948.jpg Rec1_hd_video_2023__14T09_ 27_13_375.jpg Rec1_hd_video_2023__14T09_ 27_35_569.jpg Rec1_hd_video_2023__14T09_ 28_31_722.jpg Rec1_hd_video_2023__14T09_ 28_44_158.jpg Rec1_hd_video_2023__14T09_ 29_17_870.jpg Rec1_hd_video_2023__14T09_ 29_43_284.jpg Rec1_hd_video_2023__14T09_ 31_02_072.jpg Rec1_hd_video__14T09_ 32_03_161.jpg . Post-Procedure Complications: none. Estimated blood loss: none. Specimens: None. Devices/ implants: none left in place. Impression and Plan Schatzki's ring and esophageal stricture status post dilation Gastropathy Duodenitis Recommendations: -Liquid then soft diet today, advance as tolerated (more content not included)... Normal [facility] Comment on above: Result Comment: Elec tronically Signed By: Mandi Glez MD\.br\Date and Time Signed: 02/03/24 10:30 EDT Other Comment: Ayana perry Attachment - attachment storage system not supported [id number] Can be viewed in source system Missing Attachment - attachment storage system not supported [id number] Can be viewed in source system Missing Attachment - attachment storage system not supported [id number] Can be viewed in source system Missing Attachment - attachment storage system not supported [id number] Can be viewed in source system Missing Attachment - attachment storage system not supported [id number] Can be viewed in source system Missing Attachment - attachment storage system not supported [id number] Can be viewed in source system Missing Attachment - attachment storage system not supported [id number] Can be viewed in source system Missing Attachment - attachment storage system not supported [id number] Can be viewed in source system Missing Attachment - attachment storage system not supported [id number] Can be viewed in source system Missing Attachment - attachment storage system not supported [id number] Can be viewed in source system Missing Attachment - attachment storage system not supported [id number] Can be viewed in source system Missing Attachment - attachment storage system not supported [id number] Can be viewed in source system Ambulatory Visit Summaryon 0 12-21-2023 Ambulatory Visit Summary Ambulatory Visit Summary JAQUELIN NORWOOD :1940 Visit Date:12/21/2023 Ambulatory Visit Instructions Your Diagnosis Esophageal dysmotility Esophageal dysphagia Cholelithiasis History of gastric surgery Abnormal CT of the abdomen Your Care Team Attending Physician - Mandi Glez MD Primary Care Physician - YOSSI LANDERS MD [...] for choosing us for your care. Normal [facility] Physician Referralon 024 Physician Referral [id number] Normal [facility] CORTISOL FREE, SERUMon 10-24 Cortisol, Free Dialysis, LCMS 0.462 ug/dL Normal [facility] Comment on above: Result Comment: Thes e tests were developed and their performance characteristics determined by [employer]. They have not been cleared or approved by the Food and Drug Administration. Reference Range: 8 AM 0.10 - 1.20 4 PM 0.042 - 0.872 Performed By: #### E RUR #### [facility] [address] [place] [address] Dr. Soila Pastor CBC AUTO DIFFon 10-16-2022 BASO # 0.0 103/ul Normal 0.0-0.1 [facility] Comment on above: Performed By: #### C BC #### [facility] [address] [place] [address] Dr. Soila Pastor Basophils/100 WBC (Bld) 0.4 % Normal 0.2-2.0 [facility] Comment on above: Performed By: #### C BC #### [facility] [address] [address] [address] Soila Pastor EO # 0.1 103/ul Normal 0.0-0.7 [facility] Comment on above: Performed By: #### C BC #### [facility] [address] [place] [address] Dr. Soila Pastor Eosinophils/100 WBC (Bld) 1.0 % Normal 0.9-7.0 [facility] Comment on above: Performed By: #### C BC #### [facility] [address] [place] [address] Dr. Soila Pastor Erythrocyte distribution width (RBC) [Ratio] 13.4 % Normal 11.0-15.0 [facility] Comment on above: Performed By: #### C BC #### [facility] [address] [place] [address] Dr. Soila Pastor Hematocrit (Bld) [Volume fraction] 34.7 % Critically low 36.0-48.0 [facility] Comment on above: Performed By: #### C BC #### [facility] [address] [place] [address] Dr. Soila Pastor Hemoglobin (Bld) [Mass/Vol] 10.8 g/dL Critically low 12.0-16.0 [facility] Comment on above: Performed By: #### C BC #### [facility] [address] [place] [address] Dr. Soila Pastor IG # 0.03 10e3/ul Normal 0.00-0.03 [facility] Comment on above: Performed By: #### C BC #### [facility] [address] [place] [address] Dr. Soila Pastor IG % 0.4 % Normal 0.0-0.5 [facility] Comment on above: Performed By: #### C BC #### [facility] [address] [place] [address] Dr. Soila Pastor LYMPH # 1.7 103/ul Normal 1.2-3.8 [facility] Comment on above: Performed By: #### C BC #### [facility] [address] [place] [address] Dr. Soila Pastor Lymphocytes/100 WBC (Bld) 22.1 % Normal 20.5-60.0 [facility] Comment on above: Performed By: #### C BC #### [facility] [address] [place] [address] Dr. Soila Pastor MANUAL DIFF REQ NO Normal [facility] Comment on above: Performed By: #### C BC #### [facility] [address] [place] [address] Dr. Soila Pastor MCH (RBC) [Entitic mass] 30.0 pg Normal 26.7-34.0 [facility] Comment on above: Performed By: #### C BC #### [facility] [address] [place] [address] Dr. Soila Pastor MCHC (RBC) [Mass/Vol] 31.1 g/dL Normal 29.9-35.2 [facility] Comment on above: Performed By: #### C BC #### [facility] [address] [place] [address] Dr. Soila Pastor MCV (RBC) [Entitic vol] 96.4 fL Normal 81.0-99.0 [facility] Comment on above: Performed By: #### C BC #### [facility] [address] [place] [address] Dr. Soila Pastor MONO # 0.5 103/ul Normal 0.3-0.8 [facility] Comment on above: Performed By: #### C BC #### [facility] [address] [place] [address] Dr. Soila Pastor Monocytes/100 WBC (Bld) 6.9 % Normal 1.7-12.0 [facility] Comment on above: Performed By: #### C BC #### [facility] [address] [place] [address] Dr. Soila Pastor NEUT # 5.4 103/ul Normal 1.4-6.5 [facility] Comment on above: Performed By: #### C BC #### [facility] [address] [place] [address] Dr. Soila Pastor Neutrophils/100 WBC (Bld) 69.2 % Normal 43.0-75.0 [facility] Comment on above: Performed By: #### C BC #### [facility] [address] [place] [address] Dr. Soila Pastor Platelet mean volume (Bld) [Entitic vol] 11.8 fL Normal 9.5-13.5 [facility] Comment on above: Performed By: #### C BC #### [facility] [address] [address] [address] Soila Pastor PLT 128 103/ul Critically low 150-450 [facility] Comment on above: Performed By: #### C BC #### [facility] [address] [address] [address] Soila Pastor RBC 3.60 106/ul Critically low 4.20-5.40 [facility] Comment on above: Performed By: #### C BC #### [facility] [address] [address] [address] Soila Pastor WBC 7.9 103/ul Normal 4.0-11.0 [facility] Comment on above: Performed By: #### C BC #### [facility] [address] [place] [address] Dr. Soila Pastor PROF 14(COMP METB)on 023 Albumin [Mass/Vol] 2.4 g/dL Critically low 3.4-5.0 [facility] Comment on above: Performed By: #### C MP #### [facility] [address] [place] [address] Dr. Soila Pastor Albumin/Globulin [Mass ratio] 0.7 {ratio} Normal [facility] Comment on above: Performed By: #### C MP #### [facility] [address] [place] [address] Dr. Soila Pastor ALP [Catalytic activity/Vol] 66 U/L Normal 46-116 [facility] Comment on above: Performed By: #### C MP #### [facility] [address] [place] [address] Dr. Soila Pastor ALT [Catalytic activity/Vol] 15 U/L Normal 14-59 [facility] Comment on above: Performed By: #### C MP #### [facility] [address] [place] [address] Dr. Soila Pastor Anion gap [Moles/Vol] 12.1 mmol/L Normal [facility] Comment on above: Performed By: #### C MP #### [facility] [address] [place] [address] Dr. Soila Pastor AST [Catalytic activity/Vol] 18 U/L Normal 15-37 [facility] Comment on above: Performed By: #### C MP #### [facility] [address] [address] [address] Soila Pastor Bilirubin [Mass/Vol] 0.3 mg/dL Normal 0.2-1.0 [facility] Comment on above: Performed By: #### C MP #### [facility] [address] [address] [address] Soila Pastor Calcium [Mass/Vol] 8.6 mg/dL Normal 8.5-10.1 [facility] Comment on above: Performed By: #### C MP #### [facility] [address] [place] [address] Dr. Soila Pastor Chloride [Moles/Vol] 110 mmol/L Critically high 98-107 [facility] Comment on above: Performed By: #### C MP #### [facility] [address] [address] [address] Soila Pastor CO2 [Moles/Vol] 26.2 mmol/L Normal 21.0-32.0 [facility] Comment on above: Performed By: #### C MP #### [facility] [address] [place] [address] Dr. Soila Pastor Creatinine [Mass/Vol] 0.74 mg/dL Normal 0.55-1.02 [facility] Comment on above: Performed By: #### C MP #### [facility] [address] [place] [address] Dr. Soila Pastor EGFR-AF YEMENI >60 Normal >=60 [facility] Comment on above: Performed By: #### C MP #### [facility] [address] [place] [address] Dr. Soila Pastor EGFR-NON AF YEMENI >60 Normal >=60 [facility] Comment on above: Performed By: #### C MP #### [facility] [address] [place] [address] Dr. Soila Pastor Globulin (S) [Mass/Vol] 3.6 g/dL Normal [facility] Comment on above: Performed By: #### C MP #### [facility] [address] [address] [address] Soila Pastor Glucose [Mass/Vol] 119 mg/dL Critically high 74-106 [facility] Comment on above: Performed By: #### C MP #### [facility] [address] [address] [address] Soila Pastor Potassium [Moles/Vol] 3.3 mmol/L Critically low 3.5-5.1 [facility] Comment on above: Performed By: #### C MP #### [facility] [address] [address] [address] Soila Pastor Protein [Mass/Vol] 6.0 g/dL Critically low 6.4-8.2 [facility] Comment on above: Performed By: #### C MP #### [facility] [address] [address] [address] Soila Pastor Sodium [Moles/Vol] 145 mmol/L Normal 136-145 [facility] Comment on above: Performed By: #### C MP #### [facility] [address] [address] [address] Soila Pastor Urea nitrogen [Mass/Vol] 11.0 mg/dL Normal 7.0-18.0 [facility] Comment on above: Performed By: #### C MP #### [facility] [address] [address] [address] Soila Pastor Urea nitrogen/Creatinin e [Mass ratio] 14.9 mg/mg Normal [facility] Comment on above: Performed By: #### C MP #### [facility] [address] [address] [address] Soila Pastor CARDIAC KARYN 3-6on 3 CK [Catalytic activity/Vol] 251 U/L Critically high -192 [facility] Comment on above: Performed By: #### E RUR #### [facility] [address] [address] [address] Soila Pastor CK.MB [Mass/Vol] 4.50 ng/mL Critically high <=3.60 [facility] Comment on above: Performed By: #### E RUR #### [facility] [address] [place] [address] Dr. Soila Pastor HSTROP 6.9 pg/mL Normal 4.0-51.3 [facility] Comment on above: Result Comment: CUT- OFF POINTS HAVE BEEN ESTABLISHED BASED ON THE FOURTH UNIVERSAL DEFINITIONS OF MYOCARDIAL INFARCTION. THE UPPER REFERENCE LIMIT (URL) OF TROPONIN, DEFINED THE 99TH PERCENTILE OF cTnI DISTRIBUTION IN A REFERENCE POPULATION, HAS BEEN CONFIRMED THE DECISION THRESHOLD FOR [place] DIAGNOSIS. Performed By: #### E RUR #### [facility] [address] [place] [address] Dr. Soila Pastor CK [Catalytic activity/Vol] 143 U/L Normal 26-192 [facility] Comment on above: Performed By: #### E RUR #### [facility] [address] [place] [address] Dr. Soila Pastor CK.MB [Mass/Vol] 4.50 ng/mL Critically high <=3.60 [facility] Comment on above: Performed By: #### E RUR #### [facility] [address] [place] [address] Dr. Soila Pastor HSTROP 8.9 pg/mL Normal 4.0-51.3 [facility] Comment on above: Result Comment: CUT- OFF POINTS HAVE BEEN ESTABLISHED BASED ON THE FOURTH UNIVERSAL DEFINITIONS OF MYOCARDIAL INFARCTION. THE UPPER REFERENCE LIMIT (URL) OF TROPONIN, DEFINED THE 99TH PERCENTILE OF cTnI DISTRIBUTION IN A REFERENCE POPULATION, HAS BEEN CONFIRMED THE DECISION THRESHOLD FOR NV DIAGNOSIS. Performed By: #### E RUR #### [facility] [address] [place] [address] Dr. Soila Pastor CBC AUTO DIFFon 10-15-2022 BASO # 0.0 103/ul Normal 0.0-0.1 [facility] Comment on above: Performed By: #### C BC #### [facility] [address] [place] [address] Dr. Soila Pastor Basophils/100 WBC (Bld) 0.2 % Normal 0.2-2.0 [facility] Comment on above: Performed By: #### C BC #### [facility] [address] [place] [address] Dr. Soila Pastor EO # 0.0 103/ul Normal 0.0-0.7 [facility] Comment on above: Performed By: #### C BC #### [facility] [address] [place] [address] Dr. Soila Pastor Eosinophils/100 WBC (Bld) 0.4 % Critically low 0.9-7.0 [facility] Comment on above: Performed By: #### C BC #### [facility] [address] [place] [address] Dr. Soial Pastor Erythrocyte distribution width (RBC) [Ratio] 13.7 % Normal 11.0-15.0 [facility] Comment on above: Performed By: #### C BC #### [facility] [address] [place] [address] Dr. Soila Pastor Hematocrit (Bld) [Volume fraction] 34.4 % Critically low 36.0-48.0 [facility] Comment on above: Performed By: #### C BC #### [facility] [address] [place] [address] Dr. Soila Pastor Hemoglobin (Bld) [Mass/Vol] 10.7 g/dL Critically low 12.0-16.0 [facility] Comment on above: Performed By: #### C BC #### [facility] [address] [place] [address] Dr. Soila Pastor IG # 0.21 10e3/ul Critically high 0.00-0.03 [facility] Comment on above: Performed By: #### C BC #### [facility] [address] [place] [address] Dr. Soila Pastor IG % 2.1 % Critically high 0.0-0.5 [facility] Comment on above: Performed By: #### C BC #### [facility] [address] [place] [address] Dr. Soila Pastor LYMPH # 0.9 103/ul Critically low 1.2-3.8 [facility] Comment on above: Performed By: #### C BC #### [facility] [address] [place] [address] Dr. Soila Pastor Lymphocytes/100 WBC (Bld) 8.9 % Critically low 20.5-60.0 [facility] Comment on above: Performed By: #### C BC #### [facility] [address] [place] [address] Dr. Soila Pastor MANUAL DIFF REQ NO Normal [facility] Comment on above: Performed By: #### C BC #### [facility] [address] [place] [address] Dr. Soila Pastor MCH (RBC) [Entitic mass] 30.7 pg Normal 26.7-34.0 [facility] Comment on above: Performed By: #### C BC #### [facility] [address] [place] [address] Dr. Soila Pastor MCHC (RBC) [Mass/Vol] 31.1 g/dL Normal 29.9-35.2 [facility] Comment on above: Performed By: #### C BC #### [facility] [address] [place] [address] Dr. Soila Pastor MCV (RBC) [Entitic vol] 98.9 fL Normal 81.0-99.0 [facility] Comment on above: Performed By: #### C BC #### [facility] [address] [place] [address] Dr. Soila Pastor MONO # 0.4 103/ul Normal 0.3-0.8 [facility] Comment on above: Performed By: #### C BC #### [facility] [address] [place] [address] Dr. Soila Pastor Monocytes/100 WBC (Bld) 4.3 % Normal 1.7-12.0 [facility] Comment on above: Performed By: #### C BC #### [facility] [address] [place] [address] Dr. Soila Pastor NEUT # 8.4 103/ul Critically high 1.4-6.5 [facility] Comment on above: Performed By: #### C BC #### [facility] [address] [address] [address] Soila Pastor Neutrophils/100 WBC (Bld) 84.1 % Critically high 43.0-75.0 [facility] Comment on above: Performed By: #### C BC #### [facility] [address] [address] [address] Soila Pastor Platelet mean volume (Bld) [Entitic vol] 12.2 fL Normal 9.5-13.5 [facility] Comment on above: Performed By: #### C BC #### [facility] [address] [address] [address] Soila Pastor PLT 160 103/ul Normal 150-450 [facility] Comment on above: Performed By: #### C BC #### [facility] [address] [place] [address] Dr. Soila Pastor RBC 3.48 106/ul Critically low 4.20-5.40 [facility] Comment on above: Performed By: #### C BC #### [facility] [address] [place] [address] Dr. Soila Pastor WBC 9.9 103/ul Normal 4.0-11.0 [facility] Comment on above: Performed By: #### C BC #### [facility] [address] [place] [address] Dr. Soila Pastor CULTURE URINEon 10-15-2022 CULTURE URINE Culture Observations : NO GROWTH. Normal [facility] Comment on above: Performed By: #### P OCGLUC #### [facility] [address] [place] [address] Dr. Soila Pastor MAGNESIUMon 10-15-2022 Magnesium [Mass/Vol] 1.8 mg/dL Normal 1.8-2.4 [facility] Comment on above: Performed By: #### T 4, MG #### [facility] [address] [place] [address] Dr. Soila Pastor POINT OF CARE GLUCOSEon 09-21 Glucose [Mass/Vol] 123 mg/dL Critically high 74-106 [facility] Comment on above: Performed By: #### P OCGLUC #### [facility] [address] [address] [address] Soila Pastor Glucose [Mass/Vol] 128 mg/dL Critically high 74-106 [facility] Comment on above: Performed By: #### E RUR #### [facility] [address] [address] [address] Soila Pastor Glucose [Mass/Vol] 111 mg/dL Critically high -106 [facility] Comment on above: Performed By: #### P OCGLUC #### [facility] [address] [address] [address] Soila Pastor PROF 14(COMP METB)on 023 Albumin [Mass/Vol] 2.3 g/dL Critically low 3.4-5.0 Th [facility] Comment on above: Performed By: #### C MP #### [facility] [address] [address] [address] Soila Pastor Albumin/Globulin [Mass ratio] 0.7 {ratio} Normal [facility] Comment on above: Performed By: #### C MP #### [facility] [address] [place] [address] Dr. Soila Pastor ALP [Catalytic activity/Vol] 70 U/L Normal 46-116 [facility] Comment on above: Performed By: #### C MP #### [facility] [address] [address] [address] Soila Pastor ALT [Catalytic activity/Vol] 11 U/L Critically low 14-59 [facility] Comment on above: Performed By: #### C MP #### [facility] [address] [address] [address] Soila Pastor Anion gap [Moles/Vol] 11.2 mmol/L Normal [facility] Comment on above: Performed By: #### C MP #### [facility] [address] [place] [address] Dr. Soila Pastor AST [Catalytic activity/Vol] 32 U/L Normal 15-37 [facility] Comment on above: Performed By: #### C MP #### [facility] [address] [address] [address] Soila Pastor Bilirubin [Mass/Vol] 0.5 mg/dL Normal 0.2-1.0 [facility] Comment on above: Performed By: #### C MP #### [facility] [address] [address] [address] Soila Pastor Calcium [Mass/Vol] 7.8 mg/dL Critically low 8.5-10.1 Th [facility] Comment on above: Performed By: #### C MP #### [facility] [address] [address] [address] Soila Pastor Chloride [Moles/Vol] 104 mmol/L Normal 98-107 [facility] Comment on above: Performed By: #### C MP #### [facility] [address] [address] [address] Soila Pastor CO2 [Moles/Vol] 26.4 mmol/L Normal 21.0-32.0 [facility] Comment on above: Performed By: #### C MP #### [facility] [address] [address] [address] Soila Pastor Creatinine [Mass/Vol] 1.05 mg/dL Critically high 0.55-1.02 [facility] Comment on above: Performed By: #### C MP #### [facility] [address] [address] [address] Soila Pastor EGFR-AF YEMENI >60 Normal >=60 [facility] Comment on above: Performed By: #### C MP #### [facility] [address] [address] [address] Soila Pastor EGFR-NON AF YEMENI 50 mL/min/1.73m2 Critically low >=60 [facility] Comment on above: Performed By: #### C MP #### [facility] [address] [address] [address] Soila Pastor Globulin (S) [Mass/Vol] 3.5 g/dL Normal [facility] Comment on above: Performed By: #### C MP #### [facility] [address] [address] [address] Soila Pastor Glucose [Mass/Vol] 153 mg/dL Critically high 74-106 [facility] Comment on above: Performed By: #### C MP #### [facility] [address] [address] [address] Soila Pastor Potassium [Moles/Vol] 4.6 mmol/L Normal 3.5-5.1 [facility] Comment on above: Performed By: #### C MP #### [facility] [address] [address] [address] Soila Pastor Protein [Mass/Vol] 5.8 g/dL Critically low 6.4-8.2 Th [facility] Comment on above: Performed By: #### C MP #### [facility] [address] [place] [address] Dr. Soila Pastor Sodium [Moles/Vol] 137 mmol/L Normal 136-145 [facility] Comment on above: Performed By: #### C MP #### [facility] [address] [address] [address] Soila Pastor Urea nitrogen [Mass/Vol] 19.0 mg/dL Critically high 7.0-18.0 [facility] Comment on above: Performed By: #### C MP #### [facility] [address] [address] [address] Soila Pastor Urea nitrogen/Creatinin e [Mass ratio] 18.1 mg/mg Normal [facility] Comment on above: Performed By: #### C MP #### [facility] [address] [address] [address] Soila Pastor T4on 10-15-2022 T4 [Mass/Vol] 7.30 ug/dL Normal 4.80-13.90 [facility] Comment on above: Performed By: #### T 4, MG #### [facility] [address] [place] [address] Dr. Soila Pastor ACETONE SERUMon 10-14-2022 ACETONE Negative Normal NEGATIVE [facility] Comment on above: Performed By: #### E RUR #### [facility] [address] [address] [address] Soila Pastor AMMONIAon 10-14-2022 Ammonia (P) [Moles/Vol] 24 umol/L Normal - [facility] Comment on above: Performed By: #### E RUR #### [facility] [address] [place] [address] Dr. Soila Pastor BLOOD GASES BTYon 10-14-2022 02 MODE ROOM AIR Normal [facility] Comment on above: Performed By: #### E RUR #### [facility] [address] [place] [address] Dr. Soila Pastor ALLENS TEST Positive [facility] Comment on above: Performed By: #### E RUR #### [facility] [address] [place] [address] Dr. Soila Pastor Base excess Calc (Bld) [Moles/Vol] 1.0 mmol/L Normal -2.0-2.0 [facility] Comment on above: Performed By: #### E RUR #### [facility] [address] [place] [address] Dr. Soila Pastor BIPAP PRESSURE [facility] Comment on above: Performed By: #### E RUR #### [facility] [address] [place] [address] Dr. Soila Pastor CPAP [facility] Comment on above: Performed By: #### E RUR #### [facility] [address] [address] [address] Soila Pastor FIO2 [facility] Comment on above: Performed By: #### E RUR #### [facility] [address] [address] [address] Soila Pastor HCO3 (Bld) [Moles/Vol] 26.0 mmol/L Normal 22.0-26.0 [facility] Comment on above: Performed By: #### E RUR #### [facility] [address] [place] [address] Dr. Soila Pastor LPM [facility] Comment on above: Performed By: #### E RUR #### [facility] [address] [place] [address] Dr. Soila Pastor MINUTE VOLUME Normal [facility] Comment on above: Performed By: #### E RUR #### [facility] [address] [place] [address] Dr. Soila Pastor Oxygen (Bld) [Partial pressure] 92.6 mm[Hg] Normal 80.0-100.0 [facility] Comment on above: Performed By: #### E RUR #### [facility] [address] [place] [address] Dr. Soila Pastor Oxygen saturation in Blood 97.0 % Normal 95.0-100.0 [facility] Comment on above: Performed By: #### E RUR #### [facility] [address] [place] [address] Dr. Soila Pastor PCO2 43.2 mmHg Normal 35.0-45.0 [facility] Comment on above: Performed By: #### E RUR #### [facility] [address] [place] [address] Dr. Soila Pastor PEEP [facility] Comment on above: Performed By: #### E RUR #### [facility] [address] [place] [address] Dr. Soila Pastor pH (Bld) 7.389 [pH] Normal 7.350-7.450 [facility] Comment on above: Performed By: #### E RUR #### [facility] [address] [place] [address] Dr. Soila Pastor PIP [facility] Comment on above: Performed By: #### E RUR #### [facility] [address] [place] [address] Dr. Soila Pastor PS [facility] Comment on above: Performed By: #### E RUR #### [facility] [address] [place] [address] Dr. Soila Pastor PUNCTURE SITE LR [facility] Comment on above: Performed By: #### E RUR #### [facility] [address] [place] [address] Dr. Soila Pastor [facility] Comment on above: Performed By: #### E RUR #### [facility] [address] [place] [address] Dr. Soila Pastor [facility] Comment on above: Performed By: #### E RUR #### [facility] [address] [place] [address] Dr. Soila Pastor [facility] Comment on above: Performed By: #### E RUR #### [facility] [address] [place] [address] Dr. Soila Pastor BNPon 10-14-2022 Natriuretic peptide B (Bld) [Mass/Vol] 432.0 pg/mL Normal <=1,800.0 [facility] Comment on above: Performed By: #### P OCGLUC #### [facility] [address] [place] [address] Dr. Soila Pastor CBC AUTO DIFFon 10-14-2022 BASO # 0.1 103/ul Normal 0.0-0.1 [facility] Comment on above: Performed By: #### P OCGLUC #### [facility] [address] [place] [address] Dr. Soila Pastor Basophils/100 WBC (Bld) 0.3 % Normal 0.2-2.0 [facility] Comment on above: Performed By: #### P OCGLUC #### [facility] [address] [place] [address] Dr. Soila Pastor EO # 0.3 103/ul Normal 0.0-0.7 [facility] Comment on above: Performed By: #### P OCGLUC #### [facility] [address] [place] [address] Dr. Soila Pastor Eosinophils/100 WBC (Bld) 1.7 % Normal 0.9-7.0 [facility] Comment on above: Performed By: #### P OCGLUC #### [facility] [address] [place] [address] Dr. Soila Pastor Erythrocyte distribution width (RBC) [Ratio] 13.5 % Normal 11.0-15.0 [facility] Comment on above: Performed By: #### P OCGLUC #### [facility] [address] [place] [address] Dr. Soial Pastor Hematocrit (Bld) [Volume fraction] 38.5 % Normal 36.0-48.0 [facility] Comment on above: Performed By: #### P OCGLUC #### [facility] [address] [place] [address] Dr. Soila Pastor Hemoglobin (Bld) [Mass/Vol] 12.2 g/dL Normal 12.0-16.0 [facility] Comment on above: Performed By: #### P OCGLUC #### [facility] [address] [place] [address] Dr. Soila Pastor IG # 0.06 10e3/ul Critically high 0.00-0.03 [facility] Comment on above: Performed By: #### P OCGLUC #### [facility] [address] [place] [address] Dr. Soila Pastor IG % 0.4 % Normal 0.0-0.5 [facility] Comment on above: Performed By: #### P OCGLUC #### [facility] [address] [place] [address] Dr. Soila Pastor LYMPH # 2.5 103/ul Normal 1.2-3.8 [facility] Comment on above: Performed By: #### P OCGLUC #### [facility] [address] [place] [address] Dr. Soila Pastor Lymphocytes/100 WBC (Bld) 17.2 % Critically low 20.5-60.0 [facility] Comment on above: Performed By: #### P OCGLUC #### [facility] [address] [place] [address] Dr. Soila Pastor MANUAL DIFF REQ NO Normal [facility] Comment on above: Performed By: #### P OCGLUC #### [facility] [address] [place] [address] Dr. Soila Pastor MCH (RBC) [Entitic mass] 30.0 pg Normal 26.7-34.0 [facility] Comment on above: Performed By: #### P OCGLUC #### [facility] [address] [place] [address] Dr. Soila Pastor MCHC (RBC) [Mass/Vol] 31.7 g/dL Normal 29.9-35.2 [facility] Comment on above: Performed By: #### P OCGLUC #### [facility] [address] [place] [address] Dr. Soila Pastor MCV (RBC) [Entitic vol] 94.8 fL Normal 81.0-99.0 [facility] Comment on above: Performed By: #### P OCGLUC #### [facility] [address] [place] [address] Dr. Soila Pastor MONO # 1.5 103/ul Critically high 0.3-0.8 [facility] Comment on above: Performed By: #### P OCGLUC #### [facility] [address] [place] [address] Dr. Soila Pastor Monocytes/100 WBC (Bld) 9.9 % Normal 1.7-12.0 [facility] Comment on above: Performed By: #### P OCGLUC #### [facility] [address] [place] [address] Dr. Soila Pastor NEUT # 10.3 103/ul Critically high 1.4-6.5 [facility] Comment on above: Performed By: #### P OCGLUC #### [facility] [address] [place] [address] Dr. Soila Pastor Neutrophils/100 WBC (Bld) 70.5 % Normal 43.0-75.0 [facility] Comment on above: Performed By: #### P OCGLUC #### [facility] [address] [place] [address] Dr. Soila Pastor Platelet mean volume (Bld) [Entitic vol] 11.3 fL Normal 9.5-13.5 [facility] Comment on above: Performed By: #### P OCGLUC #### [facility] [address] [place] [address] Dr. Soila Pastor PLT 151 103/ul Normal 150-450 [facility] Comment on above: Performed By: #### P OCGLUC #### [facility] [address] [address] [address] Soila Pastor RBC 4.06 106/ul Critically low 4.20-5.40 [facility] Comment on above: Performed By: #### P OCGLUC #### [facility] [address] [address] [address] Soila Pastor WBC 14.7 103/ul Critically high 4.0-11.0 [facility] Comment on above: Performed By: #### P OCGLUC #### [facility] [address] [address] HEAD WO CONon [...] ischemia and involutional changes. Electronically authenticated by: PVAEL SANCHEZ Date: 2022-10-14 20:13 Normal [facility] CULTURE BLOODon 10-14-2022 Microscopic examination of blood, culture Culture Observations: NO GROWTH AT 5 DAYS. Normal [facility] Comment on above: Performed By: #### P OCGLUC #### [facility] [address] [place] [address] Dr. Soila Pastor Microscopic examination of blood, culture Culture Observations: NO GROWTH AT 5 DAYS. Normal [facility] Comment on above: Performed By: #### P OCGLUC #### [facility] [address] [place] [address] Dr. Soila Pastor Covid-19 PCR (CVDTBH)on 09-21 SARS-CoV-2 (COVID-19) RNA JERALD+probe Ql (Unsp spec) Not detected Normal NOT DETECTED [facility] Comment on above: Result Comment: When [...] for this test is supported by the [place] of Health and Human Service's declaration that [...] used). Performed By: #### C VDTBH #### [facility] [address] [place] [address] Dr. Soila Pastor ER URINE PROFILEon 3 Bilirubin Ql (U) Negative Normal NEGATIVE [facility] Comment on above: Performed By: #### E RUR #### [facility] [address] [place] [address] Dr. Soila Pastor Clarity (U) CLEAR Normal CLEAR [facility] Comment on above: Performed By: #### E RUR #### [facility] [address] [place] [address] Dr. Soila Pastor Color (U) YELLOW Normal YELLOW [facility] Comment on above: Performed By: #### E RUR #### [facility] [address] [place] [address] Dr. Soila KIM A micrscopic examina tion will be performed if indicated. Normal [facility] Comment on above: Performed By: #### E RUR #### [facility] [address] [place] [address] Dr. Soila Pastor Glucose Ql (U) Negative Normal NEGATIVE [facility] Comment on above: Performed By: #### E RUR #### [facility] [address] [place] [address] Dr. Soila Pastor Hemoglobin Ql (U) Negative Normal NEGATIVE [facility] Comment on above: Performed By: #### E RUR #### [facility] [address] [place] [address] Dr. Soila Pastor Ketones Ql (U) TRACE Abnormal NEGATIVE [facility] Comment on above: Performed By: #### E RUR #### [facility] [address] [place] [address] Dr. Soila Pastor LEUKOCYTES Negative Normal NEGATIVE [facility] Comment on above: Performed By: #### E RUR #### [facility] [address] [place] [address] Dr. Soila Pastor Nitrite Ql (U) Negative Normal NEGATIVE [facility] Comment on above: Performed By: #### E RUR #### [facility] [address] [place] [address] Dr. Soila Pastor pH (U) 5.0 [pH] Normal 5-9 [facility] Comment on above: Performed By: #### E RUR #### [facility] [address] [place] [address] Dr. Soila Pastor SPEC GRAVITY 1.020 Normal 1.005-<=1.0 25 [facility] Comment on above: Performed By: #### E RUR #### [facility] [address] [place] [address] Dr. Soila Pastor UA PROTEIN Negative Normal NEGATIVE/ TRACE [facility] Comment on above: Performed By: #### E RUR #### [facility] [address] [address] [address] Soila Pastor UR MICRO IND NOT INDICATED Normal [facility] Comment on above: Performed By: #### E RUR #### [facility] [address] [place] [address] Dr. Soila Pastor Urobilinogen Qn (U) 1.0 {Betsy'U}/dL Normal 0.2 - 1.0 [facility] Comment on above: Performed By: #### E RUR #### [facility] [address] [place] [address] Dr. Soila Pastor LACTATE/LACTIC ACIDon 2022 Lactate [Moles/Vol] 1.4 mmol/L Normal 0.4-2.0 [facility] Comment on above: Performed By: #### E RUR #### [facility] [address] [place] [address] Dr. Soila Pastor PH VENOUS BLOODon 10-14-2022 PCO2 VENOUS 47.6 mmHg Normal 40.0-52.0 [facility] Comment on above: Performed By: #### E RUR #### [facility] [address] [place] [address] Dr. Soila Pastor pH VENOUS 7.401 Normal 7.330-7.430 [facility] Comment on above: Performed By: #### E RUR #### [facility] [address] [place] [address] Dr. Soila Pastor PROF 14(COMP METB)on 023 Albumin [Mass/Vol] 3.2 g/dL Critically low 3.4-5.0 [facility] Comment on above: Performed By: #### P OCGLUC #### [facility] [address] [place] [address] Dr. Soila Pastor Albumin/Globulin [Mass ratio] 0.8 {ratio} Normal [facility] Comment on above: Performed By: #### P OCGLUC #### [facility] [address] [place] [address] Dr. Soila Pastor ALP [Catalytic activity/Vol] 85 U/L Normal 46-116 [facility] Comment on above: Performed By: #### P OCGLUC #### [facility] [address] [address] [address] Soila Pastor ALT [Catalytic activity/Vol] 13 U/L Critically low 14-59 [facility] Comment on above: Performed By: #### P OCGLUC #### [facility] [address] [address] [address] Soila Pastor Anion gap [Moles/Vol] 9.5 mmol/L Normal [facility] Comment on above: Performed By: #### P OCGLUC #### [facility] [address] [address] [address] Soila Pastor AST [Catalytic activity/Vol] 12 U/L Critically low 15-37 [facility] Comment on above: Performed By: #### P OCGLUC #### [facility] [address] [address] [address] Soila Pastor Bilirubin [Mass/Vol] 0.5 mg/dL Normal 0.2-1.0 [facility] Comment on above: Performed By: #### P OCGLUC #### [facility] [address] [address] [address] Soila Pastor Calcium [Mass/Vol] 9.0 mg/dL Normal 8.5-10.1 [facility] Comment on above: Performed By: #### P OCGLUC #### [facility] [address] [address] [address] Soila Pastor Chloride [Moles/Vol] 99 mmol/L Normal 98-107 [facility] Comment on above: Performed By: #### P OCGLUC #### [facility] [address] [address] [address] Soila Pastor CO2 [Moles/Vol] 32.0 mmol/L Normal 21.0-32.0 [facility] Comment on above: Performed By: #### P OCGLUC #### [facility] [address] [address] [address] Soila Pastor Creatinine [Mass/Vol] 1.55 mg/dL Critically high 0.55-1.02 [facility] Comment on above: Performed By: #### P OCGLUC #### [facility] [address] [address] [address] Soila Pastor EGFR-AF YEMENI 39 mL/min/1.73m2 Critically low >=60 [facility] Comment on above: Performed By: #### P OCGLUC #### [facility] [address] [address] [address] Soila Pastor EGFR-NON AF YEMENI 32 mL/min/1.73m2 Critically low >=60 [facility] Comment on above: Performed By: #### P OCGLUC #### [facility] [address] [address] [address] Soila Pastor Globulin (S) [Mass/Vol] 3.8 g/dL Normal [facility] Comment on above: Performed By: #### P OCGLUC #### [facility] [address] [address] [address] Soila Pastor Glucose [Mass/Vol] 125 mg/dL Critically high 74-106 [facility] Comment on above: Performed By: #### P OCGLUC #### [facility] [address] [address] [address] Soila Pastor Potassium [Moles/Vol] 3.5 mmol/L Normal 3.5-5.1 [facility] Comment on above: Performed By: #### P OCGLUC #### [facility] [address] [address] [address] Soila Pastor Protein [Mass/Vol] 7.0 g/dL Normal 6.4-8.2 [facility] Comment on above: Performed By: #### P OCGLUC #### [facility] [address] [address] [address] Soila Pastor Sodium [Moles/Vol] 137 mmol/L Normal 136-145 [facility] Comment on above: Performed By: #### P OCGLUC #### [facility] [address] [address] [address] Soila Pastor Urea nitrogen [Mass/Vol] 21.0 mg/dL Critically high 7.0-18.0 [facility] Comment on above: Performed By: #### P OCGLUC #### [facility] [address] [place] [address] Dr. Soila Pastor Urea nitrogen/Creatinin e [Mass ratio] 13.5 mg/mg Normal [facility] Comment on above: Performed By: #### P OCGLUC #### [facility] [address] [place] [address] Dr. Soila Pastor PROTIMEon 10-14-2022 INR Coag (PPP) [Relative time] 1.01 {INR} Normal [facility] Comment on above: Performed By: #### C VDTBH #### [facility] [address] [place] [address] Dr. Soila Pastor INR GUIDELINES SEE BELOW Normal [facility] Comment on above: Result Comment: KADE[place] RED INR: 2.0 - 3.0 CONDITIONS NOT LISTED BELOW 2.5 - 3.5 FOR PROSTHETIC HEART VALVE REPLACEMENT 2.5 - 3.5 RECURRENT THROMBOSIS Performed By: #### C VDTBH #### [facility] [address] [place] [address] Dr. Soila Pastor PT Coag (PPP) [Time] 10.7 s Normal 9.0-11.6 [facility] Comment on above: Performed By: #### C VDTBH #### [facility] [address] [place] [address] Dr. Soila Pastor PTTon 10-14-2022 aPTT Coag (Bld) [Time] 31.5 s Normal 22.3-36.2 [facility] Comment on above: Performed By: #### E RUR #### [facility] [address] [place] [address] Dr. Soila Pastor TROPONIN, HIGH SENSITIVITYon 10-14-2022 HSTROP 8.8 pg/mL Normal 4.0-51.3 [facility] Comment on above: Result Comment: CUT- OFF POINTS HAVE BEEN ESTABLISHED BASED ON THE FOURTH UNIVERSAL DEFINITIONS OF MYOCARDIAL INFARCTION. THE UPPER REFERENCE LIMIT (URL) OF TROPONIN, DEFINED THE 99TH PERCENTILE OF cTnI DISTRIBUTION IN A REFERENCE POPULATION, HAS BEEN CONFIRMED THE DECISION THRESHOLD FOR [place] DIAGNOSIS. Performed By: #### P OCGLUC #### [facility] [address] [place], [place] [address] Dr. Soila Pastor TSHon 10-14-2022 TSH 1.240 uIU/mL Normal 0.358-3.740 [facility] Comment on above: Performed By: #### P OCGLUC #### [facility] [address] [place], [place] [address] Dr. Soila Pastor XR ANKLE LT MIN [...] by: Selin MCCALL Date: 2022-10-14 20:16 Normal [facility] XR CHEST 1 Von 10-14-2022 XR CHEST [...] by: KAELA HOOKER Date: 2022-10-14 20:15 Normal [facility] XR CHEST 2 Von 10-14-2022 XR [...] by: KARYN WASHINGTON Date: 2022-10-14 11:33 Normal [facility] CT CSPINE WO CONon CT CSPINE WO CON EXAMINATION: CT CSPI [...] REED LYNNE Date: 2022-08-24 18:47 Normal [facility] CT HEAD WO CONon 08-24-2022 CT [...] AMAYA FRENCH Date: 2022-08-24 18:57 Normal [facility] XR KNEE RT 4V or >on [...] VIKY WILLIAMSON Date: 2022-08-24 18:59 Normal [facility] US THYROIDon 05-29-2022 US THYROID EXAMINATION: [...] left thyroid nodules, grossly stable TI-RADS: The [employer] TI-RADS committee's white paper recommendations for thyroid lesions classified as TR4 (moderately suspicious) are listed below: > 1.0 cm. Follow-up ultrasound in 1, 2, 3, and 5 years. > 1.5 cm. FNA. J. Am Nikunj Radiol 2017;14:587-595. Electronically authenticated by: CARLOS SOOD Date: 2022-05-29 11:51 Normal [facility] LAB Carotid Artery Dupl ex Ultrasounon 04-14-2022 [facility] Carotid Artery Duplex Ultrasoun [address], [address], [place] [address] Vascular Lab Report Carotid Artery Duplex Ultrasound Patient Name: JAQUELIN GARZA Reading Physician: [id number] Martha Navas MD, [facility] Study Date: 04/14/2022 Referring XOCHITL HERNANDEZ Physician: MRN/PID: [id number] PCP: Yossi Landers Accession/Order#: [id number] CC Report to: Date of : 1940 Technologist: Eleanor Marcus RDCS, T Gender: F Technologist 2: Admission Status: Outpatient Location Performed: [facility] Diagnosis/ICD: 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 [address] [place] Work Phone: Height or Weight NOT Doneon 02-26-2022 Fall risk assessment a) No falls within the last year [facility] [address] [place] Work Phone: Tobacco use status CPHS b) [facility] Work Phone: Office Visit (Cardiology)on [...] Ultrasound; Status:Hold For - Scheduling,Retrospective Authorization; Requested for:[id number]; Laterality : Bilateral SocHx: Former smoker Tobacco Use Screening; Status:Complete; Done: [id number] Patient Instructions Please bring all medicines, vitamins, [...] 4-5 servings (more content not included)... Normal [facility] US THYROIDon 01-08-2022 US THYROID EXAMINATION: US [...] one year is recommended. TR 4: The [employer] TI-RADS committee's white paper recommendations for thyroid lesions classified as TR4 (moderately suspicious) are listed below: > 1.0 cm. Follow-up ultrasound in 1, 2, 3, and 5 years. > 1.5 cm. FNA. J. Am Nikunj Radiol 2017;14:587-595. Electronically authenticated by: AMAYA GRAMAJO Date: 2022-01-08 08:44 Normal [facility] CREATININEon 12-30-2021 Creatinine [Mass/Vol] 1.03 mg/dL Critically high 0.55-1.02 [facility] Comment on above: Performed By: #### P OCGLUC #### [facility] [address] [place] [address] Dr. Soila Pastor EGFR-AF YEMENI >60 Normal >=60 [facility] Comment on above: Performed By: #### P OCGLUC #### [facility] [address] [address] [address] Soila Pastor EGFR-NON AF YEMENI 52 mL/min/1.73m2 Critically low >=60 [facility] Comment on above: Performed By: #### P OCGLUC #### [facility] [address] NECK ST W [...] by: CARLOS SOOD Date: 2021-12-30 21:32 Normal [facility] XR MODIFIED BARIUM SWALLOWon 12-05-2021 XR MODIFIED [...] by: AMAYA GRAMAJO Date: 2021-12-05 17:48 Normal [facility] Echocardiogramon 11-11-[address], [address] [place] [address] TRANSTHORACIC ECHOCARDIOGRAM REPORT Patient Name: JAQUELIN GARZA Reading Physician: [id number] Xochitl NORWOOD MD Study Date: 11/11/2021 Referring Physician: [id number] HERNANDEZ MRN/PID: [id number] PCP: Yossi Landers Accession/Order#: [id number] Department Location: [facility] Date of : 1940 Fellow: Gender: F Nurse: Admit Date: Boiler Operator: Eleanor Marcus RDCS, RVT Height: 162.56 cm CC Report to: Weight: 94.80 kg Study Type: Echocardiogram BSA: 1.99 m2 Blood Pressure: 124 /62 mmHg Diagnosis/ICD: I42.9-Cardiomyopathy, unspecified; R06.00-Dyspnea, unspecified Indication: CAD, HTN, Hyperlipidemia, Former Smoker, Bilateral Carotid Stenosis, Obesity Procedure/CPT: Echo Complete w Full Doppler-56602 Study Detail: The following Echo studies were [...] 0.9 m/s (0.6-0.9m/s) PV Max P.3 mmHg [id number] Xochitl Hernandez MD Electronically signed on 11/13/2021 at 4:32:53 PM Final Normal [facility] Office Visit (Cardiology)on 10-15-2021 Follow-up visit [...] By signing my name below, Alla Irvin Mary Beth Glass,Miko, attest that this documentation [...] up in 4-5 months Retrieve records from [facility] Chief Complaint overdue. JAQUELIN NORWOOD is being [...] EVERY DAY (more content not included)... Normal [facility] Tobacco Screening.on Adult depression screening assessment No [facility] [address] Work Phone: Fall risk assessment a) No falls within the last year [facility] [address] DO Work Phone: Tobacco use status CPHS b) No [facility] [address] DO Work Phone: Vital Signs Date Time Vital Sign Value Performing Clinician Facility 09-29-2024 10:57-0400 Body height 165.1 cm Salud PALACIOS Work Phone: [facility] 09-29-2024 10:57-0400 Diastolic blood pressure 78 mm[Hg] Salud PALACIOS Work Phone: [facility] 09-29-2024 10:57-0400 Heart rate 73 /min Salud PALACIOS Work Phone: [facility] 09-29-2024 10:57-0400 Respiratory rate 18 /min Salud PALACIOS Work Phone: [facility] 09-29-2024 10:57-0400 SaO2% (BldA) [Mass fraction] 94 % Salud PALACIOS Work Phone: [facility] 09-29-2024 10:57-0400 Systolic blood pressure 136 mm[Hg] Salud PALACIOS Work Phone: [facility] 09-14-2024 11:08-0400 Body height 165.1 cm Yossi Landers MD Work Phone: [facility] 09-14-2024 11:08-0400 Body mass index (BMI) [Ratio] 33.45 kg/m2 Yossi Landers MD Work Phone: [facility] 09-14-2024 11:08-0400 Body weight 91.17 kg Yossi Landers MD Work Phone: [facility] 09-14-2024 11:08-0400 Diastolic blood pressure 64 mm[Hg] Yossi Landers MD Work Phone: [facility] 09-14-2024 11:08-0400 Heart rate 67 /min Yossi Landers MD Work Phone: [facility] 09-14-2024 11:08-0400 SaO2% (BldA) [Mass fraction] 96 % Yossi Landers MD Work Phone: [facility] 09-14-2024 11:08-0400 Systolic blood pressure 110 mm[Hg] Yossi Landers MD Work Phone: [facility] 07-29-2024 09:00-0500 Body height 165.1 cm Kristen Nataliia DO Work Phone: [facility] 07-29-2024 09:00-0500 Body mass index (BMI) [Ratio] 31.12 kg/m2 Kristen Nataliia DO Work Phone: [facility] 07-29-2024 09:00-0500 Body weight 84.82 kg Kristen Nataliia DO Work Phone: [facility] 07-29-2024 09:00-0500 Diastolic blood pressure 71 mm[Hg] Kristen Nataliia DO Work Phone: [facility] 07-29-2024 09:00-0500 Heart rate 63 /min Kristen Nataliia DO Work Phone: [facility] 07-29-2024 09:00-0500 SaO2% (BldA) [Mass fraction] 88 % Kristen Nataliia DO Work Phone: [facility] 07-29-2024 09:00-0500 Systolic blood pressure 123 mm[Hg] Kristen Nataliia DO Work Phone: [facility] 07-25-2024 10:50-0500 Body height 165.1 cm Yossi Landers MD Work Phone: [facility] 07-25-2024 10:50-0500 Body mass index (BMI) [Ratio] 31.12 kg/m2 Yossi Landers MD Work Phone: [facility] 07-25-2024 10:50-0500 Body weight 84.82 kg Yossi Landers MD Work Phone: [facility] 07-25-2024 10:50-0500 Diastolic blood pressure 70 mm[Hg] Yossi Landers MD Work Phone: [facility] 07-25-2024 10:50-0500 Heart rate 86 /min Yossi Landers MD Work Phone: [facility] 07-25-2024 10:50-0500 SaO2% (BldA) [Mass fraction] 97 % Yossi Landers MD Work Phone: [facility] 07-25-2024 10:50-0500 Systolic blood pressure 122 mm[Hg] Yossi Landers MD Work Phone: [facility] 07-21-2024 16:16-0500 Body height 165.1 cm Alessandro Levi DPM Work Phone: [facility] 07-21-2024 16:16-0500 Body mass index (BMI) [Ratio] 29.62 kg/m2 Alessandro Levi DPM Work Phone: [facility] 07-21-2024 16:16-0500 Body weight 80.74 kg Alessandro Levi DPM Work Phone: [facility] 07-21-2024 16:16-0500 Respiratory rate 18 /min Alessandro Levi DPM Work Phone: [facility] 07-12-2024 14:17-0500 Body height 165.1 cm Bel Ojeda MD Work Phone: [facility] 07-12-2024 14:17-0500 Body mass index (BMI) [Ratio] 29.62 kg/m2 Bel Ojeda MD Work Phone: [facility] 07-12-2024 14:17-0500 Body weight 80.74 kg Bel Ojeda MD Work Phone: [facility] 07-12-2024 14:17-0500 Diastolic blood pressure 60 mm[Hg] Bel Ojeda MD Work Phone: [facility] 07-12-2024 14:17-0500 Heart rate 69 /min Bel Ojeda MD Work Phone: [facility] 07-12-2024 14:17-0500 Systolic blood pressure 117 mm[Hg] Bel Ojeda MD Work Phone: [facility] 06-10-2024 10:50-0500 Body height 165.1 cm Yossi Landers MD Work Phone: [facility] 06-10-2024 10:50-0500 Body mass index (BMI) [Ratio] 29.62 kg/m2 Yossi Landers MD Work Phone: [facility] 06-10-2024 10:50-0500 Body weight 80.74 kg Yossi Landers MD Work Phone: [facility] 06-10-2024 10:50-0500 Diastolic blood pressure 68 mm[Hg] Yossi Landers MD Work Phone: [facility] 06-10-2024 10:50-0500 Heart rate 77 /min Yossi Landers MD Work Phone: [facility] 06-10-2024 10:50-0500 SaO2% (BldA) [Mass fraction] 98 % Yossi Landers MD Work Phone: [facility] 06-10-2024 10:50-0500 Systolic blood pressure 126 mm[Hg] Yossi Landers MD Work Phone: [facility] 05-16-2024 13:06-0500 Body height 165.1 cm Yossi Landers MD Work Phone: [facility] 05-16-2024 13:06-0500 Diastolic blood pressure 70 mm[Hg] Yossi Landers MD Work Phone: [facility] 05-16-2024 13:06-0500 Heart rate 65 /min Yossi Landers MD Work Phone: [facility] 05-16-2024 13:06-0500 SaO2% (BldA) [Mass fraction] 99 % Yossi Lnaders MD Work Phone: [facility] 05-16-2024 13:06-0500 Systolic blood pressure 124 mm[Hg] Yossi Landers MD Work Phone: [facility] 05-02-2024 11:10-0500 Body height 165.1 cm Yossi Landers MD Work Phone: [facility] 05-02-2024 11:10-0500 Body mass index (BMI) [Ratio] 29.79 kg/m2 Yossi Landers MD Work Phone: [facility] 05-02-2024 11:10-0500 Body weight 81.19 kg Yossi Landers MD Work Phone: [facility] 05-02-2024 11:10-0500 Diastolic blood pressure 66 mm[Hg] Yossi Landers MD Work Phone: [facility] 05-02-2024 11:10-0500 Heart rate 73 /min Yossi Landers MD Work Phone: [facility] 05-02-2024 11:10-0500 SaO2% (BldA) [Mass fraction] 97 % Yossi Landers MD Work Phone: [facility] 05-02-2024 11:10-0500 Systolic blood pressure 118 mm[Hg] Yossi Landers MD Work Phone: [facility] 04-28-2024 13:43-0500 Body height 165.1 cm Alessandro Levi DPM Work Phone: [facility] 04-28-2024 13:43-0500 Body mass index (BMI) [Ratio] 31.95 kg/m2 Alessandro Levi DPM Work Phone: [facility] 04-28-2024 13:43-0500 Body weight 87.09 kg Alessandro Levi DPM Work Phone: [facility] 04-28-2024 13:43-0500 Diastolic blood pressure 80 mm[Hg] Alessandro Levi DPM Work Phone: [facility] 04-28-2024 13:43-0500 Heart rate 82 /min Alessandro Levi DPM Work Phone: [facility] 04-28-2024 13:43-0500 Systolic blood pressure 126 mm[Hg] Alessandro Levi DPM Work Phone: [facility] 03-08-2024 10:42-0400 Blood Pressure Location Mohamad Mouchli [facility] 03-08-2024 10:42-0400 Diastolic blood pressure 85 mm[Hg] Mohamad Mouchli [facility] 03-08-2024 10:42-0400 Heart rate 80 /min Mohamad Mouchli [facility] 03-08-2024 10:42-0400 Mean blood pressure 102 mm[Hg] Mohamad Mouchli [facility] 03-08-2024 10:42-0400 Respiratory rate 15 /min Mohamad Mouchli [facility] 03-08-2024 10:42-0400 SaO2% (BldA) [Mass fraction] 97 % Mohamad Mouchli [facility] 03-08-2024 10:42-0400 Systolic blood pressure 137 mm[Hg] Mohamad Mouchli [facility] 03-08-2024 10:30-0400 Blood Pressure Location Mohamad Mouchli [facility] 03-08-2024 10:30-0400 Diastolic blood pressure 94 mm[Hg] Mohamad Mouchli [facility] 03-08-2024 10:30-0400 Heart rate 82 /min Mohamad Mouchli [facility] 03-08-2024 10:30-0400 Mean blood pressure 106 mm[Hg] Mohamad Mouchli [facility] 03-08-2024 10:30-0400 Respiratory rate 27 /min Mohamad Mouchli [facility] 03-08-2024 10:30-0400 SaO2% (BldA) [Mass fraction] 99 % Mohamad Mouchli [facility] 03-08-2024 10:30-0400 Systolic blood pressure 129 mm[Hg] Mohamad Mouchli [facility] 03-08-2024 10:25-0400 Blood Pressure Location Mohamad Mouchli [facility] 03-08-2024 10:25-0400 Diastolic blood pressure 57 mm[Hg] Mohamad Mouchli [facility] 03-08-2024 10:25-0400 Heart rate 82 /min Mohamad Mouchli [facility] 03-08-2024 10:25-0400 Mean blood pressure 78 mm[Hg] Mohamad Mouchli [facility] 03-08-2024 10:25-0400 Respiratory rate 17 /min Mohamad Mouchli [facility] 03-08-2024 10:25-0400 SaO2% (BldA) [Mass fraction] 98 % Mohamad Mouchli [facility] 03-08-2024 10:25-0400 Systolic blood pressure 120 mm[Hg] Mohamad Mouchli [facility] 03-08-2024 10:17-0400 Body temperature 97.34 [degF] Mohamad Mouchli [facility] 03-08-2024 08:46-0400 Body temperature 98.06 [degF] Mohamad Mouchli [facility] 03-08-2024 08:46-0400 Respiratory rate 20 /min Mohamad Mouchli [facility] 02-18-2024 13:23-0400 Body height 165.1 cm Alessandro Levi DPM Work Phone: [facility] 02-18-2024 13:23-0400 Body mass index (BMI) [Ratio] 31.95 kg/m2 Alessandro Levi DPM Work Phone: [facility] 02-18-2024 13:23-0400 Body weight 87.09 kg Alessandro Levi DPM Work Phone: [facility] 02-18-2024 13:23-0400 Diastolic blood pressure 80 mm[Hg] Alessandro Levi DPM Work Phone: [facility] 02-18-2024 13:23-0400 Heart rate 88 /min Alessandro Levi DPM Work Phone: [facility] 02-18-2024 13:23-0400 Systolic blood pressure 125 mm[Hg] Alessandro Levi DPM Work Phone: [facility] 02-03-2024 10:52-0400 Diastolic blood pressure 67 mm[Hg] Mohamad Mouchli [facility] 02-03-2024 10:52-0400 Heart rate 80 /min Mohamad Mouchli [facility] 02-03-2024 10:52-0400 Mean blood pressure 87 mm[Hg] Mohamad Mouchli [facility] 02-03-2024 10:52-0400 Respiratory rate 29 /min Mohamad Mouchli [facility] 02-03-2024 10:52-0400 SaO2% (BldA) [Mass fraction] 100 % Mohamad Mouchli [facility] 02-03-2024 10:52-0400 Systolic blood pressure 127 mm[Hg] Mohamad Mouchli [facility] 02-03-2024 10:45-0400 Diastolic blood pressure 67 mm[Hg] Mohamad Mouchli [facility] 02-03-2024 10:45-0400 Heart rate 76 /min Mohamad Mouchli [facility] 02-03-2024 10:45-0400 Mean blood pressure 87 mm[Hg] Mohamad Mouchli [facility] 02-03-2024 10:45-0400 Respiratory rate 22 /min Mohamad Mouchli [facility] 02-03-2024 10:45-0400 SaO2% (BldA) [Mass fraction] 99 % Mohamad Mouchli [facility] 02-03-2024 10:45-0400 Systolic blood pressure 127 mm[Hg] Mohamad Mouchli [facility] 02-03-2024 10:40-0400 Diastolic blood pressure 67 mm[Hg] Mohamad Mouchli [facility] 02-03-2024 10:40-0400 Heart rate 76 /min Mohamad Mouchli [facility] 02-03-2024 10:40-0400 Mean blood pressure 87 mm[Hg] Mohamad Mouchli [facility] 02-03-2024 10:40-0400 Respiratory rate 28 /min Mohamad Mouchli [facility] 02-03-2024 10:40-0400 SaO2% (BldA) [Mass fraction] 100 % Mohamad Mouchli [facility] 02-03-2024 10:40-0400 Systolic blood pressure 127 mm[Hg] Mohamad Mouchli [facility] 02-03-2024 10:30-0400 Blood Pressure Location Mohamad Mouchli [facility] 02-03-2024 10:30-0400 Body temperature 97.7 [degF] Mohamad Mouchli [facility] 02-03-2024 10:25-0400 Respiratory rate 10 /min Mohamad Mouchli [facility] 02-03-2024 10:20-0400 Respiratory rate 10 /min Mohamad Mouchli [facility] 02-03-2024 10:15-0400 Respiratory rate 10 /min Mohamad Mouchli [facility] 02-03-2024 08:55-0400 Blood Pressure Location Mohamad Mouchli [facility] 02-03-2024 08:55-0400 Body temperature 97.7 [degF] [facility] [facility] 12-21-2023 13:43-0400 Blood Pressure Location Mandi Abdulli [facility] 12-21-2023 13:43-0400 Diastolic blood pressure 78 mm[Hg] Aldodianne Frankojalen [facility] 12-21-2023 13:43-0400 Heart rate 76 /min Aldodianne Frankojalen [facility] 12-21-2023 13:43-0400 Respiratory rate 16 /min Aldodianne Frankojalen [facility] 12-21-2023 13:43-0400 Systolic blood pressure 118 mm[Hg] Aldodianne Frankojalen [facility] 02-26-2022 15:04-0400 Body height 162.56 cm Xochitl Hernandez MD Work Phone: [facility] 250 DO Work Phone: 02-26-2022 15:04-0400 Body mass index (BMI) [Ratio] Medical Reason Not Done Xochitl Hernandez MD Work Phone: [facility] 250 DO Work Phone: 02-26-2022 15:04-0400 Diastolic blood pressure 64 mm[Hg] Xochitl Hernandez MD Work Phone: [facility] 250 DO Work Phone: 02-26-2022 15:04-0400 Heart rate 72 /min Xochitl Hernandez MD Work Phone: [facility] 250 DO Work Phone: 02-26-2022 15:04-0400 Systolic blood pressure 120 mm[Hg] Xochitl Hernandez MD Work Phone: [facility] 250 DO Work Phone: 10-15-2021 12:59-0400 Body height 162.56 cm Xochitl Hernandez MD Work Phone: [facility] 250 DO Work Phone: 10-15-2021 12:59-0400 Body mass index (BMI) [Ratio] 35.87 kg/m2 Xochitl Hernandez MD Work Phone: [facility] 250 DO Work Phone: 10-15-2021 12:59-0400 Body surface area Derived from formula 1.99 m2 Xochitl Hernandez MD Work Phone: [facility] DO Work Phone: 10-15-2021 12:59-0400 Body weight 94.8 kg Xochitl Hernandez MD Work Phone: [facility] 250 DO Work Phone: 10-15-2021 12:59-0400 Diastolic blood pressure 68 mm[Hg] Xochitl Hernandez MD Work Phone: [facility] 250 DO Work Phone: 10-15-2021 12:59-0400 Heart rate 66 /min Xochitl Hernandez MD Work Phone: [facility] 250 DO Work Phone: 10-15-2021 12:59-0400 Systolic blood pressure 124 mm[Hg] Xochitl Hernandez MD Work Phone: 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) Start: 09-27-2024 End: 09-29-2024 Clinisync Result Encounter Generic External Data Provider [facility] Unsolicited Start: 09-27-2024 End: 09-29-2024 Clinisync Result Encounter Generic External Data Provider [facility] Unsolicited Start: 09-14-2024 End: 09-14-2024 Bamboo flowsheet Yossi Landers MD Work Phone: [facility] Start: 09-14-2024 End: 09-14-2024 Bamboo flowsheet Yossi Landers MD Work Phone: [facility] Start: 09-14-2024 End: 09-14-2024 Office outpatient visit 25 minutes Yossi Landers MD Work Phone: [facility] Comment on above: Chronic combined sys tolic and diastolic congestive heart failure (CMS/HCC) (Primary Dx) Start: 09-14-2024 End: 09-14-2024 ambulatory YOSSI LANDERS Not Available Start: 09-07-2024 End: 09-07-2024 ambulatory YOSSI LANDERS Not Available Start: 08-23-2024 End: 08-23-2024 Telephone encounter Seble Mejia RN Work Phone: [facility] Start: 08-13-2024 End: 08-13-2024 ambulatory Yossi Landers II Work Phone: [facility] Work Phone: Start: 08-13-2024 End: 08-13-2024 Departed Referred Yossi Landers II Work Phone: [facility] Start: 08-13-2024 End: 08-15-2024 Clinisync Result Encounter Generic External Data Provider [facility] External Department Unsolicited Start: 08-13-2024 End: 08-15-2024 Clinisync Result Encounter Generic External Data Provider [facility] Unsolicited Start: 08-06-2024 End: 08-08-2024 Refill Yossi Landers MD Work Phone: [facility] Comment on above: Nausea Degenerative lumbar spinal stenosis; Depression with anxiety Start: 07-29-2024 End: 07-29-2024 Bamboo flowsheet Kristen Ham Nataliia DO Work Phone: [facility] Start: 07-29-2024 End: 07-29-2024 Bamboo flowsheet Kristen K Nataliia DO Work Phone: [facility] Start: 07-29-2024 End: 07-29-2024 Office outpatient new 45 minutes Kristen Fatoumata Bazanck DO Work Phone: [facility] Comment on above: Hypersomnolence (Melvi radames Dx); Panlobular emphysema (CMS/HCC) Start: 07-29-2024 End: 07-29-2024 ambulatory KRISTEN WILLIAM Not Available Start: 07-25-2024 End: 07-25-2024 [...] OJEDA Not Available Start: 07-03-2024 End: 07-04-2024 Refbritton PALACIOS Work Phone: [facility] Comment [...] [facility] Start: 05-16-2024 End: 05-16-2024 Bamboo flowsmellisa Landers MD Work Phone: [facility] [...] Start: 03-08-2024 End: 03-08-2024 ambulatory Mandi Glez Facility:[facility] Start: 03-08-2024 End: 03-08-2024 Patient encounter procedure Mandi Glez [facility] Start: 03-02-2024 End: 03-02-2024 Refill Salud Mason PA Work Phone: [facility] Comment on above: Depression with anxi ety; [...] neuropathy, without long-term current use of insulin ([facility]); Onychomycosis; Toe pain, bilateral Start: 02-18-2024 End: 02-18-2024 ambulatory ALESSANDRO LEVI Not Available Start: 02-03-2024 End: 02-03-2024 ambulatory Mandi Glez Facility:[facility] Start: 02-03-2024 End: 02-03-2024 Patient encounter procedure Mandi Glez [facility] Start: 01-28-2024 End: 01-28-2024 ambulatory SALUD MASON Not Available Start: 01-20-2024 End: 01-20-2024 ambulatory YOSSI LANDERS Not Available Start: 12-28-2023 End: 12-28-2023 ambulatory YOSSI Meadows LANDERS Not Available Start: 12-21-2023 End: 12-21-2023 ambulatory Mandi Glez Facility:[facility] Start: 12-21-2023 End: 12-21-2023 Patient encounter procedure Mandi Glez [facility] Start: 12-14-2023 End: 12-14-2023 ambulatory YOSSI LANDERS Not Available Start: 12-07-2023 [facility] Start: 11-23-2023 End: 11-23-2023 ambulatory SALUD MASON Not Available Start: 11-02-2023 End: 11-02-2023 ambulatory YOSSI Dori LANDERS Not Available Start: 10-26-2023 End: 10-26-2023 ambulatory BEL OJEDA Not Available Start: 10-12-2023 End: 10-12-2023 ambulatory YOSSI [place] CAILIN Not Available Start: 08-03-2023 Refill Lara Thursday [...] OJEDA Facility:[facility] Start: 04-14-2022 Patient encounter procedure [id number] ERICA HHVI ULTRASOUND 01 Work Phone: [facility] [place] Work Phone: Start: 04-14-[address] Xochitl Hernandez Facility:[id number] Start: 02-26-2022 Office outpatient vi sit 25 minutes Xochitl Hernandez MD Work Phone: [facility] DO Work Phone: Start: 01-07-2022 End: 01-08-2022 ambulatory BEL OJEDA Facility:[facility] Start: 12-30-2021 End: 12-31-[address] YOSSI LANDERS Facility:[facility] Start: 12-05-2021 End: 12-06-[address] YOSSI LANDERS Facility:[facility] Start: 11-11-[address] Xochitl Hernandez Facility:[id number] Start: 10-15-2021 Office outpatient vi sit 25 minutes Xochitl Hernandez MD Work Phone: [facility] 250 DO Work Phone: Procedures Date Procedure Procedure Detail Performing Clinician Start: 09-27-2024 BLOOD CULTURE 2 Generic External Data Provider Start: 09-27-2024 BLOOD CULTURE 1 Generic External Data Provider Start: 08-13-2024 URINE CULTURE - [facility] Generic External Data Provider Start: 05-03-2024 Brncdilat rspse spmtry pre&post-brncdilat admn Yossi Landers MD Work Phone: Start: 05-02-2024 Hemoglobin glycosylated a1c Yossi faustin MD Work Phone: Start: 03-08-2024 Sigmoidoscopy Mandi Glez Start: 02-03-2024 Colonoscopy Mandi Glez Start: 02-03-2024 Esophagogastroduodenoscopy Mandi rao Colonoscopy Xochitl banerjee MD Work Phone: H/O: surgery History of gastr ic surgery Mandi Glez Hernia repair Xochitl patel MD Work Phone: Hysterectomy Xochitl banerjee MD Work Phone: Procedure on back Xochitl rodriguez MD Work Phone: Surgical procedure Xochitl amador MD Work Phone: Plan of Treatment Date Care Activity Detail Author Start: 02-20-2025 Influenza vaccination Influenz a Vaccine (Season Ended) [facility] Start: 01-27-2025 Urine screening for protein Diabetes: Urine Protein Screening [facility] Start: 12-08-2024 Hemoglobin A1c measurement Diabetes: Hemoglobin A1C [facility] Start: 10-07-2024 End: 10-07-2024 Patient encounter procedure 10/07/2024 10:30 AM EDT Office Visit [facility] [address] [facility] [address] [place] [address] Salud Mason PA [address] [facility] [address] [place] [address] [facility] Start: 10-06-2024 End: 10-06-2024 Patient encounter procedure [facility] Start: 09-29-2024 End: 09-29-2024 Patient encounter procedure 09/29/2024 11:00 AM EDT Office Visit [facility] [address] [facility] [address] [place] [address] Salud Mason PA [address] [facility] [address] [place] [address] Arrived [facility] Comment on above: Arrived Start: 09-23-2024 End: 09-23-2024 Patient encounter procedure 09/23/2024 11:00 AM EDT Office Visit [facility] [address] [place] [id number] Kristen William, DO [address] [facility] [address] [facility] Start: 09-22-2024 End: 09-22-2024 Patient encounter procedure 09/22/2024 11:30 AM EDT Office Visit [facility] [address] [facility] [address] [place] [address] Yossi Landers MD [address] [facility] [address] [place] [address] [facility] Start: 09-14-2024 End: 09-14-2024 Patient encounter procedure 09/14/2024 11:15 AM EDT Office Visit [facility] [address] [facility] [address] [place] [address] Yossi Landers MD 112 [facility] [address] [place] [address] Arrived [facility] Comment on above: Arrived Start: 08-13-2024 Urine culture [facility] Start: 08-13-2024 Bacteria identified in Urine by Culture Urine Culture [facility] Start: 08-02-2024 Hemoglobin A1c measurement Diabetes: Hemoglobin A1C [facility] Start: 07-29-2024 End: 07-29-2024 Patient encounter procedure [facility] Comment on above: Panlobular emphysema ([facility]) Start: 07-25-2024 End: 07-25-2024 Patient encounter procedure [facility] Comment on above: Arrived Start: 07-21-2024 End: 07-21-2024 Patient encounter procedure [facility] Comment on above: Type 2 diabetes gail itus with diabetic neuropathy, without long-term current use of insulin ([facility]) (Primary Dx); Pain due to onychomycosis of toenails of both feet; Venous insufficiency Start: 07-12-2024 End: 07-12-2024 Patient encounter procedure 07/12/2024 2:20 PM EST Office Visit [facility] [address] [facility] [address] [place] [address] Bel Ojeda MD 112 [facility] [address] [place] [address] [facility] Start: 07-07-2024 End: 07-07-2024 Patient encounter procedure 07/07/2024 1:40 PM EST Office Visit [facility] [address] [facility] [address] [place] [address] Alessandro Levi, DPM [address] [facility] [address] [place] [address] [facility] Start: 06-30-2024 End: 06-30-2024 Patient encounter procedure 06/30/2024 11:45 AM EST Office Visit [facility] [address] [facility] [address] [place] [address] Yossi Landers MD [address] [facility] [address] [place] [address] [facility] Start: 06-10-2024 End: 06-10-2024 Patient encounter procedure [facility] Comment on above: Arrived Start: 05-16-2024 End: 05-16-2024 Patient encounter procedure [facility] Comment on above: Arrived Start: 05-02-2024 End: 05-02-2024 Patient encounter procedure 05/02/2024 11:30 AM EST Office Visit [facility] [address] [facility] [address] [place] [address] Yossi Landers MD 112 [facility] [address] [place] [address] [facility] Start: 04-28-2024 End: 04-28-2024 Patient encounter procedure [facility] Comment on above: Type 2 diabetes gail itus with diabetic neuropathy, without long-term current use of insulin ([facility]) (Primary Dx); Pain due to onychomycosis of toenails of both feet; Venous insufficiency Start: 03-15-2024 Hemoglobin A1c measurement Diabetes: Hemoglobin A1C [facility] Start: 02-21-2024 Influenza vaccination Influenza Vacc ine (#1) [facility] Start: 02-18-2024 End: 02-18-2024 Patient encounter procedure 02/18/2024 1:20 PM EDT Office Visit [facility] [address] [facility] [facility] [address] [place] [address] Alessandro Levi, DPM [address] [facility] [address] [place] [address] Thickened nail; Type 2 diabetes mellitus with diabetic neuropathy, without long-term current use of insulin ([facility]) [facility] Comment on above: Thickened nail; Type 2 diabetes mellitus with diabetic neuropathy, without long-term current use of insulin ([facility]) Start: 02-10-2024 Medicare Annual Well ness (AWV) Medicare Annual Wellness (AWV) [facility] Start: 08-10-2023 End: 08-10-2023 Patient encounter procedure [facility] Start: 05-12-2023 Hemoglobin A1c measurement Diabetes: Hemoglobin A1C [facility] Start: 02-20-2023 Influenza vaccination Influenza Vacc ine (#1) [facility] Start: 08-12-2022 FUV, Provider: Xochitl Hernandez, Status: Pen, Time: 2:20 PM FUV, Provider: Xochitl Hernandez, Status: Pen, Time: 2:20 PM [facility] [employer] 250 DO Work Phone: Start: 04-14-2022 CAROTID, Provider: ERICA STALLWORTHI ULTRASOUND 01,[id number], Status: Pen, Time: 10:45 AM CAROTID, Provider: ERICA STALLWORTHI ULTRASOUND 01,[id number], Status: Pen, Time: 10:45 AM [place] [employer] 250 DO Work Phone: Start: 02-26-2022 FUV, Provider: Xochitl Hernandez, Status: Pen, Time: 2:40 PM FUV, Provider: Xochitl Hernandez, Status: Pen, Time: 2:40 PM [facility] [employer] 250 DO Work Phone: Start: 11-11-2021 ECHO, Provider: MEERA STALLWORTHI ULTRASOUND 01,[id number], Status: Pen, Time: 10:45 AM ECHO, Provider: ERICA HHVI ULTRASOUND 01,[id number], Status: Pen, Time: 10:45 AM [place] [employer] 250 DO Work Phone: Start: 07-30-2020 Glaucoma screening Diabetes: R etinopathy Screening [facility] Start: 06-17-2018 Pneumococcal Vaccine : 65+ Years (2 - PPSV23 or PCV20) Pneumococcal Vaccine: 65+ Years (2 - PPSV23 or PCV20) [facility] Start: 06-17-2018 Pneumococcal Vaccine : 65+ Years (2 of 2 - PPSV23 or PCV20) Pneumococcal Vaccine: 65+ Years (2 of 2 - PPSV23 or PCV20) [facility] BLOOD CULTURE 1 BLOOD CULTURE 1 Lab Routine 09/27/2024 12:40 PM EDT [facility] BLOOD CULTURE 2 BLOOD CULTURE 2 Lab Routine 09/27/2024 12:46 PM EDT [facility] Echocardiogram 2D complete Echocardiogram 2D complete Echocardiography Routine 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) Ordered: 05/02/2024 [facility] Work Phone: Comment on above: Ordered: 05/02/2024 URINE CULTURE - [facility] URINE CULTU RE - [facility] Lab Routine 08/13/2024 5:00 PM EST [facility] Immunizations Immunization Date Immunization Notes Care Provider Fa cili 09-16-2020 Pfizer-BioNTech COVID-19 Vacc 30 MCG/0.3ML Intramuscular Suspension Xochitl Hernandez MD Work Phone: [place] [address] DO Work Phone: 08-25-2020 Pfizer-BioNTech COVID-19 Vacc 30 MCG/0.3ML Intramuscular Suspension Xochitl Hernandez MD Work Phone: [place] [address] DO Work Phone: 05-07-2018 pneumococcal conjuga te vaccine, 13 valent Xochitl Hernandez MD Work Phone: [place] [address] DO Work Phone: 04-22-2018 pneumococcal conjuga te vaccine, 13 valent Xochitl Hernandez MD Work Phone: [facility] 11-28-2015 zoster vaccine, live Xochitl Hernandez MD Work Phone: [facility] 01-10-2015 zoster vaccine live Xochitl Hernandez MD Work Phone: [facility] Payers Date Payer Category Payer Medicare [employer] MEDICARE ADVANTAGE [employer] MEDICARE [id number] 2022-Present [address] [address] [place] [address] [id number] 2022 Medicare (Managed Care) [facility] EDICARE ADVANTAGE [id number] 2022 Private Health Insurance [id number] 1959 Medicaid [id number] 1959 Medicare [id number] 1942 Unknown [id number] 2.16.840.1.307590.3.579.2. 1068 1942 Unknown [id number] 2.16.840.1.681526.3.579.2. 1068 1942 Unknown [id number] 2.16.840.1.882050.3.579.2. 593 1942 Unknown [id number] 2.16.840.1.159042.3.579.2. 593 1942 Unknown [id number] 2.16.840.1.334687.3.579.2. 593 1942 Unknown [id number] 2.16.840.1.091356.3.579.2. 593 1942 Unknown [id number] 2.16.840.1.232491.3.579.2. 593 1942 Unknown [id number] 2.16.840.1.892400.3.579.2. 593 1942 Unknown [id number] 2.16.840.1.041003.3.579.2. 593 1942 Unknown [id number] 2.16.840.1.806553.3.579.2. 727 1942 Unknown [id number] 2.16.840.1.365722.3.579.2. 727 1942 Unknown [id number] 2.16.840.1.551190.3.579.2. 727 1942 Unknown [id number] 2.16.840.1.566116.3.579.2. 125 1942 Unknown [id number] 2.16.840.1.568911.3.579.2. 125 1942 Unknown [id number] 2.16.840.1.285791.3.579.2. 125 1942 Unknown [id number] 2.16.840.1.344822.3.579.2. 125 1942 Unknown [id number] 2.16.840.1.237403.3.579.2. 1258 1942 Unknown [id number] 2.16.840.1.226112.3.579.2. 125 1942 Unknown [id number] 2.16.840.1.252928.3.579.2. 125 1942 Unknown [id number] 2.16.840.1.858176.3.579.2. 125 1942 Unknown [id number] 2.16.840.1.589383.3.579.2. 125 1942 Unknown [id number] 2.16.840.1.927450.3.579.2. 125 1942 Unknown [id number] 2.16.840.1.275542.3.579.2. 1252 Unknown [id number] 2.16.840.1.323707.3.579.2. 1258 1942 Unknown [id number] 2.16.840.1.212869.3.579.2. 9 1942 Unknown [id number] 2.16.840.1.050492.3.579.2. 1258 1942 Unknown [id number] 2.16.840.1.541067.3.579.2. 1258 1942 Unknown [id number] 2.16.840.1.540024.3.579.2. 1258 1942 Unknown [id number] 2.16.840.1.105838.3.579.2. 1258 1942 Unknown [id number] 2.16.840.1.440048.3.579.2. 1258 1942 Unknown [id number] 2.16.840.1.156777.3.579.2. 1258 1942 Unknown [id number] 2.16.840.1.907043.3.579.2. 1258 Unknown Social History Date Type Detail Facility Start: 11-12-2022 End: 09-29-2024 No alcohol use No alcohol use [facility] Comment on above: 4-5 servings daily; quit 1995, 2ppd; Start: 11-20-2022 End: 02-18-2024 Tobacco smoking status [facility] Ex-smoker [facility] Work Phone: End: 10-27-2012 History of tobacco use Current smoker [facility] End: 10-27-2012 History of tobacco use Cigarette Smoker [facility] Start: 11-20-2022 End: 02-18-2024 Tobacco use and exposure Smokeless tobacco non-user [facility] Start: 07-20-2023 End: 09-14-2024 Alcohol intake Ex-drinker (finding) [facility] Start: 11-12-2022 End: 09-29-2024 Humiliation, Afraid, Rape, and Kick questionnaire [HARK] [...] a drink containing alcohol? Never [facility] Start: 08-15-2024 Sex Female (finding) [place] Start: 1940 Sex Assigned At Female F [facility] Medical Equipment Procedure Code Equipment Code Equipment Origin al Text Equipment Identifier Dates [id number] Start: 11-05-2022 USE 1 LANCET TO TEST BLOOD SUGAR ONCE DAILY [id number] Start: 11-05-2022 Functional Status Date Assessment Result Facility 03-08-2024 Functional Status N/A Jonh Ana [facility] 12-21-2023 Functional Status N/A JonhWillem [facility] Clinical Notes 10-15-2020 to 09-29-2024 PHILIP Magallanes - 09/29/2024 11:00 AM Gloria Landers MD - 09/14/2024 11:15 AM EDTTelephone Encounter - Susana Talley - 08/23/2024 12:29 PM Ayden William DO - 07/29/2024 10:15 AM EST Note Date & Type Note Facility 09-29-2024 History of Presen t illness Narrative Images from the original note were not included. HPI Med Refill Additional comments: Albuterol for nebulizer Last edited by Chelita Hurst LPN on 09/29/2024 10:57 AM. Subjective Patient ID: Jaquelin Norwood is a 84 y.o. female who presents for [facility] follow up. Flowsheet Row Patient Outreach from 09/28/2024 in [facility] with Daniela Alvarado LPN Hospital Information ED, Hospital or Senior Living Facility Discharge? ED Patient has been contacted within 2 days of being seen in the ED Yes Diagnosis Shortness of breath, Pneumonia Discharge Date 09/27/24 Discharged To: Home Setting Discharge Hospital [facility] Engagement Call Start Time 1101 Admission Date 09/27/24 Medications Discharge medications reviewed and reconciled from hospital? Yes Is the patient having any side effects they believe may be caused by any medication additions or changes? No Does the patient have all medications ordered at discharge? Yes Nursing Interventions No intervention needed Medication Comments Ordered Zithromax Z-Pack Appointments Does the patient have a primary care provider? Yes [appt 09/29] Nursing Interventions Verified appointment date/time/provider Does the patient have any upcoming specialty appointments? No Self Management Does patient have home health? yes What is the home health agency? [facility] Has home health visited the patient within 72 hours of discharge? Yes [visited on 09/26 and will visit again on 09/30] Patient Teaching Does the patient have access to their discharge instructions? Yes Nursing Interventions Reviewed instructions with patient What is the patient's perception of their health status since discharge? Same Is the patient/caregiver able to teach back the hierarchy of who to call/visit for symptoms/problems? PCP, Specialist, Home Health nurse, Urgent Care, ED, 911 Yes Wrap Up Wrap Up Additional Comments labs, ECG Call End Time 1114 Also seen 09/20/24 Dx. Nausea, Rx'd Ondansetron, seen on 09/23/24 - 09/24/24 Dx. Hyponatremia, Hypokalemia, CHF, Nausea. They had her hold her Torsemide and Furosemide and depending on how her BMP came back she can resume 09/30/24. She is not feeling better. She is complaining of pain in left axila area which she was complaining of this pain when she went to the ER and they did check her heart and told her it was ok. C/o cramps in her legs at night. Current Outpatient Medications on File Prior to Visit Medication Sig Dispense Refill albuterol HFA (ProAir HFA) 90 mcg/act inhaler Inhale 2 puffs every 4 (four) hours if needed. (Patient not taking: Reported on 09/21/2024) ALPRAZolam (Xanax) 0.25 MG tablet Take 1 tablet (0.25 mg) by mouth 3 (three) times a day as needed for anxiety 90 tablet 1 aspirin 81 MG EC tablet Take 81 mg by mouth 1 (one) time each day at the same time. atorvastatin (Lipitor) 40 MG tablet TAKE 1 TABLET EVERY MORNING 90 tablet 3 azithromycin (Zithromax) 250 MG tablet Take 250 mg by mouth Daily Take 500mg day 1 and then 250mg for 4 days Blood Glucose Monitoring Suppl (ONE Sponge ULTRA 2) w/Device kit Inject under the skin 1 (one) time each day. carvedilol (Coreg) 12.5 MG tablet TAKE 1 [...] TAKE 1 TABLET BY MOUTH AT BEDTIME (Patient not taking: Reported on 09/21/2024) 90 tablet 0 Vajfjvdhrrz-Mwsrbrkfr-[place] (Trelegy Ellipta) 100-62.5-25 MCG/ACT aerosol powder Inhale 1 puff Daily 3 each 3 gabapentin (Neurontin) 100 MG capsule Take 2 capsules (200 mg) by mouth in the morning and 2 capsules (200 mg) before bedtime. 360 capsule 3 glucose blood (True Metrix Blood Glucose Test) test strip 1 each by Other route 1 (one) time each day at the same time. (Patient not taking: Reported on 09/21/2024) HYDROcodone-acetaminophen (Solo) 7.5-325 MG tablet Take 1 tablet by mouth every 6 (six) hours if needed for severe pain 120 tablet 0 Lancets (RegaaloTouch Delica Plus [id number]) misc USE 1 LANCET TO TEST BLOOD SUGAR ONCE DAILY levothyroxine (Synthroid, Levoxyl) 100 MCG tablet TAKE 1 TABLET (100 MCG) BY MOUTH IN THE MORNING. TAKE BEFORE MEALS. 90 tablet 3 linaCLOtide (Linzess) 290 MCG capsule Take by mouth (Patient not taking: Reported on 09/21/2024) lisinopril 5 MG tablet TAKE 1 TABLET EVERY MORNING 90 tablet 3 loratadine (Claritin) 10 MG tablet Take 1 tablet (10 mg) by mouth Daily 100 tablet 3 meclizine (Antivert) 12.5 MG tablet Take 12.5 mg by mouth 3 (three) times a day as needed for dizziness. Multiple Vitamins-Minerals (OCUVITE ADULT 50+ PO) Take by mouth 1 (one) time each day. nitroglycerin (Nitrostat) 0.[address] 0.4 mg under the tongue every 5 (five) minutes if needed. nystatin (Mycostatin) ointment every 12 (twelve) hours. ondansetron (Zofran) 4 MG tablet Take 2 tablets (8 mg) by mouth every 8 (eight) hours if needed for nausea or vomiting 60 tablet 1 polyethylene glycol, PEG, 3350 (Glycolax, Miralax) powder Take 17 g by mouth Daily as needed (constipation) torsemide (Demadex) 20 MG tablet Take 1 tablet (20 mg) by mouth Daily (Patient not taking: Reported on 09/26/2024) 30 tablet 11 [DISCONTINUED] albuterol (2.5 MG/3ML) 0.083% nebulizer solution Take 2.5 mg by nebulization every 8 (eight) hours if needed. [DISCONTINUED] Zanxkew-Rokfewyzvkx-Ldenajxxuo (Breztri Aerosphere) 160-9-4.8 MCG/ACT aerosol Inhale 2 puffs in the morning and 2 puffs before bedtime. (Patient not taking: Reported on 09/21/2024) 10.7 g 11 [DISCONTINUED] metOLazone (Zaroxolyn) 2.5 MG tablet Take 1 tablet (2.5 mg) by mouth Daily for 7 days (Patient not taking: Reported on 09/26/2024) 7 tablet 0 [DISCONTINUED] omeprazole (PriLOSEC) [address] capsule TAKE 1 CAPSULE (40 MG) BY MOUTH IN THE MORNING. TAKE BEFORE MEALS. (Patient not taking: Reported on 09/28/2024) 90 capsule 3 [DISCONTINUED] ondansetron ODT (Zofran-ODT) 4 MG disintegrating tablet Take 4 mg by mouth every 6 (six) hours if needed for nausea or vomiting [DISCONTINUED] predniSONE (Deltasone) 20 MG tablet Take 20 mg by mouth in the morning and 20 mg before bedtime. 5 days. No current facility-administered medications on file prior to visit. I have reviewed and reconciled the history and medication list with the patient today. Allergies Allergen Reactions Benztropine Mesylate Hallucinations Naproxen Swelling gogo oral edema Benztropine Other Vioxx [Rofecoxib] Social History Tobacco Use Smoking status: Former Current packs/day: 0.00 Types: Cigarettes Quit date: 10/27/2012 Years since quittin.9 Smokeless tobacco: Never Vaping Use Vaping status: Never Used Substance Use Topics Alcohol use: Not Currently Comment: caffeine intake: 2-3 cups per day of coffee Drug use: Not Currently Family History Problem Relation Name Age of Onset Heart failure Mother Diabetes Mother Cancer Mother Heart disease Mother Cancer Father Diabetes Sister Heart disease Brother Past Medical History: Diagnosis Date Acquired hypothyroidism ([facility]) Acute exacerbation of chronic obstructive pulmonary disease ([facility]) 07/16/2016 Anxiety state ([facility] Cardiomegaly Chronic airway obstruction ([facility]) Chronic back pain spinal stenosis Depressive disorder ([facility]) Diabetes mellitus without complication Diabetes mellitus without mention of complication, type II or unspecified type, not stated as uncontrolled Encephalopathy 10/14/2022 Essential hypertension, benign ([facility]) Former smoker 08/15/2017 H/O being hospitalized 02/20/2020 Resp. Distress, Hypoxia, JONE, LLL Pneumonia, Sepsis History of echocardiogram 02/21/2020 ECHO EF 65-70% [facility] Severely Dilated (02/21/2020) Hyperlipidemia, unspecified (CMS/HCC) Hypertonicity of bladder Left thyroid nodule ([facility]) Morbid obesity ([facility]) 07/04/2019 Osteoarthrosis Peripheral vascular disease, unspecified ([facility]) Unspecified combined systolic (congestive) and diastolic (congestive) heart failure Past Surgical History: Procedure Laterality Date BACK SURGERY repair herniated disc COLONOSCOPY 2010 COLONOSCOPY W/ POLYPECTOMY 03/08/2024 EGD 02/03/2024 W/ Esophageal Dilation FLEXIBLE SIGMOIDOSCOPY 02/03/2024 FNA W IMAGING GUIDANCE thyroid 03/22/19, 07/08/21 HYSTERECTOMY OTHER SURGICAL HISTORY 01/15/2001 LT common iliac artery stent, Dr. Cortes OTHER SURGICAL HISTORY 09/22/2003 LT SFA stent, Dr. Cortes THYROID SURGERY partial thyroidectomy Visit Vitals BP 136/78 Pulse 73 Resp 18 Ht 5' 5 SpO2 94% BMI 33.45 kg/m Smoking Status Former BSA 2.05 m Review of Systems Constitutional: Positive for fatigue. Negative for chills and fever. Respiratory: Positive for cough and shortness of breath. Negative for wheezing. Pain with inspiration Cardiovascular: Positive for leg swelling. Negative for chest pain and palpitations. Gastrointestinal: Positive for nausea. Negative for abdominal pain, constipation, diarrhea and vomiting. Musculoskeletal: Positive for arthralgias and gait problem. Leg cramps Skin: Negative for rash. Objective Physical Exam Constitutional: Appearance: She is obese. She is ill-appearing. HENT: Head: Normocephalic and atraumatic. Right Ear: Decreased hearing noted. Left Ear: Decreased hearing noted. Cardiovascular: Rate and Rhythm: Normal rate and regular rhythm. Heart sounds: Murmur heard. Systolic murmur is present with a grade of 2/6. Pulmonary: Effort: Accessory muscle usage present. Breath sounds: No stridor. Examination of the right-lower field reveals rhonchi. Examination of the left-lower field reveals rhonchi. Decreased breath sounds and rhonchi (Soft) present. No wheezing. Comments: Pt seeming to require more effort to take a deep breath. Is able to speak in complete, though short sentences. Musculoskeletal: Right lower leg: Edema present. Left lower leg: Edema present. Skin: General: Skin is warm and dry. Findings: Bruising present. Neurological: General: No focal deficit present. Mental Status: She is alert and oriented to person, place, and time. Motor: Weakness present. Gait: Gait abnormal. Deep Tendon Reflexes: Reflexes normal. Comments: Using a wheelchair Psychiatric: Mood and Affect: Mood normal. Thought Content: Thought content normal. Assessment/Plan Diagnoses and all orders for this visit: Community acquired pneumonia, unspecified laterality Encouraged pt to finish the Zithromax as prescribed. Continue to aim for good fluid balance. Hyponatremia Will recheck BMP at follow up next week. Did encourage her to drink at least one Gatorade a day for now to continue to work on replenishing her sodium that was low at recent ER. She is currently holding her water pills. Will recheck A BMP at her follow up office visit in one week. Metolazone made her feel sick. Panlobular emphysema (CMS/HCC) - albuterol (2.5 MG/3ML) 0.083% nebulizer solution; Take 3 mL (2.5 mg) by nebulization every 8 (eight) hours if needed for wheezing or shortness of breath - triamcinolone acetonide (Kenalog-40) injection 40 mg Provided pt with refill on nebulizer solution. She can continue to use it as needed. Provided pt with Kenalog 40 mg IM today, she tolerated this well. Has had them in the past and found them helpful. Continue Trelegy. Nausea Can continue with Zofran as needed. She does find the medication helpful temporarily. Gastroesophageal reflux disease without esophagitis - omeprazole (PriLOSEC) [address] capsule; Take 1 capsule (40 mg) by mouth in the morning. Do not crush or chew.. She does not know why she has not been taking the Omeprazole. Will have her restart this at this time to see if it helps in calming down her stomach complaints. 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) Currently on Coreg and Lisinopril. Will plan to restart Torsemide at follow up if pt is improving. Consider addition of potassium. Consider updated ECHO as murmur was noted today, will recheck this at follow up. The patient was seen today in follow up of recent hospital ER visit. All available hospital records/labs/diagnostics were reviewed and discussed with the patient. ER discharge meds were reviewed. Any changes to plan are as noted. Follow up in about 1 week (around 10/06/2024) for Recheck with Lab. documented in this encounter [facility] 09-14-2024 History of Presen t illness Narrative Images from the original note were not included. Subjective Patient ID: Jaquelin Norwood is a 84 y.o. female who presents for Congestive Heart Failure and Anxiety. Pt has not increased Xanax to TID yet she had just filled rx for BID and has to wait until she is due again Edema Patient complains of edema in both ankles and feet and both lower legs. Onset of symptoms was 4 weeks ago, and patient reports symptoms have gradually improved since that time. Taking torsemide as directed Congestive Heart Failure Anxiety Diabetes Edema Past medical history is significant for CHF. Hypertension Associated symptoms include anxiety. Med Refill Current Outpatient Medications on File Prior to Visit Medication Sig Dispense Refill albuterol (2.5 MG/3ML) 0.083% nebulizer solution Take 2.5 mg by nebulization every 8 (eight) hours if needed. albuterol HFA (ProAir HFA) 90 mcg/act inhaler Inhale 2 puffs every 4 (four) hours if needed. ALPRAZolam (Xanax) 0.25 MG tablet Take 1 tablet (0.25 mg) by mouth 3 (three) times a day as needed for anxiety 90 tablet 1 aspirin 81 MG EC tablet Take 81 mg by mouth 1 (one) time each day at the same time. atorvastatin (Lipitor) 40 MG tablet TAKE 1 TABLET EVERY MORNING 90 tablet 3 Blood Glucose Monitoring Suppl (ONE TOUCH ULTRA 2) w/Device kit Inject under the skin 1 (one) time each day. Pvxnvgn-Ohesmrypkeq-Aeznlbcezw (Breztri Aerosphere) 160-9-4.8 MCG/ACT aerosol Inhale 2 [...] BY MOUTH AT BEDTIME 90 tablet 0 Olrvdlxlfdw-Swczohszh-Xkvgty (Trelegy Ellipta) 100-62.5-25 MCG/ACT aerosol powder Inhale 1 puff Daily 3 each 3 gabapentin (Neurontin) 100 MG capsule Take 2 capsules (200 mg) by mouth in the morning and 2 capsules (200 mg) before bedtime. 360 capsule 3 glucose blood (True Metrix Blood Glucose Test) test strip 1 each by Other route 1 (one) time each day at the same time. HYDROcodone-acetaminophen (Solo) 7.5-325 MG tablet Take 1 tablet by mouth every 6 (six) hours if needed for severe pain 120 tablet 0 Lancets (OneTouch Delica Plus [id number]) [facility] USE 1 LANCET TO TEST BLOOD SUGAR [...] by mouth 1 (one) time each day. nitroglycerin (Nitrostat) 0.[address] [...] for nausea or vomiting 60 tablet 1 polyethylene glycol, PEG, 3350 (Glycolax, Miralax) powder Take 17 g by mouth Daily as needed (constipation) torsemide (Demadex) 20 MG tablet Take 1 tablet (20 mg) by mouth Daily 30 tablet 11 [DISCONTINUED] ondansetron (Zofran) 4 MG tablet Take 2 tablets (8 mg) by mouth every 8 (eight) hours if needed for nausea or vomiting 60 tablet 1 No current facility-administered medications on file prior to visit. I have reviewed and reconciled the history and medication list with the patient today. Allergies Allergen Reactions Benztropine Mesylate Hallucinations Naproxen Swelling gogo oral edema Benztropine Other Vioxx [Rofecoxib] Social History Tobacco Use Smoking status: Former Current packs/day: 0.00 Types: Cigarettes Quit date: 10/27/2012 Years since quittin.8 Smokeless tobacco: Never Vaping Use Vaping status: Never Used Substance Use Topics Alcohol use: Not Currently Comment: caffeine intake: 2-3 cups per day of coffee Drug use: Not Currently Family History Problem Relation Name Age of Onset Heart failure Mother Diabetes Mother Cancer Mother Heart disease Mother Cancer Father Diabetes Sister Heart disease Brother Past Medical History: Diagnosis Date Acquired hypothyroidism ([facility]) Acute exacerbation of chronic obstructive pulmonary disease ([facility]) 07/16/2016 Anxiety state ([facility] Cardiomegaly Chronic airway obstruction ([facility]) Chronic back pain spinal stenosis Depressive disorder ([facility]) Diabetes mellitus without complication ([facility]) Diabetes mellitus without mention of complication, type II or unspecified type, not stated as uncontrolled Encephalopathy 10/14/2022 Essential hypertension, benign ([facility]) Former smoker 08/15/2017 H/O being hospitalized 02/20/2020 Resp. Distress, Hypoxia, JONE, LLL Pneumonia, Sepsis History of echocardiogram 02/21/2020 ECHO EF 65-70% [facility] Severely Dilated (02/21/2020) Hyperlipidemia, unspecified ([facility]) Hypertonicity of bladder Left thyroid nodule ([facility]) Morbid obesity ([facility]) 07/04/2019 Osteoarthrosis Peripheral vascular disease, unspecified ([facility]) Unspecified combined systolic (congestive) and diastolic (congestive) heart failure ([facility]) Past Surgical History: Procedure Laterality Date BACK SURGERY repair herniated disc COLONOSCOPY 2010 COLONOSCOPY W/ POLYPECTOMY 03/08/2024 EGD 02/03/2024 W/ Esophageal Dilation FLEXIBLE SIGMOIDOSCOPY 02/03/2024 FNA W IMAGING GUIDANCE thyroid 03/22/19, 07/08/21 HYSTERECTOMY OTHER SURGICAL HISTORY 01/15/2001 LT common iliac artery stentDr. Cortes OTHER SURGICAL HISTORY 09/22/2003 LT SFA stent, Dr. Cortes THYROID SURGERY partial thyroidectomy Visit Vitals BP 110/64 Pulse 67 Ht 5' 5 Wt 201 lb SpO2 96% BMI 33.45 kg/m Smoking Status Former BSA 2.05 m Review of Systems Objective Physical Exam Constitutional: General: She is not in acute distress. Appearance: She is ill-appearing. Cardiovascular: Rate and Rhythm: Normal rate and regular rhythm. Heart sounds: No murmur heard. Pulmonary: Effort: Accessory muscle usage and prolonged expiration present. Breath sounds: Decreased air movement present. Musculoskeletal: Right lower leg: Edema present. Left lower leg: Edema present. Neurological: Mental Status: She is alert. Psychiatric: Mood and Affect: Mood normal. Thought Content: Thought content normal. Judgment: Judgment normal. Assessment/Plan Diagnoses and all orders for this visit: 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) - metOLazone (Zaroxolyn) 2.5 MG tablet; Take 1 tablet (2.5 mg) by mouth Daily for 7 days Follow up in about 1 week (around 09/21/2024) for As Previously Scheduled. documented in this encounter [facility] 08-23-2024 Telephone encount er Note Hi, I am calling for Alma. Norwood. Birthdate [birth year]. She wanted to know if she could get some samples of the trilogy. Thank you, Tito. [facility] 08-23-2024 Miscellaneous Notes Formattin g of this note might be different from the original. Hi, I am calling for Alma. Norwood. Birthdate [birth year]. She wanted to know if she could get some samples of the trilogy. Thank you, Tito. documented in this encounter [facility] 08-08-2024 Telephone encount er Note OARRS reviewed, Rx sent into patient's pharmacy. [facility] 08-08-2024 Miscellaneous Notes Formattin g of this note might be different from the original. OARRS reviewed, Rx sent into patient's pharmacy. documented in this encounter [facility] 08-08-2024 Telephone encount er Note Soraidafran Sent [facility] 08-08-2024 Miscellaneous Notes Formattin g of this note might be different from the original. Soraidadoe Sent documented in this encounter [facility] 07-29-2024 History of Presen t illness Narrative Images from the original note were not included. Jaquelin Norwood presents today for COPD. She was referred by primary care provider. She is accompanied by her ikgtsrjb-um-hju at today's office visit. She does give [...] been off for last 2 days. Her cohwndct-kl-dkq her states that she believes they were [...] 90 tablet 3 Blood Glucose Monitoring Suppl ([employer] 2) w/Device kit Inject under the skin 1 (one) time each day. Aixfjzl-Scarhhftpar-Schqculgte (Breztri Aerosphere) 160-9-4.8 MCG/ACT aerosol Inhale 2 [...] each day at the same time. HYDROcodone-acetaminophen (Solo) 7.5-325 MG tablet Take 1 tablet by mouth every 6 (six) hours if needed for severe pain 120 tablet 0 Lancets (RegaaloTouch Delica Plus [id number]) [facility] USE 1 LANCET TO TEST BLOOD SUGAR [...] for nausea or vomiting 60 tablet 1 Msnkxlyyahf-Gnuikspgk-Vfeobi (Trelegy Ellipta) 100-62.5-25 MCG/ACT aerosol powder Inhale 1 puff Daily 1 each 5 No current facility-administered medications for this visit. Past Medical History: Diagnosis Date Acquired hypothyroidism ([facility]) Acute exacerbation of chronic obstructive pulmonary disease ([facility]) 07/16/2016 Anxiety state ([facility]) Cardiomegaly Chronic airway obstruction (CMS/HCC) Chronic back pain spinal stenosis Depressive disorder ([facility]) Diabetes mellitus without complication ([facility]) Diabetes mellitus without mention of complication, type II or unspecified type, not stated as uncontrolled Encephalopathy 10/14/2022 Essential hypertension, benign ([facility]) Former smoker 08/15/2017 H/O being hospitalized 02/20/2020 [...] atrial pressures consistent with volume overload. Her cpilsuow-wb-lkd states there were no adjustments made to [...] Kristen William DO documented in this encounter [facility] 07-25-2024 History of Presen t illness Narrative [...] the skin 1 (one) time each day. Jsoufet-Vdxarrhzvwr-Qetnvscndv (Breztri Aerosphere) 160-9-4.8 MCG/ACT aerosol Inhale 2 [...] each day at the same time. HYDROcodone-acetaminophen (Solo) 7.5-325 MG tablet Take 1 tablet by mouth every 6 (six) hours if needed for severe pain 120 tablet 0 Lancets (OneTouch Delica Plus [id number]) [facility] USE 1 LANCET TO TEST BLOOD SUGAR [...] bladder Left thyroid nodule (CMS/HCC) Morbid obesity ([facility]) 07/04/2019 Osteoarthrosis Peripheral vascular disease, unspecified (CMS/HCC) [...] for Routine F/U. documented in this encounter [facility] 07-21-2024 History of Presen t illness Narrative [...] tablet, Rfl: 3 Blood Glucose Monitoring Suppl (TrafficLand 2) w/Device kit, Inject under the skin 1 (one) time each day., Disp: , Rfl: Vzadqxm-Zdmklgfzjba-Xzsuyjffmb (Breztri Aerosphere) 160-9-4.8 MCG/ACT aerosol, Inhale 2 [...] the same time., Disp: , Rfl: HYDROcodone-acetaminophen (Solo) 7.5-325 MG tablet, Take 1 tablet by mouth every 6 (six) hours if needed for severe pain, Disp: 120 tablet, Rfl: 0 Lancets (OneTouch Delica Plus [id number]) [facility], USE 1 LANCET TO TEST BLOOD SUGAR [...] min Stress: No Stress Concern Present (11/12/2022) [employer] [place] [employer] - Occupational Stress Questionnaire Feeling of Stress : Not at all Social Connections: Moderately Isolated (11/12/2022) Social Connection and Isolation Panel [NHANES] Frequency of Communication with Friends and Family: More than three times a week Frequency of Social Gatherings with Friends and Family: Once a week Attends Islam Services: Never Active Member of Clubs or [...] and negative PT pedal pulses NEURO: 5.07 [place] Arturo monofilament test intact to digits and forefoot bilaterally 125Hz tuning fork diminished to 1st MPJ bilaterally ORTHO: Positive pain on palpation to toenails of the left 1,2,3,4,5 toes and right 1,2,3,4,5 toes ASSESSMENT 1. Type 2 diabetes mellitus with diabetic neuropathy, without long-term current use of insulin ([facility]) 2. Pain due to onychomycosis of toenails [...] Alessandro Levi DPM documented in this encounter [facility] 07-12-2024 History of Presen t illness Narrative Subjective Patient ID: Jaquelin Norwood is a 84 y.o. female who presents for Thyroid Nodule (1 year follow up ultrasound [facility]) Thyroid US shows a 14mm LT nodule. Stable to smaller compared to 6 years ago Family History Problem Relation Name Age of Onset Heart failure Mother Diabetes Mother Cancer Mother Cancer Father Active Ambulatory Problems Diagnosis Date Noted Acquired hypothyroidism ([facility]) 11/04/2022 Ataxic gait 11/04/2022 Bilateral carotid artery stenosis 11/04/2022 Cardiomyopathy ([facility]) 11/04/2022 Chronic allergic rhinitis 11/04/2022 Chronic combined systolic and diastolic congestive heart failure ([facility]) 11/04/2022 Chronic constipation 11/04/2022 Coronary artery disease (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) 11/04/2022 Essential hypertension ([facility]) 11/04/2022 Extrapyramidal symptom 11/04/2022 Exudative age-related macular degeneration ([facility]) 11/04/2022 Gastroesophageal reflux disease 11/04/2022 Hypertensive heart disease with congestive heart failure and chronic kidney disease ([facility]) 11/04/2022 LVH (left ventricular hypertrophy) 11/04/2022 Mild cognitive impairment 11/04/2022 Mixed hyperlipidemia ([facility]) 11/04/2022 Moderate recurrent major depression ([facility]) 11/04/2022 Multinodular goiter ([facility]) 11/04/2022 Neuropathy 11/04/2022 Nontoxic single thyroid nodule ([facility]) 11/04/2022 OAB (overactive bladder) 11/04/2022 Obesity (BMI 30-39.9) 11/04/2022 Peripheral vascular disease ([facility]) 11/04/2022 Polyosteoarthritis 11/04/2022 Primary osteoarthritis of left knee 11/04/2022 Primary osteoarthritis of right knee 11/04/2022 Chronic obstructive pulmonary disease ([facility] 11/04/2022 Pulmonary emphysema ([facility]) 11/04/2022 Type 2 diabetes mellitus with diabetic neuropathy, without long-term current use of insulin ([facility]) 11/04/2022 Ataxia 10/23/2017 Diabetic peripheral neuropathy associated with type 2 diabetes mellitus ([facility]) 02/23/2019 Acute on chronic diastolic heart failure ([facility]) 03/14/2020 Cardiomegaly 04/30/2015 Abnormality of rectum 08/10/2023 Sore throat 10/26/2023 Symptomatic cholelithiasis 01/20/2024 Resolved Ambulatory Problems Diagnosis Date Noted Former smoker 08/15/2017 Morbid obesity ([facility]) 07/04/2019 Chronic combined systolic and diastolic heart failure ([facility]) 04/30/2015 Acute exacerbation of chronic obstructive pulmonary disease ([facility]) 07/16/2016 Past Medical History: Diagnosis Date Anxiety state ([facility] Chronic airway obstruction ([facility]) Chronic back pain Depressive disorder ([facility] Diabetes mellitus without complication ([facility]) Encephalopathy 10/14/2022 Essential hypertension, benign ([facility]) H/O being hospitalized 02/20/2020 History of echocardiogram 02/21/2020 Hyperlipidemia, unspecified (CMS/HCC) Hypertonicity of bladder Left thyroid nodule (CMS/HCC) Osteoarthrosis Peripheral vascular disease, unspecified (CMS/HCC) Unspecified [...] the skin 1 (one) time each day. Sskydxp-Cmpecxvuomj-Obftketkwt (Breztri Aerosphere) 160-9-4.8 MCG/ACT aerosol Inhale 2 [...] each day at the same time. HYDROcodone-acetaminophen (Solo) 7.5-325 MG tablet Take 1 tablet by mouth every 6 (six) hours if needed for severe pain 120 tablet 0 Lancets ([employer] DelAtara Biotherapeutics Plus [id number]) [facility] USE 1 LANCET TO TEST BLOOD SUGAR [...] years. Recheck prn documented in this encounter [facility] 07-04-2024 Telephone encount er Note ,OARRS reviewed, Rx sent into patient's pharmacy. [facility] 07-04-2024 Miscellaneous Notes Formattin g of this note might be different from the original. ,OARRS reviewed, Rx sent into patient's pharmacy. Last OV 05-31-24 Last RF 06-01-24 documented in this encounter [facility] 07-04-2024 Telephone encount er Note Last OV 05-31-24 Last RF 06-01-24 [facility] 06-10-2024 History of Presen t illness Narrative [...] 90 tablet 3 Blood Glucose Monitoring Suppl (The Invisible Armor ULTRA 2) w/Device kit Inject under the skin 1 (one) time each day. Fjgagqc-Ybmpwozxirh-Eoudzkqzvm (Breztri Aerosphere) 160-9-4.8 MCG/ACT aerosol Inhale 2 [...] each day at the same time. HYDROcodone-acetaminophen (Solo) 7.5-325 MG tablet Take 1 tablet by mouth every 6 (six) hours if needed for severe pain 120 tablet 0 Lancets (OneTouch Delica Plus [id number]) [facility] USE 1 LANCET TO TEST BLOOD SUGAR [...] Past Medical History: Diagnosis Date Acquired hypothyroidism ([facility]) Acute exacerbation of chronic obstructive pulmonary disease ([facility]) 07/16/2016 Anxiety state ([facility]) Cardiomegaly Chronic airway obstruction ([facility]) Chronic back pain spinal stenosis Depressive disorder ([facility] Diabetes mellitus without complication ([facility]) Diabetes mellitus without mention of complication, type II or unspecified type, not stated as uncontrolled Encephalopathy 10/14/2022 Essential hypertension, benign ([facility]) Former smoker 08/15/2017 H/O being hospitalized 02/20/2020 Resp. Distress, Hypoxia, JONE, LLL Pneumonia, Sepsis History of echocardiogram 02/21/2020 ECHO EF 65-70% Lt [facility] Severely Dilated (02/21/2020) Hyperlipidemia, unspecified ([facility]) Hypertonicity of bladder Left thyroid nodule ([facility] Morbid obesity ([facility]) 07/04/2019 Osteoarthrosis Peripheral vascular disease, unspecified ([facility]) Unspecified combined systolic (congestive) and diastolic (congestive) heart failure ([facility]) Past Surgical History: Procedure Laterality Date BACK [...] F/U med changes. documented in this encounter [facility] 06-01-2024 Telephone encount er Note Meds sent. [facility] 06-01-2024 Miscellaneous Notes Formattin g of this note might be different from the original. Meds sent. OARRS reviewed, Unable to send meds, will try again later. documented in this encounter [facility] 06-01-2024 Telephone encount er Note OARRS reviewed, Unable to send meds, will try again later. [facility] 05-16-2024 History of Presen t illness Narrative Images from the original note were not included. HPI Results Additional comments: PFT Echo has not been done yet--pending ins approval Med Refill Additional comments: Radha --ninoska thomas Last edited by Kimberly Sanchez LPN on 05/16/2024 1:19 PM. Subjective Patient ID: Jaquelin Norwood is a 84 y.o. female who presents for Results (PFT/Echo has not been done yet--pending ins approval), Emphysema, and Med Refill (Zofran --ninoska thomas). Diabetes Mellitus Patient presents for [...] the skin 1 (one) time each day. Hjqnrad-Zstmgwylzpe-Tfbxlumpvw (Breztri Aerosphere) 160-9-4.8 MCG/ACT aerosol Inhale 2 [...] each day at the same time. HYDROcodone-acetaminophen (Solo) 7.5-325 MG tablet Take 1 tablet by mouth every 6 (six) hours if needed for severe pain 120 tablet 0 Lancets (RegaaloTouch Delica Plus [id number]) [facility] USE 1 LANCET TO TEST BLOOD SUGAR [...] Past Medical History: Diagnosis Date Acquired hypothyroidism ([facility] Acute exacerbation of chronic obstructive pulmonary disease ([facility]) 07/16/2016 Anxiety state ([facility]) Cardiomegaly Chronic airway obstruction (CMS/HCC) Chronic back pain spinal stenosis Depressive disorder ([facility]) Diabetes mellitus without complication ([facility]) Diabetes mellitus without mention of complication, type II or unspecified type, not stated as uncontrolled Encephalopathy 10/14/2022 Essential hypertension, benign ([facility]) Former smoker 08/15/2017 H/O being hospitalized 02/20/2020 Resp. Distress, Hypoxia, JONE, LLL Pneumonia, Sepsis History of echocardiogram 02/21/2020 ECHO EF 65-70% [facility] Severely Dilated (02/21/2020) Hyperlipidemia, unspecified (CMS/HCC) Hypertonicity of bladder Left thyroid nodule (CMS/HCC) Morbid obesity ([facility]) 07/04/2019 Osteoarthrosis Peripheral vascular disease, unspecified (CMS/HCC) [...] for Test/Lab Review. documented in this encounter [facility] 05-02-2024 History of Presen t illness Narrative [...] each day at the same time. Lancets ([employer] DelAtara [employer]othe[employer] Plus [id number]) [facility] USE 1 LANCET TO TEST BLOOD SUGAR [...] for anxiety 60 tablet 0 [DISCONTINUED] HYDROcodone-acetaminophen (Solo) 7.5-325 MG tablet Take 1 tablet by [...] Past Medical History: Diagnosis Date Acquired hypothyroidism ([facility] Acute exacerbation of chronic obstructive pulmonary disease ([facility]) 07/16/2016 Anxiety state ([facility] Cardiomegaly Chronic airway obstruction ([facility]) Chronic back pain spinal stenosis Depressive disorder ([facility] Diabetes mellitus without complication ([facility]) Diabetes mellitus without mention of complication, type II or unspecified type, not stated as uncontrolled Encephalopathy 10/14/2022 Essential hypertension, benign ([facility]) Former smoker 08/15/2017 H/O being hospitalized 02/20/2020 Resp. Distress, Hypoxia, JONE, LLL Pneumonia, Sepsis History of echocardiogram 02/21/2020 ECHO EF 65-70% [facility] Severely Dilated (02/21/2020) Hyperlipidemia, unspecified ([facility]) Hypertonicity of bladder Left thyroid nodule ([facility] Morbid obesity ([facility]) 07/04/2019 Osteoarthrosis Peripheral vascular disease, unspecified ([facility]) Unspecified combined systolic (congestive) and diastolic (congestive) heart failure ([facility]) Past Surgical History: Procedure Laterality Date BACK [...] neuropathy, without long-term current use of insulin ([facility]) - POCT Glycated hemoglobin, total Degenerative lumbar spinal stenosis - HYDROcodone-acetaminophen (Solo) 7.5-325 MG tablet; Take 1 tablet by [...] combined systolic and diastolic congestive heart failure ([facility]) - Echocardiogram 2D complete Panlobular emphysema ([facility]) - Pulmonary Function Test - Uwcmpxb-Obnwrgqokqo-Tcbbjmyhdu (Breztri Aerosphere) 160-9-4.8 MCG/ACT aerosol; Inhale 2 puffs in the morning and 2 puffs before bedtime. Symptomatic cholelithiasis - May need removal, but not medically stable for surgery at present Follow up in about 2 weeks (around 05/16/2024) for Test/Lab Review, F/U med changes. documented in this encounter [facility] 04-28-2024 History of Presen t illness Narrative [...] Past Medical History: Diagnosis Date Acquired hypothyroidism ([facility]) Acute exacerbation of chronic obstructive pulmonary disease ([facility] 07/16/2016 Anxiety state ([facility]) Cardiomegaly Chronic airway obstruction ([facility]) Chronic back pain spinal stenosis Depressive disorder ([facility]) Diabetes mellitus without complication ([facility]) Diabetes mellitus without mention of complication, type II or unspecified type, not stated as uncontrolled Encephalopathy 10/14/2022 Essential hypertension, benign ([facility]) Former smoker 08/15/2017 H/O being hospitalized 02/20/2020 Resp. Distress, Hypoxia, JONE, LLL Pneumonia, Sepsis History of echocardiogram 02/21/2020 ECHO EF 65-70% [facility] Severely Dilated (02/21/2020) Hyperlipidemia, unspecified ([facility]) Hypertonicity of bladder Left thyroid nodule ([facility]) Morbid obesity ([facility]) 07/04/2019 Osteoarthrosis Peripheral vascular disease, unspecified ([facility]) Unspecified combined systolic (congestive) and diastolic (congestive) heart failure ([facility]) Medications: Current Outpatient Medications: albuterol (2.5 MG/3ML) [...] the same time., Disp: , Rfl: HYDROcodone-acetaminophen (Solo) 7.5-325 MG tablet, Take 1 tablet by mouth every 6 (six) hours if needed for severe pain, Disp: 120 tablet, Rfl: 0 Lancets (OneTouch Delica Plus [id number]) [facility], USE 1 LANCET TO TEST BLOOD SUGAR [...] min Stress: No Stress Concern Present (11/12/2022) [employer] [place] [employer] - Occupational Stress Questionnaire Feeling of Stress : Not at all Social Connections: Moderately Isolated (11/12/2022) Social Connection and Isolation Panel [NHANES] Frequency of Communication with Friends and Family: More than three times a week Frequency of Social Gatherings with Friends and Family: Once a week Attends Islam Services: Never Active Member of Clubs or [...] and negative PT pedal pulses NEURO: 5.07 [place] Arturo monofilament test intact to digits and forefoot bilaterally 125Hz tuning fork diminished to 1st MPJ bilaterally ORTHO: Positive pain on palpation to nails 1 through 10 ASSESSMENT 1. Type 2 diabetes mellitus with diabetic neuropathy, without long-term current use of insulin ([facility]) 2. Pain due to onychomycosis of toenails [...] Alessandro Levi DPM documented in this encounter [facility] 03-30-2024 Telephone encount er Note OARRS reviewed, Rx sent into patient's pharmacy. [facility] 03-30-2024 Miscellaneous Notes Formattin g of this note might be different from the original. OARRS reviewed, Rx sent into patient's pharmacy. documented in this encounter [facility] 03-08-2024 Evaluation + Plan note Extrac marisel from: Title:ANES Post-operative Note---General Author: Luciano Grace MD. Date:03/08/24 Plan Transfer/Discharge: Transfer/Discharge Discharge when meets criteria ( To home ). Extracted from: Title:ANES Pre-operative Note 2022 Author:Luciano López. Date:03/08/24 Plan [place] [employer] (ASA) physical status classification: Class IV. Anesthetic Preoperative Plan: Anesthesia Monitored anethesia care. [facility] 09-17-2024 NoteProgress Note-Physician Patient: JAQUELIN NORWOOD Age: 83 years Sex: Female : 1940 Associated Diagnoses: None Author: Luciano Grace MD Postoperative Information Postoperative disposition: Postoperative disposition: To PACU. Optimetrix number: Optimetrix number [id number]. Anesthetic utilized: General. Health Status Allergies: Allergic [...] Discharge when meets criteria ( To home ).[facility]Result Comment: Electronically Signed By: Sanjay VALDEZ, Luciano Leonard\.br\Date and Time Signed: 03/08/24 13:29 EDT 03-08-2024 Hospital Discharge instructions Patient Education 03/08/2024 10:37:00 Colonoscopy, Care After Surgery Salam (CUSTOM) Colonoscopy Care After Surgery Please read the instructions outlined below and refer to this sheet in the next few weeks. These discharge instructions provide you with general information on [facility] Your doctor may also give you specific [...] hard liquor (44 mL). General instructions Take ekgk-tmv-yesuqay and prescription medicines only as told by [...] provider. Document Revised: 09/26/2020 Document Reviewed: 09/26/2020 [employer] Patient Education 2023 [employer]. 03/08/2024 10:36:48 Diverticulosis Diverticulosis Diverticulosis is when [...] get enough exercise. You smoke. You take mgcq-jup-evuymmx pain medicines. You have a family history [...] Follow these instructions at home: Medicines Take swgg-yap-dpuxfjf and prescription medicines only as told by your provider. If told, take a fiber supplement or probiotic. Managing constipation Your condition may cause constipation. To prevent or treat constipation, you may need to: Drink enough fluid to keep your pee (urine) pale yellow. Take nuhk-nah-yrrabka or prescription medicines. Eat foods that are [...] provider. Document Revised: 03/05/2023 Document Reviewed: 03/05/2023 [employer] Patient Education 2023 [employer]. 03/08/2024 10:36:44 Hemorrhoids, Otnm-sg-Dzvn Hemorrhoids Hemorrhoids are swollen veins that may [...] Follow these instructions at home: Medicines Take kefd-jag-xzbnook and prescription medicines only as told by [...] provider. Document Revised: 02/18/2023 Document Reviewed: 02/18/2023 [employer] Patient Education 2023 [employer]. Follow Up Care 02/16/2024 14:51:06 With:Amaris VALDEZ, WILBERTO Jean-Baptiste, [facility] Address: [address] [place] [address], [address] [place] [address]- [phone] When: Unknown Comments:Office will call to schedule follow up appointment and/or review any pending biopsy resultsCall forany problems. [facility] 09-17-2024 NotePatient Education - Text Colonoscopy Care After Surgery Please read the instructions outlined below and refer to this sheet in the next few weeks. These discharge instructions provide you with general information on caring for [facility]. Your doctor may also give you specific [...] exercise. ? You smoke. ? You take gyqi-mmb-spimior pain medicines. ? You have a family [...] these instructions at home: Medicines ? Take ubkw-kcq-ywdtvbm and prescription medicines only as told by your provider. ? If told, take a fiber supplement or probiotic. Managing constipation Your condition may cause constipation. To prevent or treat constipation, you may need to: ? Drink enough fluid to keep your pee (urine) pale yellow. ? Take vmnd-boh-gmonpsi or prescription medicines. ? Eat foods that [...] care provider. Document Lise (more content not included)...[facility] 03-08-2024 NoteProgress Note-Physician Patient: JAQUELIN NORWOOD Age: [...] CT of the abdomen / SNOMED CT 2444923317 / Confirmed Cholelithiasis / SNOMED CT 831178988 / Confirmed Esophageal dysmotility / SNOMED CT 029408925 / Confirmed Esophageal dysphagia / SNOMED CT 09419341 / Confirmed History of gastric surgery / SNOMED CT 6478929381 / Confirmed, Active Problems (5) Abnormal CT of the abdomen Cholelithiasis Esophageal dysmotility Esophageal dysphagia History of gastric surgery Histories Past Medical History: No active or resolved past medical history items have been selected or recorded. Family History: Heart disease Mother Diabetes mellitus type 2 Mother Cancer Father Mother Procedure history: Sigmoidoscopy ([id number]) on 03/08/2024 at 83 Years. EGD - esophagogastroduodenoscopy ([id number]) on 02/03/2024 at 83 Years. Colonoscopy ([id number]) on 02/03/2024 at 83 Years. Social History Social & Psychosocial Habits Tobacco 12/21/2023 Tobacco Use: Former smoker, quit more . Physical Examination Vital Signs 03/08/2024 8:46 EDT Temperature Temporal Artery 36.7 DegC Heart Rate Monitored 88 bpm Respiratory Rate 2 (more content not included)...[facility] Comment on above:Result Comment: Electronically Signed By: Sanjay VALDEZ, Luciano Leonard\.br\Date and Time Signed: 03/08/24 10:10 [id number] History of Present illness Narrative* Alessandro Levi, ZAYNAB - 02/18/2024 1:20 PM EDT Patient: Jaquelin [...] Anxiety state (CMS/HCC) Cardiomegaly Chronic airway obstruction ([facility]) Chronic back pain spinal stenosis Depressive disorder ([facility]) Diabetes mellitus without complication ([facility]) Diabetes mellitus without mention of complication, type II or unspecified type, not stated as uncontrolled Encephalopathy 10/14/2022 Essential hypertension, benign ([facility]) Former smoker 08/15/2017 H/O being hospitalized 02/20/2020 Resp. Distress, Hypoxia, JONE, LLL Pneumonia, Sepsis History of echocardiogram 02/21/2020 ECHO EF 65-70% [facility] Severely Dilated (02/21/2020) Hyperlipidemia, unspecified ([facility]) Hypertonicity of bladder Left thyroid nodule ([facility]) Morbid obesity ([facility] 07/04/2019 Osteoarthrosis Peripheral vascular disease, unspecified ([facility]) Unspecified combined systolic (congestive) and diastolic (congestive) heart failure ([facility]) Medications: Current Outpatient Medications: albuterol (2.5 MG/3ML) [...] the same time., Disp: , Rfl: HYDROcodone-acetaminophen (Solo) 7.5-325 MG tablet, Take 1 tablet by mouth every 6 (six) hours if needed for severe pain, Disp: 120 tablet, Rfl: 0 Lancets (RegaaloTouch Delica Plus Alaklu51T) [facility], USE 1 LANCET TO TEST BLOOD SUGAR [...] min Stress: No Stress Concern Present (11/12/2022) [employer] [place] [employer] - Occupational Stress Questionnaire Feeling of Stress : Not at all Social Connections: Moderately Isolated (11/12/2022) Social Connection and Isolation Panel [NHANES] Frequency of Communication with Friends and Family: More than three times a week Frequency of Social Gatherings with Friends and Family: Once a week Attends Islam Services: Never Active Member of Clubs or [...] and negative PT pedal pulses NEURO: 5.07 [place] Arturo monofilament test intact to digits and forefoot bilaterally 125Hz tuning fork diminished to 1st MPJ bilaterally ORTHO: Positive pain on palpation to nails 1 through 10 ASSESSMENT 1. Onychomycosis 2. Thickened nail 3. Type 2 diabetes mellitus with diabetic neuropathy, without long-term current use of insulin ([facility]) 4. Toe pain, bilateral 5. Venous insufficiency [...] activities. Alessandro Levi DPM [id number] Evaluation + Plan note Extracted from: Title:ANES [...] bulb. otherwise, normal duodenum. Images Procedure images: Rec1_hd_video_2023__[id number]__[id number].jpg Rec1_hd_video_2023__[id number]__[id number].jpg Rec1_hd_video_2023__[id number].jpg Rec1_hd_video_2023__14T09__55_948.jpg Rec1_hd_video_2023__[id number]__13_[id number].jpg Rec1_hd_video_2023__[id number]__[id number].jpg Rec1_hd_video_2023__14T09_[id number].jpg Rec1_hd_video_2023__[id number]_[id number].jpg Rec1_hd_video_2023__[id number]_[id number].jpg Rec1_hd_video__14T09_[id number].jpg Rec1_hd_video__14T09_[id number]_02_[id number].jpg Rec1_hd_video__14T09_[id number]_161.jpg . Post-Procedure Complications: none. Estimated blood loss: none. Specimens: None. Devices/ implants: none left in place. Impression and Plan Schatzki's ring and esophageal stricture status post dilation Gastropathy Duodenitis Recommendations: -Liquid then soft diet today, advance as tolerated tomorrow -Resume home medications -Await pathology results, follow in GI clinic in 1-2 after discharge for Addendum by Amaris VALDEZ, Jones Red on February 03, 2024 10:30 EDT Increase omeprazole to twice a day Extracted from: Title:Nicholas Sanchez PRE Author:Bruce Peterson DO Date:02/03/24 Plan [employer] [employer] (ASA) physical status classification: Class II. Anesthetic Preoperative Plan: Anesthesia General. [facility] 08-14-2024 Hospital Discharge instructions Patient Education 02/03/2024 [...] including vitamins, herbs, eye drops, creams, and ocri-gws-ejhvavz medicines. Any problems you or family members [...] provider tells you to take them. ?Taking uxqg-xjz-gqddane medicines, vitamins, herbs, and supplements. Follow instructions [...] home. Follow these instructions at home: Take pxdu-vuu-buqdzwm and prescription medicines only as told by [...] provider. Document Revised: 10/24/2020 Document Reviewed: 10/24/2020 [employer] Patient Education 2022 [employer]. Follow Up Care 12/21/2023 14:19:00 With:Amaris VALDEZ, Mandi Red, [facility], [facility] Address: [address] [place] [address], [facility] [address] [place] [address]- [phone] When: Unknown Comments:Office will call Date and Time of Follow-up Appt. [facility] 08-14-2024 NoteProgress Note-Physician Patient: JAQUELIN NORWOOD Age: [...] CT of the abdomen / SNOMED CT 2999458790 / Confirmed Cholelithiasis / SNOMED CT 767279724 / Confirmed Esophageal dysmotility / SNOMED CT 389993210 / Confirmed Esophageal dysphagia / SNOMED CT 29640679 / Confirmed History of gastric surgery / SNOMED CT 7665940161 / Confirmed Physical Examination Vital Signs 02/03/2024 [...] mmHg Diastolic Blood Pres (more content not included)...[facility] Comment on above:Result Comment: Electronically Signed By: Tiago Peterson DO\.br\Date and Time Signed: 02/03/24 10:46 [id number] NotePatient Education - Text Gastroenterology Esophageal Dilatation [...] including vitamins, herbs, eye drops, creams, and fysc-ljl-hgvrutw medicines. ? Any problems you or family [...] tells you to take them. ? Taking jcay-cew-bzhhvkc medicines, vitamins, herbs, and supplements. ? Follow [...] Follow these instructions at home: ? Take wdhr-nav-tdwtagi and prescription medicines only as told by [...] this procedure, a nu (more content not included)...[facility]2024 NoteProgress Note-Physician Patient: JAQUELIN NORWOOD Age: 83 [...] CT of the abdomen / SNOMED CT 6315864671 / Confirmed Cholelithiasis / SNOMED CT 082834324 / Confirmed Esophageal dysmotility / SNOMED CT 106159561 / Confirmed Esophageal dysphagia / SNOMED CT 67363953 / Confirmed History of gastric surgery / SNOMED CT 5085231157 / Confirmed, Active Problems (5) Abnormal CT [...] br/min Systolic Blood P (more content not included)...[facility] Comment on above:Result Comment: Electronically Signed By: Tiago Peterson DO\.br\Date and Time Signed: 02/03/24 09:23 [id number] Telephone encounter Note* Telephone Encounter - PHILIP Magallanes - 07/27/2023 8:00 AM EST sent [facility] [id number] Miscellaneous Notes* Telephone Encounter - PHILIP Magallanes - 07/27/2023 8:00 AM EST sent [id number] History of Present illness Narrative* Patient is [...] her back in 3 to 4 months [facility] Work Phone: 1(378) 677-688604-26-2021 History of Present illness Narrative* Patient is [...] her back in 3 to 4 months [facility] [place] [facility] [address] DO Work Phone: Evaluation + Plan note Future Appointments Appointment Date:01/11/2024 09:30:00 AM Scheduled Provider: Location:[facility] Appointment Type:Surgery FT [facility] Evaluation note* Diagnosis Essential hypertension [...] long-term current use of insulin (CMS/HCC)- Primary Degenerative lumbar spinal stenosis Spinal stenosis of lumbar region Allergic rhinitis, unspecified Depression with anxiety Dysthymic disorder 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) Panlobular emphysema (CMS/HCC) Other emphysema Symptomatic cholelithiasis [facility] Diagnosis Panlobular emphysema (CMS/HCC)- Primary Other emphysema 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) Symptomatic cholelithiasis [facility]* Diagnosis Degenerative lumbar spinal stenosis Spinal stenosis of lumbar region Depression with anxiety Dysthymic disorder documented [facility]* Diagnosis Venous insufficiency- Primary Unspecified venous (peripheral) insufficiency Thickened nail Type 2 diabetes mellitus with diabetic neuropathy, without long-term current use of insulin (CMS/HCC) Onychomycosis Dermatophytosis of nail Toe pain, bilateral [facility]* Diagnosis Depression with anxiety Dysthymic disorder Degenerative lumbar spinal stenosis Spinal stenosis of lumbar region documented [facility]* Diagnosis Panlobular emphysema (CMS/HCC)- Primary Other emphysema COPD with acute exacerbation (CMS/HCC) Acute cystitis without hematuria Symptomatic cholelithiasis 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) Depression with anxiety Dysthymic disorder documented in [...] HealthcareEvaluation note* Diagnosis Nontoxic single thyroid nodule (CMS/HCC)- Primary Nontoxic uninodular goiter [facility]* Diagnosis Type 2 diabetes mellitus with diabetic neuropathy, without long-term current use of insulin (CMS/HCC)- Primary Pain due to onychomycosis of toenails of both feet Venous insufficiency Unspecified venous (peripheral) insufficiency [facility]* Diagnosis Panlobular emphysema (CMS/HCC)- Primary Other emphysema Moderate recurrent major depression (CMS/HCC) Major depressive disorder, recurrent episode, moderate Depression with anxiety Dysthymic disorder Exudative age-related macular degeneration, unspecified eye, stage unspecified (CMS/HCC) 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) documented [facility]* Diagnosis Hypersomnolence- Primary Hypersomnia, unspecified Panlobular emphysema (CMS/HCC) Other emphysema documented [facility]* Diagnosis Nausea Nausea alone [facility]* Diagnosis Degenerative lumbar spinal stenosis Spinal stenosis of lumbar region Depression with anxiety Dysthymic disorder documented in this encounter [facility] noteNo assessment information availableU[facility] Work Phone: Evaluation note* Diagnosis 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)- Primary documented in this encounter [facility]* Diagnosis Community acquired pneumonia, unspecified laterality- Primary Hyponatremia Hyposmolality and/or hyponatremia Panlobular emphysema (CMS/HCC) Other emphysema Nausea Nausea alone Gastroesophageal reflux disease without esophagitis Esophageal reflux 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) Type 2 diabetes mellitus with diabetic neuropathy, without long-term current use of insulin ([facility])- Primary Pain due to onychomycosis of toenails of both feet Venous insufficiency Unspecified venous (peripheral) insufficiency documented in this encounter [facility] HealthcareHistory of [...] 6. We will repeat her carotid Doppler -[facility] DO Work Phone: History of [...] 6. We will repeat her carotid Doppler [facility] Work Phone: Hospital course Narrative No data available for this section [facility] Hospital Discharge instructions No data available for this section [facility] Progress note No data available for this section [facility] Chief Complaint * overdue. * JAQUELIN SALAZARRUBA is being seen for an annual follow-up of. * overdue. * JAQUELIN SALAZARRUBA is being seen for an annual follow-up of. JAQUELIN NORWOOD is being seen for a 4 month follow-up of.JAQUELIN NORWOOD is being seen for a 4 month follow-up of. Family History Unknown Family Member Name Dates [...] history of malignant neoplasm: Father(V16.9, Z80.9) Status:Active Relationship Condition Age at Onset Recorded Date/T karly brother Unknown father Unknown Malignant neoplasm Unknown mother Unknown Diabetes mellitus Unknown Heart disease Unknown sister Unknown Summary Purpose Advance Directives Advance Directive Response Recorded Date/ Time Advance Directives No April 20, 2018 1:48pm Additional Source Comments INFORMATION SOURCE (unrecogn ized section and content) DATE CREATED AUTHOR 02/27/2022 [employer] DATE CREATED AUTHOR AUTHOR'S ORGANIZ ATION 04/15/2022 [facility] DATE CREATED AUTHOR AUTHOR'S ORGANIZ ATION 10/25/2022 [facility] DATE CREATED AUTHOR AUTHOR'S ORGANIZ ATION 02/06/2024 [facility] DATE CREATED AUTHOR AUTHOR'S ORGANIZ ATION 02/07/2024 [facility] DATE CREATED AUTHOR AUTHOR'S ORGANIZ ATION 03/04/2024 [facility] DATE CREATED AUTHOR AUTHOR'S ORGANIZ ATION 03/09/2024 [facility] DATE CREATED AUTHOR AUTHOR'S ORGANIZ ATION 03/13/2024 [facility] DATE CREATED AUTHOR AUTHOR'S ORGANIZ ATION 03/14/2024 [facility] DATE CREATED AUTHOR AUTHOR'S ORGANIZ ATION 08/17/2024 [facility] DATE CREATED AUTHOR AUTHOR'S ORGANIZ ATION 09/15/2024 [facility] EPIC Reason for Visit (unrecogniz [...] Nails Specialty Diagnoses / Procedures Referred By Akira handley Referred To Contact Podiatry Diagnoses Thickened nail Type 2 diabetes mellitus with diabetic neuropathy, without long-term current use of insulin ([facility]) Procedures DC OFFICE/OUTPATIENT NEW HIGH MDM 60 MINUTES Salud Mason PA [address] [facility] [address] [place] [address] Alessandro Levi DPM [address] [place] [address] Referral ID Status Reason Start Date Expiration Date V isits Requested Visits Authorized [id number] Closed Specialty Services Required 01/28/2024 07/26/2024 1 [...] Pulmonary Disease / Pulmonology Diagnoses Panlobular emphysema (CMS/HCC) Procedures DC OFFICE/OUTPATIENT [facility] Yossi Landers MD [address] [place] [address] Phone: tel: fax: Kristen William, DO [address] [place] [address] Phone: tel: fax: Referral ID Status Reason Start Date Expiration Date V isits Requested Visits Authorized [id number] Closed Specialty Services Required 05/16/2024 11/12/2024 1 1 Reason Onset Date Comments Med Refill 08/06/2024 Reason Comments Congestive Heart Failure Anxiety Reason Comments Med Refill Albuterol for nebuli zer Care Teams (unrecognized sec tion and content) Message And Delivery Service Pricer Relationship Specialty Start Date End Date Yossi Landers MD [address] [place] [address] PCP - General Internal Medicine 11/03/22 Yossi Landers MD [address] [place] [address] PCP - [employer] 11/20/22 Message And Delivery Service Pricer Relationship Specialty Start Date End Date Yossi Landers MD [address] [place] [address] PCP - General Internal Medicine 11/03/22 Yossi Landers MD [address] [place] [address] PCP - [employer] 11/20/22 Message And Delivery Service Pricer Relationship Specialty Start Date End Date Yossi Landers MD [address] [place] [address] PCP - General Internal Medicine 11/03/22 Yossi Landers MD [address] [place] [address] PCP - [employer] 11/20/22 Message And Delivery Service Pricer Relationship Specialty Start Date End Date Yossi Landers MD [address] [place] [address] PCP - General Internal Medicine 11/03/22 Yossi Landers MD [address] [place] [address] PCP - [employer] 11/20/22 Message And Delivery Service Pricer Relationship Specialty Start Date End Date Yossi Landers MD [address] [place] [address] PCP - General Internal Medicine 11/03/22 Yossi Landers MD [address] [place] [address] PCP - [employer] 11/20/22 Message And Delivery Service Pricer Relationship Specialty Start Date End Date Yossi Landers MD [address] [place] [address] PCP - General Internal Medicine 11/03/22 Yossi Landers MD [address] [place] [address] PCP - [employer] 11/20/22 Message And Delivery Service Pricer Relationship Specialty Start Date End Date Yossi Landers MD [address] [place] [address] PCP - General Internal Medicine 11/03/22 Yossi Landers MD [address] [place] [address] PCP - [employer] 11/20/22 Message And Delivery Service Pricer Relationship Specialty Start Date End Date Yossi Landers MD [address] [place] [address] PCP - General Internal Medicine 11/03/22 Yossi Landers MD [address] [place] [address] PCP - [employer] 11/20/22 Message And Delivery Service Pricer Relationship Specialty Start Date End Date Yossi Landers MD [address] [place] [address] PCP - General Internal Medicine 11/03/22 Yossi Landers MD [address] [place] [address] PCP - [employer] 11/20/22 Message And Delivery Service Pricer Relationship Specialty Start Date End Date Yossi Landers MD [address] [place] [address] PCP - General Internal Medicine 11/03/22 Yossi Landers MD [address] [place] [address] PCP - [employer] 11/20/22 Message And Delivery Service Pricer Relationship Specialty Start Date End Date Yossi Landers MD [address] [place] [address] PCP - General Internal Medicine 11/03/22 Yossi Landers MD [address] [place] [address] PCP - [employer] 11/20/22 Message And Delivery Service Pricer Relationship Specialty Start Date End Date Yossi Landers MD [address] [place] [address] PCP - General Internal Medicine 11/03/22 Yossi Landers MD [address] [place] [address] PCP - [employer] 11/20/22 Message And Delivery Service Pricer Relationship Specialty Start Date End Date Yossi Landers MD [address] [place] [address] PCP - General Internal Medicine 11/03/22 Yossi Landers MD [address] [place] [address] PCP - [employer] 11/20/22 Message And Delivery Service Pricer Relationship Specialty Start Date End Date Yossi Landers MD [address] [place] [address] PCP - General Internal Medicine 11/03/22 Yossi Landers MD [address] [place] [address] PCP - [employer] 11/20/22 Message And Delivery Service Pricer Relationship Specialty Start Date End Date Yossi Landers MD [address] [place] [address] PCP - General Internal Medicine 11/03/22 Yossi Landers MD [address] [place] [address] PCP - [employer] 11/20/22 Message And Delivery Service Pricer Relationship Specialty Start Date End Date Yossi Landers MD [address] [place] [address] PCP - General Internal Medicine 11/03/22 Yossi Landers MD [address] [place] [address] PCP - [employer] 11/20/22 Seble Mejia, CIPRIANO [facility] 07/29/24 Message And Delivery Service Pricer Relationship Specialty Start Date End Date Yossi Landers MD [address] [place] [address] PCP - General Internal Medicine 11/03/22 Yossi Landers MD [address] [place] [address] PCP - [employer] 11/20/22 Seble Mejia, RN [facility] 07/29/24 Team Status: Active Member Role Status Dates Yossi Landers II MD Primary Care Provider Active Team Status: Inactive Member Role Status Dates Yossi Landers II MD Primary Care Provider Active Start: August 13, 2024 End: August 13, 2024 Elmer Greene DO Attending Provider Active Start: August 13, 2024 End: August 13, 2024 Message And Delivery Service Pricer Relationship Specialty Start Date End Date Yossi Landers MD [address] [place] [address] PCP - General Internal Medicine 11/03/22 Yossi Landers MD [address] [place] [address] PCP - [employer] 11/20/22 Seble Mejia, RN [facility] 07/29/24 Message And Delivery Service Pricer Relationship Specialty Start Date End Date Yossi Landers MD [address] [place] [address] PCP - General Internal Medicine 11/03/22 Yossi Landers MD [address] [place] [address] PCP - [employer] 11/20/22 Seble Mejia, RN [facility] 07/29/24 Message And Delivery Service Pricer Relationship Specialty Start Date End Date Yossi Landers MD [address] [place] [address] PCP - General Internal Medicine 11/03/22 Yossi Landers MD [address] [place] [address] PCP - [employer] 11/20/22 Daniela Alvarado LPN 09/09/24 Message And Delivery Service Pricer Relationship Specialty Start Date End Date Yossi Landers MD [address] [place] [address] PCP - General Internal Medicine 11/03/22 Yossi Landers MD [address] [place] [address] PCP - [facility] 11/20/22 Daniela Alvarado LPN 09/09/24 Message And Delivery Service Pricer Relationship Specialty Start Date End Date Yossi Landers MD [address] [place] [address] PCP - General Internal Medicine 11/03/22 Yossi Landers MD [address] [place] [address] PCP - [facility] 11/20/22 Daniela Alvarado LPN 09/09/24 Message And Delivery Service Pricer Relationship Specialty Start Date End Date Yossi Landers MD [address] [facility] [address] [place] [address] PCP - General Internal Medicine 11/03/22 Yossi Landers MD [address] [facility] [address] [place] [address] PCP - [facility] 11/20/22 Daniela Alvarado LPN 09/09/24 Goals (unrecognized section and content) Goals may be documented in a n alternate section FOR RECORDS PERTAINING TO PATIENTS WHO ARE [...] BE BASED ON THE PRIMARY CLINICAL RECORDS. [employer] [facility]. provides no warranty or guarantee of the accuracy or completeness of information in this document.
[2024-09-30 11:13] LABS: Basophils Percent Auto 0.3 % (0.2-2.0); Eosinophils Absolute Auto 0.1 10^3/uL (0.0-0.7); Eosinophils Percent Auto 0.8 % (0.9-7.0); Hematocrit 39.5 % (36.0-48.0); Hemoglobin 12.8 g/dL (12.0-16.0); Immature Granulocytes Abs Auto 0.08 10^3/uL (0.00-0.03); Immature Granulocytes Pct Auto 0.8 % (0.0-0.5); Lymphocytes Percent Auto 18.9 % (20.5-60.0); Mean Corpuscular HGB Conc 32.4 g/dL (29.9-35.2); Mean Corpuscular Hemoglobin 30.8 pg (26.7-34.0); Monocytes Absolute Auto 0.8 10^3/uL (0.3-0.8); Monocytes Percent Auto 7.2 % (1.7-12.0); Neutrophils Absolute Auto 7.6 10^3/uL (1.4-6.5); Platelet Count 216 10^3/uL (150-450); Red Blood Count 4.16 10^6/uL (4.20-5.40); Red Cell Distribution Width 13.2 % (11.0-15.0); White Blood Count 10.5 10^3/uL (4.0-11.0)
[2024-09-30 11:30] LABS: Alanine Aminotransferase 27 U/L (14-59); Albumin Globulin Ratio 1.1; Albumin Level 3.3 g/dL (3.4-5.0); Alkaline Phosphatase 85 U/L (46-116); Anion Gap 13.6; Aspartate Amino Transferase 17 U/L (15-37); BUN Creatinine Ratio 9.9; Bilirubin Direct 0.2 mg/dL (0.0-0.2); Bilirubin Total 0.8 mg/dL (0.2-1.0); Calcium 9.5 mg/dL (8.5-10.1); Carbon Dioxide 25.7 mmol/L (21.0-32.0); Chloride 103 mmol/L (98-107); Estimated GFR (African America >60 (>=60 mL/min/1.73m^2); Estimated GFR (Non-African Ame >60 (>=60 mL/min/1.73m^2); Globulin 3.1 g/dL; Glucose 112 mg/dL (74-106); Potassium 4.3 mmol/L (3.5-5.1); Sodium 138 mmol/L (136-145); Total Protein 6.4 g/dL (6.4-8.2); Troponin I High Sensitivity 10.4 pg/mL (4.0-51.3)
[2024-09-30 11:31] LABS: Amylase 25 U/L (25-115)
--- NOTE | 2024-09-30 13:07 | SWNOTE1 ---
SW called to come and speak with pt and son about rehab. SW stopped down to the ED to speak with pt and son. Pt was just here a few days ago. They both voiced that she just has not been feeling well, can't keep anything down and no bowel movement in a few days. Pt's son voiced that they are interested in rehab. Pt several times voiced that she was worried about rehab and that she would be stuck at a nursing facility forever. SW provided re-assurance to pt and son and explained what rehab was. Pt and son are aware that it would be at a nursing facility, but she would be in the rehab part. SW also let her know that if she goes to rehab and it does not go well and she does not get the care she needs, she is not help prisoner there. Pt voiced that made her feel better. Pt and son both agreeable that she has declined some and would benefit from rehab. SW provided pt with list from Medicare.gov, her and son reviewed and they would like [facility] as first choice and [facility] as second. DEVEN advised that if she does get admitted to floor SW will have to send referral to facility and they will review, if they can accept, they will submit information to insurance. We then have to wait for insurance approval or they could deny. They voiced understanding. If pt has no medical reason for admission, SW to come back down. DEVEN updated ED doctor.
--- NOTE | 2024-09-30 13:13 | SWNOTE1 ---
Referral sent to [facility]. Referral included face sheet, ED note, case management report, vitals, ED assessment, and med list.
--- NOTE | 2024-09-30 13:44 | P.HP_ITS ---
HPI H&P: HPI History of Present Illness Chief complaint: ABDOMINAL PAIN, BACK PAIN, CHEST PAIN, WEAKNESS Narrative: Patient was admitted last weekend for hyponatremia. Since that time she has been seen in the ER 2 times, last was on 09/27/24 and diagnosed with pneumonia and treated with Zpak. She is on day 3 of 5 today. She comes in today with complaints of all over pain, nausea, vomiting and constipation. CT of the abdomen showed mild constipation with persistent LLL infiltrates vs atelectasis. WBC's normal range, Cr. normal range. UA pending. Vitals stable. Patient has been very weak at home and family has been unable to care for her. Patient was admitted to he hospitalist team for further plan of care. On admission exam patient complaints of all over pain, but denies cough, shortness of breath, chest pain or fevers. Having active nausea with vomiting. Opioid HPI Opioid Management Most Recent Pain and Opioid Data: Last Pain Scale 4 09/30/24 13:16 09/30/24 Last Pain Intensity 0 09/24/24 10:11 09/24/24 Last Pain Assessment 09/30/24 13:16 Last ORT Total Score 0 09/30/24 13:08 09/30/24 Last ORT Risk Category Low Risk 09/30/24 13:08 09/30/24 Review of Systems ROS Narrative ROS: a complete review of systems were reviewed with patient and are positive as below or listed in History of Chief Complaint. General: no fever, chills, night sweats Head: no headache, trauma, visual changes, nausea or vomiting Skin: no reported rashes, itching or sores Eyes: no blurriness of vision Ears: no reported hearing loss, vertigo, earache, or tinnitus Throat: no sore throat, hoarseness, swelling of neck, or tongue pain Heart: no chest pain Lungs: no shortness of breath or cough GI: constipation, nausea and vomiting Urinary: no urinary urgency, frequency or pain Neuro: no numbness or tingling HEM: no bleeding issues or bruising ENDO: no thyroid problems Psych: no anxiety or depression [facility] Medical History (Updated 09/30/24 @ 14:47 by Leanne Morgan, DO) CAD (coronary artery disease) ?I25.10 - Atherosclerotic heart disease of [place] coronary artery without angina pectoris (ICD-10) Type 2 diabetes mellitus with hyperglycemia ?E11.65 - Type 2 diabetes mellitus with hyperglycemia (ICD-10) Degenerative lumbar spinal stenosis ?M48.061 - Spinal stenosis, lumbar region without neurogenic claudication (ICD-10) Chronic heart failure with preserved ejection fraction (HFpEF) ?I50.32 - Chronic diastolic (congestive) heart failure (ICD-10) HTN (hypertension) ?I10 - Essential (primary) hypertension (ICD-10) COPD (chronic obstructive pulmonary disease) ?J44.9 - Chronic obstructive pulmonary disease, unspecified (ICD-10) Primary osteoarthritis of right hip ?M16.11 - Unilateral primary osteoarthritis, right hip (ICD-10) Abdominal bloating ?R14.0 - Abdominal distension (gaseous) (ICD-10) Anxiety ?F41.9 - Anxiety disorder, unspecified (ICD-10) COPD exacerbation ?J44.1 - Chronic obstructive pulmonary disease with (acute) exacerbation (ICD-10) Acute costochondritis ?M94.0 - Chondrocostal junction syndrome [[place]] (ICD-10) Fall ?W19.XXXA - Unspecified fall, initial encounter (ICD-10) Contusion of rib on right side ?S20.211A - Contusion of right front wall of thorax, initial encounter (ICD- 10) Contusion of knee, left ?S80.02XA - Contusion of left knee, initial encounter (ICD-10) Constipation ?K59.00 - Constipation, unspecified (ICD-10) Chest wall pain ?R07.89 - Other chest pain (ICD-10) Abdominal pain ?R10.9 - Unspecified abdominal pain (ICD-10) No problem, feared complaint unfounded ?Z71.1 - Person with feared health complaint in whom no diagnosis is made (ICD-10) Grief reaction ?F43.21 - Adjustment disorder with depressed mood (ICD-10) Dehydration ?E86.0 - Dehydration (ICD-10) Head injury ?S09.90XA - Unspecified injury of head, initial encounter (ICD-10) COPD exacerbation ?J44.1 - Chronic obstructive pulmonary disease with (acute) exacerbation (ICD-10) Nausea ?R11.0 - Nausea (ICD-10) Hypothyroidism ?E03.9 - Hypothyroidism, unspecified (ICD-10) HLD (hyperlipidemia) ?E78.5 - Hyperlipidemia, unspecified (ICD-10) Insufficient home care support ?Z74.2 - Need for assistance at home and no other household member able to render care (ICD-10) Muscular deconditioning ?R29.898 - Other symptoms and signs involving the musculoskeletal system (ICD-10) CHF (congestive heart failure) ?I50.9 - Heart failure, unspecified (ICD-10) Surgical History H/O hysterectomy for benign disease ?Z90.710 - Acquired absence of both cervix and uterus (ICD-10) Previous back surgery ?Z98.890 - Other specified postprocedural states (ICD-10) H/O hernia repair ?Z98.890 - Other specified postprocedural states (ICD-10) ?Z87.19 - Personal history of other diseases of the digestive system (ICD-10) Family History Mother Family history of cancer Sister Family history of diabetes mellitus Social History Within the past year, how often did you have a drink containing alcohol: never Score interpretation: A score less than 3 is consistent with normal alcohol consumption. 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 Known occupational exposures/hazards: No Highest level of school completed/degree received: 7th grade In a typical week, how many times do you talk on the telephone with family, friends, or neighbors: twice per week How often do you get together with friends or relatives: twice per week How often do you attend quaker or hindu services: never Little interest or pleasure in doing things: not at all Feeling down, depressed, or hopeless: not at all Feel stressed/tense/nervous/anxious/difficulty sleeping: not at all Meds Home Medications and Allergies Home Medications ?Medication ?Instructions ?Recorded ?Confirmed ?Type alprazolam 0.25 mg tablet 0.25 mg PO BID PRN anxiety 08/02/23 09/30/24 History aspirin 81 mg chewable tablet 81 mg PO DAILY 08/02/23 09/30/24 History ([place] Chewable Low Dose Aspirin) carvedilol 12.5 mg tablet 12.5 mg PO Q12H 08/02/23 09/30/24 History duloxetine 60 mg capsule,delayed 60 mg PO DAILY 08/02/23 09/30/24 History release gabapentin 100 mg capsule 200 mg PO Q12H 08/02/23 09/30/24 History loratadine 10 mg tablet 10 mg PO Q24H 08/02/23 09/30/24 History hydrocodone 7.5 mg-acetaminophen 1 tab PO Q6H PRN severe pain 08/03/23 09/30/24 History 325 mg tablet (scale score 7-10) levothyroxine 100 mcg tablet 100 mcg PO .ACB 08/03/23 09/30/24 History lisinopril 5 mg tablet 5 mg PO DAILY 08/13/24 09/30/24 History torsemide 20 mg tablet 20 mg PO QDAY 09/20/24 09/30/24 History fluticasone fur. 100 mcg-umeclid 1 inh inhalation Q24H 09/22/24 09/30/24 History 62.5 mcg-vilant 25 mcg inhalat.powder (Trelegy Ellipta) furosemide 40 mg tablet 40 mg PO DAILY 09/22/24 09/30/24 History ondansetron HCl 4 mg tablet 4 mg PO Q8H PRN nausea and 09/24/24 09/30/24 Rx vomiting 3 days #9 tabs azithromycin 250 mg tablet See Rx Instructions PO .COMPLEX #6 09/27/24 09/30/24 Rx (Zithromax Z-Dennis) tabs famotidine 20 mg tablet 20 mg PO DAILY 09/30/24 09/30/24 History omeprazole 40 mg capsule,delayed 40 mg PO DAILY 09/30/24 09/30/24 History release Allergies Allergy/AdvReac Type Severity Reaction Status Date / Time rofecoxib (From Vioxx) Allergy Severe Unknown Verified 08/13/24 14:24 naproxen (From Aleve) Allergy Intermediate Unknown Verified 08/13/24 14:24 Exam Narrative Exam Narrative: General: Patient is alert, and oriented to person, but not place and time Skin: multiple ecchymosis over bilateral upper arms Head: atraumatic, acephalic Eyes: PERRLA, no nystagmus present, conjunctiva clear, no scleral icterus Ears: diminished gross auditory acuity Neck: no masses palpated Heart: Normal rate and rhythm, no murmurs/rubs/gallops Lungs: no audible wheezes, crackles and normal breath sounds all lung diehl Abdomen: Normal audible bowel sounds, no distension, No palpable masses, no organomegaly, no rebound/guarding/ or rigidity Musculoskeletal: +1 swelling bilateral lower extremities Neuro: CN II-X grossly intact Constitutional Vital Signs, click to edit/add: Last Vital Signs Temp 98.4 F 09/30/24 13:08 Pulse 75 09/30/24 13:08 Resp 18 09/30/24 13:08 BP 169/82 H 09/30/24 13:08 Pulse Ox 97 09/30/24 13:08 O2 Del Method Room Air 09/30/24 13:08 Results Labs Labs: Short CBC 09/30/24 Range/Units 10:46 WBC 10.5 (4.0-11.0) 10^3/uL Hgb 12.8 (12.0-16.0) g/dL Hct 39.5 (36.0-48.0) % Plt Count 216 (150-450) 10^3/uL BMP 09/30/24 10:46 Sodium 138 Potassium 4.3 Chloride 103 Carbon Dioxide 25.7 BUN 8.0 Creatinine 0.81 Glucose 112 H Calcium 9.5 Liver Function 09/30/24 Range/Units 10:46 Total Bilirubin 0.8 (0.2-1.0) mg/dL Direct Bilirubin 0.2 (0.0-0.2) mg/dL AST 17 (15-37) U/L ALT 27 (14-59) U/L Alkaline Phosphatase 85 (46-116) U/L Albumin 3.3 L (3.4-5.0) g/dL Assessment and Plan Assessment and Plan (1) Constipation by delayed colonic transit: Assessment and Plan: docusate, miralax, and milk of mag (2) Nausea & vomiting: Assessment and Plan: zofran, CT negative for SBO or ileus, may be viral in nature Qualifiers: Vomiting type: unspecified Qualified Code(s): R11.2 - Nausea with vomiting, unspecified (3) Generalized weakness: Assessment and Plan: labs overall look good. Will get PT/OT evaluation. (4) Pneumonia: Assessment and Plan: will have her finish out Zithromax course, day 3 of 5. seen on Cxr LLL, monitor oxygen status. Normal WBC's saturating good on room air. Qualifiers: Laterality: left Lung location: lower lobe of lung Pneumonia type: due to unspecified organism Qualified Code(s): J18.9 - Pneumonia, unspecified organism (5) CAD (coronary artery disease): Assessment and Plan: continue aspirin Qualifiers: Associated angina: without angina Coronary Disease-Associated Artery/Lesion type: [place] artery [place] vs. transplanted heart: [place] heart Qualified Code(s): I25.10 - Atherosclerotic heart disease of [place] coronary artery without angina pectoris (6) Degenerative lumbar spinal stenosis: Assessment and Plan: continue Cymbalta, gabapentin, and hydrocodone (7) Chronic heart failure with preserved ejection fraction (HFpEF): Assessment and Plan: no acute exacerbation, continue toresimide, lisinopril, coreg, fluid restriction to 2L (8) HTN (hypertension): Assessment and Plan: resume home meds Qualifiers: Hypertension type: primary hypertension Qualified Code(s): I10 - Essential (primary) hypertension (9) COPD (chronic obstructive pulmonary disease): Assessment and Plan: continue Trelegy, PRN albuterol as needed. Qualifiers: COPD type: unspecified COPD Qualified Code(s): J44.9 - Chronic obstructive pulmonary disease, unspecified (10) Primary osteoarthritis of right hip: Assessment and Plan: continue pain medications (11) Anxiety: Assessment and Plan: continue cymbalta and Xanax (12) Hypothyroidism: Assessment and Plan: continue levothyroxine Qualifiers: Hypothyroidism type: unspecified Qualified Code(s): E03.9 - Hypothyroidism, unspecified Plan Patient is a full code Lovenox for dvt prophylaxis Patient with significant weakness with n/v/d, she is observation status. She is also a precert to [facility].
[2024-09-30] MEDS: MAGNESIUM HYDROXIDE 2,400 MG/10 ML ORAL.SUSP 2400 MG PO (14:37)
[2024-09-30] MEDS: ONDANSETRON PF 4 MG/2 ML VIAL IV ×2 (14:37→21:15)
[2024-09-30] MEDS: ENOXAPARIN SODIUM 40 MG/0.4 ML SYRINGE SUBQ (14:37)
[2024-09-30] MEDS: POLYETHYLENE GLYCOL 3350 17 GM POWDER PACKET PO (14:37)
[2024-09-30] MEDS: AZITHROMYCIN 250 MG TABLET PO (14:37)
--- NOTE | 2024-09-30 15:34 | PM.CSD1 ---
Advance Care Planning Advance Care Planning Discussion Advance care planning discussion summary: discussed options for code status with patient and son at bedside. Patient wishes to be a DNR [facility], Paper was signed and placed on chart. Code status updated on chart. Advance care planning: Physician Order for Life Sustaining Treatment Does patient have a terminal or chronic,progressive disease such that prognosis is less than 6 months: No Advance care planning discussion participants: patient and patient surrogate decision maker
--- NOTE | 2024-09-30 15:45 | SWNOTE1 ---
DEVEN called to speak with Monika at [facility], but she was gone for the day. DEVEN called Renetta's work phone from [facility] and she advised to send her referral to [facility], DEVEN faxed. She will review and let DEVEN know.
--- NOTE | 2024-09-30 15:52 | SWNOTE1 ---
Pt will be a precert to [facility] if they can accept.
--- NOTE | 2024-09-30 15:55 | SWNOTE1 ---
Renetta at [facility] said they can accept and will start precert once they receive PT eval. SW updated nurse and provided fax number.
--- NOTE | 2024-09-30 16:48 | PC.NURSE ---
patient received iv zofran for nausea, patient stated she felt better and wanted to try and eat. Miralax and milk of mag was given, patient ate chicken noodle soup and a grilled cheese for dinner. Patient then developed nausea and vomiting again. Dr. Morgan notified and orders received
[2024-09-30] MEDS: PROMETHAZINE HCL 25 MG SUPP.RECT PR (17:09)
[2024-09-30] MEDS: ALPRAZOLAM 0.25 MG TABLET PO (21:13)
[2024-09-30] MEDS: HYDROCODONE/ACET 5-325 MG TABLET 1.5 TAB PO (21:13)
[2024-09-30] MEDS: GABAPENTIN 100 MG CAPSULE 200 MG PO (21:13)
[2024-09-30] MEDS: DOCUSATE SODIUM 100 MG CAPSULE 200 MG PO (21:13)
[2024-09-30] MEDS: CARVEDILOL 12.5 MG TABLET PO (21:14)
[2024-09-30] MEDS: BUDESONIDE 0.5 MG/2 ML AMPULE NEB IH (22:45)
[2024-09-30] MEDS: IPRATROPIUM/ALBUTEROL SULFATE 3 ML AMPUL.NEB IH (22:45)
[2024-10-01] VITALS (10 sets, daily range): BP systolic 88–131; BP diastolic 52–72; PULSE 60–76; TEMP 36.4–36.6; O2SAT 93–98
[2024-10-01] MEDS: IPRATROPIUM/ALBUTEROL SULFATE 3 ML AMPUL.NEB IH ×4 (05:24→23:35)
[2024-10-01 06:14] LABS: Basophils Percent Auto 0.3 % (0.2-2.0); Eosinophils Absolute Auto 0.1 10^3/uL (0.0-0.7); Eosinophils Percent Auto 0.8 % (0.9-7.0); Hematocrit 33.7 % (36.0-48.0); Immature Granulocytes Abs Auto 0.07 10^3/uL (0.00-0.03); Immature Granulocytes Pct Auto 0.7 % (0.0-0.5); Lymphocytes Absolute Auto 2.4 10^3/uL (1.2-3.8); Lymphocytes Percent Auto 24.5 % (20.5-60.0); Mean Corpuscular HGB Conc 32.6 g/dL (29.9-35.2); Mean Corpuscular Hemoglobin 31.2 pg (26.7-34.0); Mean Corpuscular Volume 95.5 fL (81.0-99.0); Mean Platelet Volume 10.3 fL (9.5-13.5); Monocytes Percent Auto 9.8 % (1.7-12.0); Neutrophils Absolute Auto 6.2 10^3/uL (1.4-6.5); Neutrophils Percent Auto 63.9 % (43.0-75.0); Platelet Count 169 10^3/uL (150-450); Red Blood Count 3.53 10^6/uL (4.20-5.40); Red Cell Distribution Width 13.2 % (11.0-15.0); White Blood Count 9.7 10^3/uL (4.0-11.0)
[2024-10-01] MEDS: HYDROCODONE/ACET 5-325 MG TABLET 1.5 TAB PO (06:15)
[2024-10-01] MEDS: PANTOPRAZOLE SODIUM 40 MG TABLET.DR PO (06:16)
[2024-10-01] MEDS: LEVOTHYROXINE SODIUM 100 MCG TABLET PO (06:16)
[2024-10-01 06:33] LABS: Anion Gap 8.9; Calcium 8.7 mg/dL (8.5-10.1); Chloride 107 mmol/L (98-107); Estimated GFR (African America >60 (>=60 mL/min/1.73m^2); Estimated GFR (Non-African Ame >60 (>=60 mL/min/1.73m^2); Glucose 95 mg/dL (74-106); Potassium 3.9 mmol/L (3.5-5.1); Sodium 137 mmol/L (136-145)
[2024-10-01] MEDS: POLYETHYLENE GLYCOL 3350 17 GM POWDER PACKET PO (08:31)
[2024-10-01] MEDS: CETIRIZINE HCL 10 MG TABLET PO (08:31)
[2024-10-01] MEDS: FAMOTIDINE 20 MG TABLET PO (08:31)
[2024-10-01] MEDS: CARVEDILOL 12.5 MG TABLET PO (08:31)
[2024-10-01] MEDS: GABAPENTIN 100 MG CAPSULE 200 MG PO (08:31)
[2024-10-01] MEDS: ONDANSETRON PF 4 MG/2 ML VIAL IV ×2 (08:31→14:01)
[2024-10-01] MEDS: ASPIRIN 81 MG TAB.CHEW PO (08:31)
[2024-10-01] MEDS: LISINOPRIL 5 MG TABLET PO (08:31)
[2024-10-01] MEDS: AZITHROMYCIN 250 MG TABLET PO (08:31)
[2024-10-01] MEDS: DULOXETINE HCL 60 MG CAPSULE.DR PO (08:31)
[2024-10-01] MEDS: DOCUSATE SODIUM 100 MG CAPSULE 200 MG PO ×2 (08:31→21:20)
[2024-10-01] MEDS: TORSEMIDE 20 MG TABLET PO (08:31)
--- NOTE | 2024-10-01 08:40 | P.PN_ITS ---
Progress Note: Subjective Subjective Interval history: Patient sleeping when I entered the room, awakens easily, answers questions appropriately, generalized weakness persisting Exam Constitutional Vital Signs, click to edit/add: Last Vital Signs Temp 97.7 F 10/01/24 08:23 Pulse 68 10/01/24 08:23 Resp 18 10/01/24 08:23 BP 131/72 10/01/24 08:23 Pulse Ox 98 10/01/24 08:23 O2 Del Method Room Air 10/01/24 08:23 Documenting provider has reviewed patient's vital signs: yes Common normals: no apparent distress Chest Common normals: inspection of chest normal Respiratory Common normals: normal respiratory effort and no retractions Cardio Common normals: regular rate and regular rhythm GI Common normals: Normal to inspection, nondistended, normoactive bowel sounds present Extremity Common normals: normal to inspection and no clubbing, cyanosis or edema Progress Note: Objective Labs Labs: Short CBC 09/30/24 10/01/24 Range/Units 10:46 05:35 WBC 10.5 9.7 (4.0-11.0) 10^3/uL Hgb 12.8 11.0 L (12.0-16.0) g/dL Hct 39.5 33.7 L (36.0-48.0) % Plt Count 216 169 (150-450) 10^3/uL BMP 09/30/24 10/01/24 10:46 05:35 Sodium 138 137 Potassium 4.3 3.9 Chloride 103 107 Carbon Dioxide 25.7 25.0 BUN 8.0 10.0 Creatinine 0.81 0.77 Glucose 112 H 95 Calcium 9.5 8.7 Liver Function 09/30/24 Range/Units 10:46 Total Bilirubin 0.8 (0.2-1.0) mg/dL Direct Bilirubin 0.2 (0.0-0.2) mg/dL AST 17 (15-37) U/L ALT 27 (14-59) U/L Alkaline Phosphatase 85 (46-116) U/L Albumin 3.3 L (3.4-5.0) g/dL Progress Note: A&P Assessment and Plan (1) Constipation by delayed colonic transit: (2) Nausea & vomiting: Qualifiers: Vomiting type: unspecified Qualified Code(s): R11.2 - Nausea with vomiting, unspecified (3) Generalized weakness: (4) Pneumonia: Qualifiers: Laterality: left Lung location: lower lobe of lung Pneumonia type: due to unspecified organism Qualified Code(s): J18.9 - Pneumonia, unspecified organism (5) CAD (coronary artery disease): Qualifiers: Associated angina: without angina Coronary Disease-Associated Artery/Lesion type: [place] artery [place] vs. transplanted heart: [place] heart Qualified Code(s): I25.10 - Atherosclerotic heart disease of [place] coronary artery without angina pectoris (6) Degenerative lumbar spinal stenosis: (7) Chronic heart failure with preserved ejection fraction (HFpEF): (8) HTN (hypertension): Qualifiers: Hypertension type: primary hypertension Qualified Code(s): I10 - Essential (primary) hypertension (9) COPD (chronic obstructive pulmonary disease): Qualifiers: COPD type: unspecified COPD Qualified Code(s): J44.9 - Chronic obstructive pulmonary disease, unspecified (10) Primary osteoarthritis of right hip: (11) Anxiety: (12) Hypothyroidism: Qualifiers: Hypothyroidism type: unspecified Qualified Code(s): E03.9 - Hypothyroidism, unspecified Plan Admission findings: Patient with respiratory distress, uncontrolled hypertension, normal white blood cell count but left shift consistent with a possible bacterial process Constipation by delayed colonic transit: So far bowel movements have improved, maintain current treatment plan, considerations for Linzess Nausea & vomiting: Able to tolerate clear liquids last night, advance diet this morning Generalized weakness: PT to work with patient again today Pneumonia: Lung exam pretty clear today, continue Zithromax CAD (coronary artery disease): Denies chest pain, maintain current treatment plan Degenerative lumbar spinal stenosis: Pain currently well-controlled with multiple medications, patient is somewhat somnolent this morning need to watch dosing Chronic heart failure with preserved ejection fraction (HFpEF) but bilateral lower lobe pleural effusions: Maintain current treatment plan, lung exam clear HTN (hypertension): Blood pressure elevated on admission but is improved Anemia-likely iron deficient-continue to monitor if drops further consider Hemoccult COPD (chronic obstructive pulmonary disease): Complicated by the pneumonia as outlined above Primary osteoarthritis of right hip: Continue with current medications, physical therapy Anxiety: Continue current medications Hypothyroidism: Continue current medications Admission status: Patient with failed outpatient treatment for her pneumonia resulting in weakness HEENT: Concerning for acute combined congestive heart failure with bilateral pleural effusions, overall patient is somewhat improved from a cardiovascular standpoint but still significant weakness, maintain inpatient status, medically necessary treatment spanning 2 midnights, patient excellent rehabilitation candidate if necessary by the time the patient is stable
[2024-10-01 09:16] LABS: Bilirubin Urine NEGATIVE (NEGATIVE); Blood Urine NEGATIVE (NEGATIVE); Clarity Urine CLEAR (CLEAR); Color Urine YELLOW (YELLOW); Glucose Urine UA NEGATIVE (NEGATIVE); Ketones Urine NEGATIVE (NEGATIVE); Leukocyte Esterase Urine NEGATIVE (NEGATIVE); Nitrite Urine NEGATIVE (NEGATIVE); Protein Urine NEGATIVE (NEG/TRACE)
[2024-10-01 09:28] LABS: Bacteria Urine SMALL #/HPF (NONE SEEN); Cast Seen? NONE SEEN #/LPF (NONE SEEN); Crystals Seen? None Seen #/HPF (None Seen); Mucus Urine TRACE (NONE SEEN); RBC Urine 0-2 #/HPF (0-2); Squamous Epithelial Cell Urine FEW #/LPF (NONE/RARE); Transitional Epi Cells Urine RARE #/LPF (NONE SEEN)
--- NOTE | 2024-10-01 10:19 | PT.DAILY ---
Physical Therapy Daily Note PT Daily Note/Assess Start: 09/30/24 16:29 Freq: Status: Active Protocol: Document 10/01/24 09:30 TORIN (Rec: 10/01/24 10:19 TORIN [id number]) Physical Therapy Daily Note/Assessment Time In/Time Out Time In 09:33 Time Out 09:45 Subjective Subjective Patient reports feeling better, was able to eat breakfast and so far denies nausea. Reports mild L LE pain due to arthritis but manageable. Therapeutic Exercise Time Therapeutic Exercise 4 Minutes (minutes) Therapeutic Exercise 0 Units Therapeutic Exercise Treatment Therapeutic Exercise Seated exercises as follows to build LE strength: Treatment -LAQ 10x -Marches 10x -Seated HR/TR 10x -Hip abduction (step outs) 10x -Hip adduction with pillow squeeze 10x Therapeutic Activity Time Therapeutic Activity 8 Minutes (minutes) Therapeutic Activity 1 Units Therapeutic Activity Treatment Chair Transfer Standby Assistance Ability Therapeutic Activity Gait 20'x1 and 35'x1 with seated rest break in between Comments due to fatigue. Post ambulation patient required short therapeutic rest break prior to completing exercises. Total Physical Therapy Time Total Therapy 12 Minutes Total Physical 1 Therapy Units Summary Daily Note Summary Demonstrates improved distance and ability with ambulation using RW today. Patient continues to fatigue quickly with activity and will benefit from SNF at [place] to build strength allowing patient to return to [place]. Patient was in chair with call light in reach and all needs met post RX.
[2024-10-01] MEDS: BUDESONIDE 0.5 MG/2 ML AMPULE NEB IH ×2 (10:24→23:35)
[2024-10-01] MEDS: ENOXAPARIN SODIUM 40 MG/0.4 ML SYRINGE SUBQ (14:00)
--- NOTE | 2024-10-01 16:12 | RESP.RT ---
Addendum entered by Milena Pompa, CORRECTIVE AND MANUAL ARTS THERAPIST 10/01/24 16:19: Prolonged expiratory phase Original Note: Crackles in bases, increased WOB since previous tx
[2024-10-01] MEDS: ALPRAZOLAM 0.25 MG TABLET PO ×2 (16:20→21:20)
[2024-10-02] VITALS (11 sets, daily range): BP systolic 100–145; BP diastolic 57–79; PULSE 69–80; TEMP 36.4–36.7; O2SAT 91–98
[2024-10-02] MEDS: IPRATROPIUM/ALBUTEROL SULFATE 3 ML AMPUL.NEB IH ×4 (04:25→22:53)
[2024-10-02] MEDS: LEVOTHYROXINE SODIUM 100 MCG TABLET PO (05:34)
[2024-10-02] MEDS: PANTOPRAZOLE SODIUM 40 MG TABLET.DR PO (05:34)
[2024-10-02 06:12] LABS: Basophils Percent Auto 0.4 % (0.2-2.0); Eosinophils Absolute Auto 0.2 10^3/uL (0.0-0.7); Eosinophils Percent Auto 2.4 % (0.9-7.0); Hematocrit 32.1 % (36.0-48.0); Hemoglobin 10.4 g/dL (12.0-16.0); Immature Granulocytes Abs Auto 0.06 10^3/uL (0.00-0.03); Immature Granulocytes Pct Auto 0.6 % (0.0-0.5); Lymphocytes Absolute Auto 2.1 10^3/uL (1.2-3.8); Mean Corpuscular HGB Conc 32.4 g/dL (29.9-35.2); Mean Corpuscular Volume 95.5 fL (81.0-99.0); Mean Platelet Volume 10.4 fL (9.5-13.5); Monocytes Absolute Auto 0.8 10^3/uL (0.3-0.8); Monocytes Percent Auto 8.6 % (1.7-12.0); Neutrophils Absolute Auto 6.3 10^3/uL (1.4-6.5); Platelet Count 167 10^3/uL (150-450); Red Blood Count 3.36 10^6/uL (4.20-5.40); Red Cell Distribution Width 13.2 % (11.0-15.0); White Blood Count 9.6 10^3/uL (4.0-11.0)
[2024-10-02 06:24] LABS: Anion Gap 10.9; BUN Creatinine Ratio 18.3; Calcium 8.7 mg/dL (8.5-10.1); Carbon Dioxide 26.9 mmol/L (21.0-32.0); Chloride 104 mmol/L (98-107); Estimated GFR (African America >60 (>=60 mL/min/1.73m^2); Estimated GFR (Non-African Ame >60 (>=60 mL/min/1.73m^2); Glucose 96 mg/dL (74-106); Potassium 3.8 mmol/L (3.5-5.1); Sodium 138 mmol/L (136-145)
[2024-10-02] MEDS: ONDANSETRON PF 4 MG/2 ML VIAL IV ×4 (08:31→21:04)
[2024-10-02] MEDS: DULOXETINE HCL 60 MG CAPSULE.DR PO (08:38)
[2024-10-02] MEDS: AZITHROMYCIN 250 MG TABLET PO (08:38)
[2024-10-02] MEDS: POLYETHYLENE GLYCOL 3350 17 GM POWDER PACKET PO (08:38)
[2024-10-02] MEDS: LISINOPRIL 5 MG TABLET PO (08:38)
[2024-10-02] MEDS: FAMOTIDINE 20 MG TABLET PO (08:38)
[2024-10-02] MEDS: DOCUSATE SODIUM 100 MG CAPSULE 200 MG PO ×2 (08:38→20:50)
[2024-10-02] MEDS: GABAPENTIN 100 MG CAPSULE 200 MG PO ×2 (08:38→20:51)
[2024-10-02] MEDS: CETIRIZINE HCL 10 MG TABLET PO (08:38)
[2024-10-02] MEDS: ASPIRIN 81 MG TAB.CHEW PO (08:38)
[2024-10-02] MEDS: ALPRAZOLAM 0.25 MG TABLET PO ×2 (08:41→20:53)
[2024-10-02] MEDS: CARVEDILOL 12.5 MG TABLET PO ×2 (08:41→20:50)
--- NOTE | 2024-10-02 09:04 | P.PN_ITS ---
Progress Note: Subjective Subjective Interval history: Patient up in the chair this morning, definitely appears worse, fatigued as well as emesis basin in front of her, describing increasing nausea, pain about the same Exam Constitutional Vital Signs, click to edit/add: Last Vital Signs Temp 98.0 F 10/02/24 08:35 Pulse 75 10/02/24 08:35 Resp 20 10/02/24 08:35 BP 145/77 H 10/02/24 08:38 Pulse Ox 97 10/02/24 08:35 O2 Del Method Room Air 10/02/24 08:35 Documenting provider has reviewed patient's vital signs: yes Common normals: apparent distress (Appears nauseous) Chest Common normals: inspection of chest normal Respiratory Common normals: normal respiratory effort and no retractions Cardio Common normals: regular rate and regular rhythm GI Common normals: Normal to inspection, nondistended, normoactive bowel sounds present, soft to palpation and non-tender Extremity Common normals: normal to inspection and no clubbing, cyanosis or edema Progress Note: Objective Labs Labs: Short CBC 10/02/24 Range/Units 05:37 WBC 9.6 (4.0-11.0) 10^3/uL Hgb 10.4 L (12.0-16.0) g/dL Hct 32.1 L (36.0-48.0) % Plt Count 167 (150-450) 10^3/uL BMP 10/02/24 05:37 Sodium 138 Potassium 3.8 Chloride 104 Carbon Dioxide 26.9 BUN 15.0 Creatinine 0.82 Glucose 96 Calcium 8.7 Urine 10/01/24 Range/Units 08:35 Urine Color Yellow (YELLOW) Urine Clarity Clear (CLEAR) Urine pH 7.0 (5.0-9.0) Ur Specific [place] 1.010 (1.005-1.025) Urine Protein Negative (NEG/TRACE) mg/dL Urine Glucose (UA) Negative (NEGATIVE) mg/dL Progress Note: A&P Assessment and Plan (1) Constipation by delayed colonic transit: (2) Nausea & vomiting: Qualifiers: Vomiting type: unspecified Qualified Code(s): R11.2 - Nausea with vomiting, unspecified (3) Generalized weakness: (4) Pneumonia: Qualifiers: Laterality: left Lung location: lower lobe of lung Pneumonia type: due to unspecified organism Qualified Code(s): J18.9 - Pneumonia, unspecified organism (5) CAD (coronary artery disease): Qualifiers: Associated angina: without angina Coronary Disease-Associated Artery/Lesion type: [place] artery [place] vs. transplanted heart: [place] heart Qualified Code(s): I25.10 - Atherosclerotic heart disease of [place] coronary artery without angina pectoris (6) Degenerative lumbar spinal stenosis: (7) Chronic heart failure with preserved ejection fraction (HFpEF): (8) HTN (hypertension): Qualifiers: Hypertension type: primary hypertension Qualified Code(s): I10 - Essential (primary) hypertension (9) COPD (chronic obstructive pulmonary disease): Qualifiers: COPD type: unspecified COPD Qualified Code(s): J44.9 - Chronic obstructive pulmonary disease, unspecified (10) Primary osteoarthritis of right hip: (11) Anxiety: (12) Hypothyroidism: Qualifiers: Hypothyroidism type: unspecified Qualified Code(s): E03.9 - Hypothyroidism, unspecified Plan Admission findings: Patient with respiratory distress, uncontrolled hypertension, normal white blood cell count but left shift consistent with a possible bacterial process Constipation by delayed colonic transit: Increase treatment by adding lactulose twice daily, checking acute abdominal series Nausea & vomiting: Appears worse this morning. Increase frequency of Zofran, checking acute abdominal series, adding IV fluids today Generalized weakness: Continue with PT excellent rehab candidate Pneumonia: Lung exam pretty clear today, continue Zithromax CAD (coronary artery disease): Denies chest pain, maintain current treatment plan Degenerative lumbar spinal stenosis: Pain currently well-controlled with multiple medications, he did consider adjusting narcotic dosing based on constipation Chronic heart failure with preserved ejection fraction (HFpEF) but bilateral l ower lobe pleural effusions: Maintain current treatment plan, lung exam clear HTN (hypertension): Blood pressure elevated on admission but is improved Anemia-likely iron deficient-still fairly stable COPD (chronic obstructive pulmonary disease): Complicated by the pneumonia as outlined above Primary osteoarthritis of right hip: Continue with current medications, physical therapy Anxiety: Continue current medications Hypothyroidism: Continue current medications Admission status: Patient with failed outpatient treatment for her pneumonia resulting in weakness HEENT: Concerning for acute combined congestive heart failure with bilateral pleural effusions, condition deteriorated today, and increasing nausea vomiting, weakness, adding IV fluids and checking acute abdominal series, medically necessary treatment spanning more than 2 midnights, maintain inpatient status
[2024-10-02] MEDS: LACTULOSE 10 GM/15 ML UD CUP 30 GM PO ×2 (09:23→20:52)
[2024-10-02] MEDS: 0.9 % SODIUM CHLORIDE 1,000 ML 100 ML IV ×2 (09:23→20:54)
[2024-10-02] MEDS: BUDESONIDE 0.5 MG/2 ML AMPULE NEB IH ×2 (11:54→22:53)
[2024-10-02] MEDS: HYOSCYAMINE SULFATE 0.125 MG TAB.SUBL SL ×3 (13:16→20:59)
[2024-10-02] MEDS: ENOXAPARIN SODIUM 40 MG/0.4 ML SYRINGE SUBQ (14:19)
[2024-10-02] MEDS: HYDROCODONE/ACET 5-325 MG TABLET 1.5 TAB PO (22:47)
[2024-10-03] VITALS (9 sets, daily range): BP systolic 91–149; BP diastolic 49–75; PULSE 66–77; TEMP 36.3–36.6; O2SAT 93–98
[2024-10-03] MEDS: IPRATROPIUM/ALBUTEROL SULFATE 3 ML AMPUL.NEB IH ×4 (04:04→22:18)
[2024-10-03 05:34] LABS: Basophils Percent Auto 0.3 % (0.2-2.0); Eosinophils Absolute Auto 0.3 10^3/uL (0.0-0.7); Hematocrit 31.8 % (36.0-48.0); Hemoglobin 10.4 g/dL (12.0-16.0); Immature Granulocytes Abs Auto 0.04 10^3/uL (0.00-0.03); Immature Granulocytes Pct Auto 0.5 % (0.0-0.5); Lymphocytes Absolute Auto 1.8 10^3/uL (1.2-3.8); Lymphocytes Percent Auto 20.8 % (20.5-60.0); Mean Corpuscular HGB Conc 32.7 g/dL (29.9-35.2); Mean Corpuscular Hemoglobin 31.1 pg (26.7-34.0); Mean Corpuscular Volume 95.2 fL (81.0-99.0); Mean Platelet Volume 9.9 fL (9.5-13.5); Monocytes Absolute Auto 0.7 10^3/uL (0.3-0.8); Monocytes Percent Auto 8.4 % (1.7-12.0); Neutrophils Absolute Auto 5.9 10^3/uL (1.4-6.5); Platelet Count 161 10^3/uL (150-450); Red Blood Count 3.34 10^6/uL (4.20-5.40); Red Cell Distribution Width 13.2 % (11.0-15.0); White Blood Count 8.8 10^3/uL (4.0-11.0)
[2024-10-03] MEDS: LEVOTHYROXINE SODIUM 100 MCG TABLET PO (05:40)
[2024-10-03] MEDS: PANTOPRAZOLE SODIUM 40 MG TABLET.DR PO (05:41)
[2024-10-03 05:49] LABS: Anion Gap 10.4; BUN Creatinine Ratio 11.8; Calcium 8.3 mg/dL (8.5-10.1); Carbon Dioxide 25.3 mmol/L (21.0-32.0); Chloride 110 mmol/L (98-107); Estimated GFR (African America >60 (>=60 mL/min/1.73m^2); Estimated GFR (Non-African Ame >60 (>=60 mL/min/1.73m^2); Glucose 93 mg/dL (74-106); Potassium 3.7 mmol/L (3.5-5.1); Sodium 142 mmol/L (136-145)
[2024-10-03 05:51] LABS: Alanine Aminotransferase 11 U/L (14-59); Albumin Globulin Ratio 1.1; Albumin Level 2.6 g/dL (3.4-5.0); Alkaline Phosphatase 63 U/L (46-116); Amylase 22 U/L (25-115); Aspartate Amino Transferase 14 U/L (15-37); Bilirubin Direct 0.1 mg/dL (0.0-0.2); Bilirubin Total 0.4 mg/dL (0.2-1.0); Globulin 2.4 g/dL
--- NOTE | 2024-10-03 06:00 | US_ITS ---
[facility] [place] [id number] Patient Name: ELGIN NORWOOD MRN: [id number] date: 1940 Sex: F Assigned Patient Location: Current Patient Location: Accession/Order Number: [id number] Exam Date: 10/03/2024 08:32 Report Date: 10/03/2024 08:35 At the request of: ONEL AUGUSTIN MD Procedure: US right upper quadrant LIMITED RIGHT UPPER QUADRANT ABDOMINAL ULTRASOUND CLINICAL HISTORY: Nausea, vomiting COMPARISON: CT 09/30/2024 The gallbladder is physiologically distended. There are multiple small echogenic layering gallstones. No wall thickening or pericholecystic fluid is seen. No intra- or extrahepatic biliary dilatation is evident. The common duct measures 2 - 3 mm. The liver is normal in echogenicity. No intrahepatic masses are seen. There is appropriate hepatopetal flow within the main portal vein. The pancreas shows no significant sonographic abnormality. Cursory evaluation of the right kidney reveals no hydronephrosis or fluid within Gayle's pouch. US/US right upper quadrant IMPRESSION: CHOLELITHIASIS Impression dictated by: Salud Mejia M.D.10/03/2024 8:35 AM Dictation Location: [place] [address] Electronically authenticated by: [id number] Y Date: 10/03/2024 08:35
[2024-10-03] MEDS: 0.9 % SODIUM CHLORIDE 1,000 ML 100 ML IV ×2 (06:41→16:07)
--- NOTE | 2024-10-03 07:53 | P.PN_ITS ---
Progress Note: Subjective Subjective Interval history: Patient just waking up but has appeared more fatigued in previous day, still with persistent nausea, no significant BM yet Exam Constitutional Vital Signs, click to edit/add: Last Vital Signs Temp 97.4 F L 10/03/24 06:42 Pulse 77 10/03/24 06:42 Resp 18 10/03/24 04:06 BP 111/71 10/03/24 06:42 Pulse Ox 94 L 10/03/24 06:42 O2 Del Method Room Air 10/03/24 06:42 Documenting provider has reviewed patient's vital signs: yes Common normals: apparent distress (Appears nauseous) Chest Common normals: inspection of chest normal Respiratory Common normals: normal respiratory effort and clear to auscultation bilaterally Cardio Common normals: regular rate, regular rhythm and no murmurs GI Common normals: Normal to inspection, nondistended, normoactive bowel sounds present and soft to palpation; tender (Mild diffuse tenderness) Extremity Common normals: normal to inspection and no clubbing, cyanosis or edema Progress Note: Objective Labs Labs: Short CBC 10/03/24 Range/Units 05:11 WBC 8.8 (4.0-11.0) 10^3/uL Hgb 10.4 L (12.0-16.0) g/dL Hct 31.8 L (36.0-48.0) % Plt Count 161 (150-450) 10^3/uL BMP 10/03/24 05:11 Sodium 142 Potassium 3.7 Chloride 110 H Carbon Dioxide 25.3 BUN 8.0 Creatinine 0.68 Glucose 93 Calcium 8.3 L Liver Function 10/03/24 Range/Units 05:11 Total Bilirubin 0.4 (0.2-1.0) mg/dL Direct Bilirubin 0.1 (0.0-0.2) mg/dL AST 14 L (15-37) U/L ALT 11 L (14-59) U/L Alkaline Phosphatase 63 (46-116) U/L Albumin 2.6 L (3.4-5.0) g/dL Progress Note: A&P Assessment and Plan (1) Constipation by delayed colonic transit: (2) Nausea & vomiting: Qualifiers: Vomiting type: unspecified Qualified Code(s): R11.2 - Nausea with vomiting, unspecified (3) Generalized weakness: (4) Pneumonia: Qualifiers: Laterality: left Lung location: lower lobe of lung Pneumonia type: due to unspecified organism Qualified Code(s): J18.9 - Pneumonia, unspecified organism (5) CAD (coronary artery disease): Qualifiers: Associated angina: without angina Coronary Disease-Associated Artery/Lesion type: [place] artery [place] vs. transplanted heart: mohegan heart Qualified Code(s): I25.10 - Atherosclerotic heart disease of [place] coronary artery without angina pectoris (6) Degenerative lumbar spinal stenosis: (7) Chronic heart failure with preserved ejection fraction (HFpEF): (8) HTN (hypertension): Qualifiers: Hypertension type: primary hypertension Qualified Code(s): I10 - Essential (primary) hypertension (9) COPD (chronic obstructive pulmonary disease): Qualifiers: COPD type: unspecified COPD Qualified Code(s): J44.9 - Chronic obstructive pulmonary disease, unspecified (10) Primary osteoarthritis of right hip: (11) Anxiety: (12) Hypothyroidism: Qualifiers: Hypothyroidism type: unspecified Qualified Code(s): E03.9 - Hypothyroidism, unspecified Plan Admission findings: Patient with respiratory distress, uncontrolled hypertension, normal white blood cell count but left shift consistent with a possible bacterial process Constipation by delayed colonic transit: Increased dose of lactulose frequency and fleets enema Nausea & vomiting: Check on ultrasound of abdomen Generalized weakness: Continue with PT excellent rehab candidate Pneumonia: Lung exam pretty clear today, has finished Zithromax CAD (coronary artery disease): Denies chest pain, maintain current treatment plan Degenerative lumbar spinal stenosis: Pain currently well-controlled with multiple medications, he did consider adjusting narcotic dosing based on danyeli patiqiana Chronic heart failure with preserved ejection fraction (HFpEF) but bilateral lower lobe pleural effusions: Maintain current treatment plan, lung exam clear HTN (hypertension): Blood pressure elevated on admission but is improved Anemia-likely iron deficient-still fairly stable COPD (chronic obstructive pulmonary disease): Complicated by the pneumonia as outlined above Primary osteoarthritis of right hip: Continue with current medications, physical therapy Anxiety: Continue current medications Hypothyroidism: Continue current medications Admission status: Patient with failed outpatient treatment for her pneumonia resulting in weakness Concerning for acute combined congestive heart failure with bilateral pleural effusions, nausea worsening today, maintain inpatient status
--- NOTE | 2024-10-03 08:04 | CM.NOTE ---
Rounds made with Dr. Graham, pt continues with c/o abdominal pain and constipation. Awaiting ultrasound. Dr. Graham discussed plan of care.
--- NOTE | 2024-10-03 09:22 | SWNOTE1 ---
SW had email from Renetta at [facility] and she would like updated MD notes and therapy. SW faxed MD notes from yesterday and today, PT from Thursday, vitals, and labs to Renetta at [facility].
[2024-10-03] MEDS: POLYETHYLENE GLYCOL 3350 17 GM POWDER PACKET PO (09:32)
[2024-10-03] MEDS: DOCUSATE SODIUM 100 MG CAPSULE 200 MG PO ×2 (09:33→21:04)
[2024-10-03] MEDS: CETIRIZINE HCL 10 MG TABLET PO (09:33)
[2024-10-03] MEDS: ASPIRIN 81 MG TAB.CHEW PO (09:33)
[2024-10-03] MEDS: GABAPENTIN 100 MG CAPSULE 200 MG PO ×2 (09:33→21:05)
[2024-10-03] MEDS: LISINOPRIL 5 MG TABLET PO (09:33)
[2024-10-03] MEDS: DULOXETINE HCL 60 MG CAPSULE.DR PO (09:33)
[2024-10-03] MEDS: CARVEDILOL 12.5 MG TABLET PO ×2 (09:33→21:04)
[2024-10-03] MEDS: HYOSCYAMINE SULFATE 0.125 MG TAB.SUBL SL (09:57)
[2024-10-03] MEDS: ONDANSETRON PF 4 MG/2 ML VIAL IV ×2 (09:57→16:07)
[2024-10-03] MEDS: BUDESONIDE 0.5 MG/2 ML AMPULE NEB IH ×2 (10:28→22:18)
--- NOTE | 2024-10-03 10:33 | SWNOTE1 ---
Important Message from Medicare reviewed and discussed with patient. Pt. verbalized understanding and signed the form. Original given to patient and copy placed in patient?s chart.
--- NOTE | 2024-10-03 11:35 | REH.PTDLY ---
Physical Therapy Daily Note PT Daily Note/Assess Start: 09/30/24 16:29 Freq: Status: Active Protocol: Document 10/03/24 11:26 ELENASAMYPADMINI (Rec: 10[facility]03/24 11:32 [id number] Physical Therapy Daily Note/Assessment Time In 11:07 Time Out 11:24 Subjective Pt up in chair upon arrival, agreeable to therapy. No current complaints. Therapeutic Exercise 11 Minutes (minutes) Therapeutic Exercise 1 Units Therapeutic Exercise Instructed in B LE exs with legs elevated in recliner. Treatment Exs included AP, QS, SLR, heel slides, abd slides 10x ea. With legs lowered instructed in LAQ, marching, hip abd step outs, hip add squeezes 10x ea. Pt has some discomfort in L hip at times, pt states this hip has been giving her trouble. Therapeutic Activity 6 Minutes (minutes) Therapeutic Activity 0 Units Therapeutic Activity Sit to stand transfers from chair CGA. Gait training Comments with RW CGA 50 feet with fatigue noted. Cues for pt to focus on breathing as she ambulates to avoid shortness of breath. Cues to reach back for chair upon sitting, but pt keeps hands on RW. Educated once pt is seated on hand position. Total Therapy 17 Minutes Total Physical 1 Therapy Units Daily Note Summary Pt fatigued post rx. Progressed gait distance with pt stating it feels good to ambulate, but is tiresome. Pt would benefit from rehab stay due to pt easily becoming weak and fatigued.
[2024-10-03] MEDS: SUCRALFATE 1 GM TABLET PO ×2 (13:01→21:04)
--- NOTE | 2024-10-03 13:57 | PC.NURSE ---
Pt c/o shortness of breath. Lungs clear, no cough. Pulse ox 98% RA. HR 73 Resp 22. States has flareups at home but just suffers through them as she has no prn rescue inhaler. will report to doctor
[2024-10-03] MEDS: ALPRAZOLAM 0.25 MG TABLET PO ×2 (14:04→21:04)
[2024-10-03] MEDS: ENOXAPARIN SODIUM 40 MG/0.4 ML SYRINGE SUBQ (14:04)
--- NOTE | 2024-10-03 15:02 | SWNOTE1 ---
SW received email from Renetta at [facility] and pt is approved to go. SW notified nurse and physician.
--- NOTE | 2024-10-03 15:24 | SWNOTE1 ---
Pt not medically stable for discharge today. SW let Renetta at [facility] know.
[2024-10-03] MEDS: CALCIUM CARBONATE 500 MG (200MG ELEMENTAL) TAB CHEW PO ×2 (16:10→21:04)
[2024-10-03] MEDS: ZOLPIDEM TARTRATE 5 MG TABLET PO (21:05)
[2024-10-04] VITALS: BP 131/75; PULSE 86; TEMP 36.6; O2SAT 93
[2024-10-04 04:00] VITALS: BP 140/67; PULSE 83; TEMP 36.7; O2SAT 92
[2024-10-04 04:33] VITALS: PULSE 77; O2SAT 96
[2024-10-04] MEDS: IPRATROPIUM/ALBUTEROL SULFATE 3 ML AMPUL.NEB IH ×2 (04:33→10:50)
[2024-10-04] MEDS: 0.9 % SODIUM CHLORIDE 1,000 ML 100 ML IV (04:43)
[2024-10-04 05:11] LABS: Basophils Percent Auto 0.1 % (0.2-2.0); Eosinophils Absolute Auto 0.2 10^3/uL (0.0-0.7); Eosinophils Percent Auto 2.8 % (0.9-7.0); Hematocrit 32.6 % (36.0-48.0); Hemoglobin 10.4 g/dL (12.0-16.0); Immature Granulocytes Abs Auto 0.03 10^3/uL (0.00-0.03); Immature Granulocytes Pct Auto 0.4 % (0.0-0.5); Lymphocytes Absolute Auto 1.4 10^3/uL (1.2-3.8); Lymphocytes Percent Auto 20.4 % (20.5-60.0); Mean Corpuscular HGB Conc 31.9 g/dL (29.9-35.2); Mean Corpuscular Hemoglobin 30.4 pg (26.7-34.0); Mean Corpuscular Volume 95.3 fL (81.0-99.0); Mean Platelet Volume 10.8 fL (9.5-13.5); Monocytes Absolute Auto 0.6 10^3/uL (0.3-0.8); Monocytes Percent Auto 8.1 % (1.7-12.0); Neutrophils Absolute Auto 4.8 10^3/uL (1.4-6.5); Neutrophils Percent Auto 68.2 % (43.0-75.0); Platelet Count 120 10^3/uL (150-450); Red Blood Count 3.42 10^6/uL (4.20-5.40); Red Cell Distribution Width 13.2 % (11.0-15.0); White Blood Count 7.1 10^3/uL (4.0-11.0)
[2024-10-04 05:21] LABS: Anion Gap 10.7; BUN Creatinine Ratio 12.1; Calcium 8.7 mg/dL (8.5-10.1); Carbon Dioxide 23.1 mmol/L (21.0-32.0); Chloride 111 mmol/L (98-107); Estimated GFR (African America >60 (>=60 mL/min/1.73m^2); Estimated GFR (Non-African Ame >60 (>=60 mL/min/1.73m^2); Glucose 99 mg/dL (74-106); Potassium 3.8 mmol/L (3.5-5.1); Sodium 141 mmol/L (136-145)
[2024-10-04] MEDS: PANTOPRAZOLE SODIUM 40 MG TABLET.DR PO (05:35)
[2024-10-04] MEDS: LEVOTHYROXINE SODIUM 100 MCG TABLET PO (05:36)
--- NOTE | 2024-10-04 06:02 | P.DS_ITS ---
DS: Providers Provider Date of admission: 10/01/24 06:51 Primary care physician: MK ORTEGA Consults: 09/30/24 Consult to Assistant Surveyor Routine Reason for consult:: Advanced Directives 09/30/24 13:37 Occupational Therapy Eval and Treat Routine Reason for consultation: weakness and pain Has provider been notified: No Physical Therapy Eval and Treat Routine Reason for consultation: weakness and pain Has provider been notified: No 10/03/24 07:55 Consult to Pharmacy Routine Consulting Provider: Elías Graham Reason for consultation: Fleet enema - couldn't find in order system Has provider been notified: No DS: Diagnosis Discharge Diagnosis (1) Constipation by delayed colonic transit: (2) Nausea & vomiting: Qualifiers: Vomiting type: unspecified Qualified Code(s): R11.2 - Nausea with vomiting, unspecified (3) Generalized weakness: (4) Pneumonia: Qualifiers: Laterality: left Lung location: lower lobe of lung Pneumonia type: due to unspecified organism Qualified Code(s): J18.9 - Pneumonia, unspecified organism (5) CAD (coronary artery disease): Qualifiers: Associated angina: without angina Coronary Disease-Associated Art joseph/Lesion type: [place] artery [place] vs. transplanted heart: saxman heart Qualified Code(s): I25.10 - Atherosclerotic heart disease of saxman coronary artery without angina pectoris (6) Degenerative lumbar spinal stenosis: (7) Chronic heart failure with preserved ejection fraction (HFpEF): (8) HTN (hypertension): Qualifiers: Hypertension type: primary hypertension Qualified Code(s): I10 - Essential (primary) hypertension (9) COPD (chronic obstructive pulmonary disease): Qualifiers: COPD type: unspecified COPD Qualified Code(s): J44.9 - Chronic obstructive pulmonary disease, unspecified (10) Primary osteoarthritis of right hip: (11) Anxiety: (12) Hypothyroidism: Qualifiers: Hypothyroidism type: unspecified Qualified Code(s): E03.9 - Hypothyroidism, unspecified Plan Admission findings: Patient with respiratory distress, uncontrolled hypertension, normal white blood cell count but left shift consistent with a possible bacterial process Constipation by delayed colonic transit: Increased dose of lactulose frequency and fleets enema Nausea & vomiting: Check on ultrasound of abdomen neg - gatritis likely Thrombocytopenia - folllow as out pt Generalized weakness: Continue with PT excellent rehab candidate Pneumonia: Lung exam pretty clear today, has finished Zithromax CAD (coronary artery disease): Denies chest pain, maintain current treatment plan Degenerative lumbar spinal stenosis: Pain currently well-controlled with multiple medications, he did consider adjusting narcotic dosing based on constipation Chronic heart failure with preserved ejection fraction (HFpEF) but bilateral lower lobe pleural effusions: Maintain current treatment plan, lung exam clear HTN (hypertension): Blood pressure elevated on admission but is improved Anemia-likely iron deficient-still fairly stable COPD (chronic obstructive pulmonary disease): Complicated by the pneumonia as outlined above Primary osteoarthritis of right hip: Continue with current medications, physical therapy Anxiety: Continue current medications Hypothyroidism: Continue current medications Admission status: Patient with failed outpatient treatment for her pneumonia resulting in weakness Concerning for acute combined congestive heart failure with bilateral pleural effusions, nausea worsening today, maintain inpatient status ? DS: Summary Hospital Course Hospital Course: Patient admitted with respiratory distress, uncontrolled hypertension, normal white blood cell count but left shift consistent with a possible bacterial process,, patient continued to have emesis for the first 3 days, given IV fluids, ultrasound was done with a history of cholelithiasis and she does still have the cholelithiasis but no evidence of cholecystitis, severe constipation no bowel movement for 5 days, finally had bowel movement yesterday treated with Carafate yesterday and so far has been able to eat in the last 24 hours. That was the first she has eaten since admission. Plan is if she is able to still eat again today she can be discharged to rehab. Medication see list. Follow-up PCP after discharge Time Spent with Patient Time attestation: Total time spent providing and/or coordinating discharge services: Exam Constitutional Vital Signs, click to edit/add: Last Vital Signs Temp 98.1 F 10/04/24 04:00 Pulse 77 10/04/24 04:33 Resp 22 H 10/04/24 04:33 BP 140/67 10/04/24 04:00 Pulse Ox 96 10/04/24 04:33 O2 Del Method Room Air 10/04/24 04:33 Documenting provider has reviewed patient's vital signs: yes Common normals: apparent distress (Appears nauseous) Chest Common normals: inspection of chest normal Respiratory Common normals: normal respiratory effort and no retractions Cardio Common normals: regular rate, regular rhythm, S1 normal heart sound and S2 normal heart sound GI Common normals: Normal to inspection, nondistended, normoactive bowel sounds present and soft to palpation; tender (Tenderness now focused more epigastric) Extremity Common normals: normal to inspection and no clubbing, cyanosis or edema DS: Data Data Completed and Pending Labs on day of discharge: Labs from last 24 hours 10/04/24 04:58 WBC 7.1 RBC 3.42 L Hgb 10.4 L Hct 32.6 L MCV 95.3 MCH 30.4 MCHC 31.9 RDW 13.2 Plt Count 120 L MPV 10.8 Neut % (Auto) 68.2 Lymph % (Auto) 20.4 L [place] % (Auto) 8.1 Eos % (Auto) 2.8 Baso % (Auto) 0.1 L Neut # (Auto) 4.8 Lymph # (Auto) 1.4 [place] # (Auto) 0.6 Eos # (Auto) 0.2 Baso # (Auto) 0.0 Abs Immat Gran (auto) 0.03 Imm/Tot Granulo (auto) 0.4 Sodium 141 Potassium 3.8 Chloride 111 H Carbon Dioxide 23.1 Anion Gap 10.7 BUN 7.0 Creatinine 0.58 Est GFR ( Amer) >60 Est GFR (Non-Af Amer) >60 BUN/Creatinine Ratio 12.1 Glucose 99 Calcium 8.7 Discharge Plan Discharge Disposition: Xfer SNF Condition: Fair Discharge Medications: New polyethylene glycol 3350 17 gram Powder In Packet 17 g PO QD Qty: 30 0RF hydrocodone-acetaminophen 5-325 mg Tablet 1.5 tab PO Q6H PRN (Reason: severe pain (scale score 7-10)) Qty: 180 0RF sucralfate 1 gram Tablet 1 g PO ACHS Qty: 120 0RF alprazolam 0.25 mg Tablet 0.25 mg PO BID PRN (Reason: anxiety) Qty: 60 0RF pantoprazole 40 mg Tablet,Delayed Release (Dr/Ec) 40 mg PO ACB Qty: 20 0RF hyoscyamine sulfate 0.125 mg Tablet, Sublingual 0.125 mg sublingual Q4H PRN (Reason: Cramping) Qty: 30 0RF docusate sodium 100 mg Capsule 200 mg PO BID Qty: 120 0RF gabapentin 100 mg Capsule 200 mg PO Q12H Qty: 120 0RF magnesium hydroxide [Milk Of Magnesia Concentrated] 2,400 mg/10 mL Suspension 2,400 mg PO Q6H PRN (Reason: Constipation) Qty: 1000 0RF Continued alprazolam 0.25 mg tablet 0.25 mg PO BID PRN (Reason: anxiety) duloxetine 60 mg capsule,delayed release(DR/EC) 60 mg PO DAILY loratadine 10 mg tablet 10 mg PO Q24H aspirin [Dalton Chewable Aspirin] 81 mg tablet,chewable 81 mg PO DAILY carvedilol 12.5 mg tablet 12.5 mg PO Q12H gabapentin 100 mg capsule 200 mg PO Q12H hydrocodone-acetaminophen 7.5-325 mg tablet 1 tab PO Q6H PRN (Reason: severe pain (scale score 7-10)) levothyroxine 100 mcg tablet 100 mcg PO .ACB famotidine 20 mg tablet 20 mg PO DAILY lisinopril 5 mg tablet 5 mg PO DAILY Trelegy Ellipta 100-62.5-25 mcg blister with device 1 inh INHALATION Q24H ondansetron HCl 4 mg tablet 4 mg PO Q8H PRN (Reason: nausea and vomiting) 3 Days Qty: 9 0RF azithromycin [Zithromax Z-Dennis] 250 mg tablet See Rx Instructions .ROUTE .COMPLEX Qty: 6 0RF Rx Instructions: For 250 mg dose pack: take 500 mg today (day 1), then 250 mg for 4 days (days 2-5) Discontinued omeprazole 40 mg capsule,delayed release(DR/EC) 40 mg PO DAILY torsemide 20 mg tablet 20 mg PO QDAY furosemide 40 mg tablet 40 mg PO DAILY Print Language: Spanish Forms: Portal Instructions
[2024-10-04 07:37] VITALS: BP 153/77; PULSE 75; TEMP 36.7; O2SAT 97
[2024-10-04] MEDS: ASPIRIN 81 MG TAB.CHEW PO (08:37)
[2024-10-04] MEDS: GABAPENTIN 100 MG CAPSULE 200 MG PO (08:37)
[2024-10-04] MEDS: ALPRAZOLAM 0.25 MG TABLET PO (08:37)
[2024-10-04] MEDS: DOCUSATE SODIUM 100 MG CAPSULE 200 MG PO (08:37)
[2024-10-04] MEDS: SUCRALFATE 1 GM TABLET PO (08:37)
[2024-10-04] MEDS: DULOXETINE HCL 60 MG CAPSULE.DR PO (08:37)
[2024-10-04] MEDS: HYOSCYAMINE SULFATE 0.125 MG TAB.SUBL SL (08:38)
[2024-10-04] MEDS: ONDANSETRON PF 4 MG/2 ML VIAL IV (08:38)
[2024-10-04] MEDS: CETIRIZINE HCL 10 MG TABLET PO (08:38)
[2024-10-04] MEDS: CALCIUM CARBONATE 500 MG (200MG ELEMENTAL) TAB CHEW PO (08:38)
[2024-10-04] MEDS: LISINOPRIL 5 MG TABLET PO (08:38)
[2024-10-04] MEDS: CARVEDILOL 12.5 MG TABLET PO (08:40)
--- NOTE | 2024-10-04 08:42 | CM.NOTE ---
Rounds made with Dr. Graham, pt will discharge today if tolerates breakfast. Pt will discharge to skilled care at [facility].
--- NOTE | 2024-10-04 09:51 | SWNOTE1 ---
Pt medically stable for discharge today. DEVEN called and set up trips for 11:45-12:15. DEVEN notified [facility], nurse, and pt/pt's son of time. DEVEN faxed dc med rec, dc summary, and other updates to [facility]. DEVEN took packet out to the floor. DEVEN completed HENS online. Pt is going to [facility] skilled.
[2024-10-04] MEDS: BUDESONIDE 0.5 MG/2 ML AMPULE NEB IH (10:50)
[2024-10-04 10:51] VITALS: PULSE 76; O2SAT 98
[2024-10-04 10:55] VITALS: BMI 31.1
== END 2024-10-04 11:41 | DRG 194 ==
LOC: ER 12:27 → MS 15:14
PROVIDERS: Family Medicine; Admitting Provider Family Medicine; Emergency Provider Emergency Medicine; PCP Internal Medicine; Visit Provider Family Medicine
DX: J18.9 Pneumonia, unspecified organism (principal); I50.32 Chronic diastolic (congestive) heart failure; J44.0 Chronic obstructive pulmonary disease with (acute) lower respiratory infection; K59.01 Slow transit constipation; I25.10 Atherosclerotic heart disease of native coronary artery without angina pectoris; M48.061 Spinal stenosis, lumbar region without neurogenic claudication; I11.0 Hypertensive heart disease with heart failure; M16.11 Unilateral primary osteoarthritis, right hip; E11.9 Type 2 diabetes mellitus without complications; E03.9 Hypothyroidism, unspecified; K29.70 Gastritis, unspecified, without bleeding; D69.6 Thrombocytopenia, unspecified; R53.1 Weakness; D50.9 Iron deficiency anemia, unspecified; F41.9 Anxiety disorder, unspecified; Z66 Do not resuscitate; K80.20 Calculus of gallbladder without cholecystitis without obstruction; Z79.82 Long term (current) use of aspirin; Z79.890 Hormone replacement therapy; Z79.51 Long term (current) use of inhaled steroids; Z88.6 Allergy status to analgesic agent; Z87.891 Personal history of nicotine dependence
CPT/HCPCS: 36415; 51798; 71045; 74022; 74177; 76705; 80048; 80076; 81001; 82150; 83690; 83735; 84484; 85025; 87086; 93005; 94640; 96372; 96374; 96376; 97110; 97161; 97165; 97530; 99285; G0378; J1650; J2405; Q9967

== ENCOUNTER 2025-01-09 10:40 | Inpatient (IN) | payer MEDICARE, SELFPAY ==
--- OUTSIDE RECORDS SUMMARY | 2024-12-29 14:30 | XMS_ITS | Encounter Summary ---
Author Organization [facility] Address [address] [place] [address] Care Team Providers Care Policy Services Representative Name Role Phone Yossi Landers MD Primary Care Provider [phone] Yossi Landers MD Unavailable [phone] Daniela Alvarado LPN Unavailable Reason for Visit * Reason Comments vaginal pressure Pt present today to discuss vaginal pressure. Encounter Details Date Type Department Care Team (Late st Contact Info) Description 12/29/2024 2:30 PM EDT Office Visit [facility] [address] [place] [address] Yen Auguste PA [address] [place] [address] Vaginal discomfort Social History Tobacco Use Types Packs/Day Years Used Date Smoking Tobacco: Former Cigarettes Q uit: 10/27/2012 Smokeless Tobacco: Never Alcohol Use Standard Drinks/Week Comments Not Currently 0 (1 standard drink = 0.6 oz pure alcohol) caffeine intake: 2-3 cups per day of coffee B1300 Health Literacy Answer Date Recor ded How often do you need to hav e someone help you when you read instructions, pamphlets, or other written material from your doctor or pharmacy? Sometimes 02/09/2024 Humiliation, Afraid, Rape, and Kick questionnair e Answer Date Recorded Within the last year, have y ou been afraid of your partner or ex-partner? No 11/12/2022 Within the last year, have y ou been humiliated or emotionally abused in other ways by your partner or ex-partner? No Within the last year, have y ou been kicked, hit, slapped, or otherwise physically hurt by your partner or ex-partner? No 11/12/2022 Within the last year, have y ou been raped or forced to have any kind of sexual activity by your partner or ex-partner? No 11/12/2022 Social Connection and Isolat ion Panel [NHANES] Answer Date Recorded In a typical week, how many times do you talk on the phone with family, friends, or neighbors? More than three times a week 11/12/2022 How often do you get togethe r with friends or relatives? Once a week 11/12/2022 How often do you attend chur or anabaptism services? Never 11/12/2022 Do you belong to any clubs o r organizations such as mosque groups, unions, fraternal or athletic groups, or school groups? No 11/12/2022 How often do you attend meet ings of the clubs or organizations you belong to? Never 11/12/2022 Are you , , di vorced, , never , or living with a partner? 11/12/2022 AUDIT-C Answer Date Recorded Q1: How often do you have a drink containing alcohol? Never 02/09/2024 Q2: How many drinks containi ng alcohol do you have on a typical day when you are drinking? Patient does not drink Q3: How often do you have si x or more drinks on one occasion? Never 02/09/2024 Overall Financial Resource Strain (CARDIA) Answe r Date Recorded How hard is it for you to pa y for the very basics like food, housing, medical 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 Not very hard 11/12/2022 PHQ-2 Answer Date Recorded Patient Health Questionnaire-2 Score 0 11/07/2024 [facility] - Occupational Stress Questionnaire Answer Date Recorded Do you feel stress - tense, restless, nervous, or anxious, or unable to sleep at night because your mind is troubled all the time - these days? Not at all 11/12/2022 Exercise Vital Sign Answer Date Recorde d On average, how many days pe r week do you engage in moderate to strenuous exercise (like a brisk walk)? 0 days 11/12/2022 On average, how many minutes do you engage in exercise at this level? 0 min 11/12/2022 Hunger Vital Sign Answer Date Recorded Within the past 12 months, y ou worried that your food would run out before you got the money to buy more. Never true 11/13/19 23 Within the past 12 months, t he food you bought just didn't last and you didn't have money to get more. Never true 11/12/2022 PRAPARE - Transportation Answer Date Re corded In the past 12 months, has l ack of transportation kept you from medical appointments or from getting medications? No 10/21 In the past 12 months, has l ack of transportation kept you from meetings, work, or from getting things needed for daily living? No 11/12/2022 Housing Stability Vital Sign Answer Bravo e Recorded In the last 12 months, was t here a time when you were not able to pay the mortgage or rent on time? No 11/12/2022 In the last 12 months, how many places have you lived? 1 11/12/2022 In the last 12 months, was t here a time when you did not have a steady place to sleep or slept in a alf (including now)? No 11/12/2022 Comments Unknown Sex and Gender Information Value Date Recorded Sex Assigned at Not on file Legal Sex Female 6:57 PM EDT Gender Identity Not on file Sexual Orientation Not on file documented as of this encounter Last Filed Vital Signs Vital Sign Reading Time Taken Comments Blood Pressure 120/70 12/29/2024 2:43 PM EDT Pulse - - Temperature - - Respiratory Rate - - Oxygen Saturation - - Inhaled Oxygen Concentration - - Weight 75.4 kg (166 lb 1.9 oz) 12/29/2024 2:43 P M EDT Height - - Body Mass Index 27.64 11/07/2024 11:05 AM EDT documented in this encounter Progress Notes * PHILIP Solomon - 12/29/2024 2:30 PM EDT Reason for Appointment: Patient ID: Jaquelin Solis is a 84 y.o. female who presents for vaginal pressure (Pt present today todiscuss vaginal pressure.) Patient presents today for Vaginal pressure. MEDICATIONS Current Outpatient Medications Medication Instructions albuterol HFA (ProAir HFA) 90 mcg/act inhaler 2 puffs, Every 4 hours PRN albuterol 2.5 mg, Nebulization, Every 8 hours PRN ALPRAZolam (XANAX) 0.25 mg, Oral, 3 times daily PRN aspirin 81 mg, Every 24 hours atorvastatin (LIPITOR) 40 mg, Oral, Every morning Blood Glucose Monitoring Suppl (viaForensics ULTRA 2) w/Device kit Daily calcium carbonate (TUMS) 500 mg, Daily carvedilol (Coreg) 12.5 MG tablet TAKE 1 TABLET (12.5 MG) BY MOUTH IN THE MORNING AND 1 TABLET (12.5 MG) BEFORE BEDTIME. [facility] Stool Softener 100 mg, 2 times daily DULoxetine (CYMBALTA) 60 mg, Oral, Every morning famotidine (PEPCID) 20 mg, Oral, Daily Mwqjzclkuvw-Wvygtaqzz-Ayycam (Trelegy Ellipta) 100-62.5-25 MCG/ACT aerosol powder 1 puff, Inhalation, Daily gabapentin (NEURONTIN) 200 mg, Oral, 2 times daily glucose blood (True Metrix Blood Glucose Test) test strip 1 each, Every 24 hours HYDROcodone-acetaminophen (Martha) 7.5-325 MG tablet 1 tablet, Oral, Every 6 hours PRN Lancets (OneTouch Delica Plus [id number]) [facility] USE 1 LANCET TO TEST BLOOD SUGAR ONCE DAILY levothyroxine (SYNTHROID, LEVOXYL) 100 mcg, Oral, Daily before breakfast lisinopril 5 mg, Oral, Every morning loratadine (CLARITIN) 10 mg, Oral, Daily meclizine (ANTIVERT) 12.5 mg, 3 times daily PRN memantine (Namenda Titration Pack) 28 x 5 MG & 21 x 10 MG tablet pack USE DIRECTED FOR FIRSTMON. memantine (NAMENDA) 10 mg, Oral, 2 times daily Multiple Vitamins-Minerals (OCUVITE ADULT 50+ PO) Daily nitroglycerin (NITROSTAT) 0.4 mg, Every 5 min PRN nystatin (Mycostatin) ointment Every 12 hours omeprazole (PRILOSEC) 40 mg, Oral, Daily RT, Do not crush or chew. polyethylene glycol, PEG, 3350 (Glycolax, Miralax) powder 17 g, Daily PRN torsemide (DEMADEX) 10 mg, Oral, Daily ALLERGIES Allergies Allergen Reactions Aleve [Naproxen] Swelling mario oral edema Benztropine Mesylate Hallucinations Benztropine Other Vioxx [Rofecoxib] PROBLEMS Active Ambulatory Problems Diagnosis Date Noted Acquired hypothyroidism 11/04/2022 Ataxic gait 11/04/2022 Bilateral carotid artery stenosis 11/04/2022 Cardiomyopathy (HCC) 11/04/2022 Chronic allergic rhinitis 11/04/2022 Chronic combined systolic and diastolic congestive heart failure (HCC) 11/04/2022 Chronic constipation 11/04/2022 Coronary artery disease 11/04/2022 Degenerative lumbar spinal stenosis 11/04/2022 Depression with anxiety 11/04/2022 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[facility]) 11/04/2022 Essential hypertension 11/04/2022 Extrapyramidal symptom 11/04/2022 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) 11/04/2022 Gastroesophageal reflux disease 11/04/2022 Hypertensive heart disease with congestive heart failure and chronic kidney disease (HCC) 11/04/2022 LVH (left ventricular hypertrophy) 11/04/2022 Cognitive impairment 11/04/2022 Mixed hyperlipidemia 11/04/2022 Moderate recurrent major depression (HCC) 11/04/2022 Multinodular goiter 11/04/2022 Neuropathy 11/04/2022 Nontoxic single thyroid nodule 11/04/2022 OAB (overactive bladder) 11/04/2022 Obesity (BMI 30-39.9) 11/04/2022 Peripheral vascular disease 11/04/2022 Polyosteoarthritis 11/04/2022 Primary osteoarthritis of left knee 11/04/2022 Primary osteoarthritis of right knee 11/04/2022 Chronic obstructive pulmonary disease (HCC) 11/04/2022 Pulmonary emphysema ([facility]) 11/04/2022 Type 2 diabetes mellitus with diabetic neuropathy, without long-term current use of insulin (HCC) 11/04/2022 Ataxia 10/23/2017 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) 02/23/2019 Acute on chronic diastolic heart failure ([facility]) 03/14/2020 Cardiomegaly 04/30/2015 Abnormality of rectum 08/10/2023 Sore throat 10/26/2023 Symptomatic cholelithiasis 01/20/2024 Nausea 09/29/2024 Bilateral lower extremity edema 10/07/2024 Resolved Ambulatory Problems Diagnosis Date Noted Former smoker 08/15/2017 Morbid obesity ([facility]) 07/04/2019 Chronic combined systolic and diastolic heart failure (HCC) 04/30/2015 Acute exacerbation of chronic obstructive pulmonary disease (HCC) 07/16/2016 Past Medical History: Diagnosis Date Anxiety state Chronic airway obstruction (HCC) Chronic back pain Depressive disorder Diabetes mellitus without complication ([facility]) Encephalopathy 10/14/2022 Essential hypertension, benign H/O being hospitalized 02/20/2020 History of echocardiogram 02/21/2020 Hyperlipidemia, unspecified Hypertonicity of bladder Left thyroid nodule Osteoarthrosis Peripheral vascular disease, unspecified Unspecified combined systolic (congestive) and diastolic (congestive) heart failure (HCC) HISTORY PAST MEDICAL HISTORY SOCIAL HISTORY Past Medical History: Diagnosis Date Acquired hypothyroidism Acute exacerbation of chronic obstructive pulmonary disease (HCC) 07/16/2016 Anxiety state Cardiomegaly Chronic airway obstruction (HCC) Chronic back pain spinal stenosis Depressive disorder Diabetes mellitus without complication (HCC) Diabetes mellitus without mention of complication, type II or unspecified type, not stated as uncontrolled Encephalopathy 10/14/2022 Essential hypertension, benign Former smoker 08/15/2017 H/O being hospitalized 02/20/2020 Resp. Distress, Hypoxia, JONE, LLL Pneumonia, Sepsis History of echocardiogram 02/21/2020 ECHO EF 65-70% Lt [facility] Severely Dilated (02/21/2020) Hyperlipidemia, unspecified Hypertonicity of bladder Left thyroid nodule Morbid obesity ([facility]) 07/04/2019 Osteoarthrosis Peripheral vascular disease, unspecified Unspecified combined systolic (congestive) and diastolic (congestive) heart failure (HCC) Social History Tobacco Use Smoking status: Former Current packs/day: 0.00 Types: Cigarettes Quit date: 10/27/2012 Years since quittin.1 Smokeless tobacco: Never Vaping Use Vaping status: Never Used Substance Use Topics Alcohol use: Not Currently Comment: caffeine intake: 2-3 cups per day of coffee Drug use: Not Currently FAMILY HISTORY Family History Problem Relation Name Age of Onset Heart failure Mother Diabetes Mother Cancer Mother Heart disease Mother Cancer Father Diabetes Sister Heart disease Brother SURGICAL HISTORY Past Surgical History: Procedure Laterality Date BACK SURGERY repair herniated disc COLONOSCOPY 2010 COLONOSCOPY W/ POLYPECTOMY 03/08/2024 EGD 02/03/2024 W/ Esophageal Dilation FLEXIBLE SIGMOIDOSCOPY 02/03/2024 FNA W IMAGING GUIDANCE thyroid 03/22/19, 07/08/21 HYSTERECTOMY OTHER SURGICAL HISTORY 01/15/2001 LT common iliac artery stent, Dr. Cortes OTHER SURGICAL HISTORY 09/22/2003 LT SFA stent, Dr. Cortes THYROID SURGERY partial thyroidectomy REVIEW OF SYSTEMS Review of Systems: Review of Systems Respiratory: Positive for shortness of breath. History of emphysema, chronically dyspneic Genitourinary: Positive for difficulty urinating and pelvic pain. All other systems reviewed and are negative. OBJECTIVE Objective: Physical Exam Constitutional: Appearance: Normal appearance. She is well-developed. Genitourinary: Vulva normal. Genitourinary Comments: Bladder Prolapse Vaginal cuff intact. Cervix is absent. Uterus is absent. Bladder exam comments: prolapsed. Cardiovascular: Rate and Rhythm: Normal rate and regular rhythm. Abdominal: General: Bowel sounds are normal. There is no distension. Palpations: Abdomen is soft. Tenderness: There is no abdominal tenderness. There is no guarding or rebound. Musculoskeletal: General: No swelling. Normal range of motion. Right lower leg: No edema. Left lower leg: No edema. Neurological: Mental Status: She is alert and oriented to person, place, and time. Skin: General: Skin is warm and dry. Psychiatric: Mood and Affect: Mood normal. Behavior: Behavior normal. Vitals and nursing note reviewed. Exam conducted with a customer service leader present. Vitals: Estimated body mass index is 27.64 kg/m?? as calculated from the following: Height as of 11/07/24: 5' 5 . Weight as of this encounter: 166 lb 1.9 oz. BP: 120/70 No LMP recorded. ASSESSMENT & PLAN ICD-10-CM 1. Vaginal discomfort N94.9 Patient pressures with vaginal pressure concerns with feeling something is down there. Discussed with patient and family member need for referral to be sent to Dr. Amaris Mejias for fitting of a pessary. Discussed with patient that due to her health issues she would not be a candidate for surgical management and that a pessary fitting would be recommended. Patient is good with referral being sent to Specialist and once she is fitted for Pessary and would then like to have follow uppessary maintenance locally with provider in office (Yen Auguste PA-C). Patient and family aware that referral will be sent and VU about process, they will reach out to office with any further questions/concerns and will setup 3 month Pessary cleaning after device is placed by Specialist. Documented by Davida Miranda MA/Janey Barry LPN on behalf of: PHILIP Solomon documented in this encounter Plan of Treatment Not on file documented as of this encounter Visit Diagnoses Diagnosis Vaginal discomfort documented in this encounter Care Teams Policy Services Representative Relationship Specialty Start Date End Date Yossi Landers MD [address] [facility] [address] [place] [address] PCP - General Internal Medicine 11/03/22 Yossi Landers MD [address] [address] [place] [address] PCP - [employer] 11/20/22 Daniela Alvarado LPN [address] [facility] [address] [place] [address] 09/09/24 documented as of this encounter
[2025-01-09] VITALS (33 sets, daily range): BP systolic 128–192; BP diastolic 67–107; PULSE 20–92; TEMP 36.4–36.9; O2SAT 96–100; BMI 33.1; BMI 36.3
--- OUTSIDE RECORDS SUMMARY | 2025-01-09 10:00 | XMS_ITS | Encounter Summary ---
Author Organization [facility] Address [address] [place] [address] Care Team Providers Care Fiber Technician Name Role Phone Yossi Landers MD Primary Care Provider [phone] Yossi Landers MD Unavailable [phone] Daniela Alvarado LPN Unavailable Encounter Details Date Type Department Care Team (Late st Contact Info) Description 01/09/2025 10:00 AM EDT Office Visit [facility] [address] [facility] 110 [place] [id number] Yossi Landers MD 112 [facility] 110 [place], [place] [id number] Acute on chronic combined systolic and diastolic [...] week 11/12/2022 How often do you attend [facility] or mandaen services? Never 11/12/2022 Do you belong to any clubs o r organizations such as zoroastrian groups, unions, fraternal or athletic groups, or [...] Recorded Patient Health Questionnaire-2 Score 2 01/09/2025 [facility] of Occupat ional Health - Occupational Stress [...] place to sleep or slept in a usp (including now)? No 11/12/2022 Comments Unknown Sex [...] BY MOUTH EVERY DAY 100 tablet 3 Ncizttvsfxu-Hiyabidci-Foxiem (Trelegy Ellipta) 100-62.5-25 MCG/ACT aerosol powder Inhale 1 puff Daily 3 each 3 gabapentin (Neurontin) 100 MG capsule Take 2 capsules (200 mg) by mouth in the morning and 2 capsules (200 mg) before bedtime. 360 capsule 3 glucose blood (True Metrix Blood Glucose Test) test strip 1 each by Other route 1 (one) time each day at the same time. [] HYDROcodone-acetaminophen ([place]) 7.5-325 MG tablet Take 1 tablet by mouth every 6 (six) hours if needed for severe pain 120 tablet 0 Lancets (OneTouch Delica Plus [id number]) [facility] USE 1 LANCET TO TEST BLOOD SUGAR [...] of bladder Left thyroid nodule Morbid obesity ([facility]) 07/04/2019 Osteoarthrosis Peripheral vascular disease, unspecified Unspecified combined systolic (congestive) and diastolic (congestive) heart failure (HCC) Past Surgical History: Procedure Laterality Date BACK [...] (HCC) documented in this encounter Care Teams Fiber Technician Relationship Specialty Start Date End Date Yossi Landers MD [address] [facility] 110 [place] [address] PCP - General Internal Medicine 11/03/22 Yossi Landers MD [address] [facility] 110 [place] [address] PCP - [employer] 11/20/22 Daniela Alvarado LPN [address] [facility] [address] [place] [address] 09/09/24 documented as of this encounter
--- OUTSIDE RECORDS SUMMARY | 2025-01-09 10:46 | XMS_ITS | Encounter Summary ---
Author Organization [facility] Address [address] [place] [address] Care Team Providers Care Prestressed Concrete Laborer Name Role Phone Yossi Landers MD Primary Care Provider Yossi Landers MD Unavailable [phone] Seble Mejia RN Unavailable Daniela Alvarado LPN Unavailable Encounter Details Date Type Department Care Team (Late st Contact Info) Description 03/29/2024 Abstract [facility] 112 [facility] 110 [place] [address] Yossi Landers MD 112 [facility] 110 [place], [place] [id number] Social History Tobacco Use Types Packs/Day Years [...] How often do you attend chur or synagogue services? Never 11/12/2022 Do you belong to any clubs o r organizations such as sabianist groups, unions, fraternal or athletic groups, or [...] Date Recorded Patient Health Questionnaire-2 Score 0 10/12/2023 [facility] of Occupat ional Health - Occupational Stress [...] money to buy more. Never true 11/13/19 Within the past 12 months, t he [...] No 11/12/2022 Housing Stability Vital Sign Answer Rbavo e Recorded In the last 12 months, [...] place to sleep or slept in a half-way (including now)? No 11/12/2022 Comments Unknown Sex and Gender Information Value Date Recorded Sex Assigned at Not on file Legal Sex Female 6:57 PM EDT Gender Identity Not on file Sexual Orientation Not on file documented as of this encounter Plan of Treatment Not on file documented as of this encounter Visit Diagnoses Not on filedocumented in this encounter Care Teams Prestressed Concrete Laborer Relationship Specialty Start Date End Date Yossi Landers MD [address] [facility] 110 [place] [address] PCP - General Internal Medicine 11/03/22 Yossi Landers MD [address] [place] [address] PCP - [employer] 11/20/22 Seble Mejia, RN [address] [place] [address] Clinical [facility] 07/29/24 09/09/24 Daniela Alvarado LPN 112 [facility] 110 [place] [address] 09/09/24 documented as of this encounter
--- OUTSIDE RECORDS SUMMARY | 2025-01-09 10:46 | XMS_ITS | Encounter Summary ---
Author Organization [facility] Address [address] [place] [address] Care Team Providers Care Eyedotter Name Role Phone Yossi Landers MD Primary Care Provider Yossi Landers MD Unavailable [phone] Seble Mejia RN Unavailable Daniela Alvarado LPN Unavailable Encounter Details Date Type Department Care Team (Late st Contact Info) Description 03/27/2023 Abstract [facility] 112 [facility] 110 [place] [phone] Yossi Landers MD 112 [facility] 110 [place], [place] [id number] Social History Tobacco Use Types Packs/Day Years Used Date Smoking Tobacco: Former Cigarettes Q uit: 10/27/2012 Smokeless Tobacco: Never Alcohol Use Standard Drinks/Week Comments Not Currently 0 (1 standard drink = 0.6 oz pur e alcohol) Humiliation, Afraid, Rape, and Kick questionnair e [...] 11/12/2022 How often do you attend chur ch or hoahaoism services? Never 11/12/2022 Do you belong to any clubs o r organizations such as holiness groups, unions, fraternal or athletic groups, or school groups? No 11/12/2022 How often do you attend meet ings of the clubs or organizations you belong to? Never 11/12/2022 Are you , , di vorced, , never , or living with a partner? 11/12/2022 Overall Financial Resource Strain (CARDIA) Answe r Date Recorded How hard is it for you to pa y for the very basics like food, housing, medical 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 Not very hard 11/12/2022 PHQ-2 Answer Date Recorded Patient Health Questionnaire-2 Score 0 02/09/2023 [facility] of Occupat ional Health - Occupational Stress [...] place to sleep or slept in a longterm (including now)? No 11/12/2022 Comments Unknown Sex and Gender Information Value Date Recorded Sex Assigned at Not on file Legal Sex Female 6:57 PM EDT Gender Identity Not on file Sexual Orientation Not on file documented as of this encounter Plan of Treatment Not on file documented as of this encounter Visit Diagnoses Not on filedocumented in this encounter Care Teams Eyedotter Relationship Specialty Start Date End Date Yossi Landers MD [address] [facility] 110 [place] [address] PCP - General Internal Medicine 11/03/22 Yossi Landers MD [address] [facility] 110 [place] [address] PCP - [employer] 11/20/22 Seble Mejia, CIPRIANO [address] [place] [address] Clinical [facility] 07/29/24 09/09/24 Daniela Alvarado LPN [address] [facility] 110 [place] [address] 09/09/24 documented as of this encounter
--- OUTSIDE RECORDS SUMMARY | 2025-01-09 10:47 | XMS_ITS | Encounter Summary ---
Author Organization [facility] Address [address] [place] [address] Care Team Providers Care Pocket Closer Name Role Phone Yossi Landers MD Primary Care Provider [phone] Yossi Landers MD Unavailable [phone] Seble Mejia RN Unavailable [phone] Daniela Alvarado LPN Unavailable Encounter Details Date Type Department Care Team (Late st Contact Info) Description 02/23/2024 Abstract [facility] [address] [facility] 110 [place] [address] Yossi Landers MD 112 [facility] 110 [place], [place] [id number] Social History Tobacco Use Types Packs/Day Years [...] How often do you attend chur or latter-day services? Never 11/12/2022 Do you belong to any clubs o r organizations such as denominational groups, unions, fraternal or athletic groups, or [...] Recorded Patient Health Questionnaire-2 Score 0 10/12/2023 [facility] of Occupat ional Health - Occupational Stress [...] place to sleep or slept in a care home (including now)? No 11/12/2022 Comments Unknown Sex and Gender Information Value Date Recorded Sex Assigned at Not on file Legal Sex Female 6:57 PM EDT Gender Identity Not on file Sexual Orientation Not on file documented as of this encounter Plan of Treatment Not on file documented as of this encounter Visit Diagnoses Not on filedocumented in this encounter Care Teams Pocket Closer Relationship Specialty Start Date End Date Yossi Landers MD [address] [facility] 110 [place] [address] PCP - General Internal Medicine 11/03/22 Yossi Landers MD [address] [place] [address] PCP - [employer] 11/20/22 Seble Mejia, RN [address] [place] [address] [place] [address] [facility] 07/29/24 09/09/24 Daniela Alvarado LPN 112 [facility] 110 [place] [address] 09/09/24 documented as of this encounter
--- OUTSIDE RECORDS SUMMARY | 2025-01-09 10:47 | XMS_ITS | Encounter Summary ---
Author Organization [facility] Address [address] [place] [address] Care Team Providers Care Supervisor Fryer Farm Name Role Phone Yossi Landers MD Primary Care Provider Yossi Landers MD Unavailable [phone] Seble Mejia RN Unavailable Daniela Alvarado LPN Unavailable Encounter Details Date Type Department Care Team (Late st Contact Info) Description 01/04/2024 Abstract [facility] 112 [facility] 110 [place] [address] Yossi Landers MD 112 [facility] 110 [place] [address] Social History Tobacco Use Types Packs/Day Years Used Date Smoking Tobacco: Former Cigarettes Q uit: 10/27/2012 Smokeless Tobacco: Never Alcohol Use Standard Drinks/Week Comments Not Currently 0 (1 standard drink = 0.6 oz pure alcohol) caffeine intake: 2-3 cups per day of coffee Humiliation, Afraid, Rape, and Kick questionnair e [...] often do you attend chur ch or latter day services? Never 11/12/2022 Do you belong to [...] Recorded Patient Health Questionnaire-2 Score 0 10/12/2023 [facility] of Occupat ional Health - Occupational Stress [...] place to sleep or slept in a custodial (including now)? No 11/12/2022 Comments Unknown Sex and Gender Information Value Date Recorded Sex Assigned at Not on file Legal Sex Female 6:57 PM EDT Gender Identity Not on file Sexual Orientation Not on file documented as of this encounter Plan of Treatment Not on file documented as of this encounter Visit Diagnoses Not on filedocumented in this encounter Care Teams Supervisor Fryer Farm Relationship Specialty Start Date End Date Yossi Landers MD [address] [facility] [address] [place] [address] PCP - General Internal Medicine 11/03/22 Yossi Landers MD [address] [facility] [place] [address] PCP - [employer] 11/20/22 Seble Mejia, RN [address] [place] [address] [facility] 07/29/24 09/09/24 Daniela Alvarado LPN [address] [facility] [place] [address] 09/09/24 documented as of this encounter
--- OUTSIDE RECORDS SUMMARY | 2025-01-09 10:47 | XMS_ITS | Encounter Summary ---
Author Organization [facility] Address [address] [place] [address] Care Team Providers Care Broadcast Technician Name Role Phone Yossi Landers MD Primary Care Provider Yossi Landers MD Unavailable [phone] Seble Mejia RN Unavailable [phone] Daniela Alvarado LPN Unavailable Encounter Details Date Type Department Care Team (Late st Contact Info) Description 03/04/2023 Abstract [facility] [address] [facility] 110 [place] [id number] Yossi Landers MD 112 [facility] 110 [place], [place] [id number] Social History Tobacco Use Types Packs/Day Years [...] often do you attend chur ch or worship services? Never 11/12/2022 Do you belong to any clubs o r organizations such as mandaen groups, unions, fraternal or athletic groups, or [...] Recorded Patient Health Questionnaire-2 Score 0 02/09/2023 [facility] [place] of Occupat ional Health - Occupational Stress [...] place to sleep or slept in a residential (including now)? No 11/12/2022 Comments Unknown Sex and Gender Information Value Date Recorded Sex Assigned at Not on file Legal Sex Female 6:57 PM EDT Gender Identity Not on file Sexual Orientation Not on file COVID-19 Exposure Response Date Recorded In the last 10 days, have yo u been in contact with someone who was confirmed or suspected to have Coronavirus/COVID-19? No / Unsure 02/09/2023 12:11 PM EDT documented as of this encounter Plan of Treatment Not on file documented as of this encounter Visit Diagnoses Not on filedocumented in this encounter Care Teams Broadcast Technician Relationship Specialty Start Date End Date Yossi Landers MD [address] [facility] 110 [place] [address] PCP - General Internal Medicine 11/03/22 Yossi Landers MD [address] [facility] 110 [place] [address] PCP - [employer] 11/20/22 Seble Mejia RN [address] [place] [address] [facility] 07/29/24 09/09/24 Daniela Alvarado LPN [address] [facility] 110 [place] [address] 09/09/24 documented as of this encounter
--- OUTSIDE RECORDS SUMMARY | 2025-01-09 10:47 | XMS_ITS | Encounter Summary ---
Author Organization [facility] Address [address] [place] [address] Care Team Providers Care Business Unit Director Name Role Phone Yossi Landers MD Primary Care Provider Yossi Landers MD Unavailable [phone] Seble Mejia RN Unavailable [phone] Daniela Alvarado LPN Unavailable Encounter Details Date Type Department Care Team (Late st Contact Info) Description 03/23/2024 Abstract [facility] 112 [facility] 110 [place] [address] Yossi Landers MD 112 [facility] 110 [place], [place] [id number] Social History Tobacco Use Types Packs/Day Years [...] How often do you attend chur or adventist services? Never 11/12/2022 Do you belong to any clubs o r organizations such as anabaptist groups, unions, fraternal or athletic groups, or [...] Recorded Patient Health Questionnaire-2 Score 0 10/12/2023 [facility] [place] of Occupat ional Health - Occupational Stress [...] place to sleep or slept in a fci (including now)? No 11/12/2022 Comments Unknown Sex and Gender Information Value Date Recorded Sex Assigned at Not on file Legal Sex Female 6:57 PM EDT Gender Identity Not on file Sexual Orientation Not on file documented as of this encounter Plan of Treatment Not on file documented as of this encounter Visit Diagnoses Not on filedocumented in this encounter Care Teams Business Unit Director Relationship Specialty Start Date End Date Yossi Landers MD [address] [facility] 110 [place] [address] PCP - General Internal Medicine 11/03/22 Yossi Landers MD [address] [facility] [address] [place] [address] PCP - [employer] 11/20/22 Seble Mejia, RN [address] [place] [address] Clinical Advocate Family Medicine 07/29/24 09/09/24 Daniela Alvarado LPN 112 [facility] 110 [place] [address] 09/09/24 documented as of this encounter
--- OUTSIDE RECORDS SUMMARY | 2025-01-09 10:47 | XMS_ITS | Encounter Summary ---
Author Organization [facility] Address [address] [place] [address] Care Team Providers Care Blast Furnace Checker Name Role Phone Yossi Landers MD Primary Care Provider [phone] Yossi Landers MD Unavailable [phone] Daniela Alvarado LPN Unavailable Reason for Referral * Medications - Closed Specialty Diagnoses / Procedures Referred By Contac t Referred To Contact Diagnoses Gastroesophageal reflux disease without esophagitis Salud Roach PA [address] [facility] [facility] 110 [place] [address] Phone: tel: fax: Referral ID Status Reason Start Date Expiration Date Visits Re quested Visits Authorized [id number] Closed 1 1 Reason for Visit * Reason Comments Med Refill Encounter Details Date Type Department Care Team (Late st Contact Info) Description 01/08/2025 Refill [facility] [address] [facility] 110 [place] [address] Yossi Landers MD [address] [facility] 110 [place], [place] [id number] Acquired hypothyroidism ; Gastroesophageal reflux disease without esophagitis; Mixed hyperlipidemia ; Essential hypertension ; Depression with anxiety; Chronic combined systolic and diastolic congestive heart failure (HCC) Social History Tobacco Use Types Packs/Day [...] How often do you attend chur or gnosticist services? Never 11/12/2022 Do you belong to any clubs o r organizations such as roman catholic groups, unions, fraternal or athletic groups, or [...] Recorded Patient Health Questionnaire-2 Score 2 01/09/2025 [facility] of Occupat ional Health - Occupational [...] on file documented as of this encounter Miscellaneous Notes * Telephone Encounter - PHILIP Magallanes - 01/09/2025 8:07 AM EDT Meds sent. documented in this encounter Plan of Treatment Not on file documented as of this encounter Visit Diagnoses Diagnosis Acquired hypothyroidism Unspecified hypothyroidism Gastroesophageal reflux disease without esophagitis Esophageal reflux Mixed hyperlipidemia Mixed hyperlipidemia Essential hypertension Unspecified essential hypertension Depression with anxiety Dysthymic disorder Chronic combined systolic and diastolic congestive heart failure (HCC) documented in this encounter Care Teams Blast Furnace Checker Relationship Specialty Start Date End Date Yossi Landers MD [address] [facility] 110 [place] [address] PCP - General Internal Medicine 11/03/22 Yossi Landers MD [address] [facility] 110 [place] [address] PCP - [employer] 11/20/22 Daniela Alvarado LPN [address] [facility] 110 [place] [address] 09/09/24 documented as of this encounter
--- OUTSIDE RECORDS SUMMARY | 2025-01-09 10:47 | XMS_ITS | Encounter Summary ---
Author Organization [facility] Address [address] [place] [address] Care Team Providers Care Inspector Salvage Name Role Phone Yossi Landers MD Primary Care Provider Yossi Landers MD Unavailable [phone] Seble Mejia RN Unavailable [phone] Daniela Alvarado LPN Unavailable Encounter Details Date Type Department Care Team (Late st Contact Info) Description 12/18/2022 Abstract [facility] [address] [facility] 110 [place] [id number] Yossi Landers MD 112 [facility] 110 [place], [place] [address] Social History Tobacco Use Types Packs/Day Years [...] often do you attend chur ch or denominational services? Never 11/12/2022 Do you belong to [...] 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 Not very hard 11/12/2022 [facility] [place] of Occupat ional Health - Occupational Stress [...] place to sleep or slept in a fdc (including now)? No 11/12/2022 Comments Unknown Sex [...] suspected to have Coronavirus/COVID-19? No / Unsure 12/17/2022 3:11 PM EDT documented as of this encounter Plan of Treatment Not on file documented as of this encounter Visit Diagnoses Not on filedocumented in this encounter Care Teams Inspector Salvage Relationship Specialty Start Date End Date Yossi Landers MD [address] [facility] 110 [place] [address] PCP - General Internal Medicine 11/03/22 Yossi Landers MD [address] [facility] [address] [place] [address] PCP - [employer] 11/20/22 Seble Mejia, CIPRIANO [address] [place] [address] Clinical Advocate Family Medicine 07/29/24 09/09/24 Daniela Alvarado LPN [address] [facility] [place] [address] 09/09/24 documented as of this encounter
--- OUTSIDE RECORDS SUMMARY | 2025-01-09 10:47 | XMS_ITS | Encounter Summary ---
Author Organization [facility] Address [address] [facility] [place] [address] Care Team Providers Care Vending Route Driver Name Role Phone Yossi Landers MD Primary Care Provider Yossi Landers MD Unavailable [phone] Seble Mejia RN Unavailable Daniela Alvarado LPN Unavailable Encounter Details Date Type Department Care Team (Late st Contact Info) Description 12/11/2022 Abstract [facility] [address] [facility] 110 [place] [address] Yossi Landers MD 112 [facility] 110 [place] [address] Social History Tobacco Use Types Packs/Day Years Used Date Smoking Tobacco: Former Cigarettes Q uit: 10/27/2012 Smokeless Tobacco: Never Humiliation, Afraid, Rape, and Kick questionnair e [...] often do you attend chur ch or gnosticism services? Never 11/12/2022 Do you belong to any clubs o r organizations such as worship groups, unions, fraternal or athletic groups, or [...] 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 Not very hard 11/12/2022 [facility] of Occupat ional Health [...] place to sleep or slept in a nursing home (including now)? No 11/12/2022 Comments Unknown [...] suspected to have Coronavirus/COVID-19? No / Unsure 11/12/2022 3:56 PM EDT documented as of this encounter Plan of Treatment Not on file documented as of this encounter Visit Diagnoses Not on filedocumented in this encounter Care Teams Vending Route Driver Relationship Specialty Start Date End Date Yossi Landers MD [address] [facility] 110 [place] [address] PCP - General Internal Medicine 11/03/22 Yossi Landers MD [address] [facility] 110 [place] [address] PCP - [employer] 11/20/22 Seble Mejia, CIPRIANO [address] [place] [address] Clinical [facility] Family Medicine 07/29/24 09/09/24 Daniela Alvarado LPN [address] [facility] 110 [place] [address] 09/09/24 documented as of this encounter
--- OUTSIDE RECORDS SUMMARY | 2025-01-09 10:47 | XMS_ITS | Encounter Summary ---
Author Organization [facility] Address [address] [facility] [place] [address] Care Team Providers Care Tour Actor Name Role Phone Yossi Landers MD Primary Care Provider [phone] Yossi Landers MD Unavailable [phone] Seble Mejia RN Unavailable [phone] Dnaiela Alvarado LPN Unavailable Encounter Details Date Type Department Care Team (Late st Contact Info) Description 06/01/2023 Clinisync Result Encounter [facility] External Department Unsolicited Provider, Generic External Data Social History Tobacco Use Types Packs/Day Years [...] often do you attend chur ch or bahai services? Never 11/12/2022 Do you belong to any clubs o r organizations such as orthodoxy groups, unions, fraternal or athletic groups, or [...] Recorded Patient Health Questionnaire-2 Score 0 02/09/2023 [facility] of Occupat ional [facility] - Occupational Stress Questionnaire Answer Date Recorded [...] suspected to have Coronavirus/COVID-19? No / Unsure 05/11/2023 9:57 AM EST documented as of this encounter Plan of Treatment Not on file documented as of this encounter Procedures Procedure Name Priority Date/Time Associated Diagnosis Comments US THYROID 06/01/2023 10:38 AM EST documented in this encounter Results * US thyroid (06/01/2023 10:38 AM EST) Anatomical Region Laterality Modality Head, Neck Ultrasound 06/01/2023 10:3 8 AM EST Narrative 06/01/2023 10:40 [place] [address] Ultrasound Report Signed Patient: Jaquelin Norwood MR#: [id number] : 1940 Acct:[id number] Age/Sex: 83 / F ADM Date: 06/01/23 Loc: US Attending Dr: Bel Dominique M.D. Ordering Physician: Bel Dominique M.D. Date of Service: 06/01/23 Procedure(s): US thyroid Accession Number(s): [id number] cc: YOSSI LANDERS ; Bel Dominique M.D. The [address] [address] Patient Name: JAQUELIN NORWOOD MRN: [id number] date: 1940 Sex: F Assigned Patient Location: US Current Patient Location: US Accession/Order Number: [id number] Exam Date: 06/01/2023 09:55 Report Date: 06/01/2023 10:38 At the request of: BEL DOMINIQUE Procedure: US thyroid EXAMINATION: US thyroid HISTORY: Multinodular Goiter E04.2 COMPARISON: 12/08/2022 on 05/29/2022 TECHNIQUE: Sonographic images of the thyroid gland were obtained. FINDINGS: The right thyroid lobe is surgically absent. Again demonstrated is a small area of hyperechogenicity in the right thyroid fossa measuring 4.7 x 3.3 x 2.2 mm, stable. The thyroid isthmus measures 3.5 mm, heterogeneous. No focal nodule. The left thyroid lobe measures 3.3 x 1.2 x 1.7 cm. Heterogeneous echotexture. 3 focal nodules one measuring over 1 cm 1.4 x 1.1 x 0.9 cm. Mixed solid and cystic, hypoechoic, wide, smooth margins, punctate calcifications. TR 4 US/US thyroid IMPRESSION: 1.4 cm left thyroid TR 4 nodule, stable from the prior exam, minimally enlarged from the May 2022 exam TI-RADS: The [employer] TI-RADS committee's white paper recommendations for thyroid lesions classified as TR4 (moderately suspicious) are listed below: > 1.0 cm. Follow-up ultrasound in 1, 2, 3, and 5 years. > 1.5 cm. FNA. J. Am Nikunj Radiol 2017;14:587-595. Electronically authenticated by: CARLOS SOOD Date: 06/01/2023 10:38 Dictated By: Carlos Sood M.D. Signed By: 06/01/23 1040 DD/ 1038 TD/TT: Retail Sales Associate: Procedure Note Radiology, Radiologist, - 06/01/2023 [place] [address] Ultrasound Report Signed Patient: Jaquelin Norwood JMR#: [id number] : 1940cct:[id number] Age/Sex: 83 / FADM Date: 06/01/23 Loc: US Attending Dr: Bel Dominique M.D. Ordering Physician: Bel Dominique M.D. Date of Service: 06/01/23 Procedure(s): US thyroid Accession Number(s): [id number] cc: YOSSI LANDERS ; Bel Dominique M.D. [place] [id number] Patient Name: JAQUELIN NORWOOD MRN: [id number] date: 1940 Sex: F Assigned Patient Location: US Current Patient Location: US Accession/Order Number: [id number] Exam Date: 06/01/2023 09:55 Report Date: 06/01/2023 10:38 At the request of: BEL DOMINIQUE Procedure: US thyroid EXAMINATION: US thyroid HISTORY: Multinodular Goiter E04.2 COMPARISON: 12/08/2022 on 05/29/2022 TECHNIQUE: Sonographic images of the thyroid gland were obtained. FINDINGS: The right thyroid lobe is surgically absent. Again demonstrated is a small area of hyperechogenicity in the right thyroid fossa measuring 4.7 x 3.3 x 2.2mm, stable. The thyroid isthmus measures 3.5 mm, heterogeneous. No focal nodule. The left thyroid lobe measures 3.3 x 1.2 x 1.7 cm. Heterogeneousechotexture. 3 focal nodules one measuring over 1 cm 1.4 x 1.1 x 0.9 cm. Mixed solid and cystic, hypoechoic, wide, smoothmargins, punctate calcifications. TR 4 US/US thyroid IMPRESSION: 1.4 cm left thyroid TR 4 nodule, stable from the prior exam, minimally enlarged from the May 2022 exam TI-RADS: The [employer] TI-RADS committee's white paper recommendations for thyroid lesions classified as TR4 (moderatelysuspicious) are listed below: > 1.0 cm. Follow-up ultrasound in 1, 2, 3, and 5 years. > 1.5 cm. FNA. J. Am Nikunj Radiol 2017;14:587-595. Electronically authenticated by: CARLOS SOOD Date: 06/01/2023 10:38 Dictated By: Carlos Sood M.D. Signed By:06/01/23 1040 DD/ 1038 TD/TT: Retail Sales Associate: us Generic External Data Provider IMG US PROCEDURES Final Result documented in this encounter Visit Diagnoses Not on filedocumented in this encounter Care Teams Tour Actor Relationship Specialty Start Date End Date Yossi Landers MD [address] [facility] 110 [place] [address] PCP - General Internal Medicine 11/03/22 Yossi Landers MD [address] [facility] 110 [place] [address] PCP - [employer] 11/20/22 Seble Mejia, RN [address] [place] [address] Clinical Advocate Family Medicine 07/29/24 09/09/24 Daniela Alvarado LPN [address] [facility] 110 [place] [address] 09/09/24 documented as of this encounter
--- OUTSIDE RECORDS SUMMARY | 2025-01-09 10:47 | XMS_ITS | Encounter Summary ---
Author Organization [facility] Address [address] [place] [address] Care Team Providers Care Structural Test Engineer Name Role Phone Yossi Landers MD Primary Care Provider [phone] Yossi Landers MD Unavailable [phone] Seble Mejia RN Unavailable Daniela Alvarado LPN Unavailable Encounter Details Date Type Department Care Team (Late st Contact Info) Description 02/25/2023 Abstract [facility] 112 [facility] 110 [place] [id number] Yossi Landers MD 112 [facility] 110 [place], [place] [address] Social History Tobacco Use Types Packs/Day Years [...] often do you attend chur ch or jehovah's witness services? Never 11/12/2022 Do you belong to any clubs o r organizations such as mandaeism groups, unions, fraternal or athletic groups, or [...] Recorded Patient Health Questionnaire-2 Score 0 02/09/2023 [facility] [place] of Occupat ional Health - Occupational Stress [...] place to sleep or slept in a correction (including now)? No 11/12/2022 Comments Unknown Sex [...] on filedocumented in this encounter Care Teams Structural Test Engineer Relationship Specialty Start Date End Date Yossi Landers MD [address] [facility] 110 [place] [address] PCP - General Internal Medicine 11/03/22 Yossi Landers MD [address] [facility] 110 [place] [address] PCP - [employer] 11/20/22 Seble Mejia RN [address] [place] [address] Clinical Advocate Family Medicine 07/29/24 09/09/24 Daniela Alvarado LPN [address] [facility] 110 [place] [address] 09/09/24 documented as of this encounter
--- OUTSIDE RECORDS SUMMARY | 2025-01-09 10:47 | XMS_ITS | Encounter Summary ---
Author Organization [facility] Address [address] [place] [address] Care Team Providers Care Director Of Assessing Name Role Phone Yossi Landers MD Primary Care Provider [phone] Yossi Landers MD Unavailable [phone] Seble Mejia RN Unavailable [phone] Daniela Alvarado LPN Unavailable Encounter Details Date Type Department Care Team (Late st Contact Info) Description 03/11/2024 Abstract [facility] 112 [facility] 110 [place] [address] Yossi Landers MD 112 [facility] 110 [place] [address] Social History Tobacco Use Types [...] How often do you attend chur or lutheran services? Never 11/12/2022 Do you belong to [...] Recorded Patient Health Questionnaire-2 Score 0 10/12/2023 [facility] [place] of Occupat ional Health - Occupational Stress [...] place to sleep or slept in a [place] (including now)? No 11/12/2022 Comments Unknown Sex and Gender Information Value Date Recorded Sex Assigned at Not on file Legal Sex Female 6:57 PM EDT Gender Identity Not on file Sexual Orientation Not on file documented as of this encounter Plan of Treatment Not on file documented as of this encounter Visit Diagnoses Not on filedocumented in this encounter Care Teams Director Of Assessing Relationship Specialty Start Date End Date Yossi Landers MD [address] [facility] 110 [place] [address] PCP - General Internal Medicine 11/03/22 Yossi Landers MD [address] [facility] [address] [place] [address] PCP - [employer] 11/20/22 Seble Mejia, RN [address] [place] [address] Clinical Advocate Family Medicine 07/29/24 09/09/24 Daniela Alvarado LPN 112 [facility] 110 [place] [address] 09/09/24 documented as of this encounter
--- OUTSIDE RECORDS SUMMARY | 2025-01-09 10:47 | XMS_ITS | Encounter Summary ---
Author Organization [facility] Address [address] [facility] [place] [address] Care Team Providers Care Quality Systems Specialist Name Role Phone Yossi Landers MD Primary Care Provider Yossi Landers MD Unavailable [phone] Seble Mejia RN Unavailable [phone] Daniela Alvarado LPN Unavailable Encounter Details Date Type Department Care Team (Late st Contact Info) Description 12/09/2022 Orders Only [facility] [address] [facility] 110 [place] [address] Yossi Landers MD [address] [facility] 110 [place], [place] [id number] Social History Tobacco Use Types Packs/Day Years [...] often do you attend chur ch or tenriism services? Never 11/12/2022 Do you belong to any clubs o r organizations such as taoism groups, unions, fraternal or athletic groups, or [...] 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 Not very hard 11/12/2022 [facility] of Occupat ional Health - [...] place to sleep or slept in a chcf (including now)? No 11/12/2022 Comments Unknown Sex [...] Priority Date/Time Associated Diagnosis Comments US THYROID Routine 12/08/2022 8:39 AM EDT documented in this encounter Results * US thyroid (12/08/2022 8:39 AM EDT) Anatomical Region Laterality Modality Head, Neck Ultrasound us Yossi Landers MD IMG US PROCEDURES Final Result documented in this encounter Visit Diagnoses Not on filedocumented in this encounter Care Teams Quality Systems Specialist Relationship Specialty Start Date End Date Yossi Landers MD [address] [facility] 110 [place] [address] PCP - General Internal Medicine 11/03/22 Yossi Landers MD [address] [facility] 110 [place] [address] PCP - [employer] 11/20/22 Seble Mejia, CIPRIANO [address] [place] [address] Clinical Advocate Family Medicine 07/29/24 09/09/24 Daniela Alvarado LPN 112 [facility] 110 [place] [address] 09/09/24 documented as of this encounter
--- OUTSIDE RECORDS SUMMARY | 2025-01-09 10:47 | XMS_ITS | Encounter Summary ---
Author Organization [facility] Address [address] [place] [address] Care Team Providers Care Weight Analyst Name Role Phone Yossi Landers MD Primary Care Provider [phone] Yossi Landers MD Unavailable [phone] Seble Mejia RN Unavailable Daniela Alvarado LPN Unavailable Encounter Details Date Type Department Care Team (Late st Contact Info) Description 12/18/2022 Abstract [facility] 112 [facility] [facility] 110 [place] [id number] Yossi Landers MD 112 [facility] 110 [place], [place] [address] Social History Tobacco Use Types Packs/Day Years [...] often do you attend chur ch or druze services? Never 11/12/2022 Do you belong to any clubs o r organizations such as episcopalian groups, unions, fraternal or athletic groups, or [...] 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 Not very hard 11/12/2022 [facility] of Occupat ional Health - Occupational Stress [...] place to sleep or slept in a senior living (including now)? No 11/12/2022 Comments Unknown Sex [...] on filedocumented in this encounter Care Teams Weight Analyst Relationship Specialty Start Date End Date Yossi Landers MD [address] [facility] 110 [place] [address] PCP - General Internal Medicine 11/03/22 Yossi Landers MD [address] [place] [address] PCP - [employer] 11/20/22 Seble Mejia, CIPRIANO [address] [place] [address] Clinical [facility] Family [facility] 07/29/24 09/09/24 Daniela Alvarado LPN [address] [place] [address] 09/09/24 documented as of this encounter
--- OUTSIDE RECORDS SUMMARY | 2025-01-09 10:47 | XMS_ITS | Encounter Summary ---
Author Organization [facility] Address [address] [place] [address] Care Team Providers Care Mushroom Press Operator Name Role Phone Yossi Landers MD Primary Care Provider [phone] Yossi Landers MD Unavailable [phone] Seble Mejia RN Unavailable [phone] Daniela Alvarado LPN Unavailable Encounter Details Date Type Department Care Team (Late st Contact Info) Description 04/09/2023 Abstract [facility] 112 [facility] 110 [place] [id number] Yossi Landers MD 112 [facility] 110 [place], [place] [address] Social History Tobacco Use Types Packs/Day Years [...] often do you attend chur ch or anabaptism services? Never 11/12/2022 Do you [...] Recorded Patient Health Questionnaire-2 Score 0 02/09/2023 [facility] [place] of Occupat ional Health - Occupational Stress [...] place to sleep or slept in a mcfp (including now)? No 11/12/2022 Comments Unknown Sex and Gender Information Value Date Recorded Sex Assigned at Not on file Legal Sex Female 6:57 PM EDT Gender Identity Not on file Sexual Orientation Not on file documented as of this encounter Plan of Treatment Not on file documented as of this encounter Visit Diagnoses Not on filedocumented in this encounter Care Teams Mushroom Press Operator Relationship Specialty Start Date End Date Yossi Landers MD [address] [facility] 110 [place] [address] PCP - General Internal Medicine 11/03/22 Yossi Landers MD [address] [facility] 110 [place] [address] PCP - [employer] 11/20/22 Seble Mejia, CIPRIANO [address] [place] [address] Clinical Advocate Family Medicine 07/29/24 09/09/24 Daniela Alvarado LPN [address] [facility] 110 [place] [address] 09/09/24 documented as of this encounter
--- OUTSIDE RECORDS SUMMARY | 2025-01-09 10:47 | XMS_ITS | Encounter Summary ---
Author Organization [facility] Address [address] [place] [address] Care Team Providers Care Floating Operator Name Role Phone Yossi Landers MD Primary Care Provider Yossi Landers MD Unavailable [phone] Seble Mejia RN Unavailable [phone] Daniela Alvarado LPN Unavailable Encounter Details Date Type Department Care Team (Late st Contact Info) Description 01/14/2024 Abstract [facility] 112 [facility] 110 [place] [address] Yossi Landers MD 112 [facility] 110 [place] [address] Social History Tobacco Use Types [...] often do you attend chur ch or buddhism services? Never 11/12/2022 Do you belong to any clubs o r organizations such as samaritan groups, unions, fraternal or athletic groups, or [...] Recorded Patient Health Questionnaire-2 Score 0 10/12/2023 [facility] of Occupat ional Health - [...] place to sleep or slept in a long-term (including now)? No 11/12/2022 Comments Unknown Sex and Gender Information Value Date Recorded Sex Assigned at Not on file Legal Sex Female 6:57 PM EDT Gender Identity Not on file Sexual Orientation Not on file documented as of this encounter Plan of Treatment Not on file documented as of this encounter Visit Diagnoses Not on filedocumented in this encounter Care Teams Floating Operator Relationship Specialty Start Date End Date Yossi Landers MD [address] [facility] [address] [place] [address] PCP - General Internal Medicine 11/03/22 Yossi Landers MD [address] [place] [address] PCP - [employer] 11/20/22 Seble Mejia, RN [address] [place] [address] Clinical [facility] Family Medicine 07/29/24 09/09/24 Daniela Alvarado LPN [address] [place] [address] 09/09/24 documented as of this encounter
--- OUTSIDE RECORDS SUMMARY | 2025-01-09 10:47 | XMS_ITS | Encounter Summary ---
Author Organization [facility] Address [address] [place] [address] Care Team Providers Care Cutter Aluminum Sheet Name Role Phone Yossi Landers MD Primary Care Provider [phone] Yossi Landers MD Unavailable [phone] Seble Mejia RN Unavailable [phone] Daniela Alvarado LPN Unavailable Encounter Details Date Type Department Care Team (Late st Contact Info) Description 02/23/2024 Abstract [facility] 112 [facility] [facility] 110 [place] [address] Yossi Landers MD 112 [facility] 110 [place], [place] [id number] Social History Tobacco Use Types Packs/Day Years [...] How often do you attend chur or yazidi services? Never 11/12/2022 Do you belong to any clubs o r organizations such as scientology groups, unions, fraternal or athletic groups, or [...] Recorded Patient Health Questionnaire-2 Score 0 10/12/2023 [facility] of Occupat ional Health - Occupational Stress [...] on filedocumented in this encounter Care Teams Cutter Aluminum Sheet Relationship Specialty Start Date End Date Yossi Landers MD [address] [facility] 110 [place] [address] PCP - General Internal Medicine 11/03/22 Yossi Landers MD [address] [place] [address] PCP - [employer] 11/20/22 Seble Mejia, RN [address] [place] [address] Clinical Advocate Family Medicine 07/29/24 09/09/24 Daniela Alvarado LPN 112 [facility] 110 [place] [address] 09/09/24 documented as of this encounter
--- OUTSIDE RECORDS SUMMARY | 2025-01-09 10:47 | XMS_ITS | Encounter Summary ---
Author Organization [facility] Address [address] [place] [address] Care Team Providers Care Plastics Nurse Name Role Phone Yossi Landers MD Primary Care Provider [phone] Yossi Landers MD Unavailable [phone] Seble Mejia RN Unavailable Daniela Alvarado LPN Unavailable Encounter Details Date Type Department Care Team (Late st Contact Info) Description 02/12/2023 Abstract [facility] 112 [facility] [facility] 110 [place] [phone] Yossi Landers MD 112 [facility] 110 [place], [place] [address] Social History Tobacco Use Types Packs/Day Years [...] often do you attend chur ch or yarsanism services? Never 11/12/2022 Do you belong to any clubs o r organizations such as christian groups, unions, fraternal or athletic groups, or [...] Recorded Patient Health Questionnaire-2 Score 0 02/09/2023 [facility] [place] of Occupat ional Health - Occupational Stress [...] on filedocumented in this encounter Care Teams Plastics Nurse Relationship Specialty Start Date End Date Yossi Lnaders MD [address] [facility] 110 [place] [address] PCP - General Internal Medicine 11/03/22 Yossi Landers MD [address] [facility] 110 [place] [address] PCP - [employer] 11/20/22 Seble Mejia RN [address] [place] [address] Clinical Advocate Family Medicine 07/29/24 09/09/24 Daniela Alvarado LPN [address] [facility] 110 [place] [address] 09/09/24 documented as of this encounter
--- OUTSIDE RECORDS SUMMARY | 2025-01-09 10:47 | XMS_ITS | Encounter Summary ---
Author Organization [facility] Address [address] [place] [address] Care Team Providers Care Diathermy Equipment Repairer Name Role Phone Yossi Landers MD Primary Care Provider [phone] Yossi Landers MD Unavailable [phone] Seble Mejia RN Unavailable Daniela Alvarado LPN Unavailable Encounter Details Date Type Department Care Team (Late st Contact Info) Description 01/04/2024 Clinisync Result Encounter [facility] External Department Unsolicited Yossi Landers MD [address] [facility] 110 [place] [address] Social History Tobacco Use Types Packs/Day Years [...] often do you attend chur ch or zoroastrian services? Never 11/12/2022 Do you belong to any clubs o r organizations such as gnosticism groups, unions, fraternal or athletic groups, or [...] Recorded Patient Health Questionnaire-2 Score 0 10/12/2023 [facility] of Occupat ional Health - [...] Procedure Name Priority Date/Time Associated Diagnosis Comments NM HEPATOBILIARY SCAN W PHARMACOLOGICAL INTERVENTION 01/04/2024 10:48 AM EDT documented in this encounter Results * NM HEPATOBILIARY SCAN W PHARMACOLOGICAL INTERVENTION (01/04/2024 10:48 AM EDT) Anatomical Region Laterality Modality Radiographic Joanna ging 01/04/2024 10:4 8 AM EDT Narrative 01/04/2024 10:51 [place] [address] Nuclear Medicine Report Signed Patient: JAQUELIN NORWOOD MR#: [id number] : 1940 Acct:[id number] Age/Sex: 83 / F ADM Date: 01/04/24 Loc: [place] Attending Dr: YOSSI LANDERS Ordering Physician: YOSSI LANDERS Date of Service: 01/04/24 Procedure(s): NM hepatobiliary w pharm Accession Number(s): [id number] cc: YOSSI LANDERS [place] [id number] Patient Name: JAQUELIN NORWOOD MRN: [id number] date: 1940 Sex: F Assigned Patient Location: DC Current Patient Location: DC Accession/Order Number: [id number] Exam Date: 01/04/2024 06:05 Report Date: 01/04/2024 10:48 At the request of: YOSSI LANDRES Procedure: NM hepatobiliary w pharm EXAMINATION: DC hepatobiliary w pharm HISTORY: RIGHT UPPER QUADRANT PAIN, NAUSEA COMPARISON: No relevant comparison available. TECHNIQUE: Radionuclide hepatobiliary imaging was performed after intravenous injection of 4.9 Tc-99m nephrolith in with sequential acquisitions every 1 minute for one hour. Hepatobiliary imaging with gallbladder ejection fraction analysis was then performed with sequential imaging every 1 minute for 60 minutes after the patient drank 8 ounces of ensure plus. FINDINGS: LIVER: Normal, prompt and uniform radiotracer uptake and clearing. BILIARY DUCTS: Normal radioisotopic biliary excretion. GALLBLADDER: Delayed visualization at 45 minutes INTESTINE: Normal with no evidence of common biliary ductal obstruction. EJECTION FRACTION: 0 % within 60 minutes. (Normal EF > 38%). OTHER: Negative. DC/DC hepatobiliary w pharm IMPRESSION: Delayed visualization of the gallbladder seen at 45 minutes Patent biliary tree Biliary dyskinesia with no emptying at 60 minutes Electronically authenticated by: CARLOS SOOD Date: 01/04/2024 10:48 Dictated By: Carlos Sood M.D. Signed By: 01/04/24 1051 DD/ 1048 TD/TT: Lock And Dam Repairer: Procedure Note Radiology, Radiologist, MD - 01/04/2024 [place] [address] Nuclear Medicine Report Signed Patient: JAQUELIN NORWOOD JMR#: [id number] : 1940cct:[id number] Age/Sex: 83 / FADM Date: 01/04/24 Loc: [facility] Attending Dr: YOSSI LANDERS Ordering Physician: YOSSI LANDERS Date of Service: 01/04/24 Procedure(s): DC hepatobiliary w pharm Accession Number(s): [id number] cc: YOSSI LANDERS [place] [address] Patient Name: JAQUELIN NORWOOD MRN: [id number] date: 1940 Sex: F Assigned Patient Location: DC Current Patient Location: DC Accession/Order Number: [id number] Exam Date: 01/04/2024 06:05 Report Date: 01/04/2024 10:48 At the request of: YOSSI LANDERS Procedure: DC hepatobiliary w pharm EXAMINATION: DC hepatobiliary w pharm HISTORY: RIGHT UPPER QUADRANT PAIN, NAUSEA COMPARISON: No relevant comparison available. TECHNIQUE: Radionuclide hepatobiliary imaging was performed afterintravenous injection of 4.9 Tc-99m nephrolith in with sequential acquisitions every 1 minute for one hour. Hepatobiliary imaging with gallbladder ejectionfraction analysis was then performed with sequential imaging every 1 minute for 60 minutes after the patient drank 8 ounces of ensure plus. FINDINGS: LIVER: Normal, prompt and uniform radiotracer uptake and clearing. BILIARY DUCTS: Normal radioisotopic biliary excretion. GALLBLADDER: Delayed visualization at 45 minutes INTESTINE: Normal with no evidence of common biliary ductal obstruction. EJECTION FRACTION: 0 % within 60 minutes. (Normal EF > 38%). OTHER: Negative. DC/DC hepatobiliary w pharm IMPRESSION: Delayed visualization of the gallbladder seen at 45 minutes Patent biliary tree Biliary dyskinesia with no emptying at 60 minutes Electronically authenticated by: CARLOS SOOD Date: 01/04/2024 10:48 Dictated By: Carlos Sood M.D. Signed By:01/04/24 1051 DD/ 1048 TD/TT: Lock And Dam Repairer: Yossi Landers MD IMG XR PROCEDURES Final Result documented in this encounter Visit Diagnoses Not on filedocumented in this encounter Care Teams Diathermy Equipment Repairer Relationship Specialty Start Date End Date Yossi Landers MD [address] [facility] 110 [place] [address] PCP - General Internal Medicine 11/03/22 Yossi Landers MD [address] [facility] 110 [place] [address] PCP - [employer] 11/20/22 Seble Mejia, CIPRIANO [address] [place] [address] Clinical Advocate Family Medicine 07/29/24 09/09/24 Daniela Alvarado LPN [address] [address] 09/09/24 documented as of this encounter
--- OUTSIDE RECORDS SUMMARY | 2025-01-09 10:47 | XMS_ITS | Encounter Summary ---
Author Organization [facility] Address [address] [place] [address] Care Team Providers Care Venue Coordinator Name Role Phone Yossi Landers MD Primary Care Provider Yossi Landers MD Unavailable [phone] Daniela Alvarado LPN Unavailable Encounter Details Date Type Department Care Team (Late st Contact Info) Description 11/08/2024 Abstract [facility] 112 [facility] 110 [place] [address] Yossi Landers MD 112 [facility] 110 [place] [address] Social History Tobacco Use Types [...] How often do you attend chur or islam services? Never 11/12/2022 Do you belong to any clubs o r organizations such as yazidism groups, unions, fraternal or athletic groups, or [...] Recorded Patient Health Questionnaire-2 Score 0 11/07/2024 [facility] [place] of Occupat ional Health - Occupational Stress [...] on filedocumented in this encounter Care Teams Venue Coordinator Relationship Specialty Start Date End Date Yossi Landers MD [address] [facility] 110 [place] [address] PCP - General Internal Medicine 11/03/22 Yossi Landers MD [address] [facility] 110 [place] [address] PCP - [employer] 11/20/22 Daniela Alvarado LPN [address] [facility] 110 [place] [address] 09/09/24 documented as of this encounter
--- OUTSIDE RECORDS SUMMARY | 2025-01-09 10:47 | XMS_ITS | Encounter Summary ---
Author Organization [facility] Address [address] [facility] [place] [address] Care Team Providers Care Contract Runner Name Role Phone Yossi Landers MD Primary Care Provider [phone] Yossi Landers MD Unavailable [phone] Seble Mejia RN Unavailable Daniela Alvarado LPN Unavailable Encounter Details Date Type Department Care Team (Late st Contact Info) Description 12/09/2022 Abstract [facility] 112 [address] [facility] 110 [place] [address] Yossi Landers MD 112 [facility] 110 [place] [address] Social History Tobacco Use Types [...] often do you attend chur ch or episcopalian services? Never 11/12/2022 Do you belong to any clubs o r organizations such as anglican groups, unions, fraternal or athletic groups, or [...] 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 Not very hard 11/12/2022 [facility] of Occupat ional Health - Occupational [...] place to sleep or slept in a fpc (including now)? No 11/12/2022 Comments Unknown Sex [...] on filedocumented in this encounter Care Teams Contract Runner Relationship Specialty Start Date End Date Yossi Landers MD [address] [facility] 110 [place] [address] PCP - General Internal Medicine 11/03/22 Yossi Landers MD [address] [facility] 110 [place] [address] PCP - Hum[employer] 11/20/22 Seble Mejia, CIPRIANO [address] [place] [address] Clinical Advocate Family Medicine 07/29/24 09/09/24 Daniela Alvarado LPN [address] [facility] 110 [place] [address] 09/09/24 documented as of this encounter
--- OUTSIDE RECORDS SUMMARY | 2025-01-09 10:47 | XMS_ITS | Encounter Summary ---
Author Organization [facility] Address [address] [place] [address] Care Team Providers Care Educational Administrator Name Role Phone Yossi Landers MD Primary Care Provider Yossi Landers MD Unavailable [phone] Seble Mejia RN Unavailable Daniela Alvarado LPN Unavailable Encounter Details Date Type Department Care Team (Late st Contact Info) Description 02/08/2024 Abstract [facility] 112 [address] [facility] 110 [place] [address] Yossi Landers MD 112 [facility] 110 [place], [place] [id number] Social History Tobacco Use Types Packs/Day Years [...] How often do you attend chur or hinduism services? Never 11/12/2022 Do you belong to any clubs o r organizations such as rastafarian groups, unions, fraternal or athletic groups, or [...] Recorded Patient Health Questionnaire-2 Score 0 10/12/2023 [facility] of Occupat ional Health - Occupational Stress [...] on file documented as of this encounter Functional Status * Audit-C Score Answer Date of Assessment Author 0 02/09/2024 4:23 PM EDT Edilson Guevara LPN * Question Answer Date of Assessment Author Q1: How often do you have a drink containing alcohol? Never 02/09/2024 4:23 PM EDT Lara Guevara LP N Q2: How many drinks containing alcohol do you have on a typical day when you are drinking? Patient does not drink 02/09/2024 4:23 PM EDT Lara Guevara LPN Q3: How often do you have six or more drinks on one occasion? Never 02/09/2024 4:23 PM EDT Lara Guevara LP N documented as of this encounter Plan of Treatment Not on file documented as of this encounter Visit Diagnoses Not on filedocumented in this encounter Care Teams Educational Administrator Relationship Specialty Start Date End Date Yossi Landers MD [address] [facility] 110 [place] [address] PCP - General Internal Medicine 11/03/22 Yossi Landers MD [address] [facility] 110 [place] [address] PCP - [employer] 11/20/22 Seble Mejia, RN [address] [place] [address] Clinical Advocate Family Medicine 07/29/24 09/09/24 Daniela Alvarado LPN [address] [address] 09/09/24 documented as of this encounter
--- OUTSIDE RECORDS SUMMARY | 2025-01-09 10:47 | XMS_ITS | Encounter Summary ---
Author Organization [facility] Address [address] [place] [address] Care Team Providers Care Corporate Communications Associate Name Role Phone Yossi Landers MD Primary Care Provider Yossi Landers MD Unavailable [phone] Seble Mejia RN Unavailable Daniela Alvarado LPN Unavailable Encounter Details Date Type Department Care Team (Late st Contact Info) Description 02/06/2023 Abstract [facility] 112 [address] [facility] 110 [place] [address] Yossi Landers MD 112 [facility] 110 [place], [place] [address] Social History Tobacco Use Types Packs/Day Years [...] often do you attend chur ch or adventist services? Never 11/12/2022 Do you [...] Recorded Patient Health Questionnaire-2 Score 0 02/09/2023 [facility] [place] of Occupat ional Health - Occupational Stress [...] to sleep or slept in a senior care (including now)? No 11/12/2022 Comments Unknown Sex [...] PM EDT documented as of this encounter Functional Status * Over the past 2 weeks, how often have you been bothered by any of the following problems? Question Answer Date of Assessment Author Little interest or pleasure in doing things Not at all 02/09/2023 1:00 PM EDT Kimberly Sanchez LP N Feeling down, depressed, or hopeless Not at all 02/09/2023 1:00 PM EDT Kimberly Sanchez LP N Patient Health Questionnaire -2 Score 0 02/09/2023 1:00 PM EDT Kimberly Sanchez LP N documented as of this encounter Plan of Treatment Not on file documented as of this encounter Visit Diagnoses Not on filedocumented in this encounter Care Teams Corporate Communications Associate Relationship Specialty Start Date End Date Yossi Landers MD [address] [facility] 110 [place] [address] PCP - General Internal Medicine 11/03/22 Yossi Landers MD [address] [facility] 110 [place] [address] PCP - [employer] 11/20/22 Seble Mejia, CIPRIANO [address] [place] [address] Clinical Advocate Family Medicine 07/29/24 09/09/24 Daniela Alvarado LPN [address] [address] 09/09/24 documented as of this encounter
--- OUTSIDE RECORDS SUMMARY | 2025-01-09 10:47 | XMS_ITS | Encounter Summary ---
Author Organization [facility] Address [address] [place] [address] Care Team Providers Care Silicator Name Role Phone Yossi Landers MD Primary Care Provider [phone] Yossi Landers MD Unavailable [phone] Daniela Alvarado LPN Unavailable Encounter Details Date Type Department Care Team (Late st Contact Info) Description 11/07/2024 Abstract [facility] [address] [facility] 110 [place] [address] Yossi Landers MD 112 [facility] 110 [place] [address] Social History Tobacco Use Types [...] How often do you attend chur or tenriism services? Never 11/12/2022 Do you belong to any clubs o r organizations such as methodist groups, unions, fraternal or athletic groups, or [...] Recorded Patient Health Questionnaire-2 Score 0 11/07/2024 [facility] [place] of Occupat ional Health - Occupational Stress [...] pleasure in doing things Not at all 11/07/2024 11:00 AM EDKimberly Renner L PN Feeling down, depressed, or hopeless Not at all 11/07/2024 11:00 AM JACKELYNT Kimberly Sanchez L PN Patient Health Questionnaire -2 Score 0 11/07/2024 11:00 AM Kimberly Ortega L PN documented as of this encounter Plan of Treatment Not on file documented as of this encounter Visit Diagnoses Not on filedocumented in this encounter Care Teams Silicator Relationship Specialty Start Date End Date Yossi Landers MD [address] [facility] 110 [place] [address] PCP - General Internal Medicine 11/03/22 Yossi Landers MD [address] [facility] 110 [place] [address] PCP - [employer] 11/20/22 Daniela Alvarado LPN [address] [place] [address] 09/09/24 documented as of this encounter
--- OUTSIDE RECORDS SUMMARY | 2025-01-09 10:47 | XMS_ITS | Encounter Summary ---
Author Organization [facility] Address [address] [place] [address] Care Team Providers Care Louver Mortiser Operator Name Role Phone Yossi Landers MD Primary Care Provider [phone] Yossi Landers MD Unavailable [phone] Seble Mejia RN Unavailable [phone] Daniela Alvarado LPN Unavailable Encounter Details Date Type Department Care Team (Late st Contact Info) Description 06/01/2023 Clinisync Result Encounter [facility] External Department Unsolicited Bel Dominique MD [address] [facility] [address] [place] [address] Social History Tobacco Use Types Packs/Day Years [...] often do you attend chur ch or islam services? Never 11/12/2022 Do you [...] Recorded Patient Health Questionnaire-2 Score 0 02/09/2023 [facility] - Occupational Stress [...] place to sleep or slept in a retirement (including now)? No 11/12/2022 Comments Unknown Sex [...] AM EST Narrative 06/01/2023 10:40 AM EST [address] [address] Ultrasound Report Signed Patient: Jaquelin Norwood MR#: [id number] : 1940 Acct:[id number] Age/Sex: 83 / F ADM Date: 06/01/23 Loc: US Attending Dr: Bel Dominique M.D. Ordering Physician: Bel Dominique M.D. Date of Service: 06/01/23 Procedure(s): US thyroid Accession Number(s): [id number] cc: YOSSI LANDERS ; Bel Dominique M.D. The [address] [id number] Patient Name: JAQUELIN NORWOOD MRN: [id number] date: 1940 Sex: F Assigned Patient Location: US Current Patient Location: US Accession/Order Number: [id number] Exam Date: 06/01/2023 09:55 Report Date: 06/01/2023 [...] from the May 2022 exam TI-RADS: [employer] TI-RADS committee's white paper recommendations for thyroid lesions classified as TR4 (moderately suspicious) are listed below: > 1.0 cm. Follow-up ultrasound in 1, 2, 3, and 5 years. > 1.5 cm. FNA. J. Am Nikunj Radiol 2017;14:587-595. Electronically authenticated by: CARLOS SOOD Date: 06/01/2023 10:38 Dictated By: Carlos Sood M.D. Signed By: 06/01/23 1040 DD/ 1038 TD/TT: Airplane Dispatcher: Procedure Note Radiology, Radiologist, - 08/26/[address] [address] Ultrasound Report Signed Patient: Jaquelin Norwood JMR#: [id number] : 1940cct:[id number] Age/Sex: 83 / FADM Date: 06/01/23 Loc: US Attending Dr: Bel Dominique M.D. Ordering Physician: Bel Dominique M.D. Date of Service: 06/01/23 Procedure(s): US thyroid Accession Number(s): [id number] cc: YOSSI LANDERS ; Bel Dominique M.D. [place] [id number] Patient Name: JAQUELIN NORWOOD MRN: [id number] date: 1940 Sex: F Assigned Patient Location: US Current Patient Location: US Accession/Order Number: [id number] Exam Date: 06/01/2023 09:55 Report Date: 06/01/2023 [...] from the May 2022 exam TI-RADS: [employer] TI-RADS committee's white paper recommendations for thyroid lesions classified as TR4 (moderatelysuspicious) are listed below: > 1.0 cm. Follow-up ultrasound in 1, 2, 3, and 5 years. > 1.5 cm. FNA. J. Am Nikunj Radiol 2017;14:587-595. Electronically authenticated by: CARLOS SOOD Date: 06/01/2023 10:38 Dictated By: Carlos Sood M.D. Signed By:06/01/23 1040 DD/ 1038 TD/TT: Airplane Dispatcher: us Bel Dominique MD IMG US PROCEDURES Final Resul t documented in this encounter Visit Diagnoses Not on filedocumented in this encounter Care Teams Louver Mortiser Operator Relationship Specialty Start Date End Date Yossi Landers MD [address] [facility] [address] [place] [address] PCP - General Internal Medicine 11/03/22 Yossi Landers MD [address] [facility] [address] [place] [address] PCP - [employer] 11/20/22 Seble Mejia, CIPRIANO [address] [place] [address] [facility] 07/29/24 09/09/24 Daniela Alvarado LPN [address] [facility] [address] [place] [address] 09/09/24 documented as of this encounter
--- OUTSIDE RECORDS SUMMARY | 2025-01-09 10:47 | XMS_ITS | Encounter Summary ---
Author Organization [facility] Address [address] [place] [address] Care Team Providers Care Clinical Dental Technician Name Role Phone Yossi Landers MD Primary Care Provider [phone] Yossi Landers MD Unavailable [phone] Daniela Alvarado LPN Unavailable Reason for Visit * Reason Onset Date Comments Med Refill 01/03/2025 Encounter Details Date Type Department Care Team (Late st Contact Info) Description 01/03/2025 Refill [facility] [address] [facility] [address] [place] [address] Yossi Landers MD [address] [facility] [address] [place], [place] [id number] Depression with anxiety Social History Tobacco Use Types Packs/Day Years [...] often do you attend chur ch or cheondoism services? Never 11/12/2022 Do you belong to any clubs o r organizations such as tenriism groups, unions, fraternal or athletic groups, or [...] Recorded Patient Health Questionnaire-2 Score 0 11/07/2024 [facility]at ional Health [...] * Telephone Encounter - PHILIP Magallanes - 01/03/2025 1:53 PM EDT OARRS reviewed, Rx sent into patient's pharmacy. documented in this encounter Plan of Treatment Not on file documented as of this encounter Visit Diagnoses Diagnosis Depression with anxiety Dysthymic disorder documented in this encounter Care Teams Clinical Dental Technician Relationship Specialty Start Date End Date Yossi Landers MD [address] [address] PCP - General Internal Medicine 11/03/22 Yossi Landers MD [address] [email or web address] [address] [place] [address] PCP - [employer] 11/20/22 Daniela Alvarado LPN [address] [address] 09/09/24 documented as of this encounter
--- OUTSIDE RECORDS SUMMARY | 2025-01-09 10:47 | XMS_ITS | Clinical Summary ---
Author Organization [facility] Address [address] [place] [address] Care Team Providers Care Diesel Plant Operator Name Role Phone Yossi Landers MD Primary Care Provider [phone] Yossi Landers MD Unavailable [phone] Daniela Alvarado LPN Unavailable Allergies Active Allergy Reactions Criticality Noted Date Comments Naproxen Swelling Medium 12/13/2020 mario oral edema Benztropine Other 11/30/2019 Benztropine Mesylate Hallucinations Medium 11/30/2019 Rofecoxib 10/26/2023 Medications meclizine (Antivert) 12.5 MG tablet Take 12.5 mg by mouth 3 (three) times a day as needed for dizziness. 018 Active nitroglycerin (Nitrostat) 0.[address] 0.4 mg under the tongue every 5 (five) minutes if needed. Active Multiple Vitamins-Minerals (OCUVITE ADULT 50+ PO) Take by mouth 1 (one) time each day. Active albuterol HFA (ProAir HFA) 90 mcg/act inhaler Inhale 2 puffs every 4 (four) hours if needed. Active aspirin 81 MG EC tablet Take 81 mg by mouth 1 (one) time each day at the same time. Active Blood Glucose Monitoring Suppl (ONE TOUCH ULTRA 2) w/Device kit Inject under the skin 1 (one) time each day. 023 Active glucose blood (True Metrix Blood Glucose Test) test strip 1 each by Other route 1 (one) time each day at the same time. Active Lancets (OneTouch Delica Plus [id number]) [facility] USE 1 LANCET TO TEST BLOOD SUGAR ONCE DAILY 023 Active nystatin (Mycostatin) ointment every 12 (twelve) hours. Active [employer] Stool Softener 100 MG capsule Take 100 mg by mouth in the morning and 100 mg before bedtime. 024 Active loratadine (Claritin) 10 MG tabletIndications :Allergic rhinitis, unspecified Take 1 tablet (10 mg) by mouth Daily 100 tablet 3 024 Active gabapentin (Neurontin) 100 MG capsuleIndication s:Type 2 diabetes mellitus with diabetic neuropathy, without long-term current use of insulin (HCC) Take 2 capsules (200 mg) by mouth in the morning and 2 capsules (200 mg) before bedtime. 360 capsule 3 025 2025 Active polyethylene glycol, PEG, 3350 (Glycolax, Miralax) powderIndications :Constipation Take 17 g by mouth Daily as needed (constipation) 025 Active Fluticasone-Umecl idin-Vilant (Trelegy Ellipta) 100-62.5-25 MCG/ACT aerosol powderIndications :Panlobular emphysema (HCC) Inhale 1 puff Daily 3 each 3 025 Active albuterol (2.5 MG/3ML) 0.083% nebulizer solutionIndicatio ns:Panlobular emphysema (HCC) Take 3 mL (2.5 mg) by nebulization every 8 (eight) hours if needed for wheezing or shortness of breath 150 mL 5 025 Active calcium carbonate (Tums) 500 MG chewable tablet Chew 500 mg Daily Active torsemide (Demadex) 10 MG tabletIndications :Chronic combined systolic and diastolic congestive heart failure (HCC) Take 1 tablet (10 mg) by mouth Daily 90 tablet 3 025 2025 Active memantine (Namenda Titration Pack) 28 x 5 MG & 21 x 10 MG tablet packIndications:C ognitive impairment USE DIRECTED FOR FIRST MONTH. 147 each 1 025 Active memantine (Namenda) 10 MG tabletIndications :Cognitive impairment Take 1 tablet (10 mg) by mouth in the morning and 1 tablet (10 mg) before bedtime. 60 tablet 5 025 2024 Active famotidine (Pepcid) 20 MG tabletIndications :Gastroesophageal reflux disease without esophagitis TAKE 1 TABLET BY MOUTH EVERY DAY 100 tablet 3 025 Active ALPRAZolam (Xanax) 0.25 MG tabletIndications :Depression with anxiety Take 1 tablet (0.25 mg) by mouth 3 (three) times a day as needed for anxiety 90 tablet 025 2024 Active levothyroxine (Synthroid, Levoxyl) 100 MCG tabletIndications :Acquired hypothyroidism TAKE 1 TABLET EVERY MORNING BEFORE A MEAL 90 tablet 3 025 Active omeprazole (PriLOSEC) [address] capsuleIndication s:Gastroesophagea l reflux disease without esophagitis TAKE 1 CAPSULE EVERY MORNING BEFORE A MEAL 90 capsule 3 025 Active atorvastatin (Lipitor) 40 MG tabletIndications :Mixed hyperlipidemia TAKE 1 TABLET EVERY MORNING 90 tablet 3 025 Active lisinopril 5 MG tabletIndications :Essential hypertension TAKE 1 TABLET EVERY MORNING 90 tablet 3 025 Active DULoxetine (Cymbalta) [address] capsuleIndication s:Depression with anxiety TAKE 1 CAPSULE EVERY MORNING 90 capsule 3 025 Active carvedilol (Coreg) 12.5 MG tabletIndications :Chronic 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 180 tablet 3 025 Active DULoxetine (Cymbalta) [address] capsuleIndication s:Depression with anxiety TAKE 1 CAPSULE EVERY MORNING 90 capsule 3 024 2024 Discontinued levothyroxine (Synthroid, Levoxyl) 100 MCG tabletIndications :Acquired hypothyroidism TAKE 1 TABLET (100 MCG) BY MOUTH IN THE MORNING. TAKE BEFORE MEALS. 90 tablet 3 024 2024 Discontinued carvedilol (Coreg) 12.5 MG tabletIndications :Chronic 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 180 tablet 3 024 2024 Discontinued lisinopril 5 MG tabletIndications :Essential hypertension TAKE 1 TABLET EVERY MORNING 90 tablet 3 024 2024 Discontinued atorvastatin (Lipitor) 40 MG tabletIndications :Mixed hyperlipidemia TAKE 1 TABLET EVERY MORNING 90 tablet 3 024 2024 Discontinued omeprazole (PriLOSEC) [address] capsuleIndication s:Gastroesophagea l reflux disease without esophagitis Take 1 capsule (40 mg) by mouth in the morning. Do not crush or chew.. 025 2024 Discontinued famotidine (Pepcid) 20 MG tabletIndications :Gastroesophageal reflux disease without esophagitis Take 1 tablet (20 mg) by mouth Daily 30 tablet 2 025 2024 Discontinued ALPRAZolam (Xanax) 0.25 MG tabletIndications :Depression with anxiety Take 1 tablet (0.25 mg) by mouth 3 (three) times a day as needed for anxiety 90 tablet 1 025 2024 Discontinued(R eorder) HYDROcodone-aceta minophen ([place]) 7.5-325 MG tabletIndications :Degenerative lumbar spinal stenosis Take 1 tablet by mouth every 6 (six) hours if needed for severe pain 120 tablet 025 2024 Active Problems Problem Noted Date Diagnosed Date Bilateral lower extremity edema 10/07/2024 Nausea 09/29/2024 Symptomatic cholelithiasis 01/20/2024 Sore throat 10/26/2023 Abnormality of rectum 08/10/2023 Acquired hypothyroidism 11/04/2022 Ataxic gait 11/04/2022 Bilateral carotid artery stenosis 11/04/2022 Cardiomyopathy 11/04/2022 Chronic allergic rhinitis 11/04/2022 Chronic combined systolic an d diastolic congestive heart failure 11/04/2022 Chronic constipation 11/04/2022 Coronary artery disease 11/04/2022 Degenerative lumbar spinal stenosis 11/04/2022 Depression with anxiety 11/04/2022 Diabetic renal disease 11/04/2022 Essential hypertension 11/04/2022 Extrapyramidal symptom 11/04/2022 Exudative age-related macular degeneration 11/04 Gastroesophageal reflux disease 11/04/2022 Hypertensive heart disease w ith congestive heart failure and chronic kidney disease 11/04/2022 LVH (left ventricular hypertrophy) 11/04/2022 Cognitive impairment 11/04/2022 Mixed hyperlipidemia 11/04/2022 Moderate recurrent major depression 11/04/2022 Multinodular goiter 11/04/2022 Neuropathy 11/04/2022 Nontoxic single thyroid nodule 11/04/2022 OAB (overactive bladder) 11/04/2022 Obesity (BMI 30-39.9) 11/04/2022 Peripheral vascular disease 11/04/2022 Polyosteoarthritis 11/04/2022 Primary osteoarthritis of left knee 11/04/2022 Primary osteoarthritis of right knee 11/04/2022 Chronic obstructive pulmonary disease 11/04/2022 Pulmonary emphysema 11/04/2022 Type 2 diabetes mellitus wit h diabetic neuropathy, without long-term current use of insulin 11/04/2022 Acute on chronic combined sy stolic and diastolic heart failure 03/14/2020 Diabetic peripheral neuropat hy associated with type 2 diabetes mellitus 02/23/2019 Ataxia 10/23/2017 Cardiomegaly 04/30/2015 Resolved Problems Problem Noted Date Diagnosed Date Resolved Date Morbid obesity 07/04/2019 12/14/2022 Former smoker 08/15/2017 12/14/2022 Acute exacerbation of chroni c obstructive pulmonary disease 07/16/2016 12/14/2022 Chronic combined systolic an d diastolic heart failure 04/30/2015 12/14/2022 Encounters Date Type Department Care Team Description 01/09/2025 10:00 AM EDT Office Visit [facility] [address] [facility] [address] [place] [address] Yossi Landers MD Acute on chronic combined systolic and diastolic heart failure (HCC) (Primary Dx); Panlobular emphysema (HCC); Other specified hypotension; Unspecified dementia, unspecified severity, without behavioral disturbance, psychotic disturbance, mood disturbance, and anxiety (HCC) 01/09/2025 Bamboo flowsheet [facility] [address] [facility] [address] [place] [address] Yossi Landers MD 01/09/2025 Travel 01/08/2025 Refill [facility] [address] [facility] [address] [place] [address] Yossi Landers MD Acquired hypothyroidism ; Gastroesophageal reflux disease without esophagitis; Mixed hyperlipidemia ; Essential hypertension ; Depression with anxiety; Chronic combined systolic and diastolic congestive heart failure (HCC) 01/03/2025 Refill [facility] [address] [facility] [address] [place] [address] Yossi Landers MD Depression with anxiety 12/30/2024 Abstract [facility] [address] [facility] [address] Demario Spivey DO 12/29/2024 2:30 PM EDT Office Visit [place] [address] [place] [address] Yen Auguste PA Vaginal discomfort 12/29/[address] [address] [place] [address] Janey Barry, SURGICAL [facility] 12/29/2024 Bamboo flowsheet [facility] [address] [place] [address] [place] [address] Yen Auguste PA 12/19/2024 Patient Outreach [facility] [address] [place] [address] Daniela Alvarado, SURGICAL SERVICES [facility] 12/12/2024 Refill [facility] [address] [facility] [address] [place] [address] Salud Roach PA Gastroesophageal reflux disease without esophagitis 12/05/2024 Refill [facility] [address] [facility] [address] [place] [address] Yossi Landers MD Cognitive impairment 12/03/2024 Refill [facility] [address] [facility] [address] [place] [address] Yossi Landers MD Depression with anxiety; Degenerative lumbar spinal stenosis 11/29/2024 Refill [facility] [address] [facility] [address] [place] [address] Yossi Landers MD Cognitive impairment 11/08/2024 Abstract [facility] [address] [facility] [address] [place] [address] Yossi Landers MD 11/07/2024 11:15 AM EDT Office Visit [facility] [address] [facility] [address] [place] [address] Yossi Landers MD Routine general medical examination at health care facility (Primary Dx); ACP (advance care planning); Nausea; Panlobular emphysema (HCC); Chronic combined systolic and diastolic congestive heart failure (HCC); Cognitive impairment 11/07/2024 Abstract [facility] [address] [facility] [address] [place] [address] Yossi Landers MD 11/07/2024 Bamboo flowsheet [facility] [address] [facility] [address] [place] [address] Yossi Landers MD 11/07/2024 Travel 11/02/2024 Refill [facility] [address] [facility] [address] [place] [address] Yossi Landers MD Depression with anxiety; Degenerative lumbar spinal stenosis 11/02/2024 Refill [facility] [address] [facility] [address] [place] [address] Yossi Landers MD Depression with anxiety 10/27/2024 Refill [facility] [address] [place] [address] Salud Roach PA [facility] 10/24/2024 Abstract [facility] [address] [facility] [address] [place] [address] Yossi Landers MD 10/21/2024 Patient Outreach [facility] [address] [place] [address] Daniela Alvarado LPN 10/21/2024 Telephone [facility] [address] [facility] [address] [place] [address] Salud Roach PA 10/20/2024 Patient Outreach [facility] [address] [place] [address] Daniela Alvarado LPN 10/19/2024 Abstract [facility] [address] [facility] [address] [place] [address] Yossi Landers MD 10/14/2024 Telephone [facility] [place] [id number] [place] [address] Daniela Alvarado LPN 10/14/2024 Refill [facility] [place] [address] [place] [address] Salud Roach PA Nausea 10/13/2024 Telephone [facility] [address] [facility] [address] [place] [address] Salud Roach PA diuretic 10/10/2024 Abstract [facility] [address] [facility] [address] [place] [address] Yossi Landers MD 10/10/2024 Abstract [facility] [address] [facility] [address] [place] [address] Yossi aLnders MD 10/10/2024 Abstract [facility] [address] [facility] [address] [place] [address] Yossi Landers MD 10/10/2024 Refill [facility] [address] [facility] [address] [place] [address] Salud Roach PA Chronic combined systolic and diastolic congestive heart failure (HCC) from Last 3 Months Immunizations Immunization Administration Dates Next Due Pneumococcal Conjugate PCV 13 04/22/2018 Zoster, live 11/28/2015,01/10/2015 Family History Medical History Relation Name Comments Heart disease Brother Cancer Father Cancer Mother Diabetes Mother Heart disease Mother Heart failure Mother Diabetes Sister Relation Name Status Comments Brother Father Mother Sister Social History Tobacco Use Types Packs/Day Years [...] often do you attend chur ch or jewish services? Never 11/12/2022 Do you belong to any clubs o r organizations such as druze groups, unions, fraternal or athletic groups, or [...] Recorded Patient Health Questionnaire-2 Score 2 01/09/2025 [facility] - Occupational [...] on file Sexual Orientation Not on file Last Filed Vital Signs Vital Sign Reading [...] Mass Index 33.12 01/09/2025 9:55 AM EDT Plan of Treatment Health Maintenance Due Date Last Done Comments Pneumococcal Vaccine: 65+ Ye ars (2 of 2 - PPSV23) 06/17/2018 04/22/2018 Diabetes: Retinopathy Screening 07/30/2020 9, 04/22/2018 Diabetes: Hemoglobin A1C 12/08/2024 025, 05/02/2024, 12/14/2023, Additional history exists Diabetes: Urine Protein Screening 01/27/2025 024 Influenza Vaccine (#1) 2025 Procedures Procedure Name Priority Date/Time Associated Diagnosis Comments POCT GLYCATED HEMOGLOBIN, TOTAL Routine 09/07/2024 10:11 AM EDT Type 2 diabetes mellitus with diabetic neuropathy, without long-term current use of insulin (HCC) MICROALBUMIN / CREATININE URINE RATIO Routine 01/28/2024 2:10 PM EDT Routine general medical examination at health care facility Type 2 diabetes mellitus with diabetic neuropathy, without long-term current use of insulin (HCC) COLOR FUNDUS PHOTOGRAPHY - OU - BOTH EYES Routine 07/30/2018 12:00 PM EST from Last 3 Months or Most Recently Relevant to Health Maintenance Results * POCT Glycated hemoglobin, total (09/07/2024 10:11 AM EDT) Hemoglobin A1C 5.9 Blood 09/07/2024 10:1 1 AM EDT Yossi Landers MD POINT OF CARE TEST ENTER/EDIT ORDERABLES Final Result * Microalbumin / creatinine urine ratio (01/28/2024 2:10 PM EDT) CREATININE, RANDOM URINE 76 20 - 275 mg/dL [facility] ALBUMIN, URINE 0.7 See Note: mg/dL [facility] Comment: Reference Range: Reference Range Not established ALBUMIN/CREATININE RATIO, RANDOM URINE 9 <30 mg/g creat [facility] Comment: The ADA defines abnormalities in albumin excretion as follows: Albuminuria Category Result (mg/g creatinine) Normal to Mildly increased <30 Moderately increased 30-299 Severely increased > OR = 300 The ADA recommends that at least two of three specimens collected within a 3-6 month period be abnormal before considering a patient to be within a diagnostic category. Urine Urine specimen obtained by clean catch procedure / Unknown 01/28/2024 2:10 PM EDT 01/28/2024 2:10 PM EDT Narrative [facility] - 01/29/2024 12:29 PM EDT SPLIT 01/20/2024 FROM [id number] Resulting Agency Comment Performing Organization Information Site ID: QPT Name: [facility] Address: [address] [place] [address], [address] [place] [phone] Director: Angel Conway MD us Yossi Landers MD LAB URINE ORDERABLES Final Res ult [facility] * Color Fundus Photography - OU - Both Eyes (07/30/2018 12:00 PM EST) Anatomical Region Laterality Modality Head Fundus Photograp hy 07/30/2018 12:0 0 PM EST Narrative 07/30/2018 12:00 PM EST PERFORMED AT [facility] LOCATION:[id number] No retinopathy Procedure Note CONVERSION, GENERIC - 11/05/2022 PERFORMED AT [facility] LOCATION:[id number] No retinopathy us Yossi Landers MD OPHTH PHOTOGRAPHY Final Result from Last 3 Months or Most Recently Relevant to Health Maintenance Insurance [facility] MEDICARE ADVANTAGE Care Teams Diesel Plant Operator Relationship Specialty Start Date End Date Yossi Landers MD [address] [facility] [address] [place] [address] PCP - General Internal Medicine 11/03/22 Yossi Landers MD [address] [facility] [address] [place] [address] PCP - [employer] 11/20/22 Daniela Alvarado LPN [address] [facility] [address] [place] [address] 09/09/24
--- OUTSIDE RECORDS SUMMARY | 2025-01-09 10:47 | XMS_ITS | Encounter Summary ---
Author Organization [facility] Address [address] [facility] [place] [address] Care Team Providers Care Wastewater Treatment Engineer Name Role Phone Yossi Landers MD Primary Care Provider Yossi Landers MD Unavailable [phone] Daniela Alvarado LPN Unavailable Encounter Details Date Type Department Care Team (Late st Contact Info) Description 12/29/2024 Bamboo flowsheet [facility] OB [address] [facility] [place] [address] Yen Auguste PA [address] [facility] [address] [address] [place], [facility] Social History Tobacco Use Types Packs/Day Years [...] any clubs o r organizations such as christianity groups, unions, fraternal or athletic groups, or [...] Recorded Patient Health Questionnaire-2 Score 0 11/07/2024 [facility] [place] of Occupat ional Health - Occupational Stress [...] on filedocumented in this encounter Care Teams Wastewater Treatment Engineer Relationship Specialty Start Date End Date Yossi Landers MD [address] [facility] 110 [place] [address] PCP - General Internal Medicine 11/03/22 Yossi Landers MD [address] [facility] 110 [place] [address] PCP - [employer] 11/20/22 Daniela Alvarado LPN [address] [address] 09/09/24 documented as of this encounter
--- OUTSIDE RECORDS SUMMARY | 2025-01-09 10:48 | XMS_ITS | Encounter Summary ---
Author Organization [facility] Address [address] [place] [address] Care Team Providers Care Nocturnist Name Role Phone Yossi Landers MD Primary Care Provider [phone] Yossi Landers MD Unavailable [phone] Seble Mejia RN Unavailable Daniela Alvarado LPN Unavailable Encounter Details Date Type Department Care Team (Late st Contact Info) Description 08/15/2024 Abstract [facility] CI FM [address] [facility] 110 [place] [address] Yossi Landers MD 112 [facility] 110 [place] [address] Social History Tobacco Use Types [...] How often do you attend chur or samaritan services? Never 11/12/2022 Do you belong to any clubs o r organizations such as restorationist groups, unions, fraternal or athletic groups, or [...] Date Recorded Patient Health Questionnaire-2 Score 0 07/25/2024 [facility] [place] of Occupat ional Health - Occupational Stress [...] on filedocumented in this encounter Care Teams Nocturnist Relationship Specialty Start Date End Date Yossi Landers MD [address] [email or web address] 110 [place] [address] PCP - General Internal Medicine 11/03/22 Yossi Landers MD [address] [place] [address] PCP - [employer] 11/20/22 Seble Mejia, RN [address] [place] [address] Clinical Advocate Family Medicine 07/29/24 09/09/24 Daniela Alvarado LPN 112 [facility] 110 [place] [address] 09/09/24 documented as of this encounter
--- OUTSIDE RECORDS SUMMARY | 2025-01-09 10:48 | XMS_ITS | Encounter Summary ---
Author Organization [facility] Address [address] [place] [address] Care Team Providers Care Head Start Director Name Role Phone Yossi Landers MD Primary Care Provider [phone] Yossi Landers MD Unavailable [phone] Seble Mejia RN Unavailable Daniela Alvarado LPN Unavailable Encounter Details Date Type Department Care Team (Late st Contact Info) Description 08/05/2023 Abstract [facility] [address] [facility] 110 [place] [address] Yossi Landers MD 112 [facility] 110 [place] [address] Social History Tobacco Use Types [...] often do you attend chur ch or methodist services? Never 11/12/2022 Do you belong to [...] Recorded Patient Health Questionnaire-2 Score 0 02/09/2023 [facility] of Occupat ional Health [...] on filedocumented in this encounter Care Teams Head Start Director Relationship Specialty Start Date End Date Yossi Landers MD [address] [facility] 110 [place] [address] PCP - General Internal Medicine 11/03/22 Yossi Landers MD [address] [place] [address] PCP - [employer] 11/20/22 Seble Mejia, RN [address] [place] [address] Clinical Advocate Family Medicine 07/29/24 09/09/24 Daniela Alvarado LPN [address] [place] [address] 09/09/24 documented as of this encounter
--- OUTSIDE RECORDS SUMMARY | 2025-01-09 10:48 | XMS_ITS | Encounter Summary ---
Author Organization [facility] Address [address] [place] [address] Care Team Providers Care Hand Therapist Name Role Phone Yossi Landers MD Primary Care Provider [phone] Yossi Landers MD Unavailable [phone] Seble Mejia RN Unavailable Daniela Alvarado LPN Unavailable Encounter Details Date Type Department Care Team (Late st Contact Info) Description 10/01/2023 Abstract [facility] FM [address] [facility] 110 [place] [address] Yossi Landers MD 112 [facility] 110 [place] [address] Social History Tobacco Use Types [...] any clubs o r organizations such as muslim groups, unions, fraternal or athletic groups, or [...] Recorded Patient Health Questionnaire-2 Score 0 02/09/2023 [facility] of Occupat ional Health - Occupational Stress [...] place to sleep or slept in a detention (including now)? No 11/12/2022 Comments Unknown Sex and Gender Information Value Date Recorded Sex Assigned at Not on file Legal Sex Female 6:57 PM EDT Gender Identity Not on file Sexual Orientation Not on file documented as of this encounter Plan of Treatment Not on file documented as of this encounter Visit Diagnoses Not on filedocumented in this encounter Care Teams Hand Therapist Relationship Specialty Start Date End Date Yossi Landers MD [address] [facility] 110 [place] [address] PCP - General Internal Medicine 11/03/22 Yossi Landers MD [address] [place] [address] PCP - [employer] 11/20/22 Seble Mejia, RN [address] [place] [address] Clinical Advocate Family Medicine 07/29/24 09/09/24 Daniela Alvarado LPN [address] [place] [address] 09/09/24 documented as of this encounter
--- OUTSIDE RECORDS SUMMARY | 2025-01-09 10:48 | XMS_ITS | Encounter Summary ---
Author Organization [facility] Address [address] [place] [address] Care Team Providers Care Family Preservation Officer Name Role Phone Yossi Landers MD Primary Care Provider [phone] Yossi Landers MD Unavailable [phone] Seble Mejia RN Unavailable Daniela Alvarado LPN Unavailable Encounter Details Date Type Department Care Team (Late st Contact Info) Description 05/27/2024 Clinisync Result Encounter [facility] External Department Unsolicited Yossi Landers MD [address] [place] 110 [place] [address] Social History Tobacco Use Types Packs/Day Years [...] week 11/12/2022 How often do you attend [facility] or hoahaoism services? Never 11/12/2022 Do you belong to any clubs o r organizations such as voodoo groups, unions, fraternal or athletic groups, or [...] Recorded Patient Health Questionnaire-2 Score 0 10/12/2023 [facility] of Occupat ional Health - Occupational [...] Procedure Name Priority Date/Time Associated Diagnosis Comments CA ECHO DOPPLER COMPLETE 05/27/2024 6:01 PM EST documented in this encounter Results * CA ECHO DOPPLER COMPLETE (05/27/2024 6:01 PM EST) Anatomical Region Laterality Modality Other 05/27/2024 6:01 PM EST Narrative 05/27/2024 6:02 PM EST The [address] [address] Cardiology Report Signed Patient: JAQUELIN NORWOOD MR#: [id number] : 1940 Acct:[id number] Age/Sex: 84 / F ADM Date: 05/27/24 Loc: CARD Attending Dr: YOSSI LANDERS Ordering Physician: YOSSI LANDERS Date of Service: 05/27/24 Procedure(s): CA echo doppler complete Accession Number(s): [id number] cc: JORDANMATTHEWYOSSI Patient Name: JAQUELIN NORWOOD MR#: [id number] : 1940 Exam Date: 05/27/2024 Ordering Doctor: DR YOSSI LANDERS M.D. ECHOCARDIOGRAM REPORT PROCEDURE: CA ECHO DOPPLER COMPLETE INDICATIONS: Chronic combined systolic and diastolic heart failure, hypertension, diabetes COMPARISON: None. DESCRIPTION: COMPLETE ECHOCARDIOGRAM Real-time transthoracic echocardiography with 2D, M-mode, spectral and color flow Doppler performed. QUALITY: Technical quality was good. LEFT VENTRICLE: Normal chamber size. Borderline left ventricular hypertrophy. LV EF: Normal left ventricular ejection fraction, 60%. No regional wall motion abnormalities. DIASTOLIC: Diastolic function is indeterminate ATRIAL SEPTUM: Visually appears intact. LEFT ATRIUM: Mild dilatation. RIGHT ATRIUM: Normal chamber size. RIGHT VENTRICLE: Normal chamber size. Decreased right ventricular systolic function. Could not evaluate Pulmonary atrial pressure due to lack of TR TRICUSPID VALVE: Normal mobility and thickness. No stenosis with no regurgitation. MITRAL VALVE: Normal mobility and thickness. No evidence of mitral valve stenosis. Mild mitral annular calcification. Trivial mitral regurgitation. AORTIC VALVE: Normal trileaflet appearance. Mildly calcified aortic valve. Normal leaflet mobility. No evidence of aortic valve stenosis. No aortic regurgitation. AORTIC ROOT: Normal diameter and appearance. PULMONIC VALVE: Normal thickness and mobility. No stenosis. PERICARDIUM: Small pericardial effusion with fibrinous appearance . No evidence of tamponade. IVC: IVC is dilated (2.6 cm), does not fully collapse, consistent with elevated central venous pressure, RAP 15 mmHg PLEURA: CONCLUSION: Normal left ventricle chamber size. Borderline left ventricular hypertrophy. Normal left ventricular ejection fraction, 60%. No regional wall motion abnormalities. Normal right ventricle chamber size. Decreased right ventricular systolic function Small pericardial effusion with fibrinous appearance . No evidence of tamponade. IVC is dilated (2.6 cm), does not fully collapse, consistent with elevated central venous pressure, RAP 15 mmHg No significant valvular abnormalities Adult Echocardiography Procedure Report Left Ventricle LVEDD (3.7 - 5.6 cm): 4.41 cm LVESD (2.2 - 4.0 cm): 3.15 cm LVIVS thickness (0.6 - 1.2 cm): 0.75 cm LVPW thickness (0.5 - 1.0 cm): 1.01 cm e': 0.06 m/s E - e': 13.60 LVOT Max Gradient: 1.74 mm[Hg] LVOT Area (cm2): 0.66 m/s Peak Velocity (LVOT): 0.66 m/s Mean Velocity (LVOT): 0.44 m/s LVOT Diameter 2.08 cm Left Atrium LA Volume Index (2D A2C): 39.49 ml/m2 Left Atrium Systolic Dimension: 3.41 cm Mitral Valve MV E to A Ratio: 0.87 Mitral Valve A-Wave Peak Velocity: 1.02 m/s Mitral Valve E-Wave Peak Velocity: 0.88 m/s Right Ventricle Aorta AO Root Diam: 3.05 cm Aortic Valve AoV Area (Peak Piotr): 1.35 cm2, 1.35 cm2 AoV Area (VTI): 1.51 cm2, 1.51 cm2 Peak Velocity(Antegrade Flow): 1.65 m/s Peak Gradient(Antegrade Flow): 10.87 mm[Hg] Mean Velocity(Antegrade Flow): 1.14 m/s Mean Gradient(Antegrade Flow): 5.95 mm[Hg] Velocity Time Integral: 42.78 cm Tricuspid Valve Pulmonic Valve Mean Gradient: 2.27 mm[Hg] Mean Velocity: 0.70 m/s Peak Velocity: 1.08 m/s, 1.04 m/s Peak Gradient: 4.33 mm[Hg], 4.69 mm[Hg] Right Atrium Right Atrium Systolic Pressure: 20.97 ml, 20.97 ml Dictated by: Nataliya Olivares MD on 05/27/2024 at 17:40 Approved by: Nataliya Olivares MD on 05/27/2024 at 18:01 Dictated By: Nataliya Olivares M.D. Signed By: 05/27/241801 DD/ 00 TD/TT: Parts Inspector: Procedure Note Radiology, Radiologist, - 05/27/2024 [place] [address] Cardiology Report Signed Patient: JAQUELIN NORWOOD JMR#: [id number] : 1940cct:[id number] Age/Sex: 84 / FADM Date: 05/27/24 Loc: CARD Attending Dr: YOSSI LANDERS Ordering Physician: YOSSI LANDERS Date of Service: 05/27/24 Procedure(s): CA echo doppler complete Accession Number(s): [id number] cc: YOSSI LANDERS Patient Name: JAQUELIN NORWOOD MR#: [id number] : 1940 Exam Date: 05/27/2024 Ordering Doctor: DR YOSSI LANDERS M.D. ECHOCARDIOGRAM REPORT PROCEDURE: CA ECHO DOPPLER COMPLETE INDICATIONS: Chronic combined systolic and diastolic heart failure, hypertension, diabetes COMPARISON: None. DESCRIPTION: COMPLETE ECHOCARDIOGRAM Real-time transthoracic echocardiography with 2D, M-mode, spectral and color flow Dopplerperformed. QUALITY: Technical quality was good. LEFT VENTRICLE: Normal chamber size. Borderline left ventricular hypertrophy. LV EF: Normal left ventricular ejection fraction, 60%. No regionalwall motion abnormalities. DIASTOLIC: Diastolic function is indeterminate ATRIAL SEPTUM: Visually appears intact. LEFT ATRIUM: Mild dilatation. RIGHT ATRIUM: Normal chamber size. RIGHT VENTRICLE: Normal chamber size. Decreased right ventricularsystolic function. Could not evaluate Pulmonary atrial pressure due to lack of TR TRICUSPID VALVE: Normal mobility and thickness. No stenosis with no regurgitation. MITRAL VALVE: Normal mobility and thickness. No evidence of mitralvalve stenosis. Mild mitral annular calcification. Trivial mitralregurgitation. AORTIC VALVE: Normal trileaflet appearance. Mildly calcified aorticvalve. Normal leaflet mobility. No evidence of aortic valve stenosis. No aortic regurgitation. AORTIC ROOT: Normal diameter and appearance. PULMONIC VALVE: Normal thickness and mobility. No stenosis. PERICARDIUM: Small pericardial effusion with fibrinous appearance .No evidence of tamponade. IVC: IVC is dilated (2.6 cm), does not fully collapse, consistent with elevated central venous pressure, RAP 15 mmHg PLEURA: CONCLUSION: Normal left ventricle chamber size. Borderline left ventricularhypertrophy. Normal left ventricular ejection fraction, 60%. No regional wall motion abnormalities. Normal right ventricle chamber size. Decreased right ventricular systolic function Small pericardial effusion with fibrinous appearance . No evidence of tamponade. IVC is dilated (2.6 cm), does not fully collapse, consistent with elevated central venous pressure, RAP 15 mmHg No significant valvular abnormalities Adult Echocardiography Procedure Report Left Ventricle LVEDD (3.7 - 5.6 cm): 4.41 cm LVESD (2.2 - 4.0 cm): 3.15 cm LVIVS thickness (0.6 - 1.2 cm): 0.75 cm LVPW thickness (0.5 - 1.0 cm): 1.01 cm e': 0.06 m/s E - e': 13.60 LVOT Max Gradient: 1.74 mm[Hg] LVOT Area (cm2): 0.66 m/s Peak Velocity (LVOT): 0.66 m/s Mean Velocity (LVOT): 0.44 m/s LVOT Diameter 2.08 cm Left Atrium LA Volume Index (2D A2C): 39.49 ml/m2 Left Atrium Systolic Dimension: 3.41 cm Mitral Valve MV E to A Ratio: 0.87 Mitral Valve A-Wave Peak Velocity: 1.02 m/s Mitral Valve E-Wave Peak Velocity: 0.88 m/s Right Ventricle Aorta AO Root Diam: 3.05 cm Aortic Valve AoV Area (Peak Piotr): 1.35 cm2, 1.35 cm2 AoV Area (VTI): 1.51 cm2, 1.51 cm2 Peak Velocity(Antegrade Flow): 1.65 m/s Peak Gradient(Antegrade Flow): 10.87 mm[Hg] Mean Velocity(Antegrade Flow): 1.14 m/s Mean Gradient(Antegrade Flow): 5.95 mm[Hg] Velocity Time Integral: 42.78 cm Tricuspid Valve Pulmonic Valve Mean Gradient: 2.27 mm[Hg] Mean Velocity: 0.70 m/s Peak Velocity: 1.08 m/s, 1.04 m/s Peak Gradient: 4.33 mm[Hg], 4.69 mm[Hg] Right Atrium Right Atrium Systolic Pressure: 20.97 ml, 20.97 ml Dictated by: Nataliya Olivares MD on 05/27/2024 at 17:40 Approved by: Nataliya Olivares MD on 05/27/2024 at 18:01 Dictated By: Nataliya Olivares M.D. Signed By:05/27/24 180 DD/ 180 TD/TT: Parts Inspector: Yossi Landers MD [facility] Final Result documented in this encounter Visit Diagnoses Not on filedocumented in this encounter Care Teams Family Preservation Officer Relationship Specialty Start Date End Date Yossi Landers MD [address] [place] [address] PCP - General Internal Medicine 11/03/22 Yossi Landers MD [address] [place] [address] PCP - [employer] 11/20/22 Seble Mejia, CIPRIANO [address] [facility] [place] [address] Clinical Advocate Family Medicine 07/29/24 09/09/24 Daniela Alvarado LPN [address] [place] [address] 09/09/24 documented as of this encounter
--- OUTSIDE RECORDS SUMMARY | 2025-01-09 10:48 | XMS_ITS | Encounter Summary ---
Author Organization [facility] Address [address] [place] [address] Care Team Providers Care Electrician Aircraft Name Role Phone Yossi Landers MD Primary Care Provider [phone] Yossi Landers MD Unavailable [phone] Seble Mejia RN Unavailable Daniela Alvarado LPN Unavailable Encounter Details Date Type Department Care Team (Late st Contact Info) Description 12/02/2023 Abstract [facility] FM 112 [facility] 110 [place] [address] Yossi Landers MD 112 [facility] 110 [place] [address] Social History Tobacco Use Types [...] Recorded Patient Health Questionnaire-2 Score 0 10/12/2023 [facility] of Occupat ional Health - [...] on filedocumented in this encounter Care Teams Electrician Aircraft Relationship Specialty Start Date End Date Yossi Landers MD [address] [facility] 110 [place] [address] PCP - General Internal Medicine 11/03/22 Yossi Landers MD [address] [place] [address] PCP - [employer] 11/20/22 Seble Mejia, RN [address] [place] [address] Clinical Advocate Family Medicine 07/29/24 09/09/24 Daniela Alvarado LPN [address] [place] [address] 09/09/24 documented as of this encounter
--- OUTSIDE RECORDS SUMMARY | 2025-01-09 10:48 | XMS_ITS | Encounter Summary ---
Author Organization [facility] Address [address] [place] [address] Care Team Providers Care Balance Truer Name Role Phone Yossi Landers MD Primary Care Provider Yossi Landers MD Unavailable [phone] Seble Mejia RN Unavailable Daniela Alvarado LPN Unavailable Encounter Details Date Type Department Care Team (Late st Contact Info) Description 08/19/2023 Abstract [facility] FM 112 [facility] 110 [place] [address] Yossi Landers MD 112 [facility] 110 [place] [address] Social History Tobacco Use Types [...] often do you attend chur ch or restorationism services? Never 11/12/2022 Do you belong to any clubs o r organizations such as islam groups, unions, fraternal or athletic groups, or [...] Recorded Patient Health Questionnaire-2 Score 0 02/09/2023 [facility] of Occupat ional Health [...] place to sleep or slept in a skilled nursing (including now)? No 11/12/2022 Comments Unknown Sex and Gender Information Value Date Recorded Sex Assigned at Not on file Legal Sex Female 6:57 PM EDT Gender Identity Not on file Sexual Orientation Not on file documented as of this encounter Plan of Treatment Not on file documented as of this encounter Visit Diagnoses Not on filedocumented in this encounter Care Teams Balance Truer Relationship Specialty Start Date End Date Yossi Landers MD [address] [facility] 110 [place] [address] PCP - General Internal Medicine 11/03/22 Yossi Landers MD [address] [place] [address] PCP - [employer] 11/20/22 Seble Mejia, RN [address] [place] [address] Clinical Advocate Family Medicine 07/29/24 09/09/24 Daniela Alvarado LPN [address] [place] [address] 09/09/24 documented as of this encounter
--- OUTSIDE RECORDS SUMMARY | 2025-01-09 10:48 | XMS_ITS | Encounter Summary ---
Author Organization [facility] Address [address] [place] [address] Care Team Providers Care Homebound Teacher Name Role Phone Yossi Landers MD Primary Care Provider [phone] Yossi Landers MD Unavailable [phone] Seble Mejia RN Unavailable Daniela Alvarado LPN Unavailable Encounter Details Date Type Department Care Team (Late st Contact Info) Description 10/13/2023 Abstract [facility] FM 112 [facility] 110 [place] [address] Yossi Landers MD 112 [facility] 110 [place] [address] Social History Tobacco Use Types [...] often do you attend chur ch or mu-ism services? Never 11/12/2022 Do you belong to [...] Recorded Patient Health Questionnaire-2 Score 0 10/12/2023 [facility] of Occupat ional Health - [...] on filedocumented in this encounter Care Teams Homebound Teacher Relationship Specialty Start Date End Date Yossi Landers MD [address] [facility] 110 [place] [address] PCP - General Internal Medicine 11/03/22 Yossi Landers MD [address] [place] [address] PCP - [employer] 11/20/22 Seble Mejia, RN [address] [place] [address] Clinical Advocate Family Medicine 07/29/24 09/09/24 Daniela Alvarado LPN [address] [place] [address] 09/09/24 documented as of this encounter
--- OUTSIDE RECORDS SUMMARY | 2025-01-09 10:48 | XMS_ITS | Encounter Summary ---
Author Organization [facility] Address [address] [place] [address] Care Team Providers Care Conductor/Engineer Name Role Phone Yossi Landers MD Primary Care Provider Yossi Landers MD Unavailable [phone] Seble Mejia RN Unavailable [phone] Daniela Alvarado LPN Unavailable Encounter Details Date Type Department Care Team (Late st Contact Info) Description 08/27/2023 Abstract [facility] CI FM 112 [facility] 110 [place] [address] Yossi Landers MD 112 [facility] 110 [place] [address] Social History Tobacco Use Types [...] often do you attend chur ch or caodaism services? Never 11/12/2022 Do you belong to any clubs o r organizations such as quaker groups, unions, fraternal or athletic groups, or [...] Recorded Patient Health Questionnaire-2 Score 0 02/09/2023 [facility] of Occupat ional Health - Occupational Stress [...] on filedocumented in this encounter Care Teams Conductor/Engineer Relationship Specialty Start Date End Date Yossi Landers MD [address] [facility] 110 [place] [address] PCP - General Internal Medicine 11/03/22 Yossi Landers MD [address] [place] [address] PCP - [employer] 11/20/22 Seble Mejia, RN [address] [place] [address] Clinical Advocate Family Medicine 07/29/24 09/09/24 Daniela Alvarado LPN [address] [place] [address] 09/09/24 documented as of this encounter
--- OUTSIDE RECORDS SUMMARY | 2025-01-09 10:48 | XMS_ITS | Encounter Summary ---
Author Organization [facility] Address [address] [place] [address] Care Team Providers Care Plasticator Name Role Phone Yossi Landers MD Primary Care Provider Yossi Landers MD Unavailable [phone] Seble Mejia RN Unavailable Daniela Alvarado LPN Unavailable Encounter Details Date Type Department Care Team (Late st Contact Info) Description 08/05/2023 Abstract [facility] CI FM 112 [facility] 110 [place] [address] Yossi Landers MD 112 [facility] 110 [place] [address] Social History Tobacco Use Types [...] any clubs o r organizations such as zoroastrianism groups, unions, fraternal or athletic groups, or [...] Recorded Patient Health Questionnaire-2 Score 0 02/09/2023 [facility] of Occupat ional Health [...] place to sleep or slept in a prison (including now)? No 11/12/2022 Comments Unknown Sex and Gender Information Value Date Recorded Sex Assigned at Not on file Legal Sex Female 6:57 PM EDT Gender Identity Not on file Sexual Orientation Not on file documented as of this encounter Plan of Treatment Not on file documented as of this encounter Visit Diagnoses Not on filedocumented in this encounter Care Teams Plasticator Relationship Specialty Start Date End Date Yossi Landers MD [address] [facility] 110 [place] [address] PCP - General Internal Medicine 11/03/22 Yossi Landers MD [address] [place] [address] PCP - [employer] 11/20/22 Seble Mejia, RN [address] [place] [address] Clinical Advocate Family Medicine 07/29/24 09/09/24 Daniela Alvarado LPN [address] [place] [address] 09/09/24 documented as of this encounter
--- OUTSIDE RECORDS SUMMARY | 2025-01-09 10:48 | XMS_ITS | Encounter Summary ---
Author Organization [facility] Address [address] [place] [address] Care Team Providers Care Supervisor Fiber Locking Name Role Phone Yossi Landers MD Primary Care Provider Yossi Landers MD Unavailable [phone] Seble Mejia RN Unavailable Daniela Alvarado LPN Unavailable Encounter Details Date Type Department Care Team (Late st Contact Info) Description 12/02/2023 Abstract [facility] 112 [facility] 110 [place] [address] Yossi Landers MD 112 [facility] 110 [place] [address] Social History Tobacco Use Types [...] often do you attend chur ch or uatsdin services? Never 11/12/2022 Do you belong to [...] Recorded Patient Health Questionnaire-2 Score 0 10/12/2023 [facility] of Occupat ional Health - Occupational [...] filedocumented in this encounter Care Teams Supervisor Fiber Locking Relationship Specialty Start Date End Date Yossi Landers MD [address] [facility] 110 [place] [address] PCP - General Internal Medicine 11/03/22 Yossi Landers MD [address] [place] [address] PCP - [employer] 11/20/22 Seble Mejia, RN [address] [place] [address] Clinical Advocate Family Medicine 07/29/24 09/09/24 Daniela Alvarado LPN [address] [place] [address] 09/09/24 documented as of this encounter
--- OUTSIDE RECORDS SUMMARY | 2025-01-09 10:48 | XMS_ITS | Encounter Summary ---
Author Organization [facility] Address [address] [place] [address] Care Team Providers Care Pharmacist Assistant Name Role Phone Yossi Landers MD Primary Care Provider [phone] Yossi Landers MD Unavailable [phone] Seble Mejia RN Unavailable [phone] Daniela Alvarado LPN Unavailable Encounter Details Date Type Department Care Team (Late st Contact Info) Description 01/27/2023 Abstract [facility] 112 [facility] 110 [place] [id number] Yossi Landers MD 112 [facility] 110 [place], [place] [address] Social History Tobacco Use Types Packs/Day Years [...] often do you attend chur ch or mosque services? Never 11/12/2022 Do you belong to any clubs o r organizations such as oriental orthodox groups, unions, fraternal or athletic groups, or [...] 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 Not very hard 11/12/2022 [facility] [place] of Occupat ional Health - Occupational Stress [...] on filedocumented in this encounter Care Teams Pharmacist Assistant Relationship Specialty Start Date End Date Yossi Landers MD [address] [address] PCP - General Internal Medicine 11/03/22 Yossi Landers MD [address] [facility] 110 [place] [address] PCP - [employer] 11/20/22 Seble Mejia, CIPRIANO [address] [place] [address] Clinical Advocate Family Medicine 07/29/24 09/09/24 Daniela Alvarado LPN [address] [address] 09/09/24 documented as of this encounter
--- OUTSIDE RECORDS SUMMARY | 2025-01-09 10:48 | XMS_ITS | Clinical Summary ---
Author Organization [facility], [address] [place] [address] Care Team Providers Care Client Relationship Consultant Name Role Phone Unavailable Primary Care Provider Unavailabl e Encounters Date Type Department Care Team Description 01/02/2025 Abstract [facility] [address] [place] [address] [address] [place] [address] Alla Kirby APRN - RON 01/02/2025 Abstract [facility] [address] [place] [address] [address] [place], [place] [id number] Elvin Mendez DO from Last 3 Months Family History Relation Name Status Comments Brother Alive Father Mother Sister Alive Social History Tobacco Use Types Packs/Day Years Used Date Smoking Tobacco: Former Cigarettes Q uit: 10/2012 Smokeless Tobacco: Never Tobacco Cessation:Counseling Given: Not Answered Alcohol Use Standard Drinks/Week Comments Never 0 (1 standard drink = 0.6 oz pur e alcohol) Comments Unknown Sex and Gender Information Value Date Recorded Sex Assigned at Not on file Legal Sex Female 1:32 PM EST Gender Identity Not on file Sexual Orientation Not on file Plan of Treatment Upcoming Encounters Date Type Department Care Team (Late st Contact Info) Description 01/30/2025 2:00 PM EDT Office Visit [facility] [address] [facility] [address] [place] [address] Alla Kirby, BOOKKEEPING MACHINE OPERATOR - CERTIFIED MEDICAL CODING SPECIALIST [address] [facility] [address] [place] [address] Allyssa/Needs Pessary/Humana *CHINESE MEDICINE PRACTITIONER Pack back Health Maintenance Due Date Last Done Comments Depression Screen 1954 DTaP/Tdap/Td vaccine (1 - Tdap) 1961 Pneumococcal 50+ years Vacci ne (1 of 1 - PCV) 1992 Shingles vaccine (1 of 2) 1992 DEXA (modify frequency per F RAX score) 1997 Respiratory Syncytial Virus (RSV) or age 60 yrs+ (1 - 1-dose 75+ series) 2017 COVID-19 Vaccine (2023-2 5 season) 2024 Flu vaccine (#1) 01/20/2025 Hepatitis A vaccine Aged Out No longe r eligible based on patient's age to complete this topic Hepatitis B vaccine Aged Out No longe r eligible based on patient's age to complete this topic Hib vaccine Aged Out No longer eligi ble based on patient's age to complete this topic Meningococcal (ACWY) vaccine Aged Out No longer eligible based on patient's age to complete this topic Meningococcal B vaccine Aged Out No l onger eligible based on patient's age to complete this topic Polio vaccine Aged Out No longer elig ible based on patient's age to complete this topic
--- OUTSIDE RECORDS SUMMARY | 2025-01-09 10:48 | XMS_ITS | Encounter Summary ---
Author Organization [facility] Address [address] [facility], [address] [place] [address] Care Team Providers Care Bobbin Sorter Name Role Phone Unavailable Primary Care Provider Unavailabl e Encounter Details Date Type Department Care Team (Late st Contact Info) Description 01/02/2025 Abstract [facility] [address] [facility] [address] [place] [address] Elvin Mendez DO [address] [facility] 320 [place] [address] Social History Tobacco Use Types Packs/Day Years Used Date Smoking Tobacco: Never Assessed Comments Unknown Sex and Gender Information Value Date Recorded Sex Assigned at Not on file Legal Sex Female 1:32 PM EST Gender Identity Not on file Sexual Orientation Not on file documented as of this encounter Plan of Treatment Upcoming Encounters Date Type Department Care Team (Late st Contact Info) Description 01/30/2025 2:00 PM EDT Office Visit [facility] [address] [facility] [address] [place] [address] Alla Kirby, PIECE DYE WORKER - BEAUTY SCHOOL INSTRUCTOR [address] [facility] [address] [place] [address] Allyssa/Needs Pessary/[employer] *REGIONAL SALES TRAINER Pack back documented as of this encounter Visit Diagnoses Not on filedocumented in this encounter
--- OUTSIDE RECORDS SUMMARY | 2025-01-09 10:48 | XMS_ITS | Clinical Summary ---
Author Organization [facility] Address [address] [place] [address] Phone Care Team Providers Care Greens Planter Name Role Phone Unavailable Primary Care Provider Unavailabl e Social History Tobacco Use Types Packs/Day Years Used Date Smoking Tobacco: Never Assessed Comments Unknown Sex and Gender Information Value Date Recorded Sex Assigned at Not on file Legal Sex Female 1:28 PM EST Gender Identity Not on file Sexual Orientation Not on file Last Filed Vital Signs Vital Sign Reading Time Taken Comments Blood Pressure 120/64 02/26/2022 3:04 PM EDT Pulse 72 02/26/2022 3:04 PM EDT Temperature - - Respiratory Rate - - Oxygen Saturation - - Inhaled Oxygen Concentration - - Weight 94.8 kg (209 lb) 10/15/2021 12:59 PM EDT Height 162.6 cm (5' 4 ) 02/26/2022 3:04 PM EDT Body Mass Index 35.87 10/15/2021 12:59 PM EDT Plan of Treatment Health Maintenance Due Date Last Done Comments Bone Density Scan 1942 Lipid Panel 1942 DTaP/Tdap/Td Vaccines (1 - Tdap) 1964 Zoster Vaccines (1 of 2) 1992 RSV High Risk: (Elderly (60+) or Population) (1 - 1-dose 75+ series) 2017 Pneumococcal Vaccine (2 of 2 - PPSV23, PCV20, or PCV21) 07/02/2018 05/07/2018 Yearly Adult Physical 08/13/2022 08/12/2021 , 08/01/2020, 07/04/2019, Additional history exists COVID-19 Vaccine ( - 2023- season) 2024 Influenza Vaccine (#1) 2025 HIB Vaccines Aged Out No longer eligi ble based on patient's age to complete this topic HPV Vaccines Aged Out No longer eligi ble based on patient's age to complete this topic Hepatitis A Vaccines Aged Out No long er eligible based on patient's age to complete this topic Hepatitis B Vaccines Aged Out No long er eligible based on patient's age to complete this topic IPV Vaccines Aged Out No longer eligi ble based on patient's age to complete this topic Meningococcal Vaccine Aged Out No chuck piper eligible based on patient's age to complete this topic Rotavirus Vaccines Aged Out No longer eligible based on patient's age to complete this topic
--- OUTSIDE RECORDS SUMMARY | 2025-01-09 10:48 | XMS_ITS | Encounter Summary ---
Author Organization [facility] Address [address] [facility] [place] [address] Care Team Providers Care Eye Technician Name Role Phone Yossi Landers MD Primary Care Provider [phone] Yossi Landers MD Unavailable [phone] Daniela Alvarado LPN Unavailable Encounter Details Date Type Department Care Team (Late st Contact Info) Description 12/30/2024 Abstract [facility] [address] [facility] [place] [address] Demario Spivey, DO [address] [facility] [address] [place] [place], [place] [address] Social History Tobacco Use Types Packs/Day Years [...] How often do you attend chur or anabaptist services? Never 11/12/2022 Do you belong to any clubs o r organizations such as baptism groups, unions, fraternal or athletic groups, or [...] Recorded Patient Health Questionnaire-2 Score 0 11/07/2024 [facility] [place] of Occupat ional Health - Occupational Stress [...] on filedocumented in this encounter Care Teams Eye Technician Relationship Specialty Start Date End Date Yossi Landers MD [address] [facility] 110 [place] [address] PCP - General Internal Medicine 11/03/22 Yossi Landers MD [address] [facility] 110 [place] [address] PCP - [employer] 11/20/22 Daniela Alvarado LPN [address] [facility] 110 [place] [address] 09/09/24 documented as of this encounter
--- OUTSIDE RECORDS SUMMARY | 2025-01-09 10:48 | XMS_ITS | Encounter Summary ---
Author Organization [facility] Address [address] [place] [address] Care Team Providers Care Owner Consulting Engineer Name Role Phone Yossi Landers MD Primary Care Provider Yossi Landers MD Unavailable [phone] Seble Mejia RN Unavailable [phone] Daniela Alvarado LPN Unavailable Encounter Details Date Type Department Care Team (Late st Contact Info) Description 10/06/2023 Abstract [facility] 112 [facility] 110 [place] [address] Yossi Landers MD 112 [facility] 110 [place] [address] Social History Tobacco Use Types [...] often do you attend chur ch or taoist services? Never 11/12/2022 Do you belong to any clubs o r organizations such as yarsanism groups, unions, fraternal or athletic groups, or [...] Recorded Patient Health Questionnaire-2 Score 0 02/09/2023 [facility] of Occupat ional Health - Occupational [...] on filedocumented in this encounter Care Teams Owner Consulting Engineer Relationship Specialty Start Date End Date Yossi Landers MD [address] [facility] 110 [place] [address] PCP - General Internal Medicine 11/03/22 Yossi Landers MD [address] [place] [address] PCP - Humana 11/20/22 Seble Mejia, RN [address] [place] [address] Clinical Advocate Family Medicine 07/29/24 09/09/24 Daniela Alvarado LPN [address] [place] [address] 09/09/24 documented as of this encounter
--- OUTSIDE RECORDS SUMMARY | 2025-01-09 10:48 | XMS_ITS | Encounter Summary ---
Author Organization [facility] Address [address] [place] [address] Care Team Providers Care Licensed Midwife Name Role Phone Yossi Landers MD Primary Care Provider [phone] Yossi Landers MD Unavailable [phone] Seble Mejia RN Unavailable Daniela Alvarado LPN Unavailable Encounter Details Date Type Department Care Team (Late st Contact Info) Description 01/14/2023 Abstract [facility] 112 [facility] 110 [place] [address] Yossi Landers MD 112 [facility] 110 [place], [place] [address] Social History Tobacco Use Types Packs/Day Years [...] any clubs o r organizations such as buddhism groups, unions, fraternal or athletic groups, or [...] 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 Not very hard 11/12/2022 [facility] [place] of Occupat ional Health - Occupational Stress [...] on filedocumented in this encounter Care Teams Licensed Midwife Relationship Specialty Start Date End Date Yossi Landers MD [address] [facility] 110 [place] [address] PCP - General Internal Medicine 11/03/22 Yossi Landers MD [address] [place] [address] PCP - Humana 11/20/22 Seble eMjia, CIPRIANO [address] [place] [address] [place] [address] Clinical Advocate Family Medicine 07/29/24 09/09/24 Daniela Alvarado LPN [address] [place] [address] 09/09/24 documented as of this encounter
--- OUTSIDE RECORDS SUMMARY | 2025-01-09 10:48 | XMS_ITS | Encounter Summary ---
Author Organization [facility] Address [address] [place] [address] Care Team Providers Care Mining Engineering Technologist Name Role Phone Yossi Landers MD Primary Care Provider [phone] Yossi Landers MD Unavailable [phone] Daniela Alvarado LPN Unavailable Encounter Details Date Type Department Care Team (Latest Contact Info) Description 01/09/2025 Travel Social History Tobacco Use Types Packs/Day Years [...] How often do you attend chur or yazidism services? Never 11/12/2022 Do you belong to [...] Recorded Patient Health Questionnaire-2 Score 2 [facility]/09/20[facility] Questionnaire Answer Date [...] doing things Several days 01/09/2025 9:48 AM CHACHA HUGHES Feeling down, depressed, or hopeless Several days 12/21 9:48 AM CHACHA HUGHES Patient Health Questionnaire-2 Score 2 12/21 9:48 AM CHACHA HUGHES * If you checked off any problems on this questionnaire so far, Question Answer Date of Assessment Author How difficult have these problems made it for you to do your work, take care of things at home, or get along with other people? Somewhat difficult 01/09/2025 9:48 AM CHACHA HUGHES documented as of this encounter Plan of Treatment Not on file documented as of this encounter Visit Diagnoses Not on filedocumented in this encounter Care Teams Mining Engineering Technologist Relationship Specialty Start Date End Date Yossi Landers MD [address] [place] [address] PCP - General Internal Medicine 11/03/22 Yossi Landers MD [address] [place] [address] PCP - Humana 11/20/22 Daniela Alvarado LPN [address] [address] 09/09/24 documented as of this encounter
--- OUTSIDE RECORDS SUMMARY | 2025-01-09 10:48 | XMS_ITS | Encounter Summary ---
Author Organization [facility] Address [address] [place] [address] Care Team Providers Care Engineering Instructor Name Role Phone Yossi Landers MD Primary Care Provider [phone] Yossi Landers MD Unavailable [phone] Seble Mejia RN Unavailable Daneila Alvarado LPN Unavailable Encounter Details Date Type Department Care Team (Late st Contact Info) Description 01/14/2023 Abstract [facility] 112 [facility] 110 [place] [address] Yossi Landers MD 112 [facility] 110 [employer] [place], [place] [address] Social History Tobacco Use Types Packs/Day Years [...] often do you attend chur ch or adventism services? Never 11/12/2022 Do you belong to any clubs o r organizations such as catholic groups, unions, fraternal or athletic groups, [...] 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 Not very hard 11/12/2022 [facility] [place] of Occupat ional Health - Occupational Stress [...] on filedocumented in this encounter Care Teams Engineering Instructor Relationship Specialty Start Date End Date Yossi Landers MD [address] [facility] 110 [place] [address] PCP - General Internal Medicine 11/03/22 Yossi Landers MD [address] [place] [address] PCP - Humana 11/20/22 Seble Mejia, CIPRIANO [address] [place] [place] [address] Clinical Advocate Family Medicine 07/29/24 09/09/24 Daniela Alvarado LPN [address] [place] [address] 09/09/24 documented as of this encounter
--- OUTSIDE RECORDS SUMMARY | 2025-01-09 10:48 | XMS_ITS | Encounter Summary ---
Author Organization [facility] Address [address] [place] [address] Care Team Providers Care Senior Portfolio Manager Name Role Phone Yossi Landers MD Primary Care Provider Yossi Landers MD Unavailable [phone] Seble Mejia RN Unavailable [phone] Daniela Alvarado LPN Unavailable Encounter Details Date Type Department Care Team (Late st Contact Info) Description 08/19/2023 Abstract [facility] 112 [facility] 110 [place] [address] Yossi Landers MD 112 [facility] 110 [place] [address] Social History Tobacco Use Types [...] often do you attend chur ch or church services? Never 11/12/2022 Do you belong to [...] Recorded Patient Health Questionnaire-2 Score 0 02/09/2023 [facility] of Occupat ional Health - Occupational Stress [...] on filedocumented in this encounter Care Teams Senior Portfolio Manager Relationship Specialty Start Date End Date Yossi Landers MD [address] [facility] 110 [place] [address] PCP - General Internal Medicine 11/03/22 Yossi Landers MD [address] [place] [address] PCP - Humana 11/20/22 Seble Mejia, RN [address] [place] [address] Clinical Advocate Family Medicine 07/29/24 09/09/24 Daniela Alvarado LPN [address] [place] [address] 09/09/24 documented as of this encounter
--- OUTSIDE RECORDS SUMMARY | 2025-01-09 10:48 | XMS_ITS | Encounter Summary ---
Author Organization [facility] Address [address] [place] [address] Care Team Providers Care Administrative Representative Name Role Phone Yossi Landers MD Primary Care Provider [phone] Yossi Landers MD Unavailable [phone] Seble Mejia RN Unavailable Daniela Alvarado LPN Unavailable Encounter Details Date Type Department Care Team (Late st Contact Info) Description 05/28/2024 Clinisync Result Encounter [facility] External Department Unsolicited Bel Dominique MD [address] [facility] [address] [place] [address] Social History Tobacco Use Types Packs/Day Years [...] How often do you attend chur or sabianist services? Never 11/12/2022 Do you belong to any clubs o r organizations such as adventist groups, unions, fraternal or athletic groups, or [...] Recorded Patient Health Questionnaire-2 Score 0 10/12/2023 [facility] [place] of Occupat ional Health - Occupational Stress [...] Priority Date/Time Associated Diagnosis Comments US THYROID 05/28/2024 6:22 AM EST documented in this encounter Results * US thyroid (05/28/2024 6:22 AM EST) Anatomical Region Laterality Modality Head, Neck Ultrasound 05/28/2024 6:22 AM EST Narrative 05/28/2024 6:24 AM EST The [address] [address] Ultrasound Report Signed Patient: JAQUELIN NORWOOD MR#: [id number] : 1940 Acct:[id number] Age/Sex: 84 / F ADM Date: 05/27/24 Loc: US Attending Dr: Bel Dominique M.D. Ordering Physician: Bel Dominique M.D. Date of Service: 05/27/24 Procedure(s): US thyroid Accession Number(s): [id number] cc: YOSSI LANDERS ; Bel Dominique M.D. The [place] [address] Patient Name: JAQUELIN NORWOOD MRN: [id number] date: 1940 Sex: F Assigned Patient Location: US Current Patient Location: Accession/Order Number: [id number] Exam Date: 05/27/2024 13:36 Report Date: 05/28/2024 06:22 At the request of: BEL DOMINIQUE Procedure: US thyroid EXAMINATION: US thyroid HISTORY: Multinodular Goiter COMPARISON: Ultrasound thyroid 06/01/2023 FINDINGS: RIGHT LOBE: Lobectomy. No appreciable residual tissue. LEFT LOBE: Slightly heterogeneous echotexture and contains a left lobe/isthmus stable 14 x 7 x 9 mm TR 4 nodule. Lobe size: 3.2 x 1.2 x 1.1 cm ISTHMUS: Abnormally thickened and slightly heterogeneous. Thickness: 12 mm US/US thyroid IMPRESSION: 1. Right lobectomy. No appreciable residual tissue. 2. Stable 14 mm TR 4 nodule within medial left lobe/left lateral isthmus. Consider follow-up ultrasound evaluation in one year to document stability. TR4 (moderately suspicious): If > 1.0 cm, follow-up ultrasound in 1, 2, 3, and 5 years. If > 1.5 cm, fine needle aspiration (FNA). Electronically authenticated by: WISAM WAGNER Date: 05/28/2024 06:22 Dictated By: Wisam Wagner M.D. Signed By: 05/28/24623 DD/ 1 TD/TT: Complaint Specialist: Procedure Note Radiology, Radiologist, MD - 05/28/2024 [place] [address] Ultrasound Report Signed Patient: JAQUELIN NORWOOD JMR#: [id number] : 1940cct:[id number] Age/Sex: 84 / FADM Date: 05/27/24 Loc: US Attending Dr: Bel Dominique M.D. Ordering Physician: Bel Dominique M.D. Date of Service: 05/27/24 Procedure(s): US thyroid Accession Number(s): [id number] cc: YOSSI LANDERS ; Bel Dominique M.D. [place] [id number] Patient Name: JAQUELIN NORWOOD MRN: [id number] date: 1940 Sex: F Assigned Patient Location: US Current Patient Location: Accession/Order Number: [id number] Exam Date: 05/27/2024 13:36 Report Date: 05/28/2024 06:22 At the request of: BEL DOMINIQUE Procedure: US thyroid EXAMINATION: US thyroid HISTORY: Multinodular Goiter COMPARISON: Ultrasound thyroid 06/01/2023 FINDINGS: RIGHT LOBE: Lobectomy. No appreciable residual tissue. LEFT LOBE: Slightly heterogeneous echotexture and contains a leftlobe/isthmus stable 14 x 7 x 9 mm TR 4 nodule. Lobe size: 3.2 x 1.2 x 1.1 cm ISTHMUS: Abnormally thickened and slightly heterogeneous. Thickness: 12 mm US/US thyroid IMPRESSION: 1. Right lobectomy. No appreciable residual tissue. 2. Stable 14 mm TR 4 nodule within medial left lobe/left lateral isthmus. Consider follow-up ultrasound evaluation in one year to documentstability. TR4 (moderately suspicious): If > 1.0 cm, follow-up ultrasound in 1, 2, 3,and 5 years. If > 1.5 cm, fine needle aspiration (FNA). Electronically authenticated by: WISAM WAGNER Date: 05/28/2024 06:22 Dictated By: Wisam Wagner M.D. Signed By:05/28/24623 DD/ 1 TD/TT: Complaint Specialist: us Bel Dominique MD IMG US PROCEDURES Final Resul t documented in this encounter Visit Diagnoses Not on filedocumented in this encounter Care Teams Administrative Representative Relationship Specialty Start Date End Date Yossi Landers MD [address] [facility] 110 [place] [address] PCP - General Internal Medicine 11/03/22 Yossi Landers MD [address] [facility] 110 [place] [address] PCP - Humana 11/20/22 Seble Mejia, RN [address] [place], [place] [address] Clinical Advocate Family Medicine 07/29/24 09/09/24 Daniela Alvarado LPN [address] [facility] 110 [place] [address] 09/09/24 documented as of this encounter
--- OUTSIDE RECORDS SUMMARY | 2025-01-09 10:48 | XMS_ITS | Encounter Summary ---
Author Organization [facility] Address [address] [place] [address] Care Team Providers Care Coal Grader Name Role Phone Yossi Landers MD Primary Care Provider [phone] Yossi Landers MD Unavailable [phone] Daniela Alvarado LPN Unavailable Encounter Details Date Type Department Care Team (Late st Contact Info) Description 12/29/2024 Telephone [facility] [address] [place] [address] Janey Barry LPN Social History Tobacco Use Types Packs/Day Years [...] often do you attend chur ch or yarsani services? Never 11/12/2022 Do you belong to [...] Recorded Patient Health Questionnaire-2 Score 0 11/07/2024 [facility] - Occupational [...] encounter Miscellaneous Notes * Telephone Encounter - Janey Barry LPN - 12/29/2024 3:18 PM EDT referral to be sent to Dr. Amaris Mejias for fitting of a pessary. Dr. Mejias's office does not accept patients insurance and patient was referred to Dr. Mendez's office for pessary fitting and placement. Nursing called patients [id number] and left a detailed message that referral office needed to be changed due to insurance not being accepted through originalreferral that was going to be made. Nursing filled out packet for Dr. Mendez's office and sent all information needed for referral along with HIPAA for patient. Will send notification to patient and family in regards to referral information to specialist. Janey Cates LPN documented in this encounter Plan of Treatment Not on file documented as of this encounter Visit Diagnoses Not on filedocumented in this encounter Care Teams Coal Grader Relationship Specialty Start Date End Date Yossi Landers MD [address] [facility] 110 [place] [address] PCP - General Internal Medicine 11/03/22 Yossi Landers MD [address] [facility] 110 [place] [address] PCP - [employer] 11/20/22 Daniela Alvarado LPN [address] [facility] 110 [place] [address] 09/09/24 documented as of this encounter
--- OUTSIDE RECORDS SUMMARY | 2025-01-09 10:48 | XMS_ITS | Encounter Summary ---
Author Organization [facility] Address [address] [facility] [address], [address] [place] [address] Care Team Providers Care Support Merchandiser Name Role Phone Unavailable Primary Care Provider Unavailabl e Encounter Details Date Type Department Care Team (Late Contact Info) Description 01/02/2025 Abstract [facility] [address] [place] [address] [place] [id number] Alla Kirby APRN - RATING OFFICER [address] [address] Social History Tobacco Use Types Packs/Day Years [...] Description 01/30/2025 2:00 PM EDT Office Visit [facility] [address] [place] [address] [address] [place], [place] [id number] Alla Kirby, REFERRAL MANAGEMENT LIAISON - RATING OFFICER [address] [facility] [address] [place] [address] Allyssa/Needs Pessary/[employer] *FINISHED YARN EXAMINER Pack back documented as of this encounter Visit Diagnoses Not on filedocumented in this encounter
--- OUTSIDE RECORDS SUMMARY | 2025-01-09 10:48 | XMS_ITS | Encounter Summary ---
Author Organization [facility] Address [address] [place] [address] Care Team Providers Care Assistant Cross Country Coach Name Role Phone Yossi Landers MD Primary Care Provider [phone] Yossi Landers MD Unavailable [phone] Seble Mejia RN Unavailable [phone] Daniela Alvarado LPN Unavailable Encounter Details Date Type Department Care Team (Late st Contact Info) Description 08/05/2023 Abstract [facility] 112 [facility] 110 [place] [address] Yossi Landers MD 112 [facility] 110 [place] [address] Social History Tobacco Use Types [...] often do you attend chur ch or religion services? Never 11/12/2022 Do you belong to any clubs o r organizations such as mu-ism groups, unions, fraternal or athletic groups, or [...] Recorded Patient Health Questionnaire-2 Score 0 02/09/2023 [facility] Occupat ional Health - [...] place to sleep or slept in a assisted (including now)? No 11/12/2022 Comments Unknown Sex and Gender Information Value Date Recorded Sex Assigned at Not on file Legal Sex Female 6:57 PM EDT Gender Identity Not on file Sexual Orientation Not on file documented as of this encounter Plan of Treatment Not on file documented as of this encounter Visit Diagnoses Not on filedocumented in this encounter Care Teams Assistant Cross Country Coach Relationship Specialty Start Date End Date Yossi Landers MD [address] [facility] 110 [place] [address] PCP - General Internal Medicine 11/03/22 Yossi Landers MD [address] [facility] [place] [address] PCP - [employer] 11/20/22 Seble Mejia, RN [address] [place] [address] Clinical Advocate Family Medicine 07/29/24 09/09/24 Daniela Alvarado LPN [address] [facility] [place] [address] 09/09/24 documented as of this encounter
--- OUTSIDE RECORDS SUMMARY | 2025-01-09 10:48 | XMS_ITS | Encounter Summary ---
Author Organization [facility] Address [address] [place] [address] Care Team Providers Care Equipment Monitor Phototypesetting Name Role Phone Yossi Landers MD Primary Care Provider Yossi Landers MD Unavailable [phone] Seble Mejia RN Unavailable Daniela Alvarado LPN Unavailable Encounter Details Date Type Department Care Team (Late st Contact Info) Description 08/12/2023 Abstract [facility] [address] [facility] 110 [place] [address] Yossi Landers MD 112 [facility] 110 [place] [address] Social History Tobacco Use Types [...] often do you attend chur ch or nondenominational services? Never 11/12/2022 Do you belong to [...] Recorded Patient Health Questionnaire-2 Score 0 02/09/2023 [facility] Occupat ional Health - Occupational Stress [...] on filedocumented in this encounter Care Teams Equipment Monitor Phototypesetting Relationship Specialty Start Date End Date Yossi Landers MD [address] [facility] 110 [place] [address] PCP - General Internal Medicine 11/03/22 Yossi Landers MD [address] [facility] [place] [address] PCP - [employer] 11/20/22 Seble Mejia, RN [address] [place] [address] Clinical Advocate Family Medicine 07/29/24 09/09/24 Daniela Alvarado LPN [address] [place] [address] 09/09/24 documented as of this encounter
--- OUTSIDE RECORDS SUMMARY | 2025-01-09 10:48 | XMS_ITS | Encounter Summary ---
Author Organization [facility] Address [address] [place] [address] Care Team Providers Care Ortho Nurse Name Role Phone Yossi Landers MD Primary Care Provider [phone] Yossi Landers MD Unavailable [phone] Seble Mejia RN Unavailable [phone] Daniela Alvarado LPN Unavailable Encounter Details Date Type Department Care Team (Late st Contact Info) Description 01/21/2023 Abstract [facility] 112 [facility] 110 [place] [address] Yossi Landers MD 112 [facility] 110 [place], [place] [address] Social History Tobacco Use Types Packs/Day Years [...] often do you attend chur ch or muslim services? Never 11/12/2022 Do you belong to [...] 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 Not very hard 11/12/2022 [facility] of Occupat ional Health - Occupational Stress [...] on filedocumented in this encounter Care Teams Ortho Nurse Relationship Specialty Start Date End Date Yossi Landers MD [address] [address] PCP - General Internal Medicine 11/03/22 Yossi Landers MD [address] [facility] 110 [place] [address] PCP - [employer] 11/20/22 Seble Mejia, CIPRIANO [address] [place] [address] Clinical Advocate Family Medicine 07/29/24 09/09/24 Daniela Alvarado LPN [address] [address] 09/09/24 documented as of this encounter
--- OUTSIDE RECORDS SUMMARY | 2025-01-09 10:48 | XMS_ITS | Encounter Summary ---
Author Organization [facility] Address [address] [place] [address] Care Team Providers Care Photocopying Equipment Repairer Name Role Phone Yossi Landers MD Primary Care Provider [phone] Yossi Landers MD Unavailable [phone] Seble Mejia RN Unavailable [phone] Daniela Alvarado LPN Unavailable Encounter Details Date Type Department Care Team (Late st Contact Info) Description 02/08/2024 Abstract [facility] 112 [address] [facility] 110 [place] [address] Yossi Landers MD 112 [facility] 110 [place], [place] [id number] Social History Tobacco Use Types Packs/Day Years [...] How often do you attend chur or spiritism services? Never 11/12/2022 Do you belong to any clubs o r organizations such as bahai groups, unions, fraternal or athletic groups, or [...] Recorded Patient Health Questionnaire-2 Score 0 10/12/2023 [facility] of Occupat ional Health - Occupational Stress [...] on filedocumented in this encounter Care Teams Photocopying Equipment Repairer Relationship Specialty Start Date End Date Yossi Landers MD [address] [facility] 110 [place] [address] PCP - General Internal Medicine 11/03/22 Yossi Landers MD [address] [facility] 110 [place] [address] PCP - [employer] 11/20/22 Seble Mejia, RN [address] [place] [address] Clinical Advocate Family Medicine 07/29/24 09/09/24 Daniela Alvarado LPN [address] [address] 09/09/24 documented as of this encounter
--- OUTSIDE RECORDS SUMMARY | 2025-01-09 10:48 | XMS_ITS | Encounter Summary ---
Author Organization [facility] Address [address] [place] [address] Care Team Providers Care Blackener Name Role Phone Yossi Landers MD Primary Care Provider [phone] Yossi Landers MD Unavailable [phone] Seble Mejia RN Unavailable [phone] Daniela Alvarado LPN Unavailable Encounter Details Date Type Department Care Team (Late st Contact Info) Description 08/05/2023 Orders Only [facility] [address] [facility] 110 [place] [address] A, Unknown Practice [address] [place] [address] Social History Tobacco Use Types Packs/Day Years [...] often do you attend chur ch or anglican services? Never 11/12/2022 Do you belong to [...] Recorded Patient Health Questionnaire-2 Score 0 02/09/2023 [facility] of Occupat ional Health - [...] place to sleep or slept in a mcc (including now)? No 11/12/2022 Comments Unknown Sex and Gender Information Value Date Recorded Sex Assigned at Not on file Legal Sex Female 6:57 PM EDT Gender Identity Not on file Sexual Orientation Not on file documented as of this encounter Plan of Treatment Not on file documented as of this encounter Procedures Procedure Name Priority Date/Time Associated Diagnosis Comments CT ABDOMEN & PELVIS W Routine 08/03/2023 2:32 PM EST SCANNED LABS Routine 08/02/2023 2:33 PM EST documented in this encounter Results * CT ABDOMEN & PELVIS W (08/03/2023 2:32 PM EST) Anatomical Region Laterality Modality Radiographic Joanna ging us Unknown Practice A IMG XR PROCEDURES Final Resul t * SCANNED LABS (08/02/2023 2:33 PM EST) us Unknown Practice A LAB CHG PERFORMABLES Final Re sult documented in this encounter Visit Diagnoses Not on filedocumented in this encounter Care Teams Blackener Relationship Specialty Start Date End Date Yossi Landers MD [address] [facility] 110 [place] [address] PCP - General Internal Medicine 11/03/22 Yossi Landers MD [address] [facility] 110 [place] [address] PCP - [employer] 11/20/22 Seble Mejia, RN [address] [place] [address] Clinical Advocate Family Medicine 07/29/24 09/09/24 Daniela Alvarado LPN 112 [facility] 110 [place] [address] 09/09/24 documented as of this encounter
--- OUTSIDE RECORDS SUMMARY | 2025-01-09 10:48 | XMS_ITS | Encounter Summary ---
Author Organization [facility] Address [address] [place] [address] Care Team Providers Care Housing Development Specialist Name Role Phone Yossi Landers MD Primary Care Provider [phone] Yossi Landers MD Unavailable [phone] Daniela Alvarado LPN Unavailable Encounter Details Date Type Department Care Team (Late st Contact Info) Description 01/09/2025 Bamboo flowsheet [facility] [address] [facility] 110 [place] [address] Yossi Landers MD [address] [facility] 110 [place], [place] [address] Social History Tobacco Use Types Packs/Day Years [...] How often do you attend chur or restorationist services? Never 11/12/2022 Do you belong to [...] Patient Health Questionnaire-2 Score 2 01/09/2025 [facility] Occupational Stress Questionnaire Answer [...] on filedocumented in this encounter Care Teams Housing Development Specialist Relationship Specialty Start Date End Date Yossi Landers MD [address] [facility] 110 [place] [address] PCP - General Internal Medicine 11/03/22 Yossi Landers MD [address] [facility] 110 [place] [address] PCP - [employer] 11/20/22 Daniela Alvarado LPN [address] [facility] [place] [address] 09/09/24 documented as of this encounter
--- OUTSIDE RECORDS SUMMARY | 2025-01-09 10:48 | XMS_ITS | Encounter Summary ---
Author Organization [facility] Address [address] [place] [address] Care Team Providers Care Logistics Team Lead Name Role Phone Yossi Landers MD Primary Care Provider [phone] Yossi Landers MD Unavailable [phone] Seble Mejia RN Unavailable [phone] Daniela Alvarado LPN Unavailable Encounter Details Date Type Department Care Team (Late st Contact Info) Description 06/09/2023 Abstract [facility] 112 [facility] 110 [place] [address] Yossi Landers MD 112 [facility] 110 [place] [address] Social History Tobacco Use [...] often do you attend chur ch or buddhist services? Never 11/12/2022 Do you belong to [...] on filedocumented in this encounter Care Teams Logistics Team Lead Relationship Specialty Start Date End Date Yossi Landers MD [address] [facility] 110 [place] [address] PCP - General Internal Medicine 11/03/22 Yossi Landers MD [address] [facility] 110 [place] [address] PCP - [employer] 11/20/22 Seble Mejia RN [address] [place] [address] Clinical Advocate Family Medicine 07/29/24 09/09/24 Daniela Alvarado LPN [address] [facility] 110 [place] [address] 09/09/24 documented as of this encounter
--- OUTSIDE RECORDS SUMMARY | 2025-01-09 10:49 | XMS_ITS | Encounter Summary ---
Author Organization [facility] Address [address] [place] [address] Care Team Providers Care Mechanic Recovery Name Role Phone Yossi Landers MD Primary Care Provider [phone] Yossi Landers MD Unavailable Seble Mejia RN Unavailable [phone] Daniela Alvarado LPN Unavailable Encounter Details Date Type Department Care Team (Late st Contact Info) Description 11/03/2023 Orders Only [facility] [address] [facility] 110 [place] [address] Unallocated, Noms Provider, [address] [place], [place] [address] Social History Tobacco Use Types Packs/Day Years [...] Recorded Patient Health Questionnaire-2 Score 0 10/12/2023 [facility] of Occupat ional Health - Occupational Stress [...] Procedure Name Priority Date/Time Associated Diagnosis Comments XR ABDOMEN 1 VIEW Routine 11/03/2023 7:59 AM EDT documented in this encounter Results * XR abdomen 1 view (11/03/2023 7:59 AM EDT) Anatomical Region Laterality Modality Abdomen Radiographic Joanna ging us Noms Provider Unallocated MD [place] XR PROCEDURES F inal Result documented in this encounter Visit Diagnoses Not on filedocumented in this encounter Care Teams Mechanic Recovery Relationship Specialty Start Date End Date Yossi Landers MD [address] [facility] 110 [place] [address] PCP - General Internal Medicine 11/03/22 Yossi Landers MD [address] [facility] 110 [place] [address] PCP - [employer] 11/20/22 Seble Mejia, CIPRIANO [address] [place] [address] Clinical Advocate Family Medicine 07/29/24 09/09/24 Daniela Alvarado LPN 112 [facility] 110 [place] [address] 09/09/24 documented as of this encounter
--- OUTSIDE RECORDS SUMMARY | 2025-01-09 10:49 | XMS_ITS | Encounter Summary ---
Author Organization [facility] Address [address] [place] [address] Care Team Providers Care Erector Operator Name Role Phone Yossi Landers MD Primary Care Provider Yossi Landers MD Unavailable [phone] Seble Mejia RN Unavailable [phone] Daniela Alvarado LPN Unavailable Encounter Details Date Type Department Care Team (Late st Contact Info) Description 12/30/2023 Orders Only [facility] [address] [facility] 110 [place] [address] Unallocated, Noms Provider, [address] [place], [place] [address] Social History Tobacco Use Types Packs/Day Years [...] any clubs o r organizations such as evangelical groups, unions, fraternal or athletic groups, or [...] Recorded Patient Health Questionnaire-2 Score 0 10/12/2023 [facility] Occupat ional Health - [...] place to sleep or slept in a halfway (including now)? No 11/12/2022 Comments Unknown Sex and Gender Information Value Date Recorded Sex Assigned at Not on file Legal Sex Female 6:57 PM EDT Gender Identity Not on file Sexual Orientation Not on file documented as of this encounter Plan of Treatment Not on file documented as of this encounter Procedures Procedure Name Priority Date/Time Associated Diagnosis Comments ELECTROCARDIOGRAM REPORT Routine 024 9:09 AM EDT SCANNED LABS Routine 12/29/2023 9:13 AM EDT XR CHEST 2 VIEWS Routine 12/28/2023 9:09 AM EDT documented in this encounter Results * Electrocardiogram Report (12/30/2023 9:09 AM EDT) us Noms Provider Unallocated MD IN CLINIC/BEDSIDE O RDERABLES Final Result * SCANNED LABS (12/29/2023 9:13 AM EDT) us Noms Provider Unallocated MD LAB CHG PERFORMABLE S Final Result * XR chest 2 views (12/28/2023 9:09 AM EDT) Anatomical Region Laterality Modality Chest Radiographic Joanna ging us Noms Provider Unallocated IMG XR PROCEDURES F inal Result documented in this encounter Visit Diagnoses Not on filedocumented in this encounter Care Teams Erector Operator Relationship Specialty Start Date End Date Yossi Landers MD [address] [facility] 110 [place] [address] PCP - General Internal Medicine 11/03/22 Yossi Landers MD [address] [facility] 110 [place] [address] PCP - Hum[employer] 11/20/22 Seble Mejia, CIPRIANO [address] [place] [address] Clinical Advocate Family Medicine 07/29/24 09/09/24 Daniela Alvarado LPN [address] [place] [address] 09/09/24 documented as of this encounter
--- OUTSIDE RECORDS SUMMARY | 2025-01-09 10:49 | XMS_ITS | Encounter Summary ---
Author Organization [facility] Address [address] [place] [address] Care Team Providers Care Site Medical Director Name Role Phone Yossi Landers MD Primary Care Provider Yossi Landers MD Unavailable [phone] Seble Mejia RN Unavailable Daniela Alvarado LPN Unavailable Encounter Details Date Type Department Care Team (Late st Contact Info) Description 12/02/2023 Abstract [facility] [address] [facility] 110 [place] [address] Yossi Landers MD 112 [facility] 110 [place] [address] Social History Tobacco Use Types [...] often do you attend chur ch or anabaptist services? Never 11/12/2022 Do you [...] Recorded Patient Health Questionnaire-2 Score 0 10/12/2023 [facility] of Occupat ional Health [...] on filedocumented in this encounter Care Teams Site Medical Director Relationship Specialty Start Date End Date Yossi Landers MD [address] [facility] 110 [place] [address] PCP - General Internal Medicine 11/03/22 Yossi Landers MD [address] [facility] [address] [place] [address] PCP - Hum[employer] 11/20/22 Seble Mejia, RN [address] [place] [address] Clinical Advocate Family Medicine 07/29/24 09/09/24 Daniela Alvarado LPN [address] [facility] [place] [address] 09/09/24 documented as of this encounter
--- OUTSIDE RECORDS SUMMARY | 2025-01-09 10:49 | XMS_ITS | Encounter Summary ---
Author Organization [facility] Address [address] [place] [address] Care Team Providers Care Animal Biologist Name Role Phone Yossi Landers MD Primary Care Provider Yossi Landers MD Unavailable [phone] Seble Mejia RN Unavailable Daniela Alvarado LPN Unavailable Encounter Details Date Type Department Care Team (Late st Contact Info) Description 11/03/2023 Abstract [facility] 112 [facility] 110 [place] [address] Yossi Landers MD 112 [facility] 110 [place] [address] Social History Tobacco Use Types [...] often do you attend chur ch or orthodox services? Never 11/12/2022 Do you belong to any clubs o r organizations such as yarsani groups, unions, fraternal or athletic groups, or [...] Recorded Patient Health Questionnaire-2 Score 0 10/12/2023 [facility] of Occupat ional Health [...] on filedocumented in this encounter Care Teams Animal Biologist Relationship Specialty Start Date End Date Yossi Landers MD [address] [facility] 110 [place] [address] PCP - General Internal Medicine 11/03/22 Yossi Landers MD [address] [facility] [address] [place] [address] PCP - [employer] 11/20/22 Seble Mejia, RN [address] [place] [address] Clinical Advocate Family Medicine 07/29/24 09/09/24 Daniela Alvarado LPN [address] [facility] [place] [address] 09/09/24 documented as of this encounter
--- OUTSIDE RECORDS SUMMARY | 2025-01-09 10:49 | XMS_ITS | Encounter Summary ---
Author Organization [facility] Address [address] [place] [address] Phone Care Team Providers Care Insurance Underwriter Name Role Phone Unavailable Primary Care Provider Unavailabl e Encounter Details Date Type Department Care Team (Late st Contact Info) Description 04/18/2021 Orders Only [facility] [address] [place] [address] Conversion, Onbase Social History Tobacco Use Types Packs/Day Years Used Date Smoking Tobacco: Never Assessed Comments Unknown Sex and Gender Information Value Date Recorded Sex Assigned at Not on file Legal Sex Female 1:28 PM EST Gender Identity Not on file Sexual Orientation Not on file documented as of this encounter Plan of Treatment Scheduled Orders Name Type Priority Associated Diagnoses Orde r Schedule OUTSIDE LAB SCAN Lab Ordered: 04/18/2021 OUTSIDE LAB SCAN Lab Ordered: 04/18/2021 documented as of this encounter Visit Diagnoses Not on filedocumented in this encounter
--- OUTSIDE RECORDS SUMMARY | 2025-01-09 10:49 | XMS_ITS | Encounter Summary ---
Author Organization [facility] Address [address] [place] [address] Care Team Providers Care Line Mover Name Role Phone Yossi Landers MD Primary Care Provider Yossi Landers MD Unavailable [phone] Seble Mejia RN Unavailable [phone] Daniela Alvarado LPN Unavailable Encounter Details Date Type Department Care Team (Late st Contact Info) Description 12/02/2022 Abstract [facility] [address] [facility] [facility] 110 [place] [address] Yossi Landers MD 112 [facility] 110 [place] [address] Social History Tobacco Use Types [...] often do you attend chur ch or jain services? Never 11/12/2022 Do you belong to any clubs o r organizations such as moravian groups, unions, fraternal or athletic groups, or [...] 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 Not very hard 11/12/2022 [facility] of Occupat ional Health - [...] place to sleep or slept in a group home (including now)? No 11/12/2022 Comments Unknown [...] on filedocumented in this encounter Care Teams Line Mover Relationship Specialty Start Date End Date Yossi Landers MD [address] [facility] 110 [place] [address] PCP - General Internal Medicine 11/03/22 Yossi Landers MD [address] [facility] 110 [place] [address] PCP - [employer] 11/20/22 Seble Mejia, CIPRIANO [address] [place] [address] Clinical [facility] Family [facility] 07/29/24 09/09/24 Daniela Alvarado LPN [address] [facility] 110 [place] [address] 09/09/24 documented as of this encounter
--- OUTSIDE RECORDS SUMMARY | 2025-01-09 10:49 | XMS_ITS | Encounter Summary ---
Author Organization [facility] Address [address] [facility] [place] [address] Care Team Providers Care C.O.D. Biller Name Role Phone Yossi Landers MD Primary Care Provider [phone] Yossi Landers MD Unavailable [phone] Seble Mejia RN Unavailable [phone] Daniela Alvarado LPN Unavailable Encounter Details Date Type Department Care Team (Late st Contact Info) Description 11/27/2022 Abstract [facility] [address] [facility] 110 [place] [address] Yossi Landers MD 112 [facility] 110 [place] [address] Social History Tobacco Use Types [...] often do you attend chur ch or confucianism services? Never 11/12/2022 Do you belong to [...] 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 Not very hard 11/12/2022 [facility] of Occupat ional Health - Occupational Stress [...] on filedocumented in this encounter Care Teams C.O.D. Biller Relationship Specialty Start Date End Date Yossi Landers MD [address] [facility] 110 [place] [address] PCP - General Internal Medicine 11/03/22 Yossi Landers MD [address] [facility] 110 [place] [address] PCP - [employer] 11/20/22 Seble Mejia, CIPRIANO [address] [place] [address] Clinical Advocate Family Medicine 07/29/24 09/09/24 Daniela Alvarado LPN [address] [facility] 110 [place] [address] 09/09/24 documented as of this encounter
--- OUTSIDE RECORDS SUMMARY | 2025-01-09 10:49 | XMS_ITS | Encounter Summary ---
Author Organization [facility] Address [address] [address] Phone Care Team Providers Care Aerobics Instructor Name Role Phone Unavailable Primary Care Provider Unavailabl e Encounter Details Date Type Department Care Team (Late st Contact Info) Description 04/04/2020 Orders Only [facility] [address] [place] [address] Conversion, Onbase Social History Tobacco Use Types [...] r Schedule OUTSIDE LAB SCAN Lab Ordered: 04/04/2020 documented as of this encounter Visit Diagnoses Not on filedocumented in this encounter
--- OUTSIDE RECORDS SUMMARY | 2025-01-09 10:49 | XMS_ITS | Encounter Summary ---
Author Organization [facility] Address [address] [facility] [address] Care Team Providers Care Heel Attacher Name Role Phone Yossi Landers MD Primary Care Provider [phone] Yossi Landers MD Unavailable [phone] Seble Mejia RN Unavailable Daniela Alvarado LPN Unavailable Encounter Details Date Type Department Care Team (Late st Contact Info) Description 12/02/2022 Abstract [facility] [address] [facility] 110 [place] [address] Yossi Landers MD 112 [facility] 110 [place] [address] Social History Tobacco Use Types [...] 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 Not very hard 11/12/2022 [facility] of Occupat ional Health - Occupational [...] on filedocumented in this encounter Care Teams Heel Attacher Relationship Specialty Start Date End Date Yossi Landers MD [address] [facility] 110 [place] [address] PCP - General Internal Medicine 11/03/22 Yossi Landers MD [address] [facility] 110 [place] [address] PCP - [employer] 11/20/22 Seble Mejia, CIPRIANO [address] [place] [address] Clinical Advocate Family Medicine 07/29/24 09/09/24 Daniela Alvarado LPN [address] [facility] 110 [place] [address] 09/09/24 documented as of this encounter
--- OUTSIDE RECORDS SUMMARY | 2025-01-09 10:49 | XMS_ITS | Encounter Summary ---
Author Organization [facility] Address [address] [place] [address] Care Team Providers Care Fresh Work Wrapper Layer Name Role Phone Yossi Landers MD Primary Care Provider [phone] Yossi Landers MD Unavailable [phone] Seble Mejia RN Unavailable [phone] Daniela Alvarado LPN Unavailable Encounter Details Date Type Department Care Team (Late st Contact Info) Description 11/20/2023 Clinisync Result Encounter N[facility] External Department Unsolicited Yossi Landers MD [address] [facility] 110 [place] [address] Social History Tobacco Use Types Packs/Day Years [...] Recorded Patient Health Questionnaire-2 Score 0 10/12/2023 [facility] of Occupat ional Health - [...] Name Priority Date/Time Associated Diagnosis Comments XR RIBS LEFT INCLUDE CHEST (MIN 3 VIEWS) 11/20/2023 6:43 AM EDT documented in this encounter Results * XR RIBS LEFT INCLUDE CHEST (MIN 3 VIEWS) (11/20/2023 6:43 AM EDT) Anatomical Region Laterality Modality Radiographic Joanna ging 11/20/2023 6:43 AM EDT Narrative 11/20/2023 6:46 AM EDT [address] [address] XRay Report Signed Patient: JAUQELIN NORWOOD MR#: [id number] : 1940 Acct:[id number] Age/Sex: 83 / F ADM Date: 11/19/23 Loc: RAD Attending Dr: YOSSI LANDERS Ordering Physician: YOSSI LANDERS Date of Service: 11/19/23 Procedure(s): XR ribs LT min 3V w CXR1V Accession Number(s): [id number] cc: YOSSI LANDERS [address] [address] Patient Name: JAQUELIN NORWOOD MRN: [id number] date: 1940 Sex: F Assigned Patient Location: [facility] Current Patient Location: Accession/Order Number: [id number] Exam Date: 11/19/2023 13:28 Report Date: 11/20/2023 06:43 At the request of: YOSSI LANDERS Procedure: XR ribs LT min 3V w CXR1V EXAMINATION: XR ribs LT min 3V w CXR1V HISTORY: Rib Pain Left Side R07.8 ; left lateral rib pain; no known injury COMPARISON: No relevant comparison available. FINDINGS: LUNGS: No significant pulmonary parenchymal abnormalities. PLEURA: No pneumothorax, effusion, or pleural thickening. MEDIASTINUM: No visible mass or adenopathy. CARDIAC: No cardiomegaly or cardiac silhouette abnormality. RIBS: Normal. No significant arthropathy or acute abnormality. OTHER: Negative. XR/XR ribs LT min 3V w CXR1V IMPRESSION: 1. No suspicious cardiopulmonary process. 2. No appreciable rib abnormality. Electronically authenticated by: WISAM WAGNER Date: 11/20/2023 06:43 Dictated By: Wisam Wagner M.D. Signed By: 11/20/2346 DD/ 2 TD/TT: Linen Aide: Procedure Note Radiology, Radiologist, MD - 11/20/2023 [place] [address] XRay Report Signed Patient: JAQUELIN NORWOOD JMR#: [id number] : 1940cct:[id number] Age/Sex: 83 / FADM Date: 11/19/23 Loc: RAD Attending Dr: YOSSI LANDERS Ordering Physician: YOSSI LANDERS Date of Service: 11/19/23 Procedure(s): XR ribs LT min 3V w CXR1V Accession Number(s): [id number] cc: YOSSI LANDERS [address] [place] [address] Patient Name: JAQUELIN NORWOOD MRN: [id number] date: 1940 Sex: F Assigned Patient Location: [facility] Current Patient Location: Accession/Order Number: [id number] Exam Date: 11/19/2023 13:28 Report Date: 11/20/2023 06:43 At the request of: YOSSI LANDERS Procedure: XR ribs LT min 3V w CXR1V EXAMINATION: XR ribs LT min 3V w CXR1V HISTORY: Rib Pain Left Side R07.8 ; left lateral rib pain; no known injury COMPARISON: No relevant comparison available. FINDINGS: LUNGS: No significant pulmonary parenchymal abnormalities. PLEURA: No pneumothorax, effusion, or pleural thickening. MEDIASTINUM: No visible mass or adenopathy. CARDIAC: No cardiomegaly or cardiac silhouette abnormality. RIBS: Normal. No significant arthropathy or acute abnormality. OTHER: Negative. XR/XR ribs LT min 3V w CXR1V IMPRESSION: 1. No suspicious cardiopulmonary process. 2. No appreciable rib abnormality. Electronically authenticated by: WISAM WAGNER Date: 11/20/2023 06:43 Dictated By: Wisam Wagner M.D. Signed By:11/20/2346 DD/ TD/TT: Linen Aide: Yossi Landers MD IMG XR PROCEDURES Final Result documented in this encounter Visit Diagnoses Not on filedocumented in this encounter Care Teams Fresh Work Wrapper Layer Relationship Specialty Start Date End Date Yossi Landers MD [address] [address] PCP - General Internal Medicine 11/03/22 Yossi Landers MD [address] [facility] 110 [place] [address] PCP - [employer] 11/20/22 Seble Mejia, CIPRIANO [address] [place] [address] Clinical Advocate Family Medicine 07/29/24 09/09/24 Daniela Alvarado LPN [address] [address] 09/09/24 documented as of this encounter
--- OUTSIDE RECORDS SUMMARY | 2025-01-09 10:49 | XMS_ITS | Encounter Summary ---
Author Organization [facility] Address [address] [place] [address] Care Team Providers Care Parachute Taper Name Role Phone Yossi Landers MD Primary Care Provider Yossi Landers MD Unavailable [phone] Seble Mejia RN Unavailable [phone] Daniela Alvarado LPN Unavailable Encounter Details Date Type Department Care Team (Late st Contact Info) Description 11/13/2022 Abstract [facility] 112 [facility] 110 [place] [address] Yossi Landers MD 112 [facility] 110 [place] [address] Social History Tobacco Use Types Packs/Day Years Used Date Smoking Tobacco: Never Assessed Humiliation, Afraid, Rape, and Kick questionnair e [...] any clubs o r organizations such as restoration groups, unions, fraternal or athletic groups, or [...] 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 Not very hard 11/12/2022 [facility] of Occupat ional Health - Occupational [...] on filedocumented in this encounter Care Teams Parachute Taper Relationship Specialty Start Date End Date Yossi Landers MD [address] [facility] 110 [place] [address] PCP - General Internal Medicine 11/03/22 Yossi Landers MD [address] [facility] 110 [place] [address] PCP - [employer] 11/20/22 Seble Mejia, CIPRIANO [address] [place] [address] Clinical Advocate Family Medicine 07/29/24 09/09/24 Daniela Alvarado LPN [address] [facility] 110 [place] [address] 09/09/24 documented as of this encounter
--- OUTSIDE RECORDS SUMMARY | 2025-01-09 10:49 | XMS_ITS | Encounter Summary ---
Author Organization [facility] Address [address] [facility] [place] [address] Care Team Providers Care Chipper Operator Name Role Phone Yossi Landers MD Primary Care Provider Yossi Landers MD Unavailable [phone] Seble Mejia RN Unavailable [phone] Daniela Alvarado LPN Unavailable Encounter Details Date Type Department Care Team (Late st Contact Info) Description 12/02/2022 Abstract [facility] [address] [facility] 110 [place] [address] Yossi Landers MD 112 [facility] 110 [place] [address] Social History Tobacco Use Types [...] often do you attend chur ch or pentecostal services? Never 11/12/2022 Do you belong to any clubs o r organizations such as gnosticist groups, unions, fraternal or athletic groups, or [...] 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 Not very hard 11/12/2022 [facility] of Occupat ional Health - Occupational [...] on filedocumented in this encounter Care Teams Chipper Operator Relationship Specialty Start Date End Date Yossi Landers MD [address] [facility] 110 [place] [address] PCP - General Internal Medicine 11/03/22 Yossi Landers MD [address] [facility] 110 [place] [address] PCP - [employer] 11/20/22 Seble Mejia, CIPRIANO [address] [place] [address] Clinical Advocate Family Medicine 07/29/24 09/09/24 Daniela Alvarado LPN [address] [facility] 110 [place] [address] 09/09/24 documented as of this encounter
--- OUTSIDE RECORDS SUMMARY | 2025-01-09 10:49 | XMS_ITS | Encounter Summary ---
Author Organization [facility] Address [address] [place] [address] Care Team Providers Care Sleep Technician Name Role Phone Yossi Landers MD Primary Care Provider [phone] Yossi Landers MD Unavailable [phone] Daniela Alvarado LPN Unavailable Encounter Details Date Type Department Care Team (Late st Contact Info) Description 09/22/2024 Abstract [facility] 112 [facility] 110 [place] [id number] Yossi Landers MD 112 [facility] 110 [place] [address] Social History Tobacco Use Types [...] any clubs o r organizations such as jew groups, unions, fraternal or athletic groups, or [...] Date Recorded Patient Health Questionnaire-2 Score 2 09/15/2024 [facility] of Occupat ional Health - Occupational Stress [...] on filedocumented in this encounter Care Teams Sleep Technician Relationship Specialty Start Date End Date Yossi Landers MD [address] [facility] 110 [place] [address] PCP - General Internal Medicine 11/03/22 Yossi Landers MD [address] [facility] 110 [place] [address] PCP - [employer] 11/20/22 Daniela Alvarado LPN [address] [facility] 110 [place] [address] 09/09/24 documented as of this encounter
--- OUTSIDE RECORDS SUMMARY | 2025-01-09 10:49 | XMS_ITS | Encounter Summary ---
Author Organization [facility] Address [address] [place] [address] Care Team Providers Care Pulpit Operator Name Role Phone Yossi Landers MD Primary Care Provider [phone] Yossi Landers MD Unavailable [phone] Daniela Alvarado LPN Unavailable Encounter Details Date Type Department Care Team (Late st Contact Info) Description 10/10/2024 Abstract [facility] 112 [facility] 110 [place] [address] Yossi Landers MD 112 [facility] 110 [place] [address] Social History Tobacco Use Types [...] any clubs o r organizations such as judaism groups, unions, fraternal or athletic groups, or [...] Date Recorded Patient Health Questionnaire-2 Score 0 10/07/2024 [facility] of Occupat ional Health - Occupational Stress [...] on filedocumented in this encounter Care Teams Pulpit Operator Relationship Specialty Start Date End Date Yossi Landers MD [address] [facility] 110 [place] [address] PCP - General Internal Medicine 11/03/22 Yossi Landers MD [address] [facility] 110 [place] [address] PCP - [employer] 11/20/22 Daniela Alvarado LPN [address] [facility] 110 [place] [address] 09/09/24 documented as of this encounter
--- OUTSIDE RECORDS SUMMARY | 2025-01-09 10:49 | XMS_ITS | Encounter Summary ---
Author Organization [facility] Address [address] [place] [address] Care Team Providers Care Materials Director Name Role Phone Yossi Landers MD Primary Care Provider Yossi Landers MD Unavailable [phone] Seble Mejia RN Unavailable Daniela Alvarado LPN Unavailable Encounter Details Date Type Department Care Team (Late st Contact Info) Description 12/02/2023 Abstract [facility] [address] [facility] 110 [place] [address] Yossi Landers MD 112 [facility] 110 [place] [address] Social History Tobacco Use Types [...] any clubs o r organizations such as alevism groups, unions, fraternal or athletic groups, or [...] Recorded Patient Health Questionnaire-2 Score 0 10/12/2023 [facility] of Occupat ional Health - [...] on filedocumented in this encounter Care Teams Materials Director Relationship Specialty Start Date End Date Yossi Landers MD [address] [facility] 110 [place] [address] PCP - General Internal Medicine 11/03/22 Yossi Landers MD [address] [facility] [address] [place] [address] PCP - [employer] 11/20/22 Seble Mejia, RN [address] [place] [address] Clinical Advocate Family Medicine 07/29/24 09/09/24 Daniela Alvarado LPN [address] [facility] [address] [place] [address] 09/09/24 documented as of this encounter
--- OUTSIDE RECORDS SUMMARY | 2025-01-09 10:49 | XMS_ITS | Encounter Summary ---
Author Organization [facility] Address [address] [place] [address] Care Team Providers Care Manager Commodities Name Role Phone Yossi Landers MD Primary Care Provider Yossi Landers MD Unavailable [phone] Seble Mejia RN Unavailable Daniela Alvarado LPN Unavailable Encounter Details Date Type Department Care Team (Late st Contact Info) Description 11/03/2023 Abstract [facility] 112 [facility] 110 [place] [address] Yossi Landers MD 112 [facility] 110 [place] [address] Social History Tobacco Use Types [...] often do you attend chur ch or judaism services? Never 11/12/2022 Do you belong to any clubs o r organizations such as sikh groups, unions, fraternal or athletic groups, or [...] Recorded Patient Health Questionnaire-2 Score 0 10/12/2023 [facility] of Occupat ional Health - Occupational [...] on filedocumented in this encounter Care Teams Manager Commodities Relationship Specialty Start Date End Date Yossi Landers MD [address] [email or web address] 110 [place] [address] PCP - General Internal Medicine 11/03/22 Yossi Landers MD [address] [facility] [address] [place] [address] PCP - [employer] 11/20/22 Seble Mejia, RN [address] [place] [address] Clinical Advocate Family Medicine 07/29/24 09/09/24 Daniela Alvarado LPN [address] [facility] [address] [place] [address] 09/09/24 documented as of this encounter
--- OUTSIDE RECORDS SUMMARY | 2025-01-09 10:49 | XMS_ITS | Encounter Summary ---
Author Organization [facility] Address [address] [place] [address] Phone Care Team Providers Care Chemical Preparer Name Role Phone Unavailable Primary Care Provider Unavailabl e Encounter Details Date Type Department Care Team (Late st Contact Info) Description 02/10/2020 Orders Only [facility] [address] [place] [place] [address] Conversion, Onbase Social History Tobacco Use Types [...] r Schedule OUTSIDE LAB SCAN Lab Ordered: 02/10/2020 documented as of this encounter Visit Diagnoses Not on filedocumented in this encounter
--- OUTSIDE RECORDS SUMMARY | 2025-01-09 10:49 | XMS_ITS | Encounter Summary ---
Author Organization [facility] Address [address] [place] [address] Care Team Providers Care Retail Account Specialist Name Role Phone Yossi Landers MD Primary Care Provider [phone] Yossi Landers MD Unavailable [phone] Seble Mejia RN Unavailable Daniela Alvarado LPN Unavailable Encounter Details Date Type Department Care Team (Late st Contact Info) Description 12/29/2023 Orders Only [facility] [address] [facility] 110 [place] [address] Unallocated, Noms Provider, [address] [place], [place] [address] Social History Tobacco Use Types Packs/Day Years [...] any clubs o r organizations such as orthodox groups, unions, fraternal or athletic groups, [...] Recorded Patient Health Questionnaire-2 Score 0 10/12/2023 [facility] of Occupat ional Health - Occupational Stress [...] place to sleep or slept in a jail (including now)? No 11/12/2022 Comments Unknown Sex and Gender Information Value Date Recorded Sex Assigned at Not on file Legal Sex Female 6:57 PM EDT Gender Identity Not on file Sexual Orientation Not on file documented as of this encounter Plan of Treatment Not on file documented as of this encounter Procedures Procedure Name Priority Date/Time Associated Diagnosis Comments ELECTROCARDIOGRAM REPORT Routine 024 9:42 AM EDT documented in this encounter Results * Electrocardiogram Report (12/28/2023 9:42 AM EDT) us Noms Provider Unallocated MD IN CLINIC/BEDSIDE O RDERABLES Final Result documented in this encounter Visit Diagnoses Not on filedocumented in this encounter Care Teams Retail Account Specialist Relationship Specialty Start Date End Date Yossi Landers MD [address] [facility] 110 [place] [address] PCP - General Internal Medicine 11/03/22 Yossi Landers MD [address] [facility] [address] [place] [address] PCP - [employer] 11/20/22 Sebel Mejia, CIPRIANO [address] [place] [address] Clinical Advocate Family Medicine 07/29/24 09/09/24 Daniela Alvarado LPN 112 [facility] 110 [place] [address] 09/09/24 documented as of this encounter
--- OUTSIDE RECORDS SUMMARY | 2025-01-09 10:49 | XMS_ITS | Encounter Summary ---
Author Organization [facility] Address [address] [place] [address] Care Team Providers Care Roofing Technician Name Role Phone Yossi Landers MD Primary Care Provider Yossi Landers MD Unavailable [phone] Seble Mejia RN Unavailable Daniela Alvarado LPN Unavailable Encounter Details Date Type Department Care Team (Late st Contact Info) Description 11/30/2023 Abstract [facility] 112 [facility] 110 [place] [address] Yossi Landers MD [address] [facility] 110 [place] [address] Social History Tobacco Use Types [...] often do you attend chur ch or mandaen services? Never 11/12/2022 Do you [...] Recorded Patient Health Questionnaire-2 Score 0 10/12/2023 [facility] of Occupat ional Health - Occupational Stress [...] on filedocumented in this encounter Care Teams Roofing Technician Relationship Specialty Start Date End Date Yossi Landers MD [address] [facility] 110 [place] [address] PCP - General Internal Medicine 11/03/22 Yossi Landers MD [address] [facility] [address] [place] [address] PCP - [employer] 11/20/22 Seble Mejia, RN [address] [place] [address] Clinical Advocate Family Medicine 07/29/24 09/09/24 Daniela Alvarado LPN [address] [facility] [address] [place] [address] 09/09/24 documented as of this encounter
--- OUTSIDE RECORDS SUMMARY | 2025-01-09 10:49 | XMS_ITS ---
Author Organization [facility] Address [address] [place] [address] Care Team Providers Care Banquet Cook Name Role Phone Yossi Landers MD Primary Care Provider [phone] Yossi Landers MD Unavailable [phone] Daniela Alvarado LPN Unavailable Chronic Care Management (CCM) Status:Enrolled (Active) Start date:11/06/2022 Enrollment date:11/06/2022 Overview 08/07/23, 2:30 PM - Larathursday, DORINDA- Patient gives verbal consent to be enrolled in CCM Program and understands there could be a bill for this service. Case Team Name Relationship Phone Daniela Alvarado LPN(Responsible Staff) [phone] Continued Care and Services Coordination
--- OUTSIDE RECORDS SUMMARY | 2025-01-09 10:49 | XMS_ITS | Encounter Summary ---
Author Organization [facility] Address [address] [facility] [place] [address] Care Team Providers Care Clinical Documentation Consultant Name Role Phone Yossi Landres MD Primary Care Provider Yossi Landers MD Unavailable [phone] Seble Mejia RN Unavailable Daniela Alvarado LPN Unavailable Encounter Details Date Type Department Care Team (Late st Contact Info) Description 11/27/2022 [facility] [address] [facility] 110 [place] [address] Yosis Landers MD 112 [facility] 110 [place] [address] Social History Tobacco Use Types [...] often do you attend chur ch or advent services? Never 11/12/2022 Do you belong to [...] 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 Not very hard 11/12/2022 [facility] of Occupat ional Health - Occupational [...] on filedocumented in this encounter Care Teams Clinical Documentation Consultant Relationship Specialty Start Date End Date Yossi Landers MD [address] [facility] 110 [place] [address] PCP - General Internal Medicine 11/03/22 Yossi Landers MD [address] [facility] 110 [place] [address] PCP - [employer] 11/20/22 Seble Mejia, CIPRIANO [address] [place] [address] [facility] 07/29/24 09/09/24 Daniela Alvarado LPN [address] [facility] 110 [place] [address] 09/09/24 documented as of this encounter
--- OUTSIDE RECORDS SUMMARY | 2025-01-09 10:49 | XMS_ITS | Encounter Summary ---
Author Organization [facility] Address [address] [place] [address] Care Team Providers Care De Alcholizer Name Role Phone Yossi Landers MD Primary Care Provider Yossi Landers MD Unavailable [phone] Daniela Alvarado LPN Unavailable Encounter Details Date Type Department Care Team (Late st Contact Info) Description 10/10/2024 Abstract [facility] 112 [facility] 110 [place] [id number] Yossi Landers MD 112 [facility] 110 [place] [address] Social History Tobacco Use Types [...] How often do you attend chur or mandaeism services? Never 11/12/2022 Do you belong to any clubs o r organizations such as mormon groups, unions, fraternal or athletic groups, or [...] Recorded Patient Health Questionnaire-2 Score 0 10/07/2024 [facility] [place] of Occupat ional Health - Occupational Stress [...] on filedocumented in this encounter Care Teams De Alcholizer Relationship Specialty Start Date End Date Yossi Landers MD [address] [facility] 110 [place] [address] PCP - General Internal Medicine 11/03/22 Yossi Landers MD [address] [facility] 110 [place] [address] PCP - [employer] 11/20/22 Daniela Alvarado LPN [address] [facility] 110 [place] [address] 09/09/24 documented as of this encounter
--- OUTSIDE RECORDS SUMMARY | 2025-01-09 10:49 | XMS_ITS | Encounter Summary ---
Author Organization [facility] Address [address] [place] [address] Care Team Providers Care Lead Software Developer Name Role Phone Yossi Landers MD Primary Care Provider Yossi Landers MD Unavailable [phone] Daniela Alvarado LPN Unavailable Encounter Details Date Type Department Care Team (Late st Contact Info) Description 10/10/2024 Abstract [facility] 112 [facility] 110 [place] [id number] Yossi Landers MD 112 [facility] 110 [place] [address] Social History Tobacco Use Types [...] How often do you attend chur or mandaen services? Never 11/12/2022 Do you belong to any clubs o r organizations such as jehovah's witness groups, unions, fraternal or athletic groups, or [...] Recorded Patient Health Questionnaire-2 Score 0 10/07/2024 [facility] [place] of Occupat ional Health - Occupational Stress [...] on filedocumented in this encounter Care Teams Lead Software Developer Relationship Specialty Start Date End Date Yossi Landers MD [address] [facility] 110 [place] [address] PCP - General Internal Medicine 11/03/22 Yossi Landers MD [address] [facility] 110 [place] [address] PCP - [employer] 11/20/22 Daniela Alvarado LPN [address] [facility] 110 [place] [address] 09/09/24 documented as of this encounter
--- OUTSIDE RECORDS SUMMARY | 2025-01-09 10:49 | XMS_ITS | Encounter Summary ---
Author Organization [facility] Address [address] [place] [address] Care Team Providers Care Home Health Administrator Name Role Phone Yossi Landers MD Primary Care Provider [phone] Yossi Landers MD Unavailable [phone] Daniela Alvarado LPN Unavailable Encounter Details Date Type Department Care Team (Late st Contact Info) Description 10/19/2024 Abstract [facility] 112 [facility] 110 [place] [phone] Yossi Landers MD 112 [facility] 110 [place] [address] Social History Tobacco Use Types [...] Recorded Patient Health Questionnaire-2 Score 0 10/07/2024 [facility] [place] of Occupat ional Health - Occupational Stress [...] on filedocumented in this encounter Care Teams Home Health Administrator Relationship Specialty Start Date End Date Yossi Landers MD [address] [facility] 110 [place] [address] PCP - General Internal Medicine 11/03/22 Yossi Landers MD [address] [facility] 110 [place] [address] PCP - [employer] 11/20/22 Daniela Alvarado LPN [address] [facility] 110 [place] [address] 09/09/24 documented as of this encounter
--- OUTSIDE RECORDS SUMMARY | 2025-01-09 10:49 | XMS_ITS | Encounter Summary ---
Author Organization [facility] Address [address] [place] [address] Care Team Providers Care Reception Interviewer Name Role Phone Yossi Landers MD Primary Care Provider Yossi Landers MD Unavailable [phone] Seble Mejia RN Unavailable Daniela Alvarado LPN Unavailable Encounter Details Date Type Department Care Team (Late st Contact Info) Description 12/22/2023 Abstract [facility] [address] [facility] 110 [place] [address] Yossi Landers MD 112 [facility] 110 [place] [address] Social History Tobacco [...] often do you attend chur ch or restoration services? Never 11/12/2022 Do you belong to any clubs o r organizations such as jainism groups, unions, fraternal or athletic groups, or [...] Recorded Patient Health Questionnaire-2 Score 0 10/12/2023 [facility] of Occupat ional Health - Occupational [...] on filedocumented in this encounter Care Teams Reception Interviewer Relationship Specialty Start Date End Date Yossi Landers MD [address] [facility] 110 [place] [address] PCP - General Internal Medicine 11/03/22 Yossi Landers MD [address] [facility] [address] [place] [address] PCP - [employer] 11/20/22 Seble Mejia, RN [address] [place] [address] [facility] 07/29/24 09/09/24 Daniela Alvarado LPN [address] [facility] [address] [place] [address] 09/09/24 documented as of this encounter
--- OUTSIDE RECORDS SUMMARY | 2025-01-09 10:49 | XMS_ITS | Encounter Summary ---
Author Organization [facility] Address [address] [place] [address] Care Team Providers Care Boat Tender Name Role Phone Yossi Landers MD Primary Care Provider [phone] Yossi Landers MD Unavailable [phone] Daniela Alvarado LPN Unavailable Encounter Details Date Type Department Care Team (Late st Contact Info) Description 09/22/2024 Abstract [facility] 112 [facility] 110 [place] [phone] Yossi Landers MD 112 [facility] 110 [place] [address] Social History Tobacco Use Types [...] How often do you attend chur or voodoo services? Never 11/12/2022 Do you belong to [...] Recorded Patient Health Questionnaire-2 Score 2 09/15/2024 [facility] of Occupat ional Health - Occupational Stress [...] on filedocumented in this encounter Care Teams Boat Tender Relationship Specialty Start Date End Date Yossi Landers MD [address] [facility] [address] [place] [address] PCP - General Internal Medicine 11/03/22 Yossi Landers MD [address] [facility] [address] [place] [address] PCP - [employer] 11/20/22 Daniela Alvarado LPN [address] [facility] 110 [place] [address] 09/09/24 documented as of this encounter
--- OUTSIDE RECORDS SUMMARY | 2025-01-09 10:49 | XMS_ITS | Encounter Summary ---
Author Organization [facility] Address [address] [facility] [place] [address] Care Team Providers Care Personalized Living Assistant Name Role Phone Yossi Landers MD Primary Care Provider Yossi Landers MD Unavailable [phone] Seble Mejia RN Unavailable Daniela Alvarado LPN Unavailable Encounter Details Date Type Department Care Team (Late st Contact Info) Description 11/27/2022 Abstract [facility] [address] [facility] [facility] 110 [place] [address] Yossi Landers MD 112 [facility] 110 [place] [address] Social History Tobacco Use [...] 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 Not very hard 11/12/2022 [facility] of Occupat ional Health [...] on filedocumented in this encounter Care Teams Personalized Living Assistant Relationship Specialty Start Date End Date Yossi Landers MD [address] [facility] 110 [place] [address] PCP - General Internal Medicine 11/03/22 Yossi Landers MD [address] [facility] 110 [place] [address] PCP - [employer] 11/20/22 Seble Mejia, CIPRIANO [address] [place] [address] Clinical [facility] 07/29/24 09/09/24 Daniela Alvarado LPN [address] [facility] 110 [place] [address] 09/09/24 documented as of this encounter
--- OUTSIDE RECORDS SUMMARY | 2025-01-09 10:49 | XMS_ITS | Encounter Summary ---
Author Organization [facility] Address [address] [place] [address] Care Team Providers Care Service Planner Name Role Phone Yossi Landers MD Primary Care Provider [phone] Yossi Landers MD Unavailable [phone] Daniela Alvarado LPN Unavailable Encounter Details Date Type Department Care Team (Late st Contact Info) Description 10/24/2024 Abstract [facility] 112 [facility] 110 [place] [address] Yossi Landers MD 112 [facility] 110 [place] [address] Social History Tobacco Use Types [...] How often do you attend chur or restorationism services? Never 11/12/2022 Do you [...] Recorded Patient Health Questionnaire-2 Score 0 10/07/2024 [facility] [place] of Occupat ional Health - Occupational Stress [...] on filedocumented in this encounter Care Teams Service Planner Relationship Specialty Start Date End Date Yossi Landers MD [address] [facility] 110 [place] [address] PCP - General Internal Medicine 11/03/22 Yossi Landers MD [address] [facility] 110 [place] [address] PCP - [employer] 11/20/22 Daniela Alvarado LPN [address] [facility] 110 [place] [address] 09/09/24 documented as of this encounter
--- OUTSIDE RECORDS SUMMARY | 2025-01-09 10:49 | XMS_ITS | Encounter Summary ---
Author Organization [facility] Address [address] [place] [address] Phone Care Team Providers Care Transcription Name Role Phone Unavailable Primary Care Provider Unavailabl e Encounter Details Date Type Department Care Team (Late st Contact Info) Description 02/24/[address] [facility] [address] [place] [address] Conversion, Onbase Social History Tobacco Use Types [...] r Schedule OUTSIDE LAB SCAN Lab Ordered: 02/24/2020 documented as of this encounter Visit Diagnoses Not on filedocumented in this encounter
--- OUTSIDE RECORDS SUMMARY | 2025-01-09 10:49 | XMS_ITS | Encounter Summary ---
Author Organization [facility] Address [address] [place] [address] Care Team Providers Care Welding Rod Coater Name Role Phone Yossi Landers MD Primary Care Provider Yossi Landers MD Unavailable [phone] Seble Mejia RN Unavailable [phone] Daniela Alvarado LPN Unavailable Encounter Details Date Type Department Care Team (Late st Contact Info) Description 10/13/2023 Abstract [facility] 112 [facility] [facility] 110 [place] [address] Yossi Landers MD 112 [facility] 110 [place] [address] Social History Tobacco Use Types [...] any clubs o r organizations such as presybeterian groups, unions, fraternal or athletic groups, or [...] Recorded Patient Health Questionnaire-2 Score 0 10/12/2023 [facility] of Occupat ional Health - Occupational [...] on filedocumented in this encounter Care Teams Welding Rod Coater Relationship Specialty Start Date End Date Yossi Landers MD [address] [facility] 110 [place] [address] PCP - General Internal Medicine 11/03/22 Yossi Landers MD [address] [facility] [address] [place] [address] PCP - [employer] 11/20/22 Seble Mejia, RN [address] [place] [address] Clinical [facility] 07/29/24 09/09/24 Daniela Alvarado LPN [address] [facility] [address] [place] [address] 09/09/24 documented as of this encounter
--- OUTSIDE RECORDS SUMMARY | 2025-01-09 10:49 | XMS_ITS | Encounter Summary ---
Author Organization [facility] Address [address] [place] [address] Care Team Providers Care Operating Room Coordinator Name Role Phone Yossi Landers MD Primary Care Provider [phone] Yossi Landers MD Unavailable [phone] Seble Mejia RN Unavailable Daniela Alvarado LPN Unavailable Encounter Details Date Type Department Care Team (Late st Contact Info) Description 12/30/2023 Abstract [facility] 112 [facility] 110 [place] [address] Yossi Landers MD 112 [facility] 110 [place] [address] Social History Tobacco Use Types [...] often do you attend chur ch or holiness services? Never 11/12/2022 Do you belong to [...] on filedocumented in this encounter Care Teams Operating Room Coordinator Relationship Specialty Start Date End Date Yossi Landers MD [address] [facility] 110 [place] [address] PCP - General Internal Medicine 11/03/22 Yossi Landers MD [address] [facility] [address] [place] [address] PCP - [employer] 11/20/22 Seble Mejia, RN [address] [place] [address] Clinical [facility] Family [facility] 07/29/24 09/09/24 Daniela Alvarado LPN [address] [facility] [address] [place] [address] 09/09/24 documented as of this encounter
--- OUTSIDE RECORDS SUMMARY | 2025-01-09 10:49 | XMS_ITS | Encounter Summary ---
Author Organization [facility] Address [address] [facility] [place] [address] Care Team Providers Care Skimmer Reverberatory Name Role Phone Yossi Landers MD Primary Care Provider [phone] Yossi Landers MD Unavailable [phone] Seble Mejia RN Unavailable Daniela Alvarado LPN Unavailable Encounter Details Date Type Department Care Team (Late st Contact Info) Description 12/02/2022 Abstract [facility] [address] [facility] 110 [place] [address] Yossi Landers MD 112 [facility] 110 [place] [address] Social History Tobacco Use Types [...] often do you attend chur ch or hindu services? Never 11/12/2022 Do you belong to any clubs o r organizations such as spiritism groups, unions, fraternal or athletic groups, or [...] on filedocumented in this encounter Care Teams Skimmer Reverberatory Relationship Specialty Start Date End Date Yossi Landers MD [address] [facility] 110 [place] [address] PCP - General Internal Medicine 11/03/22 Yossi Landers MD [address] [facility] 110 [place] [address] PCP - [employer] 11/20/22 Seble Mejia, CIPRIANO [address] [place] [address] Clinical [facility] 07/29/24 09/09/24 Daniela Alvarado LPN [address] [facility] 110 [place] [address] 09/09/24 documented as of this encounter
--- NOTE | 2025-01-09 10:55 | XR_ITS ---
The [place] [id number] Patient Name: ELGIN NORWOOD MRN: [id number] date: 1940 Sex: F Assigned Patient Location: ED.MAIN Current Patient Location: ED.MAIN Accession/Order Number: [id number] Exam Date: 01/09/2025 11:34 Report Date: 01/09/2025 11:36 At the request of: JOSELUIS KUMAR MD Procedure: XR chest 1V Single view chest: CLINICAL HISTORY: shortness of breath COMPARISON: Chest 09/30/2024 FINDINGS: The heart is normal in size. Lungs demonstrate mild interstitial changes without consolidation. The pulmonary vasculature is normal. Mediastinum and hilar regions are unremarkable. No pleural effusions are seen. Visualized bones are intact. XR/XR chest 1V IMPRESSION: MILD INTERSTITIAL CHANGES SIMILAR TO THE PRIOR STUDY. NO CONSOLIDATION TO SUGGEST PNEUMONIA. Impression dictated by: Renard Soriano Jr., DAjithOAjith 01/09/2025 11:36 AM Dictation Location: [place] [address] Electronically authenticated by: [id number] Y Date: 01/09/2025 11:36
--- NOTE | 2025-01-09 10:55 | ECG_ITS ---
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 Measurements Intervals Maynard Rate: 65 P: 82 KS: 176 QRS: 38 QRSD: 100 T: 67 QT: 392 QTc: 403 Interpretive Statements 1100 Sinus rhythm 0102 ARTIFACT PRESENT 9110 normal ECG Compared to ECG 09/30/2024 11:06:07 No significant changes Electronically Signed On 01-09-2025 18:30:21 EDT by EMILY CHING M.D.
[2025-01-09 11:28] LABS: Hematocrit 37.4 % (36.0-48.0); Hemoglobin 12.1 g/dL (12.0-16.0); Immature Granulocytes Abs Auto 0.03 10^3/uL (0.00-0.03); Immature Granulocytes Pct Auto 0.4 % (0.0-0.5); Lymphocytes Absolute Auto 2.0 10^3/uL (1.2-3.8); Mean Corpuscular HGB Conc 32.4 g/dL (29.9-35.2); Mean Corpuscular Hemoglobin 30.6 pg (26.7-34.0); Mean Corpuscular Volume 94.7 fL (81.0-99.0); Platelet Count 171 10^3/uL (150-450); Red Blood Count 3.95 10^6/uL (4.20-5.40); White Blood Count 7.9 10^3/uL (4.0-11.0)
[2025-01-09 11:48] LABS: Alanine Aminotransferase 18 U/L (14-59); Albumin Globulin Ratio 0.9; Albumin Level 3.1 g/dL (3.4-5.0); Alkaline Phosphatase 93 U/L (46-116); Anion Gap 12.4; Aspartate Amino Transferase 17 U/L (15-37); Blood Urea Nitrogen 14.0 mg/dL (7.0-18.0); Calcium 9.3 mg/dL (8.5-10.1); Carbon Dioxide 27.8 mmol/L (21.0-32.0); Chloride 104 mmol/L (98-107); Estimated GFR (African America >60 (>=60 mL/min/1.73m^2); Estimated GFR (Non-African Ame >60 (>=60 mL/min/1.73m^2); Globulin 3.3 g/dL; Glucose 103 mg/dL (74-106); Potassium 4.2 mmol/L (3.5-5.1); Sodium 140 mmol/L (136-145); Total Protein 6.4 g/dL (6.4-8.2)
[2025-01-09 11:52] LABS: NT Pro B Type Natriuretic Pept 366.0 pg/mL (<=1800.0)
[2025-01-09 11:53] LABS: INR 1.00; Prothrombin Time 10.6 sec (9.0-11.6)
[2025-01-09] MEDS: IPRATROPIUM/ALBUTEROL SULFATE 3 ML AMPUL.NEB IH ×3 (12:01→23:50)
--- NOTE | 2025-01-09 12:40 | ED.SOB1 ---
HPI - SOB/Dyspnea General Chief Complaint: Shortness of Breath/Dyspnea Stated Complaint: SOB SENT BY DR LANDERS Time Seen by Provider: 01/09/25 10:55 Source: patient and family Mode of arrival: Wheelchair Limitations: no limitations History of Present Illness HPI Narrative: 84-year-old female to the emergency department with chief complaint of shortness of breath and fluid retention. Patient was seen in the office of her primary care doctor, Dr. Landers this AM. Patient complained of increasing shortness of breath. Patient has gained approximately 15 pounds since her last visit just a few weeks ago. He was concerned about congestive heart failure. Patient reports she does have some leg swelling. She does take torsemide daily. She formally followed with [facility] however has not seen a terminal press operator in some time. She does not have any chest pain. She denies any fever, sweats, chills. She has had a dry cough. She typically uses breathing treatments, did not use them today. She had increased work of breathing and weight gain prompting ED visit from the PCP today. Related Data Home Medications ?Medication ?Instructions ?Recorded ?Confirmed alprazolam 0.25 mg tablet 0.25 mg PO TID PRN anxiety 08/02/23 01/09/25 aspirin 81 mg chewable tablet 81 mg PO DAILY 08/02/23 01/09/25 ([place] Chewable Low Dose Aspirin) carvedilol 12.5 mg tablet 12.5 mg PO Q12H 08/02/23 01/09/25 duloxetine 60 mg capsule,delayed 60 mg PO DAILY 08/02/23 01/09/25 release gabapentin 100 mg capsule 200 mg PO Q12H 08/02/23 01/09/25 loratadine 10 mg tablet 10 mg PO Q24H 08/02/23 01/09/25 hydrocodone 7.5 mg-acetaminophen 1 tab PO Q6H PRN severe pain 08/03/23 01/09/25 325 mg tablet (scale score 7-10) levothyroxine 100 mcg tablet 100 mcg PO DAILY 08/03/23 01/09/25 lisinopril 5 mg tablet 5 mg PO DAILY 08/13/24 01/09/25 fluticasone fur. 100 mcg-umeclid 1 inh inhalation Q24H 09/22/24 01/09/25 62.5 mcg-vilant 25 mcg inhalat.powder (Trelegy Ellipta) famotidine 20 mg tablet 20 mg PO DAILY 09/30/24 01/09/25 atorvastatin 40 mg tablet 40 mg PO DAILY 01/09/25 01/09/25 memantine 5 mg-10 mg tablets in a 1 ea PO DAILY 01/09/25 01/09/25 dose pack omeprazole 20 mg capsule,delayed 20 mg PO DAILY 01/09/25 01/09/25 release omeprazole 40 mg capsule,delayed 40 mg PO .qd 01/09/25 01/09/25 release torsemide 10 mg tablet 10 mg PO DAILY 01/09/25 01/09/25 Previous Rx's ?Medication ?Instructions ?Recorded hyoscyamine sulfate 0.125 mg 0.125 mg sublingual Q4H PRN 10/04/24 sublingual tablet Cramping #30 tabs polyethylene glycol 3350 17 gram 17 g PO QD #30 ea 10/04/24 oral powder packet Allergies Allergy/AdvReac Type Severity Reaction Status Date / Time rofecoxib (From Vioxx) Allergy Severe Unknown Verified 08/13/24 14:24 naproxen (From Aleve) Allergy Intermediate Unknown Verified 08/13/24 14:24 Review of Systems ROS Status of ROS 10 or more systems reviewed and unremarkable except as noted in history and below [facility] Medical History (Updated 01/09/25 @ 14:25 by Daron Goodman MD) Nausea & vomiting ?R11.2 - Nausea with vomiting, unspecified (ICD-10) Constipation by delayed colonic transit ?K59.01 - Slow transit constipation (ICD-10) Generalized weakness ?R53.1 - Weakness (ICD-10) Pneumonia ?J18.9 - Pneumonia, unspecified organism (ICD-10) CAD (coronary artery disease) ?I25.10 - Atherosclerotic heart disease of [place] coronary artery without angina pectoris (ICD-10) Type 2 diabetes mellitus with hyperglycemia ?E11.65 - Type 2 diabetes mellitus with hyperglycemia (ICD-10) Degenerative lumbar spinal stenosis ?M48.061 - Spinal stenosis, lumbar region without neurogenic claudication (ICD-10) Chronic heart failure with preserved ejection fraction (HFpEF) ?I50.32 - Chronic diastolic (congestive) heart failure (ICD-10) HTN (hypertension) ?I10 - Essential (primary) hypertension (ICD-10) COPD (chronic obstructive pulmonary disease) ?J44.9 - Chronic obstructive pulmonary disease, unspecified (ICD-10) Primary osteoarthritis of right hip ?M16.11 - Unilateral primary osteoarthritis, right hip (ICD-10) Abdominal bloating ?R14.0 - Abdominal distension (gaseous) (ICD-10) Anxiety ?F41.9 - Anxiety disorder, unspecified (ICD-10) COPD exacerbation ?J44.1 - Chronic obstructive pulmonary disease with (acute) exacerbation (ICD-10) Acute costochondritis ?M94.0 - Chondrocostal junction syndrome [Tietze] (ICD-10) Fall ?W19.XXXA - Unspecified fall, initial encounter (ICD-10) Contusion of rib on right side ?S20.211A - Contusion of right front wall of thorax, initial encounter (ICD-10) Contusion of knee, left ?S80.02XA - Contusion of left knee, initial encounter (ICD-10) Constipation ?K59.00 - Constipation, unspecified (ICD-10) Chest wall pain ?R07.89 - Other chest pain (ICD-10) Abdominal pain ?R10.9 - Unspecified abdominal pain (ICD-10) No problem, feared complaint unfounded ?Z71.1 - Person with feared health complaint in whom no diagnosis is made (ICD-10) Grief reaction ?F43.21 - Adjustment disorder with depressed mood (ICD-10) Dehydration ?E86.0 - Dehydration (ICD-10) Head injury ?S09.90XA - Unspecified injury of head, initial encounter (ICD-10) COPD exacerbation ?J44.1 - Chronic obstructive pulmonary disease with (acute) exacerbation (ICD-10) Nausea ?R11.0 - Nausea (ICD-10) Hypothyroidism ?E03.9 - Hypothyroidism, unspecified (ICD-10) HLD (hyperlipidemia) ?E78.5 - Hyperlipidemia, unspecified (ICD-10) Insufficient home care support ?Z74.2 - Need for assistance at home and no other household member able to render care (ICD-10) Muscular deconditioning ?R29.898 - Other symptoms and signs involving the musculoskeletal system (ICD-10) CHF (congestive heart failure) ?I50.9 - Heart failure, unspecified (ICD-10) Surgical History H/O hysterectomy for benign disease ?Z90.710 - Acquired absence of both cervix and uterus (ICD-10) Previous back surgery ?Z98.890 - Other specified postprocedural states (ICD-10) H/O hernia repair ?Z98.890 - Other specified postprocedural states (ICD-10) ?Z87.19 - Personal history of other diseases of the digestive system (ICD-10) Family History Mother Family history of cancer Sister Family history of diabetes mellitus Social History Within the past year, how often did you have a drink containing alcohol: never Score interpretation: A score less than 3 is consistent with normal alcohol consumption. 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 Known occupational exposures/hazards: No Highest level of school completed/degree received: 7th grade In a typical week, how many times do you talk on the telephone with family, friends, or neighbors: twice per week How often do you get together with friends or relatives: twice per week How often do you attend lutheran or buddhist services: never Little interest or pleasure in doing things: more than half the days Feeling down, depressed, or hopeless: nearly every day Feel stressed/tense/nervous/anxious/difficulty sleeping: not at all Exam Narrative Exam Narrative: VITALS: I have reviewed the triage vital signs. GENERAL: Obese elderly female in mild respiratory distress NEURO: Alert and oriented. Moves all extremities. Face is symmetric and expressive. EYES: PERRL. No scleral icterus or conjunctival injection. No discharge. HENT: Normocephalic, atraumatic. Hearing is grossly intact. Nares grossly patent and without discharge. Mucous membranes moist. NECK: No JVD. Patient moves neck without restriction. CARDIO: Rhythm regular. Normal rate. No murmur, rub, or gallop. Pulses equal bilaterally in the upper and lower extremity. No lower extremity edema. PULM: Diminished at the bases bilaterally. Some trace wheezes and rales. Mild conversational dyspnea. Mild increased work of breathing. GI/: Abdomen is soft and non-tender. Normoactive bowel sounds. EXTREMITIES: Symmetric muscle bulk. No joint swelling. No clubbing, cyanosis, or deformity. SKIN: Warm and dry. Normal turgor. No rash or lesions appreciated. PSYCH: Mood, affect, and interaction is appropriate to the setting. Constitutional Vital Signs, click to edit/add: Last Vital Signs Temp 97.9 F 01/09/25 14:00 Pulse 70 01/09/25 14:00 Resp 22 H 01/09/25 14:00 BP 154/67 H 01/09/25 14:00 Pulse Ox 99 01/09/25 14:00 O2 Del Method Room Air 01/09/25 14:00 Course Vital Signs Vital signs: Vital Signs Pulse Oximetry 96 01/09/25 10:53 Temperature 97.9 F 01/09/25 14:00 Pulse Rate 70 01/09/25 14:00 Respiratory Rate 22 H 01/09/25 14:00 Blood Pressure 154/67 H 01/09/25 14:00 Pulse Oximetry 99 01/09/25 14:00 Oxygen Delivery Method Room Air 01/09/25 14:00 MDM - SOB/Dyspnea MDM Narrative Medical decision making narrative: 84-year-old female to the emergency department chief complaint of weight gain and shortness of breath. Tachypneic, otherwise stable vitals. The patient is afebrile. Clinically she appears to be a mixed picture of some volume overloaded state as well as COPD exacerbation. Blood work reviewed and noted. BNP is low. Troponin normal. Chest x-ray with interstitial disease noted. No acute findings. EKG without evidence of ischemia. She felt improved after the breathing treatment. She continues to have some increased work of breathing however and difficulty ambulating. Discussed with the patient and her daughter. Plan for admission. Will cover with steroids for potential COPD exacerbation. Dose of Lasix is given given her volume overload. Case discussed with hospitalist who agrees admit this patient to his service. Differential Diagnosis Differential diagnosis: Likely acute exacerbation of chronic obstructive airways disease, congestive heart failure and community acquired pneumonia Medical Records Attestation: I reviewed the patient's medical records. Lab Data Attestation: I reviewed the patient's lab results. Labs: Lab Results 01/09/25 Range/Units 11:08 WBC 7.9 (4.0-11.0) 10^3/uL RBC 3.95 L (4.20-5.40) 10^6/uL Hgb 12.1 (12.0-16.0) g/dL Hct 37.4 (36.0-48.0) % MCV 94.7 (81.0-99.0) fL MCH 30.6 (26.7-34.0) pg MCHC 32.4 (29.9-35.2) g/dL RDW 13.5 (11.0-15.0) % Plt Count 171 (150-450) 10^3/uL MPV 10.6 (9.5-13.5) fL Neut % (Auto) 64.8 (43.0-75.0) % Lymph % (Auto) 24.9 (20.5-60.0) % Braxton % (Auto) 7.6 (1.7-12.0) % Eos % (Auto) 1.5 (0.9-7.0) % Baso % (Auto) 0.8 (0.2-2.0) % Neut # (Auto) 5.1 (1.4-6.5) 10^3/uL Lymph # (Auto) 2.0 (1.2-3.8) 10^3/uL Braxton # (Auto) 0.6 (0.3-0.8) 10^3/uL Eos # (Auto) 0.1 (0.0-0.7) 10^3/uL Baso # (Auto) 0.1 (0.0-0.1) 10^3/uL Abs Immat Gran (auto) 0.03 (0.00-0.03) 10^3/uL Imm/Tot Granulo (auto) 0.4 (0.0-0.5) % PT 10.6 (9.0-11.6) sec INR 1.00 Sodium 140 (136-145) mmol/L Potassium 4.2 (3.5-5.1) mmol/L Chloride 104 (98-107) mmol/L Carbon Dioxide 27.8 (21.0-32.0) mmol/L Anion Gap 12.4 BUN 14.0 (7.0-18.0) mg/dL Creatinine 0.75 (0.55-1.02) mg/dL Est GFR ( Amer) >60 (>=60 mL/min/1.73m^2) Est GFR (Non-Af Amer) >60 (>=60 mL/min/1.73m^2) BUN/Creatinine Ratio 18.7 Glucose 103 (74-106) mg/dL Calcium 9.3 (8.5-10.1) mg/dL Total Bilirubin 0.7 (0.2-1.0) mg/dL AST 17 (15-37) U/L ALT 18 (14-59) U/L Alkaline Phosphatase 93 (46-116) U/L Troponin I High Sens 7.8 (4.0-51.3) pg/mL NT-Pro-B Natriuret Pep 366.0 (<=1800.0) pg/mL Total Protein 6.4 (6.4-8.2) g/dL Albumin 3.1 L (3.4-5.0) g/dL Globulin 3.3 g/dL Albumin/Globulin Ratio 0.9 Imaging Data Chest x-ray: Attestation: I have reviewed the pertinent imaging results. Radiologist's impression: ITS Impressions Chest X-Ray 01/09/25 10:55 IMPRESSION: MILD INTERSTITIAL CHANGES SIMILAR TO THE PRIOR STUDY. NO CONSOLIDATION TO SUGGEST PNEUMONIA. Impression dictated by: Renard Soriano Jr., D.O. 01/09/2025 11:36 AM Dictation Location: [place] [address] Electronically authenticated by: [id number] Y Date: 01/09/2025 11:36 ECG Data Attestation: I personally reviewed and interpreted this ECG as follows: (Normal sinus rhythm at a rate of 65. No STEMI. Normal QTc at 403.) Discharge Plan Discharge Chief Complaint: Shortness of Breath/Dyspnea Clinical Impression: COPD exacerbation, Increasing shortness of breath, Congestive heart failure Patient Disposition: Admitted As Inpatient Discharge Date/Time: 01/09/25 13:51
--- NOTE | 2025-01-09 13:43 | PM.IMHP1 ---
Internal Medicine - H&P: HPI History of Present Illness Chief complaint: SOB, SHORTNESS OF BREATH, COPD Narrative: This is a 84-year-old female with past medical of CAD, type 2 diabetes, degenerative lumbar spinal stenosis, hypertension, COPD, osteoarthritis of the right hip, anxiety, hypothyroidism, dyslipidemia, debility, CHF, obesity, constipation and generalized weakness who presents today after she was seen at her primary care office for concern for fluid overload. Patient was in the room with her [id number]. She appears anxious and she was tachypneic and not able to speak in full sentence, her [id number] states that this has been her baseline for years now. I was concerned initially but her daughter reassured me that this is how the patient looks for years. She states that she was at the regular visit to her PCP where she needed to get blood work so she was fasting, when her PCP examined her she stated that he was concerned about fluid overload and he wanted her to come to the hospital especially that she gained around 30 pounds since her last visit with the USER INTERFACE DEVELOPER compared to the way that she got here at the PCP office. When I saw the patient, she denies any new shortness of breath or dyspnea on exertion. She walks with a walker at home lives with her son and [id number], denies any fever or chills or chest pain or nausea or vomiting or diaphoresis. Denies any dizziness or syncope. On exam there was some wheezing as per the ER staff. Labs were unremarkable including CBC and CMP as well as normal proBNP. Chest x-ray showed mild interstitial markings compatible with failure EKG x 1 showed normal sinus rhythm with a QTc of 403 ms. Patient see 1 dose of IV Lasix 40 mg as well as 1 dose of methylprednisolone 125 mg IV once. Also received 1 course of DuoNeb. When I saw her she was saturating 90% on room air patient to be admitted under hospitalist service for further workup and management. Of note, patient had an echo done back in May 2024 that showed normal left ventricular chamber size with borderline LVH. EF of 60% with no regional wall abnormalities. Normal right ventricular chamber size. Decreased right ventricular systolic function with small pericardial effusion and fibrinous appearance. No evidence of tamponade. Review of Systems ROS Status of ROS 10 or more systems reviewed and unremarkable except as noted in history and below [facility] Medical History (Updated 01/09/25 @ 13:49 by Mandi Murillo MD) Nausea & vomiting ?R11.2 - Nausea with vomiting, unspecified (ICD-10) Constipation by delayed colonic transit ?K59.01 - Slow transit constipation (ICD-10) Generalized weakness ?R53.1 - Weakness (ICD-10) Pneumonia ?J18.9 - Pneumonia, unspecified organism (ICD-10) CAD (coronary artery disease) ?I25.10 - Atherosclerotic heart disease of [place] coronary artery without angina pectoris (ICD-10) Type 2 diabetes mellitus with hyperglycemia ?E11.65 - Type 2 diabetes mellitus with hyperglycemia (ICD-10) Degenerative lumbar spinal stenosis ?M48.061 - Spinal stenosis, lumbar region without neurogenic claudication (ICD-10) Chronic heart failure with preserved ejection fraction (HFpEF) ?I50.32 - Chronic diastolic (congestive) heart failure (ICD-10) HTN (hypertension) ?I10 - Essential (primary) hypertension (ICD-10) COPD (chronic obstructive pulmonary disease) ?J44.9 - Chronic obstructive pulmonary disease, unspecified (ICD-10) Primary osteoarthritis of right hip ?M16.11 - Unilateral primary osteoarthritis, right hip (ICD-10) Abdominal bloating ?R14.0 - Abdominal distension (gaseous) (ICD-10) Anxiety ?F41.9 - Anxiety disorder, unspecified (ICD-10) COPD exacerbation ?J44.1 - Chronic obstructive pulmonary disease with (acute) exacerbation (ICD-10) Acute costochondritis ?M94.0 - Chondrocostal junction syndrome [Tietze] (ICD-10) Fall ?W19.XXXA - Unspecified fall, initial encounter (ICD-10) Contusion of rib on right side ?S20.211A - Contusion of right front wall of thorax, initial encounter (ICD-10) Contusion of knee, left ?S80.02XA - Contusion of left knee, initial encounter (ICD-10) Constipation ?K59.00 - Constipation, unspecified (ICD-10) Chest wall pain ?R07.89 - Other chest pain (ICD-10) Abdominal pain ?R10.9 - Unspecified abdominal pain (ICD-10) No problem, feared complaint unfounded ?Z71.1 - Person with feared health complaint in whom no diagnosis is made (ICD-10) Grief reaction ?F43.21 - Adjustment disorder with depressed mood (ICD-10) Dehydration ?E86.0 - Dehydration (ICD-10) Head injury ?S09.90XA - Unspecified injury of head, initial encounter (ICD-10) COPD exacerbation ?J44.1 - Chronic obstructive pulmonary disease with (acute) exacerbation (ICD-10) Nausea ?R11.0 - Nausea (ICD-10) Hypothyroidism ?E03.9 - Hypothyroidism, unspecified (ICD-10) HLD (hyperlipidemia) ?E78.5 - Hyperlipidemia, unspecified (ICD-10) Insufficient home care support ?Z74.2 - Need for assistance at home and no other household member able to render care (ICD-10) Muscular deconditioning ?R29.898 - Other symptoms and signs involving the musculoskeletal system (ICD-10) CHF (congestive heart failure) ?I50.9 - Heart failure, unspecified (ICD-10) Surgical History H/O hysterectomy for benign disease ?Z90.710 - Acquired absence of both cervix and uterus (ICD-10) Previous back surgery ?Z98.890 - Other specified postprocedural states (ICD-10) H/O hernia repair ?Z98.890 - Other specified postprocedural states (ICD-10) ?Z87.19 - Personal history of other diseases of the digestive system (ICD-10) Family History Mother Family history of cancer Sister Family history of diabetes mellitus Social History Within the past year, how often did you have a drink containing alcohol: never Score interpretation: A score less than 3 is consistent with normal alcohol consumption. 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 Known occupational exposures/hazards: No Highest level of school completed/degree received: 7th grade In a typical week, how many times do you talk on the telephone with family, friends, or neighbors: twice per week How often do you get together with friends or relatives: twice per week How often do you attend catholic or worship services: never Little interest or pleasure in doing things: not at all Feeling down, depressed, or hopeless: not at all Feel stressed/tense/nervous/anxious/difficulty sleeping: not at all Meds Home Medications and Allergies Home Medications ?Medication ?Instructions ?Recorded ?Confirmed ?Type alprazolam 0.25 mg tablet 0.25 mg PO TID PRN anxiety 08/02/23 01/09/25 History aspirin 81 mg chewable tablet 81 mg PO DAILY 08/02/23 01/09/25 History ([place] Chewable Low Dose Aspirin) carvedilol 12.5 mg tablet 12.5 mg PO Q12H 08/02/23 01/09/25 History duloxetine 60 mg capsule,delayed 60 mg PO DAILY 08/02/23 01/09/25 History release gabapentin 100 mg capsule 200 mg PO Q12H 08/02/23 01/09/25 History loratadine 10 mg tablet 10 mg PO Q24H 08/02/23 01/09/25 History hydrocodone 7.5 mg-acetaminophen 1 tab PO Q6H PRN severe pain 08/03/23 01/09/25 History 325 mg tablet (scale score 7-10) levothyroxine 100 mcg tablet 100 mcg PO DAILY 08/03/23 01/09/25 History lisinopril 5 mg tablet 5 mg PO DAILY 08/13/24 01/09/25 History fluticasone fur. 100 mcg-umeclid 1 inh inhalation Q24H 09/22/24 01/09/25 History 62.5 mcg-vilant 25 mcg inhalat.powder (Trelegy Ellipta) ondansetron HCl 4 mg tablet 4 mg PO Q8H PRN nausea and 09/24/24 01/09/25 Rx vomiting 3 days #9 tabs famotidine 20 mg tablet 20 mg PO DAILY 09/30/24 01/09/25 History hyoscyamine sulfate 0.125 mg 0.125 mg sublingual Q4H PRN 10/04/24 01/09/25 Rx sublingual tablet Cramping #30 tabs polyethylene glycol 3350 17 gram 17 g PO QD #30 ea 10/04/24 01/09/25 Rx oral powder packet atorvastatin 40 mg tablet 40 mg PO DAILY 01/09/25 01/09/25 History memantine 5 mg-10 mg tablets in a 1 ea PO DAILY 01/09/25 01/09/25 History dose pack omeprazole 20 mg capsule,delayed 20 mg PO DAILY 01/09/25 01/09/25 History release torsemide 10 mg tablet 10 mg PO DAILY 01/09/25 01/09/25 History Allergies Allergy/AdvReac Type Severity Reaction Status Date / Time rofecoxib (From Vioxx) Allergy Severe Unknown Verified 08/13/24 14:24 naproxen (From Aleve) Allergy Intermediate Unknown Verified 08/13/24 14:24 Exam Narrative Exam Narrative: GENERAL: Obese elderly female, not in acute distress, frail and fragile, ill appearing NEURO: Alert and oriented. Moves all extremities EYES: PERRL. No scleral icterus or conjunctival injection. No discharge. HENT: Normocephalic, atraumatic. Hearing is grossly intact. Nares grossly patent and without discharge. Mucous membranes moist. NECK: No JVD. Patient moves neck without restriction. No lymphadenopathy no thyromegaly CARDIO: Rhythm regular. Normal rate. No murmur, rub, or gallop. Pulses equal bilaterally in the upper and lower extremity. No lower extremity edema. PULM: Diminished at the bases bilaterally. Some trace wheezes and rales. She is at baseline respiratory status not able to speak in full sentences and does have increased work of breathing. No use accessory muscles no use of abdominal muscles. Saturating on 9% on room air GI/: Abdomen is soft and non-tender. Normoactive bowel sounds. EXTREMITIES: Symmetric muscle bulk. No joint swelling. No clubbing, cyanosis, or deformity. Patient had bilateral 2+ nonpitting edema. Intact peripheral pulses bilaterally Constitutional Vital Signs, click to edit/add: Last Vital Signs Temp 98.4 F 01/09/25 10:56 Pulse 67 01/09/25 12:40 Resp 17 01/09/25 12:40 BP 143/96 H 01/09/25 12:01 Pulse Ox 99 01/09/25 13:10 O2 Del Method Room Air 01/09/25 12:02 Internal Medicine - H&P: Reslt Labs Labs: Short CBC 01/09/25 Range/Units 11:08 WBC 7.9 (4.0-11.0) 10^3/uL Hgb 12.1 (12.0-16.0) g/dL Hct 37.4 (36.0-48.0) % Plt Count 171 (150-450) 10^3/uL BMP 01/09/25 11:08 Sodium 140 Potassium 4.2 Chloride 104 Carbon Dioxide 27.8 BUN 14.0 Creatinine 0.75 Glucose 103 Calcium 9.3 Liver Function 01/09/25 Range/Units 11:08 Total Bilirubin 0.7 (0.2-1.0) mg/dL AST 17 (15-37) U/L ALT 18 (14-59) U/L Alkaline Phosphatase 93 (46-116) U/L Albumin 3.1 L (3.4-5.0) g/dL Assessment and Plan Assessment and Plan (1) COPD exacerbation: (2) CHF exacerbation: Plan Diastolic CHF exacerbation COPD exacerbation - Admit patient to medical floor with telemetry - Start IV Lasix 40 mg twice daily - Start DuoNeb every 4 hours - Start methylprednisolone IV 40 mg every 12 hours - Continue patient's home Trelegy - Strict I's and O's - Daily weight - Obtain repeat echo to assess for her pericardial effusion as well as her systolic function, it would be limited - Obtain cardiology consult - Obtain PT/OT evaluation - I discussed the goals of care with the patient and her [id number]-[id number]-exj, she opted for DNR CCA without intubation which I will put in the chart answer all the question
[2025-01-09] MEDS: FUROSEMIDE 40 MG/4 ML VIAL IVP ×2 (13:44→20:59)
[2025-01-09] MEDS: METHYLPREDNISOLONE SOD SUCC PF 125 MG/2 ML VIAL IVP (13:44)
--- NOTE | 2025-01-09 13:50 | CA_ITS ---
Patient Name: ELGIN NORWOOD MR#: [id number] : 1940 Exam Date: 01/09/2025 Ordering Doctor: SARA SHAY ECHOCARDIOGRAM REPORT PROCEDURE: CA ECHO LIMITED INDICATIONS: Shortness of breath, pericardial effusion R/O tamponade COMPARISON: None. DESCRIPTION: Limited ECHOCARDIOGRAM Real-time transthoracic echocardiography with 2D and M-mode performed. QUALITY: Technical quality was limited. LEFT VENTRICLE: Normal chamber size. Thickened posterior wall. Systolic function is normal. LV EF: Visual estimation of left ventricular ejection fraction is 55%. DIASTOLIC: ATRIAL SEPTUM: LEFT ATRIUM: Moderate dilatation. RIGHT ATRIUM: Mild dilatation. RIGHT VENTRICLE: Normal chamber size. Normal right ventricular systolic function. TRICUSPID VALVE: Normal mobility and thickness. MITRAL VALVE: Mildly thickened with normal mobility. Mild mitral annular calcification. AORTIC VALVE: Not well visualized. AORTIC ROOT: Normal diameter and appearance. PULMONIC VALVE: Not well visualized. PERICARDIUM: Moderate mostly anterior pericardial effusion. Echogenic material is seen within the effusion overlying the right ventricular free wall likely represented clotted or fibrinous material. No significant respiratory changes with doppler through the Mitral and Tricuspid valves. No echocardiographic evidence of tamponade physiology. IVC: Collapses with inspiration. Normal size. PLEURA: CONCLUSION: 1. Normal ventricular systolic function. 2. Mild to moderate biatrial dilatation. 3. Moderate mostly anterior pericardial effusion. Echogenic material is seen within the effusion overlying the right ventricular free wall likely represented clotted or fibrinous material. No significant respiratory changes with doppler through the Mitral and Tricuspid valves. No echocardiographic evidence of tamponade physiology. 4. Limited study performed as requested. Adult Echocardiography Procedure Report Left Ventricle LVEDD (3.7 - 5.6 cm): 3.45 cm LVESD (2.2 - 4.0 cm): 2.63 cm LVIVS thickness (0.6 - 1.2 cm): 1.12 cm LVPW thickness (0.5 - 1.0 cm): 1.42 cm LVOT Diameter 2.03 cm Left Ventricular Ejection Fraction: 55 % Left Atrium Left Atrium Systolic Dimension: 3.80 cm Mitral Valve Right Ventricle RV Internal Diastolic Dimension: 2.58 cm Aorta AO Root Diam: 2.92 cm Aortic Valve Tricuspid Valve Pulmonic Valve Right Atrium Right Atrium Systolic Pressure: 42.30 ml, 42.30 ml Dictated by: Kyle Villalba M.D. on 01/09/2025 at 18:57 Approved by: Kyle Villalba M.D. on 01/09/2025 at 19:08
[2025-01-09] MEDS: POLYETHYLENE GLYCOL 3350 17 GM POWDER PACKET PO (14:47)
[2025-01-09] MEDS: HEPARIN SODIUM (PORCINE) 5,000 UNIT/ML VIAL 5000 UNIT SUBQ (17:15)
[2025-01-09] MEDS: BUDESONIDE 0.5 MG/2 ML AMPULE NEB IH (20:06)
--- NOTE | 2025-01-09 20:40 | PM.CACN ---
History of Present Illness History of Present Illness Consult date: 01/09/25 Requesting physician: Mandi Murillo Consult reason: congestive heart failure and shortness of breath Chief complaint: SOB, SHORTNESS OF BREATH, COPD Narrative: This is a 84-year-old woman with prior reported medical history of coronary artery disease, chronic diastolic heart failure and COPD admitted transferred from her PCPs office for worsening shortness of breath and weight gain over the past several weeks. She reportedly has been gained 15 pounds recently and more than that in the past few months. Currently she denies chest pain. She has no palpitations. She does have bilateral lower extremity edema. She has shortness of breath with exertion NYHA class III symptoms. Cardiogram performed today showed normal ventricular systolic function with moderate anterior pericardial effusion with evidence of layering thrombus overlaying the right ventricular free wall. There was no evidence of tamponade physiology by echocardiography. Today is in the presence of her sons who tell me that the current condition is not different from her usual state of health. So far review of her blood testing shows normal high-sensitivity troponin, normal renal function, NT proBNP 366. Hemoglobin normal. She shows sinus rhythm without acute changes. Review of Systems ROS Status of ROS 10 or more systems reviewed and unremarkable except as noted in history and below Cardiovascular Reports: edema; Denies: chest pain Respiratory Reports: shortness of breath [facility] Medical History (Updated 01/09/25 @ 20:48 by EMILY CHING) Nausea & vomiting ?R11.2 - Nausea with vomiting, unspecified (ICD-10) Constipation by delayed colonic transit ?K59.01 - Slow transit constipation (ICD-10) Generalized weakness ?R53.1 - Weakness (ICD-10) Pneumonia ?J18.9 - Pneumonia, unspecified organism (ICD-10) CAD (coronary artery disease) ?I25.10 - Atherosclerotic heart disease of [place] coronary artery without angina pectoris (ICD-10) Type 2 diabetes mellitus with hyperglycemia ?E11.65 - Type 2 diabetes mellitus with hyperglycemia (ICD-10) Degenerative lumbar spinal stenosis ?M48.061 - Spinal stenosis, lumbar region without neurogenic claudication (ICD-10) Chronic heart failure with preserved ejection fraction (HFpEF) ?I50.32 - Chronic diastolic (congestive) heart failure (ICD-10) HTN (hypertension) ?I10 - Essential (primary) hypertension (ICD-10) COPD (chronic obstructive pulmonary disease) ?J44.9 - Chronic obstructive pulmonary disease, unspecified (ICD-10) Primary osteoarthritis of right hip ?M16.11 - Unilateral primary osteoarthritis, right hip (ICD-10) Abdominal bloating ?R14.0 - Abdominal distension (gaseous) (ICD-10) Anxiety ?F41.9 - Anxiety disorder, unspecified (ICD-10) COPD exacerbation ?J44.1 - Chronic obstructive pulmonary disease with (acute) exacerbation (ICD-10) Acute costochondritis ?M94.0 - Chondrocostal junction syndrome [[place]] (ICD-10) Fall ?W19.XXXA - Unspecified fall, initial encounter (ICD-10) Contusion of rib on right side ?S20.211A - Contusion of right front wall of thorax, initial encounter (ICD-10) Contusion of knee, left ?S80.02XA - Contusion of left knee, initial encounter (ICD-10) Constipation ?K59.00 - Constipation, unspecified (ICD-10) Chest wall pain ?R07.89 - Other chest pain (ICD-10) Abdominal pain ?R10.9 - Unspecified abdominal pain (ICD-10) No problem, feared complaint unfounded ?Z71.1 - Person with feared health complaint in whom no diagnosis is made (ICD-10) Grief reaction ?F43.21 - Adjustment disorder with depressed mood (ICD-10) Dehydration ?E86.0 - Dehydration (ICD-10) Head injury ?S09.90XA - Unspecified injury of head, initial encounter (ICD-10) COPD exacerbation ?J44.1 - Chronic obstructive pulmonary disease with (acute) exacerbation (ICD-10) Nausea ?R11.0 - Nausea (ICD-10) Hypothyroidism ?E03.9 - Hypothyroidism, unspecified (ICD-10) HLD (hyperlipidemia) ?E78.5 - Hyperlipidemia, unspecified (ICD-10) Insufficient home care support ?Z74.2 - Need for assistance at home and no other household member able to render care (ICD-10) Muscular deconditioning ?R29.898 - Other symptoms and signs involving the musculoskeletal system (ICD-10) CHF (congestive heart failure) ?I50.9 - Heart failure, unspecified (ICD-10) Surgical History H/O hysterectomy for benign disease ?Z90.710 - Acquired absence of both cervix and uterus (ICD-10) Previous back surgery ?Z98.890 - Other specified postprocedural states (ICD-10) H/O hernia repair ?Z98.890 - Other specified postprocedural states (ICD-10) ?Z87.19 - Personal history of other diseases of the digestive system (ICD-10) Family History Mother Family history of cancer Sister Family history of diabetes mellitus Social History Within the past year, how often did you have a drink containing alcohol: never Score interpretation: A score less than 3 is consistent with normal alcohol consumption. 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 Known occupational exposures/hazards: No Highest level of school completed/degree received: 7th grade In a typical week, how many times do you talk on the telephone with family, friends, or neighbors: twice per week How often do you get together with friends or relatives: twice per week How often do you attend uatsdin or scientology services: never Little interest or pleasure in doing things: more than half the days Feeling down, depressed, or hopeless: nearly every day Feel stressed/tense/nervous/anxious/difficulty sleeping: not at all Meds Home Medications and Allergies Home Medications ?Medication ?Instructions ?Recorded ?Confirmed ?Type alprazolam 0.25 mg tablet 0.25 mg PO TID PRN anxiety 08/02/23 01/09/25 History aspirin 81 mg chewable tablet 81 mg PO DAILY 08/02/23 01/09/25 History ([place] Chewable Low Dose Aspirin) carvedilol 12.5 mg tablet 12.5 mg PO Q12H 08/02/23 01/09/25 History duloxetine 60 mg capsule,delayed 60 mg PO DAILY 08/02/23 01/09/25 History release gabapentin 100 mg capsule 200 mg PO Q12H 08/02/23 01/09/25 History loratadine 10 mg tablet 10 mg PO Q24H 08/02/23 01/09/25 History hydrocodone 7.5 mg-acetaminophen 1 tab PO Q6H PRN severe pain 08/03/23 01/09/25 History 325 mg tablet (scale score 7-10) levothyroxine 100 mcg tablet 100 mcg PO DAILY 08/03/23 01/09/25 History lisinopril 5 mg tablet 5 mg PO DAILY 08/13/24 01/09/25 History fluticasone fur. 100 mcg-umeclid 1 inh inhalation Q24H 09/22/24 01/09/25 History 62.5 mcg-vilant 25 mcg inhalat.powder (Trelegy Ellipta) famotidine 20 mg tablet 20 mg PO DAILY 09/30/24 01/09/25 History hyoscyamine sulfate 0.125 mg 0.125 mg sublingual Q4H PRN 10/04/24 01/09/25 Rx sublingual tablet Cramping #30 tabs polyethylene glycol 3350 17 gram 17 g PO QD #30 ea 10/04/24 01/09/25 Rx oral powder packet atorvastatin 40 mg tablet 40 mg PO DAILY 01/09/25 01/09/25 History memantine 10 mg tablet 10 mg PO BID 01/09/25 01/09/25 History omeprazole 20 mg capsule,delayed 20 mg PO DAILY 01/09/25 01/09/25 History release omeprazole 40 mg capsule,delayed 40 mg PO .qd 01/09/25 01/09/25 History release torsemide 10 mg tablet 10 mg PO DAILY 01/09/25 01/09/25 History Allergies Allergy/AdvReac Type Severity Reaction Status Date / Time rofecoxib (From Vioxx) Allergy Severe Unknown Verified 08/13/24 14:24 naproxen (From Aleve) Allergy Intermediate Unknown Verified 08/13/24 14:24 Exam Constitutional Vital Signs, click to edit/add: Last Vital Signs Temp 97.5 F L 01/09/25 19:30 Pulse 77 01/09/25 20:00 Resp 24 H 01/09/25 19:30 BP 166/72 H 01/09/25 19:30 Pulse Ox 99 01/09/25 20:00 O2 Del Method Room Air 01/09/25 19:30 Common normals: oriented x3 General appearance: cooperative and ill appearing Nutritional appearance: obese Orientation/consciousness: Yes oriented to person, Yes oriented to place and Yes oriented to time HENMT Common normals: normocephalic Chest Common normals: inspection of chest normal Respiratory Common normals: clear to auscultation bilaterally Auscultation: diminished lung sounds Cardio Common normals: regular rate, regular rhythm and no murmurs; JVD Extremity General: edema Neuro Common normals: moves all extremities, no focal motor deficits and no sensory deficits noted Psych Attention/concentration: attention grossly intact Memory/cognition: memory grossly intact Insight: insight good Results Labs and Meds Lab results: Cardiac Enzymes 01/09/25 Range/Units 11:08 AST 17 (15-37) U/L Coagulation 01/09/25 Range/Units 11:08 PT 10.6 (9.0-11.6) sec CBC 01/09/25 Range/Units 11:08 WBC 7.9 (4.0-11.0) 10^3/uL RBC 3.95 L (4.20-5.40) 10^6/uL Hgb 12.1 (12.0-16.0) g/dL Hct 37.4 (36.0-48.0) % Plt Count 171 (150-450) 10^3/uL Neut # (Auto) 5.1 (1.4-6.5) 10^3/uL Lymph # (Auto) 2.0 (1.2-3.8) 10^3/uL [place] # (Auto) 0.6 (0.3-0.8) 10^3/uL Eos # (Auto) 0.1 (0.0-0.7) 10^3/uL Baso # (Auto) 0.1 (0.0-0.1) 10^3/uL Comprehensive Metabolic Panel 01/09/25 Range/Units 11:08 Sodium 140 (136-145) mmol/L Potassium 4.2 (3.5-5.1) mmol/L Chloride 104 (98-107) mmol/L Carbon Dioxide 27.8 (21.0-32.0) mmol/L BUN 14.0 (7.0-18.0) mg/dL Creatinine 0.75 (0.55-1.02) mg/dL Glucose 103 (74-106) mg/dL Calcium 9.3 (8.5-10.1) mg/dL AST 17 (15-37) U/L ALT 18 (14-59) U/L Alkaline Phosphatase 93 (46-116) U/L Total Protein 6.4 (6.4-8.2) g/dL Albumin 3.1 L (3.4-5.0) g/dL Intake and Output 01/09/25 01/09/25 01/09/25 07:59 15:59 23:59 Output Total 850 / 1500 650 / 1500 Balance -850 / -1500 -650 / -1500 Output: Urine 850 / 1500 650 / 1500 Other: # Bowel Movements 1 Weight 99 kg Patient Weight 01/10/25 07:59 Weight 99 kg Assessment and Plan Assessment and Plan (1) CHF exacerbation: Qualifiers: Heart failure type: diastolic Qualified Code(s): I50.33 - Acute on chronic diastolic (congestive) heart failure (2) Pericardial effusion: (3) Essential hypertension: (4) COPD exacerbation: Plan It appears that she has acute on chronic diastolic heart failure as evidenced by her symptoms of shortness of breath, lower extremity edema and weight gain. I agree with current plan for diuretic therapy with furosemide 40 mg twice daily with close monitoring of her renal function and electrolytes. Her blood pressure is not controlled and should improve with diuretic therapy and decongestion. However if need be lisinopril can be increased to 10 mg daily. Her pericardial effusion is mostly in the anterior location. There is no signs of tamponade physiology by echocardiography. Her elevated blood pressure goes against evidence of tamponade. I do recommend repeating an echocardiogram in 2 days to follow-up on the effusion.
[2025-01-09] MEDS: HYOSCYAMINE SULFATE 0.125 MG TAB.SUBL SL (21:00)
[2025-01-09] MEDS: GABAPENTIN 100 MG CAPSULE 200 MG PO (21:00)
[2025-01-09] MEDS: ALPRAZOLAM 0.25 MG TABLET PO (21:00)
[2025-01-09] MEDS: CARVEDILOL 12.5 MG TABLET PO (21:00)
[2025-01-10] VITALS (22 sets, daily range): BP systolic 115–143; BP diastolic 55–83; PULSE 60–96; TEMP 36.4–36.7; O2SAT 94–100
[2025-01-10] MEDS: IPRATROPIUM/ALBUTEROL SULFATE 3 ML AMPUL.NEB IH ×6 (03:46→23:12)
[2025-01-10] MEDS: PANTOPRAZOLE SODIUM 40 MG TABLET.DR 20 MG PO (05:33)
[2025-01-10] MEDS: HEPARIN SODIUM (PORCINE) 5,000 UNIT/ML VIAL 5000 UNIT SUBQ ×2 (05:33→18:35)
[2025-01-10] MEDS: LEVOTHYROXINE SODIUM 100 MCG TABLET PO (05:33)
[2025-01-10 06:14] LABS: Hematocrit 40.7 % (36.0-48.0); Hemoglobin 13.3 g/dL (12.0-16.0); Immature Granulocytes Abs Auto 0.03 10^3/uL (0.00-0.03); Immature Granulocytes Pct Auto 0.4 % (0.0-0.5); Lymphocytes Absolute Auto 1.0 10^3/uL (1.2-3.8); Mean Corpuscular HGB Conc 32.7 g/dL (29.9-35.2); Mean Corpuscular Hemoglobin 30.5 pg (26.7-34.0); Mean Corpuscular Volume 93.3 fL (81.0-99.0); Platelet Count 159 10^3/uL (150-450); Red Blood Count 4.36 10^6/uL (4.20-5.40); White Blood Count 7.1 10^3/uL (4.0-11.0)
[2025-01-10 07:05] LABS: Alanine Aminotransferase 17 U/L (14-59); Albumin Globulin Ratio 0.9; Albumin Level 3.2 g/dL (3.4-5.0); Alkaline Phosphatase 97 U/L (46-116); Anion Gap 14.4; Aspartate Amino Transferase 18 U/L (15-37); Blood Urea Nitrogen 18.0 mg/dL (7.0-18.0); Calcium 9.4 mg/dL (8.5-10.1); Carbon Dioxide 29.0 mmol/L (21.0-32.0); Chloride 103 mmol/L (98-107); Estimated GFR (African America >60 (>=60 mL/min/1.73m^2); Estimated GFR (Non-African Ame >60 (>=60 mL/min/1.73m^2); Globulin 3.5 g/dL; Glucose 153 mg/dL (74-106); Magnesium 2.2 mg/dL (1.8-2.4); Potassium 3.4 mmol/L (3.5-5.1); Sodium 143 mmol/L (136-145); Total Protein 6.7 g/dL (6.4-8.2)
[2025-01-10] MEDS: BUDESONIDE 0.5 MG/2 ML AMPULE NEB IH ×2 (07:25→23:12)
[2025-01-10] MEDS: ASPIRIN 81 MG TAB.CHEW PO (08:30)
[2025-01-10] MEDS: CETIRIZINE HCL 10 MG TABLET PO (08:30)
[2025-01-10] MEDS: FAMOTIDINE 20 MG TABLET PO (08:30)
[2025-01-10] MEDS: GABAPENTIN 100 MG CAPSULE 200 MG PO ×2 (08:30→21:22)
[2025-01-10] MEDS: CARVEDILOL 12.5 MG TABLET PO ×2 (08:30→21:22)
[2025-01-10] MEDS: LISINOPRIL 5 MG TABLET PO (08:30)
[2025-01-10] MEDS: MEMANTINE HCL 28 MG CAP XR PO (08:30)
[2025-01-10] MEDS: ATORVASTATIN CALCIUM 40 MG TABLET PO (08:30)
[2025-01-10] MEDS: ALPRAZOLAM 0.25 MG TABLET PO (08:34)
--- NOTE | 2025-01-10 09:05 | CM.NOTE ---
Rounds made with Dr. Murillo, cardiology has been consulted for further recommendation. Discussed with pt plan of care and results of labs and testing. No discharge today.
[2025-01-10] MEDS: POTASSIUM CHLORIDE 10 MEQ ER TABLET 20 MEQ PO (09:21)
[2025-01-10] MEDS: METHYLPREDNISOLONE SOD SUCC PF 40 MG/ML VIAL IVP ×2 (09:21→21:22)
--- NOTE | 2025-01-10 09:57 | SWNOTE1 ---
SW met with pt to discuss dc needs. Pt lives at home with her son and daughter in law. A family is with pt at home 12/01. Pt does use a walker at home. They live in a mobile home and pt walks the length of the mobile home. Pt's son did ask SW about home health services. Pt has had HH in past, son unsure of company. He voiced they were very nice and he is alright with using them again. SW did let him know that OT did recommend HH and SW is able to get that set up for her. SW to look at previous stay notes to see what HH company we set pt up with in past. Pt's son also voiced that him and his are looking to set up meals on wheels for pt as well. SW offered to reach out to meals on wheels and get the process started as well. SW also offered to provide phone number. They live in [facility]. SW to provide pt's son with phone number and will call as well. No further questions or concerns at this time. SW to follow as needed. Referral sent to [address] Referral included face sheet, ED note, provider notes, case management report, and OT note.
[2025-01-10] MEDS: PNEUMOC 20-VAL CONJ-DIP CRM/PF 0.5 ML SYRINGE IM (10:04)
--- NOTE | 2025-01-10 10:30 | SWNOTE1 ---
SW received a call from [address] and they are not able to accept due to being maxed out on that payer. Referral sent to [facility]. Referral included face sheet, ED note, provider notes, case management report, and OT notes.
--- NOTE | 2025-01-10 11:04 | PM.PN ---
Progress Note: Subjective Subjective Interval history: Patient seen and examined at bedside. She is still at baseline respiratory status. Her son was at bedside reiterated to me that this is how she is at home. No fever no chills. Labs are unremarkable. Patient well with IV diuresis, urine output of 1.17 mL/kg/h which is very satisfactory. Exam Narrative Exam Narrative: GENERAL: Obese elderly female, not in acute distress, frail and fragile, ill appearing NEURO: Alert and oriented. Moves all extremities EYES: PERRL. No scleral icterus or conjunctival injection. No discharge. HENT: Normocephalic, atraumatic. Hearing is grossly intact. Nares grossly patent and without discharge. Mucous membranes moist. NECK: No JVD. Patient moves neck without restriction. No lymphadenopathy no thyromegaly CARDIO: Rhythm regular. Normal rate. No murmur, rub, or gallop. Pulses equal bilaterally in the upper and lower extremity. No lower extremity edema. PULM: Diminished at the bases bilaterally. Some trace wheezes and rales. She is at baseline respiratory status not able to speak in full sentences and does have increased work of breathing. No use accessory muscles no use of abdominal muscles. Saturating on 9% on room air GI/: Abdomen is soft and non-tender. Normoactive bowel sounds. EXTREMITIES: Symmetric muscle bulk. No joint swelling. No clubbing, cyanosis, or deformity. Patient had bilateral 2+ nonpitting edema. Intact peripheral pulses bilaterally Compared to yesterday, physical exam appears very similar Constitutional Vital Signs, click to edit/add: Last Vital Signs Temp 97.6 F 01/10/25 07:26 Pulse 96 H 01/10/25 10:00 Resp 22 H 01/10/25 07:52 BP 142/55 H 01/10/25 07:26 Pulse Ox 98 01/10/25 07:26 O2 Del Method Nasal Cannula 01/10/25 07:26 O2 Flow Rate 1 01/10/25 07:26 Progress Note: Objective Labs Labs: Short CBC 01/09/25 01/10/25 Range/Units 11:08 05:34 WBC 7.9 7.1 (4.0-11.0) 10^3/uL Hgb 12.1 13.3 (12.0-16.0) g/dL Hct 37.4 40.7 (36.0-48.0) % Plt Count 171 159 (150-450) 10^3/uL BMP 01/09/25 01/10/25 11:08 05:34 Sodium 140 143 Potassium 4.2 3.4 L Chloride 104 103 Carbon Dioxide 27.8 29.0 BUN 14.0 18.0 Creatinine 0.75 0.74 Glucose 103 153 H Calcium 9.3 9.4 Liver Function 01/09/25 01/10/25 Range/Units 11:08 05:34 Total Bilirubin 0.7 0.5 (0.2-1.0) mg/dL AST 17 18 (15-37) U/L ALT 18 17 (14-59) U/L Alkaline Phosphatase 93 97 (46-116) U/L Albumin 3.1 L 3.2 L (3.4-5.0) g/dL Progress Note: A&P Assessment and Plan (1) CHF exacerbation: Qualifiers: Heart failure type: diastolic Qualified Code(s): I50.33 - Acute on chronic diastolic (congestive) heart failure (2) Pericardial effusion: (3) Essential hypertension: (4) COPD exacerbation: Plan Diastolic CHF exacerbation COPD exacerbation - Admit patient to medical floor with telemetry - Start IV Lasix 40 mg twice daily - Start DuoNeb every 4 hours - Start methylprednisolone IV 40 mg every 12 hours - Continue patient's home Trelegy - Strict I's and O's - Daily weight - Obtain repeat echo to assess for her pericardial effusion as well as her systolic function, it would be limited - Obtain cardiology consult - Obtain PT/OT evaluation - I discussed the goals of care with the patient and her [id number], she opted for DNR CCA without intubation which I will put in the chart answer all the question 01/10/2025 I appreciate cardiology recommendations, will continue with IV diuresis as well as treating her with COPD exacerbation with IV steroids as well as DuoNebs. She is responding well to IV diuresis. Echo was reviewed with cardiology, recommended repeating the echo in 2 days to follow-up on the effusion. Will closely monitor renal function electrolytes while on IV diuresis. I gave her potassium to replete her hypokalemia this morning. Patient was seen by PT/OT recommended home with home health. I discussed the plan with her and her son. Answered all her questions Urinary Catheter Management Urinary Catheter Management Pure Wick: Cath placed during this visit: yes Urethral indwelling: No Insertion date: 01/10/25
--- NOTE | 2025-01-10 11:17 | SWNOTE1 ---
DEVEN received a message from Kimberly at [facility] and they are able to accept. DEVEN updated nurse.
[2025-01-10] MEDS: FUROSEMIDE 40 MG/4 ML VIAL IVP ×2 (11:49→21:22)
[2025-01-10] MEDS: ONDANSETRON 4 MG RAPDIS TABLET PO (12:59)
--- NOTE | 2025-01-10 15:22 | SWNOTE1 ---
Important Message from [employer] discussed with patient. Pt's son verbalized understanding and signed paper. Copy placed in chart and original given to pt.
[2025-01-10] MEDS: ALPRAZOLAM 0.25 MG TABLET 0.5 MG PO ×2 (15:58→23:11)
[2025-01-11] VITALS (13 sets, daily range): BP systolic 124–138; BP diastolic 74–81; PULSE 59–77; TEMP 36.3–36.5; O2SAT 92–99
[2025-01-11] MEDS: IPRATROPIUM/ALBUTEROL SULFATE 3 ML AMPUL.NEB IH ×3 (03:58→11:38)
[2025-01-11 05:37] LABS: Hematocrit 38.5 % (36.0-48.0); Hemoglobin 12.6 g/dL (12.0-16.0); Immature Granulocytes Abs Auto 0.05 10^3/uL (0.00-0.03); Immature Granulocytes Pct Auto 0.5 % (0.0-0.5); Lymphocytes Absolute Auto 0.8 10^3/uL (1.2-3.8); Mean Corpuscular HGB Conc 32.7 g/dL (29.9-35.2); Mean Corpuscular Hemoglobin 30.4 pg (26.7-34.0); Mean Corpuscular Volume 92.8 fL (81.0-99.0); Platelet Count 142 10^3/uL (150-450); Red Blood Count 4.15 10^6/uL (4.20-5.40); White Blood Count 9.1 10^3/uL (4.0-11.0)
[2025-01-11] MEDS: HEPARIN SODIUM (PORCINE) 5,000 UNIT/ML VIAL 5000 UNIT SUBQ (05:42)
[2025-01-11] MEDS: PANTOPRAZOLE SODIUM 40 MG TABLET.DR 20 MG PO (05:42)
[2025-01-11] MEDS: LEVOTHYROXINE SODIUM 100 MCG TABLET PO (05:42)
[2025-01-11 06:23] LABS: Alanine Aminotransferase 18 U/L (14-59); Albumin Globulin Ratio 1.0; Albumin Level 3.1 g/dL (3.4-5.0); Alkaline Phosphatase 84 U/L (46-116); Anion Gap 14.1; Aspartate Amino Transferase 21 U/L (15-37); Blood Urea Nitrogen 27.0 mg/dL (7.0-18.0); Calcium 9.0 mg/dL (8.5-10.1); Carbon Dioxide 26.5 mmol/L (21.0-32.0); Chloride 104 mmol/L (98-107); Estimated GFR (African America >60 (>=60 mL/min/1.73m^2); Estimated GFR (Non-African Ame >60 (>=60 mL/min/1.73m^2); Globulin 3.2 g/dL; Glucose 164 mg/dL (74-106); Magnesium 2.3 mg/dL (1.8-2.4); Potassium 3.6 mmol/L (3.5-5.1); Sodium 141 mmol/L (136-145); Total Protein 6.3 g/dL (6.4-8.2)
--- NOTE | 2025-01-11 08:00 | CA_ITS ---
Patient Name: ELGIN NORWOOD MR#: [id number] : 1940 Exam Date: 01/11/2025 Ordering Doctor: DR EMILY CHING M.D. ECHOCARDIOGRAM REPORT PROCEDURE: CA ECHO LIMITED INDICATIONS: Dyspnea at rest, Weight Gain, pericardial effusion COMPARISON: None. DESCRIPTION: Limited ECHOCARDIOGRAM Real-time transthoracic echocardiography with 2D and M-mode performed. QUALITY: Technical quality was good. Limited echocardiogram per physician order. LEFT VENTRICLE: Normal chamber size. Borderline left ventricular hypertrophy. LV EF: Normal left ventricular ejection fraction, (>55%). DIASTOLIC: ATRIAL SEPTUM: LEFT ATRIUM: Normal chamber size. RIGHT ATRIUM: Normal chamber size. RIGHT VENTRICLE: Normal chamber size. Normal systolic function. TRICUSPID VALVE: Normal mobility and thickness. MITRAL VALVE: Mildly thickened with normal mobility. Mild mitral annular calcification. AORTIC VALVE: Not well visualized. AORTIC ROOT: Normal diameter and appearance. PULMONIC VALVE: Not well visualized. PERICARDIUM: Moderate posterior and mild anterior pericardial effusion with echogenic material suggestive of clotted or fibrin laden effusion layering the right ventricular free wall. No evidence of tamponade physiology by echocardiographic criteria. IVC: Collapses with inspiration. IVC is dilated (2.3 cm) PLEURA: CONCLUSION: 1. Normal left ventricular size and systolic function. LVEF is estimated at 60%. 2. Normal right ventricular size and systolic function. 3. Moderate posterior and mild anterior pericardial effusion with echogenic material suggestive of clotted or fibrin laden effusion layering the right ventricular free wall. No evidence of tamponade physiology by echocardiographic criteria. 4. A follow-up echocardiogram in 1 week is recommended. Adult Echocardiography Procedure Report Left Ventricle LVEDD (3.7 - 5.6 cm): 4.13 cm LVESD (2.2 - 4.0 cm): 3.04 cm LVIVS thickness (0.6 - 1.2 cm): 1.05 cm LVPW thickness (0.5 - 1.0 cm): 1.03 cm LVOT Diameter 2.11 cm Left Ventricular Ejection Fraction: 60 % Left Atrium LA Volume Index (2D A2C): 33.18 ml/m2 Left Atrium Systolic Dimension: 3.38 cm Mitral Valve Right Ventricle Aorta AO Root Diam: 3.13 cm Aortic Valve Tricuspid Valve Pulmonic Valve Right Atrium Right Atrium Systolic Pressure: 45.74 ml, 45.74 ml Dictated by: Emily Ching M.D. on 01/11/2025 at 13:30 Approved by: Emily Ching M.D. on 01/11/2025 at 13:33
--- NOTE | 2025-01-11 09:15 | CM.NOTE ---
Rounds made with Dr. Murillo, pt will have repeat echo for evaluation of pericardial effusions. Possible discharge after echo read by dive superintendent. Pt will discharge with Josh and f/u with [facility] cardiology and Dr. Landers.
[2025-01-11] MEDS: MEMANTINE HCL 28 MG CAP XR PO (09:25)
[2025-01-11] MEDS: FAMOTIDINE 20 MG TABLET PO (09:25)
[2025-01-11] MEDS: GABAPENTIN 100 MG CAPSULE 200 MG PO (09:25)
[2025-01-11] MEDS: ASPIRIN 81 MG TAB.CHEW PO (09:25)
[2025-01-11] MEDS: CETIRIZINE HCL 10 MG TABLET PO (09:26)
[2025-01-11] MEDS: CARVEDILOL 12.5 MG TABLET PO (09:26)
[2025-01-11] MEDS: ATORVASTATIN CALCIUM 40 MG TABLET PO (09:26)
[2025-01-11] MEDS: LISINOPRIL 10 MG TABLET PO (09:26)
[2025-01-11] MEDS: ALPRAZOLAM 0.25 MG TABLET 0.5 MG PO ×2 (09:27→15:02)
[2025-01-11] MEDS: METHYLPREDNISOLONE SOD SUCC PF 40 MG/ML VIAL IVP (09:30)
[2025-01-11] MEDS: FUROSEMIDE 40 MG/4 ML VIAL IVP (09:30)
--- NOTE | 2025-01-11 10:02 | P.DS_ITS ---
DS: Providers Provider Date of admission: 01/09/25 13:51 Primary care physician: MK LANDERS Consults: 01/09/25 13:50 Consult to Cardiology Routine Reason for consultation: CHF exacerbation 01/09/25 13:55 Occupational Therapy Eval and Treat Routine Reason for consultation: may need higher level of care Physical Therapy Eval and Treat Routine Reason for consultation: may need higher level of care Discharging clinician: Mandi Murillo Anticipated date of discharge: 01/11/25 DS: Diagnosis Discharge Diagnosis (1) CHF exacerbation: Qualifiers: Heart failure type: diastolic Qualified Code(s): I50.33 - Acute on chronic diastolic (congestive) heart failure (2) Pericardial effusion: (3) Essential hypertension: (4) COPD exacerbation: DS: Summary Hospital Course Hospital Course: This is a 84-year-old female with past medical of CAD, type 2 diabetes, degenerative lumbar spinal stenosis, hypertension, COPD, osteoarthritis of the right hip, anxiety, hypothyroidism, dyslipidemia, debility, CHF, obesity, constipation and generalized weakness who presents today after she was seen at her primary care office for concern for fluid overload. Patient was in the room with her [id number]. She appears anxious and she was tachypneic and not able to speak in full sentence, her cazltdzg-[id number] states that this has been her baseline for years now. I was concerned initially but her daughter reassured me that this is how the patient looks for years. She states that she was at the regular visit to her PCP where she needed to get blood work so she was fasting, when her PCP examined her she stated that he was concerned about fluid overload and he wanted her to come to the hospital especially that she gained around 30 pounds since her last visit with the ROTARY DRILL RIG OPERATOR compared to the way that she got here at the PCP office. When I saw the patient, she denies any new shortness of breath or dyspnea on exertion. She walks with a walker at home lives with her son and [id number], denies any fever or chills or chest pain or nausea or vomiting or diaphoresis. Denies any dizziness or syncope. On exam there was some wheezing as per the ER staff. Labs were unremarkable including CBC and CMP as well as normal proBNP. Chest x-ray showed mild interstitial markings compatible with failure EKG x 1 showed normal sinus rhythm with a QTc of 403 ms. Patient see 1 dose of IV Lasix 40 mg as well as 1 dose of methylprednisolone 125 mg IV once. Also received 1 course of DuoNeb. When I saw her she was saturating 90% on room air patient to be admitted under hospitalist service for further workup and management. Of note, patient had an echo done back in May 2024 that showed normal left ventricular chamber size with borderline LVH. EF of 60% with no regional wall abnormalities. Normal right ventricular chamber size. Decreased right ventricular systolic function with small pericardial effusion and fibrinous appearance. No evidence of tamponade. Diastolic CHF exacerbation COPD exacerbation - Admit patient to medical floor with telemetry - Start IV Lasix 40 mg twice daily - Start DuoNeb every 4 hours - Start methylprednisolone IV 40 mg every 12 hours - Continue patient's home Trelegy - Strict I's and O's - Daily weight - Obtain repeat echo to assess for her pericardial effusion as well as her systolic function, it would be limited - Obtain cardiology consult - Obtain PT/OT evaluation - I discussed the goals of care with the patient and her asoxkoid-ed-ozu, she opted for DNR CCA without intubation which I will put in the chart answer all the question 01/10/2025 I appreciate cardiology recommendations, will continue with IV diuresis as well as treating her with COPD exacerbation with IV steroids as well as DuoNebs. She is responding well to IV diuresis. Echo was reviewed with cardiology, recommended repeating the echo in 2 days to follow-up on the effusion. Will closely monitor renal function electrolytes while on IV diuresis. I gave her potassium to replete her hypokalemia this morning. Patient was seen by PT/OT recommended home with home health. I discussed the plan with her and her son. Answered all her questions 01/11/2025 I increased her Xanax to get another additional 0.25 mg to her as needed 0.25 mg as needed for anxiety if it is not working. Seemed to help her as well. Her response to IV diuresis was great she seems to be euvolemic today and states that she is feeling better. I discussed the plan with the patient and her son in details including that she has to follow-up with her turbine subassembler and PCP as soon as possible. She will see her PCP in 2 days. Our hospital/arrange all those follow-up appointments. I also told her to come back to the ER if she develops shortness of breath or chest pain. I will send her home on steroid taper as well. Status at Discharge Overall status at discharge: patient is back to baseline Time Spent with Patient Time attestation: Total time spent providing and/or coordinating discharge services: Exam Narrative Exam Narrative: GENERAL: Obese elderly female, not in acute distress, frail and fragile, ill appearing NEURO: Alert and oriented. Moves all extremities EYES: PERRL. No scleral icterus or conjunctival injection. No discharge. HENT: Normocephalic, atraumatic. Hearing is grossly intact. Nares grossly patent and without discharge. Mucous membranes moist. NECK: No JVD. Patient moves neck without restriction. No lymphadenopathy no thyromegaly CARDIO: Rhythm regular. Normal rate. No murmur, rub, or gallop. Pulses equal bilaterally in the upper and lower extremity. No lower extremity edema. PULM: Diminished at the bases bilaterally. Some trace wheezes and rales. She is at baseline respiratory status not able to speak in full sentences and does have increased work of breathing. No use accessory muscles no use of abdominal muscles. Saturating on 9% on room air GI/: Abdomen is soft and non-tender. Normoactive bowel sounds. EXTREMITIES: Symmetric muscle bulk. No joint swelling. No clubbing, cyanosis, or deformity. Patient had bilateral 2+ nonpitting edema. Intact peripheral pulses bilaterally Constitutional Vital Signs, click to edit/add: Last Vital Signs Temp 97.7 F 01/11/25 07:32 Pulse 72 01/11/25 07:52 Resp 16 01/11/25 07:32 BP 136/81 01/11/25 07:32 Pulse Ox 96 01/11/25 07:52 O2 Del Method Room Air 01/11/25 07:52 O2 Flow Rate 1 01/10/25 07:26 DS: Data Data Completed and Pending Labs on day of discharge: Labs from last 24 hours 01/11/25 01/11/25 01/10/25 07:48 05:09 19:35 WBC 9.1 RBC 4.15 L Hgb 12.6 Hct 38.5 MCV 92.8 MCH 30.4 MCHC 32.7 RDW 13.7 Plt Count 142 L MPV 10.7 Neut % (Auto) 88.0 H Lymph % (Auto) 9.1 L Tucker % (Auto) 2.3 Eos % (Auto) 0.0 L Baso % (Auto) 0.1 L Neut # (Auto) 8.0 H Lymph # (Auto) 0.8 L Tucker # (Auto) 0.2 L Eos # (Auto) 0.0 Baso # (Auto) 0.0 Abs Immat Gran (auto) 0.05 H Imm/Tot Granulo (auto) 0.5 Sodium 141 Potassium 3.6 Chloride 104 Carbon Dioxide 26.5 Anion Gap 14.1 BUN 27.0 H Creatinine 0.83 Est GFR ( Amer) >60 Est GFR (Non-Af Amer) >60 BUN/Creatinine Ratio 32.5 Glucose 164 H Calcium 9.0 Magnesium 2.3 Total Bilirubin 0.6 AST 21 ALT 18 Alkaline Phosphatase 84 Total Protein 6.3 L Albumin 3.1 L Globulin 3.2 Albumin/Globulin Ratio 1.0 POC Glucose 130 H 138 H 01/10/25 01/10/25 16:33 11:45 WBC RBC Hgb Hct MCV MCH MCHC RDW Plt Count MPV Neut % (Auto) Lymph % (Auto) Tucker % (Auto) Eos % (Auto) Baso % (Auto) Neut # (Auto) Lymph # (Auto) Tucker # (Auto) Eos # (Auto) Baso # (Auto) Abs Immat Gran (auto) Imm/Tot Granulo (auto) Sodium Potassium Chloride Carbon Dioxide Anion Gap BUN Creatinine Est GFR ( Amer) Est GFR (Non-Af Amer) BUN/Creatinine Ratio Glucose Calcium Magnesium Total Bilirubin AST ALT Alkaline Phosphatase Total Protein Albumin Globulin Albumin/Globulin Ratio POC Glucose 166 H 127 H Discharge Plan Discharge Disposition: Home Health Service Discharge Medications: New prednisone 10 mg tablet See Rx Instructions .ROUTE .COMPLEX Qty: 21 0RF Rx Instructions: Take 4 tablets (total of 40 mg) daily for 3 days, followed by 2 tablets (total of 20 mg) daily for another 3 days, followed by 1 tablet (10 mg) daily for another 3 days Continued duloxetine 60 mg capsule,delayed release(DR/EC) 60 mg PO DAILY loratadine 10 mg tablet 10 mg PO Q24H aspirin [Dalton Chewable Aspirin] 81 mg tablet,chewable 81 mg PO DAILY carvedilol 12.5 mg tablet 12.5 mg PO Q12H gabapentin 100 mg capsule 200 mg PO Q12H levothyroxine 100 mcg tablet 100 mcg PO DAILY famotidine 20 mg tablet 20 mg PO DAILY polyethylene glycol 3350 17 gram Powder In Packet 17 g PO QD Qty: 30 0RF hyoscyamine sulfate 0.125 mg Tablet, Sublingual 0.125 mg sublingual Q4H PRN (Reason: Cramping) Qty: 30 0RF atorvastatin 40 mg tablet 40 mg PO DAILY omeprazole 40 mg capsule,delayed release(DR/EC) 40 mg PO .qd memantine 10 mg tablet 10 mg PO BID lisinopril 5 mg tablet 5 mg PO DAILY Trelegy Ellipta 100-62.5-25 mcg blister with device 1 inh INHALATION Q24H alprazolam 0.25 mg tablet 0.25 mg PO TID PRN (Reason: anxiety) Qty: 0 0RF Rx Instructions: If your anxiety is not relieved by your original 0.25 mg dose, Please take additional tablet (0.25 mg) to make it total of 0.5 mg every 8 hours as needed if your anxiety is not relieved by the original dose of 0.25 mg Changed torsemide 10 mg tablet 15 mg PO DAILY Qty: 0 0RF Held hydrocodone-acetaminophen 7.5-325 mg tablet 1 tab PO Q6H PRN (Reason: severe pain (scale score 7-10)) Hold Instructions: hold until you see your PCP Discontinued omeprazole 20 mg capsule,delayed release(DR/EC) 20 mg PO DAILY Print Language: Korean Patient Instructions: Heart Failure (DC), Heart Healthy Diet (DC) Activity Restrictions/Additional Instructions: If your anxiety is not controlled with 0.25 mg xanax that you take every 8 hours as needed, you can add additional 0.25 mg to this tablet so total of 0.5 mg (two tablets) every 8 hours as needed for anxiety. Please DO NOT TAKE MORE THAN 1 mg daily, until you see your primary care doctor Child Support Specialist/Power Equipment Mechanics Instructor Instructions: [employer], [facility], phone number [phone]. Forms: Portal Instructions Follow Up Appointments: Dr Landers December @11:30 # [phone] [facility] cardiology @ [facility] December @9:20 [phone]
--- NOTE | 2025-01-11 10:33 | CM.NOTE ---
Reached out to Cardiopulmonary for time of echo, no time provided outpatient echo's being done at this time. Updated that echo will need to be read by Supercalender Operator today prior to discharge. RN updated also regarding echo and read prior to pt's discharge.
--- NOTE | 2025-01-11 11:22 | PT.DAILY ---
Physical Therapy Daily Note PT Daily Note/Assess Start: 01/11/25 11:20 Freq: Status: Active Protocol: Document 01/11/25 11:20 JASS (Rec: 01/11/25 11:22 JASS [id number]) Physical Therapy Daily Note/Assessment Time In/Time Out Time In 10:30 Time Out 10:45 Pain In Pain N/A Pain Out Pain N/A Subjective Subjective Pt sitting in BS chair upon arrival .Agrees to PT. Feeling better today. Waiting on repeat Echo for DC. Therapeutic Exercise Time Therapeutic Exercise 4 Minutes (minutes) Therapeutic Exercise 0 Units Therapeutic Exercise Treatment Therapeutic Exercise Bilat LE strengthening ex complete in BS chair 10x to Treatment improve functional mobility prior to gait. Therapeutic Activity Time Therapeutic Activity 7 Minutes (minutes) Therapeutic Activity 1 Units Therapeutic Activity Treatment Chair Transfer Standby Assistance Ability Therapeutic Activity Sit>stand from BS chair to RW SBA. Pt amb 60' with RW, Comments CGA for safety. Moderate fatigue upon completion. Returned to BS chair with call light within reach and needs met. Total Physical Therapy Time Total Therapy 11 Minutes Total Physical 1 Therapy Units Summary Daily Note Summary Improved gait endurance on this date.
[2025-01-11] MEDS: BUDESONIDE 0.5 MG/2 ML AMPULE NEB IH (11:38)
--- NOTE | 2025-01-11 12:32 | CM.NOTE ---
Called [facility] cardiology clinic for read on echo that was completed today per request of Dr. Murillo.
--- NOTE | 2025-01-11 14:00 | CM.NOTE ---
Pt will need f/u echo in one week per Dr. Murillo. Outpatient order completed and given to patient. Pt verbalizes understanding. RN updated on discharge.
--- NOTE | 2025-01-11 15:24 | SWNOTE1 ---
CRF, dc summary, and dc med rec faxed to [facility].
--- NOTE | 2025-01-11 16:53 | NUTR.NU ---
Pt was admitted 01/09/25 w/dx CHF, COPD, OA. PO intakes of Heart Healthy diet are good and meet her estimated nutrient requirements. Pt has h/o DM2, diet-controlled, and self-limits CHO intakes. Encourage adequate intakes of high-quality PRO foods. Continue to follow PRN.
--- NOTE | 2025-01-12 10:46 | CM.DCFOLLOWU ---
Person spoke with:patient's son How are you feeling?well How is your pain?none Did you understand your discharge instructions?yes Do you have any questions about your discharge instructions?no Were you given any prescriptions at discharge?yes Were you able to get your prescriptions filled?yes Do you understand how to take your medications as ordered?yes Do you have any questions about your follow up appointment and do you plan to keep your follow up appointment?no questions, will follow up Is there anything else that you would like to discuss?no Questions/Comments/Concerns/Other:none
== END 2025-01-11 15:15 | disposition home health service (06) | DRG 291 ==
LOC: ER 10:46 → MS 13:55
PROVIDERS: Admitting Provider Student in an Organized Health Care Education/Training Program; Emergency Provider Student in an Organized Health Care Education/Training Program; PCP Internal Medicine; Visit Provider Student in an Organized Health Care Education/Training Program
DX: I11.0 Hypertensive heart disease with heart failure (principal); I50.33 Acute on chronic diastolic (congestive) heart failure; J44.1 Chronic obstructive pulmonary disease with (acute) exacerbation; I31.39 Other pericardial effusion (noninflammatory); E66.9 Obesity, unspecified; R54 Age-related physical debility; E87.6 Hypokalemia; I25.10 Atherosclerotic heart disease of native coronary artery without angina pectoris; E11.9 Type 2 diabetes mellitus without complications; M48.061 Spinal stenosis, lumbar region without neurogenic claudication; M16.11 Unilateral primary osteoarthritis, right hip; F41.9 Anxiety disorder, unspecified; E03.9 Hypothyroidism, unspecified; E78.5 Hyperlipidemia, unspecified; Z90.710 Acquired absence of both cervix and uterus; Z87.891 Personal history of nicotine dependence; Z79.890 Hormone replacement therapy; Z79.899 Other long term (current) drug therapy; Z79.82 Long term (current) use of aspirin; Z87.01 Personal history of pneumonia (recurrent); Z68.31 Body mass index [BMI] 31.0-31.9, adult
CPT/HCPCS: 36415; 71045; 80053; 82948; 83735; 83880; 84484; 85025; 85610; 90677; 93005; 93308; 94640; 94761; 96374; 96375; 97162; 97165; 97530; 97535; 99285; J1644; J1938; J2919; Q0162

== ENCOUNTER 2025-01-18 07:31 | Inpatient (IN) | payer MEDICARE, SELFPAY ==
--- OUTSIDE RECORDS SUMMARY | 2025-01-09 10:00 | XMS_ITS | Encounter Summary ---
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 Never 11/12/2022 Do you belong to any clubs o r organizations such as sikhism groups, unions, fraternal or athletic groups, or [...] Answer Date Recorded Patient Health Questionnaire-2 Score 2 01/09/2025 [facility] of Occupat ional Health - Occupational [...] place to sleep or slept in a long term (including now)? No 11/12/2022 Comments Unknown Sex and Gender Information Value Date Recorded Sex Assigned at Not on file Legal Sex Female 6:57 PM EDT Gender Identity Not on file Sexual Orientation Not on file documented as of this encounter Last Filed Vital Signs Vital Sign Reading Time Taken Comments Blood Pressure 100/62 01/09/2025 9:55 AM EDT Pulse 66 01/09/2025 9:55 AM EDT Temperature - - Respiratory Rate 17 01/09/2025 9:55 AM EDT Oxygen Saturation 99% 01/09/2025 9:55 AM EDT Inhaled Oxygen Concentration - - Weight 90.3 kg (199 lb) 01/09/2025 9:55 AM EDT Height 165.1 cm (5' 5 ) 01/09/2025 9:55 AM EDT Body Mass Index 33.12 01/09/2025 9:55 AM EDT documented in this encounter Functional Status * Over the past 2 weeks, how often have you been bothered by any of the following problems? Question Answer Date of Assessment Author Little interest or pleasure in doing things Several days 01/09/2025 9:48 AM EDT CHACHA ADDISON Feeling down, depressed, or hopeless Several days 12/21 9:48 AM EDT CHACHA ADDISON Patient Health Questionnaire-2 Score 2 12/21 9:48 AM EDT CHACHA ADDISON * If you checked off any problems on this questionnaire so far, Question Answer Date of Assessment Author How difficult have these problems made it for you to do your work, take care of things at home, or get along with other people? Somewhat difficult 01/09/2025 9:48 AM EDT CHACHA ADDISON documented as of this encounter Progress Notes * Yossi Landers MD - 01/09/2025 10:00 AM EDT Images from the original note were not included. Subjective Patient ID: Jaquelin Solis is a 84 y.o. female who presents for No chief complaint on file.. Jaquelin presents today for a follow for GERD and depression. She does say that she is light headed andshe feels very dizzy. This has been going on for the last few days. Over the past 2 weeks, how often have you been bothered by any of the following problems? Little interest or pleasure in doing things: Several days Feeling down, depressed, or hopeless: Several days Patient Health Questionnaire-2 Score: 2 If you checked off any problems on this questionnaire so far, How difficult have these problems made it for you to do your work, take care of things at home, or get along with other people?: Somewhat difficult Current Outpatient Medications on File Prior to Visit Medication Sig Dispense Refill albuterol (2.5 MG/3ML) 0.083% nebulizer solution Take 3 mL (2.5 mg) by nebulization every 8 (eight)hours if needed for wheezing or shortness of breath 150 mL 5 albuterol HFA (ProAir HFA) 90 mcg/act inhaler Inhale 2 puffs every 4 (four) hours if needed. ALPRAZolam (Xanax) 0.25 MG tablet Take 1 tablet (0.25 mg) by mouth 3 (three) times a day as needed for anxiety 90 tablet 0 aspirin 81 MG EC tablet Take 81 mg by mouth 1 (one) time each day at the same time. atorvastatin (Lipitor) 40 MG tablet TAKE 1 TABLET EVERY MORNING 90 tablet 3 Blood Glucose Monitoring Suppl (ONE TOUCH ULTRA 2) w/Device kit Inject under the skin 1 (one) time each day. calcium carbonate (Tums) 500 MG chewable tablet Chew 500 mg Daily carvedilol (Coreg) 12.5 MG tablet TAKE [...] BY MOUTH EVERY DAY 100 tablet 3 Yrseqhvwhmu-Vghybuymj-Ylzswa (Trelegy Ellipta) 100-62.5-25 MCG/ACT aerosol powder Inhale 1 puff Daily 3 each 3 gabapentin (Neurontin) 100 MG capsule Take 2 capsules (200 mg) by mouth in the morning and 2 capsules (200 mg) before bedtime. 360 capsule 3 glucose blood (True Metrix Blood Glucose Test) test strip 1 each by Other route 1 (one) time each day at the same time. [] HYDROcodone-acetaminophen (Victoria) 7.5-325 MG tablet Take 1 tablet by mouth every 6 (six) hours if needed for severe pain 120 tablet 0 Lancets (FilterEasyTouch Delica Plus [id number]) [facility] USE 1 LANCET TO TEST BLOOD SUGAR ONCE DAILY levothyroxine (Synthroid, Levoxyl) 100 MCG tablet TAKE 1 TABLET EVERY MORNING BEFORE A MEAL 90 tablet 3 lisinopril 5 MG tablet TAKE 1 TABLET EVERY MORNING 90 tablet 3 loratadine (Claritin) 10 MG tablet Take 1 tablet (10 mg) by mouth Daily 100 tablet 3 meclizine (Antivert) 12.5 MG tablet Take 12.5 mg by mouth 3 (three) times a day as needed for dizziness. memantine (Namenda Titration Pack) 28 x 5 MG & 21 x 10 MG tablet pack USE DIRECTED FOR FIRSTMON. 147 each 1 memantine (Namenda) 10 MG tablet Take 1 tablet (10 mg) by mouth in the morning and 1 tablet (10 mg)before bedtime. 60 tablet 5 Multiple Vitamins-Minerals (OCUVITE ADULT 50+ PO) Take by mouth 1 (one) time each day. nitroglycerin (Nitrostat) 0.[address] 0.4 mg under the tongue every 5 (five) minutes if needed. nystatin (Mycostatin) ointment every 12 (twelve) hours. omeprazole (PriLOSEC) [address] capsule TAKE 1 CAPSULE EVERY MORNING BEFORE A MEAL 90 capsule 3 polyethylene glycol, PEG, 3350 (Glycolax, Miralax) powder Take 17 g by mouth Daily as needed (constipation) torsemide (Demadex) 10 MG tablet Take 1 tablet (10 mg) by mouth Daily 90 tablet 3 [DISCONTINUED] ALPRAZolam (Xanax) 0.25 MG tablet Take 1 tablet (0.25 mg) by mouth 3 (three) times aday as needed for anxiety 90 tablet 1 [DISCONTINUED] atorvastatin (Lipitor) 40 MG tablet TAKE 1 TABLET EVERY MORNING 90 tablet 3 [DISCONTINUED] carvedilol (Coreg) 12.5 MG tablet TAKE 1 TABLET (12.5 MG) BY MOUTH IN THE MORNING AND 1 TABLET (12.5 MG) BEFORE BEDTIME. 180 tablet 3 [DISCONTINUED] DULoxetine (Cymbalta) [address] capsule TAKE 1 CAPSULE EVERY MORNING 90 capsule 3 [DISCONTINUED] levothyroxine (Synthroid, Levoxyl) 100 MCG tablet TAKE 1 TABLET (100 MCG) BY MOUTH IN THE MORNING. TAKE BEFORE MEALS. 90 tablet 3 [DISCONTINUED] lisinopril 5 MG tablet TAKE 1 TABLET EVERY MORNING 90 tablet 3 [DISCONTINUED] omeprazole (PriLOSEC) [address] capsule Take 1 capsule (40 mg) by mouth in the morning. Do not crush or chew.. No current facility-administered medications on file prior to visit. I have reviewed and reconciled the history and medication list with the patient today. Allergies Allergen Reactions Aleve [Naproxen] Swelling mario oral edema Benztropine Mesylate Hallucinations Benztropine Other Vioxx [Rofecoxib] Social History Tobacco Use Smoking status: Former Current packs/day: 0.00 Types: Cigarettes Quit date: 10/27/2012 Years since quittin.2 Smokeless tobacco: Never Vaping Use Vaping status: [...] of bladder Left thyroid nodule Morbid obesity ([facility]) 07/04/2019 Osteoarthrosis Peripheral vascular disease, unspecified Unspecified combined systolic (congestive) and diastolic (congestive) heart failure ([facility]) Past Surgical History: Procedure Laterality Date BACK SURGERY repair herniated disc COLONOSCOPY 2010 COLONOSCOPY W/ POLYPECTOMY 03/08/2024 EGD 02/03/2024 W/ Esophageal Dilation FLEXIBLE SIGMOIDOSCOPY 02/03/2024 FNA W IMAGING GUIDANCE thyroid 03/22/19, 07/08/21 HYSTERECTOMY OTHER SURGICAL HISTORY 01/15/2001 LT common iliac artery stent, Dr. Cortes OTHER SURGICAL HISTORY 09/22/2003 LT SFA stent, Dr. Cortes THYROID SURGERY partial thyroidectomy Visit Vitals Smoking Status Former Review of Systems Objective Physical Exam Constitutional: General: She is not in acute distress. Appearance: She is ill-appearing. Cardiovascular: Rate and Rhythm: Normal rate. Rhythm irregular. Heart sounds: No murmur heard. Comments: JVD to jawline Pulmonary: Effort: Accessory muscle usage and prolonged expiration present. Breath sounds: Decreased air movement present. Examination of the right-lower field reveals decreased breath sounds. Examination of the left-lower field reveals decreased breath sounds. Decreased breath sounds present. Musculoskeletal: Right lower leg: Edema present. Left lower leg: Edema present. Neurological: Mental Status: She is alert. Psychiatric: Mood and Affect: Mood normal. Thought Content: Thought content normal. Judgment: Judgment normal. 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 The ER was called with a report of patient's condition and history. Medical records will be sent as well. - Exam is c/w acute CHF Panlobular emphysema (HCC) Other specified hypotension Unspecified dementia, unspecified severity, without behavioral disturbance, psychotic disturbance, mood disturbance, and anxiety (HCC) No follow-ups on file. 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)- Primary Acute on chronic combined systolic and diastolic heart failure Panlobular emphysema (HCC) Other emphysema Other specified hypotension Unspecified dementia, unspecified severity, without behavioral disturbance, psychotic disturbance, mood disturbance, and anxiety (HCC) documented in this encounter Care Teams Scrummaster Relationship Specialty Start Date End Date Yossi Landers MD [address] [place] [address] PCP - General Internal Medicine 11/03/22 Yossi Landers MD [address] [place] [address] PCP - [employer] 11/20/22 Daniela Alvarado LPN [address] [place] [address] 09/09/24 documented as of this encounter
--- OUTSIDE RECORDS SUMMARY | 2025-01-16 11:30 | XMS_ITS | Encounter Summary ---
Author Organization [facility] Address [address] [place] [address] Care Team Providers Care Visual Merchandiser Name Role Phone Yossi Landers MD Primary Care Provider [phone] Yossi Landers MD Unavailable Daniela Alvarado LPN Unavailable Reason for Visit * Reason Comments Follow-up Admitted [facility] 01/09/25 dx:HTN, CHF exacerbation discharged home 01/11/25 has home health rx for prednisone given, torsemide increased to 15mg every dayFollow up with cardiology 01/18/25 discuss medication At hospital discharg e pt was advised not to take hydrocodone until she talks to pcpAlso was advised to change the dosing of xanax -if anxiety is not reduced with 0.25mg take an additional tablet for total of 0.5mg --take every 8 hours as needed recommendations for sodium Pt family won dering if she can have salt and if so how much-- also wondering if there are days she should hold her blood pressure meds if her blood pressure is low Encounter Details Date Type Department Care Team (Late st Contact Info) Description 01/16/2025 11:30 AM EDT Office Visit [facility] [place] [facility] [address] [facility] [address] [place] [id number] Yossi Landers MD 112 [facility] [address] [place], [place] [id number] Panlobular emphysema (HCC) (Primary Dx); Depression with anxiety; Acute on chronic diastolic congestive heart failure (HCC); Chronic combined systolic and diastolic congestive [...] How often do you attend chur or caodaism services? Never 11/12/2022 Do you [...] Date Recorded Patient Health Questionnaire-2 Score 2 01/16/2025 [facility] Occupat ional Health - [...] Sign Reading Time Taken Comments Blood Pressure - - Pulse 70 01/16/2025 11:29 AM EDT Temperature - - Respiratory Rate - - Oxygen Saturation 98% 01/16/2025 11:29 AM EDT Inhaled Oxygen Concentration - - Weight 83.9 kg (185 lb) 01/16/2025 11:29 AM EDT Height 165.1 cm (5' 5 ) 01/16/2025 11:29 AM EDT Body Mass Index 30.79 01/16/2025 11:29 AM EDT documented in this encounter Functional Status * Over the past 2 weeks, how often have you been bothered by any of the following problems? Question Answer Date of Assessment Author Little interest or pleasure in doing things Several days 01/16/2025 11:30 AM EDT Kimberly Sanchez L PN Feeling down, depressed, or hopeless Several days 01/16/2025 11:30 AM EDT Kimberly Sanchez L PN Patient Health Questionnaire-2 Score 2 01/16/2025 11:30 AM EDT Kimberly Sanchez LPN documented as of this encounter Progress Notes * Yossi Landers MD - 01/16/2025 11:30 AM EDT Images from the original note were not included. HPI Follow-up Additional comments: Admitted [facility] 01/09/25 dx:HTN, CHF exacerbation discharged home 01/11/25 has homehealth rx for prednisone given, torsemide increased to 15mg every day Follow up with cardiology 01/18/25 discuss medication Additional comments: At hospital discharge pt was advised not to take hydrocodone until she talks to pcp Also was advised to change the dosing of xanax -if anxiety is not reduced with 0.25mg take an additional tablet for total of 0.5mg --take every 8 hours as needed recommendations for sodium Additional comments: Pt family wondering if she can have salt and if so how much-- also wondering if there are days she should hold her blood pressure meds if her blood pressure is low Last edited by Kimberly Sanchez LPN on 01/16/2025 11:47 AM. Subjective Patient ID: Jaquelin Solis is a 84 y.o. female who presents for Follow-up (Admitted [facility] 01/09/25 dx:HTN, CHF exacerbation discharged home 01/11/25 has home health rx for prednisone given, torsemide increased to 15mg every day/Follow up with cardiology 01/18/25), discuss medication (At hospital dischargept was advised not to take hydrocodone until she talks to pcp//Also was advised to change the dosing of xanax -if anxiety is not reduced with 0.25mg take an additional tablet for total of 0.5mg --take every 8 hours as needed), and recommendations for sodium (Pt family wondering if she can have saltand if so how much-- also wondering if there are days she should hold her blood pressure meds if her blood pressure is low). Flowsheet Row Patient Outreach from 01/12/2025 in [facility] with Daniela Alvarado LPN Hospital Information ED, Hospital or Half-Way Facility Discharge? Hospital Patient has been contacted within two business days of discharge Yes Diagnosis CHF exacerbation: (2) Pericardial effusion: (3) Essential hypertension: (4) COPD exacerbation: Discharge Date 01/11/25 Discharged To: Home Setting Discharge Hospital [facility] Engagement Call Start Time 1059 Admission Date 01/09/25 Medications Discharge medications reviewed and reconciled from hospital? Yes Is the patient having any side effects they believe may be caused by any medication additions or changes? No Does the patient have all medications ordered at discharge? Yes Is the patient taking all medications as directed (includes completed medication regime)? Yes Appointments Does the patient have a primary care provider? Yes [01/16] Does the patient have any upcoming specialty appointments? Yes [Cardiology 01/18, Urogyn 01/30] Does patient have any post discharge follow up testing that needs to be completed? Other (specify) [ECHO in 1 week] Self Management Does patient have home health? yes Patient Teaching Does the patient have access to their discharge instructions? Yes What is the patient's perception of their health status since discharge? Improving Is the patient/caregiver able to teach back the hierarchy of who to call/visit for symptoms/problems? PCP, Specialist, Home Health nurse, Urgent Care, ED, 911 Yes Wrap Up Wrap Up Additional Comments Labs, ECHO, ECG .Labs were unremarkable including CBC and CMP as well as normal proBNP. Chest x-ray showed mild interstitial markings compatible with failure EKG x 1 showed normal sinus rhythm with a QTc of 403 ms per discahrge notes. Call End Time 1107 Pt still on prednisone Has appt for echo this week Over the past 2 weeks, how often have you been bothered by any of the following problems? Little interest or pleasure in doing things: Several days (on medication) Feeling down, depressed, or hopeless: Several days Patient Health Questionnaire-2 Score: 2 Current Outpatient Medications on File Prior to [...] BY MOUTH EVERY DAY 100 tablet 3 Dgsyuiqicyj-Lfyuflqav-Idvezi (Trelegy Ellipta) 100-62.5-25 MCG/ACT aerosol powder Inhale 1 puff Daily 3 each 3 gabapentin (Neurontin) 100 MG capsule Take 2 capsules (200 mg) by mouth in the morning and 2 capsules (200 mg) before bedtime. 360 capsule 3 glucose blood (True Metrix Blood Glucose Test) test strip 1 each by Other route 1 (one) time each day at the same time. Lancets (TuneenergyTouch Delica Plus [id number]) [facility] USE 1 LANCET TO TEST BLOOD SUGAR [...] a day as needed for dizziness. memantine (Namenda) 10 MG tablet Take 1 tablet (10 mg) by mouth in the morning and 1 tablet (10 mg)before bedtime. 60 tablet 5 Multiple Vitamins-Minerals (OCUVITE ADULT 50+ PO) Take by mouth 1 (one) time each day. nitroglycerin (Nitrostat) 0.[address] 0.4 mg under the tongue every 5 (five) minutes if needed. nystatin (Mycostatin) ointment every 12 (twelve) hours. polyethylene glycol, PEG, 3350 (Glycolax, Miralax) powder Take 17 g by mouth Daily as needed (constipation) predniSONE (Deltasone) 10 MG tablet torsemide (Demadex) 10 MG tablet Take 1 tablet (10 mg) by mouth Daily (Patient taking differently: Take 15 mg by mouth Daily) 90 tablet 3 omeprazole (PriLOSEC) [address] capsule TAKE 1 CAPSULE EVERY MORNING BEFORE A MEAL (Patient not taking: Reported on 01/12/2025) 90 capsule 3 [DISCONTINUED] memantine (Namenda Titration Pack) 28 x 5 MG & 21 x 10 MG tablet pack USE DIRECTED FOR FIRST MONTH. 147 each 1 No current facility-administered medications on file [...] of bladder Left thyroid nodule Morbid obesity ([facility]) 07/04/2019 Osteoarthrosis Peripheral vascular disease, unspecified Unspecified combined systolic (congestive) and diastolic (congestive) heart failure ([facility]) Past Surgical History: Procedure Laterality Date BACK SURGERY repair herniated disc COLONOSCOPY 2010 COLONOSCOPY W/ POLYPECTOMY 03/08/2024 EGD 02/03/2024 W/ Esophageal Dilation FLEXIBLE SIGMOIDOSCOPY 02/03/2024 FNA W IMAGING GUIDANCE thyroid 03/22/19, 07/08/21 HYSTERECTOMY OTHER SURGICAL HISTORY 01/15/2001 LT common iliac artery stent, Dr. Cortes OTHER SURGICAL HISTORY 09/22/2003 LT SFA stent, Dr. Cortes THYROID SURGERY partial thyroidectomy Visit Vitals Pulse 70 Ht 5' 5 Wt 185 lb SpO2 98% BMI 30.79 kg/m?? Smoking Status Former BSA 1.96 m?? Review of Systems Objective Physical Exam Constitutional: General: She is not in acute distress. Appearance: She is not ill-appearing. Cardiovascular: Rate and Rhythm: Normal rate [...] all orders for this visit: Panlobular emphysema (HCC) - On steroid taper from hospital discharge. Depression with anxiety - buPROPion XL (Wellbutrin XL) 150 MG 24 hr tablet; Take 1 tablet (150 mg) by mouth in the morning.Do not crush, chew, or split. Acute on chronic diastolic congestive heart failure (HCC) - The patient was seen today in follow up of recent hospital stay. All available hospital records were reviewed and discussed with the patient. Hospital discharge meds were reviewed. Any changes are as noted. - Diuretics changed at that stay Follow up in about 2 weeks (around 01/30/2025). documented in this encounter Plan of Treatment Upcoming Encounters Date Type Department Care Team (Late st Contact Info) Description 01/30/2025 2:15 PM EDT Office Visit [facility] [place] [address] [facility] [address] [place] [address] Yossi Landers MD [address] [facility] [address] [place] [address] documented as of this encounter Visit Diagnoses Diagnosis Panlobular emphysema (HCC)- Primary Other emphysema Depression with anxiety Dysthymic disorder Acute on chronic diastolic congestive heart failure (HCC) Chronic combined systolic and diastolic congestive heart failure (HCC) documented in this encounter Care Teams Visual Merchandiser Relationship Specialty Start Date End Date Yossi Landers MD [address] [facility] [address] [place] [address] PCP - General Internal Medicine 11/03/22 Yossi Landers MD [address] [facility] [address] [place] [address] PCP - [employer] 11/20/22 Daniela Alvarado LPN [address] [facility] [address] [place] [address] 09/09/24 documented as of this encounter
[2025-01-18] VITALS (26 sets, daily range): BP systolic 107–111; BP diastolic 56–75; PULSE 68–90; TEMP 36.6–36.8; O2SAT 92–100; BMI 28.5; BMI 30.9
--- NOTE | 2025-01-18 07:33 | XR_ITS ---
The [place] [id number] Patient Name: ELGIN NORWOOD MRN: [id number] date: 1940 Sex: F Assigned Patient Location: MS Current Patient Location: MS Accession/Order Number: [id number] Exam Date: 01/18/2025 08:21 Report Date: 01/18/2025 08:22 At the request of: STARR MORLEY MD Procedure: XR chest 1V Single view chest: CLINICAL HISTORY: fall COMPARISON: None FINDINGS: The heart is normal in size. The lungs are clear. The pulmonary vasculature is normal. Mediastinum and hilar regions are unremarkable. No pleural effusions are seen. Visualized bones are intact. XR/XR chest 1V IMPRESSION: NEGATIVE CHEST. Impression dictated by: Renard Soriano Jr., D.O. 01/18/2025 8:22 AM Dictation Location: [place] [address] Electronically authenticated by: [id number] Y Date: 01/18/2025 08:22
--- NOTE | 2025-01-18 07:33 | CT_ITS ---
The [address] [address] Patient Name: ELGIN NORWOOD MRN: [id number] date: 1940 Sex: F Assigned Patient Location: MS Current Patient Location: MS Accession/Order Number: [id number] Exam Date: 01/18/2025 08:29 Report Date: 01/18/2025 08:30 At the request of: STARR MORLEY MD Procedure: CT cervical spine wo con CT CERVICAL SPINE WITHOUT CONTRAST WITH 3D RECONSTRUCTIONS: CLINICAL HISTORY: fall COMPARISON: CT cervical spine 08/24/2022 TECHNIQUE: Spiral axial unenhanced images were obtained through the cervical spine. Sagittal, coronal and 3D volume-rendered reconstructions were also reviewed. This CT exam was performed using one or more following dose reduction techniques: Automated exposure control, adjustment of the mA and/or kV according to patient size, or use of iterative reconstruction technique. FINDINGS: No fracture. Vertebral body heights appear maintained. Mild spondylosis C4-C6. Mild diffuse facet joint degenerative changes. No prevertebral soft tissue swelling. 3 mm anterior subluxation of C4 on C5. Visualized lung apices demonstrate emphysema. CT/CT cervical spine wo con IMPRESSION: NO CERVICAL SPINE FRACTURE Impression dictated by: Renard Soriano Jr., D.O. 01/18/2025 8:30 AM Dictation Location: [place] [address] Electronically authenticated by: [id number] Y Date: 01/18/2025 08:30
--- NOTE | 2025-01-18 07:33 | ECG_ITS ---
The [facility] Test Date: 2025-01-18 Pat Name: ELGIN NORWOOD Department: Room: - Gender: Female Chemists: : 1940 Requested By: [id number] Order Number: [id number] Reading MD: EMILY CHING M.D. Measurements Intervals [place] Rate: 89 P: 69 VT: 166 QRS: 41 QRSD: 98 T: 70 QT: 334 QTc: 381 Interpretive Statements 1100 Sinus rhythm 4068 Nonspecific Twave abnormality 9130 borderline ECG Compared to ECG 01/09/2025 10:55:33 No significant changes Electronically Signed On 01-18-2025 8:08:55 EDT by EMILY CHING M.D.
--- NOTE | 2025-01-18 07:34 | CT_ITS ---
The [address] [address] Patient Name: ELGIN NORWOOD MRN: [id number] date: 1940 Sex: F Assigned Patient Location: MS Current Patient Location: MS Accession/Order Number: [id number] Exam Date: 01/18/2025 08:26 Report Date: 01/18/2025 08:29 At the request of: STARR MORLEY MD Procedure: CT head/brain wo con CT BRAIN WITHOUT CONTRAST: CLINICAL HISTORY: fall COMPARISON: CT brain 09/22/2024 TECHNIQUE: Contiguous axial unenhanced images were obtained through the brain. This CT exam was performed using one or more following dose reduction techniques: Automated exposure control, adjustment of the mA and/or kV according to patient size, or use of iterative reconstruction technique. FINDINGS: There is no evidence of midline shift, intra or extra-axial fluid collection, hemorrhage or CT evidence of stroke. Cortical atrophy with chronic microvascular ischemic changes. Posterior fossa appears unremarkable. Visualized intraorbital contents demonstrate no acute findings. Visualized paranasal sinuses are clear. The surrounding soft tissues are normal. CT/CT head/brain wo con IMPRESSION: NO ACUTE INTRACRANIAL ABNORMALITY. Impression dictated by: Renard Soriano Jr., DAjithOAjith 01/18/2025 8:29 AM Dictation Location: [place] [address] Electronically authenticated by: [id number] Y Date: 01/18/2025 08:29
--- OUTSIDE RECORDS SUMMARY | 2025-01-18 07:36 | XMS_ITS | Encounter Summary ---
Author Organization [facility] Address [address] [facility] [place] [address] Care Team Providers Care Hotel And Dining Room Cashier Name Role Phone Yossi Landers MD Primary Care Provider [phone] Yossi Landers MD Unavailable [phone] Seble Mejia RN Unavailable Daniela Alvarado LPN Unavailable Encounter Details Date Type Department Care Team (Late st Contact Info) Description 04/09/2023 Abstract [facility] [place] [facility] 112 [facility] 110 [place] [phone] Yossi Landers MD 112 [facility] 110 [place], [place] [phone] Social History Tobacco Use Types Packs/Day Years [...] often do you attend chur ch or presybeterian services? Never 11/12/2022 Do you belong to [...] Recorded Patient Health Questionnaire-2 Score 0 02/09/2023 [facility] of Occupat ional Health [...] Visit [facility] [place] [address] [facility] [address] [place] [address] Yossi Landers MD [address] [facility] [address] [place] [address] documented as of this encounter Visit Diagnoses Not on filedocumented in this encounter Care Teams Hotel And Dining Room Cashier Relationship Specialty Start Date End Date Yossi Landers MD [address] [facility] [address] [place] [address] PCP - General Internal Medicine 11/03/22 Yossi Landers MD [address] [facility] [address] [place] [address] PCP - [employer] 11/20/22 Seble Mejia, CIPRIANO [address] [place] [address] Clinical [facility] 07/29/24 09/09/24 Daniela Al[place]raado LPN 112 [facility] 110 [place] [address] 09/09/24 documented as of this encounter
--- OUTSIDE RECORDS SUMMARY | 2025-01-18 07:36 | XMS_ITS | Encounter Summary ---
Author Organization [facility] Address [address] [facility] [place] [address] Care Team Providers Care Engineering And Development Director Name Role Phone Yossi Landers MD Primary Care Provider Yossi Landers MD Unavailable [phone] Seble Mejia RN Unavailable [phone] Daniela Alvarado LPN Unavailable Encounter Details Date Type Department Care Team (Late st Contact Info) Description 12/11/2022 Abstract [facility] [place] [facility] 112 [facility] 110 [place] [phone] Yossi Landers MD 112 [facility] 110 [place], [place] [phone] Social History Tobacco Use Types Packs/Day Years [...] 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 Not very hard 11/12/2022 [facility] Occupat ional Health - [...] 01/30/2025 2:15 PM EDT Office Visit [facility] [place] [address] [facility] [address] [place] [address] Yossi Landers MD [address] [facility] 110 [place] [address] documented as of this encounter Visit Diagnoses Not on filedocumented in this encounter Care Teams Engineering And Development Director Relationship Specialty Start Date End Date Yossi Landers MD [address] [facility] 110 [place] [address] PCP - General Internal Medicine 11/03/22 Yossi Landers MD [address] [facility] [address] [place] [address] PCP - [employer] 11/20/22 Seble Mejia RN [address] [place] [address] Clinical [facility] 07/29/24 09/09/24 Daniela Alvarado LPN 112 [place] [address] 09/09/24 documented as of this encounter
--- OUTSIDE RECORDS SUMMARY | 2025-01-18 07:36 | XMS_ITS | Encounter Summary ---
Author Organization [facility] Address [address] [facility] [place] [address] Care Team Providers Care Camp Counselor Name Role Phone Yossi Landers MD Primary Care Provider Yossi Landers MD Unavailable [phone] Seble Mejia RN Unavailable Daniela Alvarado LPN Unavailable Encounter Details Date Type Department Care Team (Late st Contact Info) Description 03/27/2023 Abstract [facility] [place] [facility] 112 [facility] [address] [place] [phone] Yossi Landers MD 112 [facility] 110 [place], [place] [phone] Social History Tobacco Use Types Packs/Day Years [...] Recorded Patient Health Questionnaire-2 Score 0 02/09/2023 [facility] of Occupat ional Health - Occupational [...] Visit [facility] [place] [address] [facility] [address] [place] [address] Yossi Landers MD [address] [facility] [address] [place] [address] documented as of this encounter Visit Diagnoses Not on filedocumented in this encounter Care Teams Camp Counselor Relationship Specialty Start Date End Date Yossi Landers MD [address] [facility] [address] [place] [address] PCP - General Internal Medicine 11/03/22 Yossi Landers MD [address] [facility] [address] [place] [address] PCP - [employer] 11/20/22 Seble Mejia, CIPRIANO [address] [place] [address] Clinical [facility] 07/29/24 09/09/24 Daniela Alvarado LPN 112 [facility] 110 [place] [address] 09/09/24 documented as of this encounter
--- OUTSIDE RECORDS SUMMARY | 2025-01-18 07:36 | XMS_ITS | Encounter Summary ---
Author Organization [facility] Address [address] [facility] [place] [address] Care Team Providers Care Manager Energy Name Role Phone Yossi Landers MD Primary Care Provider [phone] Yossi Landers MD Unavailable [phone] Seble Mejia RN Unavailable Daniela Alvarado LPN Unavailable Encounter Details Date Type Department Care Team (Late st Contact Info) Description 03/29/2024 Abstract [facility] [place] [facility] 112 [facility] 110 [place] [address] Yossi Landers MD 112 [facility] 110 [place], [place] [phone] Social History Tobacco Use Types Packs/Day Years [...] How often do you attend chur or faith services? Never 11/12/2022 Do you belong to [...] Recorded Patient Health Questionnaire-2 Score 0 10/12/2023 [facility] of Occupat ional Health - Occupational Stress [...] Visit [facility] [place] [address] [facility] [address] [place] [address] Yossi Landers MD [address] [facility] [address] [place] [address] documented as of this encounter Visit Diagnoses Not on filedocumented in this encounter Care Teams Manager Energy Relationship Specialty Start Date End Date Yossi Landers MD [address] [address] PCP - General Internal Medicine 11/03/22 Yossi Landers MD [address] [facility] [address] [place] [address] PCP - [employer] 11/20/22 Seble Mejia, CIPRIANO [address] [place] [address] [facility] 07/29/24 09/09/24 Daniela Alvarado LPN [address] [address] 09/09/24 documented as of this encounter
--- OUTSIDE RECORDS SUMMARY | 2025-01-18 07:36 | XMS_ITS | Encounter Summary ---
Author Organization [facility] Address [address] [facility] [place] [address] Care Team Providers Care Ward Supervisor Name Role Phone Yossi Landers MD Primary Care Provider [phone] Yossi Landers MD Unavailable [phone] Seble Mejia RN Unavailable Daniela Alvarado LPN Unavailable Encounter Details Date Type Department Care Team (Late st Contact Info) Description 02/23/2024 Abstract [facility] [place] [facility] 112 [facility] 110 [place] [address] Yossi Landers MD 112 [facility] 110 [place], [place] [phone] Social History Tobacco Use Types Packs/Day Years [...] How often do you attend chur or jehovah's witness services? Never 11/12/2022 Do you belong to any clubs o r organizations such as pentecostal groups, unions, fraternal or athletic groups, or [...] Health Questionnaire-2 Score 0 10/12/2023 [facility] [place] of Occupat ional Health - Occupational Stress [...] place to sleep or slept in a penitentiary (including now)? No 11/12/2022 Comments Unknown Sex [...] Visit [facility] [place] [address] [facility] [address] [place] [address] Yossi Landers MD [address] [facility] [address] [place] [address] documented as of this encounter Visit Diagnoses Not on filedocumented in this encounter Care Teams Ward Supervisor Relationship Specialty Start Date End Date Yossi Landers MD [address] [address] PCP - General Internal Medicine 11/03/22 Yossi Landers MD [address] [facility] [address] [place] [address] PCP - [employer] 11/20/22 Seble Mejia, CIPRIANO [address] [place] [address] [facility] 07/29/24 09/09/24 Daniela Alvarado LPN [address] [address] [address] 09/09/24 documented as of this encounter
--- OUTSIDE RECORDS SUMMARY | 2025-01-18 07:36 | XMS_ITS | Encounter Summary ---
Author Organization [facility] Address [address] [place] [address] Care Team Providers Care Tapper Supervisor Name Role Phone Yossi Landers MD Primary Care Provider [phone] Yossi Landers MD Unavailable [phone] Seble Mejia RN Unavailable [phone] Daniela Alvarado LPN Unavailable Encounter Details Date Type Department Care Team (Late st Contact Info) Description 06/01/2023 Clinisync Result Encounter NOMS External Department Unsolicited Bel Dominique MD [address] [facility] 130 [place] [address] Social History Tobacco Use Types Packs/Day Years [...] any clubs o r organizations such as congregation groups, unions, fraternal or athletic groups, or [...] Recorded Patient Health Questionnaire-2 Score 0 02/09/2023 [facility] [place] of Occupat ional Health - Occupational Stress [...] EDT Office Visit [facility] [place] 112 [facility] 110 [place] [address] Yossi Landers MD 112 [facility] 110 [place] [address] documented as of this encounter Procedures Procedure Name Priority Date/Time Associated Diagnosis Comments US THYROID 06/01/2023 10:38 AM EST documented in this encounter Results * US thyroid (06/01/2023 10:38 AM EST) Anatomical Region Laterality Modality Head, Neck Ultrasound 06/01/2023 10:3 8 AM EST Narrative 06/01/2023 10:40 AM EST The [address] [address] Ultrasound Report Signed Patient: Jaquelin Norwood MR#: [id number] : 1940 Acct:[id number] Age/Sex: 83 / F ADM Date: 06/01/23 Loc: US Attending Dr: Bel Dominique M.D. Ordering Physician: Bel Dominique M.D. Date of Service: 06/01/23 Procedure(s): US thyroid Accession Number(s): [id number] cc: YOSSI LANDERS ; Bel Dominique M.D. [place] [id number] Patient Name: JAQUELIN NORWOOD MRN: [id number] date: 1940 Sex: F Assigned Patient Location: US Current Patient Location: US Accession/Order Number: [id number] Exam Date: 06/01/2023 09:55 Report Date: 06/01/2023 [...] from the May 2022 exam TI-RADS: The [employer] TI-RADS committee's white paper recommendations for thyroid lesions classified as TR4 (moderately suspicious) are listed below: > 1.0 cm. Follow-up ultrasound in 1, 2, 3, and 5 years. > 1.5 cm. FNA. J. Am Nikunj Radiol 2017;14:587-595. Electronically authenticated by: CARLOS SOOD Date: 06/01/2023 10:38 Dictated By: Carlos Sood M.D. Signed By: 06/01/23 1040 DD/ 1038 TD/TT: Staking Technician: Procedure Note Radiology, Radiologist, MD - 08/26/2023 [place] [address] Ultrasound Report Signed Patient: Jaquelin Norwood JMR#: [id number] : 1940cct:[id number] Age/Sex: 83 / FADM Date: 06/01/23 Loc: US Attending Dr: Bel Dominique M.D. Ordering Physician: Bel Dominique M.D. Date of Service: 06/01/23 Procedure(s): US thyroid Accession Number(s): [id number] cc: YOSSI LANDERS ; Bel Dominique M.D. The [place] [address] Patient Name: JAQUELIN NORWOOD MRN: [id number] date: 1940 Sex: F Assigned Patient Location: US Current Patient Location: US Accession/Order Number: [id number] Exam Date: 06/01/2023 09:55 Report Date: 06/01/2023 [...] from the May 2022 exam TI-RADS: The [employer] TI-RADS committee's white paper recommendations for thyroid lesions classified as TR4 (moderatelysuspicious) are listed below: > 1.0 cm. Follow-up ultrasound in 1, 2, 3, and 5 years. > 1.5 cm. FNA. J. Am Nikunj Radiol 2017;14:587-595. Electronically authenticated by: CARLOS SOOD Date: 06/01/2023 10:38 Dictated By: Carlos Sood M.D. Signed By:06/01/23 1040 DD/ 1038 TD/TT: Staking Technician: us Bel Dominique MD IMG US PROCEDURES Final Resul t documented in this encounter Visit Diagnoses Not on filedocumented in this encounter Care Teams Tapper Supervisor Relationship Specialty Start Date End Date Yossi Landers MD [address] [facility] 110 [place] [address] PCP - General Internal Medicine 11/03/22 Yossi Landers MD [address] [facility] 110 [place] [address] PCP - [employer] 11/20/22 Seble Mejia, RN [address] [place] [address] Clinical Advocate Family Medicine 07/29/24 09/09/24 Daniela Alvarado LPN [address] [facility] 110 [place] [address] 09/09/24 documented as of this encounter
--- OUTSIDE RECORDS SUMMARY | 2025-01-18 07:36 | XMS_ITS | Encounter Summary ---
Author Organization [facility] Address [address] [facility] [place] [address] Care Team Providers Care Rn Clinical Coordinator Name Role Phone Yossi Landers MD Primary Care Provider Yossi Landers MD Unavailable [phone] Seble Mejia RN Unavailable Daniela Alvarado LPN Unavailable Encounter Details Date Type Department Care Team (Late st Contact Info) Description 02/12/2023 Abstract [facility] [place] [facility] 112 [facility] 110 [place] [phone] Yossi Landers MD 112 [facility] 110 [place], [place] [address] Social History Tobacco Use Types Packs/Day Years [...] any clubs o r organizations such as congregational groups, unions, fraternal or athletic groups, or [...] Recorded Patient Health Questionnaire-2 Score 0 02/09/2023 [facility] of Occupat ional Health - Occupational [...] Description 01/30/2025 2:15 PM EDT Office Visit [place] [address] [facility] 110 [place] [address] Yossi Landers MD [address] [facility] 110 [place] [address] documented as of this encounter Visit Diagnoses Not on filedocumented in this encounter Care Teams Rn Clinical Coordinator Relationship Specialty Start Date End Date Yossi Landers MD [address] [place] [address] PCP - General Internal Medicine 11/03/22 Yossi Landers MD [address] [facility] [address] [place] [address] PCP - [employer] 11/20/22 Seble Mejia, RN [address] [place] [address] Clinical Advocate Family Medicine 07/29/24 09/09/24 Daniela Alvarado LPN 112 [facility] 110 [place] [address] 09/09/24 documented as of this encounter
--- OUTSIDE RECORDS SUMMARY | 2025-01-18 07:36 | XMS_ITS | Encounter Summary ---
Author Organization [facility] Address [address] [facility] [place] [place] [address] Care Team Providers Care Fish Pitcher Name Role Phone Yossi Landers MD Primary Care Provider [phone] Yossi Landers MD Unavailable [phone] Seble Mejia RN Unavailable Daniela Alvarado LPN Unavailable Encounter Details Date Type Department Care Team (Late st Contact Info) Description 12/18/2022 Abstract [facility] [place] [facility] 112 [facility] 110 [place] [address] Yossi Landers MD 112 [facility] 110 [place], [place] [address] Social History Tobacco Use Types Packs/Day Years [...] any clubs o r organizations such as yazidi groups, unions, fraternal or athletic groups, or [...] 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 Not very hard 11/12/2022 [facility] [place] of Occupat ional Health - Occupational Stress [...] Visit [facility] [place] [address] [facility] 110 [place] [address] Yossi Landers MD [address] [facility] 110 [place] [address] documented as of this encounter Visit Diagnoses Not on filedocumented in this encounter Care Teams Fish Pitcher Relationship Specialty Start Date End Date Yossi Landers MD [address] [place] [address] PCP - General Internal Medicine 11/03/22 Yossi Landers MD [address] [facility] 110 [place] [address] PCP - [employer] 11/20/22 Seble Mejia, RN [address] [place] [address] Clinical Advocate Family Medicine 07/29/24 09/09/24 Daniela Alvarado LPN 112 [facility] 110 [place] [address] 09/09/24 documented as of this encounter
--- OUTSIDE RECORDS SUMMARY | 2025-01-18 07:36 | XMS_ITS | Encounter Summary ---
Author Organization [facility] Address [address] [place] [facility] [address] Care Team Providers Care Retail Loan Originator Name Role Phone Yossi Landers MD Primary Care Provider Yossi Landers MD Unavailable [phone] Seble Mejia RN Unavailable Daniela Alvarado LPN Unavailable Encounter Details Date Type Department Care Team (Late st Contact Info) Description 12/18/2022 Abstract [facility] [place] [facility] 112 [facility] 110 [place] [phone] Yossi Landers MD 112 [facility] 110 [place], [place] [address] Social History Tobacco Use Types Packs/Day Years [...] any clubs o r organizations such as buddhist groups, unions, fraternal or athletic groups, or [...] 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 Not very hard 11/12/2022 [facility] [place] of Occupat ional Health - Occupational Stress [...] Visit [facility] [place] [address] [facility] 110 [place] [address] Yossi Landers MD [address] [facility] 110 [place] [address] documented as of this encounter Visit Diagnoses Not on filedocumented in this encounter Care Teams Retail Loan Originator Relationship Specialty Start Date End Date Yossi Landers MD [address] [place] [address] PCP - General Internal Medicine 11/03/22 Yossi Landers MD [address] [facility] 110 [place] [address] PCP - [employer] 11/20/22 Seble Mejia, RN [address] [place] [address] Clinical Advocate Family Medicine 07/29/24 09/09/24 Daniela Alvarado LPN 112 [facility] 110 [place] [address] 09/09/24 documented as of this encounter
--- OUTSIDE RECORDS SUMMARY | 2025-01-18 07:36 | XMS_ITS | Encounter Summary ---
Author Organization [facility] Address [address] [facility] [place] [address] Care Team Providers Care Farm Management Adviser Name Role Phone Yossi Landers MD Primary Care Provider [phone] Yossi Landers MD Unavailable [phone] Seble Mejia RN Unavailable Daniela Alvarado LPN Unavailable Encounter Details Date Type Department Care Team (Late st Contact Info) Description 03/04/2023 Abstract [facility] [place] [facility] 112 [facility] 110 [place] [address] Yossi Landers MD 112 [facility] 110 [place], [place] [address] Social History Tobacco Use Types Packs/Day Years [...] often do you attend chur ch or scientologist services? Never 11/12/2022 Do you belong to any clubs o r organizations such as caodaism groups, unions, fraternal or athletic groups, or [...] Recorded Patient Health Questionnaire-2 Score 0 02/09/2023 [facility] of Occupat ional Health [...] Office Visit [place] [address] [facility] 110 [place] [address] Yossi Landers MD [address] [facility] 110 [place] [address] documented as of this encounter Visit Diagnoses Not on filedocumented in this encounter Care Teams Farm Management Adviser Relationship Specialty Start Date End Date Yossi Landers MD [address] [place] [address] PCP - General Internal Medicine 11/03/22 Yossi Landers MD [address] [facility] 110 [place] [address] PCP - [employer] 11/20/22 Seble Mejia, RN [address] [place] [address] Clinical Advocate Family Medicine 07/29/24 09/09/24 Daniela Alvarado LPN 112 [facility] 110 [place] [address] 09/09/24 documented as of this encounter
--- OUTSIDE RECORDS SUMMARY | 2025-01-18 07:36 | XMS_ITS | Encounter Summary ---
Author Organization [facility] Address [address] [facility] [place] [address] Care Team Providers Care Brim And Crown Presser Name Role Phone Yossi Landers MD Primary Care Provider [phone] Yossi Landers MD Unavailable [phone] Seble Mejia RN Unavailable Daniela Alvarado LPN Unavailable Encounter Details Date Type Department Care Team (Late st Contact Info) Description 02/25/2023 Abstract [facility] [place] [facility] 112 [facility] 110 [place] [address] Yossi Landers MD 112 [facility] 110 [place], [place] [address] Social History Tobacco Use Types Packs/Day Years [...] place to sleep or slept in a snf (including now)? No 11/12/2022 Comments Unknown Sex [...] Office Visit [place] [address] [facility] 110 [place] [address] Yossi Landers MD [address] [facility] 110 [place] [address] documented as of this encounter Visit Diagnoses Not on filedocumented in this encounter Care Teams Brim And Crown Presser Relationship Specialty Start Date End Date Yossi Landers MD [address] [place] [address] PCP - General Internal Medicine 11/03/22 Yossi Landers MD [address] [facility] 110 [place] [address] PCP - [employer] 11/20/22 Seble Mejia, RN [address] [place] [address] Clinical Advocate Family Medicine 07/29/24 09/09/24 Daniela Alvarado LPN 112 [facility] 110 [place] [address] 09/09/24 documented as of this encounter
--- OUTSIDE RECORDS SUMMARY | 2025-01-18 07:36 | XMS_ITS | Encounter Summary ---
Author Organization [facility] Address [address] [place] [address] Care Team Providers Care Room Service Associate Name Role Phone Yossi Landers MD Primary Care Provider [phone] Yossi Landers MD Unavailable [phone] Daniela Alvarado LPN Unavailable Encounter Details Date Type Department Care Team (Late st Contact Info) Description 11/08/2024 Abstract [facility] [place] [facility] 112 [facility] 110 [place] [address] Yossi Landers MD 112 [facility] 110 [place], [place] [address] Social History Tobacco Use Types Packs/Day Years [...] How often do you attend chur or catholic services? Never 11/12/2022 Do you belong to any clubs o r organizations such as lutheran groups, unions, fraternal or athletic groups, or [...] Recorded Patient Health Questionnaire-2 Score 0 11/07/2024 [facility] [place] of Occupat ional Health - Occupational Stress [...] place to sleep or slept in a intermediate (including now)? No 11/12/2022 Comments Unknown Sex and Gender Information Value Date Recorded Sex Assigned at Not on file Legal Sex Female 6:57 PM EDT Gender Identity Not on file Sexual Orientation Not on file documented as of this encounter Plan of Treatment Upcoming Encounters Date Type Department Care Team (Late st Contact Info) Description 01/30/2025 2:15 PM EDT Office Visit [facility] [place] [facility] [address] [facility] 110 [place] [address] Yossi Landers MD [address] [facility] 110 [place], [place] [address] documented as of this encounter Visit Diagnoses Not on filedocumented in this encounter Care Teams Room Service Associate Relationship Specialty Start Date End Date Yossi Landers MD [address] [place] [address] PCP - General Internal Medicine 11/03/22 Yossi Landers MD [address] [facility] 110 [place] [address] PCP - [employer] 11/20/22 Daniela Alvarado LPN [address] [address] 09/09/24 documented as of this encounter
--- OUTSIDE RECORDS SUMMARY | 2025-01-18 07:36 | XMS_ITS | Encounter Summary ---
Author Organization [facility] Address [address] [place] [address] Care Team Providers Care Auto Top Mechanic Name Role Phone Yossi Landers MD Primary Care Provider Yossi Landers MD Unavailable [phone] Seble Mejia RN Unavailable Daniela Alvarado LPN Unavailable Encounter Details Date Type Department Care Team (Late st Contact Info) Description 01/14/2024 Abstract [facility] [place] [facility] 112 [facility] 110 [place] [address] Yossi Landers MD 112 [facility] 110 [place], [place] [address] Social History Tobacco Use Types Packs/Day Years [...] any clubs o r organizations such as yazdanism groups, unions, fraternal or athletic groups, or [...] Recorded Patient Health Questionnaire-2 Score 0 10/12/2023 [facility] - Occupational Stress Questionnaire [...] [facility] [place] [address] [facility] 110 [place] [address] Yossi Landers MD [address] [facility] 110 [place] [address] documented as of this encounter Visit Diagnoses Not on filedocumented in this encounter Care Teams Auto Top Mechanic Relationship Specialty Start Date End Date Yossi Landers MD [address] [facility] 110 [place] [address] PCP - General Internal Medicine 11/03/22 Yossi Landers MD [address] [facility] 110 [place] [address] PCP - [employer] 11/20/22 Seble Mejia RN [address] [place] [address] Clinical Advocate Family Medicine 07/29/24 09/09/24 Daniela Alvarado LPN 112 [place] [address] 09/09/24 documented as of this encounter
--- OUTSIDE RECORDS SUMMARY | 2025-01-18 07:36 | XMS_ITS | Encounter Summary ---
Author Organization [facility] Address [address] [place] [address] Care Team Providers Care Net Software Engineer Name Role Phone Yossi Landers MD Primary Care Provider [phone] Yossi Landers MD Unavailable [phone] Seble Mejia RN Unavailable [phone] Daniela Alvarado LPN Unavailable Encounter Details [...] often do you attend chur ch or baptist services? Never 11/12/2022 Do you belong to [...] Recorded Patient Health Questionnaire-2 Score 0 02/09/2023 [facility] of Occupat ional [facility] - Occupational Stress Questionnaire Answer Date [...] EDT Office Visit [facility] [place] 112 [facility] 110 [place] [address] Yossi Landers MD 112 [facility] 110 [place] [address] documented as of this encounter Procedures Procedure Name Priority Date/Time Associated Diagnosis Comments US THYROID 06/01/2023 10:38 AM EST documented in this encounter Results * US thyroid (06/01/2023 10:38 AM EST) Anatomical Region Laterality Modality Head, Neck Ultrasound 06/01/2023 10:3 8 AM EST Narrative 06/01/2023 10:40 AM EST The [address] [address] Ultrasound Report Signed Patient: Jaquelin Norwood MR#: [id number] : 1940 Acct:[id number] Age/Sex: 83 / F ADM Date: 06/01/23 Loc: US Attending Dr: Bel Dominique M.D. Ordering Physician: Bel Dominique M.D. Date of Service: 06/01/23 Procedure(s): US thyroid Accession Number(s): [id number] cc: YOSSI LANDERS ; Ble Dominique M.D. [place] [id number] Patient Name: JAQUELIN NORWOOD MRN: [facility]:[id number] date: 1940 Sex: F Assigned Patient Location: US Current Patient Location: US Accession/Order Number: [id number] Exam Date: 06/01/2023 09:55 Report Date: 06/01/2023 [...] from the May 2022 exam TI-RADS: The [employer] TI-RADS committee's white paper recommendations for thyroid lesions classified as TR4 (moderately suspicious) are listed below: > 1.0 cm. Follow-up ultrasound in 1, 2, 3, and 5 years. > 1.5 cm. FNA. J. Am Nikunj Radiol 2017;14:587-595. Electronically authenticated by: CARLOS SOOD Date: 06/01/2023 10:38 Dictated By: Carlos Sood M.D. Signed By: 06/01/23 1040 DD/ 1038 TD/TT: Tractor Drill Operator: Procedure Note Radiology, Radiologist, MD - 06/01/2023 The [place] [id number] Ultrasound Report Signed Patient: Jaquelin Norwood JMR#: [id number] : 1940cct:[id number] Age/Sex: 83 / FADM Date: 06/01/23 Loc: US Attending Dr: Bel Dominique M.D. Ordering Physician: Bel Dominique M.D. Date of Service: 06/01/23 Procedure(s): US thyroid Accession Number(s): [id number] cc: YOSSI LANDERS ; Bel Dominique M.D. The [place] [id number] Patient Name: JAQUELIN NORWOOD MRN: [id number] date: 1940 Sex: F Assigned Patient Location: US Current Patient Location: US Accession/Order Number: [id number] Exam Date: 06/01/2023 09:55 Report Date: 06/01/2023 [...] from the May 2022 exam TI-RADS: The [employer] TI-RADS committee's white paper recommendations for thyroid lesions classified as TR4 (moderatelysuspicious) are listed below: > 1.0 cm. Follow-up ultrasound in 1, 2, 3, and 5 years. > 1.5 cm. FNA. J. Am Nikunj Radiol 2017;14:587-595. Electronically authenticated by: CARLOS SOOD Date: 06/01/2023 10:38 Dictated By: Carlos Sood M.D. Signed By:06/01/23 1040 DD/ 1038 TD/TT: Tractor Drill Operator: us Generic External Data Provider IMG US PROCEDURES Final Result documented in this encounter Visit Diagnoses Not on filedocumented in this encounter Care Teams Net Software Engineer Relationship Specialty Start Date End Date Yossi Landers MD 112 [facility] 110 [place] [address] PCP - General Internal Medicine 11/03/22 Yossi Landers MD 112 [facility] 110 [place] [address] PCP - [employer] 11/20/22 Seble Mejia, CIPRIANO [address] [place] [address] Clinical Advocate Family Medicine 07/29/24 09/09/24 Daniela Alvarado LPN 112 [facility] 110 [place] [address] 09/09/24 documented as of this encounter
--- OUTSIDE RECORDS SUMMARY | 2025-01-18 07:36 | XMS_ITS | Encounter Summary ---
Author Organization [facility] Address [address] [place] [address] Care Team Providers Care Engineering Specialist Name Role Phone Yossi Landers MD Primary Care Provider [phone] Yossi Landers MD Unavailable [phone] Daniela Alvarado LPN Unavailable Encounter Details Date Type Department Care Team (Late st Contact Info) Description 11/07/2024 Abstract [facility] [place] [facility] [address] [facility] 110 [place] [address] Yossi Landers MD 112 [facility] 110 [place], [place] [address] Social History Tobacco Use Types Packs/Day Years [...] How often do you attend chur or rastafarian services? Never 11/12/2022 Do you belong to [...] Recorded Patient Health Questionnaire-2 Score 0 11/07/2024 [facility] of Occupat ional Health - Occupational Stress [...] things Not at all 11/07/2024 11:00 AM EDT Kimberly Sanchez L PN Feeling down, depressed, or hopeless Not at all 11/07/2024 11:00 AM EDT Kimberly Sanchez L PN Patient Health Questionnaire -2 Score 0 11/07/2024 11:00 AM EDT Kimberly Sanchez L PN documented as of this encounter Plan of Treatment Upcoming Encounters Date Type Department Care Team (Late st Contact Info) Description 01/30/2025 2:15 PM EDT Office Visit [facility] [place] [facility] [address] [facility] [address] [place] [address] Yossi Landers MD [address] [facility] 110 [place] [address] documented as of this encounter Visit Diagnoses Not on filedocumented in this encounter Care Teams Engineering Specialist Relationship Specialty Start Date End Date Yossi Landers MD [address] [facility] 110 [place] [address] PCP - General Internal Medicine 11/03/22 Yossi Landers MD [address] [facility] 110 [place] [address] PCP - [employer] 11/20/22 Daniela Alvarado LPN [address] [facility] [address] [place] [address] 09/09/24 documented as of this encounter
--- OUTSIDE RECORDS SUMMARY | 2025-01-18 07:36 | XMS_ITS | Encounter Summary ---
Author Organization [facility] Address [address] [place] [address] Care Team Providers Care Corporate Real Estate Manager Name Role Phone Yossi Landers MD Primary Care Provider [phone] Yossi Landers MD Unavailable [phone] Seble Mejia RN Unavailable Daniela Alvarado LPN Unavailable Encounter Details Date Type Department Care Team (Late st Contact Info) Description 01/04/2024 Clinisync Result Encounter NOMS External Department Unsolicited Yossi Landers MD [address] [facility] 110 [place] [address] Social History Tobacco Use Types Packs/Day Years [...] often do you attend chur ch or pentecostalism services? Never 11/12/2022 Do you belong to [...] Patient Health Questionnaire-2 Score 0 10/12/2023 [facility] of Occupat ional Health - [...] 2:15 PM EDT Office Visit [facility] [place] [facility] [address] [facility] 110 [place] [address] Yossi Landers MD 112 [facility] 110 [place] [address] documented as of this encounter Procedures Procedure Name Priority Date/Time Associated Diagnosis Comments NM HEPATOBILIARY SCAN W PHARMACOLOGICAL INTERVENTION 01/04/2024 10:48 AM EDT documented in this encounter Results * NM HEPATOBILIARY SCAN W PHARMACOLOGICAL INTERVENTION (01/04/2024 10:48 AM EDT) Anatomical Region Laterality Modality Radiographic Joanna ging 01/04/2024 10:4 8 AM EDT Narrative 01/04/2024 10:51 AM EDT The [address] [address] Nuclear Medicine Report Signed Patient: JAQUELIN NORWOOD MR#: [id number] : 1940 Acct:[id number] Age/Sex: 83 / F ADM Date: 01/04/24 Loc: [place] Attending Dr: YOSSI LANDERS Ordering Physician: YOSSI LANDERS Date of Service: 01/04/24 Procedure(s): MT hepatobiliary w pharm Accession Number(s): [id number] cc: YOSSI LANDERS The [place] [address] Patient Name: JAQUELIN NORWOOD MRN: [id number] date: 1940 Sex: F Assigned Patient Location: MT Current Patient Location: MT Accession/Order Number: [id number] Exam Date: 01/04/2024 06:05 Report Date: 01/04/2024 10:48 At the request of: YOSSI LANDERS Procedure: NM hepatobiliary w pharm EXAMINATION: MT hepatobiliary w pharm HISTORY: RIGHT UPPER QUADRANT [...] minutes. (Normal EF > 38%). OTHER: Negative. MT/MT hepatobiliary w pharm IMPRESSION: Delayed visualization of the gallbladder seen at 45 minutes Patent biliary tree Biliary dyskinesia with no emptying at 60 minutes Electronically authenticated by: CARLOS SOOD Date: 01/04/2024 10:48 Dictated By: Carlos Sood M.D. Signed By: 01/04/24 1051 DD/ 1048 TD/TT: Extension Division Director: Procedure Note Radiology, Radiologist, - 01/04/2024 [place] [address] Nuclear Medicine Report Signed Patient: JAQUELIN NORWOOD JMR#: [id number] : 2Acct:[id number] Age/Sex: 83 / FADM Date: 01/04/24 Loc: [place] Attending Dr: YOSSI LANDERS Ordering Physician: YOSSI LANDERS Date of Service: 01/04/24 Procedure(s): MT hepatobiliary w pharm Accession Number(s): [id number] cc: YOSSI LANDERS [place] [address] [place] [address] Patient Name: JAQUELIN NORWOOD MRN: [id number] date: 1940 Sex: F Assigned Patient Location: MT Current Patient Location: MT Accession/Order Number: [id number] Exam Date: 01/04/2024 06:05 Report Date: 01/04/2024 10:48 At the request of: YOSSI LANDERS Procedure: NM hepatobiliary w pharm EXAMINATION: MT hepatobiliary w pharm HISTORY: RIGHT UPPER QUADRANT [...] minutes. (Normal EF > 38%). OTHER: Negative. MT/MT hepatobiliary w pharm IMPRESSION: Delayed visualization of the gallbladder seen at 45 minutes Patent biliary tree Biliary dyskinesia with no emptying at 60 minutes Electronically authenticated by: CARLOS SOOD Date: 01/04/2024 10:48 Dictated By: Carlos Sood M.D. Signed By:01/04/24 1051 DD/ 1048 TD/TT: Extension Division Director: Yossi Landers MD IMG XR PROCEDURES Final Result documented in this encounter Visit Diagnoses Not on filedocumented in this encounter Care Teams Corporate Real Estate Manager Relationship Specialty Start Date End Date Yossi Landers MD [address] [place] [address] (Syve) PCP - General Internal Medicine 11/03/22 Yossi Landers MD [address] [facility] 110 [place] [address] PCP - [employer] 11/20/22 Seble Mejia, RN [address] [place] [address] [facility] 07/29/24 09/09/24 Daniela Alvarado LPN [address] [address] 09/09/24 documented as of this encounter
--- OUTSIDE RECORDS SUMMARY | 2025-01-18 07:36 | XMS_ITS | Encounter Summary ---
Author Organization [facility] Address [address] [facility] [place] [address] Care Team Providers Care Charger Name Role Phone Yossi Landers MD Primary Care Provider [phone] Yossi Landers MD Unavailable [phone] Seble Mejia RN Unavailable Daniela Alvarado LPN Unavailable Encounter Details Date Type Department Care Team (Late st Contact Info) Description 02/23/2024 Abstract [facility] [place] [facility] 112 [facility] 110 [place] [address] Yossi Landers MD 112 [facility] 110 [place], [place] [address] Social History Tobacco Use Types Packs/Day Years [...] How often do you attend chur or jew services? Never 11/12/2022 Do you belong to [...] Recorded Patient Health Questionnaire-2 Score 0 10/12/2023 [facility] of Occupat ional Health - Occupational Stress [...] Visit N[facility]S [place] [address] [facility] 110 [place] [address] Yossi Landers MD [address] [facility] 110 [place] [address] documented as of this encounter Visit Diagnoses Not on filedocumented in this encounter Care Teams Charger Relationship Specialty Start Date End Date Yossi Landers MD [address] [address] PCP - General Internal Medicine 11/03/22 Yossi Landers MD [address] [facility] 110 [place] [address] PCP - Hum[employer] 11/20/22 Seble Mejia, CIPRIANO [address] [place] [address] Clinical [facility] 07/29/24 09/09/24 Daniela Alvarado LPN [address] [address] 09/09/24 documented as of this encounter
--- OUTSIDE RECORDS SUMMARY | 2025-01-18 07:36 | XMS_ITS | Encounter Summary ---
Author Organization [facility] Address [address] [facility] [place] [address] Care Team Providers Care Envelope Maker Name Role Phone Yossi Landers MD Primary Care Provider [phone] Yossi Landers MD Unavailable [phone] Seble Mejia RN Unavailable Daniela Alvarado LPN Unavailable Encounter Details Date Type Department Care Team (Late st Contact Info) Description 03/23/2024 Abstract [facility] [place] [facility] 112 [facility] 110 [place] [address] Yossi Landers MD 112 [facility] 110 [place], [place] [address] Social History Tobacco Use Types Packs/Day Years [...] How often do you attend chur or scientologist services? Never 11/12/2022 Do you [...] Questionnaire-2 Score 0 10/12/2023 [facility] of Occupat ional Health - Occupational Stress [...] Visit N[facility]S [place] [address] [facility] 110 [place] [address] Yossi Landers MD [address] [facility] 110 [place] [address] documented as of this encounter Visit Diagnoses Not on filedocumented in this encounter Care Teams Envelope Maker Relationship Specialty Start Date End Date Yossi Landers MD [address] [address] PCP - General Internal Medicine 11/03/22 Yossi Landers MD [address] [facility] 110 [place] [address] PCP - Hum[employer] 11/20/22 Seble Mejia, CIPRIANO [address] [place] [address] Clinical [facility] 07/29/24 09/09/24 Daniela Alvarado LPN [address] [address] 09/09/24 documented as of this encounter
--- OUTSIDE RECORDS SUMMARY | 2025-01-18 07:36 | XMS_ITS | Encounter Summary ---
Author Organization [facility] Address [address] [place] [address] Care Team Providers Care Events Intern Name Role Phone Yossi Landers MD Primary Care Provider [phone] Yossi Landers MD Unavailable [phone] Seble Mejia RN Unavailable Daniela Alvarado LPN Unavailable Encounter Details Date Type Department Care Team (Late st Contact Info) Description 01/04/2024 Abstract [facility] [place] [facility] 112 [facility] 110 [place] [address] Yossi Landers MD 112 [facility] 110 [place], [place] [address] Social History Tobacco Use Types Packs/Day Years [...] often do you attend chur ch or moravian services? Never 11/12/2022 Do you belong to [...] Questionnaire-2 Score 0 10/12/2023 [facility] - Occupational Stress Questionnaire Answer [...] Visit N[facility]S [place] [address] [facility] 110 [place] [address] Yossi Landers MD [address] [facility] 110 [place] [address] documented as of this encounter Visit Diagnoses Not on filedocumented in this encounter Care Teams Events Intern Relationship Specialty Start Date End Date Yossi Landers MD [address] [facility] 110 [place] [address] PCP - General Internal Medicine 11/03/22 Yossi Landers MD [address] [facility] 110 [place] [address] PCP - Hum[employer] 11/20/22 Seble Mejia RN [address] [place] [address] Clinical [facility] 07/29/24 09/09/24 Daniela Alvarado LPN 112 [place] [address] 09/09/24 documented as of this encounter
--- OUTSIDE RECORDS SUMMARY | 2025-01-18 07:36 | XMS_ITS | Encounter Summary ---
Author Organization [facility] Address [address] [facility] [place] [address] Care Team Providers Care Crayon Sorting Machine Feeder Name Role Phone Yossi Landers MD Primary Care Provider Yossi Landers MD Unavailable [phone] Seble Mejia RN Unavailable [phone] Daniela Alvarado LPN Unavailable Encounter Details Date Type Department Care Team (Late st Contact Info) Description 02/06/2023 Abstract [facility] [place] [facility] 112 [facility] 110 [place] [address] Yossi Landers MD 112 [facility] 110 [place], [place] [address] Social History Tobacco Use Types Packs/Day Years [...] Recorded Patient Health Questionnaire-2 Score 0 02/09/2023 [facility] of Occupat ional Health - [...] Visit NOMS [place] [address] [facility] 110 [place] [address] Yossi Landers MD [address] [facility] 110 [place] [address] documented as of this encounter Visit Diagnoses Not on filedocumented in this encounter Care Teams Crayon Sorting Machine Feeder Relationship Specialty Start Date End Date Yossi Landers MD [address] [facility] 110 [place] [address] PCP - General Internal Medicine 11/03/22 Yossi Landers MD [address] [facility] 110 [place] [address] PCP - Hum[employer] 11/20/22 Seble Mejia, RN [address] [place] [address] Clinical [facility] Family [facility] 07/29/24 09/09/24 Daniela Alvarado LPN [address] [facility] 110 [place] [address] 09/09/24 documented as of this encounter
--- OUTSIDE RECORDS SUMMARY | 2025-01-18 07:36 | XMS_ITS | Encounter Summary ---
Author Organization [facility] Address [address] [facility] [place] [address] Care Team Providers Care Congregational Care Pastor Name Role Phone Yossi Landers MD Primary Care Provider Yossi Landers MD Unavailable [phone] Seble Mejia RN Unavailable [phone] Daniela Alvarado LPN Unavailable Encounter Details Date Type Department Care Team (Late st Contact Info) Description 03/11/2024 Abstract [facility] [place] [facility] 112 [facility] 110 [place] [address] Yossi Landers MD 112 [facility] 110 [place], [place] [address] Social History Tobacco Use Types Packs/Day Years [...] How often do you attend chur or amish services? Never 11/12/2022 Do you belong to any clubs o r organizations such as taoist groups, unions, fraternal or athletic groups, or [...] Recorded Patient Health Questionnaire-2 Score 0 10/12/2023 [facility] [place] of Occupat ional Health - Occupational Stress [...] Visit NOMS [place] [address] [facility] 110 [place] [address] Yossi Landers MD [address] [facility] 110 [place] [address] documented as of this encounter Visit Diagnoses Not on filedocumented in this encounter Care Teams Congregational Care Pastor Relationship Specialty Start Date End Date Yossi Landers MD [address] [address] PCP - General Internal Medicine 11/03/22 Yossi Landers MD [address] [facility] 110 [place] [address] PCP - Hum[employer] 11/20/22 Seble Mejia, CIPRIANO [address] [place] [address] Clinical [facility] Family [facility] 07/29/24 09/09/24 Daniela Alvarado LPN [address] [address] 09/09/24 documented as of this encounter
--- OUTSIDE RECORDS SUMMARY | 2025-01-18 07:36 | XMS_ITS | Encounter Summary ---
Author Organization [facility] Address [address] [place] [facility] [place] [address] Care Team Providers Care Reporting Manager Name Role Phone Yossi Landers MD Primary Care Provider [phone] Yossi Landers MD Unavailable [phone] Seble Mejia RN Unavailable [phone] Daniela Alvarado LPN Unavailable Encounter Details Date Type Department Care Team (Late st Contact Info) Description 12/09/2022 Orders Only [facility] [place] [facility] [address] [facility] 110 [place] [address] Yossi Landers MD [address] [facility] 110 [place], [place] [address] Social History Tobacco Use Types Packs/Day Years [...] any clubs o r organizations such as amish groups, unions, fraternal or athletic groups, or [...] 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 Not very hard 11/12/2022 [facility] of Occupat ional Health - Occupational [...] medical appointments or from getting medications? No 05/2 09/2022 In the past 12 months, has l [...] Visit [facility]S [place] [address] [facility] 110 [place] [address] Yossi Landers MD [address] [facility] 110 [place] [address] documented as of this encounter Procedures Procedure Name Priority Date/Time Associated Diagnosis Comments US THYROID Routine 12/08/2022 8:39 AM EDT documented in this encounter Results * US thyroid (12/08/2022 8:39 AM EDT) Anatomical Region Laterality Modality Head, Neck Ultrasound us Yossi Landers MD IMG US PROCEDURES Final Result documented in this encounter Visit Diagnoses Not on filedocumented in this encounter Care Teams Reporting Manager Relationship Specialty Start Date End Date Yossi Landers MD [address] [facility] 110 [place] [address] PCP - General Internal Medicine 11/03/22 Yossi Landers MD [address] [facility] 110 [place] [address] PCP - Hum[employer] 11/20/22 Seble Mejia, RN [address] [place], [place] [address] [facility] 07/29/24 09/09/24 Daniela Alvarado LPN [address] [address] 09/09/24 documented as of this encounter
--- OUTSIDE RECORDS SUMMARY | 2025-01-18 07:36 | XMS_ITS | Encounter Summary ---
Author Organization [facility] Address [address] [facility] [place] [address] Care Team Providers Care Supervisor Labor Gang Name Role Phone Yossi Lnaders MD Primary Care Provider [phone] Yossi Landers MD Unavailable [phone] Seble Mejia RN Unavailable Daniela Alvraado LPN Unavailable Encounter Details Date Type Department Care Team (Late st Contact Info) Description 12/09/2022 Abstract [facility] [place] [facility] 112 [facility] 110 [place] [address] Yossi Landers MD 112 [facility] 110 [place], [place] [address] Social History Tobacco Use Types Packs/Day Years [...] often do you attend chur ch or christian services? Never 11/12/2022 Do you belong to [...] 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 Not very hard 11/12/2022 [facility] of Occupat ional Health - Occupational [...] Visit N[facility]S [place] [address] [facility] 110 [place] [address] Yossi Landers MD [address] [facility] 110 [place] [address] documented as of this encounter Visit Diagnoses Not on filedocumented in this encounter Care Teams Supervisor Labor Gang Relationship Specialty Start Date End Date Yossi Landers MD [address] [facility] 110 [place] [address] PCP - General Internal Medicine 11/03/22 Yossi Landers MD [address] [facility] 110 [place] [address] PCP - Hum[employer] 11/20/22 Seble Mejia RN [address] [place] [address] Clinical [facility] 07/29/24 09/09/24 Daniela Alvarado LPN 112 [place] [address] 09/09/24 documented as of this encounter
--- OUTSIDE RECORDS SUMMARY | 2025-01-18 07:37 | XMS_ITS | Encounter Summary ---
Author Organization [facility] Address [address] [place] [address] Care Team Providers Care Adjunct Faculty Mathematics Department Name Role Phone Yossi Landers MD Primary Care Provider Yossi Landers MD Unavailable [phone] Seble Mejia RN Unavailable Daniela Alvarado LPN Unavailable Encounter Details Date Type Department Care Team (Late st Contact Info) Description 08/05/2023 Abstract [facility] [place] [facility] 112 [facility] 110 [place] [address] Yossi Landers MD 112 [facility] 110 [place], [place] [address] Social History Tobacco Use Types Packs/Day Years [...] often do you attend chur ch or hinduism services? Never 11/12/2022 Do you [...] Recorded Patient Health Questionnaire-2 Score 0 02/09/2023 [facility] of Occupat ional Health - Occupational [...] [facility] 110 [place] [address] Yossi Landers MD [address] [facility] 110 [place] [address] documented as of this encounter Visit Diagnoses Not on filedocumented in this encounter Care Teams Adjunct Faculty Mathematics Department Relationship Specialty Start Date End Date Yossi Landers MD [address] [facility] 110 [place] [address] PCP - General Internal Medicine 11/03/22 Yossi Landers MD [address] [facility] 110 [place] [address] PCP - Hum[employer] 11/20/22 Seble Mejia RN [address] [place] [address] Clinical [facility] 07/29/24 09/09/24 Daniela Alvarado LPN 112 [place] [address] 09/09/24 documented as of this encounter
--- OUTSIDE RECORDS SUMMARY | 2025-01-18 07:37 | XMS_ITS | Encounter Summary ---
Author Organization [facility] Address [address] [facility] [place] [address] Care Team Providers Care Airset Molder Name Role Phone Yossi Landres MD Primary Care Provider Yossi Landers MD Unavailable [phone] Seble Mejia RN Unavailable [phone] Daniela Alvarado LPN Unavailable Encounter Details Date Type Department Care Team (Late st Contact Info) Description 02/08/2024 Abstract [facility] [place] [facility] 112 [facility] 110 [place] [address] Yossi Landers MD 112 [facility] 110 [place], [place] [address] Social History Tobacco Use Types Packs/Day Years [...] Recorded Patient Health Questionnaire-2 Score 0 10/12/2023 [facility] [place] of Occupat ional Health - Occupational Stress [...] one occasion? Never 02/09/2024 4:23 PM EDT [employer] N documented as of this encounter Plan of Treatment Upcoming Encounters Date Type Department Care Team (Late st Contact Info) Description 01/30/2025 2:15 PM EDT Office Visit [facility] [place] [address] [facility] 110 [place] [address] Yossi Landers MD [address] [facility] 110 [place] [address] documented as of this encounter Visit Diagnoses Not on filedocumented in this encounter Care Teams Airset Molder Relationship Specialty Start Date End Date Yossi Landers MD [address] [facility] 110 [place] [address] PCP - General Internal Medicine 11/03/22 Yossi Landers MD [address] [facility] 110 [place] [address] PCP - Humana 11/20/22 Seble Mejia, RN [address] [place] [address] Clinical [facility] Family [facility] 07/29/24 09/09/24 Daniela Alvarado LPN [address] [facility] 110 [place] [address] 09/09/24 documented as of this encounter
--- OUTSIDE RECORDS SUMMARY | 2025-01-18 07:37 | XMS_ITS | Encounter Summary ---
Author Organization [facility] Address [address] [place] [address] Care Team Providers Care Ladle Liner Helper Name Role Phone Yossi Landers MD Primary Care Provider Yossi Landers MD Unavailable [phone] Seble Mejia RN Unavailable Daniela Alvarado LPN Unavailable Encounter Details Date Type Department Care Team (Late st Contact Info) Description 08/05/2023 Abstract [facility] [place] [facility] 112 [facility] 110 [place] [address] Yossi Landers MD 112 [facility] 110 [place], [place] [address] Social History Tobacco Use Types Packs/Day Years [...] often do you attend chur ch or sikh services? Never 11/12/2022 Do you belong to any clubs o r organizations such as hoahaoism groups, unions, fraternal or athletic groups, or [...] Recorded Patient Health Questionnaire-2 Score 0 02/09/2023 [facility] of Occupat ional Health - Occupational [...] Visit NOMS [place] [address] [facility] 110 [place] [address] Yossi Landers MD [address] [facility] 110 [place] [address] documented as of this encounter Visit Diagnoses Not on filedocumented in this encounter Care Teams Ladle Liner Helper Relationship Specialty Start Date End Date Yossi Landers MD [address] [facility] 110 [place] [address] PCP - General Internal Medicine 11/03/22 Yossi Landers MD [address] [facility] 110 [place] [address] PCP - Hum[employer] 11/20/22 Seble Mejia RN [address] [place] [address] [facility] 07/29/24 09/09/24 Daniela Alvarado LPN 112 [place] [address] 09/09/24 documented as of this encounter
--- OUTSIDE RECORDS SUMMARY | 2025-01-18 07:37 | XMS_ITS | Clinical Summary ---
Author Organization [facility] Address [address] [place] [address] Care Team Providers Care Shipping/Receiving Manager Name Role Phone Yossi Landers MD Primary Care Provider [phone] Social History Tobacco Use Types Packs/Day Years Used Date Smoking Tobacco: Never Assessed Comments Unknown Sex and Gender Information Value Date Recorded Sex Assigned at Not on file Legal Sex Female 9:10 PM EDT Gender Identity Not on file Sexual Orientation Not on file Plan of Treatment Upcoming Encounters Date Type Department Care Team (Late st Contact Info) Description 01/18/2025 9:20 AM EDT Office Visit [facility] [address] [place] [address] Nataliya Olivares MD [address] MS[address] [place] [address] Health Maintenance Due Date Last Done Comments Diabetes: Hemoglobin A1C 1940 Medicare Annual Wellness (AWV) 1940 Diabetes: Retinopathy Screening 1952 Depression Screening 1954 Adult Tetanus 1964 Zoster Vaccines (1 of 2) 1992 016, 01/10/2015 Fall Risk Screening 2007 COVID-19 Vaccine (2023-2 5 season) 2024 09/16/2020, 08/25/2020 Diabetes: Urine Protein Screening 01/27/2025 01/28/2024 Influenza Vaccine (#1) 2025 Pneumococcal Vaccine: 50+ Years Completed 01/10/2025, 04/22/2018 HIB Vaccines Aged Out No longer eligi ble based on patient's age to complete this topic HPV Vaccines Aged Out No longer eligi ble based on patient's age to complete this topic IPV Vaccines Aged Out No longer eligi ble based on patient's age to complete this topic Meningococcal B Vaccine Aged Out No l onger eligible based on patient's age to complete this topic Meningococcal Vaccine Aged Out No chuck piper eligible based on patient's age to complete this topic Rotavirus Vaccines Aged Out No longer eligible based on patient's age to complete this topic Insurance [facility] MEDICARE ADVANTAGE Care Teams Shipping/Receiving Manager Relationship Specialty Start Date End Date Yossi Landers MD 112 [facility] 110 [place] [address] PCP - General Internal Medicine 01/17/25
--- OUTSIDE RECORDS SUMMARY | 2025-01-18 07:37 | XMS_ITS | Encounter Summary ---
Author Organization [facility] Address [address] [place] [address] Care Team Providers Care Hospital Scientist Name Role Phone Yossi Landers MD Primary Care Provider [phone] Yossi Landers MD Unavailable [phone] Daniela Alvarado LPN Unavailable Reason for Referral * Medications - Closed Specialty Diagnoses / Procedures Referred By Contac t Referred To Contact Diagnoses Gastroesophageal reflux disease without esophagitis Salud Roach PA 112 [facility] 110 [place] [address] Phone: tel: fax: Referral ID Status Reason Start Date Expiration Date Visits Re quested Visits Authorized [id number] Closed 1 1 Reason for Visit * Reason Comments Med Refill Encounter Details Date Type Department Care Team (Late st Contact Info) Description 01/08/2025 Refill [facility] [place] [facility] 112 [facility] 110 [place] [address] Yossi Landers MD 112 [facility] 110 [place], [place] [id number] Acquired hypothyroidism ; Gastroesophageal reflux disease without [...] Recorded Patient Health Questionnaire-2 Score 2 01/09/2025 [facility] [place] of Occupat ional Health - Occupational Stress [...] PM EDT Office Visit [facility] [place] [facility] [address] [facility] 110 [place] [address] Yossi Landers MD [address] [place] [address] documented as of this encounter Visit Diagnoses Diagnosis Acquired hypothyroidism Unspecified hypothyroidism Gastroesophageal reflux disease without esophagitis Esophageal reflux Mixed hyperlipidemia Mixed hyperlipidemia Essential hypertension Unspecified essential hypertension Depression with anxiety Dysthymic disorder Chronic combined systolic and diastolic congestive heart failure (HCC) documented in this encounter Care Teams Hospital Scientist Relationship Specialty Start Date End Date Yossi Landers MD [address] [facility] 110 [place] [address] PCP - General Internal Medicine 11/03/22 Yossi Landers MD [address] [place] [address] PCP - [employer] 11/20/22 Dnaiela Alvarado LPN [address] [place] [address] 09/09/24 documented as of this encounter
--- OUTSIDE RECORDS SUMMARY | 2025-01-18 07:37 | XMS_ITS | Encounter Summary ---
Author Organization [facility] Address [address] [facility], [address] [place] [address] Care Team Providers Care Nylon Operator Name Role Phone Unavailable Primary Care Provider Unavailabl e Encounter Details Date Type Department Care Team (Late Contact Info) Description 01/02/2025 Abstract [facility] [address] [place] [address] [place] [id number] Alla Kirby APRN - PATROL JUDGE [address] [address] Social History Tobacco Use Types Packs/Day Years [...] Description 01/30/2025 2:00 PM EDT Office Visit [facility] [address] [place] [address] [address] [place], [place] [phone] Alla Kirby, CHLORINATION OPERATOR - PATROL JUDGE [address] [facility] [address] [place] [address] Allyssa/Needs Pessary/Humana *SIZING MACHINE OPERATOR Pack back documented as of this encounter Visit Diagnoses Not on filedocumented in this encounter
--- OUTSIDE RECORDS SUMMARY | 2025-01-18 07:37 | XMS_ITS | Encounter Summary ---
Author Organization [facility] Address [address] [facility] [place] [address] Care Team Providers Care Casting Repairer Name Role Phone Yossi Landers MD Primary Care Provider [phone] Yossi Landers MD Unavailable [phone] Seble Mejia RN Unavailable Daniela Alvarado LPN Unavailable Encounter Details Date Type Department Care Team (Late st Contact Info) Description 01/14/2023 Abstract [facility] [place] [facility] 112 [facility] 110 [place] [address] Yossi Landers MD 112 [facility] 110 [place], [place] [address] Social History Tobacco Use Types Packs/Day Years [...] any clubs o r organizations such as confucianist groups, unions, fraternal or athletic groups, or [...] 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 Not very hard 11/12/2022 [facility] [place] of Occupat ional Health - Occupational Stress [...] Visit [facility] [place] [address] [facility] 110 [place] [address] Yossi Landers MD [address] [facility] 110 [place] [address] documented as of this encounter Visit Diagnoses Not on filedocumented in this encounter Care Teams Casting Repairer Relationship Specialty Start Date End Date Yossi Landers MD [address] [place] [address] PCP - General Internal Medicine 11/03/22 Yossi Landers MD [address] [facility] 110 [place] [address] PCP - Hum[employer] 11/20/22 Seble Mejia, RN [address] [place] [address] [facility] 07/29/24 09/09/24 Daniela Alvarado LPN 112 [facility] 110 [place] [address] 09/09/24 documented as of this encounter
--- OUTSIDE RECORDS SUMMARY | 2025-01-18 07:37 | XMS_ITS | Encounter Summary ---
Author Organization [facility] Address [address] [place] [address] Care Team Providers Care Mattress Renovator Name Role Phone Yossi Landers MD Primary Care Provider Yossi Landers MD Unavailable [phone] Seble Mejia RN Unavailable [phone] Daniela Alvarado LPN Unavailable Encounter Details Date Type Department Care Team (Late st Contact Info) Description 10/13/2023 Abstract [facility] [place] [facility] 112 [facility] 110 [place] [address] Yossi Landers MD 112 [facility] 110 [place], [place] [address] Social History Tobacco Use Types Packs/Day Years [...] often do you attend chur ch or synagogue services? Never 11/12/2022 Do you [...] Questionnaire-2 Score 0 10/12/2023 [facility] - Occupational Stress Questionnaire Answer [...] Visit [facility] [place] [address] [facility] 110 [place] [address] Yossi Landers MD [address] [facility] 110 [place] [address] documented as of this encounter Visit Diagnoses Not on filedocumented in this encounter Care Teams Mattress Renovator Relationship Specialty Start Date End Date Yossi Landers MD [address] [facility] 110 [place] [address] PCP - General Internal Medicine 11/03/22 Yossi Landers MD [address] [facility] 110 [place] [address] PCP - Hum[employer] 11/20/22 Seble Mejia RN [address] [place] [address] [facility] 07/29/24 09/09/24 Daniela Alvarado LPN 112 [place] [address] 09/09/24 documented as of this encounter
--- OUTSIDE RECORDS SUMMARY | 2025-01-18 07:37 | XMS_ITS | Clinical Summary ---
Author Organization [facility] Address [address] [place] [address] Phone Care Team Providers Care Benefits Advisor Name Role Phone Unavailable Primary Care Provider [...] Health Maintenance Due Date Last Done Comments Lipid Panel 1940 DTaP/Tdap/Td Vaccines (1 - Tdap) 1964 Zoster Vaccines (1 of 2) 1992 Bone Density Scan 2007 RSV High Risk: (Elderly (60+) or Population) [...]
--- OUTSIDE RECORDS SUMMARY | 2025-01-18 07:37 | XMS_ITS | Encounter Summary ---
Author Organization [facility] Address [address] [facility] [place] [address] Care Team Providers Care Communications Associate Name Role Phone Yossi Landers MD Primary Care Provider [phone] Yossi Landers MD Unavailable [phone] Seble Mejia RN Unavailable Daniela Alvarado LPN Unavailable Encounter Details Date Type Department Care Team (Late st Contact Info) Description 01/21/2023 Abstract [facility] [place] [facility] 112 [facility] 110 [place] [address] Yossi Landers MD 112 [facility] 110 [place], [place] [address] Social History Tobacco Use Types Packs/Day Years [...] often do you attend chur ch or mormon services? Never 11/12/2022 Do you belong to [...] 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 Not very hard 11/12/2022 [facility] [place] of Occupat ional Health - Occupational Stress [...] Visit [facility] [place] [address] [facility] 110 [place] [address] Yossi Landers MD [address] [facility] 110 [place] [address] documented as of this encounter Visit Diagnoses Not on filedocumented in this encounter Care Teams Communications Associate Relationship Specialty Start Date End Date Yossi Landers MD [address] [facility] 110 [place] [address] PCP - General Internal Medicine 11/03/22 Yossi Landers MD [address] [facility] 110 [place] [address] PCP - Humana 11/20/22 Seble Mejia, RN [address] [place] [address] Clinical [facility] 07/29/24 09/09/24 Daniela Alvarado LPN [address] [place] [address] 09/09/24 documented as of this encounter
--- OUTSIDE RECORDS SUMMARY | 2025-01-18 07:37 | XMS_ITS | Encounter Summary ---
Author Organization [facility] Address [address] [facility] [place] [address] Care Team Providers Care Project Management Advisor Name Role Phone Yossi Landers MD Primary Care Provider [phone] Yossi Landers MD Unavailable [phone] Daniela Alvarado LPN Unavailable Encounter Details Date Type Department Care Team (Late st Contact Info) Description 12/30/2024 Abstract [facility] [address] [facility] [place] [address] Demario Spivey DO [address] [facility] [address] Chinmay Frey, [facility] Social History Tobacco Use Types Packs/Day [...] How often do you attend chur or christian services? Never 11/12/2022 Do you belong to any clubs o r organizations such as religion groups, unions, fraternal or athletic groups, or [...] Recorded Patient Health Questionnaire-2 Score 0 11/07/2024 [facility] [place] of Occupat ional Health - Occupational Stress [...] Visit [facility] [place] [address] [place] [address] Yossi Landers MD [address] [place] [address] documented as of this encounter Visit Diagnoses Not on filedocumented in this encounter Care Teams Project Management Advisor Relationship Specialty Start Date End Date Yossi Landers MD [address] [place] [address] PCP - General Internal Medicine 11/03/22 Yossi Landers MD [address] [facility] 110 [place] [address] PCP - Humana 11/20/22 Daniela Alvarado LPN [address] [address] 09/09/24 documented as of this encounter
--- OUTSIDE RECORDS SUMMARY | 2025-01-18 07:37 | XMS_ITS ---
Author Organization [facility] Address [address] [place] [address] Care Team Providers Care Manager Music Name Role Phone Yossi Landers MD Primary Care Provider [phone] Yossi Landers MD Unavailable [phone] Daniela Alvarado LPN Unavailable 30 Day Monitoring Program Status:Enrolled (Active) Start date:01/12/2025 Enrollment date:01/12/2025 Case Team Name Relationship Phone Daniela Alvarado LPN(Responsible Staff) [phone] Continued Care and Services Coordination
--- OUTSIDE RECORDS SUMMARY | 2025-01-18 07:37 | XMS_ITS | Encounter Summary ---
Author Organization [facility] Address [address] [facility] [place] [address] Care Team Providers Care Shirt Folding Machine Operator Name Role Phone Yossi Landers MD Primary Care Provider [phone] Yossi Landers MD Unavailable [phone] Seble Mejia RN Unavailable [phone] Daniela Alvarado LPN Unavailable Encounter Details Date Type Department Care Team (Late st Contact Info) Description 01/14/2023 Abstract [facility] [place] [facility] 112 [facility] 110 [place] [address] Yossi Landers MD 112 [facility] 110 [place], [place] [address] Social History Tobacco Use Types Packs/Day Years [...] any clubs o r organizations such as mormonism groups, unions, fraternal or athletic groups, or [...] 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 Not very hard 11/12/2022 [facility] [place] of Occupat ional Health - Occupational Stress [...] Visit [facility] [place] [address] [facility] 110 [place] [address] Yossi Landers MD [address] [facility] 110 [place] [address] documented as of this encounter Visit Diagnoses Not on filedocumented in this encounter Care Teams Shirt Folding Machine Operator Relationship Specialty Start Date End Date Yossi Landers MD [address] [place] [address] PCP - General Internal Medicine 11/03/22 Yossi Landers MD [address] [facility] 110 [place] [address] PCP - Hum[employer] 11/20/22 Seble Mejia, RN [address] [place] [address] Clinical [facility] Family [facility] 07/29/24 09/09/24 Daniela Alvarado LPN 112 [facility] 110 [place] [address] 09/09/24 documented as of this encounter
--- OUTSIDE RECORDS SUMMARY | 2025-01-18 07:37 | XMS_ITS | Encounter Summary ---
Author Organization [facility] Address [address] [place] [address] Care Team Providers Care Manager Trading Name Role Phone Yossi Landers MD Primary Care Provider [phone] Yossi Landers MD Unavailable [phone] Seble Mejia RN Unavailable Daniela Alvarado LPN Unavailable Encounter Details Date Type Department Care Team (Late st Contact Info) Description 05/28/2024 Clinisync Result Encounter [facility] External Department Unsolicited Bel Dominique MD [address] [facility] 130 [place] [address] Social History Tobacco Use Types Packs/Day Years [...] Recorded Patient Health Questionnaire-2 Score 0 10/12/2023 [facility] [place] of Occupat ional Health - Occupational Stress [...] 2:15 PM EDT Office Visit [facility] [place] [facility] [address] [facility] 110 [place] [address] Yossi Landers MD [address] [facility] 110 [place] [address] documented as of this encounter Procedures Procedure Name Priority Date/Time Associated Diagnosis Comments US THYROID 05/28/2024 6:22 AM EST documented in this encounter Results * US thyroid (05/28/2024 6:22 AM EST) Anatomical Region Laterality Modality Head, Neck Ultrasound 05/28/2024 6:22 AM EST Narrative 05/28/2024 6:24 [place] [address] Ultrasound Report Signed Patient: JAQUELIN NORWOOD MR#: [id number] : 1940 Acct:[id number] Age/Sex: 84 / F ADM Date: 05/27/24 Loc: US Attending Dr: Bel Dominique M.D. Ordering Physician: Bel Dominique M.D. Date of Service: 05/27/24 Procedure(s): US thyroid Accession Number(s): [id number] cc: YOSSI LANDERS ; Bel Dominique M.D. [address] [address] Patient Name: JAQUELIN NORWOOD MRN: [id number] date: 1940 Sex: F Assigned Patient Location: US Current Patient Location: Accession/Order Number: [id number] Exam Date: 05/27/2024 13:36 Report Date: 05/28/2024 [...] M.D. Signed By: 05/28/24623 DD/ 1 TD/TT: Offal Baler: Procedure Note Radiology, Radiologist, MD - 05/28/2024 [place] [address] Ultrasound Report Signed Patient: JAQUELIN NORWOOD JMR#: [id number] : 1940cct:[id number] Age/Sex: 84 / FADM Date: 05/27/24 Loc: US Attending Dr: Bel Dominique M.D. Ordering Physician: Bel Dominique M.D. Date of Service: 05/27/24 Procedure(s): US thyroid Accession Number(s): [id number] cc: YOSSI LANDERS ; Bel Dominique M.D. The [place] [id number] Patient Name: JAQUELIN NORWOOD MRN: [id number] date: 1940 Sex: F Assigned Patient Location: US Current Patient Location: Accession/Order Number: [id number] Exam Date: 05/27/2024 13:36 Report Date: 05/28/2024 [...] Wagner M.D. Signed By:05/28/24623 DD/ 1 TD/TT: Offal Baler: us Bel Dominique MD IMG US PROCEDURES Final Resul t documented in this encounter Visit Diagnoses Not on filedocumented in this encounter Care Teams Manager Trading Relationship Specialty Start Date End Date Yossi Landers MD [address] [facility] 110 [place] [address] PCP - General Internal Medicine 11/03/22 Yossi Landers MD [address] [facility] 110 [place] [address] PCP - Hum[employer] 11/20/22 Seble Mejia, CIPRIANO [address] [place] [address] Clinical Advocate Family Medicine 07/29/24 09/09/24 Daniela Alvarado LPN [address] [facility] 110 [place] [address] 09/09/24 documented as of this encounter
--- OUTSIDE RECORDS SUMMARY | 2025-01-18 07:37 | XMS_ITS | Encounter Summary ---
Author Organization [facility] Address [address] [facility] [place] [address] Care Team Providers Care Military Aircraft Designer Name Role Phone Unavailable Primary Care Provider Unavailabl e Encounter Details Date Type Department Care Team (Late st Contact Info) Description 01/02/2025 Abstract [facility] Urogynecology and Pelvic Rehabilitation [address] [facility] [address] [place] [address] Elvin Mendez DO [address] [facility] 320 [place] [address] Social History Tobacco Use Types Packs/Day Years [...] Description 01/30/2025 2:00 PM EDT Office Visit [facility] Urogynecology [facility]vic Rehabilitation [address] [facility] [address] [place] [address] Alla Kirby, WHOLESALE PARTS SALESPERSON - RESIDENT SERVICE COORDINATOR [address] [facility] [address] [place] [address] Allyssa/Needs Pessary/Humana *BLACKJACK DEALER Pack back documented as of this encounter Visit Diagnoses Not on filedocumented in this encounter
--- OUTSIDE RECORDS SUMMARY | 2025-01-18 07:37 | XMS_ITS | Encounter Summary ---
Author Organization [facility] Address [address] [place] [address] Care Team Providers Care Unit Leader Name Role Phone Yossi Landers MD Primary Care Provider Yossi Landers MD Unavailable [phone] Seble Mejia RN Unavailable [phone] Daniela Alvarado LPN Unavailable Encounter Details Date Type Department Care Team (Late st Contact Info) Description 10/06/2023 Abstract [facility] [place] [facility] 112 [facility] 110 [place] [address] Yossi Landers MD 112 [facility] 110 [place], [place] [address] Social History Tobacco Use Types Packs/Day Years [...] often do you attend chur ch or congregational services? Never 11/12/2022 Do you belong to [...] [address] [facility] 110 [place] [address] Yossi Landers MD [address] [facility] 110 [place] [address] documented as of this encounter Visit Diagnoses Not on filedocumented in this encounter Care Teams Unit Leader Relationship Specialty Start Date End Date Yossi Landers MD [address] [facility] 110 [place] [address] PCP - General Internal Medicine 11/03/22 Yossi Landers MD [address] [facility] 110 [place] [address] PCP - Hum[employer] 11/20/22 Seble Mejia RN [address] [place] [address] Clinical [facility] 07/29/24 09/09/24 Daniela Alvarado LPN 112 [place] [address] 09/09/24 documented as of this encounter
--- OUTSIDE RECORDS SUMMARY | 2025-01-18 07:37 | XMS_ITS | Encounter Summary ---
Author Organization [facility] Address [address] [place] [address] Care Team Providers Care Drawing In Hand Name Role Phone Yossi Landers MD Primary Care Provider Yossi Landers MD Unavailable [phone] Seble Mejia RN Unavailable [phone] Daniela Alvarado LPN Unavailable Encounter Details Date Type Department Care Team (Late st Contact Info) Description 06/09/[address] [place] [facility] 112 [facility] 110 [place] [address] Yossi Landers MD 112 [facility] 110 [place], [place] [address] Social History Tobacco Use Types Packs/Day Years [...] Recorded Patient Health Questionnaire-2 Score 0 02/09/2023 [facility] of Occupat ional [...] Visit [facility] [place] [address] [facility] 110 [place] [address] Yossi Landers MD [address] [facility] 110 [place] [address] documented as of this encounter Visit Diagnoses Not on filedocumented in this encounter Care Teams Drawing In Hand Relationship Specialty Start Date End Date Yossi Landers MD [address] [facility] 110 [place] [address] PCP - General Internal Medicine 11/03/22 Yossi Landers MD [address] [facility] 110 [place] [address] PCP - Hum[employer] 11/20/22 Seble Mejia, RN [address] [place] [address] Clinical [facility] 07/29/24 09/09/24 Daniela Alvarado LPN 112 [facility] 110 [place], [place] [address] 09/09/24 documented as of this encounter
--- OUTSIDE RECORDS SUMMARY | 2025-01-18 07:37 | XMS_ITS | Encounter Summary ---
Author Organization [facility] Address [address] [place] [address] Care Team Providers Care Flight Radio Operator Name Role Phone Yossi Landers MD Primary Care Provider [phone] Yossi Landers MD Unavailable [phone] Seble Mejia RN Unavailable [phone] Daniela Alvarado LPN Unavailable Encounter Details Date Type Department Care Team (Late st Contact Info) Description 08/27/2023 Abstract [facility] [place] [facility] [address] [facility] 110 [place] [address] Yossi Landers MD 112 [facility] 110 [place], [place] [id number] Social History Tobacco Use Types Packs/Day Years [...] Recorded Patient Health Questionnaire-2 Score 0 02/09/2023 [facility] of Occupat ional [...] Visit [facility] [place] [address] [facility] [address] [place] [address] Yossi Landers MD [address] [facility] [address] [place] [address] documented as of this encounter Visit Diagnoses Not on filedocumented in this encounter Care Teams Flight Radio Operator Relationship Specialty Start Date End Date Yossi Landers MD [address] [facility] 110 [place] [address] PCP - General Internal Medicine 11/03/22 Yossi Landers MD [address] [facility] 110 [place] [address] PCP - [employer] 11/20/22 Seble Mejia RN [address] [place] [address] [facility] 07/29/24 09/09/24 Daniela Alvarado LPN 112 [place] [address] 09/09/24 documented as of this encounter
--- OUTSIDE RECORDS SUMMARY | 2025-01-18 07:37 | XMS_ITS | Clinical Summary ---
Author Organization [facility] Address [address] [place] [address] Care Team Providers Care Pouch Making Machine Operator Name Role Phone Yossi Landers MD Primary Care Provider [phone] Yossi Landers MD Unavailable [phone] Daniela Alvarado LPN Unavailable Allergies Active [...] same time. Active Lancets (OneTouch Delica Plus [id number]) [facility] USE 1 LANCET TO TEST [...] chewable tablet Chew 500 mg Daily Active memantine (Namenda) 10 MG tabletIndications :Cognitive [...] MORNING BEFORE A MEAL 90 tablet 3 Active omeprazole (PriLOSEC) [address] capsuleIndication s:Gastroesophagea l reflux disease without esophagitis TAKE 1 CAPSULE EVERY MORNING BEFORE A MEAL 90 capsule Active Additional Information Patient not taking.Reason: d/c at hospital, Reported on 01/12/2025 atorvastatin (Lipitor) 40 MG tabletIndications :Mixed hyperlipidemia TAKE 1 TABLET EVERY MORNING 90 tablet Active lisinopril 5 MG tabletIndications :Essential hypertension TAKE 1 TABLET EVERY MORNING 90 tablet Active DULoxetine (Cymbalta) [address] capsuleIndication s:Depression with anxiety TAKE 1 CAPSULE EVERY MORNING 90 capsule Active carvedilol (Coreg) 12.5 MG tabletIndications :Chronic 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 180 tablet Active predniSONE (Deltasone) 10 MG tablet Active buPROPion XL (Wellbutrin XL) 150 MG 24 hr tabletIndications :Depression with anxiety Take 1 tablet (150 mg) by mouth in the morning. Do not crush, chew, or split. 30 tablet 2025 Active torsemide (Demadex) 10 MG tabletIndications :Edema Take 1.5 tablets (15 mg) by mouth Daily 45 tablet 2025 Active DULoxetine (Cymbalta) [address] capsuleIndication s:Depression with anxiety TAKE 1 CAPSULE EVERY MORNING 90 capsule 3 024 2024 Discontinued levothyroxine (Synthroid, Levoxyl) 100 MCG tabletIndications :Acquired hypothyroidism TAKE 1 TABLET (100 MCG) BY MOUTH IN THE MORNING. TAKE BEFORE MEALS. 90 tablet 3 /21/ 2025 Discontinued carvedilol (Coreg) 12.5 MG tabletIndications :Chronic [...] not crush or chew.. 025 2024 Discontinued torsemide (Demadex) 10 MG tabletIndications :Chronic combined systolic and diastolic congestive heart failure (HCC) Take 1 tablet (10 mg) by mouth Daily 90 tablet 3 025 2024 Discontinued(R eorder) memantine (Namenda Titration Pack) 28 x 5 MG & 21 x 10 MG tablet packIndications:C ognitive impairment USE DIRECTED FOR FIRST MONTH. 147 each 1 025 2024 Discontinued(D ose adjustment) ALPRAZolam (Xanax) 0.25 MG tabletIndications :Depression with anxiety Take 1 tablet (0.25 mg) by mouth 3 (three) times a day as needed for anxiety 90 tablet 1 025 2024 Discontinued(R eorder) HYDROcodone-aceta minophen (Pennington) 7.5-325 MG tabletIndications :Degenerative lumbar spinal stenosis [...] Cardiomyopathy 11/04/2022 Chronic allergic rhinitis 11/04/2022 Chronic diastolic congestive heart failure 11/04 Chronic constipation 11/04/2022 Coronary artery disease 11/04/2022 [...] without long-term current use of insulin 11/04/2022 Diabetic peripheral neuropat hy associated with type 2 diabetes mellitus 02/23/2019 Ataxia 10/23/2017 Cardiomegaly 04/30/2015 Resolved Problems Problem Noted Date Diagnosed Date Resolved Date Morbid obesity 07/04/2019 12/14/2022 Former smoker 08/15/2017 12/14/2022 Acute exacerbation of chroni c obstructive pulmonary disease 07/16/2016 12/14/2022 Chronic combined systolic an d diastolic heart failure 04/30/2015 12/14/2022 Encounters Date Type Department Care Team Description 01/16/2025 11:30 AM EDT Office Visit [facility] [place] [facility] [address] [place] [address] [place] [address] Yossi Landers MD Panlobular emphysema (HCC) (Primary Dx); Depression with anxiety; Acute on chronic diastolic congestive heart failure (HCC); Chronic combined systolic and diastolic congestive heart failure (HCC) 01/16/2025 Bamboo flowsheet [facility] [place] [facility] [address] [facility] 110 [place] [address] Yossi Landers MD 01/16/2025 Travel 01/12/2025 Abstract [facility] [address] [place] [address] Daniela Alvarado LPN 01/12/2025 Patient Outreach [facility] [address] [place] [address] Daniela Alvarado SEARCH ENGINE MARKETING MANAGER 01/10/2025 Telephone [facility] [place] [facility] [address] [place] [address] [place] [address] Yossi Landers MD 01/09/2025 10:00 AM EDT Office Visit [facility] [place] [facility] [address] [place] [address] [place] [address] Yossi Landers MD Acute on chronic combined systolic and diastolic heart failure (HCC) (Primary Dx); Panlobular emphysema (HCC); Other specified hypotension; Unspecified dementia, unspecified severity, without behavioral disturbance, psychotic disturbance, mood disturbance, and anxiety (HCC) 01/09/2025 Bamboo flowsheet [facility] [place] [facility] [address] [facility] 110 [place] [address] Yossi Landers MD 01/09/2025 Travel 01/08/2025 Refill [facility] [place] [facility] [address] [place] [address] [place] [address] Yossi Landers MD Acquired hypothyroidism ; Gastroesophageal reflux disease without esophagitis; Mixed hyperlipidemia ; Essential hypertension ; Depression with anxiety; Chronic combined systolic and diastolic congestive heart failure (HCC) 01/03/2025 Refill [facility] [place] [facility] [address] [place] [address] [place] [address] Yossi Landers MD Depression with anxiety 12/30/2024 Abstract [facility] [address] [place] [address] Demario Spivey DO 12/29/2024 2:30 PM EDT Office Visit [facility] [address] [place] [address] Yen Auguste PA Vaginal discomfort 12/29/2024 Telephone [facility] [address] [place] [address] Jhonny Janey, SEARCH ENGINE MARKETING MANAGER 12/29/2024 Bamboo flowsheet [facility] [address] [place] [address] Yen Auguste PA 12/19/2024 Patient Outreach [facility] [address] [place], [place] [address] [address] Daniela Alvarado, SEARCH ENGINE MARKETING MANAGER 12/12/2024 Refill [facility] [place] [facility] [address] [place] [address] [place] [address] Salud Roach PA Gastroesophageal reflux disease without esophagitis 12/05/2024 Refill [facility] [place] [facility] [address] [place] [address] [place] [address] Yossi Landers MD Cognitive impairment 12/03/2024 Refill [facility] [place] [facility] [address] [place] [address] [place] [address] Yossi Landers MD Depression with anxiety; Degenerative lumbar spinal stenosis 11/29/2024 Refill [facility] [place] [facility] [address] [place] [address] [place] [address] Yossi Landers MD Cognitive impairment 11/08/2024 Abstract [facility] [place] [facility] [address] [place] [address] [place] [address] Yossi Landers MD 11/07/2024 11:15 AM EDT Office Visit [facility] [place] [facility] [address] [place] [address] [place] [address] Yossi Landers MD Routine general medical examination at health care facility (Primary Dx); ACP (advance care planning); Nausea; Panlobular emphysema (HCC); Chronic combined systolic and diastolic congestive heart failure (HCC); Cognitive impairment 11/07/2024 Abstract [facility] [place] [facility] [address] [place] [address] [place] [address] Yossi Landers MD 11/07/2024 Bamboo flowsheet [facility] [place] [facility] [address] [place] [address] [place] [address] Yossi Landers MD 11/07/2024 Travel 11/02/2024 Refill [facility] [place] [facility] [address] [place] [address] [place] [address] Yossi Landers MD Depression with anxiety; Degenerative lumbar spinal stenosis 11/02/2024 Refill [facility] [place] [facility] [address] [place] [address] [place] [address] Yossi Landers MD Depression with anxiety 10/27/2024 Refill [facility] [address] [place] [address] Salud Roach PA Nausea 10/24/2024 Abstract [facility] [place] [facility] [address] [facility] 110 [place] [address] Yossi Landers MD 10/21/2024 Patient Outreach [facility] [address] [place] [address] Daniela Alvarado LPN 10/21/2024 Telephone [facility] [place] [facility] [address] [place] [address] [place] [address] Salud Roach PA 10/20/2024 Patient Outreach [facility] [address] [place] [address] Daniela Alvarado LPN 10/19/2024 Abstract [facility] [place] [facility] [address] [facility] 110 [place] [address] Yossi Landers MD from Last 3 Months Immunizations Immunization Administration [...] Recorded Patient Health Questionnaire-2 Score 2 01/16/2025 [facility] - Occupational Stress Questionnaire Answer Date [...] Pressure 100/62 01/09/2025 9:55 AM EDT Pulse 70 01/16/2025 11:29 AM EDT Temperature - - Respiratory Rate 17 01/09/2025 9:55 AM EDT Oxygen Saturation 98% 01/16/2025 11:29 AM EDT Inhaled Oxygen Concentration - - Weight 83.9 kg (185 lb) 01/16/2025 11:29 AM EDT Height 165.1 cm (5' 5 ) 01/16/2025 11:29 AM EDT Body Mass Index 30.79 01/16/2025 11:29 AM EDT Plan of Treatment Upcoming Encounters Date Type Department Care Team (Late st Contact Info) Description 01/30/2025 2:15 PM EDT Office Visit [facility] [facility] 112 [facility] 110 [place] [address] Yossi Landers MD 112 [facility] 110 [place] [address] Health Maintenance Due Date Last Done Comments Diabetes: Retinopathy Screening 07/30/2020 9, 04/22/2018 Diabetes: Hemoglobin A1C 12/08/2024 025, 05/02/2024, 12/14/2023, Additional history exists Diabetes: Urine Protein Screening 01/27/2025 024 Influenza Vaccine (#1) 2025 Pneumococcal Vaccine: 65+ Years Completed , 04/22/2018 Procedures Procedure Name Priority Date/Time Associated Diagnosis [...] 01/29/2024 12:29 PM EDT SPLIT 01/20/2024 FROM [id number] Resulting Agency Comment Performing Organization Information Site ID: [id number] Name: [facility] Address: [facility] , [address] [place] [id number] Director: Angel Conway MD Yossi Landers MD LAB URINE ORDERABLES Final Res ult [facility] * Color Fundus Photography - OU - Both Eyes (07/30/2018 12:00 PM EST) Anatomical Region Laterality Modality Head Fundus Photograp hy 07/30/2018 12:0 0 PM EST Narrative 07/30/2018 12:00 PM EST PERFORMED AT [facility] LOCATION:[id number] No retinopathy Procedure Note CONVERSION, GENERIC - 11/05/2022 PERFORMED AT [facility] LOCATION:[id number] No retinopathy Yossi Landers MD OPHTH PHOTOGRAPHY Final Result from Last 3 Months or Most Recently Relevant to Health Maintenance Insurance [facility] MEDICARE ADVANTAGE Care Teams Pouch Making Machine Operator Relationship Specialty Start Date End Date Yossi Landers MD [address] [facility] 110 [place] [address] PCP - General Internal Medicine 11/03/22 Yossi Landers MD [address] [facility] 110 [place] [address] PCP - [employer] 11/20/22 Daniela Alvarado LPN [address] [facility] 110 [place] [address] (work) 09/09/24
--- OUTSIDE RECORDS SUMMARY | 2025-01-18 07:37 | XMS_ITS | Encounter Summary ---
Author Organization [facility] Address [address] [place] [address] Care Team Providers Care Hog Man Name Role Phone Yossi Landers MD Primary Care Provider Yossi Landers MD Unavailable [phone] Seble Mejai RN Unavailable [phone] Daniela Alvarado LPN Unavailable Encounter Details Date Type Department Care Team (Late st Contact Info) Description 08/19/2023 Abstract [facility] [place] [facility] 112 [facility] 110 [place] [address] Yossi Landers MD 112 [facility] 110 [place], [place] [id number] Social History Tobacco Use Types Packs/Day Years [...] any clubs o r organizations such as temple groups, unions, fraternal or athletic groups, or [...] Recorded Patient Health Questionnaire-2 Score 0 02/09/2023 [facility] of Occupat ional Health - Occupational [...] [place] [address] [facility] 110 [place] [address] Yossi Landers MD [address] [facility] 110 [place] [address] documented as of this encounter Visit Diagnoses Not on filedocumented in this encounter Care Teams Hog Man Relationship Specialty Start Date End Date Yossi Landers MD [address] [facility] 110 [place] [address] PCP - General Internal Medicine 11/03/22 Yossi Landers MD [address] [facility] 110 [place] [address] PCP - [employer] 11/20/22 Seble Mejia RN [address] [place] [address] [facility] 07/29/24 09/09/24 Daniela Alvarado LPN 112 [place] [address] 09/09/24 documented as of this encounter
--- OUTSIDE RECORDS SUMMARY | 2025-01-18 07:37 | XMS_ITS | Encounter Summary ---
Author Organization [facility] Address [address] [facility] [place] [address] Care Team Providers Care Transport Nurse Name Role Phone Yossi Landers MD Primary Care Provider [phone] Yossi Landers MD Unavailable [phone] Seble Mejia RN Unavailable [phone] Daniela Alvarado LPN Unavailable Encounter Details Date Type Department Care Team (Late st Contact Info) Description 02/08/2024 Abstract [facility] [place] [facility] 112 [facility] 110 [place] [address] Yossi Landers MD 112 [facility] 110 [place], [place] [id number] Social History Tobacco Use Types Packs/Day Years [...] How often do you attend chur or scientology services? Never 11/12/2022 Do you belong to [...] Recorded Patient Health Questionnaire-2 Score 0 10/12/2023 [facility] of Occupat ional Health - Occupational Stress [...] [address] [facility] 110 [place] [address] Yossi Landers MD [address] [facility] 110 [place] [address] documented as of this encounter Visit Diagnoses Not on filedocumented in this encounter Care Teams Transport Nurse Relationship Specialty Start Date End Date Yossi Landers MD [address] [facility] 110 [place] [address] PCP - General Internal Medicine 11/03/22 Yossi Landers MD [address] [facility] 110 [place] [address] PCP - [employer] 11/20/22 Seble Mejia, RN [address] [place] [address] [facility] 07/29/24 09/09/24 Daniela Alvarado LPN [address] [facility] 110 [place] [address] 09/09/24 documented as of this encounter
--- OUTSIDE RECORDS SUMMARY | 2025-01-18 07:37 | XMS_ITS | Encounter Summary ---
Author Organization [facility] Address [address] [place] [address] Care Team Providers Care Aluminum Welder Name Role Phone Yossi Landers MD Primary Care Provider Yossi Landers MD Unavailable [phone] Seble Mejia RN Unavailable Daniela Alvarado LPN Unavailable Encounter Details Date Type Department Care Team (Late st Contact Info) Description 08/05/2023 Abstract [facility] [place] [facility] 112 [facility] 110 [place] [address] Yossi Landers MD 112 [facility] 110 [place], [place] [id number] Social History Tobacco Use Types Packs/Day Years [...] often do you attend chur ch or yazdanism services? Never 11/12/2022 Do you belong to [...] Patient Health Questionnaire-2 Score 0 02/09/2023 [facility] of Occupat ional Health - [...] Visit [facility] [place] [address] [facility] [address] [place] [address] Yossi Landers MD [address] [facility] [address] [place] [address] documented as of this encounter Visit Diagnoses Not on filedocumented in this encounter Care Teams Aluminum Welder Relationship Specialty Start Date End Date Yossi Landers MD [address] [facility] 110 [place] [address] PCP - General Internal Medicine 11/03/22 Yossi Landers MD [address] [facility] 110 [place] [address] PCP - [employer] 11/20/22 Seble Mejia RN [address] [place] [address] [facility] 07/29/24 09/09/24 Daniela Alvarado LPN 112 [place] [address] 09/09/24 documented as of this encounter
--- OUTSIDE RECORDS SUMMARY | 2025-01-18 07:37 | XMS_ITS | Encounter Summary ---
Author Organization [facility] Address [address] [place] [address] Care Team Providers Care Pan Reclaim Processor Name Role Phone Yossi Landers MD Primary Care Provider [phone] Yossi Landers MD Unavailable [phone] Daniela Alvarado LPN Unavailable Encounter Details Date Type Department Care Team (Late st Contact Info) Description 01/09/2025 Bamboo flowsheet [facility] [place] [facility] [address] [facility] 110 [place] [address] Yossi Landers MD [address] [place] [facility] 110 [place], [place] [address] Social History Tobacco Use Types Packs/Day Years [...] How often do you attend chur or pentecostalism services? Never 11/12/2022 Do you [...] Recorded Patient Health Questionnaire-2 Score 2 01/09/2025 [facility] [place] of Occupat ional Health - Occupational Stress [...] [facility] [place] [address] [facility] 110 [place] [address] Yossi Landers MD [address] [facility] [address] [place], [place] [address] documented as of this encounter Visit Diagnoses Not on filedocumented in this encounter Care Teams Pan Reclaim Processor Relationship Specialty Start Date End Date Yossi Landers MD [address] [facility] [address] [place] [address] PCP - General Internal Medicine 11/03/22 Yossi Landers MD [address] [facility] 110 [place], [place] [address] PCP - [employer] 11/20/22 Daniela Alvarado LPN [address] [facility] 110 [place] [address] 09/09/24 documented as of this encounter
--- OUTSIDE RECORDS SUMMARY | 2025-01-18 07:37 | XMS_ITS | Encounter Summary ---
Author Organization [facility] Address [address] [facility] [place] [address] Care Team Providers Care Yard Operator Name Role Phone Yossi Landers MD Primary Care Provider [phone] Yossi Landers MD Unavailable [phone] Seble Mejia RN Unavailable [phone] Daniela Alvarado LPN Unavailable Encounter Details Date Type Department Care Team (Late st Contact Info) Description 01/27/2023 Abstract [facility] [place] [facility] 112 [facility] 110 [place] [address] Yossi Landers MD 112 [facility] 110 [place], [place] [id number] Social History Tobacco Use Types Packs/Day Years [...] 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 Not very hard 11/12/2022 [facility] [employer] of Occupat ional Health - Occupational Stress [...] Visit [facility] [place] [address] [facility] 110 [place] [address] Yossi Landers MD [address] [facility] 110 [place] [address] documented as of this encounter Visit Diagnoses Not on filedocumented in this encounter Care Teams Yard Operator Relationship Specialty Start Date End Date Yossi Landers MD [address] [facility] 110 [place] [address] PCP - General Internal Medicine 11/03/22 Yossi Landesr MD [address] [facility] [address] [place] [address] PCP - [employer] 11/20/22 Seble Mejia, RN [address] [place] [address] [facility] 07/29/24 09/09/24 Daniela Alvarado LPN [address] [facility] [address] [place] [address] 09/09/24 documented as of this encounter
--- OUTSIDE RECORDS SUMMARY | 2025-01-18 07:37 | XMS_ITS | Encounter Summary ---
Author Organization [facility] Address [address] [place] [facility] [place] [address] Care Team Providers Care Regional Director Of Finance Name Role Phone Yossi Landers MD Primary Care Provider [phone] Yossi Landers MD Unavailable [phone] Seble Mejia RN Unavailable Daniela Alvarado LPN Unavailable Encounter Details Date Type Department Care Team (Late st Contact Info) Description 08/15/2024 Abstract [facility] [place] [facility] 112 [facility] 110 [place] [address] Yossi Landers MD 112 [facility] 110 [place], [place] [id number] Social History Tobacco Use Types Packs/Day Years [...] any clubs o r organizations such as confucianism groups, unions, fraternal or athletic groups, or [...] Recorded Patient Health Questionnaire-2 Score 0 07/25/2024 [facility] [place] of Occupat ional Health - Occupational Stress [...] [address] [facility] 110 [place] [address] Yossi Landers MD [address] [facility] 110 [place] [address] documented as of this encounter Visit Diagnoses Not on filedocumented in this encounter Care Teams Regional Director Of Finance Relationship Specialty Start Date End Date Yossi Landers MD [address] [address] PCP - General Internal Medicine 11/03/22 Yossi Landers MD [address] [facility] [address] [place] [address] PCP - [employer] 11/20/22 Seble Mejia, CIPRIANO [address] [place] [address] [facility] 07/29/24 09/09/24 Daniela Alvarado LPN [address] [address] 09/09/24 documented as of this encounter
--- OUTSIDE RECORDS SUMMARY | 2025-01-18 07:37 | XMS_ITS | Encounter Summary ---
Author Organization [facility] Address [address] [place] [address] Care Team Providers Care Fruit Grower Name Role Phone Yossi Landers MD Primary Care Provider [phone] Yossi Landers MD Unavailable [phone] Seble Mejia RN Unavailable [phone] Daniela Alvarado LPN Unavailable Encounter Details Date Type Department Care Team (Late st Contact Info) Description 08/05/2023 Orders Only [facility] [place] [facility] [address] [place] [address] [place] [address] A, Unknown Practice [address] [place] [address] Social History Tobacco Use Types [...] EDT Office Visit [facility] [place] 112 [facility] 110 [place] [address] Yossi Landers MD 112 [facility] 110 [place] [address] documented as of this encounter Procedures Procedure [...] on filedocumented in this encounter Care Teams Fruit Grower Relationship Specialty Start Date End Date Yossi Landers MD [address] [facility] 110 [place] [address] PCP - General Internal Medicine 11/03/22 Yossi Landers MD [address] [facility] 110 [place] [address] PCP - [employer] 11/20/22 Seble Mejia, RN [address] [facility] [place] [address] Clinical Advocate Family Medicine 07/29/24 09/09/24 Daniela Alvarado LPN [address] [address] 09/09/24 documented as of this encounter
--- OUTSIDE RECORDS SUMMARY | 2025-01-18 07:37 | XMS_ITS | Encounter Summary ---
Author Organization [facility] Address [address] [place] [address] Care Team Providers Care Senior Administrative Assistant Name Role Phone Yossi Landers MD Primary Care Provider [phone] Yossi Landers MD Unavailable [phone] Seble Mejia RN Unavailable [phone] Daniela Alvarado LPN Unavailable Encounter Details Date Type Department Care Team (Late st Contact Info) Description 08/12/2023 Abstract [facility] [place] [facility] 112 [facility] 110 [place] [address] Yossi Landers MD 112 [facility] 110 [place], [place] [id number] Social History Tobacco Use Types Packs/Day Years [...] often do you attend chur ch or temple services? Never 11/12/2022 Do you belong to [...] Visit [facility] [place] [address] [facility] 110 [place] [address] Yossi Landers MD [address] [facility] 110 [place] [address] documented as of this encounter Visit Diagnoses Not on filedocumented in this encounter Care Teams Senior Administrative Assistant Relationship Specialty Start Date End Date Yossi Landers MD [address] [facility] 110 [place] [address] PCP - General Internal Medicine 11/03/22 Yossi Landers MD [address] [facility] 110 [place] [address] PCP - [employer] 11/20/22 Seble Mejia RN [address] [place] [address] Clinical Advocate Family Medicine 07/29/24 09/09/24 Daniela Alvarado LPN 112 [place] [address] 09/09/24 documented as of this encounter
--- OUTSIDE RECORDS SUMMARY | 2025-01-18 07:37 | XMS_ITS | Encounter Summary ---
Author Organization [facility] Address [address] [place] [address] Care Team Providers Care Bakery Technician Name Role Phone Yossi Landers MD Primary Care Provider [phone] Yossi Landers MD Unavailable Seble Mejia RN Unavailable Daniela Alvarado LPN Unavailable Encounter Details Date Type Department Care Team (Late st Contact Info) Description 05/27/2024 Clinisync Result Encounter [facility] External Department Unsolicited Yossi Landers MD [address] [facility] 110 [place] [address] Social History Tobacco Use Types Packs/Day Years [...] week 11/12/2022 How often do you attend up health system or faith services? Never 11/12/2022 Do you [...] Questionnaire-2 Score 0 10/12/2023 [facility] of Occupat [...] PM EDT Office Visit [facility] [place] [facility] [address] [facility] 110 [place] [address] Yossi Landers MD [address] [facility] 110 [place] [address] documented as of this encounter Procedures Procedure Name Priority Date/Time Associated Diagnosis Comments CA ECHO DOPPLER COMPLETE 05/27/2024 6:01 PM EST documented in this encounter Results * CA ECHO DOPPLER COMPLETE (05/27/2024 6:01 PM EST) Anatomical Region Laterality Modality Other 05/27/2024 6:01 PM EST Narrative 05/27/2024 6:02 PM EST [address] [address] Cardiology Report Signed Patient: JAQUELIN NORWOOD MR#: [id number] : 1940 Acct:[id number] Age/Sex: 84 / F ADM Date: 05/27/24 Loc: CARD Attending Dr: YOSSI LANDERS Ordering Physician: YOSSI LANDERS Date of Service: 05/27/24 Procedure(s): CA echo doppler complete Accession Number(s): [id number] cc: JORDANMATTHEWYOSSI Patient Name: JAQUELIN NORWOOD MR#: [id number] : 1940 Exam Date: 05/27/2024 Ordering Doctor: [...] M.D. Signed By: 05/27/241801 DD/ 00 TD/TT: Lumpia Wrapper Maker: Procedure Note Radiology, Radiologist, - 05/27/2024 [place] [address] Cardiology Report Signed Patient: JAQUELIN NORWOOD JMR#: [id number] : 1940cct:[id number] Age/Sex: 84 / FADM Date: 05/27/24 Loc: CARD Attending Dr: YOSSI LANDERS Ordering Physician: YOSSI LANDERS Date of Service: 05/27/24 Procedure(s): CA echo doppler complete Accession Number(s): [id number] cc: JORDANMATTHEWYOSSI Patient Name: JAQUELIN NORWOOD MR#: [id number] : 1940 Exam Date: 05/27/2024 Ordering Doctor: [...] 3.05 cm Aortic Valve AoV Area (Peak Ipotr): 1.35 cm2, 1.35 cm2 AoV Area (VTI): [...] 18:01 Dictated By: Nataliya Olivares M.D. Signed By:05/27/241801 DD/ 00 TD/TT: Lumpia Wrapper Maker: us Yossi Landers MD [facility] Final Result documented in this encounter Visit Diagnoses Not on filedocumented in this encounter Care Teams Bakery Technician Relationship Specialty Start Date End Date Yossi Landers MD [address] [facility] 110 [place] [address] PCP - General Internal Medicine 11/03/22 Yossi Landers MD [address] [facility] 110 [place] [address] PCP - [employer] 11/20/22 Seble Mejia, CIPRIANO [address] [place] [address] Clinical Advocate Family Medicine 07/29/24 09/09/24 Daniela Alvarado LPN [address] [facility] 110 [place] [address] 09/09/24 documented as of this encounter
--- OUTSIDE RECORDS SUMMARY | 2025-01-18 07:37 | XMS_ITS | Encounter Summary ---
Author Organization [facility] Address [address] [place] [address] Care Team Providers Care Outreach Rep Name Role Phone Yossi Landers MD Primary Care Provider Yossi Landers MD Unavailable [phone] Seble Mejia RN Unavailable Daniela Alvarado LPN Unavailable Encounter Details Date Type Department Care Team (Late st Contact Info) Description 08/19/2023 Abstract [facility] [place] [facility] 112 [facility] 110 [place] [address] Yossi Landers MD 112 [facility] 110 [place], [place] [id number] Social History Tobacco Use Types Packs/Day Years [...] Health Questionnaire-2 Score 0 02/09/2023 [facility] of Occupat ional Health - [...] Visit [facility] [place] [address] [facility] 110 [place] [address] Yossi Landers MD [address] [facility] 110 [place] [address] documented as of this encounter Visit Diagnoses Not on filedocumented in this encounter Care Teams Outreach Rep Relationship Specialty Start Date End Date Yossi Landers MD [address] [facility] 110 [place] [address] PCP - General Internal Medicine 11/03/22 Yosis Landers MD [address] [facility] 110 [place] [address] PCP - [employer] 11/20/22 Seble Mejia RN [address] [place] [address] Clinical Advocate Family Medicine 07/29/24 09/09/24 Daniela Alvarado LPN 112 [place] [address] 09/09/24 documented as of this encounter
--- OUTSIDE RECORDS SUMMARY | 2025-01-18 07:37 | XMS_ITS | Clinical Summary ---
Author Organization [facility] Address [facility], [address] [place] [address] Care Team Providers Care Optical Manager Name Role Phone Unavailable Primary Care Provider Unavailabl e Encounters Date Type Department Care Team Description 01/02/2025 Abstract [facility] [address] [place] [address] [address] [place] [address] Alla Kirby APRN - RON 01/02/2025 Abstract [facility] [address] [place] [address] [address] [place], [place] [id number] Elvin Mendez DO from Last 3 Months [...] Description 01/30/2025 2:00 PM EDT Office Visit [facility] [address] [facility] [address] [place] [address] Alla Kirby, PLASTIC PARTS FABRICATOR TRIMMER - RESISTOR TESTER [address] [facility] [address] [place] [address] Allyssa/Needs Pessary/[employer] *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
--- OUTSIDE RECORDS SUMMARY | 2025-01-18 07:37 | XMS_ITS | Encounter Summary ---
Author Organization [facility] Address [address] [place] [address] Care Team Providers Care Claims Customer Service Representative Name Role Phone Yossi Landers MD Primary Care Provider Yossi Landers MD Unavailable [phone] Seble Mejia RN Unavailable Daniela Alvarado LPN Unavailable Encounter Details Date Type Department Care Team (Late st Contact Info) Description 10/01/2023 Abstract [facility] [place] [facility] 112 [facility] 110 [place] [address] Yossi Landers MD 112 [facility] 110 [place], [place] [address] Social History Tobacco Use Types Packs/Day Years [...] often do you attend chur ch or quaker services? Never 11/12/2022 Do you belong to [...] Recorded Patient Health Questionnaire-2 Score 0 02/09/2023 [facility] of Occupat ional Health [...] [address] [facility] 110 [place] [address] Yossi Landers MD [address] [facility] 110 [place] [address] documented as of this encounter Visit Diagnoses Not on filedocumented in this encounter Care Teams Claims Customer Service Representative Relationship Specialty Start Date End Date Yossi Landers MD [address] [facility] 110 [place] [address] PCP - General Internal Medicine 11/03/22 Yossi Landers MD [address] [facility] 110 [place] [address] PCP - [employer] 11/20/22 Seble Mejia RN [address] [place] [address] Clinical [facility] Family Medicine 07/29/24 09/09/24 Daniela Alvarado LPN 112 [place] [address] 09/09/24 documented as of this encounter
--- OUTSIDE RECORDS SUMMARY | 2025-01-18 07:37 | XMS_ITS | Encounter Summary ---
Author Organization [facility] Address [address] [place] [address] Care Team Providers Care Application Development Project Manager Name Role Phone Yossi Landers MD Primary Care Provider [phone] Yossi Landers MD Unavailable [phone] Daniela Alvarado LPN Unavailable Encounter Details [...] How often do you attend chur or roman catholic services? Never 11/12/2022 Do you belong to any clubs o r organizations such as baptist groups, unions, fraternal or athletic groups, or [...] Recorded Patient Health Questionnaire-2 Score 2 01/09/2025 [facility] Questionnaire Answer Date [...] 2:15 PM EDT Office Visit [facility] [place] [facility] [address] [place] [address] [place] [address] Yossi Landers MD [address] [facility] [address] [place] [address] documented as of this encounter Visit Diagnoses Not on filedocumented in this encounter Care Teams Application Development Project Manager Relationship Specialty Start Date End Date Yossi Landers MD [address] [facility] [address] [place] [address] PCP - General Internal Medicine 11/03/22 Yossi Landers MD [address] [facility] [address] [place] [address] PCP - [employer] 11/20/22 Daniela Alvarado LPN [address] [facility] [address] [place] [address] 09/09/24 documented as of this encounter
--- OUTSIDE RECORDS SUMMARY | 2025-01-18 07:38 | XMS_ITS | Encounter Summary ---
Author Organization [facility] Address [address] [place] [address] Care Team Providers Care Manager Compliance Name Role Phone Yossi Landers MD Primary Care Provider [phone] Yossi Landers MD Unavailable [phone] Daniela Alvarado LPN Unavailable Encounter Details Date Type Department Care Team (Late st Contact Info) Description 10/10/2024 Abstract [facility] [place] [facility] [address] [facility] 110 [place] [address] Yossi Landers MD 112 [facility] 110 [place], [place] [address] Social History Tobacco Use Types Packs/Day Years [...] How often do you attend chur or worship services? Never 11/12/2022 Do you belong to any clubs o r organizations such as anabaptism groups, unions, fraternal or athletic groups, or [...] Recorded Patient Health Questionnaire-2 Score 0 10/07/2024 [facility] of Occupat ional Health - Occupational Stress [...] PM EDT Office Visit [facility] [place] [facility] [address] [facility] [address] [place] [address] Yossi Landers MD [address] [facility] 110 [place], [place] [address] documented as of this encounter Visit Diagnoses Not on filedocumented in this encounter Care Teams Manager Compliance Relationship Specialty Start Date End Date Yossi Landers MD [address] [facility] [address] [place] [address] PCP - General Internal Medicine 11/03/22 Yossi Landers MD [address] [facility] 110 [place] [address] PCP - [employer] 11/20/22 Daniela Alvarado LPN [address] [address] 09/09/24 documented as of this encounter
--- OUTSIDE RECORDS SUMMARY | 2025-01-18 07:38 | XMS_ITS | Encounter Summary ---
Author Organization [facility] Address [address] [place] [address] Care Team Providers Care Abrasive Mixer Helper Name Role Phone Yossi Landers MD Primary Care Provider [phone] Yossi Landers MD Unavailable [phone] Seble Mejia RN Unavailable Daniela Alvarado LPN Unavailable Encounter Details Date Type Department Care Team (Late st Contact Info) Description 12/29/2023 Orders Only [facility] [place] [facility] [address] [facility] 110 [place] [address] Unallocated, Noms Provider, [address] [place] [address] Social History Tobacco Use Types Packs/Day Years [...] Recorded Patient Health Questionnaire-2 Score 0 10/12/2023 [facility] of Occupat ional Health - Occupational [...] Visit [facility] [place] [address] [facility] 110 [place] [address] Yossi Landers MD [address] [email or web address] 110 [place], [place] [address] documented as of this encounter Procedures Procedure Name Priority Date/Time Associated Diagnosis Comments ELECTROCARDIOGRAM REPORT Routine 024 9:42 AM EDT documented in this encounter Results * Electrocardiogram Report (12/28/2023 9:42 AM EDT) us Noms Provider Unallocated MD IN CLINIC/BEDSIDE O RDERABLES Final Result documented in this encounter Visit Diagnoses Not on filedocumented in this encounter Care Teams Abrasive Mixer Helper Relationship Specialty Start Date End Date Yossi Landers MD [address] [facility] [address] [place], [place] [address] PCP - General Internal Medicine 11/03/22 Yossi Landers MD [address] [facility] 110 [place] [address] PCP - [employer] 11/20/22 Seble Mejia, RN [address] [place], [place] [address] Clinical Adv[facility] Family Medicine 07/29/24 09/09/24 Daniela Alvarado LPN [address] [address] 09/09/24 documented as of this encounter
--- OUTSIDE RECORDS SUMMARY | 2025-01-18 07:38 | XMS_ITS | Encounter Summary ---
Author Organization [facility] Address [address] [place] [address] Care Team Providers Care Retail Coverage Merchandiser Name Role Phone Yossi Landers MD Primary Care Provider Yossi Landers MD Unavailable [phone] Seble Mejia RN Unavailable Daniela Alvarado LPN Unavailable Encounter Details Date Type Department Care Team (Late st Contact Info) Description 12/22/2023 Abstract [facility] [place] [facility] 112 [facility] 110 [place] [address] Yossi Landers MD 112 [facility] 110 [place], [place] [address] Social History Tobacco Use Types Packs/Day Years [...] often do you attend chur ch or episcopal services? Never 11/12/2022 Do you belong to [...] Questionnaire-2 Score 0 10/12/2023 [facility] - Occupational Stress Questionnaire [...] [address] [facility] [address] [place] [address] Yossi Landers MD [address] [facility] 110 [place] [address] documented as of this encounter Visit Diagnoses Not on filedocumented in this encounter Care Teams Retail Coverage Merchandiser Relationship Specialty Start Date End Date oYssi Landers MD [address] [facility] [address] [place] [address] PCP - General Internal Medicine 11/03/22 Yossi Landers MD [address] [facility] [address] [place] [address] PCP - [employer] 11/20/22 Seble Mejia RN [address] [place] [address] Clinical Advocate Family Medicine 07/29/24 09/09/24 Daniela Alvarado LPN 112 [place] [address] 09/09/24 documented as of this encounter
--- OUTSIDE RECORDS SUMMARY | 2025-01-18 07:38 | XMS_ITS | CCD ---
Author Organization [facility] Care Team Providers Care Oncology Nurse Name Role Phone Unavailable Unavailable Libra, Dr. Durbin Attending Unavaila tere Landers II, Yossi Meyer Primary Care Unavail able Libra, Dr. Durbin Referring Unavaila tere Hernandez, Dr. Durbin Attending Unavaila tere Landers II, Yossi Meyer Primary Care Unavail able CARMEN ., TANYA Attending Unavailable CARMEN ., TANYA Admitting Unavailable SITACHNY ., PHILIP HERNANDEZ Consulting Unavailabl darien LANDERS, DR TERRAZAS Primary Care Unavailable AHKAELA HEWITT Consulting Unavailable JUAN M ., STELLA Consulting Unavailable SISTER, SYLVESTER Consulting Unavailable CARMEN ., TANYA Consulting Unavailable PAVEL SANCHEZ Consulting Unavailable ALLISON MCCALL Consulting Unavailable NASHUL, DR TERRAZAS Consulting Unavailable ANSHUL, DR TERRAZAS Primary Care Unavailable ANSHUL, DR TERRAZAS Attending Unavailable ANSHLU, DR TERRAZAS Admitting Unavailable ZIEBJASPER, DR AMAYA Cleveland Consulting Unavailable ANSHUL, DR TERRAZAS Consulting Unavailable ANSHUL, DR TERRAZAS Primary Care Unavailable ANSHUL, DR TERRAZAS Attending Unavailable ANSHUL, DR TERRAZAS Admitting Unavailable BARRIE, DR CARLOS Mcghee Consulting Unavailable ISIAHSBEL Consulting Unavailable ANSHUL, DR TERRAZAS Primary Care Unavailable SANJEEVMISBEL Attending Unavailable TIMMIS, BEL Admitting Unavailable ZIEBER, DR AMAYA Cleveland Consulting Unavailable TIMRUDYSBEL Consulting Unavailable ANSHUL, DR TERRAZAS Primary Care Unavailable TIMMIS, BEL Attending Unavailable TIMMIS, BEL Admitting Unavailable BARRIE, DR CARLOS Mcghee Consulting Unavailable KARYN WASHINGTON Consulting Unavailable ANSHUL, DR TERRAZAS Primary Care Unavailable HEMMER, DR CAN Bryant Attending Unavailable HEMMER, DR CAN Bryant Admitting Unavailable HEMMER, DR CAN Bryant Consulting Unavailable LAYNE TERRAZAS Consulting Unavailable LAYNE TERRAZAS Attending Unavailable LAYNE TERRAZAS Admitting Unavailable DR YOSSI LANDERS Primary Care Unavailable DUANE BILLINGSLEY Consulting Unavailable AMAYA FRENCH Consulting Unavailable VIKY WILLIAMSON Consulting Unavailable REED LYNNE Consulting Unavailable Yossi Landers MD Primary Care Provider [phone] Yossi Landers MD Unavailable YOSSI LANDERS Primary Care Physician [phone] Mandi Glez AAjith Attending Unavailable Mouchli Mohamad A. Referring Unavailable Mouchli, Mohamad A. Admitting Unavailable Mouchli Mohamad A. Attending Unavailable Mouchjalen, Mohamad A. Admitting Unavailable Mouchli Mohamad AAjith Attending Unavailable Ellen Glezamad AAjith Referring Unavailable Roberto COTA, Seble Unavailable [phone] Yossi Landers II Primary Care Provider Elmer Greene DO Attending Provider [phone] Alvarado PLATFORM ENGINEER, Daniela Unavailable Unavailable Yossi Landers II Primary Care Provider Elmer Greene DO Attending Provider Elías Graham MD Attending Provider [phone] Elmer Greene Attending Unavailable Elmer Greene Admitting Unavailable Yossi Landers Primary Care Unavailable Elías Graham Attending Unavailable Elías Graham Admitting Unavailable Alvarado PLATFORM ENGINEER, Daniela Unavailable BEL OJEDA Attending Unavailable ALESSANDRO LEVI Attending Unavailable YOSSI LANDERS B Attending Unavailable KRISTEN WILLIAM Attending Unavailable LANDERS, YOSSI B Referring Unavailable LANDERS, YOSSI B Attending Unavailable YOSSI LANDERS B Attending Unavailable CAN MASON Attending Unavailable HEMCAN HE Attending Unavailable YOSSI LANDERS B Attending Unavailable YEN AUGUSTE Attending Unavailable ANSHUL, YOSSI B Attending Unavailable ANSHUL, YOSSI B Attending Unavailable ANSHUL YOSSI B Attending Unavailable HEMCAN HE Attending Unavailable ALESSANDRO LEVI Attending Unavailable CAN MASON Referring Unavailable ALESSANDRO LEVI Attending Unavailable ANSHUL YOSSI B Attending Unavailable ANSHUL YOSSI B Referring Unavailable ANSHUL YOSSI B Attending Unavailable ANSHUL YOSSI B Attending Unavailable Allergies Allergy Classification Reported Allergen(s) Allergy Type Date of Onset Reaction(s) Facility (20 sources) Naproxen; Translations: [Aleve TABS] Drug Allergy 1 Edema (finding), Unknown (qualifier value), Swelling [facility] DO Work Phone: Comment on above: Gogo oral edema (7 sources) rofecoxib; Translations: [Vioxx] Drug Allergy Anaphylaxis [facility] Repository (1 source) Benztropine Drug Allergy 1 [facility] Repository (1 source) Naproxen Drug Allergy 3 [facility] Repository (5 sources) Naproxen; Translations: [naproxen] Drug Allergy 9 Swelling of Lip/Tongue/Throat, gogo oral edema [facility] Repository (1 source) rofecoxib Drug Allergy 3 [facility] Repository (20 sources) Benztropine; Translations: [benztropine] Drug Allergy 0 Other, Hallucinations (finding), Unknown (qualifier value) [facility] Healthcare (20 sources) Benztropine; Translations: [Benztropine Mesylate] Drug Allergy 0 Hallucinations [facility] Work Phone: Comment on above: Onset Date: 11/30/19 20 (5 sources) rofecoxib; Translations: [rofecoxib] Drug Allergy 9 Unknown (qualifier value) [facility] (20 sources) rofecoxib Drug Allergy 4 [facility] Healthcare Medications Current Medications Medication Drug Class(es) Dates Sig (Normalized) Sig (Original) acetaminophen 325 mg / HYDROcodone bitartrate 7.5 mg oral tablet (20 sources) Opioid Agonist Start: 12-05-2024 End: 01-04-2025 take 1 tablet by mouth every six hours for pain HYDROcodone-acetami nophen ([place]) 7.5-325 MG tablet Indications: Degenerative lumbar spinal stenosis Take 1 tablet by mouth every 6 (six) hours if needed for severe pain 120 tablet 12/05/2024 01/04/2025 Active Start: 11-02-2024 End: 12-03-2024 take 1 tablet by mouth every six hours for pain HYDROcodone-acetaminophen ([place]) 7.5-32 5 MG tablet Indications: Degenerative lumbar spinal stenosis Take 1 tablet by mouth every 6 (six) hours if needed for severe pain 120 tablet 11/02/2024 12/03/2024 Discontinued (Reorder) Start: 08-08-2024 End: 10-05-2024 take 1 tablet by mouth every six hours for pain HYDROcodone-acetaminophen ([place]) 7.5-32 5 MG tablet Indications: Degenerative lumbar spinal stenosis Take 1 tablet by mouth every 6 (six) hours if needed for severe pain 120 tablet 09/05/2024 10/05/2024 Active Start: 06-01-2024 End: 08-06-2024 take 1 tablet by mouth every six hours for pain HYDROcodone-acetaminophen ([place]) 7.5-32 5 MG tablet Indications: Degenerative lumbar spinal stenosis Take 1 tablet by mouth every 6 (six) hours if needed for severe pain 120 tablet 07/04/2024 08/06/2024 Discontinued (Reorder) Start: 03-02-2024 take 1 tablet by sky th every six hours for pain HYDROcodone-acetaminophen ([place]) 7.5-32 5 MG tablet Indications: Degenerative lumbar spinal stenosis Take 1 tablet by mouth every 6 (six) hours if needed for severe pain 120 tablet 03/02/2024 Active Start: 01-28-2024 End: 07-01-2024 take 1 tablet by mouth every six hours for pain HYDROcodone-acetaminophen ([place]) 7.5-32 5 MG tablet Indications: Degenerative lumbar spinal stenosis Take 1 tablet by mouth every 6 (six) hours if needed for severe pain 120 tablet 06/01/2024 07/01/2024 Active Start: 07-01-2023 End: 08-03-2023 take 1 tablet by mouth every six hours for pain HYDROcodone-acetaminophen ([place]) 7.5-32 5 MG tablet Indications: Degenerative lumbar [...] as needed for Pain June 29, 2018 1:00am albuterol 0.83 mg/ml inhalation solution (20 sources) beta2-Adrenergic Agonist Start: 09-29-2024 End: 09-29-2024 albuterol (2.5 MG/3ML) 0.083% nebulizer solution Indications: Panlobular emphysema (HCC) Take 3 mL (2.5 mg) [...] INHALATION Three times daily June 29, 2018 1:00am take 2 puff(s) by in halation every [...] tablet (20 sources) Benzodiazepine Start: 09-07-2024 End: 02-03-2025 take 1 tablet by mouth three times daily as needed for anxiety ALPRAZolam (Xanax) 0.25 MG tablet Indications: Depression with anxiety Take 1 tablet (0.25 mg) by mouth 3 (three) times a day as needed for anxiety 90 tablet 01/03/2025 02/02/2025 Active Start: 08-08-2024 End: 09-07-2024 take 1 [...] as needed for Anxiety June 29, 2018 1:00am aspirin 81 mg delayed release oral tablet (20 sources) Platelet Aggregation Inhibitor, Nonsteroidal Anti-inflammatory Drug Start: 06-29-2018 take 1 tablet by mouth once daily Aspirin 81 mg Tablet,Delayed Release (Dr/Ec) Active 81 MG PO Daily June 29, 2018 1:00am atorvastatin 40 mg oral tablet (20 sources) HMG-CoA Reductase Inhibitor Start: 01-09-2025 atorvastatin (Lipitor) 40 MG tablet Indications: Mixed hyperlipidemia TAKE 1 TABLET EVERY MORNING 90 tablet 3 01/09/2025 Active Start: 01-09-2025 atorvastatin ( Lipitor) 40 MG tablet Indications: Mixed hyperlipidemia TAKE 1 TABLET EVERY MORNING 90 tablet 3 01/09/2025 Active Start: 02-09-2024 End: 01-09-2025 atorvastatin (Lipitor) 40 MG tablet Indications: Mixed hyperlipidemia TAKE 1 TABLET EVERY MORNING 90 tablet 3 02/09/2024 01/09/2025 Discontinued Start: 06-29-2018 End: 11-24-2023 atorvastatin (Lipitor) 40 MG tablet Indications: Mixed hyperlipidemia (CMS/HCC) TAKE 1 TABLET EVERY MORNING 90 tablet 3 02/09/2024 Active azithromycin 250 mg oral tablet (6 sources) Macrolide Antimicrobial Start: 10-07-2024 End: 10-12-2024 take 2 tablets by mouth once daily, then take 1 tablet by mouth once daily azithromycin (Zithromax) 250 MG tablet Indications: Community acquired pneumonia, unspecified laterality Take 2 tablets (500 mg) by mouth Daily for 1 day, THEN 1 tablet (250 mg) Daily for 4 days. 6 tablet 10/07/2024 10/12/2024 Active Start: 09-27-2024 End: 10-02-2024 azithromycin (Zithromax) 250 MG tablet Take 250 mg by mouth Daily Take 500mg day 1 and then 250mg for 4 days 09/27/2024 10/02/2024 Active Blood Glucose Monitoring Sup pl (ONE [...] 11/05/2022 Active brexpiprazole 2 mg oral tablet (9 sources) Atypical Antipsychotic Start: 11-24-2022 End: 11-24-2023 [...] 1 TAB PO Daily June 29, 2018 1:00am 120 actuat budesonide 0.16 mg/actuat / formoterol fumarate 0.0048 mg/actuat / glycopyrrolate 0.009 mg/actuat metered dose inhaler (20 sources) Corticosteroid, beta2-Adrenergic Agonist Start: 05-02-2024 End: 05-02-2025 take 2 puff(s) by inhalation in the morning Kzjaebf-Korqgjichjo-Jhlepgybop (Breztri Aerosphere) 160-9-4.8 MCG/ACT aerosol Indications: Panlobular emphysema (CMS/HCC) Inhale 2 puffs in the morning and 2 puffs before bedtime. 10.7 g 11 05/02/2024 09/29/2024 Discontinued 24 hr buPROPion hydrochloride 150 mg extended release oral tablet (20 sources) Aminoketone Start: 01-16-2025 End: 01-16-2026 take 1 tablet by mouth every twenty-four hours in the morning buPROPion XL (Wellbutrin XL) 150 MG 24 hr tablet Indications: Depression with anxiety Take 1 tablet (150 mg) by mouth in the morning. Do not crush, chew, or split. 30 tablet 11 01/16/2025 01/16/2026 Active Start: 01-25-2024 End: 06-10-2024 take 1 tablet [...] : 01-May-2021 Active Start: 06-29-2018 take 1 tablet by sky th twice daily Bupropion Hcl 150 mg tablet sustained-release 12 hr Active 1 TAB PO Twice daily June 29, 2018 1:00am calcium carbonate 500 mg chewable tablet (19 sources) calcium carbonat e (Tums) 500 MG chewable tablet Chew 500 mg Daily Active carvedilol 12.5 mg oral tablet (20 sources) alpha-Adrenergic Ana, beta-Adrenergic Ana Start: 01-09-2025 take 1 tablet by mouth in the morning carvedilol (Coreg) 12.5 MG tablet Indications: Chronic 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 180 tablet 3 01/09/2025 Active Start: 01-09-2025 take 1 tablet by sky th in the morning carvedilol (Coreg) 12.5 MG tablet Indications: Chronic 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 180 tablet 3 01/09/2025 Active Start: 06-29-2018 End: 01-09-2025 take 1 tablet by mouth in the morning carvedilol (Coreg) 12.5 MG tablet Indications: Chronic 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 180 tablet 3 12/16/2023 01/09/2025 Discontinued ciprofloxacin 500 mg oral tablet (2 sources) [...] sources) Serotonin and Norepinephrine Reuptake Inhibitor Start: 01-09-2025 DULoxetine (Cymbalta) [address] capsule Indications: Depression with anxiety TAKE 1 CAPSULE EVERY MORNING 90 capsule 3 01/09/2025 Active Start: 01-09-2025 DULoxetine (Cy mbalta) [address] capsule Indications: Depression with anxiety TAKE 1 CAPSULE EVERY MORNING 90 capsule 3 01/09/2025 Active Start: 12-16-2023 End: 01-09-2025 DULoxetine (Cymbalta) [address] capsule Indications: Depression with anxiety TAKE 1 CAPSULE EVERY MORNING 90 capsule 3 12/16/2023 01/09/2025 Discontinued Start: 11-24-2022 End: 11-24-2023 take 1 capsule by mouth in the morning DULoxetine (Cymbalta) [address] capsule Indications: Depression with anxiety Take 1 capsule (60 mg) by mouth in the morning. 90 capsule 3 11/24/2022 11/24/2023 Active Start: 07-30-2021 take 1 capsule by mo uth once daily DULoxetine HCl - 60 MG [...] tablet (20 sources) Histamine-2 Receptor Antagonist Start: 12-13-19 take 1 tablet by mouth once daily famotidine (Pepcid) 20 MG tablet Indications: Gastroesophageal reflux disease without esophagitis TAKE 1 TABLET BY MOUTH EVERY DAY 100 tablet 3 12/12/2024 Active Start: 10-21-2024 take 1 tablet by sky once daily famotidine (Pepcid) 20 MG tablet Indications: Gastroesophageal reflux disease without esophagitis Take 1 tablet (20 mg) by mouth Daily 30 tablet 2 10/21/2024 Active Start: 10-26-2023 End: 10-07-2024 take 1 tablet by mouth at bedtime famotidine (Pepcid) 20 MG tablet Indications: Sore throat TAKE 1 TABLET BY MOUTH AT BEDTIME 90 tablet 2024 10/07/2024 Discontinued fluticasone propionate 0.05 mg/actuat metered dose nasal spray (2 sources) Corticosteroid Start: 11-24-2022 End: 11-24-2023 take 1 spray(s) nasal route in the morning fluticasone (Flonase Allergy Relief) 50 MCG/ACT nasal spray Indications: Chronic allergic rhinitis Administer 1 spray into each nostril in the morning. 16 g 11 11/24/2022 11/24/2023 Active 30 actuat fluticasone furoate 0.1 mg/actuat / umeclidinium 0.0625 mg/actuat / vilanterol 0.025 mg/actuat dry powder inhaler (20 sources) Anticholinergic, Corticosteroid, beta2-Adrenergic Agonist Start: 08-24-2024 take 1 puff(s) by inhalation once daily Fluticasone-Umecl idin-Vilant (Trelegy Ellipta) 100-62.5-25 MCG/ACT aerosol powder Indications: Panlobular emphysema (HCC) Inhale 1 puff Daily 3 each 3 08/24/2024 Active Start: 07-29-2024 take 1 puff(s) by inhalation once daily Pptysajjrnj-Zepsvpkgn-Dvpdzi (Trelegy Ellipta) 100-62.5-25 MCG/ACT aerosol powder Indications: Panlobular emphysema (CMS/HCC) Inhale 1 puff Daily 1 each 5 07/29/2024 Active furosemide 40 mg oral tablet (20 sources) Loop Diuretic Start: 06-29-2018 take 1 tablet by mouth once daily Furosemide 40 mg tablet Active 1 TAB PO Daily June 29, 2018 1:00am gabapentin 100 mg oral capsule (20 sources) [...] 07/05/2025 Active glyBURIDE 2.5 mg oral tablet (2 sources) Sulfonylurea Start: 06-29-2018 take 1 tablet by mouth once daily Glyburide 2.5 mg tablet Active 1 TAB PO Daily June 29, 2018 1:00am ipratropium bromide 0.042 mg/actuat metered dose nasal [...] mg oral tablet (20 sources) l-Thyroxine Start: 01-09-2025 levothyroxine (Synthroid, Levoxyl) 100 MCG tablet Indications: Acquired hypothyroidism TAKE 1 TABLET EVERY MORNING BEFORE A MEAL 90 tablet 3 01/09/2025 Active Start: 01-09-2025 levothyroxine (Synthroid, Levoxyl) 100 MCG tablet Indications: Acquired hypothyroidism TAKE 1 TABLET EVERY MORNING BEFORE A MEAL 90 tablet 3 01/09/2025 Active Start: 12-21-2023 take 1 tablet by sky once daily levothyroxine 100 mcg (0.1 mg) Tab mcg tab(s), Oral, Daily, Refills(s) 0, Thyroid Start Date: 12/21/23 Status: Ordered Start: 06-29-2018 End: 12-15-2024 take 1 tablet by mouth before mealtime levothyroxine (Synthroid, Levoxyl) 100 MCG tablet Indications: Acquired hypothyroidism TAKE 1 TABLET (100 MCG) BY MOUTH IN THE MORNING. TAKE BEFORE MEALS. 90 tablet 3 12/16/2023 Active linaclotide 0.29 mg oral capsule (20 sources) Guanylate Cyclase-C Agonist Start: 12-21-2023 End: 10-07-2024 linaCLOtide (Linzess) 290 MCG capsule Take by mouth 12/21/2023 10/07/2024 Discontinued Start: 12-21-2023 take 1 ug by mouth once daily Linzess 290 mcg oral capsule mcg cap(s), Oral, Daily, Refills(s) 0, Constipation Start Date: 12/21/23 Status: Ordered Start: 01-02-2022 take 1 capsule by mo [facility] once daily Linzess 290 MCG Oral Capsule TAKE 1 CAPSULE BY MOUTH EVERY DAY FOR 90 DAYS Quantity: 90 Refills: 0 Ordered: 02-Jan-2022 DO Start : 02-Jan-2022 Active lisinopril 5 mg oral tablet (20 sources) Angiotensin Converting Enzyme Inhibitor Start: 01-09-2025 lisinopril 5 MG tabl et Indications: Essential hypertension TAKE 1 TABLET EVERY MORNING 90 tablet 3 01/09/2025 Active Start: 01-09-2025 lisinopril 5 M G tablet Indications: Essential hypertension TAKE 1 TABLET EVERY MORNING 90 tablet 3 01/09/2025 Active Start: 02-09-2024 End: 01-09-2025 lisinopril 5 MG tablet Indic ations: Essential hypertension TAKE 1 TABLET EVERY MORNING 90 tablet 3 02/09/2024 01/09/2025 Discontinued Start: 06-29-2018 End: 07-27-2023 lisinopril 5 MG tablet Indic ations: Essential hypertension (CMS/HCC) TAKE 1 TABLET EVERY MORNING 90 tablet 3 02/09/2024 Active loratadine 10 mg oral tablet (20 [...] day as needed for dizziness. 09/10/2017 Active memantine hydrochloride 10 mg oral tablet (20 sources) C-bqyuqv-V-aspar douglass Receptor Antagonist Start: 11-29-2024 End: 01-16-2025 memantine (Namenda Titration Pack) 28 x 5 MG & 21 x 10 MG tablet pack Indications: Cognitive impairment USE DIRECTED FOR FIRST MONTH. 147 each 11/29/2024 01/16/2025 Discontinued (Dose adjustment) Start: 11-29-2024 memantine (Nam enda Titration Pack) 28 x 5 MG & 21 x 10 MG tablet pack Indications: Cognitive impairment USE DIRECTED FOR FIRST MONTH. 147 each 1 11/29/2024 Active Start: 11-07-2024 End: 06-04-2025 take 1 tablet by mouth in the morning memantine (Namenda) 10 MG tablet Indications: Cognitive impairment Take 1 tablet (10 mg) by mouth in the morning and 1 tablet (10 mg) before bedtime. 60 tablet 5 12/06/2024 06/04/2025 Active Start: 11-07-2024 End: 12-07-2024 memantine (Namenda Titration Pack) 28 x 5 MG & 21 x 10 MG tablet pack Indications: Cognitive impairment Use as directed for first month. 49 tablet 11/07/2024 12/07/2024 Active methylPREDNISolone (2 sources) Corticosteroid Start: 06-10-2024 [...] RNA Synthetase Inhibitor Antibacterial Start: 01-11-2024 mupirocin (Bactroban ) 2 % ointment 01/11/2024 Active nitroglycerin 0.4 mg sublingual tablet (20 sources) Nitrate Vasodilator Start: 06-29-2018 Nitroglyce rin (Nitrostat) 0.4 mg Tablet, Sublingual Active 0.4 MG SUBLINGUAL every 5 to 15 minutes as needed for Chest Pain June 29, 2018 1:00am nystatin 100 unt/mg topical ointment (20 sources) Polyene Antifungal nystatin (Myc ostatin) ointment every 12 (twelve) hours. Active omeprazole 40 mg delayed release oral capsule (20 sources) Proton Pump Inhibitor Start: 01-09-2025 omeprazo le (PriLOSEC) [address] capsule Indications: Gastroesophageal reflux disease without esophagitis TAKE 1 CAPSULE EVERY MORNING BEFORE A MEAL 90 capsule 3 01/09/2025 Active Start: 01-09-2025 omeprazole (Pr iLOSEC) [address] capsule Indications: Gastroesophageal reflux disease without esophagitis TAKE 1 CAPSULE EVERY MORNING BEFORE A MEAL 90 capsule 3 01/09/2025 Active Start: 12-16-2023 End: 01-09-2025 take 1 capsule by mouth in the morning omeprazole (PriLOSEC) [address] capsule Indications: Gastroesophageal reflux disease without esophagitis Take 1 capsule (40 mg) by mouth in the morning. Do not crush or chew.. 09/29/2024 01/09/2025 Discontinued Start: 12-10-2022 omeprazole (Pr iLOSEC) [address] capsule Indications: Gastroesophageal reflux disease without esophagitis TAKE 1 CAPSULE BY MOUTH EVERY DAY 30 MINUTES BEFORE MORNING MEAL FOR 30 DAYS 90 capsule 3 12/10/2022 Active ondansetron 4 mg disintegrating oral tablet (20 sources) Serotonin-3 Receptor Antagonist Start: 10-14-2024 End: 12-05-2024 take 1 tablet by mouth every eight hours as needed for nausea and vomiting and nausea and nausea ondansetron ODT (Zofran-ODT) 4 MG disintegrating tablet Indications: Nausea Take 1 tablet (4 mg) by mouth every 8 (eight) hours if needed for nausea or vomiting for up to 28 days 21 tablet 3 11/07/2024 12/05/2024 Active Start: 10-05-2024 End: 10-12-2024 take 1 tablet by mouth every eight hours as needed for nausea and vomiting and nausea and nausea ondansetron ODT (Zofran-ODT) 4 MG disintegrating tablet Indications: Nausea Take 1 tablet (4 mg) by mouth every 8 (eight) hours if needed for nausea or vomiting for up to 7 days 21 tablet 10/05/2024 10/12/2024 Active Start: 09-20-2024 End: 09-29-2024 take 1 tablet [...] 60 tablet 1 01/22/2024 02/21/2024 Active Miralax (5 sources) Osmotic Laxative Start: 12-21-2023 take 1 g by mouth once daily MiraLax gm, Oral, Daily, Refill(s) 0 Start Date: 12/21/23 Status: Ordered Start: 06-29-2018 End: 11-24-2023 Polyethylene Glycol 3350 (Mi ralax) 17 gram Powder In Packet Active 17 GM PO Daily June 29, 2018 1:00am Polyethylene Glycols (20 sources) Start: 08-13-2024 take 17 g by [...] 13-Sep-2021 DO Start : 13-Sep-2021 Active predniSONE 10 mg oral tablet (6 sources) Start: 01-11-2025 predniSONE (De ltasone) 10 MG tablet 01/11/2025 Active Start: 09-24-2024 End: 09-29-2024 take 1 tablet by mouth in the morning, then take 1 tablet by mouth at bedtime predniSONE (Deltasone) 20 MG tablet Take 20 mg by mouth in the morning and 20 mg before bedtime. 5 days. 09/24/2024 09/29/2024 Discontinued (Side effects) raNITIdine 150 mg oral tablet (2 sources) Histamine-2 Receptor Antagonist Start: 06-29-2018 take 1 tablet by mouth once daily Ranitidine Hcl 150 mg tablet Active 1 TAB PO Daily June 29, 2018 1:00am torsemide 10 mg oral tablet (20 sources) Loop Diuretic Start: 01-16-2025 End: 01-16-2026 take 1.5 tablets by mouth once daily torsemide (Demadex) 10 MG tablet Indications: Edema Take 1.5 tablets (15 mg) by mouth Daily 45 tablet 11 01/16/2025 01/16/2026 Active Start: 10-07-2024 End: 10-10-2025 take 1 tablet by mouth once daily torsemide (Demadex) 10 MG tablet Indications: Chronic combined systolic and diastolic congestive heart failure (HCC) Take 1 tablet (10 mg) by mouth Daily 90 tablet 3 10/10/2024 01/16/2025 Discontinued (Reorder) Start: 09-07-2024 End: 09-07-2025 take 1 tablet by mouth once daily torsemide (Demadex) 20 MG tablet Indications: 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) Take 1 tablet (20 mg) by mouth Daily 30 tablet 11 09/07/2024 10/07/2024 Discontinued vilazodone hydrochloride 40 mg oral tablet (2 sources) Start: 06-29-2018 take 1 tablet by mouth once daily Vilazodone 40 mg tablet Active 1 TAB PO Daily June 29, 2018 1:00am Completed/Discontinued Medications Medication Drug Class(es) Dates Sig [...] / salmeterol 0.05 mg/actuat dry powder inhaler (9 sources) Corticosteroid, beta2-Adrenergic Agonist Start: 10-18-2020 take [...] PUFF INHALATION Twice daily June 29, 2018 1:00am Start: 06-29-2018 take 1 puff(s) by in [...] Classification Problem Date Documented Da te Episodic/Chronic Administrative/social admission (2 sources) Patient encounter status; Translations: [Other specified counseling] 11-07-2024 Episodic Allergic reactions (1 source) Allergy status to [...] [Coronary atherosclerosis of unspecified type of vessel, [place] or graft] Onset: 04-14-2022 11-04-2022 Chronic Delirium, dementia, and amnestic and other cognitive disorders (2 sources) Dementia; Translations: [Unspecified dementia without behavioral disturbance] 01-09-2025 Chronic Diabetes mellitus with complications (20 sources) [...] chronic kidney disease] Onset: 08-25-2022 11-04-2022 Chronic Malaise and fatigue (4 sources) Asthenia; Translations: [Weakness] 10-07-2024 Episodic Menopausal disorders (1 source) Hormone replacement therapy; Translations: [HORMONE REPLACEMENT THERAPY] Onset: 10-23-2022 Episodic Mood disorders (20 sources) Recurrent major depressive episodes, moderate ; Translations: [Major depressive disorder, recurrent, moderate] Onset: 11-04-2022 11-04-2022 Chronic Mood disorders (1 source) Mood disorders; Translations: [DEPRESSION UNSPECIFIED] Onset: 10-23-2022 Mycoses (6 sources) Pain in toe; Translations: [Tinea unguium] 04-22-2024 Episodic Occlusion or stenosis of precerebral arteries [...] 08-25-2022 11-04-2022 Chronic Other aftercare (1 source) [facility] (current) use of aspirin; 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] Onset: 10-23-2022 Episodic Other aftercare (1 source) Other residential (current) drug therapy; Translations: [OTH [facility] CURRENT DRUG THERAPY] Onset: 10-23-2022 Episodic Other 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 (1 source) 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; 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: [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 STEROIDS] Onset: 10-23-2022 Episodic [...] Translations: [HYPOTENSION UNSPECIFIED] Onset: 10-23-2022 Episodic Other circulatory disease (2 sources) Low blood pressure; Translations: [Other hypotension] 01-09-2025 Episodic Other diseases of bladder and urethra (20 sources) Overactive bladder; Translations: [Overactive bladder] Onset: 11-04-2022 11-04-2022 Chronic Other diseases of veins and lymphatics (1 source) Lymphedema, not elsewhere classified; Translations: [LYMPHEDEMA NOT ELSEWHERE CLASSIFIED] Onset: 10-23-2022 Chronic Other diseases of veins and lymphatics (6 sources) Vascular insufficiency; Translations: [Venous insufficiency (chronic) (peripheral)] 04-22-2024 Episodic Other female genital disorders (2 sources) Vaginal discomfort; Translations: [Unspecified condition associated with female genital organs and menstrual cycle] 12-29-2024 Episodic Other gastrointestinal disorders (1 source) Dysphagia; [...] caused by tuberculosis or sexually transmitted disease) (5 sources) Pneumonia, unspecified organism; Translations: [Community acquired [...] without cholecystitis without obstruction] Onset: 12-21-2023 Episodic Nausea and vomiting (20 sources) Nausea; Translations: [Nausea] Onset: 09-29-2024 08-06-2024 Episodic Other connective tissue disease (20 sources) [...] [Ataxia, unspecified] Onset: 10-23-2017 12-14-2022 Episodic Other nervous system disorders (16 sources) Impaired cognition; Translations: [Other symptoms and signs involving cognitive functions and awareness] Onset: 11-04-2022 11-07-2024 Episodic Other nutritional; endocrine; and metabolic disorders [...] [Acute pharyngitis, unspecified] Onset: 10-26-2023 10-26-2023 Episodic Residual codes; unclassified (20 sources) Bilateral lower limb edema; Translations: [Localized edema] Onset: 10-07-2024 10-07-2024 Episodic Screening and history of mental health [...] Test Name Value Interpretation Reference Range Facility BASIC METABOLIC PANELon 09-21 Calcium [Mass/Vol] 8.6 mg/dL Normal 8.6-10.4 [facility] Comment on above: Performed By: #### 1 0165 #### [facility] [place] [address] Tile Conduit Layer: Angel Conway MD Chloride [Moles/Vol] 109 mmol/L Normal 98-110 [facility] Comment on above: Performed By: #### 1 0165 #### [facility] [place] [address] Tile Conduit Layer: Angel Conway MD CO2 [Moles/Vol] 21 mmol/L Normal 20-32 [facility] Comment on above: Performed By: #### 1 0165 #### [facility] [place] [address] Tile Conduit Layer: Angel Conway MD Creatinine [Mass/Vol] 0.55 mg/dL Low 0.60-0.95 [facility] Comment on above: Performed By: #### 1 0165 #### [facility] [place] [address] Tile Conduit Layer: Angel Conway MD GFR/1.73 sq M.predicted among non-blacks MDRD (S/P/Bld) [Vol rate/Area] 91 mL/min/{1.73_m2} Normal > OR = 60 [facility] Comment on above: Performed By: #### 1 0165 #### [facility] [place] [address] Tile Conduit Layer: Angel Conway MD Glucose [Mass/Vol] 116 mg/dL High 65-99 [facility] Comment on above: Result Comment: Fasting reference interval For someone without known diabetes, a glucose value between 100 and 125 mg/dL is consistent with prediabetes and should be confirmed with a follow-up test. Performed By: #### 1 0165 #### [facility] [address], [address] [place] [address] Tile Conduit Layer: Angel Conway MD Potassium [Moles/Vol] 3.6 mmol/L Normal 3.5-5.3 [facility] Comment on above: Performed By: #### 1 0165 #### [facility] [place] [address] Tile Conduit Layer: Angel Conway MD Sodium [Moles/Vol] 140 mmol/L Normal 135-146 [facility] Comment on above: Performed By: #### 1 0165 #### [facility] [place] [address] Tile Conduit Layer: Angel Conway MD Urea nitrogen [Mass/Vol] 6 mg/dL Low 7-25 [facility] Comment on above: Performed By: #### 1 0165 #### [facility] [place] [address] Tile Conduit Layer: Angel Conway MD Urea nitrogen/Creatinin e [Mass ratio] 11 mg/mg Normal 6-22 [facility] Comment on above: Performed By: #### 1 0165 #### [facility] [place] [address] Tile Conduit Layer: Angel Conway MD Urine Cultureon 10-01-2024 Bacteria identified Cx Nom (U) 50,000 colonies/ml mixed bacterial skin contaminants 2 Days PERFORMED BY: [place] [address] PATHOLOGIST LABORATORY IMMUNOLOGIST TRACI MCDONNELL M.D. Normal [facility] Comment on above: Performed By: #### C UU #### [address] Urine Cultureon 08-13-2024 Bacteria identified Cx Nom (U) No Growth 2 Days PERFORMED BY: [place] [address] PATHOLOGIST LABORATORY IMMUNOLOGIST TRACI MCDONNELL M.D. Normal [facility] Comment on above: Performed By: #### C UU #### [facility] [address] Urine cultureOrdered By: Nikita Greene on 08-13-2024 Bacteria identified Cx Nom (U) Urine culture [facility] Pulmonary function reporton 05-04-2024 PFT Interpretation 84-year-old [...] defect. Clinical correlation is recommended. [facility] Pulmonary function reportOrd ered By: Kristen William on 05-04-2024 [facility] Work Phone: Pulmonary function reporton 05-03-2024 Radiology Study observation (narrative) [facility] Laboratory - Hematology and Cell countson 05-02-2024 HbA1c (Bld) [Mass fraction] 5.5 % [facility] No Panel Informationon 05-02 [facility] Surgical Pathology Reporton 03-10-2024 [place] [address]- Surgical Pathology Report Collected Date/Time: 03/08/2024 10:15 [...] is entirely submitted in one cassette. (DC) DC:[facility] Microscopic Description A&B: Microscopic examination performed unless gross only specified. Normal [facility] Comment on above: Performed By: #### [id number] #### [facility] [address] [place] [address] Main OR Intraoperative Recor don 03-09-2024 Main OR Intraoperative Record Main OR Intraoperative Record IntraOp Document Type FT Summary Primary Physician: Mandi Glez MD Finalized Date/Time: 03/09/24 10:12:42 Pt. Name: JAQUELIN NORWOOD/Sex: 1940 Female Med Rec #: [id number] Physician: Mandi Glez MD Financial #: [id number] Pt. Type: O Room/Bed: / Admit/Disch: 03/08/24 [...] 1 Entry 2 Entry 3 Case Attendee Luciano Grace MD, MD, Tammy New RN Role Performed Anesthesiologist of Surgeon - Primary Veneer Sheet Repairer - Primary Record Time In 03/08/24 09:48:00 03/08/24 09:48:00 03/08/24 09:48:00 Time Out 03/08/24 10:16:00 03/08/24 10:16:00 03/08/24 10:16:00 Procedure COLONOSCOPY(.) COLONOSCOPY(.) COLONOSCOPY(.) Comments Last Modified By: Tom COTA, Tammy Santos RN, Tammy Fenton RN 03/08/24 10:16:04 03/08/24 10:16:04 03/08/24 10:16:04 Entry 4 Case Attendee Ang DURAN, Talia Bryant Role Performed Scrub - Primary Time In [...] and tissue Entry 1 Skin Integrity Intact, [place], Warm, & Skin Abnormality No Dry Outcomes [...] Position Resting (more content not included)... Normal [facility] Discharge Instructionson Discharge Instructions Discharge Instructions JAQUELIN NORWOOD :1940 Visit Date:03/08/2024 Inpatient Discharge Instructions [...] Up Appointments after Discharge Follow Up with Mandi Glez MD, GAS, [facility] When: Comments: Office will call to schedule follow up appointment and/or review any pending biopsy results Call for any problems. Where: [address] [place] [address], [address] [place] [address]- [phone] Medications What How Much When Instructions Next [...] paper. FOL (more content not included)... Normal [facility] Comment on above: Result Comment: Elec tronically Signed By: Yoanna Jhaveri RN\.br\Date and Time Signed: 03/08/24 10:37 EDT Main OR PACU I Recordon 02-20 Main OR PACU I Record Main OR PACU I Record PACU Phase I Document Type FT Summary Primary Physician: Mandi Glez MD Finalized Date/Time: 03/08/24 11:14:03 Pt. Name: CUCOJAQUELIN/Sex: 1940 Female Med Rec #: [id number] Physician: Mnadi Glez MD Financial #: [id number] Pt. Type: O Room/Bed: / Admit/Disch: 03/08/24 [...] By: Yoanna Jhaveri RN 03/08/24 11:14 Normal [facility] Main OR Preoperative Recordo n 03-08-2024 Main OR Preoperative Record Main OR Preoperative Record Holding Area Document Type FT Summary Primary Physician: Mandi Glez MD Finalized Date/Time: 03/08/24 08:51:04 Pt. Name: JAQUELIN NORWOOD/Sex: 1940 Female Med Rec #: [id number] Physician: Mandi Glez MD Financial #: [id number] Pt. Type: O Room/Bed: / Admit/Disch: 03/08/24 [...] By: Ysabel Kelly RN 03/08/24 08:51 Normal [facility] Operative Reporton Operative Report Operative Report Patient: JAQUELIN NORWOOD Age: 83 years Sex: Female : 1940 Associated Diagnoses: None Author: Mandi Glez MD Pre-Procedure Procedure Date 03/08/2024 10:15:00 . Procedure Type: Colonoscopy with removal of tumor(s), polyp(s), or other lesion(s) by cold snare technique. Procedure provider Performed by Mandi Glez MD. Current history and physical Documented on chart. EGD - esophagogastroduodenoscopy ([id number]) on 02/03/2024 at 83 Years. Colonoscopy ([id number]) on 02/03/2024 at 83 Years.. Past Medical History No active or resolved past medical history items have been selected or recorded.. Family History Heart disease Mother Diabetes mellitus type 2 Mother Cancer Father Mother . Procedure History EGD - esophagogastroduodenoscopy ([id number]) on 02/03/2024 at 83 Years. Colonoscopy ([id number]) on 02/03/2024 at 83 Years.. Colorectal neoplasm [...] Internal hemorrhoids Images Procedure images: Rec_hd_video___ 12_54_071.jpg Rec_hd_video___ 16_33_113.jpg Rec_hd_video___ 17_31_091.jpg Rec_hd_video__ 17_42_307.jpg Rec_hd_video___ 18_59_330.jpg Rec1_hd_video__09_ 20_08_152.jpg Rec1_hd_video__ 22_43_176.jpg . Post-Procedure Complications: none. Estimated blood loss: Minimal. Specimens: sent to pathology. Devices/ implants: none left in place. Impression and Plan 6 colon polyps?removed as above Redundant colon with excessive mucus Diverticulosis Internal hemorrhoids Recommendations: Repeat colonoscopy:: None given age and comorbiditties . Follow-up:: in clinic for 1-2 weeks when p (more content not included)... Normal [facility] Comment on above: Result Comment: Elec tronically Signed By: Mandi Glez MD\.br\Date and Time Signed: 03/08/24 10:18 EDT Other Comment: Ayana perry Attachment - attachment storage system not supported [id number] Can be viewed in source systemMissing Attachment - attachment storage system not supported [id number] Can be viewed in source systemMissThree Rings Attachment - attachment storage system not supported [id number] Can be viewed in source systemMissThree Rings Attachment - attachment storage system not supported [id number] Can be viewed in source systemMissing Attachment - attachment storage system not supported [id number] Can be viewed in source systemMissing Attachment - attachment storage system not supported [id number] Can be viewed in source systemMissing Attachment - attachment storage system not supported [id number] Can be viewed in source system H&P [...] Diagnosis: abnl CT - colonoscopy H&P Normal [facility] Operative Report Operative Report Patient: JAQUELIN [...] Plan Diagnosis: abnl CT - colonoscopy Normal [facility] Comment on above: Result Comment: Elec [...] Diagnosis: Abnormal CT scan Sigmoidoscopy H&P Normal [facility] Operative Report Operative Report Patient: JAQUELIN [...] (MAR 08 08:46) Weight 87.3 kg (MAR 08:46) General: in Nad Abdomen: Soft, NTND Impression and Plan Diagnosis: Abnormal CT scan Sigmoidoscopy Normal [facility] Comment on above: Result Comment: Elec tronically Signed By: Amaris VALDEZ, Mandi Red\.br\Date and Time Signed: 03/08/24 09:49 EDT Gastroenterology Office/Clin ic Noteon 03-02-2024 Gastroenterology Office/Clinic Note Gastroenterology Office/Clinic Note Chief Complaint ref by anshul- nausea HPI Staff Patient is a 83 [...] Cancer: Mo (more content not included)... Normal [facility] Comment on above: Result Comment: Elec tronically Signed By: Dania Antonio I\.zari\Date and Time Signed: 03/02/24 09:23 EDT 07 Addendum Reporton 16-2 024 07 Addendum Report [facility] [address] [facility] [place] [address]- Surgical Pathology Report Collected Date/Time: 02/03/2024 10:21 [...] is entirely submitted in one cassette. (DC) DC:[facility] Surgical Pathology Report Collected Date/Time: 02/03/2024 [...] characteristics were determined by the [facility]. They have not been cleared or approved by the US Food and Drug Administration. The FDA has determined that such clearance or approval is not necessary. These tests are used for clinical purposes. They should not be regarded as investigational or for research. Appropriate positive and negative controls are performed and are acceptable. Normal [facility] Comment on above: Performed By: #### C [id number] #### [facility] [address] [place] [address] Main OR Intraoperative Recor don 02-04-2024 Main OR Intraoperative Record Main OR Intraoperative Record IntraOp Document Type FT Summary Primary Physician: Mandi Glez MD Finalized Date/Time: 02/04/24 08:30:09 Pt. Name: CUCOJAQUELIN/Sex: 1940 Female Med Rec #: [id number] Physician: Mandi Glez MD Financial #: [id number] Pt. Type: O Room/Bed: / Admit/Disch: 02/03/24 [...] RN, Karla Vu Role Performed Anesthesiologist of Veneer Sheet Repairer - Primary Staff - Other Record Time [...] Yes No Primary Surgeon Amaris VALDEZ, Mandi Bond MD Start 02/03/24 10:16:00 02/03/24 10:16:00 Stop 02/03/24 [...] By: Ruthy (more content not included)... Normal [facility] Surgical Pathology Reporton 02-04-2024 Surgical Pathology Report [facility] [address] [facility] [place] [address]- Surgical Pathology Report Collected Date/Time: 02/03/2024 10:21 EDT Pathologist: Meng Vyas MD Received Date/Time: 02/03/2024 11:48 ALIVIA Glez MD, Mandi Glez MD, Mandi Cohen Surgical Pathology [...] is entirely submitted in one cassette. (DC) DC:[facility] Microscopic Description A&B: Microscopic examination performed unless gross only specified. The use of one or more reagents in the above tests is regulated as an analyte specific reagent (ASR). The test or tests are ordered following initial H&E microscopic examination. The performance characteristics were determined by the [facility] of [facility]. They have not been cleared or approved by the [place] Food and Drug Administration. The FDA has determined that such clearance or approval is not necessary. These tests are used for clinical purposes. They should not be regarded as investigational or for research. Appropriate positive and negative controls are performed and are acceptable. Normal [facility] Comment on above: Performed By: #### [id number] #### [facility] [address] [place] [address] Discharge Instructionson Discharge Instructions Discharge Instructions JAQUELIN [...] Up Appointments after Discharge Follow Up with Mandi Glez MD, GAS, MED When: Comments: Office will call Date and Time of Follow-up Appt. Where: [address] [place] [address], [address] [place] [phone] Medications What How Much When Instructions Next [...] including vitamins, herbs, eye drops, creams, and nswa-lla-hltduso medicines. ? Any problems you or family [...] Taking medi (more content not included)... Normal [facility] Comment on above: Result Comment: Elec tronically Signed By: Krissy COTA, Saida\.br\Date and Time Signed: 02/03/24 10:39 EDT Main OR PACU I Recordon 01-20 Main OR PACU I Record Main OR PACU I Record PACU Phase I Document Type FT Summary Primary Physician: Mandi Glez MD Finalized Date/Time: 02/03/24 16:03:27 Pt. Name: CUCOJAQUELIN/Sex: 1940 Female Med Rec #: [id number] Physician: Mandi Glez MD Financial #: [id number] Pt. Type: O Room/Bed: / Admit/Disch: 02/03/24 [...] 10:55 Saida Rey RN 02/03/24 16:03 Normal [facility] Main OR Preoperative Recordo n 02-03-2024 Main OR Preoperative Record Main OR Preoperative Record Holding Area Document Type FT Summary Primary Physician: Mandi Glez MD Finalized Date/Time: 02/03/24 09:17:23 Pt. Name: JAQUELIN NORWOOD/Sex: 1940 Female Med Rec #: [id number] Physician: Mandi Glez MD Financial #: [id number] Pt. Type: O Room/Bed: / Admit/Disch: 02/03/24 [...] 09:03 Saida Rey RN 02/03/24 09:17 Normal [facility] Operative Reporton Operative Report Operative Report [...] hours. Education and Follow-up: Counseled: Patient, Family. [facility] Comment on above: Result Comment: Elec tronically Signed By: Mandi Glez MD\.br\Date and Time Signed: 02/03/24 10:31 EDT Other Comment: Ayana perry Attachment - attachment storage system not supported [id number] Can be viewed in source system Operative [...] bulb. otherwise, normal duodenum. Images Procedure images: Rec1_hd_video_2023_08_14T09_ 26_26_067.jpg Rec1_hd_video_2023__14T09_ 26_34_629.jpg Rec1_hd_video_4__14T09_ 26_43_827.jpg Rec1_hd_video_4__14T09_ _55_948.jpg Rec1_hd_video_4__14T09_ 27_13_375.jpg Rec1_hd_video_2023_08_14T09_ 27_35_569.jpg Rec1_hd_video_4__14T09_ 28_31_722.jpg Rec1_hd_video_2023__14T09_ 28_44_158.jpg Rec1_hd_video_4__14T09_ 29_17_870.jpg Rec1_hd_video_4_08_14T09_ 29_43_284.jpg Rec1_hd_video_4_08_14T09_ 31_02_072.jpg Rec1_hd_video_2024_08_14T09_ 32_03_161.jpg . Post-Procedure Complications: none. Estimated blood loss: none. Specimens: None. Devices/ implants: none left in place. Impression and Plan Schatzki's ring and esophageal stricture status post dilation Gastropathy Duodenitis Recommendations: -Liquid then soft diet today, advance as tolerated (more content not included)... Normal [facility] Comment on above: Result Comment: Elec tronically Signed By: Mandi Glez MD\.br\Date and Time Signed: 02/03/24 10:30 EDT Other Comment: Ayana perry Attachment - attachment storage system not supported [id number] Can be viewed in source system Missing Attachment - attachment storage system not supported [id number] Can be viewed in source system Missing Attachment - attachment storage system not supported [id number] Can be viewed in source system Missing Attachment - attachment storage system not supported [id number] Can be viewed in source system Missing Attachment - attachment storage system not supported [id number] Can be viewed in source system Missing Attachment - attachment storage system not supported [id number] Can be viewed in source system Missing Attachment - attachment storage system not supported [id number] Can be viewed in source system Missing Attachment - attachment storage system not supported [id number] Can be viewed in source system Missing Attachment - attachment storage system not supported [id number] Can be viewed in source system Missing Attachment - attachment storage system not supported [id number] Can be viewed in source system Missing Attachment - attachment storage system not supported [id number] Can be viewed in source system Missing Attachment - attachment storage system not supported [id number] Can be viewed in source system Ambulatory Visit Summaryon 0 12-21-2023 Ambulatory Visit Summary Ambulatory Visit Summary MARTINRUBAJAQUELIN :1940 Visit Date:12/21/2023 Ambulatory Visit Instructions Your [...] for choosing us for your care. Normal [facility] Physician Referralon 024 Physician Referral [id number] Normal [facility] CORTISOL FREE, SERUMon 10-24 Cortisol, Free Dialysis, LCMS 0.462 ug/dL Normal [facility] Comment on above: Result Comment: Thes e tests were developed and their performance characteristics determined by [facility]. They have not been cleared or approved by the Food and Drug Administration. Reference Range: 8 AM 0.10 - 1.20 4 PM 0.042 - 0.872 Performed By: #### E RUR #### [facility] [address] [place] [address] Dr. Soila Pastor CBC AUTO DIFFon 10-16-2022 BASO # 0.0 103/ul Normal 0.0-0.1 [facility] Comment on above: Performed By: #### C BC #### [facility] [address] [place] [address] [address] Soila Pastor Basophils/100 WBC (Bld) 0.4 % Normal 0.2-2.0 [facility] Comment on above: Performed By: #### C BC #### [facility] [address] [place] [address] Dr. Soila Pastor EO # 0.1 103/ul Normal 0.0-0.7 [facility] Comment on above: Performed By: #### C BC #### [facility] [address] [place] [address] Dr. Soila Pastor Eosinophils/100 WBC (Bld) 1.0 % Normal 0.9-7.0 [facility] Comment on above: Performed By: #### C BC #### [facility] [address] [place] [address] Dr. Soila Pastor Erythrocyte distribution width (RBC) [Ratio] 13.4 % Normal 11.0-15.0 [facility] Comment on above: Performed By: #### C BC #### [facility] [address] [place] [address] Dr. Soila Pastor Hematocrit (Bld) [Volume fraction] 34.7 % Critically low 36.0-48.0 [facility] Comment on above: Performed By: #### C BC #### [facility] [address] [place] [address] Dr. Soila Pastor Hemoglobin (Bld) [Mass/Vol] 10.8 g/dL Critically low 12.0-16.0 [facility] Comment on above: Performed By: #### C BC #### [facility] [address] [place] [address] Dr. Soila Pastor IG # 0.03 10e3/ul Normal 0.00-0.03 [facility] Comment on above: Performed By: #### C BC #### [facility] [address] [place] [address] Dr. Soila Pastor IG % 0.4 % Normal 0.0-0.5 [facility] Comment on above: Performed By: #### C BC #### [facility] [address] [place] [address] Dr. Soila Pastor LYMPH # 1.7 103/ul Normal 1.2-3.8 [facility] Comment on above: Performed By: #### C BC #### [facility] [address] [place] [address] Dr. Soila Pastor Lymphocytes/100 WBC (Bld) 22.1 % Normal 20.5-60.0 [facility] Comment on above: Performed By: #### C BC #### [facility] [address] [place] [address] Dr. Soila Pastor MANUAL DIFF REQ NO Normal [facility] [facility] Comment on above: Performed By: #### C BC #### [facility] [address] [place] [address] Dr. Soila Pastor MCH (RBC) [Entitic mass] 30.0 pg Normal 26.7-34.0 [facility] Comment on above: Performed By: #### C BC #### [facility] [address] [place] [address] Dr. Soila Pastor MCHC (RBC) [Mass/Vol] 31.1 g/dL Normal 29.9-35.2 [facility] Comment on above: Performed By: #### C BC #### [facility] [address] [place] [address] Dr. Soila Pastor MCV (RBC) [Entitic vol] 96.4 fL Normal 81.0-99.0 [facility] Comment on above: Performed By: #### C BC #### [facility] [address] [place] [address] Dr. Soila Pastor MONO # 0.5 103/ul Normal 0.3-0.8 [facility] Comment on above: Performed By: #### C BC #### [facility] [address] [place] [address] Dr. Soila Pastor Monocytes/100 WBC (Bld) 6.9 % Normal 1.7-12.0 [facility] Comment on above: Performed By: #### C BC #### [facility] [address] [place] [address] Dr. Soila Pastor NEUT # 5.4 103/ul Normal 1.4-6.5 [facility] Comment on above: Performed By: #### C BC #### [facility] [address] [place] [address] Dr. Soila Pastor Neutrophils/100 WBC (Bld) 69.2 % Normal 43.0-75.0 [facility] Comment on above: Performed By: #### C BC #### [facility] [address] [address] [address] Soila Pastor Platelet mean volume (Bld) [Entitic vol] 11.8 fL Normal 9.5-13.5 [facility] Comment on above: Performed By: #### C BC #### [facility] [address] [address] [address] Soila Pastor PLT 128 103/ul Critically low 150-450 [facility] Comment on above: Performed By: #### C BC #### [facility] [address] [address] [address] Soila Pastor RBC 3.60 106/ul Critically low 4.20-5.40 [facility] Comment on above: Performed By: #### C BC #### [facility] [address] [place] [address] Dr. Soila Pastor WBC 7.9 103/ul Normal 4.0-11.0 [facility] Comment on above: Performed By: #### C BC #### [facility] [address] [place] [address] Dr. Soila Pastor PROF 14(COMP METB)on 023 Albumin [Mass/Vol] 2.4 g/dL Critically low 3.4-5.0 [facility] Comment on above: Performed By: #### C MP #### [facility] [address] [place] [address] Dr. Soila Pastor Albumin/Globulin [Mass ratio] 0.7 {ratio} Normal [facility] Comment on above: Performed By: #### C MP #### [facility] [address] [place] [address] Dr. Soila Pastor ALP [Catalytic activity/Vol] 66 U/L Normal 46-116 [facility] Comment on above: Performed By: #### C MP #### [facility] [address] [place] [address] Dr. Soila Pastor ALT [Catalytic activity/Vol] 15 U/L Normal 14-59 [facility] Comment on above: Performed By: #### C MP #### [facility] [address] [address] [address] Soila Pastor Anion gap [Moles/Vol] 12.1 mmol/L Normal [facility] Comment on above: Performed By: #### C MP #### [facility] [address] [address] [address] Soila Pastor AST [Catalytic activity/Vol] 18 U/L Normal 15-37 [facility] Comment on above: Performed By: #### C MP #### [facility] [address] [address] [address] Soila Pastor Bilirubin [Mass/Vol] 0.3 mg/dL Normal 0.2-1.0 [facility] Comment on above: Performed By: #### C MP #### [facility] [address] [address] [address] Soila Pastor Calcium [Mass/Vol] 8.6 mg/dL Normal 8.5-10.1 [facility] Comment on above: Performed By: #### C MP #### [facility] [address] [address] [address] Soila Pastor Chloride [Moles/Vol] 110 mmol/L Critically high 98-107 [facility] Comment on above: Performed By: #### C MP #### [facility] [address] [address] [address] Soila Pastor CO2 [Moles/Vol] 26.2 mmol/L Normal 21.0-32.0 [facility] Comment on above: Performed By: #### C MP #### [facility] [address] [address] [address] Soila Pastor Creatinine [Mass/Vol] 0.74 mg/dL Normal 0.55-1.02 [facility] Comment on above: Performed By: #### C MP #### [facility] [address] [address] [address] Soila Patsor EGFR-AF [facility] >60 Normal >=60 [facility] Comment on above: Performed By: #### C MP #### [facility] [address] [address] [address] Soila Pastor EGFR-NON AF [facility] >60 Normal >=60 [facility] Comment on above: Performed By: #### C MP #### [facility] [address] [address] [address] Soila Pastor Globulin (S) [Mass/Vol] 3.6 g/dL Normal [facility] Comment on above: Performed By: #### C MP #### [facility] [address] [address] [address] Soila Pastor Glucose [Mass/Vol] 119 mg/dL Critically high 74-106 [facility] Comment on above: Performed By: #### C MP #### [facility] [address] [place] [address] Dr. Soila Pastor Potassium [Moles/Vol] 3.3 mmol/L Critically low 3.5-5.1 [facility] Comment on above: Performed By: #### C MP #### [facility] [address] [place] [address] Dr. Soila Pastor Protein [Mass/Vol] 6.0 g/dL Critically low 6.4-8.2 [facility] Comment on above: Performed By: #### C MP #### [facility] [address] [place] [address] Dr. Soila Pastor Sodium [Moles/Vol] 145 mmol/L Normal 136-145 [facility] Comment on above: Performed By: #### C MP #### [facility] [address] [place] [address] Dr. Soila Pastor Urea nitrogen [Mass/Vol] 11.0 mg/dL Normal 7.0-18.0 [facility] Comment on above: Performed By: #### C MP #### [facility] [address] [place] [address] Dr. Soila Pastor Urea nitrogen/Creatinin e [Mass ratio] 14.9 mg/mg Normal [facility] Comment on above: Performed By: #### C MP #### [facility] [address] [place] [address] Dr. Soila Pastor CARDIAC KARYN 3-6on CK [Catalytic activity/Vol] 251 U/L Critically high 26-192 [facility] Comment on above: Performed By: #### E RUR #### [facility] [address] [place] [address] Dr. Soila Pastor CK.MB [Mass/Vol] 4.50 ng/mL Critically high <=3.60 [facility] Comment on above: Performed By: #### E RUR #### [facility] [address] [place] [address] Dr. Soila Pastor HSTROP 6.9 pg/mL Normal 4.0-51.3 [facility] Comment on above: Result Comment: CUT- OFF POINTS HAVE BEEN ESTABLISHED BASED ON THE FOURTH UNIVERSAL DEFINITIONS OF MYOCARDIAL INFARCTION. THE UPPER REFERENCE LIMIT (URL) OF TROPONIN, DEFINED THE 99TH PERCENTILE OF cTnI DISTRIBUTION IN A REFERENCE POPULATION, HAS BEEN CONFIRMED THE DECISION THRESHOLD FOR VA DIAGNOSIS. Performed By: #### E RUR #### [facility] [address] [place] [address] Dr. Soila Pastor CK [Catalytic activity/Vol] 143 U/L Normal 26-192 [facility] Comment on above: Performed By: #### E RUR #### [facility] [address] [place] [address] Dr. Soila Pastor CK.MB [Mass/Vol] 4.50 ng/mL Critically high <=3.60 [facility] Comment on above: Performed By: #### E RUR #### [facility] [address] [address] [address] Soila Pastor HSTROP 8.9 pg/mL Normal 4.0-51.3 [facility] Comment on above: Result Comment: CUT- OFF POINTS HAVE BEEN ESTABLISHED BASED ON THE FOURTH UNIVERSAL DEFINITIONS OF MYOCARDIAL INFARCTION. THE UPPER REFERENCE LIMIT (URL) OF TROPONIN, DEFINED THE 99TH PERCENTILE OF cTnI DISTRIBUTION IN A REFERENCE POPULATION, HAS BEEN CONFIRMED THE DECISION THRESHOLD FOR VA DIAGNOSIS. Performed By: #### E RUR #### [facility] [address] [place] [address] Dr. Soila Pastor CBC AUTO DIFFon 10-15-2022 BASO # 0.0 103/ul Normal 0.0-0.1 [facility] Comment on above: Performed By: #### C BC #### [facility] [address] [address] [address] Soila Pastor Basophils/100 WBC (Bld) 0.2 % Normal 0.2-2.0 [facility] Comment on above: Performed By: #### C BC #### [facility] [address] [address] [address] Soila Pastor EO # 0.0 103/ul Normal 0.0-0.7 [facility] Comment on above: Performed By: #### C BC #### [facility] [address] [place] [address] Dr. Soila Pastor Eosinophils/100 WBC (Bld) 0.4 % Critically low 0.9-7.0 [facility] Comment on above: Performed By: #### C BC #### [facility] [address] [place] [address] Dr. Soila Pastor Erythrocyte distribution width (RBC) [Ratio] 13.7 % Normal 11.0-15.0 [facility] Comment on above: Performed By: #### C BC #### [facility] [address] [place] [address] Dr. Soila Psator Hematocrit (Bld) [Volume fraction] 34.4 % Critically low 36.0-48.0 [facility] Comment on above: Performed By: #### C BC #### [facility] [address] [place] [address] Dr. Soila Pastor Hemoglobin (Bld) [Mass/Vol] 10.7 g/dL Critically low 12.0-16.0 [facility] Comment on above: Performed By: #### C BC #### [facility] [address] [place] [address] Dr. Soila Pastor IG # 0.21 10e3/ul Critically high 0.00-0.03 [facility] Comment on above: Performed By: #### C BC #### [facility] [address] [place] [address] Dr. Soila Pastor IG % 2.1 % Critically high 0.0-0.5 [facility] Comment on above: Performed By: #### C BC #### [facility] [address] [place] [address] Dr. Soila Pastor LYMPH # 0.9 103/ul Critically low 1.2-3.8 [facility] Comment on above: Performed By: #### C BC #### [facility] [address] [place] [address] Dr. Soila Pastor Lymphocytes/100 WBC (Bld) 8.9 % Critically low 20.5-60.0 [facility] Comment on above: Performed By: #### C BC #### [facility] [address] [place] [address] Dr. Soila Pastor MANUAL DIFF REQ NO Normal [facility] Comment on above: Performed By: #### C BC #### [facility] [address] [place] [address] Dr. Soila Pastor MCH (RBC) [Entitic mass] 30.7 pg Normal 26.7-34.0 [facility] Comment on above: Performed By: #### C BC #### [facility] [address] [place] [address] Dr. Soila Pastor MCHC (RBC) [Mass/Vol] 31.1 g/dL Normal 29.9-35.2 [facility] Comment on above: Performed By: #### C BC #### [facility] [address] [place] [address] Dr. Soila Pastor MCV (RBC) [Entitic vol] 98.9 fL Normal 81.0-99.0 [facility] Comment on above: Performed By: #### C BC #### [facility] [address] [place] [address] Dr. Soila Pastor MONO # 0.4 103/ul Normal 0.3-0.8 [facility] Comment on above: Performed By: #### C BC #### [facility] [address] [place] [address] Dr. Soila Pastor Monocytes/100 WBC (Bld) 4.3 % Normal 1.7-12.0 [facility] Comment on above: Performed By: #### C BC #### [facility] [address] [place] [address] Dr. Soila Pastor NEUT # 8.4 103/ul Critically high 1.4-6.5 [facility] Comment on above: Performed By: #### C BC #### [facility] [address] [place] [address] Dr. Soila Pastor Neutrophils/100 WBC (Bld) 84.1 % Critically high 43.0-75.0 [facility] Comment on above: Performed By: #### C BC #### [facility] [address] [place] [address] Dr. Soila Pastor Platelet mean volume (Bld) [Entitic vol] 12.2 fL Normal 9.5-13.5 [facility] Comment on above: Performed By: #### C BC #### [facility] [address] [place] [address] Dr. Soila Pastor PLT 160 103/ul Normal 150-450 [facility] Comment on above: Performed By: #### C BC #### [facility] [address] [place] [address] Dr. Soila Pastor RBC 3.48 106/ul Critically low 4.20-5.40 [facility] Comment on above: Performed By: #### C BC #### [facility] [address] [place] [address] Dr. Soila Pastor WBC 9.9 103/ul Normal 4.0-11.0 [facility] Comment on above: Performed By: #### C BC #### [facility] [address] [place] [address] Dr. Soila Pastor CULTURE URINEon 10-15-2022 CULTURE URINE Culture Observations : NO GROWTH. Normal [facility] Comment on above: Performed By: #### P OCGLUC #### [facility] [address] [place] [address] Dr. Soila Pastor MAGNESIUMon 10-15-2022 Magnesium [Mass/Vol] 1.8 mg/dL Normal 1.8-2.4 [facility] Comment on above: Performed By: #### T 4, MG #### [facility] [address] [place] [address] Dr. Soila Pastor POINT OF CARE GLUCOSEon 09-21 Glucose [Mass/Vol] 123 mg/dL Critically high 74-106 [facility] Comment on above: Performed By: #### P OCGLUC #### [facility] [address] [place] [address] Dr. Soila Pastor Glucose [Mass/Vol] 128 mg/dL Critically high 74-106 [facility] Comment on above: Performed By: #### E RUR #### [facility] [address] [place] [address] Dr. Soila Pastor Glucose [Mass/Vol] 111 mg/dL Critically high 74-106 [facility] Comment on above: Performed By: #### P OCGLUC #### [facility] [address] [place] [address] Dr. Soila Pastor PROF 14(COMP METB)on 023 Albumin [Mass/Vol] 2.3 g/dL Critically low 3.4-5.0 Th [facility] Comment on above: Performed By: #### C MP #### [facility] [address] [place] [address] Dr. Soila Pastor Albumin/Globulin [Mass ratio] 0.7 {ratio} Normal [facility] Comment on above: Performed By: #### C MP #### [facility] [address] [place] [address] Dr. Soila Pastor ALP [Catalytic activity/Vol] 70 U/L Normal 46-116 [facility] Comment on above: Performed By: #### C MP #### [facility] [address] [place] [address] Dr. Soila Pastor ALT [Catalytic activity/Vol] 11 U/L Critically low 14-59 [facility] Comment on above: Performed By: #### C MP #### [facility] [address] [place] [address] Dr. Soila Pastor Anion gap [Moles/Vol] 11.2 mmol/L Normal [facility] Comment on above: Performed By: #### C MP #### [facility] [address] [place] [address] Dr. Soila Pastor AST [Catalytic activity/Vol] 32 U/L Normal 15-37 [facility] Comment on above: Performed By: #### C MP #### [facility] [address] [place] [address] Dr. Soila Pastor Bilirubin [Mass/Vol] 0.5 mg/dL Normal 0.2-1.0 [facility] Comment on above: Performed By: #### C MP #### [facility] [address] [place] [address] Dr. Soila Pastor Calcium [Mass/Vol] 7.8 mg/dL Critically low 8.5-10.1 [facility] Comment on above: Performed By: #### C MP #### [facility] [address] [place] [address] Dr. Soila Pastor Chloride [Moles/Vol] 104 mmol/L Normal 98-107 [facility] Comment on above: Performed By: #### C MP #### [facility] [address] [place] [address] Dr. Soila Pastor CO2 [Moles/Vol] 26.4 mmol/L Normal 21.0-32.0 [facility] Comment on above: Performed By: #### C MP #### [facility] [address] [place] [address] Dr. Soila Pastor Creatinine [Mass/Vol] 1.05 mg/dL Critically high 0.55-1.02 [facility] Comment on above: Performed By: #### C MP #### [facility] [address] [place] [address] Dr. Soila Pastor EGFR-AF [facility] >60 Normal >=60 [facility] Comment on above: Performed By: #### C MP #### [facility] [address] [place] [address] Dr. Soila Pastor EGFR-NON AF [facility] 50 mL/min/1.73m2 Critically low >=60 [facility] Comment on above: Performed By: #### C MP #### [facility] [address] [address] [address] Soila Pastor Globulin (S) [Mass/Vol] 3.5 g/dL Normal [facility] Comment on above: Performed By: #### C MP #### [facility] [address] [address] [address] Soila Pastor Glucose [Mass/Vol] 153 mg/dL Critically high 74-106 [facility] Comment on above: Performed By: #### C MP #### [facility] [address] [address] [address] Soila Pastor Potassium [Moles/Vol] 4.6 mmol/L Normal 3.5-5.1 [facility] Comment on above: Performed By: #### C MP #### [facility] [address] [address] [address] Soila Pastor Protein [Mass/Vol] 5.8 g/dL Critically low 6.4-8.2 [facility] Comment on above: Performed By: #### C MP #### [facility] [address] [address] [address] Soila Pastor Sodium [Moles/Vol] 137 mmol/L Normal 136-145 [facility] Comment on above: Performed By: #### C MP #### [facility] [address] [address] [address] Soila Pastor Urea nitrogen [Mass/Vol] 19.0 mg/dL Critically high 7.0-18.0 [facility] Comment on above: Performed By: #### C MP #### [facility] [address] [address] [address] Soila Pastor Urea nitrogen/Creatinin e [Mass ratio] 18.1 mg/mg Normal [facility] Comment on above: Performed By: #### C MP #### [facility] [address] [address] [address] Soila Pastor T4on 10-15-2022 T4 [Mass/Vol] 7.30 ug/dL Normal 4.80-13.90 [facility] Comment on above: Performed By: #### T 4, MG #### [facility] [address] [place] [address] Dr. Soila Pastor ACETONE SERUMon 10-14-2022 ACETONE Negative Normal NEGATIVE [facility] Comment on above: Performed By: #### E RUR #### [facility] [address] [place] [address] Dr. Soila Pastor AMMONIAon 10-14-2022 Ammonia (P) [Moles/Vol] 24 umol/L Normal 11-32 [facility] Comment on above: Performed By: #### E RUR #### [facility] [address] [place] [address] Dr. Soila Pastor BLOOD GASES BTYon 10-14-2022 02 MODE ROOM AIR [facility] Comment on above: Performed By: #### E RUR #### [facility] [address] [place] [address] Dr. Soila Pastor ALLENS TEST Positive [facility] Comment on above: Performed By: #### E RUR #### [facility] [address] [place] [address] Dr. Soila Pastor Base excess Calc (Bld) [Moles/Vol] 1.0 mmol/L Normal -2.0-2.0 [facility] Comment on above: Performed By: #### E RUR #### [facility] [address] [place] [address] Dr. Soila Pastor BIPAP PRESSURE Normal [facility] Comment on above: Performed By: #### E RUR #### [facility] [address] [place] [address] Dr. Soila Pastor CPAP [facility] Comment on above: Performed By: #### E RUR #### [facility] [address] [place] [address] Dr. Soila Pastor FIO2 Normal [facility] Comment on above: Performed By: #### E RUR #### [facility] [address] [place] [address] Dr. Soila Pastor HCO3 (Bld) [Moles/Vol] 26.0 mmol/L Normal 22.0-26.0 [facility] Comment on above: Performed By: #### E RUR #### [facility] [address] [place] [address] Dr. Soila Pastor LPM [facility] Comment on above: Performed By: #### E RUR #### [facility] [address] [place] [address] Dr. Soila Pastor MINUTE VOLUME Normal [facility] Comment on above: Performed By: #### E RUR #### [facility] [address] [place] [address] Dr. Soila Pastor Oxygen (Bld) [Partial pressure] 92.6 mm[Hg] Normal 80.0-100.0 [facility] Comment on above: Performed By: #### E RUR #### [facility] [address] [place] [address] Dr. Soila Pastor Oxygen saturation in Blood 97.0 % Normal 95.0-100.0 [facility] Comment on above: Performed By: #### E RUR #### [facility] [address] [place] [address] Dr. Soila Pastor PCO2 43.2 mmHg Normal 35.0-45.0 [facility] Comment on above: Performed By: #### E RUR #### [facility] [address] [place] [address] Dr. Soila Pastor PEEP [facility] Comment on above: Performed By: #### E RUR #### [facility] [address] [place] [address] Dr. Soila Pastor pH (Bld) 7.389 [pH] Normal 7.350-7.450 [facility] Comment on above: Performed By: #### E RUR #### [facility] [address] [place] [address] Dr. Soila Pastor PIP [facility] Comment on above: Performed By: #### E RUR #### [facility] [address] [place] [address] Dr. Soila Pastor PS [facility] Comment on above: Performed By: #### E RUR #### [facility] [address] [place] [address] Dr. Soila Pastor PUNCTURE SITE LR [facility] Comment on above: Performed By: #### E RUR #### [facility] [address] [place] [address] Dr. Soila Pastor RATE [facility] Comment on above: Performed By: #### E RUR #### [facility] [address] [place] [address] Dr. Soila Pastor VENT MODE [facility] Comment on above: Performed By: #### E RUR #### [facility] [address] [place] [address] Dr. Soila Pastor [facility] Comment on above: Performed By: #### E RUR #### [facility] [address] [place] [address] Dr. Soila Pastor BNPon 10-14-2022 Natriuretic peptide B (Bld) [Mass/Vol] 432.0 pg/mL Normal <=1,800.0 [facility] Comment on above: Performed By: #### P OCGLUC #### [facility] [address] [place] [address] Dr. Soila Pastor CBC AUTO DIFFon 10-14-2022 BASO # 0.1 103/ul Normal 0.0-0.1 [facility] Comment on above: Performed By: #### P OCGLUC #### [facility] [address] [place] [address] Dr. Soila Pastor Basophils/100 WBC (Bld) 0.3 % Normal 0.2-2.0 [facility] Comment on above: Performed By: #### P OCGLUC #### [facility] [address] [place] [address] Dr. Soila Pastor EO # 0.3 103/ul Normal 0.0-0.7 [facility] Comment on above: Performed By: #### P OCGLUC #### [facility] [address] [address] [address] Soila Pastor Eosinophils/100 WBC (Bld) 1.7 % Normal 0.9-7.0 [facility] Comment on above: Performed By: #### P OCGLUC #### [facility] [address] [place] [address] Dr. Soila Pastor Erythrocyte distribution width (RBC) [Ratio] 13.5 % Normal 11.0-15.0 [facility] Comment on above: Performed By: #### P OCGLUC #### [facility] [address] [place] [address] Dr. Soila Pastor Hematocrit (Bld) [Volume fraction] 38.5 % Normal 36.0-48.0 [facility] Comment on above: Performed By: #### P OCGLUC #### [facility] [address] [place] [address] Dr. Soila Pastor Hemoglobin (Bld) [Mass/Vol] 12.2 g/dL Normal 12.0-16.0 [facility] Comment on above: Performed By: #### P OCGLUC #### [facility] [address] [place] [address] Dr. Soila Pastor IG # 0.06 10e3/ul Critically high 0.00-0.03 [facility] Comment on above: Performed By: #### P OCGLUC #### [facility] [address] [place] [address] Dr. Soila Pastor IG % 0.4 % Normal 0.0-0.5 [facility] Comment on above: Performed By: #### P OCGLUC #### [facility] [address] [place] [address] Dr. Soila Pastor LYMPH # 2.5 103/ul Normal 1.2-3.8 [facility] Comment on above: Performed By: #### P OCGLUC #### [facility] [address] [place] [address] Dr. Soila Pastor Lymphocytes/100 WBC (Bld) 17.2 % Critically low 20.5-60.0 [facility] Comment on above: Performed By: #### P OCGLUC #### [facility] [address] [address] [address] Soila Pastor MANUAL DIFF REQ NO Normal [facility] Comment on above: Performed By: #### P OCGLUC #### [facility] [address] [address] [address] Soila Pastor MCH (RBC) [Entitic mass] 30.0 pg Normal 26.7-34.0 [facility] Comment on above: Performed By: #### P OCGLUC #### [facility] [address] [address] [address] Soila Pastor MCHC (RBC) [Mass/Vol] 31.7 g/dL Normal 29.9-35.2 [facility] Comment on above: Performed By: #### P OCGLUC #### [facility] [address] [place] [address] Dr. Soila Pastor MCV (RBC) [Entitic vol] 94.8 fL Normal 81.0-99.0 [facility] Comment on above: Performed By: #### P OCGLUC #### [facility] [address] [place] [address] Dr. Soila Pastor MONO # 1.5 103/ul Critically high 0.3-0.8 [facility] Comment on above: Performed By: #### P OCGLUC #### [facility] [address] [place] [address] Dr. Soila Pastor Monocytes/100 WBC (Bld) 9.9 % Normal 1.7-12.0 [facility] Comment on above: Performed By: #### P OCGLUC #### [facility] [address] [place] [address] Dr. Soila Pastor NEUT # 10.3 103/ul Critically high 1.4-6.5 [facility] Comment on above: Performed By: #### P OCGLUC #### [facility] [address] [place] [address] Dr. Soila Pastor Neutrophils/100 WBC (Bld) 70.5 % Normal 43.0-75.0 [facility] Comment on above: Performed By: #### P OCGLUC #### [facility] [address] [address] [address] Soila Pastor Platelet mean volume (Bld) [Entitic vol] 11.3 fL Normal 9.5-13.5 [facility] Comment on above: Performed By: #### P OCGLUC #### [facility] [address] [address] [address] Soila Pastor PLT 151 103/ul Normal 150-450 [facility] Comment on above: Performed By: #### P OCGLUC #### [facility] [address] [address] [address] Soila Pastor RBC 4.06 106/ul Critically low 4.20-5.40 [facility] Comment on above: Performed By: #### P OCGLUC #### [facility] [address] [address] [address] Soila Pastor WBC 14.7 103/ul Critically high 4.0-11.0 [facility] Comment on above: Performed By: #### P OCGLUC #### [facility] [address] [address] HEAD WO CONon [...] PAVEL SANCHEZ Date: 2022-10-14 20:13 Normal [facility] CULTURE BLOODon 10-14-2022 Microscopic examination of blood, culture Culture Observations: NO GROWTH AT 5 DAYS. Normal [facility] Comment on above: Performed By: #### P OCGLUC #### [facility] [address] [place] [address] Dr. Soila Pastor Microscopic examination of blood, culture Culture Observations: NO GROWTH AT 5 DAYS. Normal [facility] Comment on above: Performed By: #### P OCGLUC #### [facility] [address] [place] [address] Dr. Soila Pastor Covid-19 PCR (CVDTB)on 09-21 SARS-CoV-2 (COVID-19) RNA JERALD+probe Ql (Unsp spec) Not detected Normal NOT DETECTED [facility] Comment on above: Result Comment: When diagnostic [...] for this test is supported by the [place] of Health and Human Service's declaration that [...] used). Performed By: #### C VDTBH #### [facility] [address] [place] [address] Dr. Soila Pastor ER URINE PROFILEon 3 Bilirubin Ql (U) Negative Normal NEGATIVE [facility] Comment on above: Performed By: #### E RUR #### [facility] [address] [place] [address] Dr. Soila Pastor Clarity (U) CLEAR Normal CLEAR [facility] Comment on above: Performed By: #### E RUR #### [facility] [address] [place] [address] Dr. Soila Pastor Color (U) YELLOW Normal YELLOW [facility] Comment on above: Performed By: #### E RUR #### [facility] [address] [place] [address] Dr. Soila Pastor ERUAHD A micrscopic examina tion will be performed if indicated. Normal [facility] Comment on above: Performed By: #### E RUR #### [facility] [address] [place] [address] Dr. Soila Pastor Glucose Ql (U) Negative Normal NEGATIVE [facility] Comment on above: Performed By: #### E RUR #### [facility] [address] [place] [address] Dr. Soila Pastor Hemoglobin Ql (U) Negative Normal NEGATIVE [facility] Comment on above: Performed By: #### E RUR #### [facility] [address] [place] [address] Dr. Soila Pastor Ketones Ql (U) TRACE Abnormal NEGATIVE [facility] Comment on above: Performed By: #### E RUR #### [facility] [address] [place] [address] Dr. Soila Pastor LEUKOCYTES Negative Normal NEGATIVE [facility] Comment on above: Performed By: #### E RUR #### [facility] [address] [place] [address] Dr. Soila Pastor Nitrite Ql (U) Negative Normal NEGATIVE [facility] Comment on above: Performed By: #### E RUR #### [facility] [address] [place] [address] Dr. Soila Pastor pH (U) 5.0 [pH] Normal 5-9 [facility] Comment on above: Performed By: #### E RUR #### [facility] [address] [place] [address] Dr. Soila Pastor SPEC GRAVITY 1.020 Normal 1.005-<=1.[address] [place] [address] Comment on above: Performed By: #### E RUR #### [facility] [address] [place] [address] Dr. Soila Pastor UA PROTEIN Negative Normal NEGATIVE/ TRACE [facility] Comment on above: Performed By: #### E RUR #### [facility] [address] [place] [address] Dr. Soila Pastor UR MICRO IND NOT INDICATED Normal [facility] Comment on above: Performed By: #### E RUR #### [facility] [address] [place] [address] Dr. Soila Pastor Urobilinogen Qn (U) 1.0 {Betsy'U}/dL Normal 0.2 - 1.0 [facility] Comment on above: Performed By: #### E RUR #### [facility] [address] [place] [address] Dr. Soila Pastor LACTATE/LACTIC ACIDon 2022 Lactate [Moles/Vol] 1.4 mmol/L Normal 0.4-2.0 [facility] Comment on above: Performed By: #### E RUR #### [facility] [address] [place] [address] Dr. Soila Pastor PH VENOUS BLOODon 10-14-2022 PCO2 VENOUS 47.6 mmHg Normal 40.0-52.0 [facility] Comment on above: Performed By: #### E RUR #### [facility] [address] [place] [address] Dr. Soila Pastor pH VENOUS 7.401 Normal 7.330-7.430 [facility] Comment on above: Performed By: #### E RUR #### [facility] [address] [place] [address] Dr. Soila Pastor PROF 14(COMP METB)on 023 Albumin [Mass/Vol] 3.2 g/dL Critically low 3.4-5.0 [facility] Comment on above: Performed By: #### P OCGLUC #### [facility] [address] [place] [address] Dr. Soila Pastor Albumin/Globulin [Mass ratio] 0.8 {ratio} Normal [facility] Comment on above: Performed By: #### P OCGLUC #### [facility] [address] [place] [address] Dr. Soila Pastor ALP [Catalytic activity/Vol] 85 U/L Normal 46-116 [facility] Comment on above: Performed By: #### P OCGLUC #### [facility] [address] [address] [address] Soila Pastor ALT [Catalytic activity/Vol] 13 U/L Critically low 14-59 [facility] Comment on above: Performed By: #### P OCGLUC #### [facility] [address] [place] [address] Dr. Soila Pastor Anion gap [Moles/Vol] 9.5 mmol/L Normal [facility] Comment on above: Performed By: #### P OCGLUC #### [facility] [address] [place] [address] Dr. Soila Pastor AST [Catalytic activity/Vol] 12 U/L Critically low 15-37 [facility] Comment on above: Performed By: #### P OCGLUC #### [facility] [address] [place] [address] Dr. Soila Pastor Bilirubin [Mass/Vol] 0.5 mg/dL Normal 0.2-1.0 [facility] Comment on above: Performed By: #### P OCGLUC #### [facility] [address] [place] [address] Dr. Soila Pastor Calcium [Mass/Vol] 9.0 mg/dL Normal 8.5-10.1 [facility] Comment on above: Performed By: #### P OCGLUC #### [facility] [address] [place] [address] Dr. Soila Pastor Chloride [Moles/Vol] 99 mmol/L Normal 98-107 [facility] Comment on above: Performed By: #### P OCGLUC #### [facility] [address] [place] [address] Dr. Soila Pastor CO2 [Moles/Vol] 32.0 mmol/L Normal 21.0-32.0 [facility] Comment on above: Performed By: #### P OCGLUC #### [facility] [address] [address] [address] Soila Pastor Creatinine [Mass/Vol] 1.55 mg/dL Critically high 0.55-1.02 [facility] Comment on above: Performed By: #### P OCGLUC #### [facility] [address] [address] [address] Soila Pastor EGFR-AF [facility] HELENIAN 39 mL/min/1.73m2 Critically low >=60 [facility] Comment on above: Performed By: #### P OCGLUC #### [facility] [address] [address] [address] Soila Pastor EGFR-NON AF [facility] HELEN[facility] 32 mL/min/1.73m2 Critically low >=60 [facility] Comment on above: Performed By: #### P OCGLUC #### [facility] [address] [address] [address] Soila Pastor Globulin (S) [Mass/Vol] 3.8 g/dL Normal [facility] Comment on above: Performed By: #### P OCGLUC #### [facility] [address] [address] [address] Soila Pastor Glucose [Mass/Vol] 125 mg/dL Critically high 74-106 [facility] Comment on above: Performed By: #### P OCGLUC #### [facility] [address] [address] [address] Soila Pastor Potassium [Moles/Vol] 3.5 mmol/L Normal 3.5-5.1 [facility] Comment on above: Performed By: #### P OCGLUC #### [facility] [address] [address] [address] Soila Pastor Protein [Mass/Vol] 7.0 g/dL Normal 6.4-8.2 [facility] Comment on above: Performed By: #### P OCGLUC #### [facility] [address] [address] [address] Soila Pastor Sodium [Moles/Vol] 137 mmol/L Normal 136-145 [facility] Comment on above: Performed By: #### P OCGLUC #### [facility] [address] [place] [address] Dr. Soila Pastor Urea nitrogen [Mass/Vol] 21.0 mg/dL Critically high 7.0-18.0 [facility] Comment on above: Performed By: #### P OCGLUC #### [facility] [address] [place] [address] Dr. Soila Pastor Urea nitrogen/Creatinin e [Mass ratio] 13.5 mg/mg Normal [facility] Comment on above: Performed By: #### P OCGLUC #### [facility] [address] [place] [address] Dr. Soila Pastor PROTIMEon 10-14-2022 INR Coag (PPP) [Relative time] 1.01 {INR} Normal [facility] Comment on above: Performed By: #### C VDTBH #### [facility] [address] [place] [address] Dr. Soila Pastor INR GUIDELINES SEE BELOW Normal [facility] Comment on above: Result Comment: [place] RED INR: 2.0 - 3.0 CONDITIONS NOT LISTED BELOW 2.5 - 3.5 FOR PROSTHETIC HEART VALVE REPLACEMENT 2.5 - 3.5 RECURRENT THROMBOSIS Performed By: #### C VDTBH #### [facility] [address] [place] [address] Dr. Soila Pastor PT Coag (PPP) [Time] 10.7 s Normal 9.0-11.6 [facility] Comment on above: Performed By: #### C VDTBH #### [facility] [address] [place] [address] Dr. Soila Pastor PTTon 10-14-2022 aPTT Coag (Bld) [Time] 31.5 s Normal 22.3-36.2 [facility] Comment on above: Performed By: #### E RUR #### [facility] [address] [place] [address] Dr. Soila Pastor TROPONIN, HIGH SENSITIVITYon 10-14-2022 HSTROP 8.8 pg/mL Normal 4.0-51.3 [facility] Comment on above: Result Comment: CUT- OFF POINTS HAVE BEEN ESTABLISHED BASED ON THE FOURTH UNIVERSAL DEFINITIONS OF MYOCARDIAL INFARCTION. THE UPPER REFERENCE LIMIT (URL) OF TROPONIN, DEFINED THE 99TH PERCENTILE OF cTnI DISTRIBUTION IN A REFERENCE POPULATION, HAS BEEN CONFIRMED THE DECISION THRESHOLD FOR VA DIAGNOSIS. Performed By: #### P OCGLUC #### [facility] [address] [place], [place] [address] Dr. Soila Pastor TSHon 10-14-2022 TSH 1.240 uIU/mL Normal 0.358-3.740 [facility] Comment on above: Performed By: #### P OCGLUC #### [facility] [address] [place], [place] [address] Dr. Soila Pastor XR ANKLE LT MIN [...] abnormality at the ankle. Electronically authenticated by: Selni MCCALL Date: 2022-10-14 20:16 Normal [facility] XR CHEST 1 Von 10-14-2022 [...] by: KAELA HOOKER Date: 2022-10-14 20:15 Normal [facility] XR CHEST 2 Von 10-14-2022 XR CHEST [...] KARYN WASHINGTON Date: 2022-10-14 11:33 Normal [facility] CT CSPINE WO CONon CT CSPINE WO [...] REED LYNNE Date: 2022-08-24 18:47 Normal [facility] CT HEAD WO CONon 08-24-2022 CT HEAD [...] by: AMAYA FRENCH Date: 2022-08-24 18:57 Normal [facility] XR KNEE RT 4V or >on [...] VIKY WILLIAMSON Date: 2022-08-24 18:59 Normal [facility] US THYROIDon 05-29-2022 US THYROID EXAMINATION: US [...] left thyroid nodules, grossly stable TI-RADS: The [employer] TI-RADS committee's white paper recommendations for thyroid lesions classified as TR4 (moderately suspicious) are listed below: > 1.0 cm. Follow-up ultrasound in 1, 2, 3, and 5 years. > 1.5 cm. FNA. J. Am Nikunj Radiol 2017;14:587-595. Electronically authenticated by: CARLOS SOOD Date: 2022-05-29 11:51 Normal [facility] Carotid Artery Dupl ex Ultrasounon 04-14-2022 [facility] Carotid Artery Duplex Ultrasoun [address], [place] [address] Vascular Lab Report Carotid Artery Duplex Ultrasound Patient Name: JAQUELIN GREG Jacobo Physician: [id number] Martha Navas MD, [facility] Study Date: 04/14/2022 Referring XOCHITL HERNANDEZ Physician: MRN/PID: [id number] PCP: Yossi Landers Accession/Order#: [id number] CC Report to: Date of : 1940 Technologist: Eleanor Marcus RDCS Ana Gender: F Technologist 2: Admission Status: Outpatient Location Performed: [facility] Diagnosis/ICD: 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 Indication: CAD, Cardiomyopathy, Dyspnea, Obesity, COPD, Diabetes, HTN, Hyperlipidemia, Former Smoker Procedure/CPT: 55747 Cerebrovascular Carotid Duplex scan complete-[id number] CONCLUSIONS: Right Carotid: Findings are consistent with [...] cm/s Right Left ICA/CCA Ratio 1.5 1.9 [id number] Martha Navas MD, FACC Final Normal [facility] Carotid Artery Dupl ex Ultrasoundon 04-14-2022 US.doppler Carotid arteries [facility] [address] [place] Work Phone: Height or Weight NOT Doneon 02-26-2022 Fall risk assessment a) No falls within the last year [facility] [place] [address] [place] Work Phone: Tobacco use status CPHS b) No [facility] [employer] [address] DO Work Phone: Office Visit (Cardiology)on [...] Ultrasound; Status:Hold For - Scheduling,Retrospective Authorization; Requested for:[id number]; Laterality : Bilateral SocHx: Former smoker Tobacco [...] 4-5 servings (more content not included)... Normal [facility] US THYROIDon 01-08-2022 US THYROID EXAMINATION: US [...] one year is recommended. TR 4: The [employer] TI-RADS committee's white paper recommendations for thyroid lesions classified as TR4 (moderately suspicious) are listed below: > 1.0 cm. Follow-up ultrasound in 1, 2, 3, and 5 years. > 1.5 cm. FNA. J. Am Nikunj Radiol 2017;14:587-595. Electronically authenticated by: AMAYA GRAMAJO Date: 2022-01-08 08:44 Normal [facility] CREATININEon 12-30-2021 Creatinine [Mass/Vol] 1.03 mg/dL Critically high 0.55-1.02 [facility] Comment on above: Performed By: #### P OCGLUC #### [facility] [address] [address] [address] Soila Pastor EGFR-AF [facility] >60 Normal >=60 [facility] Comment on above: Performed By: #### P OCGLUC #### [facility] [address] [address] [address] Soila Pastor EGFR-NON AF [facility] 52 mL/min/1.73m2 Critically low >=60 [facility] Comment on above: Performed By: #### P OCGLUC #### [facility] [id number] Soila Pastor CT NECK ST W [...] by: CARLOS SOOD Date: 2021-12-30 21:32 Normal [facility] XR MODIFIED BARIUM SWALLOWon 12-05-2021 [...] by: AMAYA GRAMAJO Date: 2021-12-05 17:48 Normal [facility] Echocardiogramon 11-11-2021 Echocardiography [facility] [place] [address] [place] [address], [address], [place] [address] TRANSTHORACIC ECHOCARDIOGRAM REPORT Patient Name: JAQUELIN GARZA Reading Physician: [id number] Xochitl NORWOOD MD Study Date: 11/11/2021 Referring Physician: [id number] XOCHITL HERNANDEZ MRN/PID: [id number] PCP: Yossi Landers Accession/Order#: [id number] Department Location: [facility] Date of : 1940 Fellow: Gender: F Nurse: Admit Date: Machine Lay Out Worker: Eleanor Marcus RDCS, T Height: 162.56 cm CC Report to: Weight: 94.80 kg Study Type: Echocardiogram BSA: 1.99 m2 Blood Pressure: 124 /62 mmHg Diagnosis/ICD: I42.9-Cardiomyopathy, unspecified; R06.00-Dyspnea, unspecified Indication: CAD, HTN, Hyperlipidemia, Former Smoker, Bilateral Carotid Stenosis, Obesity Procedure/CPT: Echo Complete w Full Doppler-[id number] Study Detail: The following Echo studies were [...] AoV Mean P.0 mmHg (1.7-11.5mmHg) LVOT Max Piort: 0.72 m/s (<1.1m/s) AoV VTI: 36.20 cm (18-25cm) LVOT VTI: 18.40 cm LVOT Diameter: 2.30 cm (1.8-2.4cm) AoV Area, VTI: 2.11 cm2 (2.5-5.5cm2) AoV Area,Vmax: 2.05 cm2 (2.5-4.5cm2) AoV Dimensionless Index: 0.51 PULMONIC VALVE: Normal Ranges: PV Max Piotr: 0.9 m/s (0.6-0.9m/s) PV Max P.3 mmHg [id number] Xochitl Hernandez MD Electronically signed on 11/13/2021 at 4:32:53 PM Final Normal [place] Office Visit (Cardiology)on 10-15-2021 Follow-up visit [...] By signing my name below, Alla Irvin Lpn,Miko, attest that this documentation has been prepared under the direction and in the presence of Dr. Xochitl Hernandez MD. All medical record entries made by the Kale[facility] were at my direction and personally dictated [...] up in 4-5 months Retrieve records from [facility] Chief Complaint overdue. JAQUELIN NORWOOD is being [...] EVERY DAY (more content not included)... Normal [employer] Tobacco Screening.on 022 Adult depression screening assessment No [facility] [employer] DO Work Phone: Fall risk assessment a) No falls within the last year [facility] [address] DO Work Phone: Tobacco use status CPHS b) No [facility] [employer] [address] DO Work Phone: Vital Signs Date Time Vital Sign Value Performing Clinician Facility 01-16-2025 11:29-0400 Body height 165.1 cm Yossi Landers MD Work Phone: [facility] 01-16-2025 11:29-0400 Body mass index (BMI) [Ratio] 30.79 kg/m2 Yossi Landers MD Work Phone: [facility] 01-16-2025 11:29-040 Body weight 83.92 kg Yossi Landers MD Work Phone: [facility] 01-16-2025 11:29-0400 Heart rate 70 /min Yossi Landers MD Work Phone: [facility] 01-16-2025 11:29-0400 SaO2% (BldA) [Mass fraction] 98 % Yossi Landers MD Work Phone: [facility] 01-09-2025 09:55-0400 Body height 165.1 cm Yossi Landers MD Work Phone: [facility] 01-09-2025 09:55-0400 Body mass index (BMI) [Ratio] 33.12 kg/m2 Yossi Landers MD Work Phone: [facility] 01-09-2025 09:55-0400 Body weight 90.27 kg Yossi Landers MD Work Phone: [facility] 01-09-2025 09:55-0400 Diastolic blood pressure 62 mm[Hg] Yossi Landers MD Work Phone: [facility] 01-09-2025 09:55-0400 Heart rate 66 /min Yossi Landers MD Work Phone: [facility] 01-09-2025 09:55-0400 Respiratory rate 17 /min Yossi Landers MD Work Phone: [facility] 01-09-2025 09:55-0400 SaO2% (BldA) [Mass fraction] 99 % Yossi Landers MD Work Phone: [facility] 01-09-2025 09:55-0400 Systolic blood pressure 100 mm[Hg] Yossi Landers MD Work Phone: [facility] 12-29-2024 14:43-0400 Body mass index (BMI) [Ratio] 27.64 kg/m2 Yen PALACIOS Work Phone: [facility] 12-29-2024 14:43-0400 Body weight 75.35 kg Yen PALACIOS Work Phone: [facility] 12-29-2024 14:43-0400 Diastolic blood pressure 70 mm[Hg] Yen PALACIOS Work Phone: [facility] 12-29-2024 14:43-0400 Systolic blood pressure 120 mm[Hg] Yen Kalyani PA Work Phone: [facility] 11-07-2024 11:05-0400 Body height 165.1 cm Yossi Landers MD Work Phone: [facility] 11-07-2024 11:05-0400 Body mass index (BMI) [Ratio] 30.29 kg/m2 Yossi Landers MD Work Phone: [facility] 11-07-2024 11:05-0400 Body weight 82.56 kg Yossi Landers MD Work Phone: [facility] 11-07-2024 11:05-0400 Diastolic blood pressure 72 mm[Hg] Yossi Landers MD Work Phone: [facility] 11-07-2024 11:05-0400 Heart rate 67 /min Yossi Landers MD Work Phone: [facility] 11-07-2024 11:05-0400 SaO2% (BldA) [Mass fraction] 97 % Yossi Landers MD Work Phone: [facility] 11-07-2024 11:05-0400 Systolic blood pressure 128 mm[Hg] Yossi Landers MD Work Phone: [facility] 10-07-2024 10:30-0400 Body height 165.1 cm Can Hemmer PA Work Phone: [facility] 10-07-2024 10:30-0400 Body mass index (BMI) [Ratio] 31.12 kg/m2 Can Hemmer PA Work Phone: [facility] 10-07-2024 10:30-0400 Body weight 84.82 kg Can Hemmer PA Work Phone: [facility] 10-07-2024 10:30-0400 Diastolic blood pressure 76 mm[Hg] Can Hemmer PA Work Phone: [facility] 10-07-2024 10:30-0400 Heart rate 80 /min Can Hemmer PA Work Phone: [facility] 10-07-2024 10:30-0400 SaO2% (BldA) [Mass fraction] 97 % Can Hemmer PA Work Phone: [facility] 10-07-2024 10:30-0400 Systolic blood pressure 134 mm[Hg] Can Hemmer PA Work Phone: [facility] 09-29-2024 10:57-0400 Body height 165.1 cm Can Hemmer PA Work Phone: [facility] 09-29-2024 10:57-0400 Diastolic blood pressure 78 mm[Hg] Can Hemmer PA Work Phone: [facility] 09-29-2024 10:57-0400 Heart rate 73 /min Can Hemmer PA Work Phone: [facility] 09-29-2024 10:57-0400 Respiratory rate 18 /min Can Hemmer PA Work Phone: [facility] 09-29-2024 10:57-0400 SaO2% (BldA) [Mass fraction] 94 % Can Hemmer PA Work Phone: [facility] 09-29-2024 10:57-0400 Systolic blood pressure 136 mm[Hg] Can Hemmer PA Work Phone: [facility] 09-14-2024 11:08-0400 Body height 165.1 cm Yossi Landers MD Work Phone: [facility] 09-14-2024 11:08-0400 Body mass index (BMI) [Ratio] 33.45 kg/m2 Yossi Landers MD Work Phone: [facility] 09-14-2024 11:08-0400 Body weight 91.17 kg Yossi Landers MD Work Phone: [facility] 09-14-2024 11:08-0400 Diastolic blood pressure 64 mm[Hg] Yossi Landers MD Work Phone: [facility] 09-14-2024 11:08-0400 Heart rate 67 /min Yossi Landers MD Work Phone: [facility] 09-14-2024 11:08-0400 SaO2% (BldA) [Mass fraction] 96 % Yossi Landers MD Work Phone: [facility] 09-14-2024 11:08-0400 Systolic blood pressure 110 mm[Hg] Yossi Landers MD Work Phone: [facility] 07-29-2024 09:00-0500 Body height 165.1 cm Kristen Nataliia DO Work Phone: [facility] 07-29-2024 09:00-0500 Body mass index (BMI) [Ratio] 31.12 kg/m2 Kristen Nataliia DO Work Phone: [facility] 07-29-2024 09:00-0500 Body weight 84.82 kg Kristen Nataliia DO Work Phone: [facility] 07-29-2024 09:00-0500 Diastolic blood pressure 71 mm[Hg] Kristen Nataliia DO Work Phone: [facility] 07-29-2024 09:00-0500 Heart rate 63 /min Kristen Nataliia DO Work Phone: [facility] 07-29-2024 09:00-0500 SaO2% (BldA) [Mass fraction] 88 % Kristen Nataliia DO Work Phone: [facility] 07-29-2024 09:00-0500 Systolic blood pressure 123 mm[Hg] Kristen Nataliia DO Work Phone: [facility] 07-25-2024 10:50-0500 Body height 165.1 cm Yossi Landers MD Work Phone: [facility] 07-25-2024 10:50-0500 Body mass index (BMI) [Ratio] 31.12 kg/m2 Yossi Landers MD Work Phone: [facility] 07-25-2024 10:50-0500 Body weight 84.82 kg Yossi Landers MD Work Phone: [facility] 07-25-2024 10:50-0500 Diastolic blood pressure 70 mm[Hg] Yossi Landers MD Work Phone: [facility] 07-25-2024 10:50-0500 Heart rate 86 /min Yossi Landers MD Work Phone: [facility] 07-25-2024 10:50-0500 SaO2% (BldA) [Mass fraction] 97 % Yossi Landers MD Work Phone: [facility] 07-25-2024 10:50-0500 Systolic blood pressure 122 mm[Hg] Yossi Landers MD Work Phone: [facility] 07-21-2024 16:16-0500 Body height 165.1 cm Alessandro Austen DPM Work Phone: [facility] 07-21-2024 16:16-0500 Body mass index (BMI) [Ratio] 29.62 kg/m2 Alessandro Levi DPM Work Phone: [facility] 07-21-2024 16:16-0500 Body weight 80.74 kg Alessandro Brown DPM Work Phone: [facility] 07-21-2024 16:16-0500 Respiratory rate 18 /min Alessandro Levi DPM Work Phone: [facility] 07-12-2024 14:17-0500 Body height 165.1 cm Bel Ojeda MD Work Phone: [facility] 07-12-2024 14:17-0500 Body mass index (BMI) [Ratio] 29.62 kg/m2 Bel Ojeda MD Work Phone: [facility] 07-12-2024 14:17-0500 Body weight 80.74 kg Bel Ojeda MD Work Phone: [facility] 07-12-2024 14:17-0500 Diastolic blood pressure 60 mm[Hg] Bel Ojeda MD Work Phone: [facility] 07-12-2024 14:17-0500 Heart rate 69 /min Bel Ojeda MD Work Phone: [facility] 07-12-2024 14:17-0500 Systolic blood pressure 117 mm[Hg] Bel Ojeda MD Work Phone: [facility] 06-10-2024 10:50-0500 Body height 165.1 cm Yossi Landers MD Work Phone: [facility] 06-10-2024 10:50-0500 Body mass index (BMI) [Ratio] 29.62 kg/m2 Yossi Landers MD Work Phone: [facility] 06-10-2024 10:50-0500 Body weight 80.74 kg Yossi Landers MD Work Phone: [facility] 06-10-2024 10:50-0500 Diastolic blood pressure 68 mm[Hg] Yossi Landers MD Work Phone: [facility] 06-10-2024 10:50-0500 Heart rate 77 /min Yossi Landers MD Work Phone: [facility] 06-10-2024 10:50-0500 SaO2% (BldA) [Mass fraction] 98 % Yossi Landers MD Work Phone: [facility] 06-10-2024 10:50-0500 Systolic blood pressure 126 mm[Hg] Yossi Landers MD Work Phone: [facility] 05-16-2024 13:06-0500 Body height 165.1 cm Yossi Landers MD Work Phone: [facility] 05-16-2024 13:06-0500 Diastolic blood pressure 70 mm[Hg] Yossi Landers MD Work Phone: [facility] 05-16-2024 13:06-0500 Heart rate 65 /min Yossi Landers MD Work Phone: [facility] 05-16-2024 13:06-0500 SaO2% (BldA) [Mass fraction] 99 % Yossi Landers MD Work Phone: [facility] 05-16-2024 13:06-0500 Systolic blood pressure 124 mm[Hg] Yossi Landers MD Work Phone: [facility] 05-02-2024 11:10-0500 Body height 165.1 cm Yossi Landers MD Work Phone: [facility] 05-02-2024 11:10-0500 Body mass index (BMI) [Ratio] 29.79 kg/m2 Yossi Landers MD Work Phone: [facility] 05-02-2024 11:10-0500 Body weight 81.19 kg Yossi Landers MD Work Phone: [facility] 05-02-2024 11:10-0500 Diastolic blood pressure 66 mm[Hg] Yossi Landers MD Work Phone: [facility] 05-02-2024 11:10-0500 Heart rate 73 /min Yossi Landers MD Work Phone: [facility] 05-02-2024 11:10-0500 SaO2% (BldA) [Mass fraction] 97 % Yossi Landers MD Work Phone: [facility] 05-02-2024 11:10-0500 Systolic blood pressure 118 mm[Hg] Yossi Landers MD Work Phone: [facility] 04-28-2024 13:43-0500 Body height 165.1 cm Alessandro Levi DPM Work Phone: [facility] 04-28-2024 13:43-0500 Body mass index (BMI) [Ratio] 31.95 kg/m2 Alessandro Levi DPM Work Phone: [facility] 04-28-2024 13:43-0500 Body weight 87.09 kg Alessandro Levi DPM Work Phone: [facility] 04-28-2024 13:43-0500 Diastolic blood pressure 80 mm[Hg] Alessandro Levi DPM Work Phone: [facility] 04-28-2024 13:43-0500 Heart rate 82 /min Alessandro Levi DPM Work Phone: [facility] 04-28-2024 13:43-0500 Systolic blood pressure 126 mm[Hg] Alessandro Levi DPM Work Phone: [facility] 03-08-2024 10:42-0400 Blood Pressure Location Mohamad Mouchli [facility] 03-08-2024 10:42-0400 Diastolic blood pressure 85 mm[Hg] Mohamad Mouchli [facility] 03-08-2024 10:42-0400 Heart rate 80 /min Mohamad Mouchli [facility] 03-08-2024 10:42-0400 Mean blood pressure 102 mm[Hg] Mohamad Mouchli [facility] 03-08-2024 10:42-0400 Respiratory rate 15 /min Mohamad Mouchli [facility] 03-08-2024 10:42-0400 SaO2% (BldA) [Mass fraction] 97 % Mohamad Mouchli [facility] 03-08-2024 10:42-0400 Systolic blood pressure 137 mm[Hg] Mohamad Mouchli [facility] 03-08-2024 10:30-0400 Blood Pressure Location Mohamad Mouchli [facility] 03-08-2024 10:30-0400 Diastolic blood pressure 94 mm[Hg] Mohamad Mouchli [facility] 03-08-2024 10:30-0400 Heart rate 82 /min Mohamad Mouchli [facility] 03-08-2024 10:30-0400 Mean blood pressure 106 mm[Hg] Mohamad Mouchli [facility] 03-08-2024 10:30-0400 Respiratory rate 27 /min Mohamad Mouchli [facility] 03-08-2024 10:30-0400 SaO2% (BldA) [Mass fraction] 99 % Mohamad Mouchli [facility] 03-08-2024 10:30-0400 Systolic blood pressure 129 mm[Hg] Mohamad Mouchli [facility] 03-08-2024 10:25-0400 Blood Pressure Location Mohamad Mouchli [facility] 03-08-2024 10:25-0400 Diastolic blood pressure 57 mm[Hg] Mohamad Mouchli [facility] 03-08-2024 10:25-0400 Heart rate 82 /min Mohamad Mouchli [facility] 03-08-2024 10:25-0400 Mean blood pressure 78 mm[Hg] Mohamad Mouchli [facility] 03-08-2024 10:25-0400 Respiratory rate 17 /min Mohamad Mouchli [facility] 03-08-2024 10:25-0400 SaO2% (BldA) [Mass fraction] 98 % Mohamad Mouchli [facility] 03-08-2024 10:25-0400 Systolic blood pressure 120 mm[Hg] Mohamad Mouchli [facility] 03-08-2024 10:17-0400 Body temperature 97.34 [degF] Mohamad Mouchli [facility] 03-08-2024 08:46-0400 Body temperature 98.06 [degF] Mohamad Mouchli [facility] 03-08-2024 08:46-0400 Respiratory rate 20 /min Mohamad Mouchli [facility] 02-18-2024 13:23-0400 Body height 165.1 cm Alessandro Levi DPM Work Phone: [facility] 02-18-2024 13:23-0400 Body mass index (BMI) [Ratio] 31.95 kg/m2 Alessandro Levi DPM Work Phone: [facility] 02-18-2024 13:23-0400 Body weight 87.09 kg Alessandro Levi DPM Work Phone: [facility] 02-18-2024 13:23-0400 Diastolic blood pressure 80 mm[Hg] Alessandro Levi DPM Work Phone: [facility] 02-18-2024 13:23-0400 Heart rate 88 /min Alessandro Levi DPM Work Phone: [facility] 02-18-2024 13:23-0400 Systolic blood pressure 125 mm[Hg] Alessandro Levi DPM Work Phone: [facility] 02-03-2024 10:52-0400 Diastolic blood pressure 67 mm[Hg] Mohamad Mouchli [facility] 02-03-2024 10:52-0400 Heart rate 80 /min Mohamad Mouchli [facility] 02-03-2024 10:52-0400 Mean blood pressure 87 mm[Hg] Mohamad Mouchli [facility] 02-03-2024 10:52-0400 Respiratory rate 29 /min Mohamad Mouchli [facility] 02-03-2024 10:52-0400 SaO2% (BldA) [Mass fraction] 100 % Mohamad Mouchli [facility] 02-03-2024 10:52-0400 Systolic blood pressure 127 mm[Hg] Mohamad Mouchli [facility] 02-03-2024 10:45-0400 Diastolic blood pressure 67 mm[Hg] Mohamad Mouchli [facility] 02-03-2024 10:45-0400 Heart rate 76 /min Mohamad Mouchli [facility] 02-03-2024 10:45-0400 Mean blood pressure 87 mm[Hg] Mohamad Mouchli [facility] 02-03-2024 10:45-0400 Respiratory rate 22 /min Mohamad Mouchli [facility] 02-03-2024 10:45-0400 SaO2% (BldA) [Mass fraction] 99 % Mohamad Mouchli [facility] 02-03-2024 10:45-0400 Systolic blood pressure 127 mm[Hg] Mohamad Mouchli [facility] 02-03-2024 10:40-0400 Diastolic blood pressure 67 mm[Hg] Mohamad Mouchli [facility] 02-03-2024 10:40-0400 Heart rate 76 /min Mohamad Mouchli [facility] 02-03-2024 10:40-0400 Mean blood pressure 87 mm[Hg] Mohamad Mouchli [facility] 02-03-2024 10:40-0400 Respiratory rate 28 /min Mohamad Mouchli [facility] 02-03-2024 10:40-0400 SaO2% (BldA) [Mass fraction] 100 % Mohamad Mouchli [facility] 02-03-2024 10:40-0400 Systolic blood pressure 127 mm[Hg] Mohamad Mouchli [facility] 02-03-2024 10:30-0400 Blood Pressure Location Mohamad Mouchli [facility] 02-03-2024 10:30-0400 Body temperature 97.7 [degF] Mohamad Mouchli [facility] 02-03-2024 10:25-0400 Respiratory rate 10 /min Mohamad Mouchli [facility] 02-03-2024 10:20-0400 Respiratory rate 10 /min Mohamad Mouchli [facility] 02-03-2024 10:15-0400 Respiratory rate 10 /min Mohamad Mouchli [facility] 02-03-2024 08:55-0400 Blood Pressure Location Mohamad Mouchli [facility] 02-03-2024 08:55-0400 Body temperature 97.7 [degF] Mohamad Mouchli [facility] 12-21-2023 13:43-0400 Blood Pressure Location Mohamad Mouchli [facility] 12-21-2023 13:43-0400 Diastolic blood pressure 78 mm[Hg] Mohamad Mouchli [facility] 12-21-2023 13:43-0400 Heart rate 76 /min Mohamad Mouchli [facility] 12-21-2023 13:43-0400 Respiratory rate 16 /min Mohamad Mouchli [facility] 12-21-2023 13:43-0400 Systolic blood pressure 118 mm[Hg] Mohamad Mouchjalen [facility] 02-26-2022 15:04-0400 Body height 162.56 cm Xochitl Hernandez MD Work Phone: [facility] DO Work Phone: 02-26-2022 15:04-0400 Body mass index (BMI) [Ratio] Medical Reason Not Done Xochitl Hernandez MD Work Phone: [facility] DO Work Phone: 02-26-2022 15:04-0400 Diastolic blood pressure 64 mm[Hg] Xochitl Hernandez MD Work Phone: [facility] DO Work Phone: 02-26-2022 15:04-0400 Heart rate 72 /min Xochitl Hernandez MD Work Phone: [facility] DO Work Phone: 02-26-2022 15:04-0400 Systolic blood pressure 120 mm[Hg] Xochitl Hernandez MD Work Phone: [facility] DO Work Phone: 10-15-2021 12:59-0400 Body height 162.56 cm Xochitl Hernandez MD Work Phone: [facility] DO Work Phone: 10-15-2021 12:59-0400 Body mass index (BMI) [Ratio] 35.87 kg/m2 Xochitl Hernandez MD Work Phone: [facility] DO Work Phone: 10-15-2021 12:59-0400 Body surface area Derived from formula 1.99 m2 Xochitl Hernandez MD Work Phone: [facility] DO Work Phone: 10-15-2021 12:59-0400 Body weight 94.8 kg Xochitl Hernandez MD Work Phone: [facility] DO Work Phone: 10-15-2021 12:59-0400 Diastolic blood pressure 68 mm[Hg] Xochitl Hernandez MD Work Phone: [facility] DO Work Phone: 10-15-2021 12:59-0400 Heart rate 66 /min Xochitl Hernandez MD Work Phone: [facility] DO Work Phone: 10-15-2021 12:59-0400 Systolic blood pressure 124 mm[Hg] Xochitl Hernandez MD Work Phone: [facility] DO Work Phone: Encounters Encounter Date Encounter Type Care Provider Facility Start: 01-16-2025 End: 01-16-2025 Bamboo flowsheet Yossi Landers MD Work Phone: [facility] Start: 01-16-2025 End: 01-16-2025 Bamboo flowsheet Yossi Landers MD Work Phone: [facility] Start: 01-16-2025 End: 01-16-2025 Transitional care manage srvc 14 day discharge Yossi Landers MD Work Phone: [facility] Comment on above: Panlobular emphysema (HCC) (Primary Dx); Depression with anxiety; Acute on chronic diastolic congestive heart failure (HCC); Chronic combined systolic and diastolic congestive heart failure (HCC) Start: 01-16-2025 End: 01-16-2025 ambulatory YOSSI LNADERS Not Available Start: 01-09-2025 End: 01-09-2025 Bamboo flowsheet Yossi Landers MD Work Phone: [facility] Start: 01-09-2025 End: 01-09-2025 Bamboo flowsheet Yossi Landers MD Work Phone: [facility] Start: 01-09-2025 End: 01-09-2025 Office outpatient visit 25 minutes Yossi Landers MD Work Phone: [facility] Comment on above: Acute on chronic com bined systolic and diastolic heart failure (HCC) (Primary Dx); Panlobular emphysema (HCC); Other specified hypotension; Unspecified dementia, unspecified severity, without behavioral disturbance, psychotic disturbance, mood disturbance, and anxiety (HCC) Start: 01-09-2025 End: 01-09-2025 ambulatory YOSSI LANDERS Not Available Start: 01-08-2025 End: 01-09-2025 Refill Yossi Landers MD Work Phone: [facility] Comment on above: Acquired hypothyroid ism ; Gastroesophageal reflux disease without esophagitis; Mixed hyperlipidemia ; Essential hypertension ; Depression with anxiety; Chronic combined systolic and diastolic congestive heart failure (HCC) Start: 01-03-2025 End: 01-03-2025 Refill Yossi Landers MD Work Phone: [facility] Comment on above: Depression with anxi ety Start: 12-29-2024 End: 12-29-2024 Office outpatient visit 15 minutes Yen PALACIOS Work Phone: [facility] Comment on above: Vaginal discomfort Start: 12-29-2024 End: 12-29-2024 ambulatory YEN AUGUSTE Not Available Start: 12-29-2024 End: 12-29-2024 Bamboo flowsheet Yen PALACIOS Work Phone: [facility] Start: 12-29-2024 End: 12-29-2024 Bamboo flowsheet Yen PALACIOS Work Phone: [facility] Start: 12-03-2024 End: 12-05-2024 Refill Yossi Landers MD Work Phone: [facility] Comment on above: Depression with anxi ety; Degenerative lumbar spinal stenosis Start: 11-07-2024 End: 11-07-2024 Bamboo flowsheet Yossi Landers MD Work Phone: [facility] Start: 11-07-2024 End: 11-07-2024 Bamboo flowsheet Yossi Landers MD Work Phone: [facility] Start: 11-07-2024 End: 11-07-2024 Assay of hemosiderin, quant Yossi Landers MD Work Phone: [facility] Start: 11-07-2024 End: 11-07-2024 Patient encounter procedure Yossi Landers MD Work Phone: [facility] Comment on above: Routine general medi connor examination at health care facility (Primary Dx); ACP (advance care planning); Nausea; Panlobular emphysema (CMS/HCC); 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); Cognitive impairment Start: 11-07-2024 End: 11-07-2024 ambulatory YOSSI LANDERS Not Available Start: 10-27-2024 End: 10-27-2024 Refill Can PALACIOS Work Phone: [facility] Comment on above: Nausea Start: 10-13-2024 End: 10-13-2024 Telephone encounter Can PALACIOS Work Phone: [facility] Comment on above: diuretic Start: 10-07-2024 End: 10-07-2024 Office outpatient visit 25 minutes Can PALACIOS Work Phone: [facility] Comment on above: Community acquired p neumonia, unspecified laterality (Primary Dx); Nausea; Bilateral lower extremity edema; Generalized weakness; 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) Start: 10-07-2024 End: 10-07-2024 ambulatory CAN MASON Not Available Start: 10-01-2024 End: 10-01-2024 Clinisync Result Encounter Generic External Data Provider [facility] Unsolicited Start: 10-01-2024 End: 10-01-2024 Clinisync Result Encounter Generic External Data Provider [facility] External Department Unsolicited Start: 10-01-2024 End: 10-01-2024 ambulatory Yossi Landers II Work Phone: [facility] Work Phone: Start: 10-01-2024 End: 10-01-2024 Departed Referred Yossi Landers II Work Phone: [facility] Start: 09-29-2024 End: 09-29-2024 Bamboo flowsheet Can Mason PA Work Phone: [facility] Start: 09-29-2024 End: 09-29-2024 Bamboo flowsheet Can Mason PA Work Phone: [facility] Start: 09-29-2024 End: 09-29-2024 Office outpatient visit 25 minutes Can Mason PA Work Phone: [facility] Comment on above: Community acquired p neumonia, unspecified laterality (Primary Dx); Hyponatremia; Panlobular emphysema (CMS/HCC); Nausea; Gastroesophageal reflux disease without esophagitis; 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) Start: 09-29-2024 End: 09-29-2024 ambulatory CAN MASON Not Available Start: 09-27-2024 End: 09-29-2024 Clinisync Result Encounter [...] RN Work Phone: [facility] Start: 08-14-2024 Non-patient / Non-visit [facility] Anshul ENGLE [facility]: Start: 08-13-2024 End: 08-13-2024 ambulatory Yossi Landers ONIEL Work Phone: [facility] Work Phone: Start: 08-13-2024 End: 08-13-2024 Departed Referred Yossi Anshul ENGLE Work Phone: [facility] Start: 08-13-2024 End: 08-15-2024 Clinisync Result Encounter Generic External Data Provider [facility] External Department Unsolicited Start: 08-13-2024 End: 08-15-2024 Clinisync Result Encounter Generic External Data Provider [facility] External Department Unsolicited Start: 08-06-2024 End: 08-08-2024 Refill Yossi Landers MD Work Phone: [facility] Comment on above: Nausea Degenerative lumbar spinal stenosis; Depression with anxiety Start: 07-29-2024 End: 07-29-2024 Bamboo flowsheet Kristen Wliliam DO Work Phone: [facility] Start: 07-29-2024 End: 07-29-2024 Bamboo flowsheet Kristen William DO Work Phone: [facility] Start: 07-29-2024 End: 07-29-2024 Office outpatient new 45 minutes Kristen William DO Work Phone: [facility] Comment on above: Hypersomnolence (Melvi radames Dx); Panlobular emphysema (CMS/HCC) Start: 07-29-2024 End: 07-29-2024 ambulatory KRISTEN Fatoumata NATALIIA Not Available Start: 07-25-2024 End: 07-25-2024 Bamboo [...] Not Available Start: 07-03-2024 End: 07-04-2024 Refill Can PALACIOS Work Phone: [facility] Comment [...] Not Available Start: 05-02-2024 End: 05-02-2024 Bamboo flowsheet Yossi Landers MD Work Phone: [facility] Start: 05-02-2024 End: 05-02-2024 Bamboo flowsheet Yossi Landers MD Work Phone: [...] Start: 03-08-2024 End: 03-08-2024 ambulatory Mandi Glez Facility:[facility] Start: 03-08-2024 End: 03-08-2024 Patient encounter procedure Mandi Glez [facility] Start: 03-02-2024 End: 03-02-2024 Refill Can PALACIOS Work Phone: [facility] Comment [...] neuropathy, without long-term current use of insulin ([facility]); Onychomycosis; Toe pain, bilateral Start: 02-18-2024 End: 02-18-2024 ambulatory ALESSANDRO LEVI Not Available Start: 02-03-2024 End: 02-03-2024 ambulatory Mandi Glez Facility:[facility] Start: 02-03-2024 End: 02-03-2024 Patient encounter procedure Mandi Glez [facility] Start: 01-28-2024 End: 01-28-2024 ambulatory CAN FLOODYING Not Available Start: 01-20-2024 End: 01-20-2024 ambulatory YOSSI LANDERS Not Available Start: 12-21-2023 End: 12-21-2023 ambulatory Mandi Glez Facility:[facility] Start: 12-21-2023 End: 12-21-2023 Patient encounter procedure Mandi Glez [facility] Start: 12-07-2023 ambulatory Mandi Glez Facilit y:[facility] Start: 08-03-2023 Refill Lara Thursday L PN Work Phone: [facility] Comment on above: Degenerative lumbar spinal stenosis; Depression with anxiety Start: 07-27-2023 Refill Yossi Landers MD Work Phone: [facility] Comment on above: Essential hypertensi on ([facility]) Start: 10-15-2022 End: 10-16-2022 Evaluation and management of inpatient TANYA CARMEN . Facility:[facility] Start: 10-14-2022 End: 10-15-2022 ambulatory KARYN WASHINGTON Facility:[facility] Start: 08-24-2022 End: 08-24-2022 ambulatory LAYNE TERRAZAS Facility:H1 Start: 05-29-2022 End: 05-30-2022 ambulatory BELDIPAK OJEDA Facility:H1 Start: 04-14-2022 Patient encounter procedure [id number] ERICA [facility]VI ULTRASOUND 01 Work Phone: -[facility] [address] [place] Work Phone: Start: 04-14-[address] Xochitl Hernandez Facility:[id number] Start: 02-26-2022 Office outpatient vi sit 25 minutes Xochitl Hernandez MD Work Phone: [facility] 250 DO Work Phone: Start: 01-07-2022 End: 01-08-2022 ambulatory BEL OJEDA Facility:H1 Start: 12-30-2021 End: 12-31-[address] YOSSI LANDERS Facility:H1 Start: 12-05-2021 End: 12-06-[address] YOSSI LANDERS Facility:H1 Start: 11-11-[address] Xochitl Hernandez Facility:[id number] Start: 10-15-2021 Office outpatient vi sit 25 minutes Xochitl Hernandez MD Work Phone: [facility] 250 DO Work Phone: Procedures Date Procedure Procedure Detail Performing Clinician Start: 10-01-2024 URINE CULTURE - [facility] Generic External Data Provider Start: 09-27-2024 BLOOD CULTURE 2 Generic External Data Provider Start: 09-27-2024 BLOOD CULTURE 1 Generic External Data Provider Start: 08-13-2024 URINE CULTURE - [facility] Generic External Data Provider Start: 08-13-2024 Urine culture Yossi Landers II Work Phone: Start: 05-03-2024 Brncdilat rspse spmtry pre&post-brncdilat admn [...] Activity Detail Author Start: 02-20-2025 Influenza vaccination [facility] Start: 01-30-2025 End: 01-30-2025 Patient encounter procedure 01/30/2025 2:15 PM EDT Office Visit [facility] [address] [place] [address] Yossi Landers MD [address] [place] [address] [facility] Start: 01-27-2025 Urine screening for protein Diabetes: Urine Protein Screening [facility] Start: 01-16-2025 End: 01-16-2025 Patient encounter procedure 01/16/2025 11:30 AM EDT Office Visit [facility] [facility] [address] [place] [address] Yossi Landers MD [address] [place] [address] Arrived [facility] Comment on above: Arrived Start: 01-09-2025 End: 01-09-2025 Patient encounter procedure [facility] Comment on above: Arrived Start: 12-29-2024 End: 12-29-2024 Patient encounter procedure 12/29/2024 2:30 PM EDT Office Visit [facility] [address] [place] [address] Yen Auguste PA [address] [place] [address] Arrived [facility] Comment on above: Arrived Start: 12-08-2024 Hemoglobin A1c measurement Diabetes: Hemoglobin A1C [facility] Start: 11-07-2024 End: 11-07-2025 Comprehensive metabolic 2000 panel - Serum or Plasma Comprehensive metabolic panel Lab Routine Chronic combined systolic and diastolic congestive heart failure ([facility]) Expected: 11/07/2024 (Approximate), Expires: 11/07/2025 [facility] Work Phone: Comment on above: Expected: 11/07/2024 (Approximate), Expires: 11/07/2025 Start: 11-07-2024 End: 11-07-2025 Lipid 1996 panel - Serum or Plasma Lipid panel Lab Routine Chronic combined systolic and diastolic congestive heart failure ([facility]) Expected: 11/07/2024 (Approximate), Expires: 11/07/2025 [facility] Comment on above: Expected: 11/07/2024 (Approximate), Expires: 11/07/2025 Start: 11-07-2024 End: 11-07-2025 Thyrotropin [Units/volume] in Serum or Plasma TSH Lab Routine Chronic combined systolic and diastolic congestive heart failure ([facility]) Expected: 11/07/2024 (Approximate), Expires: 11/07/2025 [facility] Comment on above: Expected: 11/07/2024 (Approximate), Expires: 11/07/2025 Start: 11-07-2024 End: 11-07-2025 Thyroxine (T4) free [Mass/volume] in Serum or Plasma T4, free Lab Routine Chronic combined systolic and diastolic congestive heart failure ([facility]) Expected: 11/07/2024 (Approximate), Expires: 11/07/2025 [facility] Comment on above: Expected: 11/07/2024 (Approximate), Expires: 11/07/2025 Start: 11-07-2024 End: 11-07-2024 Patient encounter procedure [facility] Comment on above: Arrived Start: 10-07-2024 End: 10-07-2024 Patient encounter procedure 10/07/2024 10:30 AM EDT Office Visit [facility] [address] [facility] [address] [place] [id number] Can Mason PA [address] [place] [address] [facility] Start: 10-06-2024 End: 10-06-2024 Patient encounter procedure [facility] Start: 10-01-2024 Bacteria identified in Urine by Culture Urine Culture [facility] Start: 10-01-2024 Urine culture [facility] Start: 09-29-2024 End: 09-29-2024 Patient encounter procedure 09/29/2024 11:00 AM EDT Office Visit [facility] [address] [place] [address] Can Mason PA [address] [place] [address] Arrived [facility] Comment on above: Arrived Start: 09-23-2024 End: 09-23-2024 Patient encounter procedure 09/23/2024 11:00 AM EDT Office Visit [facility] [address] [place] [id number] Kristen William, DO [address] [facility] [place] [address] [facility] Start: 09-22-2024 End: 09-22-2024 Patient encounter procedure 09/22/2024 11:30 AM EDT Office Visit [facility] [address] [place] [address] Yossi Landers MD [address] [place] [address] [facility] Start: 09-14-2024 End: 09-14-2024 Patient encounter procedure 09/14/2024 11:15 AM EDT Office Visit [facility] [address] [place] [address] Yossi Landers MD [address] [place] [address] Arrived [facility] Comment on above: Arrived Start: 08-13-2024 Urine culture [facility] Start: 08-13-2024 Bacteria identified in Urine by Culture Urine Culture [facility] Start: 08-02-2024 Hemoglobin A1c measurement Diabetes: Hemoglobin A1C [facility] Start: 07-29-2024 End: 07-29-2024 Patient encounter procedure [facility] Comment on above: Panlobular emphysema ([facility]) Start: 07-25-2024 End: 07-25-2024 Patient encounter procedure [facility] Comment on above: Arrived Start: 07-21-2024 End: 07-21-2024 Patient encounter procedure [facility] Comment on above: Type 2 diabetes gail itus with diabetic neuropathy, without long-term current use of insulin ([facility]) (Primary Dx); Pain due to onychomycosis of toenails of both feet; Venous insufficiency Start: 07-12-2024 End: 07-12-2024 Patient encounter procedure 07/12/2024 2:20 PM EST Office Visit [facility] [address] [facility] [address] [place] [address] Bel Ojeda MD [address] [facility] [address] [place] [address] [facility] Start: 07-07-2024 End: 07-07-2024 Patient encounter procedure 07/07/2024 1:40 PM EST Office Visit [facility] [address] [facility] [address] [place] [address] Alessandro Levi DPM [address] [facility] [address] [place], [place] [id number] [facility] Start: 06-30-2024 End: 06-30-2024 Patient encounter procedure 06/30/2024 11:45 AM EST Office Visit [facility] [address] [facility] [address] [place] [address] Yossi Landers MD [address] [facility] [address] [place] [address] [facility] Start: 06-10-2024 End: 06-10-2024 Patient encounter procedure [facility] Comment on above: Arrived Start: 05-16-2024 End: 05-16-2024 Patient encounter procedure [facility] Comment on above: Arrived Start: 05-02-2024 End: 05-02-2024 Patient encounter procedure 05/02/2024 11:30 AM EST Office Visit [facility] [address] [facility] [address] [place] [address] Yossi Landers MD [address] [facility] [address] [place] [address] [facility] Start: 04-28-2024 End: 04-28-2024 Patient encounter procedure [facility] Comment on above: Type 2 diabetes gail itus with diabetic neuropathy, without long-term current use of insulin ([facility]) (Primary Dx); Pain due to onychomycosis of toenails of both feet; Venous insufficiency Start: 03-15-2024 Hemoglobin A1c measurement Diabetes: Hemoglobin A1C [facility] Start: 02-21-2024 Influenza vaccination Influenza Vacc ine (#1) [facility] Start: 02-18-2024 End: 02-18-2024 Patient encounter procedure 02/18/2024 1:20 PM EDT Office Visit [facility] [address] [facility] [address] [place] [address] Alessandro Levi DPM [address] [facility] [address] [place] [address] Thickened nail; Type 2 diabetes [...] 02-20-2023 Influenza vaccination Influenza Vacc ine (#1) [facility] Start: 08-12-2022 FUV, Provider: Xochitl Hernandez, Status: Pen, Time: 2:20 PM FUV, Provider: Xochitl Hernandez, Status: Pen, Time: 2:20 PM [facility] DO Work Phone: Start: 04-14-2022 CAROTID, Provider: ERICA HHVI ULTRASOUND 01,[id number], Status: Pen, Time: 10:45 AM CAROTID, Provider: ERICA [facility]VI ULTRASOUND 01,[id number], Status: Pen, Time: 10:45 AM [facility] DO Work Phone: Start: 02-26-2022 FUV, Provider: Xochitl Hernandez, Status: Pen, Time: 2:40 PM FUV, Provider: Xochitl Hernandez, Status: Pen, Time: 2:40 PM [facility] DO Work Phone: Start: 11-11-2021 ECHO, Provider: MEERA KHAN HHVI ULTRASOUND 01,[id number], Status: Pen, Time: 10:45 AM ECHO, Provider: ERICA [facility]VI ULTRASOUND 01,[id number], Status: Pen, Time: 10:45 AM [facility] DO Work Phone: Start: 07-30-2020 Glaucoma screening Diabetes: R etinopathy Screening [facility] Start: 06-17-2018 Pneumococcal Vaccine : 65+ Years (2 - PPSV23 or PCV20) Pneumococcal Vaccine: 65+ Years (2 - PPSV23 or PCV20) [facility] Start: 06-17-2018 Pneumococcal Vaccine : 65+ Years (2 of 2 - PPSV23 or PCV20) Pneumococcal Vaccine: 65+ Years (2 of 2 - PPSV23 or PCV20) [facility] Start: 06-17-2018 Pneumococcal Vaccine : 65+ Years (2 of 2 - PPSV23) Pneumococcal Vaccine: 65+ Years (2 of 2 - PPSV23) [facility] Basic metabolic 1998 panel - Serum or Plasma Basic metabolic panel Lab Routine Bilateral lower extremity edema Ordered: 10/07/2024 [facility] Work Phone: Comment on above: Ordered: 10/07/2024 BLOOD CULTURE 1 BLOOD CULTURE 1 Lab Routine 09/27/2024 12:40 PM EDT [facility] BLOOD CULTURE 2 BLOOD CULTURE 2 Lab Routine 09/27/2024 12:46 PM EDT [facility] CBC W Auto Different ial panel - Blood CBC and differential Lab Routine 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) Ordered: 11/07/2024 [facility] Comment on above: Ordered: 11/07/2024 Echocardiogram 2D complete Echocardiogram 2D complete Echocardiography Routine 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) Ordered: 05/02/2024 [facility] Work Phone: Comment on above: Ordered: 05/02/2024 URINE CULTURE - [facility] URINE CULTU RE - [facility] Lab Routine 08/13/2024 5:00 PM EST [facility] URINE CULTURE - [facility] URINE CULTU RE - [facility] Lab Routine 10/01/2024 8:35 AM EDT [facility] Immunizations Immunization Date Immunization Notes Care Provider Fa [facility] 09-16-2020 Pfizer-BioNTech COVID-19 Vacc 30 MCG/0.3ML Intramuscular Suspension Xochitl Hernandez MD Work Phone: [place] [address] DO Work Phone: 08-25-2020 Pfizer-BioNTech COVID-19 Vacc 30 MCG/0.3ML Intramuscular Suspension Xochitl Hernadnez MD Work Phone: [place] [address] DO Work Phone: 05-07-2018 pneumococcal conjuga te vaccine, 13 valphilipp Hernandez MD Work Phone: [facility] 250 DO Work Phone: 04-22-2018 pneumococcal conjuga te vaccine, 13 valphilipp Hernandez MD Work Phone: [facility] 11-28-2015 zoster vaccinedarren MD Work Phone: [facility] 01-10-2015 zoster vaccinedarren MD Work Phone: [facility] Healthcare Payers Date Payer Category Payer Medicare [employer] MEDICARE ADVANTAGE [employer] MEDICARE [id number] 2022-Present [address] [address] [place] [address] [id number] 2022 Medicare (Managed Care) [id number]. [id number] 2022 Private Health Insurance [id number] 1959 Medicaid [id number] 1959 Medicare [id number] 1942 Unknown [id number] 2.16.840.1.957398.3.579.2. 1068 1942 Unknown [id number] 2.16.840.1.661443.3.579.2. 1068 1942 Unknown [id number] 2.16.840.1.501777.3.579.2. 593 1942 Unknown [id number] 2.16.840.1.125481.3.579.2. 593 1942 Unknown [id number] 2.16.840.1.744275.3.579.2. 593 1942 Unknown [id number] 2.16.840.1.572503.3.579.2. 593 1942 Unknown [id number] 2.16.840.1.612650.3.579.2. 593 1942 Unknown [id number] 2.16.840.1.496807.3.579.2. 593 1942 Unknown [id number] 2.16.840.1.530330.3.579.2. 593 1942 Unknown [id number] 2.16.840.1.791694.3.579.2. 727 1942 Unknown [id number] 2.16.840.1.372454.3.579.2. 727 1942 Unknown [id number] 2.16.840.1.414755.3.579.2. 727 1942 Unknown [id number] 2.16.840.1.148420.3.579.2. 1259 1942 Unknown [id number] 2.16.840.1.602027.3.579.2. 125 1942 Unknown [id number] 2.16.840.1.585770.3.579.2. 125 1942 Unknown [id number] 2.16.840.1.143431.3.579.2. 125 1942 Unknown [id number] 2.16.840.1.777553.3.579.2. 125 1942 Unknown [id number] 2.16.840.1.438798.3.579.2. 125 1942 Unknown [id number] 2.16.840.1.837263.3.579.2. 125 1942 Unknown [id number] 2.16.840.1.587031.3.579.2. 125 1942 Unknown [id number] 2.16.840.1.141954.3.579.2. 125 1942 Unknown [id number] 2.16.840.1.015118.3.579.2. 125 1942 Unknown [id number] 2.16.840.1.026319.3.579.2. 125 1942 Unknown [id number] 2.16.840.1.339883.3.579.2. 1252 Unknown [id number] 2.16.840.1.633742.3.579.2. 1258 1942 Unknown [id number] 2.16.840.1.133176.3.579.2. 9 1942 Unknown [id number] 2.16.840.1.667577.3.579.2. 1258 1942 Unknown [id number] 2.16.840.1.906206.3.579.2. 1258 1942 Unknown [id number] 2.16.840.1.321594.3.579.2. 1258 1942 Unknown [id number] 2.16.840.1.281075.3.579.2. 9 1942 Unknown [id number] 2.16.840.1.283132.3.579.2. 1258 1942 Unknown [id number] 2.16.840.1.111588.3.579.2. 1259 Unknown Social History Date Type Detail Facility Start: 11-12-2022 End: 01-16-2025 No alcohol use No alcohol use [facility] Comment on above: 4-5 servings daily; quit 1995, 2ppd; Start: 11-20-2022 End: 02-18-2024 Tobacco smoking status [facility] Ex-smoker [facility] Work Phone: End: 10-27-2012 History of tobacco use Current smoker [facility] End: 10-27-2012 History of tobacco use Cigarette Smoker [facility] Start: 11-20-2022 End: 02-18-2024 Tobacco use and exposure Smokeless tobacco non-user [facility] Start: 07-20-2023 End: 01-16-2025 Alcohol intake Ex-drinker (finding) [facility] Start: 11-12-2022 End: 01-16-2025 Humiliation, Afraid, Rape, and Kick questionnaire [HARK] [...] e: 2-3 cups per day of coffee [facility] Start: 1940 Sex Assigned At Not on file [facility] How often to you hav e a drink containing alcohol? Never [facility] Start: 08-15-2024 End: 10-02-2024 Sex Female (finding) [facility] Start: 1940 Sex Assigned At Female F [facility] How often do you nee d to have someone help you when you read instructions, pamphlets, or other written material from your doctor or pharmacy [SILS] Sometimes [facility] Work Phone: Medical Equipment Procedure Code Equipment Code Equipment Origin al Text Equipment Identifier Dates [id number] Start: 11-05-2022 USE 1 LANCET TO TEST BLOOD SUGAR ONCE DAILY [id number] Start: 11-05-2022 Functional Status Date Assessment Result Facility 01-16-2025 Patient Health Quest ionnaire 2 item (PHQ-2) [Reported] [facility] 01-09-2025 Patient Health Quest ionnaire 2 item (PHQ-2) [Reported] [facility] 01-09-2025 PHQ-9 quick depressi on assessment panel [Reported.PHQ] [facility] 11-07-2024 Patient Health Quest ionnaire 2 item (PHQ-2) [Reported] [facility] 10-07-2024 Patient Health Quest ionnaire 2 item (PHQ-2) [Reported] [facility] 03-08-2024 Functional Status N/A [facility] 12-21-2023 Functional Status N/A [facility] Clinical Notes 10-15-2020 to 01-16-2025 Yossi Landers MD - 01/16/2025 11:30 AM JACKELYNTYossi Landers MD - 01/09/2025 10:00 AM EDTTelephone Encounter - PHILIP Magallanes - 01/09/2025 8:07 AM PHILIP Paiz - 12/29/2024 2:30 PM EDT Note Date & Type Note Facility 01-16-2025 History of Presen t illness Narrative Images from the original note were not included. HPI Follow-up Additional comments: Admitted [facility] 01/09/25 dx:HTN, CHF exacerbation discharged home 01/11/25 [...] 01/16/2025 11:47 AM. Subjective Patient ID: Jaquelin Norwood is a 84 y.o. female who presents for Follow-up (Admitted [facility] 01/09/25 dx:HTN, CHF exacerbation discharged home 01/11/25 has home health rx for prednisone given, torsemide increased to 15mg every day/Follow up with cardiology 01/18/25), discuss medication (At hospital discharge pt was advised not to take hydrocodone until she talks to pcp//Also was advised to change the dosing of xanax -if anxiety is not reduced with 0.25mg take an additional tablet for total of 0.5mg --take every 8 hours as needed), and recommendations for sodium (Pt family wondering if she can have salt and if so how much-- also wondering if there are days she should hold her blood pressure meds if her blood pressure is low). Flowsheet Row Patient Outreach from 01/12/[address] [facility] with Daniela Alvarado LPN [facility] Information ED, Hospital or Long Term Facility Discharge? Hospital Patient has been contacted within two business days of discharge Yes Diagnosis CHF exacerbation: (2) Pericardial effusion: (3) Essential hypertension: (4) COPD exacerbation: Discharge Date 01/11/25 Discharged To: Home Setting Discharge Hospital [facility] Engagement Call Start Time 1059 Admission Date [...] 90 tablet 3 Blood Glucose Monitoring Suppl ([employer] 2) w/Device kit Inject under the skin [...] BY MOUTH EVERY DAY 100 tablet 3 Dhmophtoufj-Myzehkkrq-Xvsftp (Trelegy Ellipta) 100-62.5-25 MCG/ACT aerosol powder Inhale 1 puff Daily 3 each 3 gabapentin (Neurontin) 100 MG capsule Take 2 capsules (200 mg) by mouth in the morning and 2 capsules (200 mg) before bedtime. 360 capsule 3 glucose blood (True Metrix Blood Glucose Test) test strip 1 each by Other route 1 (one) time each day at the same time. Lancets (TennisHubuch Delica Plus [id number]) [facility] USE 1 LANCET TO TEST BLOOD SUGAR [...] (10 mg) before bedtime. 60 tablet 5 Multiple Vitamins-Minerals (OCUVITE [...] today. Allergies Allergen Reactions Aleve [Naproxen] Swelling gogo oral edema Benztropine Mesylate Hallucinations Benztropine Other [...] of bladder Left thyroid nodule Morbid obesity ([facility]) 07/04/2019 Osteoarthrosis Peripheral vascular disease, unspecified Unspecified [...] Wt 185 lb SpO2 98% BMI 30.79 kg/m Smoking Status Former BSA 1.96 m Review of Systems Objective Physical Exam [...] morning. Do not crush, chew, or split. Acute on [...] weeks (around 01/30/2025). documented in this encounter [facility] 01-09-2025 History of Presen t illness Narrative Images from the original note were not included. Subjective Patient ID: Jaquelin Norwood is a 84 y.o. female who presents for No chief complaint on file.. Jaquelin presents today for a follow for GERD and depression. She does say that she is light headed and she feels very dizzy. This has been going [...] BY MOUTH EVERY DAY 100 tablet 3 Kzgbgtwqwwk-Efzjibkdu-Zsxctr (Trelegy Ellipta) 100-62.5-25 MCG/ACT aerosol powder Inhale 1 puff Daily 3 each 3 gabapentin (Neurontin) 100 MG capsule Take 2 capsules (200 mg) by mouth in the morning and 2 capsules (200 mg) before bedtime. 360 capsule 3 glucose blood (True Metrix Blood Glucose Test) test strip 1 each by Other route 1 (one) time each day at the same time. [] HYDROcodone-acetaminophen (Nashua) 7.5-325 MG tablet Take 1 tablet by mouth every 6 (six) hours if needed for severe pain 120 tablet 0 Lancets (Hologic Delonefinestay Plus [id number]) [facility] USE 1 LANCET TO TEST BLOOD SUGAR [...] DIRECTED FOR FIRST MONTH. 147 each 1 memantine (Namenda) 10 MG tablet Take 1 tablet (10 mg) by mouth in the morning and 1 tablet (10 mg) before bedtime. 60 tablet 5 Multiple Vitamins-Minerals (OCUVITE [...] today. Allergies Allergen Reactions Aleve [Naproxen] Swelling gogo oral edema Benztropine Mesylate Hallucinations Benztropine Other [...] of bladder Left thyroid nodule Morbid obesity ([facility]) 07/04/2019 Osteoarthrosis Peripheral vascular disease, unspecified Unspecified [...] follow-ups on file. documented in this encounter [facility] 01-09-2025 Telephone encount er Note Meds sent. [facility] 01-09-2025 Miscellaneous Notes Formattin g of this note might be different from the original. Meds sent. documented in this encounter [facility] 01-03-2025 Telephone encount er Note OARRS reviewed, Rx sent into patient's pharmacy. [facility] 01-03-2025 Miscellaneous Notes Formattin g of this note might be different from the original. OARRS reviewed, Rx sent into patient's pharmacy. documented in this encounter [facility] 12-29-2024 History of Presen t illness Narrative Reason for Appointment: Patient ID: Jaquelin Norwood is a 84 y.o. female who presents for vaginal pressure (Pt present today to discuss vaginal pressure.) Patient presents today for Vaginal pressure. MEDICATIONS Current Outpatient Medications Medication Instructions albuterol HFA (ProAir HFA) 90 mcg/act inhaler 2 puffs, Every 4 hours PRN albuterol 2.5 mg, Nebulization, Every 8 hours PRN ALPRAZolam (XANAX) 0.25 mg, Oral, 3 times daily PRN aspirin 81 mg, Every 24 hours atorvastatin (LIPITOR) 40 mg, Oral, Every morning Blood Glucose Monitoring Suppl (ONE TOUCH ULTRA 2) w/Device kit Daily calcium carbonate (TUMS) 500 mg, Daily carvedilol (Coreg) 12.5 MG tablet TAKE 1 TABLET (12.5 MG) BY MOUTH IN THE MORNING AND 1 TABLET (12.5 MG) BEFORE BEDTIME. [facility] Stool Softener 100 mg, 2 times daily DULoxetine (CYMBALTA) 60 mg, Oral, Every morning famotidine (PEPCID) 20 mg, Oral, Daily Dynrroyqesw-Hgovdcgyx-Eikisr (Trelegy Ellipta) 100-62.5-25 MCG/ACT aerosol powder 1 puff, Inhalation, Daily gabapentin (NEURONTIN) 200 mg, Oral, 2 times daily glucose blood (True Metrix Blood Glucose Test) test strip 1 each, Every 24 hours HYDROcodone-acetaminophen (Nashua) 7.5-325 MG tablet 1 tablet, Oral, Every 6 hours PRN Lancets (OneTouch Delica Plus [id number]) [facility] USE 1 LANCET TO TEST BLOOD SUGAR ONCE DAILY levothyroxine (SYNTHROID, LEVOXYL) 100 mcg, Oral, Daily before breakfast lisinopril 5 mg, Oral, Every morning loratadine (CLARITIN) 10 mg, Oral, Daily meclizine (ANTIVERT) 12.5 mg, 3 times daily PRN memantine (Namenda Titration Pack) 28 x 5 MG & 21 x 10 MG tablet pack USE DIRECTED FOR FIRST MONTH. memantine (NAMENDA) 10 mg, Oral, 2 times [...] ALLERGIES Allergies Allergen Reactions Aleve [Naproxen] Swelling gogo oral edema Benztropine Mesylate Hallucinations Benztropine Other Vioxx [Rofecoxib] PROBLEMS Active Ambulatory Problems Diagnosis Date Noted Acquired hypothyroidism 11/04/2022 Ataxic gait 11/04/2022 Bilateral carotid artery stenosis 11/04/2022 Cardiomyopathy (HCC) 11/04/2022 Chronic allergic rhinitis 11/04/2022 Chronic combined systolic and diastolic congestive heart failure (HCC) 11/04/2022 Chronic constipation 11/04/2022 Coronary artery disease 11/04/2022 Degenerative lumbar spinal stenosis 11/04/2022 Depression with anxiety 11/04/2022 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HCC) 11/04/2022 Essential hypertension 11/04/2022 Extrapyramidal symptom 11/04/2022 [...] obstructive pulmonary disease (HCC) 11/04/2022 Pulmonary emphysema ([facility]) 11/04/2022 Type 2 diabetes mellitus with diabetic neuropathy, without long-term current use of insulin (HCC) 11/04/2022 Ataxia 10/23/2017 Diabetic peripheral neuropathy associated with type 2 diabetes mellitus ([facility]) 02/23/2019 Acute on chronic diastolic heart failure ([facility]) 03/14/2020 Cardiomegaly 04/30/2015 Abnormality of rectum 08/10/2023 Sore throat 10/26/2023 Symptomatic cholelithiasis 01/20/2024 Nausea 09/29/2024 Bilateral lower extremity edema 10/07/2024 Resolved Ambulatory Problems Diagnosis Date Noted Former smoker 08/15/2017 Morbid obesity ([facility]) 07/04/2019 Chronic combined systolic and diastolic heart failure ([facility]) 04/30/2015 Acute exacerbation of chronic obstructive pulmonary disease ([facility]) 07/16/2016 Past Medical History: Diagnosis Date Anxiety state Chronic airway obstruction (HCC) Chronic back pain Depressive disorder Diabetes mellitus without complication (HCC) Encephalopathy 10/14/2022 Essential hypertension, benign H/O being [...] of bladder Left thyroid nodule Morbid obesity ([facility]) 07/04/2019 Osteoarthrosis Peripheral vascular disease, unspecified Unspecified [...] nursing note reviewed. Exam conducted with a tub rider present. Vitals: Estimated body mass index is 27.64 kg/m as calculated from the following: Height as [...] and would then like to have follow up pessary maintenance locally with provider in office (Yen Auguste PA-C). Patient and family aware that referral will be sent and VU about process, they will reach out to office with any further questions/concerns and will setup 3 month Pessary cleaning after device is placed by Specialist. Documented by Davida Miranda MA/Janey Barry LPN on behalf of: PHILIP Solomon documented in this encounter [facility] 11-07-2024 History of Presen t illness Narrative Images from the original note were not included. Subjective : Chief Complaint: Jaquelin Norwood is an 84 y.o. female here for an annual wellness visit. I have reviewed and reconciled the history and medication list with the patient today. Current Outpatient Medications Medication Sig Dispense Refill [...] capsule 3 famotidine (Pepcid) 20 MG tablet Take 1 tablet (20 mg) by mouth Daily 30 tablet 2 Zzqipeauopr-Stxdpzhau-Foqqhw (Trelegy Ellipta) 100-62.5-25 MCG/ACT aerosol powder Inhale 1 puff Daily 3 each 3 gabapentin (Neurontin) 100 MG capsule Take 2 capsules (200 mg) by mouth in the morning and 2 capsules (200 mg) before bedtime. 360 capsule 3 glucose blood (True Metrix Blood Glucose Test) test strip 1 each by Other route 1 (one) time each day at the same time. HYDROcodone-acetaminophen (Nashua) 7.5-325 MG tablet Take 1 tablet by mouth every 6 (six) hours if needed for severe pain 120 tablet 0 Lancets (PartTecTouch Delica Plus [id number]) [facility] [place] USE 1 LANCET TO TEST BLOOD SUGAR ONCE DAILY levothyroxine (Synthroid, Levoxyl) 100 MCG tablet TAKE 1 TABLET (100 MCG) BY MOUTH IN THE MORNING. TAKE BEFORE MEALS. 90 tablet 3 lisinopril 5 MG tablet [...] hours. omeprazole (PriLOSEC) [address] capsule Take 1 capsule (40 mg) by mouth in the morning. Do not crush or chew.. polyethylene glycol, PEG, 3350 (Glycolax, Miralax) powder Take 17 g by mouth Daily as needed (constipation) torsemide (Demadex) 10 MG tablet Take 1 tablet (10 mg) by mouth Daily 90 tablet 3 memantine (Namenda Titration Pack) 28 x 5 MG & 21 x 10 MG tablet pack Use as directed for first month. 49 tablet 0 memantine (Namenda) 10 MG tablet Take 1 tablet (10 mg) by mouth in the morning and 1 tablet (10 mg) before bedtime. 60 tablet 5 ondansetron ODT (Zofran-ODT) 4 MG disintegrating tablet Take 1 tablet (4 mg) by mouth every 8 (eight) hours if needed for nausea or vomiting for up to 28 days 21 tablet 3 No current facility-administered medications for this visit. Review of Systems List of current healthcare providers: Patient Care Team: Yossi Landers MD as PCP - General (Internal Medicine) Yossi Landers MD as PCP - Veronika Alvarado LPN Medicare Annual Visit Over the past 2 weeks, how often have you been bothered by any of the following problems? Little interest or pleasure in doing things: Not at all Feeling down, depressed, or hopeless: Not at all Patient Health Questionnaire-2 Score: 0 Thakur Fall Risk History of Falling, Immediate or Within 3 Months: No Secondary Diagnosis: No Ambulatory Aid: Crutches/cane/walker Health Risk Assessment Form Do you need help eating, bathing, using the toilet, dressing, or getting around your home?: No Can you prepare your own meals?: No Can you do your own housework without help?: No Can you shop for groceries or clothes without help?: Yes Do you exercise for about 20 minutes 3 or more days a week?: No How confident are you that you can control and manage most of your health problems?: Somewhat confident Can you mange your money, credit cards and accounts, pay bills and taxes?: No Cognitive Screening Three Word Registration: Apple, Watch, Frances Clock Drawing: Inability or Refusal to Draw Clock - 0 Three Word Recall: 1/3 words correct - 1 Total Score (0-5 Points): 3 Pain Assessment Pain Score: 2 Advance Care Planning Do you have a living will?: No Do you have a medical power of prosecuting attorney?: No Objective : BP 128/72 Pulse 67 Ht 5' 5 Wt 182 lb SpO2 97% BMI 30.29 kg/m No results found. Physical Exam Constitutional: General: She is not in acute distress. Appearance: She is obese. HENT: Head: Normocephalic and atraumatic. Right Ear: Decreased hearing noted. Left Ear: Decreased hearing noted. Cardiovascular: Rate and Rhythm: Normal rate and regular rhythm. Heart sounds: Murmur heard. Systolic murmur is present with a grade of 2/6. Pulmonary: Effort: Accessory muscle usage present. Breath sounds: No stridor. Examination of the right-lower field reveals rhonchi. Decreased breath sounds and rhonchi (Soft) present. No wheezing. Comments: Pt seeming to require more effort to take a deep breath. Is able to speak in complete, though short sentences. Musculoskeletal: Right lower leg: Edema present. Left lower leg: Edema present. Comments: Non-pitting Skin: General: Skin is warm and dry. Neurological: General: No focal deficit present. Mental Status: She is alert and oriented to person, place, and time. Motor: Weakness (Bilateral lower extremities) present. Gait: Gait abnormal. Deep Tendon Reflexes: Reflexes normal. Comments: Using a wheelchair Psychiatric: Mood and Affect: Mood normal. Thought Content: Thought content normal. Assessment/Plan : The following health maintenance schedule was reviewed with the patient and provided in printed form in the after visit summary: Health Maintenance Topic Date Due Pneumococcal Vaccine: 65+ Years (2 of 2 - PPSV23) 06/17/2018 Diabetes: Retinopathy Screening 07/30/2020 Diabetes: Hemoglobin A1C 12/08/2024 Diabetes: Urine Protein Screening 01/27/2025 Influenza Vaccine (Season Ended) 2025 Advance Care Planning Patient agreed to discuss advance care planning at today's wellness visit. We discussed that an advance directive is a legal document that only goes into effect if the patient is incapacitated and unable to speak for himself or herself. This would help healthcare providers to ensure that the patient gets the care that he or she wishes to receive. The goal is to provide a patient with the best possible quality of life. Encouraged patient to obtain a living will and durable power of prosecuting attorney for healthcare. We discussed telling perdue people about their advance directives such as close family members, and requested a copy to scan into the patient's EHR. An advance directive packet was offered to the patient. Assessment/Plan Diagnoses and all orders for this visit: Routine general medical examination at health care facility ACP (advance care planning) Nausea - ondansetron ODT (Zofran-ODT) 4 MG disintegrating tablet; Take 1 tablet (4 mg) by mouth every 8 (eight) hours if needed for nausea or vomiting for up to 28 days Panlobular emphysema (CMS/HCC) 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) - Comprehensive metabolic panel; Future - Lipid panel; Future - TSH; Future - T4, free; Future - CBC and differential Cognitive impairment - memantine (Namenda Titration Pack) 28 x 5 MG & 21 x 10 MG tablet pack; Use as directed for first month. - memantine (Namenda) 10 MG tablet; Take 1 tablet (10 mg) by mouth in the morning and 1 tablet (10 mg) before bedtime. Follow up in about 2 months (around 01/07/2025) for Routine F/U, Perform Labwork. Orders Placed This Encounter Procedures Comprehensive metabolic panel Standing Status: Future Number of Occurrences: 1 Expected Date: 11/07/2024 Expiration Date: 11/07/2025 Print requisition?: No Lipid panel Standing Status: Future Number of Occurrences: 1 Expected Date: 11/07/2024 Expiration Date: 11/07/2025 TSH Standing Status: Future Number of Occurrences: 1 Expected Date: 11/07/2024 Expiration Date: 11/07/2025 Print requisition?: No T4, free Standing Status: Future Number of Occurrences: 1 Expected Date: 11/07/2024 Expiration Date: 11/07/2025 Print requisition?: No CBC and differential Print requisition?: No Electronically signed by Yossi Landers MD on November 07, 2024 documented in this encounter [facility] 10-27-2024 Telephone encount er Note Radha sent. [facility] 10-27-2024 Miscellaneous Notes Formattin g of this note might be different from the original. Radha sent. documented in this encounter [facility] 10-13-2024 Telephone encount er Note Acknowledged. [facility] 10-13-2024 Miscellaneous Notes Formattin g of this note might be different from the original. Acknowledged. Relayed message from can to pt son and she will talk to pt to see what she would like to do and will give a call back Please let her know that both medications have the potential for the same side effects. Torsemide is likely to be more effective at managing her swelling. Pt calls stating she does not feel comfortable taking torsemide was on furosemide in past and would rather take that instead documented in this encounter [facility] 10-13-2024 Telephone encount er Note Relayed message from can to pt son and she will talk to pt to see what she would like to do and will give a call back [facility] 10-13-2024 Telephone encount er Note Please let her know that both medications have the potential for the same side effects. Torsemide is likely to be more effective at managing her swelling. [facility] 10-13-2024 Telephone encount er Note Pt calls stating she does not feel comfortable taking torsemide was on furosemide in past and would rather take that instead T [facility] 10-07-2024 History of Presen t illness Narrative Images from the original note were not included. HPI Pneumonia Additional comments: 1 week follow up Last edited by Seble Lieberman MA on 10/07/2024 7:26 AM. Subjective Patient ID: Jaquelin Norwood is a 84 y.o. female who presents for Pneumonia (1 week follow up ). Pt is here for 1 week follow up due to having pneumonia, pt is not doing better. Pt is short of breath, coughing bringing phlegm up, having hard time breathing Pt did end up back in hospital again last Thursday and she just got out Thursday, she went to [facility] on 10/01 was having N/V. The N/V has improved. Feels like she is a little stronger, able to walk to the bathroom and back. Current Outpatient Medications on File Prior to Visit Medication Sig Dispense Refill albuterol HFA (ProAir HFA) 90 mcg/act inhaler Inhale 2 puffs every 4 (four) hours if needed. albuterol (2.5 MG/3ML) 0.083% nebulizer solution Take 3 mL (2.5 mg) by nebulization every 8 (eight) hours if needed for wheezing or shortness of breath 150 mL 5 ALPRAZolam (Xanax) 0.25 MG tablet Take 1 tablet (0.25 mg) by mouth 3 (three) times a day as needed for anxiety 90 tablet 1 aspirin 81 MG EC tablet Take 81 mg by mouth 1 (one) time each day at the same time. atorvastatin (Lipitor) 40 MG tablet TAKE 1 TABLET EVERY MORNING 90 tablet 3 [] azithromycin (Zithromax) 250 MG tablet Take 250 mg by mouth Daily Take 500mg day 1 and then 250mg for 4 days Blood Glucose Monitoring Suppl (ONE TOUCH ULTRA [...] 1 CAPSULE EVERY MORNING 90 capsule 3 Taovbripwyh-Pbrmjabjy-Cdqaaz (Trelegy Ellipta) 100-62.5-25 MCG/ACT aerosol powder Inhale [...] time. (Patient not taking: Reported on 09/21/2024) [] HYDROcodone-acetaminophen (Nashua) 7.5-325 MG tablet Take 1 tablet by mouth every 6 (six) hours if needed for severe pain 120 tablet 0 Lancets (OneTouch Delica Plus [id number]) [facility] [place] USE 1 LANCET TO TEST BLOOD SUGAR ONCE DAILY levothyroxine (Synthroid, Levoxyl) 100 MCG tablet TAKE 1 TABLET (100 MCG) BY MOUTH IN THE MORNING. TAKE BEFORE MEALS. 90 tablet 3 lisinopril 5 MG tablet [...] hours. omeprazole (PriLOSEC) [address] capsule Take 1 capsule (40 mg) by mouth in the morning. Do not crush or chew.. ondansetron ODT (Zofran-ODT) 4 MG disintegrating tablet Take 1 tablet (4 mg) by mouth every 8 (eight) hours if needed for nausea or vomiting for up to 7 days 21 tablet 0 polyethylene glycol, PEG, 3350 (Glycolax, Miralax) powder Take 17 g by mouth Daily as needed (constipation) [DISCONTINUED] famotidine (Pepcid) 20 MG tablet TAKE 1 TABLET BY MOUTH AT BEDTIME (Patient not taking: Reported on 10/07/2024) 90 tablet 0 [DISCONTINUED] linaCLOtide (Linzess) 290 MCG capsule Take by mouth (Patient not taking: Reported on 10/07/2024) [DISCONTINUED] ondansetron (Zofran) 4 MG tablet Take 2 tablets (8 mg) by mouth every 8 (eight) hours if needed for nausea or vomiting 60 tablet 1 [DISCONTINUED] torsemide (Demadex) 20 MG tablet Take 1 tablet (20 mg) by mouth Daily (Patient not taking: Reported on 10/07/2024) 30 tablet 11 No current facility-administered medications on file prior [...] Past Medical History: Diagnosis Date Acquired hypothyroidism ([facility]) Acute exacerbation of chronic obstructive pulmonary disease (CMS/HCC) 07/16/2016 Anxiety state ([facility]) Cardiomegaly Chronic airway obstruction ([facility]) Chronic back pain spinal stenosis Depressive disorder ([facility]) Diabetes mellitus without complication Diabetes mellitus without mention of complication, type II or unspecified type, not stated as uncontrolled Encephalopathy 10/14/2022 Essential hypertension, benign ([facility]) Former smoker 08/15/2017 H/O being hospitalized 02/20/2020 Resp. Distress, Hypoxia, JONE, LLL Pneumonia, Sepsis History of echocardiogram 02/21/2020 ECHO EF 65-70% Lt [facility] Severely Dilated (02/21/2020) Hyperlipidemia, unspecified ([facility]) Hypertonicity of bladder Left thyroid nodule ([facility]) Morbid obesity ([facility]) 07/04/2019 Osteoarthrosis Peripheral vascular disease, unspecified ([facility]) Unspecified combined systolic (congestive) and diastolic (congestive) [...] THYROID SURGERY partial thyroidectomy Visit Vitals BP 134/76 Pulse 80 Ht 5' 5 Wt 187 lb SpO2 97% BMI 31.12 kg/m Smoking Status Former BSA 1.97 m Review of Systems Constitutional: Negative for chills, fatigue and fever. Respiratory: Positive for cough and shortness of breath. Negative for wheezing. Cardiovascular: Negative for chest pain, palpitations and leg swelling. Gastrointestinal: Negative for abdominal pain, constipation, diarrhea, nausea and vomiting. Skin: Negative for rash. Objective Physical Exam Constitutional: General: She is not in acute distress. Appearance: She is obese. HENT: Head: Normocephalic and atraumatic. Right Ear: Decreased hearing noted. Left Ear: Decreased hearing noted. Cardiovascular: Rate and Rhythm: Normal rate and regular rhythm. Heart sounds: Murmur heard. Systolic murmur is present with a grade of 2/6. Pulmonary: Effort: Accessory muscle usage present. Breath sounds: No stridor. Examination of the right-lower field reveals rhonchi. Decreased breath sounds and rhonchi (Soft) present. No wheezing. Comments: Pt seeming to require more effort to take a deep breath. Is able to speak in complete, though short sentences. Musculoskeletal: Right lower leg: Edema present. Left lower leg: Edema present. Comments: Non-pitting Skin: General: Skin is warm and dry. Neurological: General: No focal deficit present. Mental Status: She is alert and oriented to person, place, and time. Motor: Weakness (Bilateral lower extremities) present. Gait: Gait abnormal. Deep Tendon Reflexes: Reflexes normal. Comments: Using a wheelchair Psychiatric: Mood and Affect: Mood normal. Thought Content: Thought content normal. Assessment/Plan Diagnoses and all orders for this visit: Community acquired pneumonia, unspecified laterality - azithromycin (Zithromax) 250 MG tablet; Take 2 tablets (500 mg) by mouth Daily for 1 day, THEN 1 tablet (250 mg) Daily for 4 days. Will have her restart the Zithromax as her recent hospitalization interrupted therapy. Lung sounds are beginning to improve. Continue albuterol HFA and nebulizer as prescribed. Using Trelegy daily. Nausea Has improved for pt. Stable with use of Zofran as needed. ER report from 10/01 was not available at time of office visit, will review once received. Bilateral lower extremity edema - Basic metabolic panel Continue to elevate bilateral legs whenever sitting. Encouraged that they look into assistive devices to help patient put on her compression stockings as they would likely be helpful for the patient. If the BMP is WNL, would plan to have patient restart the Torsemide at a lower dosage, 10 mg. Generalized weakness - Ambulatory referral to Home Health; Future Jaquelin was seen in part today for a face to face encounter, and she meets the necessary requirements for Home Health. The primary reason for home health care is for Physical Therapy to evaluate and treat generalized weakness. Chronic combined systolic and diastolic congestive heart failure ([facility]) - Ambulatory referral to Home Health; Future I certify that, based on my findings, the following services are medically necessary skilled home health services: Strengthening Exercises. Further, I certify that my clinical findings support this patient's homebound status (i.e. absences from home require considerable and taxing effort, are for health treatment, absences from home for non-medical reasons are infrequent or are of relatively short duration). The clinical findings that support the need for home care and homebound status are due to need the aid of supportive devices and needs the assistance of another person to leave place of residence and the patient has a condition such that leaving her home is medically contraindicated. Follow up in about 4 weeks (around 11/04/2024) for Recheck. documented in this encounter [facility] 09-29-2024 History of Presen t illness Narrative Images from the original note were not included. HPI Med Refill Additional comments: Albuterol for nebulizer Last edited by Chelita Hurst LPN on 09/29/2024 10:57 AM. Subjective Patient ID: Jaquelin Norwood is a 84 y.o. female who presents for [facility] follow up. Flowsheet Row Patient Outreach from 09/28/[address] [facility] with Daniela Alvarado LPN Hospital Information ED, Hospital or Long Term Facility Discharge? ED Patient has been contacted within 2 days of being seen in the ED Yes Diagnosis Shortness of breath, Pneumonia Discharge Date 09/27/24 Discharged To: Home Setting Discharge Hospital [facility] Engagement Call Start Time 1101 Admission Date [...] 4 days Blood Glucose Monitoring Suppl (ONE TOUCH ULTRA [...] taking: Reported on 09/21/2024) 90 tablet 0 Rrhfvjxxsxg-Onsryqdtx-Ceobiq (Trelegy Ellipta) 100-62.5-25 MCG/ACT aerosol powder Inhale [...] (Patient not taking: Reported on 09/21/2024) HYDROcodone-acetaminophen ([place]) 7.5-325 MG tablet Take 1 tablet by mouth every 6 (six) hours if needed for severe pain 120 tablet 0 Lancets (PartTecTouch Delica Plus [id number]) [facility] [place] USE 1 LANCET TO TEST BLOOD SUGAR [...] every 8 (eight) hours if needed. [DISCONTINUED] Rqtgnlm-Lmgpcituysi-Yabvecjukr (Breztri Aerosphere) 160-9-4.8 MCG/ACT aerosol Inhale 2 [...] Depressive disorder (CMS/HCC) Diabetes mellitus without complication Diabetes mellitus without [...] Recheck with Lab. documented in this encounter [facility] 09-14-2024 History of Presen t illness Narrative [...] the skin 1 (one) time each day. Cgkcssy-Hhvhilfyxsc-Vnuvvzcrgo (Breztri Aerosphere) 160-9-4.8 MCG/ACT aerosol Inhale 2 [...] BY MOUTH AT BEDTIME 90 tablet 0 Uiodxnukirr-Yrcajjwxh-Wdawxy (Trelegy Ellipta) 100-62.5-25 MCG/ACT aerosol powder Inhale 1 puff Daily 3 each 3 gabapentin (Neurontin) 100 MG capsule Take 2 capsules (200 mg) by mouth in the morning and 2 capsules (200 mg) before bedtime. 360 capsule 3 glucose blood (True Metrix Blood Glucose Test) test strip 1 each by Other route 1 (one) time each day at the same time. HYDROcodone-acetaminophen ([place]ashua) 7.5-325 MG tablet Take 1 tablet by mouth every 6 (six) hours if needed for severe pain 120 tablet 0 Lancets (Hologic Delica Plus [id number]) [facility] [place] USE 1 LANCET TO TEST BLOOD SUGAR [...] As Previously Scheduled. documented in this encounter [facility] 08-23-2024 Telephone encount er Note Hi, I am calling for Alma. Norwood. Birthdate [birth year]. She wanted to know if she could get some samples of the trilogy. Thank you, Tito. [facility] 08-23-2024 Miscellaneous Notes Formattin g of this note might be different from the original. Eyal, I am calling for Alma. Norwood. Birthdate [birth year]. She wanted to know if she could get some samples of the trilogy. Thank you, Tito. documented in this encounter [facility] 08-08-2024 Telephone encount er Note OARRS reviewed, Rx sent into patient's pharmacy. [facility] 08-08-2024 Miscellaneous Notes Formattin g of this note might be different from the original. OARRS reviewed, Rx sent into patient's pharmacy. documented in this encounter [facility] 08-08-2024 Telephone encount er Note Zofran Sent [facility] 08-08-2024 Miscellaneous Notes Formattin g of this note might be different from the original. Zofran Sent documented in this encounter [facility] 07-29-2024 History of Presen t illness Narrative Images from the original note were not included. Jaquelin Norwood presents today for COPD. She was referred by primary care provider. She is accompanied by her murqjjvo-lv-czd at today's office visit. She does give [...] been off for last 2 days. Her vroejalx-gn-tpg her states that she believes they were [...] the skin 1 (one) time each day. Llckvta-Wiwxhjbabia-Hdvzlirjap (Breztri Aerosphere) 160-9-4.8 MCG/ACT aerosol Inhale 2 [...] each day at the same time. HYDROcodone-acetaminophen ([place]ashua) 7.5-325 MG tablet Take 1 tablet by mouth every 6 (six) hours if needed for severe pain 120 tablet 0 Lancets (TennisHubuch Delica Plus [id number]) [facility] [place] USE 1 LANCET TO TEST BLOOD SUGAR [...] for nausea or vomiting 60 tablet 1 Xegjywnyepw-Fnypbhfji-Hsjyls (Trelegy Ellipta) 100-62.5-25 MCG/ACT aerosol powder Inhale 1 puff Daily 1 each 5 No current facility-administered medications for this visit. Past Medical History: Diagnosis Date Acquired hypothyroidism ([facility]) Acute exacerbation of chronic obstructive pulmonary disease ([facility]) 07/16/2016 Anxiety state ([facility]) Cardiomegaly Chronic airway obstruction ([facility]) Chronic back pain spinal stenosis Depressive disorder ([facility]) Diabetes mellitus without complication ([facility]) Diabetes mellitus without mention of complication, type II or unspecified type, not stated as uncontrolled Encephalopathy 10/14/2022 Essential hypertension, benign ([facility]) Former smoker 08/15/2017 H/O being hospitalized 02/20/2020 Resp. Distress, Hypoxia, JONE, LLL Pneumonia, Sepsis History of echocardiogram 02/21/2020 ECHO EF 65-70% Lt [facility] Severely Dilated (02/21/2020) Hyperlipidemia, unspecified ([facility]) Hypertonicity of bladder Left thyroid nodule ([facility] Morbid obesity ([facility]) 07/04/2019 Osteoarthrosis Peripheral vascular disease, unspecified ([facility]) Unspecified combined systolic (congestive) and diastolic (congestive) heart failure ([facility]) Past Surgical History: Procedure Laterality Date BACK [...] atrial pressures consistent with volume overload. Her dnnlokjy-gk-qtf states there were no adjustments made to [...] Kristen William DO documented in this encounter [facility] 07-25-2024 History of Presen t illness [...] the skin 1 (one) time each day. Pfypyfw-Juljzatxmct-Ihlxpsjsfy (Breztri Aerosphere) 160-9-4.8 MCG/ACT aerosol Inhale 2 [...] each day at the same time. HYDROcodone-acetaminophen ([place]) 7.5-325 MG tablet Take 1 tablet by mouth every 6 (six) hours if needed for severe pain 120 tablet 0 Lancets (Hologic Delonefinestay Plus [id number]) [facility] [place] USE 1 LANCET TO TEST BLOOD SUGAR [...] Past Medical History: Diagnosis Date Acquired hypothyroidism ([facility]) Acute exacerbation of chronic obstructive pulmonary disease ([facility]) 07/16/2016 Anxiety state ([facility]) Cardiomegaly Chronic airway obstruction ([facility]) Chronic back pain spinal stenosis Depressive disorder ([facility]) Diabetes mellitus without complication ([facility]) Diabetes mellitus without mention of complication, type II or unspecified type, not stated as uncontrolled Encephalopathy 10/14/2022 Essential hypertension, benign ([facility]) Former smoker 08/15/2017 H/O being hospitalized 02/20/2020 Resp. Distress, Hypoxia, JONE, LLL Pneumonia, Sepsis History of echocardiogram 02/21/2020 ECHO EF 65-70% Lt [facility] Severely Dilated (02/21/2020) Hyperlipidemia, unspecified ([facility]) Hypertonicity of bladder Left thyroid nodule ([facility]) Morbid obesity ([facility]) 07/04/2019 Osteoarthrosis Peripheral vascular disease, unspecified ([facility]) Unspecified combined systolic (congestive) and diastolic (congestive) heart failure ([facility]) Past Surgical History: Procedure Laterality Date BACK [...] for Routine F/U. documented in this encounter [facility] 07-21-2024 History of Presen t illness [...] as uncontrolled Encephalopathy 10/14/2022 Essential hypertension, benign ([facility]) Former smoker 08/15/2017 H/O being hospitalized 02/20/2020 Resp. Distress, Hypoxia, JONE, LLL Pneumonia, Sepsis History of echocardiogram 02/21/2020 ECHO EF 65-70% Lt [facility] Severely Dilated (02/21/2020) Hyperlipidemia, unspecified ([facility]) Hypertonicity of bladder Left thyroid nodule ([facility]) Morbid obesity ([facility]) 07/04/2019 Osteoarthrosis Peripheral vascular disease, unspecified ([facility]) Unspecified combined systolic (congestive) and diastolic (congestive) heart failure ([facility]) Medications: Current Outpatient Medications: albuterol (2.5 MG/3ML) [...] (one) time each day., Disp: , Rfl: Lgqptdv-Tmdocsmefvn-Jokbtekcan (Breztri Aerosphere) 160-9-4.8 MCG/ACT aerosol, Inhale 2 [...] the same time., Disp: , Rfl: HYDROcodone-acetaminophen ([place]) 7.5-325 MG tablet, Take 1 tablet by mouth every 6 (six) hours if needed for severe pain, Disp: 120 tablet, Rfl: 0 Lancets (PartTecTouch Delica Plus [id number]) [facility] [place], USE 1 LANCET TO TEST BLOOD SUGAR [...] min Stress: No Stress Concern Present (11/12/2022) [employer] [place] [employer] - Occupational Stress Questionnaire Feeling of Stress : Not at all Social Connections: Moderately Isolated (11/12/2022) Social Connection and Isolation Panel [NHANES] Frequency of Communication with Friends and Family: More than three times a week Frequency of Social Gatherings with Friends and Family: Once a week Attends Confucianist Services: Never Active Member of Clubs or [...] and negative PT pedal pulses NEURO: 5.07 [employer] [place] Arturo monofilament test intact to digits and forefoot bilaterally 125Hz tuning fork diminished to 1st MPJ bilaterally ORTHO: Positive pain on palpation to toenails of the left 1,2,3,4,5 toes and right 1,2,3,4,5 toes ASSESSMENT 1. Type 2 diabetes mellitus with diabetic neuropathy, without long-term current use of insulin ([facility]) 2. Pain due to onychomycosis of toenails [...] Alessandro Levi DPM documented in this encounter [facility] 07-12-2024 History of Presen t illness Narrative Subjective Patient ID: Jaquelin Norwood is a 84 y.o. female who presents for Thyroid Nodule (1 year follow up ultrasound [facility]) Thyroid US shows a 14mm LT nodule. Stable to smaller compared to 6 years ago Family History Problem Relation Name Age of Onset Heart failure Mother Diabetes Mother Cancer Mother Cancer Father Active Ambulatory Problems Diagnosis Date Noted Acquired hypothyroidism ([facility]) 11/04/2022 Ataxic gait 11/04/2022 Bilateral carotid artery stenosis 11/04/2022 Cardiomyopathy ([facility]) 11/04/2022 Chronic allergic rhinitis 11/04/2022 Chronic combined systolic and diastolic congestive heart failure ([facility]) 11/04/2022 Chronic constipation 11/04/2022 Coronary artery disease ([facility]) 11/04/2022 Degenerative lumbar spinal stenosis 11/04/2022 Depression with anxiety 11/04/2022 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/2022 Essential hypertension ([facility]) 11/04/2022 Extrapyramidal symptom 11/04/2022 Exudative age-related macular degeneration ([facility]) 11/04/2022 Gastroesophageal reflux disease 11/04/2022 Hypertensive heart disease with congestive heart failure and chronic kidney disease ([facility]) 11/04/2022 LVH (left ventricular hypertrophy) 11/04/2022 Mild cognitive impairment 11/04/2022 Mixed hyperlipidemia ([facility]) 11/04/2022 Moderate recurrent major depression ([facility]) 11/04/2022 Multinodular goiter ([facility]) 11/04/2022 Neuropathy 11/04/2022 Nontoxic single thyroid nodule ([facility]) 11/04/2022 OAB (overactive bladder) 11/04/2022 Obesity (BMI 30-39.9) 11/04/2022 Peripheral vascular disease ([facility]) 11/04/2022 Polyosteoarthritis 11/04/2022 Primary osteoarthritis of left knee 11/04/2022 Primary osteoarthritis of right knee 11/04/2022 Chronic obstructive pulmonary disease ([facility]) 11/04/2022 Pulmonary emphysema ([facility]) 11/04/2022 Type 2 diabetes mellitus with diabetic neuropathy, without long-term current use of insulin ([facility]) 11/04/2022 Ataxia 10/23/2017 Diabetic peripheral neuropathy associated with type 2 diabetes mellitus ([facility]) 02/23/2019 Acute on chronic diastolic heart failure ([facility]) 03/14/2020 Cardiomegaly 04/30/2015 Abnormality of rectum 08/10/2023 Sore throat 10/26/2023 Symptomatic cholelithiasis 01/20/2024 Resolved Ambulatory Problems Diagnosis Date Noted Former smoker 08/15/2017 Morbid obesity ([facility]) 07/04/2019 Chronic combined systolic and diastolic heart failure ([facility]) 04/30/2015 Acute exacerbation of chronic obstructive pulmonary disease ([facility]) 07/16/2016 Past Medical History: Diagnosis Date Anxiety state ([facility]) Chronic airway obstruction ([facility] Chronic back pain Depressive disorder ([facility]) Diabetes mellitus without complication ([facility]) Encephalopathy 10/14/2022 Essential hypertension, benign ([facility]) H/O being hospitalized 02/20/2020 History of echocardiogram 02/21/2020 Hyperlipidemia, unspecified ([facility]) Hypertonicity of bladder Left thyroid nodule ([facility]) Osteoarthrosis Peripheral vascular disease, unspecified ([facility]) Unspecified combined systolic (congestive) and diastolic (congestive) heart failure ([facility]) Past Surgical History: Procedure Laterality Date BACK [...] the skin 1 (one) time each day. Nsqkhuq-Qpsrudoqbgh-Eroxzmeloa (Breztri Aerosphere) 160-9-4.8 MCG/ACT aerosol Inhale 2 [...] each day at the same time. HYDROcodone-acetaminophen ([place]) 7.5-325 MG tablet Take 1 tablet by mouth every 6 (six) hours if needed for severe pain 120 tablet 0 Lancets (PartTecTouch Delica Plus [id number]) [facility] [place] USE 1 LANCET TO TEST BLOOD SUGAR [...] years. Recheck prn documented in this encounter [facility] 07-04-2024 Telephone encount er Note ,OARRS reviewed, Rx sent into patient's pharmacy. [facility] 07-04-2024 Miscellaneous Notes Formattin g of this note might be different from the original. ,OARRS reviewed, Rx sent into patient's pharmacy. Last OV 05-31-24 Last RF 06-01-24 documented in this encounter [facility] 07-04-2024 Telephone encount er Note Last OV 05-31-24 Last RF 06-01-24 [facility] 06-10-2024 History of Presen t illness [...] the skin 1 (one) time each day. Vxpnhcf-Riqjzvqfdtu-Lqrungyihf (Breztri Aerosphere) 160-9-4.8 MCG/ACT aerosol Inhale 2 [...] each day at the same time. HYDROcodone-acetaminophen ([place]) 7.5-325 MG tablet Take 1 tablet by mouth every 6 (six) hours if needed for severe pain 120 tablet 0 Lancets (PartTecToEllevation Delica Plus [id number]) [facility] [place] USE 1 LANCET TO TEST BLOOD SUGAR [...] Past Medical History: Diagnosis Date Acquired hypothyroidism ([facility]) Acute exacerbation of chronic obstructive pulmonary disease ([facility]) 07/16/2016 Anxiety state ([facility]) Cardiomegaly Chronic airway obstruction ([facility]) Chronic back pain spinal stenosis Depressive disorder ([facility]) Diabetes mellitus without complication ([facility]) Diabetes mellitus without mention of complication, type II or unspecified type, not stated as uncontrolled Encephalopathy 10/14/2022 Essential hypertension, benign ([facility]) Former smoker 08/15/2017 H/O being hospitalized 02/20/2020 Resp. Distress, Hypoxia, JONE, LLL Pneumonia, Sepsis History of echocardiogram 02/21/2020 ECHO EF 65-70% Lt [facility] Severely Dilated (02/21/2020) Hyperlipidemia, unspecified ([facility]) Hypertonicity of bladder Left thyroid nodule ([facility]) Morbid obesity ([facility]) 07/04/2019 Osteoarthrosis Peripheral vascular disease, unspecified ([facility]) Unspecified combined systolic (congestive) and diastolic (congestive) heart failure ([facility]) Past Surgical History: Procedure Laterality Date BACK [...] F/U med changes. documented in this encounter [facility] 06-01-2024 Telephone encount er Note Meds sent. [facility] 06-01-2024 Miscellaneous Notes Formattin g of this note might be different from the original. Meds sent. OARRS reviewed, Unable to send meds, will try again later. documented in this encounter [facility] 06-01-2024 Telephone encount er Note OARRS reviewed, Unable to send meds, will try again later. [facility] 05-16-2024 History of Presen t illness Narrative Images from the original note were not included. HPI Results Additional comments: PFT Echo has not been done yet--pending ins approval Med Refill Additional comments: [facility] Last edited by Kimberly Sanchez LPN on 05/16/2024 1:19 PM. Subjective Patient ID: Jaquelin Norwood is a 84 y.o. female who presents for Results (PFT/Echo has not been done yet--pending ins approval), Emphysema, and Med Refill ([facility]). Diabetes Mellitus Patient presents for follow up [...] the skin 1 (one) time each day. Rudulry-Mhfcrfkpths-Usmnsfixib (Breztri Aerosphere) 160-9-4.8 MCG/ACT aerosol Inhale 2 [...] each day at the same time. HYDROcodone-acetaminophen ([place]) 7.5-325 MG tablet Take 1 tablet by mouth every 6 (six) hours if needed for severe pain 120 tablet 0 Lancets (PartTecTouch Delica Plus [id number]) [facility] [place] USE 1 LANCET TO TEST BLOOD SUGAR [...] Past Medical History: Diagnosis Date Acquired hypothyroidism ([facility]) Acute exacerbation of chronic obstructive pulmonary disease ([facility]) 07/16/2016 Anxiety state ([facility] Cardiomegaly Chronic airway obstruction ([facility] Chronic back pain spinal stenosis Depressive disorder ([facility]) Diabetes mellitus without complication ([facility]) Diabetes mellitus without mention of complication, type II or unspecified type, not stated as uncontrolled Encephalopathy 10/14/2022 Essential hypertension, benign ([facility]) Former smoker 08/15/2017 H/O being hospitalized 02/20/2020 [...] for Test/Lab Review. documented in this encounter [facility] 05-02-2024 History of Presen t illness [...] each day at the same time. Lancets (OneTouch Delica Plus [id number]) [facility] USE 1 LANCET TO TEST BLOOD SUGAR [...] for anxiety 60 tablet 0 [DISCONTINUED] HYDROcodone-acetaminophen ([place]) 7.5-325 MG tablet Take 1 tablet by [...] Past Medical History: Diagnosis Date Acquired hypothyroidism ([facility]) Acute exacerbation of chronic obstructive pulmonary disease ([facility]) 07/16/2016 Anxiety state ([facility]) Cardiomegaly Chronic airway obstruction ([facility] Chronic back pain spinal stenosis Depressive disorder ([facility]) Diabetes mellitus without complication ([facility]) Diabetes mellitus without mention of complication, type II or unspecified type, not stated as uncontrolled Encephalopathy 10/14/2022 Essential hypertension, benign ([facility]) Former smoker 08/15/2017 H/O being hospitalized 02/20/2020 Resp. Distress, Hypoxia, JONE, LLL Pneumonia, Sepsis History of echocardiogram 02/21/2020 ECHO EF 65-70% Lt [facility] Severely Dilated (02/21/2020) Hyperlipidemia, unspecified (CMS/HCC) Hypertonicity of bladder Left thyroid nodule ([facility]) Morbid obesity ([facility]) 07/04/2019 Osteoarthrosis Peripheral vascular disease, unspecified (CMS/HCC) Unspecified combined systolic (congestive) and diastolic (congestive) heart failure ([facility]) Past Surgical History: Procedure Laterality Date BACK [...] without long-term current use of insulin (CMS/HCC) - POCT Glycated hemoglobin, total Degenerative lumbar spinal stenosis - HYDROcodone-acetaminophen ([place]) 7.5-325 MG tablet; Take 1 tablet by [...] and diastolic congestive heart failure (CMS/HCC) - Echocardiogram 2D complete Panlobular emphysema (CMS/HCC) - Pulmonary Function Test - Nsdomjx-Rzuagygqzxu-Rhooeekcwm (Breztri Aerosphere) 160-9-4.8 MCG/ACT aerosol; Inhale 2 puffs in the morning and 2 puffs before bedtime. Symptomatic cholelithiasis - May need removal, but not medically stable for surgery at present Follow up in about 2 weeks (around 05/16/2024) for Test/Lab Review, F/U med changes. documented in this encounter [facility] 04-28-2024 History of Presen t illness [...] Past Medical History: Diagnosis Date Acquired hypothyroidism ([facility]) Acute exacerbation of chronic obstructive pulmonary disease ([facility]) 07/16/2016 Anxiety state ([facility]) Cardiomegaly Chronic airway obstruction ([facility]) Chronic back pain spinal stenosis Depressive disorder ([facility]) Diabetes mellitus without complication ([facility]) Diabetes mellitus without mention of complication, type II or unspecified type, not stated as uncontrolled Encephalopathy 10/14/2022 Essential hypertension, benign ([facility]) Former smoker 08/15/2017 H/O being hospitalized 02/20/2020 Resp. Distress, Hypoxia, JONE, LLL Pneumonia, Sepsis History of echocardiogram 02/21/2020 ECHO EF 65-70% Lt [facility] Severely Dilated (02/21/2020) Hyperlipidemia, unspecified ([facility]) Hypertonicity of bladder Left thyroid nodule ([facility]) Morbid obesity ([facility]) 07/04/2019 Osteoarthrosis Peripheral vascular disease, unspecified ([facility]) Unspecified combined systolic (congestive) and diastolic (congestive) heart failure ([facility]) Medications: Current Outpatient Medications: albuterol (2.5 MG/3ML) [...] the same time., Disp: , Rfl: HYDROcodone-acetaminophen ([place]) 7.5-325 MG tablet, Take 1 tablet by mouth every 6 (six) hours if needed for severe pain, Disp: 120 tablet, Rfl: 0 Lancets (OneTouch Delica Plus [id number]) [facility] [place], USE 1 LANCET TO TEST BLOOD SUGAR [...] min Stress: No Stress Concern Present (11/12/2022) [place] [employer] - Occupational Stress Questionnaire Feeling of Stress : Not at all Social Connections: Moderately Isolated (11/12/2022) Social Connection and Isolation Panel [NHANES] Frequency of Communication with Friends and Family: More than three times a week Frequency of Social Gatherings with Friends and Family: Once a week Attends Confucianist Services: Never Active Member of Clubs or [...] and negative PT pedal pulses NEURO: 5.07 [place] Arturo monofilament test intact to digits and forefoot bilaterally 125Hz tuning fork diminished to 1st MPJ bilaterally ORTHO: Positive pain on palpation to nails 1 through 10 ASSESSMENT 1. Type 2 diabetes mellitus with diabetic neuropathy, without long-term current use of insulin ([facility]) 2. Pain due to onychomycosis of toenails [...] Alessandro Levi DPM documented in this encounter [facility] 03-30-2024 Telephone encount er Note OARRS reviewed, Rx sent into patient's pharmacy. [facility] 03-30-2024 Miscellaneous Notes Formattin g of this note might be different from the original. OARRS reviewed, Rx sent into patient's pharmacy. documented in this encounter [facility] 03-08-2024 Evaluation + Plan note Extrac marisel from: Title:ANES Post-operative Note---General Author: Luciano Grace MD. Date:03/08/24 Plan Transfer/Discharge: Transfer/Discharge Discharge when meets criteria ( To home ). Extracted from: Title:ANES Pre-operative Note 2022 Author:Luciano López. Date:03/08/24 Plan [place] [employer] (ASA) physical status classification: Class IV. Anesthetic Preoperative Plan: Anesthesia Monitored anethesia care. [facility] 09-17-2024 NoteProgress Note-Physician Patient: JAQUELIN NORWOOD Age: 83 years Sex: Female : 1940 Associated Diagnoses: None Author: Luciano Grace MD Postoperative Information Postoperative disposition: Postoperative disposition: To PACU. Optimetrix number: Optimetrix number [id number]. Anesthetic utilized: General. Health Status Allergies: Allergic [...] Discharge when meets criteria ( To home ).[facility] on [facility]:Result Comment: Electronically Signed By: Sanjay [...] hard liquor (44 mL). General instructions Take xgth-xgk-nwwsrzj and prescription medicines only as told by [...] provider. Document Revised: 09/26/2020 Document Reviewed: 09/26/2020 [employer] Patient Education 2023 [employer]. 03/08/2024 10:36:48 Diverticulosis Diverticulosis Diverticulosis is when [...] get enough exercise. You smoke. You take ehtt-tex-typhllq pain medicines. You have a family history [...] Follow these instructions at home: Medicines Take hlcn-sno-hfhxxxs and prescription medicines only as told by your provider. If told, take a fiber supplement or probiotic. Managing constipation Your condition may cause constipation. To prevent or treat constipation, you may need to: Drink enough fluid to keep your pee (urine) pale yellow. Take agon-yjj-kznvlop or prescription medicines. Eat foods that are [...] provider. Document Revised: 03/05/2023 Document Reviewed: 03/05/2023 [employer] Patient Education 2023 [employer]. 03/08/2024 10:36:44 Hemorrhoids, Duxl-pk-Bilq Hemorrhoids Hemorrhoids are swollen veins that may [...] Follow these instructions at home: Medicines Take otnj-jtb-udkidzf and prescription medicines only as told by [...] provider. Document Revised: 02/18/2023 Document Reviewed: 02/18/2023 [employer] Patient Education 2023 [employer]. Follow Up Care 02/16/2024 14:51:06 With:Amaris VALDEZ, Mandi Red [facility] Address: [address] [place] [address], [address] [place] [phone] When: Unknown Comments:Office will call to schedule follow up appointment and/or review any pending biopsy resultsCall forany problems. [facility] 09-17-2024 NotePatient Education - Text Colonoscopy Care After Surgery Please read the instructions outlined below and refer to this sheet in the next few weeks. These discharge instructions provide you with general information on [facility] Your doctor may also give you [...] exercise. ? You smoke. ? You take gfor-doz-urpbgul pain medicines. ? You have a family [...] these instructions at home: Medicines ? Take xoda-hwi-uxsyznk and prescription medicines only as told by your provider. ? If told, take a fiber supplement or probiotic. Managing constipation Your condition may cause constipation. To prevent or treat constipation, you may need to: ? Drink enough fluid to keep your pee (urine) pale yellow. ? Take hvjp-vin-zibnkpy or prescription medicines. ? Eat foods that [...] care provider. Document Lise (more content not included)...[facility] 03-08-2024 NoteProgress Note-Physician Patient: JAQUELIN NORWOOD Age: 83 years Sex: Female : 1940 Associated Diagnoses: None Author: Luciano Grace MD Preoperative Information Anesthesia Preop Info: Time patient [...] CT of the abdomen / SNOMED CT 3152708317 / Confirmed Cholelithiasis / SNOMED CT 180972037 / Confirmed Esophageal dysmotility / SNOMED CT 930291214 / Confirmed Esophageal dysphagia / SNOMED CT 60340779 / Confirmed History of gastric surgery / SNOMED CT 1373279668 / Confirmed, Active Problems (5) Abnormal CT of the abdomen Cholelithiasis Esophageal dysmotility Esophageal dysphagia History of gastric surgery Histories Past Medical History: No active or resolved past medical history items have been selected or recorded. Family History: Heart disease Mother Diabetes mellitus type 2 Mother Cancer Father Mother Procedure history: Sigmoidoscopy ([id number]) on 03/08/2024 at 83 Years. EGD - esophagogastroduodenoscopy ([id number]) on 02/03/2024 at 83 Years. Colonoscopy ([id number]) on 02/03/2024 at 83 Years. Social History Social & Psychosocial Habits Tobacco 12/21/2023 Tobacco Use: Former smoker, quit more . Physical Examination Vital Signs 03/08/2024 8:46 EDT Temperature Temporal Artery 36.7 DegC Heart Rate Monitored 88 bpm Respiratory Rate 2 (more content not included)...[facility] Comment on above:Result Comment: Electronically Signed By: Sanjay VALDEZ, Luciano Leonard\.br\Date and Time Signed: 03/08/24 10:10 [id number] History of Present illness Narrative* Alessandro Levi DPM - 02/18/2024 1:20 PM EDT Patient: [...] Past Medical History: Diagnosis Date Acquired hypothyroidism ([facility]) Acute exacerbation of chronic obstructive pulmonary disease ([facility]) 07/16/2016 Anxiety state ([facility]) Cardiomegaly Chronic airway obstruction ([facility]) Chronic back pain spinal stenosis Depressive disorder ([facility]) Diabetes mellitus without complication ([facility]) Diabetes mellitus without mention of complication, type II or unspecified type, not stated as uncontrolled Encephalopathy 10/14/2022 Essential hypertension, benign ([facility]) Former smoker 08/15/2017 H/O being hospitalized 02/20/2020 Resp. Distress, Hypoxia, JONE, LLL Pneumonia, Sepsis History of echocardiogram 02/21/2020 ECHO EF 65-70% Lt [facility] Severely Dilated (02/21/2020) Hyperlipidemia, unspecified ([facility]) Hypertonicity of bladder Left thyroid nodule ([facility]) Morbid obesity ([facility]) 07/04/2019 Osteoarthrosis Peripheral vascular disease, unspecified ([facility]) Unspecified combined systolic (congestive) and diastolic (congestive) heart failure ([facility]) Medications: Current Outpatient Medications: albuterol (2.5 MG/3ML) [...] the same time., Disp: , Rfl: HYDROcodone-acetaminophen ([place]) 7.5-325 MG tablet, Take 1 tablet by mouth every 6 (six) hours if needed for severe pain, Disp: 120 tablet, Rfl: 0 Lancets (OneTouch Delica Plus Bivlpy50H) [facility], USE 1 LANCET TO TEST BLOOD SUGAR [...] min Stress: No Stress Concern Present (11/12/2022) [place] [employer] - Occupational Stress Questionnaire Feeling of Stress : Not at all Social Connections: Moderately Isolated (11/12/2022) Social Connection and Isolation Panel [NHANES] Frequency of Communication with Friends and Family: More than three times a week Frequency of Social Gatherings with Friends and Family: Once a week Attends Confucianist Services: Never Active Member of Clubs or [...] and negative PT pedal pulses NEURO: 5.07 [employer] [place] Arturo monofilament test intact to digits and forefoot bilaterally 125Hz tuning fork diminished to 1st MPJ bilaterally ORTHO: Positive pain on palpation to nails 1 through 10 ASSESSMENT 1. Onychomycosis 2. Thickened nail 3. Type 2 diabetes mellitus with diabetic neuropathy, without long-term current use of insulin ([facility]) 4. Toe pain, bilateral 5. Venous insufficiency [...] activities. Alessandro Levi DPM documented in this encounterSamaritan [id number] Evaluation + Plan note Extracted from: Title:ANES Post General Author:Jani Peetrson DO Date:02/03/24 Plan Transfer/Discharge: Patient exhibiting no [...] bulb. otherwise, normal duodenum. Images Procedure images: Rec1_hd_video_2023__T09__26_067.jpg Rec1_hd_video__T09__34_629.jpg Rec1_hd_video__14T09__43_827.jpg Rec1_hd_video__T09__55_948.jpg Rec1_hd_video__T09_27_13_375.jpg Rec1_hd_video_2023__14T09__35_569.jpg Rec1_hd_video__14T09__31_722.jpg Rec1_hd_video__14T09_28_44_158.jpg Rec1_hd_video__14T09_29_17_870.jpg Rec1_hd_video__14T09__43_284.jpg Rec1_hd_video__14T09_31_02_072.jpg Rec1_hd_video__14T09_32_03_161.jpg . Post-Procedure Complications: none. Estimated blood loss: none. Specimens: None. Devices/ implants: none left in place. Impression and Plan Schatzki's ring and esophageal stricture status post dilation Gastropathy Duodenitis Recommendations: -Liquid then soft diet today, advance as tolerated tomorrow -Resume home medications -Await pathology results, follow in GI clinic in 1-2 after discharge for Addendum by Jones Glez MD on February 03, 2024 10:30 EDT Increase omeprazole to twice a day Extracted from: Title:Nicholas Basic PRE Author:Bruce Peterson DO Date:02/03/24 Plan [place] [employer] Anesthesiologists (ASA) physical status classification: Class II. Anesthetic Preoperative Plan: Anesthesia General. [facility] 08-14-2024 Hospital Discharge instructions Patient Education [...] including vitamins, herbs, eye drops, creams, and rkkh-amc-jkhjhzg medicines. Any problems you or family members [...] provider tells you to take them. ?Taking bkyz-vau-suhwdrg medicines, vitamins, herbs, and supplements. Follow instructions [...] home. Follow these instructions at home: Take blax-dyu-wrzgmef and prescription medicines only as told by [...] provider. Document Revised: 10/24/2020 Document Reviewed: 10/24/2020 [employer] Patient Education 2022 [employer]. Follow Up Care 12/21/2023 14:19:00 With:Amaris VALDEZ, Mandi Red [facility] Address: [address] [place] [address], [address] [place] [phone] When: Unknown Comments:Office will call Date and Time of Follow-up Appt. [facility] 08-14-2024 NoteProgress Note-Physician Patient: JAQUELIN NORWOOD [...] CT of the abdomen / SNOMED CT 1161175268 / Confirmed Cholelithiasis / SNOMED CT 919598799 / Confirmed Esophageal dysmotility / SNOMED CT 547253086 / Confirmed Esophageal dysphagia / SNOMED CT 93368227 / Confirmed History of gastric surgery / SNOMED CT 9624888918 / Confirmed Physical Examination Vital Signs 02/03/2024 [...] mmHg Diastolic Blood Pres (more content not included)...[facility] Comment on above:Result Comment: Electronically Signed By: Tiago Peterson DO\.br\Date and Time Signed: 02/03/24 10:46 [id number] NotePatient Education - Text Gastroenterology Esophageal Dilatation [...] including vitamins, herbs, eye drops, creams, and seyz-crr-szvpyav medicines. ? Any problems you or family [...] tells you to take them. ? Taking entj-yku-gkhiiwq medicines, vitamins, herbs, and supplements. ? Follow [...] Follow these instructions at home: ? Take kfrj-vir-flqgaft and prescription medicines only as told by [...] this procedure, a nu (more content not included)...[facility]08[facility] NoteProgress Note-Physician Patient: JAQUELIN NORWOOD Age: [...] CT of the abdomen / SNOMED CT 2911221776 / Confirmed Cholelithiasis / SNOMED CT 034333856 / Confirmed Esophageal dysmotility / SNOMED CT 649086309 / Confirmed Esophageal dysphagia / SNOMED CT 42541510 / Confirmed History of gastric surgery / SNOMED CT 2684881075 / Confirmed, Active Problems (5) Abnormal CT [...] br/min Systolic Blood P (more content not included)...[facility] Comment on above:Result Comment: Electronically Signed By: Tiago Peterson DO\.br\Date and Time Signed: 02/03/24 09:23 [id number] Telephone encounter Note* Telephone Encounter - PHILIP Magallanes - 07/27/2023 8:00 AM EST sent [facility] [id number] Miscellaneous Notes* Telephone Encounter - PHILIP Magallanes - 07/27/2023 8:00 AM EST sent documented in this encounterSamaritan [id number] History of Present illness Narrative* Patient is [...] her back in 3 to 4 months [facility] Work Phone: 1(572) 476-778404-26-2021 History of Present illness Narrative* Patient is [...] her back in 3 to 4 months [facility] DO Work Phone: Evaluation + Plan note Future Appointments Appointment Date:01/11/2024 09:30:00 AM Scheduled Provider: [facility] Appointment Type:Surgery [facility] Evaluation note* Diagnosis Essential hypertension ([facility]) Unspecified essential hypertension documented in this encounter [...] neuropathy, without long-term current use of insulin ([facility])- Primary Pain due to onychomycosis of toenails of both feet Venous insufficiency Unspecified venous (peripheral) insufficiency documented in this encounter [facility]* Diagnosis Type 2 diabetes mellitus with diabetic neuropathy, without long-term current use of insulin ([facility])- Primary Pain due to onychomycosis of toenails of both feet Venous insufficiency Unspecified venous (peripheral) insufficiency documented in this encounter [facility]* Diagnosis Type 2 diabetes mellitus with diabetic neuropathy, without long-term current use of insulin ([facility])- Primary Degenerative lumbar spinal stenosis Spinal stenosis of lumbar region Allergic rhinitis, unspecified Depression with anxiety Dysthymic disorder 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) Panlobular emphysema (CMS/HCC) Other emphysema Symptomatic cholelithiasis documented in this encounter [facility]* Diagnosis Panlobular emphysema (CMS/HCC)- Primary Other emphysema Chronic combined systolic and diastolic congestive heart failure ([facility]) Symptomatic cholelithiasis documented in this encounter [facility]* Diagnosis Degenerative lumbar spinal stenosis Spinal stenosis of lumbar region Depression with anxiety Dysthymic disorder documented in this encounter [facility]* Diagnosis Venous insufficiency- Primary Unspecified venous (peripheral) insufficiency Thickened nail Type 2 diabetes mellitus with diabetic neuropathy, without long-term current use of insulin ([facility]) Onychomycosis Dermatophytosis of nail Toe pain, bilateral documented in this encounter [facility]* Diagnosis Depression with anxiety Dysthymic disorder Degenerative lumbar spinal stenosis Spinal stenosis of lumbar region documented in this encounter [facility]* Diagnosis Panlobular emphysema ([facility]/HCC)- Primary Other emphysema COPD with acute exacerbation ([facility]) Acute cystitis without hematuria Symptomatic cholelithiasis Chronic combined systolic and diastolic congestive heart failure ([facility]) Depression with anxiety Dysthymic disorder documented in this encounter [facility]* Diagnosis Degenerative lumbar spinal stenosis Spinal stenosis of lumbar region Depression with anxiety Dysthymic disorder Type 2 diabetes mellitus with diabetic neuropathy, without long-term current use of insulin ([facility])- Primary Pain due to onychomycosis of toenails of both feet Venous insufficiency Unspecified venous (peripheral) insufficiency documented in this encounter [facility]* Diagnosis Nontoxic single thyroid nodule ([facility])- Primary Nontoxic uninodular goiter documented in this encounter [facility]* Diagnosis Type 2 diabetes mellitus with diabetic neuropathy, without long-term current use of insulin ([facility])- Primary Pain due to onychomycosis of toenails of both feet Venous insufficiency Unspecified venous (peripheral) insufficiency documented in this encounter [facility]* Diagnosis Panlobular emphysema ([facility]/HCC)- Primary Other emphysema Moderate recurrent major depression ([facility]) Major depressive disorder, recurrent episode, moderate Depression with anxiety Dysthymic disorder Exudative age-related macular degeneration, unspecified eye, stage unspecified ([facility]) Chronic combined systolic (congestive) and diastolic (congestive) heart failure ([facility]/HCC) documented in this encounter [facility]* Diagnosis Hypersomnolence- Primary Hypersomnia, unspecified Panlobular emphysema (CMS/HCC) Other emphysema documented in this encounter [facility]* Diagnosis Nausea Nausea alone documented in this encounter [facility]* Diagnosis Degenerative lumbar spinal stenosis Spinal stenosis of lumbar region Depression with anxiety Dysthymic disorder documented in this encounter [facility] HealthcareEvaluation noteNo assessment information availableTuscarawas Hospital Work Phone: Evaluation note* Diagnosis Chronic combined [...] Diagnosis Community acquired pneumonia, unspecified laterality- Primary Nausea Nausea alone Bilateral lower extremity edema Generalized weakness 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) documented in this encounter [facility]* Diagnosis Routine general medical examination at health care facility- Primary Routine general medical examination at a health care facility ACP (advance care planning) Other specified counseling Nausea Nausea alone Panlobular emphysema (CMS/HCC) Other emphysema 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) Cognitive impairment Unspecified persistent mental disorders due to conditions classified elsewhere documented in this encounter [facility]* Diagnosis Depression with anxiety Dysthymic disorder Degenerative lumbar spinal stenosis Spinal stenosis of lumbar region documented in this encounter [facility]* Diagnosis Vaginal discomfort documented in this encounter [facility]* Diagnosis Depression with anxiety Dysthymic disorder documented in this encounter [facility]* Diagnosis Acquired hypothyroidism Unspecified hypothyroidism Gastroesophageal reflux disease without esophagitis Esophageal reflux Mixed hyperlipidemia Mixed hyperlipidemia Essential hypertension Unspecified essential hypertension Depression with anxiety Dysthymic disorder Chronic combined systolic and diastolic congestive heart failure (HCC) documented in this encounter [facility]* Diagnosis Acute on chronic combined systolic and diastolic heart failure (HCC)- Primary Acute on chronic combined systolic and diastolic heart failure Panlobular emphysema (HCC) Other emphysema Other specified hypotension Unspecified dementia, unspecified severity, without behavioral disturbance, psychotic disturbance, mood disturbance, and anxiety (HCC) documented in this encounter [facility]* Diagnosis Panlobular emphysema (HCC)- Primary Other emphysema Depression with anxiety Dysthymic disorder Acute on chronic diastolic congestive heart failure (HCC) Chronic combined systolic and diastolic congestive heart failure (HCC) documented in this encounter [facility] HealthcareHistory of [...] 6. We will repeat her carotid Doppler -[facility] DO Work Phone: History [...] 6. We will repeat her carotid Doppler [facility] Work Phone: Hospital course Narrative No data available for this section [facility] Hospital Discharge instructions No data available for this section [facility] Progress note No data available for this section [facility] Chief Complaint * overdue. * JAQUELIN MARTINRUBA is being seen for an annual follow-up of. * overdue. * JAQUELIN SALAZARRUBA is being seen for an annual follow-up of. JAQUELIN NORWOOD is being seen for a 4 month follow-up of.JAQUELIN NORWOOD is being seen for a 4 month follow-up of. Family History No Family History Records FoundUnknown [...] Unknown sister Unknown Summary Purpose Advance Directives No Advanced Directives Records Found Advance Directive Response Recorded Date/ Time Advance Directives No April 20, 2018 1:48pm Advance Directive Response Recorded Date/ Time Advance Directives No April 20, 2018 2:48pm Additional Source Comments INFORMATION SOURCE (unrecogn ized section and content) DATE CREATED AUTHOR 02/27/2022 [employer] DATE CREATED AUTHOR AUTHOR'S ORGANIZ ATION 04/15/2022 [facility] DATE CREATED AUTHOR AUTHOR'S ORGANIZ ATION 10/25/2022 [facility] DATE CREATED AUTHOR AUTHOR'S ORGANIZ ATION 02/06/2024 [facility] DATE CREATED AUTHOR AUTHOR'S ORGANIZ ATION 02/07/2024 [facility] DATE CREATED AUTHOR AUTHOR'S ORGANIZ ATION 03/04/2024 [facility] DATE CREATED AUTHOR AUTHOR'S ORGANIZ ATION 03/09/2024 [facility] DATE CREATED AUTHOR AUTHOR'S ORGANIZ ATION 03/13/2024 [facility] DATE CREATED AUTHOR AUTHOR'S ORGANIZ ATION 03/14/2024 [facility] DATE CREATED AUTHOR AUTHOR'S ORGANIZ ATION 10/04/2024 [facility] DATE CREATED AUTHOR AUTHOR'S ORGANIZ ATION 10/10/2024 [facility] DATE CREATED AUTHOR AUTHOR'S ORGANIZ ATION 01/17/2025 [facility] Reason for Visit (unrecogniz ed section and [...] Specialty Diagnoses / Procedures Referred By Akira t Referred To Contact Podiatry Diagnoses Thickened nail Type 2 diabetes mellitus with diabetic neuropathy, without long-term current use of insulin ([facility]) Procedures NE OFFICE/OUTPATIENT NEW HIGH MDM 60 MINUTES Can Mason PA [address] [place] [address] Alessandro Levi DPM [address] [place] [address] Referral ID Status Reason Start Date Expiration Date V isits Requested Visits Authorized [id number] Closed Specialty Services Required 01/28/2024 07/26/2024 1 1 Reason Onset Date Comments Med Refill 03/02/2024 Reason Comments Congestive Heart Failure Results Echo results Depression Reason Onset Date Comments Med Refill 07/03/2024 Reason Comments Thyroid Nodule 1 year follow up ult rasound TB Reason Comments DM Foot Care Dm nail care Reason Comments AD (Adjustment Disorder) Reason Comments Panlobular emphysema Consultation Specialty Diagnoses / Procedures Referred By Contact Referred To Contact Pulmonary Disease / Pulmonology Diagnoses Panlobular emphysema ([facility]) Procedures NE OFFICE/OUTPATIENT [facility] Yossi Landers MD [address] [facility] [address] [place] [address] Phone: tel: fax: Kristen William, DO [address] [place] [address] Phone: tel: fax: Referral ID Status Reason Start Date Expiration Date V isits Requested Visits Authorized [id number] Closed Specialty Services Required 05/16/2024 11/12/2024 1 1 Reason Onset Date Comments Med Refill 08/06/2024 Reason Comments Congestive Heart Failure Anxiety Reason Comments Med Refill Albuterol for nebuli zer Reason Comments Pneumonia 1 week follow up Reason Onset Date Comments diuretic 10/13/2024 Reason Onset Date Comments Med Refill 10/27/2024 Reason Comments Medicare Annual Wellness Visit Subsequen t Edema Reason Onset Date Comments Med Refill 12/03/2024 Reason Comments vaginal pressure Pt present today to discuss vaginal pressure. Reason Onset Date Comments Med Refill 01/03/2025 Reason Comments Med Refill Reason Comments Follow-up Admitted TB 01/09/25 dx:HTN, CHF exacerbation discharged home 01/11/25 [...] meds if her blood pressure is low Care Teams (unrecognized sec tion and content) Oncology Nurse Relationship Specialty Start Date End Date Yossi Landers MD [address] [place] [address] PCP - General Internal Medicine 11/03/22 Yossi Landers MD [address] [place] [address] PCP - [employer] 11/20/22 Oncology Nurse Relationship Specialty Start Date End Date Yossi Landers MD [address] [place] [address] PCP - General Internal Medicine 11/03/22 Yossi Landers MD [address] [place] [address] PCP - [employer] 11/20/22 Oncology Nurse Relationship Specialty Start Date End Date Yossi Landers MD [address] [place] [address] PCP - General Internal Medicine 11/03/22 Yossi Landers MD [address] [place] [address] PCP - [employer] 11/20/22 Oncology Nurse Relationship Specialty Start Date End Date Yossi Landers MD [address] [place] [address] PCP - General Internal Medicine 11/03/22 Yossi Landers MD [address] [place] [address] PCP - [employer] 11/20/22 Oncology Nurse Relationship Specialty Start Date End Date Yossi Landers MD [address] [place] [address] PCP - General Internal Medicine 11/03/22 Yossi Landers MD [address] [place] [address] PCP - [employer] 11/20/22 Oncology Nurse Relationship Specialty Start Date End Date Yossi Landers MD [address] [place] [address] PCP - General Internal Medicine 11/03/22 Yossi Landers MD [address] [place] [address] PCP - [employer] 11/20/22 Oncology Nurse Relationship Specialty Start Date End Date Yossi Landers MD [address] [place] [address] PCP - General Internal Medicine 11/03/22 Yossi Landers MD [address] [place] [address] PCP - [employer] 11/20/22 Oncology Nurse Relationship Specialty Start Date End Date Yossi Landers MD [address] [place] [address] PCP - General Internal Medicine 11/03/22 Yossi Landers MD [address] [place] [address] PCP - [employer] 11/20/22 Oncology Nurse Relationship Specialty Start Date End Date Yossi Landers MD [address] [place] [address] PCP - General Internal Medicine 11/03/22 Yossi Landers MD [address] [place] [address] PCP - [employer] 11/20/22 Oncology Nurse Relationship Specialty Start Date End Date Yossi Landers MD [address] [place] [address] PCP - General Internal Medicine 11/03/22 Yossi Landers MD [address] [place] [address] PCP - [employer] 11/20/22 Oncology Nurse Relationship Specialty Start Date End Date Yossi Landers MD [address] [place] [address] PCP - General Internal Medicine 11/03/22 Yossi Landers MD [address] [place] [address] PCP - [employer] 11/20/22 Oncology Nurse Relationship Specialty Start Date End Date Yossi Landers MD [address] [place] [address] PCP - General Internal Medicine 11/03/22 Yossi Landers MD [address] [place] [address] PCP - [employer] 11/20/22 Oncology Nurse Relationship Specialty Start Date End Date Yossi Landers MD [address] [place] [address] PCP - General Internal Medicine 11/03/22 Yossi Landers MD [address] [place] [address] PCP - [employer] 11/20/22 Oncology Nurse Relationship Specialty Start Date End Date Yossi Landers MD [address] [place] [address] PCP - General Internal Medicine 11/03/22 Yossi Landers MD [address] [place] [address] PCP - [employer] 11/20/22 Oncology Nurse Relationship Specialty Start Date End Date Yossi Landers MD [address] [place] [address] PCP - General Internal Medicine 11/03/22 Yossi Landers MD [address] [place] [address] PCP - [employer] 11/20/22 Oncology Nurse Relationship Specialty Start Date End Date Yossi Landers MD [address] [place] [address] PCP - General Internal Medicine 11/03/22 Yossi Landers MD [address] [place] [address] PCP - [employer] 11/20/22 Seble Mejia, CIPRIANO Clinical Advocate [facility] 07/29/24 Oncology Nurse Relationship Specialty Start Date End Date Yossi Landers MD [address] [place] [address] PCP - General Internal Medicine 11/03/22 Yossi Lanedrs MD [address] [place] [address] PCP - [employer] 11/20/22 Seble Mejia, CIPRIANO Clinical Advocate [facility] 07/29/24 Team Status: Active Member Role Status Dates Yossi Landers II MD Primary Care Provider Active Team Status: Inactive Member Role Status Dates Yossi Landers II MD Primary Care Provider Active Start: August 13, 2024 End: August 13, 2024 Elmer Greene DO Attending Provider Active Start: August 13, 2024 End: August 13, 2024 Oncology Nurse Relationship Specialty Start Date End Date Yossi Landers MD [address] [place] [address] PCP - General Internal Medicine 11/03/22 Yossi Landers MD [address] [place] [address] PCP - [employer] 11/20/22 Seble Mejia, CIPRIANO Clinical Advocate [facility] 07/29/24 Oncology Nurse Relationship Specialty Start Date End Date Yossi Landers MD [address] [place] [address] PCP - General Internal Medicine 11/03/22 Yossi Landers MD [address] [place] [address] PCP - [employer] 11/20/22 Seble Mejia, RN Clinical [facility] 07/29/24 Oncology Nurse Relationship Specialty Start Date End Date Yossi Landers MD [address] [place] [address] PCP - General Internal Medicine 11/03/22 Yossi Landers MD [address] [place] [address] PCP - [employer] 11/20/22 Daniela Alvarado LPN 09/09/24 Oncology Nurse Relationship Specialty Start Date End Date Yossi Landers MD [address] [place] [address] PCP - General Internal Medicine 11/03/22 Yossi Landers MD [address] [place] [address] PCP - [employer] 11/20/22 Daniela Alvarado LPN 09/09/24 Oncology Nurse Relationship Specialty Start Date End Date Yossi Landers MD [address] [place] [address] PCP - General Internal Medicine 11/03/22 Yossi Landers MD [address] [place] [address] PCP - [employer] 11/20/22 Daniela Alvarado LPN 09/09/24 Oncology Nurse Relationship Specialty Start Date End Date Yossi Landers MD [address] [place] [address] PCP - General Internal Medicine 11/03/22 Yossi Landers MD [address] [place] [address] PCP - [employer] 11/20/22 Daniela Alvarado LPN 09/09/24 Oncology Nurse Relationship Specialty Start Date End Date Yossi Landers MD [address] [place] [address] PCP - General Internal Medicine 11/03/22 Yossi Landers MD [address] [place] [address] PCP - Human 11/20/22 Daniela Alvarado PLATFORM ENGINEER 09/09/24 Team Status: Active Member Role Status Dates Yossi Landers II MD Primary Care Provider Active Start: August 14, 2024 Carter Joseph DO Attending Provider Active Sta rt: August 14, 2024 Team Status: Inactive Member Role Status Dates Elías Graham MD Attending Provider Active Sta rt: October 01, 2024 End: October 01, 2024 Oncology Nurse Relationship Specialty Start Date End Date Yossi Landers MD [address] [place] [address] PCP - General Internal Medicine 11/03/22 Yossi Landers MD [address] [place] [address] PCP - [employer] 11/20/22 Daniela Alvarado LPN 09/09/24 Oncology Nurse Relationship Specialty Start Date End Date Yossi Landers MD [address] [place] [address] PCP - General Internal Medicine 11/03/22 Yossi Landers MD [address] [place] [address] PCP - [employer] 11/20/22 Daniela Alvarado LPN 09/09/24 Oncology Nurse Relationship Specialty Start Date End Date Yossi Landers MD [address] [place] [address] PCP - General Internal Medicine 11/03/22 Yossi Landers MD [address] [place] [address] PCP - [employer] 11/20/22 Daniela Alvarado LPN 09/09/24 Oncology Nurse Relationship Specialty Start Date End Date Yossi Landers MD [address] [place] [address] PCP - General Internal Medicine 11/03/22 Yossi Landers MD [address] [place] [address] PCP - [employer] 11/20/22 Daniela Alvarado LPN 09/09/24 Oncology Nurse Relationship Specialty Start Date End Date Yossi Landers MD [address] [place] [address] PCP - General Internal Medicine 11/03/22 Yossi Landers MD [address] [place] [address] PCP - [employer] 11/20/22 Daniela Alvarado LPN 09/09/24 Oncology Nurse Relationship Specialty Start Date End Date Yossi Landers MD [address] [place] [address] PCP - General Internal Medicine 11/03/22 Yossi Landers MD [address] [place] [address] PCP - [employer] 11/20/22 Daniela Alvarado LPN [address] [place] [address] 09/09/24 Oncology Nurse Relationship Specialty Start Date End Date Yossi Landers MD [address] [place] [address] PCP - General Internal Medicine 11/03/22 Yossi Landers MD [address] [place] [address] PCP - [employer] 11/20/22 Daniela Alvarado LPN [address] [place] [address] 09/09/24 Oncology Nurse Relationship Specialty Start Date End Date Yossi Landers MD [address] [place] [address] PCP - General Internal Medicine 11/03/22 Yossi Landers MD [address] [place] [address] PCP - [employer] 11/20/22 Daniela Alvarado LPN [address] [place] [address] 09/09/24 Oncology Nurse Relationship Specialty Start Date End Date Yossi Landers MD [address] [place] [address] PCP - General Internal Medicine 11/03/22 Yossi Landers MD [address] [place] [address] PCP - [employer] 11/20/22 Daniela Alvarado LPN [address] [place] [address] 09/09/24 Oncology Nurse Relationship Specialty Start Date End Date Yossi Landers MD [address] [place] [address] PCP - General Internal Medicine 11/03/22 Yossi Landers MD [address] [place] [address] PCP - [employer] 11/20/22 Daniela Alvarado LPN [address] [place] [address] 09/09/24 Oncology Nurse Relationship Specialty Start Date End Date Yossi Landers MD [address] [place] [address] PCP - General Internal Medicine 11/03/22 Yossi Landers MD [address] [place] [address] PCP - [employer] 11/20/22 Daniela Alvarado LPN [address] [place] [address] 09/09/24 Oncology Nurse Relationship Specialty Start Date End Date Yossi Landers MD [address] [place] [address] PCP - General Internal Medicine 11/03/22 Yossi Landers MD [address] [place] [address] PCP - [employer] 11/20/22 Daniela Alvarado LPN [address] [place] [address] 09/09/24 Oncology Nurse Relationship Specialty Start Date End Date Yossi Landers MD [address] [place] [address] PCP - General Internal Medicine 11/03/22 Yossi Landers MD [address] [place] [address] PCP - Hum[employer] 11/20/22 Daniela Alvarado LPN [address] [place] [address] 09/09/24 Oncology Nurse Relationship Specialty Start Date End Date Yossi Landers MD [address] [place] [address] PCP - General Internal Medicine 11/03/22 Yossi Landers MD [address] [place] [address] PCP - [employer] 11/20/22 Daniela Alvarado LPN [address] [place] [address] 09/09/24 Goals (unrecognized section and content) Goals [...] BE BASED ON THE PRIMARY CLINICAL RECORDS. [facility]. provides no warranty or guarantee of the accuracy or completeness of information in this document.
--- OUTSIDE RECORDS SUMMARY | 2025-01-18 07:38 | XMS_ITS | Encounter Summary ---
Author Organization [facility] Address [address] [place] [address] Care Team Providers Care Industrial Production Manager Name Role Phone Yossi Landers MD Primary Care Provider Yossi Landers MD Unavailable [phone] Seble Mejia RN Unavailable [phone] Daniela Alvarado LPN Unavailable Encounter Details Date Type Department Care Team (Late st Contact Info) Description 11/03/2023 Abstract [facility] [place] [facility] 112 [facility] 110 [place] [address] Yossi Landers MD 112 [facility] 110 [place], [place] [id number] Social History Tobacco Use Types Packs/Day Years [...] Recorded Patient Health Questionnaire-2 Score 0 10/12/2023 [facility] - Occupational Stress Questionnaire [...] Visit [facility] [place] [address] [place] [address] Yossi Landers MD [address] [facility] [address] [place] [address] documented as of this encounter Visit Diagnoses Not on filedocumented in this encounter Care Teams Industrial Production Manager Relationship Specialty Start Date End Date Yossi Landers MD [address] [facility] [address] [place] [address] PCP - General Internal Medicine 11/03/22 Yossi Landers MD [address] [facility] [address] [place] [address] PCP - [employer] 11/20/22 Seble Mejia RN [address] [place] [address] Clinical Advocate Family [facility] 07/29/24 09/09/24 Daniela Alvarado LPN [address] [place] [address] 09/09/24 documented as of this encounter
--- OUTSIDE RECORDS SUMMARY | 2025-01-18 07:38 | XMS_ITS | Encounter Summary ---
Author Organization [facility] Address [address] [place] [address] Care Team Providers Care Canvas Shrinker Name Role Phone Yossi Landers MD Primary Care Provider Yossi Landers MD Unavailable [phone] Seble Mejia RN Unavailable [phone] Daniela Alvarado LPN Unavailable Encounter Details Date Type Department Care Team (Late st Contact Info) Description 12/30/2023 Abstract [facility] [place] [facility] 112 [facility] 110 [place] [address] Yossi Landers MD 112 [facility] 110 [place], [place] [id number] Social History Tobacco Use Types Packs/Day Years [...] any clubs o r organizations such as religious groups, unions, fraternal or athletic groups, or [...] Recorded Patient Health Questionnaire-2 Score 0 10/12/2023 [facility] - Occupational Stress Questionnaire [...] Visit [facility] [place] [address] [email or web address] [address] [place] [address] Yossi Landers MD [address] [facility] 110 [place] [address] documented as of this encounter Visit Diagnoses Not on filedocumented in this encounter Care Teams Canvas Shrinker Relationship Specialty Start Date End Date Yossi Landers MD [address] [facility] [address] [place] [address] PCP - General Internal Medicine 11/03/22 Yossi Landers MD [address] [facility] [address] [place] [address] PCP - Humana 11/20/22 Seble Mejia RN [address] [place] [address] Clinical [facility] 07/29/24 09/09/24 Daniela Alvarado LPN 112 [place] [address] 09/09/24 documented as of this encounter
--- OUTSIDE RECORDS SUMMARY | 2025-01-18 07:38 | XMS_ITS | Encounter Summary ---
Author Organization [facility] Address [address] [place] [address] Care Team Providers Care Sales Incentive Analyst Name Role Phone Yossi Landers MD Primary Care Provider Yossi Landers MD Unavailable [phone] Seble Mejia RN Unavailable Daniela Alvarado LPN Unavailable Encounter Details Date Type Department Care Team (Late st Contact Info) Description 11/03/2023 Abstract [facility] [place] [facility] 112 [facility] 110 [place] [address] Yossi Landers MD 112 [facility] 110 [place], [place] [id number] Social History Tobacco Use Types Packs/Day Years [...] Recorded Patient Health Questionnaire-2 Score 0 10/12/2023 [facility] - Occupational Stress Questionnaire [...] Visit [facility] [place] [address] [facility] [address] [place] [address] Yossi Landers MD [address] [facility] [address] [place] [address] documented as of this encounter Visit Diagnoses Not on filedocumented in this encounter Care Teams Sales Incentive Analyst Relationship Specialty Start Date End Date Yossi Landers MD [address] [facility] [address] [place] [address] PCP - General Internal Medicine 11/03/22 Yossi Landers MD [address] [facility] [address] [place] [address] PCP - Humana 11/20/22 Seble Mejia RN [address] [place] [address] Clinical [facility] 07/29/24 09/09/24 Daniela Alvarado LPN 112 [place] [address] 09/09/24 documented as of this encounter
--- OUTSIDE RECORDS SUMMARY | 2025-01-18 07:38 | XMS_ITS | Encounter Summary ---
Author Organization [facility] Address [address] [place] [address] Care Team Providers Care Heel Edge Inker Machine Name Role Phone Yossi Landers MD Primary Care Provider [phone] Yossi Landers MD Unavailable [phone] Daniela Alvarado LPN Unavailable Encounter Details Date Type Department Care Team (Late st Contact Info) Description 10/10/2024 Abstract [facility] [place] [facility] [address] [facility] 110 [place] [address] Yossi Landers MD 112 [facility] 110 [place], [place] [id number] Social History Tobacco Use Types Packs/Day Years [...] Recorded Patient Health Questionnaire-2 Score 0 10/07/2024 [facility] [place] of Occupat ional Health - Occupational Stress [...] EDT Office Visit [facility] [place] [facility] [address] [facility] [address] [place] [address] Yossi Landers MD [address] [facility] 110 [place], [place] [address] documented as of this encounter Visit Diagnoses Not on filedocumented in this encounter Care Teams Heel Edge Inker Machine Relationship Specialty Start Date End Date Yossi Landers MD [address] [place] [address] PCP - General Internal Medicine 11/03/22 Yossi Landers MD [address] [facility] 110 [place] [address] PCP - Humana 11/20/22 Daniela Alvarado LPN [address] [address] 09/09/24 documented as of this encounter
--- OUTSIDE RECORDS SUMMARY | 2025-01-18 07:38 | XMS_ITS | Encounter Summary ---
Author Organization [facility] Address [address] [place] [address] Phone Care Team Providers Care Railroad Carman Name Role Phone Unavailable Primary Care Provider Unavailabl e Encounter Details Date Type Department Care Team (Late st Contact Info) Description 02/10/2020 Orders Only [facility] [address] [place] [place] [address] Conversion, Onbase Social History Tobacco Use Types [...]
--- OUTSIDE RECORDS SUMMARY | 2025-01-18 07:38 | XMS_ITS | Encounter Summary ---
Author Organization [facility] Address [address] [place] [address] Phone Care Team Providers Care Logistics Lead Name Role Phone Unavailable Primary Care Provider Unavailabl e Encounter Details Date Type Department Care Team (Late st Contact Info) Description 04/04/2020 Orders Only [facility] [address] [place] [address] Conversion, Onbase Social History Tobacco Use Types [...]
--- OUTSIDE RECORDS SUMMARY | 2025-01-18 07:38 | XMS_ITS | Encounter Summary ---
Author Organization [facility] Address [address] [place] [address] Care Team Providers Care Desktop Support Specialist Name Role Phone Yossi Landers MD Primary Care Provider [phone] Yossi Landers MD Unavailable [phone] Seble Mejia RN Unavailable Daniela Alvarado LPN Unavailable Encounter Details Date Type Department Care Team (Late st Contact Info) Description 12/02/2023 Abstract [facility] [place] [facility] 112 [facility] 110 [place] [id number] Yossi Landers MD 112 [facility] 110 [place], [place] [phone] Social History Tobacco Use Types Packs/Day Years [...] often do you attend chur ch or shinto services? Never 11/12/2022 Do you belong to [...] Recorded Patient Health Questionnaire-2 Score 0 10/12/2023 [facility] [...] [address] [facility] 110 [place] [address] Yossi Landers MD [address] [facility] 110 [place] [address] documented as of this encounter Visit Diagnoses Not on filedocumented in this encounter Care Teams Desktop Support Specialist Relationship Specialty Start Date End Date Yossi Landers MD [address] [facility] 110 [place] [address] PCP - General Internal Medicine 11/03/22 Yossi Landers MD [address] [facility] [address] [place] [address] PCP - Hum[employer] 11/20/22 Seble Mejia RN [address] [place] [address] Clinical [facility] 07/29/24 09/09/24 Daniela Alvarado LPN 112 [place] [address] 09/09/24 documented as of this encounter
--- OUTSIDE RECORDS SUMMARY | 2025-01-18 07:38 | XMS_ITS | Encounter Summary ---
Author Organization [facility] Address [address] [place] [address] Care Team Providers Care Board Certified Orthodontist Name Role Phone Yossi Landers MD Primary Care Provider [phone] Yossi Landers MD Unavailable [phone] Seble Mejia RN Unavailable Daniela Alvarado LPN Unavailable Encounter Details Date Type Department Care Team (Late st Contact Info) Description 12/30/2023 Orders Only [facility] [place] [facility] [address] [facility] 110 [place] [address] Unallocated, Noms Provider, [address] [place] [address] Social History Tobacco Use Types Packs/Day Years [...] Recorded Patient Health Questionnaire-2 Score 0 10/12/2023 [facility] of Occupat [...] EDT Office Visit [facility] [place] 112 [facility] 110 [place] [address] Yossi Lnaders MD 112 [facility] 110 [place] [address] documented as of this encounter Procedures Procedure [...] on filedocumented in this encounter Care Teams Board Certified Orthodontist Relationship Specialty Start Date End Date Yossi Landers MD [address] [facility] 110 [place] [address] PCP - General Internal Medicine 11/03/22 Yossi Landers MD [address] [facility] 110 [place] [address] PCP - Hum[employer] 11/20/22 Seble Mejia RN [address] [place] [address] Clinical [facility] 07/29/24 09/09/24 Daniela Alvarado LPN [address] [facility] 110 [place] [address] 09/09/24 documented as of this encounter
--- OUTSIDE RECORDS SUMMARY | 2025-01-18 07:38 | XMS_ITS | Encounter Summary ---
Author Organization [facility] Address [address] [place] [address] Care Team Providers Care Head Of Conservation Name Role Phone Yossi Landers MD Primary Care Provider [phone] Yossi Landers MD Unavailable [phone] Seble Mejia RN Unavailable Daniela Alvarado LPN Unavailable Encounter Details Date Type Department Care Team (Late st Contact Info) Description 11/03/2023 Orders Only [facility] [place] [facility] [address] [facility] 110 [place] [address] Unallocated, Noms Provider, [address] [place] [address] Social History Tobacco Use Types Packs/Day Years [...] Visit [facility] [place] [address] [facility] 110 [place] [address] Yossi Landers MD [address] [facility] 110 [place], [place] [address] documented as of this encounter Procedures Procedure [...] filedocumented in this encounter Care Teams Head Of Conservation Relationship Specialty Start Date End Date Yossi Landers MD [address] [facility] 110 [place], [place] [address] PCP - General Internal Medicine 11/03/22 Yossi Landers MD [address] [facility] 110 [place] [address] PCP - [employer] 11/20/22 Seble Mejia, RN [address] [place] [address] Clinical [facility] Family [facility] 07/29/24 09/09/24 Daniela Alvarado LPN [address] [address] 09/09/24 documented as of this encounter
--- OUTSIDE RECORDS SUMMARY | 2025-01-18 07:38 | XMS_ITS | Encounter Summary ---
Author Organization [facility] Address [address] [place] [address] Phone Care Team Providers Care Emergency Department Manager Name Role Phone Unavailable Primary Care Provider Unavailabl e Encounter Details Date Type Department Care Team (Late st Contact Info) Description 04/18/2021 Orders Only [facility] [address] [place] [address] Conversion, Onbase Social History Tobacco Use Types [...]
--- OUTSIDE RECORDS SUMMARY | 2025-01-18 07:38 | XMS_ITS | Encounter Summary ---
Author Organization [facility] Address [address] [place] [address] Care Team Providers Care Skip Loader Name Role Phone Yossi Landers MD Primary Care Provider [phone] Yossi Landers MD Unavailable [phone] Daniela Alvarado LPN Unavailable Encounter Details Date Type Department Care Team (Late st Contact Info) Description 10/19/2024 Abstract [facility] [place] [facility] [address] [facility] 110 [place] [address] Yossi Landers MD 112 [facility] 110 [place], [place] [address] Social History Tobacco Use Types Packs/Day Years [...] How often do you attend chur or restoration services? Never 11/12/2022 Do you [...] Recorded Patient Health Questionnaire-2 Score 0 10/07/2024 [employer] Point of Occupat ional Health - Occupational Stress [...] PM EDT Office Visit [facility] [place] [facility] [address] [facility] 110 [place] [address] Yossi Landers MD [address] [facility] 110 [place], [place] [address] documented as of this encounter Visit Diagnoses Not on filedocumented in this encounter Care Teams Skip Loader Relationship Specialty Start Date End Date Yossi Landers MD [address] [place] [address] PCP - General Internal Medicine 11/03/22 Yossi Landers MD [address] [facility] 110 [place] [address] PCP - [employer] 11/20/22 Daniela Alvarado LPN [address] [address] 09/09/24 documented as of this encounter
--- OUTSIDE RECORDS SUMMARY | 2025-01-18 07:38 | XMS_ITS | Encounter Summary ---
Author Organization [facility] Address [address] [place] [address] Care Team Providers Care Hospital Clinic Assistant Name Role Phone Yossi Landers MD Primary Care Provider [phone] Yossi Landers MD Unavailable [phone] Daniela Alvarado LPN Unavailable Encounter Details Date Type Department Care Team (Late st Contact Info) Description 10/24/2024 Abstract [facility] [place] [facility] 112 [facility] 110 [place] [address] Yossi Landers MD 112 [facility] 110 [place], [place] [address] Social History Tobacco Use Types Packs/Day Years [...] How often do you attend chur or congregational services? Never 11/12/2022 Do you [...] Recorded Patient Health Questionnaire-2 Score 0 10/07/2024 [facility] of Occupat ional Health - Occupational Stress [...] PM EDT Office Visit [facility] [place] [facility] [address] 110 [place] [address] Yossi Landers MD [address] [facility] 110 [place], [place] [address] documented as of this encounter Visit Diagnoses Not on filedocumented in this encounter Care Teams Hospital Clinic Assistant Relationship Specialty Start Date End Date Yossi Landers MD [address] [place] [address] PCP - General Internal Medicine 11/03/22 Yossi Landers MD [address] [facility] 110 [place] [address] PCP - [employer] 11/20/22 Daniela Alvarado LPN [address] [address] 09/09/24 documented as of this encounter
--- OUTSIDE RECORDS SUMMARY | 2025-01-18 07:38 | XMS_ITS | Encounter Summary ---
Author Organization [facility] Address [address] [place] [address] Care Team Providers Care Trap Puller Name Role Phone Yossi Landers MD Primary Care Provider [phone] Yossi Landers MD Unavailable [phone] Daniela Alvarado LPN Unavailable Encounter Details Date Type Department Care Team (Late st Contact Info) Description 01/12/2025 Abstract [facility] [address] [place] [address] Daniela Alvarado LPN [address] [facility] 110 [place] [address] Social History Tobacco Use Types Packs/Day Years [...] Recorded Patient Health Questionnaire-2 Score 2 01/16/2025 [facility] of Occupat ional [...] PM EDT Office Visit [facility] [place] [facility] [address] 110 [place] [address] Yossi Landers MD [address] 110 [place] [address] documented as of this encounter Visit Diagnoses Not on filedocumented in this encounter Care Teams Trap Puller Relationship Specialty Start Date End Date Yossi Landers MD [address] [place] [address] PCP - General Internal Medicine 11/03/22 Yossi Landers MD [address] [facility] 110 [place] [address] PCP - [employer] 11/20/22 Daniela Alvarado LPN [address] [address] 09/09/24 documented as of this encounter
--- OUTSIDE RECORDS SUMMARY | 2025-01-18 07:38 | XMS_ITS | Encounter Summary ---
Author Organization [facility] Address [address] [place] [address] Care Team Providers Care Prn Occupational Therapist Name Role Phone Yossi Landers MD Primary Care Provider [phone] Yossi Landers MD Unavailable [phone] Daniela Alvarado LPN Unavailable Encounter Details Date Type Department Care Team (Late st Contact Info) Description 01/12/2025 Patient Outreach [facility] [address] [place] [address] Daniela Alvarado LPN [address] [facility] 110 [place] [address] Social History Tobacco Use Types Packs/Day Years [...] How often do you attend chur or buddhism services? Never 11/12/2022 Do you belong to any clubs o r organizations such as latter day groups, unions, fraternal or athletic groups, or [...] Recorded Patient Health Questionnaire-2 Score 2 01/09/2025 [facility] - Occupational Stress Questionnaire [...] on file documented as of this encounter Progress Notes * Daniela Alvarado LPN - 01/12/2025 10:59 AM EDT Images from the original note were not included. Records in chart. CINDA complete, medications partially reconciled with pts daughter. States pt doingok. Asks public relations writer about salt. She states hospital told her she may have to quit having salt. She askshow much salt pt can have per day. I tell pts daughter I can't find anything in discharge that saysa certain amount of salt pt may have. I tell pts daughter to avoid high salt foods and not to add salt to pts food. Ok to call for weekly monitoring. Flowsheet Row [facility] Daniela Alvarado LPN Hospital Information ED, Hospital or Mcfp Facility Discharge? Hospital Patient has been contacted within two business days of discharge Yes Diagnosis CHF exacerbation: (2) Pericardial effusion: (3) Essential hypertension: (4) COPD exacerbation: Discharge Date 01/11/25 Discharged To: Home Setting Discharge Hospital [facility] Engagement Call Start Time 1059 [...] per discahrge notes. Call End Time 1107 documented in this encounter Plan of Treatment Upcoming Encounters Date Type Department Care Team (Late st Contact Info) Description 01/30/2025 2:15 PM EDT Office Visit [facility] [place] 112 [facility] 110 [place] [address] Yossi Landers MD 112 [facility] 110 [place] [address] documented as of this encounter Visit Diagnoses Diagnosis Acute on chronic congestive heart failure, unspecified heart failure type (HCC)- Primary Pericardial effusion (HHS-HCC) Unspecified disease of pericardium Essential hypertension Unspecified essential hypertension COPD exacerbation (HCC) Obstructive chronic bronchitis with exacerbation documented in this encounter Care Teams Prn Occupational Therapist Relationship Specialty Start Date End Date Yossi Landers MD [address] [address] PCP - General Internal Medicine 11/03/22 Yossi Landers MD [address] [address] PCP - [employer] 11/20/22 Daniela Alvarado LPN [address] [address] 09/09/24 documented as of this encounter
--- OUTSIDE RECORDS SUMMARY | 2025-01-18 07:38 | XMS_ITS | Encounter Summary ---
Author Organization [facility] Address [address] [place] [address] Care Team Providers Care Patch Setter Name Role Phone Yossi Landers MD Primary Care Provider Yossi Landers MD Unavailable [phone] Seble Mejia RN Unavailable Daniela Alvarado LPN Unavailable Encounter Details Date Type Department Care Team (Late st Contact Info) Description 12/02/2023 Abstract [facility] [place] [facility] 112 [facility] 110 [place] [address] Yossi Landers MD 112 [facility] 110 [place], [place] [address] Social History Tobacco Use Types Packs/Day Years [...] Recorded Patient Health Questionnaire-2 Score 0 10/12/2023 [facility] - Occupational Stress Questionnaire Answer [...] [address] [facility] 110 [place] [address] Yossi Landers MD [address] [facility] 110 [place] [address] documented as of this encounter Visit Diagnoses Not on filedocumented in this encounter Care Teams Patch Setter Relationship Specialty Start Date End Date Yossi Landers MD [address] [facility] 110 [place] [address] PCP - General Internal Medicine 11/03/22 Yossi Lanedrs MD [address] [facility] 110 [place] [address] PCP - [employer] 11/20/22 Seble Mejia RN [address] [place] [address] Clinical [facility] Family [facility] 07/29/24 09/09/24 Daniela Alvarado LPN 112 [place] [address] 09/09/24 documented as of this encounter
--- OUTSIDE RECORDS SUMMARY | 2025-01-18 07:38 | XMS_ITS | Encounter Summary ---
Author Organization [facility] Address [address] [facility] [place] [address] Care Team Providers Care Street Railway Line Installer Name Role Phone Yossi Landers MD Primary Care Provider Yossi Landers MD Unavailable [phone] Seble Mejia RN Unavailable Daniela Alvarado LPN Unavailable Encounter Details Date Type Department Care Team (Late st Contact Info) Description 11/13/2022 Abstract [facility] [place] [facility] 112 [facility] 110 [place] [address] Yossi Landers MD 112 [facility] 110 [place], [place] [address] Social History Tobacco Use Types Packs/Day Years [...] any clubs o r organizations such as hindu groups, unions, fraternal or athletic groups, or [...] 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 Not very hard 11/12/2022 [facility] of Occupat ional Health - [...] Visit [facility] [place] [address] [facility] 110 [place] [address] Yossi Landers MD [address] [facility] 110 [place] [address] documented as of this encounter Visit Diagnoses Not on filedocumented in this encounter Care Teams Street Railway Line Installer Relationship Specialty Start Date End Date Yossi Landers MD [address] [facility] 110 [place] [address] PCP - General Internal Medicine 11/03/22 Yossi Landers MD [address] [facility] 110 [place] [address] PCP - [employer] 11/20/22 Seble Mejia, CIPRIANO [address] [place] [address] Clinical [facility] Family Medicine 07/29/24 09/09/24 Daniela Alvarado LPN 112 [facility] 110 [place] [address] 09/09/24 documented as of this encounter
--- OUTSIDE RECORDS SUMMARY | 2025-01-18 07:38 | XMS_ITS | Encounter Summary ---
Author Organization [facility] Address [address] [place] [address] Care Team Providers Care Mold Design Engineer Name Role Phone Yossi Landers MD Primary Care Provider [phone] Yossi Landers MD Unavailable Daniela Alvarado LPN Unavailable Encounter Details Date Type Department Care Team (Late st Contact Info) Description 01/16/2025 Bamboo flowsheet [facility] [place] [facility] [address] [facility] 110 [place] [address] Yossi Landers MD [address] [facility] 110 [place], [place] [address] Social History Tobacco Use Types Packs/Day Years [...] Recorded Patient Health Questionnaire-2 Score 2 01/16/2025 [facility] of Occupat ional Health - Occupational Stress [...] pleasure in doing things Not at all 01/16/2025 11:20 AM EDT Kimberly Sanchez L PN Feeling down, depressed, or hopeless Not at all 01/16/2025 11:20 AM EDT Kimberly Sanchez L PN Patient Health Questionnaire -2 Score 0 01/16/2025 11:20 AM EDT Kimberly Sanchez L PN documented as of this encounter Plan of Treatment Upcoming Encounters Date Type Department Care Team (Late st Contact Info) Description 01/30/2025 2:15 PM EDT Office Visit [facility] [place] [facility] [address] [facility] 110 [place] [address] Yossi Landers MD [address] [facility] [address] [place] [address] documented as of this encounter Visit Diagnoses Not on filedocumented in this encounter Care Teams Mold Design Engineer Relationship Specialty Start Date End Date Yossi Landers MD [address] [facility] [address] [place] [address] PCP - General Internal Medicine 11/03/22 Yossi Landers MD [address] [facility] [address] [place] [address] PCP - Hum[employer] 11/20/22 Daniela Alvarado LPN [address] [facility] [address] [place] [address] 09/09/24 documented as of this encounter
--- OUTSIDE RECORDS SUMMARY | 2025-01-18 07:38 | XMS_ITS | Encounter Summary ---
Author Organization [facility] Address [address] [place] [address] Care Team Providers Care Hydrogen Treater Name Role Phone Yossi Landers MD Primary Care Provider [phone] Yossi Landers MD Unavailable [phone] Daniela Alvarado LPN Unavailable Encounter Details Date Type Department Care Team (Late st Contact Info) Description 01/10/2025 Telephone [facility] [place] [facility] [address] [facility] 110 [place] [address] Yossi Landers MD 112 [facility] 110 [place], [place] [address] Social History Tobacco Use Types Packs/Day Years [...] How often do you attend chur or christianity services? Never 11/12/2022 Do you belong to [...] Recorded Patient Health Questionnaire-2 Score 2 01/09/2025 [facility] of Occupat ional [...] encounter Miscellaneous Notes * Telephone Encounter - Seble Lieberman MA - 01/10/2025 11:44 AM EDT Hi, this is Hermelinda with [facility] health care. I am calling because we received a referral on a mutual patient call to see if Dr. Pyle will give a verbal order to follow for home care services. Patient's name is Jaquelin Solis. D, [place] [id number], if you could please giveour intake department a call back at [phone], extension [phone], that is a secure line to leave amessage. Thank you. Returned call stated yes documented in this encounter Plan of Treatment Upcoming Encounters Date Type Department Care Team (Late st Contact Info) Description 01/30/2025 2:15 PM EDT Office Visit [facility] [place] [address] [facility] 110 [place] [address] Yossi Landers MD [address] [facility] 110 [place] [address] documented as of this encounter Visit Diagnoses Not on filedocumented in this encounter Care Teams Hydrogen Treater Relationship Specialty Start Date End Date Yossi Landers MD [address] [facility] 110 [place] [address] PCP - General Internal Medicine 11/03/22 Yossi Landers MD [address] [facility] 110 [place] [address] PCP - Hum[employer] 11/20/22 Daniela Alvarado LPN [address] [facility] 110 [place] [address] 09/09/24 documented as of this encounter
--- OUTSIDE RECORDS SUMMARY | 2025-01-18 07:38 | XMS_ITS | Encounter Summary ---
Author Organization [facility] Address [address] [place] [address] Care Team Providers Care Train Dispatcher Name Role Phone Yossi Landers MD Primary Care Provider [phone] Yossi Landers MD Unavailable [phone] Daniela Alvarado LPN Unavailable Encounter Details Date Type Department Care Team (Late st Contact Info) Description 10/10/2024 Abstract [facility] [place] [facility] [address] [facility] 110 [place] [address] Yossi Landers MD 112 [facility] 110 [place], [place] [address] Social History Tobacco Use Types Packs/Day Years [...] How often do you attend chur or mormonism services? Never 11/12/2022 Do you belong to [...] Recorded Patient Health Questionnaire-2 Score 0 10/07/2024 [facility] of Occupat ional Health - Occupational Stress [...] PM EDT Office Visit [facility] [place] [facility] [address] 110 [place] [address] Yossi Landers MD [address] [facility] 110 [place], [place] [address] documented as of this encounter Visit Diagnoses Not on filedocumented in this encounter Care Teams Train Dispatcher Relationship Specialty Start Date End Date Yossi Landers MD [address] [place] [address] PCP - General Internal Medicine 11/03/22 Yossi Landers MD [address] [facility] 110 [place] [address] PCP - Hum[employer] 11/20/22 Daniela Alvarado LPN [address] [address] 09/09/24 documented as of this encounter
--- OUTSIDE RECORDS SUMMARY | 2025-01-18 07:38 | XMS_ITS | Encounter Summary ---
Author Organization [facility] Address [address] [facility] [place] [address] Care Team Providers Care Promotional Marketing Agent Name Role Phone Yossi Landers MD Primary Care Provider [phone] Yossi Landers MD Unavailable [phone] Seble Mejia RN Unavailable Daniela Alvarado LPN Unavailable Encounter Details Date Type Department Care Team (Late st Contact Info) Description 11/27/2022 Abstract [facility] [place] [facility] 112 [facility] 110 [place] [address] Yossi Landers MD 112 [facility] 110 [place], [place] [address] Social History Tobacco Use Types Packs/Day Years [...] often do you attend chur ch or catholic services? Never 11/12/2022 Do you [...] 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 Not very hard 11/12/2022 [facility] of Occupat ional Health - [...] Visit [facility] [place] [address] [facility] 110 [place] [address] Yossi Landers MD [address] [facility] 110 [place] [address] documented as of this encounter Visit Diagnoses Not on filedocumented in this encounter Care Teams Promotional Marketing Agent Relationship Specialty Start Date End Date Yossi Landers MD [address] [facility] 110 [place] [address] PCP - General Internal Medicine 11/03/22 Yossi Landers MD [address] [facility] 110 [place] [address] PCP - Humana 11/20/22 Seble eMjia RN [address] [place] [address] Clinical [facility] Family [facility] 07/29/24 09/09/24 Daniela Alvarado LPN 112 [place] [address] 09/09/24 documented as of this encounter
--- OUTSIDE RECORDS SUMMARY | 2025-01-18 07:38 | XMS_ITS | Encounter Summary ---
Author Organization [facility] Address [address] [place] [address] Care Team Providers Care Negotiator Name Role Phone Yossi Landers MD Primary Care Provider Yossi Landers MD Unavailable [phone] Seble Mejia RN Unavailable [phone] Daniela Alvarado LPN Unavailable Encounter Details Date Type Department Care Team (Late st Contact Info) Description 12/02/2023 Abstract [facility] [place] [facility] 112 [facility] 110 [place] [address] Yossi Landers MD 112 [facility] 110 [place], [place] [address] Social History Tobacco Use Types Packs/Day Years [...] Score 0 10/12/2023 [facility] ional Health - Occupational [...] Visit [facility] [place] [address] [facility] 110 [place] [address] Yossi Landers MD [address] [facility] 110 [place] [address] documented as of this encounter Visit Diagnoses Not on filedocumented in this encounter Care Teams Negotiator Relationship Specialty Start Date End Date Yossi Landers MD [address] [facility] 110 [place] [address] PCP - General Internal Medicine 11/03/22 Yossi Landers MD [address] [facility] 110 [place] [address] PCP - [employer] 11/20/22 Seble Mejia RN [address] [place] [address] Clinical [facility] 07/29/24 09/09/24 Daniela Alvarado LPN 112 [place] [address] 09/09/24 documented as of this encounter
--- OUTSIDE RECORDS SUMMARY | 2025-01-18 07:38 | XMS_ITS | Encounter Summary ---
Author Organization [facility] Address [address] [facility] [place] [address] Care Team Providers Care Revenue Audit Clerk Name Role Phone Yossi Landers MD Primary Care Provider [phone] Yossi Landers MD Unavailable [phone] Seble Mejia RN Unavailable Daniela Alvarado LPN Unavailable Encounter Details Date Type Department Care Team (Late st Contact Info) Description 11/27/2022 Abstract [facility] [place] [facility] 112 [facility] 110 [place] [address] Yossi Landers MD 112 [facility] 110 [place], [place] [id number] Social History Tobacco Use Types Packs/Day Years [...] often do you attend chur ch or voodoo services? Never 11/12/2022 Do you [...] 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 Not very hard 11/12/2022 [facility] ional [facility] - [...] Visit [facility] [place] [address] [facility] 110 [place] [address] Yossi Landers MD [address] [facility] 110 [place] [address] documented as of this encounter Visit Diagnoses Not on filedocumented in this encounter Care Teams Revenue Audit Clerk Relationship Specialty Start Date End Date Yossi Landers MD [address] [facility] 110 [place] [address] PCP - General Internal Medicine 11/03/22 Yossi Landers MD [address] [facility] 110 [place] [address] PCP - [employer] 11/20/22 Seble Mejia RN [address] [place] [address] Clinical Advocate Family Medicine 07/29/24 09/09/24 Daniela Alvarado LPN 112 [place] [address] 09/09/24 documented as of this encounter
--- OUTSIDE RECORDS SUMMARY | 2025-01-18 07:38 | XMS_ITS | Encounter Summary ---
Author Organization [facility] Address [address] [place] [address] Care Team Providers Care Blanket Maker Name Role Phone Yossi Landers MD Primary Care Provider [phone] Yossi Landers MD Unavailable [phone] Daniela Alvarado LPN Unavailable Encounter Details Date Type Department Care Team (Latest Contact Info) Description 01/16/2025 Travel Social History Tobacco Use Types Packs/Day [...] Recorded Patient Health Questionnaire-2 Score 2 01/16/2025 [facility] Questionnaire Answer Date [...] Sanchez LPN documented as of this encounter Plan of Treatment Upcoming Encounters Date Type Department Care Team (Late st Contact Info) Description 01/30/2025 2:15 PM EDT Office Visit [facility] [place] [address] [facility] 110 [place] [address] Yossi Landers MD [address] [facility] 110 [place] [address] documented as of this encounter Visit Diagnoses Not on filedocumented in this encounter Care Teams Blanket Maker Relationship Specialty Start Date End Date Yossi Landers MD [address] [facility] 110 [place] [address] PCP - General Internal Medicine 11/03/22 Yossi Landers MD [address] [facility] 110 [place] [address] PCP - [employer] 11/20/22 Daniela Alvarado LPN [address] [facility] 110 [place] [address] 09/09/24 documented as of this encounter
--- OUTSIDE RECORDS SUMMARY | 2025-01-18 07:38 | XMS_ITS ---
Author Organization [facility] Address [address] [place] [address] Care Team Providers Care Cleaning Team Member Name Role Phone Yossi Landers MD Primary Care Provider [phone] Yossi Landers MD Unavailable [phone] Daniela Alvarado LPN Unavailable Inpatient Discharge Transitional Care Management (TCM) Status:Closed (Closed) Start date:01/11/2025 Enrollment date:01/12/2025 Enrollment reason:Identified using hospital discharge data End date:01/13/2025 Close reason:Moved to 30 Day Monitoring Program Overview Patient discharged from [facility] on 01/11. Please contact for hospital CINDA and schedulefollow-up appointment within 7-14 days. Continued Care and Services Coordination
--- OUTSIDE RECORDS SUMMARY | 2025-01-18 07:38 | XMS_ITS | Encounter Summary ---
Author Organization [facility] Address [address] [place] [address] Phone Care Team Providers Care Getter Operator Name Role Phone Unavailable Primary Care Provider Unavailabl e Encounter Details Date Type Department Care Team (Late st Contact Info) Description 02/24/2020 Orders Only [facility] [address] [place] [address] Conversion, Onbase Social History Tobacco Use Types [...]
--- OUTSIDE RECORDS SUMMARY | 2025-01-18 07:38 | XMS_ITS | Encounter Summary ---
Author Organization [facility] Address [address] [facility] [place] [address] Care Team Providers Care Oyster Cultivator Name Role Phone Yossi Landers MD Primary Care Provider Yossi Landers MD Unavailable [phone] Seble Mejia RN Unavailable Daniela Alvarado LPN Unavailable Encounter Details Date Type Department Care Team (Late st Contact Info) Description 12/02/2022 Abstract [facility] [place] [facility] 112 [facility] 110 [place] [address] Yossi Landers MD 112 [facility] 110 [place], [place] [address] Social History Tobacco Use Types Packs/Day Years [...] 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 Not very hard 11/12/2022 [facility] Occupat ional Health [...] Visit [facility] [place] [address] [facility] 110 [place] [address] Yossi Landers MD [address] [facility] 110 [place] [address] documented as of this encounter Visit Diagnoses Not on filedocumented in this encounter Care Teams Oyster Cultivator Relationship Specialty Start Date End Date Yossi Landers MD [address] [facility] 110 [place] [address] PCP - General Internal Medicine 11/03/22 Yossi Landers MD [address] [facility] 110 [place] [address] PCP - [employer] 11/20/22 Seble Mejia RN [address] [place] [address] Clinical Advocate Family Medicine 07/29/24 09/09/24 Daniela Alvarado LPN 112 [place] [address] 09/09/24 documented as of this encounter
--- OUTSIDE RECORDS SUMMARY | 2025-01-18 07:38 | XMS_ITS | Encounter Summary ---
Author Organization [facility] Address [address] [facility] [place] [address] Care Team Providers Care Skilled Laborer Name Role Phone Yossi Landers MD Primary Care Provider Yossi Landers MD Unavailable [phone] Seble Mejia RN Unavailable [phone] Daniela Alvarado LPN Unavailable Encounter Details Date Type Department Care Team (Late st Contact Info) Description 12/02/2022 Abstract [facility] [place] [facility] 112 [facility] 110 [place] [address] Yossi Landers MD 112 [facility] 110 [place], [place] [phone] Social History Tobacco Use Types Packs/Day Years [...] often do you attend chur ch or sabianist services? Never 11/12/2022 Do you [...] 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 Not very hard 11/12/2022 [facility] Occupat ional Health - [...] Visit [facility] [place] [address] [facility] 110 [place] [address] Yossi Landers MD [address] [facility] 110 [place] [address] documented as of this encounter Visit Diagnoses Not on filedocumented in this encounter Care Teams Skilled Laborer Relationship Specialty Start Date End Date Yossi Landers MD [address] [facility] 110 [place] [address] PCP - General Internal Medicine 11/03/22 Yossi Landers MD [address] [facility] 110 [place] [address] PCP - [employer] 11/20/22 Seble Mejia RN [address] [place] [address] Clinical Advocate Family Medicine 07/29/24 09/09/24 Daniela Alvarado LPN 112 [place] [address] 09/09/24 documented as of this encounter
--- OUTSIDE RECORDS SUMMARY | 2025-01-18 07:38 | XMS_ITS | Encounter Summary ---
Author Organization [facility] Address [address] [place] [address] Care Team Providers Care Condenser Cleaner Name Role Phone Yossi Landers MD Primary Care Provider Yossi Landers MD Unavailable [phone] Seble Mejia RN Unavailable Daniela Alvarado LPN Unavailable Encounter Details Date Type Department Care Team (Late st Contact Info) Description 10/13/2023 Abstract [facility] [place] [facility] 112 [facility] 110 [place] [address] Yossi Landers MD 112 [facility] 110 [place], [place] [phone] Social History Tobacco Use Types Packs/Day Years [...] Recorded Patient Health Questionnaire-2 Score 0 10/12/2023 [facility] - Occupational [...] [facility] 110 [place] [address] Yossi Landers MD [address] [facility] 110 [place] [address] documented as of this encounter Visit Diagnoses Not on filedocumented in this encounter Care Teams Condenser Cleaner Relationship Specialty Start Date End Date Yossi Landers MD [address] [facility] 110 [place] [address] PCP - General Internal Medicine 11/03/22 Yossi Landers MD [address] [facility] 110 [place] [address] PCP - Hum[employer] 11/20/22 Seble Mejia RN [address] [place] [address] Clinical Advocate Family Medicine 07/29/24 09/09/24 Daniela Alvarado LPN 112 [place] [address] 09/09/24 documented as of this encounter
--- OUTSIDE RECORDS SUMMARY | 2025-01-18 07:38 | XMS_ITS | Encounter Summary ---
Author Organization [facility] Address [address] [place] [address] Care Team Providers Care Cut Off Machine Unloader Name Role Phone Yossi Landers MD Primary Care Provider [phone] Yossi Landers MD Unavailable [phone] Daniela Alvarado LPN Unavailable Encounter Details Date Type Department Care Team (Late st Contact Info) Description 09/22/2024 Abstract [facility] [place] [facility] 112 [facility] 110 [place] [address] Yossi Landers MD 112 [facility] 110 [place], [place] [address] Social History Tobacco Use Types Packs/Day Years [...] Recorded Patient Health Questionnaire-2 Score 2 09/15/2024 [facility] of Occupat ional Health [...] PM EDT Office Visit [facility] [place] [facility] [address] [facility] 110 [place] [address] oYssi Landers MD [address] [facility] 110 [place], [place] [address] documented as of this encounter Visit Diagnoses Not on filedocumented in this encounter Care Teams Cut Off Machine Unloader Relationship Specialty Start Date End Date Yossi Landers MD [address] [facility] [place] [address] PCP - General Internal Medicine 11/03/22 Yossi Landers MD [address] [facility] 110 [place] [address] PCP - Humana 11/20/22 Daniela Alvarado LPN [address] [address] 09/09/24 documented as of this encounter
--- OUTSIDE RECORDS SUMMARY | 2025-01-18 07:38 | XMS_ITS | Encounter Summary ---
Author Organization [facility] Address [address] [facility] [place] [address] Care Team Providers Care Brick Stacker Name Role Phone Yossi Landers MD Primary Care Provider [phone] Yossi Landers MD Unavailable [phone] Seble Mejia RN Unavailable Daniela Alvarado LPN Unavailable Encounter Details Date Type Department Care Team (Late st Contact Info) Description 11/27/2022 Abstract [facility] [place] [facility] 112 [facility] 110 [place] [address] Yossi Landers MD 112 [facility] 110 [place], [place] [address] Social History Tobacco Use Types Packs/Day Years [...] often do you attend chur ch or rastafari services? Never 11/12/2022 Do you belong to any clubs o r organizations such as protestant groups, unions, fraternal or athletic groups, or [...] 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 Not very hard 11/12/2022 [facility] of Occupat ional Health - [...] Visit [facility] [place] [address] [facility] 110 [place] [address] Yossi Landers MD [address] [facility] 110 [place] [address] documented as of this encounter Visit Diagnoses Not on filedocumented in this encounter Care Teams Brick Stacker Relationship Specialty Start Date End Date Yossi Landers MD [address] [facility] 110 [place] [address] PCP - General Internal Medicine 11/03/22 Yossi Landers MD [address] [facility] 110 [place] [address] PCP - Hum[employer] 11/20/22 Seble Mejia RN [address] [place] [address] Clinical Advocate Family Medicine 07/29/24 09/09/24 Daniela Alvarado LPN 112 [place] [address] 09/09/24 documented as of this encounter
--- OUTSIDE RECORDS SUMMARY | 2025-01-18 07:38 | XMS_ITS | Encounter Summary ---
Author Organization [facility] Address [address] [facility] [place] [address] Care Team Providers Care Central Office Trouble Shooter Name Role Phone Yossi Landers MD Primary Care Provider Yossi Landers MD Unavailable [phone] Seble Mejia RN Unavailable [phone] Daniela Alvarado LPN Unavailable Encounter Details Date Type Department Care Team (Late st Contact Info) Description 12/02/2022 Abstract [facility] [place] [facility] 112 [facility] 110 [place] [address] Yossi Landers MD 112 [facility] 110 [place], [place] [address] Social History Tobacco Use Types Packs/Day Years [...] any clubs o r organizations such as rastafari groups, unions, fraternal or athletic groups, or [...] 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 Not very hard 11/12/2022 [facility] of Occupat ional Health - Occupational [...] Visit [facility] [place] [address] [facility] 110 [place] [address] Yossi Landers MD [address] [facility] 110 [place] [address] documented as of this encounter Visit Diagnoses Not on filedocumented in this encounter Care Teams Central Office Trouble Shooter Relationship Specialty Start Date End Date Yossi Landers MD [address] [facility] 110 [place] [address] PCP - General Internal Medicine 11/03/22 Yossi Landers MD [address] [facility] 110 [place] [address] PCP - Hum[employer] 11/20/22 Seble Mejia RN [address] [place] [address] Clinical Advocate Family Medicine 07/29/24 09/09/24 Daniela Alvarado LPN 112 [place] [address] 09/09/24 documented as of this encounter
--- OUTSIDE RECORDS SUMMARY | 2025-01-18 07:38 | XMS_ITS | Encounter Summary ---
Author Organization [facility] Address [address] [facility] [place] [address] Care Team Providers Care Shop Assistant Name Role Phone Yossi Landers MD Primary Care Provider Yossi Landers MD Unavailable [phone] Seble Mejia RN Unavailable Daniela Alvarado LPN Unavailable Encounter Details Date Type Department Care Team (Late st Contact Info) Description 12/02/2022 Abstract [facility] [place] [facility] 112 [facility] 110 [place] [address] Yossi Landers MD 112 [facility] 110 [place], [place] [phone] Social History Tobacco Use Types Packs/Day Years [...] Visit [facility] [place] [address] [facility] 110 [place] [address] Yossi Landers MD [address] [facility] 110 [place] [address] documented as of this encounter Visit Diagnoses Not on filedocumented in this encounter Care Teams Shop Assistant Relationship Specialty Start Date End Date Yossi Landers MD [address] [facility] 110 [place] [address] PCP - General Internal Medicine 11/03/22 Yossi Landers MD [address] [facility] 110 [place] [address] PCP - Humana 11/20/22 Seble Mejia RN [address] [place] [address] Clinical Advocate Family Medicine 07/29/24 09/09/24 Daniela Alvarado LPN 112 [place] [address] 09/09/24 documented as of this encounter
--- OUTSIDE RECORDS SUMMARY | 2025-01-18 07:39 | XMS_ITS | Encounter Summary ---
Author Organization [facility] Address [address] [place] [address] Care Team Providers Care Rod Buster Helper Name Role Phone Yossi Landers MD Primary Care Provider [phone] Yossi Landers MD Unavailable [phone] Seble Mejia RN Unavailable [phone] Daniela Alvarado LPN Unavailable Encounter Details Date Type Department Care Team (Late st Contact Info) Description 11/30/2023 Abstract [facility] [place] [facility] 112 [facility] 110 [place] [address] Yossi Landers MD 112 [facility] 110 [place], [place] [address] Social History Tobacco Use Types Packs/Day Years [...] often do you attend chur ch or orthodoxy services? Never 11/12/2022 Do you belong to [...] Recorded Patient Health Questionnaire-2 Score 0 10/12/2023 [facility] - Occupational Stress Questionnaire [...] [address] [facility] 110 [place] [address] Yossi Landers MD [address] [facility] 110 [place] [address] documented as of this encounter Visit Diagnoses Not on filedocumented in this encounter Care Teams Rod Buster Helper Relationship Specialty Start Date End Date Yossi Landers MD [address] [facility] 110 [place] [address] PCP - General Internal Medicine 11/03/22 Yossi Landers MD [address] [facility] 110 [place] [address] PCP - Hum[employer] 11/20/22 Seble Mejia RN [address] [place] [address] Clinical Advocate Family Medicine 07/29/24 09/09/24 Daniela Alvarado LPN 112 [place] [address] 09/09/24 documented as of this encounter
--- OUTSIDE RECORDS SUMMARY | 2025-01-18 07:39 | XMS_ITS ---
Author Organization [facility] Address [address] [place] [address] Care Team Providers Care Cured Meat Packing Supervisor Name Role Phone Yossi Landers MD Primary Care Provider [phone] Yossi Landers MD Unavailable [phone] Daniela Alvarado LPN Unavailable Chronic Care Management (CCM) Status:Enrolled (Active) Start date:11/06/2022 Enrollment date:11/06/2022 Overview 08/07/23, 2:30 PM - Larathursday, DORINDA- Patient gives verbal consent to be enrolled in CCM Program and understands there could be a bill for this service. Case Team Name Relationship Phone Daniela Alvarado LPN(Responsible Staff) [phone] Continued Care and Services Coordination
--- OUTSIDE RECORDS SUMMARY | 2025-01-18 07:39 | XMS_ITS | Encounter Summary ---
Author Organization [facility] Address [address] [place] [address] Care Team Providers Care Program Admin Name Role Phone Yossi Landers MD Primary Care Provider Yossi Landers MD Unavailable [phone] Daniela Alvarado LPN Unavailable Encounter Details Date Type Department Care Team (Late st Contact Info) Description 09/22/2024 Abstract [facility] [place] [facility] [address] [facility] 110 [place] [address] Yossi Landers MD 112 [facility] 110 [place], [place] [address] Social History Tobacco Use Types Packs/Day Years [...] Recorded Patient Health Questionnaire-2 Score 2 09/15/2024 [facility] of Occupat ional Health [...] PM EDT Office Visit [facility] [place] [facility] [address] [facility] [address] [place] [address] Yossi Landers MD [address] [facility] 110 [place], [place] [address] documented as of this encounter Visit Diagnoses Not on filedocumented in this encounter Care Teams Program Admin Relationship Specialty Start Date End Date Yossi Landers MD [address] [place] [address] PCP - General Internal Medicine 11/03/22 Yossi Landers MD [address] [facility] 110 [place] [address] PCP - Hum[employer] 11/20/22 Daniela Alvarado LPN [address] [address] 09/09/24 documented as of this encounter
--- OUTSIDE RECORDS SUMMARY | 2025-01-18 07:39 | XMS_ITS | Encounter Summary ---
Author Organization [facility] Address [address] [place] [address] Care Team Providers Care Conditioner Tumbler Name Role Phone Yossi Landers MD Primary Care Provider Yossi Landers MD Unavailable [phone] Seble Mejia RN Unavailable Daniela Alvarado LPN Unavailable Encounter Details Date Type Department Care Team (Late st Contact Info) Description 12/02/2023 Abstract [facility] [place] [facility] 112 [facility] 110 [place] [address] Yossi Landers MD 112 [facility] 110 [place], [place] [address] Social History Tobacco Use Types Packs/Day Years [...] any clubs o r organizations such as uatsdin groups, unions, fraternal or athletic groups, or [...] Recorded Patient Health Questionnaire-2 Score 0 10/12/2023 [facility] [...] Visit [facility]S [place] [address] [facility] 110 [place] [address] Yossi Landers MD [address] [facility] 110 [place] [address] documented as of this encounter Visit Diagnoses Not on filedocumented in this encounter Care Teams Conditioner Tumbler Relationship Specialty Start Date End Date Yossi Landers MD [address] [facility] 110 [place] [address] PCP - General Internal Medicine 11/03/22 Yossi Landers MD [address] [facility] 110 [place] [address] PCP - [employer] 11/20/22 Seble Mejia RN [address] [place] [address] Clinical Advocate Family Medicine 07/29/24 09/09/24 Daniela Alvarado LPN 112 [place] [address] 09/09/24 documented as of this encounter
--- OUTSIDE RECORDS SUMMARY | 2025-01-18 07:39 | XMS_ITS | Encounter Summary ---
Author Organization [facility] Address [address] [place] [address] Care Team Providers Care Sander Portable Machine Name Role Phone Yossi Landers MD Primary Care Provider [phone] Yossi Landers MD Unavailable [phone] Seble Mejia RN Unavailable [phone] Daniela Alvarado LPN Unavailable Encounter Details Date Type Department Care Team (Late st Contact Info) Description 11/20/2023 Clinisync Result Encounter [facility] External Department Unsolicited Yossi Landers MD [address] [facility] [address] [place] [address] Social History Tobacco Use Types Packs/Day Years [...] Health Questionnaire-2 Score 0 10/12/2023 [facility] - Occupational [...] PM EDT Office Visit [facility] [address] [facility] [address] [place] [address] Yossi Landers MD [address] [facility] [address] [place] [address] documented as of this encounter Procedures Procedure Name Priority Date/Time Associated Diagnosis Comments XR RIBS LEFT INCLUDE CHEST (MIN 3 VIEWS) 11/20/2023 6:43 AM EDT documented in this encounter Results * XR RIBS LEFT INCLUDE CHEST (MIN 3 VIEWS) (11/20/2023 6:43 AM EDT) Anatomical Region Laterality Modality Radiographic Joanna ging 11/20/2023 6:43 AM EDT Narrative 11/20/2023 6:46 AM EDT The [address] [address] XRay Report Signed Patient: JAQUELIN NORWOOD MR#: [id number] : 1940 Acct:[id number] Age/Sex: 83 / F ADM Date: 11/19/23 Loc: RAD Attending Dr: YOSSI LANDERS Ordering Physician: YOSSI LANDERS Date of Service: 11/19/23 Procedure(s): XR ribs LT min 3V w CXR1V Accession Number(s): [id number] cc: YOSSI LANDERS The [place] [address] Patient Name: JAQUELIN NORWOOD MRN: [facility]:[id number] date: 1940 Sex: F Assigned Patient Location: RAD Current Patient Location: Accession/Order Number: [id number] Exam Date: 11/19/2023 13:28 Report Date: 11/20/2023 [...] Wisam Wagner M.D. Signed By: 11/20/2346 DD/ TD/TT: [employer] Processor: Procedure Note Radiology, Radiologist, MD - 11/20/2023 [place] [address] XRay Report Signed Patient: JAQUELIN NORWOOD JMR#: [id number] : 1940cct:[id number] Age/Sex: 83 / FADM Date: 11/19/23 Loc: RAD Attending Dr: YOSSI LANDERS Ordering Physician: YOSSI LANDERS Date of Service: 11/19/23 Procedure(s): XR ribs LT min 3V w CXR1V Accession Number(s): [id number] cc: YOSSI LANDERS [address] [address] Patient Name: JAQUELIN NORWOOD MRN: [id number] date: 1940 Sex: F Assigned Patient [facility]: [facility] Current Patient Location: Accession/Order Number: [id number] Exam Date: 11/19/2023 13:28 Report Date: 11/20/2023 [...] Wisam Wagner M.D. Signed By:11/20/2346 DD/ TD/TT: [employer] Processor: Yossi Landers MD IMG XR PROCEDURES Final Result documented in this encounter Visit Diagnoses Not on filedocumented in this encounter Care Teams Sander Portable Machine Relationship Specialty Start Date End Date Yossi Landers MD [address] [facility] [address] [place] [address] PCP - General Internal Medicine 11/03/22 Yossi Landers MD [address] [facility] [address] [place] [address] PCP - [employer] 11/20/22 Seble Mejia, RN [address] [place] [address] [facility] 07/29/24 09/09/24 Daniela Alvarado LPN [address] [facility] [address] [place] [address] 09/09/24 documented as of this encounter
[2025-01-18] MEDS: 0.9 % SODIUM CHLORIDE 1,000 ML 999 ML IV (07:47)
--- NOTE | 2025-01-18 07:48 | CT_ITS ---
The [address] [address] Patient Name: ELGIN NORWOOD MRN: [id number] date: 1940 Sex: F Assigned Patient Location: MS Current Patient Location: MS Accession/Order Number: [id number] Exam Date: 01/18/2025 08:33 Report Date: 01/18/2025 08:47 At the request of: STARR MORLEY MD Procedure: CT abdomen pelvis w con CT CHEST, ABDOMEN AND PELVIS WITH INTRAVENOUS CONTRAST: CLINICAL HISTORY: fall COMPARISON: CT abdomen and pelvis 09/30/2024 TECHNIQUE: TECHNIQUE: Spiral images were obtained through the chest, abdomen and pelvis following the administration of IV contrast. This CT exam was performed using one or more following dose reduction techniques: Automated exposure control, adjustment of the mA and/or kV according to patient size, or use of iterative reconstruction technique. FINDINGS: CT chest: Mediastinum:Postsurgical changes involving the thyroid gland with what appears to BE presumed residual tissue seen. Thoracic aorta appears normal in caliber. Pulmonary trunk appears nondilated. No pleural effusion or lymphadenopathy. The esophagus is grossly unremarkable. Lungs:Emphysema. Consolidative changes involving the lower lobes. No pneumothorax or pleural effusion. No suspicious pulmonary nodule. Soft tissues/Bones: Visualized soft tissues demonstrate no acute process. Osseous structures demonstrate degenerative change. CT abdomen and pelvis: Organs:Cholelithiasis. Liver portal vein pancreas and adrenal glands appear unremarkable. Subcentimeter low attenuating lesion involving the spleen too small for accurate characterization. No enhancing renal mass or hydronephrosis. Abdominal aorta appears normal in caliber.[ GI: Stomach demonstrates postsurgical change. Small bowel appears nondilated. Moderate stool burden. There appears to be focal wall thickening in the region of the hepatic flexure without obstruction.[ Pelvis:[Urinary bladder is grossly unremarkable. Uterus has been removed.] Peritoneum/Retroperitoneum:No free air or free fluid or lymphadenopathy.[ Abd wall/Bones:Abdominal wall demonstrates postsurgical change. Osseous structures demonstrate degenerative change.[ CT/CT chest w con IMPRESSION: Consolidative changes involving the lower lobes suggestive of pneumonia. Focal wall thickening in the region of the hepatic flexure without obstruction. Correlation with colonoscopy is recommended. Cholelithiasis. Impression dictated by: Renard Soriano Jr., D.O. 01/18/2025 8:47 AM Dictation Location: [place] [address] Electronically authenticated by: [id number] Y Date: 01/18/2025 08:47
--- NOTE | 2025-01-18 07:48 | CT_ITS ---
The [address] [address] Patient Name: ELGIN NORWOOD MRN: [id number] date: 1940 Sex: F Assigned Patient Location: MS Current Patient Location: MS Accession/Order Number: [id number] Exam Date: 01/18/2025 08:33 Report Date: 01/18/2025 08:47 At the request of: STARR MORLEY MD Procedure: CT abdomen pelvis w con CT CHEST, ABDOMEN AND PELVIS WITH INTRAVENOUS CONTRAST: CLINICAL HISTORY: fall COMPARISON: CT abdomen and pelvis 09/30/2024 TECHNIQUE: TECHNIQUE: Spiral images were obtained through the chest, abdomen and pelvis following the administration of IV contrast. This CT exam was performed using one or more following dose reduction techniques: Automated exposure control, adjustment of the mA and/or kV according to patient size, or use of iterative reconstruction technique. FINDINGS: CT chest: Mediastinum:Postsurgical changes involving the thyroid gland with what appears to BE presumed residual tissue seen. Thoracic aorta appears normal in caliber. Pulmonary trunk appears nondilated. No pleural effusion or lymphadenopathy. The esophagus is grossly unremarkable. Lungs:Emphysema. Consolidative changes involving the lower lobes. No pneumothorax or pleural effusion. No suspicious pulmonary nodule. Soft tissues/Bones: Visualized soft tissues demonstrate no acute process. Osseous structures demonstrate degenerative change. CT abdomen and pelvis: Organs:Cholelithiasis. Liver portal vein pancreas and adrenal glands appear unremarkable. Subcentimeter low attenuating lesion involving the spleen too small for accurate characterization. No enhancing renal mass or hydronephrosis. Abdominal aorta appears normal in caliber.[ GI: Stomach demonstrates postsurgical change. Small bowel appears nondilated. Moderate stool burden. There appears to be focal wall thickening in the region of the hepatic flexure without obstruction.[ Pelvis:[Urinary bladder is grossly unremarkable. Uterus has been removed.] Peritoneum/Retroperitoneum:No free air or free fluid or lymphadenopathy.[ Abd wall/Bones:Abdominal wall demonstrates postsurgical change. Osseous structures demonstrate degenerative change.[ CT/CT abdomen pelvis w con IMPRESSION: Consolidative changes involving the lower lobes suggestive of pneumonia. Focal wall thickening in the region of the hepatic flexure without obstruction. Correlation with colonoscopy is recommended. Cholelithiasis. Impression dictated by: Renard Soriano Jr., D.O. 01/18/2025 8:47 AM Dictation Location: [place] [address] Electronically authenticated by: [id number] Y Date: 01/18/2025 08:47
[2025-01-18 07:56] LABS: Hematocrit 41.6 % (36.0-48.0); Hemoglobin 13.9 g/dL (12.0-16.0); Immature Granulocytes Abs Auto 0.22 10^3/uL (0.00-0.03); Immature Granulocytes Pct Auto 1.1 % (0.0-0.5); Lymphocytes Absolute Auto 2.7 10^3/uL (1.2-3.8); Mean Corpuscular HGB Conc 33.4 g/dL (29.9-35.2); Mean Corpuscular Hemoglobin 31.0 pg (26.7-34.0); Mean Corpuscular Volume 92.9 fL (81.0-99.0); Platelet Count 181 10^3/uL (150-450); Red Blood Count 4.48 10^6/uL (4.20-5.40); White Blood Count 20.4 10^3/uL (4.0-11.0)
[2025-01-18 08:00] LABS: PCO2 VBG 42.0 mmHg (40.0-52.0); pH VBG 7.429 (7.330-7.430)
[2025-01-18 08:09] LABS: INR 0.99; Prothrombin Time 10.5 sec (9.0-11.6)
[2025-01-18 08:22] LABS: Alanine Aminotransferase 25 U/L (14-59); Albumin Globulin Ratio 1.0; Albumin Level 3.3 g/dL (3.4-5.0); Alkaline Phosphatase 82 U/L (46-116); Anion Gap 16.9; Aspartate Amino Transferase 17 U/L (15-37); Blood Urea Nitrogen 20.0 mg/dL (7.0-18.0); Calcium 9.0 mg/dL (8.5-10.1); Carbon Dioxide 25.2 mmol/L (21.0-32.0); Chloride 94 mmol/L (98-107); Estimated GFR (African America >60 (>=60 mL/min/1.73m^2); Estimated GFR (Non-African Ame 51 (>=60 mL/min/1.73m^2); Globulin 3.4 g/dL; Glucose 162 mg/dL (74-106); Lipase 34.0 U/L (16.0-77.0); Magnesium 1.9 mg/dL (1.8-2.4); NT Pro B Type Natriuretic Pept 300.0 pg/mL (<=1800.0); Potassium 3.1 mmol/L (3.5-5.1); Sodium 133 mmol/L (136-145); Total Protein 6.7 g/dL (6.4-8.2)
[2025-01-18 08:27] LABS: Lactate/Lactic Acid 2.6 mmol/L (0.4-2.0)
[2025-01-18] MEDS: MORPHINE SULFATE 2 MG/ML SYRINGE IV ×2 (08:47→10:52)
--- NOTE | 2025-01-18 09:30 | ED.GENADUL1 ---
HPI HPI - General Adult General Chief complaint: Weakness Stated complaint: FALL WEAKNESS Time Seen by Provider: 01/18/25 07:32 Source: patient Mode of arrival: ambulance Limitations: no limitations History of Present Illness HPI narrative: Patient is a 84-year-old female who had a witnessed near syncopal/syncopal event today. Initially EMS stated that patient was found on the ground leaning against the wall with the unwitnessed fall. This is not accurate. When son came, patient's son stated that he was with her the whole time, she was lowered down into a chair, she never fell, never hit the ground, never hit her head. Patient was walking, felt weak. Patient was able to sit down on a chair, and then patient had a syncopal episode when she sat on the chair. However, when EMS arrived, patient's son was not at bedside. Patient was placed in a cervical collar secondary to Nexus criteria and to err on the side of caution. Patient had a known headache. She did have left lower neck pain. Patient also complaining of left lower chest pain and left lower abdominal pain. Patient has no chest heaviness or tightness, patient states he was sharp left-sided chest pain. No nausea or vomiting. No diarrhea. Patient lives at home with son. All systems are negative except as noted/marked. All systems reviewed and otherwise negative. Nurses note and vital signs reviewed and patient is not hypoxic. General: The patient appears well and in no apparent distress. Patient is resting comfortably on cart. Patient is not toxic, lethargic, or listless Skin: Warm, dry, no pallor noted. There is no rash noted. No petechiae, purpura. Head: Normocephalic, atraumatic; patient was placed in a cervical collar secondary to Nexus criteria, err on the side of caution. Eye: Normal conjunctiva, no drainage, EOMI. PERRL Ears, Nose, Mouth, and Throat: oral mucosa is dry Nares patent. Mouth without vesicles. Cardiovascular: Regular Rate and Rhythm, no murmur, gallop, rub Respiratory: Patient is in no distress, no accessory muscle use, lungs are clear to auscultation, no wheezing, rales or rhonchi Back: non-tender, no CVA tenderness bilaterally to percussion. No CT LS midline pain GI: no tenderness to palpation, no masses appreciated. No rebound, guarding, or rigidity noted. No distention Musculoskeletal: Patient has full range of motion of all of the extremities, no motor, sensory, or focal neurological deficits Neurological: A&O x3, normal speech Psychiatric: Cooperative, alert and oriented x 3 Related Data Home Medications ?Medication ?Instructions ?Recorded ?Confirmed aspirin 81 mg chewable tablet 81 mg PO DAILY 08/02/23 01/18/25 ([place] Chewable Low Dose Aspirin) carvedilol 12.5 mg tablet 12.5 mg PO Q12H 08/02/23 01/18/25 duloxetine 60 mg capsule,delayed 60 mg PO DAILY 08/02/23 01/18/25 release gabapentin 100 mg capsule 200 mg PO Q12H 08/02/23 01/18/25 loratadine 10 mg tablet 10 mg PO DAILY 08/02/23 01/18/25 levothyroxine 100 mcg tablet 100 mcg PO .ACB 08/03/23 01/18/25 lisinopril 5 mg tablet 5 mg PO DAILY 08/13/24 01/18/25 famotidine 20 mg tablet 20 mg PO DAILY 09/30/24 01/18/25 atorvastatin 40 mg tablet 40 mg PO DAILY 01/09/25 01/18/25 memantine 10 mg tablet 10 mg PO BID 01/09/25 01/18/25 omeprazole 40 mg capsule,delayed 40 mg PO .qd 01/09/25 01/18/25 release albuterol sulfate 2.5 mg/3 mL 2.5 mg inhalation Q8H PRN 01/18/25 01/18/25 (0.083 %) solution for nebulization shortness of breath or wheezing bupropion HCl 150 mg 24 hr tablet, 150 mg PO DAILY 01/18/25 01/18/25 extended release Previous Rx's ?Medication ?Instructions ?Recorded alprazolam 0.25 mg tablet 0.25 mg PO TID PRN anxiety #0 tabs 01/11/25 prednisone 10 mg tablet See Rx Instructions .Route 01/11/25 .COMPLEX #21 tabs torsemide 10 mg tablet 15 mg (1.5 x 10 mg) PO DAILY #0 01/11/25 tabs Allergies Allergy/AdvReac Type Severity Reaction Status Date / Time rofecoxib (From Vioxx) Allergy Severe Unknown Verified 08/13/24 14:24 naproxen (From Aleve) Allergy Intermediate Unknown Verified 08/13/24 14:24 Opioid HPI Opioid Management Most Recent Opioid Data: Last Pain Scale 5 Today, 15:46 Last Pain Intensity 0 10/03/24, 13:22 Last Pain Assessment Today, 12:49 Last MAR Pain Assessment Today, 08:47 Last ORT Total Score 1 Today, 12:09 Last ORT Risk Category Low Risk Today, 12:09 PFSH PFSH Medical History (Updated 01/18/25 @ 11:50 by Mandi Murillo MD) Nausea & vomiting ?R11.2 - Nausea with vomiting, unspecified (ICD-10) Constipation by delayed colonic transit ?K59.01 - Slow transit constipation (ICD-10) Generalized weakness ?R53.1 - Weakness (ICD-10) Pneumonia ?J18.9 - Pneumonia, unspecified organism (ICD-10) CAD (coronary artery disease) ?I25.10 - Atherosclerotic heart disease of [place] coronary artery without angina pectoris (ICD-10) Type 2 diabetes mellitus with hyperglycemia ?E11.65 - Type 2 diabetes mellitus with hyperglycemia (ICD-10) Degenerative lumbar spinal stenosis ?M48.061 - Spinal stenosis, lumbar region without neurogenic claudication (ICD-10) Chronic heart failure with preserved ejection fraction (HFpEF) ?I50.32 - Chronic diastolic (congestive) heart failure (ICD-10) HTN (hypertension) ?I10 - Essential (primary) hypertension (ICD-10) COPD (chronic obstructive pulmonary disease) ?J44.9 - Chronic obstructive pulmonary disease, unspecified (ICD-10) Primary osteoarthritis of right hip ?M16.11 - Unilateral primary osteoarthritis, right hip (ICD-10) Abdominal bloating ?R14.0 - Abdominal distension (gaseous) (ICD-10) Anxiety ?F41.9 - Anxiety disorder, unspecified (ICD-10) COPD exacerbation ?J44.1 - Chronic obstructive pulmonary disease with (acute) exacerbation (ICD-10) Acute costochondritis ?M94.0 - Chondrocostal junction syndrome [[place]] (ICD-10) Fall ?W19.XXXA - Unspecified fall, initial encounter (ICD-10) Contusion of rib on right side ?S20.211A - Contusion of right front wall of thorax, initial encounter (ICD-10) Contusion of knee, left ?S80.02XA - Contusion of left knee, initial encounter (ICD-10) Constipation ?K59.00 - Constipation, unspecified (ICD-10) Chest wall pain ?R07.89 - Other chest pain (ICD-10) Abdominal pain ?R10.9 - Unspecified abdominal pain (ICD-10) No problem, feared complaint unfounded ?Z71.1 - Person with feared health complaint in whom no diagnosis is made (ICD-10) Grief reaction ?F43.21 - Adjustment disorder with depressed mood (ICD-10) Dehydration ?E86.0 - Dehydration (ICD-10) Head injury ?S09.90XA - Unspecified injury of head, initial encounter (ICD-10) COPD exacerbation ?J44.1 - Chronic obstructive pulmonary disease with (acute) exacerbation (ICD-10) Nausea ?R11.0 - Nausea (ICD-10) Hypothyroidism ?E03.9 - Hypothyroidism, unspecified (ICD-10) HLD (hyperlipidemia) ?E78.5 - Hyperlipidemia, unspecified (ICD-10) Insufficient home care support ?Z74.2 - Need for assistance at home and no other household member able to render care (ICD-10) Muscular deconditioning ?R29.898 - Other symptoms and signs involving the musculoskeletal system (ICD-10) CHF (congestive heart failure) ?I50.9 - Heart failure, unspecified (ICD-10) Surgical History H/O hysterectomy for benign disease ?Z90.710 - Acquired absence of both cervix and uterus (ICD-10) Previous back surgery ?Z98.890 - Other specified postprocedural states (ICD-10) H/O hernia repair ?Z98.890 - Other specified postprocedural states (ICD-10) ?Z87.19 - Personal history of other diseases of the digestive system (ICD-10) Family History Mother Family history of cancer Sister Family history of diabetes mellitus Social History Within the past year, how often did you have a drink containing alcohol: never Score interpretation: A score less than 3 is consistent with normal alcohol consumption. 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 Known occupational exposures/hazards: No Highest level of school completed/degree received: 7th grade In a typical week, how many times do you talk on the telephone with family, friends, or neighbors: twice per week How often do you get together with friends or relatives: twice per week How often do you attend alevism or adventist services: never Little interest or pleasure in doing things: not at all Feeling down, depressed, or hopeless: not at all Feel stressed/tense/nervous/anxious/difficulty sleeping: not at all Exam Constitutional Vital Signs, click to edit/add: Last Vital Signs Temp 98 F 01/18/25 15:24 Pulse 76 01/18/25 20:00 Resp 20 01/18/25 19:34 BP 111/75 01/18/25 15:24 Pulse Ox 94 L 01/18/25 19:34 O2 Del Method Nasal Cannula 01/18/25 19:34 O2 Flow Rate 2 01/18/25 19:34 Course Vital Signs Vital signs: Vital Signs Temperature 98.1 F 01/18/25 07:36 Pulse Rate 89 01/18/25 07:36 Respiratory Rate 18 01/18/25 07:36 Blood Pressure 110/56 01/18/25 07:36 Pulse Oximetry 96 01/18/25 07:36 Oxygen Delivery Method Room Air 01/18/25 07:36 Temperature 98 F 01/18/25 15:24 Pulse Rate 76 01/18/25 20:00 Respiratory Rate 20 01/18/25 19:34 Blood Pressure 111/75 01/18/25 15:24 Pulse Oximetry 94 L 01/18/25 19:34 Oxygen Delivery Method Nasal Cannula 01/18/25 19:34 Oxygen Delivery Flow Rate 2 01/18/25 19:34 Medical Decision Making [facility] Narrative Medical decision making narrative: Patient seen and examined: Patient had a change in mental status, unwitnessed fall, extensive workup Differential diagnosis includes but is not limited to: Closed head injury, cervical fracture, cervical pain, MO, pneumothorax, pneumonia, cholecystitis, UTI, electrolyte abnormality, dehydration, mesenteric edema, rib fracture Diagnostics and management: Patient will have laboratory studies Relevant laboratory interpretation: Patient has a white blood cell count of 20, pH 7.42. Sodium 133, potassium 3.1. Chloride 94. BUN/creatinine 20/1.03. Lactic acid initially 2.6 Radiological studies: Please see the formal radiological report. Reevaluation: CT of the chest shows lower lobe consolidation, suggestive of pneumonia. 0940 Urine sample was collected, urine was sent to the lab. Shared decision making: I discussed with the patient the necessary laboratory findings and radiological findings. I discussed this with the son as well. Social barriers to healthcare: There are no food insecurities, there is no issue with transportation, there are no insurance barriers. Disposition: I discussed with the patien findings of CT of the chest, abdomen, pelvis, along with electrolyte abnormalities. Patient will be given oral potassium to drink. Patient has been given 1 L of fluid and also receiving maintenance fluids. Patient will be admitted to [facility] telemetry for syncope, pneumonia, UTI, hypokalemia, dehydration. Lactic acid was 2.6. Patient was started on Levaquin. Patient's urine shows no signs of infection. Patient will be admitted for further treatment. 2 sons at bedside, education and updates have been done several times with patient's sons, no questions at admission. They agree with admission as this patient. Patient feels slightly better after IV fluids, patient was given a second dose of morphine for pain. Lab Data Lab results reviewed: Yes I reviewed the patient's lab results Labs: Lab Results 01/18/25 01/18/25 01/18/25 Range/Units 07:47 09:40 10:39 WBC 20.4 H (4.0-11.0) 10^3/uL RBC 4.48 (4.20-5.40) 10^6/uL Hgb 13.9 (12.0-16.0) g/dL Hct 41.6 (36.0-48.0) % MCV 92.9 (81.0-99.0) fL MCH 31.0 (26.7-34.0) pg MCHC 33.4 (29.9-35.2) g/dL RDW 13.1 (11.0-15.0) % Plt Count 181 (150-450) 10^3/uL MPV 10.6 (9.5-13.5) fL Neut % (Auto) 78.4 H (43.0-75.0) % Lymph % (Auto) 13.3 L (20.5-60.0) % Iron % (Auto) 6.9 (1.7-12.0) % Eos % (Auto) 0.2 L (0.9-7.0) % Baso % (Auto) 0.1 L (0.2-2.0) % Neut # (Auto) 16.0 H (1.4-6.5) 10^3/uL Lymph # (Auto) 2.7 (1.2-3.8) 10^3/uL Iron # (Auto) 1.4 H (0.3-0.8) 10^3/uL Eos # (Auto) 0.1 (0.0-0.7) 10^3/uL Baso # (Auto) 0.0 (0.0-0.1) 10^3/uL Abs Immat Gran (auto) 0.22 H (0.00-0.03) 10^3/uL Imm/Tot Granulo (auto) 1.1 H (0.0-0.5) % PT 10.5 (9.0-11.6) sec INR 0.99 VBG pH 7.429 (7.330-7.430) VBG pCO2 42.0 (40.0-52.0) mmHg Sodium 133 L (136-145) mmol/L Potassium 3.1 L (3.5-5.1) mmol/L Chloride 94 L (98-107) mmol/L Carbon Dioxide 25.2 (21.0-32.0) mmol/L Anion Gap 16.9 BUN 20.0 H (7.0-18.0) mg/dL Creatinine 1.03 H (0.55-1.02) mg/dL Est GFR ( Amer) >60 (>=60 mL/min/1.73m^2) Est GFR (Non-Af Amer) 51 L (>=60 mL/min/1.73m^2) BUN/Creatinine Ratio 19.4 Glucose 162 H (74-106) mg/dL Lactate 2.6 H* 1.6 (0.4-2.0) mmol/L Calcium 9.0 (8.5-10.1) mg/dL Magnesium 1.9 (1.8-2.4) mg/dL Total Bilirubin 1.2 H (0.2-1.0) mg/dL AST 17 (15-37) U/L ALT 25 (14-59) U/L Alkaline Phosphatase 82 (46-116) U/L Troponin I High Sens 9.9 (4.0-51.3) pg/mL NT-Pro-B Natriuret Pep 300.0 (<=1800.0) pg/mL Total Protein 6.7 (6.4-8.2) g/dL Albumin 3.3 L (3.4-5.0) g/dL Globulin 3.4 g/dL Albumin/Globulin Ratio 1.0 Lipase 34.0 (16.0-77.0) U/L Urine Color Lt. yellow (YELLOW) Urine Clarity Clear (CLEAR) Urine pH 6.0 (5.0-9.0) Ur Specific [place] <=1.005 A (1.005-1.025) Urine Protein Negative (NEG/TRACE) mg/dL Urine Glucose (UA) Negative (NEGATIVE) mg/dL Urine Ketones Negative (NEGATIVE) mg/dL Urine Occult Blood Negative (NEGATIVE) Urine Nitrite Negative (NEGATIVE) Urine Bilirubin Negative (NEGATIVE) Urine Urobilinogen 1.0 (0.2-1.0) EU/dL Ur Leukocyte Esterase Negative (NEGATIVE) Urine RBC 0-2 (0-2) #/HPF Urine WBC 0-2 A (NONE SEEN) #/HPF Ur Squamous Epith Cells Rare (NONE/RARE) #/LPF Urine Crystals None seen (None Seen) #/HPF Urine Bacteria None seen (NONE SEEN) #/HPF Urine Casts None seen (NONE SEEN) #/LPF Urine Mucus None seen (NONE SEEN) Ur Culture Indicated? No ECG Data Attestation: I personally reviewed and interpreted this ECG as follows: (EKG interpretation. Normal sinus rhythm at 89 beats a minute. Normal axis deviation. No acute ST elevation, no acute ectopy. Artifact seen. QTc of 381) Discharge Plan Discharge Chief Complaint: Weakness Clinical Impression: Episode of syncope, Pneumonia, Hypokalemia, Dehydration, Leukocytosis Patient Disposition: Admitted as Observation Time of Disposition Decision: 09:48 Condition: Fair Discharge Date/Time: 01/18/25 11:55
[2025-01-18 09:44] LABS: Glucose Urine UA NEGATIVE (NEGATIVE)
[2025-01-18 10:01] LABS: Cast Seen? NONE SEEN #/LPF (NONE SEEN); Crystals Seen? None Seen #/HPF (None Seen); Urine Culture Indicated NO
[2025-01-18] MEDS: LEVOFLOXACIN IN DEXTROSE 5 % 750 MG/150 ML PREMIX 100 MG IV (10:51)
[2025-01-18] MEDS: 0.9 % SODIUM CHLORIDE 1,000 ML 125 ML IV (10:51)
[2025-01-18 11:01] LABS: Lactate/Lactic Acid 1.6 mmol/L (0.4-2.0)
--- NOTE | 2025-01-18 11:35 | PM.IMHP1 ---
Internal Medicine - H&P: HPI History of Present Illness Chief complaint: FALL WEAKNESS Narrative: This is 84-year-old female with past medical history of CAD, type 2 diabetes, degenerative lumbar spinal stenosis, hypertension, COPD, osteoarthritis of the right hip, anxiety hypothyroidism, dyslipidemia, debility, CHF, obesity, constipation, generalized weakness who was just here around a week ago for acute hypoxic respiratory failure in the setting of CHF exacerbation and COPD exacerbation, here today for syncope. History obtained from the patient, patient's son at bedside as well as from the ED and chart review. As per her son who lives with her him and his , he states that his mom was doing better after last hospital discharge was seen by her PCP 2 days ago and was told that she is feeling better and doing better. Today she woke up having a cough this morning, told her son that she feels tired and fatigued, the cough was productive of yellowish sputum, while her son was trying to walk her from the room to the bathroom she told them that she is about to pass out, the patient actually had episode of syncope, where she passed out and became unresponsive however her son helped her go on a chair and assures to me that she did not fall or hit her head or neck. Wants to wait in the chair patient continues to slump over and continue to be incoherent and less responsive until EMS came. Patient's son denies any drooling of saliva or a pulling of the eyes or urinary or fecal incontinence. Patient denies any diarrhea or nausea or vomiting. When I saw the patient was oriented x 3 obviously appearing ill. Not in acute distress. Patient was sent on prednisone and her discharge. In the ED, patient's vital signs were stable including her heart rate, temperature, blood pressure as well as respiratory rate and oxygen saturation on room air of 92 to 95%. Work of breathing is the same as I know her from before. CT cervical spine without contrast showed no cervical spine fracture. Chest x-ray was negative for acute pathology. CT head was negative for any acute intracranial normality. CT abdomen pelvis and chest with contrast showed consolidative changes involving the lower lobe suggestive of pneumonia. Focal wall thickening in the region of the hepatic flexure without obstruction correlation with colonoscopy is recommended. Cholelithiasis. Labs showed leukocytosis on her CBC. CMP showed hypokalemia of 3.1 with a slight bump in the creatinine of 1.03 from 0.83. Throat: X 1 was negative and EKG did not show any acute ischemic changes. Patient to be admitted under hospitalist service after receiving 1 dose of IV Levaquin in the ED Review of Systems ROS Status of ROS 10 or more systems reviewed and unremarkable except as noted in history and below [facility] Medical History (Updated 01/18/25 @ 11:50 by Mandi Murillo MD) Nausea & vomiting ?R11.2 - Nausea with vomiting, unspecified (ICD-10) Constipation by delayed colonic transit ?K59.01 - Slow transit constipation (ICD-10) Generalized weakness ?R53.1 - Weakness (ICD-10) Pneumonia ?J18.9 - Pneumonia, unspecified organism (ICD-10) CAD (coronary artery disease) ?I25.10 - Atherosclerotic heart disease of [place] coronary artery without angina pectoris (ICD-10) Type 2 diabetes mellitus with hyperglycemia ?E11.65 - Type 2 diabetes mellitus with hyperglycemia (ICD-10) Degenerative lumbar spinal stenosis ?M48.061 - Spinal stenosis, lumbar region without neurogenic claudication (ICD-10) Chronic heart failure with preserved ejection fraction (HFpEF) ?I50.32 - Chronic diastolic (congestive) heart failure (ICD-10) HTN (hypertension) ?I10 - Essential (primary) hypertension (ICD-10) COPD (chronic obstructive pulmonary disease) ?J44.9 - Chronic obstructive pulmonary disease, unspecified (ICD-10) Primary osteoarthritis of right hip ?M16.11 - Unilateral primary osteoarthritis, right hip (ICD-10) Abdominal bloating ?R14.0 - Abdominal distension (gaseous) (ICD-10) Anxiety ?F41.9 - Anxiety disorder, unspecified (ICD-10) COPD exacerbation ?J44.1 - Chronic obstructive pulmonary disease with (acute) exacerbation (ICD-10) Acute costochondritis ?M94.0 - Chondrocostal junction syndrome [[place]ietze] (ICD-10) Fall ?W19.XXXA - Unspecified fall, initial encounter (ICD-10) Contusion of rib on right side ?S20.211A - Contusion of right front wall of thorax, initial encounter (ICD-10) Contusion of knee, left ?S80.02XA - Contusion of left knee, initial encounter (ICD-10) Constipation ?K59.00 - Constipation, unspecified (ICD-10) Chest wall pain ?R07.89 - Other chest pain (ICD-10) Abdominal pain ?R10.9 - Unspecified abdominal pain (ICD-10) No problem, feared complaint unfounded ?Z71.1 - Person with feared health complaint in whom no diagnosis is made (ICD-10) Grief reaction ?F43.21 - Adjustment disorder with depressed mood (ICD-10) Dehydration ?E86.0 - Dehydration (ICD-10) Head injury ?S09.90XA - Unspecified injury of head, initial encounter (ICD-10) COPD exacerbation ?J44.1 - Chronic obstructive pulmonary disease with (acute) exacerbation (ICD-10) Nausea ?R11.0 - Nausea (ICD-10) Hypothyroidism ?E03.9 - Hypothyroidism, unspecified (ICD-10) HLD (hyperlipidemia) ?E78.5 - Hyperlipidemia, unspecified (ICD-10) Insufficient home care support ?Z74.2 - Need for assistance at home and no other household member able to render care (ICD-10) Muscular deconditioning ?R29.898 - Other symptoms and signs involving the musculoskeletal system (ICD-10) CHF (congestive heart failure) ?I50.9 - Heart failure, unspecified (ICD-10) Surgical History H/O hysterectomy for benign disease ?Z90.710 - Acquired absence of both cervix and uterus (ICD-10) Previous back surgery ?Z98.890 - Other specified postprocedural states (ICD-10) H/O hernia repair ?Z98.890 - Other specified postprocedural states (ICD-10) ?Z87.19 - Personal history of other diseases of the digestive system (ICD-10) Family History Mother Family history of cancer Sister Family history of diabetes mellitus Social History Within the past year, how often did you have a drink containing alcohol: never Score interpretation: A score less than 3 is consistent with normal alcohol consumption. 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 Known occupational exposures/hazards: No Highest level of school completed/degree received: 7th grade In a typical week, how many times do you talk on the telephone with family, friends, or neighbors: twice per week How often do you get together with friends or relatives: twice per week How often do you attend protestant or anabaptism services: never Little interest or pleasure in doing things: not at all Feeling down, depressed, or hopeless: not at all Feel stressed/tense/nervous/anxious/difficulty sleeping: not at all Meds Home Medications and Allergies Home Medications ?Medication ?Instructions ?Recorded ?Confirmed ?Type aspirin 81 mg chewable tablet 81 mg PO DAILY 08/02/23 01/18/25 History ([place] Chewable Low Dose Aspirin) carvedilol 12.5 mg tablet 12.5 mg PO Q12H 08/02/23 01/18/25 History duloxetine 60 mg capsule,delayed 60 mg PO DAILY 08/02/23 01/18/25 History release gabapentin 100 mg capsule 200 mg PO Q12H 08/02/23 01/18/25 History loratadine 10 mg tablet 10 mg PO DAILY 08/02/23 01/18/25 History levothyroxine 100 mcg tablet 100 mcg PO .ACB 08/03/23 01/18/25 History lisinopril 5 mg tablet 5 mg PO DAILY 08/13/24 01/18/25 History famotidine 20 mg tablet 20 mg PO DAILY 09/30/24 01/18/25 History atorvastatin 40 mg tablet 40 mg PO DAILY 01/09/25 01/18/25 History memantine 10 mg tablet 10 mg PO BID 01/09/25 01/18/25 History omeprazole 40 mg capsule,delayed 40 mg PO .qd 01/09/25 01/18/25 History release alprazolam 0.25 mg tablet 0.25 mg PO TID PRN anxiety #0 tabs 01/11/25 01/18/25 Rx prednisone 10 mg tablet See Rx Instructions .Route 01/11/25 01/18/25 Rx .COMPLEX #21 tabs torsemide 10 mg tablet 15 mg (1.5 x 10 mg) PO DAILY #0 01/11/25 01/18/25 Rx tabs albuterol sulfate 2.5 mg/3 mL 2.5 mg inhalation Q8H PRN 01/18/25 01/18/25 History (0.083 %) solution for nebulization shortness of breath or wheezing bupropion HCl 150 mg 24 hr tablet, 150 mg PO DAILY 01/18/25 01/18/25 History extended release Allergies Allergy/AdvReac Type Severity Reaction Status Date / Time rofecoxib (From Vioxx) Allergy Severe Unknown Verified 08/13/24 14:24 naproxen (From Aleve) Allergy Intermediate Unknown Verified 08/13/24 14:24 Exam Narrative Exam Narrative: General: She is frail and ill-appearing. Not in acute distress. At baseline mental status. Patient is resting comfortably on cart. Following commands. Cooperative. Skin: Warm, dry, no pallor noted. There is no rash noted. No petechiae, purpura. Head: Normocephalic, atraumatic; patient was placed in a cervical collar secondary to Nexus criteria, err on the side of caution. Eye: Normal conjunctiva, no drainage, EOMI. PERRL Ears, Nose, Mouth, and Throat: oral mucosa is dry Nares patent. Mouth without vesicles. Cardiovascular: Regular Rate and Rhythm, no murmur, gallop, rub Respiratory: Decreased bilateral air entry with bibasilar crackles, no wheezes, patient is not using product lister muscles her work of breathing is a little increased which is at baseline compared to her previous admissions and according to her son's history and to my knowledge of the patient. No use of abdominal wall muscles. Patient does not have JVD Back: non-tender, no CVA tenderness bilaterally to percussion. No CT LS midline pain GI: no tenderness to palpation, no masses appreciated. No rebound, guarding, or rigidity noted. No distention Musculoskeletal: Patient has full range of motion of all of the extremities, no motor, sensory, or focal neurological deficits Neurological: A&O x3, normal speech, generalized weakness but no new focal motor or sensory deficits Constitutional Vital Signs, click to edit/add: Last Vital Signs Temp 98.1 F 01/18/25 07:36 Pulse 79 01/18/25 09:50 Resp 13 01/18/25 09:50 BP 107/72 01/18/25 08:46 Pulse Ox 95 01/18/25 09:50 O2 Del Method Room Air 01/18/25 07:36 Internal Medicine - H&P: Reslt Labs Labs: Short CBC 01/18/25 Range/Units 07:47 WBC 20.4 H (4.0-11.0) 10^3/uL Hgb 13.9 (12.0-16.0) g/dL Hct 41.6 (36.0-48.0) % Plt Count 181 (150-450) 10^3/uL BMP 01/18/25 07:47 Sodium 133 L Potassium 3.1 L Chloride 94 L Carbon Dioxide 25.2 BUN 20.0 H Creatinine 1.03 H Glucose 162 H Calcium 9.0 Liver Function 01/18/25 Range/Units 07:47 Total Bilirubin 1.2 H (0.2-1.0) mg/dL AST 17 (15-37) U/L ALT 25 (14-59) U/L Alkaline Phosphatase 82 (46-116) U/L Albumin 3.3 L (3.4-5.0) g/dL Urine 01/18/25 Range/Units 09:40 Urine Color Lt. yellow (YELLOW) Urine Clarity Clear (CLEAR) Urine pH 6.0 (5.0-9.0) Ur Specific Dan[place] <=1.005 A (1.005-1.025) Urine Protein Negative (NEG/TRACE) mg/dL Urine Glucose (UA) Negative (NEGATIVE) mg/dL Assessment and Plan Assessment and Plan (1) Sepsis: (2) Syncope and collapse: (3) Dehydration: (4) Hypokalemia: (5) Pneumonia: Plan Syncope in the setting of dehydration and sepsis due to bilateral pneumonia, will cover Pseudomonas given recent hospitalization Mild JONE in the setting of dehydration Debility and frailty with multiple admissions, may need placement or higher level of care History of diastolic CHF and COPD with recent admission for exacerbation - Admit patient to medical floor with telemetry -Start IV Zosyn, to be dosed by pharmacy -Start doxycycline 100 mg IV BID -Obtain sputum culture -Obtain RSV, COVID, and flu -SENIOR JAVASCRIPT DEVELOPER eval -PT/OT eval -DNRCCA without intubation, discussed the plan and goals of care with pt and son. Answered all their questions -I reconciled her medications, holding lisinopril given her mild JONE -DVT and GI PPx addressed -Aspiration precautions
[2025-01-18 12:50] LABS: SARS-CoV-2 Ag NEGATIVE (NEGATIVE)
[2025-01-18 12:58] LABS: NT Pro B Type Natriuretic Pept 295.0 pg/mL (<=1800.0)
[2025-01-18] MEDS: ALPRAZOLAM 0.25 MG TABLET PO (13:17)
[2025-01-18] MEDS: GABAPENTIN 100 MG CAPSULE 200 MG PO ×2 (13:18→22:07)
[2025-01-18] MEDS: CARVEDILOL 12.5 MG TABLET PO ×2 (13:18→22:09)
[2025-01-18] MEDS: BENZONATATE 100 MG CAPSULE 200 MG PO (13:18)
[2025-01-18] MEDS: DOXYCYCLINE HYCLATE 100 MG in 0.9 % SODIUM CHLORIDE 100 ML IV (13:19)
--- NOTE | 2025-01-18 14:07 | SWNOTE1 ---
DEVEN and I stopped in pt's room. Pt's son was at bedside. I asked son what happened between now and pt's last time in hospital, he voiced she has pneumonia now. He also voiced that she had an episode where he had to lower pt to a chair. Pt was also set up with [facility] at last d/c. Pt's son voiced the family let them know the pt was going to the hospital today. DEVEN to send updates to [facility]. DEVEN to follow pt as needed.
--- NOTE | 2025-01-18 14:10 | SWNOTE1 ---
Important Message from [employer] reviewed and discussed with patient's son. Pt's son verbalized understanding and signed the form. Original given to patient's son and copy placed in patient?s chart.
--- NOTE | 2025-01-18 14:12 | SWNOTE1 ---
Pt does have speech therapy eval ordered. Nurse voiced that she is unsure if speech is able to come over today and there is no diet ordered. SW called over to outpt therapy and the refuge worker voiced that Cherelle is on her way over now to complete speech eval. SW notified nurse.
[2025-01-18] MEDS: PIPERACILLIN SODIUM/TAZOBACTAM 3.375 GM in 0.9 % SODIUM CHLORIDE 50 ML IV ×2 (14:34→22:10)
[2025-01-18] MEDS: ACETAMINOPHEN 325 MG TABLET 650 MG PO (15:31)
--- NOTE | 2025-01-18 19:31 | XR_ITS ---
[facility] [place] [id number] Patient Name: ELGIN NORWOOD MRN: [id number] date: 1940 Sex: F Assigned Patient Location: [place] Current Patient Location: [place] Accession/Order Number: [id number] Exam Date: 01/18/2025 20:10 Report Date: 01/18/2025 20:11 At the request of: DREW PAREKH MD Procedure: XR chest 1V PA CHEST: CLINICAL HISTORY: Hypoxia COMPARISON: CT chest 01/18/2025 Mildly enlarged cardiomediastinal. Bibasilar airspace disease. No effusion or pneumothorax. XR/XR chest 1V IMPRESSION: Mild bibasilar airspace disease.. Impression dictated by: Liam Verdugo M.D. 01/18/2025 8:11 PM Dictation Location: [place] [address] Electronically authenticated by: [id number] Y Date: 01/18/2025 20:11
[2025-01-18] MEDS: ALBUTEROL SULFATE 2.5 MG/3 ML VIAL NEB IH (19:33)
[2025-01-18 19:50] LABS: ABG PCO2 28.6 mmHg (35.0-45.0); HCO3 ABG 25.0 mmol/L (22.0-26.0); Oxygen Saturation ABG 96.6 %; PO2 ABG 70.1 mmHg (80.0-100.0)
[2025-01-18 19:51] LABS: Allen Test POSITIVE (POSITIVE); Liters per Minute 2; O2 Mode NC; Puncture Site RR
--- NOTE | 2025-01-18 20:28 | PC.NURSE ---
1915 nurse in to room to check on distressed patient. patient states hard to breath , nurse listens to lungs- diminished, pulse ox was 88% on room air. 192 patient in respiratory distress, lethargic, mumbling, incoherent. vital signs were 113/56, 22-24 breathes per minute, 85 % on room air, 98.2 temp. nurse applies oxygen at 2 liters through nasal cannula and oxygen goes up to 95%. 1929 RT giving breathing treatment, hospitalists updated. 1931 RT to bedside. patient finished breathing treatment. patient's breathing is improved, wheezing heard on left side.
[2025-01-18] MEDS: METHYLPREDNISOLONE SOD SUCC PF 125 MG/2 ML VIAL 100 MG IVP (22:07)
[2025-01-18] MEDS: MORPHINE SULFATE 2 MG/ML SYRINGE INJ (22:08)
[2025-01-18] MEDS: MEMANTINE HCL 28 MG CAP XR PO (22:09)
[2025-01-18] MEDS: HEPARIN SODIUM (PORCINE) 5,000 UNIT/ML VIAL 5000 UNIT SUBQ (22:09)
[2025-01-18] MEDS: IPRATROPIUM/ALBUTEROL SULFATE 3 ML AMPUL.NEB IH (23:59)
[2025-01-19] VITALS (16 sets, daily range): BP systolic 103–137; BP diastolic 59–87; PULSE 63–92; TEMP 36.5–37.2; O2SAT 92–98
[2025-01-19] MEDS: FUROSEMIDE 20 MG/2 ML VIAL IVP (00:15)
[2025-01-19] MEDS: DOXYCYCLINE HYCLATE 100 MG in 0.9 % SODIUM CHLORIDE 100 ML IV ×2 (02:56→14:14)
[2025-01-19 05:44] LABS: Hematocrit 38.6 % (36.0-48.0); Hemoglobin 12.7 g/dL (12.0-16.0); Immature Granulocytes Abs Auto 0.11 10^3/uL (0.00-0.03); Immature Granulocytes Pct Auto 1.0 % (0.0-0.5); Lymphocytes Absolute Auto 0.8 10^3/uL (1.2-3.8); Mean Corpuscular HGB Conc 32.9 g/dL (29.9-35.2); Mean Corpuscular Hemoglobin 30.4 pg (26.7-34.0); Mean Corpuscular Volume 92.3 fL (81.0-99.0); Platelet Count 150 10^3/uL (150-450); Red Blood Count 4.18 10^6/uL (4.20-5.40); White Blood Count 11.2 10^3/uL (4.0-11.0)
[2025-01-19 06:05] LABS: Alanine Aminotransferase 21 U/L (14-59); Albumin Globulin Ratio 0.9; Albumin Level 2.9 g/dL (3.4-5.0); Alkaline Phosphatase 81 U/L (46-116); Anion Gap 14.2; Aspartate Amino Transferase 19 U/L (15-37); Blood Urea Nitrogen 17.0 mg/dL (7.0-18.0); Calcium 8.6 mg/dL (8.5-10.1); Carbon Dioxide 27.7 mmol/L (21.0-32.0); Chloride 100 mmol/L (98-107); Estimated GFR (African America >60 (>=60 mL/min/1.73m^2); Estimated GFR (Non-African Ame 52 (>=60 mL/min/1.73m^2); Globulin 3.4 g/dL; Glucose 175 mg/dL (74-106); Magnesium 1.9 mg/dL (1.8-2.4); Sodium 139 mmol/L (136-145); Total Protein 6.3 g/dL (6.4-8.2)
[2025-01-19] MEDS: PANTOPRAZOLE SODIUM 40 MG TABLET.DR PO (06:12)
[2025-01-19] MEDS: PIPERACILLIN SODIUM/TAZOBACTAM 3.375 GM in 0.9 % SODIUM CHLORIDE 50 ML IV ×2 (06:12→15:16)
[2025-01-19] MEDS: LEVOTHYROXINE SODIUM 100 MCG TABLET PO (06:12)
[2025-01-19 06:34] LABS: Potassium 2.9 mmol/L (3.5-5.1)
[2025-01-19] MEDS: IPRATROPIUM/ALBUTEROL SULFATE 3 ML AMPUL.NEB IH ×3 (09:14→20:03)
--- NOTE | 2025-01-19 10:04 | SWNOTE1 ---
SW and I stopped in pt's room to discuss PT/OT recommendation for SNF. Pt was sitting up in chair and her son was in the room as well. I let the son know what therapy recommended. He did voice that last time she went to a rehab facility, she became stressed out so she did not stay long. He voiced he would do anything he could to help her, but he knows she feels better at home. SW and I voiced understanding. Pt was already set up with [facility], so we will continue with them at this time. SW to follow as needed.
--- NOTE | 2025-01-19 10:10 | CM.NOTE ---
Rounds made with Dr. Murillo, discussed diagnosis and plan of care with pt and son. Pt will not discharge today. Pt is active with [facility] services. PT and OT will evaluate pt today for discharge recommendations.
[2025-01-19] MEDS: GABAPENTIN 100 MG CAPSULE 200 MG PO ×2 (10:24→21:16)
[2025-01-19] MEDS: CETIRIZINE HCL 10 MG TABLET PO (10:25)
[2025-01-19] MEDS: BUPROPION HCL 150 MG XL TABLET 24H PO (10:25)
[2025-01-19] MEDS: ASPIRIN 81 MG TAB.CHEW PO (10:25)
[2025-01-19] MEDS: ATORVASTATIN CALCIUM 40 MG TABLET PO (10:26)
[2025-01-19] MEDS: CARVEDILOL 12.5 MG TABLET 6.25 MG PO ×2 (10:26→21:16)
[2025-01-19] MEDS: HEPARIN SODIUM (PORCINE) 5,000 UNIT/ML VIAL 5000 UNIT SUBQ ×2 (10:26→21:15)
[2025-01-19] MEDS: FAMOTIDINE 20 MG TABLET PO (10:26)
[2025-01-19] MEDS: POTASSIUM CHLORIDE 40 MEQ in 0.9 % SODIUM CHLORIDE 250 ML 67.5 MEQ IV (10:27)
[2025-01-19] MEDS: ALPRAZOLAM 0.25 MG TABLET PO ×2 (10:29→21:15)
--- NOTE | 2025-01-19 10:35 | P.PN_ITS ---
Progress Note: Subjective Subjective Interval history: Patient seen and examined at bedside. Overnight patient did have desaturated to 88% and received 1 dose of Lasix as well as 1 dose of morphine 2 g IV. Her son is at bedside as well. Stating that she is feeling better today. No fever no chills no nausea no vomiting. Her leukocytosis has trended down today. Still on nasal cannula 2 L. Does have some increased work of breathing however she is feeling better compared to yesterday. No episodes of syncope or dizziness since yesterday. She worked with physical therapy today Exam Narrative Exam Narrative: General: She is frail and ill-appearing. Not in acute distress. At baseline mental status. Following commands. Cooperative. Skin: Warm, dry, no pallor noted. There is no rash noted. No petechiae, purpura. Head: Normocephalic, atraumatic; patient was placed in a cervical collar secondary to Nexus criteria, err on the side of caution. Eye: Normal conjunctiva, no drainage, EOMI. PERRL Ears, Nose, Mouth, and Throat: oral mucosa is dry Nares patent. Mouth without vesicles. Cardiovascular: Regular Rate and Rhythm, no murmur, gallop, rub Respiratory: Decreased bilateral air entry with bibasilar crackles, no wheezes, patient is not using log data technician muscles her work of breathing is still labored with mild respiratory distress. Saturating well on 2 liters nasal cannula. Back: non-tender, no CVA tenderness bilaterally to percussion. No CT LS midline pain GI: no tenderness to palpation, no masses appreciated. No rebound, guarding, or rigidity noted. No distention Musculoskeletal: Patient has full range of motion of all of the extremities, no motor, sensory, or focal neurological deficits Neurological: A&O x3, normal speech, generalized weakness but no new focal motor or sensory deficits Constitutional Vital Signs, click to edit/add: Last Vital Signs Temp 97.7 F 01/19/25 08:00 Pulse 92 H 01/19/25 10:00 Resp 22 H 01/19/25 08:00 BP 118/73 01/19/25 08:00 Pulse Ox 95 01/19/25 09:15 O2 Del Method Nasal Cannula 01/19/25 09:15 O2 Flow Rate 2 01/19/25 09:15 Progress Note: Objective Labs Labs: Short CBC 01/19/25 Range/Units 05:27 WBC 11.2 H (4.0-11.0) 10^3/uL Hgb 12.7 (12.0-16.0) g/dL Hct 38.6 (36.0-48.0) % Plt Count 150 (150-450) 10^3/uL BMP 01/19/25 05:27 Sodium 139 Potassium 2.9 L* Chloride 100 Carbon Dioxide 27.7 BUN 17.0 Creatinine 1.02 Glucose 175 H Calcium 8.6 Liver Function 01/19/25 Range/Units 05:27 Total Bilirubin 0.9 (0.2-1.0) mg/dL AST 19 (15-37) U/L ALT 21 (14-59) U/L Alkaline Phosphatase 81 (46-116) U/L Albumin 2.9 L (3.4-5.0) g/dL Progress Note: A&P Assessment and Plan (1) Sepsis: (2) Syncope and collapse: (3) Dehydration: (4) Hypokalemia: (5) Pneumonia: Plan Syncope in the setting of dehydration and sepsis due to bilateral pneumonia, will cover Pseudomonas given recent hospitalization Mild JONE in the setting of dehydration Debility and frailty with multiple admissions, may need placement or higher level of care History of diastolic CHF and COPD with recent admission for exacerbation - Admit patient to medical floor with telemetry -Start IV Zosyn, to be dosed by pharmacy -Start doxycycline 100 mg IV BID -Obtain sputum culture -Obtain RSV, COVID, and flu -PASSENGER TRAIN BRAKER eval -PT/OT eval -DNRCCA without intubation, discussed the plan and goals of care with pt and son. Answered all their questions -I reconciled her medications, holding lisinopril given her mild JONE -DVT and GI PPx addressed -Aspiration precautions 01/19/2025 overnight events noted. Ordered CXR and pro BNP for today. patient did have hypokalemia on her labs which I repleted. Stopped IV fluids as the patient is euvolemic now. Labs show improving leukocytosis. Will continue her home dose of torsemide, if CHF is noted from the cxr and pro BNP, I will start Lasix 20 mg IV BID. Continue to monitor her for now with IV antibiotics which is Zosyn today. Also repleted her hypokalemia. Discussed the plan with the patient and her son at bedside. Answered all her question
--- NOTE | 2025-01-19 10:39 | XR_ITS ---
[facility] [place] [id number] Patient Name: ELGIN NORWOOD MRN: [id number] date: 1940 Sex: F Assigned Patient Location: MS Current Patient Location: MS Accession/Order Number: [id number] Exam Date: 01/19/2025 11:38 Report Date: 01/19/2025 11:39 At the request of: SARA SHAY MD Procedure: XR chest 2V Chest 2 views CLINICAL HISTORY: fluid overload, acute? COMPARISON: Chest 01/18/2025 FINDINGS: Heart normal in size. Chronic appearing interstitial changes. No consolidation pneumothorax pleural effusion or free air. Osseous structures demonstrate degenerative change. XR/XR chest 2V IMPRESSION: NO ACUTE CARDIOPULMONARY ABNORMALITY. Impression dictated by: Renard Soriano Jr., D.O. 01/19/2025 11:39 AM Dictation Location: [place] [address] Electronically authenticated by: [id number] Y Date: 01/19/2025 11:39
[2025-01-19] MEDS: 0.9 % SODIUM CHLORIDE 250 ML 10 ML IV ×2 (10:49→16:37)
[2025-01-19 11:21] LABS: NT Pro B Type Natriuretic Pept 267.0 pg/mL (<=1800.0)
[2025-01-19] MEDS: TORSEMIDE 20 MG TABLET PO (12:21)
--- NOTE | 2025-01-19 15:19 | SWNOTE1 ---
Faxed updates to [facility] and notified them of no d/c today.
[2025-01-19] MEDS: MEMANTINE HCL 28 MG CAP XR PO (21:15)
[2025-01-20] VITALS (21 sets, daily range): BP systolic 92–137; BP diastolic 52–73; PULSE 57–116; TEMP 36.4–36.5; O2SAT 93–99
[2025-01-20] MEDS: PIPERACILLIN SODIUM/TAZOBACTAM 3.375 GM in 0.9 % SODIUM CHLORIDE 50 ML IV ×2 (00:22→09:41)
[2025-01-20] MEDS: DOXYCYCLINE HYCLATE 100 MG in 0.9 % SODIUM CHLORIDE 100 ML IV (04:12)
[2025-01-20 05:34] LABS: Hematocrit 34.7 % (36.0-48.0); Hemoglobin 11.5 g/dL (12.0-16.0); Immature Granulocytes Abs Auto 0.13 10^3/uL (0.00-0.03); Immature Granulocytes Pct Auto 0.9 % (0.0-0.5); Lymphocytes Absolute Auto 1.7 10^3/uL (1.2-3.8); Mean Corpuscular HGB Conc 33.1 g/dL (29.9-35.2); Mean Corpuscular Hemoglobin 30.8 pg (26.7-34.0); Mean Corpuscular Volume 93.0 fL (81.0-99.0); Platelet Count 152 10^3/uL (150-450); Red Blood Count 3.73 10^6/uL (4.20-5.40); White Blood Count 14.4 10^3/uL (4.0-11.0)
[2025-01-20] MEDS: LEVOTHYROXINE SODIUM 100 MCG TABLET PO (06:13)
[2025-01-20] MEDS: PANTOPRAZOLE SODIUM 40 MG TABLET.DR PO (06:13)
[2025-01-20 06:15] LABS: Alanine Aminotransferase 17 U/L (14-59); Albumin Globulin Ratio 0.8; Albumin Level 2.4 g/dL (3.4-5.0); Alkaline Phosphatase 64 U/L (46-116); Anion Gap 12.4; Aspartate Amino Transferase 15 U/L (15-37); Blood Urea Nitrogen 23.0 mg/dL (7.0-18.0); Calcium 8.6 mg/dL (8.5-10.1); Carbon Dioxide 25.6 mmol/L (21.0-32.0); Chloride 104 mmol/L (98-107); Estimated GFR (African America >60 (>=60 mL/min/1.73m^2); Estimated GFR (Non-African Ame 50 (>=60 mL/min/1.73m^2); Globulin 3.0 g/dL; Glucose 142 mg/dL (74-106); Magnesium 2.0 mg/dL (1.8-2.4); Potassium 3.0 mmol/L (3.5-5.1); Sodium 139 mmol/L (136-145); Total Protein 5.4 g/dL (6.4-8.2)
[2025-01-20] MEDS: IPRATROPIUM/ALBUTEROL SULFATE 3 ML AMPUL.NEB IH ×3 (08:00→20:01)
[2025-01-20] MEDS: HEPARIN SODIUM (PORCINE) 5,000 UNIT/ML VIAL 5000 UNIT SUBQ ×2 (09:39→21:02)
[2025-01-20] MEDS: GABAPENTIN 100 MG CAPSULE 200 MG PO ×2 (09:40→21:02)
[2025-01-20] MEDS: ASPIRIN 81 MG TAB.CHEW PO (09:40)
[2025-01-20] MEDS: ALPRAZOLAM 0.25 MG TABLET PO ×2 (09:40→16:13)
[2025-01-20] MEDS: CETIRIZINE HCL 10 MG TABLET PO (09:40)
[2025-01-20] MEDS: CARVEDILOL 12.5 MG TABLET 6.25 MG PO ×2 (09:41→21:03)
[2025-01-20] MEDS: FAMOTIDINE 20 MG TABLET PO (09:41)
[2025-01-20] MEDS: TORSEMIDE 20 MG TABLET PO (09:41)
[2025-01-20] MEDS: ATORVASTATIN CALCIUM 40 MG TABLET PO (09:41)
[2025-01-20] MEDS: BUPROPION HCL 150 MG XL TABLET 24H PO (09:42)
--- NOTE | 2025-01-20 11:33 | PC.NURSE ---
Patient dropped from 98 to lowest 94 % ambulating this creative services writer did not apply oxygen patient did not require it.
--- NOTE | 2025-01-20 11:44 | SWNOTE1 ---
DEVEN spoke to Dr. Mahmood. SW let physician know about refusal about going to skilled and that patient is set with home health. Physician ordering walk test to be completed.
[2025-01-20] MEDS: SPIRONOLACTONE 25 MG TABLET PO (11:51)
[2025-01-20] MEDS: POTASSIUM CHLORIDE 10 MEQ ER TABLET 50 MEQ PO (11:52)
--- NOTE | 2025-01-20 13:48 | P.PN_ITS ---
Progress Note: Subjective Subjective Interval history: Last night the patient did well on room air and did not require supplemental oxygen. This morning she was doing well on room air. She did a 6-minute walk study in the hallway and her oxygen saturations dropped from 98% to 94% on room air. Today she is accompanied to the bedside by her son. Her son does not want to have her be in a residential facility. They want to use home health to take care of her. The patient really had no signs or symptoms of this pneumonia other than her generalized fatigue and malaise. She really had no cough. On auscultation her lungs are shockingly clear. So I explained to the son that the only way that this pneumonia was found was on the CT and x-rays on her chest. The son reports that the patient is looking a lot better. She is looking more energetic. The way the son describes that she looks much better than when she first came in. The patient herself does not have any symptomatic complaints. I think at her advanced age of 84 she just generally does not complain of anything whether it is bothering her or not. Exam Narrative Exam Narrative: General: Sitting upright in a chair. Feeding herself lunch. Pulmonary very distant breath sounds to auscultation throughout. She has no cough, even with deep breathing for auscultation. I do not hear any crackles. Cardiac: Regular rate and rhythm to auscultation with no murmurs. GI: Abdomen soft, normal bowel sounds. Lower extremities: Lots of soft puffy tissue to her legs but no pitting edema. Constitutional Vital Signs, click to edit/add: Last Vital Signs Temp 97.6 F 01/20/25 11:41 Pulse 72 01/20/25 13:44 Resp 24 H 01/20/25 11:41 BP 133/70 01/20/25 11:41 Pulse Ox 96 01/20/25 11:41 O2 Del Method Room Air 01/20/25 11:41 O2 Flow Rate 2 01/19/25 12:00 Progress Note: Objective Labs Labs: Short CBC 01/20/25 Range/Units 05:25 WBC 14.4 H (4.0-11.0) 10^3/uL Hgb 11.5 L (12.0-16.0) g/dL Hct 34.7 L (36.0-48.0) % Plt Count 152 (150-450) 10^3/uL BMP 01/20/25 05:25 Sodium 139 Potassium 3.0 L Chloride 104 Carbon Dioxide 25.6 BUN 23.0 H Creatinine 1.06 H Glucose 142 H Calcium 8.6 Liver Function 01/20/25 Range/Units 05:25 Total Bilirubin 0.6 (0.2-1.0) mg/dL AST 15 (15-37) U/L ALT 17 (14-59) U/L Alkaline Phosphatase 64 (46-116) U/L Albumin 2.4 L (3.4-5.0) g/dL Progress Note: A&P Assessment and Plan (1) Sepsis: Qualifiers: Sepsis type: sepsis due to unspecified organism Sepsis acute organ dysfunction status: without acute organ dysfunction Qualified Code(s): A41.9 - Sepsis, unspecified organism (2) Syncope and collapse: (3) Dehydration: (4) Hypokalemia: (5) Pneumonia: Qualifiers: Pneumonia type: due to unspecified organism Laterality: bilateral Lung location: lower lobe of lung Qualified Code(s): J18.9 - Pneumonia, unspecified organism Plan Assessment: Multilobar pneumonia, causing: Syncope, due to: Dehydration, and risk of sepsis at the time that she was admitted. Along with: Mild acute kidney injury, due to dehydration. History of chronic diastolic congestive heart failure History of COPD. History of frequent pneumonia. Comment: This is a really unique situation where she had really no symptoms of pneumonia such as a cough or expectoration of sputum, and she had no lung sounds at all. I think her COPD and advanced age makes it very difficult to hear any crackles even if they were present. The only way this pneumonia was discovered was on x-ray and CT scan imaging. Plan: De-escalate antibiotics. She has been on Zosyn and doxycycline. I will downgrade her to Augmentin. Replacing potassium. Check magnesium with morning labs. Okay to resume her lisinopril now that she has been rehydrated. Urinary Catheter Management Urinary Catheter Management Pure Wick: Cath placed during this visit: yes Urethral indwelling: No Insertion date: 01/19/25 Insertion time: 11:50
[2025-01-20] MEDS: AZITHROMYCIN 250 MG TABLET PO (14:25)
[2025-01-20] MEDS: POLYETHYLENE GLYCOL 3350 17 GM POWDER PACKET PO ×2 (14:25→21:02)
[2025-01-20] MEDS: AMOXICILLIN/POT CLAV 875-125 MG TABLET 1 TAB PO (21:02)
[2025-01-20] MEDS: MEMANTINE HCL 28 MG CAP XR PO (21:02)
[2025-01-20] MEDS: ACETAMINOPHEN 325 MG TABLET 650 MG PO (21:59)
[2025-01-21] VITALS (8 sets, daily range): BP systolic 105–120; BP diastolic 66–78; PULSE 57–81; TEMP 36.3–36.6; O2SAT 93–96
[2025-01-21] MEDS: ALPRAZOLAM 0.25 MG TABLET PO ×2 (00:09→08:55)
[2025-01-21] MEDS: PANTOPRAZOLE SODIUM 40 MG TABLET.DR PO (05:39)
[2025-01-21] MEDS: LEVOTHYROXINE SODIUM 100 MCG TABLET PO (05:39)
[2025-01-21 06:48] LABS: Hematocrit 36.5 % (36.0-48.0); Hemoglobin 11.7 g/dL (12.0-16.0); Immature Granulocytes Abs Auto 0.12 10^3/uL (0.00-0.03); Immature Granulocytes Pct Auto 1.1 % (0.0-0.5); Lymphocytes Absolute Auto 2.7 10^3/uL (1.2-3.8); Mean Corpuscular HGB Conc 32.1 g/dL (29.9-35.2); Mean Corpuscular Hemoglobin 30.5 pg (26.7-34.0); Mean Corpuscular Volume 95.3 fL (81.0-99.0); Platelet Count 152 10^3/uL (150-450); Red Blood Count 3.83 10^6/uL (4.20-5.40); White Blood Count 11.0 10^3/uL (4.0-11.0)
[2025-01-21 07:01] LABS: Anion Gap 11.5; Blood Urea Nitrogen 28.0 mg/dL (7.0-18.0); Calcium 8.7 mg/dL (8.5-10.1); Carbon Dioxide 27.0 mmol/L (21.0-32.0); Chloride 107 mmol/L (98-107); Estimated GFR (African America >60 (>=60 mL/min/1.73m^2); Estimated GFR (Non-African Ame 51 (>=60 mL/min/1.73m^2); Glucose 114 mg/dL (74-106); Magnesium 2.0 mg/dL (1.8-2.4); Potassium 3.5 mmol/L (3.5-5.1); Sodium 142 mmol/L (136-145)
[2025-01-21] MEDS: POLYETHYLENE GLYCOL 3350 17 GM POWDER PACKET PO (08:54)
[2025-01-21] MEDS: HEPARIN SODIUM (PORCINE) 5,000 UNIT/ML VIAL 5000 UNIT SUBQ (08:54)
[2025-01-21] MEDS: CETIRIZINE HCL 10 MG TABLET PO (08:55)
[2025-01-21] MEDS: SPIRONOLACTONE 25 MG TABLET PO (08:55)
[2025-01-21] MEDS: AZITHROMYCIN 250 MG TABLET PO (08:55)
[2025-01-21] MEDS: ASPIRIN 81 MG TAB.CHEW PO (08:55)
[2025-01-21] MEDS: CARVEDILOL 12.5 MG TABLET 6.25 MG PO (08:55)
[2025-01-21] MEDS: GABAPENTIN 100 MG CAPSULE 200 MG PO (08:55)
[2025-01-21] MEDS: LISINOPRIL 5 MG TABLET PO (08:55)
[2025-01-21] MEDS: FAMOTIDINE 20 MG TABLET PO (08:55)
[2025-01-21] MEDS: TORSEMIDE 20 MG TABLET PO (08:55)
[2025-01-21] MEDS: BUPROPION HCL 150 MG XL TABLET 24H PO (08:55)
[2025-01-21] MEDS: AMOXICILLIN/POT CLAV 875-125 MG TABLET 1 TAB PO (08:55)
[2025-01-21] MEDS: ATORVASTATIN CALCIUM 40 MG TABLET PO (08:55)
--- NOTE | 2025-01-21 08:55 | PT.DAILY ---
Physical Therapy Daily Note PT Daily Note/Assess Start: 01/20/25 10:51 Freq: Status: Active Protocol: Document 01/21/25 07:50 [email or web address] (Rec: 01/21/25 08:55 [id number] [id number]) Physical Therapy Daily Note/Assessment Time In/Time Out Time In 07:56 Time Out 08:15 Subjective Subjective Patient reports feeling better, is ready to get up for the day. Therapeutic Activity Time Therapeutic Activity 19 Minutes (minutes) Therapeutic Activity 1 Units Therapeutic Activity Treatment Bed Mobility Ability Modified Independent Chair Transfer Standby Assistance Ability Therapeutic Activity Supine to sit modified ind. with use of rail and Comments elevated HOB. Sit to stand from various heights and surfaces at RW SBA. Gait 25'x1 and 40'x1 with RW SBA. No LOB. Completed 4-5 min of static standing at RW with UE support without LOB. Seated exercises B LE all planes 10 reps. Total Physical Therapy Time Total Therapy 19 Minutes Total Physical 1 Therapy Units Summary Daily Note Summary Patient demonstrates improved ability with bed mobility , transfers, and gait today. SBA with all activity with good safety awareness. Gait distance is limited to SOB and fatigue, but no LOB is noted. Patient was up in chair with nursing staff present post RX.
[2025-01-21] MEDS: IPRATROPIUM/ALBUTEROL SULFATE 3 ML AMPUL.NEB IH (09:51)
[2025-01-21] MEDS: POTASSIUM CHLORIDE 10 MEQ ER TABLET 30 MEQ PO (10:10)
--- NOTE | 2025-01-21 13:18 | P.DS_ITS ---
DS: Providers Provider Date of admission: 01/18/25 11:55 Primary care physician: MK ORTEGA Consults: 01/18/25 11:27 Speech Therapy Eval and Treat Routine Reason for consultation: swallow eval 01/18/25 11:44 Occupational Therapy Eval and Treat Routine Reason for consultation: placement Physical Therapy Eval and Treat Routine Reason for consultation: placement Attending physician on discharge: RHONDA HUTCHISON Discharging clinician: RHONDA HUTCHISON Anticipated date of discharge: 01/21/25 DS: Diagnosis Discharge Diagnosis (1) Pneumonia: Qualifiers: Laterality: bilateral Lung location: lower lobe of lung Pneumonia type: due to unspecified organism Qualified Code(s): J18.9 - Pneumonia, unspecified organism (2) Sepsis: Qualifiers: Sepsis type: sepsis due to unspecified organism Sepsis acute organ dysfunction status: without acute organ dysfunction Qualified Code(s): A41.9 - Sepsis, unspecified organism (3) Syncope and collapse: (4) Dehydration: (5) Hypokalemia: Plan Multilobar pneumonia. Presenting with sepsis and collapse. Concern for sepsis on presentation. DS: Summary Hospital Course Hospital Course: This is an 84-year-old woman who required hospitalization at the [facility] for multilobar pneumonia. She presented to emergency room because of an episode of syncope and collapse. Her white blood count was very high at 20.4. She was having low blood pressures and tachycardia. There was a concern that she may be developing sepsis. As part of her workup in the emergency room she had a CT scan of her head, cervical spine, abdomen pelvis and chest. The CT scanning showed no cervical spine fracture, no acute intracranial abnormality. There is cortical atrophy with chronic microvascular ischemic changes. In the abdomen there was cholelithiasis and a subcentimeter low attenuating lesion in the spleen that was too small for accurate characterization. There are postsurgical changes to the stomach. There was a moderate amount of stool in the colon. She has had a hysterectomy. In the chest she does have emphysema. She had consolidative changes in following the lower lobes bilaterally. Clinically this was a very unusual pneumonia. The patient had no cough. To auscultation she had no abnormal lung sounds, possibly on the basis of her advanced emphysema, and so the only way to follow her symptomatology was to look at her energy level and fatigue. And follow her white blood count. That necessitated the inpatient hospital stay until the last day of discharge when she was making steady improvement. During the hospital stay she was treated with IV antibiotics with Zosyn at first. There was a concern that there may be aspiration. She had speech therapy consultation. Her swallowing was found to be adequate. During hospital stay her white blood count improved from 20.4 down to 11.2 on the next day, possibly partially on the basis of being rehydrated, and then it was 14.4 the next day and then on the last hospital day when she was discharged it was normal at 11.0. At the time of discharge she is being sent home on Augmentin and also Zithromax. Blood cultures were negative during the hospital stay. She was never able to expectorate any sputum. Infection never had a cough. So these 2 antibiotics are being used to cover wide variety of bacterial possibilities. While she was here physical therapy recommended senior care facility but her family members declined this and they want to take care of her at home. She will be set up with home health services. Status at Discharge Functional status at discharge: uses cane/walker Overall status at discharge: patient is progressing back to baseline Time Spent with Patient Time attestation: Total time spent providing and/or coordinating discharge services: 39. Time spent: greater than 30 minutes Exam Narrative Exam Narrative: General: Looking stronger every day. More conversant and more interactive. Pulmonary: Distant lung sounds to auscultation throughout consistent with emphysema. No cough. No wheezing. No crackles. GI: Abdomen soft, mild tenderness along the left side of her abdomen on the colon likely from constipation. Cardiac: Regular rate rhythm. No murmurs to auscultation. Skin: Warm and dry and well-perfused throughout. Constitutional Vital Signs, click to edit/add: Last Vital Signs Temp 97.8 F 01/21/25 08:00 Pulse 81 01/21/25 10:00 Resp 16 01/21/25 09:52 BP 120/78 01/21/25 08:00 Pulse Ox 93 L 01/21/25 09:52 O2 Del Method Room Air 01/21/25 09:52 O2 Flow Rate 2 01/19/25 12:00 DS: Data Data Completed and Pending Labs on day of discharge: Labs from last 24 hours 01/21/25 06:27 WBC 11.0 RBC 3.83 L Hgb 11.7 L Hct 36.5 MCV 95.3 MCH 30.5 MCHC 32.1 RDW 13.4 Plt Count 152 MPV 10.8 Neut % (Auto) 65.7 Lymph % (Auto) 24.9 Eddy % (Auto) 7.4 Eos % (Auto) 0.7 L Baso % (Auto) 0.2 Neut # (Auto) 7.2 H Lymph # (Auto) 2.7 Eddy # (Auto) 0.8 Eos # (Auto) 0.1 Baso # (Auto) 0.0 Abs Immat Gran (auto) 0.12 H Imm/Tot Granulo (auto) 1.1 H Sodium 142 Potassium 3.5 Chloride 107 Carbon Dioxide 27.0 Anion Gap 11.5 BUN 28.0 H Creatinine 1.04 H Est GFR ( Amer) >60 Est GFR (Non-Af Amer) 51 L BUN/Creatinine Ratio 26.9 Glucose 114 H Calcium 8.7 Magnesium 2.0 Vitamin D Level 36.1 Discharge Plan Discharge Disposition: Home Health Service Condition: Fair Discharge Medications: New polyethylene glycol 3350 17 gram Powder In Packet 17 g PO BID Qty: 0 0RF azithromycin 250 mg Tablet 250 mg PO QD 4 Days Qty: 4 0RF amoxicillin-pot clavulanate 875-125 mg Tablet 1 tab PO BID 4 Days Qty: 8 0RF Continued duloxetine 60 mg capsule,delayed release(DR/EC) 60 mg PO DAILY loratadine 10 mg tablet 10 mg PO DAILY aspirin [Dalton Chewable Aspirin] 81 mg tablet,chewable 81 mg PO DAILY carvedilol 12.5 mg tablet 12.5 mg PO Q12H gabapentin 100 mg capsule 200 mg PO Q12H levothyroxine 100 mcg tablet 100 mcg PO .ACB famotidine 20 mg tablet 20 mg PO DAILY atorvastatin 40 mg tablet 40 mg PO DAILY omeprazole 40 mg capsule,delayed release(DR/EC) 40 mg PO .qd memantine 10 mg tablet 10 mg PO BID torsemide 10 mg tablet 15 mg PO DAILY Qty: 0 0RF alprazolam 0.25 mg tablet 0.25 mg PO TID PRN (Reason: anxiety) Qty: 0 0RF Rx Instructions: If your anxiety is not relieved by your original 0.25 mg dose, Please take additional tablet (0.25 mg) to make it total of 0.5 mg every 8 hours as needed if your anxiety is not relieved by the original dose of 0.25 mg albuterol sulfate 2.5 mg /3 mL (0.083 %) solution for nebulization 2.5 mg inhalation Q8H PRN (Reason: shortness of breath or wheezing) bupropion HCl 150 mg tablet extended release 24 hr 150 mg PO DAILY lisinopril 5 mg tablet 5 mg PO DAILY Discontinued prednisone 10 mg tablet See Rx Instructions .ROUTE .COMPLEX Qty: 21 0RF Rx Instructions: Take 4 tablets (total of 40 mg) daily for 3 days, followed by 2 tablets (total of 20 mg) daily for another 3 days, followed by 1 tablet (10 mg) daily for another 3 days Print Language: Fijian Patient Instructions: Pneumonia (DC) Forms: Portal Instructions Discharge Date/Time: 01/21/25 11:12
--- NOTE | 2025-01-23 09:38 | PC.NURSE ---
Follow up appt. with Dr. Landers on 01/25 @ 11:30am [phone]
--- NOTE | 2025-01-23 14:18 | CM.DCFOLLOWU ---
1st attempt 01/23/25, no answer
--- NOTE | 2025-01-24 09:07 | CM.DCFOLLOWU ---
Person spoke with: patient's son How are you feeling?good How is your pain?no pain Did you understand your discharge instructions?yes Do you have any questions about your discharge instructions?no Were you given any prescriptions at discharge?yes Were you able to get your prescriptions filled?yes Do you understand how to take your medications as ordered?yes Do you have any questions about your follow up appointment and do you plan to keep your follow up appointment?no questions, will follow up Is there anything else that you would like to discuss?no Questions/Comments/Concerns/Other:none
== END 2025-01-21 11:12 | disposition home health service (06) | DRG 871 ==
LOC: ER 09:48 → MS 14:11
PROVIDERS: Hospitalist; Internal Medicine; Admitting Provider Student in an Organized Health Care Education/Training Program; Emergency Provider Emergency Medicine; PCP Internal Medicine; Visit Provider Student in an Organized Health Care Education/Training Program
DX: A41.9 Sepsis, unspecified organism (principal); J18.9 Pneumonia, unspecified organism; I50.32 Chronic diastolic (congestive) heart failure; J44.0 Chronic obstructive pulmonary disease with (acute) lower respiratory infection; N17.9 Acute kidney failure, unspecified; I25.10 Atherosclerotic heart disease of native coronary artery without angina pectoris; I11.0 Hypertensive heart disease with heart failure; F41.9 Anxiety disorder, unspecified; E03.9 Hypothyroidism, unspecified; J43.9 Emphysema, unspecified; E78.5 Hyperlipidemia, unspecified; E87.6 Hypokalemia; E86.0 Dehydration; E11.65 Type 2 diabetes mellitus with hyperglycemia; R53.81 Other malaise; Z66 Do not resuscitate; I95.9 Hypotension, unspecified; Z79.82 Long term (current) use of aspirin; Z79.890 Hormone replacement therapy; Z90.710 Acquired absence of both cervix and uterus; Z87.891 Personal history of nicotine dependence
CPT/HCPCS: 36415; 36600; 70450; 71045; 71046; 71260; 72125; 74177; 80048; 80053; 81001; 82306; 82800; 82805; 83605; 83690; 83735; 83880; 84484; 85025; 85610; 87070; 87205; 87804; 87811; 92610; 93005; 94640; 94761; 96361; 96365; 96375; 96376; 97110; 97161; 97165; 97530; 97535; 99285; J1644; J1938; J2270; J2543; J2919; J3480; Q9967

== ENCOUNTER 2025-02-19 19:20 | Emergency (ER) | payer MEDICARE, SELFPAY ==
[2025-02-19] VITALS (30 sets, daily range): BP systolic 78–137; BP diastolic 48–96; PULSE 82–98; TEMP 36.9; O2SAT 89–99; BMI 31.6
--- OUTSIDE RECORDS SUMMARY | 2025-02-19 19:24 | XMS_ITS | Encounter Summary ---
Author Organization [facility] Address [address] [place] [address] Care Team Providers Care Tin Tie Machine Operator Automatic Name Role Phone Yossi Landers MD Primary Care Provider [phone] Yossi Landers MD Unavailable [phone] Daniela Alvarado LPN Unavailable Encounter Details Date Type Department Care Team (Late st Contact Info) Description 11/07/2024 Abstract [facility] [place] [facility] [address] [facility] 110 [place] [id number] Yossi Landers MD 112 [facility] 110 [place], [place] [id number] Social History Tobacco Use Types Packs/Day Years [...] How often do you attend chur or pentecostal services? Never 11/12/2022 Do you [...] Recorded Patient Health Questionnaire-2 Score 0 11/07/2024 [facility] [place] of Occupat ional Health - Occupational Stress [...] Care Team (Late st Contact Info) Description 02/23/2025 11:15 AM EDT Office Visit [facility] [place] [facility] [address] [facility] [address] [place] [address] Yossi Landers MD [address] [facility] [address] [place] [address] documented as of this encounter Visit Diagnoses Not on filedocumented in this encounter Care Teams Tin Tie Machine Operator Automatic Relationship Specialty Start Date End Date Yossi Landers MD [address] [facility] [address] [place] [address] PCP - General Internal Medicine 11/03/22 Yossi Landers MD [address] [facility] 110 [place] [address] PCP - [employer] 11/20/22 Daniela Alvarado LPN [address] [facility] [address] [place] [address] 09/09/24 documented as of this encounter
--- OUTSIDE RECORDS SUMMARY | 2025-02-19 19:24 | XMS_ITS | Encounter Summary ---
Author Organization [facility] Address [address] [facility] [place] [address] Care Team Providers Care Aircraft Life Support Fitter Name Role Phone Yossi Landers MD Primary Care Provider Yossi Landers MD Unavailable [phone] Seble Mejia RN Unavailable [phone] Daniela Alvarado LPN Unavailable Encounter Details Date Type Department Care Team (Late st Contact Info) Description 12/09/2022 Orders Only [facility] [place] [facility] [address] [facility] 110 [place] [address] Yossi Landers MD [address] [place] [facility] 110 [place], [place] [id number] Social History Tobacco Use Types Packs/Day Years [...] any clubs o r organizations such as latter-day groups, unions, fraternal or athletic groups, or [...] 11:15 AM EDT Office Visit [facility] [place] [address] [facility] 110 [place] [address] Yossi Landers MD [address] [facility] [address] [place] [address] documented as of this encounter Procedures Procedure Name Priority Date/Time Associated Diagnosis Comments US THYROID Routine 12/08/2022 8:39 AM EDT documented in this encounter Results * US thyroid (12/08/2022 8:39 AM EDT) Anatomical Region Laterality Modality Head, Neck Ultrasound us Yossi Landers MD IMG US PROCEDURES Final Result documented in this encounter Visit Diagnoses Not on filedocumented in this encounter Care Teams Aircraft Life Support Fitter Relationship Specialty Start Date End Date Yossi Landers MD [address] [facility] [address] [place] [address] PCP - General Internal Medicine 11/03/22 Yossi Landers MD [address] [place] [facility] 110 [place] [address] PCP - [employer] 11/20/22 Seble Mejia, RN [address] [place], [place] [id number] [facility] 07/29/24 09/09/24 Daniela Alvarado LPN [address] [address] 09/09/24 documented as of this encounter
--- OUTSIDE RECORDS SUMMARY | 2025-02-19 19:24 | XMS_ITS | Encounter Summary ---
Author Organization [facility] Address [address] [facility] [place] [address] Care Team Providers Care Sewer Line Photo Inspector Name Role Phone Yossi Landers MD Primary Care Provider Yossi Landers MD Unavailable [phone] Seble Mejia RN Unavailable Daniela Alvarado LPN Unavailable Encounter Details Date Type Department Care Team (Late st Contact Info) Description 12/09/2022 Abstract [facility] [place] [facility] [address] [facility] 110 [place] [id number] Yossi Landers MD 112 [facility] 110 [place], [place] [phone] Social History Tobacco Use Types Packs/Day Years [...] 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 Not very hard 11/12/2022 [facility] of Occupat ional Health - Occupational [...] 02/23/2025 11:15 AM EDT Office Visit [facility] [place] [address] [facility] 110 [place] [address] Yossi Landers MD [address] [facility] 110 [place] [address] documented as of this encounter Visit Diagnoses Not on filedocumented in this encounter Care Teams Sewer Line Photo Inspector Relationship Specialty Start Date End Date Yossi Landers MD [address] [facility] 110 [place] [address] PCP - General Internal Medicine 11/03/22 Yossi Landers MD [address] [facility] 110 [place] [address] PCP - [employer] 11/20/22 Seble Mejia RN [address] [place] [address] [facility] 07/29/24 09/09/24 Daniela Alvarado LPN 112 [place] [address] 09/09/24 documented as of this encounter
--- OUTSIDE RECORDS SUMMARY | 2025-02-19 19:24 | XMS_ITS | Encounter Summary ---
Author Organization [facility] Address [address] [facility] [place] [address] Care Team Providers Care Wax Blender Name Role Phone Yossi Landers MD Primary Care Provider Yossi Landers MD Unavailable [phone] Seble Mejia RN Unavailable Daniela Alvarado LPN Unavailable Encounter Details Date Type Department Care Team (Late st Contact Info) Description 12/11/2022 Abstract [facility] [place] [facility] 112 [facility] 110 [place] [phone] Yossi Landers MD 112 [facility] 110 [place], [place] [phone] Social History Tobacco Use Types Packs/Day Years [...] 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 Not very hard 11/12/2022 [facility] of Occupat ional Health - Occupational Stress [...] [place] [address] [place] 110 [place] [address] Yossi Landers MD [address] [facility] 110 [place] [address] documented as of this encounter Visit Diagnoses Not on filedocumented in this encounter Care Teams Wax Blender Relationship Specialty Start Date End Date Yossi Landers MD [address] [facility] 110 [place] [address] PCP - General Internal Medicine 11/03/22 Yossi Landers MD [address] [facility] [address] [place] [address] PCP - [employer] 11/20/22 Seble Mejia RN [address] [place] [address] [facility] 07/29/24 09/09/24 Daniela Alvarado LPN 112 [place] [address] 09/09/24 documented as of this encounter
--- OUTSIDE RECORDS SUMMARY | 2025-02-19 19:24 | XMS_ITS | Encounter Summary ---
Author Organization [facility] Address [address] [facility] [place] [address] Care Team Providers Care Eligibility Clerk Name Role Phone Yossi Landers MD Primary Care Provider [phone] Yossi Landers MD Unavailable [phone] Seble Mejia RN Unavailable [phone] Daniela Alvarado LPN Unavailable Encounter Details Date Type Department Care Team (Late st Contact Info) Description 02/23/2024 Abstract [facility] [place] [facility] 112 [facility] 110 [place] [address] Yossi Landers MD 112 [facility] 110 [place], [place] [phone] Social History Tobacco Use Types Packs/Day Years [...] How often do you attend chur or orthodox services? Never 11/12/2022 Do you belong to any clubs o r organizations such as restorationism groups, unions, fraternal or athletic groups, or [...] Recorded Patient Health Questionnaire-2 Score 0 10/12/2023 [facility] of Occupat ional Health - Occupational Stress [...] Visit [facility] [place] [address] [facility] 110 [place] [address] Yossi Landers MD [address] [facility] [address] [place] [address] documented as of this encounter Visit Diagnoses Not on filedocumented in this encounter Care Teams Eligibility Clerk Relationship Specialty Start Date End Date Yossi Landers MD [address] [address] PCP - General Internal Medicine 11/03/22 Yossi Landers MD [address] [facility] 110 [place] [address] PCP - [employer] 11/20/22 Seble Mejia, CIPRIANO [address] [place] [address] [facility] 07/29/24 09/09/24 Daniela Alvarado LPN [address] [address] 09/09/24 documented as of this encounter
--- OUTSIDE RECORDS SUMMARY | 2025-02-19 19:24 | XMS_ITS | Encounter Summary ---
Author Organization [facility] Address [address] [place] [address] Care Team Providers Care Core Analysis Operator Name Role Phone Yossi Landers MD Primary Care Provider [phone] Yossi Landers MD Unavailable [phone] Seble Mejia RN Unavailable [phone] Daniela Alvarado LPN Unavailable Encounter Details [...] Recorded Patient Health Questionnaire-2 Score 0 02/09/2023 [facility] of Occupat ional [facility] - Occupational Stress Questionnaire Answer Date Recorded [...] EDT Office Visit [facility] [place] 112 [facility] 110 [place] [address] Yossi Landers MD 112 [facility] 110 [place] [address] documented as of this encounter Procedures Procedure Name Priority Date/Time Associated Diagnosis Comments US THYROID 06/01/2023 10:38 AM EST documented in this encounter Results * US thyroid (06/01/2023 10:38 AM EST) Anatomical Region Laterality Modality Head, Neck Ultrasound 06/01/2023 10:3 8 AM EST Narrative 06/01/2023 10:40 AM EST The [address] [address] Ultrasound Report Signed Patient: Jaquelin Norwood MR#: [id number] : 1940 Acct:[id number] Age/Sex: 83 / F ADM Date: 06/01/23 Loc: US Attending Dr: Bel Dominique M.D. Ordering Physician: Bel Dominique M.D. Date of Service: 06/01/23 Procedure(s): US thyroid Accession Number(s): [id number] cc: YOSSI LANDERS ; Bel Dominique M.D. [place] [id number] Patient Name: JAQUELIN NORWOOD MRN: [facility]:[id number] date: 1940 Sex: F Assigned Patient Location: US Current Patient Location: US Accession/Order Number: [id number] Exam Date: 06/01/2023 09:55 Report Date: 06/01/2023 [...] from the May 2022 exam TI-RADS: The [employer] TI-RADS committee's white paper recommendations for thyroid lesions classified as TR4 (moderately suspicious) are listed below: > 1.0 cm. Follow-up ultrasound in 1, 2, 3, and 5 years. > 1.5 cm. FNA. J. Am Nikunj Radiol 2017;14:587-595. Electronically authenticated by: CARLOS SOOD Date: 06/01/2023 10:38 Dictated By: Carlos Sood M.D. Signed By: 06/01/23 1040 DD/ 1038 TD/TT: Concession Worker: Procedure Note Radiology, Radiologist, MD - 06/01/2023 The [place] [id number] Ultrasound Report Signed Patient: Jaqulein Norwood JMR#: [id number] : 1940cct:[id number] Age/Sex: 83 / FADM Date: 06/01/23 Loc: US Attending Dr: Bel Dominique M.D. Ordering Physician: Bel Dominique M.D. Date of Service: 06/01/23 Procedure(s): US thyroid Accession Number(s): [id number] cc: YOSSI LANDERS ; Bel Dominique M.D. The [place] [id number] Patient Name: JAQUELIN NORWOOD MRN: [facility]:[id number] date: 1940 Sex: F Assigned Patient Location: US Current Patient Location: US Accession/Order Number: [id number] Exam Date: 06/01/2023 09:55 Report Date: 06/01/2023 [...] from the May 2022 exam TI-RADS: The [employer] TI-RADS committee's white paper recommendations for thyroid lesions classified as TR4 (moderatelysuspicious) are listed below: > 1.0 cm. Follow-up ultrasound in 1, 2, 3, and 5 years. > 1.5 cm. FNA. J. Am Nikunj Radiol 2017;14:587-595. Electronically authenticated by: CARLOS SOOD Date: 06/01/2023 10:38 Dictated By: Carlos Sood M.D. Signed By:06/01/23 1040 DD/ 1038 TD/TT: Concession Worker: us Generic External Data Provider IMG US PROCEDURES Final Result documented in this encounter Visit Diagnoses Not on filedocumented in this encounter Care Teams Core Analysis Operator Relationship Specialty Start Date End Date Yossi Landers MD [address] [facility] 110 [place] [address] PCP - General Internal Medicine 11/03/22 Yossi Landers MD [address] [facility] 110 [place] [address] PCP - [employer] 11/20/22 Seble Mejia, CIPRIANO [address] [place] [address] Clinical [facility] Family [facility] 07/29/24 09/09/24 Daniela Alvarado LPN [address] [facility] 110 [place] [address] 09/09/24 documented as of this encounter
--- OUTSIDE RECORDS SUMMARY | 2025-02-19 19:24 | XMS_ITS | Encounter Summary ---
Author Organization [facility] Address [address] [facility] [place] [address] Care Team Providers Care Restaurant Host Name Role Phone Yossi Landers MD Primary Care Provider Yossi Landers MD Unavailable [phone] Seble Mejia RN Unavailable Daniela Alvarado LPN Unavailable Encounter Details Date Type Department Care Team (Late st Contact Info) Description 03/11/2024 Abstract [facility] [place] [facility] 112 [facility] 110 [place] [address] Yossi Landers MD 112 [facility] 110 [place], [place] [address] Social History Tobacco Use Types Packs/Day Years [...] How often do you attend chur or baptist services? Never 11/12/2022 Do you [...] Recorded Patient Health Questionnaire-2 Score 0 10/12/2023 [facility] [place] of Occupat ional Health - Occupational Stress [...] [address] [facility] 110 [place] [address] Yossi Landers MD [address] [facility] 110 [place] [address] documented as of this encounter Visit Diagnoses Not on filedocumented in this encounter Care Teams Restaurant Host Relationship Specialty Start Date End Date Yossi Landers MD [address] [address] PCP - General Internal Medicine 11/03/22 Yossi Landers MD [address] [facility] 110 [place] [address] PCP - Hum[employer] 11/20/22 Seble Mejia, CIPRIANO [address] [place] [address] Clinical [facility] Family Medicine 07/29/24 09/09/24 Daniela Alvarado LPN [address] [address] 09/09/24 documented as of this encounter
--- OUTSIDE RECORDS SUMMARY | 2025-02-19 19:24 | XMS_ITS | Encounter Summary ---
Author Organization [facility] Address [address] [facility] [place] [address] Care Team Providers Care Dexigraph Operator Name Role Phone Yossi Landers MD Primary Care Provider Yossi Landers MD Unavailable [phone] Seble Mejia RN Unavailable [phone] Daniela Alvarado LPN Unavailable Encounter Details Date Type Department Care Team (Late st Contact Info) Description 01/04/[address] [place] [facility] [address] [facility] 110 [place] [address] Yossi Landers MD 112 [facility] 110 [place], [place] [address] Social History Tobacco Use Types Packs/Day Years [...] Recorded Patient Health Questionnaire-2 Score 0 10/12/2023 [facility] - Occupational Stress Questionnaire [...] [facility] 110 [place] [address] Yossi Landers MD [address] [facility] 110 [place] [address] documented as of this encounter Visit Diagnoses Not on filedocumented in this encounter Care Teams Dexigraph Operator Relationship Specialty Start Date End Date Yossi Landers MD [address] [facility] 110 [place] [address] PCP - General Internal Medicine 11/03/22 Yossi Landers MD [address] [facility] 110 [place] [address] PCP - Hum[employer] 11/20/22 Seble Mejia RN [address] [place] [address] Clinical [facility] Family Medicine 07/29/24 09/09/24 Daniela Alvarado LPN 112 [place] [address] 09/09/24 documented as of this encounter
--- OUTSIDE RECORDS SUMMARY | 2025-02-19 19:24 | XMS_ITS | Encounter Summary ---
Author Organization [facility] Address [address] [facility] [place] [address] Care Team Providers Care Hand Welt Butter Name Role Phone Yossi Landers MD Primary Care Provider Yossi Landers MD Unavailable [phone] Seble Mejia RN Unavailable Daniela Alvarado LPN Unavailable Encounter Details Date Type Department Care Team (Late st Contact Info) Description 01/14/2024 Abstract [facility] [place] [facility] 112 [facility] 110 [place] [address] Yossi Landers MD 112 [facility] 110 [place], [place] [id number] Social History Tobacco Use Types Packs/Day Years [...] often do you attend chur ch or alevism services? Never 11/12/2022 Do you belong to [...] Questionnaire-2 Score 0 10/12/2023 [facility] - Occupational Stress Questionnaire [...] Visit [facility] [place] [address] [facility] 110 [place] [address] Yossi Landers MD [address] [facility] 110 [place] [address] documented as of this encounter Visit Diagnoses Not on filedocumented in this encounter Care Teams Hand Welt Butter Relationship Specialty Start Date End Date Yossi Landers MD [address] [facility] 110 [place] [address] PCP - General Internal Medicine 11/03/22 Yossi Landers MD [address] [facility] 110 [place] [address] PCP - Hum[employer] 11/20/22 Seble Mejia RN [address] [place] [address] Clinical [facility] Family Medicine 07/29/24 09/09/24 Daniela Alvarado LPN 112 [place] [address] 09/09/24 documented as of this encounter
--- OUTSIDE RECORDS SUMMARY | 2025-02-19 19:24 | XMS_ITS | Encounter Summary ---
Author Organization [facility] Address [address] [facility] [place] [address] Care Team Providers Care Size Painter Name Role Phone Yossi Landers MD Primary Care Provider [phone] Yossi Landers MD Unavailable [phone] Seble Mejia RN Unavailable Daniela Alvarado LPN Unavailable Encounter Details Date Type Department Care Team (Late st Contact Info) Description 03/23/2024 Abstract [facility] [place] [facility] 112 [facility] 110 [place] [address] Yossi Landers MD 112 [facility] 110 [place], [place] [address] Social History Tobacco Use Types Packs/Day Years [...] How often do you attend chur or oriental orthodox services? Never 11/12/2022 Do you belong [...] Recorded Patient Health Questionnaire-2 Score 0 10/12/2023 [facility] [place] of Occupat ional Health - Occupational Stress [...] Visit [facility] [place] [address] [facility] 110 [place] [address] Yossi Landers MD [address] [facility] 110 [place] [address] documented as of this encounter Visit Diagnoses Not on filedocumented in this encounter Care Teams Size Painter Relationship Specialty Start Date End Date Yossi Landers MD [address] [address] PCP - General Internal Medicine 11/03/22 Yossi Landers MD [address] [facility] 110 [place] [address] PCP - Hum[employer] 11/20/22 Seble Mejia, CIPRIANO [address] [place] [address] Clinical Advocate Family Medicine 07/29/24 09/09/24 Daniela Alvarado LPN [address] [address] 09/09/24 documented as of this encounter
--- OUTSIDE RECORDS SUMMARY | 2025-02-19 19:24 | XMS_ITS | Encounter Summary ---
Author Organization [facility] Address [address] [facility] [place] [address] Care Team Providers Care Winterizer Name Role Phone Yossi Landers MD Primary Care Provider [phone] Yossi Landers MD Unavailable [phone] Seble Mejia RN Unavailable [phone] Daniela Alvarado LPN Unavailable Encounter Details Date Type Department Care Team (Late st Contact Info) Description 02/25/2023 Abstract [facility] [place] [facility] 112 [facility] 110 [place] [address] Yossi Landers MD 112 [facility] 110 [place], [place] [address] Social History Tobacco Use Types Packs/Day Years [...] any clubs o r organizations such as cheondoism groups, unions, fraternal or athletic groups, or [...] Patient Health Questionnaire-2 Score 0 02/09/2023 [facility] of Occupat ional [...] Description 02/23/2025 11:15 AM EDT Office Visit [facility] [place] [address] [facility] 110 [place] [address] Yossi Landers MD [address] [facility] 110 [place] [address] documented as of this encounter Visit Diagnoses Not on filedocumented in this encounter Care Teams Winterizer Relationship Specialty Start Date End Date Yossi Landers MD [address] [facility] 110 [place] [address] PCP - General Internal Medicine 11/03/22 Yossi Landers MD [address] [facility] 110 [place] [address] PCP - Hum[employer] 11/20/22 Seble Mejia, RN [address] [place] [address] Clinical Advocate Family Medicine 07/29/24 09/09/24 Daniela Alvarado LPN 112 [facility] 110 [place] [address] 09/09/24 documented as of this encounter
--- OUTSIDE RECORDS SUMMARY | 2025-02-19 19:24 | XMS_ITS | Encounter Summary ---
Author Organization [facility] Address [address] [facility] [place] [address] Care Team Providers Care Seaming Machine Operator Name Role Phone Yossi Landers MD Primary Care Provider Yossi Landers MD Unavailable [phone] Seble Mejia RN Unavailable Daniela Alvarado LPN Unavailable Encounter Details Date Type Department Care Team (Late st Contact Info) Description 03/29/2024 Abstract [facility] [place] [facility] 112 [facility] 110 [place] [address] Yossi Landers MD 112 [facility] 110 [place], [place] [address] Social History Tobacco Use Types Packs/Day Years [...] Recorded Patient Health Questionnaire-2 Score 0 10/12/2023 [facility] [place] of Occupat ional Health - Occupational [...] Visit [facility] [place] [address] [facility] 110 [place] [address] Yossi Landers MD [address] [facility] 110 [place] [address] documented as of this encounter Visit Diagnoses Not on filedocumented in this encounter Care Teams Seaming Machine Operator Relationship Specialty Start Date End Date Yossi Landers MD [address] [address] PCP - General Internal Medicine 11/03/22 Yossi Landers MD [address] [facility] 110 [place] [address] PCP - Hum[employer] 11/20/22 Seble Mejia, CIPRIANO [address] [place] [address] Clinical [facility] Family Medicine 07/29/24 09/09/24 Daniela Alvarado LPN [address] [address] 09/09/24 documented as of this encounter
--- OUTSIDE RECORDS SUMMARY | 2025-02-19 19:24 | XMS_ITS | Encounter Summary ---
Author Organization [facility] Address [address] [facility] [place] [address] Care Team Providers Care Broach Trouble Shooter Name Role Phone Yossi Landers MD Primary Care Provider [phone] Yossi Landers MD Unavailable [phone] Seble Mejia RN Unavailable [phone] Daniela Alvarado LPN Unavailable Encounter Details Date Type Department Care Team (Late st Contact Info) Description 02/23/2024 Abstract [facility] [place] [facility] 112 [facility] 110 [place] [address] Yossi Landers MD 112 [facility] 110 [place], [place] [address] Social History Tobacco Use Types Packs/Day Years [...] Recorded Patient Health Questionnaire-2 Score 0 10/12/2023 [facility] [place] of Occupat ional Health - Occupational Stress [...] [address] [facility] 110 [place] [address] Yossi Landers MD [address] [facility] 110 [place] [address] documented as of this encounter Visit Diagnoses Not on filedocumented in this encounter Care Teams Broach Trouble Shooter Relationship Specialty Start Date End Date Yossi Landers MD [address] [address] PCP - General Internal Medicine 11/03/22 Yossi Landers MD [address] [facility] 110 [place] [address] PCP - Humana 11/20/22 Seble Mejia, CIPRIANO [address] [place] [address] Clinical [facility] Family Medicine 07/29/24 09/09/24 Daniela Alvarado LPN [address] [address] 09/09/24 documented as of this encounter
--- OUTSIDE RECORDS SUMMARY | 2025-02-19 19:24 | XMS_ITS ---
Author Organization [facility] Address [address] [place] [address] Care Team Providers Care Tank Storage Supervisor Name Role Phone Yossi Landers MD Primary Care Provider [phone] Yossi Landers MD Unavailable [phone] Daniela Alvarado LPN Unavailable 30 Day Monitoring Program Status:Enrolled (Active) Start date:01/23/2025 Enrollment date:01/23/2025 Case Team Name Relationship Phone Daniela Alvarado LPN(Responsible Staff) [phone] Continued Care and Services Coordination
--- OUTSIDE RECORDS SUMMARY | 2025-02-19 19:24 | XMS_ITS | Encounter Summary ---
Author Organization [facility] Address [address] [facility] [place] [address] Care Team Providers Care Medical Observer Name Role Phone Yossi Landers MD Primary Care Provider [phone] Yossi Landers MD Unavailable [phone] Seble Mejia RN Unavailable Daniela Alvarado LPN Unavailable Encounter Details Date Type Department Care Team (Late st Contact Info) Description 04/09/2023 Abstract [facility] [place] [facility] 112 [facility] 110 [place] [address] Yossi Landers MD 112 [facility] 110 [place], [place] [address] Social History Tobacco Use Types Packs/Day Years [...] often do you attend chur ch or taoism services? Never 11/12/2022 Do you belong to [...] Recorded Patient Health Questionnaire-2 Score 0 02/09/2023 [facility] of Occupat ional Health - Occupational [...] [address] [facility] 110 [place] [address] Yossi Landers MD [address] [facility] 110 [place] [address] documented as of this encounter Visit Diagnoses Not on filedocumented in this encounter Care Teams Medical Observer Relationship Specialty Start Date End Date Yossi Landers MD [address] [facility] 110 [place] [address] PCP - General Internal Medicine 11/03/22 Yossi Landers MD [address] [facility] 110 [place] [address] PCP - Hum[employer] 11/20/22 Seble Mejia, CIPRIANO [address] [place] [address] Clinical [facility] Family Medicine 07/29/24 09/09/24 Daniela Alvarado LPN 112 [facility] 110 [place] [address] 09/09/24 documented as of this encounter
--- OUTSIDE RECORDS SUMMARY | 2025-02-19 19:24 | XMS_ITS | Encounter Summary ---
Author Organization [facility] Address [address] [facility] [place] [address] Care Team Providers Care Shucker Name Role Phone Yossi Landers MD Primary Care Provider Yossi Landers MD Unavailable [phone] Seble Mejia RN Unavailable [phone] Daniela Alvarado LPN Unavailable Encounter Details Date Type Department Care Team (Late st Contact Info) Description 12/18/2022 Abstract [facility] [place] [facility] 112 [facility] 110 [place] [address] Yossi Landers MD 112 [facility] 110 [place], [place] [address] Social History Tobacco Use Types Packs/Day Years [...] 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 Not very hard 11/12/2022 [facility] [place] of Occupat ional Health - Occupational Stress [...] [address] [facility] 110 [place] [address] Yossi Landers MD [address] [facility] 110 [place] [address] documented as of this encounter Visit Diagnoses Not on filedocumented in this encounter Care Teams Shucker Relationship Specialty Start Date End Date Yossi Landers MD [address] [facility] 110 [place] [address] PCP - General Internal Medicine 11/03/22 Yossi Landers MD [address] [facility] 110 [place] [address] PCP - Humana 11/20/22 Seble Mejia, RN [address] [place] [address] Clinical [facility] Family Medicine 07/29/24 09/09/24 Daniela Alvarado LPN 112 [facility] 110 [place] [address] 09/09/24 documented as of this encounter
--- OUTSIDE RECORDS SUMMARY | 2025-02-19 19:24 | XMS_ITS | Encounter Summary ---
Author Organization [facility] Address [address] [place] [address] Care Team Providers Care Ditch Worker Name Role Phone Yossi Landers MD Primary Care Provider [phone] Yossi Landers MD Unavailable [phone] Seble Mejia RN Unavailable Daniela Alvarado LPN Unavailable Encounter Details Date Type Department Care Team (Late st Contact Info) Description 01/04/2024 Clinisync Result Encounter NOMS External Department Unsolicited Yossi Landers MD [address] [facility] 110 [place] [address] Social History Tobacco Use Types Packs/Day Years [...] often do you attend chur ch or amish services? Never 11/12/2022 Do you belong to any clubs o r organizations such as advent groups, unions, fraternal or athletic groups, or [...] 11:15 AM EDT Office Visit [facility] 112 [address] [facility] 110 [place] [address] Yossi Landers MD 112 [facility] 110 [place] [address] documented as of this encounter Procedures Procedure Name Priority Date/Time Associated Diagnosis Comments NM HEPATOBILIARY SCAN W PHARMACOLOGICAL INTERVENTION 01/04/2024 10:48 AM EDT documented in this encounter Results * NM HEPATOBILIARY SCAN W PHARMACOLOGICAL INTERVENTION (01/04/2024 10:48 AM EDT) Anatomical Region Laterality Modality Radiographic Joanna ging 01/04/2024 10:4 8 AM EDT Narrative 01/04/2024 10:51 AM EDT The [address] [address] Nuclear Medicine Report Signed Patient: JAQUELIN NORWOOD MR#: [id number] : 1940 Acct:[id number] Age/Sex: 83 / F ADM Date: 01/04/24 Loc: [place] Attending Dr: YOSSI LANDERS Ordering Physician: YOSSI LANDERS Date of Service: 01/04/24 Procedure(s): DC hepatobiliary w pharm Accession Number(s): [id number] cc: YOSSI LANDERS The [place] [address] Patient Name: JAQUELIN NORWOOD MRN: [id number] date: 1940 Sex: F Assigned Patient Location: DC Current Patient Location: DC Accession/Order Number: [id number] Exam Date: 01/04/2024 06:05 Report Date: 01/04/2024 10:48 At the request of: YOSSI LANDERS Procedure: NM hepatobiliary w pharm EXAMINATION: DC [...] Signed By: 01/04/24 1051 DD/ 1048 TD/TT: Spot Cleaner: Procedure Note Radiology, Radiologist, - 01/04/2024 [place] [address] Nuclear Medicine Report Signed Patient: JAQUELIN NORWOOD JMR#: [id number] : 2Acct:[id number] Age/Sex: 83 / FADM Date: 01/04/24 Loc: DC Attending Dr: YOSSI LANDERS Ordering Physician: YOSSI LANDERS Date of Service: 01/04/24 Procedure(s): DC hepatobiliary w pharm Accession Number(s): [id number] cc: YOSSI LANDERS [place] [address] [place], [place] [address] Patient Name: JAQUELIN NORWOOD MRN: [id number] date: 1940 Sex: F Assigned Patient Location: DC Current Patient Location: DC Accession/Order Number: [id number] Exam Date: 01/04/2024 06:05 Report Date: 01/04/2024 10:48 At the request of: YOSSI LANDERS Procedure: NM hepatobiliary w pharm EXAMINATION: DC [...] M.D. Signed By:01/04/24 1051 DD/ 1048 TD/TT: Spot Cleaner: Yossi Landers MD IMG XR PROCEDURES Final Result documented in this encounter Visit Diagnoses Not on filedocumented in this encounter Care Teams Ditch Worker Relationship Specialty Start Date End Date Yossi Landers MD [address] [place] [address] (Hyqg) PCP - General Internal Medicine 11/03/22 Yossi Landers MD [address] [facility] 110 [place] [address] PCP - Hum[employer] 11/20/22 Seble Mejia, RN [address] [place] [address] Clinical [facility] Family [facility] 07/29/24 09/09/24 Daniela Alvarado LPN [address] [address] 09/09/24 documented as of this encounter
--- OUTSIDE RECORDS SUMMARY | 2025-02-19 19:24 | XMS_ITS | Encounter Summary ---
Author Organization [facility] Address [address] [facility] [place] [address] Care Team Providers Care Ship Scaler Name Role Phone Yossi Landers MD Primary Care Provider [phone] Yossi Landers MD Unavailable [phone] Seble Mejia RN Unavailable [phone] Daniela Alvarado LPN Unavailable Encounter Details Date Type Department Care Team (Late st Contact Info) Description 12/18/2022 Abstract [facility] [place] [facility] 112 [facility] 110 [place] [address] Yossi Landers MD 112 [facility] 110 [place], [place] [address] Social History Tobacco Use Types Packs/Day Years [...] often do you attend chur ch or scientology services? Never 11/12/2022 Do you [...] 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 Not very hard 11/12/2022 [facility] [place] of Occupat ional Health - Occupational Stress [...] [address] [facility] 110 [place] [address] Yossi Landers MD [address] [facility] 110 [place] [address] documented as of this encounter Visit Diagnoses Not on filedocumented in this encounter Care Teams Ship Scaler Relationship Specialty Start Date End Date Yossi Landers MD [address] [place] [address] PCP - General Internal Medicine 11/03/22 Yossi Landers MD [address] [facility] 110 [place] [address] PCP - [employer] 11/20/22 Seble Mejia, RN [address] [place] [address] [facility] 07/29/24 09/09/24 Daniela Alvarado LPN 112 [facility] 110 [place] [address] 09/09/24 documented as of this encounter
--- OUTSIDE RECORDS SUMMARY | 2025-02-19 19:24 | XMS_ITS | Encounter Summary ---
Author Organization [facility] Address [address] [facility] [place] [address] Care Team Providers Care Breaker Hand Name Role Phone Yossi Landers MD Primary Care Provider [phone] Yossi Landers MD Unavailable [phone] Seble Mejia RN Unavailable Daniela Alvarado LPN Unavailable Encounter Details Date Type Department Care Team (Late st Contact Info) Description 03/04/2023 Abstract [facility] [place] [facility] 112 [facility] 110 [place] [address] Yossi Landers MD 112 [facility] 110 [place], [place] [address] Social History Tobacco Use Types Packs/Day Years [...] Recorded Patient Health Questionnaire-2 Score 0 02/09/2023 [facility] of Occupat ional Health [...] Visit JAYESHS [place] [address] [facility] 110 [place] [address] Yossi Landers MD [address] [place] [address] [place] [address] documented as of this encounter Visit Diagnoses Not on filedocumented in this encounter Care Teams Breaker Hand Relationship Specialty Start Date End Date Yossi Landers MD [address] [place] [address] [place] [address] PCP - General Internal Medicine 11/03/22 Yossi Landers MD [address] [place] [address] [place] [address] PCP - Hum[employer] 11/20/22 Seble Mejia, RN [address] [place] [address] [facility] 07/29/24 09/09/24 Daniela Alvarado LPN 112 [facility] 110 [place] [address] 09/09/24 documented as of this encounter
--- OUTSIDE RECORDS SUMMARY | 2025-02-19 19:24 | XMS_ITS | Encounter Summary ---
Author Organization [facility] Address [address] [place] [address] Care Team Providers Care Teacher Asst Name Role Phone Yossi Landers MD Primary Care Provider [phone] Yossi Landers MD Unavailable [phone] Seble Mejia RN Unavailable Daniela Alvarado LPN Unavailable Encounter Details Date Type Department Care Team (Late st Contact Info) Description 06/01/2023 Clinisync Result Encounter NOMS External Department Unsolicited Bel Dominique MD [address] [facility] 130 [place] [address] Social History Tobacco Use Types Packs/Day Years [...] Recorded Patient Health Questionnaire-2 Score 0 02/09/2023 [facility] [place] of Occupat ional Health - Occupational Stress [...] EDT Office Visit [facility] [place] 112 [facility] 110 [place] [address] Yossi Landers MD 112 [facility] 110 [place] [address] documented as of this encounter Procedures Procedure Name Priority Date/Time Associated Diagnosis Comments US THYROID 06/01/2023 10:38 AM EST documented in this encounter Results * US thyroid (06/01/2023 10:38 AM EST) Anatomical Region Laterality Modality Head, Neck Ultrasound 06/01/2023 10:3 8 AM EST Narrative 06/01/2023 10:40 AM EST The [address] [address] Ultrasound Report Signed Patient: Jaquelin Norwood MR#: [id number] : 1940 Acct:[id number] Age/Sex: 83 / F ADM Date: 06/01/23 Loc: US Attending Dr: Bel Dominique M.D. Ordering Physician: Bel Dominique M.D. Date of Service: 06/01/23 Procedure(s): US thyroid Accession Number(s): [id number] cc: YOSSI LANDERS ; Bel Dominique M.D. [place] [id number] Patient Name: JAQUELIN NORWOOD MRN: [id number] date: 1940 Sex: F Assigned Patient Location: US Current Patient Location: US Accession/Order Number: [id number] Exam Date: 06/01/2023 09:55 Report Date: 06/01/2023 [...] from the May 2022 exam TI-RADS: The [employer] TI-RADS committee's white paper recommendations for thyroid lesions classified as TR4 (moderately suspicious) are listed below: > 1.0 cm. Follow-up ultrasound in 1, 2, 3, and 5 years. > 1.5 cm. FNA. J. Am Nikunj Radiol 2017;14:587-595. Electronically authenticated by: CARLOS SOOD Date: 06/01/2023 10:38 Dictated By: Carlos Sood M.D. Signed By: 06/01/23 1040 DD/ 1038 TD/TT: Wheel Installer: Procedure Note Radiology, Radiologist, MD - 08/26/2023 [place] [address] Ultrasound Report Signed Patient: Jaquelin Norwood JMR#: [id number] : 1940cct:[id number] Age/Sex: 83 / FADM Date: 06/01/23 Loc: US Attending Dr: Bel Dominique M.D. Ordering Physician: Bel Dominique M.D. Date of Service: 06/01/23 Procedure(s): US thyroid Accession Number(s): [id number] cc: YOSSI LANDERS ; Bel Dominique M.D. The [place] [address] Patient Name: JAQUELIN NORWOOD MRN: [id number] date: 1940 Sex: F Assigned Patient Location: US Current Patient Location: US Accession/Order Number: [id number] Exam Date: 06/01/2023 09:55 Report Date: 06/01/2023 [...] from the May 2022 exam TI-RADS: The [employer] TI-RADS committee's white paper recommendations for thyroid lesions classified as TR4 (moderatelysuspicious) are listed below: > 1.0 cm. Follow-up ultrasound in 1, 2, 3, and 5 years. > 1.5 cm. FNA. J. Am Nikunj Radiol 2017;14:587-595. Electronically authenticated by: CARLOS SOOD Date: 06/01/2023 10:38 Dictated By: Carlos Sood M.D. Signed By:06/01/23 1040 DD/ 1038 TD/TT: Wheel Installer: us Bel Dominique MD IMG US PROCEDURES Final Resul t documented in this encounter Visit Diagnoses Not on filedocumented in this encounter Care Teams Teacher Asst Relationship Specialty Start Date End Date Yossi Landers MD [address] [facility] 110 [place] [address] PCP - General Internal Medicine 11/03/22 Yossi Landers MD [address] [facility] 110 [place] [address] PCP - [employer] 11/20/22 Seble Mejia, RN [address] [place] [address] [facility] 07/29/24 09/09/24 Daniela Alvarado LPN [address] [facility] 110 [place] [address] 09/09/24 documented as of this encounter
--- OUTSIDE RECORDS SUMMARY | 2025-02-19 19:24 | XMS_ITS | Encounter Summary ---
Author Organization [facility] Address [address] [place] [address] Care Team Providers Care Car Dispatcher Name Role Phone Yossi Landers MD Primary Care Provider [phone] Yossi Landers MD Unavailable [phone] Daniela Alvarado LPN Unavailable Encounter Details Date Type Department Care Team (Late st Contact Info) Description 11/08/2024 Abstract [facility] [place] [facility] 112 [address] [facility] 110 [place] [address] Yossi Landers MD 112 [facility] 110 [place], [place] [address] Social History Tobacco Use Types Packs/Day Years [...] How often do you attend chur or orthodoxy services? Never 11/12/2022 Do you [...] Recorded Patient Health Questionnaire-2 Score 0 11/07/2024 [facility] [place] of Occupat ional Health - Occupational Stress [...] 11:15 AM EDT Office Visit [facility] [place] [facility] [address] [facility] 110 [place] [address] Yossi Landers MD [address] [facility] [address] [place], [place] [address] documented as of this encounter Visit Diagnoses Not on filedocumented in this encounter Care Teams Car Dispatcher Relationship Specialty Start Date End Date Yossi Landers MD [address] [place] [address] PCP - General Internal Medicine 11/03/22 Yossi Landers MD [address] [facility] 110 [place] [address] PCP - [employer] 11/20/22 Daniela Alvarado LPN [address] [address] 09/09/24 documented as of this encounter
--- OUTSIDE RECORDS SUMMARY | 2025-02-19 19:24 | XMS_ITS | Encounter Summary ---
Author Organization [facility] Address [address] [facility] [place] [address] Care Team Providers Care Fire Prevention Inspector Name Role Phone Yossi Landers MD Primary Care Provider [phone] Yossi Landers MD Unavailable [phone] Seble Mejia RN Unavailable Daniela Alvarado LPN Unavailable Encounter Details Date Type Department Care Team (Late st Contact Info) Description 02/12/2023 Abstract [facility] [place] [facility] 112 [facility] 110 [place] [address] Yossi Landers MD 112 [facility] 110 [place], [place] [address] Social History Tobacco Use Types Packs/Day Years [...] Visit JAYESHS [place] [address] [facility] 110 [place] [address] Yossi Landers MD [address] [facility] 110 [place] [address] documented as of this encounter Visit Diagnoses Not on filedocumented in this encounter Care Teams Fire Prevention Inspector Relationship Specialty Start Date End Date Yossi Landers MD [address] [facility] 110 [place] [address] PCP - General Internal Medicine 11/03/22 Yossi Landers MD [address] [facility] 110 [place] [address] PCP - Hum[employer] 11/20/22 Seble Mejia, RN [address] [place] [address] Clinical [facility] 07/29/24 09/09/24 Daniela Alvarado LPN 112 [facility] 110 [place] [address] 09/09/24 documented as of this encounter
--- OUTSIDE RECORDS SUMMARY | 2025-02-19 19:24 | XMS_ITS | Encounter Summary ---
Author Organization [facility] Address [address] [facility] [place] [address] Care Team Providers Care Mold Technician Name Role Phone Yossi Landers MD Primary Care Provider [phone] Yossi Landers MD Unavailable [phone] Seble Mejia RN Unavailable [phone] Daniela Alvarado LPN Unavailable Encounter Details Date Type Department Care Team (Late st Contact Info) Description 03/27/2023 Abstract [facility] [place] [facility] 112 [facility] 110 [place] [address] Yossi Landers MD 112 [facility] 110 [place], [place] [address] Social History Tobacco Use Types Packs/Day Years [...] Recorded Patient Health Questionnaire-2 Score 0 02/09/2023 [facility] of Occupat ional Health - Occupational [...] [address] [facility] 110 [place] [address] Yossi Landers MD [address] [facility] 110 [place] [address] documented as of this encounter Visit Diagnoses Not on filedocumented in this encounter Care Teams Mold Technician Relationship Specialty Start Date End Date Yossi Landers MD [address] [facility] 110 [place] [address] PCP - General Internal Medicine 11/03/22 Yossi Landers MD [address] [facility] 110 [place] [address] PCP - Humana 11/20/22 Seble Mejia, CIPRIANO [address] [place] [address] [facility] 07/29/24 09/09/24 Daniela Alvarado LPN 112 [facility] 110 [place] [address] 09/09/24 documented as of this encounter
--- OUTSIDE RECORDS SUMMARY | 2025-02-19 19:24 | XMS_ITS | Encounter Summary ---
Author Organization [facility] Address [address] [facility] [place] [address] Care Team Providers Care Office Asst Name Role Phone Yossi Landers MD Primary Care Provider [phone] Yossi Landers MD Unavailable [phone] Seble Mejia RN Unavailable Daniela Alvarado LPN Unavailable Encounter Details Date Type Department Care Team (Late st Contact Info) Description 02/06/2023 Abstract [facility] [place] [facility] 112 [facility] 110 [place] [address] Yossi Landers MD 112 [facility] 110 [place], [place] [address] Social History Tobacco Use Types Packs/Day Years [...] [address] [facility] 110 [place] [address] Yossi Landers MD 112 [facility] 110 [place] [address] documented as of this encounter Visit Diagnoses Not on filedocumented in this encounter Care Teams Office Asst Relationship Specialty Start Date End Date Yossi Landers MD [address] [facility] 110 [place] [address] PCP - General Internal Medicine 11/03/22 Yossi Landers MD [address] [facility] 110 [place] [address] PCP - Hum[employer] 11/20/22 Seble Mejia, RN [address] [place] [address] Clinical [facility] 07/29/24 09/09/24 Daniela Alvarado LPN [address] [facility] 110 [place] [address] 09/09/24 documented as of this encounter
--- OUTSIDE RECORDS SUMMARY | 2025-02-19 19:25 | XMS_ITS | Encounter Summary ---
Author Organization [facility] Address [address] [facility] [place] [address] Care Team Providers Care Ice Hockey Coach Name Role Phone Yossi Landers MD Primary Care Provider Yossi Landers MD Unavailable [phone] Seble Mejia RN Unavailable Daniela Alvarado LPN Unavailable Encounter Details Date Type Department Care Team (Late st Contact Info) Description 12/02/2023 Abstract [facility] [place] [facility] 112 [facility] 110 [place] [address] Yossi Landers MD 112 [facility] 110 [place], [place] [address] Social History Tobacco Use Types Packs/Day Years [...] often do you attend chur ch or protestant services? Never 11/12/2022 Do you belong to [...] Recorded Patient Health Questionnaire-2 Score 0 10/12/2023 [facility] - Occupational Stress Questionnaire [...] [address] [facility] 110 [place] [address] Yossi Landers MD [address] [facility] 110 [place] [address] documented as of this encounter Visit Diagnoses Not on filedocumented in this encounter Care Teams Ice Hockey Coach Relationship Specialty Start Date End Date Yossi Landers MD [address] [facility] 110 [place] [address] PCP - General Internal Medicine 11/03/22 Yossi Landers MD [address] [facility] 110 [place] [address] PCP - Humana 11/20/22 Seble Mejia RN [address] [place] [address] Clinical [facility] 07/29/24 09/09/24 Daniela Alvarado LPN 112 [place] [address] 09/09/24 documented as of this encounter
--- OUTSIDE RECORDS SUMMARY | 2025-02-19 19:25 | XMS_ITS | Encounter Summary ---
Author Organization [facility] Address [address] [place] [address] Care Team Providers Care Sybase Developer Name Role Phone Yossi Landers MD Primary Care Provider [phone] Yossi Landers MD Unavailable [phone] Daniela Alvarado LPN Unavailable Encounter Details Date Type Department Care Team (Late st Contact Info) Description 10/10/2024 Abstract [facility] [place] [facility] 112 [facility] [facility] 110 [place] [address] Yossi Landers MD 112 [facility] 110 [place], [place] [address] Social History Tobacco Use Types Packs/Day Years [...] Recorded Patient Health Questionnaire-2 Score 0 10/07/2024 [facility] of Occupat ional Health - Occupational Stress [...] AM EDT Office Visit [facility] [place] [facility] [facility] [address] [facility] 110 [place] [address] Yossi Landers MD [address] [facility] 110 [place], [place] [address] documented as of this encounter Visit Diagnoses Not on filedocumented in this encounter Care Teams Sybase Developer Relationship Specialty Start Date End Date Yossi Landers MD [address] [place] [address] PCP - General Internal Medicine 11/03/22 Yossi Landers MD [address] [facility] 110 [place] [address] PCP - Humana 11/20/22 Daniela Alvarado LPN [address] [address] 09/09/24 documented as of this encounter
--- OUTSIDE RECORDS SUMMARY | 2025-02-19 19:25 | XMS_ITS | Encounter Summary ---
Author Organization [facility] Address [address] [place] [address] Care Team Providers Care Junior Media Buyer Name Role Phone Yossi Landers MD Primary Care Provider Yossi Landers MD Unavailable [phone] Daniela Alvarado LPN Unavailable Encounter Details Date Type Department Care Team (Late st Contact Info) Description 10/10/2024 Abstract [facility] [place] [facility] 112 [address] [facility] 110 [place] [address] Yossi Landers MD 112 [facility] 110 [place], [place] [address] Social History Tobacco Use Types Packs/Day Years [...] Recorded Patient Health Questionnaire-2 Score 0 10/07/2024 [facility] of Occupat ional Health - Occupational Stress [...] AM EDT Office Visit [facility] [place] [facility] [address] [facility] 110 [place] [address] Yossi Landers MD [address] [facility] 110 [place], [place] [address] documented as of this encounter Visit Diagnoses Not on filedocumented in this encounter Care Teams Junior Media Buyer Relationship Specialty Start Date End Date Yossi Landers MD [address] [place] [address] PCP - General Internal Medicine 11/03/22 Yossi Landers MD [address] [facility] 110 [place] [address] PCP - Humana 11/20/22 Daniela Alvarado LPN [address] [address] 09/09/24 documented as of this encounter
--- OUTSIDE RECORDS SUMMARY | 2025-02-19 19:25 | XMS_ITS | Encounter Summary ---
Author Organization [facility] Address [address] [facility] [place] [address] Care Team Providers Care Perfumer Name Role Phone Yossi Landers MD Primary Care Provider Yossi Landers MD Unavailable [phone] Seble Mejia RN Unavailable [phone] Daniela Alvarado LPN Unavailable Encounter Details Date Type Department Care Team (Late st Contact Info) Description 10/06/2023 Abstract [facility] [place] [facility] 112 [facility] 110 [place] [address] Yossi Landers MD 112 [facility] 110 [place], [place] [address] Social History Tobacco Use Types Packs/Day Years [...] any clubs o r organizations such as hinduism groups, unions, fraternal or athletic groups, or [...] Recorded Patient Health Questionnaire-2 Score 0 02/09/2023 [facility] of Occupat ional Health - Occupational [...] [facility] 110 [place] [address] Yossi Landers MD [address] [facility] 110 [place] [address] documented as of this encounter Visit Diagnoses Not on filedocumented in this encounter Care Teams Perfumer Relationship Specialty Start Date End Date Yossi Landers MD [address] [facility] 110 [place] [address] PCP - General Internal Medicine 11/03/22 Yossi Landers MD [address] [facility] 110 [place] [address] PCP - Hum[employer] 11/20/22 Seble Mejia RN [address] [place] [address] [facility] 07/29/24 09/09/24 Daniela Alvarado LPN 112 [place] [address] 09/09/24 documented as of this encounter
--- OUTSIDE RECORDS SUMMARY | 2025-02-19 19:25 | XMS_ITS | Encounter Summary ---
Author Organization [facility] Address [address] [place] [address] Care Team Providers Care Carpenter Cradle And Dolly Name Role Phone Yossi Landers MD Primary Care Provider [phone] Yossi Landers MD Unavailable [phone] Daniela Alvarado LPN Unavailable Encounter Details Date Type Department Care Team (Late st Contact Info) Description 10/10/2024 Abstract [facility] [place] [facility] 112 [address] [facility] 110 [place] [address] Yossi aLnders MD 112 [facility] 110 [place], [place] [address] Social History Tobacco Use Types Packs/Day Years [...] Recorded Patient Health Questionnaire-2 Score 0 10/07/2024 [facility] [place] of Occupat ional Health - Occupational Stress [...] AM EDT Office Visit [facility] [place] [facility] [address] [facility] 110 [place] [address] Yossi Landers MD [address] [facility] 110 [place], [place] [address] documented as of this encounter Visit Diagnoses Not on filedocumented in this encounter Care Teams Carpenter Cradle And Dolly Relationship Specialty Start Date End Date Yossi Landers MD [address] [place] [address] PCP - General Internal Medicine 11/03/22 Yossi Landers MD [address] [facility] 110 [place] [address] PCP - Hum[employer] 11/20/22 Daniela Alvarado LPN [address] [address] 09/09/24 documented as of this encounter
--- OUTSIDE RECORDS SUMMARY | 2025-02-19 19:25 | XMS_ITS | Encounter Summary ---
Author Organization [facility] Address [address] [facility] [place] [address] Care Team Providers Care Risk Management Consultant Name Role Phone Yossi Landers MD Primary Care Provider Yossi Landers MD Unavailable [phone] Seble Mejia RN Unavailable Daniela Alvarado LPN Unavailable Encounter Details Date Type Department Care Team (Late st Contact Info) Description 06/09/2023 Abstract [facility] [place] [facility] 112 [facility] 110 [place] [id number] Yossi Landers MD 112 [facility] 110 [place], [place] [address] Social History Tobacco Use Types Packs/Day Years [...] Patient Health Questionnaire-2 Score 0 02/09/2023 [facility] of Occupat ional Health - [...] [facility] 110 [place] [address] Yossi Landers MD [address] [facility] 110 [place] [address] documented as of this encounter Visit Diagnoses Not on filedocumented in this encounter Care Teams Risk Management Consultant Relationship Specialty Start Date End Date Yossi Landers MD [address] [facility] 110 [place] [address] PCP - General Internal Medicine 11/03/22 Yossi Landers MD [address] [facility] 110 [place] [address] PCP - [employer] 11/20/22 Seble Mejia, RN [address] [place] [address] Clinical Advocate Family Medicine 07/29/24 09/09/24 Daniela Alvarado LPN 112 [facility] 110 [place], [place] [address] 09/09/24 documented as of this encounter
--- OUTSIDE RECORDS SUMMARY | 2025-02-19 19:25 | XMS_ITS | Clinical Summary ---
Author Organization Kalia Krauscaren Lockhart [facility] Address [address] [facility] [facility], [address] [place] [address] Care Team Providers Care Sourcing Coordinator Name Role Phone Yossi Landers MD Primary Care Provider [phone] Encounters Date Type Department Care Team Description 01/02/2025 Abstract [facility] [address] [place] [address] [address] [place] [id number] Alla Kirby APRN - POLEYARD SUPERVISOR 01/02/2025 Abstract [facility] [address] [place] [address] [address] [place], [place] [id number] Elvin Mendez DO from Last 3 Months [...] Orientation Not on file Plan of Treatment Not on file Insurance [employer] MEDICARE Care Teams Sourcing Coordinator Relationship Specialty Start Date End Date Yossi Landers MD 112 [place] [address] PCP - General Internal Medicine 01/19/25
--- OUTSIDE RECORDS SUMMARY | 2025-02-19 19:25 | XMS_ITS | Encounter Summary ---
Author Organization [facility] Address [address] [place] [address] Care Team Providers Care Software Deployment Engineer Name Role Phone Yossi Landers MD Primary Care Provider Yossi Landers MD Unavailable [phone] Seble Mejia RN Unavailable [phone] Daniela Alvarado LPN Unavailable Encounter Details Date Type Department Care Team (Late st Contact Info) Description 01/14/2023 Abstract [facility] [place] [facility] 112 [facility] 110 [place] [phone] Yossi Landers MD 112 [facility] 110 [place], [place] [id number] Social History Tobacco Use Types Packs/Day Years [...] 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 Not very hard 11/12/2022 [facility] [place] of Occupat ional Health - Occupational Stress [...] Visit [facility] [place] [address] [facility] 110 [place] [address] Yossi Landers MD [address] [facility] 110 [place] [address] documented as of this encounter Visit Diagnoses Not on filedocumented in this encounter Care Teams Software Deployment Engineer Relationship Specialty Start Date End Date Yossi Landers MD [address] [facility] [address] [place] [address] PCP - General Internal Medicine 11/03/22 Yossi Landers MD [address] [facility] 110 [place] [address] PCP - [employer] 11/20/22 Seble Mejia, RN [address] [place] [address] Clinical [facility] Family Medicine 07/29/24 09/09/24 Daniela Alvarado LPN 112 [facility] 110 [place] [address] 09/09/24 documented as of this encounter
--- OUTSIDE RECORDS SUMMARY | 2025-02-19 19:25 | XMS_ITS | Encounter Summary ---
Author Organization [facility] Address [address] [place] [address] Phone Care Team Providers Care Assembler Utility Buildings Name Role Phone Unavailable Primary Care Provider Unavailabl e Encounter Details Date Type Department Care Team (Late st Contact Info) Description 02/10/2020 Orders Only [facility] [address] [place] [place] [address] Conversion, Onbase Social History Tobacco Use Types [...]
--- OUTSIDE RECORDS SUMMARY | 2025-02-19 19:25 | XMS_ITS | Encounter Summary ---
Author Organization [facility] Address [address] [facility] [place] [address] Care Team Providers Care Animal Caretaker Supervisor Name Role Phone Yossi Landers MD Primary Care Provider [phone] Yossi Landers MD Unavailable [phone] Seble Mejia RN Unavailable Daniela Alvarado LPN Unavailable Encounter Details Date Type Department Care Team (Late st Contact Info) Description 08/15/2024 Abstract [facility] [place] [facility] 112 [facility] 110 [place] [address] Yossi Landers MD 112 [facility] 110 [place], [place] [address] Social History Tobacco Use Types Packs/Day Years [...] How often do you attend chur or hoahaoism services? Never 11/12/2022 Do you [...] Recorded Patient Health Questionnaire-2 Score 0 07/25/2024 [facility] [place] of Occupat ional Health - Occupational Stress [...] [place] [address] [facility] 110 [place] [address] Yossi Landers MD [address] [facility] 110 [place] [address] documented as of this encounter Visit Diagnoses Not on filedocumented in this encounter Care Teams Animal Caretaker Supervisor Relationship Specialty Start Date End Date Yossi Landers MD [address] [address] PCP - General Internal Medicine 11/03/22 Yossi Landers MD [address] [facility] 110 [place] [address] PCP - [employer] 11/20/22 Seble Mejia, CIPRIANO [address] [place] [address] Clinical Advocate Family Medicine 07/29/24 09/09/24 Daniela Alvarado LPN [address] [address] 09/09/24 documented as of this encounter
--- OUTSIDE RECORDS SUMMARY | 2025-02-19 19:25 | XMS_ITS | Encounter Summary ---
Author Organization [facility] Address [address] [facility] [place] [address] Care Team Providers Care Veterinary Assistant Technician Name Role Phone Yossi Landers MD Primary Care Provider [phone] Yossi Landres MD Unavailable [phone] Seble Mejia RN Unavailable [phone] Daniela Alvarado LPN Unavailable Encounter Details Date Type Department Care Team (Late st Contact Info) Description 12/02/2023 Abstract [facility] [place] [facility] 112 [facility] 110 [place] [phone] Yossi Landers MD 112 [facility] 110 [place], [place] [address] Social History Tobacco Use Types Packs/Day Years [...] Recorded Patient Health Questionnaire-2 Score 0 10/12/2023 [facility] [...] [place] [address] [facility] 110 [place] [address] Yossi Landers MD [address] [facility] 110 [place] [address] documented as of this encounter Visit Diagnoses Not on filedocumented in this encounter Care Teams Veterinary Assistant Technician Relationship Specialty Start Date End Date Yossi Landers MD [address] [facility] 110 [place] [address] PCP - General Internal Medicine 11/03/22 Yossi Landers MD [address] [facility] 110 [place] [address] PCP - [employer] 11/20/22 Seble Mejia RN [address] [place] [address] Clinical [facility] Family [facility] 07/29/24 09/09/24 Daniela Alvarado LPN 112 [place] [address] 09/09/24 documented as of this encounter
--- OUTSIDE RECORDS SUMMARY | 2025-02-19 19:25 | XMS_ITS | Encounter Summary ---
Author Organization [facility] Address [address] [place] [place] [address] Care Team Providers Care Bottle Washer Name Role Phone Yossi Landers MD Primary Care Provider [phone] Yossi Landers MD Unavailable [phone] Seble Mejia RN Unavailable Daniela Alvarado LPN Unavailable Encounter Details Date Type Department Care Team (Late st Contact Info) Description 01/21/2023 Abstract [facility] [place] [facility] 112 [facility] 110 [place] [address] Yossi Landers MD [address] [facility] 110 [place], [place] [phone] Social History Tobacco Use Types Packs/Day Years [...] often do you attend chur ch or latter-day services? Never 11/12/2022 Do you [...] 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 Not very hard 11/12/2022 [facility] [place] of Occupat ional Health - Occupational Stress [...] [address] [facility] 110 [place] [address] Yossi Landers MD [address] [facility] 110 [place] [address] documented as of this encounter Visit Diagnoses Not on filedocumented in this encounter Care Teams Bottle Washer Relationship Specialty Start Date End Date Yossi Landers MD [address] [facility] 110 [place] [address] PCP - General Internal Medicine 11/03/22 Yossi Landers MD [address] [facility] 110 [place] [address] PCP - [employer] 11/20/22 Seble Mejia, RN [address] [place] [address] Clinical Advocate Family Medicine 07/29/24 09/09/24 Dnaiela Alvarado LPN [address] [facility] [address] [place] [address] 09/09/24 documented as of this encounter
--- OUTSIDE RECORDS SUMMARY | 2025-02-19 19:25 | XMS_ITS | Encounter Summary ---
Author Organization [facility] Address [address] [facility] [place] [address] Care Team Providers Care Camouflage Specialist Name Role Phone Yossi Landers MD Primary Care Provider [phone] Yossi Landers MD Unavailable [phone] Seble Mejia RN Unavailable Daniela Alvarado LPN Unavailable Encounter Details Date Type Department Care Team (Late st Contact Info) Description 02/08/2024 Abstract [facility] [place] [facility] 112 [facility] 110 [place] [address] Yossi Landers MD 112 [facility] 110 [place], [place] [id number] Social History Tobacco Use Types Packs/Day Years [...] How often do you attend chur or muslim services? Never 11/12/2022 Do you [...] Recorded Patient Health Questionnaire-2 Score 0 10/12/2023 [facility] [place] of Occupat ional Health - Occupational Stress [...] Visit [facility] [place] [address] [facility] 110 [place] [address] Yossi Landers MD [address] [facility] 110 [place] [address] documented as of this encounter Visit Diagnoses Not on filedocumented in this encounter Care Teams Camouflage Specialist Relationship Specialty Start Date End Date Yossi Landers MD [address] [facility] 110 [place] [address] PCP - General Internal Medicine 11/03/22 Yossi Landers MD [address] [facility] 110 [place] [address] PCP - [employer] 11/20/22 Seble Mejia, RN [address] [place] [address] Clinical Advocate Family Medicine 07/29/24 09/09/24 Daniela Alvarado LPN [address] [facility] 110 [place] [address] 09/09/24 documented as of this encounter
--- OUTSIDE RECORDS SUMMARY | 2025-02-19 19:25 | XMS_ITS | Encounter Summary ---
Author Organization [facility] Address [address] [facility] [place] [address] Care Team Providers Care Crate Tier Name Role Phone Yossi Landers MD Primary Care Provider [phone] Yossi Landers MD Unavailable [phone] Seble Mejia RN Unavailable Daniela Alvarado LPN Unavailable Encounter Details Date Type Department Care Team (Late st Contact Info) Description 11/13/2022 Abstract [facility] [place] [facility] 112 [facility] 110 [place] [phone] Yossi Landers MD 112 [facility] 110 [place], [place] [phone] Social History Tobacco Use Types Packs/Day Years [...] 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 Not very hard 11/12/2022 [facility] of Occupat ional Health - [...] WAY [facility] 110 [place] [address] Yossi Landers MD [address] [facility] 110 [place] [address] documented as of this encounter Visit Diagnoses Not on filedocumented in this encounter Care Teams Crate Tier Relationship Specialty Start Date End Date Yossi Landers MD [address] [facility] 110 [place] [address] PCP - General Internal Medicine 11/03/22 Yossi Landers MD [address] [facility] 110 [place] [address] PCP - [employer] 11/20/22 Seble Mejia, CIPRIANO [address] [place] [address] Clinical Advocate Family Medicine 07/29/24 09/09/24 Daniela Alvarado LPN 112 [facility] 110 [place] [address] 09/09/24 documented as of this encounter
--- OUTSIDE RECORDS SUMMARY | 2025-02-19 19:25 | XMS_ITS | Clinical Summary ---
Author Organization [facility] Address [address] [place] [address] Care Team Providers Care Sample Wrapper Name Role Phone Yossi Landers MD Primary Care Provider [phone] Yossi Landers MD Unavailable [phone] Daniela Alvarado LPN Unavailable Allergies Active Allergy Reactions Criticality Noted Date Comments Naproxen Swelling Medium 12/13/2020 mario oral edema Benztropine Other 11/30/2019 Benztropine Mesylate Hallucinations Medium 11/30/2019 Rofecoxib 10/26/2023 Medications meclizine (Antivert) 12.5 MG tablet Take 12.5 mg by mouth 3 (three) times a day as needed for dizziness. 09/11/19 18 Active nitroglycerin (Nitrostat) 0.4 MG SL tablet [...] the skin 1 (one) time each day. 11/06/19 23 Active glucose blood (True Metrix Blood Glucose Test) test strip 1 each by Other route 1 (one) time each day at the same time. Active Lancets (OneTouch Delica Plus [id number]) [facility] USE 1 LANCET TO TEST BLOOD SUGAR ONCE DAILY 11/06/19 23 Active nystatin (Mycostatin) ointment every 12 (twelve) hours. Active [facility] Stool Softener 100 MG capsule Take 100 mg by mouth in the morning and 100 mg before bedtime. 08/03/19 24 Active loratadine (Claritin) 10 MG tabletIndications :Allergic rhinitis, unspecified Take 1 tablet (10 mg) by mouth Daily 100 tablet 3 05/02/20 24 Active gabapentin (Neurontin) 100 MG capsuleIndication s:Type 2 diabetes mellitus with diabetic neuropathy, without long-term current use of insulin (HCC) Take 2 capsules (200 mg) by mouth in the morning and 2 capsules (200 mg) before bedtime. 360 capsule 3 07/05/19 25 026 Active polyethylene glycol, PEG, 3350 (Glycolax, Miralax) powderIndications :Constipation Take 17 g by mouth Daily as needed (constipation) 08/13/19 25 Active Fluticasone-Umecl idin-Vilant (Trelegy Ellipta) 100-62.5-25 MCG/ACT aerosol powderIndications :Panlobular emphysema (HCC) Inhale 1 puff Daily 3 each 3 08/25/19 25 Active albuterol (2.5 MG/3ML) 0.083% nebulizer solutionIndicatio ns:Panlobular emphysema (HCC) Take 3 mL (2.5 mg) by nebulization every 8 (eight) hours if needed for wheezing or shortness of breath 150 mL 5 09/30/19 25 Active calcium carbonate (Tums) 500 MG chewable tablet Chew 500 mg Daily Active memantine (Namenda) 10 MG tabletIndications :Cognitive impairment Take 1 tablet (10 mg) by mouth in the morning and 1 tablet (10 mg) before bedtime. 60 tablet 5 12/07/19 25 025 Active famotidine (Pepcid) 20 MG tabletIndications :Gastroesophageal reflux disease without esophagitis TAKE 1 TABLET BY MOUTH EVERY DAY 100 tablet 3 12/13/19 25 Active levothyroxine (Synthroid, Levoxyl) 100 MCG tabletIndications :Acquired hypothyroidism TAKE 1 TABLET EVERY MORNING BEFORE A MEAL 90 tablet 3 01/10/20 25 Active atorvastatin (Lipitor) 40 MG tabletIndications :Mixed hyperlipidemia TAKE 1 TABLET EVERY MORNING 90 tablet 3 01/10/20 25 Active lisinopril 5 MG tabletIndications :Essential hypertension TAKE 1 TABLET EVERY MORNING 90 tablet 3 01/10/20 25 Active DULoxetine (Cymbalta) [address] capsuleIndication s:Depression with anxiety TAKE 1 CAPSULE EVERY MORNING 90 capsule 3 01/10/20 25 Active carvedilol (Coreg) 12.5 MG tabletIndications :Chronic 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 180 tablet 3 01/10/20 25 Active buPROPion XL (Wellbutrin XL) 150 MG 24 hr tabletIndications :Depression with anxiety Take 1 tablet (150 mg) by mouth in the morning. Do not crush, chew, or split. 30 tablet 01/17/20 026 Active ALPRAZolam (Xanax) 0.25 MG tabletIndications :Depression with anxiety Take 1 tablet (0.25 mg) by mouth 3 (three) times a day as needed for anxiety 90 tablet 02/08/20 25 025 Active torsemide (Demadex) 10 MG tabletIndications :Chronic combined systolic and diastolic congestive heart failure (HCC) Take 2 tablets (20 mg) by mouth Daily 02/14/20 25 Active ALPRAZolam (Xanax) 0.25 MG tabletIndications :Depression with anxiety Take 1 tablet (0.25 mg) by mouth 3 (three) times a day as needed for anxiety 90 tablet 01/04/20 25 025 Discontinu ed(Reorder ) omeprazole (PriLOSEC) [address] capsuleIndication s:Gastroesophagea l reflux disease without esophagitis TAKE 1 CAPSULE EVERY MORNING BEFORE A MEAL 90 capsule 3 01/10/20 25 025 Discontinu ed(Other) predniSONE (Deltasone) 10 MG tablet 01/12/20 25 025 Discontinu ed(Other) torsemide (Demadex) 10 MG tabletIndications :Edema Take 1.5 tablets (15 mg) by mouth Daily 45 tablet 11 01/17/20 25 025 Discontinu ed(Therapy completed) amoxicillin-clavu lanate (Augmentin) 875-125 MG tablet 01/22/20 25 025 Discontinu ed(Other) azithromycin (Zithromax) 250 MG tablet 01/22/20 25 025 Discontinu ed(Other) methylPREDNISolon e (Medrol Dospak) 4 MG tabletsIndication s:COPD exacerbation (HCC) Follow schedule on package instructions 21 tablet 01/26/20 25 025 torsemide (Demadex) 10 MG tablet Take 15 mg by mouth Daily 025 Discontinu ed(Reorder ) Active Problems Problem Noted Date Diagnosed Date History of gastric surgery 01/18/2025 Bilateral lower extremity edema 10/07/2024 Dehydration 10/03/2024 Contusion of left knee 10/03/2024 Adjustment disorder with depressed mood 10/04/19 Nausea 09/29/2024 Symptomatic cholelithiasis 01/20/2024 Sore throat [...] Encounters Date Type Department Care Team Description 02/15/2025 Patient Outreach [facility] [address] [place] [address] Daniela Alvarado LPN 02/14/2025 Abstract [facility] [address] [facility] [address] [place] [phone] Yossi Landers MD 02/13/2025 Patient Outreach [facility] [address] [place] [address] Daniela Alvarado LPN 02/09/2025 Telephone [facility] [address] [facility] [address] [place] [phone] Yossi Landers MD 02/07/2025 Patient Outreach [facility] [address] [place] [address] Daniela Alvarado LPN 02/06/2025 Refill [facility] [address] [place] [address] [place] [address] Salud Roach PA Depression with anxiety 01/31/2025 Abstract [facility] [address] [place] [address] [place] [address] Yossi Landers MD 01/31/2025 Abstract [facility] [address] [place] [address] [place] [address] Yossi Landers MD 01/30/2025 2:15 PM EDT Office Visit [facility] [address] [place] [address] [place] [address] Yossi Landers MD COPD exacerbation (HCC) (Primary Dx); Panlobular emphysema (HCC); Depression with anxiety 01/30/2025 Travel 01/30/2025 Patient Outreach [facility] [place] [address] Daniela Alvarado LPN 01/26/2025 Telephone [facility] [address] [place] [address] [place] [address] Salud Roach PA 01/26/2025 Abstract [facility] [address] [place] [address] [place] [address] Yossi Landers MD 01/25/2025 11:30 AM EDT Office Visit [facility] [address] [place] [address] [place] [address] Yossi Landers MD COPD exacerbation (HCC) (Primary Dx); Pneumonia of both lower lobes due to infectious organism 01/25/2025 Travel 01/23/2025 Abstract [facility] [address] [place] [address] [place] [address] Yossi Landers MD 01/23/2025 Abstract [facility] [address] [place] [address] [place] [address] Yossi Landers MD 01/23/2025 Abstract [facility] [address] [place] [address] [place] [address] Yossi Landers MD 01/23/2025 Abstract [facility] [address] [place] [address] [place] [address] Yossi Landers MD 01/23/2025 Patient Outreach [facility] [address] [place] [address] Daniela Alvarado MIDWIFE PRACTITIONER 01/23/2025 Abstract [facility] [address] [place] [address] Daniela Alvarado MIDWIFE PRACTITIONER 01/19/2025 Abstract [facility] [address] [place] [address] [place] [address] Yossi Landers MD 01/19/2025 Abstract [facility] [address] [place] [address] [place] [address] Yossi Landers MD 01/19/2025 Abstract [facility] [address] [place] [address] [place] [address] Yossi Landers MD 01/19/2025 Abstract [facility] [address] [place] [address] [place] [address] Yossi Landers MD 01/19/2025 Abstract [facility] [address] [place] [address] [place] [address] Yossi Landers MD 01/19/2025 Abstract [facility] [address] [place] [address] [place] [address] Yossi Landers MD 01/19/2025 Abstract [facility] [address] [place] [address] [place] [address] Yossi Landers MD 01/19/2025 Abstract [facility] [address] [place] [address] [place] [address] Yossi Landers MD 01/19/2025 Abstract [facility] [address] [place] [address] [place] [address] Yossi Landers MD 01/19/2025 Abstract [facility] [address] [place] [address] [place] [address] Yossi Landers MD 01/19/2025 Patient Outreach [facility] [address] [place] [address] Daniela Alvarado MIDWIFE PRACTITIONER 01/19/2025 Abstract [facility] [address] [place] [address] Daniela Alvarado MIDWIFE PRACTITIONER 01/19/2025 Telephone [facility] [address] [place] [address] [place] [address] Yossi Landers MD ER Follow-up 01/16/2025 11:30 AM EDT Office Visit [facility] [address] [place] [address] [place] [address] Yossi Landers MD Panlobular emphysema (HCC) (Primary Dx); Depression with anxiety; Acute on chronic diastolic congestive heart failure (HCC); Chronic combined systolic and diastolic congestive heart failure (HCC) 01/16/2025 Bamboo flowsheet [facility] [address] [place] [address] [place] [address] Yossi Landers MD 01/16/2025 Travel 01/12/2025 Abstract [facility] [address] [place] [address] Daniela Alvarado MIDWIFE PRACTITIONER 01/12/2025 Patient Outreach [facility] [address] [place] [address] Daniela Alvarado MIDWIFE PRACTITIONER 01/10/2025 Telephone [facility] [address] [place] [address] [place] [address] Yossi Landers MD 01/09/2025 10:00 AM EDT Office Visit [facility] [address] [place] [address] [place] [address] Yossi Landers MD Acute on chronic combined systolic and diastolic heart failure (HCC) (Primary Dx); Panlobular emphysema (HCC); Other specified hypotension; Unspecified dementia, unspecified severity, without behavioral disturbance, psychotic disturbance, mood disturbance, and anxiety (HCC) 01/09/2025 [facility] [address] [facility] [address] [place] [address] Yossi Landers MD 01/09/2025 Travel 01/08/2025 [facility]ill [facility] [address] [facility] [address] [place] [address] Yossi Landers MD Acquired hypothyroidism ; Gastroesophageal reflux disease without esophagitis; Mixed hyperlipidemia ; Essential hypertension ; Depression with anxiety; Chronic combined systolic and diastolic congestive heart failure (HCC) 01/03/2025 Refill [facility] [place] [facility] 112 [facility] [address] [place] [address] Yossi Landers MD Depression with anxiety 12/30/2024 Abstract [facility] [address] [place] [address] [place] [address] Demario Spivey, 12/29/2024 2:30 PM EDT Office Visit [facility] [place] [address] Yen Auguste PA Vaginal discomfort 12/29/2024 Telephone [facility] [place] [address] Janey Barry, MIDWIFE PRACTITIONER 12/29/2024 Bamboo flowsheet [facility] [address] [facility] [place] [address] Yen Auguste PA 12/19/2024 Patient Outreach [facility] [address] [place] [address] Daniela Alvarado, MIDWIFE PRACTITIONER 12/12/2024 [facility] [address] [facility] [address] [place] [address] Salud Roach PA Gastroesophageal reflux disease without esophagitis 12/05/2024 Refill [facility] [address] [place] [address] [place] [address] Yossi Landers MD Cognitive impairment 12/03/2024 Refill [facility] [address] [place] [address] [place] [address] Yossi Landers MD Depression with anxiety; Degenerative lumbar spinal stenosis 11/29/2024 Refill [facility] [address] [place] [address] [place] [address] Yossi Landers MD Cognitive impairment from Last 3 Months Immunizations Immunization Administration Dates Next Due Pneumococcal Conjugate PCV 13 04/22/2018 Pneumococcal Conjugate PCV 20 01/10/2025 Zoster, live 11/28/2015,01/10/2015 Family History Medical History [...] Date Recorded Patient Health Questionnaire-2 Score 0 01/30/2025 [facility] - Occupational Stress Questionnaire Answer Date [...] Sign Reading Time Taken Comments Blood Pressure 112/64 01/30/2025 2:05 PM EDT Pulse 88 01/30/2025 2:05 PM EDT Temperature 36.1 C (96.9 F) 01/30/2025 2:05 PM EDT Respiratory Rate 17 01/09/2025 9:55 AM EDT Oxygen Saturation 97% 01/30/2025 2:05 PM EDT Inhaled Oxygen Concentration - - Weight 83.9 kg (185 lb) 01/30/2025 2:05 PM EDT Height 165.1 cm (5' 5 ) 01/30/2025 2:05 PM EDT Body Mass Index 30.79 01/30/2025 2:05 PM EDT Plan of Treatment Upcoming Encounters Date Type Department Care Team (Late st Contact Info) Description 02/23/2025 11:15 AM EDT Office Visit [facility] [place] [facility] [address] [facility] [address] [place] [address] Yossi Landers MD 112 [facility] 110 [place] [address] Health Maintenance Due Date Last Done Comments Diabetes: Retinopathy Screening 07/30/2020 9, 04/22/2018 Diabetes: Hemoglobin A1C 12/08/2024 025, 05/02/2024, 12/14/2023, Additional history exists Diabetes: Urine Protein Screening 01/27/2025 024 Influenza Vaccine (#1) 2025 Pneumococcal Vaccine: 65+ Years Completed 5, 04/22/2018 Procedures Procedure Name Priority Date/Time Associated [...] 01/29/2024 12:29 PM EDT SPLIT 01/20/2024 FROM [id number] Resulting Agency Comment Performing Organization Information Site ID: QPT Name: [facility] Address: [address] [place] [address], [address] [place] [id number] Director: Angel Conway MD us Yossi Landers MD LAB URINE ORDERABLES Final Res ult [facility] * Color Fundus Photography - OU - Both Eyes (07/30/2018 12:00 PM EST) Anatomical Region Laterality Modality Head Fundus Photograp hy 07/30/2018 12:0 0 PM EST Narrative 07/30/2018 12:00 PM EST PERFORMED AT [facility] LOCATION:[id number] No retinopathy Procedure Note CONVERSION, GENERIC - 11/05/2022 PERFORMED AT [facility] LOCATION:[id number] No retinopathy us Yossi Landers MD OPHTH PHOTOGRAPHY Final Result from Last 3 Months or Most Recently Relevant to Health Maintenance Insurance [facility] MEDICARE ADVANTAGE Care Teams Sample Wrapper Relationship Specialty Start Date End Date Yossi Landers MD [address] [facility] [address] [place] [address] PCP - General Internal Medicine 11/03/22 Yossi Landers MD [address] [facility] [address] [place] [address] PCP - [employer] 11/20/22 Daniela Alvarado LPN [address] [address] 09/09/24
--- OUTSIDE RECORDS SUMMARY | 2025-02-19 19:25 | XMS_ITS | Encounter Summary ---
Author Organization [facility] Address [address] [facility] [place] [address] Care Team Providers Care Podiatric Physician Name Role Phone Yossi Landers MD Primary Care Provider Yossi Landers MD Unavailable [phone] Seble Mejia RN Unavailable Daniela Alvarado LPN Unavailable Encounter Details Date Type Department Care Team (Late st Contact Info) Description 01/14/2023 Abstract [facility] [address] [facility] 110 [place] [address] Yossi Landers MD 112 [facility] 110 [place], [place] [id number] Social History Tobacco Use Types Packs/Day Years [...] 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 Not very hard 11/12/2022 [facility] of Occupat ional Health - Occupational [...] WAY [facility] [address] [place] [address] Yossi Landers MD [address] [facility] [address] [place] [address] documented as of this encounter Visit Diagnoses Not on filedocumented in this encounter Care Teams Podiatric Physician Relationship Specialty Start Date End Date Yossi Landers MD [address] [facility] [address] [place] [address] PCP - General Internal Medicine 11/03/22 Yossi Landers MD [address] [facility] [address] [place] [address] PCP - [employer] 11/20/22 Seble Mejia, RN [address] [place] [address] Clinical Advocate Family Medicine 07/29/24 09/09/24 Daniela Alvarado LPN 112 [facility] 110 [place] [address] 09/09/24 documented as of this encounter
--- OUTSIDE RECORDS SUMMARY | 2025-02-19 19:25 | XMS_ITS | Encounter Summary ---
Author Organization [facility] Address [address] [facility] [place] [address] Care Team Providers Care Home Demonstrator Name Role Phone Yossi Landers MD Primary Care Provider Yossi Landers MD Unavailable [phone] Seble Mejia RN Unavailable Daniela Alvarado LPN Unavailable Encounter Details Date Type Department Care Team (Late st Contact Info) Description 08/05/2023 Abstract [facility] [place] [facility] [address] [facility] 110 [place] [phone] Yossi Landers MD 112 [facility] 110 [place], [place] [id number] Social History Tobacco Use Types Packs/Day Years [...] Patient Health Questionnaire-2 Score 0 02/09/2023 [facility] of Occupat ional Health - Occupational [...] [facility] [place] [address] [facility] 110 [place] [address] Yossi Landers MD [address] [facility] 110 [place] [address] documented as of this encounter Visit Diagnoses Not on filedocumented in this encounter Care Teams Home Demonstrator Relationship Specialty Start Date End Date Yossi Landers MD [address] [facility] [address] [place] [address] PCP - General Internal Medicine 11/03/22 Yossi Landers MD [address] [facility] [address] [place] [address] PCP - [employer] 11/20/22 Seble Mejia RN [address] [place] [address] [facility] 07/29/24 09/09/24 Daniela Alvarado LPN 112 [place] [address] 09/09/24 documented as of this encounter
--- OUTSIDE RECORDS SUMMARY | 2025-02-19 19:25 | XMS_ITS | Encounter Summary ---
Author Organization [facility] Address [address] [facility] [place] [address] Care Team Providers Care Appraiser Irrigation Tax Name Role Phone Yossi Landers MD Primary Care Provider [phone] Yossi Landers MD Unavailable [phone] Daniela Alvarado LPN Unavailable Encounter Details Date Type Department Care Team (Late st Contact Info) Description 12/30/2024 Abstract [facility] [address] [place] [address] Demario Spivey DO [address] [facility] [address] Chinmay Frey, [id number] Social History Tobacco Use Types Packs/Day Years [...] Recorded Patient Health Questionnaire-2 Score 0 11/07/2024 [facility] [place] of Occupat ional Health - Occupational Stress [...] [place] [address] [facility] [address] [place] [address] Yossi Landers MD [address] [facility] [place] [address] documented as of this encounter Visit Diagnoses Not on filedocumented in this encounter Care Teams Appraiser Irrigation Tax Relationship Specialty Start Date End Date Yossi Landers MD [address] [facility] [place] [address] PCP - General Internal Medicine 11/03/22 Yossi Landers MD [address] [facility] 110 [place] [address] PCP - [employer] 11/20/22 Daniela Alvarado LPN [address] [address] 09/09/24 documented as of this encounter
--- OUTSIDE RECORDS SUMMARY | 2025-02-19 19:25 | XMS_ITS | Encounter Summary ---
Author Organization [facility] Address [address] [facility] [place] [address] Care Team Providers Care Furniture Maker Name Role Phone Yossi Landers MD Primary Care Provider [phone] Yossi Landers MD Unavailable [phone] Seble Mejia RN Unavailable Daniela Alvarado LPN Unavailable Encounter Details Date Type Department Care Team (Late st Contact Info) Description 08/27/2023 Abstract [facility] [place] [facility] 112 [facility] 110 [place] [address] Yossi Landers MD 112 [facility] 110 [place], [place] [phone] Social History Tobacco Use Types Packs/Day Years [...] Recorded Patient Health Questionnaire-2 Score 0 02/09/2023 [facility] of Occupat ional Health - [...] [address] [facility] 110 [place] [address] Yossi Landers MD [address] [facility] 110 [place] [address] documented as of this encounter Visit Diagnoses Not on filedocumented in this encounter Care Teams Furniture Maker Relationship Specialty Start Date End Date Yossi Landers MD [address] [facility] 110 [place] [address] PCP - General Internal Medicine 11/03/22 Yossi Landers MD [address] [facility] [address] [place] [address] PCP - [employer] 11/20/22 Seble Mejia RN [address] [place] [address] Clinical [facility] 07/29/24 09/09/24 Daniela Alvarado LPN 112 [place] [address] 09/09/24 documented as of this encounter
--- OUTSIDE RECORDS SUMMARY | 2025-02-19 19:25 | XMS_ITS | Encounter Summary ---
Author Organization [facility] Address [address] [place] [address] Care Team Providers Care Sand Mill Operator Name Role Phone Yossi Landers MD Primary Care Provider [phone] Yossi Landers MD Unavailable [phone] Seble Mejia RN Unavailable Daniela Alvarado LPN Unavailable Encounter Details Date Type Department Care Team (Late st Contact Info) Description 08/19/2023 Abstract [facility] [place] [facility] 112 [facility] 110 [place] [address] Yossi Landers MD 112 [facility] 110 [place], [place] [id number] Social History Tobacco Use Types Packs/Day Years [...] often do you attend chur ch or faith services? Never 11/12/2022 Do you [...] [facility]at ional Health - [...] Visit [facility] [place] [address] [facility] 110 [place] [address] Yossi Landers MD [address] [facility] 110 [place] [address] documented as of this encounter Visit Diagnoses Not on filedocumented in this encounter Care Teams Sand Mill Operator Relationship Specialty Start Date End Date Yossi Landers MD [address] [facility] 110 [place] [address] PCP - General Internal Medicine 11/03/22 Yossi Landers MD [address] [facility] 110 [place] [address] PCP - [employer] 11/20/22 Seble Mejia RN [address] [place] [address] [facility] 07/29/24 09/09/24 Daniela Alvarado LPN 112 [place] [address] 09/09/24 documented as of this encounter
--- OUTSIDE RECORDS SUMMARY | 2025-02-19 19:25 | XMS_ITS | Encounter Summary ---
Author Organization [facility] Address [address] [place] [address] Care Team Providers Care Butter Liquefier Name Role Phone Yossi Landers MD Primary Care Provider Yossi Landers MD Unavailable [phone] Seble Mejia RN Unavailable Daniela Alvarado LPN Unavailable Encounter Details Date Type Department Care Team (Late st Contact Info) Description 10/01/2023 Abstract [facility] [place] [facility] 112 [facility] 110 [place] [address] Yossi Landers MD 112 [facility] 110 [place], [place] [id number] Social History Tobacco Use Types Packs/Day Years [...] Recorded Patient Health Questionnaire-2 Score 0 02/09/2023 [facility] of Occupat ional Health - Occupational [...] [address] [facility] 110 [place] [address] Yossi Landers MD [address] [facility] [address] [place] [address] documented as of this encounter Visit Diagnoses Not on filedocumented in this encounter Care Teams Butter Liquefier Relationship Specialty Start Date End Date Yossi Landers MD [address] [facility] 110 [place] [address] PCP - General Internal Medicine 11/03/22 Yossi Landers MD [address] [facility] 110 [place] [address] PCP - [employer] 11/20/22 Seble Mejia RN [address] [place] [address] Clinical [facility] 07/29/24 09/09/24 Daniela Alvarado LPN 112 [place] [address] 09/09/24 documented as of this encounter
--- OUTSIDE RECORDS SUMMARY | 2025-02-19 19:25 | XMS_ITS | Encounter Summary ---
Author Organization [facility] Address [address] [facility] [place] [address] Care Team Providers Care Teacher Hearing Impaired Name Role Phone Yossi Landers MD Primary Care Provider [phone] Yossi Landers MD Unavailable [phone] Seble Mejia RN Unavailable Daniela Alvarado LPN Unavailable Encounter Details Date Type Department Care Team (Late st Contact Info) Description 02/08/2024 Abstract [facility] [place] [facility] 112 [facility] 110 [place] [address] Yossi Landers MD 112 [facility] 110 [place], [place] [id number] Social History Tobacco Use Types Packs/Day Years [...] How often do you attend chur or shinto services? Never 11/12/2022 Do you belong to any clubs o r organizations such as synagogue groups, unions, fraternal or athletic groups, or [...] Recorded Patient Health Questionnaire-2 Score 0 10/12/2023 [facility] of Occupat ional Health - [...] Visit [facility] [place] [address] [facility] 110 [place] [address] Yossi Landers MD [address] [facility] 110 [place] [address] documented as of this encounter Visit Diagnoses Not on filedocumented in this encounter Care Teams Teacher Hearing Impaired Relationship Specialty Start Date End Date Yossi Landers MD [address] [facility] 110 [place] [address] PCP - General Internal Medicine 11/03/22 Yossi Landers MD [address] [facility] 110 [place] [address] PCP - [employer] 11/20/22 Seble Mejia, RN [address] [place] [address] Clinical [facility] Family [facility] 07/29/24 09/09/24 Daniela Alvarado LPN [address] [facility] 110 [place] [address] 09/09/24 documented as of this encounter
--- OUTSIDE RECORDS SUMMARY | 2025-02-19 19:25 | XMS_ITS | Encounter Summary ---
Author Organization [facility] Address [address] [place] [address] Care Team Providers Care Tie Up Worker Name Role Phone Yossi Landers MD Primary Care Provider [phone] Yossi Landers MD Unavailable [phone] Seble Mejia RN Unavailable Daniela Alvarado LPN Unavailable Encounter Details Date Type Department Care Team (Late st Contact Info) Description 08/05/2023 Orders Only [facility] [place] [facility] [address] [facility] 110 [place] [address] A, Unknown Practice [address] [place] [address] Social History Tobacco Use Types [...] often do you attend chur ch or lutheran services? Never 11/12/2022 Do you [...] EDT Office Visit [facility] [place] 112 [facility] 110 [place] [address] Yossi Landers MD 112 [facility] 110 [place] [address] documented as of this encounter Procedures Procedure [...] on filedocumented in this encounter Care Teams Tie Up Worker Relationship Specialty Start Date End Date Yossi Landers MD [address] [facility] 110 [place] [address] PCP - General Internal Medicine 11/03/22 Yossi Landers MD [address] [facility] 110 [place] [address] PCP - [employer] 11/20/22 Seble Mejia, RN [address] [place] [address] Clinical Advocate Family Medicine 07/29/24 09/09/24 Daniela Alvarado LPN [address] [address] 09/09/24 documented as of this encounter
--- OUTSIDE RECORDS SUMMARY | 2025-02-19 19:25 | XMS_ITS | Encounter Summary ---
Author Organization [facility] Address [address] [facility] [place] [address] Care Team Providers Care Oil Speculator Name Role Phone Yossi Landers MD Primary Care Provider Yossi Landers MD Unavailable [phone] Seble Mejia RN Unavailable [phone] Daniela Alvarado LPN Unavailable Encounter Details Date Type Department Care Team (Late st Contact Info) Description 12/02/2023 Abstract [facility] [place] [facility] 112 [facility] 110 [place] [address] Yossi Landers MD 112 [facility] 110 [place], [place] [address] Social History Tobacco Use Types Packs/Day Years [...] any clubs o r organizations such as scientologist groups, unions, fraternal or athletic groups, or [...] Recorded Patient Health Questionnaire-2 Score 0 10/12/2023 [facility] [...] [facility] 110 [place] [address] Yossi Landers MD [address] [facility] 110 [place] [address] documented as of this encounter Visit Diagnoses Not on filedocumented in this encounter Care Teams Oil Speculator Relationship Specialty Start Date End Date Yossi Landers MD [address] [facility] 110 [place] [address] PCP - General Internal Medicine 11/03/22 Yossi Landers MD [address] [facility] 110 [place] [address] PCP - [employer] 11/20/22 Seble Mejia RN [address] [place] [address] Clinical [facility] Family [facility] 07/29/24 09/09/24 Daniela Alvarado LPN 112 [place] [address] 09/09/24 documented as of this encounter
--- OUTSIDE RECORDS SUMMARY | 2025-02-19 19:25 | XMS_ITS | Encounter Summary ---
Author Organization [facility] Address [address] [facility] [place] [address] Care Team Providers Care Bladder Blower Name Role Phone Yossi Landers MD Primary Care Provider Yossi Landers MD Unavailable [phone] Seble Mejia RN Unavailable [phone] Daniela Alvarado LPN Unavailable Encounter Details Date Type Department Care Team (Late st Contact Info) Description 08/12/2023 Abstract [facility] [place] [facility] 112 [facility] 110 [place] [address] Yossi Landers MD 112 [facility] 110 [place], [place] [id number] Social History Tobacco Use Types Packs/Day Years [...] Visit [facility] [place] [address] [facility] 110 [place] [address] Yossi Landers MD [address] [facility] 110 [place] [address] documented as of this encounter Visit Diagnoses Not on filedocumented in this encounter Care Teams Bladder Blower Relationship Specialty Start Date End Date Yossi Landers MD [address] [facility] 110 [place] [address] PCP - General Internal Medicine 11/03/22 Yossi Landers MD [address] [facility] 110 [place] [address] PCP - [employer] 11/20/22 Seble Mejia RN [address] [place] [address] Clinical [facility] Family [facility] 07/29/24 09/09/24 Daniela Alvarado LPN 112 [place] [address] 09/09/24 documented as of this encounter
--- OUTSIDE RECORDS SUMMARY | 2025-02-19 19:25 | XMS_ITS | Encounter Summary ---
Author Organization [facility] Address [address] [facility] [place] [address] Care Team Providers Care Process Chemist Name Role Phone Yossi Landers MD Primary Care Provider [phone] Yossi Landers MD Unavailable [phone] Seble Mejia RN Unavailable [phone] Daniela Alvarado LPN Unavailable Encounter Details Date Type Department Care Team (Late st Contact Info) Description 08/19/2023 Abstract [facility] [place] [facility] 112 [facility] 110 [place] [address] Yossi Landers MD 112 [facility] 110 [place], [place] [address] Social History Tobacco Use Types Packs/Day Years [...] Recorded Patient Health Questionnaire-2 Score 0 02/09/2023 [facility] of Occupat ional Health - [...] Visit [facility] [place] [address] [facility] 110 [place] [address] Yossi Landers MD [address] [facility] 110 [place] [address] documented as of this encounter Visit Diagnoses Not on filedocumented in this encounter Care Teams Process Chemist Relationship Specialty Start Date End Date Yossi Landers MD [address] [facility] 110 [place] [address] PCP - General Internal Medicine 11/03/22 Yossi Landers MD [address] [facility] 110 [place] [address] PCP - [employer] 11/20/22 Seble Mejia RN [address] [place] [address] Clinical [facility] Family [facility] 07/29/24 09/09/24 Daniela Alvarado LPN 112 [place] [address] 09/09/24 documented as of this encounter
--- OUTSIDE RECORDS SUMMARY | 2025-02-19 19:25 | XMS_ITS | Encounter Summary ---
Author Organization [facility] Address [address] [place] [address] Care Team Providers Care Biomass Plant Technician Name Role Phone Yossi Landers MD Primary Care Provider [phone] Yossi Landers MD Unavailable [phone] Seble Mejia RN Unavailable Daniela Alvarado LPN Unavailable Encounter Details Date Type Department Care Team (Late st Contact Info) Description 05/27/2024 Clinisync Result Encounter N[facility] External Department Unsolicited Yossi Landers MD [address] [facility] 110 [place] [address] Social History Tobacco Use Types Packs/Day Years [...] week 11/12/2022 How often do you attend [facility] or nondenominational services? Never 11/12/2022 Do you [...] AM EDT Office Visit [facility] [place] [facility] [address] [facility] 110 [place] [address] Yossi Landers MD [address] [facility] 110 [place] [address] documented as of this encounter Procedures Procedure Name Priority Date/Time Associated Diagnosis Comments CA ECHO DOPPLER COMPLETE 05/27/2024 6:01 PM EST documented in this encounter Results * CA ECHO DOPPLER COMPLETE (05/27/2024 6:01 PM EST) Anatomical Region Laterality Modality Other 05/27/2024 6:01 PM EST Narrative 05/27/2024 6:02 PM EST [address] [address] Cardiology Report Signed Patient: JAQUELIN NORWOOD MR#: [id number] : 1940 Acct:[id number] Age/Sex: 84 / F ADM Date: 05/27/24 Loc: CARD Attending Dr: YOSSI LANDERS Ordering Physician: YOSSI LANDERS Date of Service: 05/27/24 Procedure(s): CA echo doppler complete Accession Number(s): [id number] cc: JORDANMATTHEWYOSSI Patient Name: JAQUELIN NORWOOD MR#: [id number] : 1940 Exam Date: 05/27/2024 Ordering Doctor: [...] M.D. Signed By: 05/27/241801 DD/ 00 TD/TT: Repairer [employer]: Procedure Note Radiology, Radiologist, - 05/27/2024 [place] [address] Cardiology Report Signed Patient: JAQUELIN NORWOOD JMR#: [id number] : 1940cct:[id number] Age/Sex: 84 / FADM Date: 05/27/24 Loc: CARD Attending Dr: YOSSI LANDERS Ordering Physician: YOSSI LANDERS Date of Service: 05/27/24 Procedure(s): CA echo doppler complete Accession Number(s): [id number] cc: JORDANMATTHEWYOSSI Patient Name: JAQUELIN NORWOOD MR#: [id number] : 1940 Exam Date: 05/27/2024 Ordering Doctor: [...] Olivares M.D. Signed By:05/27/241801 DD/ 00 TD/TT: Repairer [employer]: us Yossi Landers MD [facility] Final Result documented in this encounter Visit Diagnoses Not on filedocumented in this encounter Care Teams Biomass Plant Technician Relationship Specialty Start Date End Date Yossi Landers MD [address] [facility] 110 [place] [address] PCP - General Internal Medicine 11/03/22 Yossi Landers MD [address] [facility] 110 [place] [address] PCP - [employer] 11/20/22 Seble Mejia, CIPRIANO [address] [place] [address] Clinical Advocate Family Medicine 07/29/24 09/09/24 Daniela Alvarado LPN [address] [facility] 110 [place] [address] 09/09/24 documented as of this encounter
--- OUTSIDE RECORDS SUMMARY | 2025-02-19 19:25 | XMS_ITS | Clinical Summary ---
Author Organization [facility] Address [address] [place] [address] Phone Care Team Providers Care Mold Finisher Name Role Phone Unavailable Primary Care Provider [...]
--- OUTSIDE RECORDS SUMMARY | 2025-02-19 19:25 | XMS_ITS | Encounter Summary ---
Author Organization [facility] Address [address] [place] [address] Phone Care Team Providers Care Sole Leveler Name Role Phone Unavailable Primary Care Provider Unavailabl e Encounter Details Date Type Department Care Team (Late st Contact Info) Description 02/24/2020 Orders Only [facility] [address] [place] [place] [address] Conversion, Onbase Social History Tobacco Use Types [...]
--- OUTSIDE RECORDS SUMMARY | 2025-02-19 19:25 | XMS_ITS | Encounter Summary ---
Author Organization [facility] Address [address] [facility] [place] [address] Care Team Providers Care Lead Software Developer Name Role Phone Yossi Landers MD Primary Care Provider Yossi Landers MD Unavailable [phone] Seble Mejia RN Unavailable Daniela Alvarado LPN Unavailable Encounter Details Date Type Department Care Team (Late st Contact Info) Description 10/13/2023 Abstract [facility] [place] [facility] 112 [facility] 110 [place] [address] Yossi Landers MD 112 [facility] 110 [place], [place] [address] Social History Tobacco Use Types Packs/Day Years [...] Recorded Patient Health Questionnaire-2 Score 0 10/12/2023 [facility] - Occupational Stress Questionnaire [...] [address] [facility] 110 [place] [address] Yossi Landers MD [address] [facility] 110 [place] [address] documented as of this encounter Visit Diagnoses Not on filedocumented in this encounter Care Teams Lead Software Developer Relationship Specialty Start Date End Date Yossi Landers MD [address] [facility] 110 [place] [address] PCP - General Internal Medicine 11/03/22 Yossi Landers MD [address] [facility] 110 [place] [address] PCP - [employer] 11/20/22 Seble Mejia RN [address] [place] [address] Clinical [facility] 07/29/24 09/09/24 Daniela Alvarado LPN 112 [place] [address] 09/09/24 documented as of this encounter
--- OUTSIDE RECORDS SUMMARY | 2025-02-19 19:25 | XMS_ITS | CCD ---
Author Organization [facility] Care Team Providers Care Certified Alcohol Counselor Name Role Phone Unavailable Unavailable Libra, Dr. [...] SANCHEZ Consulting Unavailable ALLISON MCCALL Consulting Unavailable CAILIN, DR TERRAZAS Consulting Unavailable CAILIN, DR TERRAZAS Primary Care Unavailable CAILIN, DR TERRAZAS Attending Unavailable CAILIN, DR TERRAZAS Admitting Unavailable ZIEBER, DR AMAYA Cleveland Consulting Unavailable CAILIN, DR TERRAZAS Consulting Unavailable CAILIN, DR TERRAZAS Primary Care Unavailable CAILIN, DR TERRAZAS Attending Unavailable CAILIN, DR TERRAAZS Admitting Unavailable BARRIE, DR CARLOS Mcghee Consulting Unavailable ISIAHSBEL Consulting Unavailable CAILIN, DR TERRAZAS Primary Care Unavailable SANJEEVMISBEL Attending Unavailable TIMMIS, BEL Admitting Unavailable ZIEBER, DR AMAYA Cleveland Consulting Unavailable TIMRUDYSBEL Consulting Unavailable CAILIN, DR TERRAZAS Primary Care [...] Unavailable Yossi Landers MD Primary Care Provider [phone] Yossi Landers MD Unavailable YOSSI LANDERS Primary Care Physician Mandi Glez Attending Unavailable Mouchli Mohamad A. Referring Unavailable Mouchli Mohamad A. Admitting Unavailable Mouchli Mohamad A. Attending Unavailable Mouchjalen Mohamad A. Admitting Unavailable Mouchli Mohamad AAjith Attending Unavailable Ellen Glezamad AAjith Referring Unavailable Roberto COTA, Seble Unavailable Yossi Landers II Primary Care Provider Elmer Greene DO Attending Provider [phone] [place] [facility] NURSE, Daniela Unavailable Unavailable Yossi Landers II Primary Care Provider [phone] Elmer Greene DO Attending Provider Elías Graham MD Attending Provider [phone] Elmer Greene Attending Unavailable Elmer Greene Admitting Unavailable Yossi Landers Primary Care Unavailable Elías Graham Attending Unavailable Elías Graham Admitting Unavailable [place] [facility] NURSE, Daniela Unavailable BEL OJEDA Attending Unavailable ALESSANDRO LEVI Attending Unavailable CAILIN YOSSI B Attending Unavailable KRISTEN WILLIAM Attending Unavailable LANDERS, YOSSI B Referring Unavailable CAILIN, YOSSI B Attending Unavailable YOSSI LANDERS B Attending Unavailable CAN MASON Attending Unavailable CAN MASON Attending Unavailable CAILIN YOSSI B Attending Unavailable YEN AUGUSTE Attending Unavailable LANDERS, YOSSI B Attending Unavailable LANDERS, YOSSI B Attending Unavailable CAILIN, YOSSI B Attending Unavailable ALESSANDRO LEVI A Attending Unavailable CAN MASON Referring Unavailable ALESSANDRO LEVI A Attending Unavailable LANDERS, YOSSI B Attending Unavailable LANDERS, YOSSI B Referring Unavailable LANDERS, YOSSI B Attending Unavailable LANDERS, YOSSI B Attending Unavailable Allergies Allergy Classification Reported Allergen(s) Allergy Type Date of Onset Reaction(s) Facility (20 sources) Naproxen; Translations: [Aleve TABS] Drug Allergy 1 Edema (finding), Unknown (qualifier value), Swelling [facility] 250 DO Work Phone: Comment on above: Gogo oral edema (7 sources) rofecoxib; Translations: [Vioxx] Drug Allergy Anaphylaxis [facility] Repository (1 source) Benztropine Drug Allergy 1 [facility] Repository (1 source) Naproxen Drug Allergy 3 [facility]ository (5 sources) Naproxen; Translations: [naproxen] Drug Allergy 9 Swelling of Lip/Tongue/Throat, gogo oral edema [facility] (1 source) rofecoxib Drug Allergy 3 [facility] (20 sources) Benztropine; Translations: [benztropine] Drug Allergy 0 Other, Hallucinations (finding), Unknown (qualifier value) [facility] Healthcare (20 sources) Benztropine; Translations: [Benztropine Mesylate] Drug Allergy 0 Hallucinations [facility] Work Phone: Comment on above: Onset Date: 11/30/19 20 (5 sources) rofecoxib; Translations: [rofecoxib] Drug Allergy 9 Unknown (qualifier value) [facility] (20 sources) rofecoxib Drug Allergy 4 [facility] Medications Current Medications Medication Drug Class(es) Dates Sig (Normalized) Sig (Original) acetaminophen 325 mg / HYDROcodone bitartrate 7.5 mg oral tablet (20 sources) Opioid Agonist Start: 12-05-2024 End: 01-04-2025 take 1 tablet by mouth every six hours for pain HYDROcodone-acetami nophen ([place]) 7.5-325 MG tablet Indications: Degenerative lumbar spinal stenosis Take 1 tablet by mouth every 6 (six) hours if needed for severe pain 120 tablet 12/05/2024 01/04/2025 Active Start: 11-02-2024 End: 12-03-2024 take 1 tablet by mouth every six hours for pain HYDROcodone-acetaminophen ([place]) 7.5-32 5 MG tablet Indications: Degenerative lumbar spinal stenosis Take 1 tablet by mouth every 6 (six) hours if needed for severe pain 120 tablet 11/02/2024 12/03/2024 Discontinued (Reorder) Start: 08-08-2024 End: 10-05-2024 take 1 tablet by mouth every six hours for pain HYDROcodone-acetaminophen ([place]) 7.5-32 5 MG tablet Indications: Degenerative lumbar spinal stenosis Take 1 tablet by mouth every 6 (six) hours if needed for severe pain 120 tablet 09/05/2024 10/05/2024 Active Start: 06-01-2024 End: 08-06-2024 take 1 tablet by mouth every six hours for pain HYDROcodone-acetaminophen ([place]) 7.5-32 5 MG tablet Indications: Degenerative lumbar spinal stenosis Take 1 tablet by mouth every 6 (six) hours if needed for severe pain 120 tablet 07/04/2024 08/06/2024 Discontinued (Reorder) Start: 03-02-2024 take 1 tablet by sky th every six hours for pain HYDROcodone-acetaminophen ([place]) 7.5-32 5 MG tablet Indications: Degenerative lumbar spinal stenosis Take 1 tablet by mouth every 6 (six) hours if needed for severe pain 120 tablet 03/02/2024 Active Start: 01-28-2024 End: 07-01-2024 take 1 tablet by mouth every six hours for pain HYDROcodone-acetaminophen ([place]) 7.5-32 5 MG tablet Indications: Degenerative lumbar spinal stenosis Take 1 tablet by mouth every 6 (six) hours if needed for severe pain 120 tablet 06/01/2024 07/01/2024 Active Start: 07-01-2023 End: 08-03-2023 take 1 tablet by mouth every six hours for pain HYDROcodone-acetaminophen ([place]) 7.5-32 5 MG tablet Indications: Degenerative lumbar [...] tablet (20 sources) Benzodiazepine Start: 09-07-2024 End: 03-09-2025 take 1 tablet by mouth three times daily as needed for anxiety ALPRAZolam (Xanax) 0.25 MG tablet Indications: Depression with anxiety Take 1 tablet (0.25 mg) by mouth 3 (three) times a day as needed for anxiety 90 tablet 02/07/2025 03/09/2025 Active Start: 08-08-2024 End: 09-07-2024 take 1 [...] tablet (20 sources) HMG-CoA Reductase Inhibitor Start: 02-09-2024 End: 01-09-2025 atorvastatin (Lipitor) 40 MG tablet Indications: Mixed hyperlipidemia TAKE 1 TABLET EVERY MORNING 90 tablet 3 01/09/2025 Active Start: 06-29-2018 End: 11-24-2023 atorvastatin (Lipitor) 40 [...] 2 puff(s) by inhalation in the morning Wlmzqax-Khodtomgrkr-Szlvfnupcq (Breztri Aerosphere) 160-9-4.8 MCG/ACT aerosol Indications: Panlobular [...] 1:00am calcium carbonate 500 mg chewable tablet (20 sources) calcium carbonat e (Tums) 500 MG chewable tablet Chew 500 mg Daily Active carvedilol 12.5 mg oral tablet (20 sources) alpha-Adrenergic Ana, beta-Adrenergic Ana Start: 06-29-19 End: 01-10-20 take 1 tablet by mouth in the morning carvedilol (Coreg) 12.5 MG tablet Indications: Chronic 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 180 tablet 3 01/09/2025 Active ciprofloxacin 500 mg oral tablet (2 sources) Quinolone Antimicrobial Start: 06-10-20 24 End: 06-17-20 24 take 1 tablet by mouth in the morning ciprofloxacin (Cipro) 500 MG tablet Indications: COPD with acute exacerbation (CMS/HCC) , Acute cystitis without hematuria Take 1 tablet (500 mg) by mouth in the morning and 1 tablet (500 mg) before bedtime. Do all this for 7 days. 14 tablet 06/10/2024 06/17/2024 Active docusate sodium 100 mg oral capsule (20 sources) Start: 08-03-19 take 1 capsule by mouth in the morning [facility] Stool Softener 100 MG capsule Take 100 mg by mouth in the morning and 100 mg before bedtime. 08/03/2023 Active DULoxetine 60 mg delayed release oral capsule (20 sources) Serotonin and Norepinephrine Reuptake Inhibitor Start: 12-16-19 End: 01-10-20 DULoxetine (Cymbalta) [address] capsule Indications: Depression with anxiety TAKE 1 CAPSULE EVERY MORNING 90 capsule 3 01/09/2025 Active Start: 11-24-2022 End: 11-24-2023 take 1 capsule by mouth in the morning DULoxetine (Cymbalta) [address] capsule Indications: Depression with anxiety Take 1 capsule (60 mg) by mouth in the morning. 90 capsule 3 11/24/2022 11/24/2023 Active Start: 07-30-2021 take 1 capsule by mo [facility] once daily DULoxetine HCl - 60 MG [...] Active Start: 10-21-2024 [facility] famotidine (Pepcid) 20 MG tablet [...] take 1 puff(s) by inhalation once daily Kjbmqptioyn-Qvdurgxax-Fvzmhb (Trelegy Ellipta) 100-62.5-25 MCG/ACT aerosol powder Indications: [...] Start: 12-21-2023 take 1 tablet by sky th once daily levothyroxine 100 mcg (0.1 mg) [...] Start: 01-02-2022 take 1 capsule by mo [facility] once daily Linzess 290 MCG Oral Capsule TAKE 1 CAPSULE BY MOUTH EVERY DAY FOR 90 DAYS Quantity: 90 Refills: 0 Ordered: 02-Jan-2022 DO Start : 02-Jan-2022 Active lisinopril 5 mg oral tablet (20 sources) Angiotensin Converting Enzyme Inhibitor Start: 02-09-2024 End: 01-09-2025 lisinopril 5 MG tablet Indications: Essential hypertension TAKE 1 TABLET EVERY MORNING 90 tablet 3 01/09/2025 Active Start: 06-29-2018 End: 07-27-2023 lisinopril 5 MG [...] hydrochloride 10 mg oral tablet (20 sources) M-rkeght-T-aspar douglass Receptor Antagonist Start: 11-29-2024 End: 01-16-2025 memantine (Namenda Titration Pack) 28 x 5 MG & 21 x 10 MG tablet pack Indications: Cognitive impairment USE DIRECTED FOR FIRST MONTH. 147 each 1 11/29/2024 01/16/2025 Discontinued (Dose adjustment) Start: 11-29-2024 [...] month. 49 tablet 11/07/2024 12/07/2024 Active methylPREDNISolone (4 sources) Corticosteroid Start: 01-25-2025 End: 02-01-2025 methylPREDNISolone (Medrol Dospak) 4 MG tablets Indications: COPD exacerbation (HCC) Follow schedule on package instructions 21 tablet 01/25/2025 02/01/2025 Active Start: 06-10-2024 End: 06-17-2024 methylPREDNISolone (Medrol D ospak) 4 MG tablets Indications: COPD with acute [...] tablet (20 sources) Nitrate Vasodilator Start: 06-29-2018 Nitroglycerin (Nitrostat) 0.4 mg Tablet, Sublingual Active 0.4 MG SUBLINGUAL every 5 to 15 minutes as needed for Chest Pain June 29, 2018 1:00am nystatin 100 unt/mg topical ointment (20 sources) Polyene Antifungal nystatin (Mycostatin) ointment every 12 (twelve) hours. Active ondansetron 4 mg disintegrating oral tablet [...] TAB PO Daily June 29, 2018 1:00am vilazodone hydrochloride 40 mg oral tablet (2 [...] and 1 puff before bedtime. 0 Active omeprazole 40 mg delayed release oral capsule (20 sources) Proton Pump Inhibitor Start: 12-16-2023 End: 01-30-2025 omeprazole (PriLOSEC) [address] capsule Indications: Gastroesophageal reflux disease without esophagitis TAKE 1 CAPSULE EVERY MORNING BEFORE A MEAL 90 capsule 3 01/09/2025 01/30/2025 Discontinued (Other) Start: 12-10-2022 omeprazole (Pr iLOSEC) [address] capsule Indications: Gastroesophageal reflux disease without esophagitis TAKE 1 CAPSULE BY MOUTH EVERY DAY 30 MINUTES BEFORE MORNING MEAL FOR 30 DAYS 90 capsule 3 12/10/2022 Active torsemide 10 mg oral tablet (20 sources) Loop Diuretic Start: 01-16-2025 End: 01-16-2026 take 1.5 tablets by mouth once daily torsemide (Demadex) 10 MG tablet Indications: Edema Take 1.5 tablets (15 mg) by mouth Daily 45 tablet 11 01/16/2025 01/30/2025 Discontinued (Therapy completed) Start: 10-07-2024 End: 10-10-2025 take 1 tablet [...] Daily 30 tablet 11 09/07/2024 10/07/2024 Discontinued 1 ml triamcinolone acetonide 40 mg/ml prefilled syringe (4 sources) Corticosteroid Start: 09-29-2024 End: 09-29-2024 triamcinolone acetonide (Kenalog-40) injection 40 mg Start: 09-29-2024 End: 09-29-2024 inject 40 mg by intramuscular injection once 40 mg, Intramuscular, Once, On [facility] 09/29/24 at 1130, For 1 dose Problems Active Problems Problem Classification Problem Date Documented Da te Episodic/Chronic Adjustment disorders (3 sources) Adjustment disorder with depressed mood; Translations: [Adjustment disorder with depressed mood] Onset: 10-03-2024 01-25-2025 Chronic Administrative/social admission (2 sources) Patient encounter status; [...] [Coronary atherosclerosis of unspecified type of vessel, akiak or graft] Onset: 04-14-2022 11-04-2022 Chronic Delirium, [...] 08-25-2022 11-04-2022 Chronic Other aftercare (1 source) [facility] (current) use of aspirin; Translations: [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] Onset: 10-23-2022 Episodic Other aftercare (1 source) Other jail (current) drug therapy; Translations: [OTH SNF CURRENT DRUG THERAPY] Onset: 10-23-2022 Episodic Other aftercare (1 source) [facility] (current) use of inhaled steroids; Translations: [SNF USE OF INHALED STEROIDS] Onset: 10-23-2022 Episodic [...] without cholecystitis without obstruction] Onset: 12-21-2023 Episodic Fluid and electrolyte disorders (5 sources) Hyponatremia; Translations: [Hypo-osmolality and hyponatremia] Onset: 10-03-2024 09-29-2024 Episodic Nausea and vomiting (20 sources) Nausea; [...] 10-23-2017 12-14-2022 Episodic Other nervous system disorders (19 sources) Impaired cognition; Translations: [Other symptoms and [...] without neurogenic claudication] Onset: 11-04-2022 11-04-2022 Episodic Superficial injury; contusion (3 sources) Contusion of left knee; Translations: [Contusion of left knee, initial encounter] Onset: 10-03-2024 01-25-2025 Episodic Results Test Name Value Interpretation Reference Range Facility BASIC METABOLIC PANELon 09-21 Calcium [Mass/Vol] 8.6 mg/dL Normal 8.6-10.4 [facility] Comment on above: Performed By: #### 1 0165 #### [facility] [place] [address] Prevention Rn: Angel Conway MD Chloride [Moles/Vol] 109 mmol/L Normal 98-110 [facility] Comment on above: Performed By: #### 1 0165 #### [facility] [place] [address] Prevention Rn: Angel Conway MD CO2 [Moles/Vol] 21 mmol/L Normal 20-32 [facility] Comment on above: Performed By: #### 1 0165 #### [facility] [place] [address] Prevention Rn: Angel Conway MD Creatinine [Mass/Vol] 0.55 mg/dL Low 0.60-0.95 [facility] Comment on above: Performed By: #### 1 0165 #### [facility] [place] [address] Prevention Rn: Angel Conway MD GFR/1.73 sq M.predicted among non-blacks MDRD (S/P/Bld) [Vol rate/Area] 91 mL/min/{1.73_m2} Normal > OR = 60 [facility] Comment on above: Performed By: #### 1 0165 #### [facility] [place] [address] Prevention Rn: Angel Conway MD Glucose [Mass/Vol] 116 mg/dL High 65-99 [facility] Comment on above: Result Comment: Fasting reference interval For someone without known diabetes, a glucose value between 100 and 125 mg/dL is consistent with prediabetes and should be confirmed with a follow-up test. Performed By: #### 1 0165 #### [facility] [place] [address] Prevention Rn: Angel Conway MD Potassium [Moles/Vol] 3.6 mmol/L Normal 3.5-5.3 [facility] Comment on above: Performed By: #### 1 0165 #### [facility] [place] [address] Prevention Rn: Angel Conway MD Sodium [Moles/Vol] 140 mmol/L Normal 135-146 [facility] Comment on above: Performed By: #### 1 0165 #### [facility] [place] [address] Prevention Rn: Angel Conway MD Urea nitrogen [Mass/Vol] 6 mg/dL Low 7-25 [facility] Comment on above: Performed By: #### 1 0165 #### [facility] [place] [address] Prevention Rn: Angel Conway MD Urea nitrogen/Creatinin e [Mass ratio] 11 mg/mg Normal 6-22 [facility] Comment on above: Performed By: #### 1 0165 #### [facility] [place] [address] Prevention Rn: Angel Conway MD Urine Cultureon 10-01-2024 Bacteria identified Cx Nom (U) 50,000 colonies/ml mixed bacterial skin contaminants 2 Days PERFORMED BY: [facility] [place] [address] PATHOLOGIST SUPERVISOR PLASMA TRACI MCDONNELL M.D. [place] [facility] Comment on above: Performed By: #### C UU #### [facility] [address] Urine Cultureon 08-13-2024 Bacteria identified Cx Nom (U) No Growth 2 Days PERFORMED BY: [facility] [address] [place] [address] PATHOLOGIST SUPERVISOR PLASMA TRACI MCDONNELL M.D. Normal [facility] Comment on above: Performed By: #### C UU #### [facility] [address] Urine cultureOrdered By: Nikita Greene on 08-13-2024 Bacteria identified Cx Nom (U) Urine culture [facility] Pulmonary function reporton 05-04-2024 PFT Interpretation 84-year-old [...] restrictive ventilatory defect. Clinical correlation is recommended. [facility] Pulmonary function reportOrd ered By: Kristen William on 05-04-2024 [facility] Work Phone: Pulmonary function reporton 05-03-2024 Radiology Study observation (narrative) [facility] Laboratory - Hematology and Cell countson 05-02-2024 HbA1c (Bld) [Mass fraction] 5.5 % [facility] No Panel Informationon 05-02 [facility] Surgical Pathology Reporton 03-10-2024 Surgical Pathology Report [address] [place] [address]- Surgical Pathology Report Collected Date/Time: 03/08/2024 10:15 EDT Pathologist: Meng Vyas MD Received Date/Time: 03/08/2024 11:54 EDT Amaris VALDEZ, Mandi Glez MD, Mohamad A. 07 Surgical Pathology Report - 03/10/2024 13:59 EDT [...] is entirely submitted in one cassette. (DC) DC:[facility] Microscopic Description A&B: Microscopic examination performed unless gross only specified. Normal [facility] Comment on above: Performed By: #### [id number] #### [facility] [address] [place] [address] Main OR Intraoperative Recor don 03-09-2024 Main OR Intraoperative Record Main OR Intraoperative Record IntraOp Document Type FT Summary Primary Physician: Mandi Glez MD Finalized Date/Time: 03/09/24 10:12:42 Pt. Name: JAQUELIN NORWOOD/Sex: 1940 Female Med Rec #: [id number] Physician: Mandi Glez MD Financial #: [id number] Pt. Type: O Room/Bed: / Admit/Disch: 03/08/24 [...] Role Performed Anesthesiologist of Surgeon - Primary Binder Coverstitch - Primary Record Time In 03/08/24 09:48:00 [...] VALDEZ, Luciano Leonard, Given Participants Amaris VALDEZ, Tom Jean-Baptiste RN, Angela, Schafer CST, Alexandria M Time [...] rectal polypectomy Primary Procedure Yes Primary Surgeon Amaris VALDEZ, Mandi Alejandro 03/08/24 09:54:00 Stop 03/08/24 10:13:00 Anesthesia Type [...] and tissue Entry 1 Skin Integrity Intact, [place], Warm, & Skin Abnormality No Dry Outcomes [...] Position Resting (more content not included)... Normal [facility] Discharge Instructionson Discharge Instructions Discharge Instructions [...] Discharge Follow Up with Amaris VALDEZ, Mandi Red, [facility], [facility] When: Comments: Office will call to schedule follow up appointment and/or review any pending biopsy results Call for any problems. Where: [address] [place], [place] [address]d[place]en, [address] [place] [phone] Medications What How Much When Instructions Next [...] paper. FOL (more content not included)... Normal [facility] Comment on above: Result Comment: Elec tronically Signed By: Shakila COTA, Yoanna\.br\Date and Time Signed: 03/08/24 10:37 EDT Main OR PACU I Recordon 02-20 Main OR PACU I Record Main OR PACU I Record PACU Phase I Document Type FT Summary Primary Physician: Mandi Glez MD Finalized Date/Time: 03/08/24 11:14:03 Pt. Name: CUCOJAQUELIN/Sex: 1940 Female Med Rec #: [id number] Physician: Mandi Glez MD Financial #: [id number] Pt. Type: O Room/Bed: / Admit/Disch: 03/08/24 [...] By: Yoanna Jhaveri RN 03/08/24 11:14 Normal [facility] Main OR Preoperative Recordo n 03-08-2024 Main OR Preoperative Record Main OR Preoperative Record Holding Area Document Type FT Summary Primary Physician: Mandi Glez MD Finalized Date/Time: 03/08/24 08:51:04 Pt. Name: CUCOJAQUELIN/Sex: 1940 Female Med Rec #: [id number] Physician: Mandi Glez MD Financial #: [id number] Pt. Type: O Room/Bed: / Admit/Disch: 03/08/24 [...] By: Ysabel Kelly RN 03/08/24 08:51 Normal [facility] Operative Reporton Operative Report Operative Report Patient: JAQUELIN NORWOOD Age: 83 years Sex: Female : 1940 Associated Diagnoses: None Author: Mandi Glez MD Pre-Procedure Procedure Date 03/08/2024 10:15:00 . Procedure Type: Colonoscopy with removal of tumor(s), polyp(s), or other lesion(s) by cold snare technique. Procedure provider Performed by Mandi Glez MD. Current history and physical Documented on chart. EGD - esophagogastroduodenoscopy ([id number]) on 02/03/2024 at 83 Years. Colonoscopy ([id number]) on 02/03/2024 at 83 Years.. Past Medical History No active or resolved past medical history items have been selected or recorded.. Family History Heart disease Mother Diabetes mellitus type 2 Mother Cancer Father Mother . Procedure History EGD - esophagogastroduodenoscopy ([id number]) on 02/03/2024 at 83 Years. Colonoscopy ([id number]) on 02/03/2024 at 83 Years.. Colorectal neoplasm [...] Internal hemorrhoids Images Procedure images: [id number].jpg [id number]_hd_[id number]__[id number].jpg [id number]_hd_video__09_ [id number].jpg Rec1_hd_video__09_ [id number].jpg Rec1_hd_video__09_ [id number].jpg Rec1_hd_video__T09_ [id number].jpg Rec1_hd_video__T09_ [id number].jpg . Post-Procedure Complications: none. Estimated blood loss: Minimal. Specimens: sent to pathology. Devices/ implants: none left in place. Impression and Plan 6 colon polyps?removed as above Redundant colon with excessive mucus Diverticulosis Internal hemorrhoids Recommendations: Repeat colonoscopy:: None given age and comorbiditties . Follow-up:: in clinic for 1-2 weeks when p (more content not included)... Normal [facility] Comment on above: Result Comment: Elec tronically Signed By: Mandi Glez MD\.br\Date and Time Signed: 03/08/24 10:18 EDT Other Comment: Ayana perry Attachment - attachment storage system not supported [id number] Can be viewed in source systemMissing Attachment - attachment storage system not supported [id number] Can be [facility] Attachment - attachment storage system not supported [id number] Can be viewed in source systemMissing Attachment - attachment storage system not supported [id number] Can be viewed in source systemMissing Attachment - attachment storage system not supported [id number] Can be viewed in [facility] Attachment - attachment storage system not supported [id number] Can be viewed in source systemMissbaseclick Attachment - attachment storage system not supported [id number] Can be viewed in source system H&P [...] Diagnosis: abnl CT - colonoscopy H&P Normal [facility] Operative Report Operative Report Patient: JAQUELIN [...] mmHg (MAR 08 08:46) Weight 87.3 kg (FEB 17 08:46) General: in Nad Abdomen: Soft, NTND Impression and Plan Diagnosis: abnl CT - colonoscopy Normal [facility] Comment on above: Result Comment: Elec [...] hrs) Last Charted Temp Temporal 36.7 DegC (SEP 17 08:46) Heart Rate Monitored 88 bpm (SEP 17 08:46) SBP 134 mmHg (FEB 17 08:46) DBP 70 mmHg (SEP 17 08:46) Weight 87.3 kg (FEB 17 08:46) General: in Nad Abdomen: Soft, NTND Impression and Plan Diagnosis: Abnormal CT scan Sigmoidoscopy H&P Normal [facility] Operative Report Operative Report Patient: JAQUELIN [...] Plan Diagnosis: Abnormal CT scan Sigmoidoscopy Normal [facility] Comment on above: Result Comment: Elec [...] Cancer: Mo (more content not included)... Normal [facility] Comment on above: Result Comment: Elec tronically Signed By: Dania Antonio I\.zari\Date and Time Signed: 03/02/24 09:23 EDT 07 Addendum Reporton 08-16-2 024 07 Addendum Report [facility] [address] [place] [address]- Surgical Pathology Report Collected Date/Time: 02/03/2024 10:21 [...] is entirely submitted in one cassette. (DC) DC:[facility] Surgical Pathology Report Collected Date/Time: [...] characteristics were determined by the [facility]. They have not been cleared or approved by the US Food and Drug Administration. The FDA has determined that such clearance or approval is not necessary. These tests are used for clinical purposes. They should not be regarded as investigational or for research. Appropriate positive and negative controls are performed and are acceptable. Normal [facility] Comment on above: Performed By: #### C [id number] #### [facility] [address] [place] [address] Main OR Intraoperative Recor don 02-04-2024 Main OR Intraoperative Record Main OR Intraoperative Record IntraOp Document Type FT Summary Primary Physician: Mandi Glez MD Finalized Date/Time: 02/04/24 08:30:09 Pt. Name: CUCO JAQUELIN Glaser/Sex: 1940 Female Med Rec #: [id number] Physician: Mandi Glez MD Financial #: [id number] Pt. Type: O Room/Bed: / Admit/Disch: 02/03/24 [...] RN, Karla Vu Role Performed Anesthesiologist of [place] - Primary Staff - Other Record Time In 02/03/24 10:10:00 02/03/24 10:10:00 02/03/24 10:15:00 Time Out 02/03/24 10:29:00 02/03/24 10:29:00 02/03/24 10:29:00 Procedure SIGMOIDOSCOPY(.), EGD(.) SIGMOIDOSCOPY(.), EGD(.) SIGMOIDOSCOPY(.), EGD(.) Comments help in room Last Modified By: Robbie Rothman RN, RN, Robbie Rothman RN, Robbie River 02/03/24 10:29:17 02/03/24 10:29:17 02/03/24 10:29:17 Entry 4 Entry 5 Case Attendee Ang DURAN, Talia Glez MD, Mandi A. M Role Performed Scrub - Primary Surgeon - [...] Antibiotic No Time Out Tiago Peterson DO, Stephan COTA, Ang Booth CST, Amaris Balbuena MD, Mandi Red Time [...] Surgeon Amaris VALDEZ, Mandi Glez MD, Mandi Alejandro 02/03/24 10:16:00 02/03/24 10:16:00 Stop 02/03/24 10:26:00 [...] By: Ruthy (more content not included)... Normal [facility] Surgical Pathology Reporton 02-04-2024 Surgical Pathology Report [facility] [address] [place] [address]- Surgical Pathology Report Collected Date/Time: 02/03/2024 10:21 [...] is entirely submitted in one cassette. (DC) DC:[facility] Microscopic Description A&B: Microscopic examination performed unless gross only specified. The use of one or more reagents in the above tests is regulated as an analyte specific reagent (ASR). The test or tests are ordered following initial H&E microscopic examination. The performance characteristics were determined by the [facility]. They have not been cleared or approved by the US Food and Drug Administration. The FDA has determined that such clearance or approval is not necessary. These tests are used for clinical purposes. They should not be regarded as investigational or for research. Appropriate positive and negative controls are performed and are acceptable. Normal [facility] Comment on above: Performed By: #### [id number] #### [facility] [address] [place] [address] Discharge Instructionson Discharge Instructions Discharge Instructions JAQUELIN [...] Discharge Follow Up with Amaris VALDEZ, Mandi Red, GAS, MED When: Comments: Office will call Date and Time of Follow-up Appt. Where: [address], [address] [place] [address]- [phone] Medications What How Much When Instructions Next [...] including vitamins, herbs, eye drops, creams, and lucm-hxt-ocdicqw medicines. ? Any problems you or family [...] Taking medi (more content not included)... Normal [facility] Comment on above: Result Comment: Elec tronically Signed By: Krissy COTA, Saida\.br\Date and Time Signed: 02/03/24 10:39 EDT Main OR PACU I Recordon 01-20 Main OR PACU I Record Main OR PACU I Record PACU Phase I Document Type FT Summary Primary Physician: Manid Glez MD Finalized Date/Time: 02/03/24 16:03:27 Pt. Name: JAQUELIN NORWOOD Glenroy Glaser/Sex: 1940 Female Med Rec #: [id number] Physician: Mandi Glez MD Financial #: [id number] Pt. Type: O Room/Bed: / Admit/Disch: 02/03/24 [...] 10:55 Saida Rey RN 02/03/24 16:03 Normal [facility] Main OR Preoperative Recordo n 02-03-2024 Main OR Preoperative Record Main OR Preoperative Record Holding Area Document Type FT Summary Primary Physician: Mandi Glez MD Finalized Date/Time: 02/03/24 09:17:23 Pt. Name: JAQUELIN NORWOOD D.O.B./Sex: 1940 Female Med Rec #: [id number] Physician: Mandi Glez MD Financial #: [id number] Pt. Type: O Room/Bed: / Admit/Disch: 02/03/24 [...] 09:03 Saida Rey RN 02/03/24 09:17 Normal [facility] Operative Reporton Operative Report Operative Report [...] hours. Education and Follow-up: Counseled: Patient, Family. [facility] Comment on above: Result Comment: Elec tronically Signed By: Mandi Glez MD\.br\Date and Time Signed: 02/03/24 10:31 EDT Other Comment: Ayana perry Attachment - attachment storage system not supported [id number] Can be viewed in source system Operative [...] bulb. otherwise, normal duodenum. Images Procedure images: Rec1_hd_video_2023__T09_ _[id number].jpg Rec1_hd_video__14T09_ _34_629.jpg Rec1_hd_video__14T09_ _43_827.jpg Rec1_hd_video__T09_ _55_948.jpg Rec1_hd_video__14T09_ _13_375.jpg Rec1_hd_video__14T09_ _35_569.jpg Rec1_hd_video__14T09_ _31_722.jpg Rec1_hd_video__14T09_ 28_44_158.jpg Rec1_hd_video_2023__14T09_ 29_17_870.jpg Rec1_hd_video_2023__14T09_ 29_43_284.jpg Rec1_hd_video__14T09_ 31_02_072.jpg Rec1_hd_video__14T09_ 32_03_161.jpg . Post-Procedure Complications: none. Estimated blood loss: none. Specimens: None. Devices/ implants: none left in place. Impression and Plan Schatzki's ring and esophageal stricture status post dilation Gastropathy Duodenitis Recommendations: -Liquid then soft diet today, advance as tolerated (more content not included)... Normal [facility] Comment on above: Result Comment: Elec tronically Signed By: Amaris VALDEZ, Mandi Red\.br\Date and Time Signed: 02/03/24 10:30 EDT Other Comment: Ayana perry Attachment - attachment storage system not supported [id number] Can be viewed in source system Missing Attachment - attachment storage system not supported [id number] Can be viewed in source system Missing Attachment - attachment storage system not supported [id number] Can be viewed in source system Missing Attachment - attachment storage system not supported [id number] Can be viewed in source system Missing Attachment - attachment storage system not supported [id number] Can be viewed in source system Missing Attachment - attachment storage system not supported [id number] Can be viewed in source system Missing Attachment - attachment storage system not supported [id number] Can be viewed in source system Missing Attachment - attachment storage system not supported [id number] Can be viewed in source system Missing Attachment - attachment storage system not supported [id number] Can be viewed in source system Missing Attachment - attachment storage system not supported [id number] Can be viewed in source system Missing Attachment - attachment storage system not supported [id number] Can be viewed in source system Missing Attachment - attachment storage system not supported [id number] Can be viewed in source system Ambulatory [...] for choosing us for your care. Normal [facility] Physician Referralon 024 Physician Referral [phone] [id number] Normal [facility] CORTISOL FREE, SERUMon 10-24 Cortisol, Free Dialysis, LCMS 0.462 ug/dL Normal [facility] Comment on above: Result Comment: Thes e tests were developed and their performance characteristics determined by [facility]. They have not been cleared or approved by the Food and Drug Administration. Reference Range: 8 AM 0.10 - 1.20 4 PM 0.042 - 0.872 Performed By: #### E RUR #### [facility] [address] [place] [address] [address] [address] Soila Pastor CBC AUTO DIFFon 10-16-2022 BASO # 0.0 103/ul Normal 0.0-0.1 [facility] Comment on above: Performed By: #### C BC #### [facility] [address] [address] [address] Soila Pastor Basophils/100 WBC (Bld) 0.4 % Normal 0.2-2.0 [facility] Comment on above: Performed By: #### C BC #### [facility] [address] [place] [address] Dr. Soila Pastor EO # 0.1 103/ul Normal 0.0-0.7 [facility] Comment on above: Performed By: #### C BC #### [facility] [address] [place] [address] Dr. Soila Pastor Eosinophils/100 WBC (Bld) 1.0 % Normal 0.9-7.0 [facility] Comment on above: Performed By: #### C BC #### [facility] [address] [place] [address] Dr. Soila Pastor Erythrocyte distribution width (RBC) [Ratio] 13.4 % Normal 11.0-15.0 [facility] Comment on above: Performed By: #### C BC #### [facility] [address] [place] [address] Dr. Soila Pastor Hematocrit (Bld) [Volume fraction] 34.7 % Critically low 36.0-48.0 [facility] Comment on above: Performed By: #### C BC #### [facility] [address] [place] [address] Dr. Soila Pastor Hemoglobin (Bld) [Mass/Vol] 10.8 g/dL Critically low 12.0-16.0 [facility] Comment on above: Performed By: #### C BC #### [facility] [address] [place] [address] Dr. Soila Pastor IG # 0.03 10e3/ul Normal 0.00-0.03 [facility] Comment on above: Performed By: #### C BC #### [facility] [address] [place] [address] Dr. Soila Pastor IG % 0.4 % Normal 0.0-0.5 [facility] Comment on above: Performed By: #### C BC #### [facility] [address] [place] [address] Dr. Soila Pastor LYMPH # 1.7 103/ul Normal 1.2-3.8 [facility] Comment on above: Performed By: #### C BC #### [facility] [address] [place] [address] Dr. Soila Pastor Lymphocytes/100 WBC (Bld) 22.1 % Normal 20.5-60.0 [facility] Comment on above: Performed By: #### C BC #### [facility] [address] [place] [address] Dr. Soila Pastor MANUAL DIFF REQ NO Normal [facility] Comment on above: Performed By: #### C BC #### [facility] [address] [place] [address] Dr. Soila Pastor MCH (RBC) [Entitic mass] 30.0 pg Normal 26.7-34.0 [facility] Comment on above: Performed By: #### C BC #### [facility] [address] [place] [address] Dr. Soila Pastor MCHC (RBC) [Mass/Vol] 31.1 g/dL Normal 29.9-35.2 [facility] Comment on above: Performed By: #### C BC #### [facility] [address] [place] [address] Dr. Soila Pastor MCV (RBC) [Entitic vol] 96.4 fL Normal 81.0-99.0 [facility] Comment on above: Performed By: #### C BC #### [facility] [address] [place] [address] Dr. Soila Pastor MONO # 0.5 103/ul Normal 0.3-0.8 [facility] Comment on above: Performed By: #### C BC #### [facility] [address] [place] [address] Dr. Soila Pastor Monocytes/100 WBC (Bld) 6.9 % Normal 1.7-12.0 [facility] Comment on above: Performed By: #### C BC #### [facility] [address] [place] [address] Dr. Soila Pastor NEUT # 5.4 103/ul Normal 1.4-6.5 [facility] Comment on above: Performed By: #### C BC #### [facility] [address] [place] [address] Dr. Soila Pastor Neutrophils/100 WBC (Bld) 69.2 % Normal 43.0-75.0 [facility] Comment on above: Performed By: #### C BC #### [facility] [address] [place] [address] Dr. Soila Pastor Platelet mean volume (Bld) [Entitic vol] 11.8 fL Normal 9.5-13.5 [facility] Comment on above: Performed By: #### C BC #### [facility] [address] [place] [address] Dr. Soila Pastor PLT 128 103/ul Critically low 150-450 [facility] Comment on above: Performed By: #### C BC #### [facility] [address] [place] [address] Dr. Soila Pastor RBC 3.60 106/ul Critically low 4.20-5.40 [facility] Comment on above: Performed By: #### C BC #### [facility] [address] [place] [address] Dr. Soila Pastor WBC 7.9 103/ul Normal 4.0-11.0 [facility] Comment on above: Performed By: #### C BC #### [facility] [address] [place] [address] Dr. Soila Pastor PROF 14(COMP METB)on 023 Albumin [Mass/Vol] 2.4 g/dL Critically low 3.4-5.0 [facility] Comment on above: Performed By: #### C MP #### [facility] [address] [place] [address] Dr. Soila Pastor Albumin/Globulin [Mass ratio] 0.7 {ratio} Normal [facility] Comment on above: Performed By: #### C MP #### [facility] [address] [place] [address] Dr. Soila Pastor ALP [Catalytic activity/Vol] 66 U/L Normal 46-116 [facility] Comment on above: Performed By: #### C MP #### [facility] [address] [address] [address] Soila Pastor ALT [Catalytic activity/Vol] 15 U/L Normal 14-59 [facility] Comment on above: Performed By: #### C MP #### [facility] [address] [address] [address] Soila Pastor Anion gap [Moles/Vol] 12.1 mmol/L Normal [facility] Comment on above: Performed By: #### C MP #### [facility] [address] [address] [address] Soila Pastor AST [Catalytic activity/Vol] 18 U/L Normal 15-37 [facility] Comment on above: Performed By: #### C MP #### [facility] [address] [address] [address] Soila Pastor Bilirubin [Mass/Vol] 0.3 mg/dL Normal 0.2-1.0 [facility] Comment on above: Performed By: #### C MP #### [facility] [address] [address] [address] Soila Pastor Calcium [Mass/Vol] 8.6 mg/dL Normal 8.5-10.1 [facility] Comment on above: Performed By: #### C MP #### [facility] [address] [address] [address] Soila Pastor Chloride [Moles/Vol] 110 mmol/L Critically high 98-107 [facility] Comment on above: Performed By: #### C MP #### [facility] [address] [address] [address] Soila Pastor CO2 [Moles/Vol] 26.2 mmol/L Normal 21.0-32.0 [facility] Comment on above: Performed By: #### C MP #### [facility] [address] [address] [address] Soila Pastor Creatinine [Mass/Vol] 0.74 mg/dL Normal 0.55-1.02 [facility] Comment on above: Performed By: #### C MP #### [facility] [address] [address] [address] Soila Pastor EGFR-AF KAZAKH >60 Normal >=60 [facility] Comment on above: Performed By: #### C MP #### [facility] [address] [address] [address] Soila Pastor EGFR-NON AF KAZAKH >60 Normal >=60 [facility] Comment on above: Performed By: #### C MP #### [facility] [address] [address] [address] Soila Pastor Globulin (S) [Mass/Vol] 3.6 g/dL Normal [facility] Comment on above: Performed By: #### C MP #### [facility] [address] [address] [address] Soila Pastor Glucose [Mass/Vol] 119 mg/dL Critically high 74-106 [facility] Comment on above: Performed By: #### C MP #### [facility] [address] [address] [address] Soila Pastor Potassium [Moles/Vol] 3.3 mmol/L Critically low 3.5-5.1 [facility] Comment on above: Performed By: #### C MP #### [facility] [address] [address] [address] Soila Pastor Protein [Mass/Vol] 6.0 g/dL Critically low 6.4-8.2 [facility] Comment on above: Performed By: #### C MP #### [facility] [address] [address] [address] Soila Pastor Sodium [Moles/Vol] 145 mmol/L Normal 136-145 [facility] Comment on above: Performed By: #### C MP #### [facility] [address] [address] [address] Soila Pastor Urea nitrogen [Mass/Vol] 11.0 mg/dL Normal 7.0-18.0 [facility] Comment on above: Performed By: #### C MP #### [facility] [address] [place] [address] Dr. Soila Pastor Urea nitrogen/Creatinin e [Mass ratio] 14.9 mg/mg Normal [facility] Comment on above: Performed By: #### C MP #### [facility] [address] [place] [address] Dr. Soila Pastor CARDIAC KARYN 3-6on 3 CK [Catalytic activity/Vol] 251 U/L Critically high 26-192 [facility] Comment on above: Performed By: #### E RUR #### [facility] [address] [place] [address] Dr. Soila Pastor CK.MB [Mass/Vol] 4.50 ng/mL Critically high <=3.60 [facility] Comment on above: Performed By: #### E RUR #### [facility] [address] [place] [address] Dr. Soila Pastor HSTROP 6.9 pg/mL Normal 4.0-51.3 [facility] Comment on above: Result Comment: CUT- OFF POINTS HAVE BEEN ESTABLISHED BASED ON THE FOURTH UNIVERSAL DEFINITIONS OF MYOCARDIAL INFARCTION. THE UPPER REFERENCE LIMIT (URL) OF TROPONIN, DEFINED THE 99TH PERCENTILE OF cTnI DISTRIBUTION IN A REFERENCE POPULATION, HAS BEEN CONFIRMED THE DECISION THRESHOLD FOR [place] DIAGNOSIS. Performed By: #### E RUR #### [facility] [address] [place] [address] Dr. Soila Pastor CK [Catalytic activity/Vol] 143 U/L Normal 26-192 [facility] Comment on above: Performed By: #### E RUR #### [facility] [address] [place] [address] Dr. Soila Pastor CK.MB [Mass/Vol] 4.50 ng/mL Critically high <=3.60 [facility] Comment on above: Performed By: #### E RUR #### [facility] [address] [place] [address] Dr. Soila Pastor HSTROP 8.9 pg/mL Normal 4.0-51.3 [facility] Comment on above: Result Comment: CUT- OFF POINTS HAVE BEEN ESTABLISHED BASED ON THE FOURTH UNIVERSAL DEFINITIONS OF MYOCARDIAL INFARCTION. THE UPPER REFERENCE LIMIT (URL) OF TROPONIN, DEFINED THE 99TH PERCENTILE OF cTnI DISTRIBUTION IN A REFERENCE POPULATION, HAS BEEN CONFIRMED THE DECISION THRESHOLD FOR [place] DIAGNOSIS. Performed By: #### E RUR #### [facility] [address] [place] [address] Dr. Soila Pastor CBC AUTO DIFFon 10-15-2022 BASO # 0.0 103/ul Normal 0.0-0.1 [facility] Comment on above: Performed By: #### C BC #### [facility] [address] [place] [address] Dr. Soila Pastor Basophils/100 WBC (Bld) 0.2 % Normal 0.2-2.0 [facility] Comment on above: Performed By: #### C BC #### [facility] [address] [place] [address] Dr. Soila Pastor EO # 0.0 103/ul Normal 0.0-0.7 [facility] Comment on above: Performed By: #### C BC #### [facility] [address] [place] [address] Dr. Soila Pastor Eosinophils/100 WBC (Bld) 0.4 % Critically low 0.9-7.0 [facility] Comment on above: Performed By: #### C BC #### [facility] [address] [place] [address] Dr. Soila Pastor Erythrocyte distribution width (RBC) [Ratio] 13.7 % Normal 11.0-15.0 [facility] Comment on above: Performed By: #### C BC #### [facility] [address] [place] [address] Dr. Soila Pastor Hematocrit (Bld) [Volume fraction] 34.4 % Critically low 36.0-48.0 [facility] Comment on above: Performed By: #### C BC #### [facility] [address] [place] [address] Dr. Soila Pastor Hemoglobin (Bld) [Mass/Vol] 10.7 g/dL Critically low 12.0-16.0 [facility] Comment on above: Performed By: #### C BC #### [facility] [address] [address] [address] Soila Pastor IG # 0.21 10e3/ul Critically high 0.00-0.03 [facility] Comment on above: Performed By: #### C BC #### [facility] [address] [address] [address] Soila Pastor IG % 2.1 % Critically high 0.0-0.5 [facility] Comment on above: Performed By: #### C BC #### [facility] [address] [address] [address] Soila Pastor LYMPH # 0.9 103/ul Critically low 1.2-3.8 [facility] Comment on above: Performed By: #### C BC #### [facility] [address] [place] [address] Dr. Soila Pastor Lymphocytes/100 WBC (Bld) 8.9 % Critically low 20.5-60.0 [facility] Comment on above: Performed By: #### C BC #### [facility] [address] [place] [address] Dr. Soila Pastor MANUAL DIFF REQ NO Normal [facility] Comment on above: Performed By: #### C BC #### [facility] [address] [place] [address] Dr. Soila Pastor MCH (RBC) [Entitic mass] 30.7 pg Normal 26.7-34.0 [facility] Comment on above: Performed By: #### C BC #### [facility] [address] [place] [address] Dr. Soila Pastor MCHC (RBC) [Mass/Vol] 31.1 g/dL Normal 29.9-35.2 [facility] Comment on above: Performed By: #### C BC #### [facility] [address] [place] [address] Dr. Soila Pastor MCV (RBC) [Entitic vol] 98.9 fL Normal 81.0-99.0 [facility] Comment on above: Performed By: #### C BC #### [facility] [address] [place] [address] Dr. Soila Pastor MONO # 0.4 103/ul Normal 0.3-0.8 [facility] Comment on above: Performed By: #### C BC #### [facility] [address] [place] [address] Dr. Soila Pastor Monocytes/100 WBC (Bld) 4.3 % Normal 1.7-12.0 [facility] Comment on above: Performed By: #### C BC #### [facility] [address] [place] [address] Dr. Soila Pastor NEUT # 8.4 103/ul Critically high 1.4-6.5 [facility] Comment on above: Performed By: #### C BC #### [facility] [address] [place] [address] Dr. Soila Pastor Neutrophils/100 WBC (Bld) 84.1 % Critically high 43.0-75.0 [facility] Comment on above: Performed By: #### C BC #### [facility] [address] [place] [address] Dr. Soila Pastor Platelet mean volume (Bld) [Entitic vol] 12.2 fL Normal 9.5-13.5 [facility] Comment on above: Performed By: #### C BC #### [facility] [address] [place] [address] Dr. Soila Pastor PLT 160 103/ul Normal 150-450 [facility] Comment on above: Performed By: #### C BC #### [facility] [address] [place] [address] Dr. Soila Pastor RBC 3.48 106/ul Critically low 4.20-5.40 [facility] Comment on above: Performed By: #### C BC #### [facility] [address] [place] [address] Dr. Soila Pastor WBC 9.9 103/ul Normal 4.0-11.0 [facility] Comment on above: Performed By: #### C BC #### [facility] [address] [place] [address] Dr. Soila Pastor CULTURE URINEon 04-26-2023 CULTURE URINE Culture Observations : NO GROWTH. Normal [facility] Comment on above: Performed By: #### P OCGLUC #### [facility] [address] [address] [address] Soila Pastor MAGNESIUMon 10-15-2022 Magnesium [Mass/Vol] 1.8 mg/dL Normal 1.8-2.4 [facility] Comment on above: Performed By: #### T 4, MG #### [facility] [address] [place] [address] Dr. Soila Pastor POINT OF CARE GLUCOSEon 09-21 Glucose [Mass/Vol] 123 mg/dL Critically high 74-106 [facility] Comment on above: Performed By: #### P OCGLUC #### [facility] [address] [place] [address] Dr. Soila Pastor Glucose [Mass/Vol] 128 mg/dL Critically high 74-106 [facility] Comment on above: Performed By: #### E RUR #### [facility] [address] [address] [address] Soila Pastor Glucose [Mass/Vol] 111 mg/dL Critically high 74-106 [facility] Comment on above: Performed By: #### P OCGLUC #### [facility] [address] [place] [address] Dr. Soila Pastor PROF 14(COMP METB)on 023 Albumin [Mass/Vol] 2.3 g/dL Critically low 3.4-5.0 [facility] Comment on above: Performed By: #### C MP #### [facility] [address] [place] [address] Dr. Soila Pastor Albumin/Globulin [Mass ratio] 0.7 {ratio} Normal [facility] Comment on above: Performed By: #### C MP #### [facility] [address] [place] [address] Dr. Soila Pastor ALP [Catalytic activity/Vol] 70 U/L Normal 46-116 [facility] Comment on above: Performed By: #### C MP #### [facility] [address] [address] [address] Soila Pastor ALT [Catalytic activity/Vol] 11 U/L Critically low 14-59 [facility] Comment on above: Performed By: #### C MP #### [facility] [address] [address] [address] Soila Pastor Anion gap [Moles/Vol] 11.2 mmol/L Normal [facility] Comment on above: Performed By: #### C MP #### [facility] [address] [address] [address] Soila Pastor AST [Catalytic activity/Vol] 32 U/L Normal 15-37 [facility] Comment on above: Performed By: #### C MP #### [facility] [address] [place] [address] Dr. Soila Pastor Bilirubin [Mass/Vol] 0.5 mg/dL Normal 0.2-1.0 [facility] Comment on above: Performed By: #### C MP #### [facility] [address] [address] [address] Soila Pastor Calcium [Mass/Vol] 7.8 mg/dL Critically low 8.5-10.1 [facility] Comment on above: Performed By: #### C MP #### [facility] [address] [place] [address] Dr. Soila Pastor Chloride [Moles/Vol] 104 mmol/L Normal 98-107 [facility] Comment on above: Performed By: #### C MP #### [facility] [address] [address] [address] Soila Pastor CO2 [Moles/Vol] 26.4 mmol/L Normal 21.0-32.0 [facility] Comment on above: Performed By: #### C MP #### [facility] [address] [address] [address] Soila Pastor Creatinine [Mass/Vol] 1.05 mg/dL Critically high 0.55-1.02 [facility] Comment on above: Performed By: #### C MP #### [facility] [address] [place], [place] [id number] Dr. Soila Pastor EGFR-AF KAZAKH >60 Normal >=60 [facility] Comment on above: Performed By: #### C MP #### [facility] [address] [address] [address] Soila Pastor EGFR-NON AF KAZAKH 50 mL/min/1.73m2 Critically low >=60 [facility] Comment on above: Performed By: #### C MP #### [facility] [address] [address] [address] Soila Pastor Globulin (S) [Mass/Vol] 3.5 g/dL Normal [facility] Comment on above: Performed By: #### C MP #### [facility] [address] [address] [address] Soila Pastor Glucose [Mass/Vol] 153 mg/dL Critically high 74-106 [facility] Comment on above: Performed By: #### C MP #### [facility] [address] [address] [address] Soila Pastor Potassium [Moles/Vol] 4.6 mmol/L Normal 3.5-5.1 [facility] Comment on above: Performed By: #### C MP #### [facility] [address] [address] [address] Soila Pastor Protein [Mass/Vol] 5.8 g/dL Critically low 6.4-8.2 [facility] Comment on above: Performed By: #### C MP #### [facility] [address] [address] [address] Soila Pastor Sodium [Moles/Vol] 137 mmol/L Normal 136-145 [facility] Comment on above: Performed By: #### C MP #### [facility] [address] [address] [address] Soila Pastor Urea nitrogen [Mass/Vol] 19.0 mg/dL Critically high 7.0-18.0 [facility] Comment on above: Performed By: #### C MP #### [facility] [address] [address] [address] Soila Pastor Urea nitrogen/Creatinin e [Mass ratio] 18.1 mg/mg Normal [facility] Comment on above: Performed By: #### C MP #### [facility] [address] [place] [address] Dr. Soila Pastor T4on 10-15-2022 T4 [Mass/Vol] 7.30 ug/dL Normal 4.80-13.90 [facility] Comment on above: Performed By: #### T 4, MG #### [facility] [address] [place] [address] Dr. Soila Pastor ACETONE SERUMon 10-14-2022 ACETONE Negative Normal NEGATIVE [facility] Comment on above: Performed By: #### E RUR #### [facility] [address] [place] [address] Dr. Soila Pastor AMMONIAon 10-14-2022 Ammonia (P) [Moles/Vol] 24 umol/L Normal 11-32 [facility] Comment on above: Performed By: #### E RUR #### [facility] [address] [place] [address] Dr. Soila Pastor BLOOD GASES BTYon 10-14-2022 02 MODE ROOM AIR [facility] Comment on above: Performed By: #### E RUR #### [facility] [address] [place] [address] Dr. Soila Pastor ALLENS TEST Positive [facility] Comment on above: Performed By: #### E RUR #### [facility] [address] [place] [address] Dr. Soila Pastor Base excess Calc (Bld) [Moles/Vol] 1.0 mmol/L Normal -2.0-2.0 [facility] Comment on above: Performed By: #### E RUR #### [facility] [address] [place] [address] Dr. Soila Pastor BIPAP PRESSURE Normal [facility] Comment on above: Performed By: #### E RUR #### [facility] [address] [place] [address] Dr. Soila Pastor CPAP Normal [facility] Comment on above: Performed By: #### E RUR #### [facility] [address] [place] [address] Dr. Soila Pastor FIO2 [facility] Comment on above: Performed By: #### E RUR #### [facility] [address] [place] [address] Dr. Soila Pastor HCO3 (Bld) [Moles/Vol] 26.0 mmol/L Normal 22.0-26.0 [facility] Comment on above: Performed By: #### E RUR #### [facility] [address] [place] [address] Dr. Soila Pastor LPM [facility] Comment on above: Performed By: #### E RUR #### [facility] [address] [place] [address] Dr. Soila Pastor MINUTE VOLUME Normal [facility] Comment on above: Performed By: #### E RUR #### [facility] [address] [place] [address] Dr. Soila Pastor Oxygen (Bld) [Partial pressure] 92.6 mm[Hg] Normal 80.0-100.0 [facility] Comment on above: Performed By: #### E RUR #### [facility] [address] [place] [address] Dr. Soila Pastor Oxygen saturation in Blood 97.0 % Normal 95.0-100.0 [facility] Comment on above: Performed By: #### E RUR #### [facility] [address] [place] [address] Dr. Soila Pastor PCO2 43.2 mmHg Normal 35.0-45.0 [facility] Comment on above: Performed By: #### E RUR #### [facility] [address] [place] [address] Dr. Soila Pastor PEEP [facility] Comment on above: Performed By: #### E RUR #### [facility] [address] [place] [address] Dr. Soila Pastor pH (Bld) 7.389 [pH] Normal 7.350-7.450 [facility] Comment on above: Performed By: #### E RUR #### [facility] [address] [place] [address] Dr. Soila Pastor [facility] Comment on above: Performed By: #### E RUR #### [facility] [address] [place] [address] Dr. Soila Pastro [facility] Comment on above: Performed By: #### E RUR #### [facility] [address] [place] [address] Dr. Soila Pastor PUNCTURE SITE LR [facility] Comment on above: Performed By: #### E RUR #### [facility] [address] [place] [address] Dr. Soila Pastor [facility] Comment on above: Performed By: #### E RUR #### [facility] [address] [place] [address] Dr. Soila Pastor VENT [facility] Comment on above: Performed By: #### E RUR #### [facility] [address] [place] [address] Dr. Soila Pastor [facility] Comment on above: Performed By: #### E RUR #### [facility] [address] [place] [address] Dr. Soila Pastor BNPon 10-14-2022 Natriuretic peptide B (Bld) [Mass/Vol] 432.0 pg/mL Normal <=1,800.0 [facility] Comment on above: Performed By: #### P OCGLUC #### [facility] [address] [place] [address] Dr. Soila Pastor CBC AUTO DIFFon 10-14-2022 BASO # 0.1 103/ul Normal 0.0-0.1 [facility] Comment on above: Performed By: #### P OCGLUC #### [facility] [address] [place] [address] Dr. Soila Pastor Basophils/100 WBC (Bld) 0.3 % Normal 0.2-2.0 [facility] Comment on above: Performed By: #### P OCGLUC #### [facility] [address] [place] [address] Dr. Soila Pastor EO # 0.3 103/ul Normal 0.0-0.7 [facility] Comment on above: Performed By: #### P OCGLUC #### [facility] [address] [place] [address] Dr. Soila Pastor Eosinophils/100 WBC (Bld) 1.7 % Normal 0.9-7.0 [facility] Comment on above: Performed By: #### P OCGLUC #### [facility] [address] [place] [address] Dr. Soila Pastor Erythrocyte distribution width (RBC) [Ratio] 13.5 % Normal 11.0-15.0 [facility] Comment on above: Performed By: #### P OCGLUC #### [facility] [address] [place] [address] Dr. Soila Pastor Hematocrit (Bld) [Volume fraction] 38.5 % Normal 36.0-48.0 [facility] Comment on above: Performed By: #### P OCGLUC #### [facility] [address] [place] [address] Dr. Soila Pastor Hemoglobin (Bld) [Mass/Vol] 12.2 g/dL Normal 12.0-16.0 [facility] Comment on above: Performed By: #### P OCGLUC #### [facility] [address] [place] [address] Dr. Soila Pastor IG # 0.06 10e3/ul Critically high 0.00-0.03 [facility] Comment on above: Performed By: #### P OCGLUC #### [facility] [address] [place] [address] Dr. Soila Pastor IG % 0.4 % Normal 0.0-0.5 [facility] Comment on above: Performed By: #### P OCGLUC #### [facility] [address] [place] [address] Dr. Soila Pastor LYMPH # 2.5 103/ul Normal 1.2-3.8 [facility] Comment on above: Performed By: #### P OCGLUC #### [facility] [address] [address] [address] Soila Pastor Lymphocytes/100 WBC (Bld) 17.2 % Critically low 20.5-60.0 [facility] Comment on above: Performed By: #### P OCGLUC #### [facility] [address] [place] [address] Dr. Soila Pastor MANUAL DIFF REQ NO Normal [facility] Comment on above: Performed By: #### P OCGLUC #### [facility] [address] [address] [address] Soila Pastor MCH (RBC) [Entitic mass] 30.0 pg Normal 26.7-34.0 [facility] Comment on above: Performed By: #### P OCGLUC #### [facility] [address] [place] [address] Dr. Soila Pastor MCHC (RBC) [Mass/Vol] 31.7 g/dL Normal 29.9-35.2 [facility] Comment on above: Performed By: #### P OCGLUC #### [facility] [address] [place] [address] Dr. Soila Pastor MCV (RBC) [Entitic vol] 94.8 fL Normal 81.0-99.0 [facility] Comment on above: Performed By: #### P OCGLUC #### [facility] [address] [place] [address] Dr. Soila Pastor MONO # 1.5 103/ul Critically high 0.3-0.8 [facility] Comment on above: Performed By: #### P OCGLUC #### [facility] [address] [place] [address] Dr. Soila Pastor Monocytes/100 WBC (Bld) 9.9 % Normal 1.7-12.0 [facility] Comment on above: Performed By: #### P OCGLUC #### [facility] [address] [place] [address] Dr. Soila Pastor NEUT # 10.3 103/ul Critically high 1.4-6.5 [facility] Comment on above: Performed By: #### P OCGLUC #### [facility] [address] [address] [address] Soila Pastor Neutrophils/100 WBC (Bld) 70.5 % Normal 43.0-75.0 [facility] Comment on above: Performed By: #### P OCGLUC #### [facility] [address] [address] [address] Soila Pastor Platelet mean volume (Bld) [Entitic vol] 11.3 fL Normal 9.5-13.5 [facility] Comment on above: Performed By: #### P OCGLUC #### [facility] [address] [address] [address] Soila Pastor PLT 151 103/ul Normal 150-450 [facility] Comment on above: Performed By: #### P OCGLUC #### [facility] [address] [address] [address] Soila Pastor RBC 4.06 106/ul Critically low 4.20-5.40 [facility] Comment on above: Performed By: #### P OCGLUC #### [facility] [address] [address] [address] Soila Pastor WBC 14.7 103/ul Critically high 4.0-11.0 [facility] Comment on above: Performed By: #### P OCGLUC #### [facility] [address] [address] [address] HEAD WO CONon [...] PAVEL SANCHEZ Date: 2022-10-14 20:13 Normal [facility] CULTURE BLOODon 10-14-2022 Microscopic examination of blood, culture Culture Observations: NO GROWTH AT 5 DAYS. Normal [facility] Comment on above: Performed By: #### P OCGLUC #### [facility] [address] [address] [address] Soila Pastor Microscopic examination of blood, culture Culture Observations: NO GROWTH AT 5 DAYS. Normal [facility] Comment on above: Performed By: #### P OCGLUC #### [facility] [address] [address] [address] Soila Pastor Covid-19 PCR (CVDTB)on 09-21 SARS-CoV-2 (COVID-19) RNA JERALD+probe Ql (Unsp spec) Not detected Normal NOT DETECTED [facility] Comment on above: Result Comment: When [...] for this test is supported by the [employer] of Health and Human Service's declaration that [...] used). Performed By: #### C VDTBH #### [facility] [address] [place] [address] Dr. Soila Pastor ER URINE PROFILEon 3 Bilirubin Ql (U) Negative Normal NEGATIVE [facility] Comment on above: Performed By: #### E RUR #### [facility] [address] [place] [address] Dr. Soila Pastor Clarity (U) CLEAR Normal CLEAR [facility] Comment on above: Performed By: #### E RUR #### [facility] [address] [place] [address] Dr. Soila Pastor Color (U) YELLOW Normal YELLOW [facility] Comment on above: Performed By: #### E RUR #### [facility] [address] [place] [address] Dr. Soila Pastor ERUAHAmadeo A micrscopic examina tion will be performed if indicated. Normal [facility] Comment on above: Performed By: #### E RUR #### [facility] [address] [place] [address] Dr. Soila Pastor Glucose Ql (U) Negative Normal NEGATIVE [facility] Comment on above: Performed By: #### E RUR #### [facility] [address] [place] [address] Dr. Soila aPstor Hemoglobin Ql (U) Negative Normal NEGATIVE [facility] Comment on above: Performed By: #### E RUR #### [facility] [address] [place] [address] Dr. Soila Pastor Ketones Ql (U) TRACE Abnormal NEGATIVE [facility] Comment on above: Performed By: #### E RUR #### [facility] [address] [place] [address] Dr. Soila Pastor LEUKOCYTES Negative Normal NEGATIVE [facility] Comment on above: Performed By: #### E RUR #### [facility] [address] [place] [address] Dr. Soila Pastor Nitrite Ql (U) Negative Normal NEGATIVE [facility] Comment on above: Performed By: #### E RUR #### [facility] [address] [place] [address] Dr. Soila Pastor pH (U) 5.0 [pH] Normal 5-9 [facility] Comment on above: Performed By: #### E RUR #### [facility] [address] [place] [address] Dr. Soila Pastor SPEC GRAVITY 1.020 Normal 1.005-<=1.0 25 [facility] Comment on above: Performed By: #### E RUR #### [facility] [address] [place] [address] Dr. Soila Pastor UA PROTEIN Negative Normal NEGATIVE/ TRACE [facility] Comment on above: Performed By: #### E RUR #### [facility] [address] [place] [address] Dr. Soila Pastor UR MICRO IND NOT INDICATED Normal [facility] Comment on above: Performed By: #### E RUR #### [facility] [address] [place] [address] Dr. Soila Pastor Urobilinogen Qn (U) 1.0 {Betsy'U}/dL Normal 0.2 - 1.0 [facility] Comment on above: Performed By: #### E RUR #### [facility] [address] [place] [address] Dr. Soila Pastor LACTATE/LACTIC ACIDon 2022 Lactate [Moles/Vol] 1.4 mmol/L Normal 0.4-2.0 [facility] Comment on above: Performed By: #### E RUR #### [facility] [address] [place] [address] Dr. Soila Pastor PH VENOUS BLOODon 10-14-2022 PCO2 VENOUS 47.6 mmHg Normal 40.0-52.0 [facility] Comment on above: Performed By: #### E RUR #### [facility] [address] [place] [address] Dr. Soila Pastor pH VENOUS 7.401 Normal 7.330-7.430 [facility] Comment on above: Performed By: #### E RUR #### [facility] [address] [address] [address] Soila Pastor PROF 14(COMP METB)on 023 Albumin [Mass/Vol] 3.2 g/dL Critically low 3.4-5.0 [facility] Comment on above: Performed By: #### P OCGLUC #### [facility] [address] [address] [address] Soila Pastor Albumin/Globulin [Mass ratio] 0.8 {ratio} Normal [facility] Comment on above: Performed By: #### P OCGLUC #### [facility] [address] [address] [address] Soila Pastor ALP [Catalytic activity/Vol] 85 U/L Normal 46-116 [facility] Comment on above: Performed By: #### P OCGLUC #### [facility] [address] [place] [address] Dr. Soila Pastor ALT [Catalytic activity/Vol] 13 U/L Critically low 14-59 [facility] Comment on above: Performed By: #### P OCGLUC #### [facility] [address] [place] [address] Dr. Soila Pastor Anion gap [Moles/Vol] 9.5 mmol/L Normal [facility] Comment on above: Performed By: #### P OCGLUC #### [facility] [address] [place] [address] Dr. Soila Pastor AST [Catalytic activity/Vol] 12 U/L Critically low 15-37 [facility] Comment on above: Performed By: #### P OCGLUC #### [facility] [address] [place] [address] Dr. Soila Pastor Bilirubin [Mass/Vol] 0.5 mg/dL Normal 0.2-1.0 [facility] Comment on above: Performed By: #### P OCGLUC #### [facility] [address] [place] [address] Dr. Soila Pastor Calcium [Mass/Vol] 9.0 mg/dL Normal 8.5-10.1 [facility] Comment on above: Performed By: #### P OCGLUC #### [facility] [address] [address] [address] Soila Pastor Chloride [Moles/Vol] 99 mmol/L Normal 98-107 [facility] Comment on above: Performed By: #### P OCGLUC #### [facility] [address] [address] [address] Soila Pastor CO2 [Moles/Vol] 32.0 mmol/L Normal 21.0-32.0 [facility] Comment on above: Performed By: #### P OCGLUC #### [facility] [address] [address] [address] Soila Pastor Creatinine [Mass/Vol] 1.55 mg/dL Critically high 0.55-1.02 [facility] Comment on above: Performed By: #### P OCGLUC #### [facility] [address] [address] [address] Soila Pastor EGFR-AF KAZAKH 39 mL/min/1.73m2 Critically low >=60 [facility] Comment on above: Performed By: #### P OCGLUC #### [facility] [address] [address] [address] Soila Pastor EGFR-NON AF KAZAKH 32 mL/min/1.73m2 Critically low >=60 [facility] Comment on above: Performed By: #### P OCGLUC #### [facility] [address] [address] [address] Soila Pastor Globulin (S) [Mass/Vol] 3.8 g/dL Normal [facility] Comment on above: Performed By: #### P OCGLUC #### [facility] [address] [address] [address] Soila Pastor Glucose [Mass/Vol] 125 mg/dL Critically high 74-106 [facility] Comment on above: Performed By: #### P OCGLUC #### [facility] [address] [address] [address] Soila Pastor Potassium [Moles/Vol] 3.5 mmol/L Normal 3.5-5.1 [facility] Comment on above: Performed By: #### P OCGLUC #### [facility] [address] [place] [address] Dr. Soila Pastor Protein [Mass/Vol] 7.0 g/dL Normal 6.4-8.2 [facility] Comment on above: Performed By: #### P OCGLUC #### [facility] [address] [address] [address] Soila Pastor Sodium [Moles/Vol] 137 mmol/L Normal 136-145 [facility] Comment on above: Performed By: #### P OCGLUC #### [facility] [address] [place] [address] Dr. Soila Pastor Urea nitrogen [Mass/Vol] 21.0 mg/dL Critically high 7.0-18.0 [facility] Comment on above: Performed By: #### P OCGLUC #### [facility] [address] [place] [address] Dr. Soila Pastor Urea nitrogen/Creatinin e [Mass ratio] 13.5 mg/mg Normal [facility] Comment on above: Performed By: #### P OCGLUC #### [facility] [address] [place] [address] Dr. Soila Pastor PROTIMEon 10-14-2022 INR Coag (PPP) [Relative time] 1.01 {INR} Normal [facility] Comment on above: Performed By: #### C VDTBH #### [facility] [address] [place] [address] Dr. Soila Pastor INR GUIDELINES SEE BELOW Normal [facility] Comment on above: Result Comment: [place] RED INR: 2.0 - 3.0 CONDITIONS NOT LISTED BELOW 2.5 - 3.5 FOR PROSTHETIC HEART VALVE REPLACEMENT 2.5 - 3.5 RECURRENT THROMBOSIS Performed By: #### C VDTBH #### [facility] [address] [place] [address] Dr. Soila Pastor PT Coag (PPP) [Time] 10.7 s Normal 9.0-11.6 [facility] Comment on above: Performed By: #### C VDTBH #### [facility] [address] [place] [address] Dr. Soila Pastor PTTon 10-14-2022 aPTT Coag (Bld) [Time] 31.5 s Normal 22.3-36.2 The [facility] Comment on above: Performed By: #### E RUR #### [facility] [address] [address] [address] Soila Pastor TROPONIN, HIGH SENSITIVITYon 10-14-2022 HSTROP 8.8 pg/mL Normal 4.0-51.3 [facility] Comment on above: Result Comment: CUT- OFF POINTS HAVE BEEN ESTABLISHED BASED ON THE FOURTH UNIVERSAL DEFINITIONS OF MYOCARDIAL INFARCTION. THE UPPER REFERENCE LIMIT (URL) OF TROPONIN, DEFINED THE 99TH PERCENTILE OF cTnI DISTRIBUTION IN A REFERENCE POPULATION, HAS BEEN CONFIRMED THE DECISION THRESHOLD FOR [place] DIAGNOSIS. Performed By: #### P OCGLUC #### [facility] [address] [place] [address] Dr. Soila Pastor TSHon 10-14-2022 TSH 1.240 uIU/mL Normal 0.358-3.740 [facility] Comment on above: Performed By: #### P OCGLUC #### [facility] [address] [place] [address] Dr. Soila Pastor XR ANKLE LT MIN [...] Selin MCCALL Date: 2022-10-14 20:16 Normal [facility] XR CHEST 1 Von 10-14-2022 XR [...] KAELA HOOKER Date: 2022-10-14 20:15 Normal [facility] XR CHEST 2 Von 10-14-2022 [...] KARYN WASHINGTON Date: 2022-10-14 11:33 Normal [facility] CT CSPINE WO CONon CT CSPINE [...] REED LYNNE Date: 2022-08-24 18:47 Normal [facility] CT HEAD WO CONon 08-24-2022 CT [...] AMAYA FRENCH Date: 2022-08-24 18:57 Normal [facility] XR KNEE RT 4V or >on [...] VIKY WILLIAMSON Date: 2022-08-24 18:59 Normal [facility] US THYROIDon 05-29-2022 US THYROID EXAMINATION: [...] left thyroid nodules, grossly stable TI-RADS: The [employer] TI-RADS committee's white paper recommendations for thyroid lesions classified as TR4 (moderately suspicious) are listed below: > 1.0 cm. Follow-up ultrasound in 1, 2, 3, and 5 years. > 1.5 cm. FNA. J. Am Nikunj Radiol 2017;14:587-595. Electronically authenticated by: CARLOS SOOD Date: 2022-05-29 11:51 Normal [facility] Carotid Artery Dupl ex Ultrasounon 04-14-2022 [facility] Carotid Artery Duplex Ultrasoun [address], [address] [place] [address] Vascular Lab Report Carotid Artery Duplex Ultrasound Patient Name: JAQUEILN Jacobo Physician: [id number] Martha Navas MD, [facility] Study Date: 04/14/2022 Referring XOCHITL HERNANDEZ Physician: MRN/PID: [id number] PCP: Yossi Landers Accession/Order#: [id number] CC Report to: Date of : 1940 Technologist: Eleanor Marcus RD, [facility] Gender: F Technologist 2: Admission Status: Outpatient Location Performed: [facility] Diagnosis/ICD: 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 Indication: CAD, Cardiomyopathy, Dyspnea, Obesity, COPD, Diabetes, HTN, Hyperlipidemia, Former Smoker Procedure/CPT: 74747 Cerebrovascular Carotid Duplex scan complete-20463 CONCLUSIONS: Right Carotid: Findings are consistent with [...] cm/s Right Left ICA/CCA Ratio 1.5 1.9 [id number] Martha Navas MD, FACC Final Normal [facility] LAB Carotid Artery Dupl ex Ultrasoundon 04-14-2022 US.doppler Carotid arteries [facility] [address] [place] [address] [place] Work Phone: Height or Weight NOT Doneon 02-26-2022 Fall risk assessment a) No falls within the last year [facility] [place] [address] [place] Work Phone: Tobacco use status CPHS b) [facility] [address] [place] Work Phone: Office Visit [...] Ultrasound; Status:Hold For - Scheduling,Retrospective Authorization; Requested for:[id number]; Laterality : Bilateral SocHx: Former smoker Tobacco Use Screening; Status:Complete; Done: [id number] Patient Instructions Please bring all medicines, vitamins, [...] one year is recommended. TR 4: The [employer] TI-RADS committee's white paper recommendations for thyroid lesions classified as TR4 (moderately suspicious) are listed below: > 1.0 cm. Follow-up ultrasound in 1, 2, 3, and 5 years. > 1.5 cm. FNA. J. Am Nikunj Radiol 2017;14:587-595. Electronically authenticated by: AMAYA GRAMAJO Date: 2022-01-08 08:44 Normal [facility] CREATININEon 12-30-2021 Creatinine [Mass/Vol] 1.03 mg/dL Critically high 0.55-1.02 [facility] Comment on above: Performed By: #### P OCGLUC #### [facility] [address] [place] [address] Dr. Soila Pastor EGFR-AF KAZAKH >60 Normal >=60 [facility] Comment on above: Performed By: #### P OCGLUC #### [facility] [address] [address] [address] Soila Pastor EGFR-NON AF KAZAKH 52 mL/min/1.73m2 Critically low >=60 [facility] Comment on above: Performed By: #### P OCGLUC #### [facility] [address] [facility]ECK ST W CONon CT NECK ST W CON EXAMINATION: CT [...] by: CARLOS SOOD Date: 2021-12-30 21:32 Normal [facility] XR MODIFIED BARIUM SWALLOWon 12-05-2021 [...] AMAYA GRAMAJO Date: 2021-12-05 17:48 Normal [facility] Echocardiogramon 11-11-[address], [address], [place] [address] TRANSTHORACIC ECHOCARDIOGRAM REPORT Patient Name: JAQUELIN GARZA Reading Physician: [id number] Xochitl NORWOOD MD Study Date: 11/11/2021 Referring Physician: [id number] HERNANDEZ MRN/PID: [id number] PCP: Yossi Landers Accession/Order#: [id number] Department Location: [facility] Date of : 1940 Fellow: Gender: F Nurse: Admit Date: Coil Cutter: Eleanor Marcus CS, T Height: 162.56 cm CC Report to: Weight: 94.80 kg Study Type: Echocardiogram BSA: 1.99 m2 Blood Pressure: 124 /62 mmHg Diagnosis/ICD: I42.9-Cardiomyopathy, unspecified; R06.00-Dyspnea, unspecified Indication: CAD, HTN, Hyperlipidemia, Former Smoker, Bilateral Carotid Stenosis, Obesity Procedure/CPT: Echo Complete w Full Doppler-13968 Study Detail: The following Echo studies were [...] 0.9 m/s (0.6-0.9m/s) PV Max P.3 mmHg [id number] Xochitl Hernandez MD Electronically signed on 11/13/2021 at 4:32:53 PM Final Normal [facility] Office Visit (Cardiology)on 10-15-2021 Follow-up visit Diagnoses/Problems Assessed Coronary artery disease without angina pectoris (414.00) (I25.10) Bilateral carotid artery stenosis (433.10,433.30) (I65.23) Cardiomyopathy (425.4) (I42.9) Hyperlipidemia (272.4) (E78.5) Hypertension (401.9) (I10) Class 2 severe obesity with serious comorbidity and body mass index (BMI) of 35.0 to 35.9 in adult (278.01,V85.35) (E66.01,Z68.35) Diabetes mellitus (250.00) (E11.9) Former smoker (V15.82) (Z87.891) quit 1996, 2ppd Dyspnea (786.09) (R06.00) Orders Bilateral carotid [...] up in 4-5 months Retrieve records from [facility] Chief Complaint overdue. JAQUELIN NORWOOD is [...] EVERY DAY (more content not included)... Normal [employer] Tobacco Screening.on 022 Adult depression screening assessment No [facility] [address] [place] Work Phone: Fall risk assessment a) No falls within the last year [facility] [address] [place] Work Phone: Tobacco use status CPHS b) No [facility] [address] [place] Work Phone: Vital Signs Date Time Vital Sign Value Performing Clinician Facility 01-30-2025 14:05-0400 Body height 165.1 cm Yossi Landers MD Work Phone: [facility] 01-30-2025 14:05-0400 Body mass index (BMI) [Ratio] 30.79 kg/m2 Yossi Landers MD Work Phone: [facility] 01-30-2025 14:05-0400 Body temperature 96.91 [degF] Yossi Landers MD Work Phone: [facility] 01-30-2025 14:05-0400 Body weight 83.92 kg Yossi Landers MD Work Phone: [facility] 01-30-2025 14:05-0400 Diastolic blood pressure 64 mm[Hg] Yossi Landers MD Work Phone: [facility] 01-30-2025 14:05-0400 Heart rate 88 /min Yossi Landers MD Work Phone: [facility] 01-30-2025 14:05-0400 SaO2% (BldA) [Mass fraction] 97 % Yossi Landers MD Work Phone: [facility] 01-30-2025 14:05-0400 Systolic blood pressure 112 mm[Hg] Yossi Landers MD Work Phone: [facility] 01-16-2025 11:29-0400 Body height 165.1 cm Yossi Landers MD Work Phone: [facility] 01-16-2025 11:29-0400 Body mass index (BMI) [Ratio] 30.79 kg/m2 Yossi Landers MD Work Phone: [facility] 01-16-2025 11:29-0400 Body weight 83.92 kg Yossi Landers MD Work Phone: [facility] 01-16-2025 11:29-0400 Heart rate 70 /min Yossi Landers MD Work Phone: [facility] 01-16-2025 11:29-0400 SaO2% (BldA) [Mass fraction] 98 % Yossi Landers MD Work Phone: [facility] 01-09-2025 09:55-0400 Body height 165.1 cm Yossi Landers MD Work Phone: [facility] 01-09-2025 09:55-0400 Body mass index (BMI) [Ratio] 33.12 kg/m2 Yossi Landers MD Work Phone: [facility] 01-09-2025 09:55-0400 Body weight 90.27 kg Yossi Landers MD Work Phone: [facility] 01-09-2025 09:55-0400 Diastolic blood pressure 62 mm[Hg] Yossi Landers MD Work Phone: [facility] 01-09-2025 09:55-0400 Heart rate 66 /min Yossi Landers MD Work Phone: [facility] 01-09-2025 09:55-0400 Respiratory rate 17 /min Yossi Landers MD Work Phone: [facility] 01-09-2025 09:55-0400 SaO2% (BldA) [Mass fraction] 99 % Yossi Landers MD Work Phone: [facility] 01-09-2025 09:55-0400 Systolic blood pressure 100 mm[Hg] Yossi Landers MD Work Phone: [facility] 12-29-2024 14:43-0400 Body mass index (BMI) [Ratio] 27.64 kg/m2 Yen Hereford PA Work Phone: [facility] 12-29-2024 14:43-0400 Body weight 75.35 kg Yen Hereford PA Work Phone: [facility] 12-29-2024 14:43-0400 Diastolic blood pressure 70 mm[Hg] Yen Hereford PA Work Phone: [facility] 12-29-2024 14:43-0400 Systolic blood pressure 120 mm[Hg] Yen Kalyani PA Work Phone: [facility] 11-07-2024 11:05-0400 Body height 165.1 cm Yossi Landers MD Work Phone: [facility] 11-07-2024 11:05-0400 Body mass index (BMI) [Ratio] 30.29 kg/m2 Yossi Landers MD Work Phone: [facility] 11-07-2024 11:05-0400 Body weight 82.56 kg Yossi Landers MD Work Phone: [facility] 11-07-2024 11:05-0400 Diastolic blood pressure 72 mm[Hg] Yossi Landers MD Work Phone: [facility] 11-07-2024 11:05-0400 Heart rate 67 /min Yossi Landers MD Work Phone: [facility] 11-07-2024 11:05-0400 SaO2% (BldA) [Mass fraction] 97 % Yossi Landers MD Work Phone: [facility] 11-07-2024 11:05-0400 Systolic blood pressure 128 mm[Hg] Yossi Landers MD Work Phone: [facility] 10-07-2024 10:30-0400 Body height 165.1 cm Can Hemmer PA Work Phone: [facility] 10-07-2024 10:30-0400 Body mass index (BMI) [Ratio] 31.12 kg/m2 Can Hemmer PA Work Phone: [facility] 10-07-2024 10:30-0400 Body weight 84.82 kg Can Hemmer PA Work Phone: [facility] 10-07-2024 10:30-0400 Diastolic blood pressure 76 mm[Hg] Can Hemmer PA Work Phone: [facility] 10-07-2024 10:30-0400 Heart rate 80 /min Can Hemmer PA Work Phone: [facility] 10-07-2024 10:30-0400 SaO2% (BldA) [Mass fraction] 97 % Can Hemmer PA Work Phone: [facility] 10-07-2024 10:30-0400 Systolic blood pressure 134 mm[Hg] Can Hemmer PA Work Phone: [facility] 09-29-2024 10:57-0400 Body height 165.1 cm Can Hemmer PA Work Phone: [facility] 09-29-2024 10:57-0400 Diastolic blood pressure 78 mm[Hg] Can Hemmer PA Work Phone: [facility] 09-29-2024 10:57-0400 Heart rate 73 /min Acn Hemmer PA Work Phone: [facility] 09-29-2024 10:57-0400 Respiratory rate 18 /min Can Hemmer PA Work Phone: [facility] 09-29-2024 10:57-0400 SaO2% (BldA) [Mass fraction] 94 % Can Hemmer PA Work Phone: [facility] 09-29-2024 10:57-0400 Systolic blood pressure 136 mm[Hg] Can Hemmer PA Work Phone: [facility] 09-14-2024 11:08-0400 Body height 165.1 cm Yossi Landers MD Work Phone: [facility] 09-14-2024 11:08-0400 Body mass index (BMI) [Ratio] 33.45 kg/m2 Yossi Landers MD Work Phone: [facility] 09-14-2024 11:08-0400 Body weight 91.17 kg Yossi Landers MD Work Phone: [facility] 09-14-2024 11:08-0400 Diastolic blood pressure 64 mm[Hg] Yossi Landers MD Work Phone: [facility] 09-14-2024 11:08-0400 Heart rate 67 /min Yossi Landers MD Work Phone: [facility] 09-14-2024 11:08-0400 SaO2% (BldA) [Mass fraction] 96 % Yossi Landers MD Work Phone: [facility] 09-14-2024 11:08-0400 Systolic blood pressure 110 mm[Hg] Yossi Landers MD Work Phone: [facility] 07-29-2024 09:00-0500 Body height 165.1 cm Kristen William DO Work Phone: [facility] 07-29-2024 09:00-0500 Body mass index (BMI) [Ratio] 31.12 kg/m2 Kristen Nataliia DO Work Phone: [facility] 07-29-2024 09:00-0500 Body weight 84.82 kg Kristen Nataliia DO Work Phone: [facility] 07-29-2024 09:00-0500 Diastolic blood pressure 71 mm[Hg] Kristen Nataliia DO Work Phone: [facility] 07-29-2024 09:00-0500 Heart rate 63 /min Kristen Nataliia DO Work Phone: [facility] 07-29-2024 09:00-0500 SaO2% (BldA) [Mass fraction] 88 % Kristen Nataliia DO Work Phone: [facility] 07-29-2024 09:00-0500 Systolic blood pressure 123 mm[Hg] Kristen Nataliia DO Work Phone: [facility] 07-25-2024 10:50-0500 Body height 165.1 cm Yossi Landers MD Work Phone: [facility] 07-25-2024 10:50-0500 Body mass index (BMI) [Ratio] 31.12 kg/m2 Yossi Landers MD Work Phone: [facility] 07-25-2024 10:50-0500 Body weight 84.82 kg Yossi Landers MD Work Phone: [facility] 07-25-2024 10:50-0500 Diastolic blood pressure 70 mm[Hg] Yossi Landers MD Work Phone: [facility] 07-25-2024 10:50-0500 Heart rate 86 /min Yossi Landers MD Work Phone: [facility] 07-25-2024 10:50-0500 SaO2% (BldA) [Mass fraction] 97 % Yossi Landers MD Work Phone: [facility] 07-25-2024 10:50-0500 Systolic blood pressure 122 mm[Hg] Yossi Landers MD Work Phone: [facility] 07-21-2024 16:16-0500 Body height 165.1 cm Alessandro Levi DPM Work Phone: [facility] 07-21-2024 16:16-0500 Body mass index (BMI) [Ratio] 29.62 kg/m2 Alessandro Levi DPM Work Phone: [facility] 07-21-2024 16:16-0500 Body weight 80.74 kg Alessandro Levi DPM Work Phone: [facility] 07-21-2024 16:16-0500 Respiratory rate 18 /min Alessandro Levi DPM Work Phone: [facility] 07-12-2024 14:17-0500 Body height 165.1 cm Bel Ojeda MD Work Phone: [facility] 07-12-2024 14:17-0500 Body mass index (BMI) [Ratio] 29.62 kg/m2 Bel Ojeda MD Work Phone: [facility] 07-12-2024 14:17-0500 Body weight 80.74 kg Bel Ojeda MD Work Phone: [facility] 07-12-2024 14:17-0500 Diastolic blood pressure 60 mm[Hg] Bel Ojeda MD Work Phone: [facility] 07-12-2024 14:17-0500 Heart rate 69 /min Bel Ojeda MD Work Phone: [facility] 07-12-2024 14:17-0500 Systolic blood pressure 117 mm[Hg] Bel Ojeda MD Work Phone: [facility] 06-10-2024 10:50-0500 Body height 165.1 cm Yossi Landers MD Work Phone: [facility] 06-10-2024 10:50-0500 Body mass index (BMI) [Ratio] 29.62 kg/m2 Yossi Landers MD Work Phone: [facility] 06-10-2024 10:50-0500 Body weight 80.74 kg Yossi Landers MD Work Phone: [facility] 06-10-2024 10:50-0500 Diastolic blood pressure 68 mm[Hg] Yossi Landers MD Work Phone: [facility] 06-10-2024 10:50-0500 Heart rate 77 /min Yossi Landers MD Work Phone: [facility] 06-10-2024 10:50-0500 SaO2% (BldA) [Mass fraction] 98 % Yossi Landers MD Work Phone: [facility] 06-10-2024 10:50-0500 Systolic blood pressure 126 mm[Hg] Yossi Ladners MD Work Phone: [facility] 05-16-2024 13:06-0500 Body height 165.1 cm Yossi Landers MD Work Phone: [facility] 05-16-2024 13:06-0500 Diastolic blood pressure 70 mm[Hg] Yossi Landers MD Work Phone: [facility] 05-16-2024 13:06-0500 Heart rate 65 /min Yossi Landers MD Work Phone: [facility] 05-16-2024 13:06-0500 SaO2% (BldA) [Mass fraction] 99 % Yossi Landers MD Work Phone: [facility] 05-16-2024 13:06-0500 Systolic blood pressure 124 mm[Hg] Yossi Landers MD Work Phone: [facility] 05-02-2024 11:10-0500 Body height 165.1 cm Yossi Landers MD Work Phone: [facility] 05-02-2024 11:10-0500 Body mass index (BMI) [Ratio] 29.79 kg/m2 Yossi Landers MD Work Phone: [facility] 05-02-2024 11:10-0500 Body weight 81.19 kg Yossi Landers MD Work Phone: [facility] 05-02-2024 11:10-0500 Diastolic blood pressure 66 mm[Hg] Yossi Landers MD Work Phone: [facility] 05-02-2024 11:10-0500 Heart rate 73 /min Yossi Landers MD Work Phone: [facility] 05-02-2024 11:10-0500 SaO2% (BldA) [Mass fraction] 97 % Yossi Lanedrs MD Work Phone: [facility] 05-02-2024 11:10-0500 Systolic blood pressure 118 mm[Hg] Yossi Landers MD Work Phone: [facility] 04-28-2024 13:43-0500 Body height 165.1 cm Alessnadro Levi DPM Work Phone: [facility] 04-28-2024 13:43-0500 Body mass index (BMI) [Ratio] 31.95 kg/m2 Alessandro Levi DPM Work Phone: [facility] 04-28-2024 13:43-0500 Body weight 87.09 kg Alessandro Levi DPM Work Phone: [facility] 04-28-2024 13:43-0500 Diastolic blood pressure 80 mm[Hg] Alessandro Levi DPM Work Phone: [facility] 04-28-2024 13:43-0500 Heart rate 82 /min Alessandro Levi DPM Work Phone: [facility] 04-28-2024 13:43-0500 Systolic blood pressure 126 mm[Hg] Alessandro Levi DPM Work Phone: [facility] 03-08-2024 10:42-0400 Blood Pressure Location Mohamad Mouchli [facility] 03-08-2024 10:42-0400 Diastolic blood pressure 85 mm[Hg] Mohamad Mouchli [facility] 03-08-2024 10:42-0400 Heart rate 80 /min Mohamad Mouchli [facility] 03-08-2024 10:42-0400 Mean blood pressure 102 mm[Hg] Mohamad Mouchli [facility] 03-08-2024 10:42-0400 Respiratory rate 15 /min Mohamad Mouchli [facility] 03-08-2024 10:42-0400 SaO2% (BldA) [Mass fraction] 97 % Mohamad Mouchli [facility] 03-08-2024 10:42-0400 Systolic blood pressure 137 mm[Hg] Mohamad Mouchli [facility] 03-08-2024 10:30-0400 Blood Pressure Location Mohamad Mouchli [facility] 03-08-2024 10:30-0400 Diastolic blood pressure 94 mm[Hg] Mohamad Mouchli [facility] 03-08-2024 10:30-0400 Heart rate 82 /min Mohamad Mouchli [facility] 03-08-2024 10:30-0400 Mean blood pressure 106 mm[Hg] Mohamad Mouchli [facility] 03-08-2024 10:30-0400 Respiratory rate 27 /min Mohamad Mouchli [facility] 03-08-2024 10:30-0400 SaO2% (BldA) [Mass fraction] 99 % Mohamad Mouchli [facility] 03-08-2024 10:30-0400 Systolic blood pressure 129 mm[Hg] Mohamad Mouchli [facility] 03-08-2024 10:25-0400 Blood Pressure Location Mohamad Mouchli [facility] 03-08-2024 10:25-0400 Diastolic blood pressure 57 mm[Hg] Mohamad Mouchli [facility] 03-08-2024 10:25-0400 Heart rate 82 /min Mohamad Mouchli [facility] 03-08-2024 10:25-0400 Mean blood pressure 78 mm[Hg] Mohamad Mouchli [facility] 03-08-2024 10:25-0400 Respiratory rate 17 /min Mohamad Mouchli [facility] 03-08-2024 10:25-0400 SaO2% (BldA) [Mass fraction] 98 % Mohamad Mouchli [facility] 03-08-2024 10:25-0400 Systolic blood pressure 120 mm[Hg] Mohamad Mouchli [facility] 03-08-2024 10:17-0400 Body temperature 97.34 [degF] Mohamad Mouchli [facility] 03-08-2024 08:46-0400 Body temperature 98.06 [degF] Mohamad Mouchli [facility] 03-08-2024 08:46-0400 Respiratory rate 20 /min Mohamad Mouchli [facility] 02-18-2024 13:23-0400 Body height 165.1 cm Alessandro Levi DPM Work Phone: [facility] 02-18-2024 13:23-0400 Body mass index (BMI) [Ratio] 31.95 kg/m2 Alessandro Levi DPM Work Phone: [facility] 02-18-2024 13:23-0400 Body weight 87.09 kg Alessandro Levi DPM Work Phone: [facility] 02-18-2024 13:23-0400 Diastolic blood pressure 80 mm[Hg] Alessandro Levi DPM Work Phone: [facility] 02-18-2024 13:23-0400 Heart rate 88 /min Alessandro Levi DPM Work Phone: [facility] 02-18-2024 13:23-0400 Systolic blood pressure 125 mm[Hg] Alessandro Levi DPM Work Phone: [facility] 02-03-2024 10:52-0400 Diastolic blood pressure 67 mm[Hg] Mohamad Mouchli [facility] 02-03-2024 10:52-0400 Heart rate 80 /min Mohamad Mouchli [facility] 02-03-2024 10:52-0400 Mean blood pressure 87 mm[Hg] Mohamad Mouchli [facility] 02-03-2024 10:52-0400 Respiratory rate 29 /min Mohamad Mouchli [facility] 02-03-2024 10:52-0400 SaO2% (BldA) [Mass fraction] 100 % Mohamad Mouchli [facility] 02-03-2024 10:52-0400 Systolic blood pressure 127 mm[Hg] Mohamad Mouchli [facility] 02-03-2024 10:45-0400 Diastolic blood pressure 67 mm[Hg] Mohamad Mouchli [facility] 02-03-2024 10:45-0400 Heart rate 76 /min Mohamad Mouchli [facility] 02-03-2024 10:45-0400 Mean blood pressure 87 mm[Hg] Mohamad Mouchli [facility] 02-03-2024 10:45-0400 Respiratory rate 22 /min Mohamad Mouchli [facility] 02-03-2024 10:45-0400 SaO2% (BldA) [Mass fraction] 99 % Mohamad Mouchli [facility] 02-03-2024 10:45-0400 Systolic blood pressure 127 mm[Hg] Mohamad Mouchli [facility] 02-03-2024 10:40-0400 Diastolic blood pressure 67 mm[Hg] Mohamad Mouchli [facility] 02-03-2024 10:40-0400 Heart rate 76 /min Mohamad Mouchli [facility] 02-03-2024 10:40-0400 Mean blood pressure 87 mm[Hg] Mohamad Mouchli [facility] 02-03-2024 10:40-0400 Respiratory rate 28 /min Mohamad Mouchli [facility] 02-03-2024 10:40-0400 SaO2% (BldA) [Mass fraction] 100 % Mohamad Mouchli [facility] 02-03-2024 10:40-0400 Systolic blood pressure 127 mm[Hg] Mohamad Mouchli [facility] 02-03-2024 10:30-0400 Blood Pressure Location Mohamad Mouchli [facility] 02-03-2024 10:30-0400 Body temperature 97.7 [degF] Mohamad Mouchli [facility] 02-03-2024 10:25-0400 Respiratory rate 10 /min Mohamad Mouchli [facility] 02-03-2024 10:20-0400 Respiratory rate 10 /min Mohamad Mouchli [facility] 02-03-2024 10:15-0400 Respiratory rate 10 /min Mohamad Mouchli [facility] 02-03-2024 08:55-0400 Blood Pressure Location Mohamad Mouchli [facility] 02-03-2024 08:55-0400 Body temperature 97.7 [degF] Mohamad Mouchli [facility] 12-21-2023 13:43-0400 Blood Pressure Location Mohamad Mouchli [facility] 12-21-2023 13:43-0400 Diastolic blood pressure 78 mm[Hg] Mohamad Mouchli [facility] 12-21-2023 13:43-0400 Heart rate 76 /min Mohamad Mouchli [facility] 12-21-2023 13:43-0400 Respiratory rate 16 /min Mohamad Mouchli [facility] 12-21-2023 13:43-0400 Systolic blood pressure 118 mm[Hg] Mohamad Mouchli [facility] 02-26-2022 15:04-0400 Body height 162.56 cm Xochitl Hernandez MD Work Phone: [facility] 250 DO Work Phone: 02-26-2022 15:04-0400 Body mass index (BMI) [Ratio] Medical Reason Not Done Xochitl Hernandez MD Work Phone: [facility] 250 DO Work Phone: 02-26-2022 15:04-0400 Diastolic blood pressure 64 mm[Hg] Xochitl Hernandez MD Work Phone: [facility] 250 DO Work Phone: 02-26-2022 15:04-0400 Heart rate 72 /min Xochitl Hernandez MD Work Phone: [facility] 250 DO Work Phone: 02-26-2022 15:04-0400 Systolic blood pressure 120 mm[Hg] Xochitl Hernandez MD Work Phone: [facility] 250 DO Work Phone: 10-15-2021 12:59-0400 Body height 162.56 cm Xochitl Hernandez MD Work Phone: [facility] 250 DO Work Phone: 10-15-2021 12:59-0400 Body mass index (BMI) [Ratio] 35.87 kg/m2 Xochitl Hernandez MD Work Phone: [facility] 250 DO Work Phone: 10-15-2021 12:59-0400 Body surface area Derived from formula 1.99 m2 Xochitl Hernandez MD Work Phone: [facility] 250 DO Work Phone: 10-15-2021 12:59-0400 Body weight 94.8 kg Xochitl Hernandez MD Work Phone: [facility] 250 DO Work Phone: 10-15-2021 12:59-0400 Diastolic blood pressure 68 mm[Hg] Xochitl Hernandez MD Work Phone: [facility] 250 DO Work Phone: 10-15-2021 12:59-0400 Heart rate 66 /min Xochitl Hernandez MD Work Phone: [facility] 250 DO Work Phone: 10-15-2021 12:59-0400 Systolic blood pressure 124 mm[Hg] Xochitl Hernandez MD Work Phone: [facility] 250 DO Work Phone: Encounters Encounter Date Encounter Type Care Provider Facility Start: 02-06-2025 End: 02-07-2025 Alison PALACIOS Work Phone: [facility] [facility] Comment on above: Depression with anxi ety Start: 01-30-2025 End: 01-30-2025 Office outpatient visit 25 minutes Yossi Landers MD Work Phone: [facility] [place] [facility] Comment on above: COPD exacerbation (H CC) (Primary Dx); Panlobular emphysema (HCC); Depression with anxiety Start: 01-25-2025 End: 01-25-2025 ambulatory YOSSI LANDERS Not Available Start: 01-16-2025 End: 01-16-2025 Bamboo flowsheet Yossi Landers MD Work Phone: [facility] [place] [facility] Start: 01-16-2025 End: 01-16-2025 Bamboo flowsheet Yossi Landers MD Work Phone: [facility] [place] [facility] Start: 01-16-2025 End: 01-16-2025 Transitional care manage srvc 14 day discharge Yossi Landers MD Work Phone: [facility] [place] [facility] Comment on above: Panlobular emphysema (HCC) (Primary Dx); Depression with anxiety; Acute on chronic diastolic congestive heart failure (HCC); Chronic combined systolic and diastolic congestive heart failure (HCC) Start: 01-16-2025 End: 01-16-2025 ambulatory YOSSI LANDERS Not Available Start: 01-09-2025 End: 01-09-2025 Bamboo [...] 10-01-2024 ambulatory Yossi Landers II Work Phone: [facility] Work Phone: Start: 10-01-2024 End: 10-01-2024 Departed Referred Yossi Landers II Work Phone: [facility] Start: 09-29-2024 End: 09-29-2024 Bamboo flowsheet [...] FM Start: 08-14-2024 Non-patient / Non-visit Yossi Landers II Work Phone: [facility] Work Phone: Start: 08-13-2024 End: 08-13-2024 ambulatory Yossi Landers II Work Phone: [facility] Work Phone: Start: 08-13-2024 End: 08-13-2024 Departed Referred Yossi Landers II Work Phone: [facility] [place] [facility] Start: 08-13-2024 End: 08-15-2024 Clinisync Result [...] Office outpatient new 45 minutes Kristen Fatoumata Nataliia DO Work Phone: [facility] Comment [...] neuropathy, without long-term current use of insulin ([facility]) (Primary Dx); Pain due to onychomycosis of [...] Start: 03-08-2024 End: 03-08-2024 ambulatory Mandi Glez [facility] Start: 03-08-2024 End: 03-08-2024 Patient encounter procedure Mandi Glez [facility] Start: 03-02-2024 End: 03-02-2024 Refill Can [...] Start: 02-03-2024 End: 02-03-2024 ambulatory Mandi Glez Facility:[facility] Start: 02-03-2024 End: 02-03-2024 Patient encounter procedure Mandi Glez [facility] Start: 12-21-2023 End: 12-21-2023 ambulatory Mandi Glez Facility:[facility] Start: 12-21-2023 End: 12-21-2023 Patient encounter procedure Mandi Glez [facility] Start: 12-07-2023 ambulatory Mandi Glez Facilit y:[facility] Start: 08-03-2023 Refill Lara Thursday L PN Work Phone: [facility] Comment on above: Degenerative lumbar spinal stenosis; Depression with anxiety Start: 07-27-2023 Refill Yossi Landers MD Work Phone: [facility] Comment on above: Essential hypertensi on ([facility]) Start: 10-15-2022 End: 10-16-2022 Evaluation and management of inpatient TANYA CARMEN . Facility: Start: 10-14-2022 End: 10-15-2022 ambulatory KARYN WASHINGTON Facility:[facility]1 Start: 08-24-2022 End: 08-24-2022 ambulatory LAYNE TERRAZAS Facility:[facility]1 Start: 05-29-2022 End: 05-30-2022 ambulatory BEL OJEDA Facility:[facility]1 Start: 04-14-2022 Patient encounter procedure [id number] [facility]ICA [facility] ULTR[facility]OUND 01 Work Phone: -[facility] [place] Work Phone: Start: 04-14-[address] Xochitl Hernandez Facility:[id number] Start: 02-26-2022 Office outpatient vi sit 25 minutes Xochitl Hernandez MD Work Phone: [facility] 250 DO Work Phone: Start: 01-07-2022 End: 01-08-2022 ambulatory BEL OJEDA Facility:H1 Start: 12-30-2021 End: 12-31-[address] YOSSI LANDERS Facility:H1 Start: 12-05-2021 End: 12-06-[address] YOSSI LANDERS Facility:H1 Start: 11-11-[address] Xochitl Hernandez Facility:[id number] Start: 10-15-2021 Office outpatient vi sit 25 minutes Xochitl Hernandez MD Work Phone: [facility] 250 DO Work Phone: Procedures Date Procedure Procedure Detail Performing Clinician Start: 01-18-2025 H/O: surgery History of gastric surgery Yossi Landers MD Work Phone: Start: 10-01-2024 URINE CULTURE - [facility] Generic External Data Provider Start: 09-27-2024 BLOOD CULTURE 2 Generic External Data Provider Start: 09-27-2024 BLOOD CULTURE 1 Generic External Data Provider Start: 08-13-2024 URINE CULTURE - [facility] Generic External Data Provider Start: 08-13-2024 Urine [...] Treatment Date Care Activity Detail Author Start: 02-23-2025 End: 02-23-2025 Patient encounter procedure 02/23/2025 11:15 AM EDT Office Visit [facility] [place] [facility] [address] [place] [address] Yossi Landers MD [address] [place] [address] [facility] [place] [facility] Start: 02-20-2025 Influenza vaccination [facility] Start: 01-30-2025 End: 01-30-2025 Patient encounter procedure 01/30/2025 2:15 PM EDT Office Visit [facility] [place] [facility] [address] [place] [address] Yossi Landers MD [address] [place] [address] [facility] [facility] Start: 01-27-2025 Urine screening for protein Diabetes: Urine Protein Screening [facility] Start: 01-16-2025 End: 01-16-2025 Patient encounter procedure 01/16/2025 11:30 AM EDT Office Visit [facility] [place] [facility] [address] [place] [address] Yossi Landers MD [address] [place] [address] [facility] [place] [facility]: Arrived Start: 01-09-2025 End: 01-09-2025 Patient encounter procedure [facility] Comment on above: Arrived Start: 12-29-2024 End: 12-29-2024 Patient encounter procedure 12/29/2024 2:30 PM EDT Office Visit [facility] [address] [place] [id number] Yen Auguste PA [address] [place], [place] [id number] Arrived [facility] Comment on above: Arrived Start: 12-08-2024 Hemoglobin A1c measurement Diabetes: Hemoglobin A1C [facility] Start: 11-07-2024 End: 11-07-2025 Comprehensive metabolic 2000 panel - Serum or Plasma Comprehensive metabolic panel Lab Routine Chronic combined systolic and diastolic congestive heart failure ([facility]/HCC) Expected: 11/07/2024 (Approximate), Expires: 11/07/2025 [facility] Work Phone: Comment on above: Expected: 11/07/2024 (Approximate), Expires: 11/07/2025 Start: 11-07-2024 End: 11-07-2025 Lipid 1996 panel - Serum or Plasma Lipid panel Lab Routine Chronic combined systolic and diastolic congestive heart failure ([facility]/HCC) Expected: 11/07/2024 (Approximate), Expires: 11/07/2025 [facility] Comment on above: Expected: 11/07/2024 (Approximate), Expires: 11/07/2025 Start: 11-07-2024 End: 11-07-2025 Thyrotropin [Units/volume] in Serum or Plasma TSH Lab Routine Chronic combined systolic and diastolic congestive heart failure ([facility]/HCC) Expected: 11/07/2024 (Approximate), Expires: 11/07/2025 [facility] Comment on above: Expected: 11/07/2024 (Approximate), Expires: 11/07/2025 Start: 11-07-2024 End: 11-07-2025 Thyroxine (T4) free [Mass/volume] in Serum or Plasma T4, free Lab Routine Chronic combined systolic and diastolic congestive heart failure ([facility]/HCC) Expected: 11/07/2024 (Approximate), Expires: 11/07/2025 [facility] Comment on above: Expected: 11/07/2024 (Approximate), Expires: 11/07/2025 Start: 11-07-2024 End: 11-07-2024 Patient encounter procedure [facility] Comment on above: Arrived Start: 10-07-2024 End: 10-07-2024 Patient encounter procedure 10/07/2024 10:30 AM EDT Office Visit [facility] [address] [place] [address] Can Mason PA [address] [place] [address] [facility] Start: 10-06-2024 End: 10-06-2024 Patient encounter procedure [facility] Start: 10-01-2024 Bacteria identified in Urine by Culture Urine Culture [facility] Start: 10-01-2024 Urine culture [facility] Start: 09-29-2024 End: 09-29-2024 Patient encounter procedure 09/29/2024 11:00 AM EDT Office Visit [facility] [address] [place] [address] Can Mason PA [address] [place] [address] Arrived [facility] Comment on above: Arrived Start: 09-23-2024 End: 09-23-2024 Patient encounter procedure 09/23/2024 11:00 AM EDT Office Visit [facility] [address] [place] [phone] Kristen William, DO [address] [facility] [place] [address] [facility] Start: 09-22-2024 End: 09-22-2024 Patient encounter procedure 09/22/2024 11:30 AM EDT Office Visit [facility] [address] [place] [address] Yossi Landers MD [address] [place] [address] [facility] Start: 09-14-2024 End: 09-14-2024 Patient encounter procedure 09/14/2024 11:15 AM EDT Office Visit [facility] [address] [facility] [address] [place] [address] Yossi Landers MD [address] [facility] [address] [place] [address] Arrived [facility] Comment on above: Arrived Start: 08-13-2024 Urine culture [facility] Start: 08-13-2024 Bacteria identified in Urine by Culture Urine Culture [facility] Start: 08-02-2024 Hemoglobin A1c measurement Diabetes: Hemoglobin A1C [facility] Start: 07-29-2024 End: 07-29-2024 Patient encounter procedure [facility] Comment on above: Panlobular emphysema ([facility]) Start: 07-25-2024 End: 07-25-2024 Patient encounter procedure [facility] Comment on above: Arrived Start: 07-21-2024 End: 07-21-2024 Patient encounter procedure [facility] Comment on above: Type 2 diabetes gail itus with diabetic neuropathy, without long-term current use of insulin ([facility]) (Primary Dx); Pain due to onychomycosis of toenails of both feet; Venous insufficiency Start: 07-12-2024 End: 07-12-2024 Patient encounter procedure 07/12/2024 2:20 PM EST Office Visit [facility] [address] [facility] [address] [place] [address] Bel Ojeda MD [address] [facility] [address] [place] [address] [facility] Start: 07-07-2024 End: 07-07-2024 Patient encounter procedure 07/07/2024 1:40 PM EST Office Visit [facility] [address] [facility] [address] [place] [address] Alessandro Levi DPM [address] [address] [facility] Start: 06-30-2024 End: 06-30-2024 Patient encounter procedure 06/30/2024 11:45 AM EST Office Visit [facility] [address] [facility] [address] [place] [address] Yossi Landers MD [address] [place] [address] [facility] Start: 06-10-2024 End: 06-10-2024 Patient encounter procedure [facility] Comment on above: Arrived Start: 05-16-2024 End: 05-16-2024 Patient encounter procedure [facility] Comment on above: Arrived Start: 05-02-2024 End: 05-02-2024 Patient encounter procedure 05/02/2024 11:30 AM EST Office Visit [facility] [address] [facility] [address] [place] [address] Yossi Landers MD [address] [facility] [address] [place] [address] [facility] Start: 04-28-2024 End: 04-28-2024 Patient encounter procedure [facility] Comment on above: Type 2 diabetes gail itus with diabetic neuropathy, without long-term current use of insulin ([facility]) (Primary Dx); Pain due to onychomycosis of toenails of both feet; Venous insufficiency Start: 03-15-2024 Hemoglobin A1c measurement Diabetes: Hemoglobin A1C [facility] Start: 02-21-2024 Influenza vaccination Influenza Vacc ine (#1) [facility] Start: 02-18-2024 End: 02-18-2024 Patient encounter procedure 02/18/2024 1:20 PM EDT Office Visit [facility] [address] [place] [address] Alessandro Levi DPM [address] [address] Thickened nail; Type 2 diabetes mellitus with diabetic neuropathy, without long-term current use of insulin ([facility]) [facility] Comment on above: Thickened nail; Type 2 diabetes mellitus with diabetic neuropathy, without long-term current use of insulin ([facility]) Start: 02-10-2024 Medicare Annual Well ness (AWV) Medicare Annual Wellness (AWV) [facility] Start: 08-10-2023 End: 08-10-2023 Patient encounter procedure [facility] Start: 05-12-2023 Hemoglobin A1c measurement Diabetes: Hemoglobin A1C [facility] Start: 02-20-2023 Influenza vaccination Influenza Vacc ine (#1) [facility] Start: 08-12-2022 FUV, Provider: Xochitl Hernandez, Status: Pen, Time: 2:20 PM FUV, Provider: Xochitl Hernandez, Status: Pen, Time: 2:20 PM [facility] [employer] DO Work Phone: Start: 04-14-2022 CAROTID, Provider: ERICA [facility] ULTRASOUND 01,[id number], Status: Pen, Time: 10:45 AM CAROTID, Provider: ERICA STALLWORTHI ULTRASOUND 01,[id number], Status: Pen, Time: 10:45 AM [facility] [employer] 250 DO Work Phone: Start: 02-26-2022 FUV, Provider: Xochitl Hernandez, Status: Pen, Time: 2:40 PM FUV, Provider: Xochitl Hernandez, Status: Pen, Time: 2:40 PM [facility] [employer] 250 DO Work Phone: Start: 11-11-2021 ECHO, Provider: MEERA KHAN [facility] ULTR[facility]OUND 01,[id number], Status: Pen, Time: 10:45 AM ECHO, Provider: ERICA [facility] ULTRASOUND 01,[id number], Status: Pen, Time: 10:45 AM [facility] [employer] 250 DO Work Phone: Start: 07-30-2020 Glaucoma screening Diabetes: R etinopathy Screening [facility] Start: 06-17-2018 Pneumococcal Vaccine : 65+ Years (2 - PPSV23 or PCV20) Pneumococcal Vaccine: 65+ Years (2 - PPSV23 or PCV20) [facility] Start: 06-17-2018 Pneumococcal Vaccine : 65+ Years (2 of 2 - PPSV23 or PCV20) Pneumococcal Vaccine: 65+ Years (2 of 2 - PPSV23 or PCV20) [facility] Start: 06-17-2018 Pneumococcal Vaccine : 65+ Years (2 of 2 - PPSV23) Pneumococcal Vaccine: 65+ Years (2 of 2 - PPSV23) [facility] Basic metabolic 1998 panel - Serum or Plasma Basic metabolic panel Lab Routine Bilateral lower extremity edema Ordered: 10/07/2024 [facility] Work Phone: Comment on above: Ordered: 10/07/2024 BLOOD CULTURE 1 BLOOD CULTURE 1 Lab Routine 09/27/2024 12:40 PM EDT [facility] BLOOD CULTURE 2 BLOOD CULTURE 2 Lab Routine 09/27/2024 12:46 PM EDT [facility] CBC W Auto Different ial panel - Blood CBC and differential Lab Routine 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) Ordered: 11/07/2024 [facility] Comment on above: Ordered: 11/07/2024 Echocardiogram 2D complete Echocardiogram 2D complete Echocardiography Routine 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) Ordered: 05/02/2024 [facility] Work Phone: Comment on above: Ordered: 05/02/2024 URINE CULTURE - [facility] URINE CULTU RE [facility] Lab Routine 08/13/2024 5:00 PM EST [facility] URINE CULTURE - [facility] URINE CULTU RE - [facility] Lab Routine 10/01/2024 8:35 AM EDT [facility] Immunizations Immunization Date Immunization Notes Care Provider Fa cility 01-10-2025 Pneumococcal Conjuga te PCV 20 Yossi Landers MD Work Phone: [facility] 09-16-2020 Pfizer-BioNTech COVID-19 Vacc 30 MCG/0.3ML Intramuscular Suspension Xochitl Hernandez MD Work Phone: [facility] 250 DO Work Phone: 08-25-2020 [employer] COVID-19 Vacc 30 MCG/0.3ML Intramuscular Suspension Xochitl Hernandez MD Work Phone: [facility] 250 DO Work Phone: 05-07-2018 pneumococcal conjuga te vaccine, 13 valent Xochitl Hernandez MD Work Phone: [facility] 250 DO Work Phone: 04-22-2018 pneumococcal conjuga te vaccine, 13 valent Xochitl Hernandez MD Work Phone: [facility] 11-28-2015 zoster vaccine, live Xochitl Hernandez MD Work Phone: [facility] 01-10-2015 zoster vaccine, live Xochitl Hernandez MD Work Phone: [facility] Healthcare Payers Date Payer Category Payer Medicare [employer] MEDICARE ADVANTAGE [employer] MEDICARE [id number] 2022-Present [address] [address] [place] [address] [id number] 2022 Medicare (Managed Care) [id number]. [id number] 2022 Private Health Insurance [id number] 1959 Medicaid [id number] 1959 Medicare [id number] 1942 Unknown [id number] 2.16.840.1.594849.3.579.2. 1068 1942 Unknown [id number] 2.16.840.1.409138.3.579.2. 1068 1942 Unknown [id number] 2.16.840.1.702715.3.579.2. 593 1942 Unknown [id number] 2.16.840.1.448342.3.579.2. 593 1942 Unknown [id number] 2.16.840.1.611336.3.579.2. 593 1942 Unknown [id number] 2.16.840.1.854535.3.579.2. 593 1942 Unknown [id number] 2.16.840.1.460925.3.579.2. 593 1942 Unknown [id number] 2.16.840.1.358997.3.579.2. 593 1942 Unknown [id number] 2.16.840.1.379323.3.579.2. 593 1942 Unknown [id number] 2.16.840.1.253800.3.579.2. 727 1942 Unknown [id number] 2.16.840.1.423402.3.579.2. 727 1942 Unknown [id number] 2.16.840.1.207391.3.579.2. 727 1942 Unknown [id number] 2.16.840.1.800962.3.579.2. 1259 1942 Unknown [id number] 2.16.840.1.639245.3.579.2. 1259 1942 Unknown [id number] 2.16.840.1.819321.3.579.2. 1259 1942 Unknown [id number] 2.16.840.1.236743.3.579.2. 1259 1942 Unknown [id number] 2.16.840.1.584021.3.579.2. 1259 1942 Unknown [id number] 2.16.840.1.551923.3.579.2. 1259 1942 Unknown [id number] 2.16.840.1.276763.3.579.2. 1259 1942 Unknown [id number] 2.16.840.1.339400.3.579.2. 1258 1942 Unknown [id number] 2.16.840.1.284467.3.579.2. 1258 1942 Unknown [id number] 2.16.840.1.432254.3.579.2. 1258 1942 Unknown [id number] 2.16.840.1.536634.3.579.2. 1258 1942 Unknown [id number] 2.16.840.1.826389.3.579.2. 1258 1942 Unknown [id number] 2.16.840.1.542598.3.579.2. 1258 1942 Unknown [id number] 2.16.840.1.226595.3.579.2. 1258 1942 Unknown [id number] 2.16.840.1.949674.3.579.2. 1258 1942 Unknown [id number] 2.16.840.1.557876.3.579.2. 1258 1942 Unknown [id number] 2.16.840.1.255736.3.579.2. 1258 1942 Unknown [id number] 2.16.840.1.284745.3.579.2. 1258 1942 Unknown [id number] 2.16.840.1.458565.3.579.2. 1259 Unknown Social History Date Type Detail Facility Start: 11-12-2022 End: 01-30-2025 No alcohol use No alcohol use [facility] Healthcare Comment on above: 4-5 servings daily; quit 1996, 2ppd; Start: 11-20-2022 End: 02-18-2024 Tobacco smoking status [facility] Ex-smoker [facility] Healthcare Work Phone: End: 10-27-2012 History of tobacco use Current smoker [facility] End: 10-27-2012 History of tobacco use Cigarette Smoker [facility] Start: 11-20-2022 End: 02-18-2024 Tobacco use and exposure Smokeless tobacco non-user [facility] Start: 07-20-2023 End: 01-30-2025 Alcohol intake Ex-drinker (finding) [facility] Start: 11-12-2022 End: 01-30-2025 Humiliation, Afraid, Rape, and Kick questionnaire [HARK] [...] e: 2-3 cups per day of coffee [facility] Start: 1940 Sex Assigned At Not on file [facility] How often to you hav e a drink containing alcohol? Never [facility] Start: 08-15-2024 End: 10-02-2024 Sex Female (finding) [facility] Start: 1940 Sex Assigned At Female F [facility] How often do you nee d to have someone help you when you read instructions, pamphlets, or other written material from your doctor or pharmacy [SILS] Sometimes [facility] Work Phone: Medical Equipment Procedure Code Equipment Code Equipment Origin al Text Equipment Identifier Dates [id number] Start: 11-05-2022 USE 1 LANCET TO TEST BLOOD SUGAR ONCE DAILY [id number] Start: 11-05-2022 Functional Status Date Assessment Result Facility 01-30-2025 Patient Health Quest ionnaire 2 item (PHQ-2) [Reported] [facility] 01-16-2025 Patient Health Quest ionnaire 2 item (PHQ-2) [Reported] [facility] 01-09-2025 Patient Health Quest ionnaire 2 item (PHQ-2) [Reported] [facility] 01-09-2025 PHQ-9 quick depressi on assessment panel [Reported.PHQ] [facility] 11-07-2024 Patient Health Quest ionnaire 2 item (PHQ-2) [Reported] [facility] 10-07-2024 Patient Health Quest ionnaire 2 item (PHQ-2) [Reported] [facility] 03-08-2024 Functional Status N/A [facility] [facility] 12-21-2023 Functional Status N/A [facility] Clinical Notes 10-15-2020 to 02-07-2025 Telephone Encounter - Rosaura Thompson MD - 02/07/2025 10:29 AM EDTTelephone Encounter - Rosaura Thompson MD - 02/07/2025 10:29 AM EDTYossi Landers MD - 01/30/2025 2:15 PM EDT Note Date & Type Note Facility 02-07-2025 Telephone encount er Note PDMP reviewed Covering for Dr. landers [facility] 02-07-2025 Miscellaneous Notes Formattin g of this note might be different from the original. PDMP reviewed Covering for Dr. landers documented in this encounter [facility] 01-30-2025 History of Presen t illness Narrative Images from the original note were not included. Subjective Patient ID: Jaquelin Norwood is a 84 y.o. female who presents for COPD exacerbation. Follow up COPD exac. She is still on medrol dose pack but has finished all abx Denies cough, CP , wheezing Reports she does have some shortness of breath Feeling much better per pt She is taking the buproprion xl daily as directed Over the past 2 weeks, how often have you been bothered by any of the following problems? Little interest or pleasure in doing things: Not at all Feeling down, depressed, or hopeless: Not at all Patient Health Questionnaire-2 Score: 0 Current Outpatient Medications on File Prior to [...] 90 tablet 3 Blood Glucose Monitoring Suppl (QRcao 2) w/Device kit Inject under the skin 1 (one) time each day. buPROPion XL (Wellbutrin XL) 150 MG 24 hr tablet Take 1 tablet (150 mg) by mouth in the morning. Do not crush, chew, or split. 30 tablet 11 calcium carbonate (Tums) 500 MG chewable tablet [...] BY MOUTH EVERY DAY 100 tablet 3 Zdzmteiteyq-Tbdwwjzxq-Nbkabm (Trelegy Ellipta) 100-62.5-25 MCG/ACT aerosol powder Inhale [...] the same time. Lancets (OneTouch Delica Plus [id number]) [facility] [place] 1 LANCET TO TEST BLOOD SUGAR [...] (10 mg) before bedtime. 60 tablet 5 methylPREDNISolone (Medrol Dospak) 4 MG tablets Follow schedule on package instructions 21 tablet 0 Multiple Vitamins-Minerals (OCUVITE ADULT 50+ PO) Take by mouth 1 (one) time each day. nitroglycerin (Nitrostat) 0.[address] 0.4 mg under the tongue every 5 (five) minutes if needed. nystatin (Mycostatin) ointment every 12 (twelve) hours. polyethylene glycol, PEG, 3350 (Glycolax, Miralax) powder Take 17 g by mouth Daily as needed (constipation) torsemide (Demadex) 10 MG tablet Take 1.5 tablets (15 mg) by mouth Daily (Patient not taking: Reported on 01/30/2025) 45 tablet 11 [DISCONTINUED] amoxicillin-clavulanate (Augmentin) 875-125 MG tablet [DISCONTINUED] azithromycin (Zithromax) 250 MG tablet [DISCONTINUED] omeprazole (PriLOSEC) [address] capsule TAKE 1 CAPSULE EVERY MORNING BEFORE A MEAL (Patient not taking: Reported on 01/12/2025) 90 capsule 3 [DISCONTINUED] predniSONE (Deltasone) 10 MG tablet (Patient not taking: Reported on 01/23/2025) No current facility-administered medications on file prior [...] of bladder Left thyroid nodule Morbid obesity ([facility]) 07/04/2019 Osteoarthrosis Peripheral vascular disease, unspecified Unspecified [...] THYROID SURGERY partial thyroidectomy Visit Vitals BP 112/64 Pulse 88 Temp 96.9 F Ht 5' 5 Wt 185 lb SpO2 97% BMI 30.79 kg/m Smoking Status Former BSA [...] Diagnoses and all orders for this visit: COPD exacerbation (HCC) - Patient was previously seen for this problem. Interventions discussed at that prior visit have improved this problem significantly. Please seen that office visit for details. Panlobular emphysema (HCC) - Restart Trelegy as prior. Depression with anxiety - just started Welbutrin 2 weeks ago. Give it more time. Follow up in about 23 days (around 02/22/2025) for F/U med changes. documented in this encounter [facility] 01-16-2025 History of Presen t illness Narrative Images from the original note were not included. HPI Follow-up Additional comments: Admitted [facility] 01/09/25 dx:HTN, CHF exacerbation discharged home [...] y.o. female who presents for Follow-up (Admitted [facility] 01/09/25 dx:HTN, CHF exacerbation discharged home [...] Flowsheet Row Patient Outreach from 01/12/2025 in [facility] with Daniela Alvarado LPN Hospital Information ED, Hospital or Senior Care Facility Discharge? Hospital Patient has been contacted within two business days of discharge Yes Diagnosis CHF exacerbation: (2) Pericardial effusion: (3) Essential hypertension: (4) COPD exacerbation: Discharge Date 01/11/25 Discharged To: Home Setting Discharge Hospital [facility] Engagement Call Start Time 1059 Admission [...] 90 tablet 3 Blood Glucose Monitoring Suppl (QRcao 2) w/Device kit Inject under the skin [...] BY MOUTH EVERY DAY 100 tablet 3 Tgdupapicud-Bknsyxoni-Flrvzt (Trelegy Ellipta) 100-62.5-25 MCG/ACT aerosol powder Inhale 1 puff Daily 3 each 3 gabapentin (Neurontin) 100 MG capsule Take 2 capsules (200 mg) by mouth in the morning and 2 capsules (200 mg) before bedtime. 360 capsule 3 glucose blood (True Metrix Blood Glucose Test) test strip 1 each by Other route 1 (one) time each day at the same time. Lancets (9SLIDESTouch Delica Plus [id number]) [facility] [place] USE 1 LANCET TO TEST BLOOD SUGAR [...] of bladder Left thyroid nodule Morbid obesity ([facility]) 07/04/2019 Osteoarthrosis Peripheral vascular disease, unspecified Unspecified [...] weeks (around 01/30/2025). documented in this encounter [facility] 01-09-2025 History of Presen t illness Narrative [...] BY MOUTH EVERY DAY 100 tablet 3 Fwzgchoenaz-Kxfnfozsn-Jjyhjx (Trelegy Ellipta) 100-62.5-25 MCG/ACT aerosol powder Inhale 1 puff Daily 3 each 3 gabapentin (Neurontin) 100 MG capsule Take 2 capsules (200 mg) by mouth in the morning and 2 capsules (200 mg) before bedtime. 360 capsule 3 glucose blood (True Metrix Blood Glucose Test) test strip 1 each by Other route 1 (one) time each day at the same time. [] HYDROcodone-acetaminophen (Asbury) 7.5-325 MG tablet Take 1 tablet by mouth every 6 (six) hours if needed for severe pain 120 tablet 0 Lancets (9SLIDESTouch Delica Plus [id number]) [facility] USE 1 LANCET TO TEST BLOOD SUGAR [...] of bladder Left thyroid nodule Morbid obesity ([facility]) 07/04/2019 Osteoarthrosis Peripheral vascular disease, unspecified Unspecified [...] follow-ups on file. documented in this encounter [facility] 01-09-2025 Telephone encount er Note Meds sent. [facility] 01-09-2025 Miscellaneous Notes Formattin g of this note might be different from the original. Meds sent. documented in this encounter [facility] 01-03-2025 Telephone encount er Note OARRS reviewed, Rx sent into patient's pharmacy. [facility] 01-03-2025 Miscellaneous Notes Formattin g of this note might be different from the original. OARRS reviewed, Rx sent into patient's pharmacy. documented in this encounter [facility] 12-29-2024 History of Presen t illness Narrative [...] morning famotidine (PEPCID) 20 mg, Oral, Daily Msrpxcpmxre-Cljdtolxy-Izkzog (Trelegy Ellipta) 100-62.5-25 MCG/ACT aerosol powder 1 puff, Inhalation, Daily gabapentin (NEURONTIN) 200 mg, Oral, 2 times daily glucose blood (True Metrix Blood Glucose Test) test strip 1 each, Every 24 hours HYDROcodone-acetaminophen (Asbury) 7.5-325 MG tablet 1 tablet, Oral, Every 6 hours PRN Lancets (GameChanger Mediauch Delica Plus [id number]) [facility] USE 1 LANCET TO TEST BLOOD SUGAR [...] disease (HCC) 11/04/2022 Pulmonary emphysema ([facility]) 11/04/2022 Type 2 diabetes mellitus with diabetic neuropathy, without long-term current use of insulin (HCC) 11/04/2022 Ataxia 10/23/2017 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) 02/23/2019 Acute on chronic diastolic heart failure ([facility]) 03/14/2020 Cardiomegaly 04/30/2015 Abnormality of rectum 08/10/2023 Sore throat 10/26/2023 Symptomatic cholelithiasis 01/20/2024 Nausea 09/29/2024 Bilateral lower extremity edema 10/07/2024 Resolved Ambulatory Problems Diagnosis Date Noted Former smoker 08/15/2017 Morbid obesity ([facility]) 07/04/2019 Chronic combined systolic and diastolic heart failure (HCC) 04/30/2015 Acute exacerbation of chronic obstructive pulmonary disease (HCC) 07/16/2016 Past Medical History: Diagnosis Date Anxiety state Chronic airway obstruction (HCC) Chronic back pain Depressive disorder Diabetes mellitus without complication ([facility]) Encephalopathy 10/14/2022 Essential hypertension, benign H/O being [...] of bladder Left thyroid nodule Morbid obesity ([facility]) 07/04/2019 Osteoarthrosis Peripheral vascular disease, unspecified Unspecified combined systolic (congestive) and diastolic (congestive) heart failure ([facility]) Social History Tobacco Use Smoking status: Former [...] nursing note reviewed. Exam conducted with a business account specialist present. Vitals: Estimated body mass index is [...] of: PHILIP Solomon documented in this encounter [facility] 11-07-2024 History of Presen t illness Narrative [...] 90 tablet 3 Blood Glucose Monitoring Suppl (QRcao 2) w/Device kit Inject under the skin [...] mg) by mouth Daily 30 tablet 2 Lkdsmjtgdpj-Mlqqrnrsq-Mjyvjc (Trelegy Ellipta) 100-62.5-25 MCG/ACT aerosol powder Inhale 1 puff Daily 3 each 3 gabapentin (Neurontin) 100 MG capsule Take 2 capsules (200 mg) by mouth in the morning and 2 capsules (200 mg) before bedtime. 360 capsule 3 glucose blood (True Metrix Blood Glucose Test) test strip 1 each by Other route 1 (one) time each day at the same time. HYDROcodone-acetaminophen (Asbury) 7.5-325 MG tablet Take 1 tablet by mouth every 6 (six) hours if needed for severe pain 120 tablet 0 Lancets (OneTouch Delica Plus [id number]) [facility] USE 1 LANCET TO TEST BLOOD SUGAR [...] Do you have a medical power of corporate associate attorney?: No Objective : BP 128/72 Pulse [...] a living will and durable power of corporate associate attorney for healthcare. We discussed telling perdue [...] November 07, 2024 documented in this encounter [facility] 10-27-2024 Telephone encount er Note Radha sent. [facility] 10-27-2024 Miscellaneous Notes Formattin g of this note might be different from the original. Radha sent. documented in this encounter [facility] 10-13-2024 Telephone encount er Note Acknowledged. [facility] 10-13-2024 Miscellaneous Notes Formattin g of this [...] take that instead documented in this encounter [facility] 10-13-2024 Telephone encount er Note Relayed message from can to pt son and she will talk to pt to see what she would like to do and will give a call back T [facility] 10-13-2024 Telephone encount er Note Please let her know that both medications have the potential for the same side effects. Torsemide is likely to be more effective at managing her swelling. [facility] 10-13-2024 Telephone encount er Note Pt calls stating she does not feel comfortable taking torsemide was on furosemide in past and would rather take that instead T [facility] 10-07-2024 History of Presen t illness Narrative [...] just got out Thursday, she went to [facility] on 10/01 was having N/V. The [...] 1 CAPSULE EVERY MORNING 90 capsule 3 Zqfxtgixjba-Wuakcdlrp-Ypqhzs (Trelegy Ellipta) 100-62.5-25 MCG/ACT aerosol powder Inhale [...] not taking: Reported on 09/21/2024) [] HYDROcodone-acetaminophen (Asbury) 7.5-325 MG tablet Take 1 tablet by mouth every 6 (six) hours if needed for severe pain 120 tablet 0 Lancets (OneTouch Delica Plus [id number]) [facility] USE 1 LANCET TO TEST BLOOD SUGAR [...] Past Medical History: Diagnosis Date Acquired hypothyroidism ([facility]) Acute exacerbation of chronic obstructive pulmonary disease ([facility]) 07[facility]16/2016 Anxiety state ([facility]) Cardiomegaly Chronic airway obstruction ([facility]) Chronic back pain spinal stenosis Depressive disorder ([facility]) Diabetes mellitus without complication Diabetes mellitus without mention of complication, type II or unspecified type, not stated as uncontrolled Encephalopathy 10/14/2022 Essential hypertension, benign ([facility]) Former smoker 08/15/2017 H/O being hospitalized 02/20/2020 Resp. Distress, Hypoxia, JONE, LLL Pneumonia, Sepsis History of echocardiogram 02/21/2020 ECHO EF 65-70% Lt [facility] Severely Dilated (02/21/2020) Hyperlipidemia, unspecified ([facility]) Hypertonicity of bladder Left thyroid nodule ([facility] Morbid obesity ([facility]) 07/04/2019 Osteoarthrosis Peripheral vascular disease, unspecified ([facility]) Unspecified combined systolic (congestive) and diastolic (congestive) [...] and diastolic congestive heart failure (CMS/HCC) - Ambulatory referral to Home Health; Future [...] 11/04/2024) for Recheck. documented in this encounter [facility] 09-29-2024 History of Presen t illness Narrative Images from the original note were not included. HPI Med Refill Additional comments: Albuterol for nebulizer Last edited by Chelita Hurst LPN on 09/29/2024 10:57 AM. Subjective Patient ID: Jaquelin Norwood is a 84 y.o. female who presents for [facility] follow up. Flowsheet Row Patient Outreach from 09/28/2024 in [facility] with Daniela Alvarado LPN Hospital Information ED, Hospital or Senior Care Facility Discharge? ED Patient has been contacted within 2 days of being seen in the ED Yes Diagnosis Shortness of breath, Pneumonia Discharge Date 09/27/24 Discharged To: Home Setting Discharge Hospital [facility] Engagement Call Start Time 1101 Admission [...] taking: Reported on 09/21/2024) 90 tablet 0 Oswpocgdngj-Jlibhzjtn-Kqdewq (Trelegy Ellipta) 100-62.5-25 MCG/ACT aerosol powder Inhale [...] (Patient not taking: Reported on 09/21/2024) HYDROcodone-acetaminophen (Asbury) 7.5-325 MG tablet Take 1 tablet by mouth every 6 (six) hours if needed for severe pain 120 tablet 0 Lancets ([employer]ek[employer] DelTechLive Plus Puymba10B) [facility] USE 1 LANCET TO TEST BLOOD SUGAR [...] every 8 (eight) hours if needed. [DISCONTINUED] Hjdrhpa-Eduwwkezysy-Vrmrrhuzay (Breztri Aerosphere) 160-9-4.8 MCG/ACT aerosol Inhale 2 [...] Recheck with Lab. documented in this encounter [facility] 09-14-2024 History of Presen t illness Narrative [...] the skin 1 (one) time each day. Fcxanlx-Otgdeulhcdn-Sualnhncwn (Breztri Aerosphere) 160-9-4.8 MCG/ACT aerosol Inhale 2 [...] BY MOUTH AT BEDTIME 90 tablet 0 Koxqtksucva-Eswtoamez-Crrgmy (Trelegy Ellipta) 100-62.5-25 MCG/ACT aerosol powder Inhale 1 puff Daily 3 each 3 gabapentin (Neurontin) 100 MG capsule Take 2 capsules (200 mg) by mouth in the morning and 2 capsules (200 mg) before bedtime. 360 capsule 3 glucose blood (True Metrix Blood Glucose Test) test strip 1 each by Other route 1 (one) time each day at the same time. HYDROcodone-acetaminophen (Asbury) 7.5-325 MG tablet Take 1 tablet by mouth every 6 (six) hours if needed for severe pain 120 tablet 0 Lancets (9SLIDESTouch Delica Plus [id number]) [facility] USE 1 LANCET TO TEST BLOOD SUGAR [...] Past Medical History: Diagnosis Date Acquired hypothyroidism ([facility]) Acute exacerbation of chronic obstructive pulmonary disease ([facility]) 07[facility]16/2016 Anxiety state ([facility]) Cardiomegaly Chronic airway obstruction ([facility]) Chronic back pain spinal stenosis Depressive disorder ([facility]) Diabetes mellitus without complication ([facility]) Diabetes mellitus without mention of complication, type II or unspecified type, not stated as uncontrolled Encephalopathy 10/14/2022 Essential hypertension, benign ([facility]) Former smoker 08/15/2017 H/O being hospitalized 02/20/2020 Resp. Distress, Hypoxia, JONE, LLL Pneumonia, Sepsis History of echocardiogram 02/21/2020 ECHO EF 65-70% Lt [facility] Severely Dilated (02/21/2020) Hyperlipidemia, unspecified (CMS/[facility]) Hypertonicity of bladder Left thyroid nodule ([facility]) Morbid obesity ([facility]) 07/04/2019 Osteoarthrosis Peripheral vascular disease, unspecified ([facility]) Unspecified combined systolic (congestive) and diastolic (congestive) heart failure (CMS/[facility]) Past Surgical History: Procedure Laterality Date BACK [...] As Previously Scheduled. documented in this encounter [facility] 08-23-2024 Telephone encount er Note Hi, I am calling for Alma. Norwood. Birthdate [birth year]. She wanted to know if she could get some samples of the trilogy. Thank you, Tito. [facility] 08-23-2024 Miscellaneous Notes Formattin g of this note might be different from the original. Eyal, I am calling for Alma. Norwood. Birthdate [birth year]. She wanted to know if she could get some samples of the trilogy. Thank you, Tito. documented in this encounter [facility] 08-08-2024 Telephone encount er Note OARRS reviewed, Rx sent into patient's pharmacy. [facility] 08-08-2024 Miscellaneous Notes Formattin g of this note might be different from the original. OARRS reviewed, Rx sent into patient's pharmacy. documented in this encounter [facility] 08-08-2024 Telephone encount er Note Radha Sent [facility] 08-08-2024 Miscellaneous Notes Formattin g of this note might be different from the original. Zofran Sent documented in this encounter [facility] 07-29-2024 History of Presen t illness Narrative Images from the original note were not included. Jaquelin Norwood presents today for COPD. She was referred by primary care provider. She is accompanied by her yfhikegp-pr-lrg at today's office visit. She does give [...] been off for last 2 days. Her klykzaqa-wi-wfo her states that she believes they were [...] the skin 1 (one) time each day. Qjvrjfl-Ekuditjousj-Lnrwhmfdqh (Breztri Aerosphere) 160-9-4.8 MCG/ACT aerosol Inhale 2 [...] each day at the same time. HYDROcodone-acetaminophen (Asbury) 7.5-325 MG tablet Take 1 tablet by mouth every 6 (six) hours if needed for severe pain 120 tablet 0 Lancets (Lekan.[employer] DelTechLive Plus [id number]) [facility] USE 1 LANCET TO TEST BLOOD SUGAR [...] for nausea or vomiting 60 tablet 1 Tpzohpmyfmh-Lstrxggzy-Lanwgv (Trelegy Ellipta) 100-62.5-25 MCG/ACT aerosol powder Inhale 1 puff Daily 1 each 5 No current facility-administered medications for this visit. Past Medical History: Diagnosis Date Acquired hypothyroidism ([facility]) Acute exacerbation of chronic obstructive pulmonary disease ([facility]) 07/16/2016 Anxiety state ([facility]) Cardiomegaly Chronic airway obstruction ([facility]) Chronic back pain spinal stenosis Depressive disorder ([facility]) Diabetes mellitus without complication ([facility]) Diabetes mellitus without mention of complication, type II or unspecified type, not stated as uncontrolled Encephalopathy 10/14/2022 Essential hypertension, benign ([facility]) Former smoker 08/15/2017 H/O being hospitalized 02/20/2020 Resp. Distress, Hypoxia, JONE, LLL Pneumonia, Sepsis History of echocardiogram 02/21/2020 ECHO EF 65-70% Lt [facility] Severely Dilated (02/21/2020) Hyperlipidemia, unspecified ([facility]) Hypertonicity of bladder Left thyroid nodule ([facility]) Morbid obesity ([facility]) 07/04/2019 Osteoarthrosis Peripheral vascular disease, unspecified ([facility]) Unspecified combined systolic (congestive) and diastolic (congestive) heart failure ([facility]) Past Surgical History: Procedure Laterality Date BACK [...] atrial pressures consistent with volume overload. Her pceopgdk-ei-sbz states there were no adjustments made to [...] Kristen William DO documented in this encounter [facility] 07-25-2024 History of Presen t illness Narrative [...] the skin 1 (one) time each day. Qvyshad-Vmtjgairkfa-Mclgqgazrb (Breztri Aerosphere) 160-9-4.8 MCG/ACT aerosol Inhale 2 [...] each day at the same time. HYDROcodone-acetaminophen (Asbury) 7.5-325 MG tablet Take 1 tablet by mouth every 6 (six) hours if needed for severe pain 120 tablet 0 Lancets (Lekan.[employer] Delica Plus [id number]) [facility] USE 1 LANCET TO TEST BLOOD SUGAR [...] Past Medical History: Diagnosis Date Acquired hypothyroidism ([facility]) Acute exacerbation of chronic obstructive pulmonary disease ([facility]) 07[facility]16/2016 Anxiety state ([facility]) Cardiomegaly Chronic airway obstruction ([facility]) Chronic back pain spinal stenosis Depressive disorder ([facility] [facility]) Diabetes mellitus without complication ([facility]) Diabetes mellitus without mention of complication, type II or unspecified type, not stated as uncontrolled Encephalopathy 10/14/2022 Essential hypertension, benign ([facility]) Former smoker 08/15/2017 H/O being hospitalized 02/20/2020 Resp. Distress, Hypoxia, JONE, LLL Pneumonia, Sepsis History of echocardiogram 02/21/2020 ECHO EF 65-70% Lt Atrium Severely Dilated (02/21/2020) Hyperlipidemia, unspecified ([facility]/HCC) Hypertonicity of bladder Left thyroid nodule ([facility]) Morbid obesity ([facility]) 07/04/2019 Osteoarthrosis Peripheral vascular disease, unspecified ([facility]) Unspecified combined systolic (congestive) and diastolic (congestive) heart failure ([facility]) Past Surgical History: Procedure Laterality Date BACK [...] for Routine F/U. documented in this encounter [facility] 07-21-[facility]24 History of Presen t illness Narrative [...] Anxiety state (CMS/HCC) Cardiomegaly Chronic airway obstruction ([facility]) Chronic back pain spinal stenosis Depressive disorder ([facility]) Diabetes mellitus without complication ([facility]) Diabetes mellitus without mention of complication, type II or unspecified type, not stated as uncontrolled Encephalopathy 10/14/2022 Essential hypertension, benign ([facility]) Former smoker 08/15/2017 H/O being hospitalized 02/20/2020 Resp. Distress, Hypoxia, JONE, LLL Pneumonia, Sepsis History of echocardiogram 02/21/2020 ECHO EF 65-70% Lt At[facility] Severely Dilated (02/21/2020) Hyperlipidemia, unspecified ([facility]) Hypertonicity of bladder Left thyroid nodule ([facility]) Morbid obesity ([facility]) 07/04/2019 Osteoarthrosis Peripheral vascular disease, unspecified ([facility]) Unspecified combined systolic (congestive) and diastolic (congestive) heart failure ([facility]) Medications: Current Outpatient Medications: albuterol (2.5 MG/3ML) [...] (one) time each day., Disp: , Rfl: Lkwctpd-Ghbxqbcipgp-Idjlicvwmv (Breztri Aerosphere) 160-9-4.8 MCG/ACT aerosol, Inhale 2 [...] the same time., Disp: , Rfl: HYDROcodone-acetaminophen (Asbury) 7.5-325 MG tablet, Take 1 tablet by mouth every 6 (six) hours if needed for severe pain, Disp: 120 tablet, Rfl: 0 Lancets (9SLIDESTouch Delica Plus [id number]) [facility] [place] 1 LANCET TO TEST BLOOD SUGAR [...] min Stress: No Stress Concern Present (11/12/2022) [employer] - Occupational Stress Questionnaire Feeling of Stress : Not at all Social Connections: Moderately Isolated (11/12/2022) Social Connection and Isolation Panel [NHANES] Frequency of Communication with Friends and Family: More than three times a week Frequency of Social Gatherings with Friends and Family: Once a week Attends Temple Services: Never Active Member of Clubs or [...] and negative PT pedal pulses NEURO: 5.07 Charlotte Arturo monofilament test intact to digits and forefoot bilaterally 125Hz tuning fork diminished to 1st MPJ bilaterally ORTHO: Positive pain on palpation to toenails of the left 1,2,3,4,5 toes and right 1,2,3,4,5 toes ASSESSMENT 1. Type 2 diabetes mellitus with diabetic neuropathy, without long-term current use of insulin ([facility]) 2. Pain due to onychomycosis of toenails [...] Alessandro Levi DPM documented in this encounter [facility] 07-12-2024 History of Presen t illness Narrative Subjective Patient ID: Jaquelin Norwood is a 84 y.o. female who presents for Thyroid Nodule (1 year follow up ultrasound [facility]) Thyroid US shows a 14mm LT nodule. Stable to smaller compared to 6 years ago Family History Problem Relation Name Age of Onset Heart failure Mother Diabetes Mother Cancer Mother Cancer Father Active Ambulatory Problems Diagnosis Date Noted Acquired hypothyroidism ([facility]) 11/04/2022 Ataxic gait 11/04/2022 Bilateral carotid artery stenosis 11/04/2022 Cardiomyopathy ([facility]) 11/04/2022 Chronic allergic rhinitis 11/04/2022 Chronic combined systolic and diastolic congestive heart failure ([facility]) 11/04/2022 Chronic constipation 11/04/2022 Coronary artery disease ([facility]) 11/04/2022 Degenerative lumbar spinal stenosis 11/04/2022 Depression with anxiety 11/04/2022 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[facility]) 11/04/2022 Essential hypertension ([facility]) 11/04/2022 Extrapyramidal symptom 11/04/2022 Exudative age-related macular degeneration ([facility]) 11/04/2022 Gastroesophageal reflux disease 11/04/2022 Hypertensive heart disease with congestive heart failure and chronic kidney disease ([facility]) 11/04/2022 LVH (left ventricular hypertrophy) 11/04/2022 Mild cognitive impairment 11/04/2022 Mixed hyperlipidemia ([facility]) 11/04/2022 Moderate recurrent major depression ([facility]) 11/04/2022 Multinodular goiter ([facility]) 11/04/2022 Neuropathy 11/04/2022 Nontoxic single thyroid nodule ([facility]) 11/04/2022 OAB (overactive bladder) 11/04/2022 Obesity (BMI 30-39.9) 11/04/2022 Peripheral vascular disease ([facility]) 11/04/2022 Polyosteoarthritis 11/04/2022 Primary osteoarthritis of left knee 11/04/2022 Primary osteoarthritis of right knee 11/04/2022 Chronic obstructive pulmonary disease ([facility]) 11/04/2022 Pulmonary emphysema ([facility]) 11/04/2022 Type 2 diabetes mellitus with diabetic neuropathy, without long-term current use of insulin ([facility]) 11/04/2022 Ataxia 10/23/2017 Diabetic peripheral neuropathy associated with type 2 diabetes mellitus ([facility]) 02/23/2019 Acute on chronic diastolic heart failure ([facility]) 03/14/2020 Cardiomegaly 04/30/2015 Abnormality of rectum 08/10/2023 Sore throat 10/26/2023 Symptomatic cholelithiasis 01/20/2024 Resolved Ambulatory Problems Diagnosis Date Noted Former smoker 08/15/2017 Morbid obesity ([facility]) 07/04/2019 Chronic combined systolic and diastolic heart failure ([facility]/HCC) 04/30/2015 Acute exacerbation of chronic obstructive pulmonary disease ([facility]/HCC) 07/16/2016 Past Medical History: Diagnosis Date Anxiety state ([facility] Chronic airway obstruction ([facility] Chronic back pain Depressive disorder ([facility] Diabetes mellitus without complication ([facility]) Encephalopathy 10/14/2022 Essential hypertension, benign ([facility]) H/O being hospitalized 02/20/2020 History of echocardiogram 02/21/2020 Hyperlipidemia, unspecified ([facility]) Hypertonicity of bladder Left thyroid nodule ([facility]) Osteoarthrosis Peripheral vascular disease, unspecified ([facility]) Unspecified combined systolic (congestive) and diastolic (congestive) heart failure ([facility]) Past Surgical History: Procedure Laterality Date BACK [...] the skin 1 (one) time each day. Ohlfpvm-Klwamgvibkm-Mgclzhdqps (Breztri Aerosphere) 160-9-4.8 MCG/ACT aerosol Inhale 2 [...] each day at the same time. HYDROcodone-acetaminophen (Asbury) 7.5-325 MG tablet Take 1 tablet by mouth every 6 (six) hours if needed for severe pain 120 tablet 0 Lancets (OneTouch Delica Plus Fxezjs92L) [facility] [place] 1 LANCET TO TEST BLOOD SUGAR [...] years. Recheck prn documented in this encounter [facility] 07-04-2024 Telephone encount er Note ,OARRS reviewed, Rx sent into patient's pharmacy. [facility] 07-04-2024 Miscellaneous Notes Formattin g of this note might be different from the original. ,OARRS reviewed, Rx sent into patient's pharmacy. Last OV 05-31-24 Last RF 06-01-24 documented in this encounter [facility] 07-04-2024 Telephone encount er Note Last OV 05-31-24 Last RF 06-01-24 [facility] 06-10-2024 History of Presen t illness Narrative [...] the skin 1 (one) time each day. Tetsgbg-Nkgrzdpmspk-Hksmmnhxnp (Breztri Aerosphere) 160-9-4.8 MCG/ACT aerosol Inhale 2 [...] each day at the same time. HYDROcodone-acetaminophen (Asbury) 7.5-325 MG tablet Take 1 tablet by mouth every 6 (six) hours if needed for severe pain 120 tablet 0 Lancets ([employer] Delica Plus Rxhyle04W) [facility] [place] 1 LANCET TO TEST BLOOD SUGAR [...] Acute exacerbation of chronic obstructive pulmonary disease ([facility]) 07/16/2016 Anxiety state (CMS/[facility]) Cardiomegaly Chronic airway obstruction ([facility]) Chronic back pain spinal stenosis Depressive disorder ([facility]) Diabetes mellitus without complication ([facility]/HCC) Diabetes mellitus without mention of complication, type II or unspecified type, not stated as uncontrolled Encephalopathy 10/14/2022 Essential hypertension, benign ([facility]) Former smoker 08/15/2017 H/O being hospitalized 02/20/2020 Resp. Distress, Hypoxia, JONE, LLL Pneumonia, Sepsis History of echocardiogram 02/21/2020 ECHO EF 65-70% Lt [facility] Severely Dilated (02/21/2020) Hyperlipidemia, unspecified (CMS/HCC) Hypertonicity of bladder Left thyroid nodule ([facility]/HCC) Morbid obesity ([facility]/HCC) 07/04/2019 Osteoarthrosis Peripheral vascular disease, unspecified [...] F/U med changes. documented in this encounter [facility] 06-01-2024 Telephone encount er Note Meds sent. [facility] 06-01-2024 Miscellaneous Notes Formattin g of this note might be different from the original. Meds sent. OARRS reviewed, Unable to send meds, will try again later. documented in this encounter [facility] 06-01-2024 Telephone encount er Note OARRS reviewed, Unable to send meds, will try again later. [facility] 05-16-2024 History of Presen t illness Narrative [...] ins approval), Emphysema, and Med Refill ([facility]). Diabetes Mellitus Patient presents for [...] the skin 1 (one) time each day. Rfqhecb-Puuhkqohlyl-Gudeobhqzx (Breztri Aerosphere) 160-9-4.8 MCG/ACT aerosol Inhale 2 [...] each day at the same time. HYDROcodone-acetaminophen (Asbury) 7.5-325 MG tablet Take 1 tablet by mouth every 6 (six) hours if needed for severe pain 120 tablet 0 Lancets (OneTouch Delica Plus Tnjkyu46G) [facility] [place] USE 1 LANCET TO TEST BLOOD SUGAR [...] Acute exacerbation of chronic obstructive pulmonary disease ([facility]/HCC) 07/16/2016 Anxiety state (CMS/[facility]) Cardiomegaly Chronic airway obstruction (CMS/HCC) Chronic back pain spinal stenosis Depressive disorder ([facility]/HCC) Diabetes mellitus without complication ([facility]/HCC) Diabetes mellitus without mention of complication, type II or unspecified type, not stated as uncontrolled Encephalopathy 10/14/2022 Essential hypertension, benign ([facility]) Former smoker 08/15/2017 H/O being hospitalized 02/20/2020 [...] for Test/Lab Review. documented in this encounter [facility] 05-02-2024 History of Presen t illness Narrative [...] each day at the same time. Lancets (9SLIDESTouch Delica Plus [id number]) [facility] [place] USE 1 LANCET TO TEST BLOOD SUGAR [...] for anxiety 60 tablet 0 [DISCONTINUED] HYDROcodone-acetaminophen (Asbury) 7.5-325 MG tablet Take 1 tablet by [...] neuropathy, without long-term current use of insulin ([facility]) - POCT Glycated hemoglobin, total Degenerative lumbar spinal stenosis - HYDROcodone-acetaminophen (Asbury) 7.5-325 MG tablet; Take 1 tablet by [...] emphysema (CMS/HCC) - Pulmonary Function Test - Gaqngcy-Ltxguyzvlyn-Auihvwvyux (Breztri Aerosphere) 160-9-4.8 MCG/ACT aerosol; Inhale 2 puffs in the morning and 2 puffs before bedtime. Symptomatic cholelithiasis - May need removal, but not medically stable for surgery at present Follow up in about 2 weeks (around 05/16/2024) for Test/Lab Review, F/U med changes. documented in this encounter [facility] 04-28-2024 History of Presen t illness Narrative [...] Past Medical History: Diagnosis Date Acquired hypothyroidism ([facility]) Acute exacerbation of chronic obstructive pulmonary disease ([facility]) 07/16/2016 Anxiety state ([facility]) Cardiomegaly Chronic airway obstruction ([facility]) Chronic back pain spinal stenosis Depressive disorder ([facility]) Diabetes mellitus without complication ([facility]) Diabetes mellitus without mention of complication, type II or unspecified type, not stated as uncontrolled Encephalopathy 10/14/2022 Essential hypertension, benign ([facility]) Former smoker 08/15/2017 H/O being hospitalized 02/20/2020 Resp. Distress, Hypoxia, JONE, LLL Pneumonia, Sepsis History of echocardiogram 02/21/2020 ECHO EF 65-70% Lt [facility] Severely Dilated (02/21/2020) Hyperlipidemia, unspecified ([facility]) Hypertonicity of bladder Left thyroid nodule ([facility] Morbid obesity ([facility]) 07/04/2019 Osteoarthrosis Peripheral vascular disease, unspecified ([facility]) Unspecified combined systolic (congestive) and diastolic (congestive) heart failure ([facility]) Medications: Current Outpatient Medications: albuterol (2.5 MG/3ML) [...] the same time., Disp: , Rfl: HYDROcodone-acetaminophen (Asbury) 7.5-325 MG tablet, Take 1 tablet by mouth every 6 (six) hours if needed for severe pain, Disp: 120 tablet, Rfl: 0 Lancets (OneTouch Delica Plus [id number]) [facility] [place], USE 1 LANCET TO TEST BLOOD SUGAR [...] min Stress: No Stress Concern Present (11/12/2022) [employer] - Occupational Stress Questionnaire Feeling of Stress : Not at all Social Connections: Moderately Isolated (11/12/2022) Social Connection and Isolation Panel [NHANES] Frequency of Communication with Friends and Family: More than three times a week Frequency of Social Gatherings with Friends and Family: Once a week Attends Temple Services: Never Active Member of Clubs or [...] and negative PT pedal pulses NEURO: 5.07 [place] Arturo monofilament test intact to digits and forefoot bilaterally 125Hz tuning fork diminished to 1st MPJ bilaterally ORTHO: Positive pain on palpation to nails 1 through 10 ASSESSMENT 1. Type 2 diabetes mellitus with diabetic neuropathy, without long-term current use of insulin ([facility]) 2. Pain due to onychomycosis of toenails [...] Alessandro Levi DPM documented in this encounter [facility] 03-30-2024 Telephone encount er Note OARRS reviewed, Rx sent into patient's pharmacy. [facility] 03-30-2024 Miscellaneous Notes Formattin g of this note might be different from the original. OARRS reviewed, Rx sent into patient's pharmacy. documented in this encounter [facility] 03-08-2024 Evaluation + Plan note Extrac marisel from: Title:ANES Post-operative Note---General Author: Luciano Grace MD Date:03/08/24 Plan Transfer/Discharge: Transfer/Discharge Discharge when meets criteria ( To home ). Extracted from: Title:ANES Pre-operative Note 2022 Author:Luciano López Date:03/08/24 Plan [place] [employer] (ASA) physical status classification: Class IV. Anesthetic Preoperative Plan: Anesthesia Monitored anethesia care. [facility] 09-17-2024 NoteProgress Note-Physician Patient: JAQUELIN NORWOOD Age: 83 years Sex: Female : 1940 Associated Diagnoses: None Author: Luciano Grace MD Postoperative Information Postoperative disposition: Postoperative disposition: To PACU. Optimetrix number: Optimetrix number [id number]. Anesthetic utilized: General. Health Status Allergies: Allergic [...] Discharge when meets criteria ( To home ).[facility] Comment: Electronically Signed By: [...] hard liquor (44 mL). General instructions Take owkt-qqn-dxefahw and prescription medicines only as told by [...] provider. Document Revised: 09/26/2020 Document Reviewed: 09/26/2020 [employer] Patient Education 2023 [employer]. 03/08/2024 10:36:48 Diverticulosis Diverticulosis Diverticulosis is when [...] get enough exercise. You smoke. You take vvwm-csz-xagzmgo pain medicines. You have a family history [...] Follow these instructions at home: Medicines Take owvk-nth-byupvgb and prescription medicines only as told by your provider. If told, take a fiber supplement or probiotic. Managing constipation Your condition may cause constipation. To prevent or treat constipation, you may need to: Drink enough fluid to keep your pee (urine) pale yellow. Take alwk-cxy-wgqkclu or prescription medicines. Eat foods that are [...] provider. Document Revised: 03/05/2023 Document Reviewed: 03/05/2023 [employer] Patient Education 2023 [employer]. 03/08/2024 10:36:44 Hemorrhoids, Ajcj-nc-Pquw Hemorrhoids Hemorrhoids are swollen veins that may [...] Follow these instructions at home: Medicines Take srkj-hib-ancmtsq and prescription medicines only as told by [...] provider. Document Revised: 02/18/2023 Document Reviewed: 02/18/2023 [employer] Patient Education 2023 [employer]. Follow Up Care 02/16/2024 14:51:06 With:Amaris VALDEZ, WILBERTO Jean-Baptiste, [facility] Address: [address] [place] [address], [address] [place] [address]- [phone] When: Unknown Comments:Office will call to schedule follow up appointment and/or review any pending biopsy resultsCall forany problems. [facility] 09-17-2024 NotePatient Education - Text Colonoscopy Care After Surgery Please read the instructions outlined below and refer to this sheet in the next few weeks. These discharge instructions provide you with general information on [facility] Your doctor may also give you [...] exercise. ? You smoke. ? You take xwvd-eva-zdwwdcw pain medicines. ? You have a family [...] these instructions at home: Medicines ? Take shpp-rkt-tmmrzym and prescription medicines only as told by your provider. ? If told, take a fiber supplement or probiotic. Managing constipation Your condition may cause constipation. To prevent or treat constipation, you may need to: ? Drink enough fluid to keep your pee (urine) pale yellow. ? Take mgqo-fpt-pklrpfg or prescription medicines. ? Eat foods that [...] care provider. Document Lise (more content not included)...[facility] 03-08-2024 NoteProgress Note-Physician Patient: JAQUELIN NORWOOD [...] CT of the abdomen / SNOMED CT 1768762202 / Confirmed Cholelithiasis / SNOMED CT 382202313 / Confirmed Esophageal dysmotility / SNOMED CT 084687412 / Confirmed Esophageal dysphagia / SNOMED CT 09838836 / Confirmed History of gastric surgery / SNOMED CT 4750600291 / Confirmed, Active Problems (5) Abnormal CT of the abdomen Cholelithiasis Esophageal dysmotility Esophageal dysphagia History of gastric surgery Histories Past Medical History: No active or resolved past medical history items have been selected or recorded. Family History: Heart disease Mother Diabetes mellitus type 2 Mother Cancer Father Mother Procedure history: Sigmoidoscopy ([id number]) on 03/08/2024 at 83 Years. EGD - esophagogastroduodenoscopy ([id number]) on 02/03/2024 at 83 Years. Colonoscopy ([id number]) on 02/03/2024 at 83 Years. Social History Social & Psychosocial Habits Tobacco 12/21/2023 Tobacco Use: Former smoker, quit more . Physical Examination Vital Signs 03/08/2024 8:46 EDT Temperature Temporal Artery 36.7 DegC Heart Rate Monitored 88 bpm Respiratory Rate 2 (more content not included)...[facility] Comment on above:Result Comment: Electronically Signed By: Sanjay VALDEZ, Luciano Leonard\.zari\Date and Time Signed: 03/08/24 10:10 [id number] History of Present illness Narrative* Alessandro Levi [...] Past Medical History: Diagnosis Date Acquired hypothyroidism ([facility]) Acute exacerbation of chronic obstructive pulmonary disease ([facility]) 07/16/2016 Anxiety state ([facility]) Cardiomegaly Chronic airway obstruction ([facility]) Chronic back pain spinal stenosis Depressive disorder ([facility]) Diabetes mellitus without complication ([facility]) Diabetes mellitus without mention of complication, type II or unspecified type, not stated as uncontrolled Encephalopathy 10/14/2022 Essential hypertension, benign ([facility]) Former smoker 08/15/2017 H/O being hospitalized 02/20/2020 Resp. Distress, Hypoxia, JONE, LLL Pneumonia, Sepsis History of echocardiogram 02/21/2020 ECHO EF 65-70% Lt [facility] Severely Dilated (02/21/2020) Hyperlipidemia, unspecified ([facility]) Hypertonicity of bladder Left thyroid nodule ([facility]) Morbid obesity ([facility]) 07/04/2019 Osteoarthrosis Peripheral vascular disease, unspecified ([facility]) Unspecified combined systolic (congestive) and diastolic (congestive) heart failure ([facility]) Medications: Current Outpatient Medications: albuterol (2.5 MG/3ML) [...] the same time., Disp: , Rfl: HYDROcodone-acetaminophen ([place]) 7.5-325 MG tablet, Take 1 tablet by mouth every 6 (six) hours if needed for severe pain, Disp: 120 tablet, Rfl: 0 Lancets (OneTouch Delica Plus Iaszgo17L) [facility] [place], USE 1 LANCET TO TEST BLOOD SUGAR [...] min Stress: No Stress Concern Present (11/12/2022) [employer] [place] [employer] - Occupational Stress Questionnaire Feeling of Stress : Not at all Social Connections: Moderately Isolated (11/12/2022) Social Connection and Isolation Panel [NHANES] Frequency of Communication with Friends and Family: More than three times a week Frequency of Social Gatherings with Friends and Family: Once a week Attends Temple Services: Never Active Member of Clubs or [...] and negative PT pedal pulses NEURO: 5.07 [place] Arturo monofilament test intact to digits and forefoot bilaterally 125Hz tuning fork diminished to 1st MPJ bilaterally ORTHO: Positive pain on palpation to nails 1 through 10 ASSESSMENT 1. Onychomycosis 2. Thickened nail 3. Type 2 diabetes mellitus with diabetic neuropathy, without long-term current use of insulin ([facility]) 4. Toe pain, bilateral 5. Venous insufficiency [...] activities. Alessandro Levi DPM documented in this encounterThe Rehabilitation [id number] Evaluation + Plan note Extracted from: Title:ANES [...] bulb. otherwise, normal duodenum. Images Procedure images: Rec1_hd_video____26_067.jpg Rec1_hd_video____34_629.jpg Rec1_hd_video____43_827.jpg Rec1_hd_video____55_948.jpg Rec1_hd_video____13_375.jpg Rec1_hd_video__T09__35_569.jpg Rec1_hd_video__T09__31_[id number].jpg Rec1_hd_video____44_158.jpg Rec1_hd_video____17_870.jpg Rec1_hd_video__T09__43_[id number].jpg Rec1_hd_video__T__02_072.jpg Rec1_hd_video_2023__[id number]_32_[id number].jpg . Post-Procedure Complications: none. Estimated blood loss: [...] Basic PRE Author:Bruce Peterson DO Date:02/03/24 Plan [place] [employer]esthesi[employer] (ASA) physical status classification: Class II. Anesthetic Preoperative Plan: Anesthesia General. [facility] 08-14-2024 Hospital Discharge instructions Patient Education [...] including vitamins, herbs, eye drops, creams, and gnxo-dfe-zrudqtx medicines. Any problems you or family members [...] provider tells you to take them. ?Taking jvks-jtu-beerzgv medicines, vitamins, herbs, and supplements. Follow instructions [...] home. Follow these instructions at home: Take cvlc-jor-tdbteqe and prescription medicines only as told by [...] provider. Document Revised: 10/24/2020 Document Reviewed: 10/24/2020 [employer] Patient Education 2022 [employer]. Follow Up Care 12/21/2023 14:19:00 With:Amaris VALDEZ, Mandi Red [facility], [facility] Address: [address] [place] [address], [address] [phone] [phone] When: Unknown Comments:Office will call Date and Time of Follow-up Appt. [facility] 08-14-2024 NoteProgress Note-Physician Patient: JAQUELIN NORWOOD [...] CT of the abdomen / SNOMED CT 0284689377 / Confirmed Cholelithiasis / SNOMED CT 538256128 / Confirmed Esophageal dysmotility / SNOMED CT 848509521 / Confirmed Esophageal dysphagia / SNOMED CT 79958749 / Confirmed History of gastric surgery / SNOMED CT 7344798788 / Confirmed Physical Examination Vital Signs 02/03/2024 [...] mmHg Diastolic Blood Pres (more content not included)...[facility] Comment on above:Result Comment: Electronically Signed By: Tiago Peterson DO\.br\Date and Time Signed: 02/03/24 10:46 [id number] NotePatient Education - Text Gastroenterology Esophageal Dilatation [...] including vitamins, herbs, eye drops, creams, and kbyz-pup-kufbdyw medicines. ? Any problems you or family [...] tells you to take them. ? Taking dqmw-yqy-wfcexub medicines, vitamins, herbs, and supplements. ? Follow [...] Follow these instructions at home: ? Take kecf-egu-bbawoud and prescription medicines only as told by [...] this procedure, a nu (more content not included)...[facility]08-14-2024 NoteProgress Note-Physician Patient: JAQUELIN NORWOOD Age: [...] CT of the abdomen / SNOMED CT 5317910638 / Confirmed Cholelithiasis / SNOMED CT 441312468 / Confirmed Esophageal dysmotility / SNOMED CT 373599859 / Confirmed Esophageal dysphagia / SNOMED CT 41003236 / Confirmed History of gastric surgery / SNOMED CT 2270880341 / Confirmed, Active Problems (5) Abnormal CT [...] br/min Systolic Blood P (more content not included)...[facility] Comment on above:Result Comment: Electronically Signed By: Tiago Peterson DO.br\Date and Time Signed: 02/03/24 09:23 [id number] Telephone encounter Note* Telephone Encounter - PHILIP Magallanes - 07/27/2023 8:00 AM EST sent [facility] [id number] Miscellaneous Notes* Telephone Encounter - PHILIP Magallanes - 07/27/2023 8:00 AM EST sent documented in this encounterThe Rehabilitation [id number] History of Present illness Narrative* Patient is [...] her back in 3 to 4 months [facility] Work Phone: [phone] 300-131104-26-2021 History of Present illness Narrative* Patient is [...] her back in 3 to 4 months [facility] 250 DO Work Phone: Evaluation + Plan note Future Appointments Appointment Date:01/11/2024 09:30:00 AM Scheduled Provider: Location:[facility] Services Appointment Type:Surgery FT [facility] Evaluation note* Diagnosis Essential hypertension ([facility]) Unspecified essential hypertension documented in this encounter [...] neuropathy, without long-term current use of insulin ([facility])- Primary Pain due to onychomycosis of toenails of both feet Venous insufficiency Unspecified venous (peripheral) insufficiency documented in this encounter [facility]* Diagnosis Type 2 diabetes mellitus with diabetic neuropathy, without long-term current use of insulin ([facility])- Primary Pain due to onychomycosis of toenails of both feet Venous insufficiency Unspecified venous (peripheral) insufficiency documented in this encounter [facility]* Diagnosis Type 2 diabetes mellitus with diabetic neuropathy, without long-term current use of insulin ([facility])- Primary Degenerative lumbar spinal stenosis Spinal stenosis of lumbar region Allergic rhinitis, unspecified Depression with anxiety Dysthymic disorder Chronic combined systolic and diastolic congestive heart failure ([facility]) Panlobular emphysema ([facility]) Other emphysema Symptomatic cholelithiasis documented in this encounter [facility]* Diagnosis Panlobular emphysema ([facility])- Primary Other emphysema Chronic combined systolic and diastolic congestive heart failure ([facility]) Symptomatic cholelithiasis documented in this encounter [facility]* Diagnosis Degenerative lumbar spinal stenosis Spinal stenosis of lumbar region Depression with anxiety Dysthymic disorder documented in this encounter [facility]* Diagnosis Venous insufficiency- Primary Unspecified venous (peripheral) insufficiency Thickened nail Type 2 diabetes mellitus with diabetic neuropathy, without long-term current use of insulin ([facility]) Onychomycosis Dermatophytosis of nail Toe pain, bilateral documented in this encounter [facility]* Diagnosis Depression with anxiety Dysthymic disorder Degenerative lumbar spinal stenosis Spinal stenosis of lumbar region documented in this encounter [facility]* Diagnosis Panlobular emphysema ([facility])- Primary Other emphysema COPD with acute exacerbation ([facility]) Acute cystitis without hematuria Symptomatic cholelithiasis Chronic combined systolic and diastolic congestive heart failure ([facility]) Depression with anxiety Dysthymic disorder documented in this encounter [facility]* Diagnosis Degenerative lumbar spinal stenosis Spinal stenosis of lumbar region Depression with anxiety Dysthymic disorder Type 2 diabetes mellitus with diabetic neuropathy, without long-term current use of insulin ([facility])- Primary Pain due to onychomycosis of toenails of both feet Venous insufficiency Unspecified venous (peripheral) insufficiency documented in this encounter [facility]* Diagnosis Nontoxic single thyroid nodule ([facility])- Primary Nontoxic uninodular goiter documented in this encounter [facility]* Diagnosis Type 2 diabetes mellitus with diabetic neuropathy, without long-term current use of insulin ([facility])- Primary Pain due to onychomycosis of toenails of both feet Venous insufficiency Unspecified venous (peripheral) insufficiency documented in this encounter [facility]* Diagnosis Panlobular emphysema ([facility])- Primary Other emphysema Moderate recurrent major depression ([facility]) Major depressive disorder, recurrent episode, moderate Depression [...] this encounter [facility] HealthcareEvaluation noteNo assessment information availableUniversity Hospitals [facility] Work Phone: Evaluation note* Diagnosis [...] in this encounter [facility]* Diagnosis COPD exacerbation (HCC)- Primary Obstructive chronic bronchitis with exacerbation Panlobular emphysema (HCC) Other emphysema Depression with anxiety Dysthymic disorder documented in [...] 6. We will repeat her carotid Doppler [facility] 250 DO Work Phone: History of [...] 6. We will repeat her carotid Doppler [facility] Work Phone: Hospital course Narrative No data available for this section [facility] Hospital Discharge instructions No data available for this section [facility] Progress note No data available for this section [facility] Chief Complaint * overdue. * JAQUELIN NORWOOD [...] section and content) DATE CREATED AUTHOR 02/27/2022 [employer] DATE CREATED AUTHOR AUTHOR'S ORGANIZ ATION 04/15/2022 [facility] DATE CREATED AUTHOR AUTHOR'S ORGANIZ ATION 10/25/2022 [facility] DATE CREATED AUTHOR AUTHOR'S ORGANIZ ATION 02/06/2024 [facility] DATE CREATED AUTHOR AUTHOR'S ORGANIZ ATION 02/07/2024 [facility] DATE CREATED AUTHOR AUTHOR'S ORGANIZ ATION 03/04/2024 [facility] DATE CREATED AUTHOR AUTHOR'S ORGANIZ ATION 03/09/2024 [facility] DATE CREATED AUTHOR AUTHOR'S ORGANIZ ATION 03/13/2024 [facility] DATE CREATED AUTHOR AUTHOR'S ORGANIZ ATION 03/14/2024 [facility] DATE CREATED AUTHOR AUTHOR'S ORGANIZ ATION 10/04/2024 [facility] DATE CREATED AUTHOR AUTHOR'S ORGANIZ ATION 10/10/2024 [facility] DATE CREATED AUTHOR AUTHOR'S ORGANIZ ATION 01/28/2025 [facility] EPIC Reason for Visit (unrecogniz [...] neuropathy, without long-term current use of insulin ([facility]) Procedures NM OFFICE/OUTPATIENT NEW HIGH MDM 60 MINUTES Can Mason PA [address] [place] [address] Alessandro Levi DPM [address] [place] [address] Referral ID Status Reason Start Date Expiration Date V isits Requested Visits Authorized [id number] Closed Specialty Services Required 01/28/2024 07/26/2024 1 [...] Pulmonary Disease / Pulmonology Diagnoses Panlobular emphysema ([facility]) Procedures NM OFFICE/OUTPATIENT NEW [facility] Yossi Landers MD [address] [facility] [address] [place] [address] Phone: tel: fax: Kristen William, DO [address] [place] [address] Phone: tel: fax: Referral ID Status Reason Start Date Expiration Date V isits Requested Visits Authorized [id number] Closed Specialty Services Required 05/16/2024 11/12/2024 1 [...] Comments Med Refill Reason Comments Follow-up Admitted [facility] 01/09/25 dx:HTN, CHF exacerbation discharged home [...] meds if her blood pressure is low Reason Comments COPD exacerbation Reason Onset Date Comments Med Refill 02/06/2025 Care Teams (unrecognized sec tion and content) Certified Alcohol Counselor Relationship Specialty Start Date End Date Yossi Landers MD [address] [facility] [address] [place] [address] PCP - General Internal Medicine 11/03/22 Yossi Landers MD [address] [place] [address] PCP - [employer] 11/20/22 Certified Alcohol Counselor Relationship Specialty Start Date End Date Yossi Landers MD [address] [place] [address] PCP - General Internal Medicine 11/03/22 Yossi Landers MD [address] [place] [address] PCP - [employer] 11/20/22 Certified Alcohol Counselor Relationship Specialty Start Date End Date Yossi Landers MD [address] [place] [address] PCP - General Internal Medicine 11/03/22 Yossi Landers MD [address] [place] [address] PCP - [employer] 11/20/22 Certified Alcohol Counselor Relationship Specialty Start Date End Date Yossi Landers MD [address] [place] [address] PCP - General Internal Medicine 11/03/22 Yossi Landers MD [address] [place] [address] PCP - [employer] 11/20/22 Certified Alcohol Counselor Relationship Specialty Start Date End Date Yossi Landers MD [address] [place] [address] PCP - General Internal Medicine 11/03/22 Yossi Landers MD [address] [place] [address] PCP - [employer] 11/20/22 Certified Alcohol Counselor Relationship Specialty Start Date End Date Yossi Landers MD [address] [place] [address] PCP - General Internal Medicine 11/03/22 Yossi Landers MD [address] [place] [address] PCP - [employer] 11/20/22 Certified Alcohol Counselor Relationship Specialty Start Date End Date Yossi Landers MD [address] [place] [address] PCP - General Internal Medicine 11/03/22 Yossi Landers MD [address] [place] [address] PCP - [employer] 11/20/22 Certified Alcohol Counselor Relationship Specialty Start Date End Date Yossi Landers MD [address] [place] [address] PCP - General Internal Medicine 11/03/22 Yossi Landers MD [address] [place] [address] PCP - [employer] 11/20/22 Certified Alcohol Counselor Relationship Specialty Start Date End Date Yossi Landers MD [address] [place] [address] PCP - General Internal Medicine 11/03/22 Yossi Landers MD [address] [place] [address] PCP - [employer] 11/20/22 Certified Alcohol Counselor Relationship Specialty Start Date End Date Yossi Landers MD [address] [place] [address] PCP - General Internal Medicine 11/03/22 Yossi Landers MD [address] [place] [address] PCP - [employer] 11/20/22 Certified Alcohol Counselor Relationship Specialty Start Date End Date Yossi Landers MD [address] [place] [address] PCP - General Internal Medicine 11/03/22 Yossi Landers MD [address] [place] [address] PCP - [employer] 11/20/22 Certified Alcohol Counselor Relationship Specialty Start Date End Date Yossi Landers MD [address] [place] [address] PCP - General Internal Medicine 11/03/22 Yossi Landers MD [address] [place] [address] PCP - [employer] 11/20/22 Certified Alcohol Counselor Relationship Specialty Start Date End Date Yossi Landers MD [address] [place] [address] PCP - General Internal Medicine 11/03/22 Yossi Landers MD [address] [place] [address] PCP - [employer] 11/20/22 Certified Alcohol Counselor Relationship Specialty Start Date End Date Yossi Landers MD [address] [place] [address] PCP - General Internal Medicine 11/03/22 Yossi Landers MD [address] [place] [address] PCP - [employer] 11/20/22 Certified Alcohol Counselor Relationship Specialty Start Date End Date Yossi Landers MD [address] [place] [address] PCP - General Internal Medicine 11/03/22 Yossi Landers MD [address] [place] [address] PCP - [employer] 11/20/22 Certified Alcohol Counselor Relationship Specialty Start Date End Date Yossi Landers MD [address] [place] [address] PCP - General Internal Medicine 11/03/22 Yossi Landers MD [address] [place] [address] PCP - [employer] 11/20/22 Seble Mejia, RN Clinical Advocate [facility] 07/29/24 Certified Alcohol Counselor Relationship Specialty Start Date End Date Yossi Landers MD [address] [place] [address] PCP - General Internal Medicine 11/03/22 Yossi Landers MD [address] [place] [address] PCP - [employer] 11/20/22 Seble Mejia, RN Clinical Advocate [facility] 07/29/24 Team Status: Active Member Role Status Dates Yossi Landers II MD Primary Care Provider Active Team Status: Inactive Member Role Status Dates Yossi Landers II MD Primary Care Provider Active Start: August 13, 2024 End: August 13, 2024 Elmer Greene DO Attending Provider Active Start: August 13, 2024 End: August 13, 2024 Certified Alcohol Counselor Relationship Specialty Start Date End Date Yossi Landers MD [address] [place] [address] PCP - General Internal Medicine 11/03/22 Yossi Landers MD [address] [place] [address] PCP - [employer] 11/20/22 Seble Mejia, RN Clinical Advocate [facility] 07/29/24 Certified Alcohol Counselor Relationship Specialty Start Date End Date Yossi Landers MD [address] [place] [address] PCP - General Internal Medicine 11/03/22 Yossi Landers MD [address] [place] [address] PCP - [employer] 11/20/22 Seble Mejia, RN [facility] 07/29/24 Certified Alcohol Counselor Relationship Specialty Start Date End Date Yossi Landers MD [address] [place] [address] PCP - General Internal Medicine 11/03/22 Yossi Landers MD [address] [place] [address] PCP - [employer] 11/20/22 Daniela Alvarado LPN 09/09/24 Certified Alcohol Counselor Relationship Specialty Start Date End Date Yossi Landers MD [address] [place] [address] PCP - General Internal Medicine 11/03/22 Yossi Landers MD [address] [place] [address] PCP - [employer] 11/20/22 Daniela Alvarado LPN 09/09/24 Certified Alcohol Counselor Relationship Specialty Start Date End Date Yossi Landers MD [address] [place] [address] PCP - General Internal Medicine 11/03/22 Yossi Landers MD [address] [place] [address] PCP - [employer] 11/20/22 Daniela Alvarado [facility] 09/09/24 Certified Alcohol Counselor Relationship Specialty Start Date End Date Yossi Landers MD [address] [place] [address] PCP - General Internal Medicine 11/03/22 Yossi Landers MD [address] [place] [address] PCP - [facility] 11/20/22 [facility] Certified Alcohol Counselor Relationship Specialty Start Date End Date Yossi Landers MD [address] [place] [address] PCP - General Internal Medicine 11/03/22 Yossi Landers MD [address] [place] [address] PCP - [facility] 11/20/22 [facility] Team Status: Active Member Role Status Dates Yossi Landers II MD Primary Care Provider Active Start: August 14, 2024 Carter Joseph DO Attending Provider Active Sta rt: August 14, 2024 Team Status: Inactive Member Role Status Dates Elías Graham MD Attending Provider Active Sta rt: October 01, 2024 End: October 01, 2024 Certified Alcohol Counselor Relationship Specialty Start Date End Date Yossi Landers MD [address] [place] [address] PCP - General Internal Medicine 11/03/22 Yossi Landers MD [address] [place] [address] PCP - [employer] 11/20/22 Daniela Alvarado ER NURSE 09/09/24 Certified Alcohol Counselor Relationship Specialty Start Date End Date Yossi Landers MD [address] [place] [address] PCP - General Internal Medicine 11/03/22 Yossi Landers MD [address] [place] [address] PCP - [employer] 11/20/22 Daniela Alvarado ER NURSE 09/09/24 Certified Alcohol Counselor Relationship Specialty Start Date End Date Yossi Landers MD [address] [place] [address] PCP - General Internal Medicine 11/03/22 Yossi Landers MD [address] [place] [address] PCP - [employer] 11/20/22 Daniela Alvarado ER NURSE 09/09/24 Certified Alcohol Counselor Relationship Specialty Start Date End Date Yossi Landers MD [address] [place] [address] PCP - General Internal Medicine 11/03/22 Yossi Landers MD [address] [place] [address] PCP - [employer] 11/20/22 Daniela Alvarado ER NURSE 09/09/24 Certified Alcohol Counselor Relationship Specialty Start Date End Date Yossi Landers MD [address] [place] [address] PCP - General Internal Medicine 11/03/22 Yossi Landers MD [address] [place] [address] PCP - [employer] 11/20/22 Daniela Alvarado LPN 09/09/24 Certified Alcohol Counselor Relationship Specialty Start Date End Date Yossi Landers MD [address] [place] [address] PCP - General Internal Medicine 11/03/22 Yossi Landers MD [address] [place] [address] PCP - [employer] 11/20/22 Daniela Alvarado LPN [address] [place] [address] 09/09/24 Certified Alcohol Counselor Relationship Specialty Start Date End Date Yossi Landers MD [address] [place] [address] PCP - General Internal Medicine 11/03/22 Yossi Landers MD [address] [place] [address] PCP - [employer] 11/20/22 Daniela Alvarado LPN [address] [place] [address] 09/09/24 Certified Alcohol Counselor Relationship Specialty Start Date End Date Yossi Landers MD [address] [place] [address] PCP - General Internal Medicine 11/03/22 Yossi Landers MD [address] [place] [address] PCP - Hum[employer] 11/20/22 Daniela Alvarado LPN [address] [place] [address] 09/09/24 Certified Alcohol Counselor Relationship Specialty Start Date End Date Yossi Landers MD [address] [place] [address] PCP - General Internal Medicine 11/03/22 Yossi Landers MD [address] [place] [address] PCP - Hum[employer] 11/20/22 Daniela Alvarado LPN [address] [place] [address] 09/09/24 Certified Alcohol Counselor Relationship Specialty Start Date End Date Yossi Landers MD [address] [place] [address] PCP - General Internal Medicine 11/03/22 Yossi Landers MD [address] [place] [address] PCP - Hum[employer] 11/20/22 Daniela Alvarado LPN [address] [place] [address] 09/09/24 Certified Alcohol Counselor Relationship Specialty Start Date End Date Yossi Landers MD [address] [place] [address] PCP - General Internal Medicine 11/03/22 Yossi Landers MD [address] [place] [address] PCP - [employer] 11/20/22 Daniela Alvarado LPN [address] [place] [address] 09/09/24 Certified Alcohol Counselor Relationship Specialty Start Date End Date Yossi Landers MD [address] [place] [address] PCP - General Internal Medicine 11/03/22 Yossi Landers MD [address] [place] [address] PCP - [employer] 11/20/22 Daniela Alvarado LPN [address] [place] [address] 09/09/24 Certified Alcohol Counselor Relationship Specialty Start Date End Date Yossi Landers MD [address] [place] [address] PCP - General Internal Medicine 11/03/22 Yossi Landers MD [address] [place] [address] PCP - [employer] 11/20/22 Daniela Alvarado LPN [address] [place] [address] 09/09/24 Certified Alcohol Counselor Relationship Specialty Start Date End Date Yossi Landers MD [address] [place] [address] PCP - General Internal Medicine 11/03/22 Yossi Landers MD [address] [place] [address] PCP - Hum[employer] 11/20/22 Daniela Alvarado LPN [address] [place] [address] 09/09/24 Goals (unrecognized section and content) Goals [...] BE BASED ON THE PRIMARY CLINICAL RECORDS. [employer] provides no warranty or guarantee of the accuracy or completeness of information in this document.
--- OUTSIDE RECORDS SUMMARY | 2025-02-19 19:25 | XMS_ITS | Encounter Summary ---
Author Organization [facility] Address [address] [facility] [place] [address] Care Team Providers Care Exercise Physiologist Certified Name Role Phone Yossi Landers MD Primary Care Provider [phone] Yossi Landers MD Unavailable [phone] Seble Mejia RN Unavailable Daniela Alvarado LPN Unavailable Encounter Details Date Type Department Care Team (Late st Contact Info) Description 01/27/2023 Abstract [facility] [place] [facility] 112 [facility] 110 [place] [phone] Yossi Landers MD 112 [facility] 110 [place], [place] [address] Social History Tobacco Use Types Packs/Day Years [...] 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 Not very hard 11/12/2022 [facility] [place] of Occupat ional Health - Occupational Stress [...] [address] [facility] 110 [place] [address] Yossi Landers MD [address] [facility] 110 [place] [address] documented as of this encounter Visit Diagnoses Not on filedocumented in this encounter Care Teams Exercise Physiologist Certified Relationship Specialty Start Date End Date Yossi Landers MD [address] [facility] 110 [place] [address] PCP - General Internal Medicine 11/03/22 Yossi Landers MD [address] [facility] 110 [place] [address] PCP - Hum[employer] 11/20/22 Seble Mejia, RN [address] [place] [address] [facility] 07/29/24 09/09/24 Daniela Alvarado LPN [address] [place] [address] 09/09/24 documented as of this encounter
--- OUTSIDE RECORDS SUMMARY | 2025-02-19 19:25 | XMS_ITS | Encounter Summary ---
Author Organization [facility] Address [address] [place] [address] Care Team Providers Care Mobile Paint Specialist Name Role Phone Yossi Landers MD Primary Care Provider Yossi Landers MD Unavailable Seble Mejia RN Unavailable Daniela Alvarado LPN Unavailable Encounter Details Date Type Department Care Team (Late st Contact Info) Description 05/28/2024 Clinisync Result Encounter N[facility] External Department Unsolicited Bel Dominique MD [address] [facility] [address] [place] [address] Social History Tobacco Use Types Packs/Day Years [...] Recorded Patient Health Questionnaire-2 Score 0 10/12/2023 [facility] [place] of Occupat ional Health - Occupational Stress [...] 11:15 AM EDT Office Visit [facility] [place] [facility] [address] [facility] [address] [place] [address] Yossi Landers MD [address] [facility] [address] [place] [address] documented as of this encounter Procedures Procedure Name Priority Date/Time Associated Diagnosis Comments US THYROID 05/28/2024 6:22 AM EST documented in this encounter Results * US thyroid (05/28/2024 6:22 AM EST) Anatomical Region Laterality Modality Head, Neck Ultrasound 05/28/2024 6:22 AM EST Narrative 05/28/2024 6:24 [place] [address] Ultrasound Report Signed Patient: JAQUELIN NORWOOD MR#: [id number] : 1940 Acct:[id number] Age/Sex: 84 / F ADM Date: 05/27/24 Loc: US Attending Dr: Bel Dominique M.D. Ordering Physician: Bel Dominique M.D. Date of Service: 05/27/24 Procedure(s): US thyroid Accession Number(s): [id number] cc: YOSSI LANDERS ; Bel Dominique M.D. [address] [address] Patient Name: JAQUELIN NORWOOD MRN: [id number] date: 1940 Sex: F Assigned Patient Location: US Current Patient Location: Accession/Order Number: [id number] Exam Date: 05/27/2024 13:36 Report Date: 05/28/2024 [...] M.D. Signed By: 05/28/24623 DD/ 1 TD/TT: Talent Development Consultant: Procedure Note Radiology, Radiologist, MD - 05/28/2024 [place] [address] Ultrasound Report Signed Patient: JAQUELIN NORWOOD JMR#: [id number] : 1940cct:[id number] Age/Sex: 84 / FADM Date: 05/27/24 Loc: US Attending Dr: Bel Dominique M.D. Ordering Physician: Bel Dominique M.D. Date of Service: 05/27/24 Procedure(s): US thyroid Accession Number(s): [id number] cc: YOSSI LANDERS ; Bel Dominique M.D. [facility] [place] [id number] Patient Name: JAQUELIN NORWOOD MRN: [id number] date: 1940 Sex: F Assigned Patient Location: US Current Patient Location: Accession/Order Number: [id number] Exam Date: 05/27/2024 13:36 Report Date: 05/28/2024 [...] Wagner M.D. Signed By:05/28/24623 DD/ 1 TD/TT: Talent Development Consultant: us Bel Dominique MD IMG US PROCEDURES Final Resul t documented in this encounter Visit Diagnoses Not on filedocumented in this encounter Care Teams Mobile Paint Specialist Relationship Specialty Start Date End Date Yossi Landers MD [address] [facility] [address] [place] [address] PCP - General Internal Medicine 11/03/22 Yossi Landers MD [address] [facility] [address] [place] [address] PCP - Humana 11/20/22 Seble Mejia, CIPRIANO [address] [place] [place] [address] Clinical [facility] Family [facility] 07/29/24 09/09/24 Daniela Alvarado LPN [address] [facility] 110 [place] [address] 09/09/24 documented as of this encounter
--- OUTSIDE RECORDS SUMMARY | 2025-02-19 19:25 | XMS_ITS | Encounter Summary ---
Author Organization [facility] Address [address] [facility] [place] [address] Care Team Providers Care Secondary Market Manager Name Role Phone Yossi Landers MD Primary Care Provider Yossi Landers MD Unavailable [phone] Seble Mejia RN Unavailable Daniela Alvarado LPN Unavailable Encounter Details Date Type Department Care Team (Late st Contact Info) Description 08/05/2023 Abstract [facility] [place] [facility] 112 [facility] 110 [place] [address] Yossi Landers MD 112 [facility] 110 [place], [place] [address] Social History Tobacco Use Types Packs/Day Years [...] [place] [address] [facility] 110 [place] [address] Yossi Landers MD [address] [facility] 110 [place] [address] documented as of this encounter Visit Diagnoses Not on filedocumented in this encounter Care Teams Secondary Market Manager Relationship Specialty Start Date End Date Yossi Landers MD [address] [facility] 110 [place] [address] PCP - General Internal Medicine 11/03/22 Yossi Landers MD [address] [facility] 110 [place] [address] PCP - Humana 11/20/22 Seble Mejia RN [address] [place] [address] [facility] 07/29/24 09/09/24 Daniela Alvarado LPN 112 [place] [address] 09/09/24 documented as of this encounter
--- OUTSIDE RECORDS SUMMARY | 2025-02-19 19:25 | XMS_ITS | Encounter Summary ---
Author Organization [facility] Address [address] [facility] [place] [address] Care Team Providers Care Entrepreneurship Program Director Name Role Phone Yossi Landers MD Primary Care Provider [phone] Yossi Landers MD Unavailable [phone] Seble Mejia RN Unavailable [phone] Daniela Alvarado LPN Unavailable Encounter Details Date Type Department Care Team (Late st Contact Info) Description 08/05/2023 Abstract [facility] [place] [facility] 112 [facility] 110 [place] [address] Yossi Landers MD 112 [facility] 110 [place], [place] [address] Social History Tobacco Use Types Packs/Day Years [...] Recorded Patient Health Questionnaire-2 Score 0 02/09/2023 [facility] of Occupat ional Health - [...] Visit [facility] [place] [address] [facility] 110 [place] [address] Yossi Landers MD [address] [facility] 110 [place] [address] documented as of this encounter Visit Diagnoses Not on filedocumented in this encounter Care Teams Entrepreneurship Program Director Relationship Specialty Start Date End Date Yossi Landers MD [address] [facility] 110 [place] [address] PCP - General Internal Medicine 11/03/22 Yossi Landers MD [address] [facility] 110 [place] [address] PCP - Humana 11/20/22 Seble Mejia RN [address] [place] [address] [facility] 07/29/24 09/09/24 Daniela Alvarado LPN 112 [place] [address] 09/09/24 documented as of this encounter
--- OUTSIDE RECORDS SUMMARY | 2025-02-19 19:26 | XMS_ITS | Encounter Summary ---
Author Organization [facility] Address [address] [facility] [place] [address] Care Team Providers Care Cut Out Machine Operator Name Role Phone Yossi Landers MD Primary Care Provider Yossi Landers MD Unavailable [phone] Seble Mejia RN Unavailable Daniela Alvarado LPN Unavailable Encounter Details Date Type Department Care Team (Late st Contact Info) Description 11/30/2023 Abstract [facility] [place] [facility] 112 [facility] 110 [place] [address] Yossi Landers MD 112 [facility] 110 [place], [place] [address] Social History Tobacco Use Types Packs/Day Years [...] Recorded Patient Health Questionnaire-2 Score 0 10/12/2023 [facility] - Occupational Stress Questionnaire [...] [facility] [place] [address] [facility] 110 [place] [address] Yossi Landers MD [address] [facility] 110 [place] [address] documented as of this encounter Visit Diagnoses Not on filedocumented in this encounter Care Teams Cut Out Machine Operator Relationship Specialty Start Date End Date Yossi Landers MD [address] [facility] 110 [place] [address] PCP - General Internal Medicine 11/03/22 Yossi Landers MD [address] [facility] 110 [place] [address] PCP - Humana 11/20/22 Seble Mejia RN [address] [place] [address] [facility] 07/29/24 09/09/24 Daniela Alvarado LPN 112 [place] [address] 09/09/24 documented as of this encounter
--- OUTSIDE RECORDS SUMMARY | 2025-02-19 19:26 | XMS_ITS | Encounter Summary ---
Author Organization [facility] Address [address] [place] [address] Care Team Providers Care Solid Waste Collector Name Role Phone Yossi Landers MD Primary Care Provider [phone] Yossi Landers MD Unavailable [phone] Daniela Alvarado LPN Unavailable Encounter Details Date Type Department Care Team (Late st Contact Info) Description 01/19/2025 Abstract [facility] [place] [facility] [address] [facility] 110 [place] [address] Yossi Landers MD 112 [facility] 110 [place], [place] [address] Social History Tobacco Use Types Packs/Day Years [...] How often do you attend chur or jain services? Never 11/12/2022 Do you [...] Recorded Patient Health Questionnaire-2 Score 2 01/16/2025 [facility] - Occupational Stress Questionnaire [...] AM EDT Office Visit [facility] [place] [facility] [address] [email or web address] 110 [place] [address] Yossi Landers MD [address] [facility] 110 [place], [place] [address] documented as of this encounter Visit Diagnoses Not on filedocumented in this encounter Care Teams Solid Waste Collector Relationship Specialty Start Date End Date Yossi Landers MD [address] [place] [address] PCP - General Internal Medicine 11/03/22 Yossi Landers MD [address] [facility] 110 [place] [address] PCP - Humana 11/20/22 Daniela Alvarado LPN [address] [address] 09/09/24 documented as of this encounter
--- OUTSIDE RECORDS SUMMARY | 2025-02-19 19:26 | XMS_ITS | Encounter Summary ---
Author Organization [facility] Address [address] [place] [address] Care Team Providers Care Explosives Engineer Name Role Phone Yossi Landers MD Primary Care Provider [phone] Yossi Landers MD Unavailable [phone] Daniela Alvarado LPN Unavailable Encounter Details Date Type Department Care Team (Late st Contact Info) Description 09/22/2024 Abstract [facility] [place] [facility] [address] [facility] 110 [place] [address] Yossi Landers MD 112 [facility] 110 [place], [place] [address] Social History Tobacco Use Types Packs/Day Years [...] How often do you attend chur or yarsanism services? Never 11/12/2022 Do you [...] Recorded Patient Health Questionnaire-2 Score 2 09/15/2024 [facility] of Occupat ional Health [...] AM EDT Office Visit [facility] [place] [facility] [address] [facility] 110 [place] [address] Yossi Landers MD [address] [facility] 110 [place], [place] [address] documented as of this encounter Visit Diagnoses Not on filedocumented in this encounter Care Teams Explosives Engineer Relationship Specialty Start Date End Date Yossi Landers MD [address] [place] [address] PCP - General Internal Medicine 11/03/22 Yossi Landers MD [address] [facility] 110 [place] [address] PCP - Humana 11/20/22 Daniela Alvarado LPN [address] [address] 09/09/24 documented as of this encounter
--- OUTSIDE RECORDS SUMMARY | 2025-02-19 19:26 | XMS_ITS | Encounter Summary ---
Author Organization [facility] Address [address] [place] [address] Care Team Providers Care Payloader Machine Operator Name Role Phone Yossi Landers MD Primary Care Provider [phone] Yossi Landers MD Unavailable [phone] Seble Mejia RN Unavailable Daniela Alvarado LPN Unavailable Encounter Details Date Type Department Care Team (Late st Contact Info) Description 12/02/2023 Abstract [facility] [place] [facility] 112 [facility] 110 [place] [address] Yossi Landers MD 112 [facility] 110 [place], [place] [address] Social History Tobacco Use Types Packs/Day Years [...] Recorded Patient Health Questionnaire-2 Score 0 10/12/2023 [facility] - Occupational Stress [...] [address] [facility] 110 [place] [address] Yossi Landers MD [address] [facility] 110 [place] [address] documented as of this encounter Visit Diagnoses Not on filedocumented in this encounter Care Teams Payloader Machine Operator Relationship Specialty Start Date End Date Yossi Landers MD [address] [facility] 110 [place] [address] PCP - General Internal Medicine 11/03/22 Yossi Landers MD [address] [facility] 110 [place] [address] PCP - Humana 11/20/22 Seble Mejia RN [address] [place] [address] [facility] 07/29/24 09/09/24 Daniela Alvarado LPN 112 [place] [address] 09/09/24 documented as of this encounter
--- OUTSIDE RECORDS SUMMARY | 2025-02-19 19:26 | XMS_ITS | Encounter Summary ---
Author Organization [facility] Address [address] [facility] [place] [address] Care Team Providers Care Neon Sign Mechanic Name Role Phone Yossi Landers MD Primary Care Provider [phone] Yossi Landers MD Unavailable Seble Mejia RN Unavailable [phone] Daniela Alvarado LPN Unavailable Encounter Details Date Type Department Care Team (Late st Contact Info) Description 12/29/2023 Orders Only [facility] [place] [facility] [address] [facility] [address] [place] [address] Unallocated, Noms Provider, [address] [place] [address] Social History Tobacco Use Types Packs/Day Years [...] often do you attend chur ch or rastafarian services? Never 11/12/2022 Do you [...] [facility] 110 [place] [address] Yossi Landers MD [address] [facility] 110 [place], [place] [address] documented as of this encounter Procedures Procedure Name Priority Date/Time Associated Diagnosis Comments ELECTROCARDIOGRAM REPORT Routine 024 9:42 AM EDT documented in this encounter Results * Electrocardiogram Report (12/28/2023 9:42 AM EDT) us Noms Provider Unallocated MD IN CLINIC/BEDSIDE O RDERABLES Final Result documented in this encounter Visit Diagnoses Not on filedocumented in this encounter Care Teams Neon Sign Mechanic Relationship Specialty Start Date End Date Yossi Landers MD [address] [place], [place] [address] PCP - General Internal Medicine 11/03/22 Yossi Landers MD [address] [facility] 110 [place] [address] PCP - Humana 11/20/22 Seble Mejia, RN [address] [place], [place] [address] [facility] 07/29/24 09/09/24 Daniela Alvarado LPN [address] [address] 09/09/24 documented as of this encounter
--- OUTSIDE RECORDS SUMMARY | 2025-02-19 19:26 | XMS_ITS | Encounter Summary ---
Author Organization [facility] Address [address] [facility] [place] [address] Care Team Providers Care Appraiser Boats And Marine Name Role Phone Yossi Landers MD Primary Care Provider [phone] Yossi Landers MD Unavailable [phone] Seble Mejia RN Unavailable Daniela Alvarado LPN Unavailable Encounter Details Date Type Department Care Team (Late st Contact Info) Description 12/30/2023 Orders Only [facility] [place] [facility] [address] [facility] 110 [place] [address] Unallocated, Noms Provider, [address] [place] [address] Social History Tobacco Use Types Packs/Day Years [...] often do you attend chur ch or mandaeism services? Never 11/12/2022 Do you [...] Recorded Patient Health Questionnaire-2 Score 0 10/12/2023 [facility] of Occupat ional Health - [...] 11:15 AM EDT Office Visit [facility] [place] 112 [facility] 110 [place] [address] Yossi Landers MD 112 [facility] 110 [place] [address] documented as of this encounter Procedures Procedure [...] filedocumented in this encounter Care Teams Appraiser Boats And Marine Relationship Specialty Start Date End Date Yossi Landers MD [address] [facility] 110 [place] [address] PCP - General Internal Medicine 11/03/22 Yossi Landers MD [address] [facility] 110 [place] [address] PCP - Humana 11/20/22 Seble Mejia RN [address] [place] [address] Clinical [facility] 07/29/24 09/09/24 Daniela Alvarado LPN [address] [facility] 110 [place] [address] 09/09/24 documented as of this encounter
--- OUTSIDE RECORDS SUMMARY | 2025-02-19 19:26 | XMS_ITS | Encounter Summary ---
Author Organization [facility] Address [address] [facility] [place] [address] Care Team Providers Care Bill Of Lading Clerk Name Role Phone Yossi Landers MD Primary Care Provider Yossi Landers MD Unavailable [phone] Seble Mejia RN Unavailable Daniela Alvarado LPN Unavailable Encounter Details Date Type Department Care Team (Late st Contact Info) Description 12/30/2023 Abstract [facility] [place] [facility] 112 [facility] 110 [place] [address] Yossi Landers MD 112 [facility] 110 [place], [place] [address] Social History Tobacco Use Types Packs/Day Years [...] Recorded Patient Health Questionnaire-2 Score 0 10/12/2023 [facility] - [...] [address] [facility] 110 [place] [address] Yossi Landers MD [address] [facility] 110 [place] [address] documented as of this encounter Visit Diagnoses Not on filedocumented in this encounter Care Teams Bill Of Lading Clerk Relationship Specialty Start Date End Date Yossi Landres MD [address] [facility] 110 [place] [address] PCP - General Internal Medicine 11/03/22 Yossi Landers MD [address] [facility] 110 [place] [address] PCP - Humana 11/20/22 Seble Mejia RN [address] [place] [address] Clinical [facility] 07/29/24 09/09/24 Daniela Alvarado LPN 112 [place] [address] 09/09/24 documented as of this encounter
--- OUTSIDE RECORDS SUMMARY | 2025-02-19 19:26 | XMS_ITS | Encounter Summary ---
Author Organization [facility] Address [address] [facility] [place] [address] Care Team Providers Care Developmental Behavioral Physician Name Role Phone Yossi Landers MD Primary Care Provider Yossi Landers MD Unavailable [phone] Seble Mejia RN Unavailable [phone] Daniela Alvarado LPN Unavailable Encounter Details Date Type Department Care Team (Late st Contact Info) Description 11/27/2022 Abstract [facility] [place] [facility] 112 [facility] 110 [place] [address] Yossi Landers MD 112 [facility] 110 [place], [place] [address] Social History Tobacco Use Types Packs/Day Years [...] often do you attend chur ch or jainism services? Never 11/12/2022 Do you belong to [...] 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 Not very hard 11/12/2022 [facility] Occupat ional Health [...] Visit [facility] [place] [address] [facility] 110 [place] [address] Yossi Landers MD [address] [facility] 110 [place] [address] documented as of this encounter Visit Diagnoses Not on filedocumented in this encounter Care Teams Developmental Behavioral Physician Relationship Specialty Start Date End Date Yossi Landers MD [address] [facility] 110 [place] [address] PCP - General Internal Medicine 11/03/22 Yossi Landers MD [address] [facility] 110 [place] [address] PCP - Humana 11/20/22 Seble Mejia RN [address] [place] [address] Clinical [facility] Family [facility] 07/29/24 09/09/24 Daniela Alvarado LPN 112 [place] [address] 09/09/24 documented as of this encounter
--- OUTSIDE RECORDS SUMMARY | 2025-02-19 19:26 | XMS_ITS | Encounter Summary ---
Author Organization [facility] Address [address] [facility] [place] [address] Care Team Providers Care It Desktop Support Technician Name Role Phone Yossi Landers MD Primary Care Provider [phone] Yossi Landers MD Unavailable [phone] Seble Mejia RN Unavailable Daniela Alvarado LPN Unavailable Encounter Details Date Type Department Care Team (Late st Contact Info) Description 12/02/2022 Abstract [facility] [place] [facility] 112 [facility] 110 [place] [address] Yossi Landers MD 112 [facility] 110 [place], [place] [address] Social History Tobacco Use Types Packs/Day Years [...] any clubs o r organizations such as faith groups, unions, fraternal or athletic groups, or [...] 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 Not very hard 11/12/2022 [facility] of Occupat ional Health - Occupational [...] [address] [facility] 110 [place] [address] Yossi Landers MD [address] [facility] 110 [place] [address] documented as of this encounter Visit Diagnoses Not on filedocumented in this encounter Care Teams It Desktop Support Technician Relationship Specialty Start Date End Date Yossi Landers MD [address] [facility] 110 [place] [address] PCP - General Internal Medicine 11/03/22 Yossi Landers MD [address] [facility] 110 [place] [address] PCP - Humana 11/20/22 Seble Mejia RN [address] [place] [address] Clinical [facility] Family [facility] 07/29/24 09/09/24 Daniela Alvarado LPN 112 [place] [address] 09/09/24 documented as of this encounter
--- OUTSIDE RECORDS SUMMARY | 2025-02-19 19:26 | XMS_ITS | Encounter Summary ---
Author Organization [facility] Address [address] [place] [address] Care Team Providers Care Emergency Medicine Name Role Phone Yossi Landers MD Primary Care Provider [phone] Yossi Landers MD Unavailable [phone] Daniela Alvarado LPN Unavailable Encounter Details Date Type Department Care Team (Late st Contact Info) Description 01/12/2025 Abstract [facility] [address] [place] [address] Daniela Alvarado LPN [address] [facility] 110 [place] [address] Social History Tobacco Use Types Packs/Day Years [...] How often do you attend chur or congregation services? Never 11/12/2022 Do you belong to [...] Recorded Patient Health Questionnaire-2 Score 2 01/16/2025 [facility] of Occupat ional Health [...] AM EDT Office Visit [facility] [place] [facility] [address] [facility] 110 [place] [address] Yossi Landers MD [address] 110 [place] [address] documented as of this encounter Visit Diagnoses Not on filedocumented in this encounter Care Teams Emergency Medicine Relationship Specialty Start Date End Date Yossi Landers MD [address] [place] [address] PCP - General Internal Medicine 11/03/22 Yossi Landers MD [address] [facility] 110 [place] [address] PCP - Humana 11/20/22 Daniela Alvarado LPN [address] [address] 09/09/24 documented as of this encounter
--- OUTSIDE RECORDS SUMMARY | 2025-02-19 19:26 | XMS_ITS | Encounter Summary ---
Author Organization [facility] Address [address] [place] [address] Care Team Providers Care Drum Sprayer Name Role Phone Yossi Landers MD Primary Care Provider Yossi Landers MD Unavailable [phone] Seble Mejia RN Unavailable Daniela Alvarado LPN Unavailable Encounter Details Date Type Department Care Team (Late st Contact Info) Description 12/22/2023 Abstract [facility] [place] [facility] 112 [facility] 110 [place] [address] Yossi Landers MD 112 [facility] 110 [place], [place] [address] Social History Tobacco Use Types Packs/Day Years [...] Recorded Patient Health Questionnaire-2 Score 0 10/12/2023 [facility] [...] [address] [facility] 110 [place] [address] Yossi Landers MD [address] [facility] 110 [place] [address] documented as of this encounter Visit Diagnoses Not on filedocumented in this encounter Care Teams Drum Sprayer Relationship Specialty Start Date End Date Yossi Landers MD [address] [facility] 110 [place] [address] PCP - General Internal Medicine 11/03/22 Yossi Landers MD [address] [facility] 110 [place] [address] PCP - Humana 11/20/22 Seble Mejia RN [address] [place] [address] Clinical [facility] Family Medicine 07/29/24 09/09/24 Daniela Alvarado LPN 112 [place] [address] 09/09/24 documented as of this encounter
--- OUTSIDE RECORDS SUMMARY | 2025-02-19 19:26 | XMS_ITS | Encounter Summary ---
Author Organization [facility] Address [address] [place] [address] Care Team Providers Care Commercial Energy Rater Name Role Phone Yossi Landers MD Primary Care Provider [phone] Yossi Landers MD Unavailable [phone] Daniela Alvarado LPN Unavailable Encounter Details Date Type Department Care Team (Late st Contact Info) Description 01/19/2025 Abstract [facility] [place] [facility] [address] [facility] 110 [place] [address] Yossi Landers MD 112 [facility] 110 [place], [place] [address] Social History Tobacco Use Types Packs/Day Years [...] How often do you attend chur or episcopalian services? Never 11/12/2022 Do you belong to any clubs o r organizations such as episcopal groups, unions, fraternal or athletic groups, or [...] Recorded Patient Health Questionnaire-2 Score 2 01/16/2025 [employer] [facility] - Occupational Stress [...] AM EDT Office Visit [facility] [place] [facility] [address] [facility] 110 [place] [address] Yossi Landers MD [address] [facility] 110 [place], [place] [address] documented as of this encounter Visit Diagnoses Not on filedocumented in this encounter Care Teams Commercial Energy Rater Relationship Specialty Start Date End Date Yossi Landers MD [address] [place] [address] PCP - General Internal Medicine 11/03/22 Yossi Landers MD [address] [facility] 110 [place] [address] PCP - Humana 11/20/22 Daniela Alvarado LPN [address] [address] 09/09/24 documented as of this encounter
--- OUTSIDE RECORDS SUMMARY | 2025-02-19 19:26 | XMS_ITS | Encounter Summary ---
Author Organization [facility] Address [address] [place] [address] Care Team Providers Care Wool Washer Feeder Name Role Phone Yossi Landers MD Primary Care Provider [phone] Yossi Landers MD Unavailable [phone] Daniela Alvarado LPN Unavailable Encounter Details Date Type Department Care Team (Late st Contact Info) Description 01/19/2025 Abstract [facility] [place] [facility] [address] [facility] 110 [place] [address] Yossi Landers MD 112 [facility] 110 [place], [place] [address] Social History Tobacco Use Types Packs/Day Years [...] Recorded Patient Health Questionnaire-2 Score 2 01/16/2025 [facility] - Occupational Stress Questionnaire [...] AM EDT Office Visit [facility] [place] [facility] [address] [facility] 110 [place] [address] Yossi Landers MD [address] [facility] 110 [place], [place] [address] documented as of this encounter Visit Diagnoses Not on filedocumented in this encounter Care Teams Wool Washer Feeder Relationship Specialty Start Date End Date Yossi Landers MD [address] [place] [address] PCP - General Internal Medicine 11/03/22 Yossi Landers MD [address] [facility] 110 [place] [address] PCP - Humana 11/20/22 Daniela Alvarado LPN [address] [address] 09/09/24 documented as of this encounter
--- OUTSIDE RECORDS SUMMARY | 2025-02-19 19:26 | XMS_ITS | Encounter Summary ---
Author Organization [facility] Address [address] [place] [address] Care Team Providers Care Automotive Service Management Teacher Name Role Phone Yossi Landers MD Primary Care Provider [phone] Yossi Landers MD Unavailable [phone] Daniela Alvarado LPN Unavailable Encounter Details Date Type Department Care Team (Late st Contact Info) Description 01/23/2025 Abstract [facility] [place] [facility] [address] [facility] 110 [place] [address] Yossi Landers MD 112 [facility] 110 [place], [place] [address] Social History Tobacco Use Types Packs/Day Years [...] Recorded Patient Health Questionnaire-2 Score 2 01/16/2025 [facility] - Occupational Stress Questionnaire [...] AM EDT Office Visit [facility] [place] [facility] [address] [facility] 110 [place] [address] Yossi Landers MD [address] [facility] 110 [place], [place] [address] documented as of this encounter Visit Diagnoses Not on filedocumented in this encounter Care Teams Automotive Service Management Teacher Relationship Specialty Start Date End Date Yossi Landers MD [address] [place] [address] PCP - General Internal Medicine 11/03/22 Yossi Landers MD [address] [facility] 110 [place] [address] PCP - Humana 11/20/22 Daniela Alvarado LPN [address] [address] 09/09/24 documented as of this encounter
--- OUTSIDE RECORDS SUMMARY | 2025-02-19 19:26 | XMS_ITS | Encounter Summary ---
Author Organization [facility] Address [address] [place] [address] Phone Care Team Providers Care Alteration Tailor Name Role Phone Unavailable Primary Care Provider Unavailabl e Encounter Details Date Type Department Care Team (Late st Contact Info) Description 04/18/2021 Orders Only [facility] [address] [place] [address] Conversion, Onbase Social History Tobacco Use Types [...]
--- OUTSIDE RECORDS SUMMARY | 2025-02-19 19:26 | XMS_ITS | Encounter Summary ---
Author Organization [facility] Address [address] [facility] [place] [address] Care Team Providers Care Data Modeling Architect Name Role Phone Yossi Landers MD Primary Care Provider Yossi Landers MD Unavailable [phone] Seble Mejia RN Unavailable Daniela Alvarado LPN Unavailable Encounter Details Date Type Department Care Team (Late st Contact Info) Description 11/27/2022 Abstract [facility] [place] [facility] 112 [facility] 110 [place] [address] Yossi Landers MD 112 [facility] 110 [place], [place] [address] Social History Tobacco Use Types Packs/Day Years [...] 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 Not very hard 11/12/2022 [facility] ional Health - Occupational [...] Visit N[facility]S [place] [address] [facility] 110 [place] [address] Yossi Landers MD [address] [facility] 110 [place] [address] documented as of this encounter Visit Diagnoses Not on filedocumented in this encounter Care Teams Data Modeling Architect Relationship Specialty Start Date End Date Yossi Landers MD [address] [facility] 110 [place] [address] PCP - General Internal Medicine 11/03/22 Yossi Landers MD [address] [facility] 110 [place] [address] PCP - Humana 11/20/22 Seble Mejia RN [address] [place] [address] Clinical Advocate Family Medicine 07/29/24 09/09/24 Daniela Alvarado LPN 112 [place] [address] 09/09/24 documented as of this encounter
--- OUTSIDE RECORDS SUMMARY | 2025-02-19 19:26 | XMS_ITS | Encounter Summary ---
Author Organization [facility] Address [address] [facility] [place] [address] Care Team Providers Care Executive Assistant Name Role Phone Yossi Landers MD Primary Care Provider [phone] Yossi Landers MD Unavailable [phone] Seble Mejia RN Unavailable [phone] Daniela Alvarado LPN Unavailable Encounter Details Date Type Department Care Team (Late st Contact Info) Description 10/13/2023 Abstract [facility] [place] [facility] 112 [facility] 110 [place] [address] Yossi Landers MD 112 [facility] 110 [place], [place] [address] Social History Tobacco Use Types Packs/Day Years [...] 0 10/12/2023 [facility] - [...] [address] [facility] 110 [place] [address] Yossi Landers MD [address] [facility] 110 [place] [address] documented as of this encounter Visit Diagnoses Not on filedocumented in this encounter Care Teams Executive Assistant Relationship Specialty Start Date End Date Yossi Landers MD [address] [facility] 110 [place] [address] PCP - General Internal Medicine 11/03/22 Yossi Landers MD [address] [facility] 110 [place] [address] PCP - Humana 11/20/22 Seble Mejia RN [address] [place] [address] Clinical Advocate Family Medicine 07/29/24 09/09/24 Daniela Alvarado LPN 112 [place] [address] 09/09/24 documented as of this encounter
--- OUTSIDE RECORDS SUMMARY | 2025-02-19 19:26 | XMS_ITS | Encounter Summary ---
Author Organization [facility] Address [address] [place] [address] Care Team Providers Care Accounting Assistant Name Role Phone Yossi Landers MD Primary Care Provider [phone] Yossi Landers MD Unavailable [phone] Daniela Alvarado LPN Unavailable Encounter Details Date Type Department Care Team (Late st Contact Info) Description 10/19/2024 Abstract [facility] [place] [facility] [address] [facility] 110 [place] [address] Yossi Landers MD 112 [facility] 110 [place], [place] [address] Social History Tobacco Use Types Packs/Day Years [...] Recorded Patient Health Questionnaire-2 Score 0 10/07/2024 [facility] of Occupat ional Health - Occupational Stress [...] 02/23/2025 11:15 AM EDT Office Visit [facility] [place] [facility] [address] [facility] 110 [place] [address] Yossi Landers MD [address] [facility] 110 [place], [place] [address] documented as of this encounter Visit Diagnoses Not on filedocumented in this encounter Care Teams Accounting Assistant Relationship Specialty Start Date End Date Yossi Landers MD [address] [place] [address] PCP - General Internal Medicine 11/03/22 Yossi Landers MD [address] [facility] 110 [place] [address] PCP - Humana 11/20/22 Daniela Alvarado LPN [address] [address] 09/09/24 documented as of this encounter
--- OUTSIDE RECORDS SUMMARY | 2025-02-19 19:26 | XMS_ITS | Encounter Summary ---
Author Organization [facility] Address [address] [place] [address] Care Team Providers Care Counter Supply Worker Name Role Phone Yossi Landers MD Primary Care Provider [phone] Yossi Landers MD Unavailable [phone] Seble Mejia RN Unavailable Daniela Alvarado LPN Unavailable Encounter Details Date Type Department Care Team (Late st Contact Info) Description 11/20/2023 Clinisync Result Encounter N[facility] External Department Unsolicited Yossi Landers MD [address] [facility] 110 [place] [address] Social History Tobacco Use Types Packs/Day Years [...] Score 0 10/12/2023 [facility] of Occupat ional Health [...] AM EDT Office Visit [facility] [place] [facility] [address] [facility] 110 [place] [address] Yossi Landers MD 112 [facility] 110 [place] [address] documented as of this encounter Procedures Procedure Name Priority Date/Time Associated Diagnosis Comments XR RIBS LEFT INCLUDE CHEST (MIN 3 VIEWS) 11/20/2023 6:43 AM EDT documented in this encounter Results * XR RIBS LEFT INCLUDE CHEST (MIN 3 VIEWS) (11/20/2023 6:43 AM EDT) Anatomical Region Laterality Modality Radiographic Joanna ging 11/20/2023 6:43 AM EDT Narrative 11/20/2023 6:46 AM EDT The [address] [address] XRay Report Signed Patient: JAQUELIN NORWOOD MR#: [id number] : 1940 Acct:[id number] Age/Sex: 83 / F ADM Date: 11/19/23 Loc: RAD Attending Dr: YOSSI LANDERS Ordering Physician: YOSSI LANDERS Date of Service: 11/19/23 Procedure(s): XR ribs LT min 3V w CXR1V Accession Number(s): [id number] cc: YOSSI LANDERS The [place] [address] Patient Name: JAQUELIN NORWOOD MRN: [facility]:[id number] date: 1940 Sex: F Assigned Patient Location: RAD Current Patient Location: Accession/Order Number: [id number] Exam Date: 11/19/2023 13:28 Report Date: 11/20/2023 [...] Wagner M.D. Signed By: 11/20/2346 DD/ TD/TT: Feather Duster Winder: Procedure Note Radiology, Radiologist, MD - 11/20/2023 [place] [address] XRay Report Signed Patient: JAQUELIN NORWOOD JMR#: [id number] : 1940cct:[id number] Age/Sex: 83 / FADM Date: 11/19/23 Loc: RAD Attending Dr: YOSSI LANDERS Ordering Physician: YOSSI LANDERS Date of Service: 11/19/23 Procedure(s): XR ribs LT min 3V w CXR1V Accession Number(s): [id number] cc: YOSSI LANDERS [address] [address] Patient Name: JAQUELIN NORWOOD MRN: [id number] date: 1940 Sex: F Assigned Patient Location: [facility] Current Patient Location: Accession/Order Number: [id number] Exam Date: 11/19/2023 13:28 Report Date: 11/20/2023 [...] WAGNER Date: 11/20/2023 06:43 Dictated By: Wisam Wagnre M.D. Signed By:11/20/2346 DD/ TD/TT: Feather Duster Winder: Yossi Landers MD IMG XR PROCEDURES Final Result documented in this encounter Visit Diagnoses Not on filedocumented in this encounter Care Teams Counter Supply Worker Relationship Specialty Start Date End Date Yossi Landers MD [address] [facility] 110 [place] [address] PCP - General Internal Medicine 11/03/22 Yossi Landers MD [address] [facility] 110 [place] [address] PCP - Humana 11/20/22 Seble Mejia, RN [address] [place] [address] Clinical Advocate Family Medicine 07/29/24 09/09/24 Daniela Alvarado LPN 112 [facility] 110 [place] [address] 09/09/24 documented as of this encounter
--- OUTSIDE RECORDS SUMMARY | 2025-02-19 19:26 | XMS_ITS | Encounter Summary ---
Author Organization [facility] Address [address] [facility] [place] [address] Care Team Providers Care Account Development Executive Name Role Phone Yossi Landers MD Primary Care Provider [phone] Yossi Landers MD Unavailable Seble Mejia RN Unavailable Daniela Alvarado LPN Unavailable Encounter Details Date Type Department Care Team (Late st Contact Info) Description 11/03/2023 Orders Only [facility] [place] [facility] [address] [facility] 110 [place] [address] Unallocated, Noms Provider, [address] [place] [address] Social History Tobacco Use Types Packs/Day Years [...] [address] [facility] 110 [place] [address] Yossi Landers MD [address] [facility] 110 [place], [place] [address] documented as of this encounter Procedures Procedure [...] on filedocumented in this encounter Care Teams Account Development Executive Relationship Specialty Start Date End Date Yossi Landers MD [address] [facility] 110 [place], [place] [address] PCP - General Internal Medicine 11/03/22 Yossi Landers MD [address] [facility] 110 [place] [address] PCP - Humana 11/20/22 Seble Mejia, RN [address] [place] [address] Clinical [facility] 07/29/24 09/09/24 Daniela Alvarado LPN [address] [address] 09/09/24 documented as of this encounter
--- OUTSIDE RECORDS SUMMARY | 2025-02-19 19:26 | XMS_ITS | Encounter Summary ---
Author Organization [facility] Address [address] [place] [address] Care Team Providers Care Human Resources Benefits Coordinator Name Role Phone Yossi Landers MD Primary Care Provider [phone] Yossi Landers MD Unavailable [phone] Daniela Alvarado LPN Unavailable Encounter Details Date Type Department Care Team (Late st Contact Info) Description 01/19/2025 Abstract [facility] [address] [place] [phone] Daniela Alvarado LPN [address] [facility] 110 [place] [address] Social History Tobacco Use Types Packs/Day Years [...] How often do you attend chur or mosque services? Never 11/12/2022 Do you [...] Recorded Patient Health Questionnaire-2 Score 2 01/16/2025 [facility] of Occupat ional Health - [...] AM EDT Office [facility] [place] [address] 110 [place] [address] Yossi Landers MD [address] [place] [address] documented as of this encounter Visit Diagnoses Not on filedocumented in this encounter Care Teams Human Resources Benefits Coordinator Relationship Specialty Start Date End Date Yossi Landers MD [address] [place] [address] PCP - General Internal Medicine 11/03/22 Yossi Landers MD [address] [facility] 110 [place] [address] PCP - Humana 11/20/22 Daniela Alvarado LPN [address] [address] 09/09/24 documented as of this encounter
--- OUTSIDE RECORDS SUMMARY | 2025-02-19 19:26 | XMS_ITS | Encounter Summary ---
Author Organization [facility] Address [address] [place] [address] Care Team Providers Care Vocational Education Teacher Name Role Phone Yossi Landers MD Primary Care Provider [phone] Yossi Landers MD Unavailable [phone] Daniela Alvarado LPN Unavailable Encounter Details Date Type Department Care Team (Late st Contact Info) Description 01/23/2025 Abstract [facility] [place] [facility] [address] [facility] 110 [place] [address] Yossi Landers MD 112 [facility] 110 [place], [place] [address] Social History Tobacco Use Types Packs/Day Years [...] any clubs o r organizations such as jewish groups, unions, fraternal or athletic groups, or [...] Recorded Patient Health Questionnaire-2 Score 2 01/16/2025 [facility] [...] AM EDT Office Visit [facility] [place] [facility] [address] [facility] 110 [place] [address] Yossi Landers MD [address] [facility] 110 [place], [place] [address] documented as of this encounter Visit Diagnoses Not on filedocumented in this encounter Care Teams Vocational Education Teacher Relationship Specialty Start Date End Date Yossi Landers MD [address] [place] [address] PCP - General Internal Medicine 11/03/22 Yossi Landers MD [address] [facility] 110 [place] [address] PCP - Humana 11/20/22 Daniela Alvarado LPN [address] [address] 09/09/24 documented as of this encounter
--- OUTSIDE RECORDS SUMMARY | 2025-02-19 19:26 | XMS_ITS | Encounter Summary ---
Author Organization [facility] Address [address] [facility] [place] [address] Care Team Providers Care Print Manager Name Role Phone Yossi Landers MD Primary Care Provider Yossi Landers MD Unavailable [phone] Seble Mejia RN Unavailable Daniela Alvarado LPN Unavailable Encounter Details Date Type Department Care Team (Late st Contact Info) Description 11/03/2023 Abstract [facility] [place] [facility] 112 [facility] 110 [place] [address] Yossi Landers MD 112 [facility] 110 [place], [place] [address] Social History Tobacco Use Types Packs/Day Years [...] any clubs o r organizations such as pentecostalism groups, unions, fraternal or athletic groups, or [...] Recorded Patient Health Questionnaire-2 Score 0 10/12/2023 [facility] [...] [facility] [place] [address] [facility] 110 [place] [address] Yossi Landers MD [address] [facility] 110 [place] [address] documented as of this encounter Visit Diagnoses Not on filedocumented in this encounter Care Teams Print Manager Relationship Specialty Start Date End Date Yossi Landers MD [address] [facility] 110 [place] [address] PCP - General Internal Medicine 11/03/22 Yossi Landers MD [address] [facility] 110 [place] [address] PCP - Humana 11/20/22 Seble Mejia RN [address] [place] [address] [facility] 07/29/24 09/09/24 Daniela Alvarado LPN 112 [place] [address] 09/09/24 documented as of this encounter
--- OUTSIDE RECORDS SUMMARY | 2025-02-19 19:26 | XMS_ITS | Encounter Summary ---
Author Organization [facility] Address [address] [facility] [place] [address] Care Team Providers Care Recruiter Name Role Phone Yossi Landers MD Primary Care Provider Yossi Landers MD Unavailable [phone] Seble Mejia RN Unavailable [phone] Daniela Alvarado LPN Unavailable Encounter Details Date Type Department Care Team (Late st Contact Info) Description 12/02/2022 Abstract [facility] [place] [facility] [address] [facility] [facility] 110 [place] [address] Yossi Landers MD 112 [facility] 110 [place], [place] [address] Social History Tobacco Use Types Packs/Day Years [...] 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 Not very hard 11/12/2022 [facility] of Occupat ional Health - Occupational Stress [...] Visit [facility] [place] [address] [facility] 110 [place] [address] Yossi Landers MD [address] [facility] 110 [place] [address] documented as of this encounter Visit Diagnoses Not on filedocumented in this encounter Care Teams Recruiter Relationship Specialty Start Date End Date Yossi Landers MD [address] [facility] 110 [place] [address] PCP - General Internal Medicine 11/03/22 Yossi Landers MD [address] [facility] 110 [place] [address] PCP - Humana 11/20/22 Seble Mejia RN [address] [place] [address] [facility] 07/29/24 09/09/24 Daniela Alvarado LPN 112 [place] [address] 09/09/24 documented as of this encounter
--- OUTSIDE RECORDS SUMMARY | 2025-02-19 19:26 | XMS_ITS | Encounter Summary ---
Author Organization [facility] Address [address] [place] [address] Care Team Providers Care Automatic Washer Mechanic Name Role Phone Yossi Landers MD Primary Care Provider [phone] Yossi Landers MD Unavailable Daniela Alvarado LPN Unavailable Encounter Details Date Type Department Care Team (Late st Contact Info) Description 01/19/2025 Abstract [facility] [place] [facility] [address] [facility] 110 [place] [address] Yossi Landers MD 112 [facility] 110 [place], [place] [address] Social History Tobacco Use Types Packs/Day Years [...] Recorded Patient Health Questionnaire-2 Score 2 01/16/2025 [facility] - Occupational [...] AM EDT Office Visit [facility] [place] [facility] [address] [facility] 110 [place] [address] Yossi Landers MD [address] [facility] 110 [place], [place] [address] documented as of this encounter Visit Diagnoses Not on filedocumented in this encounter Care Teams Automatic Washer Mechanic Relationship Specialty Start Date End Date Yossi Landers MD [address] [place] [address] PCP - General Internal Medicine 11/03/22 Yossi Landers MD [address] [facility] 110 [place] [address] PCP - Humana 11/20/22 Daniela Alvarado LPN [address] [address] 09/09/24 documented as of this encounter
--- OUTSIDE RECORDS SUMMARY | 2025-02-19 19:26 | XMS_ITS | Encounter Summary ---
Author Organization [facility] Address [address] [place] [address] Care Team Providers Care Physical Security Engineer Name Role Phone Yossi Landers MD Primary Care Provider [phone] Yossi Landers MD Unavailable [phone] Daniela Alvarado LPN Unavailable Encounter Details Date Type Department Care Team (Late st Contact Info) Description 01/19/2025 Abstract [facility] [place] [facility] [address] [facility] 110 [place] [address] Yossi Landers MD 112 [facility] 110 [place], [place] [address] Social History Tobacco Use Types Packs/Day Years [...] How often do you attend chur or cheondoism services? Never 11/12/2022 Do you [...] Recorded Patient Health Questionnaire-2 Score 2 01/16/2025 [facility] - Occupational Stress Questionnaire [...] AM EDT Office Visit [facility] [place] [facility] [address] [facility] 110 [place] [address] Yossi Landers MD [address] [facility] 110 [place], [place] [address] documented as of this encounter Visit Diagnoses Not on filedocumented in this encounter Care Teams Physical Security Engineer Relationship Specialty Start Date End Date Yossi Landers MD [address] [place] [address] PCP - General Internal Medicine 11/03/22 Yossi Landers MD [address] [facility] 110 [place] [address] PCP - Humana 11/20/22 Daniela Alvarado LPN [address] [address] 09/09/24 documented as of this encounter
--- OUTSIDE RECORDS SUMMARY | 2025-02-19 19:26 | XMS_ITS ---
Author Organization [facility] Address [address] [place] [address] Care Team Providers Care Redevelopment Manager Name Role Phone Yossi Landers MD Primary Care Provider [phone] Yossi Landers MD Unavailable [phone] Daniela Alvarado LPN Unavailable Chronic Care Management (CCM) Status:Enrolled (Active) Start date:06/22/2016 Enrollment date:06/22/2016 Overview 08/07/23, 2:30 PM - ThursdayDORINDA- Patient gives verbal consent to be enrolled in CCM Program and understands there could be a bill for this service. Case Team Name Relationship Phone Daniela Alvarado LPN(Responsible Staff) [phone] Continued Care and Services Coordination
--- OUTSIDE RECORDS SUMMARY | 2025-02-19 19:26 | XMS_ITS | Encounter Summary ---
Author Organization [facility] Address [address] [place] [address] Care Team Providers Care Bush And Vine Fruit Crop Farmer Name Role Phone Yossi Landers MD Primary Care Provider Yossi Landers MD Unavailable [phone] Daniela Alvarado LPN Unavailable Encounter Details Date Type Department Care Team (Late st Contact Info) Description 01/19/2025 Abstract [facility] [place] [facility] [address] [facility] 110 [place] [address] Yossi Landers MD 112 [facility] 110 [place], [place] [address] Social History Tobacco Use Types Packs/Day Years [...] Recorded Patient Health Questionnaire-2 Score 2 01/16/2025 [facility] - Occupational [...] AM EDT Office Visit [facility] [place] [facility] [address] [facility] 110 [place] [address] Yossi Landers MD [address] [facility] 110 [place], [place] [address] documented as of this encounter Visit Diagnoses Not on filedocumented in this encounter Care Teams Bush And Vine Fruit Crop Farmer Relationship Specialty Start Date End Date Yossi Landers MD [address] [place] [address] PCP - General Internal Medicine 11/03/22 Yossi Landers MD [address] [facility] 110 [place] [address] PCP - Humana 11/20/22 Daniela Alvarado LPN [address] [address] 09/09/24 documented as of this encounter
--- OUTSIDE RECORDS SUMMARY | 2025-02-19 19:26 | XMS_ITS | Encounter Summary ---
Author Organization [facility] Address [address] [facility] [place] [address] Care Team Providers Care Scientific Informatics Project Leader Name Role Phone Yossi Landers MD Primary Care Provider [phone] Yossi Landers MD Unavailable [phone] Seble Mejia RN Unavailable Daniela Alvarado LPN Unavailable Encounter Details Date Type Department Care Team (Late st Contact Info) Description 12/02/2022 Abstract [facility] [place] [facility] 112 [facility] 110 [place] [address] Yossi Landers MD 112 [facility] 110 [place], [place] [address] Social History Tobacco Use Types Packs/Day Years [...] often do you attend chur ch or sikhism services? Never 11/12/2022 Do you belong to [...] 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 Not very hard 11/12/2022 [facility] of Occupat ional Health - [...] Visit [facility] [place] [address] [facility] 110 [place] [address] Yossi Landers MD [address] [facility] 110 [place] [address] documented as of this encounter Visit Diagnoses Not on filedocumented in this encounter Care Teams Scientific Informatics Project Leader Relationship Specialty Start Date End Date Yossi Landers MD [address] [facility] 110 [place] [address] PCP - General Internal Medicine 11/03/22 Yossi Landers MD [address] [facility] 110 [place] [address] PCP - Humana 11/20/22 Seble Mejia RN [address] [place] [address] Clinical [facility] 07/29/24 09/09/24 Daniela Alvarado LPN 112 [place] [address] 09/09/24 documented as of this encounter
--- OUTSIDE RECORDS SUMMARY | 2025-02-19 19:26 | XMS_ITS | Encounter Summary ---
Author Organization [facility] Address [address] [facility] [place] [address] Care Team Providers Care Retail Link Analyst Name Role Phone Yossi Landers MD Primary Care Provider oYssi Landers MD Unavailable [phone] Sebel Mejia RN Unavailable Daniela Alvarado LPN Unavailable Encounter Details Date Type Department Care Team (Late st Contact Info) Description 12/02/2022 Abstract [facility] [place] [facility] 112 [facility] 110 [place] [address] Yossi Landers MD 112 [facility] 110 [place], [place] [address] Social History Tobacco Use Types Packs/Day Years [...] No 11/12/2022 Housing Stability Vital Sign Answer Barvo e Recorded In the last 12 months, [...] Visit [facility] [place] [address] [facility] 110 [place] [address] Yossi Landers MD [address] [facility] 110 [place] [address] documented as of this encounter Visit Diagnoses Not on filedocumented in this encounter Care Teams Retail Link Analyst Relationship Specialty Start Date End Date Yossi Landers MD [address] [facility] 110 [place] [address] PCP - General Internal Medicine 11/03/22 Yossi Landers MD [address] [facility] 110 [place] [address] PCP - Humana 11/20/22 Seble Mejia RN [address] [place] [address] [facility] 07/29/24 09/09/24 Dainela Alvarado LPN 112 [place] [address] 09/09/24 documented as of this encounter
--- OUTSIDE RECORDS SUMMARY | 2025-02-19 19:26 | XMS_ITS | Encounter Summary ---
Author Organization [facility] Address [address] [facility] [place] [address] Care Team Providers Care Wet Silk Hanger Name Role Phone Yossi Landers MD Primary Care Provider Yossi Landers MD Unavailable [phone] Seble Mejia RN Unavailable Daniela Alvarado LPN Unavailable Encounter Details Date Type Department Care Team (Late st Contact Info) Description 11/03/2023 Abstract [facility] [place] [facility] 112 [facility] 110 [place] [address] Yossi Landers MD 112 [facility] 110 [place], [place] [address] Social History Tobacco Use Types Packs/Day Years [...] Recorded Patient Health Questionnaire-2 Score 0 10/12/2023 [facility] Health - Occupational [...] [address] [facility] 110 [place] [address] Yossi Landers MD [address] [facility] 110 [place] [address] documented as of this encounter Visit Diagnoses Not on filedocumented in this encounter Care Teams Wet Silk Hanger Relationship Specialty Start Date End Date Yossi Landers MD [address] [facility] 110 [place] [address] PCP - General Internal Medicine 11/03/22 Yossi Landers MD [address] [facility] 110 [place] [address] PCP - Humana 11/20/22 Seble Mjeia RN [address] [place] [address] Clinical [facility] 07/29/24 09/09/24 Daniela Alvarado LPN 112 [place] [address] 09/09/24 documented as of this encounter
--- OUTSIDE RECORDS SUMMARY | 2025-02-19 19:26 | XMS_ITS | Encounter Summary ---
Author Organization [facility] Address [address] [place] [address] Care Team Providers Care Cable Splicer Assistant Name Role Phone Yossi Landers MD Primary Care Provider [phone] Yossi Landers MD Unavailable [phone] Daniela Alvarado LPN Unavailable Encounter Details Date Type Department Care Team (Late st Contact Info) Description 01/19/2025 Abstract [facility] [place] [facility] [address] [facility] 110 [place] [address] Yossi Landers MD 112 [facility] 110 [place], [place] [address] Social History Tobacco Use Types Packs/Day Years [...] How often do you attend chur or zoroastrian services? Never 11/12/2022 Do you [...] Recorded Patient Health Questionnaire-2 Score 2 01/16/2025 [facility] - Occupational Stress Questionnaire [...] AM EDT Office Visit [facility] [place] [facility] [address] [facility] 110 [place] [address] Yossi Landers MD [address] [facility] 110 [place], [place] [address] documented as of this encounter Visit Diagnoses Not on filedocumented in this encounter Care Teams Cable Splicer Assistant Relationship Specialty Start Date End Date Yossi Landers MD [address] [place] [address] PCP - General Internal Medicine 11/03/22 Yossi Landers MD [address] [facility] 110 [place] [address] PCP - Humana 11/20/22 Daniela Alvarado LPN [address] [address] 09/09/24 documented as of this encounter
--- OUTSIDE RECORDS SUMMARY | 2025-02-19 19:26 | XMS_ITS | Encounter Summary ---
Author Organization [facility] Address [address] [place] [address] Care Team Providers Care Braided Band Assembler Name Role Phone Yossi Landers MD Primary Care Provider [phone] Yossi Landers MD Unavailable [phone] Daniela Alvarado LPN Unavailable Encounter Details Date Type Department Care Team (Late st Contact Info) Description 09/22/2024 Abstract [facility] [place] [facility] [address] [facility] 110 [place] [address] Yossi Landers MD 112 [facility] 110 [place], [place] [address] Social History Tobacco Use Types Packs/Day Years [...] How often do you attend chur or taoist services? Never 11/12/2022 Do you [...] Recorded Patient Health Questionnaire-2 Score 2 09/15/2024 [facility] of Occupat ional Health - [...] AM EDT Office Visit [facility] [place] [facility] [address] [facility] 110 [place] [address] Yossi Landers MD [address] [facility] 110 [place], [place] [address] documented as of this encounter Visit Diagnoses Not on filedocumented in this encounter Care Teams Braided Band Assembler Relationship Specialty Start Date End Date Yossi Landers MD [address] [place] [address] PCP - General Internal Medicine 11/03/22 Yossi Landers MD [address] [facility] 110 [place] [address] PCP - Humana 11/20/22 Daniela Alvarado LPN [address] [address] 09/09/24 documented as of this encounter
--- OUTSIDE RECORDS SUMMARY | 2025-02-19 19:26 | XMS_ITS | Encounter Summary ---
Author Organization [facility] Address [address] [place] [address] Care Team Providers Care Media Center Director School Name Role Phone Yossi Landers MD Primary Care Provider [phone] Yossi Landers MD Unavailable [phone] Daniela Alvarado LPN Unavailable Encounter Details Date Type Department Care Team (Late st Contact Info) Description 01/26/2025 Abstract [facility] [place] [facility] [address] [facility] 110 [place] [address] Yossi Landers MD 112 [facility] 110 [place], [place] [address] Social History Tobacco Use Types Packs/Day Years [...] Recorded Patient Health Questionnaire-2 Score 0 01/30/2025 [facility] of Occupat ional Health - Occupational [...] AM EDT Office Visit [facility] [place] [facility] [address] [facility] 110 [place] [address] Yossi Landers MD [address] [facility] 110 [place], [place] [address] documented as of this encounter Visit Diagnoses Not on filedocumented in this encounter Care Teams Media Center Director School Relationship Specialty Start Date End Date Yossi Landers MD [address] [place] [address] PCP - General Internal Medicine 11/03/22 Yossi Landers MD [address] [facility] 110 [place] [address] PCP - Humana 11/20/22 Daniela Alvarado LPN [address] [address] 09/09/24 documented as of this encounter
--- OUTSIDE RECORDS SUMMARY | 2025-02-19 19:26 | XMS_ITS | Encounter Summary ---
Author Organization [facility] Address [address] [place] [address] Care Team Providers Care Account Receivable Clerk Name Role Phone Yossi Landers MD Primary Care Provider [phone] Yossi Landers MD Unavailable [phone] Daniela Alvarado LPN Unavailable Encounter Details Date Type Department Care Team (Late st Contact Info) Description 01/31/2025 Abstract [facility] [place] [facility] [address] [facility] 110 [place] [address] Yossi Landers MD 112 [facility] 110 [place], [place] [address] Social History Tobacco Use Types Packs/Day Years [...] Recorded Patient Health Questionnaire-2 Score 0 01/30/2025 [facility] [place] of Occupat ional Health - Occupational Stress [...] [facility] [address] [facility] 110 [place] [address] Yossi Landers MD [address] [facility] 110 [place], [place] [address] documented as of this encounter Visit Diagnoses Not on filedocumented in this encounter Care Teams Account Receivable Clerk Relationship Specialty Start Date End Date Yossi Landers MD [address] [place] [address] PCP - General Internal Medicine 11/03/22 Yossi Landers MD [address] [facility] 110 [place] [address] PCP - Humana 11/20/22 Daniela Alvarado LPN [address] [address] 09/09/24 documented as of this encounter
--- OUTSIDE RECORDS SUMMARY | 2025-02-19 19:26 | XMS_ITS | Encounter Summary ---
Author Organization [facility] Address [address] [place] [address] Care Team Providers Care Bottle Feeder Name Role Phone Yossi Landers MD Primary Care Provider [phone] Yossi Landers MD Unavailable [phone] Daniela Alvarado LPN Unavailable Encounter Details Date Type Department Care Team (Late st Contact Info) Description 01/23/2025 Abstract [facility] [address] [place] [address] Daniela Alvarado LPN [address] [facility] 110 [place] [address] Social History Tobacco Use Types Packs/Day Years [...] How often do you attend chur or mu-ism services? Never 11/12/2022 Do you [...] Recorded Patient Health Questionnaire-2 Score 2 01/16/2025 [facility] Occupat ional Health - [...] AM EDT Office Visit [facility] [place] [facility] [address] [facility] [address] [place] [address] Yossi Landers MD [address] [place] [address] documented as of this encounter Visit Diagnoses Not on filedocumented in this encounter Care Teams Bottle Feeder Relationship Specialty Start Date End Date Yossi Landers MD [address] [place] [address] PCP - General Internal Medicine 11/03/22 Yossi Landers MD [address] [facility] 110 [place] [address] PCP - [employer] 11/20/22 Daniela Alvarado LPN [address] [address] 09/09/24 documented as of this encounter
--- OUTSIDE RECORDS SUMMARY | 2025-02-19 19:26 | XMS_ITS | Encounter Summary ---
Author Organization [facility] Address [address] [facility] [place] [address] Care Team Providers Care Coach Name Role Phone Yossi Landers MD Primary Care Provider Yossi Landers MD Unavailable [phone] Daniela Alvarado LPN Unavailable Encounter Details Date Type Department Care Team (Late st Contact Info) Description 10/24/2024 Abstract [facility] [place] [facility] 112 [facility] 110 [place] [phone] Yossi Landers MD [address] [facility] 110 [place], [place] [address] Social History Tobacco Use Types Packs/Day Years [...] Recorded Patient Health Questionnaire-2 Score 0 10/07/2024 [facility] of Occupat ional Health - Occupational Stress [...] Pressley [facility] [address] [facility] 110 [place] [address] Yossi Landers MD [address] [facility] 110 [place], [place] [address] documented as of this encounter Visit Diagnoses Not on filedocumented in this encounter Care Teams Coach Relationship Specialty Start Date End Date Yossi Landers MD [address] [place] [address] PCP - General Internal Medicine 11/03/22 Yossi Landers MD [address] [facility] 110 [place] [address] PCP - [employer] 11/20/22 Daniela Alvarado LPN [address] [address] 09/09/24 documented as of this encounter
--- OUTSIDE RECORDS SUMMARY | 2025-02-19 19:26 | XMS_ITS | Encounter Summary ---
Author Organization [facility] Address [address] [place] [address] Phone Care Team Providers Care Completion Supervisor Name Role Phone Unavailable Primary Care Provider Unavailabl e Encounter Details Date Type Department Care Team (Late st Contact Info) Description 04/04/2020 Orders Only [facility] [address] [place] [address] Conversion, Onbase Social History Tobacco Use Types [...]
--- OUTSIDE RECORDS SUMMARY | 2025-02-19 19:26 | XMS_ITS | Encounter Summary ---
Author Organization [facility] Address [address] [place] [address] Care Team Providers Care Bale Sewer Name Role Phone Yossi Landers MD Primary Care Provider [phone] Yossi Landers MD Unavailable [phone] Daniela Alvarado LPN Unavailable Encounter Details Date Type Department Care Team (Late st Contact Info) Description 01/19/2025 Abstract [facility] [place] [facility] [address] [facility] 110 [place] [address] Yossi Landers MD 112 [facility] 110 [place], [place] [address] Social History Tobacco Use Types Packs/Day Years [...] Recorded Patient Health Questionnaire-2 Score 2 01/16/2025 [facility] - [...] 02/23/2025 11:15 AM EDT Office Visit [facility] [place] [facility] [address] [facility] 110 [place] [address] Yossi Landers MD [address] [facility] 110 [place], [place] [address] documented as of this encounter Visit Diagnoses Not on filedocumented in this encounter Care Teams Bale Sewer Relationship Specialty Start Date End Date Yossi Landers MD [address] [place] [address] PCP - General Internal Medicine 11/03/22 Yossi Landers MD [address] [facility] 110 [place] [address] PCP - [employer] 11/20/22 Daniela Alvarado LPN [address] [address] 09/09/24 documented as of this encounter
--- OUTSIDE RECORDS SUMMARY | 2025-02-19 19:26 | XMS_ITS | Encounter Summary ---
Author Organization [facility] Address [address] [facility] [place] [address] Care Team Providers Care Farmworker Pullet Farm Name Role Phone Yossi Landers MD Primary Care Provider Yossi Landers MD Unavailable [phone] Seble Mejia RN Unavailable Daniela Alvarado LPN Unavailable Encounter Details Date Type Department Care Team (Late st Contact Info) Description 11/27/2022 Abstract [facility] [place] [facility] 112 [facility] 110 [place] [address] Yossi Landers MD 112 [facility] 110 [place], [place] [address] Social History Tobacco Use Types Packs/Day Years [...] 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 Not very hard 11/12/2022 [facility] of Occupat ional Health - [...] Visit [facility] [place] [address] [facility] 110 [place] [address] Yossi Landers MD [address] [facility] 110 [place] [address] documented as of this encounter Visit Diagnoses Not on filedocumented in this encounter Care Teams Farmworker Pullet Farm Relationship Specialty Start Date End Date Yossi Landers MD [address] [facility] 110 [place] [address] PCP - General Internal Medicine 11/03/22 Yossi Landers MD [address] [facility] 110 [place] [address] PCP - [employer] 11/20/22 Seble Mejia RN [address] [place] [address] [facility] 07/29/24 09/09/24 Daniela Alvarado LPN 112 [place] [address] 09/09/24 documented as of this encounter
--- OUTSIDE RECORDS SUMMARY | 2025-02-19 19:27 | XMS_ITS | Encounter Summary ---
Author Organization [facility] Address [address] [place] [address] Care Team Providers Care Hat Blocking Machine Operator Name Role Phone Yossi Landers MD Primary Care Provider [phone] Yossi Landers MD Unavailable [phone] Daniela Alvarado LPN Unavailable Encounter Details Date Type Department Care Team (Late st Contact Info) Description 02/15/2025 Patient Outreach [facility] [address] [place] [address] Daniela Alvarado LPN [address] [facility] 110 [place] [address] Social History Tobacco Use Types Packs/Day Years [...] Recorded Patient Health Questionnaire-2 Score 0 01/30/2025 [facility] [place] of Occupat ional Health - Occupational Stress [...] Progress Notes * Daniela Alvarado LPN - 02/15/2025 2:37 PM EDT Pt daughter Moni calls for clarification on when to and what labs pt needs to get. I let her know the labs and that pt will need to fast for these. I tell her that PCP would like these a week after starting torsemide increase which started on 02/13. Moni voices understanding and thanks technical writer. documented in this encounter Plan of Treatment Upcoming Encounters Date Type Department Care Team (Late st Contact Info) Description 02/23/2025 11:15 AM EDT Office Visit [facility] [place] [address] [facility] 110 [place] [address] Yossi Landers MD [address] [facility] 110 [place] [address] documented as of this encounter Visit Diagnoses Diagnosis Type 2 diabetes mellitus with diabetic neuropathy, without long-term current use of insulin (HCC)- Primary Chronic combined systolic and diastolic congestive heart failure (HCC) documented in this encounter Care Teams Hat Blocking Machine Operator Relationship Specialty Start Date End Date Yossi Landers MD [address] [facility] [address] [place] [address] PCP - General Internal Medicine 11/03/22 Yossi Landers MD [address] [facility] 110 [place] [address] PCP - [employer] 11/20/22 Daniela Alvarado LPN [address] [facility] 110 [place] [address] 09/09/24 documented as of this encounter
--- OUTSIDE RECORDS SUMMARY | 2025-02-19 19:27 | XMS_ITS | Encounter Summary ---
Author Organization [facility] Address [address] [place] [address] Care Team Providers Care Border Guard Name Role Phone Yossi Landers MD Primary Care Provider [phone] Yossi Landers MD Unavailable [phone] Daniela Alvarado LPN Unavailable Encounter Details Date Type Department Care Team (Late st Contact Info) Description 01/19/2025 Abstract [facility] [place] [facility] [address] [facility] 110 [place] [phone] Yossi Landers MD 112 [facility] 110 [place], [place] [address] Social History Tobacco Use Types Packs/Day Years [...] Recorded Patient Health Questionnaire-2 Score 2 01/16/2025 [facility] [...] [facility] [address] [facility] 110 [place] [address] Yossi Landers MD [address] [facility] 110 [place], [place] [address] documented as of this encounter Visit Diagnoses Not on filedocumented in this encounter Care Teams Border Guard Relationship Specialty Start Date End Date Yossi Landers MD [address] [place] [address] PCP - General Internal Medicine 11/03/22 Yossi Landers MD [address] [facility] 110 [place] [address] PCP - [employer] 11/20/22 Daniela Alvarado LPN [address] [address] 09/09/24 documented as of this encounter
--- OUTSIDE RECORDS SUMMARY | 2025-02-19 19:27 | XMS_ITS | Encounter Summary ---
Author Organization [facility] Address [address] [place] [address] Care Team Providers Care Annealer Helper Name Role Phone Yossi Landers MD Primary Care Provider [phone] Yossi Landers MD Unavailable [phone] Daniela Alvarado LPN Unavailable Encounter Details Date Type Department Care Team (Late st Contact Info) Description 02/14/2025 Abstract [facility] [place] [facility] 112 [address] [facility] 110 [place] [address] Yossi Landers MD 112 [facility] 110 [place], [place] [address] Social History Tobacco Use Types Packs/Day Years [...] How often do you attend chur or rastafari services? Never 11/12/2022 Do you [...] Recorded Patient Health Questionnaire-2 Score 0 01/30/2025 [facility] [place] of Occupat ional Health - Occupational Stress [...] AM EDT Office Visit [facility] [place] [facility] [facility] [address] [facility] 110 [place] [address] Yossi Landers MD [address] [facility] 110 [place], [place] [address] documented as of this encounter Visit Diagnoses Not on filedocumented in this encounter Care Teams Annealer Helper Relationship Specialty Start Date End Date Yossi Landers MD [address] [place] [address] PCP - General Internal Medicine 11/03/22 Yossi Landers MD [address] [facility] 110 [place] [address] PCP - [employer] 11/20/22 Daniela Alvarado LPN [address] [address] 09/09/24 documented as of this encounter
--- OUTSIDE RECORDS SUMMARY | 2025-02-19 19:27 | XMS_ITS | Encounter Summary ---
Author Organization [facility] Address [address] [place] [address] Care Team Providers Care Rapid Transit Operator Name Role Phone Yossi Landers MD Primary Care Provider [phone] Yossi Landers MD Unavailable [phone] Daniela Alvarado LPN Unavailable Encounter Details Date Type Department Care Team (Late st Contact Info) Description 02/09/2025 Telephone [facility] [place] [facility] [address] [facility] 110 [place] [address] Yossi Landers MD 112 [facility] 110 [place], [place] [address] Social History Tobacco Use Types Packs/Day Years [...] Recorded Patient Health Questionnaire-2 Score 0 01/30/2025 [facility] [place] of Occupat ional Health - Occupational [...] Progress Notes * Daniela Alvarado LPN - 02/09/2025 4:13 PM EDT Updated pts daughter * Daniela Alvarado LPN - 02/09/2025 12:12 PM EDT Pt daughter calls wanting to know if Ibuprofen ok for pt to take for back pain and headache. I let her know I will ask PCP if this is ok. documented in this encounter Miscellaneous Notes * Telephone Encounter - PHILIP Magallanes - 02/09/2025 4:09 PM EDT Patient has a h/o significant reaction to Aleve, I do not recommend she take Ibuprofen. I would rather she try Tylenol instead * Telephone Encounter - Seble Lieberman MA - 02/09/2025 10:36 AM EDT I am calling for Danyell Solis. 11 642, my numbers [phone]. She was wanting to know if she could take some I profs. She had a headache in her back. Daniel, thank you, nice. Ibuprofen documented in this encounter Plan of Treatment Upcoming Encounters Date Type Department Care Team (Late st Contact Info) Description 02/23/2025 11:15 AM EDT Office Visit [facility] [place] [address] [facility] 110 [place] [address] Yossi Landers MD [address] [facility] 110 [place] [address] documented as of this encounter Visit Diagnoses Diagnosis Chronic combined systolic and diastolic congestive heart failure (HCC) Gastroesophageal reflux disease, unspecified whether esophagitis present documented in this encounter Care Teams Rapid Transit Operator Relationship Specialty Start Date End Date Yossi Landers MD [address] [facility] 110 [place] [address] PCP - General Internal Medicine 11/03/22 Yossi Landers MD [address] [place] [address] PCP - [employer] 11/20/22 Daniela Alvarado LPN [address] [place] [address] 09/09/24 documented as of this encounter
--- OUTSIDE RECORDS SUMMARY | 2025-02-19 19:27 | XMS_ITS | Encounter Summary ---
Author Organization [facility] Address [address] [place] [address] Care Team Providers Care Tile Mason Name Role Phone Yossi Landers MD Primary Care Provider [phone] Yossi Landers MD Unavailable [phone] Daniela Alvarado LPN Unavailable Encounter Details Date Type Department Care Team (Late st Contact Info) Description 01/19/2025 Abstract [facility] [place] [facility] [address] [facility] 110 [place] [address] Yossi Landers MD 112 [facility] 110 [place], [place] [address] Social History Tobacco Use Types Packs/Day Years [...] How often do you attend chur or episcopal services? Never 11/12/2022 Do you [...] Recorded Patient Health Questionnaire-2 Score 2 01/16/2025 [facility] [...] AM EDT Office Visit [facility] [place] [facility] [facility] [address] [facility] 110 [place] [address] Yossi Landers MD [address] [facility] 110 [place], [place] [address] documented as of this encounter Visit Diagnoses Not on filedocumented in this encounter Care Teams Tile Mason Relationship Specialty Start Date End Date Yossi Landers MD [address] [place] [address] PCP - General Internal Medicine 11/03/22 Yossi Landers MD [address] [facility] 110 [place] [address] PCP - [employer] 11/20/22 Daniela Alvarado LPN [address] [address] 09/09/24 documented as of this encounter
--- OUTSIDE RECORDS SUMMARY | 2025-02-19 19:27 | XMS_ITS | Encounter Summary ---
Author Organization [facility] Address [address] [place] [address] Care Team Providers Care Seed Mill Superintendent Name Role Phone Yossi Landers MD Primary Care Provider [phone] Yossi Landers MD Unavailable [phone] Daniela Alvarado LPN Unavailable Encounter Details Date Type Department Care Team (Late st Contact Info) Description 02/13/2025 Patient Outreach [facility]ULATION [facility]ALTH [address] [place] [address] Daniela Alvarado LPN [address] [facility] 110 [place] [address] Social History Tobacco Use Types Packs/Day Years [...] Questionnaire-2 Score 0 01/30/2025 [facility] [place] of Occupat ional Health - Occupational Stress [...] Progress Notes * Daniela Alvarado LPN - 02/13/2025 9:27 AM EDT Spoke with pts daughter in law Moni for monitoring. She states pt has gained 5 pounds since 02/08. She states about a pound a day. I ask if pt has had more SOB. She states she always has SOB and hasn't noticed a change. I ask if pts legs/feet seem more swollen. Moni states yes she thinks so. Pt currently take 15mg torsemide daily. Element Setter will update PCP and give pt any instructions that follow. Flowsheet Row Patient Outreach from 02/13/[address] [facility] with Daniela Alvarado, RESIDENTIAL TREATMENT SPECIALIST Week Number Call Week 3 Call Was patient contacted successfully? Yes Have you had any urgent care/ED/Hospital visits since discharge? No Any medication changes since last contact? No Is the patient taking all medications as directed? Yes Have you visited your PCP since discharge? Yes Have you visited your specialist since discharge? No Does patient have home health? yes What is the home health agency? [facility]. Nursing not coming anymore. Thinks PT still is. Has home health visited the patient within 72 hours of discharge? Yes What is the patient's perception of their health status since discharge? Same Is the patient/caregiver able to teach back the hierarchy of who to call/visit for symptoms/problems? PCP, Specialist, Home Health nurse, Urgent Care, ED, 911 Yes * PHILIP Magallanes - 02/13/2025 9:27 AM EDT Have her increase the Torsemide to 20 mg daily. Needs to complete the labs that Dr. Landers previously ordered for her. Would recommend she do this one week after starting the Torsemide to make sure her potassium is not low with being on the diuretic. She will need to be fasting for the labs. * Daniela Alvarado LPN - 02/13/2025 9:27 AM EDT Call to pts daughter in law Moni to update. No answer, detailed message left with instructions to call if she has any questions. documented in this encounter Plan of Treatment Upcoming Encounters Date Type Department Care Team (Late st Contact Info) Description 02/23/2025 11:15 AM EDT Office Visit [facility] [place] 112 [facility] 110 [place] [address] Yossi Landers MD 112 [facility] [address] [place] [address] documented as of this encounter Visit Diagnoses Diagnosis Chronic combined systolic and diastolic congestive heart failure (HCC)- Primary Type 2 diabetes mellitus with diabetic neuropathy, without long-term current use of insulin (HCC) documented in this encounter Care Teams Seed Mill Superintendent Relationship Specialty Start Date End Date Yossi Landers MD [address] [facility] 110 [place] [address] PCP - General Internal Medicine 11/03/22 Yossi Landers MD [address] [facility] 110 [place] [address] PCP - [employer] 11/20/22 Daniela Alvarado LPN [address] [address] 09/09/24 documented as of this encounter
--- OUTSIDE RECORDS SUMMARY | 2025-02-19 19:27 | XMS_ITS | Encounter Summary ---
Author Organization [facility] Address [address] [place] [address] Care Team Providers Care Head Boys Golf Coach Name Role Phone Yossi Landers MD Primary Care Provider [phone] Yossi Landers MD Unavailable [phone] Daniela Alvarado LPN Unavailable Encounter Details Date Type Department Care Team (Late st Contact Info) Description 02/07/2025 Patient Outreach [facility] POPULATION HEALTH [address] [place] [address] Daniela Alvarado LPN [address] [facility] 110 [place] [address] Social History Tobacco Use Types Packs/Day Years [...] Recorded Patient Health Questionnaire-2 Score 0 01/30/2025 [facility] [place] of Occupat ional Health - Occupational Stress [...] Progress Notes * Daniela Alvarado LPN - 02/07/2025 9:36 AM EDT No return call from pt. Flowsheet Row Patient Outreach from 02/07/2025 in [facility] POPULATION HEALTH with Daniela Alvarado LPN Week Number Call Week 2 Call Was patient contacted successfully? No Were two attempts made? Yes Have you visited your PCP since discharge? Yes Does patient have home health? yes What is the home health agency? [facility] documented in this encounter Plan of Treatment Upcoming Encounters Date Type Department Care Team (Late st Contact Info) Description 02/23/2025 11:15 AM EDT Office Visit [facility] [place] [address] [facility] 110 [place] [address] Yossi Landers MD [address] [facility] 110 [place] [address] documented as of this encounter Visit Diagnoses Diagnosis Type 2 diabetes mellitus with diabetic neuropathy, without long-term current use of insulin (HCC)- Primary Chronic combined systolic and diastolic congestive heart failure (HCC) documented in this encounter Care Teams Head Boys Golf Coach Relationship Specialty Start Date End Date Yossi Landers MD [address] [facility] 110 [place] [address] PCP - General Internal Medicine 11/03/22 Yossi Landers MD [address] [facility] 110 [place] [address] PCP - [employer] 11/20/22 Daniela Alvarado LPN [address] [facility] [address] [place] [address] 09/09/24 documented as of this encounter
--- OUTSIDE RECORDS SUMMARY | 2025-02-19 19:27 | XMS_ITS | Encounter Summary ---
Author Organization [facility] Address [address] [place] [address] Care Team Providers Care Cylinder Machine Operator Pulp Drier Name Role Phone Yossi Landers MD Primary Care Provider [phone] Yossi Landers MD Unavailable [phone] Daniela Alvarado LPN Unavailable Encounter Details Date Type Department Care Team (Late st Contact Info) Description 01/23/2025 Abstract [facility] [place] [facility] [address] [facility] 110 [place] [id number] Yossi Landers MD 112 [facility] 110 [place], [place] [id number] Social History Tobacco Use Types Packs/Day Years [...] any clubs o r organizations such as sabianism groups, unions, fraternal or athletic groups, or [...] Recorded Patient Health Questionnaire-2 Score 2 01/16/2025 [facility] [address] [facility] [address] [place] [address] Yossi Landers MD [address] [facility] 110 [place], [place] [id number] documented as of this encounter Visit Diagnoses Not on filedocumented in this encounter Care Teams Cylinder Machine Operator Pulp Drier Relationship Specialty Start Date End Date Yossi Landers MD [address] [facility] [address] [place] [address] PCP - General Internal Medicine 11/03/22 Yossi Landers MD [address] [facility] 110 [place] [address] PCP - [employer] 11/20/22 Daniela Alvarado LPN [address] [address] 09/09/24 documented as of this encounter
--- OUTSIDE RECORDS SUMMARY | 2025-02-19 19:27 | XMS_ITS | Encounter Summary ---
Author Organization [facility] Address [address] [place] [address] Care Team Providers Care Principal Investigator Name Role Phone Yossi Landers MD Primary Care Provider [phone] Yossi Landers MD Unavailable [phone] Daniela Alvarado LPN Unavailable Encounter Details Date Type Department Care Team (Late st Contact Info) Description 01/31/2025 Abstract [facility] [place] [facility] [address] [facility] 110 [place] [phone] Yossi Landers MD 112 [facility] 110 [place], [place] [id number] Social History Tobacco Use Types Packs/Day Years [...] Recorded Patient Health Questionnaire-2 Score 0 01/30/2025 [facility] Occupat ional Health - Occupational Stress [...] AM EDT Office Visit [facility] [place] [facility] [address] [facility] 110 [place] [address] Yossi Landers MD [address] [facility] 110 [place], [place] [id number] documented as of this encounter Visit Diagnoses Not on filedocumented in this encounter Care Teams Principal Investigator Relationship Specialty Start Date End Date Yossi Landers MD [address] [place] [address] PCP - General Internal Medicine 11/03/22 Yossi Landers MD [address] [facility] 110 [place] [address] PCP - [employer] 11/20/22 Daniela Alvarado LPN [address] [address] 09/09/24 documented as of this encounter
--- OUTSIDE RECORDS SUMMARY | 2025-02-19 19:27 | XMS_ITS | Encounter Summary ---
Author Organization [facility] Address [address] [place] [address] Care Team Providers Care Recovery Agent Name Role Phone Yossi Simeon MD Primary Care Provider [phone] Yossi Simeon MD Unavailable [phone] Daniela Alvarado LPN Unavailable Reason for Visit * Reason Onset Date Comments Med Refill 02/06/2025 Encounter Details Date Type Department Care Team (Late st Contact Info) Description 02/06/2025 Refill [facility] [place] [facility] [address] [facility] 110 [place] [address] Salud Roach PA [address] [facility] 110 [place], [place] [phone] Depression with anxiety Social History Tobacco Use [...] Recorded Patient Health Questionnaire-2 Score 0 01/30/2025 [facility] ional Health - Occupational [...] encounter Miscellaneous Notes * Telephone Encounter - Rosaura Thompson MD - 02/07/2025 10:29 AM EDT PDMP reviewed Covering for Dr. simeon documented in this encounter Plan of Treatment Upcoming Encounters Date Type Department Care Team (Late st Contact Info) Description 02/23/2025 11:15 AM EDT Office Visit [facility] [place] [facility] [address] [place] [address] [place] [phone] Yossi Simeon MD [address] [facility] [address] [place] [address] documented as of this encounter Visit Diagnoses Diagnosis Depression with anxiety Dysthymic disorder documented in this encounter Care Teams Recovery Agent Relationship Specialty Start Date End Date Yossi Simeon MD [address] [facility] 110 [place] [address] PCP - General Internal Medicine 11/03/22 Yossi Simeon MD [address] [facility] 110 [place] [address] PCP - [employer] 11/20/22 Daniela Alvarado LPN [address] [facility] 110 [place] [address] 09/09/24 documented as of this encounter
--- OUTSIDE RECORDS SUMMARY | 2025-02-19 19:27 | XMS_ITS | Encounter Summary ---
Author Organization [facility] Address [address] [place] [address] Care Team Providers Care Tower Equipment Repairer Name Role Phone Yossi Landers MD Primary Care Provider [phone] Yossi Landers MD Unavailable [phone] Daniela Alvarado LPN Unavailable Encounter Details Date Type Department Care Team (Late st Contact Info) Description 01/23/2025 Abstract [facility] [place] [facility] [address] [facility] 110 [place] [phone] Yossi Landers MD 112 [facility] 110 [place], [place] [phone] Social History Tobacco Use Types Packs/Day Years [...] How often do you attend chur or evangelical services? Never 11/12/2022 Do you belong to [...] Recorded Patient Health Questionnaire-2 Score 2 01/16/2025 [facility] - Occupational Stress Questionnaire [...] AM EDT Office Visit [facility] [place] [facility] [address] [facility] [address] [place] [address] Yossi Landers MD [address] [facility] 110 [place], [place] [phone] documented as of this encounter Visit Diagnoses Not on filedocumented in this encounter Care Teams Tower Equipment Repairer Relationship Specialty Start Date End Date Ysosi Landers MD [address] [place] [address] PCP - General Internal Medicine 11/03/22 Yossi Landers MD [address] [facility] 110 [place] [address] PCP - [employer] 11/20/22 Daniela Alvarado LPN [address] [address] 09/09/24 documented as of this encounter
--- NOTE | 2025-02-19 19:38 | PC.NURSE ---
this patient of right side pain( 11/29) onset last night(02/18/2025) i sat up in bed and went sliding out of bed on to the floor. this patient denies hitting her head and no loc after this fall. this patient lives with her son and daughter in law, who is here in the er room with her now. this patient does use a walker to ambulate at home. this patient voices no other complaints and shows no signs of distress
--- NOTE | 2025-02-19 19:44 | ECG_ITS ---
[facility] Test Date: 2025-02-19 Pat Name: ELGIN NORWOOD Department: Room: - Gender: Female Catering Director: : 1940 Requested By: [id number] Order Number: [id number] Reading MD: LENIN JACOBSON Measurements Intervals [place] Rate: 86 P: 52 MI: 154 QRS: 49 QRSD: 94 T: 78 QT: 366 QTc: 409 Interpretive Statements 1100 Sinus rhythm 9110 normal ECG Compared to ECG 01/18/2025 07:35:04 No significant changes Electronically Signed On 02-22-2025 13:36:54 EDT by LENIN JACOBSON
--- NOTE | 2025-02-19 19:46 | ED.GENADUL1 ---
HPI HPI - General Adult General Chief complaint: Weakness Stated complaint: FALL Time Seen by Provider: 02/19/25 19:36 Source: patient and family Mode of arrival: Wheelchair Limitations: no limitations History of Present Illness HPI narrative: past history of CHF. States she sat on the side of the bed last PM and became dizzy. she then slid down to the floor and jammed her right arm into her chest. Family helped her up. She continues to complain of right chest wall pain and was brought in by family. She denies striking her head. No neck pain or hip pain has swelling of her lower extremities which per family is chronic Related Data Home Medications ?Medication ?Instructions ?Recorded ?Confirmed aspirin 81 mg chewable tablet 81 mg PO DAILY 08/02/23 02/19/25 (Dalton Chewable Low Dose Aspirin) duloxetine 60 mg capsule,delayed 60 mg PO DAILY 08/02/23 02/19/25 release gabapentin 100 mg capsule 200 mg PO Q12H 08/02/23 02/19/25 loratadine 10 mg tablet 10 mg PO DAILY 08/02/23 02/19/25 levothyroxine 100 mcg tablet 100 mcg PO .ACB 08/03/23 02/19/25 lisinopril 5 mg tablet 5 mg PO DAILY 08/13/24 02/19/25 famotidine 20 mg tablet 20 mg PO DAILY 09/30/24 02/19/25 atorvastatin 40 mg tablet 40 mg PO DAILY 01/09/25 02/19/25 memantine 10 mg tablet 10 mg PO BID 01/09/25 02/19/25 albuterol sulfate 2.5 mg/3 mL 2.5 mg inhalation Q8H PRN 01/18/25 02/19/25 (0.083 %) solution for nebulization shortness of breath or wheezing bupropion HCl 150 mg 24 hr tablet, 150 mg PO DAILY 01/18/25 02/19/25 extended release Previous Rx's ?Medication ?Instructions ?Recorded alprazolam 0.25 mg tablet 0.25 mg PO TID PRN anxiety #0 tabs 01/11/25 torsemide 10 mg tablet 15 mg (1.5 x 10 mg) PO DAILY #0 01/11/25 tabs polyethylene glycol 3350 17 gram 17 g PO BID #0 ea 01/21/25 oral powder packet Allergies Allergy/AdvReac Type Severity Reaction Status Date / Time rofecoxib (From Vioxx) Allergy Severe Unknown Verified 02/19/25 19:34 naproxen (From Aleve) Allergy Intermediate Unknown Verified 02/19/25 19:34 Opioid HPI Opioid Management Most Recent Opioid Data: Last Pain Scale 4 Today, 00:33 Last Pain Intensity 0 10/03/24, 13:22 Last ED Pain Assessment Today, 00:33 Last MAR Pain Assessment Today, 00:09 Last ORT Total Score 1 01/18/25, 12:09 Last ORT Risk Category Low Risk 01/18/25, 12:09 Review of Systems ROS Status of ROS 10 or more systems reviewed and unremarkable except as noted in history and below [facility] Medical History (Updated 02/20/25 @ 01:21 by Jose Garcia MD) Syncope and collapse ?R55 - Syncope and collapse (ICD-10) Pneumonia ?J18.9 - Pneumonia, unspecified organism (ICD-10) Nausea & vomiting ?R11.2 - Nausea with vomiting, unspecified (ICD-10) Constipation by delayed colonic transit ?K59.01 - Slow transit constipation (ICD-10) Generalized weakness ?R53.1 - Weakness (ICD-10) Pneumonia ?J18.9 - Pneumonia, unspecified organism (ICD-10) CAD (coronary artery disease) ?I25.10 - Atherosclerotic heart disease of [place] coronary artery without angina pectoris (ICD-10) Type 2 diabetes mellitus with hyperglycemia ?E11.65 - Type 2 diabetes mellitus with hyperglycemia (ICD-10) Degenerative lumbar spinal stenosis ?M48.061 - Spinal stenosis, lumbar region without neurogenic claudication (ICD-10) Chronic heart failure with preserved ejection fraction (HFpEF) ?I50.32 - Chronic diastolic (congestive) heart failure (ICD-10) HTN (hypertension) ?I10 - Essential (primary) hypertension (ICD-10) COPD (chronic obstructive pulmonary disease) ?J44.9 - Chronic obstructive pulmonary disease, unspecified (ICD-10) Primary osteoarthritis of right hip ?M16.11 - Unilateral primary osteoarthritis, right hip (ICD-10) Abdominal bloating ?R14.0 - Abdominal distension (gaseous) (ICD-10) Anxiety ?F41.9 - Anxiety disorder, unspecified (ICD-10) COPD exacerbation ?J44.1 - Chronic obstructive pulmonary disease with (acute) exacerbation (ICD-10) Acute costochondritis ?M94.0 - Chondrocostal junction syndrome [Tietze] (ICD-10) Fall ?W19.XXXA - Unspecified fall, initial encounter (ICD-10) Contusion of rib on right side ?S20.211A - Contusion of right front wall of thorax, initial encounter (ICD-10) Contusion of knee, left ?S80.02XA - Contusion of left knee, initial encounter (ICD-10) Constipation ?K59.00 - Constipation, unspecified (ICD-10) Chest wall pain ?R07.89 - Other chest pain (ICD-10) Abdominal pain ?R10.9 - Unspecified abdominal pain (ICD-10) No problem, feared complaint unfounded ?Z71.1 - Person with feared health complaint in whom no diagnosis is made (ICD-10) Grief reaction ?F43.21 - Adjustment disorder with depressed mood (ICD-10) Dehydration ?E86.0 - Dehydration (ICD-10) Head injury ?S09.90XA - Unspecified injury of head, initial encounter (ICD-10) COPD exacerbation ?J44.1 - Chronic obstructive pulmonary disease with (acute) exacerbation (ICD-10) Nausea ?R11.0 - Nausea (ICD-10) Hypothyroidism ?E03.9 - Hypothyroidism, unspecified (ICD-10) HLD (hyperlipidemia) ?E78.5 - Hyperlipidemia, unspecified (ICD-10) Insufficient home care support ?Z74.2 - Need for assistance at home and no other household member able to render care (ICD-10) Muscular deconditioning ?R29.898 - Other symptoms and signs involving the musculoskeletal system (ICD-10) CHF (congestive heart failure) ?I50.9 - Heart failure, unspecified (ICD-10) Surgical History H/O hysterectomy for benign disease ?Z90.710 - Acquired absence of both cervix and uterus (ICD-10) Previous back surgery ?Z98.890 - Other specified postprocedural states (ICD-10) H/O hernia repair ?Z98.890 - Other specified postprocedural states (ICD-10) ?Z87.19 - Personal history of other diseases of the digestive system (ICD-10) Family History Mother Family history of cancer Sister Family history of diabetes mellitus Social History Within the past year, how often did you have a drink containing alcohol: never Score interpretation: A score less than 3 is consistent with normal alcohol consumption. 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 Known occupational exposures/hazards: No Highest level of school completed/degree received: 7th grade In a typical week, how many times do you talk on the telephone with family, friends, or neighbors: twice per week How often do you get together with friends or relatives: twice per week How often do you attend jainism or church services: never Little interest or pleasure in doing things: not at all Feeling down, depressed, or hopeless: not at all Feel stressed/tense/nervous/anxious/difficulty sleeping: not at all Exam Constitutional Vital Signs, click to edit/add: Last Vital Signs Temp 98.4 F 02/19/25 19:22 Pulse 84 02/20/25 01:10 Resp 21 H 02/20/25 01:10 BP 112/56 02/20/25 01:00 Pulse Ox 94 L 02/20/25 01:10 O2 Del Method Room Air 02/19/25 19:22 Common normals: no apparent distress, average body habitus, oriented x3, no limitations, alert and well nourished [facility] Common normals: normocephalic and head/scalp atraumatic Eye Common normals: EOMs intact bilaterally and conjunctivae normal Chest Other: right chest wall tenderness. no crepitus Respiratory Common normals: normal respiratory effort, no retractions, no use of accessory muscles and clear to auscultation bilaterally Cardio Common normals: regular rate, regular rhythm, S1 normal heart sound and S2 normal heart sound GI Common normals: Normal to inspection, nondistended, normoactive bowel sounds present, soft to palpation and non-tender Extremity Common normals: normal to inspection and full ROM Neuro Common normals: oriented x3, CN's II-XII intact bilaterally, moves all extremities and no focal motor deficits Psych Appearance: grossly normal Course Vital Signs Vital signs: Vital Signs Temperature 98.4 F 02/19/25 19:22 Pulse Rate 95 H 02/19/25 19:22 Respiratory Rate 19 02/19/25 19:22 Blood Pressure 131/96 H 02/19/25 19:22 Pulse Oximetry 98 02/19/25 19:22 Oxygen Delivery Method Room Air 02/19/25 19:22 Temperature 98.4 F 02/19/25 19:22 Pulse Rate 84 02/20/25 01:10 Respiratory Rate 21 H 02/20/25 01:10 Blood Pressure 112/56 02/20/25 01:00 Pulse Oximetry 94 L 02/20/25 01:10 Oxygen Delivery Method Room Air 02/19/25 19:22 Medical Decision Making MDM Narrative Medical decision making narrative: patient presents complaining of right chest wall pain. 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 slipped out of bed and jammed her right arm into he chest when she fell on the arm. No complaint of pain of the arm but the chest wall is tender. CTs brain and C_spine without acute findings. Similarly CT abd/pelvis without acute findings. CT chest with acute fractures right 3rd, 4th and 5th ribs. No pulmonary contusion. labs elevated lactic acid. Nursing felt this because she was a difficult blood draw and the tourniquet was on for an extended time. Repeat lactic was normal. Serial troponin neg. Patient medicated with fentanyl and pain more tolerable. Discharged home with [place] and is to follow up with her doctor next week. Discharged with family who takes care of her Lab Data Labs: Lab Results 02/19/25 02/19/25 02/19/25 Range/Units 20:00 21:25 23:04 WBC 10.5 (4.0-11.0) 10^3/uL RBC 4.03 L (4.20-5.40) 10^6/uL Hgb 12.4 (12.0-16.0) g/dL Hct 37.3 (36.0-48.0) % MCV 92.6 (81.0-99.0) fL MCH 30.8 (26.7-34.0) pg MCHC 33.2 (29.9-35.2) g/dL RDW 13.8 (11.0-15.0) % Plt Count 230 (150-450) 10^3/uL MPV 9.8 (9.5-13.5) fL Neut % (Auto) 67.9 (43.0-75.0) % Lymph % (Auto) 22.3 (20.5-60.0) % Benzie % (Auto) 8.2 (1.7-12.0) % Eos % (Auto) 0.8 L (0.9-7.0) % Baso % (Auto) 0.3 (0.2-2.0) % Neut # (Auto) 7.1 H (1.4-6.5) 10^3/uL Lymph # (Auto) 2.3 (1.2-3.8) 10^3/uL Benzie # (Auto) 0.9 H (0.3-0.8) 10^3/uL Eos # (Auto) 0.1 (0.0-0.7) 10^3/uL Baso # (Auto) 0.0 (0.0-0.1) 10^3/uL Abs Immat Gran (auto) 0.05 H (0.00-0.03) 10^3/uL Imm/Tot Granulo (auto) 0.5 (0.0-0.5) % Sodium 135 L (136-145) mmol/L Potassium 3.3 L (3.5-5.1) mmol/L Chloride 97 L (98-107) mmol/L Carbon Dioxide 26.5 (21.0-32.0) mmol/L Anion Gap 14.8 BUN 15.0 (7.0-18.0) mg/dL Creatinine 0.98 (0.55-1.02) mg/dL Est GFR ( Amer) >60 (>=60 mL/min/1.73m^2) Est GFR (Non-Af Amer) 54 L (>=60 mL/min/1.73m^2) BUN/Creatinine Ratio 15.3 Glucose 121 H (74-106) mg/dL Lactate 2.6 H* 1.2 (0.4-2.0) mmol/L Calcium 9.1 (8.5-10.1) mg/dL Total Bilirubin 0.5 (0.2-1.0) mg/dL AST 17 (15-37) U/L ALT 22 (14-59) U/L Alkaline Phosphatase 104 (46-116) U/L Troponin I High Sens 12.0 (4.0-51.3) pg/mL Total Protein 6.9 (6.4-8.2) g/dL Albumin 3.3 L (3.4-5.0) g/dL Globulin 3.6 g/dL Albumin/Globulin Ratio 0.9 Urine Color Lt. yellow (YELLOW) Urine Clarity Clear (CLEAR) Urine pH 5.5 (5.0-9.0) Ur Specific [place] <=1.005 A (1.005-1.025) Urine Protein Negative (NEG/TRACE) mg/dL Urine Glucose (UA) Negative (NEGATIVE) mg/dL Urine Ketones Negative (NEGATIVE) mg/dL Urine Occult Blood Negative (NEGATIVE) Urine Nitrite Negative (NEGATIVE) Urine Bilirubin Negative (NEGATIVE) Urine Urobilinogen 0.2 (0.2-1.0) EU/dL Ur Leukocyte Esterase Small A (NEGATIVE) Urine RBC 2-5 A (0-2) #/HPF Urine WBC 5-10 A (NONE SEEN) #/HPF Ur Squamous Epith Cells Rare (NONE/RARE) #/LPF Ur Transition Epith Cell Rare A (NONE SEEN) #/LPF Urine Crystals None seen (None Seen) #/HPF Urine Bacteria Trace A (NONE SEEN) #/HPF Urine Casts None seen (NONE SEEN) #/LPF Urine Mucus None seen (NONE SEEN) Ur Culture Indicated? Yes[facility] 02/20/25 Range/Units 00:07 WBC (4.0-11.0) 10^3/uL RBC (4.20-5.40) 10^6/uL Hgb (12.0-16.0) g/dL Hct (36.0-48.0) % MCV (81.0-99.0) fL MCH (26.7-34.0) pg MCHC (29.9-35.2) g/dL RDW (11.0-15.0) % Plt Count (150-450) 10^3/uL MPV (9.5-13.5) fL Neut % (Auto) (43.0-75.0) % Lymph % (Auto) (20.5-60.0) % Benzie % (Auto) (1.7-12.0) % Eos % (Auto) (0.9-7.0) % Baso % (Auto) (0.2-2.0) % Neut # (Auto) (1.4-6.5) 10^3/uL Lymph # (Auto) (1.2-3.8) 10^3/uL Benzie # (Auto) (0.3-0.8) 10^3/uL Eos # (Auto) (0.0-0.7) 10^3/uL Baso # (Auto) (0.0-0.1) 10^3/uL Abs Immat Gran (auto) (0.00-0.03) 10^3/uL Imm/Tot Granulo (auto) (0.0-0.5) % Sodium (136-145) mmol/L Potassium (3.5-5.1) mmol/L Chloride (98-107) mmol/L Carbon Dioxide (21.0-32.0) mmol/L Anion Gap BUN (7.0-18.0) mg/dL Creatinine (0.55-1.02) mg/dL Est GFR ( Amer) (>=60 mL/min/1.73m^2) Est GFR (Non-Af Amer) (>=60 mL/min/1.73m^2) BUN/Creatinine Ratio Glucose (74-106) mg/dL Lactate (0.4-2.0) mmol/L Calcium (8.5-10.1) mg/dL Total Bilirubin (0.2-1.0) mg/dL AST (15-37) U/L ALT (14-59) U/L Alkaline Phosphatase (46-116) U/L Troponin I High Sens 12.3 (4.0-51.3) pg/mL Total Protein (6.4-8.2) g/dL Albumin (3.4-5.0) g/dL Globulin g/dL Albumin/Globulin Ratio Urine Color (YELLOW) Urine Clarity (CLEAR) Urine pH (5.0-9.0) Ur Specific [place] (1.005-1.025) Urine Protein (NEG/TRACE) mg/dL Urine Glucose (UA) (NEGATIVE) mg/dL Urine Ketones (NEGATIVE) mg/dL Urine Occult Blood (NEGATIVE) Urine Nitrite (NEGATIVE) Urine Bilirubin (NEGATIVE) Urine Urobilinogen (0.2-1.0) EU/dL Ur Leukocyte Esterase (NEGATIVE) Urine RBC (0-2) #/HPF Urine WBC (NONE SEEN) #/HPF Ur Squamous Epith Cells (NONE/RARE) #/LPF Ur Transition Epith Cell (NONE SEEN) #/LPF Urine Crystals (None Seen) #/HPF Urine Bacteria (NONE SEEN) #/HPF Urine Casts (NONE SEEN) #/LPF Urine Mucus (NONE SEEN) Ur Culture Indicated? Discharge Plan Discharge Chief Complaint: Weakness Clinical Impression: Right rib fracture Patient Disposition: Home, Self-Care Prescriptions / Home Meds: No Action duloxetine 60 mg capsule,delayed release(DR/EC) 60 mg PO DAILY loratadine 10 mg tablet 10 mg PO DAILY aspirin [Dalton Chewable Aspirin] 81 mg tablet,chewable 81 mg PO DAILY gabapentin 100 mg capsule 200 mg PO Q12H levothyroxine 100 mcg tablet 100 mcg PO .ACB famotidine 20 mg tablet 20 mg PO DAILY atorvastatin 40 mg tablet 40 mg PO DAILY memantine 10 mg tablet 10 mg PO BID torsemide 10 mg tablet 15 mg PO DAILY Qty: 0 0RF alprazolam 0.25 mg tablet 0.25 mg PO TID PRN (Reason: anxiety) Qty: 0 0RF Rx Instructions: If your anxiety is not relieved by your original 0.25 mg dose, Please take additional tablet (0.25 mg) to make it total of 0.5 mg every 8 hours as needed if your anxiety is not relieved by the original dose of 0.25 mg albuterol sulfate 2.5 mg /3 mL (0.083 %) solution for nebulization 2.5 mg inhalation Q8H PRN (Reason: shortness of breath or wheezing) bupropion HCl 150 mg tablet extended release 24 hr 150 mg PO DAILY polyethylene glycol 3350 17 gram Powder In Packet 17 g PO BID Qty: 0 0RF lisinopril 5 mg tablet 5 mg PO DAILY Print Language: Polish Instructions: Rib Fracture (ED) Additional Instructions: follow up with Dr Ortega next week for recheck Referrals: MK ORTEGA [Primary Care Provider, Internal Medicine] - 1 week
[2025-02-19 20:11] LABS: Hematocrit 37.3 % (36.0-48.0); Hemoglobin 12.4 g/dL (12.0-16.0); Immature Granulocytes Abs Auto 0.05 10^3/uL (0.00-0.03); Immature Granulocytes Pct Auto 0.5 % (0.0-0.5); Lymphocytes Absolute Auto 2.3 10^3/uL (1.2-3.8); Mean Corpuscular HGB Conc 33.2 g/dL (29.9-35.2); Mean Corpuscular Hemoglobin 30.8 pg (26.7-34.0); Mean Corpuscular Volume 92.6 fL (81.0-99.0); Platelet Count 230 10^3/uL (150-450); Red Blood Count 4.03 10^6/uL (4.20-5.40); White Blood Count 10.5 10^3/uL (4.0-11.0)
[2025-02-19 20:27] LABS: Alanine Aminotransferase 22 U/L (14-59); Albumin Globulin Ratio 0.9; Albumin Level 3.3 g/dL (3.4-5.0); Alkaline Phosphatase 104 U/L (46-116); Anion Gap 14.8; Aspartate Amino Transferase 17 U/L (15-37); Blood Urea Nitrogen 15.0 mg/dL (7.0-18.0); Calcium 9.1 mg/dL (8.5-10.1); Carbon Dioxide 26.5 mmol/L (21.0-32.0); Chloride 97 mmol/L (98-107); Estimated GFR (African America >60 (>=60 mL/min/1.73m^2); Estimated GFR (Non-African Ame 54 (>=60 mL/min/1.73m^2); Globulin 3.6 g/dL; Glucose 121 mg/dL (74-106); Potassium 3.3 mmol/L (3.5-5.1); Sodium 135 mmol/L (136-145); Total Protein 6.9 g/dL (6.4-8.2)
[2025-02-19 20:31] LABS: Lactate/Lactic Acid 2.6 mmol/L (0.4-2.0)
--- NOTE | 2025-02-19 20:56 | PC.NURSE ---
this patient and her family member informed of the repeat lad draw at 11:00 pm tonight and waiting for all ct results and for you to provide a urine sample. this patient voices no concerns, needs and shows no signs of distress
--- NOTE | 2025-02-19 21:32 | ECG_ITS ---
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
--- NOTE | 2025-02-19 21:33 | PC.NURSE ---
this patient is back in bed after using the BSC, 130 ml of clear yellow urine out and a sample sen to lab dept. during this BSC usage this patient complained of right side chest willett 12/29, so i completed a 2nd 12 lead EKG. this 12 lead EGG was given to Dr Vail and informed him of the right side chest for this chest pain this patient voices no other concerns, needs and shows no signs of distress
[2025-02-19 21:34] LABS: Glucose Urine UA NEGATIVE (NEGATIVE)
[2025-02-19 21:42] LABS: Cast Seen? NONE SEEN #/LPF (NONE SEEN); Crystals Seen? None Seen #/HPF (None Seen); Urine Culture Indicated YES-FRMC
[2025-02-19 23:29] LABS: Lactate/Lactic Acid 1.2 mmol/L (0.4-2.0)
[2025-02-20] VITALS (10 sets, daily range): BP systolic 112–123; BP diastolic 56–88; PULSE 81–102; O2SAT 93–100
[2025-02-20] MEDS: 0.9 % SODIUM CHLORIDE 500 ML IV (00:08)
[2025-02-20] MEDS: FENTANYL CITRATE/PF 100 MCG/2 ML VIAL 50 MCG IV (00:09)
[2025-02-20] MEDS: HYDROCODONE/ACET 5-325 MG TABLET 4 TAB PO (01:44)
--- NOTE | 2025-02-20 01:48 | PC.NURSE ---
i gave this patient and her family member verbal and written discharge orders along with 1 Rx and take home medication. this patient and her family member voices yes to understanding these discharge orders, Rx and take home medication. at time of discharge this patient nor family member voices no concerns, needs and this patient shows no signs of distress
== END 2025-02-20 01:47 | disposition home or self-care (01) ==
PROVIDERS: Emergency Provider Internal Medicine; PCP Internal Medicine
DX: S22.41XA Multiple fractures of ribs, right side, initial encounter for closed fracture (principal); W06.XXXA Fall from bed, initial encounter; I50.9 Heart failure, unspecified; Z98.84 Bariatric surgery status; Z90.710 Acquired absence of both cervix and uterus; Z87.891 Personal history of nicotine dependence; R82.998 Other abnormal findings in urine; R42 Dizziness and giddiness
CPT/HCPCS: 36415; 70450; 71260; 72125; 74177; 80053; 81001; 83605; 84484; 85025; 87086; 93005; 96361; 96374; 99285; J3010; Q9967

== ENCOUNTER 2025-04-29 11:41 | Emergency (ER) | payer MEDICARE, SELFPAY ==
[2025-04-29] VITALS (21 sets, daily range): BP systolic 103–148; BP diastolic 55–69; PULSE 74–95; TEMP 36.6; O2SAT 88–100; BMI 33.3
--- NOTE | 2025-04-29 11:25 | ECG_ITS ---
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 Measurements Intervals [place] Rate: 87 P: 60 TX: 154 QRS: 48 QRSD: 92 T: 70 QT: 352 QTc: 396 Interpretive Statements 1100 Sinus rhythm 8102 Low QRS voltage in chest leads 0102 ARTIFACT PRESENT 9120 atypical ECG Compared to ECG 02/19/2025 21:24:46 Low QRS voltage now present Electronically Signed On 04-29-2025 22:48:09 EST by EMILY CHING M.D.
--- NOTE | 2025-04-29 12:15 | XR_ITS ---
The [place] [id number] Patient Name: ELGIN NORWOOD MRN: [id number] date: 1940 Sex: F Assigned Patient Location: ER Current Patient Location: ED.MAIN Accession/Order Number: [id number] Exam Date: 04/29/2025 12:20 Report Date: 04/29/2025 12:56 At the request of: YOMAIRA LOWE DO Procedure: XR chest 1V XR chest 1V 04/29/2025 12:28 PM SIGNS AND SYMPTOMS: ^CHF PROTOCOL: Frontal radiograph of the chest COMPARISON: 01/19/2025 FINDINGS: The trachea is midline. The heart and mediastinal structures are within normal limits. There is diffuse interstitial prominence. This appears to be chronic in nature. No focal consolidation. The bony thorax is intact. Degenerative changes are noted in the shoulders and thoracic spine. XR/XR chest 1V IMPRESSION: No acute cardiopulmonary pathology. Impression dictated by: Bret Nogueira M.D. 04/29/2025 12:56 PM Dictation Location: [facility] Electronically authenticated by: [id number] Y Date: 04/29/2025 12:56
[2025-04-29 12:28] LABS: Hematocrit 35.4 % (36.0-48.0); Hemoglobin 11.4 g/dL (12.0-16.0); Immature Granulocytes Abs Auto 0.02 10^3/uL (0.00-0.03); Immature Granulocytes Pct Auto 0.3 % (0.0-0.5); Lymphocytes Absolute Auto 1.4 10^3/uL (1.2-3.8); Mean Corpuscular HGB Conc 32.2 g/dL (29.9-35.2); Mean Corpuscular Hemoglobin 29.7 pg (26.7-34.0); Mean Corpuscular Volume 92.2 fL (81.0-99.0); Platelet Count 199 10^3/uL (150-450); Red Blood Count 3.84 10^6/uL (4.20-5.40); White Blood Count 6.0 10^3/uL (4.0-11.0)
--- OUTSIDE RECORDS SUMMARY | 2025-04-29 12:53 | XMS_ITS | Encounter Summary ---
Author Organization [facility] Address [address] [facility] [place] [address] Care Team Providers Care Clinical Ob Name Role Phone Yossi Landers MD Primary Care Provider [phone] Yossi Landers MD Unavailable [phone] Seble Mejia RN Unavailable [phone] Daniela Alvarado LPN Unavailable Encounter Details DateTypeDepartmentCare Team (Latest Contact Info)Nzmgxuvmkgs44/07/2024Clinisync Result Encounter [facility] External Department Unsolicited Araceli Dominique MD [address] [address] Social History Tobacco UseTypesPacks/DayYears UsedDateSmoking Tobacco: FormerCigarettesQuit: 10/27/2012Smokeless Tobacco: NeverAlcohol UseStandard Drinks/WeekCommentsNot Currently0 (1 standard drink = 0.6 oz pure alcohol)caffeine intake: 2-3 cups per day of [id number] Health LiteracyAnswerDate RecordedHow often do you need to have someone help you when you read instructions, pamphlets, or other written material from your doctor or pharmacy?Hkcdsgqar99/20/2024Humiliation, Afraid, Rape, and Kick questionnaireAnswerDate RecordedWithin the last year, have you been afraid of your partner or ex-partner?No11/12/2022Within the last year, have you been humiliated or emotionally abused in other ways by your partner or ex-partner?No11/12/2022Within the last year, have you been kicked, hit, slapped, or otherwise physically hurt by your partner or ex-partner?No11/12/2022Within the last year, have you been raped or forced to have any kind of sexual activity by your partner or ex-partner?No11/12/2022Social Connection and Isolation Panel AnswerDate RecordedIn a typical week, how many times do you talk on the phone with family, friends, or neighbors?More than three times a week11/12/2022How often do you get together with friends or relatives?Once a week11/12/2022How often do you attend congregational or zoroastrian services?Never11/12/2022o you belong to any clubs or organizations such as congregational groups, unions, fraternal or athletic groups, or school groups?No11/12/2022How often do you attend meetings of the clubs or organizations you belong to?Never11/12/2022re you , , , , never , or living with a partner?Xfebdxh1311/12/2022 AUDIT-CAnswerDate RecordedQ1: How often do you have a drink containing alcohol? Never02/09/2024Q2: How many drinks containing alcohol do you have on a typical day when you are drinking?Patient does not drink02/09/2024Q3: How often do you have six or more drinks on one occasion?Never02/09/2024Overall Financial Resource Strain (CARDIA)AnswerDate RecordedHow hard is it for you to pay for the very basics like food, housing, medical 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Not very hard 11/12/2022HQ-2AnswerDate RecordedPatient Health Questionnaire-2 Score0 03/27/2025[facility] [place] of Occupational Health - Occupational Stress QuestionnaireAnswerDate RecordedDo you feel stress - tense, restless, nervous, or anxious, or unable to sleep at night because yourmind is troubled all the time - these days?Not at all11/12/2022Exercise Vital SignAnswerDate RecordedOn average, how many days per week do you engage in moderate to strenuous exercise (like a brisk walk)?0 days11/12/2022On average, how many minutes do you engage in exercise at this level?0 min11/12/2022Hunger Vital SignAnswerDate Recorded Within the past 12 months, you worried that your food would run out before you got the money to buymore.Never true11/12/2022Within the past 12 months, the food you bought just didn't last and you didn't have money to get more.Never true 11/12/2022RAPARE - TransportationAnswerDate RecordedIn the past 12 months, has lack of transportation kept you from medical appointments or from getting medications?No11/12/2022In the past 12 months, has lack of transportation kept you from meetings, work, or from getting things needed for daily living?No 11/12/2022Housing Stability Vital SignAnswerDate RecordedIn the last 12 months, was there a time when you were not able to pay the mortgage or rent on time?No 11/12/2022In the last 12 months, how many places have you lived?In the last 12 months, was there a time when you did not have a steady place to sleep or slept in [facility] (including now)?No11/12/2022CommentsUnknown Sex and Gender InformationValueDate RecordedSex Assigned at BirthNot on file Legal LioLowget59/15/2023 6:57 PM EDTGender IdentityNot on fileSexual OrientationNot on filedocumented as of this encounter Functional Status * Over the past 2 weeks, how often have you been bothered by any of the following problems?QuestionAnswerDate of AssessmentAuthorLittle interest or pleasure in doing thingsNot at all03/27/2025 3:03 PM Zion LOPEZeling down, depressed, or hopelessNot at all03/27/2025 3:03 PM CHACHA LOPEZ Patient Health Questionnaire-2 Ktiwt724 3:03 PM CHACHA LOPEZ * If you checked off any problems on this questionnaire so far,QuestionAnswer Date of AssessmentAuthorHow difficult have these problems made it for you to do your work, take care of things at home, or get along with other people? Somewhat zwtryotvf36/21/2025 9:48 AM CHACHA LOPEZ documented as of this encounter Plan of Treatment DateTypeDepartmentCare Team (Latest Contact Info)Gzjwdcoahpz27/17/2025 11:00 AM ESTOffice Visit [facility] [address] [place] [address] Yossi Landers MD [address] [place] [address] documented as of this encounter Procedures Procedure NamePriorityDate/TimeAssociated DiagnosisCommentsUS GCKWBYZ7305/28/2024 6:22 AM EST documented in this encounter Results * US thyroid (05/28/2024 6:22 AM EST)Anatomical RegionLateralityModalityHead, NeckUltrasoundSpecimen (Source)Anatomical Location / LateralityCollection Method / VolumeCollection TimeReceived Time05/28/2024 6:22 AM EST Narrative 05/28/2024 6:24 AM EST [facility] ?[address] ? [place] [address] ? Ultrasound Report ? Signed ? Patient: CUCO,ELGIN J ?MR#: [id number] ?? : 1940 ?Acct:[id number] ?? Age/Sex: 84 / F ?ADM Date: 05/27/24 ?? Loc: US ? Attending Dr: Araceli Dominique M.D. ? Ordering Physician: Araceli Dominique M.D. ?? Date of Service: 05/27/24 ?? Procedure(s): US thyroid ?? Accession Number(s): [id number] ? cc: YOSSI LANDERS ; Araceli Dominique M.D. ? [facility] ? [address] ? [place] [address] ? Patient Name: ?? ELGIN J CUCO ? MRN: [id number] ? date: 1940 ?Sex: F ?? Assigned Patient Location: US ?? Current Patient Location: ? Accession/Order Number: [id number] ?? Exam Date: 05/27/2024 ??13:36 ?Report Date: 05/28/2024 ??06:22 ? At the request of: ?? ARACELI ??TIMMIS ? Procedure: ??US thyroid ? EXAMINATION: US thyroid ? HISTORY: Multinodular Goiter ? COMPARISON: Ultrasound thyroid 06/01/2023 ? FINDINGS: ?? RIGHT LOBE: Lobectomy. No appreciable residual tissue. ? LEFT LOBE: Slightly heterogeneous echotexture and contains a left lobe/isthmus ? stable 14 x 7 x 9 mm TR 4 nodule. ?? Lobe size: 3.2 x 1.2 x 1.1 cm ? ISTHMUS: Abnormally thickened and slightly heterogeneous. ?? Thickness: 12 mm ? US/US thyroid ?? IMPRESSION: ? 1. Right lobectomy. No appreciable residual tissue. ?? 2. Stable 14 mm TR 4 nodule within medial left lobe/left lateral isthmus. ?? Consider follow-up ultrasound evaluation in one year to document stability. ? TR4 (moderately suspicious): If > 1.0 cm, follow-up ultrasound in 1, 2, 3, and ?? 5 years. If > 1.5 cm, fine needle aspiration (FNA). ? Electronically authenticated by: WISAM ??AVILA ?? Date: 05/28/2024 ??06:22 ? Dictated By: ?Wisam Wagner M.D. ? Signed By: ?05/28/24623 ? DD/ 1 ? TD/TT: ? Chief Accounting Officer: Procedure Note Radiology, Radiologist, - 05/28/2024 [place] [address] Ultrasound Report Signed Patient: ELGIN NORWOOD R#: [id number] : 2Acct:[id number] Age/Sex: 84 / FADM Date: 05/27/24 Loc: US Attending Dr: Araceli Dominique M.D. Ordering Physician: Araceli Dominique M.D. Date of Service: 05/27/24 Procedure(s): US thyroid Accession Number(s): [id number] cc: YOSSI LANDERS ; Araceli Dominique M.D. The [address] [address] Patient Name: ELGIN NORWOOD MRN: [id number] date: 1940 Sex: F Assigned Patient Location: US Current Patient Location: Accession/Order Number: [id number] Exam Date: 05/27/2024 13:36 Report Date: 05/28/2024 06:22 At the request of: ARACELI DOMINIQUE Procedure: US thyroid EXAMINATION: US thyroid [...] Wagner M.D. Signed By:05/28/24623 DD/ 1 TD/TT: Chief Accounting Officer: Authorizing ProviderResult TypeResult StatusHilaroxie ROCHA US PROCEDURES Final Result documented in this encounter Visit Diagnoses Not on filedocumented in this encounter Care Teams Team MemberRelationshipSpecialtyStart DateEnd Date Yossi Landers MD [address] [facility] [address] [place] [address] PCP - GeneralInternal Medicine11/03/22 Yossi Landers MD [address] [facility] [address] [place] [address] PCP - [employer]11/20/22 Seble Mejia RN [address] [place] [address] Clinical AdvocateFamily Medicine Daniela Alvarado LPN [address] [address] 09/09/24documented as of this encounter
--- OUTSIDE RECORDS SUMMARY | 2025-04-29 12:53 | XMS_ITS | Clinical Summary ---
Author Organization [facility] Address [address] [place] [address] Phone Care Team Providers Care Studio Coordinator Name Role Phone Unavailable Primary Care Provider Unavailabl e Social History Tobacco UseTypesPacks/DayYears UsedDateSmoking Tobacco: Never Assessed CommentsUnknownSex and Gender InformationValueDate RecordedSex Assigned at Not on fileLegal LbaJqaxpl13/26/2022 1:28 PM ESTGender IdentityNot on fileSexual OrientationNot on file Last Filed Vital Signs Vital SignReadingTime TakenCommentsBlood Bqvyyvli997/6409 3:04 PM EDT Jsoyb7002/07/2022 3:04 PM EDTTemperature--Respiratory Rate--Oxygen Saturation-- Inhaled Oxygen Concentration--Mooehv25.8 kg (209 lb)10/15/2021 12:59 PM EDT Jjksdq720.6 cm (5' 4 )02/26/2022 3:04 PM EDTBody Mass Index35.8704 12:59 PM EDT Plan of Treatment Health MaintenanceDue DateLast DoneCommentsLipid Panel2DTaP/Tdap/Td Vaccines (1 - Tdap)1964Zoster Vaccines (1 of 2)1992Bone Density Scan 2007RSV High Risk: (Elderly (60+) or Population) (1 - 1-dose 75+ series)2017Pneumococcal Vaccine (2 of 2 - PPSV23, PCV20, or PCV21) Yearly Adult Qhjcfifr01/, 08/01/2020, 07/04/2019, Additional history existsInfluenza Vaccine (#1)5COVID-19 Vaccine ( season)2025HIB VaccinesAged OutNo longer eligible based on patient's age to complete this topicHPV VaccinesAged OutNo longer eligible based on patient's age to complete this topicHepatitis A VaccinesAged OutNo longer eligible based on patient's age to complete this topicHepatitis B VaccinesAged OutNo longer eligible based on patient's age to complete this topic IPV VaccinesAged OutNo longer eligible based on patient's age to complete this topicMeningococcal VaccineAged OutNo longer eligible based on patient's age to complete this topicRotavirus VaccinesAged OutNo longer eligible based on patient's age to complete this topic
--- OUTSIDE RECORDS SUMMARY | 2025-04-29 12:53 | XMS_ITS | Encounter Summary ---
Author Organization [facility] Address [address] [facility] [place] [address] Care Team Providers Care Inspector Firearms Name Role Phone Yossi Landers MD Primary Care Provider [phone] Yossi Landers MD Unavailable [phone] Seble Mejia RN Unavailable Daniela Alvarado LPN Unavailable Encounter Details DateTypeDepartmentCare Team (Latest Contact Info)Xmefmgsiqqt46/11/2023Clinisync Result Encounter [facility] External Department Unsolicited Araceli Dominique MD [address] [address] Social History Tobacco UseTypesPacks/DayYears UsedDateSmoking Tobacco: FormerCigarettesQuit: 10/27/2012Smokeless Tobacco: NeverAlcohol UseStandard Drinks/WeekCommentsNot Currently0 (1 standard drink = 0.6 oz pure alcohol)B1300 Health LiteracyAnswer Date RecordedHow often do you need to have someone help you when you read instructions, pamphlets, or other written material from your doctor or pharmacy? Ixdkenltn91/20/2024Humiliation, Afraid, Rape, and Kick questionnaireAnswerDate RecordedWithin the last year, have you been afraid of your partner or ex-partner?No11/12/2022Within the last year, have you been humiliated or emotionally abused in other ways by your partner or ex-partner?No11/12/2022 Within the last year, have you been kicked, hit, slapped, or otherwise physically hurt by your partner or ex-partner?No11/12/2022Within the last year, have you been raped or forced to have any kind of sexual activity by your part ner or ex-partner?No11/12/2022Social Connection and Isolation PanelAnswerDate RecordedIn a typical week, how many times do you talk on the phone with family, friends, or neighbors?More than three times a week11/12/2022How often do you get together with friends or relatives?Once a week11/12/2022How often do you attend hoahaoism or cheondoism services?Never11/12/2022o you belong to any clubs or organizations such as hoahaoism groups, unions, fraternal or athletic groups, or school groups?No11/12/2022How often do you attend meetings of the clubs or organizations you belong to?Never11/12/2022re you , , , , never , or living with a partner?Xrylvln0711/12/2022UDIT-C AnswerDate RecordedQ1: How often do you have a drink containing alcohol?Never 02/09/2024Q2: How many drinks containing alcohol do you have on a typical day when you are drinking?Patient does not drink02/09/2024Q3: How often do you have six or more drinks on one occasion?Never02/09/2024Overall Financial Resource Strain (CARDIA)AnswerDate RecordedHow hard is it for you to pay for the very basics like food, housing, medical 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Not very hard11/12/2022 PHQ-2AnswerDate RecordedPatient Health Questionnaire-2 Rthlj795Finhigh[facility] [place] of Occupational Health - Occupational Stress QuestionnaireAnswerDate RecordedDo you feel stress - tense, restless, nervous, or anxious, or unable to sleep at night because yourmind is troubled all the time - these days?Not at all 11/12/2022Exercise Vital SignAnswerDate RecordedOn average, how many days per week do you engage in moderate to strenuous exercise (like a brisk walk)?0 days 05/24/2023On average, how many minutes do you engage in exercise at this level?0 min11/12/2022Hunger Vital SignAnswerDate RecordedWithin the past 12 months, you worried that your food would run out before you got the money to buymore.Never true11/12/2022Within the past 12 months, the food you bought just didn't last and you didn't have money to get more.Never true11/12/2022RAPARE - TransportationAnswerDate RecordedIn the past 12 months, has lack of transportation kept you from medical appointments or from getting medications?No 11/12/2022In the past 12 months, has lack of transportation kept you from meetings, work, or from getting things needed for daily living?No11/12/2022 Housing Stability Vital SignAnswerDate RecordedIn the last 12 months, was there a time when you were not able to pay the mortgage or rent on time?No11/12/2022In the last 12 months, how many places have you lived?In the last 12 months, was there a time when you did not have a steady place to sleep or slept in [facility] (including now)?No11/12/2022CommentsUnknownSex and Gender InformationValueDate RecordedSex Assigned at BirthNot on fileLegal SexFemale 09/03/2022 6:57 PM EDTGender IdentityNot on fileSexual OrientationNot on file COVID-19 ExposureResponseDate RecordedIn the last 10 days, have you been in contact with someone who was confirmed or suspected to have Co ronavirus/COVID-19?No / Xbxtua7805/11/2023 9:57 AM ESTdocumented as of this encounter Functional Status * AUDIT-C ScoreAnswerDate of NtxadzjtyxBbdavu217/20/2024 4:23 PM Lara Begum LPN * QuestionAnswerDate of AssessmentAuthorQ1: How often do you have a drink containing alcohol?Never02/09/2024 4:23 PM Lara Begum LPNQ2: How many drinks containing alcohol do you have on a typical day when you are drinking? Patient does not drink02/09/2024 4:23 PM Lara Begum LPNQ3: How often do you have six or more drinks on one occasion?Never02/09/2024 4:23 PM Lara Begum LPN * Over the past 2 weeks, how often have you been bothered by any of the following problems?QuestionAnswerDate of AssessmentAuthorLittle interest or pleasure in doing thingsNot at all03/27/2025 3:03 PM Zion LOPEZeling down, depressed, or hopelessNot at all03/27/2025 3:03 PM CHACHA LOPEZ Patient Health Questionnaire-2 Ifpht913 3:03 PM CHACHA LOPEZ * If you checked off any problems on this questionnaire so far,QuestionAnswer Date of AssessmentAuthorHow difficult have these problems made it for you to do your work, take care of things at home, or get along with other people? Somewhat cnvweoaxi47/21/2025 9:48 AM CHACHA LOPEZ documented as of this encounter Plan of Treatment DateTypeDepartmentCare Team (Latest Contact Info)Adbimtzzjlf30/17/2025 11:00 AM ESTOffice Visit [facility] [place] [address] [facility] [address] [place] [address] Yossi Landers MD [address] [place] [address] documented as of this encounter Procedures Procedure NamePriorityDate/TimeAssociated DiagnosisCommentsUS NQXQKFG0106/01/2023 10:38 AM EST documented in this encounter Results * US thyroid (06/01/2023 10:38 AM EST)Anatomical RegionLateralityModalityHead, NeckUltrasoundSpecimen (Source)Anatomical Location / LateralityCollection Method / VolumeCollection TimeReceived Time06/01/2023 10:38 AM EST Narrative 06/01/2023 10:40 AM EST [facility] ?[address] ? [place] [address] ? Ultrasound Report ? Signed ? Patient: [place],Elgin J ?MR#: [id number] ?? : 1940 ?Acct:[id number] ?? Age/Sex: 83 / F ?ADM Date: 12/11/23 ?? Loc: US ? Attending Dr: Araceli Dominique M.D. ? Ordering Physician: Araceli Dominique M.D. ?? Date of Service: 06/01/23 ?? Procedure(s): US thyroid ?? Accession Number(s): [id number] ? cc: YOSSI LANDERS ; Araceli Dominique M.D. ? [facility] ? [address] ? [place] [address] ? Patient Name: ?? ELGIN NORWOOD ? MRN: [facility]:[id number] ? date: 1940 ?Sex: F ?? Assigned Patient Location: US ?? Current Patient Location: US ?? Accession/Order Number: [id number] ?? Exam Date: 06/01/2023 ??09:55 ?Report Date: 06/01/2023 ??10:38 ? At the request of: ?? ARACELI ??LYNETTE ? Procedure: ??US thyroid ? EXAMINATION: US thyroid ? HISTORY: Multinodular Goiter E04.2 ? COMPARISON: 12/08/2022 on 05/29/2022 ? TECHNIQUE: Sonographic images of the thyroid gland were obtained. ? FINDINGS: ? The right thyroid lobe is surgically absent. Again demonstrated is a small ?? area ?? of hyperechogenicity in the right thyroid fossa measuring 4.7 x 3.3 x 2.2 mm, ?? stable. ? The thyroid isthmus measures 3.5 mm, heterogeneous. No focal nodule. ? The left thyroid lobe measures 3.3 x 1.2 x 1.7 cm. Heterogeneous echotexture. ?? 3 ?? focal nodules one measuring over 1 cm ?? 1.4 x 1.1 x 0.9 cm. Mixed solid and cystic, hypoechoic, wide, smooth margins, ?? punctate calcifications. TR 4 ? US/US thyroid ?? IMPRESSION: ? 1.4 cm left thyroid TR 4 nodule, stable from the prior exam, minimally ?? enlarged ?? from the May 2022 exam ? TI-RADS: The [employer] [place] [employer] TI-RADS committee's white paper ?? recommendations for thyroid lesions classified as TR4 (moderately suspicious) ?? are listed below: ?? > 1.0 cm. Follow-up ultrasound in 1, 2, 3, and 5 years. > 1.5 cm. FNA. J. Am Nikunj Radiol 2017;14:587-595. ? Electronically authenticated by: CARLOS ??BARRIE ?? Date: 06/01/2023 ??10:38 ? Dictated By: ?Carlos Sood M.D. ? Signed By: ?12/11 1040 ? DD/ 1038 ? TD/TT: ? Bowl Attendant: Procedure Note Radiology, Radiologist, - 08/26/2023 [place] [address] Ultrasound Report Signed Patient: Elgin Norwood JMR#: [id number] : 1940cct:[id number] Age/Sex: 83 / FADM Date: 06/01/23 Loc: US Attending Dr: Araceli Dominique M.D. Ordering Physician: Araceli Dominique M.D. Date of Service: 06/01/23 Procedure(s): US thyroid Accession Number(s): [id number] cc: YOSSI LANDERS ; Araceli Dominique M.D. The [place] [address] Patient Name: ELGIN NORWOOD MRN: [id number] date: 1940 Sex: F Assigned Patient Location: Current Patient Location: US Accession/Order Number: [id number] Exam Date: 06/01/2023 09:55 Report Date: 06/01/2023 10:38 At the request of: ARACELI DOMINIQUE Procedure: [...] from the May 2022 exam TI-RADS: The [employer] [place] [employer] TI-RADS committee's white paper recommendations for thyroid lesions classified as TR4 (moderatelysuspicious) are listed below: > 1.0 cm. Follow-up ultrasound in 1, 2, 3, and 5 years. > 1.5 cm. FNA. J. Am Nikunj Radiol 2017;14:587-595. Electronically authenticated by: CARLOS SOOD Date: 06/01/2023 10:38 Dictated By: Carlos Sood M.D. Signed By:06/01/23 1040 DD/ 1038 TD/TT: Bowl Attendant: Authorizing ProviderResult TypeResult StatusHilaroxie Dominique MDIMG US PROCEDURES Final Result documented in this encounter Visit Diagnoses Not on filedocumented in this encounter Care Teams Team MemberRelationshipSpecialtyStart DateEnd Date Yossi Landers MD [address] [facility] [address] [place] [address] PCP - GeneralInternal Medicine11/03/22 Yossi Landers MD [address] [facility] [address] [place] [address] PCP - [employer]11/20/22 Seble Mejia, CIPRIANO [address] [place] [address] Clinical AdvocateFamily Medicine Daniela Alvarado LPN [address] [facility] [address] [place] [address] 09/09/24documented as of this encounter
--- OUTSIDE RECORDS SUMMARY | 2025-04-29 12:53 | XMS_ITS | Continuity of Care Document ---
Author Organization [facility] up Address [address] [place], [place] [address] Insurance Providers Payer Plan Claims Address Claims Phone Policy Number Group Number Relation Employer Guarantor Name Guarantor Guarantor Address Guarantor Phone [id number] [place], [place] [address]ZFRBLO MEDICARE ADVANTAGEPO [address] [place] [address] [id number] [address] HUMANA MEDICARE ADV[address] [place], [place] [address]tel: [phone] [place] [address] Problems Condition ICD9 code ICD10 code SNOMED code Start Date End Date S tatus Pneumonia, unspecified organism J18.9010/03/2024tiveType 2 diabetes mellitus with lbmnwpfspuzxgI66.65010/03/2024 ActiveChronic obstructive pulmonary disease, ktopxhrnncmH82.9010/03/2024tive Hypothyroidism, xjepreqldoaS66.9010/03/20246251YvciptIewsviseimvD45.004tive Hyperlipidemia, mmxecmmnptpZ54.504tiveChondrocostal junction syndrome [Tietze]M94.5ActiveEssential (primary) tkjtdtmbsgvzI40675Active Atherosclerotic heart disease of [place] coronary artery without angina pectoris I25.1005ActiveAdjustment disorder with depressed moodF43. ActiveChronic diastolic (congestive) heart wfjmothP47.3205ActiveAnxiety disorder, rbxsbcvelbeR24.904tiveSpinal stenosis, lumbar region without neurogenic hctzzaywngxqB37.91306tiveOther chest painR07.8904 ActiveUnspecified abdominal painR10.9010/03/2024tiveAbdominal distension (gaseous)R14.004tiveOther symptoms and signs involving the musculoskeletal kjarhzK11.37589tiveUnspecified injury of head, subsequent worbgryowC51.90XD04tiveContusion of left knee, subsequent tyotatbuqZ46.02XD10/03/2024tivePerson with feared health complaint in whom no diagnosis is madeZ71.104tiveUnilateral primary osteoarthritis, right hipM16.1104tiveConstipation, npcxazslykrM75.0004tiveGastro- esophageal reflux disease without uhmvfddozofU47.9010/04/2024tive Results No Results Allergies, adverse reactions, alerts Substance Reaction Date Status Type rofecoxib 10/04/2024Non OtmlnquszqeeHimuvbmr07/15/2025Non Drug Medications Medication Instructions Route Dosage Frequency Start Date Stop Date Indications Status docusate sodium 100 mg capsule (docusate sodium) 2 epdc=952lq, oral, Twice A Day oral 1.0 12.0 h 10/05 Constipation, unspecified Active gabapentin 100 mg capsule (gabapentin) 2 wmia=236kw, oral, Twice A Day oral 1.0 12.0 h 10/05 Spinal stenosis, lumbar region without neurogenic claudication Active alprazolam 0.25 mg tablet (alprazolam) 0.25mg, oral, Twice A Day - PRN oral 1.0 12.0 h 10/18 Anxiety disorder, unspecified Active hydrocodone-a cetaminophen 5-325 mg tablet (hydrocodone- acetaminophen ) 1.5 tabs, oral, Every 6 Hours - PRN, severe pain scale 7-10 oral 1.0 6.0 h 10/05 Spinal stenosis, lumbar region without neurogenic claudication Active Milk Of Magnesia Concentrated (magnesium hydroxide) 2,400 mg/10 mL suspension (Milk Of Magnesia Concentrated (magnesium hydroxide)) 2,400 mg, oral, Every 6 Hours - PRN oral 1.0 6.0 h 10/05 Constipation, unspecified Active hyoscyamine sulfate 0.125 mg tablet, sublingual (hyoscyamine sulfate) 0.125 mg, sublingual, Every 4 Hours - PRN, cramping sublingua l 1.0 4.0 h 10/05 Unspecified abdominal pain Active pantoprazole 40 mg tablet,delaye d release (DR/EC) (pantoprazole ) 40 mg, oral, Once A Day, reflux oral 1.0 1.0 d 10/05 Unspecified abdominal pain Active aspirin 81 mg tablet,chewab le (aspirin) 81mg, oral, Once A Day oral 1.0 1.0 d 10/05 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 carvedilol 12.5 mg tablet (carvedilol) 12.5 mg, oral, Twice A Day oral 1.0 12.0 h 10/05 Essential (primary) hypertension Active duloxetine 60 mg capsule,delay ed release(DR/EC ) (duloxetine) 60mg, oral, Once A Day oral 1.0 1.0 d 10/05 Anxiety disorder, unspecified Active famotidine 20 mg tablet (famotidine) 20mg, oral, Once A Day oral 1.0 1.0 d 10/05 Gastro-esophage al reflux disease without esophagitis Active loratadine 10 mg tablet (loratadine) 10mg, oral, Once A Day oral 1.0 1.0 d 10/05 Chronic obstructive pulmonary disease, unspecified Active ondansetron 4 mg tablet,disint egrating (ondansetron) 4mg, oral, Every 8 Hours - PRN, NV oral 1.0 8.0 h 10/05 Unspecified abdominal pain Active polyethylene glycol 3350 17 gram/dose powder (polyethylene glycol 3350) 17gm, oral, Once A Day oral 1.0 1.0 d 10/05 Constipation, unspecified Active sucralfate 1 gram tablet (sucralfate) 1 gram, oral, Before Meals and At Bedtime oral 1.0 Unspecified abdominal painActiveTrelegy Ellipta (ywjntdcqpkx-bktkaluud-skssscrl) 100-62.5-25 mcg blister with device (Trelegy Ellipta (zbhjlzenhzs-dshypfkmk-zqbsijcz))1 inhalation, inhalation, Once A Day inhalation1.01.0 d05Chronic obstructive pulmonary disease, unspecifiedActivealprazolam 0.25 mg tablet (alprazolam)0.25mg, oral, Twice A Day - PRNoral1.012.0 h05Anxiety disorder, unspecifiedActive Vital Signs Date Vital Result Comment 10/04/2024 12:47 PM Body Height 65 [in_us] 10/04/2024 12:42 MIRczqzzpbndd57.4 [degF]Oxygen Aibbghzing77 %Respiratory Rate24 /minHeart Rate78 /minBlood Pressure Xddwlxyk464 mm[Hg]Blood Pressure Diastolic 82 mm[Hg] Social History No smoking Hx information available Encounters Type CPT Code Date Location Provider Indication s encounter report 10/04/2024 09:54 Rayray THOMASencounter itgovi7810/04/2024 12:55 PM - 10/04/2024 06:55 PMRosaura THOMAS Advance Directives Directive Description Verification Date Supporting Document(s) Resuscitation
--- OUTSIDE RECORDS SUMMARY | 2025-04-29 12:53 | XMS_ITS | Encounter Summary ---
Author Organization [facility] Address [address] [place] [address] Care Team Providers Care Contact Center Analyst Name Role Phone Yossi Landers MD Primary Care Provider [phone] Yossi Landers MD Unavailable [phone] Seble eMjia RN Unavailable Daniela Alvarado LPN Unavailable Encounter Details DateTypeDepartmentCare Team (Latest Contact Info)Wrdeybkrlih68/06/2024Clinisync Result Encounter [facility] External Department Unsolicited Yossi Landers MD [address] [facility] [address] [place] [address] Social History Tobacco UseTypesPacks/DayYears UsedDateSmoking Tobacco: FormerCigarettesQuit: 10/27/2012Smokeless Tobacco: NeverAlcohol UseStandard Drinks/WeekCommentsNot Currently0 (1 standard drink = 0.6 oz pure alcohol)caffeine intake: 2-3 cups per day of lhjxibG8512 Health LiteracyAnswerDate RecordedHow often do you need to have someone help you when you read instructions, pamphlets, or other written material from your doctor or pharmacy?Fgybkmssw95/20/2024Humiliation, Afraid, Rape, and Kick questionnaireAnswerDate RecordedWithin the [...] relatives?Once a week11/12/2022How often do you attend judaism or amish services?Never11/12/2022o you belong to any clubs or organizations such as judaism groups, unions, fraternal or athletic groups, or school groups?No11/12/2022How often do you attend meetings of the clubs or organizations you belong to?Never11/12/2022re you , , , , never , or living with a partner?Obevjjg5011/12/2022 AUDIT-CAnswerDate RecordedQ1: How often do you have [...] very hard 11/12/2022HQ-2AnswerDate RecordedPatient Health Questionnaire-2 Score0 03/27/2025[facility] [place] of Occup[facility] Health - Occupational Stress QuestionnaireAnswerDate [...] steady place to sleep or slept in [facility] (including now)?No11/12/2022CommentsUnknown Sex and Gender InformationValueDate RecordedSex Assigned at BirthNot on file Legal UhlYsofcb98/15/2023 6:57 PM EDTGender IdentityNot on fileSexual OrientationNot on filedocumented as of this encounter Functional Status * Over the past 2 weeks, how often have you been bothered by any of the following problems?QuestionAnswerDate of AssessmentAuthorLittle interest or pleasure in doing thingsNot at all03/27/2025 3:03 PM Zion LOPEZeling down, depressed, or hopelessNot at all03/27/2025 3:03 PM CHACHA LOPEZ Patient Health Questionnaire-2 Faxnf479 3:03 PM CHACHA LOPEZ * If you checked off any problems on this questionnaire so far,QuestionAnswer Date of AssessmentAuthorHow difficult have these problems made it for you to do your work, take care of things at home, or get along with other people? Somewhat /21/2025 9:48 AM CHACHA LOPEZ documented as of this encounter Plan of Treatment DateTypeDepartmentCare Team (Latest Contact Info)Jxoqonzgdbg93/17/2025 11:00 AM ESTOffice Visit [facility] [address] [place] [address] Yossi Landers MD [address] [place] [address] documented as of this encounter Procedures Procedure NamePriorityDate/TimeAssociated DiagnosisCommentsCA ECHO DOPPLER BWBMRTUZ56/06/2024 6:01 PM EST documented in this encounter Results * CA ECHO DOPPLER COMPLETE (05/27/2024 6:01 PM EST)Anatomical RegionLaterality ModalityOtherSpecimen (Source)Anatomical Location / LateralityCollection Method / VolumeCollection TimeReceived Time05/27/2024 6:01 PM EST Narrative 05/27/2024 6:02 PM EST [facility] ?[address] ? [place] [address] ? Cardiology Report ? Signed ? Patient: CUCO,ELGIN J ?MR#: [id number] ?? : 1940 ?Acct:[id number] ?? Age/Sex: 84 / F ?ADM Date: 05/27/24 ?? Loc: CARD ? Attending Dr: YOSSI LANDERS ? Ordering Physician: YOSSI LANDERS ?? Date of Service: 05/27/24 ?? Procedure(s): CA echo doppler complete ?? Accession Number(s): [id number] ? cc: YOSSI LANDERS ? Patient Name: ? ELGIN DALRUBA ? MR#: [id number] ? : 1940 ? Exam Date: 05/27/2024 ?? Ordering Doctor: DR YOSSI LANDERS M.D. ? ECHOCARDIOGRAM REPORT ? PROCEDURE: ? CA ECHO DOPPLER COMPLETE ? INDICATIONS: ? Chronic combined systolic and diastolic heart failure, ?? hypertension, diabetes ? COMPARISON: ? None. ? DESCRIPTION: ? COMPLETE ECHOCARDIOGRAM Real-time transthoracic ?? echocardiography with 2D, M-mode, spectral and color flow Doppler performed. ? QUALITY: ? Technical quality was good. ? LEFT VENTRICLE: ? Normal chamber size. Borderline left ventricular ?? hypertrophy. ? LV EF: ? Normal left ventricular ejection fraction, 60%. No regional wall ?? motion abnormalities. ?? DIASTOLIC: ? Diastolic function is indeterminate ?? ATRIAL SEPTUM: ? Visually appears intact. ?? LEFT ATRIUM: ? Mild dilatation. ?? RIGHT ATRIUM: ? Normal chamber size. ?? RIGHT VENTRICLE: ? Normal chamber size. Decreased right ventricular systolic ?? function. ?? Could not evaluate Pulmonary atrial pressure due to lack of TR ?? TRICUSPID VALVE: ? Normal mobility and thickness. No stenosis with no ?? regurgitation. ? MITRAL VALVE: ? Normal mobility and thickness. ?? No evidence of mitral valve ?? stenosis. ??Mild mitral annular calcification. Trivial mitral regurgitation. ? AORTIC VALVE: ? Normal trileaflet appearance. Mildly calcified aortic valve. ?? Normal leaflet mobility. ??No evidence of aortic valve stenosis. No aortic ?? regurgitation. ? AORTIC ROOT: ? Normal diameter and appearance. ? PULMONIC VALVE: ? Normal thickness and mobility. No stenosis. ? PERICARDIUM: ? Small pericardial effusion with fibrinous appearance . ??No ?? evidence of tamponade. ? IVC: ? IVC is dilated (2.6 cm), does not fully collapse, consistent with ?? elevated central venous pressure, RAP 15 mmHg ? PLEURA: ? CONCLUSION: ? Normal left ventricle chamber size. Borderline left ventricular hypertrophy. ? Normal left ventricular ejection ?? fraction, 60%. No regional wall motion abnormalities. ?? Normal right ventricle chamber size. Decreased right ventricular systolic ?? function ?? Small pericardial effusion with fibrinous appearance . ??No evidence of ?? tamponade. ?? IVC is dilated (2.6 cm), does not fully collapse, consistent with elevated ?? central venous pressure, RAP 15 mmHg ? No significant valvular abnormalities ? Adult Echocardiography Procedure Report ?? Left Ventricle ?? LVEDD (3.7 - 5.6 cm): ? 4.41 cm ?? LVESD (2.2 - 4.0 cm): ? 3.15 cm ?? LVIVS thickness (0.6 - 1.2 cm): ? 0.75 cm ?? LVPW thickness (0.5 - 1.0 cm): ? 1.01 cm ?? e': ? 0.06 m/s ?? E - e': ? 13.60 ?? LVOT Max Gradient: ? 1.74 mm[Hg] ?? LVOT Area (cm2): ? 0.66 m/s ?? Peak Velocity (LVOT): ? 0.66 m/s ?? Mean Velocity (LVOT): ? 0.44 m/s ?? LVOT Diameter ? 2.08 cm ?? Left Atrium ?? LA Volume Index (2D A2C): ? 39.49 ml/m2 ?? Left Atrium Systolic Dimension: ? 3.41 cm ?? Mitral Valve ?? MV E to A Ratio: ? 0.87 ?? Mitral Valve A-Wave Peak Velocity: ? 1.02 m/s ?? Mitral Valve E-Wave Peak Velocity: ? 0.88 m/s ?? Right Ventricle ?? Aorta ?? AO Root Diam: ? 3.05 cm ?? Aortic Valve ?? AoV Area (Peak Piotr): ? 1.35 cm2, 1.35 cm2 ?? AoV Area (VTI): ? 1.51 cm2, 1.51 cm2 ?? Peak Velocity(Antegrade Flow): ? 1.65 m/s ?? Peak Gradient(Antegrade Flow): ? 10.87 mm[Hg] ?? Mean Velocity(Antegrade Flow): ? 1.14 m/s ?? Mean Gradient(Antegrade Flow): ? 5.95 mm[Hg] ?? Velocity Time Integral: ? 42.78 cm ?? Tricuspid Valve ?? Pulmonic Valve ?? Mean Gradient: ? 2.27 mm[Hg] ?? Mean Velocity: ? 0.70 m/s ?? Peak Velocity: ? 1.08 m/s, 1.04 m/s ?? Peak Gradient: ? 4.33 mm[Hg], 4.69 mm[Hg] ?? Right Atrium ?? Right Atrium Systolic Pressure: ? 20.97 ml, 20.97 ml ? Dictated by: Nataliya Olivares MD on 05/27/2024 at 17:40 ? Approved by: Nataliya Olivares MD on 05/27/2024 at 18:01 ? Dictated By: ?Nataliya Olivares M.D. ? Signed By: ?05/27/241801 ? DD/ 1801 ? TD/TT: ? Screen Operator: Procedure Note Radiology, Radiologist, MD - 05/27/2024 [place] [address] Cardiology Report Signed Patient: ELGIN NORWOOD JMR#: [id number] : 1940cct:[id number] Age/Sex: 84 / FADM Date: 05/27/24 Loc: CARD Attending Dr: YOSSI LANDERS Ordering Physician: YOSSI LANDERS Date of Service: 05/27/24 Procedure(s): CA echo doppler complete Accession Number(s): [id number] cc: YOSSI LANDERS Patient Name: ELGIN NORWOOD MR#: [id number] : 1940 Exam Date: 05/27/2024 Ordering Doctor: [...] Olivares M.D. Signed By:05/27/241801 DD/ 00 TD/TT: Screen Operator: Authorizing ProviderResult TypeResult StatusDanironi Landers MDCLINISYNC IMAGING Final Result documented in this encounter Visit Diagnoses Not on filedocumented in this encounter Care Teams Team MemberRelationshipSpecialtyStart DateEnd Date Yossi Landers MD [address] [place] [address] [place] [address] PCP - GeneralInternal Medicine11/03/22 Yossi Landers MD [address] [place] [address] [place] [address] PCP - [employer]11/20/22 Seble Mejia, CIPRIANO [address] [place] [address] Clinical AdvocateFamily Medicine Daniela Alvarado LPN [address] [place] [address] [place] [address] 09/09/24documented as of this encounter
--- OUTSIDE RECORDS SUMMARY | 2025-04-29 12:53 | XMS_ITS | Encounter Summary ---
Author Organization [facility] Address [address] [place] [address] Care Team Providers Care Bulb Brander Name Role Phone Yossi Landers MD Primary Care Provider [phone] Yossi Landers MD Unavailable [phone] Daniela Alvarado LPN Unavailable Encounter Details DateTypeDepartmentCare Team (Latest Contact Info)Luwopjnsksh26/04/2025Patient Outreach [facility] [address] [place] [phone] Daniela Alvarado LPN [address] [place] [address] Social History Tobacco UseTypesPacks/DayYears UsedDateSmoking Tobacco: FormerCigarettesQuit: 10/27/2012Smokeless Tobacco: NeverAlcohol UseStandard Drinks/WeekCommentsNot Currently0 (1 standard drink = 0.6 oz pure alcohol)caffeine intake: 2-3 cups per day of eoeokcD3699 Health LiteracyAnswerDate RecordedHow often do you need to have someone help you when you read instructions, pamphlets, or other written material from your doctor or pharmacy?Afvyjgxjr14/20/2024Humiliation, Afraid, Rape, and Kick questionnaireAnswerDate RecordedWithin the [...] relatives?Once a week11/12/2022How often do you attend yazdanism or mormonism services?Never11/12/2022o you belong to any clubs or organizations such as yazdanism groups, unions, fraternal or athletic groups, or school groups?No11/12/2022How often do you attend meetings of the clubs or organizations you belong to?Never11/12/2022re you , , , , never , or living with a partner?Gviqkhn8611/12/2022 AUDIT-CAnswerDate RecordedQ1: How often do you have [...] very hard 11/12/2022HQ-2AnswerDate RecordedPatient Health Questionnaire-2 Score0 03/27/2025[facility] [place] [facility] Occupational Health - Occupational Stress QuestionnaireAnswerDate [...] steady place to sleep or slept in [place] (including now)?No11/12/2022CommentsUnknown Sex and Gender InformationValueDate RecordedSex Assigned at BirthNot on file Legal IdhOgacfs27/15/2023 6:57 PM EDTGender IdentityNot on fileSexual OrientationNot on filedocumented as of this encounter Progress Notes * Daniela Alvarado LPN - 04/25/2025 9:36 AM EST Spoke with pts daughter Moni for outreach. Pts daughter states pt is doing ok. Pt wanted daughter to ask about her weight gain. I ask if pt has had any increase in edema or shortness of breath with this weight gain. Moni states that not anything noticeable or different from pts usual at this time. Moni shares that pt has been snacking more and is less active since her ribs were fractured. I ask if pt has been weighing self daily. Moni sates yes and that pt gained a little over 2 lbs in one day a few days ago. I encourage pts daughter Moni to continue to weigh pt daily and to watch for any increase in swelling or shortness of breath, or weight gain over 2-3 lbs a day. I let her know if this o ccurs to call office to get pt appt or go to ER if shortness of breath occurs and is significant. Pts daughter voices understanding. Denies any other needs or concerns for pt at this time. documented in this encounter Plan of Treatment DateTypeDepartmentCare Team (Latest Contact Info)Lbpisrxxmdc40/17/2025 11:00 AM ESTOffice Visit [facility] [place] [facility] [address] [facility] [address] [place] [address] Yossi Landers MD [address] [place] [address] documented as of this encounter Visit Diagnoses Diagnosis Type 2 diabetes mellitus with diabetic neuropathy, without long-term current use of insulin (HCC)- Primary Chronic combined systolic and diastolic congestive heart failure (HCC) documented in this encounter Care Teams Team MemberRelationshipSpecialtyStart DateEnd Date Yossi Landers MD [address] [facility] [address] [place] [address] PCP - GeneralInternal Medicine11/03/22 Yossi Landers MD [address] [place] [address] PCP - [employer]11/20/22 Daniela Alvarado LPN [address] [place] [address] 09/09/24documented as of this encounter
--- OUTSIDE RECORDS SUMMARY | 2025-04-29 12:53 | XMS_ITS | Encounter Summary ---
Author Organization [facility] Address [address] [place] [address] Care Team Providers Care Head Of Academic Technology Name Role Phone Yossi Landers MD Primary Care Provider [phone] Yossi Landers MD Unavailable [phone] Seble Mejia RN Unavailable Daniela Alvarado LPN Unavailable Encounter Details DateTypeDepartmentCare Team (Latest Contact Info)Ojpdqsuyazp85/31/2024Clinisync Result Encounter [facility] Department Unsolicited Yossi Landers MD [address] [facility] [address] [place] [address] Social History Tobacco UseTypesPacks/DayYears UsedDateSmoking Tobacco: FormerCigarettesQuit: 10/27/2012Smokeless Tobacco: NeverAlcohol UseStandard Drinks/WeekCommentsNot Currently0 (1 standard drink = 0.6 oz pure alcohol)caffeine intake: 2-3 cups per day of [id number] Health LiteracyAnswerDate RecordedHow often do you need to have someone help you when you read instructions, pamphlets, or other written material from your doctor or pharmacy?Lvqoomwvo20/20/2024Humiliation, Afraid, Rape, and Kick questionnaireAnswerDate RecordedWithin the [...] relatives?Once a week11/12/2022How often do you attend jew or jew services?Never11/12/2022o you belong to any clubs or organizations such as jew groups, unions, fraternal or athletic groups, or school groups?No11/12/2022How often do you attend meetings of the clubs or organizations you belong to?Never11/12/2022re you , , , , never , or living with a partner?Wbvgyjy6411/12/2022 AUDIT-CAnswerDate RecordedQ1: How often do you have [...] very hard 11/12/2022HQ-2AnswerDate RecordedPatient Health Questionnaire-2 Score0 03/27/2025[facility] [place] [facility] - Occupational Stress QuestionnaireAnswerDate [...] steady place to sleep or slept in [facility] career (including now)?No11/12/2022CommentsUnknown Sex and Gender InformationValueDate RecordedSex Assigned at BirthNot on file Legal XeuTanzqd29/15/2023 6:57 PM EDTGender IdentityNot on fileSexual OrientationNot on filedocumented as of this encounter Functional Status * AUDIT-C ScoreAnswerDate of TgurbgrdnpEwqsco007/20/2024 4:23 PM Lara Begum LPN * QuestionAnswerDate [...] 3:03 PM CHACHA LOPEZ Patient Health Questionnaire-2 Ehsfi375 3:03 PM CHACHA LOPEZ * If you checked off any problems on this questionnaire so far,QuestionAnswer Date of AssessmentAuthorHow difficult have these problems made it for you to do your work, take care of things at home, or get along with other people? Somewhat rdwidvrrl72/21/2025 9:48 AM CHACHA LOPEZ documented as of this encounter Plan of Treatment DateTypeDepartmentCare Team (Latest Contact Info)Howouiabusp14/17/2025 11:00 AM ESTOffice Visit [facility] [address] [facility] [address] [place] [address] Yossi Landers MD [address] [facility] [address] [place] [address] documented as of this encounter Procedures Procedure NamePriorityDate/TimeAssociated DiagnosisCommentsXR RIBS LEFT INCLUDE CHEST (MIN 3 VIEWS)11/20/2023 6:43 AM EDT documented in this encounter Results * XR RIBS LEFT INCLUDE CHEST (MIN 3 VIEWS) (11/20/2023 6:43 AM EDT)Anatomical RegionLateralityModalityRadiographic ImagingSpecimen (Source)Anatomical Location / LateralityCollection Method / VolumeCollection TimeReceived Time 11/20/2023 6:43 AM EDT Narrative 11/20/2023 6:46 AM EDT [facility] ?[address] ? [place] [address] ?XRay Report ? Signed ? Patient: DALES,ELGIN J ?MR#: [id number] ?? : 1940 ?Acct:[id number] ?? Age/Sex: 83 / F ?ADM Date: 05/30/24 ?? Loc: RAD ? Attending Misty LANDERS ? Ordering Physician: YOSSI LANDERS ?? Date of Service: 11/19/23 ?? Procedure(s): XR ribs LT min 3V w CXR1V ?? Accession Number(s): [id number] ? cc: YOSSI LANDERS ? [facility] ? [address] ? [place] [address] ? Patient Name: ?? ELGIN NORWOOD ? MRN: [id number]:[id number] ? date: 1940 ?Sex: F ?? Assigned Patient Location: RAD ?? Current Patient Location: ? Accession/Order Number: [id number] ?? Exam Date: 11/19/2023 ??13:28 ?Report Date: 11/20/2023 ??06:43 ? At the request of: ?? YOSSI ??JORDAN ? Procedure: ??XR ribs LT min 3V w CXR1V ? EXAMINATION: XR ribs LT min 3V w CXR1V ? HISTORY: Rib Pain Left Side R07.8 ; left lateral rib pain; no known injury ? COMPARISON: No relevant comparison available. ? FINDINGS: ?? LUNGS: No significant pulmonary parenchymal abnormalities. ?? PLEURA: No pneumothorax, effusion, or pleural thickening. ?? MEDIASTINUM: No visible mass or adenopathy. ?? CARDIAC: No cardiomegaly or cardiac silhouette abnormality. ?? RIBS: Normal. No significant arthropathy or acute abnormality. ?? OTHER: Negative. ? XR/XR ribs LT min 3V w CXR1V ?? IMPRESSION: ? 1. No suspicious cardiopulmonary process. ?? 2. No appreciable rib abnormality. ? Electronically authenticated by: WISAM ??AVILA ?? Date: 11/20/2023 ??06:43 ? Dictated By: ?Wisam Wagner M.D. ? Signed By: ?11/20/23 0646 ? DD/ 0643 ? TD/TT: ? Financial Supervisor: Procedure Note Radiology, Radiologist, MD - 11/20/[address] [address] XRay Report Signed Patient: ELGIN NORWOOD JMR#: [id number] : 2Acct:[id number] Age/Sex: 83 / FADM Date: 11/19/23 Loc: RAD Attending Dr: YOSSI LANDERS Ordering Physician: YOSSI LANDERS Date of Service: 11/19/23 Procedure(s): XR ribs LT min 3V w CXR1V Accession Number(s): [id number] cc: YOSSI LANDERS [place] [id number] Patient Name: ELGIN NORWOOD MRN: [id number] date: 1940 Sex: F Assigned Patient Location: [facility] Current Patient Location: Accession/Order Number: [id number] Exam Date: 11/19/2023 13:28 Report Date: 11/20/2023 [...] Wisam Wagner M.D. Signed By:11/20/2346 DD/ TD/TT: Financial Supervisor: Authorizing ProviderResult TypeResult StatusDanironi ROCHA XR PROCEDURES Final Result documented in this encounter Visit Diagnoses Not on filedocumented in this encounter Care Teams Team MemberRelationshipSpecialtyStart DateEnd Date Yossi Landers MD [address] [address] PCP - GeneralInternal Medicine11/03/22 Yossi Landers MD [address] [place] [address] PCP - [employer]11/20/22 Seble Mejia, CIPRIANO [address] [place] [address] Clinical AdvocateFamily Medicine Daniela Alvarado LPN [address] [facility] [address] [place] [address] 09/09/24documented as of this encounter
--- OUTSIDE RECORDS SUMMARY | 2025-04-29 12:53 | XMS_ITS | Clinical Summary ---
Author Organization [facility] Address [address] [place] [address] Care Team Providers Care Language Therapist Name Role Phone Yossi Landers MD Primary Care Provider [phone] Yossi Landers MD Unavailable [phone] Daniela Alvarado LPN Unavailable Allergies Active AllergyReactionsCriticalityNoted DateCommentsNaproxenSwellingMedium 12/13/2020 mario oral edema VbibrcwxptbQcrep89/10/2020Benztropine PgarnouvRewpamaikuvokjOvbwin52/10/2020 Pfmfwernc54/06/2024 Medications MedicationSigDispense QuantityRefillsLast FilledStart DateEnd DateStatus meclizine (Antivert) 12.5 MG tablet Take 12.5 mg by mouth 3 (three) times a day as needed for dizziness.09/10/2017 Active nitroglycerin (Nitrostat) 0.[address] 0.4 mg under the tongue every 5 (five) minutes if needed.Active Multiple Vitamins-Minerals (OCUVITE ADULT 50+ PO) Take by mouth 1 (one) time each day.Active albuterol HFA (ProAir HFA) 90 mcg/act inhaler Inhale 2 puffs every 4 (four) hours if needed.Active aspirin 81 MG EC tablet Take 81 mg by mouth 1 (one) time each day at the same time.Active Blood Glucose Monitoring Suppl (ONE TOUCH ULTRA 2) w/Device kit Inject under the skin 1 (one) time each day.11/05/2022ctive glucose blood (True Metrix Blood Glucose Test) test strip 1 each by Other route 1 (one) time each day at the same time.Active Lancets (OneTouch Delica Plus Gtlhmi41F) [facility] USE 1 LANCET TO TEST BLOOD SUGAR ONCE DAILY11/05/2022ctive nystatin (Mycostatin) ointment every 12 (twelve) hours.Active [employer] Stool Softener 100 MG capsule Take 100 mg by mouth in the morning and 100 mg before bedtime.4Active loratadine (Claritin) 10 MG tablet Indications:Allergic rhinitis, unspecifiedTake 1 tablet (10 mg) by mouth Daily 100 tablet 4Active gabapentin (Neurontin) 100 MG capsule Indications:Type 2 diabetes mellitus with diabetic neuropathy, without long-term current use of insulin (HCC)Take 2 capsules (200 mg) by mouth in the morning and 2 capsules (200 mg) before bedtime. 360 capsule 6Active polyethylene glycol, PEG, 3350 (Glycolax, Miralax) powder Indications:ConstipationTake 17 g by mouth Daily as needed (constipation) 5Active Owkueusbtzs-Dzcuyfgyt-Nmmtak (Trelegy Ellipta) 100-62.5-25 MCG/ACT aerosol powder Indications:Panlobular emphysema (HCC)Inhale 1 puff Daily 3 each 5Active calcium carbonate (Tums) 500 MG chewable tablet Chew 500 mg DailyActive memantine (Namenda) 10 MG tablet Indications:Cognitive impairmentTake 1 tablet (10 mg) by mouth in the morning and 1 tablet (10 mg) before bedtime. 60 tablet 5Active famotidine (Pepcid) 20 MG tablet Indications:Gastroesophageal reflux disease without esophagitisTAKE 1 TABLET BY MOUTH EVERY DAY 100 tablet 5Active levothyroxine (Synthroid, Levoxyl) 100 MCG tablet Indications:Acquired hypothyroidismTAKE 1 TABLET EVERY MORNING BEFORE A MEAL 90 tablet 5Active atorvastatin (Lipitor) 40 MG tablet Indications:Mixed hyperlipidemiaTAKE 1 TABLET EVERY MORNING 90 tablet 5Active lisinopril 5 MG tablet Indications:Essential hypertensionTAKE 1 TABLET EVERY MORNING 90 tablet 5Active DULoxetine (Cymbalta) [address] capsule Indications:Depression with anxietyTAKE 1 CAPSULE EVERY MORNING 90 capsule 5Active carvedilol (Coreg) 12.5 MG tablet Indications:Chronic combined systolic and diastolic congestive heart failure (HCC)TAKE 1 TABLET (12.5 MG) BY MOUTH IN THE MORNING AND 1 TABLET (12.5 MG) BEFORE BEDTIME. 180 tablet 5Active buPROPion XL (Wellbutrin XL) 150 MG 24 hr tablet Indications:Depression with anxietyTake 1 tablet (150 mg) by mouth in the morning. Do not crush, chew, or split. 30 tablet 1106Active torsemide (Demadex) 10 MG tablet Indications:Chronic combined systolic and diastolic congestive heart failure (HCC)Take 2 tablets (20 mg) by mouth Daily 100 tablet 5Active ALPRAZolam (Xanax) 0.25 MG tablet Indications:Depression with anxietyTake 1 tablet (0.25 mg) by mouth 3 (three) times a day as needed for anxiety 90 tablet /6Active HYDROcodone-acetaminophen (Orcas) 5-325 MG tablet Indications:Closed fracture of multiple ribs of right side, initial encounter Take 1 tablet by mouth every 6 (six) hours if needed for severe pain 120 tablet /5Active naloxone (Narcan) 4 mg/0.1 mL nasal spray Indications:Closed fracture of multiple ribs of right side, initial encounter Administer 1 spray (4 mg) into affected nostril(s) if needed for opioid reversal May repeat every 2-3 minutes if needed, alternating nostrils, until medical assistance becomes available. 2 each 6Active albuterol (2.5 MG/3ML) 0.083% nebulizer solution Indications:Panlobular emphysema (HCC)USE 1 VIAL PER NEBULIZER EVERY 8 HOURS IF NEEDED FOR WHEEZING OR SHORTNESS OF BREATH 150 mL 5Active albuterol (2.5 MG/3ML) 0.083% nebulizer solution Indications:Panlobular emphysema (HCC)Take 3 mL (2.5 mg) by nebulization every 8 (eight) hours if needed for wheezing or shortness of breath 150 mL 510/Discontinued HYDROcodone-acetaminophen (Orcas) 5-325 MG tablet Indications:Closed fracture of multiple ribs of right side, initial encounter Take 1 tablet by mouth every 6 (six) hours if needed for severe pain 120 tablet Discontinued(Reorder) ALPRAZolam (Xanax) 0.25 MG tablet Indications:Depression with anxietyTake 1 tablet (0.25 mg) by mouth 3 (three) times a day as needed for anxiety 90 tablet Discontinued(Reorder) methylPREDNISolone (Medrol Dospak) 4 MG tablets Indications:Cervical radiculitisFollow schedule on package instructions 21 tablet Discontinued Active Problems ProblemNoted DateDiagnosed DateMultiple closed fractures of ribs of both sides with routine gvtbhor7803/01/2025History of gastric kdjviko4801/18/2025ilateral lower extremity edema10/07/20248769Wtqfwwarntp15/14/2025ontusion of left knee 10/03/2024djustment disorder with depressed mood10/03/20249456Kcorws81/10/2025 Symptomatic /31/2024Sore cjdidc5910/26/2023bnormality of rectum 4Acquired ixoqcfpumpdoxy36/16/2023taxic gait11/04/2022ilateral carotid artery vmveepby49/16/6414Ozeffafmwbcvib86/16/2023hronic allergic gciipibw56/16/2023hronic diastolic congestive heart qdqloec4811/04/2022hronic idkgretjizjy30/16/2023oronary artery dkxkpdk8811/04/2022egenerative lumbar spinal edrjlwji64/16/2023epression with amzmbfu1511/04/2022iabetic renal disease 11/04/2022Essential lvvaoocfehlg06/16/2023Extrapyramidal oildpyq1011/04/2022 Exudative age-related macular lrrsdsbxyrbm84/16/2023astroesophageal reflux lzzrdys7611/04/2022Hypertensive heart disease with congestive heart failure and chronic kidney rrikhxy1711/04/2022LVH (left ventricular hypertrophy)11/04/2022 Cognitive xmcfegtpxd18/16/2023Mixed eugwqnejaycpei94/16/2023Moderate recurrent major dynqfuvpbt14/16/2023Multinodular qbjpgx5411/04/20220578Tcdxikhfkv09/16/2023 Nontoxic single thyroid ihuaqy6011/04/2022OAB (overactive bladder)11/04/2022 Obesity (BMI 30-39.9)11/04/2022eripheral vascular ulotbem6611/04/2022 Fsnxpngkqecfojhooc66/16/2023rimary osteoarthritis of left knee11/04/2022rimary osteoarthritis of right knee11/04/2022hronic obstructive pulmonary disease 11/04/2022ulmonary poxvkfqpq35/16/2023Type 2 diabetes mellitus with diabetic neuropathy, without long-term current use of osopeac6511/04/2022iabetic peripheral neuropathy associated with type 2 diabetes sddriqql60/04/2019Ataxia 10/23/20176004Hhefbtphgxrw97/09/2015 Resolved Problems ProblemNoted DateDiagnosed DateResolved DateMorbid gfryecg90 Former pootir26cute exacerbation of chronic obstructive pulmonary jarqsaf06hronic combined systolic and diastolic heart Encounters DateTypeDepartmentCare QfpuAzywkrrizqw53/04/2025Patient Outreach [facility] [address] [place] [address] Daniela Alvarado LPN 04/18/2025Telephone [facility] [address] [facility] [address] [place] [phone] Salud Roach PA 04/09/2025Refill [facility] [address] [place] [address] [place] [phone] Salud Roach PA Panlobular emphysema (HCC)04/07/2025 11:00 AM EDTOffice Visit [facility] [address] [place] [address] [place] [address] Yossi Landers MD Cervical radiculitis (Primary Dx); Closed fracture of multiple ribs of right side, initial encounter; Depression with bxxslgk4804/07/2025amboo flowsheet [facility] [address] [place] [address] [place] [address] Yossi Landers MD 04/07/20250467Zttjyv46/06/2025 3:00 PM EDTOffice Visit [facility] [address] [place] [address] [place] [address] Yossi Landers MD Cervical radiculitis (Primary Dx); Chronic combined systolic and diastolic congestive heart failure (HCC)03/27/2025 Bamboo flowsheet [facility] [address] [place] [address] [place] [address] Yossi Landers MD 03/27/20251075Sltikr29/18/2025Refill [facility] [address] [place] [address] [place] [address] Rosaura Thompson MD Depression with tuktxpn6903/06/2025[facility] [address] [place] [address] [place] [address] Yossi Landers MD Closed fracture of multiple ribs of right side, initial uzjdtqdls31/10/2025 10:00 AM EDTOffice Visit [facility] [address] [place] [address] [place] [address] Anne Sexton NP Chronic diastolic congestive heart failure (HCC) (Primary Dx); Closed fracture of multiple ribs with routine healing, unspecified laterality, subsequent zdhmxlesk39/10/2025Patient Outreach [facility] [address] [place] [address] Daniela Alvarado LPN 03/01/2025amboo flowsheet [facility] [address] [facility] [address] [place] [address] Anne Sexton NP 03/01/20254955Nlvtia89/04/2025 11:15 AM EDTOffice Visit [facility] [address] [place] [address] [place] [address] Yossi Landers MD Closed fracture of multiple ribs of right side, initial encounter (Primary Dx) 02/23/2025amboo flowsheet [facility] [address] [place] [address] [place] [address] Yossi Landers MD 02/23/20257782Jhqzfb33/02/2025Patient Outreach [facility] [address] [place] [address] Daniela Alvarado LPN 02/21/2025Patient Outreach [facility] [address] [place] [address] Dnaiela Alvarado LPN 02/21/2025bstract [facility] [address] [place] [address] Daniela Alvarado LPN 02/19/2025linisync Result Encounter [facility] External Department Unsolicited Provider, Generic External Data 02/15/2025Patient Outreach [facility] [address] [place] [address] Daniela Alvarado LPN 02/14/2025bstract [facility] [address] [place] [address] [place] [address] Yossi Landers MD 02/13/2025Patient Outreach [facility] [address] [place] [address] Daniela Alvarado LPN 02/09/2025Telephone [facility] [address] [place] [address] [place] [address] Yossi Landers MD 02/07/2025Patient Outreach [facility] [address] [place] [address] Daniela Alvarado LPN 02/06/2025Refill [facility] [address] [facility] [address] [place] [address] Salud Roach PA Depression with vbstszg3201/31/2025bstract [facility] [address] [place] [address] [place] [address] Yossi Landers MD 01/31/2025bstract [facility] [address] [place] [address] [place] [address] Yossi Landers MD 01/30/2025 2:15 PM EDTOffice Visit [facility] [address] [facility] [address] [place] [address] Yossi Landers MD COPD exacerbation (HCC) (Primary Dx); Panlobular emphysema (HCC); Depression with rynmmbb9201/30/20257934Ivwqop91/11/2025Patient Outreach [facility] [address] [place] [address] Daniela Alvarado LPN from Last 3 Months Immunizations ImmunizationAdministration DatesNext DuePneumococcal Conjugate PCV Pneumococcal Conjugate PCV Zoster, live11/28/2015,01/10/2015 Family History Medical HistoryRelationNameCommentsHeart diseaseBrotherCancerFatherCancerMother DiabetesMotherHeart diseaseMotherHeart failureMotherDiabetesSisterRelationName StatusCommentsBrotherFatherDeceasedMotherDeceasedSister Social History Tobacco UseTypesPacks/DayYears UsedDateSmoking Tobacco: FormerCigarettesQuit: 10/27/2012Smokeless Tobacco: Never Tobacco Cessation:Counseling Given: Yes Alcohol UseStandard Drinks/WeekCommentsNot Currently0 (1 standard drink = 0.6 oz pure alcohol)caffeine intake: 2-3 cups per day of cmvghcO2693 Health Literacy AnswerDate RecordedHow often do you need to have someone help you when you read instructions, pamphlets, or other written material from your doctor or pharmacy? Pzumhfjol63/20/2024Humiliation, Afraid, Rape, and Kick questionnaireAnswerDate RecordedWithin the [...] relatives?Once a week11/12/2022How often do you attend confucianist or voodoo services?Never11/12/2022o you belong to any clubs or organizations such as confucianist groups, unions, fraternal or athletic groups, or school groups?No11/12/2022How often do you attend meetings of the clubs or organizations you belong to?Never11/12/2022re you , , , , never , or living with a partner?Oiymplw4711/12/2022UDIT-C AnswerDate RecordedQ1: How often do you have [...] heating?Not very hard11/12/2022 PHQ-2AnswerDate RecordedPatient Health Questionnaire-2 Lkynk828[facility] [place] of Occupational Health - Occupational Stress QuestionnaireAnswerDate RecordedDo you feel stress - tense, restless, nervous, or anxious, or unable to sleep at night because yourmind is troubled all the time - these days?Not at all 11/12/2022Exercise Vital SignAnswerDate RecordedOn average, how many days per week do you engage in moderate to strenuous exercise (like a brisk walk)?0 days 11/12/2022On average, how many minutes do you engage [...] steady place to sleep or slept in [facility] (including now)?No11/12/2022CommentsUnknownSex and Gender InformationValueDate RecordedSex Assigned at BirthNot on fileLegal SexFemale 09/03/2022 6:57 PM EDTGender IdentityNot on fileSexual OrientationNot on file Last Filed Vital Signs Vital SignReadingTime TakenCommentsBlood Librjeua333/6604/07/2025 11:19 AM EDT Bugas8211 11:19 AM XCTUyrzbtoizbn29.1 ??C (96.9 ??F)01/30/2025 2:05 PM EDTRespiratory Jiqv2024 3:12 PM EDTOxygen Ypcfhbwurb30%04/07/2025 11:19 AM EDTInhaled Oxygen Concentration--Wkgaqr71.1 kg (192 lb)04/07/2025 11:19 AM RBKMwufof090.1 cm (5' 5 )04/07/2025 11:19 AM EDTBody Mass Index31.9504/07/2025 11:19 AM EDT Plan of Treatment DateTypeDepartmentCare Team (Latest Contact Info)Jzhsrkfegfk13/17/2025 11:00 AM ESTOffice Visit [facility] [address] [facility] [address] [place] [address] Yossi Landers MD [address] [facility] [address] [place] [address] Health MaintenanceDue DateLast DoneCommentsDiabetes: Retinopathy Screening /01/2019, 04/22/2018Diabetes: Hemoglobin A1C, 05/02/2024, 12/14/2023, Additional history existsDiabetes: Urine Protein Kinywxexd58/08/631490/OVID-19 Vaccine ( season)2025 09/16/2020, 08/25/2020Influenza Vaccine (#1)2025Pneumococcal Vaccine: 65+ SfzfbRvvoyrwin40/22/2025, 04/22/2018 Procedures Procedure NamePriorityDate/TimeAssociated DiagnosisCommentsT4, FREERoutine 03/01/2025 10:23 AM EDT Chronic combined systolic and diastolic congestive heart failure (HCC) JKAKhzfpfq39/10/2025 10:23 AM EDT Chronic combined systolic and diastolic congestive heart failure (HCC) LIPID TWEMAHusfzzi15/10/2025 10:23 AM EDT Chronic combined systolic and diastolic congestive heart failure (HCC) COMPREHENSIVE METABOLIC PZUAQQiktyzg41/10/2025 10:23 AM EDT Chronic combined systolic and diastolic congestive heart failure (HCC) CBC (INCLUDES DIFF/PLT)Qxxeelg2803/01/2025 10:23 AM EDT Chronic combined systolic and diastolic congestive heart failure (HCC) URINE CULTURE - GJSRBxxunfk48/31/2025 9:25 PM EDT POCT GLYCATED HEMOGLOBIN, UOLZFKskmwxq56/19/2025 10:11 AM EDT Type 2 diabetes mellitus with diabetic neuropathy, without long-term current use of insulin (HCC) MICROALBUMIN / CREATININE URINE QBCZAHsdczmo74/08/2024 2:10 PM EDT Routine general medical examination at [facility] care facility Type 2 diabetes mellitus with diabetic neuropathy, without long-term current use of insulin (HCC) COLOR FUNDUS PHOTOGRAPHY - OU - BOTH FBIXWzyncbh13/08/2019 12:00 PM EST from Last 3 Months or Most Recently Relevant to Health Maintenance Results * (ABNORMAL) CBC and differential (03/01/2025 10:23 AM EDT)ComponentValueRef RangeTest MethodAnalysis TimePerformed AtPathologist SignatureWHITE BLOOD CELL COUNT8.43.8 - 10.8 Thousand/uLQUESTRED BLOOD CELL COUNT3.923.80 - 5.10 Million/iQFCPSAAXDJSTORSD84.011.7 - 15.5 g/wYNGEBNPERKRYPCHM65.835.0 - 45.0 % GVDDIQLM96.480.0 - 100.0 mWQMTJGKWE20.627.0 - 33.0 oqQOXQABUEO32.7(L)32.0 - 36.0 g/dLQUESTComment: For adults, a slight decrease in the calculated MCHC value (in the range of 30 to 32 g/dL) is most likely not clinically significant; however, it should be interpreted with caution in correlation with other red cell parameters and the patient's clinical condition. RDW12.811.0 - 15.0 %QUESTPLATELET BYHKL095272 - 400 Thousand/wKSWLZKTRU55.97.5 - 12.5 fLQUESTABSOLUTE NEUTROPHILS5,5611,500 - 7,800 cells/uLQUESTABSOLUTE LYMPHOCYTES1,777084 - 3,900 cells/uLQUESTABSOLUTE DQIYXWEVU194090 - 950 cells/uL QUESTABSOLUTE AZFEOBALBQE43935 - 500 cells/uLQUESTABSOLUTE RCOZXGFUE829 - 200 cells/mSFORQXEDPLOSNZJKO56.2%TCFPUWCECYMKBGDE74.8%QUESTMONOCYTES8.7%QUEST EOSINOPHILS1.6%QUESTBASOPHILS0.7%QUESTSpecimen (Source)Anatomical Location / LateralityCollection Method / VolumeCollection TimeReceived TimeBloodVenous blood specimen / Yohwimt9703/01/2025 10:23 AM EDT03/01/2025 10:23 AM EDT Narrative [facility] - 03/02/2025 4:29 AM EDT FASTING:YES FASTING: YES Resulting Agency Comment Performing Organization Information ?Site ID: QPT ?Name: [facility] ?Address: [address] [place] [address] ?Director: Angel Conway MD Authorizing ProviderResult TypeResult StatusYossi OVIEDO BLOOD ORDERABLESFinal ResultPerforming OrganizationAddSharon Regional Medical Centerty/[facility] MurrayPhone Number [facility] * TSH (03/01/2025 10:23 AM EDT)ComponentValueRef RangeTest MethodAnalysis Time Performed AtPathologist SignatureTSH1.930.40 - 4.50 mIU/LQUESTSpecimen (Source)Anatomical Location / LateralityCollection Method / VolumeCollection TimeReceived TimeBloodVenous blood specimen / Wjacwzb0403/01/2025 10:23 AM EDT 03/01/2025 10:23 AM EDT Narrative [facility] - 03/02/2025 4:29 AM EDT FASTING:YES FASTING: YES Resulting Agency Comment Performing Organization Information ?Site ID: QPT ?Name: [facility] ?Address: [address] [place] [address] ?Director: Angel Conway MD Authorizing ProviderResult TypeResult StatusYossi OVIEDO BLOOD ORDERABLESFinal ResultPerforming OrganizationAddressty/[facility] CodePhone Number [facility] * T4, free (03/01/2025 10:23 AM EDT)ComponentValueRef RangeTest MethodAnalysis TimePerformed AtPathologist SignatureT4, FREE1.30.8 - 1.8 ng/dLQUESTSpecimen (Source)Anatomical Location / LateralityCollection Method / VolumeCollection TimeReceived TimeBloodVenous blood specimen / Cazgrfj9403/01/2025 10:23 AM EDT 03/01/2025 10:23 AM EDT Narrative [facility] - 03/02/2025 4:29 AM EDT FASTING:YES FASTING: YES Resulting Agency Comment Performing Organization Information ?Site ID: QPT ?Name: [facility] ?Address: [address] [place] [phone] ?Director: Angel Conway MD Authorizing ProviderResult TypeResult StatusDadavid Landers MDLAB BLOOD ORDERABLESFinal ResultPerforming OrganizationAddressCity/State/ZIP CodePhone Number [facility] * (ABNORMAL) Lipid panel (03/01/2025 10:23 AM EDT)ComponentValueRef RangeTest MethodAnalysis TimePerformed AtPathologist SignatureCHOLESTEROL, UEDTY544<200 mg/dLQUESTHDL JGZORLKFHHF19> OR = 50 mg/mZEVHTCWBTJEDPAGWJIH52<150 mg/dLQUEST LDL VLAJYFONUOW822(H)mg/dL (calc)QUESTComment: Reference range: <100 Desirable range <100 mg/dL for primary prevention; <70 mg/dL for patients with CHD or diabetic patients with > or = 2 CHD risk factors. LDL-C is now calculated using the Lan-Lety calculation, which is a validated novel method providing better accuracy than the Friedewald equation in the estimation of LDL-C. Lan CAMPBELL et al. HORACE. 2013;310(19): 6448-9373 (http://education.TASS.com/faq/XEY109) CHOL/HDLC RATIO3.0<5.0 (calc)QUESTNON HDL DGSNNEWZBBP264<130 mg/dL (calc)QUEST Comment: For patients with diabetes plus 1 major ASCVD risk factor, treating to a non-HDL-C goal of <100 mg/dL (LDL-C of <70 mg/dL) is considered a therapeutic option. Specimen (Source)Anatomical Location / LateralityCollection Method / Volume Collection TimeReceived TimeBloodVenous blood specimen / Uepjlue1303/01/2025 10:23 AM EDT03/01/2025 10:23 AM EDT Narrative [facility] - 03/02/2025 4:29 AM EDT FASTING:YES FASTING: YES Resulting Agency Comment Performing Organization Information ?Site ID: QPT ?Name: [facility] ?Address: [address] [place] [address], [address] [place] [phone] ?Director: Angel Conway MD Authorizing ProviderResult TypeResult StatusDadavid Landers MDLAB BLOOD ORDERABLESFinal ResultPerforming OrganizationAddressCity/State/ZIP CodePhone Number [facility] * (ABNORMAL) Comprehensive metabolic panel (03/01/2025 10:23 AM EDT)Component ValueRef RangeTest MethodAnalysis TimePerformed AtPathologist SignatureGlucose 101(H)65 - 99 mg/dLQUESTComment: ? Fasting reference interval For someone without known diabetes, a glucose value between 100 and 125 mg/dL is consistent with prediabetes and should be confirmed with a follow-up test. ZVZ613 - 25 mg/dLQUESTCreatinine0.700.60 - 0.95 mg/dZCNLOPDNTT12> OR = 60 mL/min/1.41i8USMPKUAA/CREATININE RATIOSEE NOTE: (calc)QUESTComment: ?? Not Reported: BUN and Creatinine are within ?? reference range. ? Vkfxdn242930 - 146 mmol/LQUESTPotassium, Bld3.63.5 - 5.3 mmol/AYBRMYPwishxvm0389 - 110 mmol/LQUESTCarbon Jyfvniv9306 - 32 mmol/LQUESTCalcium9.08.6 - 10.4 mg/dL QUESTPROTEIN, TOTAL5.7(L)6.1 - 8.1 g/dLQUESTALBUMIN3.4(L)3.6 - 5.1 g/dLQUEST GLOBULIN2.31.9 - 3.7 g/dL (calc)QUESTALBUMIN/GLOBULIN RATIO1.51.0 - 2.5 (calc) QUESTBILIRUBIN, TOTAL0.40.2 - 1.2 mg/dLQUESTALKALINE WNYCWCIBMQB3404 - 153 U/L AHVOMBJI53(H)10 - 35 U/LCGJVDSQO79(H)6 - 29 U/LQUESTSpecimen (Source)Anatomical Location / LateralityCollection Method / VolumeCollection TimeReceived TimeBlood Venous blood specimen / Yvixtde9803/01/2025 10:23 AM EDT03/01/2025 10:23 AM EDT Narrative [facility] - 03/02/2025 4:29 AM EDT FASTING:YES FASTING: YES Resulting Agency Comment Performing Organization Information ?Site ID: QPT ?Name: [facility] ?Address: [address] [place] [phone] ?Director: Angel Conway MD Authorizing ProviderResult TypeResult StatusDadavid Landers MDCLAY COUNTY MED[facility] BLOOD ORDERABLESFinal ResultPerforming OrganizationAddressCity/State/ZIP CodePhone Number [facility] * URINE CULTURE - [facility] (02/19/2025 9:25 PM EDT)ComponentValueRef RangeTest MethodAnalysis TimePerformed AtPathologist SignatureURINE CULTURE - [facility] ??Urine Culture - [facility] 20,000 colonies/ml mixed TBHURINE CULTURE - FRMCbacterial skin contaminantsTBHURINE CULTURE - [facility]2 Days TBHURINE CULTURE - FRMCTBHURINE CULTURE - FRMCTesting performed at [facility]TB[facility] C[facility] - [id number] [place] [address] TBHSpecimen (Source)Anatomical Location / LateralityCollection Method / Volume Collection TimeReceived Time02/19/2025 9:25 PM EDT02/19/2025 9:32 PM EDT Narrative [facility] - 02/22/2025 12:57 PM EDT Authorizing ProviderResult TypeResult StatusGeneric External Data ProviderLAB BLOOD ORDERABLESFinal ResultPerforming OrganizationAddressCity/State/ZIP Code Phone Number [facility] * POCT Glycated hemoglobin, total (09/07/2024 10:11 AM EDT)ComponentValueRef RangeTest MethodAnalysis TimePerformed AtPathologist SignatureHemoglobin A1C 5.9Specimen (Source)Anatomical Location / LateralityCollection Method / Volume Collection TimeReceived RcxwOyizo95/19/2025 10:11 AM EDT Narrative Authorizing ProviderResult TypeResult Antonio Landers MDPOINT OF CARE TEST ENTER/EDIT ORDERABLESFinal Result * Microalbumin / creatinine urine ratio (01/28/2024 2:10 PM EDT)ComponentValue Ref RangeTest MethodAnalysis TimePerformed AtPathologist SignatureCREATININE, RANDOM [id number] - 275 mg/dLQUESTALBUMIN, URINE0.7See Note: mg/dLQUESTComment: Reference Range: Reference Range Not established ALBUMIN/CREATININE RATIO, RANDOM URINE9<30 mg/g creatQUESTComment: The ADA defines abnormalities in albumin excretion as follows: Albuminuria Category ?Result (mg/g creatinine) Normal to Mildly increased <30 Moderately increased ? 30-299 Severely increased > OR = 300 The ADA recommends that at least two of three specimens collected within a 3-6 month period be abnormal before considering a patient to be within a diagnostic category. Specimen (Source)Anatomical Location / LateralityCollection Method / Volume Collection TimeReceived TimeUrineUrine specimen obtained by clean catch procedure / Mkmdcys8901/28/2024 2:10 PM EDT01/28/2024 2:10 PM EDT Narrative [facility] - 01/29/2024 12:29 PM EDT SPLIT 01/20/2024 FROM [id number] Resulting Agency Comment Performing Organization Information ?Site ID: [id number] ?Name: [facility] ?Address: [address] [place] [address], [address] [place] [id number] ?Director: Angel Conway MD Authorizing ProviderResult TypeResult StatusYossi Landers MDCLAY COUNTY MED[facility] URINE ORDERABLESFinal ResultPerforming OrganizationAddressCity/State/ZIP CodePhone Number [facility] * Color Fundus Photography - OU - Both Eyes (07/30/2018 12:00 PM EST)Anatomical RegionLateralityModalityHeadFundus PhotographySpecimen (Source)Anatomical Location / LateralityCollection Method / VolumeCollection TimeReceived Time 07/30/2018 12:00 PM EST Narrative 07/30/2018 12:00 PM EST PERFORMED AT [facility] LOCATION:[id number] No retinopathy Procedure Note CONVERSION, GENERIC - 11/05/2022 PERFORMED AT [facility] LOCATION:[id number] No retinopathy Authorizing ProviderResult TypeResult StatusDanironi Landers MDOPHTH PHOTOGRAPHY Final Result from Last 3 Months or Most Recently Relevant to Health Maintenance Insurance Care Teams Team MemberRelationshipSpecialtyStart DateEnd Date Yossi Landers MD [address] [facility] 110 [place] [address] PCP - GeneralInternal Medicine11/03/22 oYssi Landers MD [address] [facility] 110 [place] [address] PCP - [employer]11/20/22 Daniela Alvarado LPN [address] [facility] 110 [place] [address] 09/09/24
--- OUTSIDE RECORDS SUMMARY | 2025-04-29 12:53 | XMS_ITS | Encounter Summary ---
Author Organization [facility] Address [address] [facility] [place] [address] Care Team Providers Care Qa Auditor Name Role Phone Yossi Landers MD Primary Care Provider [phone] Yossi Landers MD Unavailable [phone] Seble Mejia RN Unavailable [phone] Daniela Alvarado LPN Unavailable Encounter Details DateTypeDepartmentCare Team (Latest Contact Info)Lcnrcgtayts06/11/2023Clinisync Result Encounter [facility] External Department Unsolicited Provider, Generic External Data Social History Tobacco UseTypesPacks/DayYears UsedDateSmoking Tobacco: FormerCigarettesQuit: 10/27/2012Smokeless Tobacco: NeverAlcohol UseStandard Drinks/WeekCommentsNot Currently0 (1 standard drink = 0.6 oz pure alcohol)B1300 Health LiteracyAnswer Date RecordedHow often do you need to have someone help you when you read instructions, pamphlets, or other written material from your doctor or pharmacy? Ukkhbwzag38/20/2024Humiliation, Afraid, Rape, and Kick questionnaireAnswerDate RecordedWithin the [...] relatives?Once a week11/12/2022How often do you attend episcopalian or zoroastrian services?Never11/12/2022o you belong to any clubs or organizations such as episcopalian groups, unions, fraTivix or athletic groups, or school groups?No11/12/2022How often do you attend meetings of the clubs or organizations you belong to?Never11/12/2022re you , , , , never , or living with a partner?Qfsgmxm9011/12/2022UDIT-C AnswerDate RecordedQ1: How often do you have [...] heating?Not very hard11/12/2022 PHQ-2AnswerDate RecordedPatient Health Questionnaire-2 Bwddf544Finhuntsman [facility] [place] of Occupational Health - Occupational Stress QuestionnaireAnswerDate [...] or suspected to have Co ronavirus/COVID-19?No / Jpxjrb1405/11/2023 9:57 AM ESTdocumented as of this encounter Functional Status * AUDIT-C ScoreAnswerDate of AwmmgcdwpsVdkxbi604/20/2024 4:23 PM Lara Begum LPN * QuestionAnswerDate [...] 3:03 PM CHACHA LOPEZ Patient Health Questionnaire-2 Bxokx274 3:03 PM CHACHA LOPEZ * If you checked off any problems on this questionnaire so far,QuestionAnswer Date of AssessmentAuthorHow difficult have these problems made it for you to do your work, take care of things at home, or get along with other people? Somewhat /21/2025 9:48 AM CHACHA LOPEZ documented as of this encounter Plan of Treatment DateTypeDepartmentCare Team (Latest Contact Info)Hfbnizxjgqq21/17/2025 11:00 AM ESTOffice Visit [facility] [address] [place] [address] [place] [address] Yossi Landers MD [address] [facility] 110 [place] [address] documented as of this encounter Procedures Procedure NamePriorityDate/TimeAssociated DiagnosisCommentsUS AQIZHMM5106/01/2023 10:38 AM EST documented in this encounter Results * US thyroid (06/01/2023 10:38 AM EST)Anatomical RegionLateralityModalityHead, NeckUltrasoundSpecimen (Source)Anatomical Location / LateralityCollection Method / VolumeCollection TimeReceived Time06/01/2023 10:38 AM EST Narrative 06/01/2023 10:40 AM EST [facility] ?[address] ? [place] [address] ? Ultrasound Report ? Signed ? Patient: Will,Elgin J ?MR#: [id number] ?? : 1940 ?Acct:[id number] ?? Age/Sex: 83 / F ?ADM Date: 12/11/23 ?? Loc: [place] ? Attending : Araceli Timmis M.D. ? Ordering Physician: Araceli Dominique M.D. ?? Date of Service: 06/01/23 ?? Procedure(s): US thyroid ?? Accession Number(s): [id number] ? cc: YOSSI LANDERS ; Araceli Dominique M.D. ? [facility] ? [address] ? [place] [address] ? Patient Name: ?? ELGIN NORWOOD ? MRN: [facility]:[id number] ? date: 1940 ?Sex: F ?? Assigned Patient Location: [place] ?? Current Patient Location: [place] ?? Accession/Order Number: [id number] ?? Exam Date: 06/01/2023 ??09:55 ?Report Date: [...] 2022 exam ? TI-RADS: [employer] [place] [employer] TI-RADS committee's white paper ?? recommendations for thyroid lesions classified as TR4 (moderately suspicious) ?? are listed below: ?? > 1.0 cm. Follow-up ultrasound in 1, 2, 3, and 5 years. > 1.5 cm. FNA. J. Am Nikunj Radiol 2017;14:587-595. ? Electronically authenticated by: CARLOS ??BARRIE ?? Date: 06/01/2023 ??10:38 ? Dictated By: ?Carlos Sood M.D. ? Signed By: ?06/01/230 ? DD/ 1038 ? TD/TT: ? Fuel Agent: Procedure Note Radiology, Radiologist, - 06/01/2023 [place] [address] Ultrasound Report Signed Patient: Elgin Norwood JMR#: [id number] : 1940cct:[id number] Age/Sex: 83 / FADM Date: 06/01/23 Loc: US Attending Dr: Araceli Dominique M.D. Ordering Physician: Araceli Dominique M.D. Date of Service: 06/01/23 Procedure(s): US thyroid Accession Number(s): [id number] cc: YOSSI LANDERS ; Araceli Dominique M.D. The [place] [id number] Patient Name: ELGIN NORWOOD MRN: [id number] date: 1940 Sex: F Assigned Patient Location: [place] Current Patient Location: [place] Accession/Order Number: [id number] Exam Date: 06/01/2023 09:55 Report Date: 06/01/2023 [...] May 2022 exam TI-RADS: [employer] [place] [employer] TI-RADS committee's white paper recommendations for thyroid lesions classified as TR4 (moderatelysuspicious) are listed below: > 1.0 cm. Follow-up ultrasound in 1, 2, 3, and 5 years. > 1.5 cm. FNA. J. Am Nikunj Radiol 2017;14:587-595. Electronically authenticated by: CARLOS SOOD Date: 06/01/2023 10:38 Dictated By: Carlos Sood M.D. Signed By:06/01/23 1040 DD/ 1038 TD/TT: Fuel Agent: Authorizing ProviderResult TypeResult StatusGeneric External Data ProviderIMG US PROCEDURESFinal Result documented in this encounter Visit Diagnoses Not on filedocumented in this encounter Care Teams Team MemberRelationshipSpecialtyStart DateEnd Date Yossi Landers MD [address] [address] PCP - GeneralInternal Medicine11/03/22 Yossi Landers MD [address] [facility] 110 [place] [address] PCP - [employer]11/20/22 Seble Mejia, CIPRIANO [address] [place] [address] Clinical AdvocateFamily Medicine Daniela Alvarado LPN [address] [facility] 110 [place] [address] 09/09/24documented as of this encounter
--- OUTSIDE RECORDS SUMMARY | 2025-04-29 12:53 | XMS_ITS | Encounter Summary ---
Author Organization [facility] Address [address] [place] [address] Care Team Providers Care Community Support Worker Name Role Phone Yossi Landers MD Primary Care Provider [phone] Yossi Landers MD Unavailable [phone] Daniela Alvarado LPN Unavailable Encounter Details DateTypeDepartmentCare Team (Latest Contact Info)Pzkyijiwzwc19/28/2025Telephone [facility] [place] [facility] [address] [facility] 110 [place] [address] Salud Roach, PHILIP [address] [facility] 110 [place] [address] Social History Tobacco UseTypesPacks/DayYears UsedDateSmoking Tobacco: FormerCigarettesQuit: 10/27/2012Smokeless Tobacco: NeverAlcohol UseStandard Drinks/WeekCommentsNot Currently0 (1 standard drink = 0.6 oz pure alcohol)caffeine intake: 2-3 cups per day of [id number] Health LiteracyAnswerDate RecordedHow often do you need to have someone help you when you read instructions, pamphlets, or other written material from your doctor or pharmacy?Vdfmujcvc54/20/2024Humiliation, Afraid, Rape, and Kick questionnaireAnswerDate RecordedWithin the last year, have you been afraid of your partner or ex-partner?No05/24/2023Within the last year, have you been humiliated [...] relatives?Once a week11/12/2022How often do you attend jainism or adventist services?Never11/12/2022o you belong to any clubs or organizations such as jainism groups, unions, fraternal or athletic groups, or school groups?No11/12/2022How often do you attend meetings of the clubs or organizations you belong to?Never11/12/2022re you , , , , never , or living with a partner?Vcorrwc4811/12/2022 AUDIT-CAnswerDate RecordedQ1: How often do you have [...] very hard 11/12/2022HQ-2AnswerDate RecordedPatient Health Questionnaire-2 Score0 03/27/2025[facility] [place] of Occupational Health - Occupational Stress QuestionnaireAnswerDate [...] steady place to sleep or slept in [facility] (including now)?No11/12/2022CommentsUnknown Sex and Gender InformationValueDate RecordedSex Assigned at BirthNot on file Legal PfyBxhkzs26/15/2023 6:57 PM EDTGender IdentityNot on fileSexual OrientationNot on filedocumented as of this encounter Miscellaneous Notes * Telephone Encounter - CHACHA ADDISON - 04/18/2025 3:04 PM EDT Patient's daughter in law (Moni) was notified * Telephone Encounter - PHILIP Magallanes - 04/18/2025 1:01 PM EDT Patient can take an additional 1-2 Tylenol Arthritis Strength throughout the day. This will keep her well below the daily max for Tylenol. * Telephone Encounter - Chelita Hurst LPN - 04/18/2025 10:15 AM EDT Pt's cmnwijze-sq-izt, Moni, called asking if it would be ok for pt to take extra strength tylenol in between her hydrocodone doses. She takes hydrocodone 5/325 - 1 every 6 hours. documented in this encounter Plan of Treatment DateTypeDepartmentCare Team (Latest Contact Info)Frcrievstaf63/17/2025 11:00 AM ESTOffice Visit [facility] [place] [address] [facility] [address] [place] [address] Yossi Landers MD [address] [facility] [address] [place] [address] documented as of this encounter Visit Diagnoses Not on filedocumented in this encounter Care Teams Team MemberRelationshipSpecialtyStart DateEnd Date Yossi Landers MD [address] [facility] [address] [place] [address] PCP - GeneralInternal Medicine11/03/22 Yossi Landers MD [address] [facility] [address] [place] [address] PCP - [employer]11/20/22 Daniela Alvarado LPN [address] [facility] [address] [place] [address] 09/09/24documented as of this encounter
--- OUTSIDE RECORDS SUMMARY | 2025-04-29 12:53 | XMS_ITS | CCD ---
Author Organization [facility] Care Team Providers Care Windows Application Packager Name Role Phone Unavailable Unavailable Libra, Dr. [...] Attending Unavailable CAILIN, DR TERRAZAS Admitting Unavailable ZIEBJASPER, DR AMAYA [employer] Consulting Unavailable CAILIN, DR TERRAZAS Consulting Unavailable CAILIN, DR TERRAZAS Primary Care Unavailable CAILIN, DR TERRAZAS Attending Unavailable CAILIN, DR TERRAZAS Admitting Unavailable BARRIE, DR CARLOS Mcghee Consulting Unavailable ISIAHSBEL Consulting Unavailable CAILIN, DR TERRAZAS Primary Care Unavailable SANJEEVMISBEL Attending Unavailable TIMMIS, BEL Admitting Unavailable ZIEBER, DR AMAYA [employer] Consulting Unavailable TIMRUDYSBLE Consulting Unavailable CAILIN, DR TERRAZAS Primary Care [...] DR YOSSI LANDERS Primary Care Unavailable DUANE GARCIA Consulting Unavailable AMAYA FRENCH Consulting Unavailable VIKY WILLIAMSON Consulting Unavailable REED YLNNE Consulting Unavailable Yossi Landers MD Primary Care Provider Yossi Landers MD Unavailable YOSSI LANDERS Primary Care Physician Mandi Glez AAjith Attending Unavailable Mouchli, Mohamad A. Referring Unavailable Mouchli, Mohamad A. Admitting Unavailable Mouchli, Mohamad A. Attending Unavailable Mouchli, Mohamad A. Admitting Unavailable Mouchli, Mohamad A. Attending Unavailable MoEllen downingamad AAjith Referring Unavailable Roberto COTA, Seble Unavailable Yossi Landers II Primary Care Provider [phone] Elmer Greene DO Attending Provider Christiano SETH Daniela Unavailable Unavailable Yossi Landers II Primary Care Provider [phone] Elmer Greene DO Attending Provider [phone] Elías Graham MD Attending Provider Christiano SETH, Daniela Unavailable Duane Garcia MD Attending Provider Duane Garcia Attending Unavailable Duane Garcia Admitting Unavailable Elías Graham Attending Unavailable Elías Graham Admitting Unavailable Elmer Greene Admitting Unavailable Yossi Landers Primary Care Unavailable Elmer Greene Attending Unavailable BEL OJEDA Attending Unavailable ALESSANDRO LEVI Attending Unavailable YOSSI LANDERS Attending Unavailable KRISTEN WILLIAM Attending Unavailable CAILIN YOSSI B Referring Unavailable YOSSI LANDERS B Attending Unavailable YOSSI LANDERS B Attending Unavailable CAN MASON Attending Unavailable CAN MASON Attending Unavailable CAILIN YOSSI B Attending Unavailable YEN AUGUSTE Attending Unavailable CAILIN YOSSI B Attending Unavailable CAILIN YOSSI B Attending Unavailable CAILIN YOSSI B Attending Unavailable CAILIN YOSSI B Attending Unavailable ALESSANDRO LEVI A Attending Unavailable CAILIN YOSSI B Attending Unavailable CAILIN, YOSSI B Referring Unavailable LANDERS, YOSSI B Attending Unavailable YOSSI LANDERS Attending Unavailable YOSSI LANDERS Attending Unavailable ANNE SERRANO Attending Unavailable YOSSI LANDERS Attending Unavailable YOSSI LANDERS Attending Unavailable Seble Mejia RN Unavailable Allergies Allergy ClassificationReported Allergen(s)Allergy TypeDate of OnsetReaction(s) Facility (20 sources)Naproxen; Translations: [Aleve TABS]Drug Pjtsbwp54-33-8135Hfeyq (finding), Unknown (qualifier value), [facility] DO Work Phone: Comment on above:Gogo oral edema (7 sources)rofecoxib; Translations: [Vioxx]Drug AllergyAnaphylaxisAk[facility] (1 source)BenztropineDrug Ewfhmln23-42-3855Nus [facility] Repository (1 source)NaproxenDrug Mlxrlnq49-45-1625Ysc [facility] Repository (6 sources)Naproxen; Translations: [naproxen]Drug Swoxlrb04-58-2034[facility] Lip/Tongue/Throat, gogo oral edemaThe [facility] Repository (1 source)rofecoxibDrug Ggyubxx83-78-6463Nai [facility] Repository (20 sources)Benztropine; Translations: [benztropine]Drug Ysdwywf28-14-4496Llxqf, Hallucinations (finding), Unknown (qualifier value)[facility] Healthcare (20 sources)Benztropine; Translations: [Benztropine Mesylate]Drug Allergy 52-65-9480GbhwywvhzfjedpVRJI Healthcare Work Phone: Comment on above:Onset Date: 11/30/2019 (6 sources)rofecoxib; Translations: [rofecoxib]Drug Vtcckmq63-49-0948Evafunh (qualifier value)[facility] (20 sources)rofecoxibDrug Fpqzxxc20-93-6758Y[facility]SE [facility] Medications Current Medications MedicationDrug Class(es)DatesSig (Normalized)Sig (Original)acetaminophen 325 mg / HYDROcodone bitartrate 5 mg oral tablet (20 sources)Opioid AgonistStart: 02-23-2025 End: 84-63-0290zxqu 1 tablet by mouth every six hours for painHYDROcodone- acetaminophen ([place]) 5-325 MG tablet Indications: Closed fracture of multiple ribs of right side, initial encounter Take 1 tablet by mouth every 6 (six) hours if needed for severe pain 120 tablet 04/07/2025 05/07/2025 ActiveStart: 11-30-5293VXTBIwjihzr-acetaminophen ([place]) 5-325 MG tablet 02/21/2025 Active Start: 12-05-2024 End: 25-27-2899srnb 1 tablet by mouth every six hours for painHYDROcodone- acetaminophen ([place]) 7.5-325 MG tablet Indications: Degenerative lumbar spinal stenosis Take 1 tablet by mouth every 6 (six) hours if needed for severe pain 120 tablet 12/05/2024 01/04/2025 ActiveStart: 11-02-2024 End: 24-31-5662hpkl 1 tablet by mouth every six hours for painHYDROcodone- acetaminophen ([place]) 7.5-325 MG tablet Indications: Degenerative lumbar spinal stenosis Take 1 tablet by mouth every 6 (six) hours if needed for severe pain 120 tablet 11/02/2024 12/03/2024 Discontinued (Reorder)Start: 08-08-2024 End: 80-55-0542szti 1 tablet by mouth every six hours for painHYDROcodone- acetaminophen ([place]) 7.5-325 MG tablet Indications: Degenerative lumbar spinal stenosis Take 1 tablet by mouth every 6 (six) hours if needed for severe pain 120 tablet 09/05/2024 10/05/2024 ActiveStart: 06-01-2024 End: 84-74-7426kola 1 tablet by mouth every six hours for painHYDROcodone- acetaminophen ([place]) 7.5-325 MG tablet Indications: Degenerative lumbar spinal stenosis Take 1 tablet by mouth every 6 (six) hours if needed for severe pain 120 tablet 07/04/2024 08/06/2024 Discontinued (Reorder)Start: 99-43-1055viwr 1 tablet by mouth every six hours for painHYDROcodone-acetaminophen ([place]) 7.5- 325 MG tablet Indications: Degenerative lumbar spinal stenosis Take 1 tablet by mouth every 6 (six) hours if needed for severe pain 120 tablet 03/02/2024 Active Start: 01-28-2024 End: 90-28-1639zxxc 1 tablet by mouth every six hours for painHYDROcodone- acetaminophen ([place]) 7.5-325 MG tablet Indications: Degenerative lumbar spinal stenosis Take 1 tablet by mouth every 6 (six) hours if needed for severe pain 120 tablet 06/01/2024 07/01/2024 ActiveStart: 07-01-2023 End: 92-67-6715gknd 1 tablet by mouth every six hours for painHYDROcodone- acetaminophen ([place]) 7.5-325 MG tablet Indications: Degenerative lumbar spinal stenosis Take 1 tablet by mouth every 6 (six) hours if needed for severe pain 120 tablet 0 08/03/2023 ActiveStart: 89-17-5902iabc 1 tablet by mouth three times daily as needed for painHYDROcodone-Acetaminophen 7.5-325 MG Oral Tablet TAKE 1 TABLET 3 TIMES DAILY NEEDED FOR PAIN. Quantity: 0 Refills: 0 Ordered: 14-Oct-2021 DO Start : 14-Oct-2021 ActiveStart: 67-82-9780lmsk 1 tablet by mouth every six hours as needed for painalbuterol 0.83 mg/ml inhalation solution (20 sources)beta2-Adrenergic AgonistStart: 09-29-2024 End: 71-81-6678yllfxrkkb (2.5 MG/3ML) 0.083% nebulizer solution Indications: Panlobular emphysema (HCC) Take 3 mL (2.5 mg) by nebulization every 8 (eight) hours if needed for wheezing or shortness of breath 150 mL 5 09/29/2024 Active Start: 92-52-2618rhnw 2.5 mg by inhalation every six hours as neededalbuterol 0.083% Inh Sabrina 3 mL 2.5 mg, 3 mL, Inhalation, q6hr Shortness of breath or wheezing, Refill(s) 12, Q6H and PRN Start Date: 12/21/23 Status: OrderedStart: 40-75-3079fvwb 2.5 mg by inhalation three times dailytake 2 puff(s) by inhalation every four hoursalbuterol HFA (ProAir HFA) 90 mcg/act inhaler Inhale 2 puffs every 4 (four) hours if needed. ActiveAlbuterol (Eqv-ProAir HFA) 90 mcg/inh inhalation aerosol (3 sources)Start: 50-27-2705vwej 1 puff(s) by inhalation every six hours Albuterol (Eqv-ProAir HFA) 90 mcg/inh inhalation aerosol puff(s), Inhalation, q6hr, Refill(s) 0, Shortness of breath or wheezing Start Date: 12/21/23 Status: OrderedStart: 78-82-1755aetf 1 puff(s) by inhalation every six hoursAlbuterol (Eqv-ProAir HFA) 90 mcg/inh inhalation aerosol puff(s), Inhalation, q6hr, Refill(s) 0 Start Date: 12/21/23 Status: OrderedALPRAZolam 0.25 mg oral tablet (20 sources)BenzodiazepineStart: 09-07-2024 End: 79-94-8119efqv 1 tablet by mouth three times daily as needed for anxiety ALPRAZolam (Xanax) 0.25 MG tablet Indications: Depression with anxiety Take 1 tablet (0.25 mg) by mouth 3 (three) times a day as needed for anxiety 90 tablet 3 04/07/2025 08/05/2025 ActiveStart: 08-08-2024 End: 62-20-5260nmrr 1 tablet by mouth twice daily as needed for anxiety ALPRAZolam (Xanax) 0.25 MG tablet Indications: Depression with anxiety Take 1 tablet (0.25 mg) by mouth 2 (two) times a day as needed for anxiety 60 tablet 08/08/2024 09/07/2024 ActiveStart: 06-01-2024 End: 97-75-3081luzm 1 tablet by mouth twice daily as needed for anxiety ALPRAZolam (Xanax) 0.25 MG tablet Indications: Depression with anxiety Take 1 tablet (0.25 mg) by mouth 2 (two) times a day as needed for anxiety 60 tablet 07/04/2024 08/06/2024 Discontinued (Reorder)Start: 85-18-6407nnvd 1 tablet by mouth twice daily as needed for anxietyALPRAZolam (Xanax) 0.25 MG tablet Indications: Depression with anxiety Take 1 tablet (0.25 mg) by mouth 2 (two) times a day as needed for anxiety 60 tablet 03/02/2024 ActiveStart: 01-28-2024 End: 29-50-7514fjda 1 tablet by mouth twice daily as needed for anxiety ALPRAZolam (Xanax) 0.25 MG tablet Indications: Depression with anxiety Take 1 tablet (0.25 mg) by mouth 2 (two) times a day as needed for anxiety 60 tablet 06/01/2024 07/01/2024 ActiveStart: 07-01-2023 End: 71-00-5015lzlm 1 tablet by mouth twice daily as needed for anxiety ALPRAZolam (Xanax) 0.25 MG tablet Indications: Depression with anxiety Take 1 tablet (0.25 mg) by mouth 2 (two) times a day as needed for anxiety 60 tablet 3 08/03/2023 ActiveStart: 02-01-9399iwji 1 tablet by mouth twice daily as needed for anxietyALPRAZolam 0.25 MG Oral Tablet TAKE 1 TABLET BY MOUTH TWICE DAILY NEEDED FOR ANXIETY Quantity: 60 Refills: 0 Ordered: 11-Oct-2021 DO Start : 07-Oct-2021 ActiveStart: 87-74-4754xkkr 1 tablet by mouth once daily as needed for anxietyaspirin 81 mg delayed release oral tablet (20 sources)Platelet Aggregation Inhibitor, Nonsteroidal Anti-inflammatory Drug Start: 43-07-9629fnlc 1 tablet by mouth once dailyatorvastatin 40 mg oral tablet (20 sources)HMG-CoA Reductase InhibitorStart: 06-29-2018 End: 04-61-6179tjrblftfoavx (Lipitor) 40 MG tablet Indications: Mixed hyperlipidemia TAKE 1 TABLET EVERY MORNING 90 tablet 3 01/09/2025 Active azithromycin 250 mg oral tablet (6 sources)Macrolide AntimicrobialStart: 10-07-2024 End: 06-97-7382hria 2 tablets by mouth once daily, then take 1 tablet by mouth once dailyazithromycin (Zithromax) 250 MG tablet Indications: Community acquired pneumonia, unspecified laterality Take 2 tablets (500 mg) by mouth Daily for 1 day, THEN 1 tablet (250 mg) Daily for 4 days. 6 tablet 10/07/2024 10/12/2024 ActiveStart: 09-27-2024 End: 24-78-7286fevirrjhzbzc (Zithromax) 250 MG tablet Take 250 mg by mouth Daily Take 500mg day 1 and then 250mg for 4 days 09/27/2024 10/02/2024 ActiveBlood Glucose Monitoring Suppl (ONE TOUCH ULTRA 2) w/Device kit (20 sources)Start: 78-25-1650Osnrc Glucose Monitoring Suppl (ONE TOUCH ULTRA 2) w/Device kit Inject under the skin 1 (one) time each day. 11/05/2022 Active Start: 77-22-3981Adekr Glucose Monitoring Suppl (ONE TOUCH ULTRA 2) w/Device kit Inject under the skin 1 (one) time each day. 0 11/05/2022 Activebrexpiprazole 2 mg oral tablet (10 sources)Atypical AntipsychoticStart: 11-24-2022 End: 40-31-3631tnat 1 tablet by mouth in the morningBrexpiprazole (Rexulti) 2 MG tablet Indications: Depression with anxiety Take 2 mg by mouth in the morning. 90 tablet 3 11/24/2022 11/24/2023 ActiveStart: 96-55-7785zjaj 1 tablet by mouth once dailyRexulti 2 MG Oral Tablet TAKE 1 TABLET BY MOUTH EVERY DAY FOR 90 DAYS Quantity: 90 Refills: 0 Ordered: 19-Aug-2021 DO Start : 17-Aug-2021 ActiveStart: 53-05-9836kzbc 1 tablet by mouth once qlzqu943 actuat budesonide 0.16 mg/actuat / formoterol fumarate 0.0048 mg/actuat / glycopyrrolate 0.009 mg/actuat metered dose inhaler (20 sources)Corticosteroid, beta2-Adrenergic AgonistStart: 05-02-2024 End: 12-84-8465vxpt 2 puff(s) by inhalation in the morning Qxcnmvm-Gksoswkfayv-Rigklyxfjc (Breztri Aerosphere) 160-9-4.8 MCG/ACT aerosol Indications: Panlobular emphysema (CMS/HCC) Inhale 2 puffs in the morning and 2 puffs before bedtime. 10.7 g 11 05/02/2024 09/29/2024 Tedgpvtexczq18 hr buPROPion hydrochloride 150 mg extended release oral tablet (20 sources)AminoketoneStart: 01-16-2025 End: 72-73-8156llka 1 tablet by mouth every twenty-four hours in the morning buPROPion XL (Wellbutrin XL) 150 MG 24 hr tablet Indications: Depression with anxiety Take 1 tablet(150 mg) by mouth in the morning. Do not crush, chew, or split. 30 tablet 11 01/16/2025 01/16/2026 ActiveStart: 01-25-2024 End: 97-54-1677laun 1 tablet by mouth every twelve hours in the morningbuPROPion (Zyban) 150 MG 12 hr tablet Indications: Depression with anxiety Take 1 tablet (150 mg) by mouth in the morning and 1 tablet (150 mg) before bedtime. 180 tablet 3 01/25/2024 06/10/2024 Discontinued (Ineffective)Start: 11-24-2022 End: 52-18-2630rjdm 1 tablet by mouth every twelve hours in the morningbuPROPion (Zyban) 150 MG 12 hr tablet Indications: Depression with anxiety Take 1 tablet (150 mg) by mouth in the morning and 1 tablet (150 mg) before bedtime. 180 tablet 3 11/24/2022 11/24/2023 ActiveStart: 10-00-0776njds 1 tablet by mouth twice dailybuPROPion HCl ER (Smoking Det) 150 MG Oral Tablet Extended Release 12 Hour TAKE 1 TABLET BY MOUTH TWICE A DAY Quantity: 180 Refills: 0 Ordered: 01-Aug-2021 DO Start : 01-May-2021 ActiveStart: 41-21-3368uqyn 1 tablet by mouth twice dailycalcium carbonate 500 mg chewable tablet (20 sources)calcium carbonate (Tums) 500 MG chewable tablet Chew 500 mg Daily Activecarvedilol 12.5 mg oral tablet (20 sources)alpha-Adrenergic Ana, beta-Adrenergic BlockerStart: 06-29-2018 End: 62-99-9339lybg 1 tablet by mouth in the morningcarvedilol (Coreg) 12.5 MG tablet Indications: Chronic 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 180 tablet 3 01/09/2025 Activeciprofloxacin 500 mg oral tablet (2 sources)Quinolone AntimicrobialStart: 06-10-2024 End: 07-51-2776uuha 1 tablet by mouth in the morningciprofloxacin (Cipro) 500 MG tablet Indications: COPD with acute exacerbation (CMS/HCC) , Acute cystitis without hematuria Take 1 tablet (500 mg) by mouth in the morning and 1 tablet (500 mg) before bedtime. Do all this for 7 days. 14 tablet 06/10/2024 06/17/2024 Activedocusate sodium 100 mg oral capsule (20 sources)Start: 41-12-3287fxyk 1 capsule by mouth in the morningCVS Stool Softener 100 MG capsule Take 100 mg by mouth in the morning and 100 mg before bedtime. 08/03/2023 ActiveDULoxetine 60 mg delayed release oral capsule (20 sources)Serotonin and Norepinephrine Reuptake InhibitorStart: 12-16-2023 End: 10-00-7982OPYadjfqyp (Cymbalta) [address] capsule Indications: Depression with anxiety TAKE 1 CAPSULE EVERY MORNING 90 capsule 3 01/09/2025 ActiveStart: 11-24-2022 End: 11-88-9804lyle 1 capsule by mouth in the morningDULoxetine (Cymbalta) [address] capsule Indications: Depression with anxiety Take 1 capsule (60 mg) by mouth in the morning. 90 capsule 3 11/24/2022 11/24/2023 ActiveStart: 88-33-8375cjax 1 capsule by mouth once dailyDULoxetine HCl - 60 MG Oral Capsule Delayed Release Particles TAKE 1 CAPSULE BY MOUTH EVERY DAY Quantity: 90 Refills: 0 Ordered: 30-Jul-2021 DO Start : 30-Jul-2021 Activeduloxetine 60 mg Cap-DR (3 sources)Start: 73-19-6916ajwknyicuq 60 mg Cap-DR Oral, BID, Refills(s) 0, Depression Start Date: 12/21/23 Status: OrderedStart: 78-29-8602yuyqrnvfcd 60 mg Cap-DR Oral, Refills(s) 0 Start Date: 12/21/23 Status: Orderedeye vitamin supplement (Ocuvite Eye Health Formula) capsule (2 sources)take 1 capsule by mouth in the morningeye vitamin supplement (Ocuvite Eye Health Formula) capsule Take 1 capsule by mouth in the morning.0 Active famotidine 20 mg oral tablet (20 sources)Histamine-2 Receptor AntagonistStart: 83-58-5697gwbk 1 tablet by mouth once dailyfamotidine (Pepcid) 20 MG tablet Indications: Gastroesophageal reflux disease without esophagitis TAKE 1 TABLET BY MOUTH EVERY DAY 100 tablet 3 12/12/2024 ActiveStart: 55-93-4848whnz 1 tablet by mouth once dailyfamotidine (Pepcid) 20 MG tablet Indications: Gastroesophageal reflux disease without esophagitis Take 1 tablet (20 mg) by mouth Daily 30 tablet 2 10/21/2024 Active Start: 10-26-2023 End: 21-66-1377qwqf 1 tablet by mouth at bedtimefamotidine (Pepcid) 20 MG tablet Indications: Sore throat TAKE 1 TABLET BY MOUTH AT BEDTIME 90 tablet 2024 10/07/2024 Discontinuedfluticasone propionate 0.05 mg/actuat metered dose nasal spray (2 sources)CorticosteroidStart: 11-24-2022 End: 32-06-3336xqqk 1 spray(s) nasal route in the morningfluticasone (Flonase Allergy Relief) 50 MCG/ACT nasal spray Indications: Chronic allergic rhinitis A dminister 1 spray into each nostril in the morning. 16 g 11 11/24/2022 11/24/2023 Flotpe76 actuat fluticasone furoate 0.1 mg/actuat / umeclidinium 0.0625 mg/actuat / vilanterol 0.025 mg/actuat dry powder inhaler (20 sources)Anticholinergic, Corticosteroid, beta2-Adrenergic AgonistStart: 30-41-6679mytw 1 puff(s) by inhalation once uyicgZxsqdpofuzq-Ucartcsse-Sqzevy (Trelegy Ellipta) 100-62.5-25 MCG/ACT aerosol powder Indications: Panlobular emphysema (HCC) Inhale 1 puff Daily 3 each 3 08/24/2024 ActiveStart: 07-29-2024 take 1 puff(s) by inhalation once ddoyaWyxjipnlrmb-Jxrgekbqc-Ujusqu (Trelegy Ellipta) 100-62.5-25 MCG/ACT aerosol powder Indications: Panlobular emphysema (CMS/HCC) Inhale 1 puff Daily 1 each 5 07/29/2024 Activefurosemide 40 mg oral tablet (20 sources)Loop DiureticStart: 27-98-6393qgtt 1 tablet by mouth once daily gabapentin 100 mg oral capsule (20 sources)Anti-epileptic AgentStart: 06-29-2018 End: 28-57-1413bdad 2 capsules by mouth in the morninggabapentin (Neurontin) 100 MG capsule Indications: Type 2 diabetes mellitus with diabetic neuropathy, without long-term current use of insulin (HCC) Take 2 capsules (200 mg) by mouth in the morning and 2 capsules (200 mg) before bedtime. 360 capsule 3 07/05/2024 07/05/2025 ActiveglyBURIDE 2.5 mg oral tablet (3 sources)SulfonylureaStart: 95-77-3178jsqz 1 tablet by mouth once daily ipratropium bromide 0.042 mg/actuat metered dose nasal spray (2 sources)Anticholinergictake 2 spray(s) nasal route in the morning, then take 2 spray(s) nasal route in the evening, then take 2 spray(s) nasal route at bedtimeipratropium (Atrovent) 0.06 % nasal spray Administer 2 sprays into each nostril in the morning and 2 sprays in the evening and 2 sprays before bedtime. 0 Activelevothyroxine sodium 0.1 mg oral tablet (20 sources)l-ThyroxineStart: 40-73-1482beexzqqkvxrvd (Synthroid, Levoxyl) 100 MCG tablet Indications: Acquired hypothyroidism TAKE 1 TABLET EVERY MORNING BEFORE A MEAL 90 tablet 3 01/09/2025 ActiveStart: 52-39-5320omkj 1 tablet by mouth once dailylevothyroxine 100 mcg (0.1 mg) Tab mcg tab(s), Oral, Daily, Refills(s) 0, Thyroid Start Date: 12/21/23 Status: OrderedStart: 06-29-2018 End: 86-95-4430ekmzkrhqzyyjz (Synthroid, Levoxyl) 100 MCG tablet Indications: Acquired hypothyroidism TAKE 1 TABLET EVERY MORNING BEFORE A MEAL 90 tablet 3 01/09/2025 Activelinaclotide 0.29 mg oral capsule (20 sources)Guanylate Cyclase-C AgonistStart: 12-21-2023 End: 26-34-2023bqavWIIkonb (Linzess) 290 MCG capsule Take by mouth 12/21/2023 10/07/2024 DiscontinuedStart: 89-04-3571izsu 1 ug by mouth once dailyLinzess 290 mcg oral capsule mcg cap(s), Oral, Daily, Refills(s) 0, Constipation Start Date: 12/21/23Status: OrderedStart: 76-36-4795mgva 1 capsule by mouth once daily Linzess 290 MCG Oral Capsule TAKE 1 CAPSULE BY MOUTH EVERY DAY FOR 90 DAYS Quantity: 90 Refills: 0 Ordered: 02-Jan-2022 DO Start : 02-Jan-2022 Active lisinopril 5 mg oral tablet (20 sources)Angiotensin Converting Enzyme InhibitorStart: 06-29-2018 End: 99-48-7312dbbtrpuccr 5 MG tablet Indications: Essential hypertension TAKE 1 TABLET EVERY MORNING 90 tablet 3 01/09/2025 Activeloratadine 10 mg oral tablet (20 sources)Start: 06-29-2018 End: 85-33-9414wqkb 1 tablet by mouth once dailyloratadine (Claritin) 10 MG tablet Indications: Allergic rhinitis, unspecified Take 1 tablet (10 mg) by mouth Daily 100 tablet 3 05/02/2024 Activeloratadine (Claritin) 5 mg split tablet (2 sources)Start: 72-48-0021kmof 2 tablets by mouth in the morningloratadine (Claritin) 5 mg split tablet Take 10 mg by mouth in the morning. 0 07/05/2022 Activemeclizine hydrochloride 12.5 mg oral tablet (20 sources)AntiemeticStart: 44-85-7776xidu 1 tablet by mouth three times daily as needed for dizzinessmeclizine (Antivert) 12.5 MG tablet Take 12.5 mg by mouth 3 (three) times a day as needed for dizziness. 09/10/2017 Activememantine hydrochloride 10 mg oral tablet (20 sources)I-ztciut-U-aspartate Receptor AntagonistStart: 11-29-2024 End: 84-20-1461dvlhccxot (Namenda Titration Pack) 28 x 5 MG & 21 x 10 MG tablet pack Indications: Cognitive impairment USE DIRECTED FOR FIRST MONTH. 147 each 1 11/29/2024 01/16/2025 Discontinued (Dose adjustment)Start: 11-29-2024 memantine (Namenda Titration Pack) 28 x 5 MG & 21 x 10 MG tablet pack Indications: Cognitive impairment USE DIRECTED FOR FIRST MONTH. 147 each 1 11/29/2024 ActiveStart: 11-07-2024 End: 53-32-2597csci 1 tablet by mouth in the morningmemantine (Namenda) 10 MG tablet Indications: Cognitive impairment Take 1 tablet (10 mg) by mouth in the morning and 1 tablet (10 mg) before bedtime. 60 tablet 5 12/06/2024 06/04/2025 ActiveStart: 11-07-2024 End: 81-81-4122pojiqltqb (Namenda Titration Pack) 28 x 5 MG & 21 x 10 MG tablet pack Indications: Cognitive impairment Use as directed for first month. 49 tablet 11/07/2024 12/07/2024 ActivemethylPREDNISolone (8 sources)CorticosteroidStart: 03-27-2025 End: 85-59-6410uocwxaKXBHQGMlugcv (Medrol Dospak) 4 MG tablets Indications: Cervical radiculitis Follow schedule on package instructions 21 tablet 03/27/2025 04/07/2025 DiscontinuedStart: 03-27-2025 End: 07-26-6290rajnxsNZSGHWYpmuob (Medrol Dospak) 4 MG tablets Indications: Cervical radiculitis Follow schedule on package instructions 21 tablet 03/27/2025 04/03/2025 ActiveStart: 01-25-2025 End: 27-37-1215jgyfdaNGSHRVHakrkj (Medrol Dospak) 4 MG tablets Indications: COPD exacerbation (HCC) Follow schedule on package instructions 21 tablet 01/25/2025 02/01/2025 ActiveStart: 06-10-2024 End: 20-58-8396wjkdntILXSROBxzxvj (Medrol Dospak) 4 MG tablets Indications: COPD with acute exacerbation (CMS/HCC)Follow schedule on package instructions 21 tablet 06/10/2024 06/17/2024 ActivemetOLazone 2.5 mg oral tablet (5 sources)Thiazide-like DiureticStart: 09-14-2024 End: 55-82-9994rgvn 1 tablet by mouth once dailymetOLazone (Zaroxolyn) 2.5 MG tablet Indications: 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) Take 1 tablet (2.5 mg) by mouth Daily for 7 days 7 tablet 09/14/2024 09/29/2024 Discontinued (Side effects)Multiple Vitamins-Minerals (OCUVITE ADULT 50+ PO) (20 sources)Multiple Vitamins-Minerals (OCUVITE ADULT 50+ PO) Take by mouth 1 (one) time each day. ActiveMultiple Vitamins-Minerals (OCUVITE ADULT 50+ PO) Take by mouth 1 (one) time each day. 0 Activemupirocin 0.02 mg/mg topical ointment (20 sources)RNA Synthetase Inhibitor AntibacterialStart: 79-05-4897rxwzrxzky (Bactroban) 2 % ointment 01/11/2024 Activenaloxone hydrochloride 40 mg/ml nasal spray (2 sources)Opioid AntagonistStart: 04-07-2025 End: 59-31-4956rggexocn (Narcan) 4 mg/0.1 mL nasal spray Indications: Closed fracture of multiple ribs of right side, initial encounter Administer 1 spray (4 mg) into affected nostril(s) if needed for opioid reversal May repeat every 2-3 minutes if needed, alternating nostrils, until medical assistance becomes lorna ilable. 2 each 04/07/2025 04/07/2026 Activenitroglycerin 0.4 mg sublingual tablet (20 sources)Nitrate VasodilatorStart: 43-10-5951nmiugaid 100 unt/mg topical ointment (20 sources)Polyene Antifungalnystatin (Mycostatin) ointment every 12 (twelve) hours. Activeondansetron 4 mg disintegrating oral tablet (20 sources)Serotonin-3 Receptor AntagonistStart: 10-14-2024 End: 79-58-8278kuor 1 tablet by mouth every eight hours as needed for nausea and vomiting and nausea and nauseaondansetron ODT (Zofran-ODT) 4 MG disintegrating tablet Indications: Nausea Take 1 tablet (4 mg) bymouth every 8 (eight) hours if needed for nausea or vomiting for up to 28 days 21 tablet 3 11/07/2024 12/05/2024 ActiveStart: 10-05-2024 End: 07-09-3412kvrr 1 tablet by mouth every eight hours as needed for nausea and vomiting and nausea and nauseaondansetron ODT (Zofran-ODT) 4 MG disintegrating tablet Indications: Nausea Take 1 tablet (4 mg) bymouth every 8 (eight) hours if needed for nausea or vomiting for up to 7 days 21 tablet 10/05/2024 10/12/2024 ActiveStart: 09-20-2024 End: 32-43-4235vdtl 1 tablet by mouth every six hours as needed for nausea and vomitingondansetron ODT (Zofran-ODT) 4 MG disintegrating tablet Take 4 mg by mouth every 6 (six) hours if needed for nausea or vomiting 09/20/2024 09/29/2024 Discontinued (Duplicate order)Start: 08-08-2024 End: 25-46-6019jiyx 2 tablets by mouth every eight hours as needed for nausea and vomiting and nausea and nauseaondansetron (Zofran) 4 MG tablet Indications: Nausea Take 2 tablets (8 mg) by mouth every 8 (eight)hours if needed for nausea or vomiting 60 tablet 1 09/08/2024 10/08/2024 ActiveStart: 07-05-2024 End: 99-09-1375zgao 2 tablets by mouth every eight hours as needed for nausea and vomiting and nausea and nauseaondansetron (Zofran) 4 MG tablet Indications: Nausea Take 2 tablets (8 mg) by mouth every 8 (eight)hours if needed for nausea or vomiting 60 tablet 1 07/05/2024 08/06/2024 Discontinued (Reorder)Start: 05-30-2024 End: 59-62-5083drdv 2 tablets by mouth every eight hours as needed for nausea and vomiting and nausea and nauseaondansetron (Zofran) 4 MG tablet Indications: Nausea Take 2 tablets (8 mg) by mouth every 8 (eight)hours if needed for nausea or vomiting 60 tablet 1 05/30/2024 06/29/2024 ActiveStart: 2024 End: 26-63-6900sezv 2 tablets by mouth every eight hours as needed for nausea and vomiting and nausea and nauseaondansetron (Zofran) 4 MG tablet Indications: Nausea Take 2 tablets (8 mg) by mouth every 8 (eight)hours if needed for nausea or vomiting 60 tablet 1 2024 05/27/2024 ActiveStart: 02-23-2024 End: 40-86-9836bypm 2 tablets by mouth every eight hours as needed for nausea and vomiting and nausea and nauseaondansetron (Zofran) 4 MG tablet Indications: Nausea Take 2 tablets (8 mg) by mouth every 8 (eight)hours if needed for nausea or vomiting 60 tablet 1 03/25/2024 04/24/2024 ActiveStart: 01-22-2024 End: 29-08-9074tzpa 2 tablets by mouth every eight hours as needed for nausea and vomiting and nausea and nauseaondansetron (Zofran) 4 MG tablet Indications: Nausea Take 2 tablets (8 mg) by mouth every 8 (eight)hours if needed for nausea or vomiting 60 tablet 1 01/22/2024 02/21/2024 ActiveMiralax (6 sources)Osmotic LaxativeStart: 65-51-5739vzag 1 g by mouth once dailyMiraLax gm, Oral, Daily, Refill(s) 0 Start Date: 12/21/23 Status: OrderedStart: 06-29-2018 End: 59-41-8399Wgfdlbjaeijj Glycols (20 sources)Start: 98-99-1813ohxe 17 g by mouth once daily as needed for constipationpolyethylene glycol, PEG, 3350 (Glycolax, Miralax) powder Indications: Constipation Take 17 g by mouth Daily as needed (constipation) 08/13/2024 Activemicroencapsulated potassium chloride 20 meq extended release oral tablet (7 sources)Start: 11-24-2022 End: 23-29-0933kbfy 1 tablet by mouth in the morning, then take 1 tablet by mouth in the evening, then take 1 tablet by mouth at bedtimepotassium chloride CR (KLOR-CON) 20 MEQ ER tablet Indications: 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) Take 1 tablet (20 mEq) by mouth in the morning and 1 tablet (20 mEq) in the evening and 1 tablet (20 mEq) before bedtime. 270 tablet 3 11/24/2022 11/24/2023 ActiveStart: 21-09-3050ljxr 1 tablet by mouth once dailyKlor-Con M20 20 MEQ Oral Tablet Extended Release TAKE 1 TABLET DAILY. Quantity: 0 Refills: 0 Ordered: 13-Sep-2021 DO Start : 13-Sep-2021 ActiveStart: 08-89-2675rrij 1 tablet by mouth once dailyKlor-Con M20 20 MEQ Oral Tablet Extended Release TAKE 1 TABLET DAILY. Quantity: 0 Refills: 0 Ordered : 13-Sep-2021 DO Start : 13-Sep-2021 ActivepredniSONE 10 mg oral tablet (6 sources)Start: 39-24-7731qhemxmHMUW (Deltasone) 10 MG tablet 01/11/2025 ActiveStart: 09-24-2024 End: 46-55-4081npsg 1 tablet by mouth in the morning, then take 1 tablet by mouth at bedtimepredniSONE (Deltasone) 20 MG tablet Take 20 mg by mouth in the morning and 20 mg before bedtime. 5 days. 09/24/2024 09/29/2024 Discontinued (Side effects)raNITIdine 150 mg oral tablet (3 sources)Histamine-2 Receptor AntagonistStart: 45-54-5070xfma 1 tablet by mouth once dailytorsemide 10 mg oral tablet (20 sources)Loop DiureticStart: 02-13-2025 End: 85-83-5728tree 2 tablets by mouth once dailytorsemide (Demadex) 10 MG tablet Indications: Chronic combined systolic and diastolic congestive heart failure (HCC) Take 2 tablets (20 mg) by mouth Daily 100 tablet 03/27/2025 Active Start: 01-16-2025 End: 39-92-7355xgmh 1.5 tablets by mouth once dailytorsemide (Demadex) 10 MG tablet Indications: Edema Take 1.5 tablets (15 mg) by mouth Daily 45 tablet 11 01/16/2025 01/30/2025 Discontinued (Therapy completed)Start: 10-07-2024 End: 28-99-6216hidx 1 tablet by mouth once dailytorsemide (Demadex) 10 MG tablet Indications: Chronic combined systolic and diastolic congestive heart failure (HCC) Take 1 tablet (10 mg) by mouth Daily 90 tablet 3 10/10/2024 01/16/2025 Discontinued (Reorder)Start: 09-07-2024 End: 61-93-0930xgbx 1 tablet by mouth once dailytorsemide (Demadex) 20 MG tablet Indications: 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) Take 1 tablet (20 mg) by mouth Daily 30 tablet 11 09/07/2024 10/07/2024 Discontinuedvilazodone hydrochloride 40 mg oral tablet (3 sources)Start: 32-16-6142eljy 1 tablet by mouth once daily Completed/Discontinued Medications MedicationDrug Class(es)DatesSig (Normalized)Sig (Original)ascorbic acid 113 mg / beta carotene 7160 mg / cuprous oxide 0.4 mg / dl-alpha tocopheryl acetate 100 unt / zinc oxide 17.4 mg oral tablet (5 sources)Vitamin COcuvite PreserVision TABS TAKE 1 TABLET DAILY. Quantity: 0 Refills: 0 Ordered: 15-Oct-2021 DO ActiveBlack Cohosh Extract (5 sources)Black Cohosh CAPS TAKE DIRECTED. Quantity: 0 Refills: 0 Ordered: 15-Oct-2021 DO Ieicme13 actuat fluticasone propionate 0.25 mg/actuat / salmeterol 0.05 mg/actuat dry powder inhaler (10 sources)Corticosteroid, beta2-Adrenergic AgonistStart: 37-16-3089kskm 1 puff(s) by mouth twice dailyAdvair Diskus 250-50 MCG/ACT Inhalation Aerosol Powder Breath Activated TAKE 1 PUFF BY MOUTH TWICE A DAY Quantity: 180 Refills: 0 Ordered: 29-Jul-2021 DO Start : 18-Oct-2020 ActiveStart: 80-97-3617qkci 1 puff(s) by inhalation twice dailyStart: 00-88-9498fayk 1 puff(s) by inhalation twice dailyFluticasone Propion-Salmeterol 250-50 mcg/dose blister with device Active 1 PUFF INHALATION Twice daily June 29, 2018 1:00amStart: 06-29-2018 take 1 puff(s) by inhalation twice dailyFluticasone Propion-Salmeterol 250-50 mcg/dose blister with device Active 1 PUFF INHALATION Twice daily June 29, 2018 12:00amtake 1 puff(s) by inhalation in the morningfluticasone-salmeterol (Advair Diskus) 250-50 MCG/DOSE diskus inhaler Inhale 1 puff in the morning and 1 puff before bedtime. 0 Activeomeprazole 40 mg delayed release oral capsule (20 sources)Proton Pump InhibitorStart: 12-16-2023 End: 33-99-8035bmeyicnntp (PriLOSEC) [address] capsule Indications: Gastroesophageal reflux disease without esophagitis TAKE 1 CAPSULE EVERY MORNING BEFORE A MEAL 90 capsule 3 01/09/2025 01/30/2025 Discontinued (Other)Start: 49-19-7547zbezdpouib (PriLOSEC) [address] capsule Indications: Gastroesophageal reflux disease without esophagitis TAKE 1 CAPSULE BY MOUTH EVERY DAY 30 MINUTES BEFORE MORNING MEAL FOR 30 DAYS 90 capsule 3 12/10/2022 Active1 ml triamcinolone acetonide 40 mg/ml prefilled syringe (4 sources)CorticosteroidStart: 09-29-2024 End: 39-57-8765gtupsuldskppx acetonide (Kenalog-40) injection 40 mgStart: 09-29-2024 End: 18-47-2265dcgeuz 40 mg by intramuscular injection once40 mg, Intramuscular, Once, On Leonor 09/29/24 at 1130, For 1 dose Problems Active Problems Problem ClassificationProblemDateDocumented DateEpisodic/ChronicAdjustment disorders (20 sources)Adjustment disorder with depressed mood; Translations: [Adjustment disorder with depressed mood]Onset: 727304-36-4341Uuvogzu Administrative/social admission (2 sources)Patient encounter status; Translations: [Other specified counseling] 15-61-1264EvtuldpfXmejdpmr reactions (1 source)Allergy status to other drugs, medicaments and biological substances status; Translations: [ALLERGYSTATUS OTH RX MED AND BIO SUBST]Onset: 10-23-2022 EpisodicAnxiety disorders (20 sources)Anxiety disorder, unspecified; Translations: [Mixed anxiety and depressive disorder]Onset: 270700-33-4904OevbzsjEmgszgg kidney disease (1 source)Chronic kidney disease, unspecified; Translations: [CHRONIC KIDNEY DISEASE UNSPECIFIED]Onset: 24-77-6066JrmlpqzRlmksgd obstructive pulmonary disease and bronchiectasis (20 sources)Chronic obstructive lung disease; Translations: [Chronic airway obstruction, not elsewhere classified]Onset: 07-16-2016 Resolved: 675018-55-0484UfubzfsDrbiayffdqyfj of surgical procedures or medical care (1 source)Postprocedural hypothyroidism; Translations: [POSTPROCEDURAL HYPOTHYROIDISM]Onset: 69-39-3765XigwcioJlqxqlzsmr heart failure; nonhypertensive (20 sources)Heart failure, unspecified; Translations: [Chronic combined systolic and diastolic heart failure]Onset: 04-30-2015 Resolved: 802817-98-0446PecjvzfHnkuqyjd atherosclerosis and other heart disease (20 sources)Disorder of coronary artery; Translations: [Coronary atherosclerosis of unspecified type of vessel,[place] or graft]Onset: 902999-30-1330 ChronicDelirium, dementia, and amnestic and other cognitive disorders (2 sources)Dementia; Translations: [Unspecified dementia without behavioral disturbance]38-14-1396MvqruvvRztgkptm mellitus with complications (20 sources)Type 2 diabetes mellitus with diabetic chronic kidney disease; Translations: [Type 2 diabetes mellitus with diabetic peripheral angiopathy without gangrene]Onset: 638850-05-3582SwdlshnBqosyfrt mellitus without complication (5 sources)Diabetes mellitus; Translations: [Diabetes mellitus without mention of complication, type II or unspecified type, not stated as uncontrolled]Chronic Disorders of lipid metabolism (20 sources)Hyperlipidemia; Translations: [Other and unspecified hyperlipidemia] Onset: 433521-28-9215JrspdurK Codes: Fall (2 sources)Unspecified fall, initial encounter; Translations: [Fall on same level from slipping, tripping and stumbling with subsequent striking against unspecified object, initial encounter]Onset: 16-50-8952NxrexytoRghohoswvn disorders (20 sources)Gastro-esophageal reflux disease without esophagitis; Translations: [Gastroesophageal reflux disease]Onset: 05-36-9060EolxxelVchlryvvr hypertension (20 sources)Hypertensive disorder; Translations: [Unspecified essential hypertension]Onset: 059348-20-4925XiepvtrUaciwiblvhzp with complications and secondary hypertension (20 sources)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 4 chronic kidney disease, or unspecified chronic kidney disease; Translations: [Hypertensive chronic kidney disease with stage 1 through stage 4 chronic kidney disease, or unspecified chronic kidney disease]Onset: 417403-16-7702IbcccmjVcnaooy and fatigue (4 sources)Asthenia; Translations: [Weakness]69-20-3545NpyscfcaCjvblgrzyw disorders (1 source)Hormone replacement therapy; Translations: [HORMONE REPLACEMENT THERAPY]Onset: 31-08-6677TshnamhrZsat disorders (20 sources)Recurrent major depressive episodes, moderate ; Translations: [Major depressive disorder, recurrent, moderate]Onset: 576928-01-4858MeurczoFfsq disorders (1 source)Mood disorders; Translations: [DEPRESSION UNSPECIFIED]Onset: 64-37-8572Mbblgol (6 sources)Pain in toe; Translations: [Tinea unguium]20-49-1670DxjlowsdChciicaec or stenosis of precerebral arteries (20 sources)Bilateral stenosis of carotid arteries; Translations: [Occlusion and stenosis of carotid artery without mention of cerebral infarction]Onset: 245050-53-5249ZfoixakRpeu wounds of head; neck; and trunk (5 sources)Laceration without foreign body of other part of head, initial encounter; Translations: [LAC W/O FBOTH PART HEAD INIT ENC]Onset: 08-24-2022 EpisodicOsteoarthritis (20 sources)Unspecified osteoarthritis, unspecified site; Translations: [Osteoarthritis of multiple joints ]Onset: 893163-49-9969YfxsyeoXsckq aftercare (1 source)jail (current) use of aspirin; Translations: [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]Onset: 03-56-2036JaowdrdeDdbcm aftercare (1 source)Other assisted (current) drug therapy; Translations: [OTH SENIOR INFORMATION SECURITY ENGINEER CURRENT DRUG THERAPY]Onset: 52-01-0882RmjkrzhtUacef aftercare (1 source)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; Translations: [ASSISTED USE OF INHALED STEROIDS]Onset: 88-27-2902IwtwqcqvVdtmg and ill-defined heart disease (20 sources)Left ventricular hypertrophy; Translations: [Cardiomegaly]Onset: 108576-68-0739RsgltzpTvmwq and ill-defined heart disease (20 sources)Cardiomegaly; Translations: [Cardiomegaly]Onset: 04-30-2015 11-06-0219DkbanvjUqoav circulatory disease (1 source)Peripheral vascular angioplasty status with implants and grafts; Translations: [PERIPH VASC ANGPLSTY STAT IMPL AND GFT]Onset: 17-24-5980Nwmarwc Other circulatory disease (4 sources)Other specified symptoms and signs involving the circulatory and respiratory systems; Translations:[OTH SPEC SX SIGNS INVLV CIRC RS]Onset: 43-42-6914EubzmhakRxtfn circulatory disease (1 source)Hypotension, unspecified; Translations: [HYPOTENSION UNSPECIFIED] Onset: 67-39-6823CkreguekLpgan circulatory disease (2 sources)Low blood pressure; Translations: [Other hypotension]01-09-2025 EpisodicOther diseases of bladder and urethra (20 sources)Overactive bladder; Translations: [Overactive bladder]Onset: 067863-36-7054BginytvNwhap diseases of veins and lymphatics (1 source)Lymphedema, not elsewhere classified; Translations: [LYMPHEDEMA NOT ELSEWHERE CLASSIFIED]Onset: 97-36-9529HawuluhSoupu diseases of veins and lymphatics (6 sources)Vascular insufficiency; Translations: [Venous insufficiency (chronic) (peripheral)]53-54-3049VarhmwjjXgmbr female genital disorders (2 sources)Vaginal discomfort; Translations: [Unspecified condition associated with female genital organs and menstrual cycle]52-30-0827CxawtwhqQawjk fractures (18 sources)Closed fracture of multiple ribs; Translations: [Multiple fractures of ribs, unspecified side, subsequent encounter for fracture with routine healing]Onset: 273420-46-2961ZwhccsidKcqww fractures (3 sources)Closed fracture of multiple right ribs; Translations: [Multiple fractures of ribs, right side, initial encounter for closed fracture]03-06-2025 EpisodicOther gastrointestinal disorders (1 source)Dysphagia; Translations: [Other dysphagia]Onset: 62-51-1296Vmkofqwn Other gastrointestinal disorders (3 sources)Esophageal rixvzytnd73-85-4852KgwhpulcMgnyl hereditary and degenerative nervous system conditions (20 sources)Impaired cognition; Translations: [Mild cognitive impairment, so stated]Onset: 516947-01-0167MjopxxfHzlyf lower respiratory disease (5 sources)Dyspnea; Translations: [Other respiratory abnormalities]EpisodicOther lower respiratory disease (1 source)Personal history of pneumonia (recurrent); Translations: [PERSONAL HX OF PNEUMONIA RECURRENT]Onset: 31-84-0214MjiwnumtHhous nervous system disorders (1 source)Encephalopathy, unspecified; Translations: [ENCEPHALOPATHY UNSPECIFIED]Onset: 29-16-9567MjgwzavPsbpr nervous system disorders (20 sources)Neuropathy; Translations: [Polyneuropathy, unspecified]Onset: 669712-57-4389KsftdbtPgqmi nutritional; endocrine; and metabolic disorders (5 sources)Severe obesity; Translations: [Morbid obesity]ChronicOther nutritional; endocrine; and metabolic disorders (20 sources)Body mass index 30+ - obesity; Translations: [Obesity, unspecified] Onset: 244780-11-0130BmmjxnqLgxsk screening for suspected conditions (not mental disorders or infectious disease) (4 sources)Imaging of abdomen abnormal; Translations: [Abnormal findings on diagnostic imaging of other abdominal regions, including retroperitoneum]Onset: 42-33-5444WdyudzfvVdhjx upper respiratory disease (20 sources)Allergic rhinitis; Translations: [Allergic rhinitis, unspecified] Onset: 726085-72-6675HpkveleRige-; endo-; and myocarditis; cardiomyopathy (except that caused by tuberculosis or sexually transmitted disease) (20 sources)Cardiomyopathy; Translations: [Other primary cardiomyopathies]Onset: 457305-10-4865YbwuiubTgbuuxsegd and visceral atherosclerosis (20 sources)Peripheral vascular disease, unspecified; Translations: [Peripheral vascular disease]Onset: 071816-37-3764UsoyarhPiajypmgq (except that caused by tuberculosis or sexually transmitted disease) (5 sources)Pneumonia, unspecified organism; Translations: [Community acquired pneumonia]Onset: 987910-66-7435PkmloewjVmxjimok codes; unclassified (1 source)Hypersomnia; Translations: [Hypersomnia, unspecified]86-50-0168Cdbjeih Residual codes; unclassified (2 sources)Swelling - edema - symptom; Translations: [Edema]EpisodicResidual codes; unclassified (3 sources)Edema; Translations: [Edema]EpisodicResidual codes; unclassified (1 source)Acquired absence of both cervix and uterus; Translations: [ACQUIRED ABSENCE BOTH CERVIX AND UTERUS]Onset: 02-48-2347TfimqyljJzhcafic codes; unclassified (1 source)Other specified postprocedural states; Translations: [OTH SPECIFIED POSTPROCEDURAL STATES]Onset: 49-66-7354VuvdmtuzDoynccvv codes; unclassified (1 source)Family history of diabetes mellitus; Translations: [FAMILY HISTORY OF DIABETES MELLITUS]Onset: 66-93-1997RolxczjmGjvyeqsm codes; unclassified (1 source)Family history of ischemic heart disease and other diseases of the circulatory system; Translations: [FAM HX ISCHEMIC HRT DZ OTH DZ CIRC]Onset: 63-04-2339XnpbotggTlqdylap codes; unclassified (1 source)Family history of malignant neoplasm of ovary; Translations: [FAM HX MALIGNANT NEOPLASM OVARY]Onset: 72-45-9682RuivkjseOqkcolsu codes; unclassified (1 source)Past history of procedure; Translations: [Other specified postprocedural states]Onset: 33-79-6216IkkrwroiXtbqygs detachments; defects; vascular occlusion; and retinopathy (20 sources)Exudative age-related macular degeneration; Translations: [Exudative age-related macular degeneration, unspecified eye, stage unspecified]Onset: 256222-84-2375PynlyunTgmeioj disorders (20 sources)Hypothyroidism, unspecified; Translations: [Nontoxic multinodular goiter]Onset: 59-29-7811JpyppsiTmyxlyyroucq (1 source)CHRN KIDNEY DISEASE STG 3 UNSP; Translations: [CHRN KIDNEY DISEASE STG 3 UNSP]Onset: 86-17-7148Dexjflmupnea (1 source)CONTACT W/AND (SUSP) EXPOS COVID-19; Translations: [CONTACT W/AND (SUSP) EXPOS COVID-19]Onset: 80-20-1655Xgirlom tract infections (2 sources)Acute cystitis; Translations: [Acute cystitis without hematuria] 19-12-7579Hsynibma Past or Other Problems Problem ClassificationProblemDateDocumented DateEpisodic/ChronicAnal and rectal conditions (20 sources)Disorder of rectum; Translations: [Disease of anus and rectum, unspecified]Onset: 390022-34-5869OdwwkwvaKrmgeko tract disease (20 sources)Cholelithiasis without obstruction; Translations: [Calculus of gallbladder without cholecystitis without obstruction]Onset: 11-96-1717Tswsyxlb Fluid and electrolyte disorders (20 sources)Hyponatremia; Translations: [Hypo-osmolality and hyponatremia]Onset: 789101-33-9730FwqihkfeCwpzbx and vomiting (20 sources)Nausea; Translations: [Nausea]Onset: 086214-23-0661Wmzxfqph Other connective tissue disease (20 sources)Extrapyramidal sign; Translations: [Other symptoms and signs involving the nervous system]Onset: 26-27-887472761693-07-5959FtoinoqzAmifb connective tissue disease (2 sources)Pain of toes of bilateral feet; Translations: [Pain in right toe(s)] 08-40-7233PndezmsbBgnuv gastrointestinal disorders (20 sources)Chronic constipation; Translations: [Other constipation]Onset: 418983-48-4573MvcsdupmPksnb lower respiratory disease (1 source)Dyspnea, unspecified; Translations: [Dyspnea, unspecified]Onset: 93-30-3868LmwbohkiOzcxl nervous system disorders (20 sources)Ataxic gait; 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]Onset: EpisodicOther nervous system disorders (20 sources)Ataxia; Translations: [Ataxia, unspecified]Onset: 10-23-2017 96-97-2065OrfuukfdIknoe nervous system disorders (20 sources)Impaired cognition; Translations: [Other symptoms and signs involving cognitive functions and awareness]Onset: 481917-57-1048Irexienh Other nutritional; endocrine; and metabolic disorders (20 sources)Morbid obesity; Translations: [Morbid (severe) obesity due to excess calories]Onset: 07-04-2019 Resolved: 897141-16-8843JukmovuCnlqy skin disorders (4 sources)Localized swelling, mass and lump, neck; Translations: [LOCALIZED SWELLING MASS AND LUMP NECK]Onset: 43-78-0483MslsgewlTvktr skin disorders (2 sources)Thickened nails; Translations: [Onychogryphosis]35-69-5183Smtdworl Other upper respiratory infections (20 sources)Sore throat symptom; Translations: [Acute pharyngitis, unspecified] Onset: 456479-45-2022XatwcdumIlojqpfj codes; unclassified (20 sources)Bilateral lower limb edema; Translations: [Localized edema]Onset: 370666-06-0404UzfeuzqiZblxpvkfz and history of mental health and substance abuse codes (20 sources)Ex-smoker; Translations: [Personal history of tobacco use]Onset: 08-15-2017 Resolved: 790324-61-3099DgcqqlhvBwwyomo on above:quit 1996, 2ppd; Spondylosis; intervertebral disc disorders; other back problems (20 sources)Degenerative lumbar spinal stenosis; Translations: [Spinal stenosis, lumbar region without neurogenic claudication]Onset: 869817-48-8711 EpisodicSuperficial injury; contusion (20 sources)Contusion of left knee; Translations: [Contusion of left knee, initial encounter]Onset: 375816-76-6551Kdngjpie Results Test NameValueInterpretationReference RangeFacilityCBC (INCLUDES DIFF/PLT)on 81-99-6858Siutglvnz (Bld) [#/Vol]0.059 10*3/uLNormal0-200[facility] Comment on above:Performed By: #### 7600, 899, 6399, 40761 #### [facility] [place] [address] Credit Authorizer: Angel Conway MDBasophils/100 WBC (Bld)0.7 %NormalQuest DiagnosticsComment on above:Performed By: #### 7600, 899, 6399, 86897 #### [facility] [place] [address] Credit Authorizer: Angel Conway MDEosinophils (Bld) [#/Vol]0.134 10*3/uLNormal 15-500[facility] DiagnosticsComment on above:Performed By: #### 7600, 899, 6399, 26256 #### [facility] [place] [address] Credit Authorizer: Angel MOSQUEDAosinophils/100 WBC (Bld)1.6 %NormalQuest DiagnosticsComment on above:Performed By: #### 7600, 899, 6399, 84754 #### [facility] [place] [address] Credit Authorizer: Angel Conway MDErythrocyte distribution width (RBC) [Ratio] 12.8 %Rgiywa60.0-15.0[facility] DiagnosticsComment on above:Performed By: #### 7600, 899, 6399, 27806 #### [facility] of [address], [address] [place] [address] Credit Authorizer: Angel Conway MDHematocrit (Bld) [Volume fraction]37.8 %Normal 35.0-45.0[facility] DiagnosticsComment on above:Performed By: #### 7600, 899, 6399, 69528 #### [facility] of [address], [address] [place] [address] Credit Authorizer: Angel Conway MDHemoglobin (Bld) [Mass/Vol]12.0 g/dLNormal 11.7-15.5Quest DiagnosticsComment on above:Performed By: #### 7600, 899, 6399, 88456 #### [facility] [place] [address] Credit Authorizer: Angel Conway MDLymphocytes (Bld) [#/Vol]1.915 10*3/uLNormal 850-3900Quest DiagnosticsComment on above:Performed By: #### 7600, 899, 6399, 00372 #### [facility] [place] [address] Credit Authorizer: Angel Conway MDLymphocytes/100 WBC (Bld)22.8 %NormalQuest DiagnosticsComment on above:Performed By: #### 7600, 899, 6399, 21080 #### [facility] [place] [address] Credit Authorizer: Angel Conway MDMCH (RBC) [Entitic mass]30.6 umXxluuo35.0-33.0 Quest DiagnosticsComment on above:Performed By: #### 7600, 899, 6399, 64953 #### [facility] of [address], [address] [place] [address] Credit Authorizer: Angel Conway MDMCHC (RBC) [Mass/Vol]31.7 g/dLLow32.0-36.0 Quest DiagnosticsComment on above:Result Comment: For adults, a slight decrease in the calculated MCHC value (in the range of 30 to 32 g/dL) is most likely not clinically significant; however, it should be interpreted with caution in correlation with other red cell parameters and the patient's clinical condition.Performed By: #### 7600, 899, 6399, 53594 #### [facility] of [address], [address] [place] [address] Credit Authorizer: Angel DE LA CRUZCV (RBC) [Entitic vol]96.4 uNEfupso73.0-100.0 Quest DiagnosticsComment on above:Performed By: #### 7600, 89, 6399, 10044 #### [facility] [place] [address] Credit Authorizer: Angel Conway MDMonocytes (Bld) [#/Vol]0.731 10*3/uLNormal 200-950Quest DiagnosticsComment on above:Performed By: #### 7600, 89, 6399, 17945 #### [facility] [place] [address] Credit Authorizer: Angel DE LA CRUZonocytes/100 WBC (Bld)8.7 %NormalQuest DiagnosticsComment on above:Performed By: #### 7600, 89, 6399, 75377 #### [facility] of [address], [address] [place] [address] Credit Authorizer: Angel Conway MDNeutrophils (Bld) [#/Vol]5.561 10*3/uLNormal 1500-7800Quest DiagnosticsComment on above:Performed By: #### 7600, 89, 6399, 98298 #### [facility] of [address], [address] [place] [address] Credit Authorizer: Angel Conway MDNeutrophils/100 WBC (Bld)66.2 %NormalQuest DiagnosticsComment on above:Performed By: #### 7600, 899, 6399, 79659 #### [facility] of [address] , [address] [place] [address] Credit Authorizer: Angel Conway MDPlatelet mean volume (Bld) [Entitic vol]10.9 fLNormal7.5-12.5Quest DiagnosticsComment on above:Performed By: #### 7600, 899, 6399, 03686 #### [facility] of [place] [address] [place] , [address] [place] [address] Credit Authorizer: Angel Conway MDPlatelets (Bld) [#/Vol]238 10*3/uLNormal 140-400Quest DiagnosticsComment on above:Performed By: #### 7600, 899, 6399, 41917 #### [facility] of [address] , [address] [place] [address] Credit Authorizer: Angel Conway MDRBC (Bld) [#/Vol]3.92 10*6/uLNormal3.80-5.10 [facility] DiagnosticsComment on above:Performed By: #### 7600, 899, 6399, 32051 #### [facility] of [address] , [address] [place] [address] Credit Authorizer: Angel Conway MDWBC (Bld) [#/Vol]8.4 10*3/uLNormal3.8-10.8 [facility] DiagnosticsComment on above:Performed By: #### 7600, 899, 6399, 09409 #### [facility] [place] [address] [place] , [address] [place] [address] Credit Authorizer: Angel Conway MDCOMPREHENSIVE METABOLIC PANELon 03-02-2025 Albumin [Mass/Vol]3.4 g/dLLow3.6-5.1Quest DiagnosticsComment on above:Performed By: #### 7600, 899, 6399, 46486 #### [facility] of [address], [address] [place] [address] Credit Authorizer: Angel Conway MDAlbumin/Globulin [Mass ratio]1.5 {ratio}Normal 1.0-2.5Quest DiagnosticsComment on above:Performed By: #### 7600, 899, 6399, 70357 #### [facility] of [address], [address] [place] [address] Credit Authorizer: Angel Conway MDALP [Catalytic activity/Vol]83 U/JNpgewf46-152 [facility] DiagnosticsComment on above:Performed By: #### 7600, 899, 6399, 33977 #### [facility] of [address], [address] [place] [address] Credit Authorizer: Angel Conway MDALT [Catalytic activity/Vol]34 U/LHigh6-29 Quest DiagnosticsComment on above:Performed By: #### 7600, 899, 6399, 43604 #### [facility] of [address], [address] [place] [address] Credit Authorizer: Angel Conway MDAST [Catalytic activity/Vol]40 U/ZKusa68-32 [facility] DiagnosticsComment on above:Performed By: #### 7600, 899, 6399, 64737 #### [facility] of [address], [address] [place] [address] Credit Authorizer: Angel Conway MDBilirubin [Mass/Vol]0.4 mg/dLNormal0.2-1.2 Quest DiagnosticsComment on above:Performed By: #### 7600, 899, 6399, 84081 #### [facility] of [address], [address] [place] [address] Credit Authorizer: Angel Conway MDBUN/CREATININE RATIOSEE NOTE:Normal6-22Quest DiagnosticsComment on above:Result Comment: Not Reported: BUN and Creatinine are within reference range.Performed By: #### 7600, 899, 6399, 37459 #### [facility] of [address], [address] [place] [address] Credit Authorizer: Angel Conway MDCalcium [Mass/Vol]9.0 mg/dLNormal8.6-10.4Quest DiagnosticsComment on above:Performed By: #### 7600, 899, 6399, 12506 #### [facility] [place] [address] Credit Authorizer: Angel Conway MDChloride [Moles/Vol]99 mmol/SKtfxlm39-391Wzzmc DiagnosticsComment on above:Performed By: #### 7600, 899, 6399, 55661 #### [facility] [place] [address] Credit Authorizer: Angel Conway MDCO2 [Moles/Vol]27 mmol/HFxfoyq71-69Pkxgh DiagnosticsComment on above:Performed By: #### 7600, 899, 6399, 96597 #### [facility] [place] [address] Credit Authorizer: Angel SOTELOreatinine [Mass/Vol]0.70 mg/dLNormal0.60-0.95 Quest DiagnosticsComment on above:Performed By: #### 7600, 899, 6399, 78856 #### [facility] [place] [address] Credit Authorizer: Angel Conway MDGFR/1.73 sq M.predicted among non-blacks MDRD (S/P/Bld) [Vol rate/Area]86 mL/min/{1.73_m2}Normal> OR = 60[facility] Comment on above:Performed By: #### 7600, 899, 6399, 80464 #### [facility] [place] [address] Credit Authorizer: Angel Conway MDGlobulin (S) [Mass/Vol]2.3 g/dLNormal1.9-3.7 Quest DiagnosticsComment on above:Performed By: #### 0370, 899, 6399, 22250 #### [facility] of [place] [address] [place] [address] Credit Authorizer: Angel Conway MDGlucose [Mass/Vol]101 mg/fYWsyj02-66Ozmez DiagnosticsComment on above:Result Comment: Fasting reference interval For someone without known diabetes, a glucose value between 100 and 125 mg/dL is consistent with prediabetes and should be confirmed with a follow-up test.Performed By: #### 7600, 899, 6399, 78377 #### [facility] [place] [address] Credit Authorizer: Angel Conway MDPotassium [Moles/Vol]3.6 mmol/LNormal3.5-5.3 Quest DiagnosticsComment on above:Performed By: #### 7600, 899, 6399, 01886 #### [facility] [place] [address] Credit Authorizer: Angel Conway MDProtein [Mass/Vol]5.7 g/dLLow6.1-8.1Quest DiagnosticsComment on above:Performed By: #### 7600, 899, 6399, 13947 #### [facility] [place] [address] Credit Authorizer: Angel Conway MDSodium [Moles/Vol]136 mmol/XUatsxz163-619Sdymj DiagnosticsComment on above:Performed By: #### 7600, 899, 6399, 64938 #### [facility] [place] [address] Credit Authorizer: Angel Conway MDUrea nitrogen [Mass/Vol]13 mg/dLNormal7-25 [facility] DiagnosticsComment on above:Performed By: #### 7600, 899, 6399, 16267 #### [facility] [place] [address] Credit Authorizer: Angel Conway MDLIPID PANEL, STANDARDon 88-22-0313Dijpktnlcwb [Mass/Vol]194 mg/dLNormal<200Quest DiagnosticsComment on above:Order Comment: FASTING:YES FASTING: YESPerformed By: #### 7600, 899, 6399, 48364 #### [facility] [address], [address] [place] [address] Credit Authorizer: Angel SOTELOholesterol in HDL [Mass/Vol]65 mg/dLNormal> OR = 50Quest DiagnosticsComment on above:Order Comment: FASTING:YES FASTING: YESPerformed By: #### 7600, 899, 6399, 37276 #### [facility] [address], [address] [place] [address] Credit Authorizer: Angel SOTELOholesterol in LDL [Mass/Vol]112 mg/dLHigh Quest DiagnosticsComment on above:Order Comment: FASTING:YES FASTING: YESResult Comment: Reference range: <100 Desirable range <100 mg/dL for primary prevention; <70 mg/dL for patients with CHD or diabetic patients with > or = 2 CHD risk factors. LDL-C is now calculated using the Lan-Lety calculation, which is a validated novel method providing better accuracy than the Friedewald equation in the estimation of LDL-C. Lan SS et al. HORACE. 2013;310(19): 0396-0627 (http://education.dough/faq/CDJ777)Performed By: #### 7600, 899, 6399, 51195 #### [facility] [address], [address] [place] [address] Credit Authorizer: Angel Rivera.total/Cholesterol in HDL [Mass ratio]3.0 {ratio}Normal<5.0Quest DiagnosticsComment on above:Order Comment: FASTING:YES FASTING: YESPerformed By: #### 7600, 899, 6399, 31648 #### [facility] [address], [address] [place] [address] Credit Authorizer: Angel LONG HDL TXHLLPJEVNK141 mg/dL (calc)Normal<130 Quest DiagnosticsComment on above:Order Comment: FASTING:YES FASTING: YESResult Comment: For patients with diabetes plus 1 major ASCVD risk factor, treating to a non-HDL-C goal of <100 mg/dL (LDL-C of <70 mg/dL) is considered a therapeutic option.Performed By: #### 7600, 899, 6399, 14028 #### [facility] [address], [address] [place] [address] Credit Authorizer: Angel Conway MDTriglyceride [Mass/Vol]82 mg/dLNormal<150Quest DiagnosticsComment on above:Order Comment: FASTING:YES FASTING: YESPerformed By: #### 7600, 899, 6399, 82133 #### [facility] [place] [address] Credit Authorizer: Angel Conway MDT4, [facility] 74-33-4032Qjzo T4 [Mass/Vol]1.3 ng/dLNormal0.8-1.8Quest DiagnosticsComment on above:Performed By: #### 7600, 89, 6399, 27809 #### [facility] [place] [address] Credit Authorizer: Angel QUINONESsandeep 92-98-5117ABL Qn1.93 m[IU]/LNormal 0.40-4.50Quest DiagnosticsComment on above:Performed By: #### 7600, 899, 6399, 70739 #### [facility] [place] [address] Credit Authorizer: Angel Pepe Cultureon 79-52-8981Cljcjsrc identified Cx Nom (U)20,000 colonies/ml mixed bacterial skin contaminants 2 Days PERFORMED BY: [place] [address] PATHOLOGIST CUSTOMER SUPPORT SPECIALIST GEORGE ROMERO M.D.[facility] Physician GroupComment on above: Performed By: #### CUU #### [place] [address] USABASIC METABOLIC PANELon 43-98-0831Qzdpqtr [Mass/Vol]8.6 mg/dLNormal8.6-10.4Quest DiagnosticsComment on above:Performed By: #### 51055 #### [facility] [address], [address] [place] [address] Credit Authorizer: Angel Conway MDChloride [Moles/Vol]109 mmol/GRbrlmv47-837 [facility] DiagnosticsComment on above:Performed By: #### 04108 #### [facility] [address], [address] [place] [address] Credit Authorizer: Angel Conway MDCO2 [Moles/Vol]21 mmol/ZZaxrhe37-74Kfcfl DiagnosticsComment on above:Performed By: #### 67769 #### [facility] [address], [address] [place] [address] Credit Authorizer: Angel SOTELOreatinine [Mass/Vol]0.55 mg/dLLow0.60-0.95 Quest DiagnosticsComment on above:Performed By: #### 89610 #### [facility] [address], [address] [place] [address] Credit Authorizer: Angel Conway MDGFR/1.73 sq M.predicted among non-blacks MDRD (S/P/Bld) [Vol rate/Area]91 mL/min/{1.73_m2}Normal> OR = 60[facility] Comment on above:Performed By: #### 64895 #### [facility] [address], [address] [place] [address] Credit Authorizer: Angel Conway MDGlucose [Mass/Vol]116 mg/lGXxhe07-61Bjhxb DiagnosticsComment on above:Result Comment: Fasting reference interval For someone without known diabetes, a glucose value between 100 and 125 mg/dL is consistent with prediabetes and should be confirmed with a follow-up test.Performed By: #### 87365 #### [facility] [address], [address] [place] [address] Credit Authorizer: Angel Conway MDPotassium [Moles/Vol]3.6 mmol/LNormal3.5-5.3 [facility]osticsComment on above:Performed By: #### 71091 #### [facility] [address], [address] [place] [address] Credit Authorizer: Angel Conway MDSodium [Moles/Vol]140 mmol/IEknudd057-571Hvmkz DiagnosticsComment on above:Performed By: #### 51911 #### [facility] [address], [address] [place] [address] Credit Authorizer: Angel Conway MDUrea nitrogen [Mass/Vol]6 mg/dLLow7-25Quest DiagnosticsComment on above:Performed By: #### 22981 #### [facility] [address], [address] [place] [address] Credit Authorizer: Angel Conway MDUrea nitrogen/Creatinine [Mass ratio]11 mg/mg Normal6-Quest DiagnosticsComment on above:Performed By: #### 81725 #### [facility] [address], [address] [place] [address] Credit Authorizer: Angel Conway MDUrine Cultureon 83-13-9238Opcofpvp identified Cx Nom (U)50,000 colonies/ml mixed bacterial skin contaminants 2 Days PERFORMED BY: [place] [address] PATHOLOGIST CUSTOMER SUPPORT SPECIALIST TRACI MCDONNELL M.D.[facility] Physician GroupComment on above: Performed By: #### CUU #### [facility] [address] [place] [address] USAUrine Cultureon 70-32-6800Stkmwrii identified Cx Nom (U)No Growth 2 Days PERFORMED BY: [place] [address] PATHOLOGIST CUSTOMER SUPPORT SPECIALIST TRACI MCDONNELL M.D.[facility] Physician GroupComment on above: Performed By: #### CUU #### [facility] [address] [place], [place] [address]Urine cultureOrdered By: Elmer Greene on 04-31-1261Zvdmqwsz identified Cx Nom (U)Urine cultureRegency Hospital Cleveland EastUS Thyroid glandon 48-61-9200[place] [address] Ultrasound Report Signed Patient: JAQUELIN NORWOOD MR#: [id number] : 1940 Acct:[id number] Age/Sex: 84 / F ADM Date: 05/27/24 Loc: US Attending Dr: Bel Ojeda M.D. Ordering Physician: Bel Ojeda M.D. Date of Service: 05/27/24 Procedure(s): US thyroid Accession Number(s): [id number] cc: YOSSI LANDERS ; Bel Ojeda M.D. [place] [address] Patient Name: JAQUELIN NORWOOD MRN: [id number] date: 1940 Sex: F Assigned Patient Location: US Current Patient Location: Accession/Order Number: [id number] Exam Date: 05/27/2024 13:36 Report Date: 05/28/2024 06:22 At the request of: BEL OJEDA Procedure: US thyroid EXAMINATION: US thyroid HISTORY: [...] fine needle aspiration (FNA). Electronically authenticated by: AMAYA GRAMAJO Date: 05/28/2024 06:22 Dictated By: Amaya Gramajo M.D. Signed By: 05/28/24623 DD/ 1 TD/TT: Reformatory Attendant:NEHEMIASHRadiology, Radiologist, - 05/28/2024 [place] [address] Ultrasound Report Signed Patient: JAQUELIN NORWOOD MR#: [id number] : 1940 Acct:[id number] Age/Sex: 84 / F ADM Date: 05/27/24 Loc: US Attending Dr: Bel Ojeda M.D. Ordering Physician: Bel Ojeda M.D. Date of Service: 05/27/24 Procedure(s): US thyroid Accession Number(s): [id number] cc: YOSSI LANDERS ; Bel Ojeda M.D. [place] [id number] Patient Name: JAQUELIN NORWOOD MRN: [id number] date: 1940 Sex: F Assigned Patient Location: US Current Patient Location: Accession/Order Number: [id number] Exam Date: 05/27/2024 13:36 Report Date: 05/28/2024 06:22 At the request of: BEL OJEDA Procedure: US thyroid EXAMINATION: US thyroid HISTORY: [...] fine needle aspiration (FNA). Electronically authenticated by: AMAYA GRAMAJO Date: 05/28/2024 06:22 Dictated By: Amaya Gramajo M.D. Signed By: 05/28/24623 DD/ 1 TD/TT: Reformatory Attendant: [facility] HealthcareRadiology Study observation (narrative)[facility] HealthcareUS Thyroid glandOrdered By: Radiologist Radiology on 17-11-3392XGHS [employer] Work Phone: ca ECHO DOPPLER COMPLETEon 82-07-9636PphFort [place] [address] Cardiology Report Signed Patient: JAQUELIN NORWOOD MR#: [id number] : 1940 Acct:[id number] Age/Sex: 84 / F ADM Date: 05/27/24 Loc: CARD Attending Dr: YOSSI LANDERS Ordering Physician: YOSSI LANDERS Date of Service: 05/27/24 Procedure(s): CA echo doppler complete Accession Number(s): [id number] cc: YOSSI LANDERS Patient Name: JAQUELIN NORWOOD MR#: [id number] : 1940 Exam Date: 05/27/2024 Ordering Doctor: [...] by: Nataliya Olivares MD on 05/27/2024 at 1 (more content not included)... TBHRadiology, Radiologist, MD - 05/27/2024 [place] [address] Cardiology Report Signed Patient: JAQUELIN NORWOOD MR#: [id number] : 1940 Acct:[id number] Age/Sex: 84 / F ADM Date: 05/27/24 Loc: CARD Attending Dr: YOSSI LANDERS Ordering Physician: YOSSI LANDERS Date of Service: 05/27/24 Procedure(s): CA echo doppler complete Accession Number(s): [id number] cc: CAILINYOSSI Patient Name: JAQUELIN NORWOOD MR#: [id number] : 1940 Exam Date: 05/27/2024 Ordering Doctor: [...] M.D. Signed By: 05/27/241801 DD/ 00 TD/TT: Reformatory Attendant: [facility] HospitalRadiology Study observation (narrative)[facility] ECHO DOPPLER COMPLETEOrdered By: Radiologist Radiology on 52-32-6046UAQN [employer] Work Phone: Pulmonary function reporton 16-18-6222TPM Interpretation 84-year-old female referred by Dr. Landers [...] coexisting restrictive ventilatory defect. Clinical correlation is recommended.[facility] HEALTHulmonary function reportOrdered By: Kristen William on 89-40-9763TNSU [employer] Work Phone: pulmonary function reporton 52-82-3145Yczkhnzeg Study observation (narrative)[facility] HospitalLaboratory - Hematology and Cell countson 61-47-3678KzR7i (Bld) [Mass fraction]5.5 %Christian HospitalNo Panel Informationon 07-19-8505BOKE HealthcareSurgical Pathology Reporton 03-84-8075Pxnfucea Pathology Report[address] [address]- Surgical Pathology Report Collected Date/Time: 03/08/2024 10:15 EDT Pathologist: Meng Vyas MD Received Date/Time: 03/08/2024 11:54 EDT Mandi Glez MD, MD, Mandi Cohen Surgical Pathology Report - [...] is entirely submitted in one cassette. (DC) DC:[facility] Microscopic Description A&B: Microscopic examination performed unless gross only specified.Normal [facility] HospitalComment on above:Performed By: #### [id number] #### [facility] [address] [place], [place] [address]Rnys OR Intraoperative Recordon 45-60-0940Qjfj OR Intraoperative RecordMain OR Intraoperative Record IntraOp Document Type FT Summary Primary Physician: Mandi Glez MD Finalized Date/Time: 03/09/24 10:12:42 Pt. Name: JAQUELIN NORWOOD/Sex: 1940 Female Med Rec #: [id number] Physician: Mandi Glez MD Financial #: [id number] Pt. Type: O Room/Bed: / Admit/Disch: 03/08/24 08:18:50 - 03/08/24 23:59:59 Institution: Case Times FT Entry 1 Patient Times In Room 03/08/24 09:48:00 Out Room 03/08/24 10:16:00 Procedure Times Start 03/08/24 09:54:00 Stop 03/08/24 10:13:00 Anesthesia Times Start 03/08/24 09:48:00 Stop 03/08/24 10:16:00 Time at Cecum 03/08/24 10:03:00 Last Modified By: Tom COTA, Tammy 03/08/24 10:16:03 General Comments: 03/09/24 Chart opened to review and send charges LRoth CSFA Case Attendance FT Entry 1 Entry 2 Entry 3 Case Attendee Luciano Grace MD, MD, Mandi Santos RN, Tammy Role Performed Anesthesiologist of Surgeon - Primary Needle Process Felt Goods Supervisor - Primary Record Time In 03/08/24 09:48:00 [...] Out Sanjay VALDEZ, Luciano Leonard, Given Participants Mandi Glez MD, Tammy Santos RN, Schafer CST, Talia Bryant [...] and tissue Entry 1 Skin Integrity Intact, [place], Warm, & Skin Abnormality No Dry Outcomes [...] Right Arm Position Resting (more content not included)...[facility] HospitalDischarge Instructionson 23-71-7653Jmprbyjlg InstructionsDischarge Instructions JAQUELIN NORWOOD :1940 Visit Date:03/08/2024 Inpatient [...] Discharge Follow Up with Mandi Glez MD, [facility], [facility] When: Comments: Office will call to schedule follow up appointment and/or review any pending biopsy results Call for any problems. Where: [address], [address] [place] [phone] Medications What How Much When Instructions Next Dose Unchanged albuterol (Albuterol (Eqv-ProAir HFA) 90 mcg/ inh inhalation aerosol) Inhalation Every 6 hours Unchanged albuterol (albuterol 0.083% Inh Sabrina 3 mL) 3 Milliliter Inhalation Every 6 hours as neededfor Shortness of breath or wheezing Q6H and [...] on caring for yourself after you leave the[facility]ital. Your doctor may also give you specific [...] the toilet paper. FOL (more content not included)...[facility] HospitalComment on above:Result Comment: Electronically Signed By: Shakila COTA, Yoanna\.br\Date and Time Signed: 03/08/24 10:37 EDTMain OR PACU I Recordon 36-75-8002Eonv OR PACU I RecordMain OR PACU I Record PACU Phase I Document Type FT Summary Primary Physician: Mandi Glez MD Finalized Date/Time: 03/08/24 11:14:03 Pt. Name: JAQUELIN NORWOOD/Sex: 1940 Female Med Rec #: [id number] Physician: Mnadi Glez MD Financial #: [id number] Pt. Type: O Room/Bed: / Admit/Disch: 03/08/24 [...] individualized perioperative plan of care The patient's rightto privacy is maintained The patient's value system, [...] with or improved from baseline levels established preoperativelyThe patient's cardiovascular status is consistent with or improved from baseline levels established preoperatively The patient's cardiovascular status is consistent with or improved from baseline levels established preoperatively The patient demonstrates and/or reports adequate pain control throughout the perioperative period The patient received appropriate medication(s), safely administered during the perioperativeperiod Acuity Level PACU I FT Entry 1 Start Time 03/08/24 10:17:00 Stop Time 03/08/24 10:47:00 Acuity Level Acuity Level I Last Modified By: Yoanna hJaveri RN 03/08/24 11:13:58 Finalized By: Yoanna Jhaveri RN Document Signatures Signed By: Yoanna Jhaveri RN 03/08/24 11:14[facility] HospitalMain OR Preoperative Recordon 70-46-9621Mgpg OR Preoperative RecordMain OR Preoperative Record Holding Area Document Type FT Summary Primary Physician: Mandi Glez MD Finalized Date/Time: 03/08/24 08:51:04 Pt. Name: JAQUELIN NORWOOD/Canelo: 1940 Female Med Rec #: [id number] Physician: Mandi Glez MD Financial #: [id number] Pt. Type: O Room/Bed: / Admit/Disch: 03/08/24 [...] or her perioperative plan of care The patient'sright to privacy is maintained Surgery Checklist FT [...] Signatures Signed By: Ysabel Kelly RN 03/08/24 08:51[facility] HospitalOperative Reporton [id number] ReportOperative Report Patient: JAQUELIN NORWOOD Age: 83 years Sex: Female : 1940 Associated Diagnoses: None Author: Mandi Glez MD Pre-Procedure Procedure Date 03/08/2024 10:15:00 . Procedure Type: Colonoscopy with removal of tumor(s), polyp(s), or other lesion(s) by cold snare technique. Procedure provider Performed by Mandi Glez MD. Current history and physical Documented on chart. EGD - esophagogastroduodenoscopy ([id number]) on 02/03/2024 at 83 Years. Colonoscopy ([id number]) on 02/03/2024 at 83 Years.. Past Medical History No active or resolved past medical history items have been selected or recorded.. Family History Heart disease Mother Diabetes mellitus type 2 Mother Cancer Father Mother . Procedure History EGD - esophagogastroduodenoscopy ([id number]) on 02/03/2024 at 83 Years. Colonoscopy ([id number]) on 02/03/2024 at 83 Years.. Colorectal neoplasm [...] the left lateral decubitus position. Endoscope type usedwas an adult-size. The endoscope was lubricated then introduced through the anus. The scope was advanced to the cecum. No difficulties encountered during the procedure. The bowel preparation quality was good and was adequate (see polyps greater than or equal to 6 millimeters). The patient toleratedthe procedure well. Time to Cecum: 9 min [...] colon 6. Internal hemorrhoids Images Procedure images: Rec1_hd_video__09_12_54_071.jpg Rec1_hd_video__T09_16_33_113.jpg Rec1_hd_video__T09_17_31_091.jpg Rec1_hd_video_2023__T09_17_42_307.jpg Rec1_hd_video_2023__T09_18_59_330.jpg Rec1_hd_video_2023__T09_20_08_152.jpg Rec1_hd_video_2023__T09_22_43_176.jpg . Post-Procedure Complications: none. Estimated blood loss: Minimal. Specimens: sent to pathology. Devices/ implants: none left in place. Impression and Plan 6 colon polyps?removed as above Redundant colon with excessive mucus Diverticulosis Internal hemorrhoids Recommendations: Repeat colonoscopy:: None given age and comorbiditties . Follow-up:: in clinic for 1-2 weeks when p (more content not included)...Normal [facility] HospitalComment on above:Result Comment: Electronically Signed By: Amaris VALDEZ, Mandi Rde\.br\Date and Time Signed: 03/08/2410:18 EDT Other Comment: Missing Attachment - attachment storage system not supported [id number] Can be viewed in source systemMissing Attachment - attachment storage system not supported [id number] Can be viewed [facility] systemMissing Attachment - attachment storage system not supported [id number] Can be viewed in source systemMissing Attachment - attachment storage system not supported [id number] Can be viewed in source systemMissing Attachment - attachment storage system not supported [id number] Can be viewed in source systemMissing Attachment - attachment storage system not supported [id number] Can be viewed in source systemMissing Attachment - attachment storage system not supported [id number] Can be viewed in source systemH&P UpdateH&P Update Patient: JAQUELIN NORWOOD Age: 83 years [...] and Plan Diagnosis: abnl CT - colonoscopy &[facility] CenterOperative ReportOperative Report Patient: JAQUELIN NORWOOD Age: 83 years [...] Impression and Plan Diagnosis: abnl CT - colonoscopyMansfield HospitalComment on above:Result Comment: Electronically Signed By: Mandi Glez MD\.br\Date and Time Signed: 03/08/2410:14 EDTH&P UpdateH&P Update Patient: JAQUELIN NORWOOD Age: 83 years [...] and Plan Diagnosis: Abnormal CT scan Sigmoidoscopy H&PNOhioHealth Riverside Methodist HospitalOperative ReportOperative Report Patient: JAQUELIN NORWOOD Age: 83 years [...] Impression and Plan Diagnosis: Abnormal CT scan SigmoidoscopyMansfield HospitalComment on above:Result Comment: Electronically Signed By: Mandi Glez MD\.br\Date and Time Signed: 03/08/2409:49 EDTGastroenterology Office/Clinic Noteon 03-02-2024 Gastroenterology Office/Clinic NoteGastroenterology Office/Clinic Note Chief Complaint ref by cailin- [...] esophageal biopsies to evaluate dysphagia and nausea. Mightbenefit from gastric emptying test in the future. [...] Family History Cancer: Mo (more content not included)...[facility] Comment on above:Result Comment: Electronically Signed By: Antonio, Dania I\.br\Date and Time Signed: 03/02/24 09:67JFT28 Addendum Reporton Addendum Report[address] [place] [address]- Surgical Pathology Report Collected Date/Time: 02/03/2024 10:21 [...] is entirely submitted in one cassette. (DC) DC:[facility] Surgical Pathology Report Collected Date/Time: 02/03/2024 [...] characteristics were determined by the Laboratory of [facility]. They have not been cleared or approved by the US Food and Drug Administration. The FDA has determined that such clearance or approval is not necessary. These tests are used for clinical purposes. They should not be regarded as investigational or for research. Appropriate positive and negative controls are performed and are acceptable. [facility] HospitalComment on above:Performed By: #### CD:[id number] #### Jonh [facility] [address], [place] [address]Jfbl OR Intraoperative Recordon [id number] OR Intraoperative RecordMain OR Intraoperative Record IntraOp Document Type FT Summary Primary Physician: Mandi Glez MD Finalized Date/Time: 02/04/24 08:30:09 Pt. Name: JAQUELIN NORWOOD Glenroy Glaser/Sex: 1940 Female Med Rec #: [id number] Physician: Mandi Glez MD Financial #: [id number] Pt. Type: O Room/Bed: / Admit/Disch: 02/03/24 08:34:18 - 02/03/24 23:59:59 Institution: Case Times FT Entry 1 Patient Times In Room 02/03/24 10:10:00 Out Room 02/03/24 10:29:00 Procedure Times Start 02/03/24 10:16:00 Stop 02/03/24 10:26:00 Anesthesia Times Start 02/03/24 10:10:00 Stop 02/03/24 10:29:00 Last Modified By: Stephan COTA, Robbie River 02/03/24 10:29:17 General Comments: 1023 EGD completed MSRN 1025 Sigmoidoscopy started MSRN 02/04/24 Chart opened to review and send charges LRoth CSFA Case Attendance FT Entry 1 Entry 2 Entry 3 Case Attendee Nicholas ELIAS, Tiago Rothman RN, Karla Vu Role Performed Anesthesiologist of Needle Process [employer] Goods Supervisor - Primary Staff - Other Record Time In 02/03/24 10:10:00 02/03/24 10:10:00 02/03/24 10:15:00 Time Out 02/03/24 10:29:00 02/03/24 10:29:00 02/03/24 10:29:00 Procedure SIGMOIDOSCOPY(.), EGD(.) SIGMOIDOSCOPY(.), EGD(.) SIGMOIDOSCOPY(.), EGD(.) Comments help in room Last Modified By: Stephan RN, Robbie Rothman RN, Robbie Rothman RN, Robbie River 02/03/24 10:29:17 02/03/24 10:29:17 02/03/24 10:29:17 Entry 4 Entry 5 Case Attendee Ang DURAN, Talia Glez MD, Mandi Bryant Role Performed Scrub - Primary Surgeon - Primary Time In 02/03/24 10:10:00 02/03/24 10:10:00 Time Out 02/03/24 10:29:00 02/03/24 10:29:00 Procedure SIGMOIDOSCOPY(.), EGD(.) SIGMOIDOSCOPY(.), EGD(.) Comments Last Modified By: Stephan RN, Robbie Rothman RN, Robbie River 02/03/24 10:29:17 02/03/24 10:29:17 Perioperative Protocols FT [...] Last Modified By: Ruthy (more content not included)...NormalSheltering Arms Hospitalurgical Pathology Reporton [id number] Pathology ReportFairfield Medical Center [address] [place] [address]- Surgical Pathology Report Collected Date/Time: 02/03/2024 10:21 [...] esophagus biopsy are multiple fragments of zimmerman cmobs tissue ranging from less than 0.1 cm up to 0.1 cm in greatest dimension. The specimen is entirely submitted in one cassette. (DC) DC:[facility] Microscopic Description A&B: Microscopic examination performed unless gross only specified. The use of one or more reagents in the above tests is regulated as an analyte specific reagent (ASR). The test or tests are ordered following initial H&E microscopic examination. The performance characteristics were determined by the Laboratory of [facility]. They have not been cleared or approved by the US Food and Drug Administration. The FDA has determined that such clearance or approval is not necessary. These tests are used for clinical purposes. They should not be regarded as investigational or for research. Appropriate positive and negative controls are performed and are acceptable. NormalAkron Children'S HospitalComment on above:Performed By: #### [id number] #### Jonh [facility] [address] [place], [place] [address]Tzbpevwgq Instructionson 74-98-6418Nrrmwcrhv Instructions Discharge Instructions JAQUELIN NORWOOD :1940 Visit Date:02/03/2024 Inpatient Discharge Instructions Your Care Team Admitting Physician - Mandi Glez MD Referring Physician - Mandi Glez MD Reason for Your Visit ESOPHAGEAL DYSMOTILITY, ESOPHAGEAL DYSPHAGIA, CHOLELITHIASIS, HX OF GASTRIC SURGERY, ABNORMAL CT OFABDOMEN Your Diagnosis Abnormal CT of the abdomen [...] Follow Up with Amaris VALDEZ, WILBERTO Jean-Baptiste, [facility] When: Comments: Office will call Date and Time of Follow-up Appt. Where: [address], [address] [place] [address] [phone] Medications What How Much When Instructions Next Dose Unchanged albuterol (Albuterol (Eqv-ProAir HFA) 90 mcg/ inh inhalation aerosol) Inhalation Every 6 hours Unchanged albuterol (albuterol 0.083% Inh Sabrina 3 mL) 3 Milliliter Inhalation Every 6 hours as neededfor Shortness of breath or wheezing Q6H and [...] including vitamins, herbs, eye drops, creams, and syrs-znh-ilynnla medicines. ? Any problems you or family [...] thinners. ? Taking medi (more content not included)...[facility] Comment on above:Result Comment: Electronically Signed By: Saida Rey RN\.br\Date and Time Signed: 02/03/24 10:39EDTMain OR PACU I Recordon 56-18-9939Ohug OR PACU I RecordMain OR PACU I Record PACU Phase I Document Type FT Summary Primary Physician: Mandi Glez MD Finalized Date/Time: 02/03/24 16:03:27 Pt. Name: JAQUELIN NORWOOD/Sex: 1940 Female Med Rec #: [id number] Physician: Mandi Glez MD Financial #: [id number] Pt. Type: O Room/Bed: / Admit/Disch: 02/03/24 [...] individualized perioperative plan of care The patient's rightto privacy is maintained The patient's value system, [...] with or improved from baseline levels established preoperativelyThe patient's cardiovascular status is consistent with or improved from baseline levels established preoperatively The patient's cardiovascular status is consistent with or improved from baseline levels established preoperatively The patient demonstrates and/or reports adequate pain control throughout the perioperative period The patient received appropriate medication(s), safely administered during the perioperativeperiod Acuity Level PACU I FT Entry 1 Start Time 02/03/24 10:30:00 Stop Time 02/03/24 11:00:00 Acuity Level Acuity Level I Last Modified By: Saida Rey RN 02/03/24 10:55:05 Finalized By: Saida Rey RN Document Signatures Signed By: Saida Rey RN 02/03/24 10:55 Saida Rey RN 02/03/24 16:03Mansfield HospitalMain OR Preoperative Recordon 69-00-4620Ztps OR Preoperative RecordMain OR Preoperative Record Holding Area Document Type FT Summary Primary Physician: Mandi Glez MD Finalized Date/Time: 02/03/24 09:17:23 Pt. Name: JAQUELIN NORWOOD /Sex: 1940 Female Med Rec #: [id number] Physician: Mandi Glez MD Financial #: [id number] Pt. Type: O Room/Bed: / Admit/Disch: 02/03/24 [...] or her perioperative plan of care The patient'sright to privacy is maintained Surgery Checklist FT [...] RN 02/03/24 09:03 Saida Rey RN 02/03/24 09:17[facility] HospitalOperative Report on 26-75-7884Jnuoikpim ReportOperative Report Patient: JAQUELIN NORWOOD Age: 83 years [...] the left lateral decubitus position. Endoscope type usedwas a pediatric-size. The endoscope was lubricated then introduced through the anus. The scope was advanced to the sigmoid colon. No difficulties encountered during the procedure. The bowel preparation quality was poor and was inadequate. The patient tolerated the procedure well. Findings 1. Significant amount of stool prevented endoscopic exam. The procedure was aborted Images Procedure images: Rec1_hd_video_2023_08_14T09_35_37_819.jpg . Post-Procedure Complications: none. Estimated blood loss: none. Specimens: none. Devices/ implants: none left in place. Impression and Plan poor bowel prep Recommendations: Repeat colonoscopy:: Next available with 2-day prep . Follow-up:: in clinic as scheduled. Diet:: Previous. Medication resumption:: Continue current medications, Avoid NSAIDs. Return to activities:: After 24 hours. Education and Follow-up: Counseled: Patient, Family.[facility] HospitalComment on above:Result Comment: Electronically Signed By: Mandi Glez MD\.br\Date and Time Signed: 02/02/2410:31 EDTOther Comment: Missing Attachment - attachment storage system not supported [id number] Can be viewed in source systemOperative ReportOperative Report Patient: JAQUELIN NORWOOD Age: 83 years [...] safety measures. Endoscope type used was an adult- size, introduced orally, advanced to the 2nd portion of the duodenum. No difficulty was encountered during the procedure. Views were excellent. The patient tolerated the procedure well. Findings 1. Mild Schatzki ring and esophageal narrowing was noted at the GE junction. Dilation was performedusing TTS balloon 12-15 mm, dilation was perfumed to 15 mm with moderate resistance. Minimal mucosal disruption was noted post dilation. No wall defect was seen afterwards. Biopsies obtained 2. Mild and patchy erythema throughout the stomach status post biopsies. 3. Patchy erythema in the duodenal bulb. otherwise, normal duodenum. Images Procedure images: Rec_hd_video____26_067.jpg Rec_hd_video____34_629.jpg Rec_hd_video____43_827.jpg Rec_hd_video____55_948.jpg Rec_hd_video____13_375.jpg Rec_hd_video___35_569.jpg Rec_hd_video_T09__31_722.jpg Rec1_hd_video__T__44_158.jpg Rec1_hd_video____17_870.jpg Rec1_hd_video__09__43_284.jpg Rec1_hd_video__T09__02_072.jpg Rec1_hd_video__T09_32_03_161.jpg . Post-Procedure Complications: none. Estimated blood loss: none. Specimens: None. Devices/ implants: none left in place. Impression and Plan Schatzki's ring and esophageal stricture status post dilation Gastropathy Duodenitis Recommendations: -Liquid then soft diet today, advance as tolerated (more content not included)...[facility] HospitalComment on above:Result Comment: Electronically Signed By: Amaris VALDEZ, Mandi Red\.br\Date and Time Signed: 02/02/2410:30 EDTOther Comment: Missing Attachment - attachment storage system not supported [id number] Can be viewed in source system Missing Attachment - attachment storage system not supported [id number] Can be viewed in source systemMissing Attachment - attachment storage system not supported [id number] Can be viewed in source systemMissing Attachment - attachment storage system not supported [id number] Can be viewed in source systemMissing Attachment - attachment storage system not supported [id number] Can be viewed in source systemMissing Attachment - attachment storage system not supported [id number] Can be viewed in source systemMissing Attachment - attachment storage system not supported [id number] Can be viewed in source systemMissing Attachment - attachment storage system not supported [id number] Can be viewed in source system Missing Attachment - attachment storage system not supported [id number] Can be viewed in source systemMissing Attachment - attachment storage system not supported [id number] Can be viewed in source systemMissing Attachment - attachment storage system not supported [id number] Can be viewed in source systemMissing Attachment - attachment storage system not supported [id number] Can be viewed in source systemMS HEPATOBILIARY SCAN W PHARMACOLOGICAL INTERVENTIONon 01-04-[address] [address] Nuclear Medicine Report Signed Patient: JAQUELIN NORWOOD MR#: [id number] : 1940 Acct:[id number] Age/Sex: 83 / F ADM Date: 01/04/24 Loc: [place] Attending Dr: YOSSI LANDERS Ordering Physician: YOSSI LANDERS Date of Service: 01/04/24 Procedure(s): MS hepatobiliary w pharm Accession Number(s): [id number] cc: YOSSI LANDERS [place] [id number] Patient Name: JAQUELIN NORWOOD MRN: [id number] date: 1940 Sex: F Assigned Patient Location: MS Current Patient Location: MS Accession/Order Number: [id number] Exam Date: 01/04/2024 06:05 Report Date: 01/04/2024 10:48 At the request of: YOSSI LANDERS Procedure: NM hepatobiliary w pharm EXAMINATION: MS hepatobiliary w pharm HISTORY: RIGHT UPPER QUADRANT [...] minutes. (Normal EF > 38%). OTHER: Negative. MS/MS hepatobiliary w pharm IMPRESSION: Delayed visualization of the gallbladder seen at 45 minutes Patent biliary tree Biliary dyskinesia with no emptying at 60 minutes Electronically authenticated by: CARLOS EASLEY Date: 01/04/2024 10:48 Dictated By: Carlos Easley M.D. Signed By: 01/04/24 1051 DD/ 1048 TD/TT: Reformatory Attendant:DAKOTAadiology, Radiologist, - 01/04/[address] [address] Nuclear Medicine Report Signed Patient: JAQUELIN NORWOOD MR#: [id number] : 1940 Acct:[id number] Age/Sex: 83 / F ADM Date: 01/04/24 Loc: [place] Attending Dr: YOSSI LANDERS Ordering Physician: YOSSI LANDERS Date of Service: 01/04/24 Procedure(s): MS hepatobiliary w pharm Accession Number(s): [id number] cc: YOSSI LANDERS [place] [id number] Patient Name: JAQUELIN NORWOOD MRN: [id number] date: 1940 Sex: F Assigned Patient Location: MS Current Patient Location: MS Accession/Order Number: [id number] Exam Date: 01/04/2024 06:05 Report Date: 01/04/2024 10:48 At the request of: YOSSI LANDERS Procedure: NM hepatobiliary w pharm EXAMINATION: MS hepatobiliary w pharm HISTORY: RIGHT UPPER QUADRANT [...] minutes. (Normal EF > 38%). OTHER: Negative. MS/MS hepatobiliary w pharm IMPRESSION: Delayed visualization of the gallbladder seen at 45 minutes Patent biliary tree Biliary dyskinesia with no emptying at 60 minutes Electronically authenticated by: CARLOS EASLEY Date: 01/04/2024 10:48 Dictated By: Carlos Easley M.D. Signed By: 01/04/24 1051 DD/ 1048 TD/TT: Reformatory Attendant: BURTON HealthcareRadiology Study observation (narrative)[facility] HealthcareNM HEPATOBILIARY SCAN W PHARMACOLOGICAL INTERVENTIONOrdered By: Radiologist Radiology on 23-11-4115QOSL [employer] Work Phone: ambulatory Visit Summaryon 48-07-1355Ibpyzznjkr Visit SummaryAmbulatory Visit Summary JAQUELIN NORWOOD :1940 Visit Date:12/21/2023 Ambulatory Visit Instructions Your Diagnosis Esophageal dysmotility Esophageal dysphagia Cholelithiasis History of gastric surgery Abnormal CT of the abdomen Your Care Team Attending Physician - Amaris VALDEZ, Mandi Waggoner. Primary Care Physician - YOSSI LANDERS MD [...] By Mouth Every day Contact prescribing physician ifquestions or concerns Unchanged buPROPion (buPROPion 150 mg [...] 2 times a day Contact prescribing physician ifquestions or concerns Unchanged furosemide (furosemide 40 mg Tab) By Mouth Every day Contact prescribing physician if questions or concerns Unchanged levothyroxine (levothyroxine 100 mcg (0.1 mg) Tab) By Mouth Every day Contact prescribingphysician if questions or concerns Unchanged linaclotide (Linzess [...] you for choosing us for your care. [facility] HospitalPhysician Referralon 12-08-2023 Physician [id number]#1.00TIFFNoAvita Health SystemXR Ribs - left and Chest Viewson 07-89[place] [address] XRay Report Signed Patient: JAQUELIN NORWOOD MR#: [id number] : 1940 Acct:[id number] Age/Sex: 83 / F ADM Date: 11/19/23 Loc: [facility] Attending Dr: YOSSI LANDERS Ordering Physician: YOSSI LANDERS Date of Service: 11/19/23 Procedure(s): XR ribs LT min 3V w CXR1V Accession Number(s): [id number] cc: YOSSI LANDERS [place] [address] Patient Name: JAQUELIN NORWOOD MRN: [id number] date: 1940 Sex: F Assigned Patient Location: [facility] Current Patient Location: Accession/Order Number: [id number] Exam Date: 11/19/2023 13:28 Report Date: 11/20/2023 [...] No appreciable rib abnormality. Electronically authenticated by: AMAYA GRAMAJO Date: 11/20/2023 06:43 Dictated By: Amaya Gramajo M.D. Signed By: 11/20/2346 DD/ 2 TD/TT: Reformatory Attendant:DAKOTAadiologrenita, Radiologist, - 11/20/2023 The [place] [id number] XRay Report Signed Patient: JAQUELIN NORWOOD MR#: [id number] : 1940 Acct:[id number] Age/Sex: 83 / F ADM Date: 11/19/23 Loc: RAD Attending Dr: YOSSI LANDERS Ordering Physician: YOSSI LANDERS Date of Service: 11/19/23 Procedure(s): XR ribs LT min 3V w CXR1V Accession Number(s): [id number] cc: YOSSI LANDERS [place] [id number] Patient Name: JAUQELIN NORWOOD MRN: [id number] date: 1940 Sex: F Assigned Patient Location: [facility] Current Patient Location: Accession/Order Number: [id number] Exam Date: 11/19/2023 13:28 Report Date: 11/20/2023 [...] No appreciable rib abnormality. Electronically authenticated by: AMAYA GRAMAJO Date: 11/20/2023 06:43 Dictated By: Amaya Gramajo M.D. Signed By: 11/20/2346 DD/ 2 TD/TT: Reformatory Attendant: BURTON HealthcareRadiology Study observation (narrative)[facility] HealthcareXR Ribs - left and Chest ViewsOrdered By: Radiologist Radiology on 63-86-5859VPQW Healthcare Work Phone: us Thyroid glandon [phone] [address] Ultrasound Report Signed Patient: Jaquelin Norwood MR#: [id number] : 1940 Acct:[id number] Age/Sex: 83 / F ADM Date: 06/01/23 Loc: US Attending Dr: Bel Ojeda M.D. Ordering Physician: Bel Ojeda M.D. Date of Service: 06/01/23 Procedure(s): US thyroid Accession Number(s): [id number] cc: YOSSI LANDERS ; Bel Ojeda M.D. [place] [id number] Patient Name: JAQUELIN NORWOOD MRN: [id number] date: 1940 Sex: F Assigned Patient Location: US Current Patient Location: US Accession/Order Number: [id number] Exam Date: 06/01/2023 09:55 Report Date: 06/01/2023 10:38 At the request of: BEL OJEDA Procedure: US thyroid EXAMINATION: US thyroid HISTORY: [...] from the May 2022 exam TI-RADS: The [employer] TI-RADS committee's white paper recommendations for thyroid lesions classified as TR4 (moderately suspicious) are listed below: > 1.0 cm. Follow-up ultrasound in 1, 2, 3, and 5 years. > 1.5 cm. FNA. J. Am Nikunj Radiol 2017;14:587-595. Electronically authenticated by: CRALOS EASLEY Date: 06/01/2023 10:38 Dictated By: Carlos Easley M.D. Signed By: 06/01/23 1040 DD/ 1038 TD/TT: Reformatory Attendant:NEHEMIASHRadiology, Radiologist, - 08/26/2023 [place] [address] Ultrasound Report Signed Patient: Jaquelin Norwood MR#: [id number] : 1940 Acct:[id number] Age/Sex: 83 / F ADM Date: 06/01/23 Loc: US Attending Dr: Bel Ojeda M.D. Ordering Physician: Bel Ojeda M.D. Date of Service: 06/01/23 Procedure(s): US thyroid Accession Number(s): [id number] cc: YOSSI LANDERS ; Bel Ojeda M.D. The [place] [id number] Patient Name: JAQUELIN NORWOOD MRN: [id number] date: 1940 Sex: F Assigned Patient Location: US Current Patient Location: US Accession/Order Number: [id number] Exam Date: 06/01/2023 09:55 Report Date: 06/01/2023 10:38 At the request of: BEL OJEDA Procedure: US thyroid EXAMINATION: US thyroid HISTORY: [...] from the May 2022 exam TI-RADS: The [employer] TI-RADS committee's white paper recommendations for thyroid lesions classified as TR4 (moderately suspicious) are listed below: > 1.0 cm. Follow-up ultrasound in 1, 2, 3, and 5 years. > 1.5 cm. FNA. J. Am Nikunj Radiol 2017;14:587-595. Electronically authenticated by: CARLOS EASLEY Date: 06/01/2023 10:38 Dictated By: Carlos Easley M.D. Signed By: 06/01/23 1040 DD/ 1038 TD/TT: Reformatory Attendant: BURTON HealthcareRadiology, Radiologist, MD - 06/01/2023 [place] [address] Ultrasound Report Signed Patient: Jaquelin Norwood MR#: [id number] : 1940 Acct:[id number] Age/Sex: 83 / F ADM Date: 06/01/23 Loc: US Attending Dr: Ble Ojeda M.D. Ordering Physician: Bel Ojeda M.D. Date of Service: 06/01/23 Procedure(s): US thyroid Accession Number(s): [id number] cc: YOSSI LANDERS ; Bel Ojeda M.D. The [address] [address] Patient Name: JAQUELIN NORWOOD MRN: [id number] date: 1940 Sex: F Assigned Patient Location: US Current Patient Location: US Accession/Order Number: [id number] Exam Date: 06/01/2023 09:55 Report Date: 06/01/2023 10:38 At the request of: BEL OJEDA Procedure: US thyroid EXAMINATION: US thyroid HISTORY: [...] from the May 2022 exam TI-RADS: The [employer] TI-RADS committee's white paper recommendations for thyroid lesions classified as TR4 (moderately suspicious) are listed below: > 1.0 cm. Follow-up ultrasound in 1, 2, 3, and 5 years. > 1.5 cm. FNA. J. Am Nikunj Radiol 2017;14:587-595. Electronically authenticated by: CARLOS EASLEY Date: 06/01/2023 10:38 Dictated By: Carlos Easley M.D. Signed By: 06/01/23 1040 DD/ 1038 TD/TT: Reformatory Attendant: [facility] HOSPITALSupriya HealthcareRadiology Study observation (narrative)Christian HospitalUS Thyroid glandOrdered By: Radiologist Radiology on 72-76-7143XEZT [employer] Work Phone: cORTISOL FREE, SERUMon [phone], Free Dialysis, LCMS0.462 ug/dLNoPremier Health Upper Valley Medical CenterComment on above:Result Comment: These tests were developed and their performance characteristics determined by [facility]. They have not been cleared or approved by the Food and Drug Administration. Reference Range: 8 AM 0.10 - 1.20 4 PM 0.042 - 0.872Performed By: #### ERUR #### [facility] [address] [place] [address] Dr. Soila Garcia AUTO DIFFon 42-99-7897YPPE #0.0 103/ulNormal0.0-0.1The [facility] Medical CenterComment on above:Performed By: #### CBC #### [facility] [address] [place] [address] [address] Soila PastorBasophils/100 WBC (Bld)0.4 %Normal0.2-2.0The [facility] Comment on above:Performed By: #### CBC #### [facility] [address] [address] [address] Soila Prasad #0.1 103/ulNormal0.0-0.7The [facility] CenterComment on above: Performed By: #### CBC #### [facility] [address] [place] [address] Dr. Soila Luosinophils/100 WBC (Bld)1.0 %Normal0.9-7.0The [facility] Comment on above:Performed By: #### CBC #### [facility] [address] [place] [address] Dr. Soila Lurythrocyte distribution width (RBC) [Ratio]13.4 %Qotfdi71.0-15.0 The [facility] CenterComment on above:Performed By: #### CBC #### [facility] [address] [place] [address] Dr. Soila PastorHematocrit (Bld) [Volume fraction]34.7 %Critically low36.0-48.0 The [facility] CenterComment on above:Performed By: #### CBC #### [facility] [address] [place] [address] Dr. Soila PastorHemoglobin (Bld) [Mass/Vol]10.8 g/dLCritically low12.0-16.0The [facility] CenterComment on above:Performed By: #### CBC #### [facility] [address] [place] [address] Dr. Soila Sigala #0.03 10e3/ulNormal0.00-0.03The [facility] CenterComment on above:Performed By: #### CBC #### [facility] [address] [place] [address] Dr. Soila Sigala %0.4 %Normal0.0-0.5The Tk HospitalComment on above: Performed By: #### CBC #### [facility] [address] [address] [address] Soila Brantley #1.7 103/ulNormal1.2-3.8The [facility] on above:Performed By: #### CBC #### [facility] [address] [place] [address] Dr. Soila Shirleyhocytes/100 WBC (Bld)22.1 %Xudhqh49.5-60.0The [facility] on above:Performed By: #### CBC #### [facility] [address] [place] [address] Dr. Soila Morales DIFF REQNONormalThe [facility] on above: Performed By: #### CBC #### [facility] [address] [place] [address] Dr. Soila Winn (RBC) [Entitic mass]30.0 bhAdrnkv47.7-34.0The [facility] on above:Performed By: #### CBC #### [facility] [address] [place] [address] Dr. Soila Wayne (RBC) [Mass/Vol]31.1 g/eELbpore07.9-35.2The [facility] on above:Performed By: #### CBC #### [facility] [address] [place] [address] Dr. Soila Wayne (RBC) [Entitic vol]96.4 uHNxuluh80.0-99.0The [facility] on above:Performed By: #### CBC #### [facility] [address] [place] [address] Dr. Soila Gil #0.5 103/ulNormal0.3-0.8The [facility] on above:Performed By: #### CBC #### [facility] [address] [place] [address] Dr. Soila Palomoocytes/100 WBC (Bld)6.9 %Normal1.7-12.0The [facility] Comment on above:Performed By: #### CBC #### [facility] [address] [address] [address] Soila Friedman #5.4 103/ulNormal1.4-6.5The [facility] CenterComment on above:Performed By: #### CBC #### [facility] [address] [place] [address] Dr. Soila Lopezutrophils/100 WBC (Bld)69.2 %Itsbbe79.0-75.0The [facility] CenterComment on above:Performed By: #### CBC #### [facility] [address] [place] [address] Dr. Soila PastorPlatelet mean volume (Bld) [Entitic vol]11.8 fLNormal9.5-13.5The [facility] CenterComment on above:Performed By: #### CBC #### [facility] [address] [place] [address] Dr. Soila PastorPLT128 103/ulCritically qog067-839Lvg [facility] CenterComment on above:Performed By: #### CBC #### [facility] [address] [place] [address] Dr. Soila PastorRBC3.60 106/ulCritically low4.20-5.40The [facility] CenterComment on above:Performed By: #### CBC #### [facility] [address] [place] [address] Dr. Soila PastorWBC7.9 103/ulNormal4.0-11.0The [facility] CenterComment on above: Performed By: #### CBC #### [facility] [address] [place] [address] Dr. Soila PastorPROF 14(COMP METB)on 09-19-1265Bifmywe [Mass/Vol]2.4 g/dL Critically low3.4-5.0The [facility] CenterComment on above:Performed By: #### CMP #### [facility] [address] [place] [address] Dr. Soila PastorAlbumin/Globulin [Mass ratio]0.7 {ratio}NormalThe [facility] CenterComment on above:Performed By: #### CMP #### [facility] [address] [address] [address] Soila Amador [Catalytic activity/Vol]66 U/NNoiinu61-559Fbr [facility] CenterComment on above:Performed By: #### CMP #### [facility] [address] [address] [address] Soila PriceT [Catalytic activity/Vol]15 U/VDcctom24-53Dyl [facility] CenterComment on above:Performed By: #### CMP #### [facility] [address] [place] [address] Dr. Soila Holton gap [Moles/Vol]12.1 mmol/LNormalThe [facility] Comment on above:Performed By: #### CMP #### [facility] [address] [place] [address] Dr. Soila PastorAST [Catalytic activity/Vol]18 U/LWbdatz47-48Xmv [facility] CenterComment on above:Performed By: #### CMP #### [facility] [address] [place] [address] Dr. Soila PastorBilirubin [Mass/Vol]0.3 mg/dLNormal0.2-1.0The [facility] Comment on above:Performed By: #### CMP #### [facility] [address] [place] [address] Dr. Soila PastorCalcium [Mass/Vol]8.6 mg/dLNormal8.5-10.1[facility] Comment on above:Performed By: #### CMP #### [facility] [address] [place] [address] Dr. Soila PastorChloride [Moles/Vol]110 mmol/LCritically gdpj84-002Zsl [facility] CenterComment on above:Performed By: #### CMP #### [facility] [address] [place] [address] Dr. Soila PastorCO2 [Moles/Vol]26.2 mmol/CJgrtqn39.0-32.0The [facility] Comment on above:Performed By: #### CMP #### [facility] [address] [address] [address] Soila PastorCreatinine [Mass/Vol]0.74 mg/dLNormal0.55-1.02The [facility] CenterComment on above:Performed By: #### CMP #### [facility] [address] [address] [address] Soila LuGFR-AF SRI LANKAN>60Normal>=60The [facility] CenterComment on above:Performed By: #### CMP #### [facility] [address] [address] [address] Soila LuGFR-NON AF SRI LANKAN>60Normal>=60The [facility] CenterComment on above:Performed By: #### CMP #### [facility] [address] [place] [address] Dr. Soila PastorGlobulin (S) [Mass/Vol]3.6 g/dLNormalThe [facility] CenterComment on above:Performed By: #### CMP #### [facility] [address] [address] [address] Soila PastorGlucose [Mass/Vol]119 mg/dLCritically cjgb70-381Qke [facility] CenterComment on above:Performed By: #### CMP #### [facility] [address] [place] [address] Dr. Soila PastorPotassium [Moles/Vol]3.3 mmol/LCritically low3.5-5.1The [facility] CenterComment on above:Performed By: #### CMP #### [facility] [address] [address] [address] Soila PastorProtein [Mass/Vol]6.0 g/dLCritically low6.4-8.2The [facility] CenterComment on above:Performed By: #### CMP #### [facility] [address] [address] [address] Soila PastorSodium [Moles/Vol]145 mmol/HHgmfyl738-676Cro [facility] Comment on above:Performed By: #### CMP #### [facility] [address] [place] [address] Dr. Soila Jones nitrogen [Mass/Vol]11.0 mg/dLNormal7.0-18.0The [facility] CenterComment on above:Performed By: #### CMP #### [facility] [address] [place] [address] Dr. Soila Jones nitrogen/Creatinine [Mass ratio]14.9 mg/mgNormalThe [facility] CenterComment on above:Performed By: #### CMP #### [facility] [address] [place] [address] Dr. Soila Reddy KARYN 3-6on 70-28-6973ZL [Catalytic activity/Vol]251 U/L Critically kory60-657Ruh [facility] Hospitalment on above:Performed By: #### ERUR #### [facility] [address] [place] [address] Dr. Soila Morocho.MB [Mass/Vol]4.50 ng/mLCritically high<=3.60The [facility] CenterComment on above:Performed By: #### ERUR #### [facility] [address] [place] [address] Dr. Soila PastorHSTROP6.9 pg/mLNormal4.0-51.3The [facility] on above:Result Comment: CUT-OFF POINTS HAVE BEEN ESTABLISHED BASED ON THE FOURTH UNIVERSAL DEFINITIONS OF MYOCARDIAL INFARCTION. THE UPPER REFERENCE LIMIT (URL) OF TROPONIN, DEFINED THE 99TH PERCENTILE OF cTnI DISTRIBUTION IN A REFERENCE POPULATION, HAS BEEN CONFIRMED THE DECISION THRESHOLD FOR [place] DIAGNOSIS.Performed By: #### ERUR #### [facility] [address] [place] [address] Dr. Soila Morocho [Catalytic activity/Vol]143 U/UNpombe67-834Acb [facility] on above:Performed By: #### ERUR #### [facility] [address] [place] [address] Dr. Soila Morocho.MB [Mass/Vol]4.50 ng/mLCritically high<=3.60The Tk HospitalComment on above:Performed By: #### ERUR #### [facility] [address] [place] [address] Dr. Soila PastorHSTROP8.9 pg/mLNormal4.0-51.3The [facility] CenterComment on above:Result Comment: CUT-OFF POINTS HAVE BEEN ESTABLISHED BASED ON THE FOURTH UNIVERSAL DEFINITIONS OF MYOCARDIAL INFARCTION. THE UPPER REFERENCE LIMIT (URL) OF TROPONIN, DEFINED THE 99TH PERCENTILE OF cTnI DISTRIBUTION IN A REFERENCE POPULATION, HAS BEEN CONFIRMED THE DECISION THRESHOLD FOR [place] DIAGNOSIS.Performed By: #### ERUR #### [facility] [address] [place] [address] Dr. Soila Garcia AUTO DIFFon [id number] #0.0 103/ulNormal0.0-0.1The [facility] Hospitalment on above:Performed By: #### CBC #### [facility] [address] [place] [address] Dr. Soila PastorBasophils/100 WBC (Bld)0.2 %Normal0.2-2.0[facility] Comment on above:Performed By: #### CBC #### [facility] [address] [place] [address] Dr. Soila Prasad #0.0 103/ulNormal0.0-0.7The [facility] CenterComment on above: Performed By: #### CBC #### [facility] [address] [place] [address] Dr. Soila Luosinophils/100 WBC (Bld)0.4 %Critically low0.9-7.0The [facility] CenterComment on above:Performed By: #### CBC #### [facility] [address] [place] [address] Dr. Soila Lurythrocyte distribution width (RBC) [Ratio]13.7 %Vlxokl67.0-15.0 The [facility] CenterComment on above:Performed By: #### CBC #### [facility] [address] [place] [address] Dr. Soila PastorHematocrit (Bld) [Volume fraction]34.4 %Critically low36.0-48.0 The [facility] CenterComment on above:Performed By: #### CBC #### [facility] [address] [place] [address] Dr. Soila PastorHemoglobin (Bld) [Mass/Vol]10.7 g/dLCritically low12.0-16.0[facility]Comment [facility]:Performed By: #### CBC #### [facility] [address] [place] [address] Dr. Soila Sigala #0.21 10e3/ulCritically high0.00-0.03The [facility] Comment on above:Performed By: #### CBC #### [facility] [address] [place] [address] Dr. Soila Sigala %2.1 %Critically high0.0-0.5The [facility] CenterComment on above:Performed By: #### CBC #### [facility] [address] [place] [address] Dr. Soila Brantley #0.9 103/ulCritically low1.2-3.8The [facility] Comment on above:Performed By: #### CBC #### [facility] [address] [place] [address] Dr. Soila Shirleyhocytes/100 WBC (Bld)8.9 %Critically low20.5-60.0[facility] HospitalComment on above:Performed By: #### CBC #### [facility] [address] [place] [address] Dr. Soila ShahUAL DIFF REQNONormalThe [facility] CenterComment on above: Performed By: #### CBC #### [facility] [address] [place] [address] Dr. Soila Wayne (RBC) [Entitic mass]30.7 agTwxagx41.7-34.0The [facility] CenterComment on above:Performed By: #### CBC #### [facility] [address] [place] [address] Dr. Soila Wayne (RBC) [Mass/Vol]31.1 g/jSDknwkm00.9-35.2The [facility] CenterComment on above:Performed By: #### CBC #### [facility] [address] [place] [address] Dr. Soila WayneV (RBC) [Entitic vol]98.9 kLCbntjd55.0-99.0The [facility] CenterComment on above:Performed By: #### CBC #### [facility] [address] [place] [address] Dr. Soila Gil #0.4 103/ulNormal0.3-0.8The [facility] CenterComment on above:Performed By: #### CBC #### [facility] [address] [place] [address] Dr. Soila Palomoocytes/100 WBC (Bld)4.3 %Normal1.7-12.0[facility] Comment on above:Performed By: #### CBC #### [facility] [address] [place] [address] Dr. Soila Friedman #8.4 103/ulCritically high1.4-6.5The [facility] Comment on above:Performed By: #### CBC #### [facility] [address] [place] [address] Dr. Soila Lopezutrophils/100 WBC (Bld)84.1 %Critically high43.0-75.0The [facility] CenterComment on above:Performed By: #### CBC #### [facility] [address] [place] [address] Dr. Soila Bondslet mean volume (Bld) [Entitic vol]12.2 fLNormal9.5-13.5The [facility] CenterComment on above:Performed By: #### CBC #### [facility] [address] [place] [address] Dr. Soila MuñozT160 103/uuUagkpv102-104Hxd [facility] CenterComment on above: Performed By: #### CBC #### [facility] [address] [place] [address] Dr. Soila PastorRBC3.48 106/ulCritically low4.20-5.40WV[facility] Hospitalment on above:Performed By: #### CBC #### [facility] [address] [place] [address] Dr. Soila PastorWBC9.9 103/ulNormal4.0-11.0The [facility] Hospitalment on above: Performed By: #### CBC #### [facility] [address] [place] [address] Dr. Soila PastorCULTURE URINEon [id number] URINECulture Observations: NO GROWTH.NormalThe [facility] CenterComment on above:Performed By: #### POCGLUC #### [facility] [address] [place] [address] Dr. Soila PastorMAGNESIUMon 86-70-4530Oispkssmx [Mass/Vol]1.8 mg/dLNormal1.8-2.4 The [facility] CenterComment on above:Performed By: #### T4, MG #### [facility] [address] [place] [address] Dr. So[facility]orU[facility] GLUCOSEon 91-63-8187Uvbycaj [Mass/Vol]123 mg/dL Critically uygr67-862Ykn [facility] CenterComtrinity [facility] on above:Performed By: #### POCGLUC #### [facility] [address] [place] [address] Dr. Soila PastorGlucose [Mass/Vol]128 mg/dLCritically nbja12-558Oui [facility] on above:Performed By: #### ERUR #### [facility] [address] [place] [address] Dr. Soila PastorGlucose [Mass/Vol]111 mg/dLCritically gakq06-194QhsMer[facility] Community Hospital on above:Performed By: #### POCGLUC #### [facility] [address] [place] [address] Dr. Soila PastorPROF 14(COMP METB)on 16-59-0676Wkoanjt [Mass/Vol]2.3 g/dL Critically low3.4-5.0The [facility] CenterComment on above:Performed By: #### CMP #### [facility] [address] [address] [address] Soila PastorAlbumin/Globulin [Mass ratio]0.7 {ratio}NormalThe [facility] CenterComment on above:Performed By: #### CMP #### [facility] [address] [address] [address] Soila PriceP [Catalytic activity/Vol]70 U/UCmypqu27-242Dwi [facility] CenterComment on above:Performed By: #### CMP #### [facility] [address] [address] [address] Soila PriceT [Catalytic activity/Vol]11 U/LCritically hgd25-81Ntl [facility] CenterComment on above:Performed By: #### CMP #### [facility] [address] [place] [address] Dr. Soila Holton gap [Moles/Vol]11.2 mmol/LNormalThe [facility] Comment on above:Performed By: #### CMP #### [facility] [address] [place] [address] Dr. Soila PastorAST [Catalytic activity/Vol]32 U/LZddsdy65-73Pmy [facility] Hospitalment on above:Performed By: #### CMP #### [facility] [address] [place] [address] Dr. Soila PastorBilirubin [Mass/Vol]0.5 mg/dLNormal0.2-1.0The [facility] Comment on above:Performed By: #### CMP #### [facility] [address] [place] [address] Dr. Soila PastorCalcium [Mass/Vol]7.8 mg/dLCritically low8.5-10.1The [facility] CenterComment on above:Performed By: #### CMP #### [facility] [address] [place] [address] Dr. Soila PastorChloride [Moles/Vol]104 mmol/ZMmrfca44-174Rst [facility] Comment on above:Performed By: #### CMP #### [facility] [address] [address] [address] Soila PastorCO2 [Moles/Vol]26.4 mmol/ZChiigq30.0-32.0The [facility] Comment on above:Performed By: #### CMP #### [facility] [address] [address] [address] Soila PastorCreatinine [Mass/Vol]1.05 mg/dLCritically high0.55-1.02The [facility] CenterComment on above:Performed By: #### CMP #### [facility] [address] [address] [address] Cm ChangEGFR-AF SRI LANKAN>60Normal>=60The [facility] CenterComment on above:Performed By: #### CMP #### [facility] [address] [address] [address] Soila LuGFR-NON AF QUYFZZDW73 mL/min/1.02x9Robghofvgh low>=60The [facility] CenterComment on above:Performed By: #### CMP #### [facility] [address] [address] [address] Soila PastorGlobulin (S) [Mass/Vol]3.5 g/dLNormalThe [facility] CenterComment on above:Performed By: #### CMP #### [facility] [address] [address] [address] Soila PastorGlucose [Mass/Vol]153 mg/dLCritically ciwe42-337Ewy [facility] CenterComment on above:Performed By: #### CMP #### [facility] [address] [address] [address] Soila PastorPotassium [Moles/Vol]4.6 mmol/LNormal3.5-5.1The [facility] Comment on above:Performed By: #### CMP #### [facility] [address] [address] [address] Soila PastorProtein [Mass/Vol]5.8 g/dLCritically low6.4-8.2The [facility] CenterComment on above:Performed By: #### CMP #### [facility] [address] [address] [address] Soila PastorSodium [Moles/Vol]137 mmol/XDjkmod290-680Kzb [facility] Comment on above:Performed By: #### CMP #### [facility] [address] [address] [address] Soila PastorUrea nitrogen [Mass/Vol]19.0 mg/dLCritically high7.0-18.0The [facility] CenterComment on above:Performed By: #### CMP #### [facility] [address] [place] [address] Dr. Soila PastorUrea nitrogen/Creatinine [Mass ratio]18.1 mg/mgNoPremier Health Upper Valley Medical CenterComment on above:Performed By: #### CMP #### [facility] [address] [place] [address] Dr. Soila PastorT4on 60-13-7746M2 [Mass/Vol]7.30 ug/dLNormal4.80-13.90The [facility] CenterComment on above:Performed By: #### T4, MG #### [facility] [address] [place] [address] Dr. Soila Joseph SERUMon 31-88-6953UBJVXFCZnfzugniSncxmzVVZNXPDHTeb Bellevue HospitalComment on above:Performed By: #### ERUR #### [facility] [address] [place] [address] Dr. Soila RodriguezONIAon 25-00-3790Iftbpbh (P) [Moles/Vol]24 umol/HNfdtjj09-85 The [facility] CenterComment on above:Performed By: #### ERUR #### [facility] [address] [place] [address] Dr. Soila CANDELARIA BTYon [facility] HospitalComment on above:Performed By: #### ERUR #### [facility] [address] [place] [address] Dr. Soila Overton TESTPositiveNormalThe Tk HospitalComment on above: Performed By: #### ERUR #### [facility] [address] [address] [address] Soila Garduno excess Calc (Bld) [Moles/Vol]1.0 mmol/LNormal-2.0-2.0The [facility] on above:Performed By: #### ERUR #### [facility] [address] [place] [address] Dr. Soila RamirezP [facility] HospitalComtr[facility] on above: Performed By: #### ERUR #### [facility] [address] [place] [address] Dr. Soila PastorToledo Hospital on above:Performed By: #### ERUR #### [facility] [address] [place] [address] Dr. So[address] PastorJay[address] on above:Performed By: #### ERUR #### [facility] [address] [place] [address] Dr. Soila PastorHCO3 (Bld) [Moles/Vol]26.0 mmol/IThaifr00.0-26.0[facility] on above:Performed By: #### ERUR #### [facility] [address] [place] [address] Dr. Soila PastorLPMNormalThe [facility] on above:Performed By: #### ERUR #### [facility] [address] [place] [address] Dr. Soila JeffersonLicking Memorial HospitalComtrinity [facility] on above: Performed By: #### ERUR #### [facility] [address] [place] [address] Dr. Soila PastorOxygen (Bld) [Partial pressure]92.6 mm[Hg]Geophu97.0-100.0[facility] on above:Performed By: #### ERUR #### [facility] [address] [place] [address] Dr. Soila PastorOxygen saturation in Blood97.0 %Qqvutp31.0-100.0[facility] Hospitalment on above:Performed By: #### ERUR #### [facility] [address] [address] [address] Soila PastorPCO243.2 kxRsPuaqja69.0-45.0[facility] on above:Performed By: #### ERUR #### [facility] [address] [place] [address] Dr. Soila PastorCorey HospitalComtrinity health [facility] on above:Performed By: #### ERUR #### [facility] [address] [place] [address] Dr. Soila Monzon (Bld)7.389 [pH]Normal7.350-7.450[facility] on above:Performed By: #### ERUR #### [facility] [address] [place] [address] Dr. Soila SaezPremier Health Miami Valley HospitalComtrinity health [facility] on above:Performed By: #### ERUR #### [facility] [address] [place] [address] Dr. Soila PastorOhioHealth Grove City Methodist Hospital on above:Performed By: #### ERUR #### [facility] [address] [place] [address] Dr. Soila Lim [facility]Com[facility] on above: Performed By: #### ERUR #### [facility] [address] [place] [address] Dr. Soila DohertyPremier Health Miami Valley HospitalComtr[facility] on above:Performed By: #### ERUR #### [facility] [address] [place] [address] Dr. Soila PastorPremier Health Miami Valley Hospital SouthComtrinity health [facility] on above:Performed By: #### ERUR #### [facility] [address] [place] [address] Dr. Siola PastorAvita Health System Bucyrus HospitalComtrinity health [facility] on above:Performed By: #### ERUR #### [facility] [address] [place] [address] Dr. Soila Andersen 42-17-5128Sxbosufqinm peptide B (Bld) [Mass/Vol]432.0 pg/mL Normal<=1,800.0The [facility] CenterComment on above:Performed By: #### POCGLUC #### [facility] [address] [place] [address] Dr. Soila Garcia AUTO DIFFon 67-91-9426ENKX #0.1 103/ulNormal0.0-0.1The [facility] CenterComment on above:Performed By: #### POCGLUC #### [facility] [address] [place] [address] Dr. Soila PastorBasophils/100 WBC (Bld)0.3 %Normal0.2-2.0[facility] Comment on above:Performed By: #### POCGLUC #### [facility] [address] [place] [address] Dr. Soila Prasad #0.3 103/ulNormal0.0-0.7The [facility] CenterComment on above: Performed By: #### POCGLUC #### [facility] [address] [place] [address] Dr. Soila Luosinophils/100 WBC (Bld)1.7 %Normal0.9-7.0[facility] Comment on above:Performed By: #### POCGLUC #### [facility] [address] [place] [address] Dr. Soila Lurythrocyte distribution width (RBC) [Ratio]13.5 %Fvuisr02.0-15.0 The [facility] CenterComment on above:Performed By: #### POCGLUC #### [facility] [address] [place] [address] Dr. Soila PastorHematocrit (Bld) [Volume fraction]38.5 %Xucmqr48.0-48.0[facility] HospitalComment on above:Performed By: #### POCGLUC #### [facility] [address] [place] [address] Dr. Soila PastorHemoglobin (Bld) [Mass/Vol]12.2 g/fPLjvjcy36.0-16.0The [facility] CenterComment on above:Performed By: #### POCGLUC #### [facility] [address] [place] [address] Dr. Soila Sigala #0.06 10e3/ulCritically high0.00-0.03The [facility] Comment on above:Performed By: #### POCGLUC #### [facility] [address] [address] [address] Solia Sigala %0.4 %Normal0.0-0.5The [facility] CenterComment on above: Performed By: #### POCGLUC #### [facility] [address] [place] [address] Dr. Soila Brantley #2.5 103/ulNormal1.2-3.8The [facility] CenterComment on above:Performed By: #### POCGLUC #### [facility] [address] [place] [address] Dr. Soila Shirleyhocytes/100 WBC (Bld)17.2 %Critically low20.5-60.0The [facility] CenterComment on above:Performed By: #### POCGLUC #### [facility] [address] [place] [address] Dr. Soila ShahUAL DIFF REQNONormalThe [facility] CenterComment on above: Performed By: #### POCGLUC #### [facility] [address] [place] [address] Dr. Soila Winn (RBC) [Entitic mass]30.0 toKduekz65.7-34.0The [facility] CenterComment on above:Performed By: #### POCGLUC #### [facility] [address] [place] [address] Dr. Soila Wayne (RBC) [Mass/Vol]31.7 g/bWCbodku96.9-35.2The [facility] CenterComment on above:Performed By: #### POCGLUC #### [facility] [address] [place] [address] Dr. Soila Aly (RBC) [Entitic vol]94.8 vDQtfcdh63.0-99.0The [facility] CenterComment on above:Performed By: #### POCGLUC #### [facility] [address] [address] [address] Soila Gil #1.5 103/ulCritically high0.3-0.8The [facility] Comment on above:Performed By: #### POCGLUC #### [facility] [address] [address] [address] Soila Palomoocytes/100 WBC (Bld)9.9 %Normal1.7-12.0The [facility] Comment on above:Performed By: #### POCGLUC #### [facility] [address] [place] [address] Dr. Soila Friedman #10.3 103/ulCritically high1.4-6.5The [facility] Comment on above:Performed By: #### POCGLUC #### [facility] [address] [place] [address] Dr. Soila Lopezutrophils/100 WBC (Bld)70.5 %Dgadvu21.0-75.0The [facility] CenterComment on above:Performed By: #### POCGLUC #### [facility] [address] [place] [address] Dr. Soila Mendez mean volume (Bld) [Entitic vol]11.3 fLNormal9.5-13.5The [facility] CenterComment on above:Performed By: #### POCGLUC #### [facility] [address] [place] [address] Dr. Soila PastorPLT151 103/heBqtlgz879-617Tqk [facility] CenterComment on above: Performed By: #### POCGLUC #### [facility] [address] [place] [address] Dr. Soila PastorRBC4.06 106/ulCritically low4.20-5.40The [facility] CenterComment on above:Performed By: #### POCGLUC #### [facility] [address] [address] [address] Soila PastorWBC14.7 103/ulCritically high4.0-11.0The [facility] CenterComment on above:Performed By: #### POCGLUC #### [facility] [address] [address] [address] Soila PastorCT HEAD WO CONon [id number] HEAD WO CONEXAMINATION: CT HEAD WO CON HISTORY: DISORIENTATION, UNSPECIFIED [...] Electronically authenticated by: PAVEL SANCHEZ Date: 2022-10-14 20:13Normal The [facility] CenterCULTURE BLOODon 04-87-1349Qduvfmqcwgq examination of blood, cultureCulture Observations: NO GROWTH AT 5 DAYS.NormalThe [facility] CenterComment on above:Performed By: #### POCGLUC #### [facility] [address] [address] [address] Soila PastorMicroscopic examination of blood, cultureCulture Observations: NO GROWTH AT 5 DAYS.NormalThe [facility] HospitalComment on above:Performed By: #### POCGLUC #### [facility] [address] [address] [address] Soila Rossvid-19 PCR (CVDTB)on 81-56-2976XMIE-CoV-2 (COVID-19) RNA JERALD+probe Ql (Unsp spec)Not detectedNormalNOT DETECTEDEast [facility] Comment on above:Result Comment: When diagnostic testing is negative, the [...] for this test is supported by the [place] of Health and Human Service's declaration that circumstances exist to justify the emergency use of in vitro diagnostics for the detection and/or diagnosis of the virus that causes COVID-19. This EUA will remain in effect for the duration of the COVID-19 declaration justifying emergency of IVDs, unless it is terminated or revoked by the FDA (after which the test may no longer be used).Performed By: #### CVDTBH #### [facility] [address] [place] [address] Dr. Soila Flores URINE PROFILEon 78-41-5688Exdiruubt Ql (U)NegativeNormal NEGATIVEEast [facility] Regional HospitalComment on above:Performed By: #### ERUR #### [facility] [address] [place] [address] Dr. Soila Núñez (U)CLEARNormalCLEAREast [facility] Regional HospitalComment on above: Performed By: #### ERUR #### [facility] [address] [place] [address] Dr. Soila Xiong (U)YELLOWNormalYELLOWEast [facility] Regional HospitalComment on above: Performed By: #### ERUR #### [facility] [address] [place] [address] Dr. Soila Weiner micrscopic examination will be performed if indicated. NormalThe [facility] CenterComment on above:Performed By: #### ERUR #### [facility] [address] [address] [address] Soila PastorGlucose Ql (U)NegativeNormalNEGATIVEEast [facility] Regional HospitalComment on above:Performed By: #### ERUR #### [facility] [address] [place] [address] Dr. Soila PastorHemoglobin Ql (U)NegativeNormalNEGATIVEEast [facility] Comment on above:Performed By: #### ERUR #### [facility] [address] [place] [address] Dr. Soila PastorKetones Ql (U)TRACEAbnormalNEGATIVEEast [facility] Regional HospitalComment on above:Performed By: #### ERUR #### [facility] [address] [place] [address] Dr. Soila PastorLEUKOCYTESNegativeNormalNEGATIVEThe [facility] CenterComment on above:Performed By: #### ERUR #### [facility] [address] [place] [address] Dr. Soila PastorNitrite Ql (U)NegativeNormalNEGATIVEEast [facility] Regional HospitalComment on above:Performed By: #### ERUR #### [facility] [address] [place] [address] Dr. Soila PastorpH (U)5.0 [pH]Normal5-9[facility] HospitalComment on above: Performed By: #### ERUR #### [facility] [address] [place] [address] Dr. Soila PastorSPEC GRAVITY1.112Ijzhpn8.005-<=1.025The [facility] CenterComment on above:Performed By: #### ERUR #### [facility] [address] [place] [address] Dr. Soila PastorUA PROTEINNegativeNormalNEGATIVE/ TRACEEast [facility] Comment on above:Performed By: #### ERUR #### [facility] [address] [place] [address] Dr. Soila Medina MICRO INDNOT INDICATEDFulton Medical Center- FultonalThJ.W. Ruby Memorial HospitalComment on above:Performed By: #### ERUR #### [facility] [address] [place] [address] Dr. Soila Thurstonbilneerugen Qn (U)1.0 {Betsy'U}/dLNormal0.2 - 1.0The [facility] CenterComment on above:Performed By: #### ERUR #### [facility] [address] [place] [address] Dr. Soila PastorLACTATE/LACTIC ACIDon 07-37-7644Qnbhswh [Moles/Vol]1.4 mmol/L Normal0.4-2.0The [facility] CenterComment on above:Performed By: #### ERUR #### [facility] [address] [place] [address] Dr. Soila Monzon VENOUS BLOODon 37-85-8013PNX2 ACDDFV11.6 exQkZdenra43.0-52.0 The [facility] CenterComment on above:Performed By: #### ERUR #### [facility] [address] [place] [address] Dr. Soila Monzon VENOUS7.392Zzdjwa1.330-7.430The [facility] CenterComment on above:Performed By: #### ERUR #### [facility] [address] [place] [address] Dr. Soila Last 14(COMP METB)on 07-69-2684Atyegvz [Mass/Vol]3.2 g/dL Critically low3.4-5.0The [facility] CenterComment on above:Performed By: #### POCGLUC #### [facility] [address] [place] [address] Dr. Soila PastorAlbumin/Globulin [Mass ratio]0.8 {ratio}NormalThe [facility] CenterComment on above:Performed By: #### POCGLUC #### [facility] [address] [place] [address] Dr. Soila Amador [Catalytic activity/Vol]85 U/WGyyyrd53-614Bkx [facility] CenterComment on above:Performed By: #### POCGLUC #### [facility] [address] [place] [address] Dr. Soila Ramos [Catalytic activity/Vol]13 U/LCritically rnw65-33Lns [facility] CenterComment on above:Performed By: #### POCGLUC #### [facility] [address] [address] [address] Soila Holton gap [Moles/Vol]9.5 mmol/LNormalThe [facility] CenterComment on above:Performed By: #### POCGLUC #### [facility] [address] [address] [address] Soila PastorAST [Catalytic activity/Vol]12 U/LCritically nnj38-75Fpc [facility] CenterComment on above:Performed By: #### POCGLUC #### [facility] [address] [address] [address] Soila PastorBilirubin [Mass/Vol]0.5 mg/dLNormal0.2-1.0[facility] Comment on above:Performed By: #### POCGLUC #### [facility] [address] [address] [address] Soila PastorCalcium [Mass/Vol]9.0 mg/dLNormal8.5-10.1The [facility] Comment on above:Performed By: #### POCGLUC #### [facility] [address] [place] [address] Dr. Soila PastorChloride [Moles/Vol]99 mmol/QMumctz83-387Vev [facility] Comment on above:Performed By: #### POCGLUC #### [facility] [address] [address] [address] Soila PastorCO2 [Moles/Vol]32.0 mmol/JHqfznw17.0-32.0The [facility] Comment on above:Performed By: #### POCGLUC #### [facility] [address] [place] [address] Dr. Soila PastorCreatinine [Mass/Vol]1.55 mg/dLCritically high0.55-1.02The [facility] CenterComment on above:Performed By: #### POCGLUC #### [facility] [address] [place] [address] Dr. Soila LuGFR-AF LSLDLBQK30 mL/min/1.17h0Gzmckbupjd low>=60The [facility] CenterComment on above:Performed By: #### POCGLUC #### [facility] [address] [address] [address] Soila LuGFR-NON AF DKZEGFPG66 mL/min/1.05j1Bqmxnhlzxg low>=60The [facility] CenterComment on above:Performed By: #### POCGLUC #### [facility] [address] [address] [address] Soila PastorGlobulin (S) [Mass/Vol]3.8 g/dLNormalThe [facility] CenterComment on above:Performed By: #### POCGLUC #### [facility] [address] [address] [address] Soila PastorGlucose [Mass/Vol]125 mg/dLCritically kpul36-612Rvl [facility] CenterComment on above:Performed By: #### POCGLUC #### [facility] [address] [address] [address] Soila PastorPotassium [Moles/Vol]3.5 mmol/LNormal3.5-5.1The [facility] Comment on above:Performed By: #### POCGLUC #### [facility] [address] [place] [address] Dr. Soila PastorProtein [Mass/Vol]7.0 g/dLNormal6.4-8.2The [facility] Comment on above:Performed By: #### POCGLUC #### [facility] [address] [address] [address] Soila PastorSodium [Moles/Vol]137 mmol/YPzimuq431-739Vep [facility] Comment on above:Performed By: #### POCGLUC #### [facility] [address] [address] [address] Soila PastorUrea nitrogen [Mass/Vol]21.0 mg/dLCritically high7.0-18.0The [facility] CenterComment on above:Performed By: #### POCGLUC #### [facility] [address] [place] [address] Dr. Soila Jones nitrogen/Creatinine [Mass ratio]13.5 mg/mgNoPremier Health Upper Valley Medical CenterComment on above:Performed By: #### POCGLUC #### [facility] [address] [place] [address] Dr. Soila PastorPROTIMEon 47-17-5845SYY Coag (PPP) [Relative time]1.01 {INR} NormalThe [facility] CenterComment on above:Performed By: #### CVDTBH #### [facility] [address] [place] [address] Dr. Soila Goins GUIDELINESSEE BELOWDayton Osteopathic HospitalComment on above:Result Comment: DESIRED INR: 2.0 - 3.0 CONDITIONS NOT LISTED BELOW 2.5 - 3.5 FOR PROSTHETIC HEART VALVE REPLACEMENT 2.5 - 3.5 RECURRENT THROMBOSIS Performed By: #### CVDTBH #### [facility] [address] [place] [address] Dr. Soila PastorPT Coag (PPP) [Time]10.7 sNormal9.0-11.6The [facility] Comment on above:Performed By: #### CVDTBH #### [facility] [address] [place] [address] Dr. Soila Reynolds 53-79-1938rNRU Coag (Bld) [Time]31.5 kQcdeta92.3-36.2[facility] HospitalComment on above:Performed By: #### ERUR #### [facility] [address] [place] [address] Dr. Soila Miller, HIGH SENSITIVITYon 55-26-9904BQZQSH4.8 pg/mLNormal 4.0-51.3The [facility] CenterComtrinity health [facility] on above:Result Comment: CUT-OFF POINTS HAVE BEEN ESTABLISHED BASED ON THE FOURTH UNIVERSAL DEFINITIONS OF MYOCARDIAL INFARCTION. THE UPPER REFERENCE LIMIT (URL) OF TROPONIN, DEFINED THE 99TH PERCENTILE OF cTnI DISTRIBUTION IN A REFERENCE POPULATION, HAS BEEN CONFIRMED THE DECISION THRESHOLD FOR [place] DIAGNOSIS.Performed By: #### POCGLUC #### [facility] [address] [place] [address] [address] [address] Soila PastorTSHosandeep 54-50-8159QMN5.240 uIU/mLNormal0.358-3.740[facility] HospitalComment on above:Performed By: #### POCGLUC #### [facility] [id number] Soila PastorXR ANKLE LT MIN 3 Von 62-18-9985QK ANKLE LT MIN 3 VEXAM: XR ANKLE LT MIN 3 V HISTORY: Unspecified fall COMPARISON: None. TECHNIQUE: 3 view study FINDINGS: Overall bony architecture is normal. Ankle mortise relationships are intact. A plantar calcaneal enthesophyte is noted. Soft tissue swelling about the ankle is noted. IMPRESSION: No acute bone or joint abnormality at the ankle. Electronically authenticated by: Selin MCCALL Date: 2022-10-14 20:16NoPremier Health Upper Valley Medical CenterXR CHEST 1 Von [id number] CHEST 1 VEXAMINATION: XR CHEST 1 V, , 10/14/2022 6:28 PM EDT [...] Electronically authenticated by: KAELA HOOKER Date: 2022-10-14 20:15NormalEast [facility] Regional HospitalXR CHEST 2 Von [id number] CHEST 2 VEXAM: XR CHEST 2 V HISTORY: Cardiovascular symptoms COMPARISON: None. TECHNIQUE: PA and lateral views of the chest. FINDINGS: The cardiomediastinal silhouette is normal. No focal consolidation is identified. There is no pneumothorax. No pleural effusion is noted. The osseous structures are intact. IMPRESSION: No acute cardiopulmonary process. Suggestion of COPD. Electronically authenticated by: KARYN WASHINGTON Date: 2022-10-14 11:33[facility] HospitalCT CSPINE WO CONon [id number] [place] [facility] WO CONEXAMINATION: CT CSPINE WO CON HISTORY: The patient [...] Electronically authenticated by: REED LYNNE Date: 2022-08-24 18:47[facility] HospitalCT HEAD WO CONon [id number] HEAD WO CONEXAMINATION: CT HEAD WO CON, 08/24/2022 5:27 PM [...] Electronically authenticated by: AMAYA FRENCH Date: 2022-08-24 18:57NoPremier Health Upper Valley Medical CenterXR KNEE RT 4V or >on [id number] KNEE RT 4V or >EXAM: XR KNEE RT 4V or > REASON [...] Electronically authenticated by: VIKY WILLIAMSON Date: 2022-08-24 18:59[facility]opathic HospitalUS THYROIDon [id number] THYROIDEXAMINATION: US THYROID HISTORY: Non-toxic multinodular goiter COMPARISON: [...] left thyroid nodules, grossly stable TI-RADS: The [employer] TI-RADS committee's white paper recommendations for thyroid lesions classified as TR4 (moderately suspicious) are listed below: > 1.0 cm. Follow-up ultrasound in 1, 2, 3, and 5 years. > 1.5 cm. FNA. J. Am Nikunj Radiol 2017;14:587-595. Electronically authenticated by: CARLOS EASLEY Date: 2022-05-29 11:51NormC[facility] Clinic [facility] LAB Carotid Artery Duplex Ultrasounon [id number] LAB Carotid Artery Duplex UltrasounNort[address], [address], [place] [address] Vascular Lab Report Carotid Artery Duplex Ultrasound Patient Name: JAQUELIN GARZA Reading Physician: [id number] Martha Navas MD, [facility] Study Date: 04/14/2022 Referring XOCHITL HERNANDEZ Physician: MRN/PID: [id number] PCP: Yossi Landers Accession/Order#: [id number] CC Report to: Date of : 1940 Technologist: Eleanor Marcus RDCS, [facility] Gender: F Technologist 2: Admission Status: Outpatient Location Performed: [facility] Diagnosis/ICD: 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 Indication: CAD, Cardiomyopathy, Dyspnea, Obesity, COPD, Diabetes, HTN, Hyperlipidemia, Former Smoker Procedure/CPT: 61215 Cerebrovascular Carotid Duplex scan complete-[id number] CONCLUSIONS: Right Carotid: Findings are consistent with [...] cm/s Right Left ICA/CCA Ratio 1.5 1.9 [id number] Martha Navas MD, FACC Final [facility] Carotid Artery Duplex Ultrasoundon 27-55-7338JG.doppler Carotid arteriesState mental health facility [place] [address] [place] Work Phone: Height or Weight NOT Doneon 66-70-1744Zhwc risk assessmenta) No falls within the last yearState mental health facility Bloomz DO Work Phone: Tobacco use status CPHSb) [facility] [employer] 250 DO Work Phone: Office Visit (Cardiology)on 70-37-2397Pbhjtx-up visit Diagnoses/Problems Assessed Coronary artery disease without [...] Ultrasound; Status:Hold For - Scheduling,Retrospective Authorization; Requested for:26Feb2022; Laterality : Bilateral SocHx: Former smoker Tobacco Use Screening; Status:Complete; Done: [id number] Patient Instructions Please bring all medicines, vitamins, [...] Breath ActivatedTAKE 1 PUFF BY MOUTH TWICE ADAY ALPRAZolam 0.25 MG Oral TabletTAKE 1 TABLET [...] (V49.89) (Z78.9) 4-5 servings (more content not included)...NormalUH TouchworksUS THYROIDon 49-88-6251OR THYROIDEXAMINATION: US THYROID HISTORY: Non-toxic uninodular goiter COMPARISON: [...] one year is recommended. TR 4: The [employer] TI-RADS committee's white paper recommendations for thyroid lesions classified as TR4 (moderately suspicious) are listed below: > 1.0 cm. Follow-up ultrasound in 1, 2, 3, and 5 years. > 1.5 cm. FNA. J. Am Nikunj Radiol 2017;14:587-595. Electronically authenticated by: AMAYA GRAMAJO Date: 2022-01-08 08:44NoPremier Health Upper Valley Medical CenterCREATININEon 36-22-4765Fmntzefqhl [Mass/Vol]1.03 mg/dL Critically high0.55-1.02[facility] [place] [facility] HospitalComment on above:Performed By: #### POCGLUC #### [facility] [address] [place] [address] Dr. Soila LuGFR-AF SRI LANKAN>60Normal>=60[facility] [place] Regional HospitalComment on above:Performed By: #### POCGLUC #### [facility] [address] [place] [address] Dr. Soila LuGFR-NON AF MEPHCKGX78 mL/min/1.33d9Ksyhpyhzrz low>=60The [facility] Medical CenterComment on above:Performed By: #### POCGLUC #### [facility] [address] [place] [address] [address] W CONon 43-46-7198TP NECK ST W CONEXAMINATION: CT NECK ST W CON HISTORY: Mass [...] left jugular vein Electronically authenticated by: CARLOS EASLEY Date: 2021-12-30 21:32[facility] HospitalXR MODIFIED BARIUM SWALLOWon [id number] MODIFIED BARIUM SWALLOWEXAMINATION: XR MODIFIED BARIUM SWALLOW HISTORY: Gastroesophageal reflux [...] Electronically authenticated by: AMAYA GRAMAJO Date: 2021-12-05 17:48[facility] HospitalEchocardiogramon 93-09-9362CgptegozcicwjfqeHuczs [facility] [address], [address], [place] [address] TRANSTHORACIC ECHOCARDIOGRAM REPORT Patient Name: JAQUELIN GARZA Reading Physician: [id number] Xochitl NORWOOD MD Study Date: 11/11/2021 Referring Physician: [id number] XOCHITL HERNANDEZ MRN/PID: [id number] PCP: Yossi Landers Accession/Order#: [id number] Department Location: [facility] Date of : 1940 Fellow: Gender: F Nurse: Admit Date: Manager Cardiology: Eleanor Marcus RDCS, RVT Height: 162.56 cm CC Report to: Weight: 94.80 kg Study Type: Echocardiogram BSA: 1.99 m2 Blood Pressure: 124 /62 mmHg Diagnosis/ICD: I42.9-Cardiomyopathy, unspecified; R06.00-Dyspnea, unspecified Indication: CAD, HTN, Hyperlipidemia, Former Smoker, Bilateral Carotid Stenosis, Obesity Procedure/CPT: Echo Complete w Full Doppler-[id number] Study Detail: The following Echo studies were performed: 2D, M-Mode, Doppler and color flow. PHYSICIAN INTERPRETATION: Left Ventricle: The left ventricular systolic function is normal, with an estimated ejection fraction of 60%. The left ventricular cavity size is normal. Spectral Doppler shows an impaired relaxationpattern of left ventricular diastolic filling. Left Atrium: [...] normal. There is no indication of pulmonic valveregurgitation. Pericardium: There is no pericardial effusion noted. [...] 0.9 m/s (0.6-0.9m/s) PV Max P.3 mmHg [id number] Xochitl Hernandez MD Electronically signed on 11/13/2021 at 4:32:53 PM Final NormalB[facility] Medical CenterOffice Visit (Cardiology)on 90-39-8637Kczokj-up visitDiagnoses/Problems Assessed Coronary artery disease without angina pectoris [...] treatment plan.; Status:Complete - Retrospective Authorization; Done: [id number] SocHx: Former smoker Tobacco Use Screening; Status:Complete; Done: [id number] Patient Instructions By signing my name below, Alla Irvin [employer], attest that this documentation has been prepared under the direction and in the presence of Dr. Xochitl Hernandez MD. All medical record entries made by the Miok were at my direction and personally dictated by me. Nelson reviewed the chart and agree that the [...] up in 4-5 months Retrieve records from [facility] Chief Complaint overdue. JAQUELIN NORWOOD is being [...] Continues to complainof mild shortness of breath 2. History of [...] Breath ActivatedTAKE 1 PUFF BY MOUTH TWICE ADAY ALPRAZolam 0.25 MG Oral TabletTAKE 1 TABLET [...] BY MOUTH EVERY DAY (more content not included)...NormalUH TouchworksTobacco Screening.on 59-49-2082Uvire depression screening assessmentNoState mental health facility Bloomz DO Work Phone: Fall risk assessmenta) No falls within the last year [facility] DO Work Phone: Tobacco use status CPHSb) [facility] [employer] DO Work Phone: Vital Signs Date TimeVital SignValuePerforming SifjydbfzGtzodtjx03-37-4914 11:19-0400Body acsqut402.1 cmYossi Landers MD Work Phone: [employer] SystemsSaint John's HospitalMwmdnhyyue67-24-1295 11:19-0400Body mass index (BMI) [Ratio]31.95 kg/z4TbvxfbYossi Landers MD Work Phone: Kim[employer] SystemsSaint John's HospitalBwldupytqd81-76-3149 11:19-0400Body zethww84.09 kgYossi Landers MD Work Phone: noSaint John's HospitalGlmdrkgtzl10-17-3427 11:19-0400Diastolic blood nuhwyezu56 mm[Hg]Yossi Landers MD Work Phone: noDakt[facility] Onhathmmzo21-56-8308 11:19-0400Heart rate86 /min Yossi Landers MD Work Phone: Kim[employer] SystemsSaint John's HospitalTofklhvmyv79-80-5442 11:19-7725NoS2% (BldA) [Mass fraction]96 %Yossi Landers MD Work Phone: 1(219)[facility]-6881NOSaint John's HospitalEnaapxwpiq48-36-1058 11:19-0400Systolic blood qlagpysm726 mm[Hg]Yossi Landers MD Work Phone: 1(419)[facility]-4277NOSaint John's HospitalRbixmlerjv58-24-6431 15:12-0400Body tdizpa492.1 cmDadavid Landers MD Work Phone: 1(419)[facility]-0843NOSaint John's HospitalPstbimcpuw04-50-0753 15:12-0400Body mass index (BMI) [Ratio]32.62 kg/t4Zjrqledavid Landers MD Work Phone: 1(419)[facility]-9055Christian HospitalBsueoksnhq57-18-6529 15:12-0400Body adnksa08.91 kgDadavid Landers MD Work Phone: [facility] HospitalSabuezktnu74-29-2519 15:12-0400Diastolic blood ekvmqvqe96 mm[Hg]Yossi Landers MD Work Phone: Christian HospitalTvyzonzoxh59-97-6912 15:12-0400Heart rate63 /min Yossi Landers MD Work Phone: 1(849)[facility]-5660Christian HospitalZvjrccpcyk48-13-7904 15:12-0400Respiratory rate16 /minDgriselda Landers MD Work Phone: NOSaint John's HospitalAlknsvpgef50-46-1138 15:12-7983EmU9% (BldA) [Mass fraction]98 %Yossi Landers MD Work Phone: NOSaint John's HospitalCnorwzezmo93-73-3987 15:12-0400Systolic blood zrwirbbt997 mm[Hg]Yossi Landers MD Work Phone: NOSaint John's HospitalIjhqrjfedy76-25-0956 10:02-0400Body fjijsq500.1 Ed Serrano MEDICAL LOGISTICS SPECIALIST Work Phone: 1(419)[facility]0469NOSaint John's HospitalGqwuuqvmfp26-12-1807 10:02-0400Body mass index (BMI) [Ratio]32.62 kg/r0Ozglopfeliz Serrano MEDICAL LOGISTICS SPECIALIST Work Phone: NOSaint John's HospitalVpdzqwrypn71-69-8181 10:02-0400Body .91 kgShfeliz Serrano MEDICAL LOGISTICS SPECIALIST Work Phone: NOSaint John's HospitalZzpuecktlg73-51-3339 10:02-0400Diastolic blood oonjxuxf05 mm[Hg]Anne Serrano MEDICAL LOGISTICS SPECIALIST Work Phone: NOSaint John's HospitalXarocxuzug43-19-6304 10:02-0400Heart rate88 /min Anne Serrano MEDICAL LOGISTICS SPECIALIST Work Phone: NOSaint John's HospitalJxpuxsfrqa66-70-7538 10:02-0400Respiratory rate17 /minStrey Darshan MEDICAL LOGISTICS SPECIALIST Work Phone: NOSaint John's HospitalAwwyjpgnkj24-44-7764 10:02-7830UtF0% (BldA) [Mass fraction]94 %Anne Serrano MEDICAL LOGISTICS SPECIALIST Work Phone: NOSaint John's HospitalSktcjsjkwh75-15-3727 10:02-0400Systolic blood kcrflkwu26 mm[Hg]Anne Darshan MEDICAL LOGISTICS SPECIALIST Work Phone: NOSaint John's HospitalXdywtutwwg58-82-5790 14:05-0400Body oinkit574.1 cmDadavid Landers MD Work Phone: [phone] John's HospitalFqpcujpofv18-47-7152 14:05-0400Body mass index (BMI) [Ratio]30.79 kg/i9IgojdyYossi Landers MD Work Phone: [phone] John's HospitalYehisrpkid91-83-9107 14:05-0400Body temperature 96.91 [degF]Yossi Landers MD Work Phone: [phone] John's HospitalSoahxnfgfq22-48-8018 14:05-0400Body dqeqli30.92 kgYossi Landers MD Work Phone: NOSaint John's HospitalSymipnoyqy38-75-0181 14:05-0400Diastolic blood tabdfvgt25 mm[Hg]Yossi Landers MD Work Phone: NOSaint John's HospitalTljkurblli03-68-7473 14:05-0400Heart rate88 /min Yossi Landers MD Work Phone: NOSaint John's HospitalQsbwhcefsi61-44-2589 14:05-6622NuN2% (BldA) [Mass fraction]97 %Yossi Landers MD Work Phone: 1(136)687-[address] [place], [place] [address]Lejnjqivam12-01-6696 14:05-0400Systolic blood mm[Hg]Yossi Landers MD Work Phone: NOSaint John's HospitalOldyxibcgs76-30-5582 11:29-0400Body lhptjo522.1 cmYossi Landers MD Work Phone: NOSaint John's HospitalEenungtgrq59-95-8092 11:29-0400Body mass index (BMI) [Ratio]30.79 kg/i8AnsirjYossi Landers MD Work Phone: 1(649)[facility]-5253Christian HospitalFtgzafvarb37-82-2482 11:29-0400Body yatmic72.92 kgYossi Landers MD Work Phone: [facility] HospitalItysymgmhk23-84-8745 11:29-0400Heart rate70 /min Yossi Landers MD Work Phone: 1(383)[facility]-0859Christian HospitalRmuzhqjkim04-11-8187 11:29-5865UbP5% (BldA) [Mass fraction]98 %Yossi Landers MD Work Phone: 1(535)[facility]2202Christian HospitalNdcvnrnnqq55-56-9379 09:55-0400Body tiwihh712.1 cmYossi Landers MD Work Phone: 1(874)[facility] [place], [place] [address]Rzadwdwoib06-23-7739 09:55-0400Body mass index (BMI) [Ratio]33.12 kg/c6HhvsidYossi Landers MD Work Phone: [phone] HospitalKobwttpeyz55-07-8917 09:55-0400Body ubykzh89.27 kgYossi Landers MD Work Phone: 1(792)[facility]7774Christian HospitalZrmbsjvmvk21-36-7284 09:55-0400Diastolic blood mm[Hg]Yossi Landers MD Work Phone: [facility] HospitalBkjvaxbxqu39-45-9200 09:55-0400Heart rate66 /min Yossi Landers MD Work Phone: 1(700)[facility]9041[facility] HospitalPpveultjbs46-89-1137 09:55-0400Respiratory rate17 /minDgriselda Landers MD Work Phone: [facility] HospitalLsfiuqjqtx57-63-0466 09:55-9203KxB9% (BldA) [Mass fraction]99 %Yossi Landers MD Work Phone: [facility] HospitalYwxcdlroge34-42-8864 09:55-0400Systolic blood wccucydy046 mm[Hg]Yossi Landers MD Work Phone: [facility] HospitalPayipbrcjo09-31-0699 14:43-0400Body mass index (BMI) [Ratio]27.64 kg/m2Yen Auguste PA Work Phone: [facility] HospitalEvalyupchk06-96-0723 14:43-0400Body mcurhq81.35 kgAmy Kalyani PA Work Phone: NOSaint John's HospitalCzwfeykioj63-37-9834 14:43-0400Diastolic blood enbyiejy31 mm[Hg]Yen Calviney PA Work Phone: [facility] HospitalCaedkhnixh21-92-3866 14:43-0400Systolic blood evfussly856 mm[Hg]Yen Calviney PA Work Phone: [facility] HospitalXyigefcswe58-24-4689 11:05-0400Body qlewgd881.1 cmYossi Landers MD Work Phone: [facility] HospitalOhimsabxpr28-53-2416 11:05-0400Body mass index (BMI) [Ratio]30.29 kg/e2DeaalsYossi Landers MD Work Phone: [facility] HospitalQhrutwwifb01-86-6195 11:05-0400Body .56 kgYossi Landers MD Work Phone: [facility] HospitalIythfxuqcw42-15-3428 11:05-0400Diastolic blood viziuanp08 mm[Hg]Yossi Landers MD Work Phone: [facility] HospitalSldhunmpft08-71-8220 11:05-0400Heart rate67 /min Yossi Landers MD Work Phone: [facility] HospitalDirnohchea72-35-6871 11:05-3226GvS9% (BldA) [Mass fraction]97 %Yossi Landers MD Work Phone: NOSaint John's HospitalFwofxphnif92-58-5634 11:05-0400Systolic blood cxlsyvud089 mm[Hg]Yossi Landers MD Work Phone: [facility] HospitalLmbiwkveuw59-66-9517 10:30-0400Body bkfdbe160.1 cmKaren Hemmer PA Work Phone: BYSaint John's HospitalAoyzalntns77-84-0632 10:30-0400Body mass index (BMI) [Ratio]31.12 kg/x1Nuomc Hemmer PA Work Phone: AFSaint John's HospitalFhbnmgukkv46-55-1290 10:30-0400Body agobku05.82 kgKaren Hemmer PA Work Phone: NLSaint John's HospitalEkflohirjh79-93-9804 10:30-0400Diastolic blood whnryehi06 mm[Hg]Can Hemmer PA Work Phone: MVSaint John's HospitalSzfetrxonb21-77-7616 10:30-0400Heart rate80 /min Can Hemmer PA Work Phone: [place] [address]Kobdpyfpwy52-00-3932 10:30-8454JoB4% (BldA) [Mass fraction]97 %Can Hemmer PA Work Phone: [facility] HospitalPphvujmhdn76-33-5364 10:30-0400Systolic blood ahaarznh710 mm[Hg]Can Hemmer PA Work Phone: EQSaint John's HospitalHvowpfzvcc67-41-1253 10:57-0400Body jybnjb215.1 cmKaren Hemmer PA Work Phone: LHSaint John's HospitalMescrdzlbo20-63-2216 10:57-0400Diastolic blood mm[Hg]Can Hemmer PA Work Phone: [facility] HospitalUbpdskbrpt03-82-1112 10:57-0400Heart rate73 /min Can Hemmer PA Work Phone: VPTam[place] [address]Kdgsddnbnz99-17-2438 10:57-0400Respiratory rate18 /minKaren Hemmer PA Work Phone: AQTam[place] [address]Fcsepeakte53-67-7396 10:57-5470TlP9% (BldA) [Mass fraction]94 %Can Hemmer PA Work Phone: SPTam[place] [address]Twwopqwgjr15-68-2009 10:57-0400Systolic blood dillxrjz153 mm[Hg]Can Hemmer PA Work Phone: NOSaint John's HospitalEmqtoejyzz00-71-5884 11:08-0400Body ajzvzw057.1 cmDadavid Landers MD Work Phone: NOSaint John's HospitalGrdgyvdslz23-27-8693 11:08-0400Body mass index (BMI) [Ratio]33.45 kg/o0EadcuiYossi Landers MD Work Phone: NOSaint John's HospitalDlckkeorwx70-75-8737 11:08-0400Body kekoll28.17 kgYossi Landers MD Work Phone: NOSaint John's HospitalFggptqrgui55-05-7052 11:08-0400Diastolic blood ojekktyf99 mm[Hg]Yossi Landers MD Work Phone: NOSaint John's HospitalIgwkelrddu27-05-5228 11:08-0400Heart rate67 /min Yossi Landers MD Work Phone: [facility] HospitalGvgqdgvdxi99-05-9853 11:08-2908YhX0% (BldA) [Mass fraction]96 %Yossi Landers MD Work Phone: NOSaint John's HospitalGqpbapuumi81-32-0594 11:08-0400Systolic blood jmwrvepn238 mm[Hg]Yossi Landers MD Work Phone: [facility] HospitalHloxgzhcxt23-87-1429 09:00-0500Body .1 cmLeanndarien William DO Work Phone: noSaint John's HospitalKgpwcjuzvu41-75-5231 09:00-0500Body mass index (BMI) [Ratio]31.12 kg/k7Rfzmsw Nataliia DO Work Phone: noSaint John's HospitalTomnsglctj27-79-9872 09:00-0500Body okvutl53.82 kgLeanne Nataliia DO Work Phone: noSaint John's HospitalAfjjuwywhd91-38-2209 09:00-0500Diastolic blood mm[Hg]Kristen Nataliia DO Work Phone: noSaint John's HospitalSrfhmxtfsc85-14-2913 09:00-0500Heart rate63 /min Kristen Nataliia DO Work Phone: noSaint John's HospitalArtlaklhhd43-10-5180 09:00-4319AfR2% (BldA) [Mass fraction]88 %Kristen Nataliia DO Work Phone: noSaint John's HospitalJskqkdmnez48-94-2050 09:00-0500Systolic blood mnsxqoit784 mm[Hg]Kristen William DO Work Phone: noSaint John's HospitalNkmwudnkjp87-39-2889 10:50-0500Body muixrh291.1 cmYossi Landers MD Work Phone: [facility] HospitalOxbgoarfjq57-15-3417 10:50-0500Body mass index (BMI) [Ratio]31.12 kg/p9IbzevcYossi Landers MD Work Phone: [facility] HospitalBmclziqvpj57-51-8822 10:50-0500Body mldfdi57.82 kgYossi Landers MD Work Phone: [facility] HospitalYgrrwxydbj68-20-9636 10:50-0500Diastolic blood mm[Hg]Yossi Landers MD Work Phone: [facility] HospitalNafybwtnif51-44-8034 10:50-0500Heart rate86 /min Yossi Landers MD Work Phone: [facility] HospitalNvksyokcxd96-91-4901 10:50-4338NcK0% (BldA) [Mass fraction]97 %Yossi Landers MD Work Phone: NOSaint John's HospitalPctgsjivso56-19-6362 10:50-0500Systolic blood kajqugxu137 mm[Hg]Yossi Landers MD Work Phone: [facility] HospitalUvditlvbxy50-59-0842 16:16-0500Body zebxac890.1 cmAlessandro Levi DPM Work Phone: NOSaint John's HospitalNyvxylswtq86-82-9544 16:16-0500Body mass index (BMI) [Ratio]29.62 kg/v3YkmspxegAlessandro Levi DPM Work Phone: [facility] HospitalFxycrshqhu16-05-6976 16:16-0500Body .74 kgAlessandro Levi DPM Work Phone: [facility] HospitalRmrxphjbos87-66-8315 16:16-0500Respiratory rate18 /minNicedgar Levi DPM Work Phone: NOSaint John's HospitalBdyfgmbtiv34-26-3753 14:17-0500Body tzbtre171.1 cmBel Ojeda MD Work Phone: NOSaint John's HospitalQydzfidkmt77-91-7566 14:17-0500Body mass index (BMI) [Ratio]29.62 kg/c0HjworjBel Ojeda MD Work Phone: [facility] HospitalDxcuvvxert83-88-9976 14:17-0500Body zxlhma74.74 kgBel Ojeda MD Work Phone: NOSaint John's HospitalQknbefnfxs08-04-2329 14:17-0500Diastolic blood mm[Hg]Bel Ojeda MD Work Phone: NOSaint John's HospitalRdwiwvvcjt68-77-1464 14:17-0500Heart rate69 /min Bel Ojeda MD Work Phone: [facility] HospitalFtdsremqvb67-72-1794 14:17-0500Systolic blood nbesrwqj642 mm[Hg]Bel Ojeda MD Work Phone: NOSaint John's HospitalPsysrsblgo29-33-9754 10:50-0500Body xolblv670.1 cmYossi Landers MD Work Phone: NOSaint John's HospitalMcrnqookap54-96-4906 10:50-0500Body mass index (BMI) [Ratio]29.62 kg/q7BchccnYossi Landers MD Work Phone: NOSaint John's HospitalUbqamwhoml20-07-2378 10:50-0500Body bmkqbi57.74 kgYossi Landers MD Work Phone: NOSaint John's HospitalLeifsddewo10-57-5287 10:50-0500Diastolic blood mm[Hg]Yossi Landers MD Work Phone: NOSaint John's HospitalDntahoewjn13-65-1591 10:50-0500Heart rate77 /min Yossi Landers MD Work Phone: NOSaint John's HospitalSabdbxjdtr05-60-5646 10:50-5207ClL4% (BldA) [Mass fraction]98 %Yossi Landers MD Work Phone: [facility] HospitalLwmpzfciia58-58-7248 10:50-0500Systolic blood lvoejesd595 mm[Hg]Yossi Landers MD Work Phone: [facility] HospitalOmeyshmuiq45-68-7170 13:06-0500Body utuxha113.1 cmYossi Landers MD Work Phone: [facility] HospitalMhgmuvnyej34-79-8049 13:06-0500Diastolic blood lkkjipap67 mm[Hg]Yossi Landers MD Work Phone: [facility] HospitalJcxhxhqewj34-54-3117 13:06-0500Heart rate65 /min Yossi Landers MD Work Phone: [facility] HospitalArcbsqmgyh61-35-5281 13:06-7699YoB1% (BldA) [Mass fraction]99 %Yossi Landers MD Work Phone: [facility] HospitalKrkilkvbwo55-28-1544 13:06-0500Systolic blood thakfqqw169 mm[Hg]Yossi Landers MD Work Phone: 1(341)075-[address] [place], [place] [address]Dbsiidwchc83-31-1367 11:10-0500Body oarbqi048.1 cmYossi Landers MD Work Phone: 1(585)339-[address] [place], [place] [address]Ccsmwylbed25-02-5935 11:10-0500Body mass index (BMI) [Ratio]29.79 kg/t3OckynsYossi Landers MD Work Phone: 1(513)924-[address] [place], [place] [address]Mmstbdisiv18-15-9012 11:10-0500Body xhxowd00.19 kgYossi Landers MD Work Phone: 1(076)953-[address] [place], [place] [address]Gonohcpidl06-79-6060 11:10-0500Diastolic blood eqehpksv19 mm[Hg]Yossi Landers MD Work Phone: 1(905)643-[address] [place], [place] [address]Cgjmvdqibw59-41-2326 11:10-0500Heart rate73 /min Yossi Landers MD Work Phone: [facility] HospitalSxcbcggkid39-62-0714 11:10-9953TaM9% (BldA) [Mass fraction]97 %Yossi Landers MD Work Phone: 1(599)679-[address] [place], [place] [address]Yrkquxfhwc83-11-5385 11:10-0500Systolic blood mm[Hg]Yossi Landers MD Work Phone: [facility] HospitalVyjrtovdmc13-72-7733 13:43-0500Body xkncep665.1 cmAlessandro Levi DPM Work Phone: [facility] HospitalKsleclfqin84-95-1920 13:43-0500Body mass index (BMI) [Ratio]31.95 kg/f0SqpsdbotAlessandro Levi DPM Work Phone: [facility] HospitalUyhudwwwmp54-11-8622 13:43-0500Body .09 kgAlessandro Levi DPM Work Phone: [facility] HospitalFggrqhiias83-66-9431 13:43-0500Diastolic blood xauohofn05 mm[Hg]Alessandro Levi DPM Work Phone: [facility] HospitalObxsfygnvi67-56-5465 13:43-0500Heart rate82 /min Alessandro Levi DPM Work Phone: [facility] HospitalCxiqfidptf24-71-3337 13:43-0500Systolic blood mm[Hg]Alessandro Levi DPM Work Phone: [facility] HospitalPddgmcleyb56-93-2637 10:42-0400Blood Pressure LocationMohamad Mouchli [facility]09-17-2024 10:42-0400 Diastolic blood vzbhhxoc32 mm[Hg]Mandi Glez [facility]09-17-2024 10:42-0400Heart rate80 /minMohamad Mouchli [facility]09-17-2024 10:42-0400Mean blood czdyojxy484 mm[Hg]Mandi Glez [facility]09-17-2024 10:42-0400 Respiratory rate15 /minMohamad Mouchli [facility]09-17-2024 10:42-5253QaY9% (BldA) [Mass fraction]97 %Mohamad Mouchli [facility]09-17-2024 10:42-0400 Systolic blood fatedwuv252 mm[Hg]Mohamad Mouchli [address] [place], [place] 1230909-17-2024 10:30-0400Blood Pressure LocationMohamad Mouchli [address] [place], [place] 1230909-17-2024 10:30-0400 Diastolic blood asgxhkos27 mm[Hg]Mohamad Mouchli [address] [place], [place] 1230909-17-2024 10:30-0400Heart rate82 /minMohamad Mouchli [address] [place], [place] 1230909-17-2024 10:30-0400Mean blood ozjljtix532 mm[Hg]Mohamad Mouchli [address] [place], [place] 1230909-17-2024 10:30-0400 Respiratory rate27 /minMohamad Mouchli [address] [place], [place] 1230909-17-2024 10:30-4934JgH3% (BldA) [Mass fraction]99 %Mohamad Mouchli [address] [place], [place] 1230909-17-2024 10:30-0400 Systolic blood bsuwkuct942 mm[Hg]Mohamad Mouchli [address] [place], [place] 1230909-17-2024 10:25-0400Blood Pressure LocationMohamad Mouchli [address] [place], [place] 1230909-17-2024 10:25-0400 Diastolic blood msiocice48 mm[Hg]Mohamad Mouchli [address] [place], [place] 1230909-17-2024 10:25-0400Heart rate82 /minMohamad Mouchli [facility]09-17-2024 10:25-0400Mean blood vzaadzen46 mm[Hg]Aldod Frankoli [address] [place], [place] 1230909-17-2024 10:25-0400 Respiratory rate17 /minSilveriohamad Silveriouchli [address] [place], [place] 1230909-17-2024 10:25-9835RiW4% (BldA) [Mass fraction]98 %Mandi Abdulli [address] [place], [place] 1230909-17-2024 10:25-0400 Systolic blood nakystpi211 mm[Hg]Aldod Frankoli [address] [place], [place] 1230909-17-2024 10:17-0400Body fvsaqrhyphz97.34 [degF]Aldodianne Frankoli [address]09-17-2024 08:46-0400Body qenezmtfegn42.06 [degF]Aldod Frankoli [address] [place], [place] 1230909-17-2024 08:46-0400 Respiratory rate20 /Tseringnuria Frankoli [facility]08-29-2024 13:23-0400Body fjyasw169.1 cmAlessandro Levi DPM Work Phone: [facility] HospitalNbtbvfrgfm88-90-7377 13:23-0400Body mass index (BMI) [Ratio]31.95 kg/y3UpacurbtAlessandro Levi DPM Work Phone: [facility] HospitalUgwrypokhk31-84-7643 13:23-0400Body gajvyh86.09 kgAlessandro Levi DPM Work Phone: [facility] HospitalObtbcimdyv99-36-3250 13:23-0400Diastolic blood aqxmzjdo85 mm[Hg]Alessandro Levi DPM Work Phone: [facility] [phone] 13:23-0400Heart rate88 /min Alessandro Levi DPM Work Phone: [facility] [phone] 13:23-0400Systolic blood hmomxwth996 mm[Hg]Alessandro Levi DPM Work Phone: [facility] [phone] 10:52-0400Diastolic blood aptsqaqd48 mm[Hg]Mohamad Mouchli [facility]08-14-2024 10:52-0400Heart rate80 /minMohamad Mouchli [facility]08-14-2024 10:52-0400Mean blood spipvokr60 mm[Hg]Mohamad Mouchli [facility]08-14-2024 10:52-0400 Respiratory rate29 /minMohamad Mouchli [facility]08-14-2024 10:52-5110DoL2% (BldA) [Mass fraction]100 %Mohamad Mouchli [facility]08-14-2024 10:52-0400 Systolic blood woarvzmy199 mm[Hg]Mohamad Mouchli [facility]08-14-2024 10:45-0400 Diastolic blood olqxvhna69 mm[Hg]Mohamad Mouchli [facility]08-14-2024 10:45-0400Heart rate76 /minMohamad Mouchli [facility]08-14-2024 10:45-0400Mean blood xaghigsp28 mm[Hg]Mohamad Mouchli [facility]08-14-2024 10:45-0400 Respiratory rate22 /minMohamad Mouchli [facility]08-14-2024 10:45-3233LzT4% (BldA) [Mass fraction]99 %Mohamad Mouchli [facility]08-14-2024 10:45-0400 Systolic blood senrzper242 mm[Hg]Mohamad Mouchli [address] [place], [place] [id number] 10:40-0400 Diastolic blood ijkggajz01 mm[Hg]Mohamad Mouchli [address] [place], [place] [id number] 10:40-0400Heart rate76 /minMohamad Mouchli [address] [place], [place] [id number] 10:40-0400Mean blood kcfykbwv99 mm[Hg]Aldod Mouchli [address] [place], [place] 1230908-14-2024 10:40-0400 Respiratory rate28 /minMohamad Mouchli [address] [place], [place] 1230908-14-2024 10:40-0737ZcC3% (BldA) [Mass fraction]100 %Mohamad Mouchli [address] [place], [place] 1230908-14-2024 10:40-0400 Systolic blood rdrudmvq043 mm[Hg]Mohamad Mouchli [address] [place], [place] 1230908-14-2024 10:30-0400Blood Pressure LocationMohamad Mouchli [address] [place], [place] 1230908-14-2024 10:30-0400Body yjouaaevhyt27.7 [degF]Mohamad Mouchli [address] [place], [place] 1230908-14-2024 10:25-0400 Respiratory rate10 /minMohamad Mouchli [address]08-14-2024 10:20-0400 Respiratory rate10 /minMohamad Mouchli [address] [place], [place] 1230908-14-2024 10:15-0400 Respiratory rate10 /minMohamad Mouchli [address]08-14-2024 08:55-0400Blood Pressure LocationMohamad Mouchli [address]08-14-2024 08:55-0400Body lfcjdhgmogo64.7 [degF]Mohamad Mouchli [address]07-01-2024 13:43-0400Blood Pressure LocationMohamad Mouchli [phone]-Fnjuq[address] [place], [place] 2755307-01-2024 13:43-0400Diastolic blood gqzmxvyy54 mm[Hg]Mohamad Mouchli 622-0356Bqrlym-Pvmnd[address] [place], [place] 2755307-01-2024 13:43-0400Heart rate76 /minMohamad Mouchli 287-8997Vtfgmj-Tjuce[address] [place], [place] 2755307-01-2024 13:43-0400Respiratory rate16 /minMohamad Mouchli 793-8763Dkmhti-Tfyyc[address] [place], [place] 2755307-01-2024 13:43-0400Systolic blood edksiuxe275 mm[Hg]Mohamad Mouchli 659-3221Qzluhk-Hatdd[address] [place], [place] 2755309-07-2022 15:04-0400Body aktaxf322.56 cmXochitl Hernandez MD Work Phone: [phone]-Ceids [facility] 250 DO Work Phone: 1(505) 627-305309-07-2022 15:04-0400Body mass index (BMI) [Ratio] Medical Reason Not DoneMotamir Hernandez MD Work Phone: [phone]-Syjrc [facility] 250 DO Work Phone: 1(556) 106-144109-07-2022 15:04-0400Diastolic blood aqznleuw54 mm[Hg] Xochitl Hernandez MD Work Phone: [phone]-Pfckl [facility] 250 DO Work Phone: 1([phone]) [phone] 15:04-0400Heart rate72 /minXochitl Hernandez MD Work Phone: [phone]-Lvuws [facility] 250 DO Work Phone: 1(803) [phone] 15:04-0400Systolic blood kowxhdmw766 mm[Hg] Xochitl Hernandez MD Work Phone: [phone]-Nbqon [facility] 250 DO Work Phone: 1(244) 422-542204-26-2022 12:59-0400Body jbpopr174.56 cmXochitl Hernandez MD Work Phone: [phone]-Mbarl [facility] 250 DO Work Phone: 1(342) [phone] 12:59-0400Body mass index (BMI) [Ratio] 35.87 kg/o9PlxpolwXochitl Hernandez MD Work Phone: mp111-8985OW-Bcnsi [facility] 250 DO Work Phone: 1(588) [phone] 12:59-0400Body surface area Derived from formula1.99 a9HtdvghoXochitl Hernandez MD Work Phone: mp376-4588QE-Ubqeh [facility] 250 DO Work Phone: 1(655) [phone] 12:59-0400Body .8 kgXochitl Hernandez MD Work Phone: [phone]-Xklfh [facility] 250 DO Work Phone: 1(318) [phone] 12:59-0400Diastolic blood omoofapb56 mm[Hg] Xochitl Hernandez MD Work Phone: mp508-3989MS-Vxmfi [facility] 250 DO Work Phone: 1(548) [phone] 12:59-0400Heart rate66 /minXochitl Hernandez MD Work Phone: [phone]-Lpiwk [facility] 250 DO Work Phone: 1(210) [phone] 12:59-0400Systolic blood fvqdthew863 mm[Hg] Xochitl Hernandez MD Work Phone: [phone]-Vvfrt [facility] 250 DO Work Phone: Encounters Encounter DateEncounter TypeCare ProviderFacilityStart: 04-07-2025 End: 17-87-3681Cizirq Marisol Landers MD Work Phone: [facility] MedinceStart: 04-07-2025 End: 52-85-8719Pthees Marisol Landers MD Work Phone: [facility] MedinceStart: 04-07-2025 End: 66-72-2992Vrebgb outpatient visit 25 minutesYossi Landers MD Work Phone: [facility] MedinceComment on above:Cervical radiculitis (Primary Dx); Closed fracture of multiple ribs of right side, initial encounter; Depression with anxietyStart: 04-07-2025 End: 71-24-7327jahkfwpeknNNTICY B BERRYNot AvailableStart: 03-27-2025 End: 61-53-2823Hurzsd outpatient visit 25 minutesYossi Landers MD Work Phone: [facility] MedinceComment on above:Cervical radiculitis (Primary Dx); Chronic combined systolic and diastolic congestive heart failure (HCC)Start: 03-27-2025 End: 51-21-8905cweqqolhgoUEFUKW B BERRYNot AvailableStart: 03-27-2025 End: 70-61-6966Snfiho Marisol Landers MD Work Phone: [facility] MedinceStart: 03-27-2025 End: 30-46-4554Aefmvj Marisol Landers MD Work Phone: [facility] MedinceStart: 03-09-2025 End: 20-44-3083XevygpHjdtk M Alda MD Work Phone: [facility] MedinceComment on above:Depression with anxietyStart: 03-06-2025 End: 68-43-9026PkxorjQlpljn B Berry MD Work Phone: [facility] MedinceComment on above:Closed fracture of multiple ribs of right side, initial encounterStart: 03-01-2025 End: 87-54-8291Wkbbul Rashmi Serrano MEDICAL LOGISTICS SPECIALIST Work Phone: [facility] MedinceStart: 03-01-2025 End: 34-04-3173Kyxrxj Rashmi Serrano MEDICAL LOGISTICS SPECIALIST Work Phone: [facility] MedinceStart: 03-01-2025 End: 11-40-1424Cmzjlx outpatient visit 15 minutesShfeliz Serrano MEDICAL LOGISTICS SPECIALIST Work Phone: [facility] MedinceComment on above:Chronic diastolic congestive heart failure (HCC) (Primary Dx); Closed fracture of multiple ribs with routine healing, unspecified laterality, subsequent encounterStart: 03-01-2025 End: 94-30-7696lipkhendguSUEIVRJose Luis Mendoza AvailableStart: 02-23-2025 End: 72-89-3051Ehlqpb Marisol Landers MD Work Phone: [facility] MedinceStart: 02-23-2025 End: 64-92-1688Uyvfnlkarena Landers MD Work Phone: [facility] MedinceStart: 02-23-2025 End: 43-03-5082xcuiroteboOSKNCY B BERRYNot AvailableStart: 02-19-2025 End: 44-84-5482sqleddzqyaPnetk T [facility] Work Phone: Start: 02-19-2025 End: 54-49-1019Viqrhgqy ReferredDuane Garcia MD-LAB [facility] Start: 02-19-2025 End: 24-97-2685Zymugsvqx Result EncounterGeneric External Data ProviderNOMS External Department UnsolicitedStart: 02-19-2025 End: 01-02-9793Gqwkrzjqx Result EncounterGeneric External Data ProviderNOMS External Department UnsolicitedStart: 02-06-2025 End: 93-55-6158XdyicqSbwtl M Hemmer PA Work Phone: [facility] MedinceComment on above:Depression with anxietyStart: 01-30-2025 End: 02-37-9119Qxkphe outpatient visit 25 minutesDadavid Landers MD Work Phone: NOOW [facility] MedinceComment on above:COPD exacerbation (HCC) (Primary Dx); Panlobular emphysema (HCC); Depression with anxietyStart: 01-30-2025 End: 89-38-0732gbipllbvwtRDBJDV B BERRYNot AvailableStart: 01-25-2025 End: 87-84-4467gayypvklqnBSTWQC B BERRYNot AvailableStart: 01-16-2025 End: 68-25-4253Xocxgm flowsGaudencio Landers MD Work Phone: [facility] MedinceStart: 01-16-2025 End: 17-74-8285Wdfkmjmichaela Landers MD Work Phone: [facility] MedinceStart: 01-16-2025 End: 91-86-5863Vehrhmpbwjnr care manage srvc 14 day dischargeDgriselda Landers MD Work Phone: [facility] MedinceComment on above:Panlobular emphysema (HCC) (Primary Dx); Depression with anxiety; Acute on chronic diastolic congestive heart failure (HCC); Chronic combined systolic and diastolic congestive heart failure (HCC)Start: 01-16-2025 End: 38-30-6206vycnwniwsbUKSQAG B BERRYNot AvailableStart: 01-09-2025 End: 42-69-8818Cahctg Marisol Landers MD Work Phone: [facility] CI FMStart: 01-09-2025 End: 77-91-0426Mrochr Marisol Landers MD Work Phone: [facility] CI FMStart: 01-09-2025 End: 84-52-8827Olqdfm outpatient visit 25 minutesDadavid Landers MD Work Phone: [facility] CI FMComment on above:Acute on chronic combined systolic and diastolic heart failure (HCC) (Primary Dx); Panlobular emphysema (HCC); Other specified hypotension; Unspecified dementia, unspecified severity, without behavioral disturbance, psychotic disturbance, mood disturbance, and anxiety (HCC)Start: 01-09-2025 End: 30-35-3333eobvcflvrlKXHDIO B BERRYNot AvailableStart: 01-08-2025 End: 10-61-7993RgjuyrGaqinr B Berry MD Work Phone: [facility] CI FMComment on above:Acquired hypothyroidism ; Gastroesophageal reflux disease without esophagitis; Mixed hyperlipidemia ; Essential hypertension ; Depression with anxiety; Chronic combined systolic and diastolic congestive heart failure (HCC)Start: 01-03-2025 End: 90-12-7696PorppiYmkxkr B Berry MD Work Phone: [facility] CI FMComment on above:Depression with anxiety Start: 12-29-2024 End: 64-66-3988Tfkdni outpatient visit 15 minutesYen PALACIOS Work Phone: [facility] BCP OBComment on above:Vaginal discomfortStart: 12-29-2024 End: 65-45-9086nqosdjkkqiRVQ RAMEYNot AvailableStart: 12-29-2024 End: 32-19-1073Vilbgt Jennifer PALACIOS Work Phone: [facility] BCP OBStart: 12-29-2024 End: 30-25-3084Qmjqny Jennifer PALACIOS Work Phone: NO BCP OBStart: 12-03-2024 End: 53-42-0510KtwvyfLyxbsa B Berry MD Work Phone: [facility] CI FMComment on above:Depression with anxiety; Degenerative lumbar spinal stenosisStart: 11-07-2024 End: 66-90-3947Muywxw Marisol Landers MD Work Phone: [facility] CI FMStart: 11-07-2024 End: 22-28-2400Jgdaup Marisol Landers MD Work Phone: [facility] CI FMStart: 11-07-2024 End: 26-38-3704Youan of hemosiderin, Lobito Landers MD Work Phone: N[facility] HealthcareStart: 11-07-2024 End: 87-68-9936Ylxzjaj encounter procedureYossi Landers MD Work Phone: [facility] CI FMComment on above:Routine general medical examination at health care facility (Primary Dx); ACP (advance care planning); Nausea; Panlobular emphysema (CMS/HCC); 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); Cognitive impairmentStart: 11-07-2024 End: 30-20-3514bcbzpxfnoeVZAGDN B BERRYNot AvailableStart: 10-27-2024 End: 53-83-5678PesflqPywun M Hemmer PA Work Phone: [facility] POPULATION HEALTHComment on above:NauseaStart: 10-13-2024 End: 62-56-8615Gilrzqvuc encounterCan PALACIOS Work Phone: [facility] CI FMComment on above:diureticStart: 10-07-2024 End: 57-91-8570Hfyzgt outpatient visit 25 minutesCan PALACIOS Work Phone: [facility] CI FMComment on above:Community acquired pneumonia, unspecified laterality (Primary Dx); Nausea; Bilateral lower extremity edema; Generalized weakness; 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)Start: 10-07-2024 End: 09-39-3512xuzpzlxaawQSIIL M HEMMERNot AvailableStart: 10-01-2024 End: 04-58-5136Nkuyeqfno Result EncounterGeneric External Data ProviderNOMS External Department UnsolicitedStart: 10-01-2024 End: 13-46-7532Frafkdtes Result EncounterGeneric External Data ProviderNOMS External Department UnsolicitedStart: 10-01-2024 End: 94-31-3115fmqobkotimNygfmd Berry II Work Phone: [facility] Work Phone: Start: 10-01-2024 End: 98-22-9646Aluzswyu ReferredYossi Landers II Work Phone: [facility] HospStart: 09-29-2024 End: 33-90-8213Ohhynv Marc PALACIOS Work Phone: [facility] CI FMStart: 09-29-2024 End: 59-15-9483Agxoca Marc PALACIOS Work Phone: [facility] CI FMStart: 09-29-2024 End: 05-20-6197Ngtroc outpatient visit 25 minutesCan PALACIOS Work Phone: [facility] CI FMComment on above:Community acquired pneumonia, unspecified laterality (Primary Dx); Hyponatremia; Panlobular emphysema (CMS/HCC); Nausea; Gastroesophageal reflux disease without esophagitis; 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)Start: 09-29-2024 End: 45-59-0392flgwpzygxsAOEIZ M HEMMERNot AvailableStart: 09-27-2024 End: 31-68-8142Qbcsnhzef Result EncounterGeneric External Data ProviderNOMS External Department UnsolicitedStart: 09-27-2024 End: 51-04-9660Zcushqgkh Result EncounterGeneric External Data ProviderNOMS External Department UnsolicitedStart: 09-14-2024 End: 38-93-7094Aghpxv Marisol Landers MD Work Phone: [facility] CI FMStart: 09-14-2024 End: 19-76-5381Mblmme flowsheetYossi Landers MD Work Phone: [facility] CI FMStart: 09-14-2024 End: 04-87-9369Jupirg outpatient visit 25 minutesDadavid Landers MD Work Phone: [facility] CI FMComment on above: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) (Primary Dx)Start: 09-14-2024 End: 46-48-9409xaptkmrktoQTAIDT B BERRYNot AvailableStart: 09-07-2024 End: 60-25-4096acwuuumnwkCTUJCF B BERRYNot AvailableStart: 08-23-2024 End: 53-74-2223Ribhcxtbz encounterHeaephraim Mejia RN Work Phone: noms FNR FMStart: 11-17-3435Xua-patient / Non-visit Yossi Landers II Work Phone: [facility] Work Phone: Start: 08-13-2024 End: 53-10-5294qxsywdwwolDodmgo Berry II Work Phone: [facility] Work Phone: Start: 08-13-2024 End: 63-62-8834Swrkfdoh ReferredYossi Landers II Work Phone: [facility] HospStart: 08-13-2024 End: 97-89-1227Fkglydktz Result EncounterGeneric External Data ProviderNOMS External Department UnsolicitedStart: 08-13-2024 End: 39-72-8899Hrjkdxmcf Result EncounterGeneric External Data ProviderNOMS External Department UnsolicitedStart: 08-06-2024 End: 55-20-5517RmzohxSxhyxm B Berry MD Work Phone: [facility] CI FMComment on above:NauseaDegenerative lumbar spinal stenosis; Depression with anxietyStart: 07-29-2024 End: 90-58-6774Bqklfh flowsEligiodarien William DO Work Phone: [facility] FNR PULMStart: 07-29-2024 End: 55-86-9996Ybvqcf Gricel William DO Work Phone: NOWZ FNR PULMStart: 07-29-2024 End: 15-01-9595Clfxew outpatient new 45 minutesKristen William DO Work Phone: NOHA FNR PULMComment on above:Hypersomnolence (Primary Dx); Panlobular emphysema (CMS/HCC)Start: 07-29-2024 End: 09-77-9922zdehnevsyxBSXTBZDaniele Parks AvailableStart: 07-25-2024 End: 99-58-5184Ueriml flowsGaudencio Landers MD Work Phone: [facility] CI FMStart: 07-25-2024 End: 78-71-7321Wxhywh Marisol Landers MD Work Phone: [facility] CI FMStart: 07-25-2024 End: 57-52-5475Ufcaub outpatient visit 25 minutesYossi Landers MD Work Phone: [facility] CI FMComment on above:Panlobular emphysema (CMS/HCC) (Primary Dx); Moderate recurrent major depression (CMS/HCC); Depression with anxiety; Exudative age-related macular degeneration, unspecified eye, stage unspecified (CMS/HCC); 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)Start: 07-25-2024 End: 37-14-8273xpnkpxihdyCYCXFV B BERRYNot AvailableStart: 07-21-2024 End: 63-09-3550Asenwvs encounter procedureAlessandro Levi DPM Work Phone: [facility] CI PODIATRYComment on above:Type 2 diabetes mellitus with diabetic neuropathy, without long-term current use of insulin (CMS/HCC) (Primary Dx); Pain due to onychomycosis of toenails of both feet; Venous insufficiencyStart: 07-21-2024 End: 85-48-1394kuqtcymcsdZFKYWFRP A BROWNNot AvailableStart: 07-21-2024 End: 17-39-1770Gxxwjm Hellen Levi DPM Work Phone: [facility] CI PODIATRYStart: 07-21-2024 End: 82-66-4693Yrpdly Hellen Levi DPM Work Phone: [facility] CI PODIATRYStart: 07-12-2024 End: 26-74-9108Uniezs outpatient visit 15 minutesHijosué Ojeda MD Work Phone: [facility] CI ENTComment on above:Nontoxic single thyroid nodule (CMS/HCC) (Primary Dx)Start: 07-12-2024 End: 34-90-3405pnceuukgqdKFTGQK H TIMMISNot AvailableStart: 07-03-2024 End: 53-38-3194YsvfwvYaqej M Hemmer PA Work Phone: [facility] CI FMComment on above:Degenerative lumbar spinal stenosis; Depression with anxietyStart: 06-10-2024 End: 63-25-8251Qvygbw Marisol Landers MD Work Phone: [facility] CI FMStart: 06-10-2024 End: 95-29-4919Uuaoza Marisol Landers MD Work Phone: [facility] CI FMStart: 06-10-2024 End: 73-77-8650Hpyadb outpatient visit 25 minutesYossi Landers MD Work Phone: [facility] CI FMComment on above:Panlobular emphysema (CMS/HCC) (Primary Dx); COPD with acute exacerbation (CMS/HCC); Acute cystitis without hematuria; Symptomatic cholelithiasis; 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); Depression with anxietyStart: 06-10-2024 End: 18-84-9673norqggtjtlWSQLYH B BERRYNot AvailableStart: 05-31-2024 End: 03-10-2886XawichVdpkhe B Berry MD Work Phone: [phone] CI FMComment on above:Degenerative lumbar spinal stenosis; Depression with anxietyStart: 05-28-2024 End: 64-10-4661Pumhkxumm Result Parveen Ojeda MD Work Phone: [phone] External Department UnsolicitedStart: 05-28-2024 End: 50-82-6182Wqfyxduoe Result EncounterBel Ojeda MD Work Phone: [phone] External Department UnsolicitedStart: 05-27-2024 End: 81-42-6486Jidwfwmdp Result EncounterYossi Landers MD Work Phone: [facility] External Department UnsolicitedStart: 05-27-2024 End: 91-34-2527Zhbkubxrh Result EncounterYossi Landers MD Work Phone: [phone] External Department UnsolicitedStart: 05-16-2024 End: 66-70-9511Ikbiuq Marisol Landers MD Work Phone: [phone] CI FMStart: 05-16-2024 End: 95-40-9783Qisutv Marisol Landers MD Work Phone: [phone] CI FMStart: 05-16-2024 End: 38-01-0529Rlzvkh outpatient visit 25 minutesDadavid Landers MD Work Phone: [phone] CI FMComment on above:Panlobular emphysema (CMS/HCC) (Primary Dx); 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); Symptomatic cholelithiasisStart: 05-16-2024 End: 90-47-9250qxectojecjLPJOXM B BERRYNot AvailableStart: 05-03-2024 End: 24-64-9353quxswwvzaoWAGTWD B BERRYNot AvailableStart: 05-02-2024 End: 70-87-6971Yqeqhy Marisol Landers MD Work Phone: [facility] CI FMStart: 05-02-2024 End: 93-04-1353Iuogal Marisol Landers MD Work Phone: [facility] CI FMStart: 05-02-2024 End: 70-51-4262Iwbdzo outpatient visit 25 minutesDadavid Landers MD Work Phone: [facility] CI FMComment on above:Type 2 diabetes mellitus with diabetic neuropathy, without long-term current use of insulin ([facility]) (Primary Dx); Degenerative lumbar spinal stenosis; Allergic rhinitis, unspecified; Depression with anxiety; 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); Panlobular emphysema (CMS/[facility]); Symptomatic cholelithiasisStart: 05-02-2024 End: 02-96-2413vutnlyteeqRWCTLF B BERRYNot AvailableStart: 04-28-2024 End: 70-97-3312Vfkuai Hellen Levi DPM Work Phone: [facility] CI PODIATRYStart: 04-28-2024 End: 46-35-4038Nxdlam Hellen Levi DPM Work Phone: [facility] CI PODIATRYStart: 04-28-2024 End: 11-90-3976Xjqnlth encounter Carrillo Levi DPM Work Phone: [facility] CI PODIATRYComment on above:Type 2 diabetes mellitus with diabetic neuropathy, without long-term current use of insulin ([facility]) (Primary Dx); Pain due to onychomycosis of toenails of both feet; Venous insufficiencyStart: 04-28-2024 End: 82-16-9413geykqmypqaGPAFGSYS A BROWNNot AvailableStart: 2024 End: 66-43-4160YebccpEdupig H Timmis MD Work Phone: [facility] CI ENTComment on above:Sore throatStart: 03-30-2024 End: 87-66-4392IyrvxdYniidt B Berry MD Work Phone: [facility] CI FMComment on above:Depression with anxiety; Degenerative lumbar spinal stenosisStart: 03-08-2024 End: 48-61-3884wepznfyyehSxahkkq A. MouchliFacility:FTMCStart: 03-08-2024 End: 06-32-1127Hztagkm encounter procedureMandi Glez [facility] Start: 03-02-2024 End: 73-00-4712HrwwkkWbyzqFadi PALACIOS Work Phone: [facility] CI FMComment on above:Depression with anxiety; Degenerative lumbar spinal stenosisStart: 02-18-2024 End: 90-93-6837Wfzwjf flowsheetAlessandro Levi DPM Work Phone: [facility] CI PODIATRYStart: 02-18-2024 End: 35-77-9711Lbhghs flowsheetAlessandro Levi DPM Work Phone: [facility] CI PODIATRYStart: 02-18-2024 End: 56-42-2696Xzrndf outpatient new 30 minutesNicedgar Levi DPM Work Phone: [facility] CI PODIATRYComment on above:Venous insufficiency (Primary Dx); Thickened nail; Type 2 diabetes mellitus with diabetic neuropathy, without long-term current use of insulin ([facility]); Onychomycosis; Toe pain, bilateralStart: 02-03-2024 End: 90-57-5052gtsrdzgxhvAhkxjoq A. MouchliFacility:FTMCStart: 02-03-2024 End: 77-07-5017Rdxwxgf encounter procedureMandi Glez [facility] Start: 01-04-2024 End: 39-97-8757Ruqftehcd Result EncounterDadavid Landers MD Work Phone: NOMS External Department UnsolicitedStart: 01-04-2024 End: 70-55-2267Utowqsvps Result EncounterDadavid Landers MD Work Phone: NOZL External Department UnsolicitedStart: 12-21-2023 End: 06-56-9701rronwzmbqhTcznupt A. MouchliFacility:German DHStart: 12-21-2023 End: 76-48-4058Rnofqpu encounter procedureMandi Glez [phone]-RmcidDayton [facility] Start: 74-25-1462jpazesrpapXbmbkra Mouchli Facility:[facility] DHStart: 11-20-2023 End: 78-44-3192Cfwoexpms Result EncounterYossi Landers MD Work Phone: NOMS External Department UnsolicitedStart: 11-20-2023 End: 63-94-0910Bevyiroso Result EncounterYossi Landers MD Work Phone: [facility] External Department UnsolicitedStart: 08-03-2023 RefillAimee Thursday CLIENT RETENTION SPECIALIST Work Phone: [facility] CI FMComment on above:Degenerative lumbar spinal stenosis; Depression with anxietyStart: 83-98-1818RijxmfUgutqa B Berry MD Work Phone: [facility] CI FMComment on above:Essential hypertension (CMS/HCC)Start: 06-01-2023 End: 36-72-3126Nklskayaz Result EncounterBel Ojeda MD Work Phone: [facility] External Department UnsolicitedStart: 06-01-2023 End: 94-29-8023Qwwfcjnwz Result EncounterBel Ojeda MD Work Phone: N[facility]S External Department UnsolicitedStart: 10-15-2022 End: 36-16-3631Rgaernojcq and management of inpatientJESSICA CARMEN .Facility:H1 Start: 10-14-2022 End: 08-32-6951jpaqhkjjggLBZL LEFacility:S2Tdapz: 08-24-2022 End: 64-92-1772wexcvumnpbBHXSMOB D KATKOFacility:M8Hqqxy: 05-29-2022 End: 51-42-4636cpodrziocxHQYUAY TIMMISFacility:H7Gwnfu: 19-54-7136Sipidvp encounter jinkmlipxFVIW70SM09 [facility] 01 Work Phone: [phone]-[facility]lcvx[facility] [address] [place] Work Phone: Start: 36-21-1803xfxbntmrpbRb. Mourhaf Traboulssi Facility:[id number]: 03-15-9913Fkhfpv outpatient visit 25 minutesXochitl Hernandez MD Work Phone: [phone]-OjqrqLakewood Health Center 250 DO Work Phone: Start: 01-07-2022 End: 36-22-9236gzrciewfdtKQCARA TIMMISFacility:A0Tprus: 12-30-2021 End: 27-61-8483wrotcfmmsaDB DANIEL BERRYFacility:K3Hyotc: 12-05-2021 End: 02-85-0643gqsrvkjsghQI DANIEL BERRYFacility:J8Kzmbl: 77-22-7181sqluknlqqb Dr. Xochitl HargroveiFacility:[id number]: 24-85-0427Cjghbw outpatient visit 25 minutesXochitl Hernandez MD Work Phone: [phone]-KuefiLakewood Health Center 250 DO Work Phone: Procedures DateProcedureProcedure DetailPerforming ClinicianStart: 43-90-2395GXBMR CULTURE - FRMCGeneric External Data ProviderStart: 01-18-2025H/O: surgeryHistory of gastric surgeryYossi Landers MD Work Phone: Start: 08-30-4101OCPSQ CULTURE - FRMCGeneric External Data ProviderStart: 73-11-7832DQSKJ CULTURE 2Generic External Data Provider Start: 38-55-2735MROMG CULTURE 1Generic External Data ProviderStart: 08-13-2024 URINE CULTURE - FRMCGeneric External Data ProviderStart: 36-25-4266Przuq culture Yossi Landers II Work Phone: Start: 87-51-5972Yq soft tissue head & neck real time imge Jeff Ojeda MD Work Phone: Start: 86-19-4993YA ECHO DOPPLER Wilbur Landers MD Work Phone: Start: 06-79-6971Ozuhtgtou rspse spmtry pre&post- brncdilat Mary Landers MD Work Phone: Start: 59-72-1811Lrcgvoncfw glycosylated h4uHrtgbbYossi Landers MD Work Phone: Start: 97-49-4079SwgggbwefdylyImcgxmv Mouchli Start: 78-56-2748XbqrwgrbxylWxegtcb [place]li Start: 91-68-6798WysrsbnffswnwlordxesblyylpQyjzvzo M[place]li Start: 76-58-5253XO HEPATOBILIARY SCAN W PHARMACOLOGICAL INTERVENTIONYossi Landers MD Work Phone: Start: 07-26-1358IT Ribs - left and Chest ViewsYossi Landers MD Work Phone: Start: 99-01-1521Qr soft tissue head & neck real time imge Jeff Ojeda MD Work Phone: ColonoscopyXochitl Hernandez MD Work Phone: H/O: surgeryHistory of gastric surgeryMohamad Mouchjalen Hernia repairMotamir Hernandez MD Work Phone: HysterectomyXochitl Hernandez MD Work Phone: Procedure on backMotamir Hernandez MD Work Phone: Surgical procedureXochitl Hernandez MD Work Phone: Plan of Treatment DateCare ActivityDetailAuthorStart: 06-07-2025 End: 40-24-9231Jmyevis encounter okemgxyhj51/17/2025 11:00 AM EST Office Visit [facility] [facility] [address] [place] [address] Yossi Landers MD [address] [place] [address] [facility] [place] [facility]: 04-07-2025 End: 76-66-9788Hxpoxig encounter ovenqlyuc61/17/2025 11:00 AM EDT Office Visit [facility] [address] [place], [place] [address] Yossi Landers MD [address] [place] [address] ArrivedNOMS [place] Family MedinceComment on above:ArrivedStart: 04-06-2025 End: 76-84-4295Umhdrgz encounter ynrznxtpb92/16/2025 11:15 AM EDT Office Visit [facility] [place] [facility] [address] [place] [address] Yossi Landers MD [address] [place] [address] [facility] [place] [facility] MedinceStart: 03-27-2025 End: 09-65-7836Epywdza encounter procedureNOMS [place] Family MedinceComment on above:ArrivedStart: 03-01-2025 End: 08-98-2802Nrrdchv encounter /10/2025 10:00 AM EDT Office Visit [facility] [place] [facility] [address] [place] [address] Anne Serrano, MELISSA [address] [place] [address] ArrivedNOMS [place] Family MedinceComment on above:ArrivedStart: 02-23-2025 End: 87-37-5206Iwscnke encounter procedureNOMS [place] Family MedinceComment on above:ArrivedStart: 96-30-2213Qulobftmr vaccinationNOLA HealthcareStart: 48-29-3908Gtvew cultureMiddletown Hospitaltart: 02-19-2025 Bacteria identified in Urine by CultureUrine [facility] Hospitaltart: 01-30-2025 End: 06-78-4262Adaikkp encounter /11/2025 2:15 PM EDT [facility] [place] [facility] [address] [facility] [address] [place] [address] Yossi Landers MD [address] [facility] [address] [place] [address] [facility] [place] [facility] HospitalnceStart: 01-27-2025 Urine screening for proteinDiabetes: Urine [facility]ening[facility] Healthcare Start: 01-16-2025 End: 03-35-0253Oymqzea encounter tnearmxgy75/28/2025 11:30 AM EDT Office Visit [facility] [place] [facility] [address] [facility] [address] [place] [address] Yossi Landers MD [address] [facility] [address] [place] [address] ArrivedNOLA [place] [facility] White HospitalnceComment on above:ArrivedStart: 01-09-2025 End: 01-12-9022Optmeti encounter procedureNOMS CI FMComment on above:Arrived Start: 12-29-2024 End: 42-87-7671Ltoqdhi encounter ysaocfeym36/10/2025 2:30 PM EDT Office Visit [facility] [address] [place] [address] Yen Auguste PA [address] [place] [address] ArrivedNOMS BCP OBComment on above:ArrivedStart: 12-08-2024 Hemoglobin A1c measurementDiabetes: Hemoglobin I2BHFKX HealthcareStart: 11-07-2024 End: 08-63-4917Uqnwuuhbtnnux metabolic 2000 panel - Serum or PlasmaComprehensive metabolic panel Lab Routine Chronic combined systolic and diastolic congestive heart failure ([facility]) Expected: 11/07/2024 (Approximate), Expires: 11/07/2025 [facility] Work Phone: Comment on above:Expected: 11/07/2024 (Approximate), Expires: 11/07/2025Start: 11-07-2024 End: 18-10-0977Ototy 1996 panel - Serum or PlasmaLipid panel Lab Routine Chronic combined systolic and diastolic congestive heart failure ([facility]) Expected: 11/07/2024 (Approximate), Expires: 11/07/2025NOLA HealthcareComment on above: Expected: 11/07/2024 (Approximate), Expires: 11/07/2025Start: 11-07-2024 End: 43-23-0614Yztzhhptoaq [Units/volume] in Serum or PlasmaTSH Lab Routine Chronic combined systolic and diastolic congestive heart failure ([facility]) Expected: 11/07/2024 (Approximate), Expires: 11/07/2025NOLA HealthcareComment on above:Expected: 11/07/2024 (Approximate), Expires: 11/07/2025Start: 11-07-2024 End: 62-20-7041Zltudqjul (T4) free [Mass/volume] in Serum or PlasmaT4, free Lab Routine Chronic combined systolic and diastolic congestive heart failure ([facility]) Expected: 11/07/2024 (Approximate), Expires: 11/07/2025NOLA Healthcare Comment on above:Expected: 11/07/2024 (Approximate), Expires: 11/07/2025Start: 11-07-2024 End: 14-83-2904Aqixtoh encounter procedureNOMS CI FMComment on above:Arrived Start: 10-07-2024 End: 66-41-7121Vlszxxs encounter yxqhhjmvp35/18/2025 10:30 AM EDT Office Visit [facility] [address] [place] [address] Can Mason PA [address] [place] [address] NOMS CI FMStart: 10-06-2024 End: 58-95-4192Phlgbwg encounter procedureNOMS CI PODIATRYStart: 10-01-2024 Bacteria identified in Urine by CultureUrine [facility] Hospitaltart: 13-56-3439Taqeu cultureMiddletown Hospitaltart: 09-29-2024 End: 45-44-4366Vdkdajg encounter hxtubcqdy67/10/2025 11:00 AM EDT Office Visit [facility] [address] [place] [address] Can Mason PA [address] [place] [address] ArrivedNOMS CI FMComment on above:ArrivedStart: 09-23-2024 End: 22-21-6983Cenarkk encounter gzemecqav77/04/2025 11:00 AM EDT Office Visit [facility] [address] [place] [phone] Kristen William, DO [address] [place] [address] NOMS FNR PULMStart: 09-22-2024 End: 52-50-4269Zddfpjr encounter wkmtlwzwe75/03/2025 11:30 AM EDT Office Visit [facility] [address] [facility] [address] [place] [address] Yossi Landers MD [address] [place] [address] NOMS CI FMStart: 09-14-2024 End: 61-25-1981Kdqmfbi encounter hedrifcuf05/26/2025 11:15 AM EDT Office Visit [facility] FM [address] [place] [address] Yossi Landers MD [address] [place] [address] ArrivedNOMS CI FMComment on above:ArrivedStart: 08-13-2024 Urine cultureMiddletown Hospitaltart: 20-48-5661Swbaxalm identified in Urine by CultureUrine [facility] Start: 02-92-1777Akzlnhcmef A1c measurementDiabetes: Hemoglobin N4LPHPO HealthcareStart: 07-29-2024 End: 67-23-7723Ohvdsca encounter procedureNOMS FNR PULMComment on above: Panlobular emphysema ([facility]/HCC)Start: 07-25-2024 End: 36-35-1109Qgblbtl encounter procedureNOMS CI FMComment on above:Arrived Start: 07-21-2024 End: 86-91-7297Viialng encounter procedureNOMS CI PODIATRYComment on above:Type 2 diabetes mellitus with diabetic neuropathy, without long-term current use of insulin ([facility]) (Primary Dx); Pain due to onychomycosis of toenails of both feet; Venous insufficiencyStart: 07-12-2024 End: 49-52-6681Xislggi encounter johgpkxva16/21/2025 2:20 PM EST Office Visit [facility] ENT [address] [facility] [address] [place] [address] Bel Ojeda MD [address] [facility] [address] [place] [address] NOMS CI ENTStart: 07-07-2024 End: 93-54-0502Qlkozjt encounter usbbfyely22/16/2025 1:40 PM EST Office Visit [facility] PODIATRY [address] [facility] [address] [place] [address] Alessandro Levi, DPAnnette [address] [facility] [address] [place] [address] NOMS CI PODIATRYStart: 06-30-2024 End: 06-33-6823Mhuloey encounter thnhdsfar15/09/2025 11:45 AM EST Office Visit [facility] CI FM [address] [facility] [address] [place] [address] Yossi Landers MD [address] [facility] [address] [place] [address] NOMS CI FMStart: 06-10-2024 End: 32-71-3531Bmxhfbq encounter procedureNOMS CI FMComment on above:Arrived Start: 05-16-2024 End: 00-17-0215Ftqcksi encounter procedureNOMS CI FMComment on above:Arrived Start: 05-02-2024 End: 65-53-6623Prjjxfa encounter qweowfqoq56/11/2024 11:30 AM EST Office Visit [facility] CI FM [address] [facility] [address] [place] [phone] Yossi Landers MD [address] [facility] [address] [place] [address] NOMS CI FMStart: 04-28-2024 End: 71-72-5976Ohzwewm encounter procedureNOMS CI PODIATRYComment on above:Type 2 diabetes mellitus with diabetic neuropathy, without long-term current use of insulin (CMS/[facility]) (Primary Dx); Pain due to onychomycosis of toenails of both feet; Venous insufficiencyStart: 85-35-5466Mxdpgsogmy A1c measurementDiabetes: Hemoglobin K7PNLFM HealthcareStart: 73-67-8979Xwdwnwrhx vaccinationInfluenza Vaccine (#1)[facility] HealthcareStart: 02-18-2024 End: 67-72-5994Eyvadgf encounter ozbrgrhxb17/29/2024 1:20 PM EDT Office Visit [facility] POD[facility]ATRY [address] [facility] [address] [place] [address] Alessandro Levi DPM [address] [facility] [address] [place] [address] Thickened nail; Type 2 diabetes mellitus with diabetic neuropathy, without long-term current use of insulin (CMS/HCC)[facility] PODIATRY Comment on above:Thickened nail; Type 2 diabetes mellitus with diabetic neuropathy, without long-term current use of insulin (CMS/HCC)Start: 08-21-2024Medicare Annual Wellness (AWV)Medicare Annual Wellness (AWV)NOMS HealthcareStart: 08-10-2023 End: 17-52-6348Gefkxuj encounter procedureNOMS CI FMStart: 23-64-8978Cedikflrep A1c measurementDiabetes: Hemoglobin Z4EUSSE HealthcareStart: 84-68-3466Wnjmexbti vaccinationInfluenza Vaccine (#1)[facility] HealthcareStart: 90-23-3071QCO, Provider: Xochitl Hernandez, Status: Pen, Time: 2:20 PMFUV, Provider: Xochitl Hernandez, Status: Pen, Time: 2:20 PMMP-[facility] [address] DO Work Phone: Start: 19-25-1997MTXDKFZ, Provider: ERICA HHVI ULTRASOUND 01,[id number], Status: Pen, Time: 10:45 AMCAROTID, Provider: ERICA HHVI ULTRASOUND 01,[id number], Status: Pen, Time: 10:45 AMMP-[facility] [address] DO Work Phone: Start: 67-01-7051AFY, Provider: Xochitl Hernandez, Status: Pen, Time: 2:40 PMFUV, Provider: Xochitl Hernandez, Status: Pen, Time: 2:40 PMMP-[facility]rica 250 DO Work Phone: Start: 48-29-9451BMJR, Provider: ERICA STALLWORTHI ULTRASOUND 01,[id number], Status: Pen, Time: 10:45 AMECHO, Provider: ERICA HHVI ULTRASOUND 01,[id number], Status: Pen, Time: 10:45 AMMP-[facility] 250 DO Work Phone: Start: 66-07-5639Liegknon screeningDiabetes: Retinopathy ScreeningNOLA HealthcareStart: 90-00-3085Ryfgqkfimdje Vaccine: 65+ Years (2 - PPSV23 or PCV20)Pneumococcal Vaccine: 65+ Years (2 - PPSV23 or PCV20) [facility] HealthcareStart: 38-38-5991Mmxxmaqertcj Vaccine: 65+ Years (2 of 2 - PPSV23 or PCV20)Pneumococcal Vaccine: 65+ Years (2 of 2 - PPSV23 or PCV20)[facility] HealthcareStart: 83-19-2680Kjoyydkxqfrn Vaccine: 65+ Years (2 of 2 - PPSV23) Pneumococcal Vaccine: 65+ Years (2 of 2 - PPSV23)[facility] HealthcareBasic metabolic 1998 panel - Serum or PlasmaBasic metabolic panel Lab Routine Bilateral lower extremity edema Ordered: 10/07/2024[facility] Healthcare Work Phone: Comment on above:Ordered: 10/07/2024LOOD CULTURE 1 BLOOD CULTURE 1 Lab Routine 09/27/2024 12:40 PM EDTChristian HospitalBLOOD CULTURE 2BLOOD CULTURE 2 Lab Routine 09/27/2024 12:46 PM EDSt. [facility] HospitalCBC W Auto Differential panel - BloodCBC and differential Lab Routine 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) Ordered: 11/07/2024 [facility] HealthcareComment on above:Ordered: 11/07/2024Echocardiogram 2D complete Echocardiogram 2D complete Echocardiography Routine 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) Ordered: 05/02/2024[facility] Healthcare Work Phone: Comment on above:Ordered: 05/02/2024URINE CULTURE - [facility] Lab Routine 08/13/2024 5:00 PM [facility] Lab Routine 10/01/2024 8:35 AM EDSt. [facility] HospitalURINE [facility]ULT[facility] - [facility] Lab Routine 02/19/2025 9:25 PM EDSt. [facility] Immunizations Immunization DateImmunizationNotesCare EjomdhohNaublvdf23-88-5639Lzunuvhfqjlh Conjugate PCV 20Dadavid Landers MD Work Phone: [facility] HospitalJfgntqotfd19-76-8409Bihysz-FbbVVaqw COVID-19 Vacc 30 MCG/0.3ML Intramuscular SuspensionXochitl Hernandez MD Work Phone: [phone]-Ivqin [facility] [address] DO Work Phone: [phone]-PwoWVarm COVID-19 Vacc 30 MCG/0.3ML Intramuscular SuspensionXochitl Hernandez MD Work Phone: [phone]-QwhmvLakewood Health Center 250 DO Work Phone: [phone]) [phone]penkaxrgnzv conjugate vaccine, 13 valphilipp Hernandez MD Work Phone: [phone]-EmjqhLakewood Health Center 250 DO Work Phone: [phone]) [phone]zvwqtfyu conjugate vaccine, 13 valphilipp Hernandez MD Work Phone: NOSaint John's HospitalHjfpgnctev95-18-6137jcsbeo vaccine, Becka Hernandez MD Work Phone: NOSaint John's HospitalHclbtzcrft35-94-1884uxmyjn vaccineBecka MD Work Phone: [facility] Healthcare Payers DatePayer CategoryPayerPolicy [id number] MEDICARE ADVANTAGE HUMANA MEDICARE [id number] 2022-Present [address] [address] [place] [address] [id number] 2023Medicare (Managed Care) [id number] Health [id number] [id number] [id number] 2.16.840.1.932911.3.579.2.783208-12-2798Uplinqt [id number] 2.16.840.1.944621.3.57[id number] 2.16.840.1.684971.3.57[id number] 2.16.840.1.736827.3.57[id number] 2.16840.1.896967.3.57[id number] 2.16840.1.304310.3.57[id number] 2.16840.1.015296.3.57[id number] 2.16840.1.030928.3.57[id number] 2.840.1.805736.3.57[id number] 2.840.1.297448.3.57[id number] 2.840.1.301930.3.57[id number] 2.840.1.352464.3.57[id number] 2.84.1.307768.3.57[id number] 2.840.1.072350.3.57[id number] 2.16840.1.750999.3.57[id number] 2.16840.1.277066.3.57[id number] 2.840.1.283678.3.57[id number] 2.16840.1.997288.3.57[id number] 2.0.1.303968.3.57[id number] 2.16840.1.971676.3.579.[id number] 2.160.1.734695.3.57[id number] 2.0.1.627957.3.57[id number] 2..1.047906.3.57[id number] 2.0.1.460873.3.57[id number] 2.0.1.005270.3.579.2.480872-90-5537Xbgmaxu4427934 2..1.464076.3.579.2.917119-05-3131Odhzdcb8447779 2..1.605132.3.57[id number] 2.0.1.419504.3.579.2.[id number] 2.0.1.884416.3.579.2.769451-51-2620Vuqxkxb0863551 2.840.1.846944.3.579.2.128165-48-0158Qqwgsce8148063 2.840.1.403453.3.579.2.147081-55-6640Hhuencc5321217 2.0.1.725600.3.579.2.589594-76-6019Pvcphvk0019554 2..0.1.410984.3.579.2.057393-46-5247Arkwzxf8228583 2..0.1.985847.3.579.[id number] 2..840.1.208945.3.579.2.1259Unknown Social History DateTypeDetailFacilityStart: 11-12-2022 End: 56-11-1358Jv alcohol useNo alcohol useNOMS HealthcareComment on above:4-5 servings daily;quit 1995, 2ppd;Start: 11-20-2022 End: 65-63-1858Eqfzxyp smoking status NHISEx-smokerNOMS Healthcare Work Phone: End: 79-83-7974Llfspic of tobacco useCurrent smokerNOMS Healthcare End: 79-08-6303Jjhpsly of tobacco useCigarette SmokerNOMS HealthcareStart: 11-20-2022 End: 86-17-5518Minosxt use and exposureSmokeless tobacco non-userNOMS Healthcare Start: 05-11-2023 End: 84-33-8198Euypszz intakeEx-drinker (finding)NOMS HealthcareStart: 11-12-2022 End: 75-50-4104Fmcfmelxpvs, Afraid, Rape, and Kick questionnaire [HARK]NOMS HealthcareWithin the last year, have you been afraid of your partner or ex-partner?NoNOMS HealthcareAre you now , , , , never or living with a partner?MarriedNOMS HealthcareHow hard is it for you to pay for the very basics like food, housing, medical care, and heatingNot very hardNOMS HealthcareDo you feel stress - tense, restless, nervous, or anxious, or unable to sleep at night because yourmind is troubled all the time - these days [OSQ]Not at allNOMS Healthcare(I/We) worried whether (my/our) food would run out before (I/we) got money to buy more.Never trueNOMS Healthcare Start: 89-77-8492Go the past 12 months, has lack of transportation kept you from medical appointments or from getting medications?NoNOMS HealthcareStart: 23-45-2854Gddkvym Commentcaffeine intake: 2-3 cups per day of coffeeNOMS HealthcareStart: 82-21-0429Cxr Assigned At BirthNot on fileNOMS HealthcareHow often to you have a drink containing alcohol?NeverNOMS HealthcareStart: 08-15-2024 End: 78-62-9187IstTynqez (finding)[facility] Hospitaltart: 89-86-1415Jfq Assigned At Critical Access HospitalFeOhio State Harding HospitalHow often do you need to have someone help you when you read instructions, pamphlets, or other written material from your doctor or pharmacy [SILS]SometimesNOMS Healthcare Work Phone: Start: 05-01-2023 End: 88-00-9773Esuxladn to SARS-CoV-2 (event)Not sureNOMS Healthcare Medical Equipment Procedure CodeEquipment CodeEquipment Original TextEquipment IdentifierDates [id number]: [id number] 1 LANCET TO TEST BLOOD SUGAR ONCE [id number] Start: 11-05-2022 Functional Status MfreNmctwxopxmFrrlfpGjchggvb42-24-8942Hgfgpmp Health Questionnaire 2 item (PHQ- 2) [Reported]Christian HospitalYvnsipwayq19-41-6455Ksxjwdt Health Questionnaire 2 item (PHQ- 2) [Reported]Christian HospitalYbgyuzbsyp66-71-6538Dysescf Health Questionnaire 2 item (PHQ- 2) [Reported]Christian HospitalEimegskvxp67-45-6788Atbjrfi Health Questionnaire 2 item (PHQ- 2) [Reported]Christian HospitalKhapyhdkqu61-68-7311Nxyutet Health Questionnaire 2 item (PHQ- 2) [Reported]Christian HospitalNkaihhtxyr40-81-9349DPW-5 quick depression assessment panel [Reported.PHQ]Christian HospitalWeintoskrj51-53-8187Outfmjf Health Questionnaire 2 item (PHQ- 2) [Reported]Christian HospitalVoyitvylum95-67-2755Pqvrneu Health Questionnaire 2 item (PHQ- 2) [Reported]Christian HospitalZsocnkprhk92-10-7931VFC-1 quick depression assessment panel [Reported.PHQ]Christian HospitalUbtggodhpe22-45-6124Wskyury Health Questionnaire 2 item (PHQ- 2) [Reported]Christian HospitalUljgndnixp77-86-2671Mokgiewnha StatusN/[facility]08-20-2024Total score [AUDIT-C]0 02/09/2024 4:23 PM EDT ThursdayLara LPNNMercy Hospital St. John'sXmngixarqq57-99-2779Veblnnamxv StatusN/[facility]ive Fjxkiv53-45-2803Dlqcrin Health Questionnaire 2 item (PHQ-2) [Reported] [facility] Clinical Notes 10-15-2020 to 04-07-2025 Note Date & HsueNsryPxbxztrb27-92-3786 History of Present illness Narrative* Yossi Landers MD - 04/07/2025 11:00 AM EDT Images from the original note were not included. HPI Med Refill Additional comments: [facility]ax,[facility]codone[facility] Last edited by Kimberly Sanchez LPN on 04/07/2025 11:18 AM. Subjective Patient ID: Jaquelin Norwood is a 84 y.o. female who presents for neck/shoulder pain, Congestive Heart Failure, and Med Refill (Xanax,[facility]codone--[facility]). Follow up left shoulder and arm pain Pt finished medrol dose pack and states it did help the pain is not as bad but is not completely resolved She states it seems worst in AM Reports she does have some numbness/tingling in left hand Does need some refills today Congestive Heart Failure Med Refill Current Outpatient Medications on File [...] day as needed for anxiety 90 tablet 3 aspirin 81 MG EC tablet Take 81 [...] (150 mg) by mouth in the morning. Donot crush, chew, or split. 30 tablet 11 [...] BY MOUTH EVERY DAY 100 tablet 3 Zmdimgfjwbt-Oqfzwifzw-Rpftrk (Trelegy Ellipta) 100-62.5-25 MCG/ACT aerosol powder Inhale 1 puff Daily 3 each 3 gabapentin (Neurontin) 100 MG capsule Take 2 capsules (200 mg) by mouth in the morning and 2 capsules (200 mg) before bedtime. 360 capsule 3 glucose blood (True Metrix Blood Glucose Test) test strip 1 each by Other route 1 (one) time each day at the same time. HYDROcodone-acetaminophen (Verona) 5-325 MG tablet Take 1 tablet by mouth every 6 (six) hours if needed for severe pain 120 tablet 0 Lancets (OneTouch Delica Plus Fhiesw62I) [facility] USE 1 LANCET TO [...] (constipation) torsemide (Demadex) 10 MG tablet Take 2 tablets (20 mg) by mouth Daily 100 tablet 0 [DISCONTINUED] methylPREDNISolone (Medrol Dospak) 4 MG tablets Follow schedule on package instructions 21 tablet 0 No current facility-administered medications on file prior [...] of bladder Left thyroid nodule Morbid obesity ([facility]-HCC) 07/04/2019 Osteoarthrosis Peripheral vascular disease, unspecified Unspecified [...] present. Neurological: Mental Status: She is alert. Motor: Weakness and tremor present. Psychiatric: Mood and Affect: Mood normal. Thought Content: Thought content normal. Judgment: Judgment normal. Assessment/Plan Diagnoses and all orders for this visit: Cervical radiculitis Closed fracture of multiple ribs of right side, initial encounter - HYDROcodone-acetaminophen (Verona) 5-325 MG tablet; Take 1 tablet by mouth every 6 (six) hours if needed for severe pain - naloxone (Narcan) 4 mg/0.1 mL nasal spray; Administer 1 spray (4 mg) into affected nostril(s) if needed for opioid reversal May repeat every 2-3 minutes if needed, alternating nostrils, until medical assistance becomes available. Depression with anxiety - ALPRAZolam (Xanax) 0.25 MG tablet; Take 1 tablet (0.25 mg) by mouth 3 (three) times a day as needed for anxiety Other orders - Follow Up In Family Medicine; Future No follow-ups on file. documented in this encounterChristian HospitalHjukbcdxkx71-82-8465 History of Present illness Narrative* Yossi Landers MD - 03/27/2025 3:00 PM EDT Images from the original note were not included. Subjective Patient ID: Jaquelin Norwood is a 84 y.o. female who presents for No chief complaint on file.. Jaquelin presents today for a 1 month follow up from a fall out of bed and she broke her ribs on the right side. She did say about a week after the fall she started to have left arm/ shoulder pain that has just become worse over the last few weeks. She has paina nd numbness down to her hand. Over the past 2 weeks, how often have you been bothered by any of the following problems? Little interest or pleasure in doing things: Not at all Feeling down, depressed, or hopeless: Not at all Patient Health Questionnaire-2 Score: 0 Current Outpatient Medications on File Prior to Visit Medication Sig Dispense Refill [DISCONTINUED] torsemide (Demadex) 10 MG tablet Take 2 tablets (20 mg) by mouth Daily albuterol (2.5 MG/3ML) 0.083% nebulizer solution Take [...] day as needed for anxiety 90 tablet 3 aspirin 81 MG EC tablet Take 81 [...] (150 mg) by mouth in the morning. Donot crush, chew, or split. 30 tablet 11 [...] BY MOUTH EVERY DAY 100 tablet 3 Zqrfheeqmio-Xnxtpqtxv-Mxhayh (Trelegy Ellipta) 100-62.5-25 MCG/ACT aerosol powder Inhale 1 puff Daily 3 each 3 gabapentin (Neurontin) 100 MG capsule Take 2 capsules (200 mg) by mouth in the morning and 2 capsules (200 mg) before bedtime. 360 capsule 3 glucose blood (True Metrix Blood Glucose Test) test strip 1 each by Other route 1 (one) time each day at the same time. HYDROcodone-acetaminophen (Verona) 5-325 MG tablet Take 1 tablet by mouth every 6 (six) hours if needed for severe pain 120 tablet 0 Lancets (Local Offer NetworkTouch Delica Plus Hpyngj85O) [facility] USE 1 LANCET TO [...] g by mouth Daily as needed (constipation) No current facility-administered medications on file prior [...] of bladder Left thyroid nodule Morbid obesity ([facility]) 07/04/2019 Osteoarthrosis Peripheral vascular disease, unspecified Unspecified [...] THYROID SURGERY partial thyroidectomy Visit Vitals BP 114/64 Pulse 63 Resp 16 Ht 5' 5 Wt 196 lb SpO2 98% BMI 32.62 kg/m Smoking Status Former BSA 2.02 m Review of Systems Objective Physical Exam Constitutional: General: She is not in acute distress. Appearance: She is ill-appearing. Cardiovascular: Rate and Rhythm: Normal rate and regular rhythm. Heart sounds: No murmur heard. Pulmonary: Effort: Accessory muscle usage and prolonged expiration present. Breath sounds: Decreased air movement present. Neurological: Mental Status: She is alert. Motor: Weakness and tremor present. Psychiatric: Mood and Affect: Mood normal. Thought Content: Thought content normal. Judgment: Judgment normal. Assessment/Plan Diagnoses and all orders for this visit: Cervical radiculitis - methylPREDNISolone (Medrol Dospak) 4 MG tablets; Follow schedule on package instructions Chronic combined systolic and diastolic congestive heart failure (HCC) - torsemide (Demadex) 10 MG tablet; Take 2 tablets (20 mg) by mouth Daily No follow-ups on file. documented in this [facility]09-18-2025 Telephone encounter Note* Telephone Encounter - Yossi Landers MD - 03/09/2025 12:39 PM EDT Sent. [place] [id number] Miscellaneous Notes* Telephone Encounter - Yossi Landers MD - 03/09/2025 12:39 PM EDT Sent. documented in this [facility]09-15-2025 Telephone encounter Note* Telephone Encounter - PHILIP Magallanes - 03/06/2025 3:09 PM EDT OARRS reviewed, Rx sent into patient's pharmacy. [id number] Miscellaneous Notes* Telephone Encounter - PHILIP Magallanes - 03/06/2025 3:09 PM EDT OARRS reviewed, Rx sent into patient's pharmacy. documented in this [facility]09-10-2025 History of Present illness Narrative* Anne Serrano NP - 03/01/2025 10:00 AM EDT Images from the original note were not included. Subjective Patient ID: Jaquelin Norwood is a 84 y.o. female who presents for No chief complaint on file.. Jaquelin presents today for a 1 week follow up form having Rt side rib fractures. She fell off the bed 2 weeks ago. She is stilling having pain and was given Verona. Over the past 2 weeks, how often [...] (150 mg) by mouth in the morning. Donot crush, chew, or split. 30 tablet 11 [...] BY MOUTH EVERY DAY 100 tablet 3 Hialmuooyrh-Oeajzfaze-Ggettd (Trelegy Ellipta) 100-62.5-25 MCG/ACT aerosol powder Inhale 1 puff Daily 3 each 3 gabapentin (Neurontin) 100 MG capsule Take 2 capsules (200 mg) by mouth in the morning and 2 capsules (200 mg) before bedtime. 360 capsule 3 glucose blood (True Metrix Blood Glucose Test) test strip 1 each by Other route 1 (one) time each day at the same time. HYDROcodone-acetaminophen (Verona) 5-325 MG tablet Take 1 tablet by mouth every 6 (six) hours if needed for severe pain for up to 10 days 40 tablet 0 Lancets (OneTouch Delica Plus [id number]) [facility] [place] USE 1 LANCET TO [...] (constipation) torsemide (Demadex) 10 MG tablet Take 2 tablets (20 mg) by mouth Daily [DISCONTINUED] HYDROcodone-acetaminophen (Verona) 5-325 MG tablet No current facility-administered medications on file prior [...] of bladder Left thyroid nodule Morbid obesity ([facility]) 07/04/2019 Osteoarthrosis Peripheral vascular disease, unspecified Unspecified [...] Vitals Smoking Status Former Review of Systems Constitutional: Positive for unexpected weight change. HENT: Negative. Eyes: Negative. Respiratory: Positive for shortness of breath. Cardiovascular: Positive for chest pain. Gastrointestinal: Negative. Genitourinary: Negative. Musculoskeletal: Negative. Skin: Negative. Neurological: Negative. Psychiatric/Behavioral: Negative. Endocrine: Negative. Objective Physical Exam Vitals reviewed. Constitutional: Appearance: Normal appearance. HENT: Head: Normocephalic. Nose: Nose normal. Mouth/Throat: Mouth: Mucous membranes are moist. Pharynx: Oropharynx is clear. Eyes: Conjunctiva/sclera: Conjunctivae normal. Cardiovascular: Rate and Rhythm: Normal rate and regular rhythm. Pulmonary: Effort: Pulmonary effort is normal. Breath sounds: Normal breath sounds. Chest: Chest wall: Tenderness present. Abdominal: General: Bowel sounds are normal. Palpations: Abdomen is soft. Skin: General: Skin is warm and dry. Neurological: General: No focal deficit present. Mental Status: She is alert and oriented to person, place, and time. Psychiatric: Mood and Affect: Mood normal. Behavior: Behavior normal. Thought Content: Thought content normal. Assessment/Plan Diagnoses and all orders for this visit: 1. Chronic diastolic congestive heart failure (HCC) (Primary) Discussed if pt gains 3 pounds or more in 24 hours, she will need to call the office. She needs to weigh herself everyday, same time, naked. She verbalized understanding. She is concerned because shegained 1-2 pounds in 24 hours. No active signs of cHF at this time. 2. Closed fracture of multiple ribs with routine healing, unspecified laterality, subsequent encounter Continue to use incentive spirometer. You can use a pillow to splint your chest if it is too painful to take deep breaths. No follow-ups on file. documented in this [facility]08-19-2025 Telephone encounter Note* Telephone Encounter - Rosaura Thompson MD - 02/07/2025 10:29 AM EDT PDMP reviewed Covering for Dr. landers [facility] [id number] Miscellaneous Notes* Telephone Encounter - Rosaura Thompson MD - 02/07/2025 10:29 AM EDT PDMP reviewed Covering for Dr. landers documented in this [facility]08-11-2025 History of Present illness Narrative* Yossi Landers MD - 01/30/2025 2:15 PM EDT Images from the original note were [...] (150 mg) by mouth in the morning. Donot crush, chew, or split. 30 tablet 11 [...] BY MOUTH EVERY DAY 100 tablet 3 Ngtmpgzmkow-Unjihjlik-Ythcgi (Trelegy Ellipta) 100-62.5-25 MCG/ACT aerosol powder Inhale [...] the same time. Lancets (OneTouch Delica Plus [id number]) [facility] [place] USE 1 LANCET TO [...] tablet (10 mg)before bedtime. 60 tablet 5 methylPREDNISolone (Medrol Dospak) [...] of bladder Left thyroid nodule Morbid obesity ([facility]) 07/04/2019 Osteoarthrosis Peripheral vascular disease, unspecified Unspecified [...] for F/U med changes. documented in this encounterChristian [id number] History of Present illness Narrative* Yossi Landers MD - 01/16/2025 11:30 AM EDT Images from the original note were not included. HPI Follow-up Additional comments: Admitted [facility] 01/09/25 dx:HTN, CHF exacerbation discharged home [...] y.o. female who presents for Follow-up (Admitted [facility] 01/09/25 dx:HTN, CHF exacerbation discharged home [...] Flowsheet Row Patient Outreach from 01/12/2025 in [facility] with Daniela Alvarado LPN Hospital Information ED, Hospital or Fpc Facility Discharge? Hospital Patient has been contacted within two business days of discharge Yes Diagnosis CHF exacerbation: (2) Pericardial effusion: (3) Essential hypertension: (4) COPD exacerbation: Discharge Date 01/11/25 Discharged To: Home Setting Discharge Hospital [facility] Engagement Call [...] BY MOUTH EVERY DAY 100 tablet 3 Etbfxqprmlo-Bgcinzwyu-Vmachp (Trelegy Ellipta) 100-62.5-25 MCG/ACT aerosol powder Inhale 1 puff Daily 3 each 3 gabapentin (Neurontin) 100 MG capsule Take 2 capsules (200 mg) by mouth in the morning and 2 capsules (200 mg) before bedtime. 360 capsule 3 glucose blood (True Metrix Blood Glucose Test) test strip 1 each by Other route 1 (one) time each day at the same time. Lancets (Local Offer NetworkTouch Delica Plus [id number]) [facility] [place] USE 1 LANCET TO [...] of bladder Left thyroid nodule Morbid obesity ([facility]) 07/04/2019 Osteoarthrosis Peripheral vascular disease, unspecified Unspecified [...] 2 weeks (around 01/30/2025). documented in this encounterChristian [id number] History of Present illness Narrative* Yossi Landres MD - 01/09/2025 10:00 AM EDT Images [...] BY MOUTH EVERY DAY 100 tablet 3 Jadvggcwgnd-Zvkntlbho-Sdridm (Trelegy Ellipta) 100-62.5-25 MCG/ACT aerosol powder Inhale 1 puff Daily 3 each 3 gabapentin (Neurontin) 100 MG capsule Take 2 capsules (200 mg) by mouth in the morning and 2 capsules (200 mg) before bedtime. 360 capsule 3 glucose blood (True Metrix Blood Glucose Test) test strip 1 each by Other route 1 (one) time each day at the same time. [] HYDROcodone-acetaminophen (Verona) 7.5-325 MG tablet Take 1 tablet by mouth every 6 (six) hours if needed for severe pain 120 tablet 0 Lancets (OneTouch Delica Plus [id number]) [facility] [place] USE 1 LANCET TO [...] of bladder Left thyroid nodule Morbid obesity ([facility]) 07/04/2019 Osteoarthrosis Peripheral vascular disease, unspecified Unspecified [...] No follow-ups on file. documented in this [facility]07-21-2025 Telephone encounter Note* Telephone Encounter - PHILIP Magallanes - 01/09/2025 8:07 AM EDT Meds sent. [place] [id number] Miscellaneous Notes* Telephone Encounter - PHILIP Magallanes - 01/09/2025 8:07 AM EDT Meds sent. documented in this [facility]07-15-2025 Telephone encounter Note* Telephone Encounter - PHILIP Magallanes - 01/03/2025 1:53 PM EDT OARRS reviewed, Rx sent into patient's pharmacy. [facility] [id number] Miscellaneous Notes* Telephone Encounter - PHILIP Magallanes - 01/03/2025 1:53 PM EDT OARRS reviewed, Rx sent into patient's pharmacy. documented in this [facility]07-10-2025 History of Present illness Narrative* PHILIP Solomon - 12/29/2024 2:30 PM EDT Reason for Appointment: Patient ID: Jaquelin Norwood [...] Every morning Blood Glucose Monitoring Suppl (ONE StudyBlue 2) w/Device kit Daily calcium carbonate (TUMS) 500 mg, Daily carvedilol (Coreg) 12.5 MG tablet TAKE 1 TABLET (12.5 MG) BY MOUTH IN THE MORNING AND 1 TABLET (12.5 MG) BEFORE BEDTIME. [facility] Stool Softener 100 mg, 2 times daily DULoxetine (CYMBALTA) 60 mg, Oral, Every morning famotidine (PEPCID) 20 mg, Oral, Daily Rjbbavozakx-Kgwmnlklk-Dgbzac (Trelegy Ellipta) 100-62.5-25 MCG/ACT aerosol powder 1 puff, Inhalation, Daily gabapentin (NEURONTIN) 200 mg, Oral, 2 times daily glucose blood (True Metrix Blood Glucose Test) test strip 1 each, Every 24 hours HYDROcodone-acetaminophen (Verona) 7.5-325 MG tablet 1 tablet, Oral, Every 6 hours PRN Lancets (Local Offer NetworkTouch Delica Plus [id number]) [facility] [place] USE 1 LANCET TO TEST BLOOD SUGAR ONCE DAILY levothyroxine (SYNTHROID, LEVOXYL) 100 mcg, Oral, Daily before breakfast lisinopril 5 mg, Oral, Every morning loratadine (CLARITIN) 10 mg, Oral, Daily meclizine (ANTIVERT) 12.5 mg, 3 times daily PRN memantine (Namenda Titration Pack) 28 x 5 MG & 21 x 10 MG tablet pack USE DIRECTED FOR FIRSTMONTH. 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 Essential hypertension 11/04/2022 Extrapyramidal symptom 11/04/2022 Exudative age-related macular degeneration ([facility]) 11/04/2022 Gastroesophageal reflux disease 11/04/2022 Hypertensive heart disease with congestive heart failure and chronic kidney disease ([facility]) 11/04/2022 LVH (left ventricular hypertrophy) 11/04/2022 Cognitive impairment 11/04/2022 Mixed hyperlipidemia 11/04/2022 Moderate recurrent major depression ([facility]) 11/04/2022 Multinodular goiter 11/04/2022 Neuropathy 11/04/2022 Nontoxic single thyroid nodule 11/04/2022 OAB (overactive bladder) 11/04/2022 Obesity (BMI 30-39.9) 11/04/2022 Peripheral vascular disease 11/04/2022 Polyosteoarthritis 11/04/2022 Primary osteoarthritis of left knee 11/04/2022 Primary osteoarthritis of right knee 11/04/2022 Chronic obstructive pulmonary disease (HCC) 11/04/2022 Pulmonary emphysema ([facility]) 11/04/2022 Type 2 diabetes mellitus with diabetic neuropathy, without long-term current use of insulin ([facility]) 11/04/2022 Ataxia 10/23/2017 Diabetic peripheral neuropathy associated with type 2 diabetes mellitus ([facility]) 02/23/2019 Acute on chronic diastolic heart failure ([facility]) 03/14/2020 Cardiomegaly 04/30/2015 Abnormality of rectum 08/10/2023 Sore throat 10/26/2023 Symptomatic cholelithiasis 01/20/2024 Nausea 09/29/2024 Bilateral lower extremity edema 10/07/2024 Resolved Ambulatory Problems Diagnosis Date Noted Former smoker 08/15/2017 Morbid obesity ([facility] [place]) 07/04/2019 Chronic combined systolic and diastolic heart [...] of bladder Left thyroid nodule Morbid obesity ([facility] [facility]) 07/04/2019 Osteoarthrosis Peripheral vascular disease, unspecified Unspecified [...] nursing note reviewed. Exam conducted with a stoneworking sander present. Vitals: Estimated body mass index is [...] behalf of: PHILIP Solomon documented in this encounterChristian [id number] History of Present illness Narrative* Yossi Landers MD - 11/07/2024 11:15 AM EDT Images from the original note [...] mg) by mouth Daily 30 tablet 2 Qfqzxmastcl-Mcfdpksmc-Hbvxth (Trelegy Ellipta) 100-62.5-25 MCG/ACT aerosol powder Inhale 1 puff Daily 3 each 3 gabapentin (Neurontin) 100 MG capsule Take 2 capsules (200 mg) by mouth in the morning and 2 capsules (200 mg) before bedtime. 360 capsule 3 glucose blood (True Metrix Blood Glucose Test) test strip 1 each by Other route 1 (one) time each day at the same time. HYDROcodone-acetaminophen (Verona) 7.5-325 MG tablet Take 1 tablet by mouth every 6 (six) hours if needed for severe pain 120 tablet 0 Lancets (Local Offer NetworkTouch Delica Plus [id number]) [facility] [place] USE 1 LANCET TO [...] by mouth in the morning. Do not crushor chew.. polyethylene glycol, PEG, 3350 (Glycolax, Miralax) powder Take 17 g by mouth Daily as needed (constipation) torsemide (Demadex) 10 MG tablet Take 1 tablet (10 mg) by mouth Daily 90 tablet 3 memantine (Namenda Titration Pack) 28 x 5 MG & 21 x 10 MG tablet pack Use as directed for firstmon. 49 tablet 0 memantine (Namenda) 10 MG tablet Take 1 tablet (10 mg) by mouth in the morning and 1 tablet (10 mg)before bedtime. 60 tablet 5 ondansetron ODT (Zofran-ODT) [...] Do you have a medical power of criminal attorney?: No Objective : BP 128/72 Pulse [...] a living will and durable power of criminal attorney for healthcare. We discussed telling perdue [...] on November 07, 2024 documented in this [facility]05-08-2025 Telephone encounter Note* Telephone Encounter - PHILIP Magallanes - 10/27/2024 1:02 PM EDT Radha sent. [facility] [id number] Miscellaneous Notes* Telephone Encounter - PHILIP Magallanes - 10/27/2024 1:02 PM EDT Radha sent. documented in this encounterChristian [id number] Telephone encounter Note* Telephone Encounter - PHILIP Magallanes - 10/13/2024 11:03 AM EDT Acknowledged. [facility] [id number] Miscellaneous Notes* Telephone Encounter - PHILIP Magallanes - 10/13/2024 11:03 AM EDT Acknowledged. * Telephone Encounter - Seble Lieberman MA - 10/13/2024 10:31 AM EDT Relayed message from can to pt son and she will talk to pt to see what she would like to do and will give a call back * Telephone Encounter - PHILIP Magallanes - 10/13/2024 10:24 AM EDT Please let her know that both medications have the potential for the same side effects. Torsemide is likely to be more effective at managing her swelling. * Telephone Encounter - Kimberly Sanchez LPN - 10/13/2024 10:12 AM EDT Pt calls stating she does not feel comfortable taking torsemide was on furosemide in past and wouldrather take that instead documented in this encounterChristian [id number] Telephone encounter Note* Telephone Encounter - Seble Lieberman MA - 10/13/2024 10:31 AM EDT Relayed message from can to pt son and she will talk to pt to see what she would like to do and will give a call back [facility] [id number] Telephone encounter Note* Telephone Encounter - PHILIP Magallanes - 10/13/2024 10:24 AM EDT Please let her know that both medications have the potential for the same side effects. Torsemide is likely to be more effective at managing her swelling. [facility] [id number] Telephone encounter Note* Telephone Encounter - Kimberly Sanchez LPN - 10/13/2024 10:12 AM EDT Pt calls stating she does not feel comfortable taking torsemide was on furosemide in past and wouldrather take that instead [facility] [id number] History of Present illness Narrative* PHILIP Magallanes - 10/07/2024 10:30 AM EDT Images from the original note [...] just got out Thursday, she went to [facility] on10/01 was having N/V. The N/V has improved. [...] 1 CAPSULE EVERY MORNING 90 capsule 3 Gnpxhnlzapj-Tnpaznutx-Tcxcef (Trelegy Ellipta) 100-62.5-25 MCG/ACT aerosol powder Inhale [...] not taking: Reported on 09/21/2024) [] HYDROcodone-acetaminophen (Verona) 7.5-325 MG tablet Take 1 tablet by mouth every 6 (six) hours if needed for severe pain 120 tablet 0 Lancets (OneTouch Delica Plus [id number]) [facility] [place] USE 1 LANCET TO [...] by mouth in the morning. Do not crushor chew.. ondansetron ODT (Zofran-ODT) 4 MG disintegrating [...] Take by mouth (Patient not taking: Reported on10/07/2024) [DISCONTINUED] ondansetron (Zofran) 4 MG tablet Take [...] Acute exacerbation of chronic obstructive pulmonary disease ([facility]) 07/16/2016 Anxiety state ([facility]) Cardiomegaly Chronic airway obstruction ([facility]) Chronic back pain spinal stenosis Depressive disorder ([facility]) Diabetes mellitus without complication Diabetes mellitus without mention of complication, type II or unspecified type, not stated as uncontrolled Encephalopathy 10/14/2022 Essential hypertension, benign ([facility]) Former smoker 08/15/2017 H/O being hospitalized 02/20/2020 Resp. Distress, Hypoxia, JONE, LLL Pneumonia, Sepsis History of echocardiogram 02/21/2020 ECHO EF 65-70% Lt [facility] Severely Dilated (02/21/2020) Hyperlipidemia, unspecified ([facility]) Hypertonicity of bladder Left thyroid nodule ([facility]) Morbid obesity ([facility] 07/04/2019 Osteoarthrosis Peripheral vascular disease, unspecified ([facility]) Unspecified combined systolic (congestive) and diastolic (congestive) [...] they would likely be helpful for the patient.If the BMP is WNL, would plan to [...] combined systolic and diastolic congestive heart failure ([facility]) - Ambulatory referral to Home Health; Future I certify that, based on my findings, the following services are medically necessary skilled home health services: Strengthening Exercises. Further, I certify that my clinical findings support this patient's homebound status (i.e. absencesfrom home require considerable and taxing effort, are for health treatment, absences from home for non-medical reasons are infrequent or are of relatively short duration). The clinical findings that support the need for home care and homebound status are due to need the aid of supportive devices and needs the assistance of another person to leave place of residence andthe patient has a condition such that leaving her home is medically contraindicated. Follow up in about 4 weeks (around 11/04/2024) for Recheck. documented in this encounterChristian [id number] History of Present illness Narrative* PHILIP Magallanes - 09/29/2024 11:00 AM EDT Images from the original note were not included. HPI Med Refill Additional comments: Albuterol for nebulizer Last edited by Chelita Hurst LPN on 09/29/2024 10:57 AM. Subjective Patient ID: Jaquelin Norwood is a 84 y.o. female who presents for [facility] follow up. Flowsheet Row Patient Outreach from 09/28/2024 in [facility] with Daniela Alvarado LPN [facility] Information ED, Hospital or Fpc Facility Discharge? ED Patient has been contacted within 2 days of being seen in the ED Yes Diagnosis Shortness of breath, Pneumonia Discharge Date 09/27/24 Discharged To: Home Setting Discharge Hospital [facility] Engagement Call Start Time 1101 Admission [...] MOUTH AT BEDTIME (Patient not taking: Reported on09/21/2024) 90 tablet 0 Vdiszgddsdj-Fnvcoozkm-Fsysfi (Trelegy Ellipta) 100-62.5-25 MCG/ACT aerosol powder Inhale [...] (Patient not taking: Reported on 09/21/2024) HYDROcodone-acetaminophen (Verona) 7.5-325 MG tablet Take 1 tablet by mouth every 6 (six) hours if needed for severe pain 120 tablet 0 Lancets (Local Offer NetworkTouch Delica Plus [id number]) [facility] [place] USE 1 LANCET TO [...] mouth every 8 (eight) hours if needed fornausea or vomiting 60 tablet 1 polyethylene glycol, PEG, 3350 (Glycolax, Miralax) powder Take 17 g by mouth Daily as needed (constipation) torsemide (Demadex) 20 MG tablet Take 1 tablet (20 mg) by mouth Daily (Patient not taking: Reportedon 09/26/2024) 30 tablet 11 [DISCONTINUED] albuterol (2.5 MG/3ML) 0.083% nebulizer solution Take 2.5 mg by nebulization every 8(eight) hours if needed. [DISCONTINUED] Manbnuw-Tlhrivofjjx-Zveguiuuwg (Breztri Aerosphere) 160-9-4.8 MCG/ACT aerosol Inhale2 puffs in the morning and 2 puffs [...] Past Medical History: Diagnosis Date Acquired hypothyroidism ([facility]) Acute exacerbation of chronic obstructive pulmonary disease ([facility]) 07/16/2016 Anxiety state ([facility]) Cardiomegaly Chronic airway obstruction (CMS/HCC) Chronic back pain spinal stenosis Depressive disorder ([facility]) Diabetes mellitus without complication Diabetes mellitus without [...] the right-lower field reveals rhonchi. Examination of theleft-lower field reveals rhonchi. Decreased breath sounds and [...] drink at least one Gatorade a day fornow to continue to work on replenishing her [...] them in the past and found them helpful.Continue Trelegy. Nausea Can continue with Zofran as [...] the patient. ER discharge meds were reviewed. Anychanges to plan are as noted. Follow up in about 1 week (around 10/06/2024) for Recheck with Lab. documented in this encounterChristian [id number] History of Present illness Narrative* Yossi Landers MD - 09/14/2024 11:15 AM EDT Images from the original note [...] the skin 1 (one) time each day. Yszhzrx-Tphrzudodip-Iehpbgurik (Breztri Aerosphere) 160-9-4.8 MCG/ACT aerosol Inhale 2 puffs in themorning and 2 puffs before bedtime. 10.7 g [...] BY MOUTH AT BEDTIME 90 tablet 0 Qnqvspgpyia-Hclcecwva-Pszcpn (Trelegy Ellipta) 100-62.5-25 MCG/ACT aerosol powder Inhale 1 puff Daily 3 each 3 gabapentin (Neurontin) 100 MG capsule Take 2 capsules (200 mg) by mouth in the morning and 2 capsules (200 mg) before bedtime. 360 capsule 3 glucose blood (True Metrix Blood Glucose Test) test strip 1 each by Other route 1 (one) time each day at the same time. HYDROcodone-acetaminophen (Verona) 7.5-325 MG tablet Take 1 tablet by mouth every 6 (six) hours if needed for severe pain 120 tablet 0 Lancets (Local Offer NetworkTouch Delica Plus [id number]) [facility] [place] USE 1 LANCET TO [...] mouth every 8 (eight) hours if needed fornausea or vomiting 60 tablet 1 polyethylene glycol, [...] Past Medical History: Diagnosis Date Acquired hypothyroidism ([facility]) Acute exacerbation of chronic obstructive pulmonary disease ([facility]) 07/16/2016 Anxiety state ([facility]) Cardiomegaly Chronic airway obstruction ([facility]) Chronic back pain spinal stenosis Depressive disorder ([facility]) Diabetes mellitus without complication ([facility]) Diabetes mellitus without mention of complication, type II or unspecified type, not stated as uncontrolled Encephalopathy 10/14/2022 Essential hypertension, benign ([facility]) Former smoker 08/15/2017 H/O being hospitalized 02/20/2020 Resp. Distress, Hypoxia, JONE, LLL Pneumonia, Sepsis History of echocardiogram 02/21/2020 ECHO EF 65-70% Lt [facility] Severely Dilated (02/21/2020) Hyperlipidemia, unspecified ([facility]) Hypertonicity of bladder Left thyroid nodule ([facility]) Morbid obesity ([facility]) 07/04/2019 Osteoarthrosis Peripheral vascular disease, unspecified ([facility]) Unspecified combined systolic (congestive) and diastolic (congestive) [...] for As Previously Scheduled. documented in this encounterNOSaint John's [id number] Telephone encounter Note* Telephone Encounter - Susana Talley - 08/23/2024 12:29 PM EST Hi, I am calling for Alma. Norwood. Birthdate [birth year]. She wanted to know if she could get some samples of the trilogy. Thank you, Tito. Christian [id number] Miscellaneous Notes* Telephone Encounter - Susana Talley - 08/23/2024 12:29 PM EST Hi, I am calling for Alma. Norwood. Birthdate [birth year]. She wanted to know if she could get some samples of the trilogy. Thank you, Tito. documented in this [facility]02-17-2025 Telephone encounter Note* Telephone Encounter - PHILIP Magallanes - 08/08/2024 7:50 AM EST OARRS reviewed, Rx sent into patient's pharmacy. [facility] [id number] Miscellaneous Notes* Telephone Encounter - PHILIP Magallanes - 08/08/2024 7:50 AM EST OARRS reviewed, Rx sent into patient's pharmacy. documented in this [facility]02-17-2025 Telephone encounter Note* Telephone Encounter - PHILIP Magallanes - 08/08/2024 7:49 AM EST Zofran Sent [facility] [id number] Miscellaneous Notes* Telephone Encounter - PHILIP Magallanes - 08/08/2024 7:49 AM EST Zofran Sent documented in this [facility]02-07-2025 History of Present illness Narrative* Kristen William DO - 07/29/2024 10:15 AM EST Images from the original note were not included. Jaquelin Norwood presents today for COPD. She was referred by primary care provider. She is accompaniedby her efpogdgt-yd-dfe at today's office visit. She does give a history of COPD for many years. Shewas recently placed on Breztri. She is unsure how long she has been on this medication. She states she has been obtaining this through her primary care provider via samples. She does have albuterol that she also uses twice daily. She is unsure whether the Breztri was helping her breathing at all ornot. She states she has been off for last 2 days. Her vylumiil-hg-bya her states that she believes they were [...] the skin 1 (one) time each day. Gfcqqof-Fvgmkvgnfkm-Ojptubzeza (Breztri Aerosphere) 160-9-4.8 MCG/ACT aerosol Inhale 2 puffs in themorning and 2 puffs before bedtime. 10.7 g [...] each day at the same time. HYDROcodone-acetaminophen (Verona) 7.5-325 MG tablet Take 1 tablet by mouth every 6 (six) hours if needed for severe pain 120 tablet 0 Lancets (OneTouch Delica Plus [id number]) [facility] [place] USE 1 LANCET TO [...] mouth every 8 (eight) hours if needed fornausea or vomiting 60 tablet 1 Erzgwrxvdrj-Wgckkmmew-Ordysc (Trelegy Ellipta) 100-62.5-25 MCG/ACT aerosol powder Inhale [...] Trelegy as opposed to Breztri. She is willingto give this a try to see if this will help her breathing. She was given samples and a prescriptionat today's office visit. She will continue to use albuterol on an as needed basis. There is also comment in her primary care provider's note in regards to pulmonary hypertension. However I did reviewher echocardiogram from May and this did not comment on any elevated right-sided pressures. Her RVSP was not measured on this echocardiogram. She did have elevated right atrial pressures consistent with volume overload. Her aucwcthu-he-rtm states there were no adjustments made to her medications at that time. The patient would benefit from an increase in her diuresis if able to tolerate fromhemodynamic and renal function standpoint. We did also have a discussion regarding possibility of asleep study. However the patient is not interested [...] COPD. Kristen William DO documented in this encounterChristian [id number] History of Present illness Narrative* Yossi Landers MD - 07/25/2024 11:00 AM EST Subjective Patient ID: Jaquelin Norwood is a 84 y.o. female who presents for AD (Adjustment Disorder). Pt made medication changes stopped wellbutrin and started samples of rexulti - she has 1 week of samples left Pt [...] the skin 1 (one) time each day. Ehcqkqb-Growyjetuyr-Gadxejtiyq (Breztri Aerosphere) 160-9-4.8 MCG/ACT aerosol Inhale 2 puffs in themorning and 2 puffs before bedtime. 10.7 g [...] each day at the same time. HYDROcodone-acetaminophen (Verona) 7.5-325 MG tablet Take 1 tablet by mouth every 6 (six) hours if needed for severe pain 120 tablet 0 Lancets (OneTouch Delica Plus [id number]) [facility] [place] USE 1 LANCET TO [...] mouth every 8 (eight) hours if needed fornausea or vomiting 60 tablet 1 No current [...] Past Medical History: Diagnosis Date Acquired hypothyroidism ([facility]) Acute exacerbation of chronic obstructive pulmonary disease ([facility]) 07/16/2016 Anxiety state ([facility]) Cardiomegaly Chronic airway obstruction ([facility]) Chronic back pain spinal stenosis Depressive disorder ([facility]) Diabetes mellitus without complication ([facility]) Diabetes mellitus without mention of complication, type II or unspecified type, not stated as uncontrolled Encephalopathy 10/14/2022 Essential hypertension, benign ([facility]) Former smoker 08/15/2017 H/O being hospitalized 02/20/2020 [...] 09/22/2024) for Routine F/U. documented in this encounterChristian [id number] History of Present illness Narrative* Alessandro Levi DPM - 07/21/2024 4:20 PM EST Patient: Jaquelin Norwood : 1940 PCP: Yossi [...] Past Medical History: Diagnosis Date Acquired hypothyroidism ([facility]) Acute exacerbation of chronic obstructive pulmonary disease ([facility]) 07/16/2016 Anxiety state ([facility]) Cardiomegaly Chronic airway obstruction ([facility]) Chronic back pain spinal stenosis Depressive disorder ([facility]) Diabetes mellitus without complication ([facility]) Diabetes mellitus without mention of complication, type II or unspecified type, not stated as uncontrolled Encephalopathy 10/14/2022 Essential hypertension, benign ([facility]) Former smoker 08/15/2017 H/O being hospitalized 02/20/2020 Resp. Distress, Hypoxia, JONE, LLL Pneumonia, Sepsis History of echocardiogram 02/21/2020 ECHO EF 65-70% [facility] Severely Dilated (02/21/2020) Hyperlipidemia, unspecified ([facility]) Hypertonicity of bladder Left thyroid nodule ([facility]) Morbid obesity ([facility]) 07/04/2019 Osteoarthrosis Peripheral vascular disease, unspecified ([facility]) Unspecified combined systolic (congestive) and diastolic (congestive) heart failure ([facility]) Medications: Current Outpatient Medications: albuterol (2.5 MG/3ML) [...] 1 (one) timeeach day., Disp: , Rfl: Mimeixh-Dbhekxqpthz-Najebcwngr (Breztri Aerosphere) 160-9-4.8 MCG/ACT aerosol, Inhale 2 [...] the same time., Disp: , Rfl: HYDROcodone-acetaminophen (Verona) 7.5-325 MG tablet, Take 1 tablet by mouth every 6 (six) hours if needed for severe pain, Disp: 120 tablet, Rfl: 0 Lancets (OneTouch Delica Plus [id number]) [facility] [place], USE 1 LANCET TO [...] min Stress: No Stress Concern Present (11/12/2022) [place] [employer] - Occupational Stress Questionnaire Feeling of Stress : Not at all Social Connections: Moderately Isolated (11/12/2022) Social Connection and Isolation Panel [NHANES] Frequency of Communication with Friends and Family: More than three times a week Frequency of Social Gatherings with Friends and Family: Once a week Attends Shinto Services: Never Active Member of Clubs or [...] and negative PT pedal pulses NEURO: 5.07 [place] Arturo monofilament test intact to digits and forefoot bilaterally 125Hz tuning fork diminished to 1st MPJ bilaterally ORTHO: Positive pain on palpation to toenails of the left 1,2,3,4,5 toes and right 1,2,3,4,5 toes ASSESSMENT 1. Type 2 diabetes mellitus with diabetic neuropathy, without long-term current use of insulin ([facility]) 2. Pain due to onychomycosis of toenails [...] nonweightbearing Alessandro Levi DPM documented in this encounterChristian [id number] History of Present illness Narrative* Bel Ojeda MD - 07/12/2024 2:20 PM EST Subjective Patient ID: Jaquelin Norwood is a 84 y.o. female who presents for Thyroid Nodule (1 year follow up ultrasound [facility]) Thyroid US shows a 14mm LT nodule. Stable to smaller compared to 6 years ago Family History Problem Relation Name Age of Onset Heart failure Mother Diabetes Mother Cancer Mother Cancer Father Active Ambulatory Problems Diagnosis Date Noted Acquired hypothyroidism ([facility]) 11/04/2022 Ataxic gait 11/04/2022 Bilateral carotid artery stenosis 11/04/2022 Cardiomyopathy ([facility]) 11/04/2022 Chronic allergic rhinitis 11/04/2022 Chronic combined systolic and diastolic congestive heart failure ([facility]) 11/04/2022 Chronic constipation 11/04/2022 Coronary artery disease ([facility]) 11/04/2022 Degenerative lumbar spinal stenosis 11/04/2022 Depression with anxiety 11/04/2022 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[facility]) 11/04/2022 Essential hypertension ([facility]) 11/04/2022 Extrapyramidal symptom 11/04/2022 Exudative age-related macular degeneration ([facility]) 11/04/2022 Gastroesophageal reflux disease 11/04/2022 Hypertensive heart disease with congestive heart failure and chronic kidney disease ([facility]) 11/04/2022 LVH (left ventricular hypertrophy) 11/04/2022 Mild cognitive impairment 11/04/2022 Mixed hyperlipidemia (CMS/HCC) 11/04/2022 Moderate recurrent major depression (CMS/HCC) 11/04/2022 Multinodular goiter (CMS/HCC) 11/04/2022 Neuropathy 11/04/2022 Nontoxic single thyroid nodule (CMS/HCC) 11/04/2022 OAB (overactive bladder) 11/04/2022 Obesity (BMI 30-39.9) 11/04/2022 Peripheral vascular disease (CMS/HCC) 11/04/2022 Polyosteoarthritis 11/04/2022 Primary osteoarthritis of left knee 11/04/2022 Primary osteoarthritis of right knee 11/04/2022 Chronic obstructive pulmonary disease (CMS/HCC) 11/04/2022 Pulmonary emphysema (CMS/HCC) 11/04/2022 Type 2 diabetes mellitus with diabetic neuropathy, without long-term current use of insulin (CMS/HCC) 11/04/2022 Ataxia 10/23/2017 Diabetic peripheral neuropathy associated with type 2 diabetes mellitus ([facility]/HCC) 02/23/2019 Acute on chronic diastolic heart failure ([facility]) 03/14/2020 Cardiomegaly 04/30/2015 Abnormality of rectum 08/10/2023 Sore throat 10/26/2023 Symptomatic cholelithiasis 01/20/2024 Resolved Ambulatory Problems Diagnosis Date Noted Former smoker 08/15/2017 Morbid obesity ([facility]/HCC) 07/04/2019 Chronic combined systolic and diastolic heart failure (CMS/HCC) 04/30/2015 Acute exacerbation of chronic obstructive pulmonary disease (CMS/HCC) 07/16/2016 Past Medical History: Diagnosis Date Anxiety state ([facility]) Chronic airway obstruction (CMS/HCC) Chronic back pain Depressive disorder ([facility]) Diabetes mellitus without complication ([facility]) Encephalopathy 10/14/2022 Essential hypertension, benign ([facility]) H/O being hospitalized 02/20/2020 History of echocardiogram [...] the skin 1 (one) time each day. Stostmg-Pirheintrws-Kasrpoxvlc (Breztri Aerosphere) 160-9-4.8 MCG/ACT aerosol Inhale 2 puffs in themorning and 2 puffs before bedtime. 10.7 g [...] each day at the same time. HYDROcodone-acetaminophen (Verona) 7.5-325 MG tablet Take 1 tablet by mouth every 6 (six) hours if needed for severe pain 120 tablet 0 Lancets (Local Offer NetworkTouch Delica Plus [id number]) [facility] [place] USE 1 LANCET TO [...] mouth every 8 (eight) hours if needed fornausea or vomiting 60 tablet 1 No current [...] several years. Recheck prn documented in this encounterChristian [id number] Telephone encounter Note* Telephone Encounter - PHILIP Magallanes - 07/04/2024 9:38 AM EST ,OARRS reviewed, Rx sent into patient's pharmacy. [facility] [id number] Miscellaneous Notes* Telephone Encounter - PHILIP Magallanes - 07/04/2024 9:38 AM EST ,OARRS reviewed, Rx sent into patient's pharmacy. * Telephone Encounter - CHACHA ADDISON - 07/04/2024 9:33 AM EST Last OV 05-31-24 Last RF 06-01-24 documented in this encounterChristian [id number] Telephone encounter Note* Telephone Encounter - CHACHA ADDISON - 07/04/2024 9:33 AM EST Last OV 05-31-24 Last RF 06-01-24 [facility] [id number] History of Present illness Narrative* Yossi Landers MD - 06/10/2024 11:00 AM EST Images from the original note were not [...] the skin 1 (one) time each day. Jeommdb-Nfkwryredbq-Xngoippiwf (Breztri Aerosphere) 160-9-4.8 MCG/ACT aerosol Inhale 2 puffs in themorning and 2 puffs before bedtime. 10.7 g [...] each day at the same time. HYDROcodone-acetaminophen (Verona) 7.5-325 MG tablet Take 1 tablet by mouth every 6 (six) hours if needed for severe pain 120 tablet 0 Lancets (OneTouch Delica Plus [id number]) [facility] [place] USE 1 LANCET TO [...] mouth every 8 (eight) hours if needed fornausea or vomiting 60 tablet 1 [DISCONTINUED] buPROPion (Zyban) 150 MG 12 hr tablet Take 1 tablet (150 mg) by mouth in the morningand 1 tablet (150 mg) before bedtime. 180 [...] Past Medical History: Diagnosis Date Acquired hypothyroidism ([facility]) Acute exacerbation of chronic obstructive pulmonary disease ([facility]) 07/16/2016 Anxiety state ([facility]) Cardiomegaly Chronic airway obstruction ([facility]) Chronic back pain spinal stenosis Depressive disorder ([facility]) Diabetes mellitus without complication ([facility]) Diabetes mellitus without mention of complication, type II or unspecified type, not stated as uncontrolled Encephalopathy 10/14/2022 Essential hypertension, benign ([facility]) Former smoker 08/15/2017 H/O being hospitalized 02/20/2020 Resp. Distress, Hypoxia, JONE, LLL Pneumonia, Sepsis History of echocardiogram 02/21/2020 ECHO EF 65-70% [facility] Severely Dilated (02/21/2020) Hyperlipidemia, unspecified ([facility]) Hypertonicity of bladder Left thyroid nodule ([facility]) Morbid obesity ([facility]) 07/04/2019 Osteoarthrosis Peripheral vascular disease, unspecified ([facility]) Unspecified combined systolic (congestive) and diastolic (congestive) heart failure ([facility]) Past Surgical History: Procedure Laterality Date BACK [...] for F/U med changes. documented in this [facility]12-11-2024 Telephone encounter Note* Telephone Encounter - PHILIP Magallanes - 06/01/2024 2:27 PM EST Meds sent. Christian [id number] Miscellaneous Notes* Telephone Encounter - PHILIP Magallanes - 06/01/2024 2:27 PM EST Meds sent. * Telephone Encounter - PHILIP Magallanes - 06/01/2024 8:52 AM EST OARRS reviewed, Unable to send meds, will try again later. documented in this [facility]12-11-2024 Telephone encounter Note* Telephone Encounter - PHILIP Magallanes - 06/01/2024 8:52 AM EST OARRS reviewed, Unable to send meds, will try again later. Christian [id number] History of Present illness Narrative* Yossi Landers MD - 05/16/2024 1:15 PM EST Images from the original note were not included. HPI Results Additional comments: PFT Echo has not been done yet--pending ins approval Med Refill Additional comments: Zofran --[facility] Last edited by Kimberly Sanchez [...] paresthesia of the feet, polydipsia, polyuria, visual disturbances,and vomiting. Evaluation to date has included: fasting [...] the skin 1 (one) time each day. Zfsjssm-Wgfxjnyahxo-Oxlbconico (Breztri Aerosphere) 160-9-4.8 MCG/ACT aerosol Inhale 2 puffs in themorning and 2 puffs before bedtime. 10.7 g [...] each day at the same time. HYDROcodone-acetaminophen (Verona) 7.5-325 MG tablet Take 1 tablet by mouth every 6 (six) hours if needed for severe pain 120 tablet 0 Lancets (Local Offer NetworkTouch Delica Plus [id number]) [facility] [place] USE 1 LANCET TO [...] mouth every 8 (eight) hours if needed fornausea or vomiting 60 tablet 1 No current [...] Past Medical History: Diagnosis Date Acquired hypothyroidism ([facility]) Acute exacerbation of chronic obstructive pulmonary disease ([facility]) 07/16/2016 Anxiety state ([facility]) Cardiomegaly Chronic airway obstruction ([facility]) Chronic back pain spinal stenosis Depressive disorder ([facility]) Diabetes mellitus without complication ([facility]) Diabetes mellitus without mention of complication, type II or unspecified type, not stated as uncontrolled Encephalopathy 10/14/2022 Essential hypertension, benign ([facility]) Former smoker 08/15/2017 H/O being hospitalized 02/20/2020 [...] 06/06/2024) for Test/Lab Review. documented in this encounterChristian [id number] History of Present illness Narrative* Yossi Landers MD - 05/02/2024 11:30 AM EST Images from the original note were not [...] paresthesia of the feet, polydipsia, polyuria, visual disturbances,and vomiting. Evaluation to date has included: fasting [...] the same time. Lancets (OneTouch Delica Plus [id number]) [facility] [place] USE 1 LANCET TO [...] mouth every 8 (eight) hours if needed fornausea or vomiting 60 tablet 1 [DISCONTINUED] ALPRAZolam (Xanax) 0.25 MG tablet Take 1 tablet (0.25 mg) by mouth 2 (two) times a day as needed for anxiety 60 tablet 0 [DISCONTINUED] HYDROcodone-acetaminophen (Verona) 7.5-325 MG tablet Take 1 tablet by mouth every 6 (six) hours if needed for severe pain 120 tablet 0 [DISCONTINUED] loratadine (Claritin) 10 MG tablet TAKE 1 TABLET BY MOUTH EVERY DAY 100 tablet 3 [DISCONTINUED] famotidine (Pepcid) 20 MG tablet Take 1 tablet (20 mg) by mouth at bedtime 90 tablet0 [DISCONTINUED] loratadine (Claritin) 10 MG tablet TAKE [...] Past Medical History: Diagnosis Date Acquired hypothyroidism ([facility]) Acute exacerbation of chronic obstructive pulmonary disease ([facility]) 07/16/2016 Anxiety state ([facility]) Cardiomegaly Chronic airway obstruction (CMS/HCC) Chronic back pain spinal stenosis Depressive disorder ([facility]/HCC) Diabetes mellitus without complication ([facility]) Diabetes mellitus without mention of complication, type II or unspecified type, not stated as uncontrolled Encephalopathy 10/14/2022 Essential hypertension, benign (CMS/HCC) Former smoker 08/15/2017 H/O being hospitalized 02/20/2020 Resp. Distress, Hypoxia, JONE, LLL Pneumonia, Sepsis History of echocardiogram 02/21/2020 ECHO EF 65-70% [facility] Severely Dilated (02/21/2020) Hyperlipidemia, unspecified (CMS/HCC) Hypertonicity of bladder Left thyroid nodule (CMS/HCC) Morbid obesity ([facility]/HCC) 07/04/2019 Osteoarthrosis Peripheral vascular disease, unspecified (CMS/HCC) [...] total Degenerative lumbar spinal stenosis - HYDROcodone-acetaminophen (Verona) 7.5-325 MG tablet; Take 1 tablet by mouth every 6 (six) hours if needed for severe pain Allergic rhinitis, unspecified - loratadine (Claritin) 10 MG tablet; Take 1 tablet (10 mg) by mouth Daily Depression with anxiety - ALPRAZolam (Xanax) 0.25 MG tablet; Take 1 tablet (0.25 mg) by mouth 2 (two) times a day as neededfor anxiety 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) - Echocardiogram 2D complete Panlobular emphysema (CMS/HCC) - Pulmonary Function Test - Bkhzayc-Mdauaravffo-Ydsbslbfzh (Breztri Aerosphere) 160-9-4.8 MCG/ACT aerosol; Inhale 2 puffs in the morning and 2 puffs before bedtime. Symptomatic cholelithiasis - May need removal, but not medically stable for surgery at present Follow up in about 2 weeks (around 05/16/2024) for Test/Lab Review, F/U med changes. documented in this encounterChristian [id number] History of Present illness Narrative* Alessandro Levi, DPM - 04/28/2024 1:40 PM EST Patient: Jaquelin Norwood : 1940 PCP: Yossi [...] Past Medical History: Diagnosis Date Acquired hypothyroidism ([facility]/HCC) Acute exacerbation of chronic obstructive pulmonary disease ([facility]) 07/16/2016 Anxiety state ([facility]) Cardiomegaly Chronic airway obstruction ([facility]) Chronic back pain spinal stenosis Depressive disorder ([facility]) Diabetes mellitus without complication ([facility]/HCC) Diabetes mellitus without mention of complication, type II or unspecified type, not stated as uncontrolled Encephalopathy 10/14/2022 Essential hypertension, benign ([facility]) Former smoker 08/15/2017 H/O being hospitalized 02/20/2020 Resp. Distress, Hypoxia, JONE, LLL Pneumonia, Sepsis History of echocardiogram 02/21/2020 ECHO EF 65-70% [facility] Severely Dilated (02/21/2020) Hyperlipidemia, unspecified (CMS/HCC) Hypertonicity of bladder Left thyroid nodule ([facility]/HCC) Morbid obesity ([facility]/HCC) 07/04/2019 Osteoarthrosis Peripheral vascular disease, unspecified ([facility]/HCC) Unspecified combined systolic (congestive) and diastolic (congestive) heart failure ([facility]/HCC) Medications: Current Outpatient Medications: albuterol (2.5 MG/3ML) [...] the same time., Disp: , Rfl: HYDROcodone-acetaminophen ([place]) 7.5-325 MG tablet, Take 1 tablet by mouth every 6 (six) hours if needed for severe pain, Disp: 120 tablet, Rfl: 0 Lancets (OneTouch Delica Plus [id number]) [facility] [place], USE 1 LANCET TO [...] min Stress: No Stress Concern Present (11/12/2022) [employer] - Occupational Stress Questionnaire Feeling of Stress : Not at all Social Connections: Moderately Isolated (11/12/2022) Social Connection and Isolation Panel [NHANES] Frequency of Communication with Friends and Family: More than three times a week Frequency of Social Gatherings with Friends and Family: Once a week Attends Shinto Services: Never Active Member of Clubs or [...] and negative PT pedal pulses NEURO: 5.07 [place] Arturo monofilament test intact to digits and forefoot bilaterally 125Hz tuning fork diminished to 1st MPJ bilaterally ORTHO: Positive pain on palpation to nails 1 through 10 ASSESSMENT 1. Type 2 diabetes mellitus with diabetic neuropathy, without long-term current use of insulin ([facility]) 2. Pain due to onychomycosis of toenails [...] nonweightbearing Alessandro Levi DPM documented in this encounterChristian [id number] Telephone encounter Note* Telephone Encounter - PHILIP Magallanes - 03/30/2024 4:43 PM EDT OARRS reviewed, Rx sent into patient's pharmacy. Christian [id number] Miscellaneous Notes* Telephone Encounter - PHILIP Magallanes - 03/30/2024 4:43 PM EDT OARRS reviewed, Rx sent into patient's pharmacy. documented in this encounterChristian [id number] Evaluation + Plan note Extracted from:Title:ANES Post-operative Note---GeneralAuthor:Luciano Grace MD Date:03/08/24 Plan Transfer/Discharge: Transfer/Discharge Discharge when meets criteria ( To home ). Extracted from:Title:ANES Pre-operative Note uthor:Luciano Grace MDDate: 03/08/24 Plan [place] [employer] (ASA) physical status classification: Class IV. Anesthetic Preoperative Plan: Anesthesia Monitored anethesia care.[facility] 09-17-2024 NoteProgress Note-Physician Patient: JAQUELIN NORWOOD Age: 83 years Sex: Female : 1940 Associated Diagnoses: None Author: Luciano Grace MD Postoperative Information Postoperative disposition: Postoperative disposition: To PACU. Optimetrix number: Optimetrix number [id number]. Anesthetic utilized: General. Health Status Allergies: Allergic [...] Discharge when meets criteria ( To home ).[facility] HospitalComment on above:Result Comment: Electronically Signed By: Luciano Grace MD\.br\Date and Time Signed: 03/08/24 13:29 EDT 03-08-2024 Hospital Discharge instructions Patient Education 03/08/2024 10:37:00 Colonoscopy, Care After Surgery Salam (CUSTOM) Colonoscopy Care After Surgery Please read the instructions outlined below and refer to this sheet in the next few weeks. These discharge instructions provide you with general information on [facility] Your doctor may also give you specific [...] hard liquor (44 mL). General instructions Take tfwr-bhu-qswrczv and prescription medicines only as told by [...] provider. Document Revised: 09/26/2020 Document Reviewed: 09/26/2020 [place] Patient Education 2023 [employer] Dialog. 03/08/2024 10:36:48 Diverticulosis Diverticulosis Diverticulosis is when [...] get enough exercise. You smoke. You take pviv-ocr-boycxxy pain medicines. You have a family history [...] Follow these instructions at home: Medicines Take lbxh-jhm-alwinsp and prescription medicines only as told by your provider. If told, take a fiber supplement or probiotic. Managing constipation Your condition may cause constipation. To prevent or treat constipation, you may need to: Drink enough fluid to keep your pee (urine) pale yellow. Take gvbs-qon-lndhzdk or prescription medicines. Eat foods that are [...] provider. Document Revised: 03/05/2023 Document Reviewed: 03/05/2023 [place] Patient Education 2023 [employer] Dialog. 03/08/2024 10:36:44 Hemorrhoids, Erwn-wo-Ykpm Hemorrhoids Hemorrhoids are swollen veins that may [...] Follow these instructions at home: Medicines Take xnnm-hsk-ljanjwm and prescription medicines only as told by [...] provider. Document Revised: 02/18/2023 Document Reviewed: 02/18/2023 [place] Patient Education 2023 Digital [employer] Dialog. Follow Up Care 02/16/2024 14:51:06 With:Amaris VALDEZ, WILBERTO Jean-Baptiste, [facility] Address: [address] [place] [address], [address] [place] [phone] When: Unknown Comments:Office will call to schedule follow up appointment and/or review any pending biopsy resultsCall forany problems. [facility] 09-17-2024 NotePatient Education - Text Colonoscopy Care [...] exercise. ? You smoke. ? You take bpxa-zat-yxxzgib pain medicines. ? You have a family [...] these instructions at home: Medicines ? Take cyeo-eyd-ibxhqfp and prescription medicines only as told by your provider. ? If told, take a fiber supplement or probiotic. Managing constipation Your condition may cause constipation. To prevent or treat constipation, you may need to: ? Drink enough fluid to keep your pee (urine) pale yellow. ? Take vqhh-rqd-twjatmx or prescription medicines. ? Eat foods that [...] care provider. Document Lise (more content not included)...[facility] 03-08-2024 NoteProgress Note-Physician Patient: JAQUELIN NORWOOD [...] CT of the abdomen / SNOMED CT 7738079393 / Confirmed Cholelithiasis / SNOMED CT 684763662 / Confirmed Esophageal dysmotility / SNOMED CT 140935171 / Confirmed Esophageal dysphagia / SNOMED CT 75186374 / Confirmed History of gastric surgery / SNOMED CT 1377827853 / Confirmed, Active Problems (5) Abnormal CT of the abdomen Cholelithiasis Esophageal dysmotility Esophageal dysphagia History of gastric surgery Histories Past Medical History: No active or resolved past medical history items have been selected or recorded. Family History: Heart disease Mother Diabetes mellitus type 2 Mother Cancer Father Mother Procedure history: Sigmoidoscopy ([id number]) on 03/08/2024 at 83 Years. EGD - esophagogastroduodenoscopy ([id number]) on 02/03/2024 at 83 Years. Colonoscopy ([id number]) on 02/03/2024 at 83 Years. Social History Social & Psychosocial Habits Tobacco 12/21/2023 Tobacco Use: Former smoker, quit more . Physical Examination Vital Signs 03/08/2024 8:46 EDT Temperature Temporal Artery 36.7 DegC Heart Rate Monitored 88 bpm Respiratory Rate 2 (more content not included)...[facility] Comment on above:Result Comment: Electronically Signed By: Sanjay VALDEZ, Luciano Leonard\.zari\Date and Time Signed: 03/08/24 10:10 [id number] History of Present illness Narrative* Alessandro Levi, [...] Past Medical History: Diagnosis Date Acquired hypothyroidism ([facility]) Acute exacerbation of chronic obstructive pulmonary disease ([facility]) 07/16/2016 Anxiety state ([facility]) Cardiomegaly Chronic airway obstruction ([facility]) Chronic back pain spinal stenosis Depressive disorder ([facility]) Diabetes mellitus without complication ([facility]) Diabetes mellitus without mention of complication, type II or unspecified type, not stated as uncontrolled Encephalopathy 10/14/2022 Essential hypertension, benign ([facility]) Former smoker 08/15/2017 H/O being hospitalized 02/20/2020 Resp. Distress, Hypoxia, JONE, LLL Pneumonia, Sepsis History of echocardiogram 02/21/2020 ECHO EF 65-70% Lt [facility] Severely Dilated (02/21/2020) Hyperlipidemia, unspecified ([facility]) Hypertonicity of bladder Left thyroid nodule ([facility]) Morbid obesity ([facility]) 07/04/2019 Osteoarthrosis Peripheral vascular disease, unspecified ([facility]) Unspecified combined systolic (congestive) and diastolic (congestive) heart failure ([facility]) Medications: Current Outpatient Medications: albuterol (2.5 MG/3ML) [...] the same time., Disp: , Rfl: HYDROcodone-acetaminophen ([place]) 7.5-325 MG tablet, Take 1 tablet by mouth every 6 (six) hours if needed for severe pain, Disp: 120 tablet, Rfl: 0 Lancets (OneTouch Delica Plus [id number]) [facility] [place], USE 1 LANCET TO [...] min Stress: No Stress Concern Present (11/12/2022) [place] [employer] - Occupational Stress Questionnaire Feeling of Stress : Not at all Social Connections: Moderately Isolated (11/12/2022) Social Connection and Isolation Panel [NHANES] Frequency of Communication with Friends and Family: More than three times a week Frequency of Social Gatherings with Friends and Family: Once a week Attends Shinto Services: Never Active Member of Clubs or [...] and negative PT pedal pulses NEURO: 5.07 [place] Arturo monofilament test intact to digits and forefoot bilaterally 125Hz tuning fork diminished to 1st MPJ bilaterally ORTHO: Positive pain on palpation to nails 1 through 10 ASSESSMENT 1. Onychomycosis 2. Thickened nail 3. Type 2 diabetes mellitus with diabetic neuropathy, without long-term current use of insulin ([facility]) 4. Toe pain, bilateral 5. Venous insufficiency [...] activities. Alessandro Levi DPM documented in this encounterChristian [id number] Evaluation + Plan note Extracted from:Title:ANES Post GeneralAuthor:Tiago Peterson DODate:02/03/24 Plan Transfer/Discharge: Patient exhibiting no signs of N/V. Hydration status is adequate. Extracted from:Title:EGD Dysphagia balloonAuthor:Mandi Glez MDDate: 02/03/24 Patient: JAQUELIN NORWOOD Age: 83 years Sex: [...] safety measures. Endoscope type used was an adult- size, introduced orally, advanced to the 2nd portion of the duodenum. No difficulty was encountered during the procedure. Views were excellent. The patient tolerated the procedure well. Findings 1. Mild Schatzki ring and esophageal narrowing was noted at the GE junction. Dilation was performedusing TTS balloon 12-15 mm, dilation was perfumed to 15 mm with moderate resistance. Minimal mucosal disruption was noted post dilation. No wall defect was seen afterwards. Biopsies obtained 2. Mild and patchy erythema throughout the stomach status post biopsies. 3. Patchy erythema in the duodenal bulb. otherwise, normal duodenum. Images Procedure images: Rec1_hd_video___26_067.jpg Rec1_hd_video___34_629.jpg Rec1_hd_video___43_827.jpg Rec1_hd_video___55_948.jpg Rec1_hd_video___13_375.jpg Rec1_hd_video___35_569.jpg Rec1_hd_video___31_722.jpg Rec1_hd_video___44_158.jpg Rec1_hd_video___17_870.jpg Rec1_hd_video_2023__[id number]_284.jpg Rec1_hd_video__T09_31_02_072.jpg Rec1_hd_video__09_32_03_161.jpg . Post-Procedure Complications: none. Estimated blood loss: none. Specimens: None. Devices/ implants: none left in place. Impression and Plan Schatzki's ring and esophageal stricture status post dilation Gastropathy Duodenitis Recommendations: -Liquid then soft diet today, advance as tolerated tomorrow -Resume home medications -Await pathology results, follow in GI clinic in 1-2 after discharge forAddendum by Amaris VALDEZ, Mandi Red on February 03, 2024 10:30 EDTIncrease omeprazole to twice a day Extracted from:Title:Nicholas Sanchez PREAuthor:Tiago Peterson DODate: 02/03/24 Plan [place] [employer]esthesiologists (ASA) physical status classification: Class II. Anesthetic Preoperative Plan: Anesthesia General.[facility] 08-14-2024 Hospital Discharge instructions Patient Education 02/03/2024 [...] including vitamins, herbs, eye drops, creams, and gsbb-obo-lbdxvzl medicines. Any problems you or family members [...] provider tells you to take them. ?Taking aoxs-bse-dzaeyxj medicines, vitamins, herbs, and supplements. Follow instructions [...] home. Follow these instructions at home: Take ssgn-dmw-jpomaus and prescription medicines only as told by [...] provider. Document Revised: 10/24/2020 Document Reviewed: 10/24/2020 [place] Patient Education 2022 Digital Health Dialog. Follow Up Care 12/21/2023 14:19:00 With:Amaris VALDEZ, WILBERTO Jean-Baptiste, [facility] Address: [address] [place] [address], [address] [place] [phone] When: Unknown Comments:Office will call Date and Time of Follow-up RejitAjith [facility] 08-14-2024 NoteProgress Note-Physician Patient: JAQUELIN NORWOOD Age: [...] CT of the abdomen / SNOMED CT 1234312750 / Confirmed Cholelithiasis / SNOMED CT 224290908 / Confirmed Esophageal dysmotility / SNOMED CT 145066964 / Confirmed Esophageal dysphagia / SNOMED CT 79015648 / Confirmed History of gastric surgery / SNOMED CT 5318775323 / Confirmed Physical Examination Vital Signs 02/03/2024 [...] mmHg Diastolic Blood Pres (more content not included)...[facility] Comment on above:Result Comment: Electronically Signed By: Tiago Peterson DO\.br\Date and Time Signed: 02/03/24 10:46 [id number] NotePatient Education - Text Gastroenterology Esophageal Dilatation [...] including vitamins, herbs, eye drops, creams, and fcts-waz-ranvngx medicines. ? Any problems you or family [...] tells you to take them. ? Taking ozud-rpe-vjqzmrf medicines, vitamins, herbs, and supplements. ? Follow [...] Follow these instructions at home: ? Take ezlt-oxz-vvcivfq and prescription medicines only as told by [...] this procedure, a nu (more content not included)...[facility]08-14-2024 NoteProgress Note-Physician Patient: JAQUELIN NORWOOD Age: [...] CT of the abdomen / SNOMED CT 5579628158 / Confirmed Cholelithiasis / SNOMED CT 211009029 / Confirmed Esophageal dysmotility / SNOMED CT 116284721 / Confirmed Esophageal dysphagia / SNOMED CT 66708452 / Confirmed History of gastric surgery / SNOMED CT 5977426629 / Confirmed, Active Problems (5) Abnormal CT [...] br/min Systolic Blood P (more content not included)...[facility] Comment on above:Result Comment: Electronically Signed By: Tiago Peterson DO\.zari\Date and Time Signed: 02/03/24 09:23 [id number] Telephone encounter Note* Telephone Encounter - PHILIP Magallanes - 07/27/2023 8:00 AM EST sent [facility] [id number] Miscellaneous Notes* Telephone Encounter - PHILIP Magallanes - 07/27/2023 8:00 AM EST sent documented in this encounterChristian [id number] History of Present illness Narrative* Patient is [...] in 3 to 4 months [facility] Work Phone: [phone] 346-235904-26-2021 History of Present illness Narrative* Patient is [...] her back in 3 to 4 months [facility] 250 DO Work Phone: Evaluation + Plan note Future Appointments Appointment Date:01/11/2024 09:30:00 AM Scheduled Provider: Location:[facility] Appointment Type:Surgery [facility] Evaluation note* Diagnosis Essential hypertension ([facility]) Unspecified essential hypertension documented in this encounter [...] neuropathy, without long-term current use of insulin ([facility])- Primary Pain due to onychomycosis of toenails of both feet Venous insufficiency Unspecified venous (peripheral) insufficiency [facility]* Diagnosis Type 2 diabetes mellitus with diabetic neuropathy, without long-term current use of insulin ([facility])- Primary Pain due to onychomycosis of toenails of both feet Venous insufficiency Unspecified venous (peripheral) insufficiency documented [facility]* Diagnosis Type 2 diabetes mellitus with diabetic neuropathy, without long-term current use of insulin ([facility])- Primary Degenerative lumbar spinal stenosis Spinal stenosis of lumbar region Allergic rhinitis, unspecified Depression with anxiety Dysthymic disorder Chronic combined systolic and diastolic congestive heart failure ([facility]) Panlobular emphysema ([facility]) Other emphysema Symptomatic cholelithiasis [facility]* Diagnosis Panlobular emphysema ([facility])- Primary Other emphysema Chronic combined systolic and diastolic congestive heart failure ([facility]) Symptomatic cholelithiasis documented [facility]* Diagnosis Degenerative lumbar spinal stenosis Spinal stenosis of lumbar region Depression with anxiety Dysthymic disorder documented [facility]* Diagnosis Venous insufficiency- Primary Unspecified venous (peripheral) insufficiency Thickened nail Type 2 diabetes mellitus with diabetic neuropathy, without long-term current use of insulin ([facility] Onychomycosis Dermatophytosis of nail Toe pain, bilateral documented [facility]* Diagnosis Depression with anxiety Dysthymic disorder Degenerative lumbar spinal stenosis Spinal stenosis of lumbar region documented in this [facility]* Diagnosis Panlobular emphysema ([facility])- Primary Other emphysema COPD with acute exacerbation ([facility]) Acute cystitis without hematuria Symptomatic cholelithiasis Chronic combined systolic and diastolic congestive heart failure ([facility]) Depression with anxiety Dysthymic disorder documented [facility]* Diagnosis Degenerative lumbar spinal stenosis Spinal stenosis of lumbar region Depression with anxiety Dysthymic disorder Type 2 diabetes mellitus with diabetic neuropathy, without long-term current use of insulin ([facility] Primary Pain due to onychomycosis of toenails of both feet Venous insufficiency Unspecified venous (peripheral) insufficiency documented [facility]* Diagnosis Nontoxic single thyroid nodule ([facility])- Primary Nontoxic uninodular goiter documented in this encounter [facility]* Diagnosis Type 2 diabetes mellitus with diabetic neuropathy, without long-term current use of insulin ([facility])- Primary Pain due to onychomycosis of toenails of both feet Venous insufficiency Unspecified venous (peripheral) insufficiency documented [facility] encounter [facility]* Diagnosis Panlobular emphysema (CMS/HCC)- Primary Other emphysema Moderate recurrent major depression ([facility]/HCC) Major depressive disorder, recurrent episode, moderate Depression [...] this encounter [facility] noteNo assessment information availableKettering [facility] Work Phone: Evaluation note* Diagnosis 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)- Primary documented in this encounter [facility]* Diagnosis Community acquired pneumonia, unspecified laterality- Primary Hyponatremia Hyposmolality and/or hyponatremia Panlobular emphysema (CMS/HCC) Other emphysema Nausea Nausea alone Gastroesophageal reflux disease without esophagitis Esophageal reflux 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) Type 2 diabetes mellitus with diabetic neuropathy, without long-term current use of insulin ([facility]/HCC)- Primary Pain due to onychomycosis of toenails [...] in this encounter [facility]* Diagnosis Chronic diastolic congestive heart failure (HCC)- Primary Closed fracture of multiple ribs with routine healing, unspecified laterality, subsequent encounter documented in this encounter [facility]* Diagnosis Closed fracture of multiple ribs of right side, initial encounter documented in this encounter [facility]* Diagnosis Depression with anxiety Dysthymic disorder documented in this encounter [facility]* Diagnosis Cervical radiculitis- Primary Brachial neuritis or radiculitis nos Chronic combined systolic and diastolic congestive heart failure (HCC) documented in this encounter [facility]* Diagnosis Cervical radiculitis- Primary Brachial neuritis or radiculitis nos Closed fracture of multiple ribs of right side, initial encounter Depression with anxiety Dysthymic disorder documented in [...] 6. We will repeat her carotid Doppler -[facility] 250 DO Work Phone: History of Present [...] will repeat her carotid Doppler [facility] Work Phone: Hospital course Narrative No data available for this section [facility] Hospital Discharge instructions No data available for this section [facility] Progress note No data available for this section [facility] Reason for referral (narrative)No reason for referral information availableKettering [facility] Work Phone: Chief Complaint * overdue. * JAQUELIN NORWOOD [...] of acute myoc ardial infarction: Brother(V17.3, Z82.49) Status:ActiveFamily history of congestive heart failure: Mother(V17.49, Z82.49) Status:ActiveFamily history of diabetes mellitus: Sister(V18.0, Z83.3) Status:ActiveFamily history of malignant neoplasm: Father(V16.9, Z80.9) Status:Active Unknown Family Member Name Dates Details Family history of diabetes m ellitus: Sister(V18.0, Z83.3) Status:ActiveFamily history of malignant neoplasm: Father(V16.9, Z80.9) Status:ActiveFamily history of congestive heart failure: Mother(V17.49, Z82.49) Status:ActiveFamily history of acute myocardial infarction: Brother(V17.3, Z82.49) Status:Active Unknown Family Member Name Dates Details Family history of diabetes m ellitus: Sister(V18.0, Z83.3) Status:ActiveFamily history of malignant neoplasm: Father(V16.9, Z80.9) Status:ActiveFamily history of congestive heart failure: Mother(V17.49, Z82.49) Status:ActiveFamily history of acute myocardial infarction: Brother(V17.3, Z82.49) Status:Active Unknown Family Member Name Dates Details Family history of acute myoc ardial infarction: Brother(V17.3, Z82.49) Status:ActiveFamily history of congestive heart failure: Mother(V17.49, Z82.49) Status:ActiveFamily history of diabetes mellitus: Sister(V18.0, Z83.3) Status:ActiveFamily history of malignant neoplasm: Father(V16.9, Z80.9) Status:Active Unknown Family Member Name Dates Details Family history of acute myoc ardial infarction: Brother(V17.3, Z82.49) Status:ActiveFamily history of congestive heart failure: Mother(V17.49, Z82.49) Status:ActiveFamily history of diabetes mellitus: Sister(V18.0, Z83.3) Status:ActiveFamily history of malignant neoplasm: Father(V16.9, Z80.9) Status:Active Relationship Condition Age at Onset Recorded Date/T karly brother Unknown fatherDeceasedUnknownMalignant neoplasmUnknownmotherDeceasedUnknownDiabetes mellitusUnknownHeart diseaseUnknownsisterDeceasedUnknown Summary Purpose Advance Directives Advance Directive Response Recorded Date/ Time Advance Directives No April 20, 2018 1:48pm Advance Directive Response Recorded Date/ Time Advance Directives No April 20, 2018 2:48pm Additional Source Comments INFORMATION SOURCE (unrecogn ized section and content) DATE CREATED AUTHOR 02/27/2022 [facility] DATE CREATED AUTHOR AUTHOR'S ORGANIZ ATION 04/15/2022 [facility] DATE CREATED AUTHOR AUTHOR'S ORGANIZ ATION 10/25/2022 [facility] DATE CREATED AUTHOR AUTHOR'S ORGANIZ ATION 02/06/2024 [facility] DATE CREATED AUTHOR AUTHOR'S ORGANIZ ATION 02/07/2024 [facility] DATE CREATED AUTHOR AUTHOR'S ORGANIZ ATION 03/04/2024 [facility] DATE CREATED AUTHOR AUTHOR'S ORGANIZ ATION 03/09/2024 [facility] DATE CREATED AUTHOR AUTHOR'S ORGANIZ ATION 03/13/2024 [facility] DATE CREATED AUTHOR AUTHOR'S ORGANIZ ATION 03/14/2024 [facility] DATE CREATED AUTHOR AUTHOR'S ORGANIZ ATION 02/23/2025 [facility] DATE CREATED AUTHOR AUTHOR'S ORGANIZ ATION 03/04/2025 [facility] DATE CREATED AUTHOR AUTHOR'S ORGANIZ ATION 04/09/2025 [facility] EPIC Reason for Visit (unrecogniz ed section and content) ReasonCommentsMed RefillReasonOnset DateCommentsMed [id number] DateCommentsMed [id number] Foot CareDm NailsReasonComments Follow-upControlled/pain medDiabetesHypertensionMed Refill Laratidine,xanax,hydrocodone--[facility] bellReasonCommentsResultsPFTEcho has not been done yet--pending ins approvalEmphysemaMed RefillZofran --[facility]vs bellReasonOnset DateCommentsMed Ffqwds714ReasonCommentsDM Foot CareDM NailsSpecialty Diagnoses / ProceduresReferred By ContactReferred To ContactPodiatry Diagnoses Thickened nail Type 2 diabetes mellitus with diabetic neuropathy, without long-term current use of insulin ([facility]) Procedures [place] OFFICE/OUTPATIENT NEW HIGH MDM 60 MINUTES Can Mason PA [address] [facility] [address] [place] [address] Alessandro Levi DPM [address] [facility] [address] [place] [address] Referral IDStatusReasonStart DateExpiration DateVisits RequestedVisits [id number] Specialty Services Required /[id number] DateCommentsMed Ibueqa8603/02/2024easonComments Congestive Heart FailureResultsEcho resultsDepressionReasonOnset DateCommentsMed Zjuitg8307/03/2024ReasonCommentsThyroid Nodule1 year follow up ultrasound [facility] ReasonCommentsDM Foot CareDm nail careReasonCommentsAD (Adjustment Disorder) ReasonCommentsPanlobular emphysemaConsultationSpecialtyDiagnoses / Procedures Referred By ContactReferred To ContactPulmonary Disease / Pulmonology Diagnoses Panlobular emphysema (CMS/HCC) Procedures [place] OFFICE/OUTPATIENT NEW HIGH [facility] Yossi Landers MD [address] [facility] [address] [place] [address] Phone: tel: fax: Kristen William, DO [address] [facility] [place] [address] Phone: tel: fax: Referral IDStatusReasonStart DateExpiration DateVisits RequestedVisits [id number] Specialty Services Required 1ReasonOnset DateCommentsMed Ntdasq1108/06/2024ReasonComments Congestive Heart FailureAnxietyReasonCommentsMed RefillAlbuterol for nebulizer ReasonCommentsPneumonia1 week follow upReasonOnset DateCommentsdiuretic 10/13/2024ReasonOnset DateCommentsMed Wmmbbm4810/27/2024ReasonCommentsMedicare Annual Wellness Visit SubsequentEdemaReasonOnset DateCommentsMed Refill 12/03/2024ReasonCommentsvaginal pressurePt present today to discuss vaginal pressure.ReasonOnset DateCommentsMed Udwsbo8401/03/2025ReasonCommentsMed Refill ReasonCommentsFollow-upAdmitted TB 01/09/25 dx:HTN, CHF exacerbation discharged home 01/11/25 has home health rx for prednisone given, torsemide increased to 15mg every dayFollow up with cardiology 01/18/25discuss medicationAt hospital discharge pt was advised not to take hydrocodone until she talks to pcpAlso was advisedto change the dosing of xanax -if anxiety is not reduced with 0.25mg take an additional tablet for total of 0.5mg --take every 8 hours as needed recommendations for sodiumPt family wondering if she can have salt and if so how much-- also wondering if there are days she should hold her blood pressure meds if her blood pressure is lowReasonCommentsCOPD exacerbationReasonOnset Date CommentsMed Srndzs7702/06/2025ReasonOnset DateCommentsMed Xwxquc0803/06/2025Reason Onset DateCommentsMed Hqjesp6603/09/2025ReasonCommentsneck/shoulder painCongestive Heart FailureMed RefillXanax,hydrocodone--[facility] Teams (unrecognized sec tion and content) Team MemberRelationshipSpecialtyStart DateEnd Yossi Landers MD [address] [facility] [address] [place] [address] PCP - GeneralInternal Medicine11/03/22 Yossi Landers MD [address] [facility] [address] [place] [address] PCP - Human11/20/22Team MemberRelationshipSpecialtyStart DateEnd Yossi Landers MD [address] [facility] [address] [place] [address] PCP - GeneralInternal Medicine11/03/22 Yossi Landers MD [address] [facility] [address] [place] [address] PCP - [employer]11/20/22Team MemberRelationshipSpecialtyStart DateEnd Yossi Landers MD [address] [facility] [address] [place] [address] PCP - GeneralInternal Medicine11/03/22 Yossi Landers MD [address] [place] [address] PCP - [facility]11/20/22Team MemberRelationshipSpecialtyStart DateEnd Yossi Landers MD [address] [place] [address] PCP - GeneralInternal [facility]11/03/22 Yossi Landers MD [address] [place] [address] PCP - [facility]11/20/22Team MemberRelationshipSpecialtyStart DateEnd Date Yossi Landers MD [address] [place] [address] PCP - GeneralInternal [facility]11/03/22 Yossi Landers MD [address] [place] [address] PCP - [facility]11/20/22Team MemberRelationshipSpecialtyStart DateEnd Date Yossi Landers MD [address] [place] [address] PCP - GeneralInternal [facility]11/03/22 Yossi Landers MD [address] [place] [address] PCP - [facility]11/20/22Team MemberRelationshipSpecialtyStart DateEnd Date Yossi Landers MD [address] [place] [address] PCP - GeneralInternal Medicine11/03/22 Yossi Landers MD [address] [place] [address] PCP - [facility]11/20/22Team MemberRelationshipSpecialtyStart DateEnd Yossi Landers MD [address] [place] [address] PCP - GeneralInternal [facility]11/03/22 Yossi Landers MD [address] [place] [address] PCP - [facility]11/20/22Team MemberRelationshipSpecialtyStart DateEnd Date Yossi Landers MD [address] [place] [address] PCP - GeneralInternal [facility]11/03/22 Yossi Landers MD [address] [place] [address] PCP - [facility]11/20/22Team MemberRelationshipSpecialtyStart DateEnd Date Yossi Landers MD [address] [place] [address] PCP - GeneralInternal [facility]11/03/22 Yossi Landers MD [address] [place] [address] PCP - [facility]11/20/22Team MemberRelationshipSpecialtyStart DateEnd Date Yossi Landers MD [address] [place] [address] PCP - GeneralInternal Medicine11/03/22 Yossi Landers MD [address] [place] [address] PCP - [facility]11/20/22Team MemberRelationshipSpecialtyStart DateEnd Yossi Landers MD [address] [place] [address] PCP - GeneralInternal [facility]11/03/22 Yossi Landers MD [address] [place] [address] PCP - [facility]11/20/22Team MemberRelationshipSpecialtyStart DateEnd Date Yossi Landers MD [address] [place] [address] PCP - GeneralInternal [facility]11/03/22 Yossi Landers MD [address] [place] [address] PCP - [facility]11/20/22Team MemberRelationshipSpecialtyStart DateEnd Date Yossi Landers MD [address] [place] [address] PCP - GeneralInternal [facility]11/03/22 Yossi Landers MD [address] [place] [address] PCP - [facility]11/20/22Team MemberRelationshipSpecialtyStart DateEnd Date Yossi Landers MD [address] [place] [address] PCP - [facility] Corporation[facility]11/03/22 Yossi Landers MD [address] [place] [address] PCP - [facility]11/20/22Team MemberRelationshipSpecialtyStart DateEnd Date Yossi Landers MD [address] [place] [address] PCP - GeneralT[facility] City [facility] Health Care Corporationnal Medicine11/03/22 Yossi Landers MD [address] [place] [address] PCP - [facility]11/20/22 Seble Mejia, CIPRIANO Clinical AdvocateP[facility]07/29/24Team MemberRelationshipSpecialtyStart Date End Date Yossi Landers MD [address] [place] [address] [facility]11/03/22 Yossi Landers MD [address] [place] [address] PCP - [facility]11/20/22 Seble Mejia, CIPRIANO Clinical [facility]ocateP[facility]07/29/24 Team Status: Active Member Role Status Dates Yossi Landers II MD Primary Care Provider Active Team Status: Inactive Member Role Status Dates Yossi Landers II MD Primary Care Provider Active Start: August 13, 2024 End: August 13, 2024Ashley Singh ProviderActiveStart: August 13, 2024 End: August 13, 2024Team MemberRelationshipSpecialtyStart DateEnd Date Yossi Landers MD [address] [place] [address] PCP - GeneralInternal Medicine11/03/22 Yossi Landers MD [address] [place] [address] PCP - [employer]11/20/22 Seble Mejia, RN Clinical AdvocateFamily Medicine07/29/24Team MemberRelationshipSpecialtyStart Date End Date Yossi Landers MD [address] [place] [address] PCP - GeneralInternal Medicine11/03/22 Yossi Landers MD [address] [place] [address] PCP - [employer]11/20/22 Seble Mejia, CIPRIANO Clinical Advocate[facility]07/29/24Team MemberRelationshipSpecialtyStart Date End Date Yossi Landers MD [address] [place] [address] PCP - GeneralInternal Medicine11/03/22 Yossi Landers MD [address] [place] [address] PCP - [employer]11/20/22 Daniela Alvarado LPN 09/09/24Team MemberRelationshipSpecialtyStart DateEnd Date Yossi Landers MD [address] [place] [address] PCP - GeneralInternal Medicine11/03/22 Yossi Landers MD [address] [place] [address] PCP - [facility]11/20/22 Daniela Alvarado CLIENT RETENTION SPECIALIST 09/09/24Team MemberRelationshipSpecialtyStart DateEnd Date Yossi Landers MD [address] [place] [address] PCP - [facility] Corporationnal Medicine11/03/22 Yossi Landers MD [address] [place] [address] PCP - [facility]11/20/22 Daniela Alvarado CLIENT RETENTION SPECIALIST 09/09/24Team MemberRelationshipSpecialtyStart DateEnd Date Yossi Landers MD [address] [place] [address] [facility] - [facility]11/03/22 Yossi Landers MD [address] [place] [address] PCP - [facility]11/20/22 Daniela Alvarado CLIENT RETENTION SPECIALIST 09/09/24Team MemberRelationshipSpecialtyStart DateEnd Date Yossi Landers MD [address] [place] [address] PCP - [facility]Fill[facility]11/03/22 Yossi Landers MD [address] [place] [address] PCP - [facility]11/20/22 Daniela Alvarado CLIENT RETENTION SPECIALIST 09/09/24 Team Status: Active Member Role Status Dates Yossi Landers II MD Primary Care Provider Active Start: August 14, 2024 Ashley Valdes ProviderActiveStart: August 14, 2024 Team Status: Inactive Member Role Status Dates Elías Graham MD Attending Provider Active Sta rt: October 01, 2024 End: October 01, 2024Team MemberRelationshipSpecialtyStart DateEnd Date Yossi Landers MD [address] [place] [address] PCP - GeneralInternal Medicine11/03/22 Yossi Landers MD [address] [place] [address] PCP - [facility]11/20/22 Daniela Alvarado LPN 09/09/24Team MemberRelationshipSpecialtyStart DateEnd Date Yossi Landers MD [address] [place] [address] PCP - GeneralInternal Medicine11/03/22 Yossi Landers MD [address] [place] [address] PCP - [facility]11/20/22 Daniela Alvarado CLIENT RETENTION SPECIALIST 09/09/24Team MemberRelationshipSpecialtyStart DateEnd Date Yossi Landers MD [address] [place] [address] PCP - GeneralInternal Medicine11/03/22 Yossi Landers MD [address] [place] [address] PCP - [facility]11/20/22 Daniela Alvarado LPN 09/09/24Team MemberRelationshipSpecialtyStart DateEnd Date Yossi Landers MD [address] [place] [address] PCP - GeneralInternal Medicine11/03/22 Yossi Landers MD [address] [place] [address] PCP - [employer]11/20/22 Daniela Alvarado, [facility] 09/09/24Team MemberRelationshipSpecialtyStart DateEnd Date Yossi Landers MD [address] [place] [address] PCP - GeneralInternal Medicine11/03/22 Yossi Landers MD [address] [place] [address] PCP - [facility]11/20/22 Daniela Alvarado, [facility] 09/09/24Team MemberRelationshipSpecialtyStart DateEnd Date Yossi Landers MD [address] [place] [address] PCP - GeneralInternal Medicine11/03/22 Yossi Landers MD [address] [place] [address] PCP - [facility]11/20/22 Daniela Alvarado, [facility] [address] [place] [address] 09/09/24Team MemberRelationshipSpecialtyStart DateEnd Date Yossi Landers MD [address] [place] [address] PCP - GeneralInternal Medicine11/03/22 Yossi Landers MD [address] [place] [address] PCP - [employer]11/20/22 Daniela Alvarado LPN [address] [place] [address] 09/09/24Team MemberRelationshipSpecialtyStart DateEnd Date Yossi Landers MD [address] [place] [address] PCP - GeneralInternal Medicine11/03/22 Yossi Landers MD [address] [place] [address] PCP - [employer]11/20/22 Daniela Alvarado LPN [address] [place] [address] 09/09/24Team MemberRelationshipSpecialtyStart DateEnd Date Yossi Landers MD [address] [place] [address] PCP - GeneralInternal Medicine11/03/22 Yossi Landers MD [address] [place] [address] PCP - [employer]11/20/22 Daniela Alvarado LPN [address] [place] [address] 09/09/24Team MemberRelationshipSpecialtyStart DateEnd Date Yossi Landers MD [address] [place] [address] PCP - GeneralInternal Medicine11/03/22 Yossi Landers MD [address] [place] [address] PCP - [employer]11/20/22 Daniela Alvarado LPN [address] [place] [address] 09/09/24Team MemberRelationshipSpecialtyStart DateEnd Date Yossi Landers MD [address] [place] [address] PCP - GeneralInternal Medicine11/03/22 Yossi Landers MD [address] [place] [address] PCP - [employer]11/20/22 Daniela Alvarado LPN [address] [place] [address] 09/09/24Team MemberRelationshipSpecialtyStart DateEnd Date Yossi Landers MD [address] [place] [address] PCP - GeneralInternal Medicine11/03/22 Yossi Landers MD [address] [place] [address] PCP - [employer]11/20/22 Daniela Alvarado LPN [address] [place] [address] 09/09/24Team MemberRelationshipSpecialtyStart DateEnd Date Yossi Landers MD [address] [place] [address] PCP - GeneralInternal Medicine11/03/22 Yossi Landers MD [address] [place] [address] PCP - [employer]11/20/22 Daniela Alvarado LPN [address] [place] [address] 09/09/24Team MemberRelationshipSpecialtyStart DateEnd Date Yossi Landers MD [address] [place] [address] PCP - GeneralInternal Medicine11/03/22 Yossi Landers MD [address] [place] [address] PCP - [employer]11/20/22 Daniela Alvarado LPN [address] [place] [address] 09/09/24 Team Status: Inactive Member Role Status Dates Duane Garcia MD Attending Provider Active St art: February 19, 2025 End: February 19, 2025Team MemberRelationshipSpecialtyStart DateEnd Date Yossi Landers MD [address] [place] [address] PCP - GeneralInternal Medicine11/03/22 Yossi Landers MD [address] [place] [address] PCP - [facility]11/20/22 Daniela Alvarado LPN [address] [place] [address] 09/09/24Team MemberRelationshipSpecialtyStart DateEnd Date Yossi Landers MD [address] [place] [address] PCP - GeneralInternal Medicine11/03/22 Yossi Landers MD [address] [place] [address] PCP - [employer]11/20/22 Daniela Alvarado LPN [address] [place] [address] 09/09/24Team MemberRelationshipSpecialtyStart DateEnd Date Yossi Landers MD [address] [place] [address] PCP - GeneralInternal Medicine11/03/22 Yossi Landers MD [address] [place] [address] PCP - [employer]11/20/22 Daniela Alvarado LPN [address] [place] [address] 09/09/24Team MemberRelationshipSpecialtyStart DateEnd Date Yossi Landers MD [address] [place] [address] PCP - GeneralInternal Medicine11/03/22 Yossi Landers MD [address] [place] [address] PCP - [employer]11/20/22 Seble Mejia, RN [address] [place] [address] Clinical AdvocateFamily Medicine/ Daniela Alvarado LPN [address] [place] [address] 09/09/24Team MemberRelationshipSpecialtyStart DateEnd Date Yossi Landers MD [address] [place] [address] PCP - GeneralInternal Medicine11/03/22 Yossi Landers MD [address] [place] [address] PCP - [facility]11/20/22 Seble Mejia RN [address] [place] [address] Clinical AdvocateFami Medicine Daniela Alvarado LPN [address] [place] [address] 09/09/24Team MemberRelationshipSpecialtyStart DateEnd Yossi Landers MD [address] [facility] [address] [place] [address] [facility] - [facility]11/03/22 Yossi Landers MD [address] [facility] [address] [place] [address] PCP - [facility]11/20/22 Seble Mejia RN [address] [place] [address] [facility] Daniela Alvarado LPN [address] [facility] [address] [place] [address] 09/09/24 Goals (unrecognized section and content) Goals [...] BE BASED ON THE PRIMARY CLINICAL RECORDS. [facility] [employer] [facility]. provides no warranty or guarantee of the accuracy or completeness of information in this document.
--- OUTSIDE RECORDS SUMMARY | 2025-04-29 12:53 | XMS_ITS | Clinical Summary ---
Author Organization [facility] Address [address], [address] [place] [address] Care Team Providers Care Circus Trainer Name Role Phone Yossi Landers MD Primary Care Provider [phone] Family History RelationNameStatusCommentsBrotherAliveFatherDeceasedMotherDeceasedSisterAlive Social History Tobacco UseTypesPacks/DayYears UsedDateSmoking Tobacco: FormerCigarettesQuit: 10/2012Smokeless Tobacco: Never Tobacco Cessation:Counseling Given: Not Answered Alcohol UseStandard Drinks/WeekCommentsNever0 (1 standard drink = 0.6 oz pure alcohol)CommentsUnknownSex and Gender InformationValueDate RecordedSex Assigned at BirthNot on fileLegal UueItqeeh15/10/2013 1:32 PM ESTGender Identity Not on fileSexual OrientationNot on file Plan of Treatment Not on file Insurance Care Teams Team MemberRelationshipSpecialtyStart DateEnd Yossi Landers MD [address] [facility] [address] [place] [address] PCP - GeneralInternal Medicine01/19/25
--- OUTSIDE RECORDS SUMMARY | 2025-04-29 12:53 | XMS_ITS | Encounter Summary ---
Author Organization [facility] Address [address] [place] [address] Care Team Providers Care Sapphire Stylus Grinder Name Role Phone Yossi Landers MD Primary Care Provider Yossi Landers MD Unavailable [phone] Seble Mejia RN Unavailable Daniela Alvarado LPN Unavailable Encounter Details DateTypeDepartmentCare Team (Latest Contact Info)Vbfbqnapayi14/15/2024Clinisync Result Encounter [facility] Department Unsolicited Yossi Landers MD [address] [facility] [address] [place] [address] Social History Tobacco UseTypesPacks/DayYears UsedDateSmoking Tobacco: FormerCigarettesQuit: 10/27/2012Smokeless Tobacco: NeverAlcohol UseStandard Drinks/WeekCommentsNot Currently0 (1 standard drink = 0.6 oz pure alcohol)caffeine intake: 2-3 cups per day of [id number] Health LiteracyAnswerDate RecordedHow often do you need to have someone help you when you read instructions, pamphlets, or other written material from your doctor or pharmacy?Jybxlgeao94/20/2024Humiliation, Afraid, Rape, and Kick questionnaireAnswerDate RecordedWithin the [...] relatives?Once a week11/12/2022How often do you attend episcopal or scientologist services?Never11/12/2022o you belong to any clubs or organizations such as episcopal groups, unions, fraternal or athletic groups, or school groups?No11/12/2022How often do you attend meetings of the clubs or organizations you belong to?Never11/12/2022re you , , , , never , or living with a partner?Doajcyt2211/12/2022 AUDIT-CAnswerDate RecordedQ1: How often do you have [...] Health Questionnaire-2 Score0 03/27/2025[facility] [place] [facility] - Occupational Stress QuestionnaireAnswerDate [...] steady place to sleep or [facility] ([facility] now)?No11/12/2022CommentsUnknown Sex and Gender InformationValueDate RecordedSex Assigned at BirthNot on file Legal GobTancdk98/15/2023 6:57 PM EDTGender IdentityNot on fileSexual OrientationNot on filedocumented as of this encounter Functional Status * AUDIT-C ScoreAnswerDate of JtmsgosdceUqvarn462/20/2024 4:23 PM Lara Begum LPN * QuestionAnswerDate [...] 3:03 PM CHACHA LOPEZ Patient Health Questionnaire-2 Mtrvu620 3:03 PM CHACHA LOPEZ * If you checked off any problems on this questionnaire so far,QuestionAnswer Date of AssessmentAuthorHow difficult have these problems made it for you to do your work, take care of things at home, or get along with other people? Somewhat eyuyeycjc55/21/2025 9:48 AM CHACHA LOPEZ documented as of this encounter Plan of Treatment DateTypeDepartmentCare Team (Latest Contact Info)Rwesljefjpb92/17/2025 11:00 AM ESTOffice Visit BURTON Dixon [address] [place] [address] [place] [address] Yossi Landers MD [address] [facility] [address] [place] [address] documented as of this encounter Procedures Procedure NamePriorityDate/TimeAssociated DiagnosisCommentsNM HEPATOBILIARY SCAN W PHARMACOLOGICAL GHCDIFNKELRE96/15/2024 10:48 AM EDT documented in this encounter Results * NM HEPATOBILIARY SCAN W PHARMACOLOGICAL INTERVENTION (01/04/2024 10:48 AM EDT) Anatomical RegionLateralityModalityRadiographic ImagingSpecimen (Source) Anatomical Location / LateralityCollection Method / VolumeCollection Time Received Time01/04/2024 10:48 AM EDT Narrative 01/04/2024 10:51 AM EDT [facility] ?[address] ? [place] [address] ?Nuclear Medicine Report ? Signed ? Patient: CUCO,ELGIN J ?MR#: [id number] ?? : 1940 ?Acct:[id number] ?? Age/Sex: 83 / F ?ADM Date: 07/15/24 ?? Loc: NM ? Attending Dr: YOSSI LANDERS ? Ordering Physician: YOSSI LANDERS ?? Date of Service: 01/04/24 ?? Procedure(s): NM hepatobiliary w pharm ?? Accession Number(s): [id number] ? cc: YOSSI LANDERS ? [facility] ? [address] ? [place] [address] ? Patient Name: ?? ELGIN NORWOOD ? MRN: [facility]:[id number] ? date: 1940 ?Sex: F ?? Assigned Patient Location: NM ?? Current Patient Location: NM ?? Accession/Order Number: [id number] ?? Exam Date: 01/04/2024 ??06:05 ?Report Date: 01/04/2024 ??10:48 ? At the request of: ?? YOSSI ??JORDAN ? Procedure: ??NM hepatobiliary w pharm ? EXAMINATION: NM hepatobiliary w pharm ? HISTORY: RIGHT UPPER QUADRANT PAIN, NAUSEA ? COMPARISON: No relevant comparison available. ? TECHNIQUE: Radionuclide hepatobiliary imaging was performed after intravenous ?? injection of 4.9 Tc-99m nephrolith in with sequential acquisitions every 1 ?? minute for one hour. Hepatobiliary imaging with gallbladder ejection fraction ?? analysis was then performed with sequential imaging every 1 minute for 60 ?? minutes after the patient drank 8 ounces of ensure plus. ? FINDINGS: ? LIVER: Normal, prompt and uniform radiotracer uptake and clearing. ?? BILIARY DUCTS: Normal radioisotopic biliary excretion. ?? GALLBLADDER: Delayed visualization at 45 minutes ?? INTESTINE: Normal with no evidence of common biliary ductal obstruction. ?? EJECTION FRACTION: 0 % within 60 minutes. (Normal EF > 38%). OTHER: Negative. ? NM/NM hepatobiliary w pharm ?? IMPRESSION: ? Delayed visualization of the gallbladder seen at 45 minutes ? Patent biliary tree ? Biliary dyskinesia with no emptying at 60 minutes ? Electronically authenticated by: CARLOS ??WEST ?? Date: 01/04/2024 ??10:48 ? Dictated By: ?Carlos Sood M.D. ? Signed By: ?01/04/24 1051 ? DD/ 1048 ? TD/TT: ? Manager Equipment: Procedure Note Radiology, Radiologist, MD - 01/04/[address] [address] Nuclear Medicine Report Signed Patient: ELGIN NORWOOD JMR#: [id number] : 2Acct:[id number] Age/Sex: 83 / FADM Date: 01/04/24 Loc: [place] Attending Dr: YOSSI LANDERS Ordering Physician: YOSSI LANDERS Date of Service: 01/04/24 Procedure(s): [place] hepatobiliary w pharm Accession Number(s): [id number] cc: YOSSI LANDERS [place] [id number] Patient Name: ELGIN NORWOOD MRN: [id number] date: 1940 Sex: F Assigned Patient Location: [place] Current Patient Location: [place] Accession/Order Number: [id number] Exam Date: 01/04/2024 06:05 Report Date: 01/04/2024 10:48 At the request of: YOSSI LANDERS Procedure: NM hepatobiliary w pharm EXAMINATION: LA hepatobiliary w pharm HISTORY: RIGHT UPPER QUADRANT [...] minutes. (Normal EF > 38%). OTHER: Negative. LA/LA hepatobiliary w pharm IMPRESSION: Delayed visualization of the gallbladder seen at 45 minutes Patent biliary tree Biliary dyskinesia with no emptying at 60 minutes Electronically authenticated by: CARLOS SOOD Date: 01/04/2024 10:48 Dictated By: Carlos Sood M.D. Signed By:01/04/24 1051 DD/ 1048 TD/TT: Manager Equipment: Authorizing ProviderResult TypeResult StatusDanironi Landers MDIMG XR PROCEDURES Final Result documented in this encounter Visit Diagnoses Not on filedocumented in this encounter Care Teams Team MemberRelationshipSpecialtyStart DateEnd Date Yossi Landers MD [address] [facility] [address] [place] [address] PCP - GeneralInternal Medicine11/03/22 Yossi Landers MD [address] [facility] [address] [place] [address] PCP - [employer]11/20/22 Seble Mejia, CIPRIANO [address] [facility] [address] Clinical AdvocateFamily Medicine/ Daniela Alvarado LPN [address] [facility] [place] [address] 09/09/24documented as of this encounter
[2025-04-29 12:57] LABS: Alanine Aminotransferase 28 U/L (14-59); Albumin Globulin Ratio 1.0; Albumin Level 3.1 g/dL (3.4-5.0); Alkaline Phosphatase 124 U/L (46-116); Anion Gap 11.8; Aspartate Amino Transferase 23 U/L (15-37); Blood Urea Nitrogen 13.0 mg/dL (7.0-18.0); Calcium 8.8 mg/dL (8.5-10.1); Carbon Dioxide 27.7 mmol/L (21.0-32.0); Chloride 102 mmol/L (98-107); Estimated GFR (African America >60 (>=60 mL/min/1.73m^2); Estimated GFR (Non-African Ame >60 (>=60 mL/min/1.73m^2); Globulin 3.2 g/dL; Glucose 107 mg/dL (74-106); Potassium 3.5 mmol/L (3.5-5.1); Sodium 138 mmol/L (136-145); Total Protein 6.3 g/dL (6.4-8.2)
[2025-04-29 12:58] LABS: NT Pro B Type Natriuretic Pept 185.0 pg/mL (<=1800.0)
--- NOTE | 2025-04-29 13:05 | CT_ITS ---
The [address] [address] Patient Name: ELGIN NORWOOD MRN: [id number] date: 1940 Sex: F Assigned Patient Location: ER Current Patient Location: ER Accession/Order Number: [id number] Exam Date: 04/29/2025 13:55 Report Date: 04/29/2025 14:37 At the request of: YOMAIRA LOWE DO Procedure: CT angio chest CT angio chest 04/29/2025 2:14 PM SIGN AND SYMPTOMS: r/o PE, SOB, history fo CHF CONTRAST: 100 mL of intravenous Omnipaque 300 TECHNIQUE: Multidetector CT axial slices of the chest were obtained with IV contrast. Multiplanar reformats were performed and viewed on a separate workstation and reviewed to further define anatomy and possible pathology. CT was performed with one or more of the following dose reduction techniques: Automated exposure control, adjustment of the mA and/or kV according to patient size, or use of iterative reconstruction technique. COMPARISON: 01/18/2025. FINDINGS: Lower neck: There is a heterogeneous 2.1 cm nodule within the left thyroid lobe at the inferior margin of the left thyroid bed. The right thyroid lobe appears to have been previously removed. Vessels: Atherosclerotic changes are noted in the thoracic aorta, origins of the great vessels, and coronary arteries. There is no evidence of pulmonary embolism. Mediastinum and Kayla: Within normal limits. Heart: Normal size. No pericardial effusion. Airways: Presumed respiratory secretions are noted in the trachea just above the alison. Lungs: There is dependent atelectasis in the lung bases. Pleura: Within normal limits. Chest Wall: Within normal limits. Upper Abdomen: Dependent debris is noted in the gallbladder lumen. Bones: Degenerative changes are noted in the thoracic spine. There is a remote healed or healing fracture of the anterior right third rib, fourth rib, and fifth rib. CT/CT angio chest IMPRESSION: No acute cardiopulmonary pathology. No evidence of pulmonary embolism. There is dependent atelectasis. Presumed respiratory secretions are noted in the trachea just above the alison. Impression dictated by: Bret Nogueira M.D. 04/29/2025 2:37 PM Dictation Location: [place] Electronically authenticated by: [id number] Y Date: 04/29/2025 14:37
[2025-04-29 13:52] LABS: SARS-CoV-2 Ag NEGATIVE (NEGATIVE)
--- NOTE | 2025-04-29 16:29 | ED.GENADUL1 ---
HPI HPI - General Adult General Chief complaint: Shortness of Breath/Dyspnea Stated complaint: WELL CHECK, DIFFICULTY BREATHING Time Seen by Provider: 04/29/25 11:45 Source: patient Mode of arrival: Wheelchair History of Present Illness HPI narrative: Patient is a 85-year-old female presenting to the emergency department for concerns of weight gain. Patient states that over the last 2 days she has gained approximately 4 pounds. She states she was told by her front office representative to go to the emergency department should this happen. She states she has a history of CHF. She states that she is mildly short of breath, otherwise is asymptomatic. She denies any significant leg swelling. She denies any chest pain. No fevers or chills. No URI symptoms such as cough, congestion, fevers, or chills. She takes torsemide twice daily, which she is compliant with. She denies history of CT or DVT/PE. She does have a history of COPD, has not smoked in over 20 years. Related Data Home Medications ?Medication ?Instructions ?Recorded ?Confirmed aspirin 81 mg chewable tablet 81 mg PO DAILY 08/02/23 04/29/25 (Dalton Chewable Low Dose Aspirin) duloxetine 60 mg capsule,delayed 60 mg PO DAILY 08/02/23 04/29/25 release gabapentin 100 mg capsule 200 mg PO Q12H 08/02/23 04/29/25 loratadine 10 mg tablet 10 mg PO DAILY 08/02/23 04/29/25 levothyroxine 100 mcg tablet 100 mcg PO .ACB 08/03/23 04/29/25 lisinopril 5 mg tablet 5 mg PO DAILY 08/13/24 04/29/25 famotidine 20 mg tablet 20 mg PO DAILY 09/30/24 04/29/25 atorvastatin 40 mg tablet 40 mg PO DAILY 01/09/25 04/29/25 memantine 10 mg tablet 10 mg PO BID 01/09/25 04/29/25 albuterol sulfate 2.5 mg/3 mL 2.5 mg inhalation Q8H PRN 01/18/25 04/29/25 (0.083 %) solution for nebulization shortness of breath or wheezing bupropion HCl 150 mg 24 hr tablet, 150 mg PO DAILY 01/18/25 04/29/25 extended release hydrocodone 5 mg-acetaminophen 325 tab 04/29/25 mg tablet torsemide 10 mg tablet 10 mg PO BID 04/29/25 04/29/25 Previous Rx's ?Medication ?Instructions ?Recorded alprazolam 0.25 mg tablet 0.25 mg PO TID PRN anxiety #0 tabs 01/11/25 Allergies Allergy/AdvReac Type Severity Reaction Status Date / Time rofecoxib (From Vioxx) Allergy Severe Unknown Verified 04/29/25 11:49 naproxen (From Aleve) Allergy Intermediate Unknown Verified 04/29/25 11:49 Opioid HPI Opioid Management Most Recent Opioid Data: Last Pain Scale 4 02/20/25, 01:44 Last Pain Intensity 0 10/03/24, 13:22 Last ORT Total Score 1 01/18/25, 12:09 Last ORT Risk Category Low Risk 01/18/25, 12:09 Review of Systems ROS Status of ROS 10 or more systems reviewed and unremarkable except as noted in history and below [facility] Medical History (Updated 04/29/25 @ 14:51 by Chris Mendes DO) Syncope and collapse ?R55 - Syncope and collapse (ICD-10) Pneumonia ?J18.9 - Pneumonia, unspecified organism (ICD-10) Nausea & vomiting ?R11.2 - Nausea with vomiting, unspecified (ICD-10) Constipation by delayed colonic transit ?K59.01 - Slow transit constipation (ICD-10) Generalized weakness ?R53.1 - Weakness (ICD-10) Pneumonia ?J18.9 - Pneumonia, unspecified organism (ICD-10) CAD (coronary artery disease) ?I25.10 - Atherosclerotic heart disease of [place] coronary artery without angina pectoris (ICD-10) Type 2 diabetes mellitus with hyperglycemia ?E11.65 - Type 2 diabetes mellitus with hyperglycemia (ICD-10) Degenerative lumbar spinal stenosis ?M48.061 - Spinal stenosis, lumbar region without neurogenic claudication (ICD-10) Chronic heart failure with preserved ejection fraction (HFpEF) ?I50.32 - Chronic diastolic (congestive) heart failure (ICD-10) HTN (hypertension) ?I10 - Essential (primary) hypertension (ICD-10) COPD (chronic obstructive pulmonary disease) ?J44.9 - Chronic obstructive pulmonary disease, unspecified (ICD-10) Primary osteoarthritis of right hip ?M16.11 - Unilateral primary osteoarthritis, right hip (ICD-10) Abdominal bloating ?R14.0 - Abdominal distension (gaseous) (ICD-10) Anxiety ?F41.9 - Anxiety disorder, unspecified (ICD-10) COPD exacerbation ?J44.1 - Chronic obstructive pulmonary disease with (acute) exacerbation (ICD-10) Acute costochondritis ?M94.0 - Chondrocostal junction syndrome [Tietze] (ICD-10) Fall ?W19.XXXA - Unspecified fall, initial encounter (ICD-10) Contusion of rib on right side ?S20.211A - Contusion of right front wall of thorax, initial encounter (ICD-10) Contusion of knee, left ?S80.02XA - Contusion of left knee, initial encounter (ICD-10) Constipation ?K59.00 - Constipation, unspecified (ICD-10) Chest wall pain ?R07.89 - Other chest pain (ICD-10) Abdominal pain ?R10.9 - Unspecified abdominal pain (ICD-10) No problem, feared complaint unfounded ?Z71.1 - Person with feared health complaint in whom no diagnosis is made (ICD-10) Grief reaction ?F43.21 - Adjustment disorder with depressed mood (ICD-10) Dehydration ?E86.0 - Dehydration (ICD-10) Head injury ?S09.90XA - Unspecified injury of head, initial encounter (ICD-10) COPD exacerbation ?J44.1 - Chronic obstructive pulmonary disease with (acute) exacerbation (ICD-10) Nausea ?R11.0 - Nausea (ICD-10) Hypothyroidism ?E03.9 - Hypothyroidism, unspecified (ICD-10) HLD (hyperlipidemia) ?E78.5 - Hyperlipidemia, unspecified (ICD-10) Insufficient home care support ?Z74.2 - Need for assistance at home and no other household member able to render care (ICD-10) Muscular deconditioning ?R29.898 - Other symptoms and signs involving the musculoskeletal system (ICD-10) CHF (congestive heart failure) ?I50.9 - Heart failure, unspecified (ICD-10) Surgical History H/O hysterectomy for benign disease ?Z90.710 - Acquired absence of both cervix and uterus (ICD-10) Previous back surgery ?Z98.890 - Other specified postprocedural states (ICD-10) H/O hernia repair ?Z98.890 - Other specified postprocedural states (ICD-10) ?Z87.19 - Personal history of other diseases of the digestive system (ICD-10) Family History Mother Family history of cancer Sister Family history of diabetes mellitus Social History Within the past year, how often did you have a drink containing alcohol: never Score interpretation: A score less than 3 is consistent with normal alcohol consumption. 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 Known occupational exposures/hazards: No Highest level of school completed/degree received: 7th grade In a typical week, how many times do you talk on the telephone with family, friends, or neighbors: twice per week How often do you get together with friends or relatives: twice per week How often do you attend jew or sabianism services: never Little interest or pleasure in doing things: not at all Feeling down, depressed, or hopeless: more than half the days Feel stressed/tense/nervous/anxious/difficulty sleeping: not at all Exam Narrative Exam Narrative: CONSTITUTIONAL: No acute distress, answering questions and following commands appropriately SKIN: Was warm and dry. EYES: Sclerae white. No. Pallor. EARS, NOSE, THROAT: Moist oral mucosa. RESPIRATORY: Clear to auscultation bilaterally, no wheezes, crackles, or stridor, no use of accessory muscles CARDIOVASCULAR: Normal rate and regular rhythm. There is no S3, S4, murmur, rub. GASTROINTESTINAL: Abdomen is soft, nontender, nondistended. No rebound tenderness or guarding. MUSCULOSKELETAL: Moderate amount of bilateral nonpitting edema in the lower extremities. NEUROLOGIC: Patient is awake and alert. Facies were symmetrical. Constitutional Vital Signs, click to edit/add: Last Vital Signs Temp 97.8 F 04/29/25 11:50 Pulse 77 04/29/25 14:40 Resp 21 H 04/29/25 14:40 BP 112/58 04/29/25 14:33 Pulse Ox 92 L 04/29/25 14:40 O2 Del Method Room Air 04/29/25 11:50 Course Vital Signs Vital signs: Vital Signs Temperature 97.8 F 04/29/25 11:50 Pulse Rate 87 04/29/25 11:50 Respiratory Rate 20 04/29/25 11:50 Blood Pressure 148/69 H 04/29/25 11:50 Pulse Oximetry 94 L 04/29/25 11:50 Oxygen Delivery Method Room Air 04/29/25 11:50 Temperature 97.8 F 04/29/25 11:50 Pulse Rate 77 04/29/25 14:40 Respiratory Rate 21 H 04/29/25 14:40 Blood Pressure 112/58 04/29/25 14:33 Pulse Oximetry 92 L 04/29/25 14:40 Oxygen Delivery Method Room Air 04/29/25 11:50 Medical Decision Making MDM Narrative Medical decision making narrative: Patient is an 85-year-old female, history significant for CHF and COPD, presenting to the emergency department with complaints of weight gain and shortness of breath. Her vital signs on arrival are within normal limits. She is afebrile and hemodynamically stable. She saturating 94% on room air. She does mildly desat when she fell asleep, but came back up to 94% when awake. Her breath sounds are clear bilaterally and does not appear to be in respiratory distress. Differential diagnose include CHF exacerbation, pneumonia, pneumothorax, PE, ACS, arrhythmia, or other electrolyte/metabolic derangement. IV is established and laboratory studies were obtained. 12 Lead EKG: Normal sinus rhythm at a rate of 87. Normal axis. No ST segment elevations. QRS, NJ, and QTc interval within normal limits. Final impression: normal sinus rhythm without evidence of acute myocardial ischemia Laboratory studies were unremarkable. No significant electrolyte or metabolic derangement. No evidence of acute kidney injury. No significant anemia, leukocytosis, or thrombocytopenia. No transaminitis or hyperbilirubinemia. BNP and troponin nonelevated. COVID/flu/RSV swabs negative. Chest x-ray independently reviewed/interpreted by myself demonstrated no acute cardiopulmonary process. CT angiogram of the chest demonstrated no evidence of PE, pneumonia, or acute cardiopulmonary process. On reevaluation, patient states she feels well . She is able to ambulate without becoming dyspneic. Given her negative workup, I do believe she is stable for outpatient management with her PCP and front office representative. Return precautions were given including any new or concerning symptoms. Patient understands and agrees to the plan. FINAL IMPRESSION: #Acute dyspnea #History of CHF DISPOSITION: Discharged home CONDITION: Good Medical Records Medical records reviewed: Yes I reviewed the patient's medical records Lab Data Lab results reviewed: Yes I reviewed the patient's lab results Labs: Lab Results 04/29/25 04/29/25 Range/Units 12:00 13:24 WBC 6.0 (4.0-11.0) 10^3/uL RBC 3.84 L (4.20-5.40) 10^6/uL Hgb 11.4 L (12.0-16.0) g/dL Hct 35.4 L (36.0-48.0) % MCV 92.2 (81.0-99.0) fL MCH 29.7 (26.7-34.0) pg MCHC 32.2 (29.9-35.2) g/dL RDW 13.6 (11.0-15.0) % Plt Count 199 (150-450) 10^3/uL MPV 10.2 (9.5-13.5) fL Neut % (Auto) 63.2 (43.0-75.0) % Lymph % (Auto) 23.5 (20.5-60.0) % [place] % (Auto) 10.3 (1.7-12.0) % Eos % (Auto) 2.2 (0.9-7.0) % Baso % (Auto) 0.5 (0.2-2.0) % Neut # (Auto) 3.8 (1.4-6.5) 10^3/uL Lymph # (Auto) 1.4 (1.2-3.8) 10^3/uL [place] # (Auto) 0.6 (0.3-0.8) 10^3/uL Eos # (Auto) 0.1 (0.0-0.7) 10^3/uL Baso # (Auto) 0.0 (0.0-0.1) 10^3/uL Abs Immat Gran (auto) 0.02 (0.00-0.03) 10^3/uL Imm/Tot Granulo (auto) 0.3 (0.0-0.5) % Sodium 138 (136-145) mmol/L Potassium 3.5 (3.5-5.1) mmol/L Chloride 102 (98-107) mmol/L Carbon Dioxide 27.7 (21.0-32.0) mmol/L Anion Gap 11.8 BUN 13.0 (7.0-18.0) mg/dL Creatinine 0.83 (0.55-1.02) mg/dL Est GFR ( Amer) >60 (>=60 mL/min/1.73m^2) Est GFR (Non-Af Amer) >60 (>=60 mL/min/1.73m^2) BUN/Creatinine Ratio 15.7 Glucose 107 H (74-106) mg/dL Calcium 8.8 (8.5-10.1) mg/dL Total Bilirubin 0.3 (0.2-1.0) mg/dL AST 23 (15-37) U/L ALT 28 (14-59) U/L Alkaline Phosphatase 124 H (46-116) U/L Troponin I High Sens 8.4 (4.0-51.3) pg/mL NT-Pro-B Natriuret Pep 185.0 (<=1800.0) pg/mL Total Protein 6.3 L (6.4-8.2) g/dL Albumin 3.1 L (3.4-5.0) g/dL Globulin 3.2 g/dL Albumin/Globulin Ratio 1.0 Influenza Type A Ag Negative Influenza Type B Ag Negative RSV Antigen Not detected (NOT DETECTE) SARS-CoV-2 Ag (CV2AG) Negative (NEGATIVE) Imaging Data CT scan - chest: Attestation: I personally reviewed and interpreted this imaging study as follows: Radiologist's impression: ITS Impressions Chest X-Ray 04/29/25 12:15 IMPRESSION: No acute cardiopulmonary pathology. Impression dictated by: Bret Nogueira M.D. 04/29/2025 12:56 PM Dictation Location: [place] [address] Electronically authenticated by: [id number] Y Date: 04/29/2025 12:56 Chest CTA 04/29/25 13:05 IMPRESSION: No acute cardiopulmonary pathology. No evidence of pulmonary embolism. There is dependent atelectasis. Presumed respiratory secretions are noted in the trachea just above the alison. Impression dictated by: Bret Nogueira M.D. 04/29/2025 2:37 PM Dictation Location: [facility] Electronically authenticated by: [id number] Y Date: 04/29/2025 14:37 ECG Data Attestation: I personally reviewed and interpreted this ECG as follows: Discharge Plan Discharge Chief Complaint: Shortness of Breath/Dyspnea Clinical Impression: Dyspnea, Heart failure Patient Disposition: Home, Self-Care Time of Disposition Decision: 14:51 Condition: Good Mode of Transportation: Private Vehicle Prescriptions / Home Meds: No Action duloxetine 60 mg capsule,delayed release(DR/EC) 60 mg PO DAILY loratadine 10 mg tablet 10 mg PO DAILY aspirin [Dalton Chewable Aspirin] 81 mg tablet,chewable 81 mg PO DAILY gabapentin 100 mg capsule 200 mg PO Q12H levothyroxine 100 mcg tablet 100 mcg PO .ACB famotidine 20 mg tablet 20 mg PO DAILY atorvastatin 40 mg tablet 40 mg PO DAILY memantine 10 mg tablet 10 mg PO BID alprazolam 0.25 mg tablet 0.25 mg PO TID PRN (Reason: anxiety) Qty: 0 0RF Rx Instructions: If your anxiety is not relieved by your original 0.25 mg dose, Please take additional tablet (0.25 mg) to make it total of 0.5 mg every 8 hours as needed if your anxiety is not relieved by the original dose of 0.25 mg albuterol sulfate 2.5 mg /3 mL (0.083 %) solution for nebulization 2.5 mg inhalation Q8H PRN (Reason: shortness of breath or wheezing) bupropion HCl 150 mg tablet extended release 24 hr 150 mg PO DAILY lisinopril 5 mg tablet 5 mg PO DAILY hydrocodone-acetaminophen 5-325 mg tablet torsemide 10 mg tablet 10 mg PO BID Print Language: Kiswahili Instructions: Heart Failure (ED), Dyspnea (ED) Referrals: MK ORTEGA [Primary Care Provider, Internal Medicine] - 1 week Discharge Date/Time: 04/29/25 15:12
== END 2025-04-29 15:12 | disposition home or self-care (01) ==
PROVIDERS: Emergency Provider Student in an Organized Health Care Education/Training Program; PCP Internal Medicine
DX: I50.9 Heart failure, unspecified (principal); R06.00 Dyspnea, unspecified; J44.9 Chronic obstructive pulmonary disease, unspecified; Z87.891 Personal history of nicotine dependence; Z79.899 Other long term (current) drug therapy
CPT/HCPCS: 36415; 71045; 71275; 80053; 83880; 84484; 85025; 87420; 87804; 87811; 93005; 99285; Q9967